=== PATIENT | female | born 1995 | race Caucasian/White ===

== ENCOUNTER 2024-05-24 08:54 | Outpatient (OUT) | payer BC, SELFPAY ==
[2024-05-24 09:29] LABS: BOX Test Reference Lab UNITY; BOX Test Sent Out UNITY
[2024-05-24 09:30] LABS: Basophils Absolute Auto 0.1 10^3/uL (0.0-0.1); Basophils Percent Auto 0.7 % (0.2-2.0); Eosinophils Absolute Auto 0.4 10^3/uL (0.0-0.7); Eosinophils Percent Auto 3.9 % (0.9-7.0); Hematocrit 39.2 % (36.0-48.0); Hemoglobin 12.8 g/dL (12.0-16.0); Immature Granulocytes Abs Auto 0.02 10^3/uL (0.00-0.03); Immature Granulocytes Pct Auto 0.2 % (0.0-0.5); Lymphocytes Absolute Auto 2.3 10^3/uL (1.2-3.8); Lymphocytes Percent Auto 22.8 % (20.5-60.0); Mean Corpuscular HGB Conc 32.7 g/dL (29.9-35.2); Mean Corpuscular Volume 79.7 fL (81.0-99.0); Mean Platelet Volume 8.8 fL (9.5-13.5); Monocytes Absolute Auto 0.5 10^3/uL (0.3-0.8); Monocytes Percent Auto 4.8 % (1.7-12.0); Neutrophils Absolute Auto 6.7 10^3/uL (1.4-6.5); Neutrophils Percent Auto 67.6 % (43.0-75.0); Platelet Count 284 10^3/uL (150-450); Red Blood Count 4.92 10^6/uL (4.20-5.40); Red Cell Distribution Width 15.8 % (11.0-15.0); White Blood Count 9.9 10^3/uL (4.0-11.0)
[2024-05-24 09:40] LABS: Estimated Average Glucose 108 mg/dL; Glycohemoglobin A1C 5.4 % (4.5-6.2)
[2024-05-25 05:07] LABS: HIV Ab/p24 Ag Screen Non Reactive (Non Reactive)
[2024-05-25 06:44] LABS: HBsAg Screen Negative (Negative); HCV Ab Non Reactive (Non Reactive)
[2024-05-25 12:08] LABS: Rapid Plasma Reagin, Quant Non Reactive titer (NonRea<1:1); Rubella Antibodies, IgG 1.01 index (Immune >0.99)
== END 2024-05-24 08:55 | disposition home or self-care (01) ==
LOC: LAB 09:01
PROVIDERS: Visit Provider Obstetrics & Gynecology
DX: Z34.90 Encounter for supervision of normal pregnancy, unspecified, unspecified trimester (principal); Z36.0 Encounter for antenatal screening for chromosomal anomalies; N92.6 Irregular menstruation, unspecified
CPT/HCPCS: 36415; 80307; 83036; 85025; 86592; 86762; 86803; 86850; 86900; 86901; 87086; 87340; 87389

== ENCOUNTER 2024-05-27 10:20 | Outpatient (REF) | payer BC, SELFPAY ==
--- OUTSIDE RECORDS SUMMARY | 2024-05-28 10:38 | XMS_ITS | CCD ---
Author Organization [facility] Care Team Providers Care Radio Tower Technician Name Role Phone DR RORO GARNER Attending Unavailable PASCUAL, DR RORO Salazar Consulting Unavailable DR RORO GARNER Admitting Unavailable MISC, DR TOPETE Primary Care Unavailable Ann-Marie Romero Primary Care Physician NO FAMILY, PHYSICIAN Primary Care Provider Aurorava MD Presley Mccarthy Admit Provider MD Presley Ortega Attending Provider [phone] NONE, XXXX Primary Care Physician Unavailab Hosea Conklin Primary Care Physician Unavail able Presley Ortega Attending Unavailable Presley Ortega Admitting Unavailable NO FAMILY, PHYSICIAN Primary Care Unavailable REY ALAS Primary Care Physician [phone] Alva Jo Attending Unavailable Jagdish Dunn Attending Unavailable DAVINA ALAS Attending Unav ailable DAVINA ALAS Attending Unav ailable DAVINA ALAS Attending Unav ailable DAVINA ALAS Attending Unav ailable DAVINA ALAS Attending Unav ailable DAVINA ALAS Referring Unav ailable DAVINA ALAS Admitting Unav ailable Alva Jo Attending Unavailable DAVINA ALAS Attending Unav ailable DAVINA ALAS Attending Unav ailable Unavailable Primary Care Provider Unavailabl e Medications Current Medications Medication Drug Class(es) Dates Sig (Normalized) Sig (Original) acetaminophen 325 mg / butalbital 50 mg / caffeine 40 mg oral tablet (17 sources) Barbiturate, Central Nervous System Stimulant, Methylxanthine Start: 09-16-2020 take 1 tablet by mouth every four hours for headache APAP/butalbital/caf feine 325 mg-50 mg-40 mg Tab 1 tab(s), Oral, q4hr for headache, 12 tab(s), Refill(s) 0, [facility]/pharmacy #[id number], 165, cm, 09/15/20 22:47:00 EDT, Height/Length Dosing, 114, kg, 09/15/20 22:47:00 EDT, Weight Dosing Start Date: 09/16/20 Status: Ordered Albuterol (Eqv-ProAir HFA) 90 mcg/inh inhalation aerosol (6 sources) Start: 07-06-2023 take 1 puff(s) by inhalation every six hours Albuterol (Eqv-ProAir HFA) 90 mcg/inh inhalation aerosol puff(s), Inhalation, q6hr, Refill(s) 0 Start Date: 07/06/23 Status: Ordered amoxicillin 500 mg oral capsule (1 source) Penicillin-class Antibacterial Start: 04-18-2024 End: 04-25-2024 take 2 capsules by mouth every twelve hours amoxicillin 500 mg Cap 1,000 mg = 2 cap(s), Oral, q12hr, X 7 day(s), # 28 cap(s), Refills(s) 0, Pharmacy: [facility]/pharmacy #[id number], 165, cm, 04/18/24 11:46:00 EST, Height/Length Dosing, 124.5, kg, 04/18/24 11:46:00 EST, Weight Dosing Start Date: 04/18/24 Stop Date: 04/25/24 Status: Ordered atogepant 60 MG Oral Tablet [Qulipta] (1 source) Start: 07-21-2023 take 1 tablet by mouth once daily Qulipta 60 mg oral tablet 60 mg = 1 tab(s), Oral, Daily, # 30 tab(s), Refills(s) 3, Pharmacy: [facility]/pharmacy #[id number], 165.1, cm, 07/08/23 12:52:00 EDT, Height/Length Dosing, 127, kg, 07/08/23 12:52:00 EDT, Weight Dosing Start Date: 07/21/23 Status: Ordered cephalexin 500 mg oral capsule (1 source) Cephalosporin Antibacterial Start: 11-10-2021 End: 11-17-2021 take 1 capsule by mouth every twelve hours Keflex 500 mg Cap 500 mg = 1 cap(s), Oral, q12hr, X 7 day(s), # 14 cap(s), Refills(s) 0, Pharmacy: [facility]/pharmacy #[id number], 165.1, cm, 11/10/21 12:16:00 EDT, Height/Length Dosing, 128, kg, 07/17/21 9:33:00 EDT, Weight Dosing Start Date: 11/10/21 Stop Date: 11/17/21 Status: Ordered ciprofloxacin 500 mg oral tablet (6 sources) Quinolone Antimicrobial Start: 02-17-2022 take 1 tablet by mouth twice daily Cipro 500 mg Tab 500 mg = 1 tab(s), Oral, BID, # 14 tab(s), Refills(s) 0, Pharmacy: [facility]/pharmacy #[id number], 165.1, cm, 02/17/22 16:15:00 EST, Height/Length Dosing, 122, kg, 02/17/22 16:15:00 EST, Weight Dosing Start Date: 02/17/22 Status: Ordered cyclobenzaprine hydrochloride 10 mg oral tablet (17 sources) Muscle Relaxant Start: 12-15-2020 take 1 tablet by mouth three times daily as needed for pain cyclobenzaprine 10 mg Tab 10 mg = 1 tab(s), Oral, TID, PRN Muscle pain, # 12 caplet(s), Refills(s) 0, Pharmacy: [facility]/pharmacy #[id number], 165, cm, 12/15/20 1:59:00 EDT, Height/Length Dosing, 113, kg, 12/15/20 1:59:00 EDT, Weight Dosing Start Date: 12/15/20 Status: Ordered diclofenac sodium 0.01 mg/mg topical gel (2 sources) Nonsteroidal Anti-inflammatory Drug Start: 01-11-2023 End: 01-18-2023 apply 2 g topically four times daily for pain, then apply 8 g topically once daily for pain Voltaren Gel 1% Gel 2 gm, Topical, QID for pain for 7 day(s), 100 gm, Refill(s) 0, not to exceed 8 grams/day/single joint of upper extremities, [id number], 165.1, cm, 01/11/23 16:14:00 EST, Height/Length Dosing, 127, kg, 01/11/23 16:14:00 EST, Weight Dosing Start Date: 01/11/23 Stop Date: 01/18/23 Status: Ordered dicyclomine hydrochloride 10 mg oral capsule (5 sources) Anticholinergic Start: 10-17-2022 take 1 capsule by mouth four times daily as needed Bentyl 10 mg Cap 10 mg = 1 cap(s), Oral, QID, PRN Other (see comment), For abdominal cramping, # 12 cap(s), Refills(s) 0, Pharmacy: [facility]/pharmacy #[id number], 165, cm, 10/17/22 13:07:00 EDT, Height/Length Dosing, 123.3, kg, 10/17/22 13:07:00 EDT, Weight Dosing Start Date: 10/17/22 Status: Ordered Flonase 0.05 mg/inh nasal spray (14 sources) Start: 09-18-2020 take 1 spray(s) nasal route once daily Flonase 0.05 mg/inh nasal spray 1 spray(s), Nasal, Daily, 16 gram, Refill(s) 3, each nostril, [facility]/pharmacy #[id number], 165, cm, 09/18/20 9:51:00 EDT, Height/Length Dosing, 116, kg, 09/18/20 9:51:00 EDT, Weight Dosing Start Date: 09/18/20 Status: Ordered fluticasone propionate 0.05 mg/actuat metered dose nasal spray (3 sources) Corticosteroid Start: 09-18-2020 take 1 spray(s) nasal route once daily Flonase 0.05 mg/inh nasal spray 1 spray(s), Nasal, Daily, 16 gram, Refill(s) 3, each nostril, [facility]/pharmacy #[id number], 165, cm, 09/18/20 9:51:00 EDT, Height/Length Dosing, 116, kg, 09/18/20 9:51:00 EDT, Weight Dosing Start Date: 09/18/20 Status: Ordered ibuprofen 600 mg oral tablet (1 source) Nonsteroidal Anti-inflammatory Drug Start: 09-14-2021 take 600 mg by mouth every six hours Ibuprofen Active 600 MG PO Q6H September 14, 2021 12:00am 12 hr loratadine 5 mg / pseudoephedrine sulfate 120 mg extended release oral tablet (1 source) alpha-Adrenergic Agonist Start: 07-08-2023 End: 07-18-2023 loratadine-pseudoep hedrine 5 mg-120 mg ER Tab 1 tab(s), Oral, q12hr for 10 day(s), 20 tab(s), Refill(s) 0, [facility]/pharmacy #[id number], 165.1, cm, 07/08/23 12:52:00 EDT, Height/Length Dosing, 127, kg, 07/08/23 12:52:00 EDT, Weight Dosing Start Date: 07/08/23 Stop Date: 07/18/23 Status: Ordered meclizine hydrochloride 25 mg oral tablet (5 sources) Antiemetic Start: 07-08-2023 take 1 tablet by mouth three times daily as needed for dizziness meclizine 25 mg Tab 25 mg = 1 tab(s), Oral, TID, PRN for dizziness, # 15 tab(s), Refills(s) 0, Pharmacy: [facility]/pharmacy #[id number], 165.1, cm, 07/08/23 12:52:00 EDT, Height/Length Dosing, 127, kg, 07/08/23 12:52:00 EDT, Weight Dosing Start Date: 07/08/23 Status: Ordered metroNIDAZOLE 500 mg oral tablet (1 source) Nitroimidazole Antimicrobial Start: 02-17-2022 End: 02-24-2022 take 1 tablet by mouth every eight hours Flagyl 500 mg Tab 500 mg = 1 tab(s), Oral, q8hr, X 7 day(s), # 21 tab(s), Refills(s) 0, Pharmacy: [facility]/pharmacy #[id number], 165.1, cm, 02/17/22 16:15:00 EST, Height/Length Dosing, 122, kg, 02/17/22 16:15:00 EST, Weight Dosing Start Date: 02/17/22 Stop Date: 02/24/22 Status: Ordered Multi Vitamins oral tablet (3 sources) Start: 07-06-2023 Multi Vitamins oral tablet 1 tab(s), Oral, Daily, 30 tab(s), Refill(s) 0 Start Date: 07/06/23 Status: Ordered naproxen 500 mg oral tablet (20 sources) Nonsteroidal Anti-inflammatory Drug Start: 12-15-2020 take 1 tablet by mouth twice daily naproxen 500 mg oral enteric coated tablet 500 mg = 1 tab(s), Oral, BID, # 28 tab(s), Refills(s) 0, Pharmacy: [facility]/pharmacy #[id number], 165, cm, 12/15/20 1:59:00 EDT, Height/Length Dosing, 113, kg, 12/15/20 1:59:00 EDT, Weight Dosing Start Date: 12/15/20 Status: Ordered Start: 10-01-2020 take 1 tablet by lencho th twice daily as needed for pain Naprosyn 500 mg Tab 500 mg = 1 tab(s), Oral, BID, PRN for pain, # 20 tab(s), Refills(s) 0, Pharmacy: [facility]/pharmacy #[id number], 165.1, cm, 11/10/21 12:16:00 EDT, Height/Length Dosing, 128, kg, 07/17/21 9:33:00 EDT, Weight Dosing Start Date: 11/10/21 Status: Ordered phenazopyridine hydrochloride 200 mg oral tablet (1 source) Start: 11-10-2021 End: 11-12-2021 take 1 tablet by mouth three times daily Pyridium 200 mg Tab 200 mg = 1 tab(s), Oral, TID, X 2 day(s), # 6 tab(s), Refills(s) 0, Pharmacy: [facility]/pharmacy #[id number], 165.1, cm, 11/10/21 12:16:00 EDT, Height/Length Dosing, 128, kg, 07/17/21 9:33:00 EDT, Weight Dosing Start Date: 11/10/21 Stop Date: 11/12/21 Status: Ordered prochlorperazine 10 mg oral tablet (3 sources) Phenothiazine Start: 01-06-2023 End: 01-13-2023 take 1 tablet by mouth three times daily Compazine 10 mg oral tablet = 1 tab(s), Oral, TID, X 7 day(s), # 21 tab(s), Refills(s) 0 Start Date: 01/06/23 Stop Date: 01/13/23 Status: Ordered promethazine hydrochloride 25 mg oral tablet (15 sources) Phenothiazine Start: 06-04-2021 take 1 tablet by mouth every six hours promethazine 25 mg Tab 25 mg = 1 tab(s), Oral, q6hr, # 14 tab(s), Refills(s) 0, Pharmacy: [facility]/pharmacy #[id number], 165, cm, 06/04/21 14:38:00 EDT, Height/Length Dosing, 123, kg, 06/04/21 14:38:00 EDT, Weight Dosing Start Date: 06/04/21 Status: Ordered tiZANidine 4 mg oral tablet (2 sources) Central alpha-2 Adrenergic Agonist Start: 01-11-2023 End: 01-16-2023 take 1 tablet by mouth every eight hours Zanaflex 4 mg Tab 4 mg = 1 tab(s), Oral, q8hr, X 5 day(s), # 15 tab(s), Refills(s) 0, Pharmacy: [facility]/pharmacy #[id number], 165.1, cm, 01/11/23 16:14:00 EST, Height/Length Dosing, 127, kg, 01/11/23 16:14:00 EST, Weight Dosing Start Date: 01/11/23 Stop Date: 01/16/23 Status: Ordered Ventolin HFA 90 mcg/inh Aerosol-Adpt (1 source) Start: 04-18-2024 take 1 puff(s) by inhalation every six hours for wheezing Ventolin HFA 90 mcg/inh Aerosol-Adpt 1 puff(s), Inhalation, q6hr for wheezing, 18 gram, Refill(s) 0, [facility]/pharmacy #[id number], 165, cm, 04/18/24 11:46:00 EST, Height/Length Dosing, 124.5, kg, 04/18/24 11:46:00 EST, Weight Dosing Start Date: 04/18/24 Status: Ordered Zofran ODT 4 mg Tab-Dis (20 sources) Start: 10-17-2022 take 1 tablet by mouth every eight hours as needed for nausea Zofran ODT 4 mg Tab-Dis 4 mg = 1 tab(s), Oral, q8hr, PRN Nausea/Vomiting, # 16 tab(s), Refills(s) 0, [id number], cm, 10/17/22 13:07:00 EDT, Height/Length Dosing, 123.3, kg, 10/17/22 13:07:00 EDT, Weight Dosing Start Date: 10/17/22 Status: Ordered Start: 02-17-2022 take 1 tablet by lencho every six hours as needed for nausea Zofran ODT 4 mg Tab-Dis 4 mg = 1 tab(s), Oral, q6hr, PRN Nausea/Vomiting, # 12 tab(s), Refills(s) 0, [id number], 165.1, cm, 02/17/22 16:15:00 EST, Height/Length Dosing, 122, kg, 02/17/22 16:15:00 EST, Weight Dosing Start Date: 02/17/22 Status: Ordered Start: 02-25-2021 take 1 tablet by [facility] every eight hours Zofran ODT 4 mg Tab-Dis 4 mg = 1 tab(s), Oral, q8hr, # 12 tab(s), Refills(s) 0, [id number], 165, cm, 02/24/21 23:21:00 EST, Height/Length Dosing, 112, kg, 02/24/21 23:21:00 EST, Weight Dosing Start Date: 02/25/21 Status: Ordered Start: 09-16-2020 take 1 tablet by [facility] every eight hours Zofran ODT 4 mg Tab-Dis 4 mg = 1 tab(s), Oral, q8hr, # 10 tab(s), Refills(s) 0, Pharmacy: [facility]/pharmacy #[id number], 165, cm, 09/15/20 22:47:00 EDT, Height/Length Dosing, 114, kg, 09/15/20 22:47:00 EDT, Weight Dosing Start Date: 09/16/20 Status: Ordered Completed/Discontinued Medications Medication Drug Class(es) Dates Sig (Normalized) Sig (Original) sodium chloride 0.111 meq/ml nasal spray (17 sources) Start: 09-18-2020 [place] Saline Mist 0.65% nasal spray 2 spray(s), Nasal, QID, 1 EA, Refill(s) 4, [facility]/pharmacy #[id number], 165, cm, 09/18/20 9:51:00 EDT, Height/Length Dosing, 116, kg, 09/18/20 9:51:00 EDT, Weight Dosing Start Date: 09/18/20 Status: Ordered Start: 09-18-2020 [place] Saline Mis t 0.65% nasal spray 2 spray(s), Nasal, QID, 1 EA, Refill(s) 4, [id number], 165, cm, 09/18/20 9:51:00 EDT, Height/Length Dosing, 116, kg, 09/18/20 9:51:00 EDT, Weight Dosing Start Date: 09/18/20 Status: Ordered SUMAtriptan 25 mg oral tablet (6 sources) Serotonin-1b and Serotonin-1d Receptor Agonist Start: 07-06-2023 SUMAtriptan 25 mg Ta b 25 mg = 1 tab(s), Oral, Daily, PRN for migraine headache, may repeat dose after 2 hours up to a maximum of 200 mg in 24 hours, # 9 tab(s), Refills(s) 1, [id number] 165, cm, 07/06/23 8:52:00 EDT, Height/Length Dosing, 125.8, kg, 07/06/23 8:52:00 EDT, Weight Dosing Start Date: 07/06/23 Status: Ordered Problems Active Problems Problem Classification Problem Date Documented Da te Episodic/Chronic Abdominal pain (2 sources) Abdominal pain; Translations: [Unspecified abdominal pain] Onset: 02-17-2022 Episodic Asthma (20 sources) Asthma 08-02-2013 Chronic Conditions associated with dizziness or vertigo (20 sources) Dizziness; Translations: [Dizziness and giddiness] Onset: 07-08-2023 09-30-2020 Episodic Headache; including migraine (13 sources) Migraine; Translations: [Migraine, unspecified, not intractable, without status migrainosus] Onset: 01-06-2023 Chronic Headache; including migraine (2 sources) Headache; Translations: [Headache, unspecified] Onset: 01-08-2023 Episodic Malaise and fatigue (1 source) Weakness; Translations: [WEAKNESS] Onset: 02-16-2021 Episodic Menstrual disorders (1 source) Missed period; Translations: [Irregular menstruation, unspecified] 05-17-2024 Chronic Nausea and vomiting (4 sources) Nausea with vomiting, unspecified; Translations: [Nausea and vomiting] Onset: 02-16-2021 Episodic Noninfectious gastroenteritis (1 source) Noninfectious enteritis; Translations: [Noninfective gastroenteritis and colitis, unspecified] Onset: 02-17-2022 Episodic Other aftercare (20 sources) Surgical follow-up 10-03-2020 Episodic Other and unspecified benign neoplasm (1 source) Melanocytic nevus; Translations: [Melanocytic nevi, unspecified] Onset: 10-10-2023 Episodic Other and unspecified benign neoplasm (3 sources) Benign neoplasm of soft tissue 10-10-2023 Episodic Other complications of (4 sources) Other specified related conditions, first trimester; Translations: [OTH SPEC PREG RELATED COND 1ST TRI] Onset: 02-11-2021 Episodic Other complications of (1 source) Vomiting of ; Translations: [Vomiting of , unspecified] Episodic Other complications of (1 source) Complication of , childbirth and/or the puerperium; Translations: [Other specified diseases and conditions complicating childbirth] Episodic Other connective tissue disease (2 sources) Pain of right lower leg; Translations: [Pain in right lower leg] Onset: 07-17-2021 Episodic Other connective tissue disease (2 sources) Pain of left lower leg; Translations: [Pain in left lower leg] Onset: 07-17-2021 Episodic Other endocrine disorders (20 sources) Polycystic ovary syndrome 04-16-2019 Chronic Other female genital disorders (2 sources) History of past delivery; Translations: [Status post vaginal delivery] 09-14-2021 Episodic Other gastrointestinal disorders (1 source) Diarrhea; Translations: [Diarrhea, unspecified] Onset: 10-17-2022 Episodic Other liver diseases (20 sources) Enzyme level - finding 11-12-2019 Episodic Other nutritional; endocrine; and metabolic disorders (6 sources) Body mass index 40+ - severely obese; Translations: [Body mass index (BMI) 40.0-44.9, adult] Onset: 05-13-2021 Chronic Other nutritional; endocrine; and metabolic disorders (1 source) Morbid obesity; Translations: [Morbid (severe) obesity due to excess calories] Onset: 07-06-2023 Chronic Other and delivery including normal (3 sources) Normal ; Translations: [Encounter for supervision of normal , unspecified, unspecified trimester] Onset: 06-04-2021 Episodic Other skin disorders (20 sources) Mass of skin 02-13-2020 Episodic Other upper respiratory infections (3 sources) Acute pharyngitis; Translations: [Acute pharyngitis, unspecified] Onset: 05-13-2021 Episodic Otitis media and related conditions (20 sources) Otitis media 09-30-2020 Episodic Pneumonia (except that caused by tuberculosis or sexually transmitted disease) (1 source) Pneumonia; Translations: [Pneumonia, unspecified organism] Onset: 04-18-2024 Episodic Residual codes; unclassified (1 source) 9 weeks gestation of ; Translations: [9 WEEKS GESTATION OF ] Onset: 02-16-2021 Episodic Residual codes; unclassified (1 source) General finding of observation of patient; Translations: [Other general symptoms and signs] Onset: 05-13-2021 Episodic Residual codes; unclassified (1 source) Gestation period, 27 weeks; Translations: [27 weeks gestation of ] Episodic Residual codes; unclassified (1 source) Gestation period, 32 weeks; Translations: [32 weeks gestation of ] Episodic Residual codes; unclassified (1 source) Gestation period, 40 weeks; Translations: [40 weeks gestation of ] 09-13-2021 Episodic Residual codes; unclassified (1 source) 40 weeks gestation of ; Translations: [ state, incidental] 09-14-2021 Episodic Residual codes; unclassified (1 source) Patient encounter status; Translations: [Other specified health status] Onset: 07-06-2023 Episodic Screening and history of mental health and substance abuse codes (1 source) Personal history of nicotine dependence; Translations: [PERSONAL HISTORY OF NICOTINE DEPEND] Onset: 02-16-2021 Episodic Sprains and strains (1 source) Injury of muscle and tendon at neck level; Translations: [Strain of muscle, fascia and tendon at neck level, initial encounter] Onset: 01-11-2023 Episodic Substance-related disorders (1 source) Smoker 04-18-2024 Chronic Comment on above: Added secondary to d ocumentation in Social History. Unclassified (1 source) Obesity complicating , third trimester; Translations: [Obesity complicating , third trimester] Onset: 09-11-2021 Urinary tract infections (1 source) Urinary tract infectious disease; Translations: [Urinary tract infection, site not specified] Onset: 11-10-2021 Episodic Past or Other Problems Problem Classification Problem Date Documented Da te Episodic/Chronic Unclassified (20 sources) Onset: 11-01-2020 Resolved: 11-14-2021 06-13-2021 Results Test Name Value Interpretation Reference Range Facility BOX TESTon 05-24-2024 BOX TEST SENT OUT [facility] BOX1 [facility] BOX2 05[facility]24[facility]) Ql (U)o n 05-22-2024 Interpretation and review of laboratory results Abnormal [facility] Preg Test, Ur Positive Negative [facility] US Pelvis transvaginalon EXAM: US OB TRANSVAGINAL HISTORY: Dating. LMP unknown. COMPARISON: None available. TECHNIQUE: Two-dimensional transvaginal grayscale ultrasound imaging of the pelvis was performed. Color Doppler evaluation of the ovaries was also performed. FINDINGS: The uterus demonstrates a normal homogeneous echotexture. The cervix measures 5.7 cm in length and the cervical os is closed. There are multiple nabothian cysts within the cervix. The right ovary measures 4.1 x 0.9 x 2.6 cm and demonstrates a normal echotexture. There is normal color Doppler flow. The left ovary is not visualized. No fluid is present within the cul-de-sac. There is a single, live intrauterine gestation identified with a heart rate of 169 beats per minute and a crown-rump length measurement of 4.2 cm, correlating to a gestational age of 11 weeks 1 days (+/- 7 days). There is no subchorionic hemorrhage visualized. A yolk sac is visualized. IMPRESSION: 1. Single, live intrauterine gestation with today's ultrasound measurements correlating to a gestational age of 11 weeks 1 days (+/- 7 days). JANNY by today's ultrasound is 11/16/2024. 2. Normal color Doppler evaluation of the right ovary, the left ovary was not visualized. Electronically Signed:Electronicall y signed by UNA DARNELL II, MD, PHD at 20-May-2024 10:38:05 PM [facility] Una Darnell MD - 05/20/2024 EXAM: US OB TRANSVAGINAL HISTORY: Dating. LMP unknown. COMPARISON: None available. TECHNIQUE: Two-dimensional transvaginal grayscale ultrasound imaging of the pelvis was performed. Color Doppler evaluation of the ovaries was also performed. FINDINGS: The uterus demonstrates a normal homogeneous echotexture. The cervix measures 5.7 cm in length and the cervical os is closed. There are multiple nabothian cysts within the cervix. The right ovary measures 4.1 x 0.9 x 2.6 cm and demonstrates a normal echotexture. There is normal color Doppler flow. The left ovary is not visualized. No fluid is present within the cul-de-sac. There is a single, live intrauterine gestation identified with a heart rate of 169 beats per minute and a crown-rump length measurement of 4.2 cm, correlating to a gestational age of 11 weeks 1 days (+/- 7 days). There is no subchorionic hemorrhage visualized. A yolk sac is visualized. IMPRESSION: 1. Single, live intrauterine gestation with today's ultrasound measurements correlating to a gestational age of 11 weeks 1 days (+/- 7 days). JANNY by today's ultrasound is 11/16/2024. 2. Normal color Doppler evaluation of the right ovary, the left ovary was not visualized. Electronically Signed:Cuauhtemoc darling signed by UNA DARNELL II, MD, PHD at 20-May-2024 10:38:05 PM [facility] US Pelvis transvaginalOrdere d By: Una Darnell on 05-20-2024 [facility] Work Phone: US OB TRANSVAGINALon [phone] US OB TRANSVAGINAL EXAM: US OB TRANSVAGINAL HISTORY: Dating. LMP unknown. COMPARISON: None available. TECHNIQUE: Two-dimensional transvaginal grayscale ultrasound imaging of the pelvis was performed. Color Doppler evaluation of the ovaries was also performed. FINDINGS: The uterus demonstrates a normal homogeneous echotexture. The cervix measures 5.7 cm in length and the cervical os is closed. There are multiple nabothian cysts within the cervix. The right ovary measures 4.1 x 0.9 x 2.6 cm and demonstrates a normal echotexture. There is normal color Doppler flow. The left ovary is not visualized. No fluid is present within the cul-de-sac. There is a single, live intrauterine gestation identified with a heart rate of 169 beats per minute and a crown-rump length measurement of 4.2 cm, correlating to a gestational age of 11 weeks 1 days (+/- 7 days). There is no subchorionic hemorrhage visualized. A yolk sac is visualized. IMPRESSION: 1. Single, live intrauterine gestation with today's ultrasound measurements correlating to a gestational age of 11 weeks 1 days (+/- 7 days). JANNY by today's ultrasound is 11/16/2024. 2. Normal color Doppler evaluation of the right ovary, the left ovary was not visualized. Electronically Signed:Electronicall y signed by UNA DARNELL II, MD, PHD at 20-May-2024 10:38:05 PM [facility] Normal Not Available Comment on above: Order Comment: US OB TRANSVAGINAL No LMP recorded. US Pelvis transvaginalon Radiology Study observation (narrative) [facility] Ambulatory [facility] Summaryon 0 04-27-2024 Ambulatory Visit Summary Ambulatory Visit Summary SABRINA TOVAR :1995 Visit Date:04/27/2024 Ambulatory Visit Instructions Your Diagnosis asthma BMI 45.0-49.9, adult Morbid obesity Your Care Team Attending Physician - JOAQUÍN RODRIGUEZ Primary Care Physician - JOAQUÍN RODRIGUEZ This Is Your Medications List Non-Formulary Medication ( Vitamins) albuterol (Albuterol (Eqv-ProAir HFA) 90 mcg/inh inhalation aerosol) albuterol (Ventolin HFA 90 mcg/inh Aerosol-Adpt) albuterol-ipratropiu m (DuoNeb 2.5 mg-0.5 mg/3 mL Soln-Inh) meclizine (meclizine 25 mg Tab) predniSONE (predniSONE 10 mg Tab) Procedures Performed Cholecystectomy, denies. Discharge Vitals Heart Rate (Peripheral) 82 Respiratory Rate 16 Blood Pressure 112/82 Height 165 cm Height 65 in Weight 126 kg Weight 277.782 lb BMI 46.28 Medications What How Much When Why Instructions New albuterol-ipratropiu m (DuoNeb 2.5 mg-0.5 mg/ 3 mL Soln-Inh) 3 Milliliter Inhalation 4 times a day asthma Refills: 2 Pickup at [facility]/pharmacy #[id number] New predniSONE (predniSONE 10 mg Tab) See instructions asthma take 2 tabs by mouth for 3 days, then take 1 tab by mouth for 3 days, then stop Pickup at [facility]/pharmacy #[id number] Unchanged albuterol (Albuterol (Eqv-ProAir HFA) 90 mcg/ inh inhalation aerosol) Inhalation Every 6 hours Unchanged albuterol (Ventolin HFA 90 mcg/ inh Aerosol-Adpt) 1 Puffs Inhalation Every 6 hours as needed for for wheezing Unchanged meclizine (meclizine 25 mg Tab) 1 Tablets By Mouth 3 times a day as needed for for dizziness Unchanged Non-Formulary Medication ( Vitamins) Pharmacy Information [facility]/pharmacy #[id number]: [address] [place], [place] [phone] Allergies No Known Allergies Problems Ongoing - Any problem that you are currently receiving treatment for. asthma Bilateral otitis media Complicated migraine Dizziness Elevated transaminase level Mass of skin Migraine Nevus Polycystic ovary syndrome Smoker Visit for suture removal Historical - Any problem that you are no longer receiving treatment for. BMI 40.0-44.9, adult Patient Survey You may receive a survey via text or e-mail asking about your office visit. Please share your experience with us by completing your survey. We appreciate your feedback and thank you for choosing us for your care. Normal [facility] Office/Clini c Noteon 04-27-2024 Family Medicine Office/Clinic Note Family Medicine Office/Clinic Note HPI Staff Patient is a 28 y.o. female presenting for wheezing JASON 10/10/23 H/A- start magnesium and Ubrelvy. MRI ordered 10/19/23- MRI head completely normal Last routine labs: 01/11/23 smoker status: never Pap (21-64yo): thinks she is 8 weeks , first appt with Dr. Charles 05/18/24. 3 Home Tests came back positive. OBGYN: Dr. Charles flu vaccine status: DUE Concerns today: Patient thinks she is . ER for cough, congestion. fatigue 04/18/24. Viral swabs negative, rx'd albuterol inhaler and amox BID x7 days. Finished full course of amox. Albuterol Inhaler- using prn. Right now using BID. Feels tightness in chest, hard to breathe, has to focus to take a deep breath. I have a little bit of a cough it is very infrequent but when I do cough it is always a dry cough. States when she coughs she feels stuff rattling in her chest but nothing comes up, cannot take cold medicine due to thinking she might be . History of Present Illness Sabrina is a 28 year old female who was in the ED on April 18 for pneumonia. She was treated with a course of amxicillin and an albuterol inhaler. Today she feels like she is having difficulty taking a deep breath, she feels SOB, and she has a non productive cough. She feels like she has improved some since taking the abx. She is 8 weeks at this time so intervention is limited today. She has not been seen by OB yet. I am going to give her a very short course of prednisone and we discussed this at length - prior to her taking it, she is going to consult OB. Additionally, I gave her a nebulizer machine and showed her how to use it. She will use this q6H prn SOB. She stated understanding. Staff HPI reviewed and accurate Review of Systems PHQ Score Initial Depression Screen Score: 0 SCORE Physical Exam Vitals & Measurements HR: 82(Peripheral) RR: 16 BP: 112/82 SpO2: 99% HT: 65 in HT: 165 cm WT: 126 kg WT: 277.782 lb BMI: 46.28 lungs: diminished t/o. right posterior upper lobe sonorous wheeze w/ expiration. mild SOB at rest Assessment/Plan 1. asthma (J45.909: Unspecified asthma, uncomplicated) nebulizer as needed prednisone as prescribed she will consult OB prior to starting prednisone fu 1 w if no improvement - may have to consider long acting inhaler Ordered: albuterol-ipratropiu m, 3 mL, Inhalation, QID, 30 EA, Refill(s) 2, [id number], 165, cm, 04/27/24 9:52:00 EDT, Height/Length Dosing, 126, kg, 04/27/24 9:52:00 EDT, Weight Dosing predniSONE, See Instructions, take 2 tabs by mouth for 3 days, then take 1 tab by mouth for 3 days, then stop, # 9 tab(s), Refills(s) 0, [id number] 165, cm, 04/27/24 9:52:00 EDT, Height/Length Dosing, 126, kg, 04/27/24 9:52:00 EDT, Weight Dosing BMI 45.0-49.9, adult (Z68.42: Body mass index [BMI] 45.0-49.9, adult) stable Morbid obesity (E66.01: Morbid (severe) obesity due to excess calories) Ordered: sumatriptan, 25 mg = 1 tab(s), Oral, Daily, PRN for migraine headache, may repeat dose after 2 hours up to a maximum of 200 mg in 24 hours, # 9 tab(s), Refills(s) 1, [id number], 165, cm, 07/06/23 8:52:00 EDT, Height/Length Dosing, 125.8, kg, 06/15... Follow-up No qualifying data available Problem List/Past Medical History Ongoing asthma Bilateral otitis media Complicated migraine Dizziness Elevated transaminase level Mass of skin Migraine Nevus Polycystic ovary syndrome Smoker Visit for suture removal Historical BMI 40.0-44.9, adult Procedure/Surgical History Cholecystectomy, denies. Medications Albuterol (Eqv-ProAir HFA) 90 mcg/inh inhalation aerosol, Inhalation, q6hr DuoNeb 2.5 mg-0.5 mg/3 mL Soln-Inh, 3 mL, Inhalation, QID, 2 refills meclizine 25 mg Tab, 25 mg= 1 tab(s), Oral, TID, PRN predniSONE 10 mg Tab, See Instructions Vitamins Ventolin HFA 90 mcg/inh Aerosol-Adpt, 1 puff(s), Inhalation, q6hr, PRN Allergies No Known Allergies Social History Alcohol - Denies Alcohol Use, 04/16/2019 Past, 1-2 times per month, 04/27/2024 Substance Abuse - Denies Substance Abuse, 11/19/2016 Never, 04/27/2024 Tobacco - Denies Tobacco Use, 04/16/2019 Never (less than 100 in lifetime) Tobacco Use:. Never Smokeless Tobacco Use:. Household tobacco concerns: No., 04/27/2024 Family History Acute myocardial infarction: Mother. Cervical cancer: Mother. Diabetes mellitus type 2: Mother. Immunizations Vaccine Date Status Comments influenza virus vaccine, inactivated - Not Given Patient Refuses diphtheria/pertussis , acel/tetanus adult 09/13/2021 Recorded SARS-CoV-2 (COVID-19) mRNA-1273 vaccine 10/09/2020 Recorded 2023-01-14: TPVAL diphtheria/pertussis , acel/tetanus adult 09/29/2020 Given (L) deltoid influenza virus vaccine, inactivated 11/26/2011 Recorded influenza virus vaccine, inactivated 02/12/2004 Recorded influenza virus vaccine, inactivated 03/01/2003 Recorded varicella virus vac (more content not included)... Normal [facility] Comment on above: Result Comment: Elec tronically Signed By: JOAQUÍN RODRIGUEZ\.br\Date and Time Signed: 04/27/24 10:37 EDT ED Clinical Summaryon 2024 ED Clinical Summary ED Clinical Summary [place] [id number] ED Clinical Summary Person Information Name: SABRINA TOVAR [place] Age: 28 Years : 1995 Sex: Female Language: Serbian PCP: JOAQUÍN RODRIGUEZ Marital Status: Phone: [phone] Visit Id: Visit Reason: Weakness or fatigue; Sinus Pain/Congestion; Cough; CONGESTION - COUGH - POSS WHEEZING Speciality: Acuity: 4 Enc Type: Emergency Med Service: Emergency Arrival: 04/18/2024 11:36:25 Discharge: 04/18/2024 14:09:55 LOS: 000 02:33 Checkin: 04/18/2024 11:36:25 Checkout: 04/18/2024 14:09:55 Dispo Type: Home (Routine DC) EVENTS: Event Name Event Status Request Date/Time Start Date/Time Complete Date/Time Arrive Complete 04/18/2024 11:36:25 04/18/2024 11:36:25 04/18/2024 11:36:25 Document Home Meds Request 04/18/2024 11:36:25 Triage Complete 04/18/2024 11:36:25 04/18/2024 11:46:16 04/18/2024 11:46:16 Registration Complete 04/18/2024 11:40:34 04/18/2024 11:40:34 04/18/2024 11:40:34 Reg Complete Request 04/18/2024 11:40:34 Reg Bed Request Complete 04/18/2024 11:40:34 04/18/2024 11:40:34 04/18/2024 11:40:34 Dr Exam Complete 04/18/2024 11:40:43 04/18/2024 11:40:43 04/18/2024 11:40:43 Registration Complete 04/18/2024 11:40:43 04/18/2024 11:41:08 04/18/2024 11:41:17 Bed Assign Complete 04/18/2024 11:41:08 04/18/2024 11:41:08 04/18/2024 11:41:08 RN Exam Complete 04/18/2024 11:41:08 04/18/2024 12:05:06 04/18/2024 12:05:06 Dr Exam Complete 04/18/2024 11:41:17 04/18/2024 11:41:17 04/18/2024 11:41:17 Registration Complete 04/18/2024 11:41:17 04/18/2024 11:41:37 04/18/2024 11:41:37 Dr Exam Complete 04/18/2024 11:41:34 04/18/2024 11:41:34 04/18/2024 11:41:34 EKG Cancel 04/18/2024 11:45:16 04/18/2024 11:49:48 Pending Labs Complete 04/18/2024 11:59:16 04/18/2024 13:43:13 Swab Complete 04/18/2024 11:59:16 04/18/2024 13:39:50 Lab Complete 04/18/2024 11:59:16 04/18/2024 13:43:13 Discharge Complete 04/18/2024 13:47:36 04/18/2024 14:10:02 04/18/2024 14:10:02 Transfer Complete 04/18/2024 14:10:02 04/18/2024 14:10:02 04/18/2024 14:10:02 ADDRESS: [address] [place] [id number] PHYS DOC NOTES: MEDICAL INFORMATION: Prescriptions Given: New Medications [id number] [address] [place], [place] [id number], [phone] amoxicillin (amoxicillin 500 mg Cap) 2 Capsules By Mouth every 12 hours for 7 Days. Refills: 0. Medications to Continue with No Changes Other Medications albuterol (Albuterol (Eqv-ProAir HFA) 90 mcg/inh inhalation aerosol) Inhalation every 6 hours. meclizine (meclizine 25 mg Tab) 1 Tablets By Mouth 3 times a day as needed for dizziness. Refills: 0. naproxen (Naprosyn 500 mg Tab) 1 Tablets By Mouth 2 times a day as needed for pain. Refills: 0. sumatriptan (SUMAtriptan 25 mg Tab) 1 Tablets By Mouth every day as needed for migraine headache. may repeat dose after 2 hours up to a maximum of 200 mg in 24 hours. Refills: 1. PATIENT EDUCATION INFORMATION: Instructions: Community-Acquired Pneumonia, Adult, Fimu-da-Piir Follow up: With: Address: When: REY ALAS [address] [place] [address] Business (1) In 3 days 04/21/2024 Comments: Call Dr for diagnosis based follow up DIAGNOSIS: Pneumonia Normal [facility] ED Note-Physicianon 04-19-19 ED Note-Physician ED Note-Physician Basic Information Time Seen: Mark Jackman PA-C 04/18/2024 11:40 Chief Complaint cold for 1 week, getting worse. cough, congestion and fatigue 6wks ob History of Present Illness Patient is a 28 year old female with a PMH of asthma, migraine and PCOS presenting with worsening cough, congestion and fatigue for the last week. Patient states she is currently 6 weeks . Patient has tried Tylenol without any relief of her symptoms. Patient says her cough has been worse but denied producing any sputum. Patient denies any fever, chills, headache, abdominal pain and ear pain. Patient is worried about her increasing congestion and fatigued. Patient states she ran out of her inhaler two days ago but her inhaler has not helped her symptoms. No other aggravating or relieving factors no other associated symptoms no other prior treatments or complaints. Review of Systems No other aggravating or relieving factors no other associated symptoms no other prior treatments or complaints. Family: Reviewed and noncontributory Social: lives at home Review of systems negative unless otherwise specified in the HPI. Physical Exam Vitals & Measurements T: 36.7 ???C(Oral) HR: 106(Peripheral) RR: 22 BP: 144/94 SpO2: 98% HT: 165 cm WT: 124.5 kg BMI: 45.73 General: The patient appears well and in no apparent distress. Patient is resting comfortably in chair. Skin: Warm, dry, no pallor noted. Head: Normocephalic, atraumatic Neck: No JVD Eye: PERRLA, EOMI ENT: Moist mucus membranes Cardiovascular: Regular rate normal peripheral perfusion Respiratory: No respiratory distress no accessory muscle use, Afebrile lung sounds clear to auscultation Chest Wall: no deformity Musculoskeletal: normal ROM, no deformity, no swelling GI: Soft no obvious distention. No rebound or rigidity. No guarding. No tenderness. Neurological: A&O moves all extremities equal strength and symmetry Psychiatric: Cooperative and appropriate Medical Decision Making MEDICAL DECISION MAKING Number and Complexity of Problems Differential Diagnosis: [] [facility] Data External documents reviewed: [] My EKG interpretation: [] My CT interpretation: [] My X-ray interpretation: [] My Ultrasound interpretation: [] Decision rules/scores evaluated: [] Discussed with: [] Treatment and Disposition ED Course: 28-year-old female reports Emergency Department with concerns of cough and congestion. Has been on for over a week. Reports that she has not had any fevers. Reports that she is only been taking Tylenol as she is approximately 6 weeks . Is concerned for possible pneumonia. Does not want an x-ray. Denies any allergies. Exam the patient is rather benign. Due to concerns we do some swab. Viral swabs are negative. Due to lack of symptoms, discussed likely pneumonia. Patient was prescribed her albuterol inhaler as well as amoxicillin for antibiotic coverage. She was understanding. Follow-up with your primary care provider in 3 to 5 days. If symptoms worsen, do not improve, or new symptoms arise please report back to emergency department for further evaluation. The patient was understanding and agreeable to plan moving forward. Mark Fitzpatrick PA-C had a [id number] interaction with the patient. I personally performed a physical exam and medical decision making. I have verified the documentation by the student as accurately representing the information obtained. Shared decision making: [] Code status: [] Assessment/Plan Pneumonia (J18.9: Pneumonia, unspecified organism) Orders: albuterol, 1 puff(s), Inhalation, q6hr for wheezing, 18 gram, Refill(s) 0, [id number], 165, cm, 04/18/24 11:46:00 EST, Height/Length Dosing, 124.5, kg, 04/18/24 11:46:00 EST, Weight Dosing amoxicillin, 1,000 mg = 2 cap(s), Oral, q12hr, X 7 day(s), # 28 cap(s), Refills(s) 0, [id number], 165, cm, 04/18/24 11:46:00 EST, Height/Length Dosing, 124.5, kg, 04/18/24 11:46:00 EST, Weight Dosing Influenza A&B Ag Rapid COVID Antigen ([facility]) Disposition Plan Patient Discharge Condition stable Discharge Disposition to home Discharge Prescription List Prescriptions amoxicillin 500 mg Cap, 1000 mg= 2 cap(s), Oral, q12hr Ventolin HFA 90 mcg/inh Aerosol-Adpt, 1 puff(s), Inhalation, q6hr, PRN Follow-up With When Contact Information REY ALAS In 3 days 04/21/2024 EST [address] [facility] [address] [place] [address]- Business (1) Additional Instructions: Call Dr for diagnosis based follow up Patient Education Community-Acquired Pneumonia, Adult, Nnma-ta-Ipaf Attestation Patient seen and evaluated by the physician microbiology lab assistant. Attending physician was present in the emergency department and supervised care. This visit was performed by both the physician and an APC. I performed all aspects of the MDM as documented. This report was transcribed using voice recognition software. Every effo (more content not included)... Normal [facility] Comment on above: Result Comment: Elec tronically Signed By: Alva Jo M.D.\.br\Date and Time Signed: 04/18/24 18:02 EST\.br\Electronically Co-Signed By: Mark Jackman PA-C\.br\Date and Time Co-Signed: 04/18/24 16:19 EST ED Patient Summaryon 025 ED Patient Summary ED Patient Summary [address] [address] Patient Discharge Instructions Person Information Name: SABRINA TOVAR Princess Age: 28 Years Arrival Date: 04/18/2024 11:36:25 Discharge Diagnosis: Pneumonia Primary Care Physician: JOAQUÍN RODRIGUEZ Provider Information Primary Provider: Alva Jo M.D. Advanced Pathology Technologist:Mark Jackman PA-C. The exam and treatment you received in the Emergency Department were for an urgent problem and are not intended as complete care. It is important that you follow up with a doctor, nurse practitioner, or physician???s microbiology lab assistant for ongoing care. If your symptoms become worse or you do not improve as expected and you are unable to reach your usual health care provider, you should return to the Emergency Department. We are available 24 hours a day. SABRINA TOVAR has been given the following list of patient education materials, prescriptions and follow-up instructions: Follow-up Instructions: With: Address: When: REY ALAS [address] [place] [address] Business (1) In 3 days 04/21/2024 Comments: Call Dr for diagnosis based follow up In the event that this physician does not participate in your insurance network, please consult with your insurance company to find a nearby participating provider. Patient Education Materials: Community-Acquired Pneumonia, Adult, Icdp-px-Qkhu A MESSAGE TO ALL PATIENTS REGARDING OPIOIDS PRESCRIPTION OPIOIDS: WHAT YOU NEED TO KNOW Prescription opioids can be used to help relieve hizhegho-ie-zhudds pain and are often prescribed following a surgery or injury, or for certain health conditions. These medications can be an important part of the treatment but also come with serious risks. It is important to work with your healthcare provider to make sure you are getting the safest, most effective care. WHAT ARE THE RISKS AND SIDE EFFECTS OF OPIOID USE? Prescription opioids carry serious risks of addiction and overdose, especially with prolonged use. An opioid overdose, often marked by slowed breathing, can cause sudden . The use of prescription opioids can have a number of side effects as well, even when taken as directed: ??? Tolerance???meaning you might need to take more of the medication for the same pain relief ??? Physical dependence???meaning you have symptoms of withdrawal when a medication is stopped ??? Increased sensitivity to pain ??? Constipation ??? Nausea, vomiting, and dry mouth ??? Sleepiness and dizziness ??? Confusion ??? Depression ??? Low levels of testosterone that can result in lower sex drive, energy, and strength ??? Itching and sweating RISKS ARE GREATER WITH: ??? History of drug misuse, substance use disorder, or overdose ??? Mental health conditions (such as depression or anxiety) ??? Sleep apnea ??? Older age (65 years and older) ??? Avoid alcohol while taking prescription opioids. Also, unless specifically advised by your health care provider, medications to avoid include: ??? Benzodiazepines (such as Xanax or Valium) ??? Muscle relaxants (such as Soma or Flexeril) ??? Hypnotics (such as Ambien or Lunesta) ??? Other prescription opioids KNOW YOUR OPTIONS Talk to your health care provider about ways to manage your pain that don???t involve prescription opioids. Some of these options may actually work better and have fewer risks and side effects. Options may include: ??? Pain relievers such as acetaminophen, ibuprofen, and naproxen ??? Some medication that are also used for depression or seizures ??? Physical therapy and exercise ??? Cognitive behavioral therapy, a psychological, goal-directed approach, in which patients learn how to modify physical, behavioral, and emotional triggers of pain and stress. IF YOU ARE PRESCRIBED OPIOIDS FOR PAIN: ??? Never take opioids in greater amounts or more often than prescribed. ??? Follow up with your primary health care provider. o Work together to create a plan on how to manage your pain. o Talk about ways to help manage your pain that don???t involve prescription opioids. o Talk about any and all concerns and side effects. ??? Help prevent misuse and abuse o Never sell or share prescription opioids. o Never use another person???s prescription opioids. ??? Store prescription opioids in a secure place and out of reach of others (this may include visitors, children, friends, and family). ??? Safely dispose of unused prescription opioids: Find your community drug take-back program or your pharmacy mail-back program, or flush them down the toilet, following guidance from the Food and Drug Administration (www.fda.gov/Drugs/R esourcesForYou). ??? Visit www.cdc.gov/drugover dose to learn about the risks of opioids abuse and overdose. ??? If you (more content not included)... Normal [facility] Influenza A&B Agon Influenzae A Ag Negative Normal Negative [facility] Comment on above: Performed By: #### 1 [id number] #### [facility] [address] [place] [address] Influenzae B Ag Negative Normal Negative [facility] Comment on above: Result Comment: Test sensitivity and specificity vary for age group, specimen type, antigen types, and prevalence of disease. Test results must be evaluated in conjunction with other clinical data available to the physician. Individuals who received nasally administered Influenza A vaccine may have positive test results up to 3 days after vaccination. Performed By: #### 1 [id number] #### [facility] [address] [place] [address] MICRO OTHER TESTSOrdered By: Mary Sears on 04-18-2024 Influenzae A Ag Negative (04/18/24 12:06 PM) Normal Negative [facility] Man Sero Influenzae B Ag Negative 1 (04/18/24 12:06 PM) Normal Negative [facility] Comment on above: Interpretive Data: T est sensitivity and specificity vary for age group, specimen type, antigen types, and prevalence of disease. Test results must be evaluated in conjunction with other clinical data available to the physician. Individuals who received nasally administered Influenza A vaccine may have positive test results up to 3 days after vaccination. MICRO OTHER TESTSOrdered By: Anisha Benavides on 04-18-2024 Rapid COV Int NEG Ctl Pass (04/18/24 12:06 PM) Normal [facility] Sero Rapid COV Int POS Ctl Pass (04/18/24 12:06 PM) Normal [facility] SARS-CoV+SARS-CoV-2 (COVID-19) Ag IA.rapid Ql (Resp) Not Detected 2 (04/18/24 12:06 PM) Normal Not Detected [facility] Comment on above: Interpretive Data: T he [employer] Veritor System for Rapid Detection of SARS-CoV-2 is a chromatographic digital immunoassay intended for the direct and qualitative detection of SARS-CoV-2 nucleocapsid antigens in nasal swabs from individuals who are suspected of COVID-19 by their healthcare provider within the first five days of the onset of symptoms. Negative results should be treated as presumptive, do not rule out SARS-CoV-2 infection and should not be used as the sole basis for treatment or patient management decisions, including infection control decisions. Negative results should be considered in the context of a patient s recent exposures, history and the presence of clinical signs and symptoms consistent with COVID-19, and confirmed with a molecular assay, if necessary, for patient management. For in vitro diagnostic use. In the [place], only for use under an Emergency Use Authorization. In the [place], this test has not been FDA cleared or approved; this test has been authorized by FDA under an EUA for use by authorized laboratories; use by laboratories certified under the CLIA, 42 U.S.C. 263a, that meet requirements to perform moderate, high, or waived complexity tests and at the Point of Care (POC), i.e., in patient care settings operating under a CLIA Certificate of Waiver, Certificate of Compliance, or Certificate of Accreditation. This test has been authorized only for the detection of proteins from SARS-CoV-2, not for any other viruses or pathogens; and, in the [place], this test is only authorized for the duration of the declaration that circumstances exist justifying the authorization of emergency use of in vitro diagnostics for detection and/or diagnosis of the virus that causes COVID-19 under Section 564(b)(1) of the Act, 21 U.S.C. 360bbb-3(b)(1), unless the authorization is terminated or revoked sooner. Rapid COVID Antigen ([facility])on 04-18-2024 Rapid COV Int NEG Ctl Pass Normal Fis [facility] Comment on above: Performed By: #### 2 [id number] #### [facility] [address] [place] [address] Rapid COV Int POS Ctl Pass Normal [facility] Comment on above: Performed By: #### 2 [id number] #### [facility] [address] [place] [address] SARS-CoV+SARS-CoV-2 (COVID-19) Ag IA.rapid Ql (Resp) Not detected Normal Not Detected [facility] Comment on above: Result Comment: The Eachpal??? System for Rapid Detection of SARS-CoV-2 is a chromatographic digital immunoassay intended for the direct and qualitative detection of SARS-CoV-2 nucleocapsid antigens in nasal swabs from individuals who are suspected of COVID-19 by their healthcare provider within the first five days of the onset of symptoms. Negative results should be treated as presumptive, do not rule out SARS-CoV-2 infection and should not be used as the sole basis for treatment or patient management decisions, including infection control decisions. Negative results should be considered in the context of a patient???s recent exposures, history and the presence of clinical signs and symptoms consistent with COVID-19, and confirmed with a molecular assay, if necessary, for patient management. For in vitro diagnostic use. In the [place], only for use under an Emergency Use Authorization. In the [place], this test has not been FDA cleared or approved; this test has been authorized by FDA under an EUA for use by authorized laboratories; use by laboratories certified under the CLIA, 42 U.S.C. ???263a, that meet requirements to perform moderate, high, or waived complexity tests and at the Point of Care (POC), i.e., in patient care settings operating under a CLIA Certificate of Waiver, Certificate of Compliance, or Certificate of Accreditation. This test has been authorized only for the detection of proteins from SARS-CoV-2, not for any other viruses or pathogens; and, in the [place], this test is only authorized for the duration of the declaration that circumstances exist justifying the authorization of emergency use of in vitro diagnostics for detection and/or diagnosis of the virus that causes COVID-19 under Section 564(b)(1) of the Act, 21 U.S.C. ??? 360bbb-3(b)(1), unless the authorization is terminated or revoked sooner. Performed By: #### 2 [id number] #### [facility] [address] [place] [address] MRI Brain w/ + w/o Contrasto n 10-23-2023 MRI Brain w/ + w/o Contrast Exam Date/Time: 10/19/2023 15:10 EDT Reason for Exam: G43.119;Headache Report IMPRESSION: NEGATIVE HEAD MRI. EXAM: MRI Brain w/ + w/o Contrast DATE: 10/19/2023 2:06 PM CLINICAL HISTORY: Headache, G43.119. COMPARISON: Noncontrast head CT 01/08/2023, and head and neck CTAs 01/11/2023. TECHNIQUE: Multiplanar MR imaging of the head was performed before and after intravenous administration of approximately 10 mL of Vueway gadolinium contrast. FINDINGS: Acute Change: There is no evidence of restricted diffusion to suggest an acute infarct. Hemorrhage: No evidence of intracranial hemorrhage. Mass Lesion/ Mass Effect: No evidence of an intracranial mass or extra-axial fluid collection. No significant mass effect. There is no abnormal enhancement identified. Chronic Change: There are no significant white matter changes, for age. Parenchyma: No significant volume loss for age. The brain parenchyma is otherwise within normal limits of signal intensity and morphology. Ventricles: Normal caliber and morphology. Skull Base: Hypothalamic and pituitary region are grossly normal. Craniocervical junction is normal. No significant marrow replacement process. Vasculature: Major intracranial arterial structures, and dural venous sinuses show typical flow void, suggesting patency. Other: Paranasal sinuses and mastoid air cells are essentially clear. The orbits are unremarkable. The extracranial soft tissues are unremarkable. Report Ordering Provider: REY ALAS FINAL REPORT Dictated: 10/23/2023 10:27 am Carlos Miranda MD Signed (Electronic Signature): 10/23/2023 10:27 am Signed by: Carlos Miranda MD Transcribed by: MARY JANE Technologist: KARY Technical Comments Vueway Contrast amount in ml's: 10 Normal [facility] Ambulatory Visit Summaryon 0 10-10-2023 Ambulatory Visit Summary Ambulatory Visit Summary SABRINA TOVAR :1995 Visit Date:10/10/2023 Ambulatory Visit Instructions Your Diagnosis Nevus Migraine BMI 40.0-44.9, adult Your Care Team Attending Physician - JOAQUÍN RODRIGUEZ Primary Care Physician - JOAQUÍN RODRIGUEZ This Is Your Medications List albuterol (Albuterol (Eqv-ProAir HFA) 90 mcg/inh inhalation aerosol) meclizine (meclizine 25 mg Tab) naproxen (Naprosyn 500 mg Tab) sumatriptan (SUMAtriptan 25 mg Tab) Procedures Performed Cholecystectomy, denies. Discharge Vitals Temperature (Temporal Artery) 36.7 ?C Heart Rate (Peripheral) 80 Respiratory Rate 15 Blood Pressure 122/74 Height 165 cm Height 65 in Weight 126.5 kg Weight 278.3 lb BMI 46.46 What to do next Scheduled Follow-Up Appointments Tuesday 2:00 PM EDT With: JOAQUÍN RODRIGUEZ Where: [facility] [address] [place] [address]- You Need to Complete the Following MRI Brain w/ + w/o Contrast, 10/10/23, Routine, Order for Future Visit, Transport Mode: Ambulatory, Reason: Headache, No, No, Intractable migraine with aura Complicated migraine, pp_set_radiology_sub specialty, [facility] Someone Will Contact You Regarding These Appointments [facility] External Ambulatory Referral, Dermatology, [facility] derm, [place], 10/10/23 10:54:00 EDT, Nevus Medications What How Much When Why Instructions Unchanged albuterol (Albuterol (Eqv-ProAir HFA) 90 mcg/ inh inhalation aerosol) Inhalation Every 6 hours Unchanged meclizine (meclizine 25 mg Tab) 1 Tablets By Mouth 3 times a day as needed for for dizziness Unchanged naproxen (Naprosyn 500 mg Tab) 1 Tablets By Mouth 2 times a day as needed for for pain Unchanged sumatriptan (SUMAtriptan 25 mg Tab) 1 Tablets By Mouth Every day as needed for for migraine headache Class 3 severe obesity due to excess calories with body mass index (BMI) of 45.0 to 49.9 in adult Non-smoker may repeat dose after 2 hours up to a maximum of 200 mg in 24 hours Allergies No Known Allergies Problems Ongoing - Any problem that you are currently receiving treatment for. asthma Bilateral otitis media BMI 40.0-44.9, adult Dizziness Elevated transaminase level Mass of skin Migraine Nevus Polycystic ovary syndrome Visit for suture removal Historical - Any problem that you are no longer receiving treatment for. Patient Survey You may receive a survey via text or e-mail asking about your office visit. Please share your experience with us by completing your survey. We appreciate your feedback and thank you for choosing us for your care. Normal [facility] Family Medicine Office/Clini c Noteon 10-10-2023 Family Medicine Office/Clinic Note Family Medicine Office/Clinic Note HPI Staff Headaches: Time of Onset: _ since [employer] Location: not addressed _ _ _top of [place] on the right Typical headache frequency: _ 1 a day Prior headache work-up: not addressed _ _ yes was on naproxen then switched to qulipta was not approved by insurance and then dulls the migraines but doesn't help sumatriptan which none of these are working for the pt pt states pretty much back to taking the max dose for naproxen and states if she does both the naproxen and sumatriptan it helps but is not sure if she is allow to do that so she is not doing that all the time has done this 2x in the last month pt states has a neck pain about 6/10 pain mailing on the right side same side as the ringing in her right ear Health Maintenance: Pap: needs a referal DUE Last Labs: 01/11/23 pt also states mother had a two moles removed and one came back malignant and pt states she has a mole in the bra line on the left side that she would like to have checked out as well History of Present Illness Sabrina is a 28 year old female who presents to discuss migraine headaches. She is experiencing 15 migraine a month lasting > 4 hours per episode. She was on Qulipta samples which were effective, however, her insurance denied the med, and she was told the savings card was no good. She has tired and failed several medications, including both OTC and prescribed. She was on Topamax and couldn't take the side effects - she felt numb. She was on sertraline which did nothing for her migraines. She is currently taking sumatriptan for her migraine abortive and this only dulls the pain, never takes the migraine away completely. The pain is on the right side of her head during an eipsode. During a migraine she gets numbness in the face, and right arm-> hand, as well as light and noise sensitivity, and ear ringing. She does have visual auras, however, she has not experiencing double vision, blurred vison, or visual field deficits. She has eposides of nausea with vomiting as well. She feels her migraines started in HS. Her mother gets migraines as well. She is also experiencing right posterior occiptial nerve sensativity. We discussed many options today for mirgaine prevention and . She wants to hold off on going to neuro quite yet. She would like to trial some OTC prevention products before going on another prescription. She has mole under to left breast she is concerned about. She would like to go to derm for an eval because her mom had a mole that came back positive for cancer. Review of Systems PHQ Score Initial Depression Screen Score: 1 SCORE Physical Exam Vitals & Measurements T: 36.7 ?C(Temporal Artery) HR: 80(Peripheral) RR: 15 BP: 122/74 SpO2: 98% HT: 65 in HT: 165 cm WT: 126.5 kg WT: 278.3 lb BMI: 46.46 Skin under right breast: small, round, slightly raised light brown mole noted. No tenderness or redness. Pupils: RRLA General: alert, no acute distress ENMT: TM's clear, oral mucosa moist, no pharyngeal erythema or exudate Cardiovascular: regular rate and rhythm, normal peripheral perfusion Respiratory: Lungs CTA, respirations non labored Extremities: no deformity, no trauma Neurological: oriented x 4, LOC appropriate for age, CN II-XII intact, motor strength equal & normal bilaterally, sensation equal & normal bilaterally, speech normal Assessment/Plan 1. Nevus (D22.9: Melanocytic nevi, unspecified) Referral to derm. Ordered: [facility] External Ambulatory Referral 2. Migraine (G43.909: Migraine, unspecified, not intractable, without status migrainosus) She is going to start a magnesium supplement, and riboflavin supplement OTC for prevention. She is going to trial Ubrelvy at onset migraine. She will call for a script. Ok to call for a steroid if she gets into status. Consider adding a beta mariely at follow up. 3. Complicated migraine (G43.109: Migraine with aura, not intractable, without status migrainosus) MRI ordered. Ordered: MRI Brain w/ + w/o Contrast 4. BMI 40.0-44.9, adult (Z68.41: Body mass index [BMI] 40.0-44.9, adult) Orders: atogepant, 60 mg = 1 tab(s), Oral, Daily, # 30 tab(s), Refills(s) 3, Pharmacy: [facility]/pharmacy #[id number], 165.1, cm, 07/08/23 12:52:00 EDT, Height/Length Dosing, 127, kg, 07/08/23 12:52:00 EDT, Weight Dosing Follow-up No qualifying data available Problem List/Past Medical History Ongoing asthma Bilateral otitis media BMI 40.0-44.9, adult Complicated migraine Dizziness Elevated transaminase level Mass of skin Migraine Nevus Polycystic ovary syndrome Visit for suture removal Historical Procedure/Surgical History Cholecystectomy, denies. Medications Albuterol (Eqv-ProAir HFA) 90 mcg/inh inhalation aerosol, Inhalation, q6hr meclizine 25 mg Tab, 25 mg= 1 tab(s), Oral, TID, PRN Naprosyn 500 mg Tab, 500 mg= 1 tab(s), Oral, BID, PRN SUMAtriptan 25 mg Tab, 25 mg= 1 tab(s), Oral, Daily, PRN, 1 refills Allergies No K (more content not included)... Normal [facility] Comment on above: Result Comment: Elec tronically Signed By: BISHOP GHOSH, JOAQUÍN\.br\Date and Time Signed: 10/10/23 11:33 EDT Consent for Treatmenton 06-15 Consent for Treatment [id number] #1.00TIFF Normal [facility] Discharge Instructionson Discharge Instructions [id number]#1.00TIFF Normal [facility] ED Clinical Summaryon 2023 ED Clinical Summary [place] [id number] ED Clinical Summary Person Information Name: SABRINA TOVAR Brenda/[place] Age: 28 Years : 1995 Sex: Female Language: Serbian PCP: JOAQUÍN RODRIGUEZ Marital Status: Phone: [phone] Visit Id: Visit Reason: Fever; Sinus Pain/Congestion; Cough; FEVER THIS MORNING, SOB Speciality: Acuity: 4 Enc Type: Emergency Med Service: Emergency Arrival: 07/08/2023 12:47:49 Discharge: 07/08/2023 14:32:31 LOS: 000 01:45 Checkin: 07/08/2023 12:47:49 Checkout: 07/08/2023 14:32:31 Dispo Type: Home (Routine DC) EVENTS: Event Name Event Status Request Date/Time Start Date/Time Complete Date/Time Arrive Complete 07/08/2023 12:47:49 07/08/2023 12:47:49 07/08/2023 12:47:49 Document Home Meds Request 07/08/2023 12:47:49 Triage Complete 07/08/2023 12:47:49 07/08/2023 12:52:44 07/08/2023 12:52:44 Bed Assign Complete 07/08/2023 12:49:07 07/08/2023 12:49:07 07/08/2023 12:49:07 Dr Exam Complete 07/08/2023 12:49:07 07/08/2023 12:50:59 07/08/2023 12:50:59 RN Exam Complete 07/08/2023 12:49:08 07/08/2023 12:54:10 07/08/2023 12:54:10 Registration Complete 07/08/2023 12:50:32 07/08/2023 12:50:32 07/08/2023 12:50:32 Reg Complete Request 07/08/2023 12:50:32 Reg Bed Request Complete 07/08/2023 12:50:32 07/08/2023 12:50:32 07/08/2023 12:50:32 Registration Start 07/08/2023 12:50:59 07/08/2023 12:54:22 Dr Exam Complete 07/08/2023 12:54:18 07/08/2023 12:54:18 07/08/2023 12:54:18 Meds Admin Complete 07/08/2023 13:02:21 07/08/2023 13:10:37 X-Ray Complete 07/08/2023 13:02:21 07/08/2023 13:11:11 07/08/2023 13:14:03 Wet Read Request 07/08/2023 13:14:03 Meds Admin Complete 07/08/2023 13:55:14 07/08/2023 13:58:41 Discharge Complete 07/08/2023 14:12:42 07/08/2023 14:32:37 07/08/2023 14:32:37 Transfer Complete 07/08/2023 14:32:37 07/08/2023 14:32:37 07/08/2023 14:32:37 ADDRESS: [address] [place] [phone] PHYS DOC NOTES: MEDICAL INFORMATION: Prescriptions Given: New Medications [facility]/pharmacy #[id number], [address], [place] [id number], [phone] loratadine-pseudoeph edrine (loratadine-pseudoep hedrine 5 mg-120 mg ER Tab) 1 Tablets By Mouth every 12 hours for 10 Days. Refills: 0. meclizine (meclizine 25 mg Tab) 1 Tablets By Mouth 3 times a day as needed for dizziness. Refills: 0. Medications to Continue with No Changes Other Medications albuterol (Albuterol (Eqv-ProAir HFA) 90 mcg/inh inhalation aerosol) Inhalation every 6 hours. multivitamin (Multi Vitamins oral tablet) 1 Tablets By Mouth every day. naproxen (Naprosyn 500 mg Tab) 1 Tablets By Mouth 2 times a day as needed for pain. Refills: 0. sumatriptan (SUMAtriptan 25 mg Tab) 1 Tablets By Mouth every day as needed for migraine headache. may repeat dose after 2 hours up to a maximum of 200 mg in 24 hours. Refills: 1. PATIENT EDUCATION INFORMATION: Instructions: Vertigo; Sinus Pain Follow up: With: Address: When: REY ALAS [address] [place] [address] Business (1) In 3 days 07/11/2023 DIAGNOSIS: Sinus headache; Vertigo Normal [facility] ED Note-Physicianon 07-08-19 ED Note-Physician Basic Information Time Seen: Jarrell King PA-C 07/08/2023 12:51 Chief Complaint Pt reports cough, congestion, and fever that started this AM at 0400. Denies CP. Naproxen at 0400 today. History of Present Illness 28-year-old female comes to the ED for evaluation of upper respiratory infection symptoms. She awoke this morning with cough congestion fevers and dizziness. She does report a history of vertigo and states that this feels similar. She denies any chest pain or abdominal pain. Took Naprosyn prior to arrival. No known sick contacts. at bedside helping provide history. Review of Systems A 10 point review of systems is negative except as noted above. Medical and Surgical History: Reviewed and noted Social history: Lives at home Tobacco: Denies Physical Exam Vitals & Measurements T: 36.5 ?C(Oral) HR: 107(Peripheral) RR: 14 BP: 134/94 SpO2: 98% HT: 165.1 cm WT: 127 kg BMI: 46.59 Nurses notes and vital signs reviewed and patient is not hypoxic. General: Well-appearing, does not appear ill Skin: Warm, dry. Head: Atraumatic. Neck: No JVD. Eye: Normal conjunctiva. Ears, Nose, Mouth, and Throat: Sinus congestion, no difficulty with speaking or swallowing Cardiovascular: Strong peripheral pulses Chest wall: Respiratory: Respirations are nonlabored. Occasional cough Back: Normal range of motion. Musculoskeletal: Normal ROM with no gross deformity. Gastrointestinal: Urological: Neurological: Awake and alert. No focal deficits. Follows commands. Psychiatric: Cooperative. Medical Decision Making Patient presents with cough and sinus congestion. Chest x-ray with no acute infiltrates. She was treated here with meclizine and Toradol with improvement. She is discharged home with meclizine and loratadine/pseudoeph edrine. She is given PCP follow-up. Patient was encouraged to return to the ED if symptoms worsen or change. Assessment/Plan Sinus headache (R51.9: Headache, unspecified) Vertigo (R42: Dizziness and giddiness) Orders: ketorolac, 60 mg = 2 mL, Injection, IntraMuscular, Once, Stop date 07/08/23 13:55:00 EDT, STAT, Start date 07/08/23 13:55:00 EDT, 07/08/23 13:55:00 EDT loratadine-pseudoeph edrine, 1 tab(s), Oral, q12hr for 10 day(s), 20 tab(s), Refill(s) 0, [facility]/pharmacy #[id number], 165.1, cm, 07/08/23 12:52:00 EDT, Height/Length Dosing, 127, kg, 07/08/23 12:52:00 EDT, Weight Dosing meclizine, 25 mg = 1 tab(s), Oral, TID, PRN for dizziness, # 15 tab(s), Refills(s) 0, Pharmacy: [facility]/pharmacy #[id number], 165.1, cm, 07/08/23 12:52:00 EDT, Height/Length Dosing, 127, kg, 07/08/23 12:52:00 EDT, Weight Dosing meclizine, 25 mg = 2 tab(s), Tab, Oral, Once, Stop date 07/08/23 13:02:00 EDT, STAT, Start date 07/08/23 13:02:00 EDT, 07/08/23 13:02:00 EDT XR Chest Single View Medications Administered Given ketorolac 60 mg/2 mL Injection, 60 mg, IntraMuscular meclizine 12.5 mg Tab, 25 mg, Oral Disposition Plan Patient Discharge Condition Disposition: Discharged home Condition: Improved and stable Counseled: Patient and/or family were counseled to workup, results, treatment plan and follow-up recommendations Discharge Prescription List Prescriptions loratadine-pseudoeph edrine 5 mg-120 mg ER Tab, 1 tab(s), Oral, q12hr meclizine 25 mg Tab, 25 mg= 1 tab(s), Oral, TID, PRN Follow-up With When Contact Information REY ALAS In 3 days 07/11/2023 EDT [address] [place] [address]- Business (1) Additional Instructions: Patient Education Vertigo Sinus Pain Attestation I performed a substantive part of the MDM during the patient?s E/M visit. I personally made or approved the documented management plan and acknowledge its risk of complications. (Independent Interpretation) My (EKG/X-Ray/US/CT) interpretation as above. (Discussion) Management/test interpretation discussed with APC. This report was transcribed using voice recognition software. Every effort was made to ensure accuracy, however, inadvertently computerized floor layer mistakes may be present. Appropriate healthcare PPE was used in evaluating this patient. Problem List/Past Medical History Ongoing asthma Bilateral otitis media Dizziness Elevated transaminase level Mass of skin Migraine Polycystic ovary syndrome Visit for suture removal Historical Procedure/Surgical History Cholecystectomy, denies. Medications Inpatient No active inpatient medications Home Albuterol (Eqv-ProAir HFA) 90 mcg/inh inhalation aerosol, Inhalation, q6hr loratadine-pseudoeph edrine 5 mg-120 mg ER Tab, 1 tab(s), Oral, q12hr meclizine 25 mg Tab, 25 mg= 1 tab(s), Oral, TID, PRN Multi Vitamins oral tablet, 1 tab(s), Oral, Daily Naprosyn 500 mg Tab, 500 mg= 1 tab(s), Oral, BID, PRN SUMAtriptan 25 mg Tab, 25 mg= 1 tab(s), Oral, Daily, PRN, 1 refills Allergies No Known Allergies Social History Alcohol - Denies Alcohol Use, 04/16/2019 Current, Wine, 1-2 times per year, 11/07/2019 (more content not included)... Normal [facility] Comment on above: Result Comment: Elec tronically Signed By: Jarrell King PA-C\.br\Date and Time Signed: 07/08/23 16:36 EDT\.br\Electronically Co-Signed By: Jagdish Dunn DO\.br\Date and Time Co-Signed: 07/08/23 18:12 EDT ED Patient Education Noteon 07-08-2023 ED Patient Education Note ENT Sinus Pain Sinus pain may occur when your sinuses become clogged or swollen. Sinuses are air-filled spaces in your skull that are behind the bones of your face and forehead. Sinus pain can range from mild to severe. What are the causes? Sinus pain can result from various conditions that affect the sinuses. Common causes include: ? Colds. ? Sinus infections. ? Allergies. What are the signs or symptoms? The main symptom of this condition is pain or pressure in your face, forehead, ears, or upper teeth. People who have sinus pain often have other symptoms, such as: ? Congested or runny nose. ? Fever. ? Inability to smell. ? Headache. Weather changes can make symptoms worse. How is this diagnosed? Your health care provider will diagnose this condition based on your symptoms and a physical exam. If you have pain that keeps coming back or does not go away, your health care provider may recommend more testing. This may include: ? Imaging tests, such as a CT scan or MRI, to check for problems with your sinuses. ? Examination of your sinuses using a thin tool with a camera that is inserted through your nose (endoscopy). How is this treated? Treatment for this condition depends on the cause. ? Sinus pain that is caused by a sinus infection may be treated with antibiotic medicine. ? Sinus pain that is caused by congestion may be helped by rinsing out (flushing) the nose and sinuses with saline solution. ? Sinus pain that is caused by allergies may be helped by allergy medicines (antihistamines) and medicated nasal sprays. ? Sinus surgery may be needed in some cases if other treatments do not help. Follow these instructions at home: General instructions ? If directed: ? Apply a warm, moist washcloth to your face to help relieve pain. ? Use a nasal saline wash. Follow the directions on the bottle or box. Hydrate and humidify ? Drink enough water to keep your urine clear or pale yellow. Staying hydrated will help to thin your mucus. ? Use a humidifier if your home is dry. ? Inhale steam for 10?15 minutes, 3?4 times a day or as told by your health care provider. You can do this in the bathroom while a hot shower is running. ? Limit your exposure to cool or dry air. Medicines ? Take yusv-gww-dybtbuo and prescription medicines only as told by your health care provider. ? If you were prescribed an antibiotic medicine, take it as told by your health care provider. Do not stop taking the antibiotic even if you start to feel better. ? If you have congestion, use a nasal spray to help lessen pressure. Contact a health care provider if: ? You have sinus pain more than one time a week. ? You have sensitivity to light or sound. ? You develop a fever. ? You feel nauseous or you vomit. ? Your sinus pain or headache does not get better with treatment. Get help right away if: ? You have vision problems. ? You have sudden, severe pain in your face or head. ? You have a seizure. ? You are confused. ? You have a stiff neck. Summary ? Sinus pain occurs when your sinuses become clogged or swollen. ? Sinus pain can result from various conditions that affect the sinuses, such as a cold, a sinus infection, or an allergy. ? Treatment for this condition depends on the cause. It may include medicine, such as antibiotics or antihistamines. This information is not intended to replace advice given to you by your health care provider. Make sure you discuss any questions you have with your health care provider. Document Revised: 01/03/2022 Document Reviewed: 01/03/2022 [employer] Patient Education ? 2022 [employer] Neurology Vertigo Vertigo is the feeling that you or your surroundings are moving when they are not. This feeling can come and go at any time. Vertigo often goes away on its own. Vertigo can be dangerous if it occurs while you are doing something that could endanger yourself or others, such as driving or operating machinery. Your health care provider will do tests to try to determine the cause of your vertigo. Tests will also help your health care provider decide how best to treat your condition. Follow these instructions at home: Eating and drinking ? Dehydration can make vertigo worse. Drink enough fluid to keep your urine pale yellow. ? Do not drink alcohol. Activity ? Return to your normal activities as told by your health care provider. Ask your health care provider what activities are safe for you. ? In the morning, first sit up on the side of the bed. When you feel okay, stand slowly while you hold onto something until you know that your balance is fine. ? Move slowly. Avoid sudden body or head movements or certain positions, as told by your health care provider. ? If you have trouble walking or keeping your balance, try using a cane for stabil (more content not included)... Normal [facility] ED Patient Summaryon 024 ED Patient Summary [address] [address] Patient Discharge Instructions Person Information Name: SABRINA TOVAR Age: 28 Years Arrival Date: 07/08/2023 12:47:49 Discharge Diagnosis: Sinus headache; Vertigo Primary Care Physician: JOAQUÍN RODRIGUEZ Provider Information Primary Provider: Jagdish Dunn DO Advanced Pathology Technologist:Jarrell King PA-C The exam and treatment you received in the Emergency Department were for an urgent problem and are not intended as complete care. It is important that you follow up with a doctor, nurse practitioner, or physician?s microbiology lab assistant for ongoing care. If your symptoms become worse or you do not improve as expected and you are unable to reach your usual health care provider, you should return to the Emergency Department. We are available 24 hours a day. BASILIOSABRINA has been given the following list of patient education materials, prescriptions and follow-up instructions: Follow-up Instructions: With: Address: When: REY ALAS [address] [place] [address] Business (1) In 3 days 07/11/2023 In the event that this physician does not participate in your insurance network, please consult with your insurance company to find a nearby participating provider. Patient Education Materials: Vertigo; Sinus Pain A MESSAGE TO ALL PATIENTS REGARDING OPIOIDS PRESCRIPTION OPIOIDS: WHAT YOU NEED TO KNOW Prescription opioids can be used to help relieve ikooyrdd-on-wveshl pain and are often prescribed following a surgery or injury, or for certain health conditions. These medications can be an important part of the treatment but also come with serious risks. It is important to work with your healthcare provider to make sure you are getting the safest, most effective care. WHAT ARE THE RISKS AND SIDE EFFECTS OF OPIOID USE? Prescription opioids carry serious risks of addiction and overdose, especially with prolonged use. An opioid overdose, often marked by slowed breathing, can cause sudden . The use of prescription opioids can have a number of side effects as well, even when taken as directed: ? Tolerance?meaning you might need to take more of the medication for the same pain relief ? Physical dependence?meaning you have symptoms of withdrawal when a medication is stopped ? Increased sensitivity to pain ? Constipation ? Nausea, vomiting, and dry mouth ? Sleepiness and dizziness ? Confusion ? Depression ? Low levels of testosterone that can result in lower sex drive, energy, and strength ? Itching and sweating RISKS ARE GREATER WITH: ? History of drug misuse, substance use disorder, or overdose ? Mental health conditions (such as depression or anxiety) ? Sleep apnea ? Older age (65 years and older) ? Avoid alcohol while taking prescription opioids. Also, unless specifically advised by your health care provider, medications to avoid include: ? Benzodiazepines (such as Xanax or Valium) ? Muscle relaxants (such as Soma or Flexeril) ? Hypnotics (such as Ambien or Lunesta) ? Other prescription opioids KNOW YOUR OPTIONS Talk to your health care provider about ways to manage your pain that don?t involve prescription opioids. Some of these options may actually work better and have fewer risks and side effects. Options may include: ? Pain relievers such as acetaminophen, ibuprofen, and naproxen ? Some medication that are also used for depression or seizures ? Physical therapy and exercise ? Cognitive behavioral therapy, a psychological, goal-directed approach, in which patients learn how to modify physical, behavioral, and emotional triggers of pain and stress. IF YOU ARE PRESCRIBED OPIOIDS FOR PAIN: ? Never take opioids in greater amounts or more often than prescribed. ? Follow up with your primary health care provider. o Work together to create a plan on how to manage your pain. o Talk about ways to help manage your pain that don?t involve prescription opioids. o Talk about any and all concerns and side effects. ? Help prevent misuse and abuse o Never sell or share prescription opioids. o Never use another person?s prescription opioids. ? Store prescription opioids in a secure place and out of reach of others (this may include visitors, children, friends, and family). ? Safely dispose of unused prescription opioids: Find your community drug take-back program or your pharmacy mail-back program, or flush them down the toilet, following guidance from the Food and Drug Administration (www.fda.gov/Drugs/R esourcesForYou). ? Visit www.cdc.gov/drugover dose to learn about the risks of opioids abuse and overdose. ? If you believe you may be struggling with addiction, tell your health child care supervisor and ask for guidance or call [facility]?S National Helpline at 9-136-561-DQFRPro Breath MD w (more content not included)... [facility] Prescriptions/Work Noteson 0 07-08-2023 Prescriptions/Work Notes [id number] [facility] XR Chest Single Viewon 07-07 XR Chest Single View Exam Date/Time: 07/08/2023 13:14 EDT Reason for Exam: Cough Report IMPRESSION: No acute findings by portable radiography. EXAMINATION: XR Chest Single View Clinical History: Cough Comparison: 06/24/2022. RESULT: No consolidation. No pleural effusion. No pneumothorax. Normal cardiomediastinal silhouette. No acute osseous findings. Ordering Provider: Jarrell King FINAL REPORT Dictated: 07/08/2023 1:29 pm Yohan Murphy MD. Signed (Electronic Signature): 07/08/2023 1:29 pm Signed by: Yohan uMrphy MD Transcribed by: MARY JANE Technologist: LAUREEN Technical Comments Radiation Dose: Ka,r in mGy = na DAP = na [facility] Ambulatory Visit Summaryon 0 07-06-2023 Ambulatory Visit Summary BASILIOSABRINA Princess :1995 Visit Date:07/06/2023 Ambulatory Visit Instructions Your Diagnosis Class 3 severe obesity due to excess calories with body mass index (BMI) of 45.0 to 49.9 in adult Non-smoker Body mass index [BMI] 45.0-49.9, adult Your Care Team Attending Physician - JOAQUÍN RODRIGUEZ Primary Care Physician - JOAQUÍN RODRIGUEZ This Is Your Medications List sumatriptan (SUMAtriptan 25 mg Tab) Contact prescribing physician if questions or concerns albuterol (Albuterol (Eqv-ProAir HFA) 90 mcg/inh inhalation aerosol) multivitamin (Multi Vitamins oral tablet) naproxen (Naprosyn 500 mg Tab) Procedures Performed Cholecystectomy, denies. Discharge Vitals Heart Rate (Peripheral) 78 Blood Pressure 126/86 Height 165 cm Height 65 in Weight 125.8 kg Weight 276.76 lb BMI 46.21 What to do next Scheduled Follow-Up Appointments Tuesday 8:40 AM EDT With: JOAQUÍN RODRIGUEZ Where: [facility] Normal [facility] Family Medicine Office/Clini c Noteon 07-06-2023 Family Medicine Office/Clinic Note Chief Complaint establish care HPI Staff Establish Care: History: Any previous diagnosis: Asthma History of seeing any specialist: none When was your last doctors visit: 2021 Last provider: Dr. Romero Any recent labs: 01/11/23 Health Maintenance UTD: Pelvic/Pap:DUE- see Dr. Ortega has been over a year Flu: refused PHQ-2 (neg) Acute: Current issues/complaints: Patient would like to discuss Migraines. States she is getting them 1 time weekly. She is taking OTC Naproxen but it is no longer helping When she has them she has light and sound sensitivity. Gets nausea, denies vomiting. Migraines located in the front of her head. She states in the last two months she began to experience ringing in her ears and states it also sounds like her pulse that comes and goes randomly. History of Present Illness Sabrina is a 28 year old female who presents to [facility] care, and for migraine. She is experiencing head pain daily, with full blown migraine >2x/week. She has tried OTC products, Nurtec, fiorcet, zofran, cyclobenzaprine, sertraline, and topamax without resolve. Her migraines have consistently gotten worse, and she is waking up with a headache daily. She does have insomnia and a young child. She is not sleeping well. The staff HPI was reviewed and is accurate. Review of Systems PHQ Score Initial Depression Screen Score: 2 SCORE Physical Exam Vitals & Measurements HR: 78(Peripheral) BP: 126/86 SpO2: 99% HT: 65 in HT: 165 cm WT: 125.8 kg WT: 276.76 lb BMI: 46.21 General: alert, no acute distress ENMT: TM's clear, oral mucosa moist, no pharyngeal erythema or exudate Cardiovascular: regular rate and rhythm, normal peripheral perfusion Respiratory: Lungs CTA, respirations non labored Extremities: no deformity, no trauma Neurological: oriented x 4, LOC appropriate for age, CN II-XII intact, motor strength equal & normal bilaterally, sensation equal & normal bilaterally, speech normal Assessment/Plan 1. Migraine (G43.909: Migraine, unspecified, not intractable, without status migrainosus) Provided with samples of Qulipta. She is going to trial this. If she desires a script, she will call, or return before running out of the medication. She was prescribed sumatriptan for breakthrough migraine, and instructions discussed. She was instructed to take a daily decongestant, as well as continue a multivitamin. 2. Body mass index [BMI] 45.0-49.9, adult (Z68.42: Body mass index [BMI] 45.0-49.9, adult) Continue to monitor 3. Class 3 severe obesity due to excess calories with body mass index (BMI) of 45.0 to 49.9 in adult (E66.01: Morbid (severe) obesity due to excess calories) Continue to monitor Ordered: sumatriptan, 25 mg = 1 tab(s), Oral, Daily, PRN for migraine headache, may repeat dose after 2 hours up to a maximum of 200 mg in 24 hours, # 9 tab(s), Refills(s) 1, Pharmacy: [facility]/pharmacy #[id number], 165, cm, 07/06/23 8:52:00 EDT, Height/Length Dosing, 125.8, kg, 06/15... 4. Non-smoker (Z78.9: Other specified health status) stable Ordered: sumatriptan, 25 mg = 1 tab(s), Oral, Daily, PRN for migraine headache, may repeat dose after 2 hours up to a maximum of 200 mg in 24 hours, # 9 tab(s), Refills(s) 1, Pharmacy: [facility]/pharmacy #[id number], 165, cm, 07/06/23 8:52:00 EDT, Height/Length Dosing, 125.8, kg, 06/15... Follow-up With When Contact Information JOAQUÍN RODRIGUEZ FAM Within 4 weeks Additional Instructions: Patient Education Chronic Migraine Headache Problem List/Past Medical History Ongoing asthma Bilateral otitis media Dizziness Elevated transaminase level Mass of skin Migraine Polycystic ovary syndrome Visit for suture removal Historical Procedure/Surgical History Cholecystectomy, denies. Medications Albuterol (Eqv-ProAir HFA) 90 mcg/inh inhalation aerosol, Inhalation, q6hr Multi Vitamins oral tablet, 1 tab(s), Oral, Daily Naprosyn 500 mg Tab, 500 mg= 1 tab(s), Oral, BID, PRN SUMAtriptan 25 mg Tab, 25 mg= 1 tab(s), Oral, Daily, PRN, 1 refills Allergies No Known Allergies Social History Alcohol - Denies Alcohol Use, 04/16/2019 Current, Wine, 1-2 times per year, 11/07/2019 Current, 1-2 times per month, 05/12/2017 Substance Abuse - Denies Substance Abuse, 11/19/2016 Current, 05/12/2017 Tobacco - Denies Tobacco Use, 04/16/2019 Never (less than 100 in lifetime) Tobacco Use:. Never Smokeless Tobacco Use:. Household tobacco concerns: No., 07/06/2023 Family History Acute myocardial infarction: Mother. Cervical cancer: Mother. Diabetes mellitus type 2: Mother. Immunizations Vaccine Date Status Comments influenza virus vaccine, inactivated - Not Given Patient Refuses diphtheria/pertussis , acel/tetanus adult 09/13/2021 Recorded SARS-CoV-2 (COVID-19) mRNA-1273 vaccine 10/09/2020 Recorded 2023-01-14: TPVAL diphtheria/pertussis , acel/tetanus adult 09/29/2020 Given (L) deltoid influenza virus vaccine, inactivated 11/26/2011 Recorded influenza vir (more content not included)... Normal [facility] Comment on above: Result Comment: Elec tronically Signed By: JOAQUÍN RODRIGUEZ\.br\Date and Time Signed: 07/06/23 10:09 EDT Patient Educationon 07-06-19 Patient Education Neurology Chronic Migraine Headache A migraine is a type of headache that is usually stronger and more sudden than other headaches. Migraines are characterized by an intense pulsing, throbbing pain that is usually only present on one side of the head. Migraine pain usually gets worse with activity. Migraines can cause nausea, vomiting, sensitivity to light and sound, and vision changes. Migraines that keep coming back are called recurrent migraines. A migraine is called a chronic migraine if it happens at least 15 days in a month for more than 3 months. Talk with your health care provider about what things may bring on (trigger) your migraines. What are the causes? The exact cause of this condition is not known. However, a migraine may be caused when nerves in the brain become irritated and release chemicals that cause inflammation of blood vessels. The inflammation of the blood vessels causes pain. Migraines may be triggered or caused by: ? Smoking. ? Certain foods and drinks, such as: ? Aged cheese. ? Chocolate. ? Alcohol. ? Caffeine. ? Foods or drinks that contain nitrates, glutamate, aspartame, MSG, or tyramine. ? Medicines, such as control pills or some blood pressure medicines. Other things that may trigger a migraine include: ? Menstruation. ? Emotional stress. ? Lack of sleep or too much sleep. ? Tiredness (fatigue). ? Bright lights or loud noises. ? Odors. ? Weather changes and high altitude. What increases the risk? The following factors may make you more likely to experience chronic migraine: ? Having migraines or a family history of migraines. ? Having a mental health condition, such as depression or anxiety. ? Having to take a lot of pain medicine. ? Having sleep problems. ? Having heart disease, diabetes, or obesity. What are the signs or symptoms? Symptoms of a migraine vary for each person and may include: ? Pulsating or throbbing pain. ? Pain that is usually only present on one side of the head. In some cases, the pain may be on both sides of the head or around the head or neck. ? Severe pain that prevents you from doing daily activities. ? Pain that gets worse with physical activity. ? Nausea, vomiting, or both. ? Pain with exposure to bright lights, loud noises, or activity. ? General sensitivity to bright lights, loud noises, or smells. ? Dizziness. A sign that a migraine is becoming chronic is an increasing number of migraine episodes. It is considered chronic if the migraine happens at least 15 days in a month for more than 3 months. How is this diagnosed? This condition is often diagnosed based on: ? Your symptoms and medical history. ? A physical exam. You may also have tests, including: ? A CT scan or an MRI of your brain. These imaging tests cannot diagnose migraines, but they can help to rule out other causes of headaches. ? Taking fluid from the spine (lumbar puncture) and analyzing it (cerebrospinal fluid analysis, or CSF analysis). ? Blood tests. How is this treated? This condition is treated with: ? Medicines. These help to: ? Lessen pain and nausea. ? Prevent migraines. ? Lifestyle changes, such as changes to your diet or sleeping patterns. ? Behavior therapy. This may include: ? Relaxation training. ? Biofeedback. This is a treatment that teaches you to relax and use your brain to lower your heart rate and control your breathing. ? Cognitive behavioral therapy (CBT). This is a form of talk therapy. This therapy helps you set goals and follow up on the changes that you make. ? Acupuncture. ? Using a device that provides electrical stimulation to your nerves, which can relieve pain (neuromodulation therapy). ? Surgery, if the other treatments are not working. Follow these instructions at home: Medicines ? Take lwwb-tje-jyxvzuq and prescription medicines only as told by your health care provider. ? Ask your health care provider if the medicine prescribed to you requires you to avoid driving or using machinery. Lifestyle ? Do not use any products that contain nicotine or tobacco, such as cigarettes, e-cigarettes, and chewing tobacco. If you need help quitting, ask your health care provider. ? Do not drink alcohol. ? Get 7?9 hours of sleep each night, or the amount of sleep recommended by your health care provider. ? Find ways to manage stress, such as meditation, deep breathing, or yoga. ? Maintain a healthy weight. If you need help losing weight, ask your health care provider. ? Exercise regularly. Aim for 150 minutes of moderate-intensity exercise, such as walking, biking, or yoga, or 75 minutes of vigorous exercise each week. Vigorous exercise includes running, circuit training, and swimming. General instructions ? Keep a journal to find out what triggers your migraines so you can avoid these triggers. For example, write down: ? What you eat and dr (more content not included)... Normal [facility] CHEMISTRYOrdered By: SYSTEM SYSTEM on 01-11-2023 Anion gap [Moles/Vol] 10 mmol/L Normal 6 - 16 mEq/L [facility] Remisol Calcium [Mass/Vol] 8.7 mg/dL Low 8.9 - 11. 1 mg/dL [facility] Rem[facility] Chloride [Moles/Vol] 102 mmol/L Normal 101 - 1 11 mmol/L [facility] CO2 [Moles/Vol] 28 mmol/L Normal 21 - 31 mmol/L [facility] Rem[facility] Creatinine [Mass/Vol] 1.1 mg/dL Normal 0.5 - 1.3 mg/dL [facility] Remisol GFR/1.73 sq M.predicted among non-blacks MDRD (S/P/Bld) [Vol rate/Area] 70 mL/min/1.73 m2 Normal >=59mL/min/1 .73 m2 [facility] Chem S Comment on above: Interpretive Data: C hronic kidney disease could be indicated at eGFR's of less than 60 mL/min/1.73m2. Kidney failure is indicated at less than 15 mL/min/1.73m2. Glucose [Mass/Vol] 93 mg/dL Normal 55 - 199 mg/dL [facility] Remisol Comment on above: Interpretive Data: I f this glucose result represents a fasting glucose, interpretation should refer to the following reference range: 55-99 mg/dL Magnesium [Mass/Vol] 2.3 mg/dL Normal 1.3 - 2 .4 mg/dL [facility] Potassium [Moles/Vol] 3.5 mmol/L Normal 3.5 - 5.3 mmol/L [facility] Remisol Sodium [Moles/Vol] 136 mmol/L Normal 135 - 145 mmol/L [facility] Rem[facility] Urea nitrogen [Mass/Vol] 13 mg/dL Normal 5 - 21 mg/dL [facility] Urea nitrogen/Creatinine [Mass ratio] 12 mg/mg Normal 10 - 20 [facility] Remisol HEMATOLOGYOrdered By: SYSTEM SYSTEM on 01-11-2023 Basophils/100 WBC (Bld) 0.9 % Normal 0.0 - 2.0 % [facility] HemeAutoSS Basophils/Leukocytes Auto (Bld) [Pure # fraction] 0.0 E9/L Normal 0.0 - 0.2 E9/L [facility] HemeAutoSS Eosinophils/100 WBC (Bld) 3.2 % Normal 0.0 - 8.0 % [facility] HemeAutoSS Eosinophils/Leukocytes Auto (Bld) [Pure # fraction] 0.2 E9/L Normal 0.0 - 0.5 E9/L [facility]eAutoSS Lymphocytes/100 WBC (Bld) 24.5 % Normal 14.0 - 50.0 % [facility] HemeAutoSS Lymphocytes/Leukocytes Auto (Bld) [Pure # fraction] 1.2 E9/L Normal 1.0 - 4.0 E9/L [facility] HemeAutoSS Monocytes/100 WBC (Bld) 12.4 % Normal 4.0 - 14.0 % [facility] HemeAutoSS Monocytes/Leukocytes Auto (Bld) [Pure # fraction] 0.6 E9/L Normal 0.2 - 1.0 E9/L [facility]eAutoSS Neutrophils/100 WBC (Bld) 59.0 % Normal 36.0 - 75.0 % [facility] HemeAutoSS Neutrophils/Leukocytes Auto (Bld) [Pure # fraction] 2.9 E9/L Normal 2.0 - 7.5 E9/L [facility]eAutoSS HEMATOLOGYOrdered By: Pancho Quick on 01-11-2023 Erythrocyte distribution width (RBC) [Ratio] 15.6 % High 10.9 - 14.2 % [facility]eAutoSS Hematocrit (Bld) [Volume fraction] 39.2 % Normal 34.0 - 46.0 % [facility] HemeAutoSS Hemoglobin (Bld) [Mass/Vol] 12.8 g/dL Normal 12.0 - 16.0 gm/dL [facility]eAutoSS MCH (RBC) [Entitic mass] 24.0 pg Low 27.0 - 34.0 pg [facility]eAutoSS MCHC (RBC) [Mass/Vol] 32.6 g/dL Normal 31.4 - 36.0 gm/dL [facility]eAutoSS MCV (RBC) [Entitic vol] 73.7 fL Low 80.0 - 100.0 fL [facility]eAutoSS Platelet mean volume (Bld) [Entitic vol] 7.9 fL Normal 6.4 - 10.8 fL [facility] HemeAutoSS Platelets (Bld) [#/Vol] 144.0 E9/L Low 150. 0 - 500.0 E9/L [facility] HemeAutoSS RBC (Bld) [#/Vol] 5.3 E12/L Normal 4.3 - 5.9 E12/L [facility]eAutoSS WBC corrected for nucl RBC Auto (Bld) [#/Vol] 4.8 E9/L Normal 4.0 - 11.0 E9/L [facility]eAutoSS CHEMISTRYOrdered By: SYSTEM SYSTEM on 01-08-2023 HCG.beta subunit Qn mIU/mL Normal 1 - 3 mIU/mL [facility] C Remisol Comment on above: Interpretive Data: G ESTATIONAL AGE HCG RANGE (mIU/mL) NON- <1-3 0.2-1 WEEKS 5-50 1-2 WEEKS 50-500 2-3 WEEKS 100-5,000 3-4 WEEKS 500-10,000 4-5 WEEKS 1,000-50,000 5-6 WEEKS 10,000-100,000 6-8 WEEKS 15,000-200,000 8-12 WEEKS 10,000-100,000 MICRO OTHER TESTSOrdered By: Brenna Brady on 01-06-2023 Influenzae A Ag Negative (01/06/23 3:06 PM) Normal Negative [facility] Man Sero Influenzae B Ag Negative 1 (01/06/23 3:06 PM) Normal Negative [facility] Man Sero Comment on above: Interpretive Data: T est sensitivity and specificity vary for age group, specimen type, antigen types, and prevalence of disease. Test results must be evaluated in conjunction with other clinical data available to the physician. Individuals who received nasally administered Influenza A vaccine may have positive test results up to 3 days after vaccination. Rapid COV Int NEG Ctl Pass (01/06/23 3:06 PM) Normal [facility] Man Sero Rapid COV Int POS Ctl Pass (01/06/23 3:06 PM) Normal [facility] Man Sero SARS-CoV+SARS-CoV-2 (COVID-19) Ag IA.rapid Ql (Resp) Not Detected 2 (01/06/23 3:06 PM) Normal Not Detected [facility] Man Sero Comment on above: Interpretive Data: T bibiana Odimaxitor System for Rapid Detection of SARS-CoV-2 is a chromatographic digital immunoassay intended for the direct and qualitative detection of SARS-CoV-2 nucleocapsid antigens in nasal swabs from individuals who are suspected of COVID-19 by their healthcare provider within the first five days of the onset of symptoms. Negative results should be treated as presumptive, do not rule out SARS-CoV-2 infection and should not be used as the sole basis for treatment or patient management decisions, including infection control decisions. Negative results should be considered in the context of a patient s recent exposures, history and the presence of clinical signs and symptoms consistent with COVID-19, and confirmed with a molecular assay, if necessary, for patient management. For in vitro diagnostic use. In the [place], only for use under an Emergency Use Authorization. In the [place], this test has not been FDA cleared or approved; this test has been authorized by FDA under an EUA for use by authorized laboratories; use by laboratories certified under the CLIA, 42 U.S.C. 263a, that meet requirements to perform moderate, high, or waived complexity tests and at the Point of Care (POC), i.e., in patient care settings operating under a CLIA Certificate of Waiver, Certificate of Compliance, or Certificate of Accreditation. This test has been authorized only for the detection of proteins from SARS-CoV-2, not for any other viruses or pathogens; and, in the [place], this test is only authorized for the duration of the declaration that circumstances exist justifying the authorization of emergency use of in vitro diagnostics for detection and/or diagnosis of the virus that causes COVID-19 under Section 564(b)(1) of the Act, 21 U.S.C. 360bbb-3(b)(1), unless the authorization is terminated or revoked sooner. CHEMISTRYOrdered By: SYSTEM SYSTEM on 10-17-2022 Albumin [Mass/Vol] 3.8 g/dL Normal 3.3 - 5.0 gm/dL [facility] Albumin/Globulin [Mass ratio] 1.0 {ratio} Low 1.1 - 2.2 [facility] ALP [Catalytic activity/Vol] 79 [iU]/d Normal 21 - 98 Int._Unit/L [facility] ALT No additional P-5'-P [Catalytic activity/Vol] 16 [iU]/d Normal 6 - 46 Int._Unit/L [facility] Anion gap [Moles/Vol] 8 mmol/L Normal 6 - 16 mEq/L [facility] AST [Catalytic activity/Vol] 18 [iU]/d Normal 5 - 43 Int._Unit/L [facility] Bilirubin [Mass/Vol] 0.6 mg/dL Normal 0.0 - 1 .1 mg/dL [facility] Bilirubin.direct [Mass/Vol] 0.2 mg/dL Normal 0.1 - 0.4 mg/dL [facility] Bilirubin.indirect [Mass or moles/Vol] 0.4 mg/dL Normal 0.1 - 0.9 mg/dL [facility] Calcium [Mass/Vol] 9.2 mg/dL Normal 8.9 - 11. 1 mg/dL [facility] Chloride [Moles/Vol] 111 mmol/L Normal 101 - 1 11 mmol/L [facility] CO2 [Moles/Vol] 25 mmol/L Normal 21 - 31 mmol/L [facility] Creatinine [Mass/Vol] 0.9 mg/dL Normal 0.5 - 1.3 mg/dL [facility] GFR/1.73 sq M.predicted among non-blacks MDRD (S/P/Bld) [Vol rate/Area] 89 mL/min/1.73 m2 Normal >=59mL/min/1 .73 m2 [facility] Chem S Globulin (S) [Mass/Vol] 3.9 g/dL Normal 1.4 - 4.0 gm/dL [facility] Glucose [Mass/Vol] 96 mg/dL Normal 55 - 199 mg/dL [facility] Lipase [Catalytic activity/Vol] 39 U/L Normal 13 - 58 unit/L [facility] Potassium [Moles/Vol] 4.0 mmol/L Normal 3.5 - 5.3 mmol/L [facility] Protein [Mass/Vol] 7.7 g/dL Normal 6.0 - 7.8 gm/dL [facility] Sodium [Moles/Vol] 140 mmol/L Normal 135 - 145 mmol/L [facility] Urea nitrogen [Mass/Vol] 12 mg/dL Normal 5 - 21 mg/dL [facility] Urea nitrogen/Creatinine [Mass ratio] 13 mg/mg Normal 10 - 20 [facility] HEMATOLOGYOrdered By: SYSTEM SYSTEM on 10-17-2022 Basophils/100 WBC (Bld) 0.5 % Normal 0.0 - 2.0 % [facility] Basophils/Leukocytes Auto (Bld) [Pure # fraction] 0.1 E9/L Normal 0.0 - 0.2 E9/L [facility] Eosinophils/100 WBC (Bld) 4.4 % Normal 0.0 - 8.0 % [facility] Eosinophils/Leukocytes Auto (Bld) [Pure # fraction] 0.5 E9/L Normal 0.0 - 0.5 E9/L [facility] Lymphocytes/100 WBC (Bld) 16.4 % Normal 14.0 - 50.0 % [facility] Lymphocytes/Leukocytes Auto (Bld) [Pure # fraction] 1.9 E9/L Normal 1.0 - 4.0 E9/L [facility] Monocytes/100 WBC (Bld) 6.7 % Normal 4.0 - 14.0 % [facility] Monocytes/Leukocytes Auto (Bld) [Pure # fraction] 0.8 E9/L Normal 0.2 - 1.0 E9/L [facility] Neutrophils/100 WBC (Bld) 72.0 % Normal 36.0 - 75.0 % [facility] Neutrophils/Leukocytes Auto (Bld) [Pure # fraction] 8.5 E9/L High 2.0 - 7.5 E9/L [facility] HEMATOLOGYOrdered By: Krista Lemus on 10-17-2022 Erythrocyte distribution width (RBC) [Ratio] 15.5 % High 10.9 - 14.2 % [facility] Hematocrit (Bld) [Volume fraction] 39.7 % Normal 34.0 - 46.0 % [facility] Hemoglobin (Bld) [Mass/Vol] 12.8 g/dL Normal 12.0 - 16.0 gm/dL [facility] MCH (RBC) [Entitic mass] 24.0 pg Low 27.0 - 34.0 pg [facility] MCHC (RBC) [Mass/Vol] 32.2 g/dL Normal 31.4 - 36.0 gm/dL [facility] MCV (RBC) [Entitic vol] 74.6 fL Low 80.0 - 100.0 fL [facility] Platelet mean volume (Bld) [Entitic vol] 7.3 fL Normal 6.4 - 10.8 fL [facility] Platelets (Bld) [#/Vol] 280.0 E9/L Normal 150. 0 - 500.0 E9/L [facility] RBC (Bld) [#/Vol] 5.3 E12/L Normal 4.3 - 5.9 E12/L [facility] WBC corrected for nucl RBC Auto (Bld) [#/Vol] 11.8 E9/L High 4.0 - 11.0 E9/L [facility] SEROLOGYOrdered By: Sonal Amezcua on 10-17-2022 Beta hCG Ql Negative (10/17/22 1:38 PM) Normal [facility] URINALYSISOrdered By: Charla Amezcua on 10-17-2022 Bilirubin Ql (U) Negative (10/17/22 4:33 PM) Normal Negative [facility] Auto SS Clarity (U) Clear (10/17/22 4:33 PM) Normal Clear [facility] Auto SS Color (U) Yellow (10/17/22 4:33 PM) Normal Yellow [facility] Auto SS Epithelial cells.squamous LM.HPF (Urine sed) [#/Area] 3-4 /HPF Normal 0-2/HPF [facility] Aut o SS Glucose Test strip (U) [Mass/Vol] Negative (10/17/22 4:33 PM) Normal Negative [facility] Auto SS Hemoglobin Ql (U) Negative (10/17/22 4:33 PM) Normal Negative [facility] Auto SS Ketones (U) [Mass/Vol] Negative (10/17/22 4:33 PM) Normal Negative [facility]A Auto SS [place].plasma/[place]. RBC (Bld) [Mass ratio] 0-3 /HPF Normal 0-3/HPF [facility]A A uto SS Mucus Ql (Urine sed) Trace (10/17/22 4:33 PM) Normal [facility] Auto SS Nitrite Ql (U) Negative (10/17/22 4:33 PM) Normal Negative [facility] Auto SS pH (U) 6.0 *NA* (10/17/22 4:33 PM) Invalid Interpretation Code 5.0 - 9.0 [facility] SS Protein (U) [Mass/Vol] Negative (10/17/22 4:33 PM) Normal Negative [facility] Auto SS Specific gravity (U) [Rel density] <=1.005 *NA* (10/17/22 4:33 PM) Invalid Interpretation Code 1.005 - 1.030 [facility] Auto SS UA Spec Desc Clean Catch (10/17/22 4:33 PM) Normal [facility] Auto SS Urobilinogen Qn (U) [id number] {Juma'U}/dL Normal 0.0 - 1.0 EU/dL [facility]A Auto SS WBC Auto Ql (U) Negative (10/17/22 4:33 PM) Normal Negative [facility] Auto SS WBC LM.HPF (Urine sed) [#/Area] 0-5 /HPF Normal 0-5/HPF [facility] Auto SS CHEMISTRYOrdered By: SYSTEM SYSTEM on 02-17-2022 Albumin [Mass/Vol] 4.0 g/dL Normal 3.3 - 5.0 gm/dL [facility] Albumin/Globulin [Mass ratio] 1.0 {ratio} Low 1.1 - 2.2 [facility] ALP [Catalytic activity/Vol] 93 [iU]/d Normal 21 - 98 Int._Unit/L [facility] ALT No additional P-5'-P [Catalytic activity/Vol] 21 [iU]/d Normal 6 - 46 Int._Unit/L [facility] Anion gap [Moles/Vol] 11 mmol/L Normal 6 - 16 mEq/L [facility] AST [Catalytic activity/Vol] 20 [iU]/d Normal 5 - 43 Int._Unit/L [facility] Bilirubin [Mass/Vol] 0.5 mg/dL Normal 0.0 - 1 .1 mg/dL [facility] Bilirubin.direct [Mass/Vol] mg/dL Normal 0.1 - 0.4 mg/dL [facility] Bilirubin.indirect [Mass or moles/Vol] Unable to Calculate mg/dL Invalid Interpretation Code 0.1 - 0.9 mg/dL [facility] Calcium [Mass/Vol] 8.8 mg/dL Low 8.9 - 11. 1 mg/dL [facility] Chloride [Moles/Vol] 104 mmol/L Normal 101 - 1 11 mmol/L [facility] CO2 [Moles/Vol] 25 mmol/L Normal 21 - 31 mmol/L [facility] Creatinine [Mass/Vol] 0.9 mg/dL Normal 0.5 - 1.3 mg/dL [facility] GFR/1.73 sq M.predicted among blacks MDRD (S/P/Bld) [Vol rate/Area] mL/min/1.73 m2 Normal >=59mL/min/1 .73 m2 [facility] [place] Chem S GFR/1.73 sq M.predicted among non-blacks MDRD (S/P/Bld) [Vol rate/Area] mL/min/1.73 m2 Normal >=59mL/min/1 .73 m2 [facility] [place] Chem S Globulin (S) [Mass/Vol] 3.9 g/dL Normal 1.4 - 4.0 gm/dL [facility] Glucose [Mass/Vol] 103 mg/dL Normal 55 - 199 mg/dL [facility] Lipase [Catalytic activity/Vol] 43 U/L Normal 13 - 58 unit/L [facility] Potassium [Moles/Vol] 4.2 mmol/L Normal 3.5 - 5.3 mmol/L [facility] Protein [Mass/Vol] 7.9 g/dL High 6.0 - 7.8 gm/dL [facility] Sodium [Moles/Vol] 136 mmol/L Normal 135 - 145 mmol/L [facility] Urea nitrogen [Mass/Vol] 18 mg/dL Normal 5 - 21 mg/dL [facility] Urea nitrogen/Creatinine [Mass ratio] 20 mg/mg Normal 10 - 20 [facility] HEMATOLOGYOrdered By: Leigh Ann Paulson on 02-17-2022 Anisocytosis Ql (Bld) Present (02/17/22 4:25 PM) Normal [facility] Erythrocyte distribution width (RBC) [Ratio] 15.5 % High 10.9 - 14.2 % [facility] Hematocrit (Bld) [Volume fraction] 40.0 % Normal 34.0 - 46.0 % [facility] Hemoglobin (Bld) [Mass/Vol] 12.6 g/dL Normal 12.0 - 16.0 gm/dL [facility] MCH (RBC) [Entitic mass] 23.9 pg Low 27.0 - 34.0 pg [facility] MCHC (RBC) [Mass/Vol] 31.5 g/dL Normal 31.4 - 36.0 gm/dL [facility] MCV (RBC) [Entitic vol] 75.9 fL Low 80.0 - 100.0 fL [facility] Microcytes Ql (Bld) Present (02/17/22 4:25 PM) Normal [facility] Morphology Parminder (Bld) [Interp] See Morphology (02/17/22 4:25 PM) Normal [facility] Ovalocytes LM Ql (Bld) Present (02/17/22 4:25 PM) Normal [facility] Platelet mean volume (Bld) [Entitic vol] 6.8 fL Normal 6.4 - 10.8 fL [facility] Platelets (Bld) [#/Vol] 322.0 E9/L Normal 150. 0 - 500.0 E9/L [facility] RBC (Bld) [#/Vol] 5.3 E12/L Normal 4.3 - 5.9 E12/L [facility] WBC corrected for nucl RBC Auto (Bld) [#/Vol] 14.2 E9/L High 4.0 - 11.0 E9/L [facility] HEMATOLOGYOrdered By: SYSTEM SYSTEM on 02-17-2022 Basophils/100 WBC (Bld) 0.7 % Normal 0.0 - 2.0 % [facility] Basophils/Leukocytes Auto (Bld) [Pure # fraction] 0.1 E9/L Normal 0.0 - 0.2 E9/L [facility] Eosinophils/100 WBC (Bld) 2.3 % Normal 0.0 - 8.0 % [facility] Eosinophils/Leukocytes Auto (Bld) [Pure # fraction] 0.3 E9/L Normal 0.0 - 0.5 E9/L [facility] Lymphocytes/100 WBC (Bld) 6.1 % Low 14.0 - 50.0 % [facility] Lymphocytes/Leukocytes Auto (Bld) [Pure # fraction] 0.9 E9/L Low 1.0 - 4.0 E9/L [facility] Monocytes/100 WBC (Bld) 5.2 % Normal 4.0 - 14.0 % [facility] Monocytes/Leukocytes Auto (Bld) [Pure # fraction] 0.7 E9/L Normal 0.2 - 1.0 E9/L [facility] Neutrophils/100 WBC (Bld) 85.7 % High 36.0 - 75.0 % [facility] Neutrophils/Leukocytes Auto (Bld) [Pure # fraction] 12.2 E9/L High 2.0 - 7.5 E9/L [facility] SEROLOGYOrdered By: Anisha Benavides on 02-17-2022 Beta hCG Ql Negative (02/17/22 4:25 PM) Normal [facility] URINALYSISOrdered By: Pancho Quick on 02-17-2022 Bacteria LM Ql (Urine sed) Trace /HPF Normal Trace/HPF [facility] Bilirubin Ql (U) Negative (02/17/22 7:01 PM) Normal Negative [facility] Clarity (U) Clear (02/17/22 7:01 PM) Normal Clear [facility] Color (U) Yellow (02/17/22 7:01 PM) Normal Yellow [facility] SS Epithelial cells.squamous LM.HPF (Urine sed) [#/Area] 0-2 /HPF Normal 0-2/HPF [facility] Aut o SS Glucose Test strip (U) [Mass/Vol] Negative (02/17/22 7:01 PM) Normal Negative [facility] SS Hemoglobin Ql (U) 1+ *ABN* (02/17/22 7:01 PM) Invalid Interpretation Code Negative [facility] Ketones (U) [Mass/Vol] Negative (02/17/22 7:01 PM) Normal Negative [facility]A Auto SS [place].plasma/[place]. RBC (Bld) [Mass ratio] 0-3 /HPF Normal 0-3/HPF [facility]A A uto SS Nitrite Ql (U) Negative (02/17/22 7:01 PM) Normal Negative [facility] Auto SS pH (U) 6.0 *NA* (02/17/22 7:01 PM) Invalid Interpretation Code 5.0 - 9.0 [facility] Auto SS Protein (U) [Mass/Vol] Negative (02/17/22 7:01 PM) Normal Negative [facility] Auto SS Specific gravity (U) [Rel density] 1.025 *NA* (02/17/22 7:01 PM) Invalid Interpretation Code 1.005 - 1.030 [facility] Auto SS UA Spec Desc Clean Catch (02/17/22 7:01 PM) Normal [facility] SS Urobilinogen Qn (U) 0.9251288 {Juma'U}/dL Normal 0.0 - 1.0 EU/dL [facility] SS WBC Auto Ql (U) Negative (02/17/22 7:01 PM) Normal Negative [facility] Auto SS WBC LM.HPF (Urine sed) [#/Area] 0-5 /HPF Normal 0-5/HPF [facility] Auto SS SEROLOGYOrdered By: Chio garcia on 11-10-2021 HCG.beta subunit (U) [Moles/Vol] Negative Normal [facility] URINALYSISOrdered By: Cailin Sanders on 11-10-2021 Bacteria LM Ql (Urine sed) 2+ /HPF Invalid Interpretation Code Trace/HPF [facility] Bilirubin Ql (U) Negative (11/10/21 12:40 PM) Normal Negative [facility] Auto SS Clarity (U) Cloudy *ABN* (11/10/21 12:40 PM) Invalid Interpretation Code Clear [facility] Auto SS Color (U) Yellow (11/10/21 12:40 PM) Normal Yellow [facility] Auto SS Epithelial cells.squamous LM.HPF (Urine sed) [#/Area] 3-4 /HPF Normal 0-2/HPF [facility]A Aut o SS Glucose Test strip (U) [Mass/Vol] Negative (11/10/21 12:40 PM) Normal Negative [facility] Auto SS Hemoglobin Ql (U) Trace *ABN* (11/10/21 12:40 PM) Invalid Interpretation Code Negative [facility] SS Ketones (U) [Mass/Vol] Negative (11/10/21 12:40 PM) Normal Negative [facility]A Auto SS [place].plasma/[place]. RBC (Bld) [Mass ratio] 0-3 /HPF Normal 0-3/HPF [facility] UA A uto SS Nitrite Ql (U) Negative (11/10/21 12:40 PM) Normal Negative [facility]A Auto SS pH (U) 6.5 *NA* (11/10/21 12:40 PM) Invalid Interpretation Code 5.0 - 9.0 [facility] [place] UA Auto SS Protein (U) [Mass/Vol] Negative (11/10/21 12:40 PM) Normal Negative [facility] [place] UA Auto SS Specific gravity (U) [Rel density] 1.010 *NA* (11/10/21 12:40 PM) Invalid Interpretation Code 1.005 - 1.030 [facility] [place] UA Auto SS UA Spec Desc Clean Catch (11/10/21 12:40 PM) Normal [facility] UA Auto SS Urobilinogen Qn (U) 0.9756559 {Juma'U}/dL Normal 0.0 - 1.0 EU/dL [facility] UA Auto SS WBC Auto Ql (U) 3+ *ABN* (11/10/21 12:40 PM) Invalid Interpretation Code Negative [facility] UA Auto SS WBC LM.HPF (Urine sed) [#/Area] 16-25 /HPF Invalid Interpretation Code 0-5/HPF [facility] UA Auto SS Basophils Auto (Bld) [#/Vol] Ordered By: PRESLEY ORTEGA on 09-13-2021 Basophils (Bld) [#/Vol] 0.0 10*3/uL 0.0-0.2 [facility] Basophils/100 WBC Auto (Bld) Ordered By: PRESLEY ORTEGA on 09-13-2021 Basophils/100 WBC (Bld) 0.3 % . [facility] Blood hemoglobin measurement (mass/volume)Ordered By: PRESLEY ORTEGA on 09-13-2021 Hemoglobin (Bld) [Mass/Vol] 11.7 g/dL 11.8-15.4 [facility] Blood leukocytes automated c ount (number/volume)Ordered By: PRESLEY ORTEGA on 09-13-2021 WBC (Bld) [#/Vol] 13.1 10*3/uL 4.5-11.0 [facility] Complete Blood Count Auto Di ffon 09-13-2021 Basophils (Bld) [#/Vol] 0.0 10*3/uL Normal 0.0-0.2 [facility] Comment on above: Order Comment: Comme nt Draw at 630 am Result Comment: PERF ORMED BY: [place] [address] PATHOLOGIST CLINIC MANAGER SANDY PEREZ M.D. Performed By: #### C BC #### [address] Basophils/100 WBC (Bld) 0.3 % Normal . [facility] Comment on above: Order Comment: Comme nt Draw at 630 am Performed By: #### C BC #### [address] Eosinophils (Bld) [#/Vol] 0.1 10*3/uL Normal 0.0-0.45 [facility] Comment on above: Order Comment: Comme nt Draw at 630 am Performed By: #### C BC #### [address] Eosinophils/100 WBC (Bld) 0.8 % Normal . [facility] Comment on above: Order Comment: Comme nt Draw at 630 am Performed By: #### C BC #### [address] Erythrocyte distribution width (RBC) [Ratio] 15.3 % Normal 11.9-15.3 [facility] Comment on above: Order Comment: Comme nt Draw at 630 am Performed By: #### C BC #### [address] Hematocrit (Bld) [Volume fraction] 35.2 % Normal 34.0-46.4 [facility] Comment on above: Order Comment: Comme nt Draw at 630 am Performed By: #### C BC #### [place] [address] [place] Hemoglobin (Bld) [Mass/Vol] 11.7 g/dL Low 11.8-15.4 [facility] Comment on above: Order Comment: Comme nt Draw at 630 am Performed By: #### C BC #### [place] [address] [place] Lymphocytes (Bld) [#/Vol] 2.4 10*3/uL Normal 1.00-4.8 [facility] Comment on above: Order Comment: Comme nt Draw at 630 am Performed By: #### C BC #### [address] Lymphocytes/100 WBC (Bld) 18.5 % Normal . [facility] Comment on above: Order Comment: Comme nt Draw at 630 am Performed By: #### C BC #### [address] MCH (RBC) [Entitic mass] 27.9 pg Normal 24.7-34.3 [facility] Comment on above: Order Comment: Comme nt Draw at 630 am Performed By: #### C BC #### [address] MCV (RBC) [Entitic vol] 83.6 fL Normal 80-100 [facility] Comment on above: Order Comment: Comme nt Draw at 630 am Performed By: #### C BC #### [address] Mean Corpuscular HGB Conc 33.3 g/dL Normal 32.0-35.0 [facility] Comment on above: Order Comment: Comme nt Draw at 630 am Performed By: #### C BC #### [address] Monocytes (Bld) [#/Vol] 0.9 10*3/uL High 0.0-0.8 [facility] Comment on above: Order Comment: Comme nt Draw at 630 am Performed By: #### C BC #### [place] [address] [place] Monocytes/100 WBC (Bld) 6.5 % Normal . [facility] Comment on above: Order Comment: Comme nt Draw at 630 am Performed By: #### C BC #### [address] Neutrophils (Bld) [#/Vol] 9.7 10*3/uL High 1.8-7.7 [facility] Comment on above: Order Comment: Comme nt Draw at 630 am Performed By: #### C BC #### [address] Neutrophils/100 WBC (Bld) 73.9 % Normal . [facility] Comment on above: Order Comment: Comme nt Draw at 630 am Performed By: #### C BC #### [place] [address] [place] Nucleated RBC/100 WBC (Bld) [Ratio] 0.1 % Normal 0-0.5 [facility] Comment on above: Order Comment: Comme nt Draw at 630 am Performed By: #### C BC #### [address] Platelet mean volume (Bld) [Entitic vol] 7.2 fL Normal 6.3-10.7 [facility] Comment on above: Order Comment: Comme nt Draw at 630 am Performed By: #### C BC #### [address] Platelets (Bld) [#/Vol] 237 10*3/uL Normal 150-450 [facility] Comment on above: Order Comment: Comme nt Draw at 630 am Performed By: #### C BC #### [address] RBC (Bld) [#/Vol] 4.21 10*6/uL Normal 3.60-5.00 [facility] Comment on above: Order Comment: Comme nt Draw at 630 am Performed By: #### C BC #### [place] [address] [place] WBC (Bld) [#/Vol] 13.1 10*3/uL High 4.5-11.0 [facility] Comment on above: Order Comment: Comme nt Draw at 630 am Performed By: #### C BC #### [place] [address] [place] Eosinophils Auto (Bld) [#/Vo l]Ordered By: PRESLEY ORTEGA on 09-13-2021 Eosinophils (Bld) [#/Vol] 0.1 10*3/uL 0.0-0.45 [facility] Eosinophils/100 WBC Auto (Bl d)Ordered By: PRESLEY ORTEGA on 09-13-2021 Eosinophils/100 WBC (Bld) 0.8 % . [facility] Erythrocyte distribution wid th Auto (RBC) [Ratio]Ordered By: PRESLEY ORTEGA on 09-13-2021 Erythrocyte distribution width (RBC) [Ratio] 15.3 % 11.9-15.3 [facility] Hematocrit Auto (Bld) [Volum e fraction]Ordered By: PRESLEY ORTEGA on 09-13-2021 Hematocrit (Bld) [Volume fraction] 35.2 % 34.0-46.4 [facility] - Hematology and Cell countsOrdered By: PRESLEY ORTEGA on 09-13-2021 Nucleated RBC/100 WBC (Bld) [Ratio] 0.1 % 0-0.5 [facility] Lymphocytes Auto (Bld) [#/Vo l]Ordered By: PRESLEY ORTEGA on 09-13-2021 Lymphocytes (Bld) [#/Vol] 2.4 10*3/uL 1.00-4.8 [facility] Lymphocytes/100 WBC Auto (Bl d)Ordered By: PRESLEY ORTEGA on 09-13-2021 Lymphocytes/100 WBC (Bld) 18.5 % . [facility] MCH Auto (RBC) [Entitic mass ]Ordered By: PRESLEY ORTEGA on 09-13-2021 MCH (RBC) [Entitic mass] 27.9 pg 24.7-34.3 [facility] MCHC Auto (RBC) [Mass/Vol]Or dered By: PRESLEY ORTEGA on 09-13-2021 MCHC (RBC) [Mass/Vol] 33.3 g/dL 32.0-35.0 [facility] MCV Auto (RBC) [Entitic vol] Ordered By: PRESLEY ORTEGA on 09-13-2021 MCV (RBC) [Entitic vol] 83.6 fL 80-100 [facility] Monocytes Auto (Bld) [#/Vol] Ordered By: PRESLEY ORTEGA on 09-13-2021 Monocytes (Bld) [#/Vol] 0.9 10*3/uL 0.0-0.8 [facility] Monocytes/100 WBC Auto (Bld) Ordered By: PRESLEY ORTEGA on 09-13-2021 Monocytes/100 WBC (Bld) 6.5 % . [facility] Neutrophils Auto (Bld) [#/Vo l]Ordered By: PRESLEY ORTEGA on 09-13-2021 Neutrophils (Bld) [#/Vol] 9.7 10*3/uL 1.8-7.7 [facility] Neutrophils/100 WBC Auto (Bl d)Ordered By: PRESLEY ORTEGA on 09-13-2021 Neutrophils/100 WBC (Bld) 73.9 % . [facility] Platelet mean volume Auto (B ld) [Entitic vol]Ordered By: PRESLEY ORTEGA on 09-13-2021 Platelet mean volume (Bld) [Entitic vol] 7.2 fL 6.3-10.7 [facility] Platelets Auto (Bld) [#/Vol] Ordered By: PRESLEY ORTEGA on 09-13-2021 Platelets (Bld) [#/Vol] 237 10*3/uL 150-450 [facility] RBC Auto (Bld) [#/Vol]Ordere d By: PRESLEY ORTEGA on 09-13-2021 RBC (Bld) [#/Vol] 4.21 10*6/uL 3.60-5.00 [facility] Albumin [Mass/volume] in Ser um or PlasmaOrdered By: PRESLEY ORTEGA on 09-12-2021 Albumin [Mass/Vol] 2.3 g/dL 3.2-5.5 [facility] Comprehensive Metabolic Pane brian 09-12-2021 Albumin [Mass/Vol] 2.3 g/dL Low 3.2-5.5 [facility] Comment on above: Performed By: #### C MP #### [facility] [address] Albumin/Globulin [Mass ratio] 0.6 {ratio} Normal [facility] Comment on above: Performed By: #### C MP #### [facility] [address] ALP [Catalytic activity/Vol] 183 U/L High 32-92 [facility] Comment on above: Performed By: #### C MP #### [facility] [address] ALT [Catalytic activity/Vol] 15 U/L Normal 10-60 [facility] Comment on above: Performed By: #### C MP #### [facility] [address] AST [Catalytic activity/Vol] 15 U/L Normal 10-42 [facility] Comment on above: Performed By: #### C MP #### [facility] [address] [place] [address] Bilirubin [Mass/Vol] 0.7 mg/dL Normal 0.3-1.2 [facility] Comment on above: Performed By: #### C MP #### [facility] [address] [place] [address] Calcium [Mass/Vol] 8.7 mg/dL Normal 8.2-10.2 [facility] Comment on above: Performed By: #### C MP #### [facility] [address] [place] [address] Chloride [Moles/Vol] 102 mmol/L Normal 95-114 [facility] Comment on above: Performed By: #### C MP #### [facility] [address] [place] [address] CO2 [Moles/Vol] 22.9 mmol/L Normal 22.0-30.0 [facility] Comment on above: Performed By: #### C MP #### [facility] [address] [place] [address] Creatinine [Mass/Vol] 0.69 mg/dL Normal 0.44-1.03 [facility] Comment on above: Performed By: #### C MP #### [facility] [address] [place] [address] Creatinine Clr Calc Pharmacy 152.06 Normal [facility] Comment on above: Result Comment: PERF ORMED BY: [place] [address] PATHOLOGIST CLINIC MANAGER SANDY EPREZ M.D. Performed By: #### C MP #### [address] Estimated GFR ( Brenda > 60 Normal [facility] Comment on above: Result Comment: GFR estimated reference range: According to KDOQI guidelines, <60 ml/min/1.73m2 is sufficient to diagnose a patient with chronic kidney disease. Performed By: #### C MP #### [address] Estimated GFR (Non- Am > 60 Normal [facility] Comment on above: Performed By: #### C MP #### [address] Globulin (S) [Mass/Vol] 3.7 g/dL Normal [facility] Comment on above: Performed By: #### C MP #### [address] Glucose [Mass/Vol] 97 mg/dL Normal 70-100 [facility] Comment on above: Result Comment: [place] Glucose Reference Range is dependent on time and content of last meal. Glucose of more than 200 mg/dL in a nonstressed, ambulatory subject supports the diagnosis of Diabetes Mellitus. ADA recommended reference range Performed By: #### C MP #### [address] Potassium [Moles/Vol] 3.6 mmol/L Normal 3.5-5.1 [facility] Comment on above: Performed By: #### C MP #### [address] Protein [Mass/Vol] 6.0 g/dL Low 6.1-7.9 [facility] Comment on above: Performed By: #### C MP #### [address] Sodium [Moles/Vol] 136 mmol/L Normal 136-146 [facility] Comment on above: Performed By: #### C MP #### [facility] [address] [place] [address] [place] Urea nitrogen [Mass/Vol] 6 mg/dL Low 9- [facility] Comment on above: Performed By: #### C MP #### [facility] [address] [place] [address] [place] Creatinine and Glomerular fi ltration rate.predicted panel (S/P/Bld)Ordered By: PRESLEY ORTEGA on 09-12-2021 Creatinine [Mass/Vol] 0.69 mg/dL 0.44-1.03 [facility] Estimated glomerular filtrat ion rate (GFR) non- AmericanOrdered By: PRESLEY ORTEGA on 09-12-2021 GFR/1.73 sq M.predicted among non-blacks MDRD (S/P/Bld) [Vol rate/Area] > 60 mL/Min [facility] Globulin Calc (S) [Mass/Vol] Ordered By: PRESLEY ORTEGA on 09-12-2021 Globulin (S) [Mass/Vol] 3.7 g/dL [facility] No Panel InformationOrdered By: PRESLEY ORTEGA on 09-12-2021 Estimated GFR () > 60 mL/Min [facility] Comment on above: GFR estimated refere nce range: According to KDOQI guidelines, <60 ml/min/1.73m2 is sufficient to diagnose a patient with chronic kidney disease. Pharmacy Creatinine Clearance (Chem 152.06 [facility] Protein [Mass/volume] in Ser um or PlasmaOrdered By: PRESLEY ORTEGA on 09-12-2021 Protein [Mass/Vol] 6.0 g/dL 6.1-7.9 [facility] Serum or plasma alanine hutton otransferase measurement without P-5'-P (enzymatic activiOrdered By: PRESLEY ORTEGA on 09-12-2021 ALT No additional P-5'-P [Catalytic activity/Vol] 15 U/L 10-60 [facility] Serum or plasma albumin/glob ulin mass ratioOrdered By: PRESLEY ORTEGA on 09-12-2021 Albumin/Globulin [Mass ratio] 0.6 {ratio} [facility] Serum or plasma alkaline lamont sphatase measurement (enzymatic activity/volume)Ordered By: PRESLEY ORTEGA on 09-12-2021 ALP [Catalytic activity/Vol] 183 U/L 32-92 [facility] Serum or plasma aspartate am inotransferase measurement (enzymatic activity/volume)Ordered By: PRESLEY ORTEGA on 09-12-2021 AST [Catalytic activity/Vol] 15 U/L 10-42 [facility] Serum or plasma calcium carlie urement (mass/volume)Ordered By: PRESLEY ORTEGA on 09-12-2021 Calcium [Mass/Vol] 8.7 mg/dL 8.2-10.2 [facility] Serum or plasma chloride irwin surement (moles/volume)Ordered By: PRESLEY ORTEGA on 09-12-2021 Chloride [Moles/Vol] 102 mmol/L 95-114 [facility] Serum or plasma glucose carlie urement (mass/volume)Ordered By: PRESLEY ORTEGA on 09-12-2021 Glucose [Mass/Vol] 97 mg/dL 70-100 [facility] Comment on above: ADA recommended refe rence range Random Glucose Reference Range is dependent on time and content of last meal. Glucose of more than 200 mg/dL in a nonstressed, ambulatory subject supports the diagnosis of Diabetes Mellitus. Serum or plasma potassium me asurement (moles/volume)Ordered By: PRESLEY ORTEGA on 09-12-2021 Potassium [Moles/Vol] 3.6 mmol/L 3.5-5.1 [facility] Serum or plasma sodium measu rement (moles/volume)Ordered By: PRESLEY ORTEGA on 09-12-2021 Sodium [Moles/Vol] 136 mmol/L 136-146 [facility] Serum or plasma total biliru bin measurement (mass/volume)Ordered By: PRESLEY ORTEGA on 09-12-2021 Bilirubin [Mass/Vol] 0.7 mg/dL 0.3-1.2 [facility] Serum or plasma total carbon dioxide measurement (moles/volume)Ordered By: PRESLEY ORTEGA on 09-12-2021 CO2 [Moles/Vol] 22.9 mmol/L 22.0-30.0 [facility] Serum or plasma urea nitroge n measurement (mass/volume)Ordered By: PRESLEY ORTEGA on 09-12-2021 Urea nitrogen [Mass/Vol] 6 mg/dL 9 [facility] Amphetamine Screen Ql (U)Ord ered By: PRESLEY ORTEGA on 09-11-2021 Amphetamines Ql (U) Negative Negative [facility] Barbiturates [Presence] in U rineOrdered By: PRESLEY ORTEGA on 09-11-2021 Barbiturates Ql (U) Negative Negative [facility] Benzodiazepines [Presence] i n UrineOrdered By: PRESLEY ORTEGA on 09-11-2021 Benzodiazepines Ql (U) Negative Negative [facility] Bilirubin Auto test strip Ql (U)Ordered By: PRESLEY ORTEGA on 09-11-2021 Bilirubin Ql (U) Negative Negative [facility] COVID-19 Antigenon 2 COVID-19 Antigen Healthcare Worker?: N Reference Range: Negative Negative results, from patients with symptom onset beyond five days, should be treated as presumptive and confirmation with a molecular assay, if necessary, for patient management, may be performed. Negative results do not rule out COVID-19 and should not be used as the sole basis for treatment or patient management decisions, including infection control decisions. Negative results should be considered in the context of a patient's recent exposures, history and the presence of clinical signs and symptoms consistent with COVID-19. The Chanel SARS Antigen IVET does not differentiate between SARS-CoV and SARS-CoV-2. This test was developed and its performance characteristic determined by [employer] and validated at [facility]. This test has not been FDA cleared or approved. This test has been authorized by FDA under an Emergency Use Authorization (EUA). This test has been validated in accordance with the FDA's Guidance Document (Policy for Diagnostics Testing in Laboratories Certified to Perform High Complexity Testing under CLIA prior to Emergency Use Authorization for Coronavirus Disease-2019 during the Public Health Emergency) issued on May 17, 2019. This test is only authorized for the duration of time the declaration that circumstances exist justifying the authorization of the emergency use of in vitro diagnostic tests for detection of SARS-CoV-2 virus and/or diagnosis of COVID-19 infection under section 564(b)(1) of the Act, 21 U.S.C. 360bbb-3(b)(1), unless the authorization is terminated or revoked sooner. SARS-CoV+SARS-CoV-2 (COVID-19) Ag [Presence] in Respiratory specimen by Rapid immunoassay Negative for SARS Antigen by IVET PERFORMED BY: [place] [address] PATHOLOGIST CLINIC MANAGER SANDY PEREZ M.D. Normal [facility] Comment on above: Performed By: #### C OVID-19 CHANEL, SOFIANEG #### [address] COVID-19 SOFIAOrdered By: MANJU ORTEGA on 09-11-2021 SARS-CoV+SARS-CoV-2 (COVID-19) Ag IA.rapid Ql (Resp) Negative Negative [facility] Comment on above: This is a duplicate Chanel SARS Antigen (IVET) result to be used for statistical tracking purpose only. Chlamydia trachomatis DNA [P resence] in Specimen by EMMA with probe detectionOrdered By: PRESLEY ORTEGA on 09-11-2021 C. trachomatis DNA EMMA+probe Ql (Unsp spec) Negative Negative [facility] Chlamydia/GC/Trich NAAon Chlamydia Trachomotis, EMMA Negative Normal Negative [facility] Comment on above: Performed By: #### G CCHLAMTRI #### [facility] , Neisseria Gonorrhoeae, EMMA Negative Normal Negative [facility] Comment on above: Performed By: #### G CCHLAMTRI #### [facility] , Trichomonas EMMA Negative Normal Negative [facility] Comment on above: Result Comment: Perf ormed at: =G - [facility] [address] [id number] Repairer Screen Crusher: Glory Schaffer MD, Phone: [phone] PERFORMED BY: [address] [id number] PATHOLOGIST CLINIC MANAGER SANDY PEREZ M.D. Performed By: #### G CCHLAMTRI #### [facility] , Complete Blood Count Auto Di ffon 09-11-2021 Basophils (Bld) [#/Vol] 0.1 10*3/uL Normal 0.0-0.2 [facility] Comment on above: Result Comment: PERF ORMED BY: [place] [address] PATHOLOGIST CLINIC MANAGER SANDY PEREZ M.D. Performed By: #### R AZ W RFX #### [facility] , #### CBC #### [facility] [address] [place] [address] Basophils/100 WBC (Bld) 1.1 % Normal . [facility] Comment on above: Performed By: #### R AZ W RFX #### [facility] , #### CBC #### [address] Eosinophils (Bld) [#/Vol] 0.2 10*3/uL Normal 0.0-0.45 [facility] Comment on above: Performed By: #### R AZ W RFX #### [facility] , #### CBC #### [facility] [address] [place] [address] [place] Eosinophils/100 WBC (Bld) 1.7 % Normal . [facility] Comment on above: Performed By: #### R AZ W RFX #### [facility] , #### CBC #### [facility] [address] [place] [address] Erythrocyte distribution width (RBC) [Ratio] 14.7 % Normal 11.9-15.3 [facility] Comment on above: Performed By: #### R AZ W RFX #### [facility] , #### CBC #### [facility] [address] [place] [address] Hematocrit (Bld) [Volume fraction] 37.4 % Normal 34.0-46.4 [facility] Comment on above: Performed By: #### R AZ W RFX #### [facility] , #### CBC #### [address] Hemoglobin (Bld) [Mass/Vol] 12.4 g/dL Normal 11.8-15.4 [facility] Comment on above: Performed By: #### R AZ W RFX #### [facility] , #### CBC #### [address] Lymphocytes (Bld) [#/Vol] 2.4 10*3/uL Normal 1.00-4.8 [facility] Comment on above: Performed By: #### R AZ W RFX #### [facility] , #### CBC #### [address] Lymphocytes/100 WBC (Bld) 19.6 % Normal . [facility] Comment on above: Performed By: #### R AZ W RFX #### [facility] , #### CBC #### [address] MCH (RBC) [Entitic mass] 28.1 pg Normal 24.7-34.3 [facility] Comment on above: Performed By: #### R AZ W RFX #### [facility] , #### CBC #### [facility] [address] [place] [address] MCV (RBC) [Entitic vol] 84.4 fL Normal 80-100 [facility] Comment on above: Performed By: #### R AZ W RFX #### [facility] , #### CBC #### [facility] [address] [place] [address] Mean Corpuscular HGB Conc 33.2 g/dL Normal 32.0-35.0 [facility] Comment on above: Performed By: #### R AZ W RFX #### [facility] , #### CBC #### [facility] [address] [place] [address] [place] Monocytes (Bld) [#/Vol] 0.8 10*3/uL Normal 0.0-0.8 [facility] Comment on above: Performed By: #### R AZ W RFX #### [facility] , #### CBC #### [facility] [address] [place] [address] [place] Monocytes/100 WBC (Bld) 6.6 % Normal . [facility] Comment on above: Performed By: #### R AZ W RFX #### [facility] , #### CBC #### [facility] [address] [place] [address] [place] Neutrophils (Bld) [#/Vol] 8.8 10*3/uL High 1.8-7.7 [facility] Comment on above: Performed By: #### R AZ W RFX #### [facility] , #### CBC #### [facility] [address] [place] [address] [place] Neutrophils/100 WBC (Bld) 71.0 % Normal . [facility] Comment on above: Performed By: #### R AZ W RFX #### [facility] , #### CBC #### [facility] [address] [place] [address] [place] Nucleated RBC/100 WBC (Bld) [Ratio] 0.1 % Normal 0-0.5 [facility] Comment on above: Performed By: #### R AZ W RFX #### [facility] , #### CBC #### [facility] [address] [place] [address] [place] Platelet mean volume (Bld) [Entitic vol] 7.4 fL Normal 6.3-10.7 [facility] Comment on above: Performed By: #### R AZ W RFX #### [facility] , #### CBC #### [facility] [address] Platelets (Bld) [#/Vol] 256 10*3/uL Normal 150-450 [facility] Comment on above: Performed By: #### R AZ W RFX #### [facility] , #### CBC #### [facility] [address] RBC (Bld) [#/Vol] 4.43 10*6/uL Normal 3.60-5.00 [facility] Comment on above: Performed By: #### R AZ W RFX #### [facility] , #### CBC #### [facility] [address] [place] [address] WBC (Bld) [#/Vol] 12.4 10*3/uL High 4.5-11.0 [facility] Comment on above: Performed By: #### R AZ W RFX #### [facility] , #### CBC #### [facility] [address] [place] [address] Ketones Auto test strip (U) [Mass/Vol]Ordered By: PRESLEY ORTEGA on 09-11-2021 Ketones (U) [Mass/Vol] Negative Negative [facility] - Drug toxicology Ordered By: PRESLEY ORTEGA on 09-11-2021 Opiates Ql (U) Negative Negative [facility] Neisseria gonorrhoeae DNA [P resence] in Specimen by EMMA with probe detectionOrdered By: PRESLEY ORTEGA on 09-11-2021 N. gonorrhoeae DNA EMMA+probe Ql (Unsp spec) Negative Negative [facility] No Panel InformationOrdered By: PRESLEY ORTEGA on 09-11-2021 SARS Antigen (LFIA) [facility] OB Urine Drug Screen (NO THC )on 09-11-2021 Amphetamine Screen,Urine Negative Normal Negative [facility] Comment on above: Performed By: #### U A, OBUDS #### [address] Barbiturate Screen,Urine Negative Normal Negative [facility] Comment on above: Performed By: #### U A, OBUDS #### [place] [address] [place] Benzodiazepines Screen,Urine Negative Normal Negative [facility] Comment on above: Performed By: #### U A, OBUDS #### [place] [address] [place] Cocaine Screen,Urine Negative Normal Negative [facility] Comment on above: Performed By: #### U A, OBUDS #### [place] [address] [place] Opiate Screen,Urine Negative Normal Negative [facility] Comment on above: Performed By: #### U A, OBUDS #### [address] Phencyclidine Screen, Urine Negative Normal Negative [facility] Comment on above: Result Comment: Thes e are unconfirmed results and should not be used for legal purposes. Drug Cut-Off Concentration: AMPH 1000 ng/mL DANTE 200 ng/mL DONTA 200 ng/mL COCM 300 ng/mL OP 300 ng/mL PCP 25 ng/mL PERFORMED BY: [place] [address] PATHOLOGIST CLINIC MANAGER SANDY PEREZ M.D. Performed By: #### U A, OBUDS #### [address] Phencyclidine Screen Ql (U)O rdered By: PRESLEY ORTEGA on 09-11-2021 Phencyclidine Ql (U) Negative Negative [facility] Comment on above: These are unconfirme d results and should not be used for legal purposes. Drug Cut-Off Concentration: AMPH 1000 ng/mL DANTE 200 ng/mL DONTA 200 ng/mL COCM 300 ng/mL OP 300 ng/mL PCP 25 ng/mL Protein Auto test strip (U) [Mass/Vol]Ordered By: PRESLEY ORTEGA on 09-11-2021 Protein (U) [Mass/Vol] Negative Negative [facility] RPR w/rfx to Quant TP Abson 09-11-2021 RPR, Rfx Quant RPR Non-Reactive Normal Non Reactive [facility] Comment on above: Result Comment: Perf ormed at: - [facility] [address] [id number] Repairer Screen Crusher: Surya Hazel PhD, Phone: [phone] PERFORMED BY: [place] [address] PATHOLOGIST CLINIC MANAGER SANDY PEREZ M.D. Performed By: #### R AZ W RFX #### [facility] , #### CBC #### [facility] [address] [place] [address] [place] Reagin Ab [Presence] in Seru m by RPROrdered By: PRESLEY ORTEGA on 09-11-2021 Reagin Ab RPR Ql (S) Non-Reactive Non Reactive [facility] Comment on above: Performed at: CB - [employer] [address] [id number] Repairer Screen Crusher: Surya Hazel PhD, Phone: [phone] Chanel Ag Negativeon 09-12-19 22 Chanel Ag Negative Negative Normal Negative [facility] Comment on above: Result Comment: This is a duplicate Chanel SARS Antigen (IVET) result to be used for statistical tracking purpose only. PERFORMED BY: [place] [address] PATHOLOGIST CLINIC MANAGER SANDY PEREZ M.D. Performed By: #### C OVID-19 CHANEL, SOFIANEG #### [facility] [address] [place], [place] [id number] [place] Trichomonas vaginalis DNA [P resence] in Specimen by EMMA with probe detectionOrdered By: PRESLEY ORTEGA on 09-11-2021 T. vaginalis DNA EMMA+probe Ql (Unsp spec) Negative Negative [facility] Comment on above: Performed at: =G - [employer] [address] [id number] Repairer Screen Crusher: Glory Schaffer MD, Phone: [phone] Urinalysison 09-11-2021 Appearance (U) Clear Normal Clear [facility] Comment on above: Order Comment: Name Collection Type:: Voided Performed By: #### U A, OBUDS #### [facility] [address] [place] [address] [place] Bilirubin,Urine Negative Normal Negative [facility] Comment on above: Order Comment: Name Collection Type:: Voided Performed By: #### U A, OBUDS #### [facility] [address] [place] [address] [place] Color (U) Yellow Normal Yellow [facility] Comment on above: Order Comment: Name Collection Type:: Voided Performed By: #### U A, OBUDS #### [facility] [address] [place] [address] Glucose Ql (U) Normal Normal Normal [facility] Comment on above: Order Comment: Name Collection Type:: Voided Performed By: #### U A, OBUDS #### [facility] [address] [place] [address] [place] Ketones Ql (U) Negative Normal Negative [facility] Comment on above: Order Comment: Name Collection Type:: Voided Performed By: #### U A, OBUDS #### [facility] [address] [place] [address] Leukocyte esterase Test strip Ql (U) Negative Normal Negative [facility] Comment on above: Order Comment: Name Collection Type:: Voided Performed By: #### U A, OBUDS #### [facility] [address] [place] [address] [place] Nitrite,Urine Negative Normal Negative [facility] Comment on above: Order Comment: Name Collection Type:: Voided Performed By: #### U A, OBUDS #### [facility] [address] [place] [address] [place] Occult Blood,Urine Negative Normal Negative [facility] Comment on above: Order Comment: Name Collection Type:: Voided Result Comment: PERF ORMED BY: [place] [address] PATHOLOGIST CLINIC MANAGER SANDY PEREZ M.D. Performed By: #### U A, OBUDS #### [address] pH (U) 6.0 [pH] Normal 5.0-9.0 [facility] Comment on above: Order Comment: Name Collection Type:: Voided Performed By: #### U A, OBUDS #### [address] Protein,Urine Negative Normal Negative [facility] Comment on above: Order Comment: Name Collection Type:: Voided Performed By: #### U A, OBUDS #### [address] Specificy [place],Urine 1.015 Normal 1.001-1.030 [facility] Comment on above: Order Comment: Name Collection Type:: Voided Performed By: #### U A, OBUDS #### [address] Urobilinogen,Urine Normal Normal Normal [facility] Comment on above: Order Comment: Name Collection Type:: Voided Performed By: #### U A, OBUDS #### [address] Urine appearanceOrdered By: PRESLEY ORTEGA on 09-11-2021 Appearance (U) Clear Clear [facility] Urine cocaine detectionOrder ed By: PRESLEY ORTEGA on 09-11-2021 Cocaine Ql (U) Negative Negative [facility] Urine colorOrdered By: PRESLEY ORTEGA on 09-11-2021 Color (U) Yellow Yellow [facility] Urine glucose measurement by automated test strip (mass/volume)Ordered By: PRESLEY ORTEGA on 09-11-2021 Glucose Auto test strip (U) [Mass/Vol] Normal mg/dL Normal [facility] Urine hemoglobin detection b y automated test stripOrdered By: PRESLEY ORTEGA on 09-11-2021 Hemoglobin Auto test strip Ql (U) Negative Negative [facility] Urine leukocyte esterase det ection by automated test stripOrdered By: PRESLEY ORTEGA on 09-11-2021 Leukocyte esterase Auto test strip Ql (U) Negative Negative [facility] Urine nitrite detection by a utomated test stripOrdered By: PRESLEY ORTEGA on 09-11-2021 Nitrite Auto test strip Ql (U) Negative Negative [facility] Urobilinogen Auto test strip (U) [Mass/Vol]Ordered By: PRESLEY ORTEGA on 09-11-2021 Urobilinogen (U) [Mass/Vol] Normal mg/dL Normal [facility] pH Auto test strip (U)Ordere d By: PRESLEY ORTEGA on 09-11-2021 pH (U) 1.015 [pH] 1.001-1.030 [facility] pH (U) 6.0 [pH] 5.0-9.0 [facility] CHEMISTRYOrdered By: SYSTEM SYSTEM on 07-02-2021 Glucose 3 Hr post 75 g glucose PO [Mass/Vol] 59 mg/dL Normal 55 - 140 mg/dL [facility] Remisol Glucose 2 Hr post 75 g glucose PO [Mass/Vol] 100 mg/dL Normal 55 - 155 mg/dL [facility] Remisol Glucose 1 Hr post 75 g glucose PO [Mass/Vol] 169 mg/dL Normal 55 - 180 mg/dL [facility] Remisol Glucose post fast [Mass/Vol] 94 mg/dL Normal 55 - 99 mg/dL [facility] Remisol CHEMISTRYOrdered By: Lab [facility]OP User on 07-02-2021 Glucose [Mass/Vol] 89 mg/dL Normal 55 - 99 mg/dL [facility] POC Subsection POC Device SN [id number] Invalid Interpretation Code [facility] POC Subsection POC User ID [id number] Invalid Interpretation Code [facility] POC Subsection POC Username MYNOR GARCIA Invalid Interpretation Code [facility] POC Subsection URINALYSISOrdered By: Binh Gilliam on 06-13-2021 Bacteria LM Ql (Urine sed) 2+ /HPF Invalid Interpretation Code Trace/HPF [facility] UA Auto SS Bilirubin Ql (U) Negative (06/13/21 10:00 AM) Normal Negative [facility] UA Auto SS Clarity (U) Clear (06/13/21 10:00 AM) Normal Clear [facility] UA Auto SS Color (U) Yellow (06/13/21 10:00 AM) Normal Yellow [facility] UA Auto SS Epithelial cells.squamous LM.HPF (Urine sed) [#/Area] 5-8 /HPF Normal 0-2/HPF [facility] Aut o SS Glucose Test strip (U) [Mass/Vol] Negative (06/13/21 10:00 AM) Normal Negative [facility] UA Auto SS Hemoglobin Ql (U) Negative (06/13/21 10:00 AM) Normal Negative [facility] UA Auto SS Ketones (U) [Mass/Vol] Negative (06/13/21 10:00 AM) Normal Negative [facility] UA Auto SS [place].plasma/[place]. RBC (Bld) [Mass ratio] 0-3 /HPF Normal 0-3/HPF [facility] UA A uto SS Mucus Ql (Urine sed) 3+ (06/13/21 10:00 AM) Normal [facility] UA Auto SS Nitrite Ql (U) Negative (06/13/21 10:00 AM) Normal Negative [facility] UA Auto SS pH (U) 6.5 *NA* (06/13/21 10:00 AM) Invalid Interpretation Code 5.0 - 9.0 [facility] UA Auto SS Protein (U) [Mass/Vol] Negative (06/13/21 10:00 AM) Normal Negative [facility] UA Auto SS Specific gravity (U) [Rel density] 1.015 *NA* (06/13/21 10:00 AM) Invalid Interpretation Code 1.005 - 1.030 [facility] UA Auto SS UA Spec Desc Random Urine (06/13/21 10:00 AM) Normal [facility] UA Auto SS Urobilinogen Qn (U) [id number] {Juma'U}/dL Normal 0.0 - 1.0 EU/dL [facility] Auto SS WBC Auto Ql (U) Negative (06/13/21 10:00 AM) Normal Negative [facility] UA Auto SS WBC LM.HPF (Urine sed) [#/Area] 0-5 /HPF Normal 0-5/HPF [facility] UA Auto SS CHEMISTRYOrdered By: SYSTEM SYSTEM on 06-04-2021 Albumin [Mass/Vol] 2.8 g/dL Low 3.3 - 5.0 gm/dL [facility] Remisol Albumin/Globulin [Mass ratio] 0.7 {ratio} Low 1.1 - 2.2 [facility] Remisol ALP [Catalytic activity/Vol] 84 [iU]/d Normal 21 - 98 Int._Unit/L [facility] Remisol ALT No additional P-5'-P [Catalytic activity/Vol] 10 [iU]/d Normal 6 - 46 Int._Unit/L [facility] Remisol Anion gap [Moles/Vol] 12 mmol/L Normal 6 - 16 mEq/L [facility] Remisol AST [Catalytic activity/Vol] 15 [iU]/d Normal 5 - 43 Int._Unit/L [facility] Remisol Bilirubin [Mass/Vol] 0.9 mg/dL Normal 0.0 - 1 .1 mg/dL [facility] Remisol Calcium [Mass/Vol] 8.6 mg/dL Low 8.9 - 11. 1 mg/dL [facility] Chloride [Moles/Vol] 103 mmol/L Normal 101 - 1 11 mmol/L [facility] CO2 [Moles/Vol] 22 mmol/L Normal 21 - 31 mmol/L [facility] Remisol Creatinine [Mass/Vol] 0.6 mg/dL Normal 0.5 - 1.3 mg/dL [facility] GFR/1.73 sq M.predicted among blacks MDRD (S/P/Bld) [Vol rate/Area] mL/min/1.73 m2 Normal >=59mL/min/1 .73 m2 [facility] Chem S GFR/1.73 sq M.predicted among non-blacks MDRD (S/P/Bld) [Vol rate/Area] mL/min/1.73 m2 Normal >=59mL/min/1 .73 m2 [facility] Chem S Globulin (S) [Mass/Vol] 3.8 g/dL Normal 1.4 - 4.0 gm/dL [facility] Glucose [Mass/Vol] 105 mg/dL Normal 55 - 199 mg/dL [facility] Lipase [Catalytic activity/Vol] 28 U/L Normal 13 - 58 unit/L [facility] Remisol Potassium [Moles/Vol] 3.3 mmol/L Low 3.5 - 5.3 mmol/L [facility] Remisol Protein [Mass/Vol] 6.6 g/dL Normal 6.0 - 7.8 gm/dL [facility] Remisol Sodium [Moles/Vol] 134 mmol/L Low 135 - 145 mmol/L [facility] Remisol Urea nitrogen [Mass/Vol] 7 mg/dL Normal 5 - 21 mg/dL [facility] Remisol Urea nitrogen/Creatinine [Mass ratio] 12 mg/mg Normal 10 - 20 [facility] Rem[facility] HEMATOLOGYOrdered By: SYSTEM SYSTEM on 06-04-2021 Basophils/100 WBC (Bld) 0.2 % Normal 0.0 - 2.0 % [facility]eAutoSS Basophils/Leukocytes Auto (Bld) [Pure # fraction] 0.0 E9/L Normal 0.0 - 0.2 E9/L [facility] Eosinophils/100 WBC (Bld) 1.3 % Normal 0.0 - 8.0 % [facility]Auto[facility] Eosinophils/Leukocytes Auto (Bld) [Pure # fraction] 0.1 E9/L Normal 0.0 - 0.5 E9/L [facility] Lymphocytes/100 WBC (Bld) 13.2 % Low 14.0 - 50.0 % [facility]Auto[facility] Lymphocytes/Leukocytes Auto (Bld) [Pure # fraction] 1.4 E9/L Normal 1.0 - 4.0 E9/L [facility]Auto[facility] Monocytes/100 WBC (Bld) 8.2 % Normal 4.0 - 14.0 % [facility]eAutoSS Monocytes/Leukocytes Auto (Bld) [Pure # fraction] 0.9 E9/L Normal 0.2 - 1.0 E9/L [facility] Neutrophils/100 WBC (Bld) 77.1 % High 36.0 - 75.0 % [facility]Auto[facility] Neutrophils/Leukocytes Auto (Bld) [Pure # fraction] 8.0 E9/L High 2.0 - 7.5 E9/L [facility] HEMATOLOGYOrdered By: Leigh Ann Paulson on 06-04-2021 Erythrocyte distribution width (RBC) [Ratio] 13.7 % Normal 10.9 - 14.2 % [facility]eAuto[facility] Hematocrit (Bld) [Volume fraction] 36.4 % Normal 34.0 - 46.0 % [facility]eAutoSS Hemoglobin (Bld) [Mass/Vol] 12.6 g/dL Normal 12.0 - 16.0 gm/dL [facility]eAutoSS MCH (RBC) [Entitic mass] 29.3 pg Normal 27.0 - 34.0 pg [facility] MCHC (RBC) [Mass/Vol] 34.6 g/dL Normal 31.4 - 36.0 gm/dL [facility]Auto[facility] MCV (RBC) [Entitic vol] 84.9 fL Normal 80.0 - 100.0 fL [facility] Platelet mean volume (Bld) [Entitic vol] 7.1 fL Normal 6.4 - 10.8 fL [facility]eAutoSS Platelets (Bld) [#/Vol] 240.0 E9/L Normal 150. 0 - 500.0 E9/L [facility] RBC (Bld) [#/Vol] 4.3 E12/L Normal 4.3 - 5.9 E12/L [facility]eAutoSS WBC corrected for nucl RBC Auto (Bld) [#/Vol] 10.4 E9/L Normal 4.0 - 11.0 E9/L [facility]eAutoSS CHEMISTRYOrdered By: SYSTEM SYSTEM on 05-30-2021 Glucose 1 Hr post 75 g glucose PO [Mass/Vol] 199 mg/dL High 55 - 180 mg/dL [facility] Remisol HEMATOLOGYOrdered By: Minna King on 05-30-2021 Hematocrit (Bld) [Volume fraction] 35.0 % Normal 34.0 - 46.0 % [facility] HemeAutoSS Hemoglobin (Bld) [Mass/Vol] 12.3 g/dL Normal 12.0 - 16.0 gm/dL [facility] HemeAutoSS CBC AUTO DIFFon 02-11-2021 BASO # 0.1 103/ul Normal 0.0-0.1 [facility] Comment on above: Performed By: #### C BC #### [facility] [address] [place] [address] Dr. Shola Randolph Basophils/100 WBC (Bld) 0.4 % Normal 0.2-2.0 [facility] Comment on above: Performed By: #### C BC #### [facility] [address] [address] [address] Shola Randolph EO # 0.5 103/ul Normal 0.0-0.7 [facility] Comment on above: Performed By: #### C BC #### [facility] [address] [address] [address] Shola Randolph Eosinophils/100 WBC (Bld) 3.9 % Normal 0.9-7.0 [facility] Comment on above: Performed By: #### C BC #### [facility] [address] [place] [address] Dr. Shola Randolph Erythrocyte distribution width (RBC) [Ratio] 13.3 % Normal 11.0-15.0 [facility] Comment on above: Performed By: #### C BC #### [facility] [address] [place] [address] Dr. Shola Randolph Hematocrit (Bld) [Volume fraction] 42.0 % Normal 36.0-48.0 [facility] Comment on above: Performed By: #### C BC #### [facility] [address] [place] [address] Dr. Shola Randolph Hemoglobin (Bld) [Mass/Vol] 13.9 g/dL Normal 12.0-16.0 [facility] Comment on above: Performed By: #### C BC #### [facility] [address] [place] [address] Dr. Shola Randolph IG # 0.04 10e3/ul Critically high 0.00-0.03 [facility] Comment on above: Performed By: #### C BC #### [facility] [address] [place] [address] Dr. Shola Randolph IG % 0.3 % Normal 0.0-0.5 [facility] Comment on above: Performed By: #### C BC #### [facility] [address] [place] [address] Dr. Shola Randolph LYMPH # 2.5 103/ul Normal 1.2-3.8 [facility] Comment on above: Performed By: #### C BC #### [facility] [address] [place] [address] Dr. Shola Randolph Lymphocytes/100 WBC (Bld) 20.2 % Critically low 20.5-60.0 [facility] Comment on above: Performed By: #### C BC #### [facility] [address] [place] [address] Dr. Shola Randolph MANUAL DIFF REQ NO Normal [facility] Comment on above: Performed By: #### C BC #### [facility] [address] [address] [address] Shola Randolph MCH (RBC) [Entitic mass] 28.7 pg Normal 26.7-34.0 [facility] Comment on above: Performed By: #### C BC #### [facility] [address] [address] [address] Shola Randolph MCHC (RBC) [Mass/Vol] 33.1 g/dL Normal 29.9-35.2 [facility] Comment on above: Performed By: #### C BC #### [facility] [address] [place] [address] Dr. Shola Randolph MCV (RBC) [Entitic vol] 86.6 fL Normal 81.0-99.0 [facility] Comment on above: Performed By: #### C BC #### [facility] [address] [place] [address] Dr. Shola Randolph MONO # 0.8 103/ul Normal 0.3-0.8 [facility] Comment on above: Performed By: #### C BC #### [facility] [address] [place] [address] Dr. Shola Randolph Monocytes/100 WBC (Bld) 6.5 % Normal 1.7-12.0 [facility] Comment on above: Performed By: #### C BC #### [facility] [address] [place] [address] Dr. Shola Randolph NEUT # 8.5 103/ul Critically high 1.4-6.5 [facility] Comment on above: Performed By: #### C BC #### [facility] [address] [place] [address] Dr. Shola Randolph Neutrophils/100 WBC (Bld) 68.7 % Normal 43.0-75.0 [facility] Comment on above: Performed By: #### C BC #### [facility] [address] [place] [address] Dr. Shola Randolph Platelet mean volume (Bld) [Entitic vol] 8.4 fL Critically low 9.5-13.5 [facility] Comment on above: Performed By: #### C BC #### [facility] [address] [address] [address] Shola Randolph PLT 246 103/ul Normal 150-450 [facility] Comment on above: Performed By: #### C BC #### [facility] [address] [address] [address] Shola Randolph RBC 4.85 106/ul Normal 4.20-5.40 [facility] Comment on above: Performed By: #### C BC #### [facility] [address] [place] [address] Dr. Shola Randolph WBC 12.4 103/ul Critically high 4.0-11.0 [facility] Comment on above: Performed By: #### C BC #### [facility] [address] [place] [address] Dr. Shola Randolph PROF 14(COMP METB)on 021 Albumin [Mass/Vol] 3.3 g/dL Critically low 3.5-5.0 [facility] Comment on above: Performed By: #### C MP #### [facility] [address] [place] [address] Dr. Shola Randolph Albumin/Globulin [Mass ratio] 0.8 {ratio} Normal [facility] Comment on above: Performed By: #### C MP #### [facility] [address] [place] [address] Dr. Shola Randolph ALP [Catalytic activity/Vol] 76 U/L Normal 38-126 [facility] Comment on above: Performed By: #### C MP #### [facility] [address] [place] [address] Dr. Shola Randolph ALT [Catalytic activity/Vol] 25 U/L Normal 9-52 [facility] Comment on above: Performed By: #### C MP #### [facility] [address] [place] [address] Dr. Shola Randolph Anion gap [Moles/Vol] 12.4 mmol/L Normal [facility] Comment on above: Performed By: #### C MP #### [facility] [address] [address] [address] Shola Radnolph AST [Catalytic activity/Vol] 15 U/L Normal 14-36 [facility] Comment on above: Performed By: #### C MP #### [facility] [address] [place] [address] Dr. Shola Randolph Bilirubin [Mass/Vol] 0.3 mg/dL Normal 0.2-1.3 [facility] Comment on above: Performed By: #### C MP #### [facility] [address] [place] [address] Dr. Shola Randolph Calcium [Mass/Vol] 8.8 mg/dL Normal 8.4-10.2 [facility] Comment on above: Performed By: #### C MP #### [facility] [address] [place] [address] Dr. Shola Randolph Chloride [Moles/Vol] 102 mmol/L Normal 98-107 [facility] Comment on above: Performed By: #### C MP #### [facility] [address] [place] [address] Dr. Shola Randolph CO2 [Moles/Vol] 25.5 mmol/L Normal 22.0-30.0 [facility] Comment on above: Performed By: #### C MP #### [facility] [address] [place] [address] Dr. Shola Randolph Creatinine [Mass/Vol] 0.81 mg/dL Normal 0.52-1.04 [facility] Comment on above: Performed By: #### C MP #### [facility] [address] [place] [address] Dr. Shola Randolph EGFR-AF [place] >60 Normal >=60 [facility] Comment on above: Performed By: #### C MP #### [facility] [address] [place] [address] Dr. Shola Randolph EGFR-NON AF [place] >60 Normal >=60 [facility] Comment on above: Performed By: #### C MP #### [facility] [address] [place] [address] Dr. Shola Randolph Globulin (S) [Mass/Vol] 4.4 g/dL Normal [facility] Comment on above: Performed By: #### C MP #### [facility] [address] [place] [address] Dr. Shola Randolph Glucose [Mass/Vol] 88 mg/dL Normal 74-106 [facility] Comment on above: Performed By: #### C MP #### [facility] [address] [address] [address] Shola Randolph Potassium [Moles/Vol] 3.9 mmol/L Normal 3.4-5.0 [facility] Comment on above: Performed By: #### C MP #### [facility] [address] [place] [address] Dr. Shola Randolph Protein [Mass/Vol] 7.7 g/dL Normal 6.1-8.2 [facility] Comment on above: Performed By: #### C MP #### [facility] [address] [place] [address] Dr. Shola Randolph Sodium [Moles/Vol] 136 mmol/L Critically low 137-145 [facility] Comment on above: Performed By: #### C MP #### [facility] [address] [place] [address] Dr. Shola Randolph Urea nitrogen [Mass/Vol] 9.0 mg/dL Normal 7.0-17.0 [facility] Comment on above: Performed By: #### C MP #### [facility] [address] [place] [address] Dr. Shola Randolph Urea nitrogen/Creatinine [Mass ratio] 11.1 mg/mg Normal [facility] Comment on above: Performed By: #### C MP #### [facility] [address] [place] [address] Dr. Shola Randolph Vital Signs Date Time Vital Sign Value Performing Clinician Facility 04-18-2024 14:08-0500 Diastolic blood pressure 96 mm[Hg] [facility] 04-18-2024 14:08-0500 Heart rate 85 /min [facility] 04-18-2024 14:08-0500 Respiratory rate 20 /min [facility] 04-18-2024 14:08-0500 SaO2% (BldA) [Mass fraction] 99 % [facility] 04-18-2024 14:08-0500 Systolic blood pressure 136 mm[Hg] [facility] 04-18-2024 11:41-0500 Body temperature 98.06 [degF] [facility] 04-18-2024 11:41-0500 Diastolic blood pressure 94 mm[Hg] [facility] 04-18-2024 11:41-0500 Heart rate 106 /min [facility] 04-18-2024 11:41-0500 Respiratory rate 22 /min [facility] 04-18-2024 11:41-0500 SaO2% (BldA) [Mass fraction] 98 % [facility] 04-18-2024 11:41-0500 Systolic blood pressure 144 mm[Hg] [facility] 10-10-2023 10:13-0400 Blood Pressure Location [facility] 10-10-2023 10:13-0400 Body temperature 98.06 [degF] [facility] 10-10-2023 10:13-0400 Diastolic blood pressure 74 mm[Hg] RE[facility] 10-10-2023 10:13-0400 Heart rate 80 /min [facility] 10-10-2023 10:13-0400 Respiratory rate 15 /min RE[facility] 10-10-2023 10:13-0400 SaO2% (BldA) [Mass fraction] 98 % [facility] 10-10-2023 10:13-0400 Systolic blood pressure 122 mm[Hg] [facility] 07-08-2023 13:59-0400 Heart rate 107 /min Jagdish Shaun [facility] 07-08-2023 13:59-0400 Respiratory rate 14 /min Jagdish Shaun [facility] 07-08-2023 13:59-0400 SaO2% (BldA) [Mass fraction] 98 % Jagdish Shaun [facility] 07-08-2023 12:49-0400 Body temperature 97.7 [degF] Jagdish Shaun [facility] 07-08-2023 12:49-0400 Diastolic blood pressure 94 mm[Hg] Jagdish Shaun [facility] 07-08-2023 12:49-0400 Heart rate 120 /min Jagdish Shaun [facility] 07-08-2023 12:49-0400 Respiratory rate 15 /min Jagdish Shaun [facility] 07-08-2023 12:49-0400 SaO2% (BldA) [Mass fraction] 97 % Jagdish Shaun [facility] 07-08-2023 12:49-0400 Systolic blood pressure 134 mm[Hg] Jagdish Shaun [facility] 07-06-2023 08:45-0400 Blood Pressure Location REY ALAS [facility] 07-06-2023 08:45-0400 Diastolic blood pressure 86 mm[Hg] REY ALAS [facility] 07-06-2023 08:45-0400 Heart rate 78 /min REY ALAS [facility] 07-06-2023 08:45-0400 SaO2% (BldA) [Mass fraction] 99 % REY [facility] 07-06-2023 08:45-0400 Systolic blood pressure 126 mm[Hg] REY ALAS [facility] 01-11-2023 19:48-0500 Diastolic blood pressure 96 mm[Hg] Jagdish Shaun [facility] 01-11-2023 19:48-0500 Heart rate 84 /min Ajgdish Shaun [facility] 01-11-2023 19:48-0500 Mean blood pressure 108 mm[Hg] Jagdish Shaun [facility] 01-11-2023 19:48-0500 Respiratory rate 13 /min Jagdish Shaun [facility] 01-11-2023 19:48-0500 SaO2% (BldA) [Mass fraction] 97 % Jagdish Shaun [facility] 01-11-2023 19:48-0500 Systolic blood pressure 131 mm[Hg] Jagdish Shaun [facility] 01-11-2023 19:30-0500 Heart rate 85 /min Jagdish Shaun [facility] 01-11-2023 19:30-0500 Respiratory rate 17 /min Jagdish Shaun [facility] 01-11-2023 19:30-0500 SaO2% (BldA) [Mass fraction] 97 % Jagdish Dunn [facility] 01-11-2023 19:00-0500 Diastolic blood pressure 95 mm[Hg] Jagdish Shaun [facility] 01-11-2023 19:00-0500 Heart rate 87 /min Jagdish Shaun [facility] 01-11-2023 19:00-0500 Mean blood pressure 107 mm[Hg] Jagdish Dunn [facility] 01-11-2023 19:00-0500 Respiratory rate 11 /min Jagdish Shaun [facility] 01-11-2023 18:00-0500 Diastolic blood pressure 94 mm[Hg] Jagdish Shaun [facility] 01-11-2023 18:00-0500 Systolic blood pressure 135 mm[Hg] Jagdish Shaun [facility] 01-11-2023 16:10-0500 Body temperature 98.06 [degF] Jagdish Shaun [facility] 01-11-2023 16:10-0500 Heart rate 110 /min Jagdish Shaun [facility] 01-11-2023 16:10-0500 Respiratory rate 18 /min Jagdish Shaun [facility] 01-08-2023 14:21-0500 Body temperature 98.6 [degF] [facility] 01-08-2023 14:21-0500 Diastolic blood pressure 75 mm[Hg] [facility] 01-08-2023 14:21-0500 Heart rate 76 /min [facility] 01-08-2023 14:21-0500 Respiratory rate 18 /min [facility] 01-08-2023 14:21-0500 SaO2% (BldA) [Mass fraction] 97 % [facility] 01-08-2023 14:21-0500 Systolic blood pressure 116 mm[Hg] [facility] 01-08-2023 12:45-0500 Body temperature 98.24 [degF] [facility] 01-08-2023 12:45-0500 Diastolic blood pressure 79 mm[Hg] [facility] 01-08-2023 12:45-0500 Heart rate 110 /min [facility] 01-08-2023 12:45-0500 Respiratory rate 24 /min [facility] 01-08-2023 12:45-0500 SaO2% (BldA) [Mass fraction] 100 % [facility] 01-08-2023 12:45-0500 Systolic blood pressure 117 mm[Hg] [facility] 01-06-2023 16:45-0500 Diastolic blood pressure 87 mm[Hg] Jesus Sheetse [facility] 01-06-2023 16:45-0500 Heart rate 98 /min Jesus Sheetse [facility] 01-06-2023 16:45-0500 Mean blood pressure 97 mm[Hg] Jesus Sheetse [facility] 01-06-2023 16:45-0500 Respiratory rate 20 /min Jesus Sheetse [facility] 01-06-2023 16:45-0500 SaO2% (BldA) [Mass fraction] 97 % Jesus Sheetse [facility] 01-06-2023 16:45-0500 Systolic blood pressure 118 mm[Hg] Jesus Sheetse [facility] 01-06-2023 16:15-0500 Diastolic blood pressure 85 mm[Hg] Jesus Armen [facility] 01-06-2023 16:15-0500 Heart rate 98 /min Jesus Armen [facility] 01-06-2023 16:15-0500 Mean blood pressure 99 mm[Hg] Jesus Armen [facility] 01-06-2023 16:15-0500 Respiratory rate 18 /min Jesus Armen [facility] 01-06-2023 16:15-0500 SaO2% (BldA) [Mass fraction] 96 % Jesus Armen [facility] 01-06-2023 16:15-0500 Systolic blood pressure 127 mm[Hg] Jesus Armen [facility] 01-06-2023 15:45-0500 Diastolic blood pressure 87 mm[Hg] Jesus Armen [facility] 01-06-2023 15:45-0500 Heart rate 98 /min Jesus Armen [facility] 01-06-2023 15:45-0500 Mean blood pressure 102 mm[Hg] Jesus Armen [facility] 01-06-2023 15:45-0500 Respiratory rate 18 /min Jesus Armen [facility] 01-06-2023 15:45-0500 SaO2% (BldA) [Mass fraction] 97 % Jesus Armen [facility] 01-06-2023 15:45-0500 Systolic blood pressure 131 mm[Hg] Jesus Armen [facility] 01-06-2023 15:15-0500 Heart rate 114 /min Jesus Armen [facility] 01-06-2023 14:48-0500 Body temperature 102.02 [degF] Jesus Ayers [facility] 01-06-2023 14:48-0500 Heart rate 115 /min Jesus Ayers [facility] 10-17-2022 17:02-0400 Diastolic blood pressure 69 mm[Hg] Jagdish Shaun [facility] 10-17-2022 17:02-0400 Heart rate 66 /min Jagdish Shaun [facility] 10-17-2022 17:02-0400 Mean blood pressure 79 mm[Hg] Jagdish Shaun [facility] 10-17-2022 17:02-0400 Respiratory rate 18 /min Jagdish Shaun [facility] 10-17-2022 17:02-0400 SaO2% (BldA) [Mass fraction] 98 % Jagdish Shaun [facility] 10-17-2022 17:02-0400 Systolic blood pressure 100 mm[Hg] Jagdish Shaun [facility] 10-17-2022 16:43-0400 Hourly Rounding Jagdish Shaun [facility] 10-17-2022 16:43-0400 Promise to Return Jagdish Shaun [facility] 10-17-2022 16:42-0400 Diastolic blood pressure 65 mm[Hg] Jagdish Shaun [facility] 10-17-2022 16:42-0400 Heart rate 62 /min Jagdish Shaun [facility] 10-17-2022 16:42-0400 Mean blood pressure 80 mm[Hg] Jagdish Shaun [facility] 10-17-2022 16:42-0400 Respiratory rate 18 /min Jagdish Shaun [facility] 10-17-2022 16:42-0400 SaO2% (BldA) [Mass fraction] 99 % Jagdish Shaun [facility] 10-17-2022 16:42-0400 Systolic blood pressure 111 mm[Hg] Jagdish Shaun [facility] 10-17-2022 15:43-0400 Diastolic blood pressure 69 mm[Hg] Jagdish Shaun [facility] 10-17-2022 15:43-0400 Heart rate 68 /min Jagdish Shaun [facility] 10-17-2022 15:43-0400 Hourly Rounding Jagdish Shaun [facility] 10-17-2022 15:43-0400 Mean blood pressure 83 mm[Hg] Jagdish Shaun [facility] 10-17-2022 15:43-0400 Promise to Return Jagdishmiguel ángel Dunn [facility] 10-17-2022 15:43-0400 Respiratory rate 18 /min Jagdish Shaun [facility] 10-17-2022 15:43-0400 SaO2% (BldA) [Mass fraction] 100 % Jagdish Shaun [facility] 10-17-2022 15:43-0400 Systolic blood pressure 111 mm[Hg] Jagdish Shaun [facility] 10-17-2022 14:49-0400 Hourly Rounding Jagdish Shaun [facility] 10-17-2022 14:49-0400 Promise to Return Jagdish Dunn [facility] 10-17-2022 13:04-0400 Body temperature 98.06 [degF] Jagdish Dunn [facility] 10-17-2022 13:04-0400 Heart rate 93 /min Jagdish Dunn [facility] 02-17-2022 21:00-0500 Diastolic blood pressure 91 mm[Hg] Jagdish Dunn [facility] 02-17-2022 21:00-0500 Heart rate 86 /min Jagdish Dunn [facility] 02-17-2022 21:00-0500 Mean blood pressure 106 mm[Hg] Jagdish Dunn [facility] 02-17-2022 21:00-0500 Respiratory rate 20 /min Jagdish Dunn [facility] 02-17-2022 21:00-0500 SaO2% (BldA) [Mass fraction] 98 % Jagdish Dunn [facility] 02-17-2022 21:00-0500 Systolic blood pressure 136 mm[Hg] Jagdish Dunn [facility] 02-17-2022 20:00-0500 Diastolic blood pressure 81 mm[Hg] Jagdish Shaun [facility] 02-17-2022 20:00-0500 Heart rate 91 /min Jagdihs Shaun [facility] 02-17-2022 20:00-0500 Mean blood pressure 96 mm[Hg] Jagdish Shaun [facility] 02-17-2022 20:00-0500 Respiratory rate 16 /min Jagdish Shaun [facility] 02-17-2022 20:00-0500 Systolic blood pressure 125 mm[Hg] Jagdish Dunn [facility] 02-17-2022 19:44-0500 Diastolic blood pressure 98 mm[Hg] Jagdish Shaun [facility] 02-17-2022 19:44-0500 Heart rate 99 /min Jagdish Shaun [facility] 02-17-2022 19:44-0500 Mean blood pressure 112 mm[Hg] Jagdish Dunn [facility] 02-17-2022 19:44-0500 Respiratory rate 19 /min Jagdish Dunn [facility] 02-17-2022 19:44-0500 SaO2% (BldA) [Mass fraction] 97 % Jagdish Dunn [facility] 02-17-2022 19:44-0500 Systolic blood pressure 140 mm[Hg] Jagdish Dunn [facility] 02-17-2022 16:14-0500 Body temperature 98.96 [degF] Jagdish Dunn [facility] 02-17-2022 16:14-0500 Heart rate 112 /min Jagdish Dunn [facility] 11-10-2021 12:13-0400 Body temperature 97.88 [degF] Jesus Sheetse [facility] 11-10-2021 12:13-0400 Diastolic blood pressure 88 mm[Hg] Jesus Ayers [facility] 11-10-2021 12:13-0400 Heart rate 93 /min Jesus Ayers [facility] 11-10-2021 12:13-0400 Respiratory rate 16 /min Jesus Ayers [facility] 11-10-2021 12:13-0400 SaO2% (BldA) [Mass fraction] 99 % Jesus Ayers [facility] 11-10-2021 12:13-0400 Systolic blood pressure 128 mm[Hg] Jesus Ayers [facility] 09-14-2021 16:00-0400 Diastolic blood pressure 98 mm[Hg] PHYSICIAN NO [facility] 09-14-2021 16:00-0400 Heart rate 106 /min PHYSICIAN NO [facility] 09-14-2021 16:00-0400 Respiratory rate 16 /min PHYSICIAN NO [facility] 09-14-2021 16:00-0400 SaO2% (BldA) [Mass fraction] 97 % PHYSICIAN NO [facility] 09-14-2021 16:00-0400 Systolic blood pressure 138 mm[Hg] PHYSICIAN NO [facility] 09-14-2021 08:00-0400 Body temperature 97.3 [degF] PHYSICIAN NO [facility] 09-11-2021 21:30-0400 Body height 165.1 cm PHYSICIAN NO [facility] 09-11-2021 21:30-0400 Body weight 111.13 kg PHYSICIAN NO [facility] 07-17-2021 11:18-0400 Diastolic blood pressure 80 mm[Hg] Jagdish Dunn [facility] 07-17-2021 11:18-0400 Heart rate 82 /min Jagdish Dunn [facility] 07-17-2021 11:18-0400 Respiratory rate 82 /min Jagdish Dunn [facility] 07-17-2021 11:18-0400 SaO2% (BldA) [Mass fraction] 99 % Jagdish uDnn [facility] 07-17-2021 11:18-0400 Systolic blood pressure 131 mm[Hg] Jagdish Dunn [facility] 07-17-2021 09:28-0400 Body temperature 97.88 [degF] Jagdish Dunn [facility] 07-17-2021 09:28-0400 Diastolic blood pressure 98 mm[Hg] Jagdish Dunn [facility] 07-17-2021 09:28-0400 Heart rate 85 /min Jagdish Dunn [facility] 07-17-2021 09:28-0400 Respiratory rate 18 /min Jagdish Dunn [facility] 07-17-2021 09:28-0400 SaO2% (BldA) [Mass fraction] 98 % Jagdish Dunn [facility] 07-17-2021 09:28-0400 Systolic blood pressure 145 mm[Hg] Jagdish Dunn [facility] 06-13-2021 12:30-0400 Hourly Rounding Una Qamar [facility] Comment on above: Result Comment: Pt eats her entire lunch without nausea; states the protonix took her nausea away. 06-13-2021 10:45-0400 Blood Pressure Location Una Foote [facility] 06-13-2021 10:45-0400 Diastolic blood pressure 77 mm[Hg] Una Foote [facility] 06-13-2021 10:45-0400 Heart rate 81 /min Una Foote [facility] 06-13-2021 10:45-0400 Mean blood pressure 92 mm[Hg] Una Foote [facility] 06-13-2021 10:45-0400 Respiratory rate 20 /min Una Foote [facility] 06-13-2021 10:45-0400 Systolic blood pressure 122 mm[Hg] Una Foote [facility] 06-13-2021 10:06-0400 Body temperature 98.06 [degF] Una Foote [facility] 06-13-2021 10:06-0400 Diastolic blood pressure 79 mm[Hg] Una Foote [facility] 06-13-2021 10:06-0400 Heart rate 83 /min Una Foote [facility] 06-13-2021 10:06-0400 Mean blood pressure 96 mm[Hg] Una Foote [facility] 06-13-2021 10:06-0400 Respiratory rate 20 /min Una Foote [facility] 06-13-2021 10:06-0400 Systolic blood pressure 131 mm[Hg] Una Foote [facility] 06-13-2021 10:00-0400 Blood Pressure Location Una Foote [facility] 06-04-2021 16:17-0400 Diastolic blood pressure 77 mm[Hg] [facility] 06-04-2021 16:17-0400 Heart rate 92 /min [facility] 06-04-2021 16:17-0400 Mean blood pressure 90 mm[Hg] [facility] 06-04-2021 16:17-0400 Respiratory rate 15 /min [facility] 06-04-2021 16:17-0400 SaO2% (BldA) [Mass fraction] 97 % [facility] 06-04-2021 16:17-0400 Systolic blood pressure 117 mm[Hg] [facility] 06-04-2021 15:07-0400 Diastolic blood pressure 86 mm[Hg] [facility] 06-04-2021 15:07-0400 Heart rate 99 /min [facility] 06-04-2021 15:07-0400 Mean blood pressure 106 mm[Hg] [facility] 06-04-2021 15:07-0400 Respiratory rate 17 /min [facility] 06-04-2021 15:07-0400 SaO2% (BldA) [Mass fraction] 100 % [facility] 06-04-2021 15:07-0400 Systolic blood pressure 146 mm[Hg] [facility] 06-04-2021 14:34-0400 Body temperature 98.6 [degF] [facility] 06-04-2021 14:34-0400 Diastolic blood pressure 87 mm[Hg] [facility] 06-04-2021 14:34-0400 Heart rate 105 /min [facility] 06-04-2021 14:34-0400 Mean blood pressure 108 mm[Hg] [facility] 06-04-2021 14:34-0400 Respiratory rate 18 /min [facility] 06-04-2021 14:34-0400 SaO2% (BldA) [Mass fraction] 96 % [facility] 06-04-2021 14:34-0400 Systolic blood pressure 149 mm[Hg] [facility] 05-13-2021 12:49-0400 Body temperature 97.7 [degF] Ariadne Murray [facility] 05-13-2021 12:49-0400 Diastolic blood pressure 70 mm[Hg] Ariadne Murray [facility] 05-13-2021 12:49-0400 Heart rate 88 /min Ariadne Murray [facility] 05-13-2021 12:49-0400 SaO2% (BldA) [Mass fraction] 98 % Ariadne Murray [facility] 05-13-2021 12:49-0400 Systolic blood pressure 110 mm[Hg] Ariadne Murray [facility] Encounters Encounter Date Encounter Type Care Provider Facility Start: 05-24-2024 End: 05-24-2024 Clinisync Result Encounter Zack Angel DO Work Phone: [facility] Unsolicited Start: 05-24-2024 End: 05-24-2024 Clinisync Result Encounter Zack Angel DO Work Phone: [facility] Unsolicited Start: 05-18-2024 End: 05-18-2024 Office outpatient visit 5 minutes [facility] Angel Nurse [facility] Comment on above: GA: 11w1d Start: 05-18-2024 End: 05-18-2024 ambulatory Not Available Start: 04-27-2024 End: 04-27-2024 ambulatory RESEARCH SOFTWARE ENGINEER-C REY ALAS Facility:[facility] Start: 04-25-2024 ambulatory RESEARCH SOFTWARE ENGINEER-C REY ALAS Facility:[facility] Start: 04-18-2024 End: 04-18-2024 Emergency department patient visit Alva Cuellaraspen [facility] Start: 11-07-2023 ambulatory RESEARCH SOFTWARE ENGINEER-C REY ALAS Facility:[facility] Start: 10-19-2023 End: 10-19-2023 ambulatory RESEARCH SOFTWARE ENGINEER-C REY ALAS Facility:[facility] Start: 10-19-2023 End: 10-19-2023 Patient encounter procedure REY ALAS [facility] Start: 10-10-2023 End: 10-10-2023 ambulatory RESEARCH SOFTWARE ENGINEER-C REY ALAS Facility:[facility] Start: 10-10-2023 End: 10-10-2023 Patient encounter procedure REY ALAS [facility] Start: 07-25-2023 End: 07-25-2023 ambulatory RESEARCH SOFTWARE ENGINEER-C REY ALAS Facility:[facility] Start: 07-25-2023 End: 07-25-2023 Patient encounter procedure REY ALAS [facility] Start: 07-08-2023 End: 07-08-2023 Emergency department patient visit Jagdish Dunn [facility] Start: 07-06-2023 End: 07-06-2023 ambulatory RESEARCH SOFTWARE ENGINEER-C REY ALAS Facility:[facility] Start: 07-06-2023 End: 07-06-2023 Patient encounter procedure REY ALAS [facility] Start: 01-14-2023 End: 01-14-2023 Patient encounter procedure Ricarda Garcia [facility] Start: 01-11-2023 End: 01-11-2023 Emergency department patient visit Jagdish Dunn [facility] Start: 01-08-2023 End: 01-08-2023 Emergency department patient visit Alva Jo [facility] Start: 01-06-2023 End: 01-06-2023 Emergency department patient visit Jesus Armen [facility] Start: 10-17-2022 End: 10-17-2022 Emergency department patient visit Jagdish Dunn [facility] Start: 02-17-2022 End: 02-17-2022 Emergency department patient visit Jagdish Dunn [facility] Start: 11-10-2021 End: 11-10-2021 Emergency department patient visit Jesus Ayers [facility] Start: 09-11-2021 End: 09-14-2021 Evaluation and management of inpatient Presley Ortega Facility:[facility] Start: 09-11-2021 End: 09-14-2021 Evaluation and management of inpatient PHYSICIAN NO [facility] Start: 08-14-2021 End: 09-14-2021 Pre-admission assessment Presley Ortega [facility] Start: 08-12-2021 End: 08-12-2021 Lab Drop off Presley Ortega [facility] Start: 07-17-2021 End: 07-17-2021 Emergency department patient visit Jagdish Dunn [facility] Start: 07-02-2021 End: 07-02-2021 Patient encounter procedure Jennifer SUERO [facility] Start: 06-14-2021 End: 07-15-2021 Pre-admission assessment Una Foote [facility] Start: 06-13-2021 End: 06-13-2021 OB Triage Una Foote [facility] Start: 06-04-2021 End: 06-04-2021 Emergency department patient visit Alva Jo [facility] Start: 05-30-2021 End: 05-30-2021 Patient encounter procedure Presley Ortega [facility] Start: 2021 End: 06-14-2021 Pre-admission assessment Presley Ortega [facility] Start: 05-13-2021 End: 05-13-2021 Patient encounter procedure Ariadne Murray [facility] Start: 02-11-2021 End: 02-11-[address] RORO GARNER Facility: Procedures Date Procedure Procedure Detail Performing Clinician Start: 05-24-2024 BOX TEST Zack Fazi o DO Work Phone: Start: 05-22-2024 Urine test visual color cmprsn meths Zack Angel DO Work Phone: Cholecystectomy Ariadne Murray denies Ariadne Murray SARS Antigen (LFIA) PHYSICIA N NO FAMILY Plan of Treatment Date Care Activity Detail Author Start: 10-15-2024 Influenza vaccination Influenz a Vaccine (Season Ended) [facility] Start: 06-18-2024 End: 06-18-2024 Patient encounter procedure 06/18/2024 1:40 PM EDT Routine [facility] [address] [place] [address] Zack Ortiz DO [address] [place] [address] [facility] Start: 05-18-2024 End: 05-18-2025 ABO/Rh ABO/Rh Lab Routine Missed menses , unspecified gestational age Expected: 05/18/2024 (Approximate), Expires: 05/18/2025 [facility] Comment on above: Expected: 05/18/2024 (Approximate), Expires: 05/18/2025 Start: 05-18-2024 End: 05-18-2025 Blood type and Indirect antibody screen panel - Blood Type and screen Lab Routine Missed menses , unspecified gestational age Expected: 05/18/2024 (Approximate), Expires: 05/18/2025 [facility] Work Phone: Comment on above: Expected: 05/18/2024 (Approximate), Expires: 05/18/2025 Start: 05-18-2024 End: 05-18-2025 Drugs of abuse panel - Urine by Screen method Rapid drug screen, urine Lab Routine , unspecified gestational age Encounter for supervision of normal first in first trimester Expected: 05/18/2024 (Approximate), Expires: 05/18/2025 [facility] Comment on above: Expected: 05/18/2024 (Approximate), Expires: 05/18/2025 Start: 09-14-2021 [facility] Work Phone: Start: 09-12-2021 Hospital admission [facility] Work Phone: Start: 09-11-2021 Delivery of Products of Conception, External Approach Delivery of Products of Conception, External Approach [facility] Start: 09-11-2021 Division of Female Perineum, External Approach Division of Female Perineum, External Approach [facility] Start: 09-11-2021 Drainage of Amniotic Fluid, Therapeutic from Products of Conception, Via Natural or Artificial Opening Drainage of Amniotic Fluid, Therapeutic from Products of Conception, Via Natural or Artificial Opening [facility] Bacteria identified in Urine by Culture Urine culture Microbiology Routine Missed menses Ordered: 05/18/2024 [facility] Comment on above: Ordered: 05/18/2024 CBC W Auto Different ial panel - Blood CBC and differential Lab Routine Missed menses , unspecified gestational age Ordered: 05/18/2024 [facility] Comment on above: Ordered: 05/18/2024 Hemoglobin A1c/Hemoglobin.total in Blood Hemoglobin A1c Lab Routine Missed menses , unspecified gestational age Ordered: 05/18/2024 [facility] Comment on above: Ordered: 05/18/2024 Hepatitis B virus surface Ag [Presence] in Serum or Plasma by Immunoassay Hepatitis B surface antigen Lab Routine Missed menses , unspecified gestational age Ordered: 05/18/2024 [facility] Comment on above: Ordered: 05/18/2024 Hepatitis C virus Ab [Presence] in Serum or Plasma by Immunoassay Hepatitis C antibody Lab Routine Missed menses , unspecified gestational age Ordered: 05/18/2024 [facility] Comment on above: Ordered: 05/18/2024 HIV-1/HIV-2 antigen/antibody combination immunoassay HIV-1 and HIV-2 antibodies Lab Routine Missed menses , unspecified gestational age Ordered: 05/18/2024 [facility] Comment on above: Ordered: 05/18/2024 Patient Education Post- Di jelani Instructions ([facility]) [facility] Work Phone: Patient referral [facility] Work Phone: Reagin Ab [Presence] in Serum by RPR RPR Lab Routine Missed menses , unspecified gestational age Ordered: 05/18/2024 [facility] Comment on above: Ordered: 05/18/2024 Rubella antibody, IgG Rubella an tibody, IgG Lab Routine Missed menses , unspecified gestational age Ordered: 05/18/2024 [facility] Comment on above: Ordered: 05/18/2024 Immunizations Immunization Date Immunization Notes Care Provider Sivakumar raines 09-13-2021 tetanus toxoid, reduced diphtheria toxoid, and acellular pertussis vaccine, adsorbed PHYSICIAN NO FAMILY [facility] 10-09-2020 SARS-CoV-2 (COVID-19 ) [id number] vaccine Ricarda Garcia [facility] Comment on above: Result Comment: 2022: TPVAL 09-29-2020 tetanus toxoid, reduced diphtheria toxoid, and acellular pertussis vaccine, adsorbed; Translations: [Boostrix (Tdap)] Ariadne Murray [facility] Comment on above: Result Comment: (L) deltoid Result Comment: (L) deltoid 11-26-2011 influenza virus vaccine, unspecified formulation Ricarda Garcia [facility] 02-12-2004 influenza virus vaccine, unspecified formulation Ricarda Garcia [facility] 03-01-2003 influenza virus vaccine, unspecified formulation Ricarda Garcia [facility] 12-17-1996 varicella virus vaccine Ricarda Garcia [facility] 10-19-1995 DTaP, unspecified formulation Ricarda Garcia [facility] 10-19-1995 haemophilus influenzae type b vaccine, PRP-T conjugate Ricarda Garcia [facility] 06-21-1995 measles, mumps and rubella virus vaccine Ricarda Garcia [facility] 03-09-1995 hepatitis B vaccine, pediatric or pediatric/adolescent dosage Ricarda Garcia [facility] 1994 DTaP, unspecified formulation Ricarda Garcia [facility] 1994 haemophilus influenzae type b vaccine, PRP-T conjugate Ricarda Garcia [facility] 1994 poliovirus vaccine, unspecified formulation Ricarda Garcia [facility] 1994 DTaP, unspecified formulation Ricarda Garcia [facility] 1994 haemophilus influenzae type b vaccine, PRP-T conjugate Ricarda Garcia [facility] 1994 hepatitis B vaccine, pediatric or pediatric/adolescent dosage Ricarda Garcia [facility] 1994 poliovirus vaccine, unspecified formulation Ricarda Garcia [facility] 1994 DTaP, unspecified formulation Ricarda Garcia [facility] 1994 haemophilus influenzae type b vaccine, PRP-T conjugate Ricarda Garcia [facility] 1994 hepatitis B vaccine, pediatric or pediatric/adolescent dosage Ricarda Garcia [facility] 1994 poliovirus vaccine, unspecified formulation Ricarda Garcia [facility] NEGATED: Highlighted row has not occurred!07-06-2023 influenza virus vaccine, unspecified formulation REY ALAS [facility] [place] Payers Date Payer Category Payer Self-pay 2021 Unknown [id number] 2021 [facility] er [id number] 2021 Unknown [id number] 1994 Unknown [id number] [id number]. 2.593 1994 Unknown [id number] [id number]. 2. 1994 Unknown [id number] [id number]. 2.72 1994 Unknown [id number] [id number]. 2. 1994 Unknown [id number] [id number]. 2. 1994 Unknown [id number] [id number]. 2. 1994 Unknown [id number] [id number]. 2.72 1994 Unknown [id number] [id number]. 2. 1994 Unknown [id number] [id number]. 2. 1994 Unknown [id number] [id number]. 2. 1994 Unknown [id number] [id number]. 2. 1994 Unknown [id number] [id number]. 2.1259 1994 Unknown [id number] [id number]. 2.1259 1959 Unknown [id number] Unknown [id number] [id number]. 2.531 Social History Date Type Detail Facility Start: 10-03-2020 End: 07-06-2023 Tobacco smoking status Never smoked tobacco (finding) [facility] Tobacco smoking status Never [facility] End: 08-15-2015 Sex Assigned At Female [facility] Start: 1994 Sex Assigned At Female [facility] Tobacco smoking stat NHIS Tobacco smoking consumption unknown [facility] Start: 03-15-2024 [facility] Start: 05-17-2024 Gender identity Identifies as female gender (finding) [facility] Start: 05-17-2024 Sexual orientation Bisexual (finding ) [facility] Goals Date Patient Goal Desired Activity /State Functional Status Date Assessment Result Facility 04-18-2024 Functional Status N/A [facility] 10-10-2023 Functional Status N/A [facility] 07-08-2023 Functional Status N/A [facility] 07-06-2023 Functional Status N/A [facility] 01-11-2023 Functional Status N/A [facility] 01-08-2023 Functional Status N/A [facility] 01-06-2023 Functional Status N/A [facility] 10-17-2022 Functional Status N/A [facility] 02-17-2022 Functional Status N/A [facility] 11-10-2021 Functional Status N/A [facility] 09-14-2021 Functional status Patient at Baseline [facility] Work Phone: Mental Status Date Assessment Result Facility 09-14-2021 Cognitive function Cognitive Sta tus Patient at Baseline [facility] Work Phone: Clinical Notes 05-13-2021 to 05-18-2024 Snehal Lamb MA - 05/18/2024 10:30 AM EDT Note Date & Type Note Facility 05-18-2024 History of Presen t illness Narrative Reason for Appointment: Patient ID: Sabrina Tovar is a 28 y.o. female who presents for Amenorrhea Patient presents today for a Nurse OB Intake appointment. Patient is 11w1d with a Estimated Date of Delivery: 12/06/24 OB History Para Term AB Living 1 SAB IAB Ectopic Multiple Live Births # Outcome Date GA Lbr Darinel/2nd Weight Sex Type Anes PTL Lv 1 Current Current Medications: currently has no medications in their medication list. Medical History: Active Ambulatory Problems Diagnosis Date Noted No Active Ambulatory Problems Resolved Ambulatory Problems Diagnosis Date Noted No Resolved Ambulatory Problems No Additional Past Medical History No family history on file. Social History Tobacco Use Smoking status: Not on file Smokeless tobacco: Not on file Substance Use Topics Alcohol use: Not on file Drug use: Not on file No past surgical history on file. Not on File Vitals: Estimated body mass index is 47 kg/m as calculated from the following: Height as of 10/28/21: 5' 4 . Weight as of 10/28/21: 273 lb 12.8 oz. BP: No LMP recorded. Patient is . Assessment/Plan Diagnoses and all orders for this visit: Missed menses - US OB transvaginal; Future - Type and screen; Future - ABO/Rh; Future - CBC and differential - Hemoglobin A1c - RPR - Rubella antibody, IgG - Hepatitis B surface antigen - Hepatitis C antibody - HIV-1 and HIV-2 antibodies - Urine culture - POCT , urine manually resulted - POCT urinalysis dipstick manually resulted , unspecified gestational age - Type and screen; Future - ABO/Rh; Future - CBC and differential - Hemoglobin A1c - RPR - Rubella antibody, IgG - Hepatitis B surface antigen - Hepatitis C antibody - HIV-1 and HIV-2 antibodies - Rapid drug screen, urine; Future Encounter for supervision of normal first in first trimester - Rapid drug screen, urine; Future Nurse Note: OB Intake: Patient presents today for first OB visit. Patients history has been reviewed in great detail including any potential risks. Patient signed consent forms and patient desires testing in both trimesters. Patient currently has no complaints and has been advised to drink 6-8 glasses of water a day, eat no raw or undercooked meat, and stay away from [facility]. Patient has also been advised to not change litter boxes and eat 6 small meals a day. Patient has been consulted regarding the do's and don'ts of . Patient was given labs and all questions and concerns were answered. Unable to obtain vitals. Follow Up: Patient is to return in 4 weeks for routine OB appointment. Follow Up: Patient is to have labs drawn at directed and return to office for initial OB appointment with provider. Patient may call office as needed with any concerns or questions. Nurse Visit Completed by: Snehal Lamb MA documented in this encounter [facility] 04-18-2024 Hospital Discharg e instructions Patient Education 04/18/2024 14:10:03 Community-Acquired Pneumonia, Adult, Nbni-vb-Rdkj Community-Acquired Pneumonia, Adult Pneumonia is an infection of the lungs. It causes irritation and swelling in the airways of the lungs. Mucus and fluid may also build up inside the airways. This may cause coughing and trouble breathing. One type of pneumonia can happen while you are in a hospital. A different type can happen when you are not in a hospital (community-acquired pneumonia). What are the causes? This condition is caused by germs (viruses, bacteria, or fungi). Some types of germs can spread from person to person. Pneumonia is not thought to spread from person to person. What increases the risk? You have a long-term (chronic) disease, such as: ?Disease of the lungs. This may be chronic obstructive pulmonary disease (COPD) or asthma. ?Heart failure. ?Cystic fibrosis. ?Diabetes. ?Kidney disease. ?Sickle cell disease. ?HIV. You have other health problems, such as: ?Your body's defense system (immune system) is weak. ?A condition that may cause you to breathe in fluids from your mouth and nose. You had your spleen taken out. You do not take good care of your teeth and mouth (poor dental hygiene). You use or have used tobacco products. You go where the germs that cause this illness are common. You are older than 65 years of age. What are the signs or symptoms? A cough. A fever. Sweating or chills. Chest pain, often when you breathe deeply or cough. Breathing problems, such as: ?Fast breathing. ?Trouble breathing. ?Shortness of breath. Feeling tired (fatigued). Muscle aches. How is this treated? Treatment for this condition depends on many things, such as: The cause of your illness. Your medicines. Your other health problems. Most adults can be treated at home. Sometimes, treatment must happen in a hospital. Treatment may include medicines to kill germs. Medicines may depend on which germ caused your illness. Very bad pneumonia is rare. If you get it, you may: Have a machine to help you breathe. Have fluid taken away from around your lungs. Follow these instructions at home: Medicines Take gfuw-rap-svmjxrt and prescription medicines only as told by your doctor. Take cough medicine only if you are losing sleep. Cough medicine can keep your body from taking mucus away from your lungs. If you were prescribed antibiotics, take them as told by your doctor. Do not stop taking them even if you start to feel better. Lifestyle Do not smoke or use any products that contain nicotine or tobacco. If you need help quitting, ask your doctor. Do not drink alcohol. Eat a healthy diet. This includes a lot of vegetables, fruits, whole grains, low-fat dairy products, and low-fat (lean) protein. General instructions Rest a lot. Sleep for at least 8 hours each night. Sleep with your head and neck raised. Put a few pillows under your head or sleep in a reclining chair. Return to your normal activities as told by your doctor. Ask your doctor what activities are safe for you. Drink enough fluid to keep your pee (urine) pale yellow. If your throat is sore, gargle with a mixture of salt and water 3 4 times a day or as needed. To make salt water, completely dissolve 1 tsp (3 6 g) of salt in 1 cup (237 mL) of warm water. Keep all follow-up visits. How is this prevented? Getting the pneumonia shot (vaccine). These shots have different types and schedules. Ask your doctor what works best for you. Think about getting this shot if: ?You are older than 65 years of age. ?You are 19 65 years of age and: ?You are being treated for cancer. ?You have long-term lung disease. ?You have other problems that affect your body's defense system. Ask your doctor if you have one of these. Getting your flu shot every year. Ask your doctor which type of shot is best for you. Going to the dentist as often as told. Washing your hands often with soap and water for at least 20 seconds. If you cannot use soap and water, use hand mounted police officer. Contact a doctor if: You have a fever. You lose sleep because your cough medicine does not help. Get help right away if: You are short of breath and this gets worse. You have more chest pain. Your sickness gets worse. This is very serious if: ?You are an older adult. ?Your body's defense system is weak. You cough up blood. These symptoms may be an emergency. Get help right away. Call 911. Do not wait to see if the symptoms will go away. Do not drive yourself to the hospital. Summary Pneumonia is an infection of the lungs. Community-acquired pneumonia affects people who have not been in the hospital. Certain germs can cause this infection. This condition may be treated with medicines that kill germs. For very bad pneumonia, you may need a hospital stay and treatment to help with breathing. This information is not intended to replace advice given to you by your health care provider. Make sure you discuss any questions you have with your health care provider. Document Revised: 03/31/2022 Document Reviewed: 03/31/2022 [employer] Patient Education 2023 [employer]. Follow Up Care 04/18/2024 11:38:41 With:REY ALAS Address: [address] [place] [address] [place] [phone] Business (1) When:04/21/2024 13:47:32 Comments:Call for diagnosis based follow up [facility] 04-18-2024 Note ED Patient Education Note Infectious Disease Community-Acquired Pneumonia, Adult Pneumonia is an infection of the lungs. It causes irritation and swelling in the airways of the lungs. Mucus and fluid may also build up inside the airways. This may cause coughing and trouble breathing. One type of pneumonia can happen while you are in a hospital. A different type can happen when you are not in a hospital (community-acquired pneumonia). What are the causes? This condition is caused by germs (viruses, bacteria, or fungi). Some types of germs can spread from person to person. Pneumonia is not thought to spread from person to person. What increases the risk? You have a long-term (chronic) disease, such as: ? Disease of the lungs. This may be chronic obstructive pulmonary disease (COPD) or asthma. ? Heart failure. ? Cystic fibrosis. ? Diabetes. ? Kidney disease. ? Sickle cell disease. ? HIV. ??? You have other health problems, such as: ? Your body's defense system (immune system) is weak. ? A condition that may cause you to breathe in fluids from your mouth and nose. ??? You had your spleen taken out. ??? You do not take good care of your teeth and mouth (poor dental hygiene). ??? You use or have used tobacco products. ??? You go where the germs that cause this illness are common. ??? You are older than 65 years of age. What are the signs or symptoms? A cough. ??? A fever. ??? Sweating or chills. ??? Chest pain, often when you breathe deeply or cough. ??? Breathing problems, such as: ? Fast breathing. ? Trouble breathing. ? Shortness of breath. ??? Feeling tired (fatigued). ??? Muscle aches. How is this treated? Treatment for this condition depends on many things, such as: ??? The cause of your illness. ??? Your medicines. ??? Your other health problems. Most adults can be treated at home. Sometimes, treatment must happen in a hospital. ??? Treatment may include medicines to kill germs. ??? Medicines may depend on which germ caused your illness. Very bad pneumonia is rare. If you get it, you may: ??? Have a machine to help you breathe. ??? Have fluid taken away from around your lungs. Follow these instructions at home: Medicines ??? Take drfs-alh-jmzlbhl and prescription medicines only as told by your doctor. ??? Take cough medicine only if you are losing sleep. Cough medicine can keep your body from taking mucus away from your lungs. ??? If you were prescribed antibiotics, take them as told by your doctor. Do not stop taking them even if you start to feel better. Lifestyle ??? Do not smoke or use any products that contain nicotine or tobacco. If you need help quitting, ask your doctor. ??? Do not drink alcohol. ??? Eat a healthy diet. This includes a lot of vegetables, fruits, whole grains, low-fat dairy products, and low-fat (lean) protein. General instructions ??? Rest a lot. Sleep for at least 8 hours each night. ??? Sleep with your head and neck raised. Put a few pillows under your head or sleep in a reclining chair. ??? Return to your normal activities as told by your doctor. Ask your doctor what activities are safe for you. ??? Drink enough fluid to keep your pee (urine) pale yellow. ??? If your throat is sore, gargle with a mixture of salt and water 3?4 times a day or as needed. To make salt water, completely dissolve ??1 tsp (3?6 g) of salt in 1 cup (237 mL) of warm water. ??? Keep all follow-up visits. How is this prevented? Getting the pneumonia shot (vaccine). These shots have different types and schedules. Ask your doctor what works best for you. Think about getting this shot if: ? You are older than 65 years of age. ? You are 19?65 years of age and: ? You are being treated for cancer. ? You have long-term lung disease. ? You have other problems that affect your body's defense system. Ask your doctor if you have one of these. ??? Getting your flu shot every year. Ask your doctor which type of shot is best for you. ??? Going to the dentist as often as told. ??? Washing your hands often with soap and water for at least 20 seconds. If you cannot use soap and water, use hand mounted police officer. Contact a doctor if: ??? You have a fever. ??? You lose sleep because your cough medicine does not help. Get help right away if: ??? You are short of breath and this gets worse. ??? You have more chest pain. ??? Your sickness gets worse. This is very serious if: ? You are an older adult. ? Your body's defense system is weak. ??? You cough up blood. These symptoms may be an emergency. Get help right away. Call 911. ??? Do not wait to see if the symptoms will go away. ??? Do not drive yourself to the hospital. Summary ??? Pneumonia is an infection of the lungs. ??? Community-acquired pneumonia (more content not included)... [facility] 04-18-2024 Evaluation + Plan note Extrac walter from: Title:ED Note Author:Derick MS III, James Merida Date:04/18/24 Pneumonia (J18.9: Pneumonia, unspecified organism) Orders: albuterol, 1 puff(s), Inhalation, q6hr for wheezing, 18 gram, Refill(s) 0, [facility]/pharmacy #[id number], 165, cm, 04/18/24 11:46:00 EST, Height/Length Dosing, 124.5, kg, 04/18/24 11:46:00 EST, Weight Dosing amoxicillin, 1,000 mg = 2 cap(s), Oral, q12hr, X 7 day(s), # 28 cap(s), Refills(s) 0, Pharmacy: [facility]/pharmacy #[id number], 165, cm, 04/18/24 11:46:00 EST, Height/Length Dosing, 124.5, kg, 04/18/24 11:46:00 EST, Weight Dosing Influenza A&B Ag Rapid COVID Antigen ([facility]) [facility] 05-24-2024 Hospital Discharge instructions Patient Education 07/08/2023 14:32:37 Vertigo Vertigo Vertigo is the feeling that you or your surroundings are moving when they are not. This feeling cancome and go at any time. Vertigo often goes away on its own. Vertigo can be dangerous if it occurs while you are doing something that could endanger yourself or others, such as driving or operating machinery. Your health care provider will do tests to try to determine the cause of your vertigo. Tests will also help your health care provider decide how best to treat your condition. Follow these instructions at home: Eating and drinking Dehydration can make vertigo worse. Drink enough fluid to keep your urine pale yellow. Do not drink alcohol. Activity Return to your normal activities as told by your health care provider. Ask your health care provider what activities are safe for you. In the morning, first sit up on the side of the bed. When you feel okay, stand slowly while you hold onto something until you know that your balance is fine. Move slowly. Avoid sudden body or head movements or certain positions, as told by your health care provider. If you have trouble walking or keeping your balance, try using a cane for stability. If you feel dizzy or unstable, sit down right away. Avoid doing any tasks that would cause danger to you or others if vertigo occurs. Avoid bending down if you feel dizzy. Place items in your home so that they are easy for you to reach without bending or leaning over. Do not drive or use machinery if you feel dizzy. General instructions Take paxw-bsl-rnzgdwy and prescription medicines only as told by your health care provider. Keep all follow-up visits. This is important. Contact a health care provider if: Your medicines do not relieve your vertigo or they make it worse. Your condition gets worse or you develop new symptoms. You have a fever. You develop nausea or vomiting, or if nausea gets worse. Your family or friends notice any behavioral changes. You have numbness or a prickling and tingling sensation in part of your body. Get help right away if you: Are always dizzy or you faint. Develop severe headaches. Develop a stiff neck. Develop sensitivity to light. Have difficulty moving or speaking. Have weakness in your hands, arms, or legs. Have changes in your hearing or vision. These symptoms may represent a serious problem that is an emergency. Do not wait to see if the symptoms will go away. Get medical help right away. Call your local emergency services (911 in the [place] Do not drive yourself to the hospital. Summary Vertigo is the feeling that you or your surroundings are moving when they are not. Your health care provider will do tests to try to determine the cause of your vertigo. Follow instructions for home care. You may be told to avoid certain tasks, positions, or movements. Contact a health care provider if your medicines do not relieve your symptoms, or if you have a fever, nausea, vomiting, or changes in behavior. Get help right away if you have severe headaches or difficulty speaking, or you develop hearing or vision problems. This information is not intended to replace advice given to you by your health care provider. Make sure you discuss any questions you have with your health care provider. Document Revised: 12/31/2020 Document Reviewed: 12/31/2020 [employer] Patient Education 2022 [employer]. 07/08/2023 14:32:37 Sinus Pain Sinus Pain Sinus pain may occur when your sinuses become clogged or swollen. Sinuses are air-filled spaces in your skull that are behind the bones of your face and forehead. Sinus pain can range from mild to severe. What are the causes? Sinus pain can result from various conditions that affect the sinuses. Common causes include: Colds. Sinus infections. Allergies. What are the signs or symptoms? The main symptom of this condition is pain or pressure in your face, forehead, ears, or upper teeth. People who have sinus pain often have other symptoms, such as: Congested or runny nose. Fever. Inability to smell. Headache. Weather changes can make symptoms worse. How is this diagnosed? Your health care provider will diagnose this condition based on your symptoms and a physical exam. If you have pain that keeps coming back or does not go away, your health care provider may recommendmore testing. This may include: Imaging tests, such as a CT scan or MRI, to check for problems with your sinuses. Examination of your sinuses using a thin tool with a camera that is inserted through your nose (endoscopy). How is this treated? Treatment for this condition depends on the cause. Sinus pain that is caused by a sinus infection may be treated with antibiotic medicine. Sinus pain that is caused by congestion may be helped by rinsing out (flushing) the nose and sinuses with saline solution. Sinus pain that is caused by allergies may be helped by allergy medicines (antihistamines) and medicated nasal sprays. Sinus surgery may be needed in some cases if other treatments do not help. Follow these instructions at home: General instructions If directed: ?Apply a warm, moist washcloth to your face to help relieve pain. ?Use a nasal saline wash. Follow the directions on the bottle or box. Hydrate and humidify Drink enough water to keep your urine clear or pale yellow. Staying hydrated will help to thin yourmucus. Use a humidifier if your home is dry. Inhale steam for 10 15 minutes, 3 4 times a day or as told by your health care provider. You can dothis in the bathroom while a hot shower is running. Limit your exposure to cool or dry air. Medicines Take gptx-ngk-guwrrio and prescription medicines only as told by your health care provider. If you were prescribed an antibiotic medicine, take it as told by your health care provider. Do notstop taking the antibiotic even if you start to feel better. If you have congestion, use a nasal spray to help lessen pressure. Contact a health care provider if: You have sinus pain more than one time a week. You have sensitivity to light or sound. You develop a fever. You feel nauseous or you vomit. Your sinus pain or headache does not get better with treatment. Get help right away if: You have vision problems. You have sudden, severe pain in your face or head. You have a seizure. You are confused. You have a stiff neck. Summary Sinus pain occurs when your sinuses become clogged or swollen. Sinus pain can result from various conditions that affect the sinuses, such as a cold, a sinus infection, or an allergy. Treatment for this condition depends on the cause. It may include medicine, such as antibiotics or antihistamines. This information is not intended to replace advice given to you by your health care provider. Make sure you discuss any questions you have with your health care provider. Document Revised: 01/03/2022 Document Reviewed: 01/03/2022 [employer] Patient Education 2022 [employer]. Follow Up Care 07/08/2023 12:48:51 With:REY ALAS Address: [address] [place] [address]- Business (1) When:07/11/2023 14:12:36 [facility]05-24-2024 Evaluation + Plan noteExtracted from: Title:ED Note Author:Jarrell King PA-C te:07/08/23 Sinus headache (R51.9: Heada rowan, unspecified) Vertigo (R42: Dizziness and giddiness) Orders: ketorolac, 60 mg = 2 mL, Injection, IntraMuscular, Once, Stop date 07/08/23 13:55:00 EDT, STAT, Start date 07/08/23 13:55:00 EDT, 07/08/23 13:55:00 EDT loratadine-pseudoephedrine, 1 tab(s), Oral, q12hr for 10 day(s), 20 tab(s), Refill(s) 0, [facility]/pharmacy #[id number], 165.1, cm, 07/08/23 12:52:00 EDT, Height/Length Dosing, 127, kg, 07/08/23 12:52:00 EDT, Weight Dosing meclizine, 25 mg = 1 tab(s), Oral, TID, PRN for dizziness, # 15 tab(s), Refills(s) 0, [id number] 165.1, cm, 07/08/23 12:52:00 EDT, Height/Length Dosing, 127, kg, 07/08/23 12:52:00 EDT, Weight Dosing meclizine, 25 mg = 2 tab(s), Tab, Oral, Once, Stop date 07/08/23 13:02:00 EDT, STAT, Start date 07/08/23 13:02:00 EDT, 07/08/23 13:02:00 EDT XR Chest Single View Future Appointments Appointment Date:07/25/2023 08:40:00 AM Scheduled Provider:JOAQUÍN RODRIGUEZ Location:[facility] Appointment Type:[facility]05-22-2024 Hospital Discharge instructions Patient Education 07/06/2023 10:09:45 Chronic Migraine Headache Chronic Migraine Headache A migraine is a type of headache that is usually stronger and more sudden than other headaches. Migraines are characterized by an intense pulsing, throbbing pain that is usually only present on one side of the head. Migraine pain usually gets worse with activity. Migraines can cause nausea, vomiting, sensitivity to light and sound, and vision changes. Migrainesthat keep coming back are called recurrent migraines. A migraine is called a chronic migraine if ithappens at least 15 days in a month for more than 3 months. Talk with your health care provider about what things may bring on (trigger) your migraines. What are the causes? The exact cause of this condition is not known. However, a migraine may be caused when nerves in the brain become irritated and release chemicals that cause inflammation of blood vessels. The inflammation of the blood vessels causes pain. Migraines may be triggered or caused by: Smoking. Certain foods and drinks, such as: ?Aged cheese. ?Chocolate. ?Alcohol. ?Caffeine. ?Foods or drinks that contain nitrates, glutamate, aspartame, MSG, or tyramine. Medicines, such as control pills or some blood pressure medicines. Other things that may trigger a migraine include: Menstruation. Emotional stress. Lack of sleep or too much sleep. Tiredness (fatigue). Bright lights or loud noises. Odors. Weather changes and high altitude. What increases the risk? The following factors may make you more likely to experience chronic migraine: Having migraines or a family history of migraines. Having a mental health condition, such as depression or anxiety. Having to take a lot of pain medicine. Having sleep problems. Having heart disease, diabetes, or obesity. What are the signs or symptoms? Symptoms of a migraine vary for each person and may include: Pulsating or throbbing pain. Pain that is usually only present on one side of the head. In some cases, the pain may be on both sides of the head or around the head or neck. Severe pain that prevents you from doing daily activities. Pain that gets worse with physical activity. Nausea, vomiting, or both. Pain with exposure to bright lights, loud noises, or activity. General sensitivity to bright lights, loud noises, or smells. Dizziness. A sign that a migraine is becoming chronic is an increasing number of migraine episodes. It is considered chronic if the migraine happens at least 15 days in a month for more than 3 months. How is this diagnosed? This condition is often diagnosed based on: Your symptoms and medical history. A physical exam. You may also have tests, including: A CT scan or an MRI of your brain. These imaging tests cannot diagnose migraines, but they can helpto rule out other causes of headaches. Taking fluid from the spine (lumbar puncture) and analyzing it (cerebrospinal fluid analysis, or CSF analysis). Blood tests. How is this treated? This condition is treated with: Medicines. These help to: ?Lessen pain and nausea. ?Prevent migraines. Lifestyle changes, such as changes to your diet or sleeping patterns. Behavior therapy. This may include: ?Relaxation training. ?Biofeedback. This is a treatment that teaches you to relax and use your brain to lower your heart rate and control your breathing. ?Cognitive behavioral therapy (CBT). This is a form of talk therapy. This therapy helps you set goals and follow up on the changes that you make. Acupuncture. Using a device that provides electrical stimulation to your nerves, which can relieve pain (neuromodulation therapy). Surgery, if the other treatments are not working. Follow these instructions at home: Medicines Take unla-owj-njfvote and prescription medicines only as told by your health care provider. Ask your health care provider if the medicine prescribed to you requires you to avoid driving or using machinery. Lifestyle Do not use any products that contain nicotine or tobacco, such as cigarettes, e- cigarettes, and chewing tobacco. If you need help quitting, ask your health care provider. Do not drink alcohol. Get 7 9 hours of sleep each night, or the amount of sleep recommended by your health care provider. Find ways to manage stress, such as meditation, deep breathing, or yoga. Maintain a healthy weight. If you need help losing weight, ask your health care provider. Exercise regularly. Aim for 150 minutes of moderate-intensity exercise, such as walking, biking, oryoga, or 75 minutes of vigorous exercise each week. Vigorous exercise includes running, circuit training, and swimming. General instructions Keep a journal to find out what triggers your migraines so you can avoid these triggers. For example, write down: ?What you eat and drink. ?How much sleep you get. ?Any change to your diet or medicines. Lie down in a dark, quiet room when you have a migraine. Try placing a cool towel over your head when you have a migraine. Keep lights dim, if bright lights bother you or make your migraines worse. Keep all follow-up visits as told by your health care provider. This is important. Where to find more information Coalition for Headache and Migraine Patients (CHAMP): headachemigraine.org [place] [employer]: americanmigrainefoundation.org National Headache Foundation: headaches.org Contact a health care provider if: Your pain does not improve, even with medicine. Your migraines continue to return, even with medicine. Get help right away if: Your migraine becomes severe and medicine does not help. You have a stiff neck and fever. You have a loss of vision. You have muscle weakness or loss of muscle control. You start losing your balance, or you have trouble walking. You feel like you may faint, or you faint. You start having sudden and unexpected, severe headaches. You have a seizure. Summary Migraine headaches are usually stronger and more sudden than other headaches. Migraines are characterized by an intense pulsing, throbbing pain that is usually only present on one side of the head. Migraines that keep coming back are called recurrent migraines. A migraine is called a chronic migraine if it happens 15 days in a month for more than 3 months. Certain things may trigger migraines, such as lack of sleep or too much sleep, smoking, certain foods, alcohol, stress, and certain medicines. Your treatment plan may include medicines, lifestyle changes, and behavior therapy. This information is not intended to replace advice given to you by your health care provider. Make sure you discuss any questions you have with your health care provider. Document Revised: 03/19/2020 Document Reviewed: 03/19/2020 [employer] Patient Education 2022 [employer]. Follow Up Care 06/28/2023 15:15:45 With:JOAQUÍN RODRIGUEZ FAM Address: When:4 weeks [facility] 11-28-2023 Hospital Discharge instructions Patient Education 01/11/2023 19:37:18 Cervical Sprain, Itbb-ok-Jwur Cervical Sprain A cervical sprain is also called a neck sprain. It is a stretch or tear in one or more ligaments inthe neck. Ligaments are tissues that connect bones to each other. Neck sprains can be mild, bad, or very bad. A very bad sprain in the neck can cause the bones in the neck to be unstable. This can damage the spinal cord. It can also cause serious problems in the brain, spinal cord, and nerves (nervous system). Most neck sprains heal in 4 6 weeks. It can take more or less time depending on: What caused the injury. The amount of injury. What are the causes? Neck sprains may be caused by trauma, such as: An injury from an accident in a vehicle such as a car or boat. A fall. The head and neck being moved front to back or side to side all of a sudden (whiplash injury). Mild neck sprains may be caused by wear and tear over time. What increases the risk? The following factors may make you more likely to develop this condition: Taking part in activities that put you at high risk of hurting your neck. These include: ?Contact sports. ?Car racing. ?Gymnastics. ?Diving. Taking risks when driving or riding in a vehicle such as a car or boat. Arthritis caused by wear and tear of the joints in the spine. The neck not being very strong or flexible. Having had a neck injury in the past. Poor posture. Spending a lot of time in certain positions that put stress on the neck. This may be from sitting at a computer for a long time. What are the signs or symptoms? Symptoms of this condition include: Your neck, shoulders, or upper back feeling: ?Painful or sore. ?Stiff. ?Tender. ?Swollen. ?Hot, or like it is burning. Sudden tightening of neck muscles (spasms). Not being able to move the neck very much. Headache. Feeling dizzy. Feeling like you may vomit, or vomiting. Having a hand or arm that: ?Feels weak. ?Loses feeling (feels numb). ?Tingles. You may get symptoms right away after injury, or you may get them over a few days. In some cases, symptoms may go away with treatment and come back over time. How is this treated? This condition is treated by: Resting your neck. Icing the part of your neck that is hurt. Doing exercises to restore movement and strength to your neck (physical therapy). If there is no swelling, you may use heat therapy 2 3 days after the injury took place. If your injury is very bad, treatment may also include: Keeping your neck in place for a length of time. This may be done using: ?A neck collar. This supports your chin and the back of your head. ?A cervical traction device. This is a sling that holds up your head. The sling removes weight and pressure from your neck. It may also help to relieve pain. Medicines that help with: ?Pain. ?Irritation and swelling (inflammation). Medicines that help to relax your muscles (muscle relaxants). Surgery. This is rare. Follow these instructions at home: Medicines Take hvqv-bdx-htxadtt and prescription medicines only as told by your doctor. Ask your doctor if the medicine prescribed to you: ?Requires you to avoid driving or using heavy machinery. ?Can cause trouble pooping (constipation). You may need to take these actions to prevent or treat trouble pooping: ?Drink enough fluid to keep your pee (urine) pale yellow. ?Take fsyi-xkt-livmvtz or prescription medicines. ?Eat foods that are high in fiber. These include beans, whole grains, and fresh fruits and vegetables. ?Limit foods that are high in fat and sugar. These include fried or sweet foods. If you have a neck collar: Wear it as told by your doctor. Do not take it off unless told. Ask your doctor before adjusting your collar. If you have long hair, keep it outside of the collar. Ask your doctor if you may take off the collar for cleaning and bathing. If you may take off the collar: ?Follow instructions about how to take it off safely. ?Clean it by hand with mild soap and water. Let it air-dry fully. ?If your collar has pads that you can take out: ?Take the pads out every 1 2 days. ?Wash them by hand with soap and water. ?Let the pads air-dry fully before you put them back in the collar. ?Tell your doctor if your skin under the collar has irritation or sores. Managing pain, stiffness, and swelling Use a cervical traction device, if told by your doctor. If told, put ice on the affected area. To do this: ?Put ice in a plastic bag. ?Place a towel between your skin and the bag. ?Leave the ice on for 20 minutes, 2 3 times a day. If told, put heat on the affected area. Do this before exercise or as often as told by your doctor.Use the heat source that your doctor recommends, such as a moist heat pack or a heating pad. ?Place a towel between your skin and the heat source. ?Leave the heat on for 20 30 minutes. ?Take the heat off if your skin turns bright red. This is very important if you cannot feel pain, heat, or cold. You may have a greater risk of getting burned. Activity Do not drive while wearing a neck collar. If you do not have a neck collar, ask if it is safe to drive while your neck heals. Do not lift anything that is heavier than 10 lb (4.5 kg), or the limit that you are told, until your doctor tells you that it is safe. Rest as told by your doctor. Do exercises as told by your doctor or physical therapist. Return to your normal activities as told by your doctor. Avoid positions and activities that make you feel worse. Ask your doctor what activities are safe for you. General instructions Do not use any products that contain nicotine or tobacco, such as cigarettes, e- cigarettes, and chewing tobacco. These can delay healing. If you need help quitting, ask your doctor. Keep all follow-up visits as told by your doctor or physical therapist. This is important. How is this prevented? To prevent a neck sprain from happening again: Practice good posture. Adjust your workstation to help you do this. Exercise regularly as told by your doctor or physical therapist. Avoid activities that are risky or may cause a neck sprain. Contact a doctor if: Your symptoms get worse. Your symptoms do not get better after 2 weeks of treatment. Your pain gets worse. Medicine does not help your pain. You have new symptoms that you cannot explain. Your neck collar gives you sores on your skin or bothers your skin. Get help right away if: You have very bad pain. You get any of the following in any part of your body: ?Loss of feeling. ?Tingling. ?Weakness. You cannot move a part of your body. You have neck pain and either of these: ?Very bad dizziness. ?A very bad headache. Summary A cervical sprain is also called a neck sprain. It is a stretch or tear in one or more ligaments inthe neck. Ligaments are tissues that connect bones. Neck sprains may be caused by trauma, such as an injury or a fall. You may get symptoms right away after injury, or you may get them over a few days. Neck sprains may be treated with rest, heat, ice, medicines, exercise, and surgery. This information is not intended to replace advice given to you by your health care provider. Make sure you discuss any questions you have with your health care provider. Document Revised: 05/10/2022 Document Reviewed: 10/10/2019 [employer] Patient Education 2022 [employer]. Follow Up Care 01/11/2023 15:55:53 With:CROW LYLES DO, FAM Address: When:1 to 2 days Comments:Call today to schedule your follow up [facility]11-25-2023 Hospital Discharge instructions Patient Education 01/08/2023 18:29:49 Vertigo Vertigo Vertigo is the feeling that you or your surroundings are moving when they are not. This feeling cancome and go at any time. Vertigo often goes away on its own. Vertigo can be dangerous if it occurs while you are doing something that could endanger yourself or others, such as driving or operating machinery. Your health care provider will do tests to try to determine the cause of your vertigo. Tests will also help your health care provider decide how best to treat your condition. Follow these instructions at home: Eating and drinking Dehydration can make vertigo worse. Drink enough fluid to keep your urine pale yellow. Do not drink alcohol. Activity Return to your normal activities as told by your health care provider. Ask your health care provider what activities are safe for you. In the morning, first sit up on the side of the bed. When you feel okay, stand slowly while you hold onto something until you know that your balance is fine. Move slowly. Avoid sudden body or head movements or certain positions, as told by your health care provider. If you have trouble walking or keeping your balance, try using a cane for stability. If you feel dizzy or unstable, sit down right away. Avoid doing any tasks that would cause danger to you or others if vertigo occurs. Avoid bending down if you feel dizzy. Place items in your home so that they are easy for you to reach without bending or leaning over. Do not drive or use machinery if you feel dizzy. General instructions Take ipmq-ojj-loyybfd and prescription medicines only as told by your health care provider. Keep all follow-up visits. This is important. Contact a health care provider if: Your medicines do not relieve your vertigo or they make it worse. Your condition gets worse or you develop new symptoms. You have a fever. You develop nausea or vomiting, or if nausea gets worse. Your family or friends notice any behavioral changes. You have numbness or a prickling and tingling sensation in part of your body. Get help right away if you: Are always dizzy or you faint. Develop severe headaches. Develop a stiff neck. Develop sensitivity to light. Have difficulty moving or speaking. Have weakness in your hands, arms, or legs. Have changes in your hearing or vision. These symptoms may represent a serious problem that is an emergency. Do not wait to see if the symptoms will go away. Get medical help right away. Call your local emergency services (911 in the [place] Do not drive yourself to the hospital. Summary Vertigo is the feeling that you or your surroundings are moving when they are not. Your health care provider will do tests to try to determine the cause of your vertigo. Follow instructions for home care. You may be told to avoid certain tasks, positions, or movements. Contact a health care provider if your medicines do not relieve your symptoms, or if you have a fever, nausea, vomiting, or changes in behavior. Get help right away if you have severe headaches or difficulty speaking, or you develop hearing or vision problems. This information is not intended to replace advice given to you by your health care provider. Make sure you discuss any questions you have with your health care provider. Document Revised: 12/31/2020 Document Reviewed: 12/31/2020 [employer] Patient Education 2022 [employer]. 01/08/2023 18:29:49 General Headache Without Cause General Headache Without Cause A headache is pain or discomfort felt around the head or neck area. There are many causes and typesof headaches. A few common types include: Tension headaches. Migraine headaches. Cluster headaches. Chronic daily headaches. Sometimes, the specific cause of a headache may not be found. Follow these instructions at home: Watch your condition for any changes. Let your health care provider know about them. Take these steps to help with your condition: Managing pain Take ytdx-gyg-pkxipmu and prescription medicines only as told by your health care provider. Treatment may include medicines for pain that are taken by mouth or applied to the skin. Lie down in a dark, quiet room when you have a headache. Keep lights dim if bright lights bother you or make your headaches worse. If directed, put ice on your head and neck area: ?Put ice in a plastic bag. ?Place a towel between your skin and the bag. ?Leave the ice on for 20 minutes, 2 3 times per day. ?Remove the ice if your skin turns bright red. This is very important. If you cannot feel pain, heat, or cold, you have a greater risk of damage to the area. If directed, apply heat to the affected area. Use the heat source that your health care provider recommends, such as a moist heat pack or a heating pad. ?Place a towel between your skin and the heat source. ?Leave the heat on for 20 30 minutes. ?Remove the heat if your skin turns bright red. This is especially important if you are unable to feel pain, heat, or cold. You have a greater risk of getting burned. Eating and drinking Eat meals on a regular schedule. If you drink alcohol: ?Limit how much you have to: ?0 1 drink a day for women who are not . ? 0 2 drinks a day for men. ?Know how much alcohol is in a drink. In the [place] one drink equals one 12 oz bottle of beer (355 mL), one 5 oz glass of wine (148 mL), or one 1 oz glass of hard liquor (44 mL). Stop drinking caffeine, or decrease the amount of caffeine you drink. Drink enough fluid to keep your urine pale yellow. General instructions Keep a headache journal to help find out what may trigger your headaches. For example, write down: ?What you eat and drink. ?How much sleep you get. ?Any change to your diet or medicines. Try massage or other relaxation techniques. Limit stress. Sit up straight, and do not tense your muscles. Do not use any products that contain nicotine or tobacco. These products include cigarettes, chewing tobacco, and vaping devices, such as e-cigarettes. If you need help quitting, ask your health careprovider. Exercise regularly as told by your health care provider. Sleep on a regular schedule. Get 7 9 hours of sleep each night, or the amount recommended by your health care provider. Keep all follow-up visits. This is important. Contact a health care provider if: Medicine does not help your symptoms. You have a headache that is different from your usual headache. You have nausea or you vomit. You have a fever. Get help right away if: Your headache: ?Becomes severe quickly. ?Gets worse after moderate to intense physical activity. You have any of these symptoms: ?Repeated vomiting. ?Pain or stiffness in your neck. ?Changes to your vision. ?Pain in an eye or ear. ?Problems with speech. ?Muscular weakness or loss of muscle control. ?Loss of balance or coordination. You feel faint or pass out. You have confusion. You have a seizure. These symptoms may represent a serious problem that is an emergency. Do not wait to see if the symptoms will go away. Get medical help right away. Call your local emergency services (911 in the [place] Do not drive yourself to the hospital. Summary A headache is pain or discomfort felt around the head or neck area. There are many causes and types of headaches. In some cases, the cause may not be found. Keep a headache journal to help find out what may trigger your headaches. Watch your condition for any changes. Let your health care provider know about them. Contact a health care provider if you have a headache that is different from the usual headache, orif your symptoms are not helped by medicine. Get help right away if your headache becomes severe, you vomit, you have a loss of vision, you loseyour balance, or you have a seizure. This information is not intended to replace advice given to you by your health care provider. Make sure you discuss any questions you have with your health care provider. Document Revised: 07/01/2021 Document Reviewed: 07/01/2021 [employer] Patient Education 2022 [employer]. Follow Up Care 01/08/2023 12:35:43 With:Terrell HAN Address: [address] [place] [address], [facility] [place] [id number] [facility] (1) When:01/11/2023 18:19:03 Comments:Return to the emergency room if your headache recurs, fever, vomiting, vision change or any new symptoms. [facility]11-25-2023 Evaluation + Plan noteExtracted from: Title:ED Note Author:Vonnie Mckoy e:01/08/23 1. Headache (R51.9: Headache , unspecified) Orders: diphenhydrAMINE, 25 mg = 0.5 mL, Injection, IV Push, Once, Stop date 01/08/23 15:53:00 EST, STAT, Start date 01/08/23 15:53:00 EST, 01/08/23 15:53:00 EST ketorolac, 30 mg = 1 mL, Injection, IV Push, Once, Stop date 01/08/23 15:53:00 EST, STAT, Start date 01/08/23 15:53:00 EST, 01/08/23 15:53:00 EST methylPREDNISolone, 125 mg = 2 mL, Injection, IV Push, Once, Stop date 01/08/23 17:30:00 EST, STAT, Start date 01/08/23 17:30:00 EST, 01/08/23 17:30:00 EST metoclopramide, 10 mg = 2 mL, Injection, IV Push, Once, Stop date 01/08/23 15:53:00 EST, STAT, Start date 01/08/23 15:53:00 EST, 01/08/23 15:53:00 EST Sodium Chloride 0.9% intravenous solution, 1,000 mL, Soln-IV, IV, Once, Stop date 01/08/23 15:53:00 EST, STAT, Start date 01/08/23 15:53:00 EST, Infuse over 61, minute(s) Beta hCG Quantitative CT Head or Brain w/o Contrast Extra SST Tube [facility]11-23-2023 Hospital Discharge instructions Follow Up Care 01/06/2023 14:44:33 With:[employer] Address: [address] [place] [phone] [id number] (1) When:01/09/2023 17:03:00 With:XXXX NONE Address: [place] When:Within 3 Day(s) [facility]11-23-2023 Evaluation + Plan noteExtracted from: Title:ED Note Author:Jesus Ayers DO Date: Migraine (G43.909: Migraine, unspecified, not intractable, without status migrainosus) Viral URI (J06.9: Acute upper respiratory infection, unspecified) Orders: acetaminophen, 975 mg = 3 tab(s), Tab, Oral, Once, Stop date 01/06/23 15:38:00 EST, STAT, Start date 01/06/23 15:38:00 EST, 01/06/23 15:38:00 EST diphenhydrAMINE, 25 mg = 0.5 mL, Injection, IV, Once, Stop date 01/06/23 14:54:00 EST, STAT, Start date 01/06/23 14:54:00 EST, 01/06/23 14:54:00 EST ibuprofen, 800 mg = 1 tab(s), Tab, Oral, Once, Stop date 01/06/23 17:04:00 EST, STAT, Start date 01/06/23 17:04:00 EST, 01/06/23 17:04:00 EST ketorolac, 30 mg = 1 mL, Injection, IV Push, q6hr, STAT, Start date 01/06/23 14:54:00 EST, 01/06/23 14:54:00 EST metoclopramide, 10 mg = 2 mL, Injection, IV Push, Once, Stop date 01/06/23 14:54:00 EST, STAT, Start date 01/06/23 14:54:00 EST, 01/06/23 14:54:00 EST prochlorperazine, = 1 tab(s), Oral, TID, X 7 day(s), # 21 tab(s), Refills(s) 0 promethazine, 25 mg = 1 tab(s), Tab, Oral, Once, Stop date 01/06/23 17:04:00 EST, STAT, Start date 01/06/23 17:04:00 EST, 01/06/23 17:04:00 EST Sodium Chloride 0.9% intravenous solution 1,000 mL, 1,000 mL, IV, 1,000 mL/hr, STAT, Start date 01/06/23 14:54:00 EST, 1 hour(s), Total volume (mL): 1,000, 124.5 kg, 2.39, m2 Extra Blue Tube Extra Green Li Tube Extra Lav Tube Extra SST Tube Influenza A&B Ag Rapid COVID Antigen ([facility] [place]) [facility]09-03-2023 Hospital Discharge instructions Patient Education 10/17/2022 17:28:51 Viral Gastroenteritis, Adult Viral Gastroenteritis, Adult Viral gastroenteritis is also known as the stomach flu. This condition may affect your stomach, small intestine, and large intestine. It can cause sudden watery diarrhea, fever, and vomiting. This condition is caused by many different viruses. These viruses can be passed from person to person very easily (are contagious). Diarrhea and vomiting can make you feel weak and cause you to become dehydrated. You may not be able to keep fluids down. Dehydration can make you tired and thirsty, cause you to have a dry mouth, and decrease how often you urinate. It is important to replace the fluids that you lose from diarrhea and vomiting. What are the causes? Gastroenteritis is caused by many viruses, including rotavirus and norovirus. Norovirus is the mostcommon cause in adults. You can get sick after being exposed to the viruses from other people. You can also get sick by: Eating food, drinking water, or touching a surface contaminated with one of these viruses. Sharing utensils or other personal items with an infected person. What increases the risk? You are more likely to develop this condition if you: Have a weak body defense system (immune system). Live with one or more children who are younger than 2 years. Live in a care home. Travel on cruise ships. What are the signs or symptoms? Symptoms of this condition start suddenly 1 3 days after exposure to a virus. Symptoms may last fora few days or for as long as a week. Common symptoms include watery diarrhea and vomiting. Other symptoms include: Fever. Headache. Fatigue. Pain in the abdomen. Chills. Weakness. Nausea. Muscle aches. Loss of appetite. How is this diagnosed? This condition is diagnosed with a medical history and physical exam. You may also have a stool test to check for viruses or other infections. How is this treated? This condition typically goes away on its own. The focus of treatment is to prevent dehydration andrestore lost fluids (rehydration). This condition may be treated with: An oral rehydration solution (ORS) to replace important salts and minerals (electrolytes) in your body. Take this if told by your health care provider. This is a drink that is sold at pharmacies and retail stores. Medicines to help with your symptoms. Probiotic supplements to reduce symptoms of diarrhea. Fluids given through an IV, if dehydration is severe. Older adults and people with other diseases or a weak immune system are at higher risk for dehydration. Follow these instructions at home: Eating and drinking Take an ORS as told by your health care provider. Drink clear fluids in small amounts as you are able. Clear fluids include: ?Water. ?Ice chips. ?Diluted fruit juice. ?Low-calorie sports drinks. Drink enough fluid to keep your urine pale yellow. Eat small amounts of healthy foods every 3 4 hours as you are able. This may include whole grains, fruits, vegetables, lean meats, and yogurt. Avoid fluids that contain a lot of sugar or caffeine, such as energy drinks, sports drinks, and soda. Avoid spicy or fatty foods. Avoid alcohol. General instructions Wash your hands often, especially after having diarrhea or vomiting. If soap and water are not available, use hand mounted police officer. Make sure that all people in your household wash their hands well and often. Take udrk-xaw-kzaqrtu and prescription medicines only as told by your health care provider. Rest at home while you recover. Watch your condition for any changes. Take a warm bath to relieve any burning or pain from frequent diarrhea episodes. Keep all follow-up visits. This is important. Contact a health care provider if you: Cannot keep fluids down. Have symptoms that get worse. Have new symptoms. Feel light-headed or dizzy. Have muscle cramps. Get help right away if you: Have chest pain. Have trouble breathing or you are breathing very quickly. Have a fast heartbeat. Feel extremely weak or you faint. Have a severe headache, a stiff neck, or both. Have a rash. Have severe pain, cramping, or bloating in your abdomen. Have skin that feels cold and clammy. Feel confused. Have pain when you urinate. Have signs of dehydration, such as: ?Dark urine, very little urine, or no urine. ?Cracked lips. ?Dry mouth. ?Sunken eyes. ?Sleepiness. ?Weakness. Have signs of bleeding, such as: ?Seeing blood in your vomit. ?Having vomit that looks like coffee grounds. ?Having bloody or black stools or stools that look like tar. These symptoms may be an emergency. Get help right away. Call 911. Do not wait to see if the symptoms will go away. Do not drive yourself to the hospital. Summary Viral gastroenteritis is also known as the stomach flu. It can cause sudden watery diarrhea, fever,and vomiting. This condition can be passed from person to person very easily (is contagious). Take an oral rehydration solution (ORS) if told by your health care provider. This is a drink that is sold at pharmacies and retail stores. Wash your hands often, especially after having diarrhea or vomiting. If soap and water are not available, use hand mounted police officer. This information is not intended to replace advice given to you by your health care provider. Make sure you discuss any questions you have with your health care provider. Document Revised: 11/30/2021 Document Reviewed: 11/30/2021 [employer] Patient Education 2022 [employer]. Follow Up Care 10/17/2022 13:03:17 With:ROOSEVELT FRANK Address: [address]una [address] [address]- Business (1) When:10/20/2022 17:25:20 Comments:Call the office of your primary care doctor to arrange for follow-up within the above-stated timeframe. Follow-up with your primary care doctor about this ED visit. You should review your labs, imaging, and diagnoses from this ED visit with your primary care physician. There are occasionally non-emergent findings that require additional follow-up after your ED visit. If you were prescribed medications you should discuss possible side-effects and drug interactions with your pharmacist. Call 911 or go to the nearest Emergency Department if you develop any new or worsening symptoms.Seek immediate medical attention if you develop:worsening abdominal pain, new or worsening nausea, new or worsening vomiting, new or worsening diarrhea, chest pain, shortness of breath, pain with urination, problems urinating, fever, chills, weakness, or any new or worsening symptoms. [facility]09-03-2023 Evaluation + Plan noteExtracted from: Title:ED Note Author:Jarrell King PA-C te:10/17/22 1. Abdominal pain (R10.9: Un specified abdominal pain) 2. Nausea vomiting and diarrhea (R11.2: Nausea with vomiting, unspecified) Diarrhea, unspecified (R19.7: Diarrhea, unspecified) Orders: ketorolac, 30 mg = 1 mL, Injection, IV Push, Once, Stop date 10/17/22 14:44:00 EDT, STAT, Start date 10/17/22 14:44:00 EDT, 10/17/22 14:44:00 EDT morphine, 4 mg = 2 mL, Injection, IV Push, Once, Stop date 10/17/22 15:16:00 EDT, STAT, Start date 10/17/22 15:16:00 EDT, 10/17/22 15:16:00 EDT ondansetron, 4 mg = 2 mL, Injection, IV Push, Once, Stop date 10/17/22 13:25:00 EDT, STAT, Start date 10/17/22 13:25:00 EDT, 10/17/22 13:25:00 EDT Sodium Chloride 0.9% intravenous solution, 1,000 mL, Soln-IV, IV, Once, Stop date 10/17/22 13:25:00 EDT, STAT, Start date 10/17/22 13:25:00 EDT, Infuse over 61, minute(s) Automated Diff Basic Metabolic Panel Beta hCG Qual CBC w/ Auto Diff CT Abdomen/Pelvis w/ Contrast eGFR Hepatic Function Panel Lipase Level UA With Cult Reflex Addendum by Jagdish Dunn DO on October 17, 2022 17:29:50 EDT Urinalysis without acute findings. Patient was discharged home. Jagdish Dunn DO, WILFREDO [facility]01-04-2023 Hospital Discharge instructions Patient Education 02/17/2022 21:17:10 Colitis Colitis Colitis is inflammation of the colon. Colitis may last a short time (be acute), or it may last a long time (become chronic). What are the causes? This condition may be caused by: Viruses. Bacteria. Reaction to medicine. Certain autoimmune diseases such as Crohn's disease or ulcerative colitis. Radiation treatment. Decreased blood flow to the bowel (ischemia). What are the signs or symptoms? Symptoms of this condition include: Watery diarrhea. Passing bloody or tarry stool. Pain. Fever. Vomiting. Tiredness (fatigue). Weight loss. Bloating. Abdominal pain. Having fewer bowel movements than usual. A strong and sudden urge to have a bowel movement. Feeling like the bowel is not empty after a bowel movement. How is this diagnosed? This condition is diagnosed with a stool test or a blood test. You may also have other tests, such as: X-rays. CT scan. Colonoscopy. Endoscopy. Biopsy. How is this treated? Treatment for this condition depends on the cause. The condition may be treated by: Resting the bowel. This involves not eating or drinking for a period of time. Fluids that are given through an IV. Medicine for pain and diarrhea. Antibiotic medicines. Cortisone medicines. Surgery. Follow these instructions at home: Eating and drinking Follow instructions from your health care provider about eating or drinking restrictions. Drink enough fluid to keep your urine pale yellow. Work with a dietitian to determine which foods cause your condition to flare up. Avoid foods that cause flare-ups. Eat a well-balanced diet. General instructions If you were prescribed an antibiotic medicine, take it as told by your health care provider. Do notstop taking the antibiotic even if you start to feel better. Take smgk-wgd-jcwxgyk and prescription medicines only as told by your health care provider. Keep all follow-up visits as told by your health care provider. This is important. Contact a health care provider if: Your symptoms do not go away. You develop new symptoms. Get help right away if you: Have a fever that does not go away with treatment. Develop chills. Have extreme weakness, fainting, or dehydration. Have repeated vomiting. Develop severe pain in your abdomen. Pass bloody or tarry stool. Summary Colitis is inflammation of the colon. Colitis may last a short time (be acute), or it may last a long time (become chronic). Treatment for this condition depends on the cause and may include resting the bowel, taking medicines, or having surgery. If you were prescribed an antibiotic medicine, take it as told by your health care provider. Do notstop taking the antibiotic even if you start to feel better. Get help right away if you develop severe pain in your abdomen. Keep all follow-up visits as told by your health care provider. This is important. This information is not intended to replace advice given to you by your health care provider. Make sure you discuss any questions you have with your health care provider. Document Released: 03/10/2005 Document Revised: 08/03/2018 Document Reviewed: 08/03/2018 [employer] Patient Education 2020 [employer]. 02/17/2022 21:17:10 Nausea and Vomiting, Adult Nausea and Vomiting, Adult Nausea is the feeling that you have an upset stomach or that you are about to vomit. Vomiting is when stomach contents are thrown up and out of the mouth as a result of nausea. Vomiting can make you feel weak and cause you to become dehydrated. Dehydration can make you feel tired and thirsty, cause you to have a dry mouth, and decrease how often you urinate. Older adults and people with other diseases or a weak disease-fighting system (immune system) are at higher risk for dehydration. It is important to treat your nausea and vomiting as told by your health care provider. Follow these instructions at home: Watch your symptoms for any changes. Tell your health care provider about them. Follow these instructions to care for yourself at home. Eating and drinking Take an oral rehydration solution (ORS). This is a drink that is sold at pharmacies and retail stores. Drink clear fluids slowly and in small amounts as you are able. Clear fluids include water, ice chips, low-calorie sports drinks, and fruit juice that has water added (diluted fruit juice). Eat bland, sngv-vd-vwoovx foods in small amounts as you are able. These foods include bananas, applesauce, rice, lean meats, toast, and crackers. Avoid fluids that contain a lot of sugar or caffeine, such as energy drinks, sports drinks, and soda. Avoid alcohol. Avoid spicy or fatty foods. General instructions Take vqsu-alr-mrsezuu and prescription medicines only as told by your health care provider. Drink enough fluid to keep your urine pale yellow. Wash your hands often using soap and water. If soap and water are not available, use hand mounted police officer. Make sure that all people in your household wash their hands well and often. Rest at home while you recover. Watch your condition for any changes. Breathe slowly and deeply when you feel nauseated. Keep all follow-up visits as told by your health care provider. This is important. Contact a health care provider if: Your symptoms get worse. You have new symptoms. You have a fever. You cannot drink fluids without vomiting. Your nausea does not go away after 2 days. You feel light-headed or dizzy. You have a headache. You have muscle cramps. You have a rash. You have pain while urinating. Get help right away if: You have pain in your chest, neck, arm, or jaw. You feel extremely weak or you faint. You have persistent vomiting. You have vomit that is bright red or looks like black coffee grounds. You have bloody or black stools or stools that look like tar. You have a severe headache, a stiff neck, or both. You have severe pain, cramping, or bloating in your abdomen. You have difficulty breathing, or you are breathing very quickly. Your heart is beating very quickly. Your skin feels cold and clammy. You feel confused. You have signs of dehydration, such as: ?Dark urine, very little urine, or no urine. ?Cracked lips. ?Dry mouth. ?Sunken eyes. ?Sleepiness. ?Weakness. These symptoms may represent a serious problem that is an emergency. Do not wait to see if the symptoms will go away. Get medical help right away. Call your local emergency services (911 in the [place] Do not drive yourself to the hospital. Summary Nausea is the feeling that you have an upset stomach or that you are about to vomit. As nausea getsworse, it can lead to vomiting. Vomiting can make you feel weak and cause you to become dehydrated. Follow instructions from your health care provider about eating and drinking to prevent dehydration. Take brjo-vmp-nkwwvit and prescription medicines only as told by your health care provider. Contact your health care provider if your symptoms get worse, or you have new symptoms. Keep all follow-up visits as told by your health care provider. This is important. This information is not intended to replace advice given to you by your health care provider. Make sure you discuss any questions you have with your health care provider. Document Released: 01/31/2006 Document Revised: 05/25/2019 Document Reviewed: 07/11/2018 [employer] Patient Education 2020 [employer]. 02/17/2022 21:17:10 Abdominal Pain, Adult Abdominal Pain, Adult Pain in the abdomen (abdominal pain) can be caused by many things. Often, abdominal pain is not serious and it gets better with no treatment or by being treated at home. However, sometimes abdominal pain is serious. Your health care provider will ask questions about your medical history and do a physical exam to try to determine the cause of your abdominal pain. Follow these instructions at home: Medicines Take mqxn-lba-qglefdn and prescription medicines only as told by your health care provider. Do not take a laxative unless told by your health care provider. General instructions Watch your condition for any changes. Drink enough fluid to keep your urine pale yellow. Keep all follow-up visits as told by your health care provider. This is important. Contact a health care provider if: Your abdominal pain changes or gets worse. You are not hungry or you lose weight without trying. You are constipated or have diarrhea for more than 2 3 days. You have pain when you urinate or have a bowel movement. Your abdominal pain wakes you up at night. Your pain gets worse with meals, after eating, or with certain foods. You are vomiting and cannot keep anything down. You have a fever. You have blood in your urine. Get help right away if: Your pain does not go away as soon as your health care provider told you to expect. You cannot stop vomiting. Your pain is only in areas of the abdomen, such as the right side or the left lower portion of the abdomen. Pain on the right side could be caused by appendicitis. You have bloody or black stools, or stools that look like tar. You have severe pain, cramping, or bloating in your abdomen. You have signs of dehydration, such as: ?Dark urine, very little urine, or no urine. ?Cracked lips. ?Dry mouth. ?Sunken eyes. ?Sleepiness. ?Weakness. You have trouble breathing or chest pain. Summary Often, abdominal pain is not serious and it gets better with no treatment or by being treated at home. However, sometimes abdominal pain is serious. Watch your condition for any changes. Take jfoj-fpn-chdwagj and prescription medicines only as told by your health care provider. Contact a health care provider if your abdominal pain changes or gets worse. Get help right away if you have severe pain, cramping, or bloating in your abdomen. This information is not intended to replace advice given to you by your health care provider. Make sure you discuss any questions you have with your health care provider. Document Released: 11/10/2005 Document Revised: 06/11/2019 Document Reviewed: 06/11/2019 [employer] Patient Education 2019 [employer]. Follow Up Care 02/17/2022 15:51:20 With:Hosea John Address: [address] [place] [address]- When:02/20/2022 21:03:18 Comments:Return to the emergency room if your pain gets worse, vomiting, fever or any new symptoms [facility]01-04-2023 Evaluation + Plan noteExtracted from: Title:ED Note Author:Jagdish Dunn DO Date: Abdominal pain, acute (R10.9 : Unspecified abdominal pain) Mild nausea and vomiting (R11.2: Nausea with vomiting, unspecified) Orders: ondansetron, 4 mg = 2 mL, Injection, IV Push, Once, Stop date 02/17/22 18:26:00 EST, STAT, Start date 02/17/22 18:26:00 EST, 02/17/22 18:26:00 EST Sodium Chloride 0.9% intravenous solution 1,000 mL, 1,000 mL, IV, 999 mL/hr, STAT, Start date 02/17/22 18:26:00 EST, 1 hour(s), Total volume (mL): 1,000, 122 kg, 2.37, m2 Automated Diff Basic Metabolic Panel Beta hCG Qual CBC w/ Auto Diff CT Abdomen/Pelvis w/ Contrast eGFR Extra Blue Tube Extra SST Tube Hepatic Function Panel Lipase Level Morphology UA With Cult Reflex Addendum by Sandro Ramirez, As trijudi H on February 17, 2022 21:20:50 EST The care of the patient was transitioned to vt upon shift change to follow-up with CT results reevaluation and final disposition. The patient has presented with abdominal pain and vomiting. Her abdominal pain is periumbilical. Abdomen is soft with no tenderness. The blood work reviewed. The patient has leukocytosis. CT of the abdomen and pelvis shows enteritis. The appendix is normal. The patient received another dose of Phenergan and her nausea improved. She tolerated p.o. in the emergency room. Possible her symptoms are due to bacterial enteritis considering elevated white count. Will discharge patient home with Cipro Flagyl and Zofran. The patient will follow up with her primary care. She is instructed to return to the emergency room if her pain gets worse, fever, vomiting recurs or any new symptoms. The findings and the care of plan were discussed with patient and her mother and they are both in agreement. Additional diagnosis: Enteritis [facility]09-27-2022 Hospital Discharge instructions Patient Education 11/10/2021 13:29:03 Urinary Tract Infection, Adult Urinary Tract Infection, Adult A urinary tract infection (UTI) is an infection of any part of the urinary tract. The urinary tractincludes the kidneys, ureters, bladder, and urethra. These organs make, store, and get rid of urinein the body. Your health care provider may use other names to describe the infection. An upper UTI affects the ureters and kidneys (pyelonephritis). A lower UTI affects the bladder (cystitis) and urethra (urethritis). What are the causes? Most urinary tract infections are caused by bacteria in your genital area, around the entrance to your urinary tract (urethra). These bacteria grow and cause inflammation of your urinary tract. What increases the risk? You are more likely to develop this condition if: You have a urinary catheter that stays in place (indwelling). You are not able to control when you urinate or have a bowel movement (you have incontinence). You are female and you: ?Use a spermicide or diaphragm for control. ?Have low estrogen levels. ?Are . You have certain genes that increase your risk (genetics). You are sexually active. You take antibiotic medicines. You have a condition that causes your flow of urine to slow down, such as: ?An enlarged prostate, if you are male. ?Blockage in your urethra (stricture). ?A kidney stone. ?A nerve condition that affects your bladder control (neurogenic bladder). ?Not getting enough to drink, or not urinating often. You have certain medical conditions, such as: ?Diabetes. ?A weak disease-fighting system (immunesystem). ?Sickle cell disease. ?Gout. ?Spinal cord injury. What are the signs or symptoms? Symptoms of this condition include: Needing to urinate right away (urgently). Frequent urination or passing small amounts of urine frequently. Pain or burning with urination. Blood in the urine. Urine that smells bad or unusual. Trouble urinating. Cloudy urine. Vaginal discharge, if you are female. Pain in the abdomen or the lower back. You may also have: Vomiting or a decreased appetite. Confusion. Irritability or tiredness. A fever. Diarrhea. The first symptom in older adults may be confusion. In some cases, they may not have any symptoms until the infection has worsened. How is this diagnosed? This condition is diagnosed based on your medical history and a physical exam. You may also have other tests, including: Urine tests. Blood tests. Tests for sexually transmitted infections (STIs). If you have had more than one UTI, a cystoscopy or imaging studies may be done to determine the cause of the infections. How is this treated? Treatment for this condition includes: Antibiotic medicine. Rtqt-gvl-kirywsp medicines to treat discomfort. Drinking enough water to stay hydrated. If you have frequent infections or have other conditions such as a kidney stone, you may need to see a health care provider who specializes in the urinary tract (urologist). In rare cases, urinary tract infections can cause sepsis. Sepsis is a life- threatening condition that occurs when the body responds to an infection. Sepsis is treated in the hospital with IV antibiotics, fluids, and other medicines. Follow these instructions at home: Medicines Take tsnj-fvx-ooqqovm and prescription medicines only as told by your health care provider. If you were prescribed an antibiotic medicine, take it as told by your health care provider. Do notstop using the antibiotic even if you start to feel better. General instructions Make sure you: ?Empty your bladder often and completely. Do not hold urine for long periods of time. ?Empty your bladder after sex. ?Wipe from front to back after a bowel movement if you are female. Use each tissue one time when you wipe. Drink enough fluid to keep your urine pale yellow. Keep all follow-up visits as told by your health care provider. This is important. Contact a health care provider if: Your symptoms do not get better after 1 2 days. Your symptoms go away and then return. Get help right away if you have: Severe pain in your back or your lower abdomen. A fever. Nausea or vomiting. Summary A urinary tract infection (UTI) is an infection of any part of the urinary tract, which includes the kidneys, ureters, bladder, and urethra. Most urinary tract infections are caused by bacteria in your genital area, around the entrance to your urinary tract (urethra). Treatment for this condition often includes antibiotic medicines. If you were prescribed an antibiotic medicine, take it as told by your health care provider. Do notstop using the antibiotic even if you start to feel better. Keep all follow-up visits as told by your health care provider. This is important. This information is not intended to replace advice given to you by your health care provider. Make sure you discuss any questions you have with your health care provider. Document Released: 11/10/2005 Document Revised: 01/18/2019 Document Reviewed: 08/10/2018 [employer] Patient Education 2020 [employer]. Follow Up Care 11/10/2021 12:07:08 With:Horacio Link Address: [address] [place] [address]- Business (1) When:11/13/2021 13:20:06 [facility]09-27-2022 Evaluation + Plan note Diagnostic Tests Pending * Urine Culture 11/10/21 [facility]08-01-2022 Progress note Author Radha O[facility] September 14, 2021 10:31am Note Date/Time September 14, 2021 10: 31am [facility] [address] [place] [id number] RN MED SURG Progress Note Signed Patient: Sabrina Tovar MR#: [id number] : 1995 Acct:[id number] Age/Sex: 26 / F Adm Date: 2 Loc: Room: [address] [place] [address] Type: ADM IN Attending Dr: Presley Ortega MD Copies to: ~ Date of Service: 09/14/2021 OB - PN: Subj Subjective Post Delivery Day #: Day 2 Interval history: Patient is doing well and denies complaints. Patient is ambulating, urinating, passing gas, and has had a bowel movement since delivery. She denies lightheadedness when walking. Patient denies pain, SOB, or chest pain. Patient denies excessive vaginal bleeding or clots at this time. Baby is doing well butis under the light. Patient has attempted to breastfeed, but her milk is not coming in. The family is now thinking they may just bottle feed moving forward. Patient comments: no complaints [place] baby status: doing well and bottle feeding well; no nursing well feeding status: breast and bottle feeding OB - PN: Obj Exam Physical Exam Vital signs: Vital Signs - 8 hr 09/14/21 00:10 Temperature 97.6 F Pulse Rate [Monitor] 110 H Respiratory Rate 18 Blood Pressure [Left Arm] 135/100 02 Sat by Pulse Oximetry 97 Oxygen Delivery Method Room Air Constitutional Constitutional: no acute distress Respiratory Exam Respiratory: Present CTA bilaterally Cardiovascular Exam Cardiovascular: Present RRR Abdominal Exam Abdominal: Present soft Fundus: Present firm (below umbilicus) Extremities Exam Extremities: Absent cyanosis Urinary Catheter Management Straight: Cath placed during this visit: no OB - PN: Obj Data Labs CBC & Chem 7: 09/13/21 07:05 09/12/21 10:24 Labs: 09/13/21 07:05: Uncorrected WBC Count 13.1 H, MCV 83.6, MCH 27.9, MCHC 33.3, RDW15.3, Plt Count 237, MPV 7.2, Neut % (Auto) 73.9, Lymph % (Auto) 18.5, [place] % (Auto) 6.5, Eos % (Auto) 0.8, Baso % (Auto) 0.3, Neut # (Auto) 9.7 H, Lymph # (Auto) 2.4, [place] # (Auto) 0.9 H, Eos # (Auto) 0.1, Baso # (Auto) 0.0, Nucleated RBC % (auto) 0.1 09/11/21 21:40: RPR w/Rflx to Titer Non reactive Assessment/Plan Assessment (1) 40 weeks gestation of : Code(s): Z3A.40 - 40 weeks gestation of Status: Acute (2) Status post vaginal delivery: Status: Acute Plan Ms. Tovar is a 26 yo status 2 days post vaginal delivery at 40 weeks 1 day. Plan day: 2 Vaginal delivery plan (if applicable): routine care, discharge home and follow up 6 weeks Documented By: Radha Orona DO 09/14/21 07 01 Signed By: <Electronically signed by Radha Orona DO> 09/14/21 1031 [facility] Work Phone: 1(486) 690-303207-31-2022 Progress note Author PRESLEY ORTEGA [facility] September 13, 2021 8:54am Note Date/Time September 13, 2021 8:54 am [facility] [address] [place] [address] RN MED SURG Progress Note Signed Patient: Sabrina Tovar MR#: [id number] : 1995 Acct:[id number] Age/Sex: 26 / F Adm Date: 2 Loc: Room: [address] [place] [address] Type: ADM IN Attending Dr: Presley Ortega MD Copies to: ~ Date of Service: 09/13/2021 OB - PN: Subj Subjective Post Delivery Day #: Day 1 Interval history: 09/13 Patient is doing well and denies complaints. Patient is ambulating, urinating, and passing gas, but has NOT had a bowel movement since delivery. She denies lightheadedness when walking. Patient denies pain, SOB, or chest pain. Patient denies excessive vaginal bleeding or clots at this time. Baby is doing well and is being breast fed. Patient comments: no complaints [place] baby status: doing well feeding status: exclusively breast feeding OB - PN: Obj Exam Physical Exam Vital signs: Vital Signs - 8 hr 09/12/21 23:35 Temperature 97.7 F Pulse Rate [Monitor] 80 Respiratory Rate 18 Blood Pressure [Left Arm] 128/86 02 Sat by Pulse Oximetry 98 Oxygen Delivery Method Room Air Constitutional Constitutional: no acute distress Respiratory Exam Respiratory: Present CTA bilaterally; Absent respiratory distress Cardiovascular Exam Cardiovascular: Present RRR; Absent S3 Abdominal Exam Abdominal: Present soft; Absent normoactive bowel sounds or surgical scars Fundus: Present firm Comments: Soft abdomen. Bowel sounds not auscultated x4. Extremities Exam Extremities: Present pulses intact and joint swelling; Absent Sebas's sign Psychiatric Exam Psychiatric: Present normal affect, normal thought process, cooperative, good insight and good judgment Comments: Appropriate mood and affect. Urinary Catheter Management Straight: Cath placed during this visit: no OB - PN: Obj Data Labs CBC & Chem 7: 09/13/21 07:05 09/12/21 10:24 Labs: 09/12/21 10:24: PHA Creatinine Clear 152.06, Est GFR ( Amer) > 60, Est GFR (Non-Af Amer) > 60, Total Bilirubin 0.7, AST 15, ALT 15, Alkaline Phosphatase 183 H, Total Protein 6.0 L, Albumin 2.3 L, Globulin 3.7, Albumin/Globulin Ratio 0.6 Assessment/Plan Assessment (1) 40 weeks gestation of : Code(s): Z3A.40 - 40 weeks gestation of Status: Acute Plan Ms. Tovar is a 26 yo female 1 day post vaginal delivery at 40 weeks gestation. Plan day: 1 Vaginal delivery plan (if applicable): routine care Documented By: PRESLEY ORTEGA MD 09/13/21 0654 Signed By: <Electronically signed by MD PRESLEY ORTEGA> 09/13/21 0854 [facility] Work Phone: 1(581) 551-309807-30-2022 [facility] + Plan note Diagnostic Tests Pending * Group B Streptococcus colonization by PCR 08/12/21 [facility]06-03-2022 Hospital Discharge instructions Patient Education 07/17/2021 11:06:59 Musculoskeletal Pain Musculoskeletal Pain Musculoskeletal pain refers to aches and pains in your bones, joints, muscles, and the tissues thatsurround them. This pain can occur in any part of the body. It can last for a short time (acute) ora long time (chronic). A physical exam, lab tests, and imaging studies may be done to find the cause of your musculoskeletal pain. Follow these instructions at home: Lifestyle Try to control or lower your stress levels. Stress increases muscle tension and can worsen musculoskeletal pain. It is important to recognize when you are anxious or stressed and learn ways to manageit. This may include: ?Meditation or yoga. ?Cognitive or behavioral therapy. ?Acupuncture or massage therapy. You may continue all activities unless the activities cause more pain. When the pain gets better, slowly resume your normal activities. Gradually increase the intensity and duration of your activities or exercise. Managing pain, stiffness, and swelling Take ygup-zyj-ekwthzx and prescription medicines only as told by your health care provider. When your pain is severe, bed rest may be helpful. Lie or sit in any position that is comfortable, but get out of bed and walk around at least every couple of hours. If directed, apply heat to the affected area as often as told by your health care provider. Use theheat source that your health care provider recommends, such as a moist heat pack or a heating pad. ?Place a towel between your skin and the heat source. ?Leave the heat on for 20 30 minutes. ?Remove the heat if your skin turns bright red. This is especially important if you are unable to feel pain, heat, or cold. You may have a greater risk of getting burned. If directed, put ice on the painful area. ?Put ice in a plastic bag. ?Place a towel between your skin and the bag. ?Leave the ice on for 20 minutes, 2 3 times a day. General instructions Your health care provider may recommend that you see a physical therapist. This person can help youcome up with a safe exercise program. Do any exercises as told by your physical therapist. Keep all follow-up visits, including any physical therapy visits, as told by your health care providers. This is important. Contact a health care provider if: Your pain gets worse. Medicines do not help ease your pain. You cannot use the part of your body that hurts, such as your arm, leg, or neck. You have trouble sleeping. You have trouble doing your normal activities. Get help right away if: You have a new injury and your pain is worse or different. You feel numb or you have tingling in the painful area. Summary Musculoskeletal pain refers to aches and pains in your bones, joints, muscles, and the tissues thatsurround them. This pain can occur in any part of the body. Your health care provider may recommend that you see a physical therapist. This person can help youcome up with a safe exercise program. Do any exercises as told by your physical therapist. Lower your stress level. Stress can worsen musculoskeletal pain. Ways to lower stress may include meditation, yoga, cognitive or behavioral therapy, acupuncture, and massage therapy. This information is not intended to replace advice given to you by your health care provider. Make sure you discuss any questions you have with your health care provider. Document Released: 01/31/2006 Document Revised: 01/13/2018 Document Reviewed: 03/02/2017 [employer] Patient Education 2020 [employer]. Follow Up Care 07/17/2021 09:19:46 With:Presley Ortega MD Address: When:07/20/2021 [facility]04-30-2022 Evaluation + Plan note Diagnostic Tests Pending * Urine Culture 06/13/21 [facility]04-30-2022 Hospital Discharge instructions Follow Up Care 06/13/2021 09:58:45 With:Presley Ortega Address:Unknown When:06/24/2021 Comments:Call for any problems.Call for fever > 100.5 FCall for severe abdominal painCall physician for heavy vaginal bleedinCall physician if symptoms worsenReturn for decreased movementReturn if ruptured membranes or vaginalKeep next scheduled appt [facility]04-21-2022 Hospital Discharge instructions Patient Education 06/04/2021 16:07:19 Nausea and Vomiting, Adult Nausea and Vomiting, Adult Nausea is the feeling that you have an upset stomach or that you are about to vomit. Vomiting is when stomach contents are thrown up and out of the mouth as a result of nausea. Vomiting can make you feel weak and cause you to become dehydrated. Dehydration can make you feel tired and thirsty, cause you to have a dry mouth, and decrease how often you urinate. Older adults and people with other diseases or a weak disease-fighting system (immune system) are at higher risk for dehydration. It is important to treat your nausea and vomiting as told by your health care provider. Follow these instructions at home: Watch your symptoms for any changes. Tell your health care provider about them. Follow these instructions to care for yourself at home. Eating and drinking Take an oral rehydration solution (ORS). This is a drink that is sold at pharmacies and retail stores. Drink clear fluids slowly and in small amounts as you are able. Clear fluids include water, ice chips, low-calorie sports drinks, and fruit juice that has water added (diluted fruit juice). Eat bland, zceo-xn-qpuhqe foods in small amounts as you are able. These foods include bananas, applesauce, rice, lean meats, toast, and crackers. Avoid fluids that contain a lot of sugar or caffeine, such as energy drinks, sports drinks, and soda. Avoid alcohol. Avoid spicy or fatty foods. General instructions Take tsrz-hir-swjevyi and prescription medicines only as told by your health care provider. Drink enough fluid to keep your urine pale yellow. Wash your hands often using soap and water. If soap and water are not available, use hand mounted police officer. Make sure that all people in your household wash their hands well and often. Rest at home while you recover. Watch your condition for any changes. Breathe slowly and deeply when you feel nauseated. Keep all follow-up visits as told by your health care provider. This is important. Contact a health care provider if: Your symptoms get worse. You have new symptoms. You have a fever. You cannot drink fluids without vomiting. Your nausea does not go away after 2 days. You feel light-headed or dizzy. You have a headache. You have muscle cramps. You have a rash. You have pain while urinating. Get help right away if: You have pain in your chest, neck, arm, or jaw. You feel extremely weak or you faint. You have persistent vomiting. You have vomit that is bright red or looks like black coffee grounds. You have bloody or black stools or stools that look like tar. You have a severe headache, a stiff neck, or both. You have severe pain, cramping, or bloating in your abdomen. You have difficulty breathing, or you are breathing very quickly. Your heart is beating very quickly. Your skin feels cold and clammy. You feel confused. You have signs of dehydration, such as: ?Dark urine, very little urine, or no urine. ?Cracked lips. ?Dry mouth. ?Sunken eyes. ?Sleepiness. ?Weakness. These symptoms may represent a serious problem that is an emergency. Do not wait to see if the symptoms will go away. Get medical help right away. Call your local emergency services (911 in the [place] Do not drive yourself to the hospital. Summary Nausea is the feeling that you have an upset stomach or that you are about to vomit. As nausea getsworse, it can lead to vomiting. Vomiting can make you feel weak and cause you to become dehydrated. Follow instructions from your health care provider about eating and drinking to prevent dehydration. Take ekou-ojq-dxsxlgt and prescription medicines only as told by your health care provider. Contact your health care provider if your symptoms get worse, or you have new symptoms. Keep all follow-up visits as told by your health care provider. This is important. This information is not intended to replace advice given to you by your health care provider. Make sure you discuss any questions you have with your health care provider. Document Released: 01/31/2006 Document Revised: 05/25/2019 Document Reviewed: 07/11/2018 [employer] Patient Education 2020 [employer]. Follow Up Care 06/04/2021 14:33:50 With:Ann-Marie Romero Address: [address] [place] [address] [place] [address] [phone] Business (1) When:06/07/2021 16:06:44 [facility]04-21-2022 Evaluation + Plan noteExtracted from: Title:ED Note Author:Ellis Nice PA-C Date :06/04/21 Nausea with vomiting (R11.2: Nausea with vomiting, unspecified) (Z34.90: Encounter for supervision of normal , unspecified, unspecified trimester) Orders: promethazine, 12.5 mg = 0.5 mL, Injection, IV Push, Once, Stop date 06/04/21 14:53:00 EDT, STAT, Start date 06/04/21 14:53:00 EDT, 06/04/21 14:53:00 EDT promethazine, 25 mg = 1 tab(s), Oral, q6hr, # 14 tab(s), Refills(s) 0, Pharmacy: [facility]/pharmacy #[id number], 165, cm, 06/04/21 14:38:00 EDT, Height/Length Dosing, 123, kg, 06/04/21 14:38:00 EDT, Weight Dosing Sodium Chloride 0.9% intravenous solution, 1,000 mL, Soln-IV, IV, Once, Stop date 06/04/21 14:53:00 EDT, STAT, Start date 06/04/21 14:53:00 EDT, mL/hr, Infuse over 61, minute(s) Automated Diff CBC w/ Auto Diff Comprehensive Metabolic Panel eGFR Extra Blue Tube Lipase Level UA With Cult Reflex [facility]03-30-2022 Hospital Discharge instructions Patient Education 05/13/2021 13:28:47 Cool Mist Vaporizer Cool Mist Vaporizer A cool mist vaporizer is a device that releases a cool mist into the air. If you have a cough or a cold, using a vaporizer may help relieve your symptoms. The mist adds moisture to the air, which mayhelp thin your mucus and make it less sticky. When your mucus is thin and less sticky, it easier for you to breathe and to cough up secretions. Do not use a vaporizer if you are allergic to mold. Follow these instructions at home: Follow the instructions that come with the vaporizer. Do not use anything other than distilled water in the vaporizer. Do not run the vaporizer all of the time. Doing that can cause mold or bacteria to grow in the vaporizer. Clean the vaporizer after each time that you use it. Clean and dry the vaporizer well before storing it. Stop using the vaporizer if your breathing symptoms get worse. This information is not intended to replace advice given to you by your health care provider. Make sure you discuss any questions you have with your health care provider. Document Released: 10/28/2004 Document Revised: 02/17/2017 Document Reviewed: 05/01/2016 [employer] Patient Education 2020 [employer]. 05/13/2021 13:28:44 Rapid Strep Test Rapid Strep Test Why am I having this test? A rapid strep test is used to check for strep throat. Strep throat is a bacterial infection caused by the bacteria Streptococcus pyogenes. A rapid strep test is the quickest way to check if these bacteria are causing your sore throat. You may have this test if you have symptoms of strep throat. These include: Throat pain. Fever. A red throat with yellow or white spots. Neck swelling and tenderness. Loss of appetite. Trouble breathing or swallowing. Rash. Dehydration. The test can be done at your health care provider's office. Results are usually ready in about 20 minutes. What is being tested? This test checks for the presence of the Streptococcus pyogenes bacteria. What kind of sample is taken? This test requires a sample of fluid from the back of your throat and tonsils. Your health care provider may hold down your tongue with a tongue depressor and use a swab to collect the sample. Your health care provider may collect a second sample at the same time. The second sample may be used for a throat culture. In a culture test, the sample is combined with a substance that encourages bacteria to grow. It takes longer to get the results of the throat culture test, but they are more accurate. They can confirm the results from a rapid strep test, or they may show that those results were wrong. How are the results reported? Your test results will be reported as either positive or negative for the bacteria that cause strepthroat. What do the results mean? If the result of your rapid strep test is negative, it means that: It is likely that you do not have strep throat. A virus may be causing your sore throat. If the result of your rapid strep test is positive, it means that: It is likely that you do have strep throat. You may have to take antibiotic medicine. Talk with your health care provider about what your results mean. Your health care provider may do a throat culture to confirm the results of the rapid strep test. The throat culture can also identify the different strains of bacteria that are present. Questions to ask your health care provider Ask your health care provider, or the department that is doing the test: When will my results be ready? How will I get my results? What are my treatment options? What other tests do I need? What are my next steps? Summary A rapid strep test is used to check for strep throat. Strep throat is a bacterial infection caused by the bacteria Streptococcus pyogenes. A rapid strep test is the quickest way to check if these bacteria are causing your sore throat. The test can be done at your health care provider's office. Results are usually ready in about 20 minutes. This test requires a sample of fluid from the back of your throat and tonsils. Your health care provider may hold down your tongue with a tongue depressor and use a swab to collect the sample. Your test results will be reported as either positive or negative for the bacteria that cause strepthroat. This information is not intended to replace advice given to you by your health care provider. Make sure you discuss any questions you have with your health care provider. Document Released: 03/10/2005 Document Revised: 05/25/2019 Document Reviewed: 10/04/2017 [employer] Patient Education 2020 [employer]. Follow Up Care 05/13/2021 12:18:07 With:Nick DOMINGO, MIGDALIA Tompkins Address: [address] [place] [address] [place] [phone] When: Unknown [facility] Evaluation + Plan note No data available for this section [facility] Evaluation + Plan note Future Appointments Appointment Date:01/14/2023 01:40:00 PM Scheduled Provider:Ricarda Anthony Location:[facility] Future Appointments Appointment Date:07/25/2023 08:40:00 AM Scheduled Provider:JOAQUÍN RODRIGUEZ Location:[facility] Appointment Type: Open [facility] [place] Evaluation + Plan note Future Appointments Appointment Date:10/12/2023 08:00:00 AM Scheduled [facility] () Appointment Date:11/07/2023 02:00:00 PM Scheduled Provider:JOAQUÍN RODRIGUEZ Location:[facility] Appointment Type: Open Future Scheduled Tests Radiology* MRI Brain w/ + w/o Contrast 10/12/23 [facility] [place] Evaluation + Plan note Future Appointments Appointment Date:11/07/2023 02:00:00 PM Scheduled Provider:JOAQUÍN RODRIGUEZ Location:[facility] Appointment Type:FM Open [facility] Evaluation note* Diagnosis Onset Date Resolution Status 40 weeks gestation of acute Status post vaginal delivery acute [facility] Work Phone: Evaluation note* Diagnosis Missed menses Missed menses , unspecified gestational age Encounter for supervision of normal first in first trimester [facility] No data available for this section [facility] No data available for this section [facility] (narrative) Referred by: JOAQUÍN RODRIGUEZ [facility] Summary Purpose Family History No Family History Records FoundNo Family History Records Found No data available for this section No data available for this section No data available for this section No data available for this section No data available for this section No data available for this section No data available for this section No data available for this section No data available for this section No data available for this section No Family History Records FoundNo Family History Records FoundNo Family History Records FoundNo Family History Records Found Advance Directives Advance Directive Response Recorded Date/ Time Advance Directives No September 10 1:39pm Chief Complaint and Reason for Visit Chief Complaint IUP (Intrauterine Pr egnancy) Reason for Visit 40 weeks gestation o f Status post vaginal delivery Additional Source Comments INFORMATION SOURCE (unrecogn ized section and content) DATE CREATED AUTHOR 02/16/2021 [facility] DATE CREATED AUTHOR AUTHOR'S ORGANIZ ATION 02/24/2022 [facility] DATE CREATED AUTHOR AUTHOR'S ORGANIZ ATION 04/20/2024 [facility] DATE CREATED AUTHOR AUTHOR'S ORGANIZ ATION 04/30/2024 [facility] DATE CREATED AUTHOR AUTHOR'S ORGANIZ ATION 05/20/2024 [facility] EPIC Care Team (unrecognized sect ion and content) Team Status: Inactive Member Role Status Dates PHYSICIAN NO FAMILY Primary Care Provider Active Presley Ortega MD Admit Provider, Attending Provider A ctive Team Status: Active Member Role Status Dates PHYSICIAN NO FAMILY Primary Care Provider Active Reason for Visit (unrecogniz ed section and content) Reason Comments Amenorrhea FOR RECORDS PERTAINING TO PATIENTS WHO ARE OR HAVE BEEN ENROLLED IN A CHEMICAL DEPENDENCY/SUBSTANCEABUSE PROGRAM, SOME INFORMATION MAY BE OMITTED. This clinical summary was aggregated from multiple sources. Caution should be exercised in using it in the provision of clinical care. This summary normalizes information from multiple sources, and as a consequence, information in this document may materially change the coding, format and clinical context of patient data. In addition, data may be omitted in some cases. CLINICAL DECISIONS SHOULD BE BASED ON THE PRIMARY CLINICAL RECORDS. [facility]. provides no warranty or guarantee of the accuracy or completeness of information in this document.
[2024-05-28 12:10] LABS: Amphetamine Screen Urine NEGATIVE (NEGATIVE); Barbiturates Screen Urine NEGATIVE (NEGATIVE); Benzodiazepines Screen Urine NEGATIVE (NEGATIVE); Buprenorphine Screen Urine NEGATIVE (NEGATIVE); Cannabinoid Screen Urine NEGATIVE (NEGATIVE); Cocaine Screen Urine NEGATIVE (NEGATIVE); Methadone Screen Urine NEGATIVE (NEGATIVE); Methamphetamines Screen Urine NEGATIVE (NEGATIVE); Opiate Screen Urine NEGATIVE (NEGATIVE); Oxycodone Screen Urine NEGATIVE (NEGATIVE); Phencyclidine Screen Urine NEGATIVE (NEGATIVE); Tricyclic Antidepressant Urine NEGATIVE (NEGATIVE)
== END 2024-05-27 10:21 | disposition home or self-care (01) ==
LOC: LAB 10:20
PROVIDERS: Visit Provider Obstetrics & Gynecology
DX: Z34.01 Encounter for supervision of normal first pregnancy, first trimester (principal); N92.6 Irregular menstruation, unspecified
CPT/HCPCS: 80307; 87086

== ENCOUNTER 2024-08-20 19:44 | Outpatient (REF) | payer BC, OTHER, SELFPAY ==
--- OUTSIDE RECORDS SUMMARY | 2024-08-15 08:01 | XMS_ITS | Continuity of Care Document ---
Author Organization [facility] Address [address] [place] [address] Phone Care Team Providers Care Director Regulatory Affairs Name Role Phone Bishnu Virk DDS Unavailable Unavailable Allergies, Adverse Reactions, Alerts Substance Reaction Status Criticality No Known Allergies Active No Inform ation Medications Medication Instructions Dosage Effective Dates (start - stop) Status Comments ibuprofen 200 mg capsule take 1 capsule by oral route every 6 hours as needed 200 MG - Active 28 mg iron-800 mcg tablet - Active Procedures Procedure Date Panoramic Film Bitewings-three Films Oral Hygiene Instruction Comp Oral Eval New/estab Patient 2024 Intraoral-periapical 1st Film [id number] Additional Jul Bitewig-single Film Oral Hygiene Instruction Limited Oral Eval Extract; Erupted Th/exposted Rt [address] Advance Directives Directive Yes / No Effective Date File Name No Information Encounters Encounter Description Practice Location Reason(s) For Visit Diagnoses Date Provider Providers Copied on Encounter [facility], [address] [place] [address], [id number], [place] tel:[phone] [facility] DL (chief complaint) Encounter for screening for dental disorders Moose JAIMES Yixue. [address] [place] [address], [id number], . tel:[phone] [facility], [address] [place] [address], [id number], [place] tel:[phone] [facility] Dental Clinic Dental ER (chief complaint) Encounter for screening for dental disorders Moose Goetz. [address] [place], [address], . tel:[phone] Family History Family Member Type Diagnosis Age At Onset No Information Payers Payer name Insurance type Covered constitution party ID Authorjoana timerlin(s) D [employer] [id number] D Medicaid Wrap - [facility] [id number] Social History Type Description Quantity Date Captured Comments Alcohol Use Details Unknown Caffeine Use Details Unknown Tobacco Use Status No Information Smoking Status No Information Sex Female Vital Signs Date / Time: Height Weight BMI Pulse Rate Blood Pressure Temperature Respiratory Rate Body Surface Area Head Circumference Head Circ. Percentile Wt./Darinel. Percentile BMI percentile Pulse Ox Inhaled Ox 12:56 PM 79 /min 138/96 mm[Hg] 98.10 F Chief Complaint And Reason For Visit From encounter dated '08/15/2024 12:01'. DL (chief complaint). Description: DL Reason For Referral Reason For Referral No Information Plan Of Treatment Date Type Action Status Goal Unhealthy drug use screening . Due on due Goal Hepatitis C screening. Due o n due Goal RLP. Due on due Goal PRAPARE ASSESSMENT. Due on due Goal Influenza vaccine. Due on due Goal Depression screening. Due on due Goal HPV. Due on due Goal Tdap Vaccine. Due on 2024 due Goal Tdap. Due on due Goal Tdap. Due on due Goal Tdap Vaccine. Due on 2024 due Goal Hepatitis C screening. Due o n due Goal Influenza vaccine. Due on Ju due Goal PRAPARE ASSESSMENT. Due on J due Goal Depression screening. Due on due Goal Unhealthy drug use screening . Due on due Goal HPV. Due on due Goal RLP. Due on due Appointment Sabrina Edwards BOOKED History Of Present Illness Encounter Date Complaint History Of Prese nt Illness DL DL Dental ER Dental er Functional Status Date Functional Assessmen t No Information Instructions Date Instruction Additional Infor mation No Information Assessments Type Assessment Date No Information Patient Care Teams Name Effective Dates (start - stop) Status Members No Information
--- OUTSIDE RECORDS SUMMARY | 2024-08-20 14:10 | XMS_ITS | Encounter Summary ---
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 24 weeks gestation of ([facility]); Exposure to STD; Need for maternal serum alpha-protein (MSAFP) screening ([facility]); Encounter for follow-up ultrasound of anatomy ([facility]) Social History Tobacco Use Types Packs/Day Years Used Date Smoking Tobacco: Never Assessed Estimated Date of Delivery Comme nts Yes 12/06/2024 Based on Ultraso und Sex and Gender Information Value Date Recorded Sex Assigned at Female 05/17/2024 11:15 AM EDT Legal Sex Female 7:14 PM EDT Gender Identity Female 05/17/2024 11:15 AM EDT Sexual Orientation Bisexual 05/17/2024 11 :15 AM EDT documented as of this encounter Last Filed Vital Signs Vital Sign Reading Time Taken Comments Blood Pressure 122/74 08/20/2024 2:57 PM EDT Pulse - - Temperature - - Respiratory Rate - - Oxygen Saturation - - Inhaled Oxygen Concentration - - Weight 128 kg (283 lb) 08/20/2024 2:57 PM EDT Height - - Body Mass Index 48.58 10/28/2021 12:00 PM EDT documented in this encounter Progress Notes * Berta Yoder MA - 08/20/2024 2:10 PM EDT Reason for Appointment: Patient ID: Sabrina Tovar is a 29 y.o. female who presents for Routine Visit Patient presents today for Return OB appointment. MEDICATIONS Current Outpatient Medications Medication Instructions ALBUTEROL IN Alcohol Swabs (Alcohol Prep Pad) 70 % pads 1 Pad, Topical, Daily, Use four times daily to check FSBS. Blood Glucose Monitoring Suppl ([employer] Glucometer) w/Device kit 1 kit, Does not apply, Daily, Use four times daily to check FSBS. In the morning prior to breakfast & 1 hour after each meal for a total of 4times daily. [employer] Allergy Relief-D12 5-120 MG 12 hr tablet 1 tablet, Every 12 hours ipratropium-albuterol (Duo-Neb) 0.5-2.5 mg/3 mL nebulizer solution INHALE 1 VIAL VIA NEBULIZER 4 TIMES A DAY meclizine (ANTIVERT) 25 mg SUMAtriptan (IMITREX) 25 mg ALLERGIES No Known Allergies PROBLEMS Active Ambulatory Problems Diagnosis Date Noted No Active Ambulatory Problems Resolved Ambulatory Problems Diagnosis Date Noted No Resolved Ambulatory Problems No Additional Past Medical History HISTORY PAST MEDICAL HISTORY SOCIAL HISTORY No past medical history on file. Social History Tobacco Use Smoking status: Not on file Smokeless tobacco: Not on file Substance Use Topics Alcohol use: Not on file Drug use: Not on file FAMILY HISTORY No family history on file. SURGICAL HISTORY History reviewed. No pertinent surgical history. REVIEW OF SYSTEMS Review of Systems: Review of Systems All other systems reviewed and are negative. OBJECTIVE Objective: Physical Exam Constitutional: Appearance: Normal appearance. She is well-developed. Genitourinary: Vulva normal. Right Adnexa: not tender and no mass present. Left Adnexa: not tender and no mass present. No cervical discharge. Breasts: Breasts are soft. Right: Normal. Left: Normal. HENT: Head: Normocephalic. Nose: Nose normal. Mouth/Throat: Mouth: Mucous membranes are moist. Cardiovascular: Rate and Rhythm: Normal rate and regular rhythm. Pulmonary: Effort: Pulmonary effort is normal. Breath sounds: Normal breath sounds. Abdominal: General: Bowel sounds are normal. There is no distension. Palpations: Abdomen is soft. Tenderness: There is no abdominal tenderness. There is no guarding or rebound. Musculoskeletal: General: No swelling. Normal range of motion. Cervical back: Normal range of motion. Right lower leg: No edema. Left lower leg: No edema. Neurological: General: No focal deficit present. Mental Status: She is alert and oriented to person, place, and time. Skin: General: Skin is warm and dry. Psychiatric: Mood and Affect: Mood normal. Behavior: Behavior normal. Vitals and nursing note reviewed. Exam conducted with a cold storage superintendent present. Vitals: Estimated body mass index is 47.38 kg/m² as calculated from the following: Height as of 10/28/21: 5' 4 . Weight as of 07/23/24: 276 lb. BP: No LMP recorded. Patient is . ASSESSMENT & PLAN ICD-10-CM 1. Well woman exam with routine gynecological exam Z01.419 Pap Smear HPV DNA probe, amplified 2. Second trimester ([facility]) Z34.92 POCT urinalysis dipstick manually resulted 3. 24 weeks gestation of ([facility]) Z3A.24 4. Exposure to STD Z20.2 SURESWAB(R) ADVANCED VAGINITIS PLUS, TMA CHLAMYDIA TRACHOMATIS (GENITO/STI) Neisseria gonorrhea DNA probe, direct 5. Need for maternal serum alpha-protein (MSAFP) screening ([facility]) Z36.1 6. Encounter for follow-up ultrasound of anatomy ([facility]) Z36.2 US OB limited 1+ fetuses Return OB/Annual Exam: Patient presents today for an annual/cx exam and routine obstetrics appointment. Patient is currently 24w4d . Patient is doing well and states she has no complaints. Pap/cultures was obtainedwithout difficulty and patient was given repeat US order to have obtained. Orders Placed This Encounter Procedures HPV DNA probe, amplified US OB limited 1+ fetuses CHLAMYDIA TRACHOMATIS (GENITO/STI) Neisseria gonorrhea DNA probe, direct POCT urinalysis dipstick manually resulted Follow Up: Patient is to return to our office in 4 weeks for routine OB appointment Documented by Berta Yoder MA on behalf of: gwen Mccormick, pac documented in this encounter Plan of Treatment Upcoming Encounters Date Type Department Care Team (Late st Contact Info) Description 08/29/2024 1:00 PM EDT Ancillary Procedure [facility] [address] [place] [address] 09/17/2024 1:30 PM EDT Routine [facility] [address] [place] [address] Gwen Mccormick PA [address] [place] [address] Scheduled Orders Name Type Priority Associated Diagnoses Orde r Schedule US OB limited 1+ fetuses Imaging Routine Encounter for follow-up ultrasound of anatomy ([facility]) Expected: 09/20/2024, Expires: 09/20/2024 Pap Smear Pathology and Cytology Routine Well woman exam with routine gynecological exam Ordered: 08/20/2024 HPV DNA probe, amplified Microbiology Routine Well woman exam with routine gynecological exam Ordered: 08/20/2024 SURESWAB(R) ADVANCED VAGINITIS PLUS, TMA Pathology and Cytology Routine Exposure to STD Ordered: 08/20/2024 CHLAMYDIA TRACHOMATIS (GENITO/STI) Lab Routine Exposure to STD Ordered: 08/20/2024 Neisseria gonorrhea DNA probe, direct Lab Routine Exposure to STD Ordered: 08/20/2024 documented as of this encounter Procedures Procedure Name Priority Date/Time Associated Diagnosis Comments POCT URINALYSIS DIPSTICK Routine 08/20/2024 2:57 PM EDT Second trimester ([facility]) documented in this encounter Results * POCT urinalysis dipstick manually resulted (08/20/2024 2:57 PM EDT) Color, UA Yellow Clarity, UA Clear Glucose, UA Negative Negative - 2000(110) ++++ mg/dL Bilirubin, UA Negative Negative - 4(70) +++ mg/dL Ketones, UA Negative Negative - 160(16) ++++ mg/dL Spec Grav, UA 1.015 1 - 1.03 Blood, UA Negative Negative - 50 Yossi/mcL pH, UA 7.0 5 - 9 Protein, UA Negative Negative - 2000(20) ++++ mg/dL Urobilinogen, UA 0.2 0.2 - 12 mg/dL Leukocytes, UA Negative Negative - 500+++ Wild/mcL Nitrite, UA Negative Negative - Positive Urine 08/20/2024 2:57 PM EDT Zack Ortiz DO POINT OF CARE TEST ENTER/EDIT OR DERABLES Final Result documented in this encounter Visit Diagnoses Diagnosis Well woman exam with routine gynecological exam Routine gynecological examination Second trimester ([facility]) state, incidental 24 weeks gestation of ([facility]) Exposure to STD Need for maternal serum alpha-protein (MSAFP) screening ([facility]) Encounter for follow-up ultrasound of anatomy ([facility]) documented in this encounter
--- OUTSIDE RECORDS SUMMARY | 2024-08-20 14:14 | XMS_ITS ---
Author Name Auto Generated Organization OHIP Care Team Providers Care Book Critic Name Role Phone LUCÍA LEDESMA Attending Unavailable MANASA DU Referring Unavailable SARAH YOON Attending Unavailable LUCÍA LEDESMA Attending Unavailable Virk DDS, Yixjono Attending Unavailable Virk DDS, Yixue Attending Unavailable Alva Jo H Attending Unavailable Sandro, Alva H Attending Unavailable BISHOP, FIELD RESEARCH ASSISTANT-C REY R Attending Unav ailable BISHOP, FIELD RESEARCH ASSISTANT-C REY R Attending Unav ailable BISHOP, FIELD RESEARCH ASSISTANT-C REY R Attending Unav ailable CIERSEZWSKI, FIELD RESEARCH ASSISTANT-C REY R Attending Unav ailable CIERSEZJOSUE, FIELD RESEARCH ASSISTANT-C REY R Attending Unav ailable BISHOP, FIELD RESEARCH ASSISTANT-C REY R Admitting Unav ailable CIERSEZWSKI, FIELD RESEARCH ASSISTANT-C REY R Referring Unav ailable PROBLEMS DATE TYPE CONDITION / CODE ATTENDING STATUS [facility] Working diagnosis Encounter for screening for dental disorders / Z13.84(ICD-10) Moose TREJOS, Bishnu Active [facility] PROCEDURES DATE CODE DESCRIPTION STATUS SOURCE 08/15/2024 D0330(CPT-4) Panoramic Film Completed [facility] RESULTS US OB 14+ WEEKS ANATOMY SCAN Observed: 0 07/23/2024 1:28 PM Status: F Source: [facility] EPIC Order Comment: US OB ANATOMY SINGLE W US OB CERVICAL LENGTH Estimated Date of Delivery: 12/06/24 Gestational Age as of 06/18/2024: 15w4d EXAM: US OB 14+ WEEKS ANATOM Y SCAN HISTORY: anatomy. COMPARISON: Ob ultrasound 05/18/2024 TECHNIQUE: Two-dimensional transabdominal grayscale ultrasound imaging of the pelvis was performed. Limited exam due to patient body habitus. FINDINGS: Gestation: Single Presentation: Cephalic Cardiac Activity: 141 beats per minute Placental Location: Posterior with no sonographic abnormalities identified. Distance from Placental Tip to Cervix: 9 cm Cervical Length: 3.7 cm Amniotic Fluid: Appears adequate MEASUREMENTS: BPD: 4.6 cm EGA: 19 weeks 6 days HC: 16.5 cm EGA: 19 weeks 2 days AC: 15.3 cm EGA: 20 weeks 4 days FL: 3.4 cm EGA: 20 weeks 6 days HC/AC Ratio: 1.08 The gestational age by today's ultrasound is 20 weeks 1 days (+/- 10 days gestation). Estimated Weight: 357 grams, +/- 54 grams ( 0 lb 13 oz). Weight Percentile for gestational age: 40 % ANATOMY C-Spine: Unremarkable T-Spine: Unremarkable L-Spine: Unremarkable Sacrum: Unremarkable Four Chamber Heart: Unremarkable LVOT: Not visualized RVOT: Not visualized Stomach: Unremarkable Kidneys: Unremarkable Bladder: Unremarkable Diaphragm: Unremarkable Cord insertion: Unremarkable Cord vessels: Three Lateral Ventricles: Unremarkable Cerebellum: Limited Cisterna Magna: Unremarkable Posterior Fossa: Limited Right Femur: Unremarkable Left Femur: Unremarkable Right Tib/Fib: Unremarkable Left Tib/Fib: Unremarkable Right Rad/Ulnar: Unremarkable Left Rad/Ulnar: Unremarkable Right Humerus: Unremarkable Left Humerus: Unremarkable Nose/Lips: Unremarkable Orbits: Unremarkable IMPRESSION: 1. Single, live intrauterine gestation 20 weeks, 4 days by LMP. Today's ultrasound measurements correlate with a gestational age of 20 weeks 1 days. Estimated weight is 357 grams, +/- 54 grams ( 0 lb 13 oz) which correlates to 40 %. JANNY is 12/09/2024. 2. Limited anatomy, as described above. A short-term follow-up ultrasound is recommended. Interpreted by: Electronically signed by UNA WEBBER II, MD, PHD at 25-Jul-2024 08:22:22 AM [facility] US OB TRANSVAGINAL Observed: 05/18/2024 10:11 AM Status: F Source: [facility] EPIC Order Comment: US OB TRANSVA GINAL No LMP recorded. EXAM: US OB TRANSVAGINAL HISTORY: Dating. LMP [...] the left ovary was not visualized. Electronically Signed:Electronically signed by UNA WEBBER II, MD, PHD at 20-May-2024 10:38:05 PM [facility] FAMILY MEDICINE OFFICE/CLINI C NOTE Observed: 04/27/2024 10:37 AM Status: F Source: [facility] Family Medicine Office/Clini c Note HPI Staff Patient is a 28 [...] might be . History of Present Illness Dorian is a 28 year old female who [...] have to consider long acting inhaler Ordered: albuterol-ipratropium, 3 mL, Inhalation, QID, 30 EA, Refill(s) 2, [id number], 165, cm, 04/27/24 9:52:00 EDT, Height/Length Dosing, 126, kg, 04/27/24 9:52:00 EDT, Weight Dosing predniSONE, See Instructions, take 2 tabs by mouth for 3 days, then take 1 tab by mouth for 3 days, then stop, # 9 tab(s), Refills(s) 0, [id number], 165, cm, 04/27/24 9:52:00 EDT, Height/Length [...] hours, # 9 tab(s), Refills(s) 1, Pharmacy: [facility]/pharmacy #[id number], 165, cm, 07/06/23 8:52:00 EDT, Height/Length [...] vaccine, inactivated - Not Given Patient Refuses diphtheria/pertussis, acel/tetanus adult 09/13/2021 Recorded SARS-CoV-2 (COVID-19) mRNA-1273 vaccine 10/09/2020 Recorded 2023-01-14: TPVAL diphtheria/pertussis, acel/tetanus adult 09/29/2020 Given (L) deltoid influenza virus vaccine, inactivated 11/26/2011 Recorded influenza virus vaccine, inactivated 02/12/2004 Recorded influenza virus vaccine, inactivated 03/01/2003 Recorded varicella virus vaccine 12/17/1996 Recorded haemophilus b conjugate (PRP-T) vaccine 10/19/1995 Recorded DTaP, unspecified formulation 10/19/1995 Recorded measles/mumps/rubella virus vaccine 06/21/1995 Recorded hepatitis B pediatric vaccine 03/09/1995 Recorded poliovirus vaccine, inactivated 1994 Recorded haemophilus b conjugate (PRP-T) vaccine 1994 Recorded DTaP, unspecified formulation 1994 Recorded poliovirus vaccine, inactivated 1994 Recorded hepatitis B pediatric vaccine 1994 Recorded haemophilus b conjugate (PRP-T) vaccine 1994 Recorded DTaP, unspecified formulation 1994 Recorded poliovirus vaccine, inactivated 1994 Recorded hepatitis B pediatric vaccine 1994 Recorded haemophilus b conjugate (PRP-T) vaccine 1994 Recorded DTaP, unspecified formulation 1994 Recorded Result Comment: Electronical ly Signed By: JOAQUÍN RODRIGUEZ\.br\Date and Time Signed: 04/27/24 10:37 EDT AMBULATORY VISIT SUMMARY Observed: 04/27 10:35 AM Status: F Source: [facility] Ambulatory Visit Summary DORIAN RICHMOND :1995 Visit Date:04/27/2024 Ambulatory Visit Instructions Your Diagnosis asthma BMI 45.0-49.9, adult Morbid obesity Your Care Team Attending Physician - JOAQUÍN RODRIGUEZ Primary Care Physician - JOAQUÍN RODRIGUEZ This Is Your Medications List Non-Formulary Medication ( Vitamins) albuterol (Albuterol (Eqv-ProAir HFA) 90 mcg/inh inhalation aerosol) albuterol (Ventolin HFA 90 mcg/inh Aerosol-Adpt) albuterol-ipratropium (DuoNeb 2.5 mg-0.5 mg/3 mL Soln-Inh) meclizine (meclizine 25 mg Tab) predniSONE (predniSONE 10 mg Tab) Procedures Performed Cholecystectomy, denies. Discharge Vitals Heart Rate (Peripheral) 82 Respiratory Rate 16 Blood Pressure 112/82 Height 165 cm Height 65 in Weight 126 kg Weight 277.782 lb BMI 46.28 Medications What How Much When Why Instructions New albuterol-ipratropium (DuoNeb 2.5 mg-0.5 mg/ 3 mL Soln-Inh) 3 Milliliter Inhalation 4 times a day asthma Refills: 2 Pickup at [id number] New predniSONE (predniSONE 10 mg Tab) See instructions asthma take 2 tabs by mouth for 3 days, then take 1 tab by mouth for 3 days, then stop Pickup at [facility]/pharmacy #[id number] Unchanged albuterol (Albuterol (Eqv-ProAir HFA) 90 mcg/ inh inhalation aerosol) Inhalation Every 6 hours Unchanged albuterol (Ventolin HFA 90 mcg/ inh Aerosol-Adpt) 1 Puffs Inhalation Every 6 hours as needed for for wheezing Unchanged meclizine (meclizine 25 mg Tab) 1 Tablets By Mouth 3 times a day as needed for for dizziness Unchanged Non-Formulary Medication ( Vitamins) [id number] [address] [place], [place] [phone] Allergies No Known Allergies Problems Ongoing - [...] you for choosing us for your care. ED PATIENT EDUCATION NOTE Observed: 06/2024 2:10 PM Status: F Source: [facility] ED Patient Education Note Infectious Disease Community-Acquired [...] these instructions at home: Medicines ??? Take mtsw-xrq-pzbmzxo and prescription medicines only as told by [...] cannot use soap and water, use hand commercial sewing instructor. Contact a doctor if: ??? You have [...] infection of the lungs. ??? Community-acquired pneumonia affects people who have not been in the hospital. Certain germs can cause this infection. ??? This condition may be treated with medicines that kill germs. ??? For very bad pneumonia, you may need a hospital stay and treatment to help with breathing. This information is not intended to replace advice given to you by your health care provider. Make sure you discuss any questions you have with your health care provider. Document Revised: 03/31/2022 Document Reviewed: 03/31/2022 Coverity Patient Education ? 2023 [employer]. ED PATIENT SUMMARY Observed: 04/18/2024 2:10 PM Status: F Source: [facility] ED Patient Summary [address] [address] Patient Discharge Instructions Person Information Name: DORIAN RICHMOND Age: 28 Years Arrival Date: 04/18/2024 11:36:25 Discharge Diagnosis: Pneumonia Primary Care Physician: JOAQUÍN RODRIGUEZ Provider Information Primary Provider: Alva Jo M.D. Advanced Assistant Product Manager:Mark Jackman PA-C. The exam and treatment you received in the Emergency Department were for an urgent problem and are not intended as complete care. It is important that you follow up with a doctor, nurse practitioner, or physician???s dietitian assistant for ongoing care. If your symptoms become worse or you do not improve as expected and you are unable to reach your usual health care provider, you should return to the Emergency Department. We are available 24 hours a day. DORIAN RICHMOND has been given the following list of patient education materials, prescriptions and follow-up instructions: Follow-up Instructions: With: Address: When: REY ALAS [address] [place] [address] Business (1) In 3 days 04/21/2024 Comments: Call Dr for diagnosis based follow up In the event that this physician does not participate in your insurance network, please consult with your insurance company to find a nearby participating provider. Patient Education Materials: Community-Acquired Pneumonia, Adult, Wzia-wt-Eqmz A MESSAGE TO ALL PATIENTS REGARDING OPIOIDS PRESCRIPTION OPIOIDS: WHAT YOU NEED TO KNOW Prescription opioids can be used to help relieve tdvrguhh-lv-bsbttp pain and are often prescribed following a [...] guidance from the Food and Drug Administration (www.fda.gov/Drugs/ResourcesForYou). ??? Visit www.cdc.gov/drugoverdose to learn about the risks of opioids abuse and overdose. ??? If you believe you may be struggling with addiction, tell your health field care manager and ask for guidance or call [facility]???S National Helpline at 2-003-585-ZRQI. v Source: US Department of Health and Human Services/Center for Disease Control & Prevention [facility] Medications Given: Medication Dose Route No medications found. Medication Information: New Medications [facility]/pharmacy #[id number], [address] [place], [place] [phone], [phone] amoxicillin (amoxicillin 500 mg Cap) 2 Capsules [...] 200 mg in 24 hours. Refills: 1. Comment: Patient Portal You may access all of your results and other medical record information on our secure patient portal. If you are not signed up for this yet, please contact [employer] at [phone] to get signed up today. PREET Award Nomination The PREET (Diseases Attacking the Immune SYstem) Award is an international recognition program that honors and celebrates the skillful, compassionate care nurses provide every day. Anyone who experiences or observes amazing care being provided by a nurse is encouraged to submit a nomination. To nominate your nurse, use your smart phone to scan the QR code below. You may receive a survey from [employer] asking you to rate your care experience. Your feedback is important and will help us understand what we do well and how we can improve the quality of care we provide to you, your loved ones and our community. It???s an honor to serve you. Thank you for choosing [facility] Patient Education Materials: Community-Acquired Pneumonia, Adult Pneumonia is an infection [...] these instructions at home: Medicines ??? Take uqsq-wdn-zpwkvwe and prescription medicines only as told by [...] cannot use soap and water, use hand commercial sewing instructor. Contact a doctor if: ??? You have [...] infection of the lungs. ??? Community-acquired pneumonia affects people who have not been in the hospital. Certain germs can cause this infection. ??? This condition may be treated with medicines that kill germs. ??? For very bad pneumonia, you may need a hospital stay and treatment to help with breathing. This information is not intended to replace advice given to you by your health care provider. Make sure you discuss any questions you have with your health care provider. Document Revised: 03/31/2022 Document Reviewed: 03/31/2022 Coverity Patient Education ? 2023 [employer]. I, DORIAN RICHMOND , have received the following patient education materials/instructions and have verbalized understanding: Patient Education Materials: Community-Acquired Pneumonia, Adult, Eoxl-dx-Zyzr Follow-up Instructions: With: Address: When: REY ALAS [address] [place] [address] Business (1) In 3 days 04/21/2024 Comments: Call Dr for diagnosis based follow up Patient Signature Date Clinician/Nurse Signature Date 04/18/2024 14:10:05 ED CLINICAL SUMMARY Observed: 04/18/2024 2:10 PM Status: F Source: [facility] ED Clinical Summary [address] [address] ED Clinical Summary Person Information Name: DORIAN RICHMOND [place] Age: 28 Years : 1995 Sex: Female Language: Uzbek PCP: JOAQUÍN RODRIGUEZ Marital Status: Phone: [phone] Visit Id: Visit Reason: Weakness or fatigue; [...] 14:10:02 04/18/2024 14:10:02 04/18/2024 14:10:02 ADDRESS: [address] [facility] [id number] PHYS DOC NOTES: MEDICAL INFORMATION: Prescriptions Given: New Medications [id number], [address] [place], [place] [phone], [phone] amoxicillin (amoxicillin 500 mg Cap) 2 Capsules [...] PATIENT EDUCATION INFORMATION: Instructions: Community-Acquired Pneumonia, Adult, Bumt-mg-Vrdv Follow up: With: Address: When: REY ALAS [address] [place], [place] [id number] Business (1) In 3 days 04/21/2024 Comments: Call Dr for diagnosis based follow up DIAGNOSIS: Pneumonia INFLUENZA A&B AG Collected: 04/18/2024 12:06 PM Stat us: F Source: [facility] TYPE CODE TESTS RESULT OUT OF RANGE REFERENCE UNITS LAB 64414683(LOINC) Influenzae A Ag NEGATIVE Normal Negativ e LAB [id number](LOINC) Influenzae B Ag NEGATIVE Normal Negativ e Result Comment: Test sensiti vity and specificity vary for age group, specimen type, antigen types, and prevalence of disease. Test results must be evaluated in conjunction with other clinical data available to the physician. Individuals who received nasally administered Influenza A vaccine may have positive test results up to 3 days after vaccination. Performed By: #### [id number] #### [facility] [address] [place] [address] RAPID COVID ANTIGEN ([facility]) Collected: 0 04/18/2024 12:06 PM Status: F Source: [facility] TYPE CODE TESTS RESULT OUT OF RANGE REFERENCE UNITS LAB 72422-3([facility]) SARS CORONAVIRUS+SA RS CORONAVIRUS 2 AG:PRTHR:PT:RE SPIRATORY SYSTEM SPECIMEN:ORD:I A.RAPID Not Detected Normal Not Detected Result Comment: The [employer] or??? System for Rapid Detection of SARS-CoV-2 is [...] the authorization is terminated or revoked sooner. LAB CD:[id number]( LOINC) Rapid COV Int POS Ctl Pass Normal LAB CD:[id number]( LOINC) Rapid COV Int NEG Ctl Pass Normal Performed By: #### [id number] #### [facility] [address] [place] [address] ED NOTE-PHYSICIAN Observed: 04/18/2024 11:51 AM Status: F Source: [facility] ED Note-Physician Basic Information Time Seen: Gasper REYNOSO, Mark Sánchez. 04/18/2024 11:40 Chief Complaint cold for 1 [...] and Complexity of Problems Differential Diagnosis: [] [facility] Data External documents reviewed: [] My [...] moving forward. Mark Fitzpatrick PA-C had a wmhh-rw-zhfx interaction with the patient. I personally performed [...] day(s), # 28 cap(s), Refills(s) 0, Pharmacy: [facility]/pharmacy #[id number], 165, cm, 04/18/24 11:46:00 EST, Height/Length Dosing, 124.5, kg, 04/18/24 11:46:00 EST, Weight Dosing Influenza A&B Ag Rapid COVID Antigen ([facility]) Disposition Plan Patient Discharge Condition stable Discharge Disposition to home Discharge Prescription List Prescriptions amoxicillin 500 mg Cap, 1000 mg= 2 cap(s), Oral, q12hr Ventolin HFA 90 mcg/inh Aerosol-Adpt, 1 puff(s), Inhalation, q6hr, PRN Follow-up With When Contact Information REY ALAS In 3 days 04/21/2024 [place] [address] [place] [address]- Business (1) Additional Instructions: Call Dr for diagnosis based follow up Patient Education Community-Acquired Pneumonia, Adult, Elti-oi-Wxgf Attestation Patient seen and evaluated by the physician dietitian assistant. Attending physician was present in the emergency department and supervised care. This visit was performed by both the physician and an APC. I performed all aspects of the MDM as documented. This report was transcribed using voice recognition software. Every effort was made to ensure accuracy, however, inadvertently computerized wrecking mechanic mistakes may be present. Appropriate healthcare PPE was used in evaluating this patient. The patient was placed in a mask. The healthcare provider was wearing mask, gloves, and utilizing proper hand hygiene. All equipment was properly cleansed. I performed a substantive part of the MDM during the patient???s E/M visit. I personally made or approved the documented management plan and acknowledge its risk of complications. (Independent Interpretation) My (EKG/X-Ray/US/CT as applicable) interpretation as above. (Discussion) Management/test interpretation discussed with APC. Problem List/Past Medical History Ongoing asthma Bilateral [...] cancer: Mother. Diabetes mellitus type 2: Mother. Lab Results Influenzae A Ag: NEGATIVE1 (04/18/24 12:06:00) Influenzae B Ag: NEGATIVE1 (04/18/24 12:06:00) Rapid COVID Ag: Not Detected (04/18/24 12:06:00) Rapid COV Int NEG Ctl: Pass (04/18/24 12:06:00) Rapid COV Int POS Ctl: Pass (04/18/24 12:06:00) Diagnostic Results No qualifying data available. Result Comment: Electronical ly Signed By: Alva Jo M.D.\.br\Date and Time Signed: 04/18/24 18:02 EST\.br\Electronically Co-Signed By: Gasper REYNOSOMark\.br\Date and Time Co-Signed: 04/18/24 16:19 EST MRI BRAIN W/ + W/O CONTRAST Observed: 2:06 PM Status: F Source: [facility] Exam Date/Time: 10/19/2023 15:10 EDT Reason for [...] Comments Vue[employer] Contrast amount in ml's: 10 [facility] MEDICINE OFFICE/CLINI C NOTE Observed: 10/10/2023 11:32 AM Status: F Source: [facility] Family Medicine Office/Clini c Note HPI Staff Headaches: Time of Onset: [...] out as well History of Present Illness Dorian is a 28 year old female who [...] Melanocytic nevi, unspecified) Referral to derm. Ordered: [facility] External Ambulatory Referral 2. Migraine (G43.909: Migraine, [...] Daily, # 30 tab(s), Refills(s) 3, Pharmacy: [facility]/pharmacy #[id number], 165.1, cm, 07/08/23 12:52:00 EDT, Height/Length [...] vaccine, inactivated - Not Given Patient Refuses diphtheria/pertussis, acel/tetanus adult 09/13/2021 Recorded SARS-CoV-2 (COVID-19) mRNA-1273 vaccine 10/09/2020 Recorded 2023-01-14: TPVAL diphtheria/pertussis, acel/tetanus adult 09/29/2020 Given (L) deltoid influenza virus vaccine, inactivated 11/26/2011 Recorded influenza virus vaccine, inactivated 02/12/2004 Recorded influenza virus vaccine, inactivated 03/01/2003 Recorded varicella virus vaccine 12/17/1996 Recorded haemophilus b conjugate (PRP-T) vaccine 10/19/1995 Recorded DTaP, unspecified formulation 10/19/1995 Recorded measles/mumps/rubella virus vaccine 06/21/1995 Recorded hepatitis B pediatric vaccine 03/09/1995 Recorded poliovirus vaccine, inactivated 1994 Recorded haemophilus b conjugate (PRP-T) vaccine 1994 Recorded DTaP, unspecified formulation 1994 Recorded poliovirus vaccine, inactivated 1994 Recorded hepatitis B pediatric vaccine 1994 Recorded haemophilus b conjugate (PRP-T) vaccine 1994 Recorded DTaP, unspecified formulation 1994 Recorded poliovirus vaccine, inactivated 1994 Recorded hepatitis B pediatric vaccine 1994 Recorded haemophilus b conjugate (PRP-T) vaccine 1994 Recorded DTaP, unspecified formulation 1994 Recorded Result Comment: Electronical ly Signed By: JOAQUÍN RODRIGUEZ\.br\Date and Time Signed: 10/10/23 11:33 EDT AMBULATORY VISIT SUMMARY Observed: 10/09 10:58 AM Status: F Source: [facility] Ambulatory Visit Summary DEQUAN RICHMONDH Princess :1995 Visit Date:10/10/2023 Ambulatory Visit Instructions Your [...] 2:00 PM EDT With: JOAQUÍN RODRIGUEZ Where: [facility] [place] [address] [place] [address]- You Need to Complete the Following MRI Brain w/ + w/o Contrast, 10/10/23, Routine, Order for Future Visit, Transport Mode: Ambulatory, Reason: Headache, No, No, Intractable migraine with aura Complicated migraine, pp_set_radiology_subspecialty, [facility] Someone Will Contact You Regarding These Appointments [facility] External Ambulatory Referral, Dermatology, [facility], [place], 10/10/23 10:54:00 EDT, [facility] Medications What How [...] you for choosing us for your care. ALLERGIES DATE TYPE / CODE NAME / CODE REACTION SEVERITY SOURCE /[id number](SNOMED CT) No Known Allergies [facility] ENCOUNTERS ADMIT/DISCHARGE ACCOUNT NUMBER ADMITTING ENCOUNTER CLASS LOCATION SOURCE 08/20/2024/08/21/19 [id number] Ambulatory Building:NO [place] BCP OB [facility] EPIC 08/15/2024 [id number] Ambulatory Building:Un known [facility] 08/01/2024 [id number] Ambulatory Building:Un known [facility] 07/23/2024/07/24/19 25 [id number] Ambulatory Building:NO [place] BCP OB [facility] EPIC 07/23/2024/07/24/19 25 [id number] Ambulatory Building:NO [place] BCP OB [facility] EPIC 06/18/2024/06/19/19 25 [id number] Ambulatory Building:NO [place] BCP OB [facility] EPIC 05/18/2024/05/19/19 25 [id number] Ambulatory Building:NO [place] BCP OB [facility] EPIC 05/18/2024/05/19/19 25 [id number] Ambulatory Building:NO [place] BCP OB [facility] EPIC 04/27/2024/04/28/19 25 [id number] Ambulatory [facility] [place]: Exam 5 [facility] 04/25/2024 [id number] Ambulatory [facility] [place]FM [facility] 04/18/2024 [id number] Emergency [facility]:EDRoom: Ex-ABed: [facility] 04/18/2024/04/19/19 25 [id number] Emergency [facility]:EDRoom: Ex-ABed: [facility] 11/07/2023 [id number] Ambulatory [facility] [place]FM [facility] 10/19/2023/10/19/19 24 [id number] DAVINA ALAS Ambulatory [facility]:FT [facility] 10/10/2023/10/10/19 24 [id number] Ambulatory [facility] [place]FM [facility] PAYERS ENCOUNTER GUARANTOR PAYER SUBSCRIBER SOURCE 08/20/2024 DORIAN ANTONELLAOB: [address] [place] [address]75[address]Dij: () Primary Insurance:BCBSPolic y Number: [id number] ve Date:2021-04-14 JOSÉ MIGUEL MORAB: [id number] [address] [place] [address]80 [facility] EPIC 08/20/2024 Secondary Insurance:MED[place] Number: [id number] ve Date:2024-05-15 DORIAN MARICELNDOB: [id number] [address] [place] [address] 6[address]98 [facility] EPIC 08/15/2024 Doriangordon RodneyOB: [address] [place] [address] 96221Zsg: (HP) Primary Insurance:D Ethel Hassanuest [facility] 0223Policy Number: [id number] ve Date:[address], [place] [address]BO: Dorian ConnellynDOB: [id number] [address] [place] [address] 31673Nmq: (HP) [facility] 08/15/2024 Secondary Insurance:D Medicaid Wrap - FQHCPolicy Number: [id number] ve Date:[address] [place] [address]DY: Dorian MaricelnDOB: [id number] [address] [place] [address] 35278Rer: (HP) [facility] 08/01/2024 Dorian RomerocaseynDOB: [address] [place] [address] 45544Ozy: (HP) Primary Insurance:D Medicaid Primary FQHCPolicy Number: [id number] ve Date: Dorian RomeroIrvinOB: [id number] [address] [place] [address] 77692Pns: (HP) [facility] 07/23/2024 DORIAN ROMEROCASEYNDOB: [address] [place] [address] [phone]: () Primary Insurance:BCBSPolic y Number: [id number] ve Date:2021-04-14 JOSÉ MIGUEL KUMAR: [id number] [address] [place] [address] [facility] EPIC 07/23/2024 Secondary Insurance:[place]: [id number] ve Date:2024-05-15 DORIAN MARICELNDOB: [id number] [address] [place] [address] [facility] EPIC 07/23/2024 DORIAN RODNEYOB: [address] [place] [address] 19166Oho: (HP) Primary Insurance:BCBSPolic y Number: [id number] ve Date:2021-04-14 JOSÉ MIGUEL KUMAR: [id number] [address] [place] [id number] [place] [address] Medical [facility] 07/23/2024 Secondary Insurance:[place] Number: [id number] ve Date:2024-05-15 DORIAN ROMEROIRVINOB: [id number] [address] [place] [address] Medical [facility] 06/18/2024 DORIAN CONNELLYMESHAOB: [address] [place] [phone]: (HP) Primary Insurance:BCBSPolic y Number: [id number] ve Date:2021-04-14 JOSÉ MIGUEL KUMAR: [id number] [address] [place] [address] Medical [facility] 05/18/2024 DORIAN ROMEROIRVINOB: [address] [place], [place] [address]Tel: (HP) Primary Insurance:BCBSPolic y Number: [id number] ve Date:2021-04-14 JOSÉ MIGUEL KUMAR: [id number] [address] [place] [address] Medical [facility] 05/18/2024 DORIAN ROMEROIRVINOB: [address] [place], [place] [address]Tel: (HP) Primary Insurance:BCBSPolic y Number: [id number] ve Date:2021-04-14 JOSÉ MIGUEL KUMAR: [id number] [address] [place] [address] Medical [facility] 04/27/2024 DORIAN [place]: [facility]: [phone] (HP) Primary Insurance:AnthemPol icy Number: [id number] ve Date:1143-37-09[place], [place] [address]HR: JOSÉ MIGUEL [facility] 04/25/2024 DORIAN Sánchez ANTONELLAOB: [address]Tel: [phone] (HP) Primary Insurance:AnthemPol icy Number: [id number] ve Date:7477-10-94KW [address] [address]IU: JOSÉ MIGUEL N [facility] 04/18/2024 ODRIAN Sánchez ANTONELLAOB: [address]Tel: [phone] (HP) Primary Insurance:AnthemPol icy Number: [id number] ve Date:9677-51-98YS [address], [place] [address]CP: JOSÉ MIGUEL N [facility] 04/18/2024 DORIAN RODNEYOB: [address]Tel: [phone] (HP) Primary Insurance:AnthemPol icy Number: [id number] ve Date:1939-48-03[address], [place] [address]QC: JOSÉ MIGUEL N [facility] 11/07/2023 DORIAN Sánchez ANTONELLAOB: [address]Tel: [phone] (HP) Primary Insurance:AnthemPol icy Number: [id number] ve Date:0895-71-99MB [address], [place] [address]HY: JOSÉ MIGUEL N [facility] 10/19/2023 DORIAN J ANTONELLAOB: [address]Tel: [phone] (HP) Primary Insurance:AnthemPol icy Number: [id number] ve Date:9413-12-01[address] [place] [place] [address]TD: JOSÉ MIGUEL N [facility] 10/10/2023 DORIAN Princess [place]: [facility] STTel: [phone] (WU) Primary Insurance:AnthemPol icy Number: [id number] ve Date:8696-23-44JW [address], [place] [address]RS: JOSÉ MIGUEL [facility]
--- OUTSIDE RECORDS SUMMARY | 2024-08-20 19:50 | XMS_ITS | Encounter Summary ---
Author Organization [facility] Address [address] [facility] [place] [address] Care Team Providers Care Clipper And Turner Name Role Phone Unavailable Primary Care Provider Unavailabl e Encounter Details Date Type Department Care Team (Late st Contact Info) Description 08/20/2024 Bamboo flowsheet [facility] [address] [facility] [place] [address] Zack Ortiz, [address] [place] [place] [address] Social History Tobacco Use Types Packs/Day Years [...] AM EDT documented as of this encounter Plan of Treatment Upcoming Encounters Date Type Department Care Team (Late st Contact Info) Description 08/29/2024 1:00 PM EDT Ancillary Procedure [facility] [address] [place] [address] 09/17/2024 1:30 PM EDT Routine [facility] [address] [facility] [place] [address] Gwen Mccomrick PA [facility] [place] [address] documented as of this encounter Visit Diagnoses Not on filedocumented in this encounter
--- OUTSIDE RECORDS SUMMARY | 2024-08-20 19:50 | XMS_ITS | Encounter Summary ---
Author Organization [facility] Address [address] [facility] [address] [place] [address] Care Team Providers Care Crop Specialist Name Role Phone Unavailable Primary Care Provider Unavailabl e Encounter Details Date Type Department Care Team (Late st Contact Info) Description 05/31/2024 Abstract [facility] OB [address] [facility] [address] Zack Ortiz [address] [place], [facility]11 Social History Tobacco Use Types Packs/Day Years [...] 08/29/2024 1:00 PM EDT Ancillary Procedure [facility] [place] [address] [place] [address] 09/17/2024 1:30 PM EDT Routine [facility] OB [address] [place], [place] [address] [address] Gwen Mccormick PA [facility] [place] [address] documented as of this encounter Visit Diagnoses Not on filedocumented in this encounter
--- OUTSIDE RECORDS SUMMARY | 2024-08-20 19:50 | XMS_ITS | Encounter Summary ---
Author Organization [facility] Address [address] [place] [address] [place] [address] Care Team Providers Care Internet Ecommerce Specialist Name Role Phone Unavailable Primary Care Provider Unavailabl e Encounter Details Date Type Department Care Team (Late st Contact Info) Description 05/31/2024 Abstract [facility] OB [address] [facility] [place] [address] Zack Ortiz [address] [place]án, [facility]11 Social History Tobacco Use Types Packs/Day Years [...] 08/29/2024 1:00 PM EDT Ancillary Procedure [facility] [place] [address] [place] [address] 09/17/2024 1:30 PM EDT Routine [facility] OB [address] [place], [place] [address] [address] Gwen Mccormick PA [facility] [place] [address] documented as of this encounter Visit Diagnoses Not on filedocumented in this encounter
--- OUTSIDE RECORDS SUMMARY | 2024-08-20 19:50 | XMS_ITS | Patient Health Record ---
Author Organization [facility] Address [address] [address] Care Team Providers Care Counter Person Name Role Phone Maliha Matos Primary Care Provider Reason For Referral No Information Plan Of Treatment No Information Insurance Providers Payer Name Payer Address Payer Phone Subscriber Number Group Number Insured Name Patient Relationship to Insured Coverage Start Date Coverage End Date ANTHEM Primary [address] [place] [address] [phone] [id number] JOSÉ MIGUEL KOLB Spouse - patient is the spouse of the insured 3
[2024-08-23 15:08] LABS: Age Gdln ACOG Testing Note (.); IGP, Aptima HPV, rfx 16/18,45 Note (.)
== END 2024-08-20 19:45 | disposition home or self-care (01) ==
LOC: LAB 19:44
PROVIDERS: Visit Provider Obstetrics & Gynecology
DX: Z01.419 Encounter for gynecological examination (general) (routine) without abnormal findings (principal)
CPT/HCPCS: 87624; 88175

== ENCOUNTER 2024-10-03 15:21 | Observation (INO) | payer BC, OTHER, SELFPAY ==
[2024-10-03] VITALS (7 sets, daily range): BP systolic 140–179; BP diastolic 76–106; PULSE 63–77; TEMP 36
--- OUTSIDE RECORDS SUMMARY | 2024-10-03 14:00 | XMS_ITS | Encounter Summary ---
Author Organization [facility] Address [address] [place] [address] Care Team Providers Care Security Delivery Specialist Name Role Phone Unavailable Primary Care Provider Unavailabl e Encounter Details Date Type Department Care Team (Latest Contact Info) Description 10/03/2024 2:00 PM EDT Ancillary Procedure GREG MANZANO [address] [place] [address] Size of fetus inconsistent with dates in second trimester ([facility]) Social History Tobacco Use Types [...] Info) Description 10/17/2024 1:30 PM EDT Routine [facility]OM[facility] MANZANO [address] [place] [address] Zack Ortiz DO [address], [place] [id number] Pending Results Name Type Priority Associated Diagnoses Date /Time US OB follow up transabdominal approach Imaging Routine Size of fetus inconsistent with dates in second trimester ([facility]) 10/03/2024 2:16 PM EDT documented as of this encounter Visit Diagnoses Diagnosis Size of fetus inconsistent with dates in second trimester ([facility]) documented in this encounter
--- OUTSIDE RECORDS SUMMARY | 2024-10-03 14:20 | XMS_ITS | Encounter Summary ---
Author Organization [facility] Address [address] [place] [address] Care Team Providers Care Intake Worker Name Role Phone Unavailable Primary Care Provider Unavailabl e Reason for Visit * Reason Comments Weight Management Encounter Details Date Type Department Care Team (Late st Contact Info) Description 10/03/2024 2:20 PM EDT Routine GREG Durán OBGYN [address] [place] [address] Zack rOtiz DO [address] [facility] [place] [place]án, [facility]11 Third trimester ([facility]); Diet controlled gestational diabetes mellitus (GDM), antepartum ([facility]); Gestational diabetes mellitus (GDM), antepartum, gestational diabetes method of control unspecified ([facility]) Social History Tobacco Use Types Packs/Day Years [...] 12:00 PM EDT documented in this encounter Plan of Treatment Upcoming Encounters Date Type Department Care Team (Late st Contact Info) Description 10/17/2024 1:30 PM EDT Routine [facility] Luis Armando OBGYN [address] [place] [address] Zack Ortiz DO [address] [place] [address] Scheduled Orders Name Type Priority Associated Diagnoses Orde r Schedule US biophysical profile w non stress test Imaging Routine Gestational diabetes mellitus (GDM), antepartum, gestational diabetes method of control unspecified ([facility]) Expected: 10/03/2024 (Approximate), Expires: 04/05/2025 documented as of this encounter Procedures Procedure Name Priority Date/Time Associated Diagnosis Comments POCT URINALYSIS DIPSTICK Routine 10/03/2024 2:28 PM EDT Third trimester ([facility]) documented in this encounter Results * (ABNORMAL) [...]
--- OUTSIDE RECORDS SUMMARY | 2024-10-03 15:27 | XMS_ITS | Encounter Summary ---
Author Organization [facility] Address [address] [place] [address] Care Team Providers Care Electronics Engineer Name Role Phone Unavailable Primary Care Provider Unavailabl e Encounter Details Date Type Department Care Team (Late Contact Info) Description 08/28/2024 Orders Only [facility] Luis Armando MANZANO [address] [place] [phone] Berta Yoder RI [address] [place] [address] Social History Tobacco Use Types Packs/Day Years [...] EDT Routine [facility] Luis Armando MANZANO [address] [place] [address] Zack Ortiz DO [address] [place], [place] [id number] documented as of this encounter Procedures Procedure Name Priority Date/Time Associated Diagnosis Comments PAP SMEAR Routine 08/20/2024 12:00 AM EDT documented in this encounter Results * Pap Smear (08/20/2024 12:00 AM EDT) Swab Cervical swab / Unknown us Zack Ortiz DO LAB CYTOLOGY ORDERABLES Final Re sult EXTERNAL LAB documented in this encounter Visit Diagnoses Not on filedocumented in this encounter
--- OUTSIDE RECORDS SUMMARY | 2024-10-03 15:27 | XMS_ITS ---
Author Organization [facility] (ClinicalSummary Clone) Address Unknown Care Team Providers Care Cork Floor Installer Name Role Phone Unavailable Primary Care Physician Unavailab le Results * [[facility]] ANEUPLOIDY NIPT Performed by: [employer] Component Value Range Date Fraction 3.7% 05/31/2024 05 :29 am UT Rh(D) NIPT RhD DETECTED 05/31/2024 05:2 9 am UT Sex Chromosome Aneuploidy NOT DETECTED 05:29 am UT Monosomy X LOW RISK <1 in 10,000 2024 05:29 am UT Trisomy 13 LOW RISK <1 in 10,000 2024 05:29 am UT Trisomy 18 LOW RISK <1 in 10,000 2024 05:29 am UT Trisomy 21 LOW RISK <1 in 10,000 2024 05:29 am UT Sex FEMALE 05/31/2024 05:2 9 am UTC Gestation LAROSE 06/01/19 05:29 am UT For detailed report, see PDF See PDF 05/31/2024 05:29 am UTC 05/31/2024 05:2 9 am [facility] Social History Observation Value Start Date End Date
--- OUTSIDE RECORDS SUMMARY | 2024-10-03 15:27 | XMS_ITS | Patient Health Record ---
Author Organization [facility] Address [address] [address] Care Team Providers Care Luncheonette Operator Name Role Phone Maliha Matos Primary Care Provider Reason For Referral No Information Plan Of Treatment No Information Insurance Providers Payer Name Payer Address Payer Phone Subscriber Number Group Number Insured Name Patient Relationship to Insured Coverage Start Date Coverage End Date ANTHEM Primary [address] [place] [address] [phone] [id number] JOSÉ MIGUEL KOLB Spouse - patient is the spouse of the insured 3
--- OUTSIDE RECORDS SUMMARY | 2024-10-03 15:27 | XMS_ITS | Encounter Summary ---
Author Organization [facility] Address [address] [place] [address] Care Team Providers Care Product Safety Coordinator Name Role Phone Unavailable Primary Care Provider Unavailabl e Encounter Details Date Type Department Care Team (Late st Contact Info) Description 10/03/2024 Telephone [facility] Luis Armando MANZANO [facility] [place] [address] Jane Lang LPN Social History Tobacco Use Types Packs/Day Years [...] AM EDT documented as of this encounter Miscellaneous Notes * Telephone Encounter - Jane Lang LPN - 10/03/2024 3:02 PM EDT Please refer to [facility] for diabetic management and insulin prescription documented in this encounter Plan of Treatment Upcoming Encounters Date Type Department Care Team (Late Contact Info) Description 10/17/2024 1:30 PM EDT Routine [facility] MANZ[facility]O [facility] [place] [address] Angel, Zack, [address] [place] [address] documented as of this encounter Visit Diagnoses Not on filedocumented in this encounter
--- OUTSIDE RECORDS SUMMARY | 2024-10-03 15:27 | XMS_ITS | Encounter Summary ---
Author Organization [facility] Address [address] [place] [address] Care Team Providers Care Carbon Paper Coating Machine Setter Name Role Phone Unavailable Primary Care Provider Unavailabl e Encounter Details Date Type Department Care Team (Late Contact Info) Description 05/31/2024 Abstract GREG MANZANO [facility] [place] [address] Zack Ortiz DO [facility] [address], [facility]11 Social History Tobacco Use Types Packs/Day Years [...] Info) Description 10/17/2024 1:30 PM EDT Routine GREG MANZANO [facility] [place] [address] Zack Ortiz DO [address] [place] [address] documented as of this encounter Visit Diagnoses Not on filedocumented in this encounter
--- OUTSIDE RECORDS SUMMARY | 2024-10-03 15:27 | XMS_ITS | Encounter Summary ---
Author Organization [facility] Address [address] [place] [address] Care Team Providers Care Judicial Clerk Name Role Phone Unavailable Primary Care Provider Unavailabl e Encounter Details Date Type Department Care Team (Late Contact Info) Description 05/31/2024 Abstract GREG MANZANO [facility] [place] [address] Zack Ortiz DO [facility] [address], [facility]11 Social History Tobacco Use Types Packs/Day [...] 10/17/2024 1:30 PM EDT Routine GREG MANZANO [facility] [place] [address] Zack Ortiz DO [address] [place] [address] documented as of this encounter Visit Diagnoses Not on filedocumented in this encounter
--- NOTE | 2024-10-03 15:39 | US_ITS ---
[place] [id number] Patient Name: DORIAN RICHMOND MRN: [id number] date: 1995 Sex: F Assigned Patient Location: [facility] Current Patient Location: [facility] Accession/Order Number: [id number] Exam Date: 10/03/2024 17:45 Report Date: 10/03/2024 17:46 At the request of: LUCÍA LEDESMA DO Procedure: US OB BPP w non-stress Ultrasound biophysical profile HISTORY: Elevated blood pressure Adequate breathing movement, gross body movement, tone and amniotic fluid volume for total score of 8 out of 8. The amniotic fluid index is 17.1cm within normal limits. The heart rate 131 bpm. US/US OB BPP w non-stress IMPRESSION: Adequate ultrasound biophysical profile Impression dictated by: Robi Tan M.D. 10/03/2024 5:46 PM Dictation Location: [place] [address] Electronically authenticated by: [id number] Y Date: 10/03/2024 17:46
[2024-10-03 16:29] LABS: Alanine Aminotransferase 14 U/L (14-59); Aspartate Amino Transferase 13 U/L (15-37); Blood Urea Nitrogen 10.0 mg/dL (7.0-18.0); Estimated GFR (African America >60 (>=60 mL/min/1.73m^2); Estimated GFR (Non-African Ame >60 (>=60 mL/min/1.73m^2); Uric Acid 5.3 mg/dL (2.6-6.0)
--- NOTE | 2024-10-03 16:31 | PC.NURSE ---
[address] Ortiz's office, message left. 1630 Dr Ortiz calls and updated, pt to started labetalol and spend night.
[2024-10-03 16:41] LABS: Hematocrit 36.6 % (36.0-48.0); Hemoglobin 12.5 g/dL (12.0-16.0); Immature Granulocytes Abs Auto 0.07 10^3/uL (0.00-0.03); Immature Granulocytes Pct Auto 0.5 % (0.0-0.5); Lymphocytes Absolute Auto 2.0 10^3/uL (1.2-3.8); Mean Corpuscular HGB Conc 34.2 g/dL (29.9-35.2); Mean Corpuscular Hemoglobin 27.8 pg (26.7-34.0); Mean Corpuscular Volume 81.5 fL (81.0-99.0); Platelet Count 280 10^3/uL (150-450); Red Blood Count 4.49 10^6/uL (4.20-5.40); White Blood Count 15.2 10^3/uL (4.0-11.0)
[2024-10-03] MEDS: LABETALOL HCL 100 MG TABLET 200 MG PO ×2 (16:49→23:19)
[2024-10-03 16:53] LABS: INR 0.95; Partial Thromboplastin Time 26.1 sec (22.3-36.2); Prothrombin Time 10.1 sec (9.0-11.6)
[2024-10-03 17:50] LABS: Protein Creatinine Ratio Urine 0.47; Total Protein Urine Random 28.5 mg/dL (<=11.9)
[2024-10-03 17:59] LABS: Fibrinogen 632 mg/dL (200-400)
--- NOTE | 2024-10-03 19:34 | PC.NURSE ---
[address] johnson's office with message left of two blood pressures, to return call
--- NOTE | 2024-10-03 19:35 | PC.NURSE ---
4620 dr johnson returns call and orders labetalol tid, biophysical ongoing and pt given first dose of labetalol
[2024-10-04] VITALS (24 sets, daily range): BP systolic 141–173; BP diastolic 77–97; PULSE 76–90; TEMP 35.8–36.6
[2024-10-04] MEDS: LABETALOL HCL 100 MG TABLET 200 MG PO (06:19)
--- NOTE | 2024-10-04 08:31 | PM.OBHP ---
OB - H&P: HPI History of Present Illness Chief complaint: BLOOD PRESSURE : 2 Para: 1 Gestational age based on last menstrual period: 30 5/7wks Narrative: 28 yo presented to office with elevated bp, 140's-160's/90's-100's, pt had no complaints of headaches, visual changes, or epigastric pain, denies urinary symptoms, positive fm, denies lof, vb, ctxns, growth us reviewed, bpp was 8/8, labs reviewed, slightly elevated creatinine level for , protein cr ratio 0.4 History of Present Dating criteria: LMP confirmed by 1st trimester US care: good care Ultrasounds: normal 1st trimester US and normal mid trimester US complications: preeclampsia Medical complications OB: none Labs Blood type: A (+) positive Rubella: immune RPR/VDLR: nonreactive HBsAG: negative Review of Systems ROS Status of ROS: 10 or more systems reviewed and unremarkable except as noted in history and below Meds Home Medications and Allergies Allergies Allergy/AdvReac Type Severity Reaction Status Date / Time No Known Drug Allergies Allergy Verified 10/03/24 19:14 Exam Constitutional Vital Signs, click to edit/add: Last Vital Signs Temp 96.8 F L 10/03/24 23:20 Pulse 76 10/04/24 06:19 BP 146/95 H 10/04/24 06:19 Documenting provider has reviewed patient's vital signs: yes Common normals: no apparent distress Cardio Common normals: regular rate and regular rhythm GI Common normals: Normal to inspection, nondistended, normoactive bowel sounds present Extremity Common normals: no clubbing, cyanosis or edema and no calf tenderness Results Labs Labs: Short CBC 10/03/24 Range/Units 15:51 WBC 15.2 H (4.0-11.0) 10^3/uL Hgb 12.5 (12.0-16.0) g/dL Hct 36.6 (36.0-48.0) % Plt Count 280 (150-450) 10^3/uL BMP 10/03/24 15:51 BUN 10.0 Creatinine 0.84 Liver Function 10/03/24 Range/Units 15:51 AST 13 L (15-37) U/L ALT 14 (14-59) U/L OB - A/P Assessment and Plan (1) Intrauterine : (2) Preeclampsia: Assessment and Plan: repeat labs, awaiting 24hr protein, cont to monitor pt, nst q4hrs, pressures where labial throught the night
[2024-10-04 09:07] LABS: Hematocrit 35.8 % (36.0-48.0); Hemoglobin 12.3 g/dL (12.0-16.0); Immature Granulocytes Abs Auto 0.05 10^3/uL (0.00-0.03); Immature Granulocytes Pct Auto 0.4 % (0.0-0.5); Lymphocytes Absolute Auto 2.6 10^3/uL (1.2-3.8); Mean Corpuscular HGB Conc 34.4 g/dL (29.9-35.2); Mean Corpuscular Hemoglobin 28.1 pg (26.7-34.0); Mean Corpuscular Volume 81.7 fL (81.0-99.0); Platelet Count 265 10^3/uL (150-450); Red Blood Count 4.38 10^6/uL (4.20-5.40); White Blood Count 12.5 10^3/uL (4.0-11.0)
[2024-10-04] MEDS: 0.9 % SODIUM CHLORIDE 1,000 ML 75 ML IV (09:07)
[2024-10-04] MEDS: MAGNESIUM-BOLUS FROM THE BAG- 40 GM/1,000 ML IV.SOLN IV (09:08)
[2024-10-04] MEDS: BETAMETHASONE ACE/BETAMETHASONE SOD PHOS 30 MG/5 ML 12 MG IM (09:11)
[2024-10-04] MEDS: MAGNESIUM SULFATE IN WATER 40 GM/1,000 ML IV.SOLN IV (09:29)
[2024-10-04 09:32] LABS: Alanine Aminotransferase 14 U/L (14-59); Aspartate Amino Transferase 14 U/L (15-37); Blood Urea Nitrogen 6.0 mg/dL (7.0-18.0); Estimated GFR (African America >60 (>=60 mL/min/1.73m^2); Estimated GFR (Non-African Ame >60 (>=60 mL/min/1.73m^2); Uric Acid 5.4 mg/dL (2.6-6.0)
[2024-10-04 09:34] LABS: INR 0.97; Partial Thromboplastin Time 26.8 sec (22.3-36.2); Prothrombin Time 10.3 sec (9.0-11.6)
[2024-10-04 09:53] LABS: Fibrinogen 575 mg/dL (200-400)
[2024-10-04] MEDS: LABETALOL HCL 20 MG/4 ML SYRINGE IVP (09:53)
[2024-10-04] MEDS: LABETALOL HCL 20 MG/4 ML SYRINGE 40 MG IVP (10:16)
== END 2024-10-04 10:55 | disposition short-term general hospital (02) ==
PROVIDERS: Admitting Provider Obstetrics & Gynecology; Visit Provider Obstetrics & Gynecology
DX: O14.93 Unspecified pre-eclampsia, third trimester (principal); Z3A.30 30 weeks gestation of pregnancy
CPT/HCPCS: 36415; 76818; 82565; 82570; 83615; 84156; 84450; 84460; 84520; 84550; 85025; 85384; 85610; 85730; 96365; 96372; 96375; 96376; G0378; G0379; J0702; J1920; J3475

== ENCOUNTER 2024-10-10 13:57 | Outpatient (OUT) | payer BC, OTHER, SELFPAY ==
--- OUTSIDE RECORDS SUMMARY | 2024-08-21 05:03 | XMS_ITS | Continuity of Care Document ---
Author Organization [facility] Address [address] [place] [address] Phone Care Team Providers Care Stitcher Special Machine Name Role Phone Bishnu Virk DDS Unavailable [...] Procedure Date Nutrit Couns For Control Of [place] Dis Aug Extract; Erupted Th/exposted Rt 025 Oral Hygiene Instruction Panoramic Film Bitewings-three Films Oral Hygiene Instruction Comp Oral Eval New/estab Patient 2024 Intraoral-periapical 1st Film [id number]-svwewixare-[id number] Additional Jul Bitewig-single Film Oral Hygiene Instruction Limited Oral Eval Extract; Erupted Th/exposted Rt 025 Advance Directives Directive Yes / No Effective Date File Name No Information Encounters Encounter Description Practice Location Reason(s) For Visit Diagnoses Date Provider Providers Copied on Encounter [facility], [address] [place], [place], [id number], [place] tel:[phone] [facility] Clinic ext (chief complaint) Encounter for screening for dental disorders Moose JAIMES Yixue. [address] [place] [address], [address], [place]. tel:[phone] [facility], [address] [place], [place], [id number], [place] tel:[phone] Dental Clinic DL (chief complaint) Encounter for screening for dental disorders Moose JAIMES Yixjono. [address] [place], [address], . tel:[phone] [facility], [address] [place], [place], [id number], [place] tel:[phone] [facility] Clinic Dental ER (chief complaint) Encounter for screening for dental disorders Moose TREJOS Yixjono. [address] [place], [address], [place]. tel:[phone] Family History Family Member Type Diagnosis Age At Onset No Information Payers Payer name Insurance type Covered alliance party ID Authoriza tion(s) D [employer] [facility] [id number] D Medicaid [facility] [id number] Social History Type Description Quantity Date Captured [...]
--- OUTSIDE RECORDS SUMMARY | 2024-10-03 14:00 | XMS_ITS | Encounter Summary ---
Author Organization [facility] Address [address] [place] [address] Care Team Providers Care Veneer Taping Machine Operator Name Role Phone Unavailable Primary Care Provider Unavailabl e Encounter Details Date Type Department Care Team (Latest Contact Info) Description 10/03/2024 2:00 PM EDT Ancillary Procedure [facility] Luis Armando MANZANO [address] [place] [address] Size of fetus inconsistent with dates in second trimester ([facility]) Social History Tobacco Use Types Packs/Day Years [...] Routine [facility] Luis Armando MANZANO [address] [place] [address] Zack Ortiz DO [address], [place] [id number] documented as of this encounter Procedures Procedure Name Priority Date/Time Associated Diagnosis Comments US OB FOLLOW UP TRANSABDOMINAL APPROACH Routine 10/03/2024 2:16 PM EDT Size of fetus inconsistent with dates in second trimester ([facility]) documented in this encounter Results * US [...] II, MD, PHD at 04-Oct-2024 08:06:58 AM [facility] Procedure Note Una Webber MD - [...] signed by UNA WEBBER II, MD, PHD [id number] 08:06:58 AM [facility] us Gwen SAAVEDRA IMG OB US PROCEDURES Final Resul t documented in this encounter Visit Diagnoses Diagnosis Size of fetus inconsistent with dates in second trimester ([facility]) documented in this encounter
--- OUTSIDE RECORDS SUMMARY | 2024-10-03 14:20 | XMS_ITS | Encounter Summary ---
Author Organization [facility] Address [address] [place] [address] Care Team Providers Care Administrative Fellow Name Role Phone Unavailable Primary Care Provider Unavailabl e Reason for Visit * Reason Comments Weight Management Encounter Details Date Type Department Care Team (Late st Contact Info) Description 10/03/2024 2:20 PM EDT Routine GREG Durán OBGYN [address] [facility] [facility] [address] Zack Ortiz DO [address] [place], [facility]11 Third trimester ([facility]); Diet controlled gestational diabetes mellitus (GDM), antepartum ([facility]); Gestational diabetes mellitus (GDM), antepartum, gestational diabetes method of control unspecified ([facility]) Social History Tobacco Use Types Packs/Day Years [...] Sign Reading Time Taken Comments Blood Pressure 154/100 10/03/2024 2:26 PM EDT Pulse - - Temperature - - Respiratory Rate - - Oxygen Saturation - - Inhaled Oxygen Concentration - - Weight 135 kg (297 lb) 10/03/2024 2:26 PM EDT Height - - Body Mass Index 50.98 10/28/2021 12:00 PM EDT documented in this encounter Progress Notes * Jane Lang, MAT - 10/03/2024 2:20 PM EDT Reason for Appointment: Patient ID: Sabrina Tovar is a 29 y.o. female who presents for Weight Management Patient presents today for Return OB appointment. MEDICATIONS Current Outpatient Medications Medication Instructions ALBUTEROL IN Alcohol Swabs (Alcohol Prep Pad) 70 % pads 1 Pad, Topical, Daily, Use four times daily to check FSBS. Blood Glucose Monitoring Suppl ([employer] Glucometer) w/Device kit 1 kit, Does not [...] No family history on file. SURGICAL HISTORY No past surgical history on file. REVIEW OF SYSTEMS Review of Systems: Review of Systems Constitutional: Negative. HENT: Negative. Eyes: Negative. Respiratory: Negative. Cardiovascular: Negative. Gastrointestinal: Negative. Genitourinary: Negative. Musculoskeletal: Negative. Skin: Negative. Neurological: Negative. All other systems reviewed and are negative. Hematological: Negative. Endocrine: Negative. Allergic/Immunologic: Negative. OBJECTIVE Objective: Physical Exam Constitutional: Appearance: Normal appearance. She is well-developed. Cardiovascular: Rate and Rhythm: Normal rate and regular rhythm. Pulmonary: Effort: Pulmonary effort is normal. Breath sounds: Normal breath sounds. Abdominal: General: Bowel sounds are normal. There is no distension. Palpations: Abdomen is soft. Tenderness: There is no abdominal tenderness. There is no guarding or rebound. Musculoskeletal: General: No swelling. Normal range of motion. Right lower leg: No edema. Left lower leg: No edema. Neurological: Mental Status: She is alert and oriented to person, place, and time. Skin: General: Skin is warm and dry. Psychiatric: Mood and Affect: Mood normal. Behavior: Behavior normal. Vitals and nursing note reviewed. Exam conducted with a behavioral health care coordinator present. Vitals: Estimated body mass index is 50.98 kg/m?? as calculated from the following: Height as of 10/28/22: 5' 4 . Weight as of this encounter: 297 lb. BP: (!) 154/100 No LMP recorded. Patient is . ASSESSMENT & PLAN ICD-10-CM 1. Third trimester ([facility]) Z34.93 POCT urinalysis dipstick manually resulted 2. Diet controlled gestational diabetes mellitus (GDM), antepartum ([facility]) O24.410 Return OB: Patient presents today for a routine obstetrics appointment. Patient is currently 30w6d . Patient states she is doing well but has complaints of being tired due to current . Patient has verbalizes frequent movement. labor precautions was discussed/given and patient was instructed to perform kick counts three times a day. Reviewed glucose log with pt in detail.Pt to be started on insulin. Pt to be referred to [facility] for diabetic ed and insulin prescription. Pt to start NST/BPP pt bp elevated, pt being sent to [facility] for obs. Orders Placed This Encounter Procedures POCT urinalysis dipstick manually resulted Follow Up: Patient is to return to office in 2 week for routine OB appointment. Documented by Jane Lang LPN on behalf of: Zack Ortiz DO documented in this encounter Plan of Treatment Upcoming Encounters Date Type Department Care Team (Late st Contact Info) Description 10/17/2024 1:30 PM EDT Routine [facility] Luis Armando OBGYN [address] [place] [address] Zack Ortiz DO [address] [place] [address] Scheduled Orders Name Type Priority Associated Diagnoses Orde r Schedule US biophysical profile w non stress test Imaging Routine Gestational diabetes mellitus (GDM), antepartum, gestational diabetes method of control unspecified ([facility]) Expected: 10/03/2024 (Approximate), Expires: 04/05/2025 documented as of this encounter Procedures Procedure Name Priority Date/Time Associated Diagnosis Comments POCT URINALYSIS DIPSTICK Routine 10/03/2024 2:28 PM EDT Third trimester ([facility]) documented in this encounter Results * (ABNORMAL) POCT urinalysis dipstick manually resulted (10/03/2024 2:28 PM EDT) Color, UA Yellow Clarity, UA Clear Glucose, UA Negative Negative - 2000(110) ++++ mg/dL Bilirubin, UA Negative Negative - 4(70) +++ mg/dL Ketones, UA Negative Negative - 160(16) ++++ mg/dL Spec Grav, UA 1.010 1 - 1.03 Blood, UA Negative Negative - 50 Yossi/mcL pH, UA 6.0 5 - 9 Protein, UA Negative Negative - 2000(20) ++++ mg/dL Urobilinogen, UA 0.2 0.2 - 12 mg/dL Leukocytes, UA Positive Negative - 500+++ Wild/mcL Comment:2+ Nitrite, UA Negative Negative - Positive Urine 10/03/2024 2:28 PM EDT Gwen SAAVEDRA POINT OF CARE TEST ENTER/EDIT OR DERABLES Final Result documented in this encounter Visit Diagnoses Diagnosis Third trimester ([facility]) state, incidental Diet controlled gestational diabetes mellitus (GDM), antepartum ([facility]) Gestational diabetes mellitus (GDM), antepartum, gestational diabetes method of control unspecified ([facility]) documented in this encounter
--- OUTSIDE RECORDS SUMMARY | 2024-10-04 12:23 | XMS_ITS | Encounter Summary ---
Author Organization [facility] Address [id number] [address] [place] [address] Care Team Providers Care Nutrition Services Associate Name Role Phone Unavailable Primary Care Provider Unavailabl e Reason for Visit * Reason Comments transported from [facility] for p reeclampsia with se * Auth/Cert (Routine) Specialty Diagnoses / Procedures Referred By Jesus lau Referred To Contact Diagnoses Preeclampsia Severe preeclampsia Binh Yung MD [address] [place] [address], [address] [address] Phone: tel: fax: Referral ID Status Reason Start Date Expiration Date Visits Re quested Visits Authorized [id number] 1 1 Encounter Details Date Type Department Care Team (Latest Contact Info) Description 10/04/2024 12:23 PM EDT - 10/05/2024 3:01 PM EDT Hospital Encounter [facility] - GEN 3 Antepartum [address] [place] [address] Binh Yung MD [address] [place] [address], [address] [place], [place] [id number] Discharge Disposition: Left Against Medical Advice or [...] 1 mg, 1 mg, intramuscular, PRN, Kay eLvi MD insulin lispro (HumaLOG) injection 2-16 Units, [...] 1,578g (23%), DVP 3.6cm Julio Briceno MD Net Lead Architect Resident, PGY-4 Cosigned by Aleena Mills MD [...] Aleena Mills MD, FACOG (she/hers) Maternal- Medicine [facility] [address] 1[address] [place] [address] This document was created with [employer] technology. Though I make every effort to review the dictation as it is transcribed, on occasion the spoken word can be misinterpreted by the technology leading to inappropriate words, phrases, or sentences. This note is addressed to the requesting provider as a consultation for clinical guidance. Specificmedical abbreviations are occasionally used and those are generally approved by the [place]?Board of?Obstetrics and?Gynecology?as well as?Antonia???s abbreviations. The above plan of care was based solely on the diagnoses for which a consultation was requested. ?More frequent testing may be indicated based on her other medical/obstetrical conditions. The management of other or medical conditions is beyond the scope of requested consultation and will c ontinue to be followed by the primary drill press tender or primary care provider. * Hermelinda Emanuel [...] 31w1d wks presents as a transfer from [facility] with severe features (BP) Overnight BPs non [...] changes made as necessary. Hermelinda Emanuel MD Net Lead Architect Resident PGY-3 10/05/24 7:26 AM Cosigned by [...] 31w0d who presents as a transfer from [place] with preeclampsia with severe features by blood [...] dose of ANCS. She was transported to [facility] for further management. Patient is tearful. [...] bpm, moderate variability, present acceleration, absent decelerations [place]: none ASSESSMENT & PLAN Sabrina Tovar is a 29 y.o. @ 31w0d who presents as a transport from [place] with preeclampsia with severe features by severe [...] Continue labetalol 200 mg TID, titrate as vidd9pe GDM - BS q4h while on CLD [...] changes made as necessary. Kay Levi MD Net Lead Architect Resident PGY-2 10/04/24 5:23 PM Cosigned by [...] complete steroid course Consultations included Maternal- medicine social worker palliative care and NICU team No indication for delivery [...] wks who presents as a transfer from [facility] with preeclampsia w/ SF (BP criteria). She reports she went to her routine visit yesterday, and had elevated BP so her provider sent her to [facility] for further evaluation. Her blood pressure remained elevated, and she was kept overnight. She had multiple severe range BPs for which she received 20/40mg IV labetalol, and was started on Labetalol 200mg PO TID. At [place], her UPCR was 0.47 and other HELLP labs were wnl. She was then given ANCS, started on 4g magnesium sulfate bolus, and transferred to [facility]. At bedside today, pt reports a [...] on insulin with a referral to see [facility] diabetes management. She denies any history of [...] 31w0d who presents as a transfer from [place] with Preeclampsia with SF. Preeclampsia with severe [...] changes made as necessary. Hermelinda Emanuel MD Net Lead Architect Resident PGY-3 10/04/24 2:49 PM Cosigned by [...] Aleena Mills MD, FACOG (she/hers) Maternal- Medicine [facility] [address] [facility] 1st [place] [address] This document was created with [employer] technology. Though I make every effort to review the dictation as it is transcribed, on occasion the spoken word can be misinterpreted by the technology leading to inappropriate words, phrases, or sentences. This note is addressed to the requesting provider as a consultation for clinical guidance. Specificmedical abbreviations are occasionally used and those are generally approved by the [place]?Board of?Obstetrics and?Gynecology?as well as?Antonia???s abbreviations. The above plan of care was based solely on the diagnoses for which a consultation was requested. ?More frequent testing may be indicated based on her other medical/obstetrical conditions. The management of other or medical conditions is beyond the scope of requested consultation and will c ontinue to be followed by the primary drill press tender or primary care provider. documented in this encounter Nursing Notes * Racheal Blanco RN - 10/05/2024 2:59 PM EDT Patient left AMA to home in stable condition. RN discussed with patient warning signs to come back to OB emergency. Questions and concerns answered. Patient ambulated off unit per self. * Estrella Vazquez RN - 10/04/2024 4:03 PM EDT Radha at [facility] updated on patients arrival, current status, and plan of care. documented in this encounter Miscellaneous Notes * Plan of Care - Betty Lassiter RN - 10/04/2024 8:28 PM EDT Problem: Pain Goal: Patient goal is pain score less than 4, able to rest, and participant in treatment plan as appropriate Description: INTERVENTIONS: 1. Encourage patient or legal hotel services sales representative to report early pain and ask [...] per policy 9. Teach patient or legal hotel services sales representative interventions for comforting Outcome: Progressing Note: [...] at the bedside 7. Instruct patient/ patient hotel services sales representative about use of safety devices 8. Include patient/ patient hotel services sales representative in decisions related to safety Outcome: [...] hygiene technique. 7. Identify and instruct patient/patient hotel services sales representative in use of appropriate isolation precautionsfor identified infection/symptoms. 8. Provide and discuss with patient/patient hotel services sales representative on educational MDRO sheet. 9. Encourage and monitor nutritional status daily and consult merit system director if indicated. 10. Implement neutropenic guidelines as needed. Outcome: Progressing Note: Evaluation of progress towards goal: Patient is free from signs and symptoms of infection. Problem: Knowledge Deficit Goal: Patient/patient hotel services sales representative demonstrates understanding of disease process, treatment [...] Score of =/> 25 or indicated by [facility] Assessment Goal: Patient should be free from fall Description: Interventions: 1. [place] to environment 2. Hourly rounds addressing the [...] non-skid footwear 11. Teach patient and patient hotel services sales representative to maintain environment for safety and [...] (cane, walker) within reach 19. Request patient hotel services sales representative bring adaptive equipment/mobility aids from home or obtain and provide as needed 20. Consult pharmacy regarding effects of med's affecting mobility, cognition, and alternatives 21. Obtain physician order for PT if risk factors associated with mobility are present 22. Obtain physician order for OT as appropriate 23. Utilize diversional activities 24. Educate patient and patient hotel services sales representative how to maintain a safe environment during visitationtimes (notify nurse prior to leaving bedside) 25. Consider appropriateness of medical or non-medical doctor 26. Set up voiding schedule as appropriate [...] PM EDT Support Visit Maternal- Medicine at [facility] [address] [place] [id number] Krista Cruz RN [address] [facility], [address] [place] [id number] Laura Weaver LD documented as of this [...] - 99 mg/dL 10/05/2024 12:00 PM EDT [facility] arterial/capilla ry 10/05/2024 11:55 AM EDT 10/05/2024 12:00 PM EDT us Binh Yung MD POINT OF CARE TEST ORDERABLES Final Result [facility] [address] [place] [address], [place] * Uric acid (10/05/2024 6:24 AM EDT) URIC ACID 6.4 2.6 - 7.2 mg/dL 10/05/2024 7:33 AM EDT [facility] Blood Venous blood / Unknown Venipuncture / Unknown 10/05/2024 6:24 AM EDT 10/05/2024 7:02 AM EDT us Kay Levi MD LAB BLOOD ORDERABLES Final Res ult Performing Organization Address City/[facility]/ZIP Co de Phone Number [facility] [address] [place] [address], [place] [phone] * LDH (10/05/2024 6:24 AM EDT) Pathologist [facility] LDH 138 100 - 235 U/L 10/05/2024 7:33 AM EDT [facility] Blood Venous blood / Unknown Venipuncture / Unknown 10/05/2024 6:24 AM EDT 10/05/2024 7:02 AM EDT Kay Levi MD LAB BLOOD ORDERABLES Final Res ult Performing Organization Address City/[facility]/ZIP Co de Phone Number [facility] [address] [place] [address], [place] [phone] * (ABNORMAL) Comprehensive metabolic panel (10/05/2024 6:24 AM EDT) SODIUM 135 134 - 146 mmol/L 10/05/2024 7:33 AM EDT [facility] POTASSIUM 4.0 3.5 - 5.0 mmol/L 10/05/2024 7:33 AM EDT [facility] CHLORIDE 105 98 - 109 mmol/L 10/05/2024 7:33 AM EDT [facility] CARBON DIOXIDE 20(L) 22 - 32 mmol/L 10/05/2024 7:33 AM [facility] ANION GAP 10 5 - 15 mmol/L 10/05/2024 7:33 AM T [facility] BLOOD UREA NITROGEN 8 5 - 23 mg/dL 10/05/2024 7:33 AM [facility] CREATININE 0.64 0.40 - 1.00 mg/dL 10/05/2024 7:33 AM [facility] Comment:METHOD TRACEABLE TO IDIL STANDARD GLUCOSE 111(H) 65 - 99 mg/dL 10/05/2024 7:33 AM [facility] CALCIUM 7.8(L) 8.5 - 10.5 mg/dL 10/05/2024 7:33 AM [facility] TOTAL PROTEIN 6.7 6.0 - 8.0 g/dL 10/05/2024 7:33 AM [facility] ALBUMIN 3.4 3.2 - 5.3 g/dL 10/05/2024 7:33 AM [facility] ALKALINE PHOSPHATASE 114 39 - 130 U/L 10/05/2024 7:33 AM [facility] AST 8 <=41 U/L 10/05/2024 7:33 AM [facility] ALT 5 <=31 U/L 10/05/2024 7:33 AM [facility] BILIRUBIN,TOTAL 0.3 0.3 - 1.2 mg/dL 10/05/2024 7:33 AM [facility] EGFR Non-Race Dependent >90 >=60 ml/min/1.7 3sq.m 10/05/2024 7:33 AM [facility] Comment: Reported eGFR is based on the CKD-EPI 2020 equation that does not use a race coefficient. EGFR not calculated due to patient's gender not being defined. Blood Venous blood / Unknown Venipuncture / Unknown 10/05/2024 6:24 AM EDT 10/05/2024 7:02 AM EDT us Kay Lvei MD LAB BLOOD ORDERABLES Final Res ult [facility] [address] [place] [address], [place] [phone] * (ABNORMAL) CBC without diff (10/05/2024 6:24 AM EDT) WBC 14.8(H) 4 - 11 x10E9/L 10/05/2024 7:13 AM EDT [facility] RBC Count 4.69 3.8 - 5.2 X10E12/L 10/05/2024 7:13 AM EDT [facility] Hemoglobin 12.8 11.7 - 15.5 g/dL 10/05/2024 7:13 AM EDT [facility] Hematocrit 37.5 35 - 47 % 10/05/2024 7:13 AM EDT [facility] MCV 80 80 - 100 fL 10/05/2024 7:13 AM EDT [facility] MCH 27.2 27 - 34 pg 10/05/2024 7:13 AM EDT [facility] MCHC 34.0 32 - 36 g/dL 10/05/2024 7:13 AM EDT [facility] RDW 15.0 11.5 - 15 % 10/05/2024 7:13 AM EDT [facility] Platelet Count 276 150 - 450 X10E9/L 10/05/2024 7:13 AM EDT [facility] MPV 8.0 7 - 12 fL 10/05/2024 7:13 AM EDT [facility] Blood Venous blood / Unknown Venipuncture / Unknown 10/05/2024 6:24 AM EDT 10/05/2024 7:02 AM EDT us Kay Levi MD LAB BLOOD ORDERABLES Final Res ult [facility] [address] [place] [address], [place] [phone] * (ABNORMAL) Bedside Glucose *Place/Obtain serum glucose if >500 per glucometer. (10/05/2024 6:07 AM EDT) Bedside Glucose (POC) 119(H) 65 - 99 mg/dL 10/05/2024 6:14 AM EDT [facility] arterial/capilla ry 10/05/2024 6:07 AM EDT 10/05/2024 6:14 AM EDT us Binh Yung MD POINT OF CARE TEST ORDERABLES Final Result Performing Organization Address City/[facility]/ZIP Co de Phone Number [facility] [address] [place] [address], [place] * (ABNORMAL) Bedside Glucose *Place/Obtain serum glucose if >500 per glucometer. (10/05/2024 2:03 AM EDT) Bedside Glucose (POC) 133(H) 65 - 99 mg/dL 10/05/2024 2:05 AM EDT [facility] arterial/capilla ry 10/05/2024 2:03 AM EDT 10/05/2024 2:04 AM EDT us Binh Yung MD POINT OF CARE TEST ORDERABLES Final Result Performing Organization Address City/[facility]/ZIP Co de Phone Number [facility] [address] [place] [address], [place] * (ABNORMAL) Bedside Glucose *Place/Obtain serum glucose if >500 per glucometer. (10/04/2024 10:03PM EDT) Bedside Glucose (POC) 147(H) 65 - 99 mg/dL 10/04/2024 10:05 PM EDT [facility] arterial/capilla ry 10/04/2024 10:03 PM EDT 10/04/2024 10:05 PM EDT us Binh Yung MD POINT OF CARE TEST ORDERABLES Final Result Performing Organization Address City/[facility]/ZIP Co de Phone Number [facility] [address] [place] [address], [place] * Strep B screen (10/04/2024 8:55 PM EDT) [facility] CULTURE RESULTS POSITIVE FOR GROUP B STREPTOCOCCUS BY NUCLEIC ACID AMPLIFICATION 10/06/2024 12:59 AM EDT [facility] Swab (Vagina/Rectum) 10/04/2024 8:55 PM EDT 10/04/2024 9:15 PM EDT Narrative [facility] - 10/06/2024 12:59 AM EDT Group B streptococci remain universally susceptible to penicillin, ampicillin, and cefazolin. Resistance to clindamycin can occur. Please contact laboratory within 48 hours if clindamycin susceptibility testing is needed. us Evon Clement DO MICROBIOLOGY - GENERAL ORDER SONIA Final Result Performing Organization Address [facility] Co de Phone Number [facility] [address] [place] [address], [place] [phone] * (ABNORMAL) Bedside Glucose *Place/Obtain serum glucose if >500 per glucometer. (10/04/2024 6:13 PM EDT) [facility] Bedside Glucose (POC) 131(H) 65 - 99 mg/dL 10/04/2024 6:15 PM EDT [facility] arterial/capilla ry 10/04/2024 6:13 PM EDT 10/04/2024 6:15 PM EDT us Binh Yung MD POINT OF CARE TEST ORDERABLES Final Result Performing Organization Address [facility] Co de Phone Number [facility] [address] [place] [address], [place] * ABO Rh Repeat (10/04/2024 4:48 PM EDT) [facility] ABO A 10/04/2024 7:34 PM EDT [facility] RH Positive 10/04/2024 7:34 PM EDT [facility] Blood Venous blood / Unknown Venipuncture / Unknown 10/04/2024 4:48 PM EDT 10/04/2024 6:38 PM EDT Binh Yung MD BLOOD BANK TEST ORDERABLES Fin al Result Performing Organization Address City/[facility]/ZIP Co de Phone Number [facility] [address] [place] [address], [facility] [address] [place] [address], [place] * Uric acid (10/04/2024 4:48 PM EDT) URIC ACID 6.0 2.6 - 7.2 mg/dL 10/04/2024 5:43 PM EDT [facility] Blood Venous blood / Unknown Venipuncture / Unknown 10/04/2024 4:48 PM EDT 10/04/2024 4:58 PM EDT Kay Levi MD LAB BLOOD ORDERABLES Final Res ult Performing Organization Address City/[facility]/ZIP Co de Phone Number [facility] [address] [place] [address], [place] [phone] * LDH (10/04/2024 4:48 PM EDT) LDH 134 100 - 235 U/L 10/04/2024 5:43 PM EDT [facility] Blood Venous blood / Unknown Venipuncture / Unknown 10/04/2024 4:48 PM EDT 10/04/2024 4:58 PM EDT Kay Levi MD LAB BLOOD ORDERABLES Final Res ult [facility] [address] [place] [address], [place] [phone] * (ABNORMAL) Comprehensive metabolic panel (10/04/2024 4:48 PM EDT) SODIUM 136 134 - 146 mmol/L 10/04/2024 5:43 PM EDT [facility] POTASSIUM 4.2 3.5 - 5.0 mmol/L 10/04/2024 5:43 PM EDT [facility] CHLORIDE 106 98 - 109 mmol/L 10/04/2024 5:43 PM EDT [facility] CARBON DIOXIDE 19(L) 22 - 32 mmol/L 10/04/2024 5:43 PM EDT [facility] ANION GAP 11 5 - 15 mmol/L 10/04/2024 5:43 PM EDT [facility] BLOOD UREA NITROGEN 8 5 - 23 mg/dL 10/04/2024 5:43 PM EDT [facility] CREATININE 0.73 0.40 - 1.00 mg/dL 10/04/2024 5:43 PM EDT [facility] Comment:METHOD TRACEABLE TO IDMS STANDARD GLUCOSE 136(H) 65 - 99 mg/dL 10/04/2024 5:43 PM T [facility] CALCIUM 8.3(L) 8.5 - 10.5 mg/dL 10/04/2024 5:43 PM T [facility] TOTAL PROTEIN 6.6 6.0 - 8.0 g/dL 10/04/2024 5:43 PM EDT [facility] ALBUMIN 3.4 3.2 - 5.3 g/dL 10/04/2024 5:43 PM EDT [facility] ALKALINE PHOSPHATASE 119 39 - 130 U/L 10/04/2024 5:43 PM EDT [facility] AST 9 <=41 U/L 10/04/2024 5:43 PM EDT [facility] ALT 5 <=31 U/L 10/04/2024 5:43 PM T [facility] BILIRUBIN,TOTAL 0.2(L) 0.3 - 1.2 mg/dL 10/04/2024 5:43 PM EDT [facility] EGFR Non-Race Dependent >90 >=60 ml/min/1.7 3sq.m 10/04/2024 5:43 PM EDT [facility] Comment: Reported eGFR is based on the CKD-EPI 2020 equation that does not use a race coefficient. EGFR not calculated due to patient's gender not being defined. Blood Venous blood / Unknown Venipuncture / Unknown 10/04/2024 4:48 PM EDT 10/04/2024 4:58 PM EDT us Kay Levi MD LAB BLOOD ORDERABLES Final Res ult [facility] [address] [place] [address], [place] [phone] * CBC without diff (10/04/2024 4:48 PM EDT) WBC 10.9 4 - 11 x10E9/L 10/04/2024 5:23 PM EDT [facility] RBC Count 4.63 3.8 - 5.2 X10E12/L 10/04/2024 5:23 PM EDT [facility] Hemoglobin 12.6 11.7 - 15.5 g/dL 10/04/2024 5:23 PM EDT [facility] Hematocrit 37.0 35 - 47 % 10/04/2024 5:23 PM EDT [facility] MCV 80 80 - 100 fL 10/04/2024 5:23 PM EDT [facility] MCH 27.1 27 - 34 pg 10/04/2024 5:23 PM EDT [facility] MCHC 34.0 32 - 36 g/dL 10/04/2024 5:23 PM EDT [facility] RDW 15.0 11.5 - 15 % 10/04/2024 5:23 PM EDT [facility] Platelet Count 268 150 - 450 X10E9/L 10/04/2024 5:23 PM EDT [facility] MPV 7.9 7 - 12 fL 10/04/2024 5:23 PM EDT [facility] Blood Venous blood / Unknown Venipuncture / Unknown 10/04/2024 4:48 PM EDT 10/04/2024 4:58 PM EDT us Kay Levi MD LAB BLOOD ORDERABLES Final Res ult Performing Organization Address City/[facility]/ZIP Co de Phone Number [facility] [address] [place] [address], [place] [phone] * Buprenorphine, urnie (10/04/2024 3:40 PM EDT) BUPRENORPHINE, URINE QUALITATIVE Negative Negative 10/04/2024 5:09 PM EDT [facility] Urine Urine specimen collection, clean catch / Unknown 10/04/2024 3:40 PM EDT 10/04/2024 4:23 PM EDT [facility] - 10/04/2024 5:09 PM EDT Urine Buprenorphine cut of value = 10 ng/mL This report is intended for use in clinical monitoring or management of patients. us Yvon Vanegas MD URINE ORDERABLES Final Result Performing Organization Address [facility] Co de Phone Number [facility] [address] [place] [address], [place] [phone] * Fentanyl, Urine Qualitative (10/04/2024 3:40 PM EDT) FENTANYL, URINE QUAL. Negative Negative 10/04/2024 5:09 PM EDT [facility] Urine Urine specimen collection, clean catch / Unknown 10/04/2024 3:40 PM EDT 10/04/2024 4:23 PM EDT [facility] - 10/04/2024 5:09 PM EDT Fentanyl screening cutoff = 5ng/ml This report is intended for use in clinical monitoring or management of patients. us Yvon Vanegas MD URINE ORDERABLES Final Result [facility] [address] [place] [address], * Drug Screen, Urine (10/04/2024 3:40 PM EDT) AMPHETAMINE/METHAMP Negative Negative 10/04 5:09 PM EDT [facility] Comment:AMPH/METH screening cut off = 1000 ng/mL COCAINE METABOLITE Negative Negative 2024 5:09 PM EDT [facility] Comment:Cocaine screening cu t off value = 300 ng/mL ECSTASY Negative Negative 10/04/2024 5:09 PM EDT [facility] Comment:Ecstasy screening cu t off value = 500 ng/mL METHADONE Negative Negative 10/04/2024 5:09 PM EDT [facility] Comment:Methadone screening cut off value = 300 ng/mL. OPIATES Negative Negative 10/04/2024 5:09 PM EDT [facility] Comment: Opiates screening cut off value = 300 ng/mL This test is used for the detection of codeine, hydrocodone (>1000 ng/mL), morphine and hydromorphone (>900 ng/mL) in urine. OXYCODONE Negative Negative 10/04/2024 5:09 PM EDT [facility] Comment: Oxycodone screening cut off value = 300 ng/mL This test is used for the detection of oxycodone and oxymorphone in urine. PHENCYCLIDINE Negative Negative 10/04/2024 5:09 PM EDT [facility] Comment:Phencyclidine screen ing cut off value = 25 ng/mL CANNABINOIDS Negative Negative 10/04/2024 5:09 PM EDT [facility] Comment:Cannabinoids/THC scr eening cut off value = 50 ng/mL Urine Barbiturates Negative Negative 2024 5:09 PM EDT [facility] Comment:Barbiturates screeni ng cut off value = 200 ng/mL BENZODIAZEPINES Negative Negative 5:09 PM EDT [facility] Comment:Benzodiazepines scre ening cut off value = 200 ng/mL Urine Urine specimen collection, clean catch / Unknown 10/04/2024 3:40 PM EDT 10/04/2024 4:23 PM EDT us Yvon Vanegas MD URINE ORDERABLES Final Result [facility] [address] [place] [address], [place] [phone] * (ABNORMAL) Urine protein creatinine ratio (10/04/2024 3:40 PM EDT) URINE PROTEIN, RANDOM (MG/L) 140(H) <120 mg/L 10/04/2024 5:09 PM EDT [facility] URINE CREATININE,RDM 28.24 mg/dL 10/04/2024 5:09 PM EDT [facility] U/PRO/CABLE TELEVISION ACCESS COORDINATOR RATIO CALC 0.50(H) <=0.20 10/04/2024 5:09 PM EDT [facility] Urine Urine specimen collection, clean catch / Unknown 10/04/2024 3:40 PM EDT 10/04/2024 4:23 PM EDT Narrative [facility] - 10/04/2024 5:09 PM EDT Nephrotic Syndrome is associated with ratios >3.5 us Yvon Vanegas MD URINE ORDERABLES Final Result [facility] [address] [place] [address], [place] [phone] * [place] [facility] [facility] COMPREHENSIVE ANATOMIC SURVEY (10/04/2024 3:20 PM EDT) Anatomical Region Laterality Modality OB-MANUFA[employer]URING ELECTRICIAN Ultrasound 10/04/2024 2:51 PM EDT Narrative 10/04/2024 5:21 PM EDT NAME: BASILIO ALARCON : 1995 SEX: F Accession Number: [id number] ORDERING PHYSICIAN: YVON VANEGAS REFERRING PHYSICIAN: LUCÍA LEDESMA Coding ----- --------- Procedures 11433: Ultrasound, uterus, real time with image documentation, [...] EFW (oz) 8 oz EFW by: Hadlock ([id number]) Extended Tibia 47.6 mm 28w 6d 7% [employer]neyman 3.0 mm CM 5.2 mm 7% Nicolaides [...] Heart / Thorax 4-chamber view. 3-vessel view. 6-nzfiur-aoecfat view. Interventricular septum. Great vessels. Diaphragm. Abdomen [...] ALARCON : 1995 SEX: F Accession Number: [id number] ORDERING PHYSICIAN: YVON VANEGAS REFERRING PHYSICIAN: LUCÍA LEDESMA Coding ----- --------- Procedures [id number]: Ultrasound, uterus, real time with imagedocumentation, and [...] EFW (oz) 8 oz EFW by: Hadlock ([id number]) Extended Tibia 47.6 mm 28w 6d 7% [employer]ne[employer] 3.0 mm CM 5.2 mm 7% Nicolaides [...] Heart / Thorax 4-chamber view. 3-vessel view. 7-iwaaca-bhokyul view.Interventricular septum. Great vessels. Diaphragm. Abdomen Kidneys. [...] - 99 mg/dL 10/04/2024 2:22 PM EDT [facility] arterial/capilla ry 10/04/2024 2:20 PM EDT 10/04/2024 2:22 PM EDT us Binh Yung MD POINT OF CARE TEST ORDERABLES Final Result [facility] [address] [place] [address], [place] * ABO Rh Repeat (10/04/2024 1:02 PM EDT) ABO A 10/04/2024 4:14 PM EDT [facility] RH Positive 10/04/2024 4:14 PM EDT [facility] Blood Venous blood / Unknown Venipuncture / Unknown 10/04/2024 1:02 PM EDT 10/04/2024 1:19 PM EDT Kay Levi MD BLOOD BANK TEST ORDERABLES Fin al Result [facility] [address] [place] [address], [facility] [address] [place] [address], [place] * Type and screen(includes indirect reanna) (10/04/2024 1:02 PM EDT) ABO A 10/04/2024 2:03 PM EDT [facility] RH Positive 10/04/2024 2:03 PM EDT [facility] Antibody Screen Negative 10/04/2024 2:03 PM EDT [facility] Blood Venous blood / Unknown Venipuncture / Unknown 10/04/2024 1:02 PM EDT 10/04/2024 1:19 PM EDT Kay Levi MD BLOOD BANK TEST ORDERABLES Paco walter Result - Final Performing Organization Address City/[facility]/ZIP Co de Phone Number [facility] [address] [place] [address], [facility] [address] [place] [address], * Syphilis Total (Unknown Syphilis Status) (10/04/2024 1:02 PM EDT) SYPHILIS TOTAL <0.2 <=0.8 AI 10/04/2024 3:16 PM EDT [facility] Blood Venous blood / Unknown Venipuncture / Unknown 10/04/2024 1:02 PM EDT 10/04/2024 1:13 PM EDT Narrative [facility] - 10/04/2024 3:16 PM EDT NON REACTIVE No serologic evidence of infection to Treponema pallidum. Repeat testing may be considered in patients with suspected acute or primary syphilis in 2 to 4 weeks. us Kay Levi MD LAB BLOOD ORDERABLES Final Res ult Performing Organization Address City/[facility]/ZIP Co de Phone Number [facility] [address] [place] [address], * Uric acid (10/04/2024 1:02 PM EDT) URIC ACID 5.7 2.6 - 7.2 mg/dL 10/04/2024 1:50 PM EDT [facility] Blood Venous blood / Unknown Venipuncture / Unknown 10/04/2024 1:02 PM EDT 10/04/2024 1:13 PM EDT Kay Levi MD LAB BLOOD ORDERABLES Final Res ult [facility] [address] [place] [address], * LDH (10/04/2024 1:02 PM EDT) [facility] LDH 140 100 - 235 U/L 10/04/2024 1:50 PM EDT [facility] Blood Venous blood / Unknown Venipuncture / Unknown 10/04/2024 1:02 PM EDT 10/04/2024 1:13 PM EDT Kay Levi MD LAB BLOOD ORDERABLES Final Res ult [facility] [address] [place] [address], * (ABNORMAL) CBC without diff (10/04/2024 1:02 PM EDT) [facility] WBC 11.0 4 - 11 x10E9/L 10/04/2024 1:28 PM EDT [facility] RBC Count 4.77 3.8 - 5.2 X10E12/L 10/04/2024 1:28 PM EDT [facility] Hemoglobin 12.9 11.7 - 15.5 g/dL 10/04/2024 1:28 PM EDT [facility] Hematocrit 38.1 35 - 47 % 10/04/2024 1:28 PM EDT [facility] MCV 80 80 - 100 fL 10/04/2024 1:28 PM EDT [facility] MCH 27.1 27 - 34 pg 10/04/2024 1:28 PM EDT [facility] MCHC 33.9 32 - 36 g/dL 10/04/2024 1:28 PM EDT [facility] RDW 15.4(H) 11.5 - 15 % 10/04/2024 1:28 PM EDT [facility] Platelet Count 262 150 - 450 X10E9/L 10/04/2024 1:28 PM EDT [facility] MPV 8.0 7 - 12 fL 10/04/2024 1:28 PM EDT [facility] Blood Venous blood / Unknown Venipuncture / Unknown 10/04/2024 1:02 PM EDT 10/04/2024 1:13 PM EDT Kay Levi MD LAB BLOOD ORDERABLES Final Res ult [facility] [address] [place] [address], [place] [phone] * Chlamydia/GC by PCR Young Swab (08/20/2024) Chlamydia Dna(Pcr) negative Gonorrhoeae Dna(Pcr) negative Swab Result [facility] Lucía R Angel DO MICROBIOLOGY - GENERAL ORDERABL ES Final Result * Hepatitis B surface antigen (2024) Hepatitis B Surface Antigen negative Blood Venous blood / Unknown Result [facility] Lucía R Angel DO LAB [...] immune Blood Venous blood / Unknown Result [facility] Lucía R [employer] LAB BLOOD ORDERABLES Final Resu lt * Syphilis Total (Unknown Syphilis Status) (2024) Syphilis nonreactive Blood Venous blood / Unknown Lucía R [employer] LAB BLOOD ORDERABLES Final Resu lt documented [...] Every 8 hours scheduled, First dose on [facility] 10/04/24 at 1415, Look-alike/sound-alike medication - [...] g/hr (50 mL/hr), intravenous, Continuous, Starting on [facility] 10/04/24 at 1300, For 5 days, [...]
--- OUTSIDE RECORDS SUMMARY | 2024-10-04 14:31 | XMS_ITS | Encounter Summary ---
Author Organization [facility] Address [id number] [address] [place] [address] Care Team Providers Care Photo Finisher Name Role Phone Unavailable Primary Care Provider Unavailabl e Reason for Visit * Auth/Cert (Routine) Specialty Diagnoses / Procedures Referred By Jesus t Referred To Contact Diagnoses Preeclampsia Severe preeclampsia Binh Yung MD [address] [place] [address], [address] [address] Phone: tel: fax: Referral ID Status Reason Start Date Expiration Date Visits Re quested Visits Authorized [id number] 1 1 Encounter Details Date Type Department Care Team (Latest Contact Info) Description 10/04/2024 2:31 PM EDT - 10/04/2024 11:59 PM EDT Hospital Encounter [facility] US Imaging [address] [place] [address] Discharge Disposition: Home Social History Tobacco Use [...] PM EDT Support Visit Maternal- Medicine at [facility] [address] [place] [phone] Krista Cruz, RN [address] [facility] [place] [address] Laura Weaver LD documented as of this encounter Procedures Procedure Name Priority Date/Time Associated Diagnosis Comments [facility] COMPREHENSIVE ANATOMIC SURVEY Routine 10/04/2024 3:20 PM EDT documented in this encounter Results * US [facility] COMPREHENSIVE ANATOMIC SURVEY (10/04/2024 3:20 PM EDT) Anatomical Region Laterality Modality OB-SWIMMER Ultrasound 10/04/2024 2:51 PM EDT Narrative 10/04/2024 5:21 PM EDT NAME: BASILIO ALARCON : 1995 SEX: F Accession Number: [id number] ORDERING PHYSICIAN: DANICA POST REFERRING PHYSICIAN: LUCÍA LEDESMA Coding ----- --------- Procedures [id number]: Ultrasound, uterus, real time with image documentation, [...] EFW (oz) 8 oz EFW by: Hadlock ([id number]-FL) Extended Tibia 47.6 mm 28w 6d 7% Isac Concession Attendant 3.0 mm CM 5.2 mm 7% Nicolaides [...] Heart / Thorax 4-chamber view. 3-vessel view. 1-mlccqa-nyqjaih view. Interventricular septum. Great vessels. Diaphragm. Abdomen [...] ALARCON : 1995 SEX: F Accession Number: [id number] ORDERING PHYSICIAN: DANICA POST REFERRING PHYSICIAN: LUCÍA LEDESMA Coding ----- --------- Procedures [id number]: Ultrasound, uterus, real time with imagedocumentation, and [...] days) 31 w + 0 d Assigned JNANY: 12/06/2024 General Evaluation ----- --------- Cardiac activity [...] EFW (oz) 8 oz EFW by: Hadlock ([id number]-FL) Extended Tibia 47.6 mm 28w 6d 7% Isac Concession Attendant 3.0 mm CM 5.2 mm 7% Nicolaides [...] Heart / Thorax 4-chamber view. 3-vessel view. 1-phobxd-alrhocg view.Interventricular septum. Great vessels. Diaphragm. Abdomen Kidneys. [...] byprimary OB provider unless otherwise specified by [facility]. Results forwarded to ordering provider so they can follow up with thepatient as necessary. us Danica Post MD [facility] ORDERABLES Final Resul t documented in this encounter Visit Diagnoses Not on filedocumented in this encounter
--- OUTSIDE RECORDS SUMMARY | 2024-10-08 14:20 | XMS_ITS | Encounter Summary ---
Author Organization [facility] Address [address] [place] [address] Care Team Providers Care Sewage Disposal Worker Name Role Phone Unavailable Primary Care Provider Unavailabl e Reason for Visit * Reason Comments Routine Visit Encounter Details Date Type Department Care Team ([facility] Contact Info) Description 10/08/2024 2:20 PM EDT Routine GREG [facility] OBGYN [address] [place] [phone] Zack Ortiz DO [address] [place] [address] Third trimester ([facility]); 31 weeks gestation of ([facility]); Hypertension affecting in third trimester ([facility]) Social History Tobacco Use Types [...] to check FSBS. Blood Glucose Monitoring Suppl ([employer] Glucometer) w/Device kit 1 kit, Does not [...] nursing note reviewed. Exam conducted with a restaurant busser present. Vitals: Estimated body mass index is 49.33 kg/m?? as calculated from the following: Height as of 22: 5' 4 . Weight as of this encounter: 287 lb 6.4 oz. BP: (!) 142/100 No LMP recorded. Patient is . ASSESSMENT & PLAN ICD-10-CM 1. Third trimester ([facility]) Z34.93 Urine dip 2. 31 weeks gestation of ([facility]) Z3A.31 Urine dip Patient was seen at [facility] last week. Patient left AMA and was advised thatit is recommended that she return to [place] until delivery as instructed. Patient declines and would like to continue locally at this time. Informed patient that if she experiences any symptoms then she is to return to [facility] to be monitored. Patient declines and will [...] [facility] [address] [place] [address] Zack Ortiz DO [address] [place] [address] documented as of this encounter Procedures Procedure Name Priority Date/Time Associated Diagnosis Comments POCT URINALYSIS DIPSTICK Routine 10/08/2024 3:15 PM EDT Third trimester ([facility]) 31 weeks gestation of ([facility]) documented in this encounter Results * [...] ([facility]) state, incidental 31 weeks gestation of ([facility]) Hypertension affecting in third trimester ([facility]) documented in this encounter
--- NOTE | 2024-10-10 | US_ITS ---
[place] [id number] Patient Name: DORIAN RICHMOND MRN: [id number] date: 1995 Sex: F Assigned Patient Location: [facility] Current Patient Location: [facility] Accession/Order Number: [id number] Exam Date: 10/10/2024 14:02 Report Date: 10/10/2024 14:29 At the request of: LUCÍA LEDESMA DO Procedure: US OB BPP w non-stress Biophysical profile. Reason for exam: Gestational diabetes COMPARISON: 10/03/2024 TECHNIQUE: Transabdominal imaging of the gravid uterus was obtained. FINDINGS: The gift manager reports a BPP of 8 out of 8. SCOOTER is normal at 11.7 cm. heart rate 134 bpm. US/US OB BPP w non-stress IMPRESSION: BPP 8 out of 8. Impression dictated by: Kahlil Voss Jr., D.O. 10/10/2024 2:29 PM Dictation Location: [place] [address] Electronically authenticated by: [id number] Y Date: 10/10/2024 14:29
--- OUTSIDE RECORDS SUMMARY | 2024-10-10 13:59 | XMS_ITS | Encounter Summary ---
Author Organization [facility] Address [address] [place] [address] Care Team Providers Care Senior Chemical Engineer Name Role Phone Unavailable Primary Care Provider Unavailabl e Encounter Details Date Type Department Care Team (Late Contact Info) Description 08/28/2024 Orders Only [facility] [address] [place] [phone] Berta Yoder [place] [address] [place] [address] Social History Tobacco Use Types Packs/Day Years [...] EDT Routine [facility] [address] [place] [address] Zack Ortiz DO [address] [place], [place] [id number] documented as of this encounter Procedures Procedure [...]
--- OUTSIDE RECORDS SUMMARY | 2024-10-10 13:59 | XMS_ITS | Patient Health Record ---
Author Organization [facility] Address [address] [place] [address] Care Team Providers Care Power Wood Sawyer Name Role Phone Maliha Matos Primary Care Provider [phone] Reason For Referral No Information Plan Of Treatment No Information Insurance Providers Payer Name Payer Address Payer Phone Subscriber Number Group Number Insured Name Patient Relationship to Insured Coverage Start Date Coverage End Date ANTHEM Primary [address] [place] [phone] [id number] JOSÉ MIGUEL KOLB Spouse - patient is the spouse of the insured 3
--- OUTSIDE RECORDS SUMMARY | 2024-10-10 13:59 | XMS_ITS | Clinical Summary ---
Author Organization [facility] [email or web address] [facility] Address [id number] [address] [place] [address] Care Team Providers Care Street Vendor Name Role Phone Unavailable Primary Care Provider Unavailabl e Allergies No known active allergies Medications vit,codi 74/iron/folic ( VITAMIN 1+1 ORAL) Take 1 tablet by mouth in the morning. Active albuterol (PROVENTIL HFA;VENTOLIN HFA) 90 mcg/actuation inhaler Inhale 2 puffs every 6 (six) hours as needed for wheezing. Active labetaloL (NORMODYNE) 200 mg tablet Take 1 tablet (200 mg total) by mouth every 8 (eight) hours. 90 tablet 3 10/05/2024 Active Active Problems Problem Noted Date Diagnosed Date Preeclampsia 10/04/2024 Estimated Date of Delivery Comme nts Yes 12/06/2024 Based on Ultraso und Encounters Date Type Department Care Team Description 10/04/2024 2:31 PM EDT - 10/04/2024 11:59 PM EDT Hospital Encounter [facility] - [facility] US Imaging [address] [place] [phone] Discharge Disposition: Home 10/04/2024 12:23 PM EDT - 10/05/2024 3:01 PM EDT Hospital Encounter [facility] - GEN 3 Antepartum [address] [place] [phone] Binh Yung MD Discharge Disposition: Left Against Medical Advice or Discontinued Care 10/04/2024 Travel from Last 3 Months Immunizations Immunization Administration Dates Next Due Tdap 10/04/2024() Social History Tobacco Use Types Packs/Day Years [...] on file Sexual Orientation Not on file Last Filed Vital Signs Vital Sign Reading [...] Mass Index 48.26 10/04/2024 12:24 PM EDT Plan of Treatment Upcoming Encounters Date Type Department Care Team (Late st Contact Info) Description 10/18/2024 1:30 PM EDT Support Visit Maternal- Medicine at [facility] [address] [place] [phone] Krista Cruz RN [address] [facility], [address] [place] [id number] Laura Weaver LD Health Maintenance Due Date Last Done Comments Depression Screening 2006 Tobacco Screening 2006 Adult BMI Follow Up Plan 2012 COVID-19 Vaccine (2023-2 5 season) 2023 10/09/2020 Influenza Vaccine 10/15/2024 11/26/2011, , 03/01/2003 Adult BMI Screening 10/04/2025 10/04/2024 Pap Smear 08/21/2027 08/20/2024 DTaP,Tdap and Td Vaccines (3 - Td or Tdap) 09/14/2031 09/13/2021, 09/29/2020 Medical Devices Not on file Procedures Procedure Name Priority Date/Time Associated Diagnosis Comments BEDSIDE GLUCOSE Routine 10/05/2024 11:55 AM EDT URIC ACID Routine 10/05/2024 6:24 AM EDT LDH Routine 10/05/2024 6:24 AM EDT COMPREHENSIVE METABOLIC PANEL Routine 10/05/2024 6:24 AM EDT CBC (NO DIFF) Routine 10/05/2024 6:24 AM EDT BEDSIDE GLUCOSE Routine 10/05/2024 6:07 AM EDT BEDSIDE GLUCOSE Routine 10/05/2024 2:03 AM EDT BEDSIDE GLUCOSE Routine 10/04/2024 10:03 PM EDT STREP B SCREEN Routine 10/04/2024 8:55 PM EDT BEDSIDE GLUCOSE Routine 10/04/2024 6:13 PM EDT REPEATED ABORH Routine 10/04/2024 4:48 PM EDT URIC ACID Routine 10/04/2024 4:48 PM EDT LDH Routine 10/04/2024 4:48 PM EDT COMPREHENSIVE METABOLIC PANEL Routine 10/04/2024 4:48 PM EDT CBC (NO DIFF) Routine 10/04/2024 4:48 PM EDT BUPRENORPHINE, URINE, QUALITATIVE Routine 10/04/2024 3:40 PM EDT FENTANYL, URINE QUALITATIVE Routine 10/04/2024 3:40 PM EDT DRUG SCREEN, URINE Routine 10/04/2024 3: 40 PM EDT PROTEIN CREAT RATIO Routine 10/04/2024 3 :40 PM EDT [facility] COMPREHENSIVE ANATOMIC SURVEY Routine 10/04/2024 3:20 PM EDT BEDSIDE GLUCOSE Routine 10/04/2024 2:20 PM EDT REPEATED ABORH Routine 10/04/2024 1:02 PM EDT TYPE AND SCREEN Routine 10/04/2024 1:02 PM EDT SYPHILIS TOTAL(UNKNOWN SYPHILIS STATUS) STAT 10/04/2024 1:02 PM EDT URIC ACID Routine 10/04/2024 1:02 PM EDT LDH Routine 10/04/2024 1:02 PM EDT CBC (NO DIFF) Routine 10/04/2024 1:02 PM EDT CHLAMYDIA/GC BY PCR YOUNG SWAB Routine 08/20/2024 from Last 3 Months Results * (ABNORMAL) Bedside Glucose *Place/Obtain serum glucose if >500 per glucometer. (10/05/2024 11:55AM EDT) Only the most recent of6 resultswithin the time period is included. Bedside Glucose (POC) 168(H) 65 - 99 mg/dL 10/05/2024 12:00 PM EDT [facility] arterial/capilla ry 10/05/2024 11:55 AM EDT 10/05/2024 12:00 PM EDT us Binh Yung MD POINT OF CARE TEST ORDERABLES Final Result [facility] [address] [place] [address], [place] * LDH (10/05/2024 6:24 AM EDT) Only the most recent of3 resultswithin the time period is included. Pathologist [facility] LDH 138 100 - 235 U/L 10/05/2024 7:33 AM EDT [facility] Blood Venous blood / Unknown Venipuncture / Unknown 10/05/2024 6:24 AM EDT 10/05/2024 7:02 AM EDT us Kay Levi MD LAB BLOOD ORDERABLES Final Res ult [facility] [address] [place] [address], [place] [phone] * (ABNORMAL) CBC without diff (10/05/2024 6:24 AM EDT) Only the most recent of3 resultswithin the time period is included. [facility] WBC 14.8(H) 4 - 11 x10E9/L 10/05/2024 7:13 AM EDT [facility] RBC Count 4.69 3.8 - 5.2 X10E12/L 10/05/2024 7:13 AM EDT [facility] Hemoglobin 12.8 11.7 - 15.5 g/dL 10/05/2024 7:13 AM EDT [facility] Hematocrit 37.5 35 - 47 % 10/05/2024 7:13 AM EDT [facility] MCV 80 80 - 100 fL 10/05/2024 7:13 AM EDT [facility] MCH 27.2 27 - 34 pg 10/05/2024 7:13 AM EDT [facility] MCHC 34.0 32 - 36 g/dL 10/05/2024 7:13 AM EDT [facility] RDW 15.0 11.5 - 15 % 10/05/2024 7:13 AM EDT [facility] Platelet Count 276 150 - 450 X10E9/L 10/05/2024 7:13 AM EDT [facility] MPV 8.0 7 - 12 fL 10/05/2024 7:13 AM EDT [facility] Blood Venous blood / Unknown Venipuncture / Unknown 10/05/2024 6:24 AM EDT 10/05/2024 7:02 AM EDT us Kay Levi MD LAB BLOOD ORDERABLES Final Res ult [facility] [address] [place] [address], [place] [phone] * Uric acid (10/05/2024 6:24 AM EDT) Only the most recent of3 resultswithin the time period is included. URIC ACID 6.4 2.6 - 7.2 mg/dL 10/05/2024 7:33 AM EDT [facility] Blood Venous blood / Unknown Venipuncture / Unknown 10/05/2024 6:24 AM EDT 10/05/2024 7:02 AM EDT us Kay Levi MD LAB BLOOD ORDERABLES Final Res ult Performing Organization Address City/[facility]/ZIP Co de Phone Number [facility] [address] [place] [address], [place] [phone] * (ABNORMAL) Comprehensive metabolic panel (10/05/2024 6:24 AM EDT) Only the most recent of2 resultswithin the time period is included. SODIUM 135 134 - 146 mmol/L 10/05/2024 7:33 AM EDT [facility] POTASSIUM 4.0 3.5 - 5.0 mmol/L 10/05/2024 7:33 AM EDT [facility] CHLORIDE 105 98 - 109 mmol/L 10/05/2024 7:33 AM EDT [facility] CARBON DIOXIDE 20(L) 22 - 32 mmol/L 10/05/2024 7:33 AM EDT [facility] ANION GAP 10 5 - 15 mmol/L 10/05/2024 7:33 AM T [facility] BLOOD UREA NITROGEN 8 5 - 23 mg/dL 10/05/2024 7:33 AM T [facility] CREATININE 0.64 0.40 - 1.00 mg/dL 10/05/2024 7:33 AM T [facility] Comment:METHOD TRACEABLE TO IDKS STANDARD GLUCOSE 111(H) 65 - 99 mg/dL 10/05/2024 7:33 AM T [facility] CALCIUM 7.8(L) 8.5 - 10.5 mg/dL 10/05/2024 7:33 AM T [facility] TOTAL PROTEIN 6.7 6.0 - 8.0 g/dL 10/05/2024 7:33 AM [facility] ALBUMIN 3.4 3.2 - 5.3 g/dL 10/05/2024 7:33 AM T [facility] ALKALINE PHOSPHATASE 114 39 - 130 U/L 10/05/2024 7:33 AM T [facility] AST 8 <=41 U/L 10/05/2024 7:33 AM [facility] ALT 5 <=31 U/L 10/05/2024 7:33 AM T [facility] BILIRUBIN,TOTAL 0.3 0.3 - 1.2 mg/dL 10/05/2024 7:33 AM [facility] EGFR Non-Race Dependent >90 >=60 ml/min/1.7 3sq.m 10/05/2024 7:33 AM [facility] Comment: Reported eGFR is based on the CKD-EPI 2020 equation that does not use a race coefficient. EGFR not calculated due to patient's gender not being defined. Blood Venous blood / Unknown Venipuncture / Unknown 10/05/2024 6:24 AM EDT 10/05/2024 7:02 AM EDT Kay Levi MD LAB BLOOD ORDERABLES Final Res ult [facility] [address] [place] [address], * Strep B screen (10/04/2024 8:55 PM EDT) CULTURE RESULTS POSITIVE FOR GROUP B STREPTOCOCCUS BY NUCLEIC ACID AMPLIFICATION 10/06/2024 12:59 AM EDT [facility] Swab (Vagina/Rectum) 10/04/2024 8:55 PM EDT 10/04/2024 9:15 PM EDT Narrative [facility] - 10/06/2024 12:59 AM EDT Group B streptococci remain universally susceptible to penicillin, ampicillin, and cefazolin. Resistance to clindamycin can occur. Please contact laboratory within 48 hours if clindamycin susceptibility testing is needed. Evon Clement DO MICROBIOLOGY - GENERAL ORDER SONIA Final Result Performing Organization Address City/[facility]/ZIP Co de Phone Number [facility] [address] [place] [address], * ABO Rh Repeat (10/04/2024 4:48 PM EDT) Only the most recent of2 resultswithin the time period is included. Pathologist [facility] ABO A 10/04/2024 7:34 PM EDT [facility] RH Positive 10/04/2024 7:34 PM EDT [facility] Blood Venous blood / Unknown Venipuncture / Unknown 10/04/2024 4:48 PM EDT 10/04/2024 6:38 PM EDT Binh Yung MD BLOOD BANK TEST ORDERABLES Fin al Result [facility] [address] [place] [address], [facility] [address] [place] [address], [place] * (ABNORMAL) Urine protein creatinine ratio (10/04/2024 3:40 PM EDT) URINE PROTEIN, RANDOM (MG/L) 140(H) <120 mg/L 10/04/2024 5:09 PM EDT [facility] URINE CREATININE,RDM 28.24 mg/dL 10/04/2024 5:09 PM EDT [facility] U/PRO/TEST DRIVER RATIO CALC 0.50(H) <=0.20 10/04/2024 5:09 PM EDT [facility] Urine Urine specimen collection, clean catch / Unknown 10/04/2024 3:40 PM EDT 10/04/2024 4:[address] [facility] - 10/04/2024 5:09 PM EDT Nephrotic Syndrome is associated with ratios >3.5 Yvon Post MD URINE ORDERABLES Final Result [facility] [address] [place] [address], [place] [phone] * Buprenorphine, urnie (10/04/2024 3:40 PM EDT) BUPRENORPHINE, URINE QUALITATIVE Negative Negative 10/04/2024 5:09 PM EDT [facility] Urine Urine specimen collection, clean catch / Unknown 10/04/2024 3:40 PM EDT 10/04/2024 4:[address] [facility] - 10/04/2024 5:09 PM EDT Urine Buprenorphine cut of value = 10 ng/mL This report is intended for use in clinical monitoring or management of patients. us Yvon Post MD URINE ORDERABLES Final Result [facility] [address] [place] [address], [place] [phone] * Fentanyl, Urine Qualitative (10/04/2024 3:40 PM EDT) FENTANYL, URINE QUAL. Negative Negative 10/04/2024 5:09 PM EDT [facility] Urine Urine specimen collection, clean catch / Unknown 10/04/2024 3:40 PM EDT 10/04/2024 4:23 PM EDT Narrative [facility] - 10/04/2024 5:09 PM EDT Fentanyl screening cutoff = 5ng/ml This report is intended for use in clinical monitoring or management of patients. us Yvon Post MD URINE ORDERABLES Final Result [facility] [address] [place] [address], [place] [phone] * Drug Screen, Urine (10/04/2024 3:40 PM EDT) AMPHETAMINE/METHAMP Negative Negative 10/04 5:09 PM EDT [facility] Comment:AMPH/METH screening cut off = 1000 ng/mL COCAINE METABOLITE Negative Negative 2024 5:09 PM EDT [facility] Comment:Cocaine screening cu t off value = 300 ng/mL ECSTASY Negative Negative 10/04/2024 5:09 PM EDT [facility] Comment:Ecstasy screening cu t off value = 500 ng/mL METHADONE Negative Negative 10/04/2024 5:09 PM EDT [facility] Comment:Methadone screening cut off value = 300 ng/mL. OPIATES Negative Negative 10/04/2024 5:09 PM EDT [facility] Comment: Opiates screening cut off value = 300 ng/mL This test is used for the detection of codeine, hydrocodone (>1000 ng/mL), morphine and hydromorphone (>900 ng/mL) in urine. OXYCODONE Negative Negative 10/04/2024 5:09 PM EDT [facility] Comment: Oxycodone screening cut off value = 300 ng/mL This test is used for the detection of oxycodone and oxymorphone in urine. PHENCYCLIDINE Negative Negative 10/04/2024 5:09 PM EDT [facility] Comment:Phencyclidine screen ing cut off value = 25 ng/mL CANNABINOIDS Negative Negative 10/04/2024 5:09 PM EDT [facility] Comment:Cannabinoids/THC scr eening cut off value = 50 ng/mL Urine Barbiturates Negative Negative 2024 5:09 PM EDT [facility] Comment:Barbiturates screeni ng cut off value = 200 ng/mL BENZODIAZEPINES Negative Negative 5:09 PM EDT [facility] Comment:Benzodiazepines scre ening cut off value = 200 ng/mL Urine Urine specimen collection, clean catch / Unknown 10/04/2024 3:40 PM EDT 10/04/2024 4:23 PM EDT us Yvon Post MD URINE ORDERABLES Final Result [facility] [address] [place] [address], [place] [phone] * US MFM COMPREHENSIVE ANATOMIC SURVEY (10/04/2024 3:20 PM EDT) Anatomical Region Laterality Modality OB-MUSEUM SERVICE SCHEDULER Ultrasound 10/04/2024 2:51 PM EDT Narrative 10/04/2024 5:21 PM EDT NAME: LA ALARCON : 1995 SEX: F Accession Number: [id number] ORDERING PHYSICIAN: YVON POST REFERRING PHYSICIAN: LUCÍA ORTIZ Coding ----- --------- Procedures [id number]: Ultrasound, uterus, real time with image documentation, [...] EFW (oz) 8 oz EFW by: Hadlock ([id number]) Extended Tibia 47.6 mm 28w 6d 7% Isac Rib Matcher And Fitter 3.0 mm CM 5.2 mm 7% Nicolaides [...] Heart / Thorax 4-chamber view. 3-vessel view. 9-bclbsa-qbkjwtg view. Interventricular septum. Great vessels. Diaphragm. Abdomen [...] primary OB provider unless otherwise specified by M. Results forwarded to ordering provider so they can follow up with the patient as necessary. Procedure Note Aleena Mills MD - 10/04/2024 NAME: LA ALARCON : 1995 SEX: F Accession Number: [id number] ORDERING PHYSICIAN: YVON POST REFERRING PHYSICIAN: LUCÍA ORTIZ Coding ----- --------- Procedures [id number]: Ultrasound, uterus, real time with imagedocumentation, and [...] EFW (oz) 8 oz EFW by: Hadlock ([id number]) Extended Tibia 47.6 mm 28w 6d 7% Isac Rib Matcher And Fitter 3.0 mm CM 5.2 mm 7% Nicolaides [...] Heart / Thorax 4-chamber view. 3-vessel view. 7-vuelbv-pgriuxv view.Interventricular septum. Great vessels. Diaphragm. Abdomen Kidneys. [...] up with thepatient as necessary. us Yvon Post MD [facility] US ORDERABLES Final Resul t * Syphilis Total (Unknown Syphilis Status) (10/04/2024 1:02 PM EDT) SYPHILIS TOTAL <0.2 <=0.8 AI 10/04/2024 3:16 PM EDT [facility] Blood Venous blood / Unknown Venipuncture / Unknown 10/04/2024 1:02 PM EDT 10/04/2024 1:13 PM EDT Narrative [facility] - 10/04/2024 3:16 PM EDT NON REACTIVE No serologic evidence of infection to Treponema pallidum. Repeat testing may be considered in patients with suspected acute or primary syphilis in 2 to 4 weeks. Kay Levi MD LAB BLOOD ORDERABLES Final Res ult [facility] [address] [place] [address], * Type and screen(includes indirect reanna) (10/04/2024 1:02 PM EDT) ABO A 10/04/2024 2:03 PM EDT [facility] RH Positive 10/04/2024 2:03 PM EDT [facility] Antibody Screen Negative 10/04/2024 2:03 PM EDT [facility] Blood Venous blood / Unknown Venipuncture / Unknown 10/04/2024 1:02 PM EDT 10/04/2024 1:19 PM EDT Kay Levi MD BLOOD BANK TEST ORDERABLES Paco walter Result - Final Performing Organization Address City/[facility]/ZIP Co de Phone Number [facility] [place] [address] [place] [address], [facility] [address] [place] [address], * Chlamydia/GC by PCR Young Swab (08/20/2024) Chlamydia Dna(Pcr) negative Gonorrhoeae Dna(Pcr) negative Swab Lucía Ortiz DO MICROBIOLOGY - GENERAL ORDERABL ES Final Result from Last 3 Months Insurance [employer] ANTH Advance Directives * Full Code (Latest Code Status on File) Date Activated Date Inactivated Comments 10/04/2024 12:52 PM 10/05/2024 5:08 PM
--- OUTSIDE RECORDS SUMMARY | 2024-10-10 13:59 | XMS_ITS | Encounter Summary ---
Author Organization [facility] Address [address] [place] [address] Care Team Providers Care Toy Painter Name Role Phone Unavailable Primary Care Provider Unavailabl e Encounter Details Date Type Department Care Team (Late Contact Info) Description 10/08/2024 Bamboo flowsheet [facility] [address] [place] [phone] Zack Ortiz DO [facility] [address], [place] [address] Social History Tobacco Use Types Packs/Day Years [...] Routine [facility]ZANO [address] [place] [phone] Zack Ortiz DO [address], [facility]11 documented as of this encounter Visit Diagnoses Not on filedocumented in this encounter
--- OUTSIDE RECORDS SUMMARY | 2024-10-10 14:00 | XMS_ITS | Encounter Summary ---
Author Organization [facility] Address [address] [place] [address] Care Team Providers Care Owner Spa Director Name Role Phone Unavailable Primary Care Provider Unavailabl e Encounter Details Date Type Department Care Team (Late Contact Info) Description 05/31/2024 Abstract GREG MANZANO [facility] [place] [phone] Zack Ortiz DO [facility] [address], [id number] Social History Tobacco Use Types Packs/Day Years [...] 10/17/2024 1:30 PM EDT Routine GREG MANZANO [facility] [place] [phone] Zack Ortiz DO [address] [place] [address] documented as of this encounter Visit Diagnoses Not on filedocumented in this encounter
--- OUTSIDE RECORDS SUMMARY | 2024-10-10 14:00 | XMS_ITS | Encounter Summary ---
Author Organization [facility] Address [address] [place] [address] Care Team Providers Care Library Technician Name Role Phone Unavailable Primary Care Provider Unavailabl e Encounter Details Date Type Department Care Team (Late st Contact Info) Description 10/03/2024 Clinisync Result Encounter [facility] External Department Unsolicited Zack Ortiz DO [address], [id number] Social History Tobacco Use Types Packs/Day Years [...] 1:30 PM EDT Routine [facility] Luis Armando [facility]BG[facility] [address] [place] [phone] Zack Ortiz DO [address] [address] documented as of this encounter Procedures Procedure Name Priority Date/Time Associated Diagnosis Comments TBH CREATININE Routine 10/03/2024 3:51 PM EDT [facility] AST Routine 10/03/2024 3:51 PM EDT [facility] ALT Routine 10/03/2024 3:51 PM EDT ALL URIC ACID Routine 10/03/2024 3:51 PM EDT ALL CBC WITH AUTO DIFF Routine 10/03/2024 3:51 PM EDT ALL BUN Routine 10/03/2024 3:51 PM EDT documented in this encounter Results * (ABNORMAL) ALL CBC WITH AUTO DIFF (10/03/2024 3:51 PM EDT) TB WBC 15.2(H) 4.0 - 11.0 10 3/uL TBH TBH RBC 4.49 4.20 - 5.40 10 6/uL TBH TBH HGB 12.5 12.0 - 16.0 g/dL TBH TBH HCT 36.6 36.0 - 48.0 % TBH TBH MCV 81.5 81.0 - 99.0 fL TBH TBH MCH 27.8 26.7 - 34.0 pg TBH TBH MCHC 34.2 29.9 - 35.2 g/dL TBH TBH RDW 14.2 11.0 - 15.0 % TBH TBH PLT 280 150 - 450 10 3/uL TBH TBH MPV 10.0 9.5 - 13.5 fL TBH NEUTROPHILS PERCENT AUTO 78.2(H) 43.0 - 75.0 % TBH LYMPHOCYTES PERCENT AUTO 13.0(L) 20.5 - 60.0 % TBH MONOCYTES PERCENT AUTO 5.7 1.7 - 12.0 % TBH TBH EO % 2.3 0.9 - 7.0 % TBH BASOPHILS PERCENT AUTO 0.3 0.2 - 2.0 % TBH IMMATURE GRANULOCYTES PCT AUTO 0.5 0.0 - 0.5 % TBH NEUTROPHILS ABSOLUTE AUTO 11.9(H) 1.4 - 6.5 10 3/uL TBH LYMPHOCYTES ABSOLUTE AUTO 2.0 1.2 - 3.8 10 3/uL TBH MONOCYTES ABSOLUTE AUTO 0.9(H) 0.3 - 0.8 10 3/uL TBH TBH EO # 0.4 0.0 - 0.7 10 3/uL TBH BASOPHILS ABSOLUTE AUTO 0.1 0.0 - 0.1 10 3/uL TBH IMMATURE GRANULOCYTES ABS AUTO 0.07(H) 0.00 - 0.03 10 3/uL TBH 10/03/2024 3:51 PM EDT 10/03/2024 4:14 PM EDT Narrative [facility] - 10/03/2024 4:41 PM EDT Zack Angel DO CLINISYNC Final Result Performing Organization Address [facility]/ZIP Co de Phone Number [facility] TB * [facility] ALT (10/03/2024 3:51 PM EDT) ALANINE AMINOTRANSFERASE 14 14 - 59 U/L TB 10/03/2024 3:51 PM EDT 10/03/2024 4:14 PM EDT Narrative [facility] - 10/03/2024 4:30 PM EDT [facility] Angel DO [facility] Final Result Performing Organization Address [facility]/ZIP Co de Phone Number [facility] TB * (ABNORMAL) [facility] AST (10/03/2024 3:51 PM EDT) ASPARTATE AMINO TRANSFERASE 13(L) 15 - 37 U/L TBH 10/03/2024 3:51 PM EDT 10/03/2024 4:14 PM EDT Narrative [facility] - 10/03/2024 4:30 PM EDT Zack Angel DO CLINIS[facility]NC Final Result Performing Organization Address [facility]/ZIP Co de Phone Number [facility] TB * ALL URIC ACID (10/03/2024 3:51 PM EDT) URIC ACID 5.3 2.6 - 6.0 mg/dL TB 10/03/2024 3:51 PM EDT 10/03/2024 4:14 PM EDT Narrative [facility] - 10/03/2024 4:30 PM EDT us Zack Angel DO CLINIS[facility]NC Final Result [facility] TBH * TBH CREATININE (10/03/2024 3:51 PM EDT) CREATININE 0.84 0.55 - 1.02 mg/dL TBH TBH EGFR-AF GRENADIAN >60 >=60 mL/min/1.7 3m 2 TBH TBH EGFR-NON AF GRENADIAN >60 >=60 mL/min/1.7 3m 2 TBH 10/03/2024 3:51 PM EDT 10/03/2024 4:14 PM EDT Narrative [facility] - 10/03/2024 4:30 PM EDT us Zack Angel DO CLINISYNC Final Result [facility] TBH * ALL BUN (10/03/2024 3:51 PM EDT) BLOOD UREA NITROGEN 10.0 7.0 - 18.0 mg/dL TB 10/03/2024 3:51 PM EDT 10/03/2024 4:14 PM EDT Narrative [facility] - 10/03/2024 4:30 PM EDT us Zack Angel DO CLINISYNC Final Result [facility]NC TBH documented in this encounter Visit Diagnoses Not on filedocumented in this encounter
--- OUTSIDE RECORDS SUMMARY | 2024-10-10 14:00 | XMS_ITS | Encounter Summary ---
Author Organization [facility] Address [address] [place] [address] Care Team Providers Care Tanning Wheel Operator Name Role Phone Unavailable Primary Care Provider Unavailabl e Encounter Details Date Type Department Care Team (Late st Contact Info) Description 10/03/2024 Clinisync Result Encounter [facility] External Department Unsolicited Lucía Ortiz DO [address], [facility]11 Social History Tobacco Use Types Packs/Day [...] Routine [facility] Luis Armando OBGYN [address] [place] [phone] Lucía Ortiz DO [address] [place] [place] [address] documented as of this encounter Procedures Procedure Name Priority Date/Time Associated Diagnosis Comments US OB BPP W NON-STRESS 10/03/2024 5:46 PM EDT TBH URINE T PROTEIN CREAT RATIO Routine 10/03/2024 5:10 PM EDT [facility]H PROTHROMBIN TIME INR W/O COUM Routine 10/03/2024 3:51 PM EDT MHPT FIBRINOGEN Routine 10/03/2024 3:51 PM EDT CCF APTT Routine 10/03/2024 3:51 PM EDT documented in this encounter Results * US OB BPP W NON-STRESS (10/03/2024 5:46 PM EDT) Anatomical Region Laterality Modality Other 10/03/2024 5:46 PM EDT Narrative 10/03/2024 5:48 [place] [address] Ultrasound Report Signed Patient: DORIAN RICHMOND MR#: [id number] : 1995 Acct:[id number] Age/Sex: 29 / F ADM Date: Loc: [facility] Attending Dr: Lucía Ortiz D.O. Ordering Physician: Lucía Ortiz D.O. Date of Service: 10/03/24 Procedure(s): US OB BPP w non-stress Accession Number(s): [id number] cc: Lucía Ortiz D.O.; Physician,Non-Staff M.D. The [address] [address] Patient Name: DORIAN RICHMOND MRN: [id number] date: 1995 Sex: F Assigned Patient Location: [facility] Current Patient Location: [facility] Accession/Order Number: [id number] Exam Date: 10/03/2024 17:45 Report Date: 10/03/2024 17:46 At the request of: LUCÍA ORTIZ DO Procedure: US OB BPP w non-stress Ultrasound biophysical profile HISTORY: Elevated blood pressure Adequate breathing movement, gross body movement, tone and amniotic fluid volume for total score of 8 out of 8. The amniotic fluid index is 17.1cm within normal limits. The heart rate 131 bpm. US/US OB BPP w non-stress IMPRESSION: Adequate ultrasound biophysical profile Impression dictated by: Robi Tan M.D. 10/03/2024 5:46 PM Dictation Location: [place] [address] Electronically authenticated by: [id number] Y Date: 10/03/2024 17:46 Dictated By: Robi Tan D.O. Signed By: 10/03/248 DD/ 45 TD/TT: Certified Genetic Counselor: Procedure Note Radiology, Radiologist, - 10/03/2024 [place] [address] Ultrasound Report Signed Patient: DORIAN RICHMOND R#: [id number] : 1995Acct:[id number] Age/Sex: 29 FADM Date: Loc: [facility] [address]: Lucía Ortiz D.O. Ordering Physician: Lucía Ortiz D.O. Date of Service: 10/03/24 Procedure(s): US OB BPP w non-stress Accession Number(s): [id number] cc: Lucía Ortiz D.O.; Physician,Non-Staff James The [place] [address] Patient Name: DORIAN RICHMOND MRN: [id number] date: 1995 Sex: F Assigned Patient Location: [facility] Current Patient Location: [facility] Accession/Order Number: [id number] Exam Date: 10/03/2024 17:45 Report Date: 10/03/2024 17:46 At the request of: LUCÍA ORTIZ DO Procedure: US OB BPP w non-stress Ultrasound biophysical profile HISTORY: Elevated blood pressure Adequate breathing movement, gross body movement, tone and amniotic fluid volume for total score of 8 out of 8. The amniotic fluidindex is 17.1cm within normal limits. The heart rate 131 bpm. US/US OB BPP w non-stress IMPRESSION: Adequate ultrasound biophysical profile Impression dictated by: Robi Tan M.D. 10/03/2024 5:46 PM Dictation Location: [place] [address] Electronically authenticated by: [id number] Y Date: 7:46 Dictated By: Robi Tan D.O. Signed By:10/03/241747 DD/ 45 TD/TT: Certified Genetic Counselor: us Lucía Angel DO [facility] Final Result * (ABNORMAL) TBH URINE T PROTEIN CREAT RATIO (10/03/2024 5:10 PM EDT) TOTAL PROTEIN URINE RANDOM 28.5(H) <=11.9 mg/dL TBH CREATININE URINE RANDOM 60.71 20.00 - 300.00 mg/dL TBH PROTEIN CREATININE RATIO URINE 0.47 TBH 10/03/2024 5:10 PM EDT 10/03/2024 5:33 PM EDT Narrative [facility] - 10/03/2024 5:50 PM EDT us Lucía Angel DO [facility] Final Result Performing Organization Address City/[facility]/ZIP Co de Phone Number [facility] TBH * (ABNORMAL) MHPT FIBRINOGEN (10/03/2024 3:51 PM EDT) FIBRINOGEN 632(H) 200 - 400 mg/dL TBH 10/03/2024 3:51 PM EDT 10/03/2024 4:14 PM EDT Narrative [facility] - 10/03/2024 5:59 PM EDT us Lucía Angel DO [facility] Final Result [facility] * CCF APTT (10/03/2024 3:51 PM EDT) PARTIAL THROMBOPLASTIN TIME 26.1 22.3 - 36.2 sec TBH 10/03/2024 3:51 PM EDT 10/03/2024 4:14 PM EDT Narrative [facility] - 10/03/2024 5:59 PM EDT us Lucía Angel DO [facility] Final Result Performing Organization Address [facility] Co de Phone Number [facility] PR[facility] TIME INR W/O COUM (10/03/2024 3:51 PM EDT) PROTHROMBIN TIME 10.1 9.0 - 11.6 sec TBH TBH INR 0.95 TBH Comment: DESIRED INR: 2.0-3.0 CONDITIONS NOT LISTED BELOW 2.5-3.5 FOR PROSTHETIC HEART VALVE REPLACEMENT 2.5-3.5 RECURRENT THROMBOSIS 10/03/2024 3:51 PM EDT 10/03/2024 4:14 PM EDT Narrative [facility] - 10/03/2024 5:59 PM EDT us Lucía Johnso DO [facility] Final Result [facility] TB documented in this encounter Visit Diagnoses Not on filedocumented in this encounter
--- OUTSIDE RECORDS SUMMARY | 2024-10-10 14:00 | XMS_ITS | Encounter Summary ---
Author Organization [facility] Address [id number] [address] [place] [address] Care Team Providers Care Planetarium Sky Show Technician Name Role Phone Unavailable Primary Care Provider Unavailabl e Encounter Details Date Type Department Care Team (Latest Contact Info) Description 10/04/2024 Travel Social History Tobacco Use Types Packs/Day Years [...] Functional Status documented as of this encounter Plan of Treatment Upcoming Encounters Date Type Department Care Team ( Contact Info) Description 10/18/2024 1:30 PM EDT Support Visit Maternal- Medicine at [facility] [address] [place] [phone] Krista Cruz RN [address] [address] Laura Weaver LD documented as of this encounter Visit Diagnoses Not on filedocumented in this encounter
--- OUTSIDE RECORDS SUMMARY | 2024-10-10 14:00 | XMS_ITS | Encounter Summary ---
Author Organization [facility] Address [address] [place] [address] Care Team Providers Care Electronic Scale Subassembler Name Role Phone Unavailable Primary Care Provider Unavailabl e Encounter Details Date Type Department Care Team (Late st Contact Info) Description 10/04/2024 Clinisync Result Encounter [facility] External Department Unsolicited Zack Ortiz DO [address], [facility]11 Social History Tobacco Use Types Packs/Day [...] [facility] Luis Armando OBGYTyra [address] [place] [phone] Zack Ortiz DO [address] [place] [address] documented as of this encounter Procedures Procedure Name Priority Date/Time Associated Diagnosis Comments TBH CREATININE Routine 10/04/2024 8:46 AM EDT [facility] PROTHROMBIN TIME INR W/O COUM Routine 10/04/2024 8:46 AM EDT MHPT FIBRINOGEN Routine 10/04/2024 8:46 AM EDT CCF AST Routine 10/04/2024 8:46 AM EDT C[facility] APTT Routine 10/04/2024 8:46 AM EDT CCF ALT Routine 10/04/2024 8:46 AM EDT ALL URIC ACID Routine 10/04/2024 8:46 AM EDT ALL LDH Routine 10/04/2024 8:46 AM EDT ALL CBC WITH AUTO DIFF Routine 10/04/2024 8:46 AM EDT ALL BUN Routine 10/04/2024 8:46 AM EDT documented in this encounter Results * (ABNORMAL) MHPT FIBRINOGEN (10/04/2024 8:46 AM EDT) FIBRINOGEN 575(H) 200 - 400 mg/dL TB 10/04/2024 8:46 AM EDT 10/04/2024 8:50 AM EDT Narrative CLINISYNC - 10/04/2024 9:53 AM EDT us Zack Angel DO [facility] Final [facility] * C[facility] APTT (10/04/2024 8:46 AM EDT) PARTIAL THROMBOPLASTIN TIME 26.8 22.3 - 36.2 sec TB 10/04/2024 8:46 AM EDT 10/04/2024 8:50 AM EDT Narrative CLINISYNC - 10/04/2024 9:53 AM EDT Zack Angel BRASWELL Final Result Performing Organization Address [facility] Co de Phone Number [facility] * [facility] PROTHROMBIN TIME INR W/O COUM (10/04/2024 8:46 AM EDT) PROTHROMBIN TIME 10.3 9.0 - 11.6 sec TB TB INR 0.97 TB Comment: DESIRED INR: 2.0-3.0 CONDITIONS NOT LISTED BELOW 2.5-3.5 FOR PROSTHETIC HEART VALVE REPLACEMENT 2.5-3.5 RECURRENT THROMBOSIS 10/04/2024 8:46 AM EDT 10/04/2024 8:50 AM EDT Narrative CLINISYNC - 10/04/2024 9:53 AM EDT Zack Angel KAITLIN Final Result Performing Organization Address [facility] Co de Phone Number [facility] * (ABNORMAL) ALL CBC WITH AUTO DIFF (10/04/2024 8:46 AM EDT) TBH WBC 12.5(H) 4.0 - 11.0 10 3/uL TBH TBH RBC 4.38 4.20 - 5.40 10 6/uL TBH TBH HGB 12.3 12.0 - 16.0 g/dL TB TB HCT 35.8(L) 36.0 - 48.0 % TBH TB MCV 81.7 81.0 - 99.0 fL TBH TBH MCH 28.1 26.7 - 34.0 pg TBH TB MCHC 34.4 29.9 - 35.2 g/dL TBH TB RDW 14.2 11.0 - 15.0 % TBH TBH PLT 265 150 - 450 10 3/uL TBH TBH MPV 9.9 9.5 - 13.5 fL TBH NEUTROPHILS PERCENT AUTO 70.9 43.0 - 75.0 % TBH LYMPHOCYTES PERCENT AUTO 21.0 20.5 - 60.0 % TBH MONOCYTES PERCENT AUTO 4.8 1.7 - 12.0 % TBH TBH EO % 2.5 0.9 - 7.0 % TBH BASOPHILS PERCENT AUTO 0.4 0.2 - 2.0 % TBH IMMATURE GRANULOCYTES PCT AUTO 0.4 0.0 - 0.5 % TBH NEUTROPHILS ABSOLUTE AUTO 8.9(H) 1.4 - 6.5 10 3/uL TBH LYMPHOCYTES ABSOLUTE AUTO 2.6 1.2 - 3.8 10 3/uL TBH MONOCYTES ABSOLUTE AUTO 0.6 0.3 - 0.8 10 3/uL TBH TBH EO # 0.3 0.0 - 0.7 10 3/uL TBH BASOPHILS ABSOLUTE AUTO 0.1 0.0 - 0.1 10 3/uL TBH IMMATURE GRANULOCYTES ABS AUTO 0.05(H) 0.00 - 0.03 10 3/uL TBH 10/04/2024 8:46 AM EDT 10/04/2024 8:50 AM EDT Narrative CLINISYNC - 10/04/2024 9:51 AM EDT us Zack Angel DO CLINIS[facility]NC Final Result [facility] * ALL LDH (10/04/2024 8:46 AM EDT) LACTATE DEHYDROGENASE 153 81 - 234 U/L TBH 10/04/2024 8:46 AM EDT 10/04/2024 8:50 AM EDT Narrative CLINISYNC - 10/04/2024 9:35 AM EDT us Zack Angel DO [facility]IN[facility]NC Final Result [facility] * CCF ALT (10/04/2024 8:46 AM EDT) ALANINE AMINOTRANSFERASE 14 14 - 59 U/L TBH 10/04/2024 8:46 AM EDT 10/04/2024 8:50 AM EDT Narrative CLINISYNC - 10/04/2024 9:33 AM EDT Zack Angel DO CLINISYNC Final Result CLINISYNC TB * (ABNORMAL) CCF AST (10/04/2024 8:46 AM EDT) ASPARTATE AMINO TRANSFERASE 14(L) 15 - 37 U/L TBH 10/04/2024 8:46 AM EDT 10/04/2024 8:50 AM EDT Narrative CLINISYNC - 10/04/2024 9:33 AM EDT Zack Angel DO CLINISYNC Final Result Performing Organization Address [facility] Co de Phone [facility] * ALL URIC ACID (10/04/2024 8:46 AM EDT) URIC ACID 5.4 2.6 - 6.0 mg/dL TB 10/04/2024 8:46 AM EDT 10/04/2024 8:50 AM EDT Narrative CLINISYNC - 10/04/2024 9:33 AM EDT Zack Johnso DO CLINISYNC Final Result Performing Organization Address [facility] Co de Phone Number SHAHZADMA TB * TBH CREATININE (10/04/2024 8:46 AM EDT) CREATININE 0.75 0.55 - 1.02 mg/dL TBH TBH EGFR-AF [place] >60 >=60 mL/min/1.7 3m 2 TBH TBH EGFR-NON AF [place] >60 >=60 mL/min/1.7 3m 2 TBH 10/04/2024 8:46 AM EDT 10/04/2024 8:50 AM EDT Narrative CLINISYNC - 10/04/2024 9:33 AM EDT Zack Angel DO CLINISYNC Final Result CLINISYMA TB * (ABNORMAL) ALL BUN (10/04/2024 8:46 AM EDT) BLOOD UREA NITROGEN 6.0(L) 7.0 - 18.0 mg/dL TBH 10/04/2024 8:46 AM EDT 10/04/2024 8:50 AM EDT Narrative CLINISYNC - 10/04/2024 9:33 AM EDT us Zack Johnso DO CLINISYNC Final Result [facility] documented in this encounter Visit Diagnoses Not on filedocumented in this encounter
--- OUTSIDE RECORDS SUMMARY | 2024-10-10 14:00 | XMS_ITS | Encounter Summary ---
Author Organization [facility] Address [address] [place] [address] Care Team Providers Care Extrusion Bender Name Role Phone Unavailable Primary Care Provider Unavailabl e Encounter Details Date Type Department Care Team (Late st Contact Info) Description 10/03/2024 Telephone [facility] Luis Armando OBGYN [address] [place] [address] [place] [phone] Jane Lang LPN Social History Tobacco [...] encounter Miscellaneous Notes * Telephone Encounter - Nayeli Randle LPN - 10/05/2024 9:58 AM EDT Referral sent and patient notified via letter through [employer]--ss * Telephone Encounter - Jane Lang LPN - 10/03/2024 3:02 PM EDT Please refer to [facility] for diabetic management and insulin prescription documented in this encounter Plan of Treatment Upcoming Encounters Date Type Department Care Team (Late st Contact Info) Description 10/17/2024 1:30 PM EDT Routine [facility] Luis Armando OBCRIS [address] [place] [phone] Zack Ortiz DO [address] [place] [address] documented as of this encounter Visit Diagnoses Not on filedocumented in this encounter
--- OUTSIDE RECORDS SUMMARY | 2024-10-10 14:00 | XMS_ITS | Encounter Summary ---
Author Organization [facility] Address [address] [place] [address] Care Team Providers Care Applications Architect Name Role Phone Unavailable Primary Care Provider Unavailabl e Encounter Details Date Type Department Care Team (Late Contact Info) Description 05/31/2024 Abstract GREG MANZANO [facility] [place] [address] Zack Ortiz DO [facility] [address], [facility]11 Social History Tobacco Use Types Packs/Day [...] 10/17/2024 1:30 PM EDT Routine GREG MANZANO [facility] [place] [address] Zack Ortiz DO [address] [address] documented as of this encounter Visit Diagnoses Not on filedocumented in this encounter
--- OUTSIDE RECORDS SUMMARY | 2024-10-10 14:29 | XMS_ITS | CCD ---
Author Organization [facility] Care Team Providers Care Pet Care Associate Name Role Phone DR RORO GARNER Attending Unavailable DR RORO GARNER Consulting Unavailable DR RORO GARNER Admitting Unavailable MISC, DR TOPETE Primary Care Unavailable Ann-Marie Romero Primary Care Physician [phone] NO FAMILY, PHYSICIAN Primary Care Provider Unava MD Presley Mccarthy Admit Provider MD Presley Timmons Attending Provider NONE, XXXX Primary Care Physician Unavailab Hosea Conklin Primary Care Physician Unavail able Presley Timmons Attending Unavailable Presley Timmons Admitting Unavailable NO FAMILY, PHYSICIAN Primary Care Unavailable REY ALAS Primary Care Physician Sandro, Alva George Attending Unavailable Jagdish Dunn Attending Unavailable DAVINA ALAS Attending Unav ailable DAVINA ALAS Attending Unav ailable DAVINA ALAS Attending Unav ailable DAVINA ALAS Attending Unav ailable DAVINA ALAS Attending Unav ailable DAVINA ALAS Referring Unav ailable DAVINA ALAS Admitting Unav ailable Alva Jo Attending Unavailable DAVINA ALAS Attending Unav ailable DAVINA ALAS Attending Unav ailable Unavailable Primary Care Provider Unavailabl e Virk DDS, Yixue Attending Unavailable Virk DDS, Yixue Unavailable Unavailable Virk DDS, Yixue Unavailable Unavailable ANGEL, ZACK Attending Unavailable MANASA CONROY Referring Unavailable GWEN MCCORMICK Attending Unavailable ZACK ORTIZ Attending Unavailable ZACK ORTIZ Referring Unavailable GWEN MCCORMICK Attending Unavailable GWEN MCCORMICK Referring Unavailable ZACK ORTIZ Attending Unavailable ZACK ORTIZ Attending Unavailable Medications Current Medications Medication Drug Class(es) Dates Sig (Normalized) Sig (Original) acetaminophen 325 mg / butalbital 50 mg / caffeine 40 mg oral tablet (17 sources) Barbiturate, Central Nervous System Stimulant, Methylxanthine Start: 09-16-2020 take 1 tablet by mouth every four hours for headache APAP/butalbital/c affeine 325 mg-50 mg-40 mg Tab 1 tab(s), Oral, q4hr for headache, 12 tab(s), Refill(s) 0, [facility]/pharmacy #[id number], 165, cm, 09/15/20 22:47:00 EDT, Height/Length Dosing, 114, kg, 09/15/20 22:47:00 EDT, Weight Dosing Start Date: 09/16/20 Status: Ordered Albuterol (19 sources) beta2-Adrenergic Agonist ALBUTEROL IN Active Albuterol (Eqv-ProAir HFA) 90 mcg/inh inhalation aerosol (6 sources) Start: 07-06-2023 take 1 puff(s) by inhalation every six hours Albuterol (Eqv-ProAir HFA) 90 mcg/inh inhalation aerosol puff(s), Inhalation, q6hr, Refill(s) 0 Start Date: 07/06/23 Status: Ordered albuterol 0.833 mg/ml / ipratropium bromide 0.167 mg/ml inhalation solution (19 sources) Anticholinergic, beta2-Adrenergic Agonist Start: 04-27-2024 take 1 dose by inhalation four times daily ipratropium-albut marco (Duo-Neb) 0.5-2.5 mg/3 mL nebulizer solution INHALE 1 VIAL VIA NEBULIZER 4 TIMES A DAY 04/27/2024 Active amoxicillin 500 mg oral capsule (1 source) Penicillin-class Antibacterial Start: 04-18-2024 End: 04-25-2024 take 2 capsules by mouth every twelve hours amoxicillin 500 mg Cap 1,000 mg = 2 cap(s), Oral, q12hr, X 7 day(s), # 28 cap(s), Refills(s) 0, Pharmacy: [facility]/pharmacy #[id number], 165, cm, 04/18/24 11:46:00 EST, Height/Length Dosing, 124.5, kg, 04/18/24 11:46:00 EST, Weight Dosing Start Date: 04/18/24 Stop Date: 04/25/24 Status: Ordered atogepant 60 MG Oral Tablet [Qulipta] (1 source) Start: 07-21-2023 take 1 tablet by mouth once daily Qulipta 60 mg oral tablet 60 mg = 1 tab(s), Oral, Daily, # 30 tab(s), Refills(s) 3, [id number] 165.1, cm, 07/08/23 12:52:00 EDT, Height/Length Dosing, 127, kg, 07/08/23 12:52:00 EDT, Weight Dosing Start Date: 07/21/23 Status: Ordered Blood Glucose Monitoring Suppl (D-Care Glucometer) w/Device kit (19 sources) Start: 06-18-2024 End: 06-18-2025 Blood Glucose Monitoring Suppl (D-Care Glucometer) w/Device kit Indications: Gestational diabetes mellitus (GDM), antepartum, gestational diabetes method of control unspecified ([facility]) , Elevated glucose tolerance test 1 kit Daily Use four times daily to check FSBS. In the morning prior to breakfast & 1 hour after each meal for a total of 4times daily. 1 kit 06/18/2024 06/18/2025 Active Start: 06-18-2024 End: 06-18-2025 Blood Glucose Monitoring Sup pl (D-Care Glucometer) w/Device kit Indications: Gestational diabetes mellitus (GDM), antepartum, gestational diabetes method of control unspecified , Elevated glucose tolerance test 1 kit Daily Use four times daily to check FSBS. In the morning prior to breakfast & 1 hour after each meal for a total of 4times daily. 1 kit 06/18/2024 06/18/2025 Active cephalexin 500 mg oral capsule (1 source) Cephalosporin Antibacterial Start: 11-10-2021 End: 11-17-2021 take 1 capsule by mouth every twelve hours Keflex 500 mg Cap 500 mg = 1 cap(s), Oral, q12hr, X 7 day(s), # 14 cap(s), Refills(s) 0, Pharmacy: [facility]/pharmacy #[id number], 165.1, cm, 11/10/21 12:16:00 EDT, Height/Length Dosing, 128, kg, 07/17/21 9:33:00 EDT, Weight Dosing Start Date: 11/10/21 Stop Date: 11/17/21 Status: Ordered ciprofloxacin 500 mg oral tablet (6 sources) Quinolone Antimicrobial Start: 02-17-2022 take 1 tablet by mouth twice daily Cipro 500 mg Tab 500 mg = 1 tab(s), Oral, BID, # 14 tab(s), Refills(s) 0, Pharmacy: [facility]/pharmacy #[id number], 165.1, cm, 02/17/22 16:15:00 EST, Height/Length [...] pain, # 12 caplet(s), Refills(s) 0, Pharmacy: [facility]/pharmacy #[id number], 165, cm, 12/15/20 1:59:00 EDT, Height/Length [...] exceed 8 grams/day/single joint of upper extremities, [facility]/pharmacy #[id number], 165.1, cm, 01/11/23 16:14:00 EST, Height/Length [...] cramping, # 12 cap(s), Refills(s) 0, Pharmacy: [facility]/pharmacy #[id number], 165, cm, 10/17/22 13:07:00 EDT, Height/Length Dosing, 123.3, kg, 10/17/22 13:07:00 EDT, Weight Dosing Start Date: 10/17/22 Status: Ordered Flonase 0.05 mg/inh nasal spray (14 sources) Start: 09-18-2020 take 1 spray(s) nasal route once daily Flonase 0.05 mg/inh nasal spray 1 spray(s), Nasal, Daily, 16 gram, Refill(s) 3, each nostril, [facility]/pharmacy #[id number], 165, cm, 09/18/20 9:51:00 EDT, Height/Length Dosing, 116, kg, 09/18/20 9:51:00 EDT, Weight Dosing Start Date: 09/18/20 Status: Ordered fluticasone propionate 0.05 mg/actuat metered dose nasal spray (3 sources) Corticosteroid Start: 09-18-2020 take 1 spray(s) nasal route once daily Flonase 0.05 mg/inh nasal spray 1 spray(s), Nasal, Daily, 16 gram, Refill(s) 3, each nostril, [facility]/pharmacy #[id number], 165, cm, 09/18/20 9:51:00 EDT, Height/Length Dosing, 116, kg, 09/18/20 9:51:00 EDT, Weight Dosing Start Date: 09/18/20 Status: Ordered ibuprofen 600 mg oral tablet (1 source) Nonsteroidal Anti-inflammatory Drug Start: 09-14-2021 take 600 mg by mouth every six hours Ibuprofen Active 600 MG PO Q6H September 14, 2021 12:00am isopropyl alcohol 0.7 ml/ml medicated pad (19 sources) Start: 06-18-2024 Alcohol Swabs (Alcohol Prep Pad) 70 % pads Indications: Gestational diabetes mellitus (GDM), antepartum, gestational diabetes method of control unspecified ([facility]) , Elevated glucose tolerance test Apply 1 Pad topically Daily Use four times daily to check FSBS. 150 each 3 06/18/2024 Active labetalol hydrochloride 300 mg oral tablet (2 sources) beta-Adrenergic Mariely Start: 10-08-2024 End: 10-08-2025 take 1 tablet by mouth in the morning, then take 1 tablet by mouth in the evening, then take 1 tablet by mouth at bedtime labetalol (Normodyne) 300 MG tablet Indications: Hypertension affecting in third trimester ([facility]) Take 1 tablet (300 mg) by mouth in the morning and 1 tablet (300 mg) in the evening and 1 tablet (300 mg) before bedtime. 90 tablet 11 10/08/2024 10/08/2025 Active 12 hr loratadine 5 mg / pseudoephedrine sulfate 120 mg extended release oral tablet (20 sources) alpha-Adrenergic Agonist Start: 07-08-2023 End: 07-18-2023 loratadine-pseudoep hedrine 5 mg-120 mg ER Tab 1 tab(s), Oral, q12hr for 10 day(s), 20 tab(s), Refill(s) 0, [facility]/pharmacy #[id number], 165.1, cm, 07/08/23 12:52:00 EDT, Height/Length Dosing, 127, kg, 07/08/23 12:52:00 EDT, Weight Dosing Start Date: 07/08/23 Stop Date: 07/18/23 Status: Ordered Start: 07-08-2023 take 1 tablet by lencho th every twelve hours [facility] Allergy Relief-D12 5-120 MG 12 hr tablet Take 1 tablet by mouth every 12 (twelve) hours 07/08/2023 Active meclizine hydrochloride 25 mg oral tablet (20 sources) Antiemetic Start: 07-08-2023 meclizine (Antivert) 25 MG tablet Take 25 mg by mouth 07/08/2023 Active metroNIDAZOLE 500 mg oral tablet (1 source) Nitroimidazole Antimicrobial Start: 02-17-2022 End: 02-24-2022 take 1 tablet by mouth every eight hours Flagyl 500 mg Tab 500 mg = 1 tab(s), Oral, q8hr, X 7 day(s), # 21 tab(s), Refills(s) 0, Pharmacy: [facility]/pharmacy #[id number], 165.1, cm, 02/17/22 16:15:00 EST, Height/Length [...] BID, # 28 tab(s), Refills(s) 0, Pharmacy: [facility]/pharmacy #[id number], 165, cm, 12/15/20 1:59:00 EDT, Height/Length Dosing, 113, kg, 12/15/20 1:59:00 EDT, Weight Dosing Start Date: 12/15/20 Status: Ordered Start: 10-01-2020 take 1 tablet by lencho th twice daily as needed for pain Naprosyn 500 mg Tab 500 mg = 1 tab(s), Oral, BID, PRN for pain, # 20 tab(s), Refills(s) 0, Pharmacy: [facility]/pharmacy #[id number], 165.1, cm, 11/10/21 12:16:00 EDT, Height/Length Dosing, 128, kg, 07/17/21 9:33:00 EDT, Weight Dosing Start Date: 11/10/21 Status: Ordered phenazopyridine hydrochloride 200 mg oral tablet (1 source) Start: 11-10-2021 End: 11-12-2021 take 1 tablet by mouth three times daily Pyridium 200 mg Tab 200 mg = 1 tab(s), Oral, TID, X 2 day(s), # 6 tab(s), Refills(s) 0, Pharmacy: [facility]/pharmacy #[id number], 165.1, cm, 11/10/21 12:16:00 EDT, Height/Length [...] q6hr, # 14 tab(s), Refills(s) 0, Pharmacy: [facility]/pharmacy #[id number], 165, cm, 06/04/21 14:38:00 EDT, Height/Length Dosing, 123, kg, 06/04/21 14:38:00 EDT, Weight Dosing Start Date: 06/04/21 Status: Ordered SUMAtriptan 25 mg oral tablet (20 sources) Serotonin-1b and Serotonin-1d Receptor Agonist Start: 07-06-2023 SUMAtriptan (Imitrex) 25 MG tablet Take 25 mg by mouth 07/06/2023 Active terconazole 4 mg/ml vaginal cream (3 sources) Azole Antifungal Start: 09-11-2024 End: 09-18-2024 terconazole (Terazol 7) 0.4 % vaginal cream Indications: Yeast infection Insert 1 applicator into the vagina at bedtime for 7 days 45 g 09/11/2024 09/18/2024 Active tiZANidine 4 mg oral tablet (2 sources) Central alpha-2 Adrenergic Agonist Start: 01-11-2023 End: 01-16-2023 take 1 tablet by mouth every eight hours Zanaflex 4 mg Tab 4 mg = 1 tab(s), Oral, q8hr, X 5 day(s), # 15 tab(s), Refills(s) 0, Pharmacy: [facility]/pharmacy #[id number], 165.1, cm, 01/11/23 16:14:00 EST, Height/Length Dosing, 127, kg, 01/11/23 16:14:00 EST, Weight Dosing Start Date: 01/11/23 Stop Date: 01/16/23 Status: Ordered Ventolin HFA 90 mcg/inh Aerosol-Adpt (1 source) Start: 04-18-2024 take 1 puff(s) by inhalation every six hours for wheezing Ventolin HFA 90 mcg/inh Aerosol-Adpt 1 puff(s), Inhalation, q6hr for wheezing, 18 gram, Refill(s) 0, [facility]/pharmacy #[id number], 165, cm, 04/18/24 11:46:00 EST, Height/Length Dosing, 124.5, kg, 04/18/24 11:46:00 EST, Weight Dosing Start Date: 04/18/24 Status: Ordered Zofran ODT 4 mg Tab-Dis (20 sources) Start: 10-17-2022 take 1 tablet by mouth every eight hours as needed for nausea Zofran ODT 4 mg Tab-Dis 4 mg = 1 tab(s), Oral, q8hr, PRN Nausea/Vomiting, # 16 tab(s), Refills(s) 0, Pharmacy: [facility]/pharmacy #[id number], 165, cm, 10/17/22 13:07:00 EDT, Height/Length Dosing, 123.3, kg, 10/17/22 13:07:00 EDT, Weight Dosing Start Date: 10/17/22 Status: Ordered Start: 02-17-2022 take 1 tablet by lencho th every six hours as needed for nausea Zofran ODT 4 mg Tab-Dis 4 mg = 1 tab(s), Oral, q6hr, PRN Nausea/Vomiting, # 12 tab(s), Refills(s) 0, Pharmacy: [facility]/pharmacy #[id number], 165.1, cm, 02/17/22 16:15:00 EST, Height/Length Dosing, 122, kg, 02/17/22 16:15:00 EST, Weight Dosing Start Date: 02/17/22 Status: Ordered Start: 02-25-2021 take 1 tablet by lencho th every eight hours Zofran ODT 4 mg Tab-Dis 4 mg = 1 tab(s), Oral, q8hr, # 12 tab(s), Refills(s) 0, [id number], cm, 02/24/21 23:21:00 EST, Height/Length Dosing, 112, kg, 02/24/21 23:21:00 EST, Weight Dosing Start Date: 02/25/21 Status: Ordered Start: 09-16-2020 take 1 tablet by lencho th every eight hours Zofran ODT 4 mg Tab-Dis 4 mg = 1 tab(s), Oral, q8hr, # 10 tab(s), Refills(s) 0, Pharmacy: [facility]/pharmacy #[id number], 165, cm, 09/15/20 22:47:00 EDT, Height/Length Dosing, 114, kg, 09/15/20 22:47:00 EDT, Weight Dosing Start Date: 09/16/20 Status: Ordered Completed/Discontinued Medications Medication Drug Class(es) Dates Sig (Normalized) Sig (Original) insulin isophane, human 100 unt/ml injectable suspension (2 sources) Start: 10-03-2024 End: 10-03-2024 inject 5 [IU] by subcutaneous injection in the morning insulin NPH, Isophane, (HumuLIN N,NovoLIN N) 100 UNIT/ML injection Indications: Gestational Diabetes Inject 5 Units under the skin in the morning and 5 Units in the evening. Inject before meals. 3 mL 10/03/2024 10/03/2024 Discontinued (Entered in error) insulin isophane, human 70 unt/ml / insulin, regular, human 30 unt/ml injectable suspension (2 sources) Insulin Start: 10-03-2024 End: 10-03-2024 inject 5 [IU] by subcutaneous injection in the morning insulin NPH-insulin regular (NovoLIN) (70-30) 100 UNIT/ML injection Indications: Gestational Diabetes Inject 5 Units under the skin in the morning and 5 Units in the evening. Inject before meals. 3 mL 10/03/2024 10/03/2024 Discontinued (Entered in error) sodium chloride 0.111 meq/ml nasal spray (17 sources) Start: 09-18-2020 [place] Saline Mist 0.65% nasal spray 2 spray(s), Nasal, QID, 1 EA, Refill(s) 4, [id number], 165, cm, 09/18/20 9:51:00 EDT, Height/Length Dosing, 116, kg, 09/18/20 9:51:00 EDT, Weight Dosing Start Date: 09/18/20 Status: Ordered Start: 09-18-2020 [place] Saline Mis t 0.65% nasal spray 2 spray(s), Nasal, QID, 1 EA, Refill(s) 4, [facility] #[id number], 165, cm, 09/18/20 9:51:00 EDT, Height/Length Dosing, 116, kg, 09/18/20 9:51:00 EDT, Weight Dosing Start Date: 09/18/20 Status: Ordered Problems Active Problems Problem Classification Problem Date Documented Da te Episodic/Chronic Abdominal pain (2 sources) Abdominal pain; Translations: [Unspecified abdominal pain] Onset: 3 Episodic Asthma (20 sources) Asthma 08-02-2013 Chronic Conditions associated with dizziness or vertigo (20 sources) Dizziness; Translations: [Dizziness and giddiness] Onset: 4 09-30-2020 Episodic Diabetes mellitus without complication (1 source) Abnormal glucose tolerance test; Translations: [Other abnormal glucose] 06-18-2024 Episodic Diabetes or abnormal glucose tolerance complicating ; childbirth; or the puerperium (5 sources) Gestational diabetes mellitus; Translations: [Gestational diabetes mellitus in , unspecified control] 06-18-2024 Episodic Headache; including migraine (13 sources) Migraine; Translations: [Migraine, unspecified, not intractable, without status migrainosus] Onset: 3 Chronic Headache; including migraine (2 sources) Headache; Translations: [Headache, unspecified] Onset: 3 Episodic Hypertension complicating ; childbirth and the puerperium (2 sources) Hypertension complicating ; Translations: [Unspecified maternal hypertension, third trimester] 10-08-2024 Chronic Immunizations and screening for infectious disease (2 sources) Exposure to sexually transmissible disorder; Translations: [Contact with and (suspected) exposure to infections with a predominantly sexual mode of transmission] 08-20-2024 Episodic Malaise and fatigue (1 source) Weakness; Translations: [WEAKNESS] Onset: 2 Episodic Menstrual disorders (1 source) Missed period; Translations: [Irregular menstruation, unspecified] 05-17-2024 Chronic Nausea and vomiting (4 sources) Nausea with vomiting, unspecified; Translations: [Nausea and vomiting] Onset: 2 Episodic Noninfectious gastroenteritis (1 source) Noninfectious enteritis; Translations: [Noninfective gastroenteritis and colitis, unspecified] Onset: 3 Episodic Other aftercare (20 sources) Surgical follow-up 10-03-2020 Episodic Other and unspecified benign neoplasm (1 source) Melanocytic nevus; Translations: [Melanocytic nevi, unspecified] Onset: 4 Episodic Other and unspecified benign neoplasm (3 sources) Benign neoplasm of soft tissue 10-10-2023 Episodic Other complications of (4 sources) Other specified related conditions, first trimester; Translations: [OTH SPEC PREG RELATED COND 1ST TRI] Onset: 1 Episodic Other complications of (1 source) Vomiting of ; Translations: [Vomiting of , unspecified] Episodic Other complications of (1 source) Complication of , childbirth and/or the puerperium; Translations: [Other specified diseases and conditions complicating childbirth] Episodic Other complications of (2 sources) size does not accord with dates; Translations: [Uterine size-date discrepancy, second trimester] 09-17-2024 Episodic Other connective tissue disease (2 sources) Pain of right lower leg; Translations: [Pain in right lower leg] Onset: 2 Episodic Other connective tissue disease (2 sources) Pain of left lower leg; Translations: [Pain in left lower leg] Onset: 2 Episodic Other endocrine disorders (20 sources) Polycystic ovary syndrome 04-16-2019 Chronic Other female genital disorders (2 sources) History of past delivery; Translations: [Status post vaginal delivery] 09-14-2021 Episodic Other gastrointestinal disorders (1 source) Diarrhea; Translations: [Diarrhea, unspecified] Onset: 3 Episodic Other liver diseases (20 sources) Enzyme level - finding 11-12-2019 Episodic Other nutritional; endocrine; and metabolic disorders (6 sources) Body mass index 40+ - severely obese; Translations: [Body mass index (BMI) 40.0-44.9, adult] Onset: 2 Chronic Other nutritional; endocrine; and metabolic disorders (1 source) Morbid obesity; Translations: [Morbid (severe) obesity due to excess calories] Onset: 4 Chronic Other and delivery including normal (12 sources) Normal ; Translations: [Encounter for supervision of normal , unspecified, unspecified trimester] Onset: 2 Episodic Other screening for suspected conditions (not mental disorders or infectious disease) (8 sources) Alpha-fetoprotein blood test status; Translations: [Encounter for screening for raised alphafetoprotein level] Onset: 5 07-23-2024 Episodic Other skin disorders (20 sources) Mass of skin 02-13-2020 Episodic Other upper respiratory infections (3 sources) Acute pharyngitis; Translations: [Acute pharyngitis, unspecified] Onset: 2 Episodic Otitis media and related conditions (20 sources) Otitis media 09-30-2020 Episodic Pneumonia (except that caused by tuberculosis or sexually transmitted disease) (1 source) Pneumonia; Translations: [Pneumonia, unspecified organism] Onset: 5 Episodic Residual codes; unclassified (1 source) 9 weeks gestation of ; Translations: [9 WEEKS GESTATION OF ] Onset: 2 Episodic Residual codes; unclassified (1 source) General finding of observation of patient; Translations: [Other general symptoms and signs] Onset: 2 Episodic Residual codes; unclassified (1 source) Gestation [...] state, incidental] 09-14-2021 Episodic Residual codes; unclassified (4 sources) Patient encounter status; Translations: [Other specified health status] Onset: 4 Episodic Residual codes; unclassified (1 source) Gestation period, 15 weeks; Translations: [15 weeks gestation of ] 06-18-2024 Episodic Residual codes; unclassified (2 sources) Gestation period, 20 weeks; Translations: [20 weeks gestation of ] 07-23-2024 Episodic Residual codes; unclassified (2 sources) Gestation period, 24 weeks; Translations: [24 weeks gestation of ] 08-20-2024 Episodic Residual codes; unclassified (2 sources) Gestation period, 28 weeks; Translations: [28 weeks gestation of ] 09-17-2024 Episodic Residual codes; unclassified (2 sources) Gestation period, 31 weeks; Translations: [31 weeks gestation of ] 10-08-2024 Episodic Screening and history of mental health and substance abuse codes (1 source) Personal history of nicotine dependence; Translations: [PERSONAL HISTORY OF NICOTINE DEPEND] Onset: 2 Episodic Sprains and strains (1 source) Injury of muscle and tendon at neck level; Translations: [Strain of muscle, fascia and tendon at neck level, initial encounter] Onset: 3 Episodic Substance-related disorders (1 source) Smoker 04-18-2024 Chronic Comment on above: Added secondary to d ocumentation in Social History. Unclassified (1 source) Obesity complicating , third trimester; Translations: [Obesity complicating , third trimester] Onset: 2 Urinary tract infections (1 source) Urinary tract infectious disease; Translations: [Urinary tract infection, site not specified] Onset: 2 Episodic Past or Other Problems Problem Classification Problem Date Documented Da te Episodic/Chronic Unclassified (20 sources) Onset: 11-01-2020 Resolved: 11-14-2021 06-13-2021 Unclassified (1 source) DL (chief complaint) Onset: 08-15-2024 Unclassified (1 source) ext (chief complaint) Onset: 08-21-2024 Results Test Name Value Interpretation Reference Range Facility Urinalysis macro (dipstick) panel (U)on 10-08-2024 Bilirubin, UA Negative Negative - 4(70) +++ mg/dL [facility] Blood, UA Negative Negative - 50 Yossi/mcL [facility] Clarity, UA Clear [facility] Color, UA Yellow [facility] Glucose, UA Negative Negative - 2000(110) ++++ mg/dL [facility] Interpretation and review of laboratory results Abnormal [facility] Ketones, UA Negative Negative - 160(16) ++++ mg/dL [facility] Leukocytes, UA Negative Negative - 500+++ Wild/mcL [facility] Nitrite, UA Negative Negative - Positive [facility] pH, UA 6 5 - 9 [facility] Protein, UA Negative Negative - 2000(20) ++++ mg/dL [facility] Spec Grav, UA 1.03 1 - 1.03 [facility] Urobilinogen, UA 1.0 0.2 - 12 mg/dL [facility] ALL BUNon 10-04-2024 Urea nitrogen [Mass/Vol] 6 mg/dL Low 7.0 - 18.0 mg/dL [facility] ALL URIC ACIDon 10-04-2024 Urate [Mass/Vol] 5.4 mg/dL 2.6 - 6.0 mg/dL [facility] [place] 10-04-2024 ALT [Catalytic activity/Vol] 14 U/L 14 - 59 U/L [facility] [place] 10-04-2024 AST [Catalytic activity/Vol] 14 U/L Low 15 - 37 U/L [facility] No Panel Informationon 10-04 Interpretation and review of laboratory results Abnormal [facility] CREATININEon 10-04-2024 Creatinine [Mass/Vol] 0.75 mg/dL 0.55 - 1.02 mg/dL [facility] GFR/1.73 sq M.predicted CKD-EPI (S/P/Bld) [Vol rate/Area] >60 >=60 mL/min/1.73m 2 [facility] EGFR-NON AF NEPALESE >60 >=60 mL/min/1.73m 2 [facility] ALL BUNon 10-03-2024 Urea nitrogen [Mass/Vol] 10 mg/dL 7.0 - 18.0 mg/dL [facility] ALL URIC ACIDon 10-03-2024 Urate [Mass/Vol] 5.3 mg/dL 2.6 - 6.0 mg/dL [facility] CC [place] 10-03-2024 ALT [Catalytic activity/Vol] 14 U/L 14 - 59 U/L [facility] [place] 10-03-2024 AST [Catalytic activity/Vol] 13 U/L Low 15 - 37 U/L [facility] Interpretation and review of laboratory results Abnormal [facility] No Panel Informationon 10-03 [facility] CREATININEon 10-03-2024 Creatinine [Mass/Vol] 0.84 mg/dL 0.55 - 1.02 mg/dL [facility] GFR/1.73 sq M.predicted CKD-EPI (S/P/Bld) [Vol rate/Area] >60 >=60 mL/min/1.73m 2 [facility] EGFR-NON AF NEPALESE >60 >=60 mL/min/1.73m 2 [facility] US OB BPP W NON-STRESS on 10-03-2024 [place] [address] Ultrasound Report Signed Patient: SABRINA RICHMOND MR#: [id number] : 1995 Acct:[id number] Age/Sex: 29 / F ADM Date: Loc: [facility] 251-[address]: Zack Ortiz D.O. Ordering Physician: Zack Ortiz D.O. Date of Service: 10/03/24 Procedure(s): US OB BPP w non-stress Accession Number(s): [id number] cc: Zack Ortiz D.O.; Physician,Non-Staff [place] [address] Patient Name: SABRINA RICHMOND MRN: [facility]:[id number] date: 1995 Sex: F Assigned Patient Location: [facility] Current Patient Location: [facility] Accession/Order Number: [id number] Exam Date: 10/03/2024 17:45 Report Date: 10/03/2024 17:46 At the request of: ZACK ORTIZ DO Procedure: US OB BPP w [...] Tan M.D. 10/03/2024 5:46 PM Dictation Location: [facility] Electronically authenticated by: [id number] Y Date: 10/03/2024 17:46 Dictated By: Robi Tan D.O. Signed By: 10/03/241747 DD/ 45 TD/TT: Sales Development Associate: [facility] Radiology, Radiologist, MD - 10/03/2024 [place] [address] Ultrasound Report Signed Patient: SABRINA RICHMOND MR#: [id number] : 1995 Acct:[id number] Age/Sex: 29 / F ADM Date: Loc: [facility] 251-[address]: Zack Ortiz D.O. Ordering Physician: Zack Ortiz D.O. Date of Service: 10/03/24 Procedure(s): US OB BPP w non-stress Accession Number(s): [id number] cc: Zack Ortiz D.O.; Physician,Non-Staff [place] [id number] Patient Name: SABRINA RICHMOND MRN: [facility]:[id number] date: 1995 Sex: F Assigned Patient Location: [facility] Current Patient Location: [facility] Accession/Order Number: [id number] Exam Date: 10/03/2024 17:45 Report Date: 10/03/2024 17:46 At the request of: ZACK ORTIZ DO Procedure: US OB BPP w [...] Tan M.D. 10/03/2024 5:46 PM Dictation Location: [employer] Electronically authenticated by: [id number] Y Date: 10/03/2024 17:46 Dictated By: Robi Tan D.O. Signed By: 10/03/241747 DD/ 45 TD/TT: Sales Development Associate: [facility] Radiology Study observation (narrative) [facility] US OB BPP W NON-STRESS Ordered By: Radiologist Radiology on 10-03-2024 [facility] Work Phone: US OB FOLLOW UP TRANSABDOMIN AL APPROACHon 10-03-2024 US OB FOLLOW UP TRANSABDOMINAL APPROACH EXAM: US OB FOLLOW UP TRANSABDOMINAL APPROACH [...] II, MD, PHD at 04-Oct-2024 08:06:58 AM [facility] Normal Not Available Comment on above: Order Comment: US OB SCAN FOR GROWTH Estimated Date of Delivery: 12/06/24 Gestational Age as of 09/17/2024: 28w4d Urinalysis macro (dipstick) panel (U)on 10-03-2024 Bilirubin, UA Negative Negative - 4(70) +++ mg/dL [facility] Blood, UA Negative Negative - 50 Yossi/mcL [facility] Clarity, UA Clear [facility] Color, UA Yellow [facility] Glucose, UA Negative Negative - 1999(110) ++++ mg/dL [facility] Interpretation and review of laboratory results Abnormal [facility] Ketones, UA Negative Negative - 160(16) ++++ mg/dL [facility] Leukocytes, UA Positive Negative - 500+++ Wild/mcL [facility] Comment on above: 2+ Nitrite, UA Negative Negative - Positive [facility] pH, UA 6 5 - 9 [facility] Protein, UA Negative Negative - 1999(20) ++++ mg/dL [facility] Spec Grav, UA 1.01 1 - 1.03 [facility] Urobilinogen, UA 0.2 0.2 - 12 mg/dL [facility] US OB LIMITED 1+ FETUSESon 0 08-29-2024 US OB LIMITED 1+ FETUSES FINDINGS: Single viable intrauterine . Cerebellar and posterior fossa contents appear appropriate for age. Right ventricular and left ventricular outflow tracts are grossly adequately visualized for this age. IMPRESSION: No significant abnormality. TRANSCRIBED BY: ELECTRONICALLY SIGNED BY: Kahlil Solis MD Normal Not Available Comment on above: Order Comment: US OB INCOMPLETE ANATOMY Estimated Date of Delivery: 12/06/24 Gestational Age as of 08/20/2024: 24w4d IGP,APTIMA HPV,AGE GDLNon AGE GDLN ACOG TESTING Note . [facility] Comment on above: TESTS RESULT FLAG UN ITS REF RANGE LAB Clinician Provided Cytology Information Source.............Cervix No. of containers..01 ThinPrep Vial Age Algo ACOG Haydee... FLAG LEGEND: L-Low Normal,H-High Normal,LL-Alert Low,HH-Alert High <-Panic Low,>-Panic High,A-Abnormal,AA-Critical Abnormal Performed at: 01 =[address] [address] Glory Schaffer MD, HPV APTIMA Negative Negative [facility] Comment on above: This nucleic acid am plification test detects fourteen high- risk HPV types (16,18,31,33,35,39,45,51,52,56,58,59,66,68) without differentiation. Performed at: =[address] [id number] Tax Processor: Glory Schaffer MD, Phone: [phone] Performed at: [address] [id number] Tax Processor: Glory Schaffer MD, Phone: [phone] IGP, APTIMA HPV, RFX 16/18,45 Note . [facility] Comment on above: TESTS RESULT FLAG UN ITS REF RANGE LAB DIAGNOSIS: 02 NEGATIVE FOR INTRAEPITHELIAL LESION OR MALIGNANCY. Specimen adequacy: 02 Satisfactory for evaluation. No endocervical component is identified. Performed by: 02 Tai Darling, Sales Project Coordinator (ASCP) . 02 Note: Note 02 The Pap smear is a screening test designed to aid in the detection of premalignant and malignant conditions of the uterine cervix. It is not a diagnostic procedure and should not be used as the sole means of detecting cervical cancer. Both false-positive and false-negative reports do occur. Test Methodology: Note 02 This liquid based ThinPrep(R) pap test was screened with the use of an image guided system. HPV Genotype Reflex Note 02 Criteria not met, HPV Genotype not performed. FLAG LEGEND: L-Low Normal,H-High Normal,LL-Alert Low,HH-Alert High <-Panic Low,>-Panic High,A-Abnormal,AA-Critical Abnormal Performed at: 02 [facility] [address] [address] Glory Schaffer MD, BRUSH-SPATULA CERVIX [facility] RECURRENT VAGINITIS (HTRX)on 08-21-2024 ATOPOBIUM VAGINAE 0 [facility] ATOPOBIUM VAGINAE Not detected [facility] BVAB 2,3 (BACTERIAL VAGINOSIS ASSOCIATED BACTERIA 2, 3); MOBILUNCUS SPP 0 [facility] BVAB 2,3 (BACTERIAL VAGINOSIS ASSOCIATED BACTERIA 2, 3); MOBILUNCUS SPP Not detected [facility] FORREST ALBICANS, PARAPSILOSIS, TROPICALIS 0 [facility] FORREST ALBICANS, PARAPSILOSIS, TROPICALIS Not detected [facility] FORREST GLABRATA 0 [facility] FORREST GLABRATA Not detected [facility] FORREST KRUSEI 0 [facility] FORREST KRUSEI Not detected [facility] CHLAMYDIA TRACHOMATIS 0 [facility] CHLAMYDIA TRACHOMATIS Not detected [facility] GARDNERELLA VAGINALIS 0 [facility] GARDNERELLA VAGINALIS Not detected [facility] MEGASPHAERA (TYPES 1, 2) 0 [facility] MEGASPHAERA (TYPES 1, 2) Not detected [facility] MYCOPLASMA GENITALIUM 0 [facility] MYCOPLASMA GENITALIUM Not detected [facility] NEISSERIA GONORRHOEAE 0 [facility] NEISSERIA GONORRHOEAE Not detected [facility] TRICHOMONAS VAGINALIS 0 [facility] TRICHOMONAS VAGINALIS Not detected [facility] Urinalysis macro (dipstick) panel (U)on 08-20-2024 Bilirubin, UA Negative Negative - 4(70) +++ mg/dL [facility] Blood, UA Negative Negative - 50 Yossi/mcL [facility] Clarity, UA Clear [facility] Color, UA Yellow [facility] Glucose, UA Negative Negative - 1999(110) ++++ mg/dL [facility] Interpretation and review of laboratory results Normal [facility] Ketones, UA Negative Negative - 160(16) ++++ mg/dL [facility] Leukocytes, UA Negative Negative - 500+++ Wild/mcL [facility] Nitrite, UA Negative Negative - Positive [facility] pH, UA 7 5 - 9 [facility] Protein, UA Negative Negative - 1999(20) ++++ mg/dL [facility] Spec Grav, UA 1.015 1 - 1.03 [facility] Urobilinogen, UA 0.2 0.2 - 12 mg/dL [facility] Urinalysis macro (dipstick) panel (U)on 07-24-2024 Bilirubin, UA Negative Negative - 4(70) +++ mg/dL [facility] Blood, UA Negative Negative - 50 Yossi/mcL [facility] Clarity, UA Clear [facility] Color, UA Yellow [facility] Glucose, UA Negative Negative - 1999(110) ++++ mg/dL [facility] Interpretation and review of laboratory results Normal [facility] Ketones, UA Negative Negative - 160(16) ++++ mg/dL [facility] Leukocytes, UA Negative Negative - 500+++ Wild/mcL [facility] Nitrite, UA Negative Negative - Positive [facility] pH, UA 6.5 5 - 9 [facility] Protein, UA Negative Negative - 1999(20) ++++ mg/dL [facility] Spec Grav, UA 1.025 1 - 1.03 [facility] Urobilinogen, UA 0.2 0.2 - 12 mg/dL [facility] US OB 14+ WEEKS ANATOMY SCAN on 07-23-2024 US OB 14+ WEEKS ANATOMY SCAN EXAM: US OB 14+ WEEKS ANATOMY SCAN HISTORY: anatomy. COMPARISON: Ob ultrasound 05/18/2024 [...] II, MD, PHD at 25-Jul-2024 08:22:22 AM [facility] Normal Not Available Comment on above: Order Comment: US OB ANATOMY SINGLE W US OB CERVICAL LENGTH Estimated Date of Delivery: 12/06/24 Gestational Age as of 06/18/2024: 15w4d Urinalysis macro (dipstick) panel (U)on 06-18-2024 Bilirubin, UA Negative Negative - 4(70) +++ mg/dL [facility] Blood, UA Negative Negative - 50 Yossi/mcL [facility] Clarity, UA Clear [facility] Color, UA Yellow [facility] Glucose, UA Negative Negative - 1999(110) ++++ mg/dL [facility] Interpretation and review of laboratory results Normal [facility] Ketones, UA Negative Negative - 160(16) ++++ mg/dL [facility] Leukocytes, UA Trace Negative - 500+++ Wild/mcL [facility] Nitrite, UA Negative Negative - Positive [facility] pH, UA 7 5 - 9 [facility] Protein, UA Negative Negative - 1999(20) ++++ mg/dL [facility] Spec Grav, UA 1.01 1 - 1.03 [facility] Urobilinogen, UA 0.2 0.2 - 12 mg/dL [facility]H DRUG SCREEN RAPID (URINE )on 05-28-2024 AMPHETAMINE SCREEN URINE Negative NEGATIVE [facility] BARBITURATES SCREEN URINE Negative NEGATIVE [facility] BENZODIAZEPINES SCREEN URINE Negative NEGATIVE [facility] BUPRENORPHINE SCREEN URINE Negative NEGATIVE [facility] Comment on above: DRUG CLASS TEST SYST EM CUT-OFF CONCENTRATIONS ARE FOLLOWS: AMP (Amphetamine): 500 ng/mL BAR (Barbiturates): 200 ng/mL BZO (Benzodiazepines): 150 ng/mL BUP (Buprenorphine): 10 ng/mL ARUNA (Cocaine): 150 ng/mL mAMP (Methamphetamine): 500 ng/mL MTD (Methadone): 200 ng/mL OPI (Opiates): 100 ng/mL OXY (Oxycodone): 100 ng/mL PCP (Phencyclidine): 25 ng/mL THC (Cannabinoids): 50 ng/mL TCA (Trycyclic Antidepressants): 300 ng/mL CANNABINOID SCREEN URINE Negative NEGATIVE [facility] COCAINE SCREEN URINE Negative NEGATIVE [facility] METHADONE SCREEN URINE Negative NEGATIVE NO [facility] METHAMPHETAMINES SCREEN URINE Negative NEGATIVE [facility] OPIATE SCREEN URINE Negative NEGATIVE [facility] OXYCODONE SCREEN URINE Negative NEGATIVE NO [facility] PHENCYCLIDINE SCREEN URINE Negative NEGATIVE [facility] TRICYCLIC ANTIDEPRESSANT URINE Negative NEGATIVE [facility]-24-[facility]24 BOX TEST SENT OUT [facility] BOX1 [facility] BOX2 05/24/24 [facility] HCG ( test) Ql (U)o n 05-22-2024 Interpretation and review of laboratory results Abnormal [facility] Preg Test, Ur Positive Negative [facility] US Pelvis transvaginalon EXAM: US OB TRANSVAGINAL [...] visualized. Electronically Signed:Electronicall y signed by UNA WEBBER II, MD, PHD at 20-May-2024 10:38:05 PM [facility] Una Webber MD - 05/20/2024 EXAM: US OB TRANSVAGINAL [...] visualized. Electronically Signed:Cuauhtemoc darling signed by UNA WEBBER II, MD, PHD at 20-May-2024 10:38:05 PM [facility] US Pelvis transvaginalOrdere d By: Una Webber on 05-20-2024 [employer] Work Phone: US OB TRANSVAGINALon 025 US [...] left ovary was not visualized. Electronically Signed:Cuauhtemoc y signed by UNA WEBBER II, MD, PHD at 20-May-2024 10:38:05 PM [facility] Normal Not Available Comment on above: Order Comment: US OB TRANSVAGINAL No LMP recorded. US Pelvis transvaginalon Radiology Study observation (narrative) [facility] Ambulatory Visit Summaryon 0 04-27-2024 Ambulatory Visit Summary Ambulatory Visit Summary SABRINA RICHMOND :1995 Visit Date:04/27/2024 Ambulatory Visit Instructions [...] a day asthma Refills: 2 Pickup at [facility]/pharmacy #[id number] New predniSONE (predniSONE 10 mg Tab) See instructions asthma take 2 tabs by mouth for 3 days, then take 1 tab by mouth for 3 days, then stop Pickup at [facility]/pharmacy #[id number] Unchanged albuterol (Albuterol (Eqv-ProAir HFA) 90 mcg/ inh inhalation aerosol) Inhalation Every 6 hours Unchanged albuterol (Ventolin HFA 90 mcg/ inh Aerosol-Adpt) 1 Puffs Inhalation Every 6 hours as needed for for wheezing Unchanged meclizine (meclizine 25 mg Tab) 1 Tablets By Mouth 3 times a day as needed for for dizziness Unchanged Non-Formulary Medication ( Vitamins) Pharmacy Information [facility]/pharmacy #[id number]: [address] [place], [place] [phone] Allergies No Known Allergies Problems Ongoing - [...] choosing us for your care. Normal [facility] Family Medicine Office/Clini c Noteon 04-27-2024 Family [...] hours, # 9 tab(s), Refills(s) 1, Pharmacy: [facility]/pharmacy #[id number], 165, cm, 07/06/23 8:52:00 EDT, Height/Length [...] virus vac (more content not included)... Normal [facility] Comment on above: Result Comment: Elec tronically Signed By: JOAQUÍN RODRIGUEZ\.br\Date and Time Signed: 04/27/24 10:37 EDT ED Clinical Summaryon 2024 ED Clinical Summary ED Clinical Summary [place] [id number] ED Clinical Summary Person Information Name: SABRINA RICHMOND [facility] Age: 28 Years : 1995 Sex: Female Language: Australian PCP: JOAQUÍN RODRIGUEZ Marital Status: Phone: [phone] Visit Id: Visit Reason: Weakness or fatigue; [...] 14:10:02 04/18/2024 14:10:02 04/18/2024 14:10:02 ADDRESS: [address] [id number] PHYS DOC NOTES: MEDICAL INFORMATION: Prescriptions Given: New Medications [id number], [address], [place] [phone], [phone] amoxicillin (amoxicillin 500 mg Cap) 2 Capsules [...] PATIENT EDUCATION INFORMATION: Instructions: Community-Acquired Pneumonia, Adult, Nbxu-ro-Qgve Follow up: With: Address: When: REY BISHOP [address] [place] [address] [employer] ([employer] In 3 days 04/21/2024 Comments: Call Dr for diagnosis based follow up DIAGNOSIS: Pneumonia Normal [facility] ED Note-Physicianon 04-19-19 ED Note-Physician ED Note-Physician Basic Information Time Seen: Gasper REYNOSO, Mark Rowan 04/18/2024 11:40 Chief Complaint cold for 1 [...] and Complexity of Problems Differential Diagnosis: [] [facility] Data External documents reviewed: [] My [...] moving forward. Mark Fitzpatrick PA-C had a gzbh-ir-tnie interaction with the patient. I personally performed [...] Dosing Influenza A&B Ag Rapid COVID Antigen ([facility]) Disposition Plan Patient Discharge Condition stable Discharge Disposition to home Discharge Prescription List Prescriptions amoxicillin 500 mg Cap, 1000 mg= 2 cap(s), Oral, q12hr Ventolin HFA 90 mcg/inh Aerosol-Adpt, 1 puff(s), Inhalation, q6hr, PRN Follow-up With When Contact Information REY ALAS In 3 days 04/21/2024 [facility] [address] [place] [address] Business (1) Additional Instructions: Call Dr for diagnosis based follow up Patient Education Community-Acquired Pneumonia, Adult, Rwgm-yg-Dmak Attestation Patient seen and evaluated by the physician behavioral health assistant. Attending physician was present in the emergency department and supervised care. This visit was performed by both the physician and an APC. I performed all aspects of the MDM as documented. This report was transcribed using voice recognition software. Every effo (more content not included)... Normal [facility] Comment on above: Result Comment: Elec tronically Signed By: Alva Jo M.D.\.br\Date and Time Signed: 04/18/24 18:02 EST\.br\Electronically Co-Signed By: Mark Jackman PA-C.br\Date and Time Co-Signed: 04/18/24 16:19 EST ED Patient Summaryon 025 ED Patient Summary ED Patient Summary [place] [id number] Patient Discharge Instructions Person Information Name: SABRINA RICHMOND Age: 28 Years Arrival Date: 04/18/2024 11:36:25 Discharge Diagnosis: Pneumonia Primary Care Physician: JOAQUÍN RODRIGUEZ Provider Information Primary Provider: Alva Jo M.D. Advanced Technical Report Writer:Mark Jackman PA-C The exam and treatment you received in the Emergency Department were for an urgent problem and are not intended as complete care. It is important that you follow up with a doctor, nurse practitioner, or physician???s behavioral health assistant for ongoing care. If your symptoms become worse or you do not improve as expected and you are unable to reach your usual health care provider, you should return to the Emergency Department. We are available 24 hours a day. SABRINA RICHMOND has been given the following list of patient education materials, prescriptions and follow-up instructions: Follow-up Instructions: With: Address: When: REY ALAS [address] [place] [address] Business (1) In 3 days 04/21/2024 Comments: Call Dr for diagnosis based follow up In the event that this physician does not participate in your insurance network, please consult with your insurance company to find a nearby participating provider. Patient Education Materials: Community-Acquired Pneumonia, Adult, Chab-rr-Gydn A MESSAGE TO ALL PATIENTS REGARDING OPIOIDS PRESCRIPTION OPIOIDS: WHAT YOU NEED TO KNOW Prescription opioids can be used to help relieve cehubatm-jb-wbtztp pain and are often prescribed following a [...] If you (more content not included)... Normal [facility] Influenza A&B Agon 5 Influenzae A Ag Negative Normal Negative [facility] Comment on above: Performed By: #### 1 [id number] #### [facility] [address] [place] [address] Influenzae B Ag Negative Normal Negative [facility] Comment on above: Result Comment: Test sensitivity and specificity vary for age group, specimen type, antigen types, and prevalence of disease. Test results must be evaluated in conjunction with other clinical data available to the physician. Individuals who received nasally administered Influenza A vaccine may have positive test results up to 3 days after vaccination. Performed By: #### 1 [id number] #### [facility] [address] [place] [address] MICRO OTHER TESTSOrdered By: Mary Sears on 04-18-2024 Influenzae A Ag Negative (04/18/24 12:06 PM) Normal Negative [facility] Man Sero Influenzae B Ag Negative 1 (04/18/24 12:06 PM) Normal Negative [facility] Comment on above: Interpretive Data: [...] NEG Ctl Pass (04/18/24 12:06 PM) Normal [facility] Rapid COV Int POS Ctl Pass (04/18/24 12:06 PM) Normal [facility] SARS-CoV+SARS-CoV-2 (COVID-19) Ag IA.rapid Ql (Resp) Not Detected 2 (04/18/24 12:06 PM) Normal Not Detected [facility] Comment on above: Interpretive Data: Gini he Nanobiotixitor System for Rapid Detection of SARS-CoV-2 is [...] Rapid COV Int NEG Ctl Pass Normal [facility] Comment on above: Performed By: #### 2 [id number] #### [facility] [address] [place] [address] Rapid COV Int POS Ctl Pass Normal [facility] Comment on above: Performed By: #### 2 [id number] #### [facility] [address] [place] [address] SARS-CoV+SARS-CoV-2 (COVID-19) Ag IA.rapid Ql (Resp) Not detected Normal Not Detected [facility] Comment on above: Result Comment: The BD Veritor??? System for Rapid Detection of SARS-CoV-2 is [...] For in vitro diagnostic use. In the [facility], only for use under an Emergency Use [...] other viruses or pathogens; and, in the [facility], this test is only authorized for the duration of the declaration that circumstances exist justifying the authorization of emergency use of in vitro diagnostics for detection and/or diagnosis of the virus that causes COVID-19 under Section 564(b)(1) of the Act, 21 U.S.C. ??? 360bbb-3(b)(1), unless the authorization is terminated or revoked sooner. Performed By: #### 2 [id number] #### [facility] [address] [place] [address] MRI Brain w/ + w/o Contrasto n [...] Vueway Contrast amount in ml's: 10 Normal [facility] Ambulatory Visit Summaryon 0 10-10-2023 Ambulatory Visit Summary Ambulatory Visit Summary SABRINA RICHMOND Princess :1995 Visit Date:10/10/2023 Ambulatory Visit Instructions [...] EDT With: JOAQUÍN RODRIGUEZ Where: [facility] [address] [place] [id number]- You Need to Complete the Following MRI Brain w/ + w/o Contrast, 10/10/23, Routine, Order for Future Visit, Transport Mode: Ambulatory, Reason: Headache, No, No, Intractable migraine with aura Complicated migraine, pp_set_radiology_sub specialty, [facility] Someone Will Contact You Regarding These Appointments [facility] External Ambulatory Referral, Dermatology, [facility], [place], 10/10/23 10:54:00 EDT, [facility] Medications What How [...] you for choosing us for your care. Roxanne [facility] Family Medicine Office/Clini c Noteon 10-10-2023 Family [...] Melanocytic nevi, unspecified) Referral to derm. Ordered: [facility] External Ambulatory Referral 2. Migraine (G43.909: Migraine, [...] Daily, # 30 tab(s), Refills(s) 3, Pharmacy: [facility]/pharmacy #6173, 165.1, cm, 07/08/23 12:52:00 EDT, Height/Length [...] No K (more content not included)... Normal [facility] Comment on above: Result Comment: Elec tronically Signed By: JOAQUÍN RODRIGUEZ\.br\Date and Time Signed: 10/10/23 11:33 EDT Consent for Treatmenton 06-15 Consent for Treatment [id number] #1.00TIFF [facility] Discharge Instructionson Discharge Instructions [id number] 5#1.00TIFF [facility] ED Clinical Summaryon 2023 ED Clinical Summary [address] [address] ED Clinical Summary Person Information Name: SABRINA RICHMOND [place] Age: 28 Years : 1995 Sex: Female Language: Australian PCP: JOAQUÍN RODRIGUEZ Marital Status: Phone: [phone] Visit Id: Visit Reason: Fever; Sinus Pain/Congestion; [...] 07/08/2023 14:32:37 07/08/2023 14:32:37 07/08/2023 14:32:37 ADDRESS: [facility] [id number] PHYS DOC NOTES: MEDICAL INFORMATION: Prescriptions Given: New Medications [id number] [address] [place] [id number], [phone] loratadine-pseudoeph edrine (loratadine-pseudoep hedrine 5 mg-120 mg [...] REY ALAS [address] [place] [address] Business (1) In 3 days 07/11/2023 DIAGNOSIS: Sinus headache; Vertigo Normal [facility] ED Note-Physicianon 07-08-19 ED Note-Physician Basic Information Time Seen: Christine REYNOSO Jarrell 07/08/2023 12:51 Chief Complaint Pt reports cough, [...] for 10 day(s), 20 tab(s), Refill(s) 0, [id number], 165.1, cm, 07/08/23 12:52:00 EDT, Height/Length Dosing, 127, kg, 07/08/23 12:52:00 EDT, Weight Dosing meclizine, 25 mg = 1 tab(s), Oral, TID, PRN for dizziness, # 15 tab(s), Refills(s) 0, Pharmacy: [facility]/pharmacy #[id number], 165.1, cm, 07/08/23 12:52:00 EDT, Height/Length [...] 07/11/2023 EDT [address] [place] [address]- Business (1) Additional Instructions: Patient Education Vertigo [...] made to ensure accuracy, however, inadvertently computerized flight simulator teacher mistakes may be present. Appropriate healthcare PPE [...] year, 11/07/2019 (more content not included)... Normal [facility] Comment on above: Result Comment: Elec tronically [...] cool or dry air. Medicines ? Take okxl-mom-qkvjahe and prescription medicines only as told by [...] provider. Document Revised: 01/03/2022 Document Reviewed: 01/03/2022 Elsevier Patient Education ? 2022 [employer] Neurology Vertigo Vertigo is the feeling [...] for stabil (more content not included)... Normal [facility] ED Patient Summaryon 024 ED Patient Summary [place] [id number] Patient Discharge Instructions Person Information Name: SABRINA RICHMOND Age: 28 Years [facility]: [id number] Arrival Date: 07/08/2023 12:47:49 Discharge Diagnosis: Sinus headache; Vertigo Primary Care Physician: JOAQUÍN RODRIGUEZ Provider Information Primary Provider: Jagdish Dunn DO Advanced Technical Report Writer:Jarrell King PA-C The exam and treatment you received in the Emergency Department were for an urgent problem and are not intended as complete care. It is important that you follow up with a doctor, nurse practitioner, or physician?s behavioral health assistant for ongoing care. If your symptoms become worse or you do not improve as expected and you are unable to reach your usual health care provider, you should return to the Emergency Department. We are available 24 hours a day. SABRINA RICHMOND has been given the following list of patient education materials, prescriptions and follow-up instructions: Follow-up Instructions: With: Address: When: REY ALAS [address] [place] [id number] [facility] (1) In 3 days 07/11/2023 In the event that this physician does not participate in your insurance network, please consult with your insurance company to find a nearby participating provider. Patient Education Materials: Vertigo; Sinus Pain A MESSAGE TO ALL PATIENTS REGARDING OPIOIDS PRESCRIPTION OPIOIDS: WHAT YOU NEED TO KNOW Prescription opioids can be used to help relieve dkzoqzzk-jh-kvxrrf pain and are often prescribed following a [...] be struggling with addiction, tell your health hearing care professional and ask for guidance or call SAMHSA?S National Helpline at 7-375-244-HELP. v (more content not included)... Normal [facility] Prescriptions/Work Noteson 0 07-08-2023 Prescriptions/Work Notes [id number] 7#1.00TIFF [facility] XR Chest Single Viewon 07-07 XR [...] REPORT Dictated: 07/08/2023 1:29 pm Yohan Murphy MD Signed (Electronic Signature): 07/08/2023 1:29 pm Signed by: Yohan Murphy MD Transcribed by: MARY JANE Technologist: LAUREEN Technical Comments Radiation Dose: Ka,r in mGy = na DAP = na [facility] Ambulatory Visit Summaryon 0 07-06-2023 Ambulatory Visit Summary SABRINA RICHMOND :1995 Visit Date:07/06/2023 Ambulatory Visit Instructions Your [...] 8:40 AM EDT With: JOAQUÍN RODRIGUEZ Where: [facility] Normal [facility] Family Medicine Office/Clini c Noteon 07-06-2023 Family Medicine Office/Clinic Note Chief Complaint establish care HPI Staff Establish Care: History: Any previous diagnosis: Asthma History of seeing any specialist: none When was your last doctors visit: 2021 Last provider: Dr. Romero Any recent labs: 01/11/23 Health Maintenance UTD: Pelvic/Pap:DUE- see Dr. Timmons has been over a year Flu: refused [...] 28 year old female who presents to establish care, and for migraine. She is experiencing [...] hours, # 9 tab(s), Refills(s) 1, Pharmacy: [facility]/pharmacy #[id number], 165, cm, 07/06/23 8:52:00 EDT, Height/Length Dosing, 125.8, kg, 2... 4. Non-smoker (Z78.9: Other specified health status) stable Ordered: sumatriptan, 25 mg = 1 tab(s), Oral, Daily, PRN for migraine headache, may repeat dose after 2 hours up to a maximum of 200 mg in 24 hours, # 9 tab(s), Refills(s) 1, Pharmacy: [facility]/pharmacy #[id number], 165, cm, 07/06/23 8:52:00 EDT, Height/Length Dosing, 125.8, kg, 2... Follow-up With When Contact Information JOAQUÍN RODRIGUEZ [...] influenza vir (more content not included)... Normal [facility] Comment on above: Result Comment: Elec tronically [...] these instructions at home: Medicines ? Take ymgo-gso-gapxued and prescription medicines only as told by [...] and dr (more content not included)... Normal [facility] CHEMISTRYOrdered By: SYSTEM SYSTEM on 01-11-2023 Anion gap [Moles/Vol] 10 mmol/L Normal 6 - 16 mEq/L [facility] Calcium [Mass/Vol] 8.7 mg/dL Low 8.9 - 11. 1 mg/dL [facility] Chloride [Moles/Vol] 102 mmol/L Normal 101 - 1 11 mmol/L [facility] CO2 [Moles/Vol] 28 mmol/L Normal 21 - 31 mmol/L [facility] Creatinine [Mass/Vol] 1.1 mg/dL Normal 0.5 - 1.3 mg/dL [facility] GFR/1.73 sq M.predicted among non-blacks MDRD (S/P/Bld) [Vol rate/Area] 70 mL/min/1.73 m2 Normal >=59mL/min/1 .73 m2 [facility] Chem S Comment on above: Interpretive Data: C hronic kidney disease could be indicated at eGFR's of less than 60 mL/min/1.73m2. Kidney failure is indicated at less than 15 mL/min/1.73m2. Glucose [Mass/Vol] 93 mg/dL Normal 55 - 199 mg/dL [facility] Remisol Comment on above: Interpretive Data: I f this glucose result represents a fasting glucose, interpretation should refer to the following reference range: 55-99 mg/dL Magnesium [Mass/Vol] 2.3 mg/dL Normal 1.3 - 2 .4 mg/dL [facility] Potassium [Moles/Vol] 3.5 mmol/L Normal 3.5 - 5.3 mmol/L [facility] Sodium [Moles/Vol] 136 mmol/L Normal 135 - 145 mmol/L [facility] Urea nitrogen [Mass/Vol] 13 mg/dL Normal 5 - 21 mg/dL [facility] Urea nitrogen/Creatinine [Mass ratio] 12 mg/mg Normal 10 - 20 [facility] HEMATOLOGYOrdered By: SYSTEM SYSTEM on 01-11-2023 [...] 12.4 % Normal 4.0 - 14.0 % [facility] HemeAutoSS Monocytes/Leukocytes Auto (Bld) [Pure # fraction] [...] Ag Negative (01/06/23 3:06 PM) Normal Negative [facility] Influenzae B Ag Negative 1 (01/06/23 3:06 PM) Normal Negative [facility] Comment on above: Interpretive Data: T [...] NEG Ctl Pass (01/06/23 3:06 PM) Normal [facility] Rapid COV Int POS Ctl Pass (01/06/23 3:06 PM) Normal [facility] SARS-CoV+SARS-CoV-2 (COVID-19) Ag IA.rapid Ql (Resp) Not Detected 2 (01/06/23 3:06 PM) Normal Not Detected [facility] Comment on above: Interpretive Data: T he Cellect[employer] Veritor System for Rapid Detection of SARS-CoV-2 [...] 0.9 mg/dL Normal 0.5 - 1.3 mg/dL [facility] GFR/1.73 sq M.predicted among non-blacks MDRD (S/P/Bld) [Vol rate/Area] 89 mL/min/1.73 m2 Normal >=59mL/min/1 .73 m2 [facility] Chem S Globulin (S) [Mass/Vol] 3.9 g/dL Normal 1.4 - 4.0 gm/dL [facility] Glucose [Mass/Vol] 96 mg/dL Normal 55 - 199 mg/dL [facility] Lipase [Catalytic activity/Vol] 39 U/L Normal [...] hCG Ql Negative (10/17/22 1:38 PM) Normal [facility] Man [facility]ero URINALYSISOrdered By: Charla Amezcua on [...] PM) Normal Negative [facility] UA Auto SS Hemlock.plasma/Hemlock. RBC (Bld) [Mass ratio] 0-3 /HPF Normal [...] [facility] UA Auto SS Urobilinogen Qn (U) 0.6760033 {Juma'U}/dL Normal 0.0 - 1.0 EU/dL [facility] [...] 11. 1 mg/dL [facility] Chloride [Moles/Vol] 104 mmol/L Normal 101 - 1 11 mmol/L [facility] CO2 [Moles/Vol] 25 mmol/L Normal 21 - 31 mmol/L [facility] Creatinine [Mass/Vol] 0.9 mg/dL Normal 0.5 - 1.3 mg/dL [facility] GFR/1.73 sq M.predicted among blacks MDRD (S/P/Bld) [Vol rate/Area] mL/min/1.73 m2 Normal >=59mL/min/1 .73 m2 [facility] Chem S GFR/1.73 sq M.predicted among non-blacks MDRD (S/P/Bld) [Vol rate/Area] mL/min/1.73 m2 Normal >=59mL/min/1 .73 m2 [facility] Chem S Globulin (S) [Mass/Vol] 3.9 g/dL Normal 1.4 - 4.0 gm/dL [facility] Glucose [Mass/Vol] 103 mg/dL Normal 55 - 199 mg/dL [facility] Lipase [Catalytic activity/Vol] 43 U/L Normal 13 - 58 unit/L [facility] Potassium [Moles/Vol] 4.2 mmol/L Normal 3.5 - 5.3 mmol/L [facility] Protein [Mass/Vol] 7.9 g/dL High 6.0 - 7.8 gm/dL [facility] Sodium [Moles/Vol] 136 mmol/L Normal 135 - 145 mmol/L [facility] Urea nitrogen [Mass/Vol] 18 mg/dL Normal 5 - 21 mg/dL [facility] Urea nitrogen/Creatinine [Mass ratio] 20 mg/mg Normal 10 - 20 [facility] HEMATOLOGYOrdered By: Leigh Ann Paulson on 02-17-2022 Anisocytosis Ql (Bld) Present (02/17/22 4:25 PM) Normal [facility] HemeManSS Erythrocyte distribution width (RBC) [Ratio] 15.5 % High 10.9 - 14.2 % [facility]eAutoSS Hematocrit (Bld) [Volume fraction] 40.0 % Normal 34.0 - 46.0 % [facility] HemeAutoSS Hemoglobin (Bld) [Mass/Vol] 12.6 g/dL Normal [...] Ql (Bld) Present (02/17/22 4:25 PM) Normal [facility] HemeManSS Platelet mean volume (Bld) [Entitic vol] [...] PM) Normal Negative [facility] UA Auto SS Hemlock.plasma/Hemlock. RBC (Bld) [Mass ratio] 0-3 /HPF Normal [...] [facility] UA Auto SS Urobilinogen Qn (U) 0.7277177 {Juma'U}/dL Normal 0.0 - 1.0 EU/dL [facility] UA Auto SS WBC Auto Ql (U) Negative (02/17/22 7:01 PM) Normal Negative [facility] UA Auto SS WBC LM.HPF (Urine sed) [#/Area] 0-5 /HPF Normal 0-5/HPF [facility] UA Auto SS SEROLOGYOrdered By: Chio garcia on 11-10-2021 HCG.beta subunit (U) [Moles/Vol] Negative Normal [facility] Man [facility]ero URINALYSISOrdered By: Cailin Sanders on [...] PM) Normal Negative [facility] UA Auto SS Hemlock.plasma/Hemlock. RBC (Bld) [Mass ratio] 0-3 /HPF Normal 0-3/HPF [facility] UA A uto SS Nitrite Ql (U) [...] Desc Clean Catch (11/10/21 12:40 PM) Normal [facility] UA Auto SS Urobilinogen Qn (U) 0.3320446 {Juma'U}/dL Normal 0.0 - 1.0 EU/dL [facility] UA Auto SS WBC Auto Ql (U) 3+ *ABN* (11/10/21 12:40 PM) Invalid Interpretation Code Negative [facility] UA Auto SS WBC LM.HPF (Urine sed) [#/Area] 16-25 /HPF Invalid Interpretation Code 0-5/HPF [facility] UA Auto SS Basophils Auto (Bld) [#/Vol] Ordered By: PRESLEY TIMMONS on 09-13-2021 Basophils (Bld) [#/Vol] 0.0 10*3/uL 0.0-0.2 [facility] Basophils/100 WBC Auto (Bld) Ordered By: PRESLEY TIMMONS on 09-13-2021 Basophils/100 WBC (Bld) 0.3 % . [facility] Blood hemoglobin measurement (mass/volume)Ordered By: PRESLEY TIMMONS on 09-13-2021 Hemoglobin (Bld) [Mass/Vol] 11.7 g/dL 11.8-15.4 [facility] Blood leukocytes automated c ount (number/volume)Ordered By: PRESLEY TIMMONS on 09-13-2021 WBC (Bld) [#/Vol] 13.1 10*3/uL 4.5-11.0 [facility] Complete Blood Count Auto Di ffon 09-13-2021 Basophils (Bld) [#/Vol] 0.0 10*3/uL Normal 0.0-0.2 [facility] Comment on above: Order Comment: Comme nt Draw at 630 am Result Comment: PERF ORMED BY: [place] [address] PATHOLOGIST [employer] HELPER SANDY PEREZ M.D. Performed By: #### C BC #### [facility] [address] [place] [address] Basophils/100 WBC (Bld) 0.3 % Normal . [facility] Comment on above: Order Comment: Comme nt Draw at 630 am Performed By: #### C BC #### [facility] [address] [place] [address] [place] Eosinophils (Bld) [#/Vol] 0.1 10*3/uL Normal 0.0-0.45 [facility] Comment on above: Order Comment: Comme nt Draw at 630 am Performed By: #### C BC #### [place] [address] [place] Eosinophils/100 WBC (Bld) 0.8 % Normal . [facility] Comment on above: Order Comment: Comme nt Draw at 630 am Performed By: #### C BC #### [address] Erythrocyte distribution width (RBC) [Ratio] 15.3 % Normal 11.9-15.3 [facility] Comment on above: Order Comment: Comme nt Draw at 630 am Performed By: #### C BC #### [address] Hematocrit (Bld) [Volume fraction] 35.2 % Normal 34.0-46.4 [facility] Comment on above: Order Comment: Comme nt Draw at 630 am Performed By: #### C BC #### [address] Hemoglobin (Bld) [Mass/Vol] 11.7 g/dL Low 11.8-15.4 [facility] Comment on above: Order Comment: Comme nt Draw at 630 am Performed By: #### C BC #### [address] Lymphocytes (Bld) [#/Vol] 2.4 10*3/uL Normal 1.00-4.8 [facility] Comment on above: Order Comment: Comme nt Draw at 630 am Performed By: #### C BC #### [address] Lymphocytes/100 WBC (Bld) 18.5 % Normal . [facility] Comment on above: Order Comment: Comme nt Draw at 630 am Performed By: #### C BC #### [address] MCH (RBC) [Entitic mass] 27.9 pg Normal 24.7-34.3 [facility] Comment on above: Order Comment: Comme nt Draw at 630 am Performed By: #### C BC #### [address] MCV (RBC) [Entitic vol] 83.6 fL Normal 80-100 [facility] Comment on above: Order Comment: Comme nt Draw at 630 am Performed By: #### C BC #### [facility] [address] Mean Corpuscular HGB Conc 33.3 g/dL Normal 32.0-35.0 [facility] Comment on above: Order Comment: Comme nt Draw at 630 am Performed By: #### C BC #### [facility] [address] [place] [address] [place] Monocytes (Bld) [#/Vol] 0.9 10*3/uL High 0.0-0.8 [facility] Comment on above: Order Comment: Comme nt Draw at 630 am Performed By: #### C BC #### [address] Monocytes/100 WBC (Bld) 6.5 % Normal . [facility] Comment on above: Order Comment: Comme nt Draw at 630 am Performed By: #### C BC #### [place] [address] [place] Neutrophils (Bld) [#/Vol] 9.7 10*3/uL High 1.8-7.7 [facility] Comment on above: Order Comment: Comme nt Draw at 630 am Performed By: #### C BC #### [place] [id number] [place] Neutrophils/100 WBC (Bld) 73.9 % Normal . [facility] Comment on above: Order Comment: Comme nt Draw at 630 am Performed By: #### C BC #### [facility] [address] [place] [id number] [place] Nucleated RBC/100 WBC (Bld) [Ratio] 0.1 % Normal 0-0.5 [facility] Comment on above: Order Comment: Comme nt Draw at 630 am Performed By: #### C BC #### [facility] [address] [place] [address] [place] Platelet mean volume (Bld) [Entitic vol] 7.2 fL Normal 6.3-10.7 [facility] Comment on above: Order Comment: Comme nt Draw at 630 am Performed By: #### C BC #### [facility] [address] Platelets (Bld) [#/Vol] 237 10*3/uL Normal 150-450 [facility] Comment on above: Order Comment: Comme nt Draw at 630 am Performed By: #### C BC #### [facility] [address] RBC (Bld) [#/Vol] 4.21 10*6/uL Normal 3.60-5.00 [facility] Comment on above: Order Comment: Comme nt Draw at 630 am Performed By: #### C BC #### [facility] [address] [place] [address] WBC (Bld) [#/Vol] 13.1 10*3/uL High 4.5-11.0 [facility] Comment on above: Order Comment: Comme nt Draw at 630 am Performed By: #### C BC #### [facility] [address] [place] [address] Eosinophils Auto (Bld) [#/Vo l]Ordered By: PRESLEY TIMMONS on 09-13-2021 Eosinophils (Bld) [#/Vol] 0.1 10*3/uL 0.0-0.45 [facility] Eosinophils/100 WBC Auto (Bl d)Ordered By: PRESLEY TIMMONS on 09-13-2021 Eosinophils/100 WBC (Bld) 0.8 % . [facility] Erythrocyte distribution wid th Auto (RBC) [Ratio]Ordered By: PRESLEY TIMMONS on 09-13-2021 Erythrocyte distribution width (RBC) [Ratio] 15.3 % 11.9-15.3 [facility] Hematocrit Auto (Bld) [Volum e fraction]Ordered By: PRESLEY TIMMONS on 09-13-2021 Hematocrit (Bld) [Volume fraction] 35.2 % 34.0-46.4 [facility] Laboratory - Hematology and Cell countsOrdered By: PRESLEY TIMMONS on 09-13-2021 Nucleated RBC/100 WBC (Bld) [Ratio] 0.1 % 0-0.5 [facility] Lymphocytes Auto (Bld) [#/Vo l]Ordered By: PRESLEY TIMMONS on 09-13-2021 Lymphocytes (Bld) [#/Vol] 2.4 10*3/uL 1.00-4.8 [facility] Lymphocytes/100 WBC Auto (Bl d)Ordered By: PRESLEY TIMMONS on 09-13-2021 Lymphocytes/100 WBC (Bld) 18.5 % . [facility] MCH Auto (RBC) [Entitic mass ]Ordered By: PRESLEY TIMMONS on 09-13-2021 MCH (RBC) [Entitic mass] 27.9 pg 24.7-34.3 [facility] MCHC Auto (RBC) [Mass/Vol]Or dered By: PRESLEY TIMMONS on 09-13-2021 MCHC (RBC) [Mass/Vol] 33.3 g/dL 32.0-35.[address] [facility] MCV Auto (RBC) [Entitic vol] Ordered By: PRESLEY TIMMONS on 09-13-2021 MCV (RBC) [Entitic vol] 83.6 fL 80-100 [facility] Monocytes Auto (Bld) [#/Vol] Ordered By: PRESLEY TIMMONS on 09-13-2021 Monocytes (Bld) [#/Vol] 0.9 10*3/uL 0.0-0.8 [facility] Monocytes/100 WBC Auto (Bld) Ordered By: PRESLEY TIMMONS on 09-13-2021 Monocytes/100 WBC (Bld) 6.5 % . [facility] Neutrophils Auto (Bld) [#/Vo l]Ordered By: PRESLEY TIMMONS on 09-13-2021 Neutrophils (Bld) [#/Vol] 9.7 10*3/uL 1.8-7.7 [facility] Neutrophils/100 WBC Auto (Bl d)Ordered By: PRESLEY TIMMONS on 09-13-2021 Neutrophils/100 WBC (Bld) 73.9 % . [facility] Platelet mean volume Auto (B ld) [Entitic vol]Ordered By: PRESLEY TIMMONS on 09-13-2021 Platelet mean volume (Bld) [Entitic vol] 7.2 fL 6.3-10.7 [facility] Platelets Auto (Bld) [#/Vol] Ordered By: PRESLEY TIMMONS on 09-13-2021 Platelets (Bld) [#/Vol] 237 10*3/uL 150-450 [facility] RBC Auto (Bld) [#/Vol]Ordere d By: PRESLEY TIMMONS on 09-13-2021 RBC (Bld) [#/Vol] 4.21 10*6/uL 3.60-5.00 [facility] Albumin [Mass/volume] in Ser um or PlasmaOrdered By: PRESLEY TIMMONS on 09-12-2021 Albumin [Mass/Vol] 2.3 g/dL 3.2-5.5 [facility] Comprehensive Metabolic Pane brian 09-12-2021 Albumin [Mass/Vol] 2.3 g/dL Low 3.2-5.5 [facility] Comment on above: Performed By: #### C MP #### [facility] [address] Albumin/Globulin [Mass ratio] 0.6 {ratio} Normal [facility] Comment on above: Performed By: #### C MP #### [facility] [address] [place] [id number] [place] ALP [Catalytic activity/Vol] 183 U/L High 32-92 [facility] Comment on above: Performed By: #### C MP #### [facility] [address] [place] [address] [place] ALT [Catalytic activity/Vol] 15 U/L Normal 10-60 [facility] Comment on above: Performed By: #### C MP #### [facility] [address] [place] [address] [place] AST [Catalytic activity/Vol] 15 U/L Normal 10-42 [facility] Comment on above: Performed By: #### C MP #### [facility] [address] [place] [id number] [facility] Bilirubin [Mass/Vol] 0.7 mg/dL Normal 0.3-1.2 [facility] Comment on above: Performed By: #### C MP #### [address] Calcium [Mass/Vol] 8.7 mg/dL Normal 8.2-10.2 [facility] Comment on above: Performed By: #### C MP #### [address] Chloride [Moles/Vol] 102 mmol/L Normal 95-114 [facility] Comment on above: Performed By: #### C MP #### [address] CO2 [Moles/Vol] 22.9 mmol/L Normal 22.0-30.0 [facility] Comment on above: Performed By: #### C MP #### [address] Creatinine [Mass/Vol] 0.69 mg/dL Normal 0.44-1.03 [facility] Comment on above: Performed By: #### C MP #### [address] Creatinine Clr Calc Pharmacy 152.06 [facility] Comment on above: Result Comment: PERF ORMED BY: [place] [address] PATHOLOGIST [employer] SANDY PEREZ M.D. Performed By: #### C MP #### [address] Estimated GFR ( Brenda > 60 [facility] Comment on above: Result Comment: GFR estimated reference range: According to KDOQI guidelines, <60 ml/min/1.73m2 is sufficient to diagnose a patient with chronic kidney disease. Performed By: #### C MP #### [address] Estimated GFR (Non- Am > 60 [facility] Comment on above: Performed By: #### C MP #### [address] Globulin (S) [Mass/Vol] 3.7 g/dL Normal [facility] Comment on above: Performed By: #### C MP #### [facility] [address] Glucose [Mass/Vol] 97 mg/dL Normal 70-100 [facility] Comment on above: Result Comment: [place] Glucose Reference Range is dependent on time and content of last meal. Glucose of more than 200 mg/dL in a nonstressed, ambulatory subject supports the diagnosis of Diabetes Mellitus. ADA recommended reference range Performed By: #### C MP #### [facility] [address] Potassium [Moles/Vol] 3.6 mmol/L Normal 3.5-5.1 [facility] Comment on above: Performed By: #### C MP #### [address] Protein [Mass/Vol] 6.0 g/dL Low 6.1-7.9 [facility] Comment on above: Performed By: #### C MP #### [address] Sodium [Moles/Vol] 136 mmol/L Normal 136-146 [facility] Comment on above: Performed By: #### C MP #### [place] [address] [place] Urea nitrogen [Mass/Vol] 6 mg/dL Low 9-23 [facility] Comment on above: Performed By: #### C MP #### [place] [address] [place] Creatinine and Glomerular fi ltration rate.predicted panel (S/P/Bld)Ordered By: PRESLEY TIMMONS on 09-12-2021 Creatinine [Mass/Vol] 0.69 mg/dL 0.44-1.03 [facility] Estimated glomerular filtrat ion rate (GFR) non- AmericanOrdered By: PRESLEY TIMMONS on 09-12-2021 GFR/1.73 sq M.predicted among non-blacks MDRD (S/P/Bld) [Vol rate/Area] > 60 mL/Min [facility] Globulin Calc (S) [Mass/Vol] Ordered By: PRESLEY TIMMONS on 09-12-2021 Globulin (S) [Mass/Vol] 3.7 g/dL [facility] No Panel InformationOrdered By: PRESLEY TIMMONS on 09-12-2021 Estimated GFR () > 60 mL/Min [facility] Comment on above: GFR estimated refere nce range: According to KDOQI guidelines, <60 ml/min/1.73m2 is sufficient to diagnose a patient with chronic kidney disease. Pharmacy Creatinine Clearance (Chem 152.06 [facility] Protein [Mass/volume] in Ser um or PlasmaOrdered By: PRESLEY TIMMONS on 09-12-2021 Protein [Mass/Vol] 6.0 g/dL 6.1-7.9 [facility] Serum or plasma alanine hutton otransferase measurement without P-5'-P (enzymatic activiOrdered By: PRESLEY TIMMONS on 09-12-2021 ALT No additional P-5'-P [Catalytic activity/Vol] 15 U/L 10-60 [facility] Serum or plasma albumin/glob ulin mass ratioOrdered By: PRESLEY TIMMONS on 09-12-2021 Albumin/Globulin [Mass ratio] 0.6 {ratio} [facility] Serum or plasma alkaline lamont sphatase measurement (enzymatic activity/volume)Ordered By: PRESLEY TIMMONS on 09-12-2021 ALP [Catalytic activity/Vol] 183 U/L 32-92 [facility] Serum or plasma aspartate am inotransferase measurement (enzymatic activity/volume)Ordered By: PRESLEY TIMMONS on 09-12-2021 AST [Catalytic activity/Vol] 15 U/L 10-42 [facility] Serum or plasma calcium carlie urement (mass/volume)Ordered By: PRESLEY TIMMONS on 09-12-2021 Calcium [Mass/Vol] 8.7 mg/dL 8.2-10.2 [facility] Serum or plasma chloride irwin surement (moles/volume)Ordered By: PRESLEY TIMMONS on 09-12-2021 Chloride [Moles/Vol] 102 mmol/L 95-114 [facility] Serum or plasma glucose carlie urement (mass/volume)Ordered By: PRESLEY TIMMONS on 09-12-2021 Glucose [Mass/Vol] 97 mg/dL 70-100 [facility] Comment on above: ADA recommended refe rence range Random Glucose Reference Range is dependent on time and content of last meal. Glucose of more than 200 mg/dL in a nonstressed, ambulatory subject supports the diagnosis of Diabetes Mellitus. Serum or plasma potassium me asurement (moles/volume)Ordered By: PRESLEY TIMMONS on 09-12-2021 Potassium [Moles/Vol] 3.6 mmol/L 3.5-5.1 [facility] Serum or plasma sodium measu rement (moles/volume)Ordered By: PRESLEY TIMMONS on 09-12-2021 Sodium [Moles/Vol] 136 mmol/L 136-146 [facility] Serum or plasma total biliru bin measurement (mass/volume)Ordered By: PRESLEY TIMMONS on 09-12-2021 Bilirubin [Mass/Vol] 0.7 mg/dL 0.3-1.2 [facility] Serum or plasma total carbon dioxide measurement (moles/volume)Ordered By: PRESLEY TIMMONS on 09-12-2021 CO2 [Moles/Vol] 22.9 mmol/L 22.0-30.0 [facility] Serum or plasma urea nitroge n measurement (mass/volume)Ordered By: PRESLEY TIMMONS on 09-12-2021 Urea nitrogen [Mass/Vol] 6 mg/dL 9-23 [facility] Amphetamine Screen Ql (U)Ord ered By: PRESLEY TIMMONS on 09-11-2021 Amphetamines Ql (U) Negative Negative [facility] Barbiturates [Presence] in U rineOrdered By: PRESLEY TIMMONS on 09-11-2021 Barbiturates Ql (U) Negative Negative [facility] Benzodiazepines [Presence] i n UrineOrdered By: PRESLEY TIMMONS on 09-11-2021 Benzodiazepines Ql (U) Negative Negative [facility] Bilirubin Auto test strip Ql (U)Ordered By: PRESLEY TIMMONS on 09-11-2021 Bilirubin Ql (U) Negative Negative [facility] COVID-19 Antigenon 2 COVID-19 Antigen Healthcare [...] developed and its performance characteristic determined by Rosalind and validated at [facility]. This test has not been FDA cleared [...] for SARS Antigen by IVET PERFORMED BY: [place] [address] PATHOLOGIST [employer]SM[employer] HELPER SANDY PEREZ M.D. Normal [facility] Comment on above: Performed By: #### C OVID-19 CHANEL, SOFIANEG #### [address] COVID-19 SOFIAOrdered By: MANJU TIMMONS on 09-11-2021 SARS-CoV+SARS-CoV-2 (COVID-19) Ag IA.rapid Ql (Resp) Negative Negative [facility] Comment on above: This is a duplicate Chanel SARS Antigen (IVET) result to be used for statistical tracking purpose only. Chlamydia trachomatis DNA [P resence] in Specimen by EMMA with probe detectionOrdered By: PRESLEY TIMMONS on 09-11-2021 C. trachomatis DNA EMMA+probe Ql (Unsp spec) Negative Negative [facility] Chlamydia/GC/Trich NAAon Chlamydia Trachomotis, EMMA Negative Normal Negative [facility] Comment on above: Performed By: #### G CCHLAMTRI #### [facility] , Neisseria Gonorrhoeae, EMMA Negative Normal Negative [facility] Comment on above: Performed By: #### G CCHLAMTRI #### [facility] , Trichomonas EMMA Negative Normal Negative [facility] Comment on above: Result Comment: Perf ormed at: =G - [facility] [address] [id number] Tax Processor: Glory Schaffer MD, Phone: [phone] PERFORMED BY: [place] [address] PATHOLOGIST [employer]SM[employer] HELPER SANDY PEREZ M.D. Performed By: #### G CCHLAMTRI #### [facility] , Complete Blood Count Auto Di ffon 09-11-2021 Basophils (Bld) [#/Vol] 0.1 10*3/uL Normal 0.0-0.2 [facility] Comment on above: Result Comment: PERF ORMED BY: [place] [address] PATHOLOGIST [employer]INSM[employer] HELPER SANDY PEREZ M.D. Performed By: #### R PA W RFX #### [facility] , #### CBC #### [facility] [address] [place] [address] [place] Basophils/100 WBC (Bld) 1.1 % Normal . [facility] Comment on above: Performed By: #### R PA W RFX #### [facility] , #### CBC #### [facility] [address] [place] [address] Eosinophils (Bld) [#/Vol] 0.2 10*3/uL Normal 0.0-0.45 [facility] Comment on above: Performed By: #### R PA W RFX #### [facility] , #### CBC #### [address] Eosinophils/100 WBC (Bld) 1.7 % Normal . [facility] Comment on above: Performed By: #### R PA W RFX #### [facility] , #### CBC #### [address] Erythrocyte distribution width (RBC) [Ratio] 14.7 % Normal 11.9-15.3 [facility] Comment on above: Performed By: #### R PA W RFX #### [facility] , #### CBC #### [address] Hematocrit (Bld) [Volume fraction] 37.4 % Normal 34.0-46.4 [facility] Comment on above: Performed By: #### R PA W RFX #### [facility] , #### CBC #### [address] Hemoglobin (Bld) [Mass/Vol] 12.4 g/dL Normal 11.8-15.4 [facility] Comment on above: Performed By: #### R PA W RFX #### [facility] , #### CBC #### [address] Lymphocytes (Bld) [#/Vol] 2.4 10*3/uL Normal 1.00-4.8 [facility] Comment on above: Performed By: #### R PA W RFX #### [facility] , #### CBC #### [place] [address] [place] Lymphocytes/100 WBC (Bld) 19.6 % Normal . [facility] Comment on above: Performed By: #### R PA W RFX #### [facility] , #### CBC #### [facility] [address] MCH (RBC) [Entitic mass] 28.1 pg Normal 24.7-34.3 [facility] Comment on above: Performed By: #### R PA W RFX #### [facility] , #### CBC #### [facility] [address] MCV (RBC) [Entitic vol] 84.4 fL Normal 80-100 [facility] Comment on above: Performed By: #### R PA W RFX #### [facility] , #### CBC #### [facility] [address] [place] [address] Mean Corpuscular HGB Conc 33.2 g/dL Normal 32.0-35.0 [facility] Comment on above: Performed By: #### R PA W RFX #### [facility] , #### CBC #### [facility] [address] [place] [address] Monocytes (Bld) [#/Vol] 0.8 10*3/uL Normal 0.0-0.8 [facility] Comment on above: Performed By: #### R PA W RFX #### [facility] , #### CBC #### [facility] [address] [place] [address] [place] Monocytes/100 WBC (Bld) 6.6 % Normal . [facility] Comment on above: Performed By: #### R PA W RFX #### [facility] , #### CBC #### [facility] [address] [place] [address] Neutrophils (Bld) [#/Vol] 8.8 10*3/uL High 1.8-7.7 [facility] Comment on above: Performed By: #### R PA W RFX #### [facility] , #### CBC #### [facility] [address] [place] [address] Neutrophils/100 WBC (Bld) 71.0 % Normal . [facility] Comment on above: Performed By: #### R PA W RFX #### [facility] , #### CBC #### [facility] [address] [place] [address] Nucleated RBC/100 WBC (Bld) [Ratio] 0.1 % Normal 0-0.5 [facility] Comment on above: Performed By: #### R PA W RFX #### [facility] , #### CBC #### [address] Platelet mean volume (Bld) [Entitic vol] 7.4 fL Normal 6.3-10.7 [facility] Comment on above: Performed By: #### R PA W RFX #### [facility] , #### CBC #### [facility] [address] [place] [address] [place] Platelets (Bld) [#/Vol] 256 10*3/uL Normal 150-450 [facility] Comment on above: Performed By: #### R PA W RFX #### [facility] , #### CBC #### [facility] [address] [place] [address] [place] RBC (Bld) [#/Vol] 4.43 10*6/uL Normal 3.60-5.00 [facility] Comment on above: Performed By: #### R PA W RFX #### [facility] , #### CBC #### [facility] [address] [place] [address] [place] WBC (Bld) [#/Vol] 12.4 10*3/uL High 4.5-11.0 [facility] Comment on above: Performed By: #### R PA W RFX #### [facility] , #### CBC #### [facility] [address] Ketones Auto test strip (U) [Mass/Vol]Ordered By: PRESLEY TIMMONS on 09-11-2021 Ketones (U) [Mass/Vol] Negative Negative [facility] - Drug toxicology Ordered By: PRESLEY TIMMONS on 09-11-2021 Opiates Ql (U) Negative Negative [facility] Neisseria gonorrhoeae DNA [P resence] in Specimen by EMMA with probe detectionOrdered By: PRESLEY TIMMONS on 09-11-2021 N. gonorrhoeae DNA EMMA+probe Ql (Unsp spec) Negative Negative [facility] No Panel InformationOrdered By: PRESLEY TIMMONS on 09-11-2021 SARS Antigen (LFIA) [facility] OB Urine Drug Screen (NO THC )on 09-11-2021 Amphetamine Screen,Urine Negative Normal Negative [facility] Comment on above: Performed By: #### U A, OBUDS #### [facility] [address] [place] [address] [place] Barbiturate Screen,Urine Negative Normal Negative [facility] Comment on above: Performed By: #### U A, OBUDS #### [facility] [address] [place] [address] [place] Benzodiazepines Screen,Urine Negative Normal Negative [facility] Comment on above: Performed By: #### U A, OBUDS #### [facility] [address] [place] [address] [place] Cocaine Screen,Urine Negative Normal Negative [facility] Comment on above: Performed By: #### U A, OBUDS #### [facility] [address] [place] [address] [place] Opiate Screen,Urine Negative Normal Negative [facility] Comment on above: Performed By: #### U A, OBUDS #### [facility] [address] Phencyclidine Screen, Urine Negative Normal Negative [facility] Comment on above: Result Comment: Thes e are unconfirmed results and should not be used for legal purposes. Drug Cut-Off Concentration: AMPH 1000 ng/mL DANTE 200 ng/mL DONTA 200 ng/mL COCM 300 ng/mL OP 300 ng/mL PCP 25 ng/mL PERFORMED BY: [place] [address] PATHOLOGIST [employer] HELPER SANDY PEREZ M.D. Performed By: #### U A, OBUDS #### [address] Phencyclidine Screen Ql (U)O rdered By: PRESLEY TIMMONS on 09-11-2021 Phencyclidine Ql (U) Negative Negative [facility] Comment on above: These are unconfirme d results and should not be used for legal purposes. Drug Cut-Off Concentration: AMPH 1000 ng/mL DANTE 200 ng/mL DONTA 200 ng/mL COCM 300 ng/mL OP 300 ng/mL PCP 25 ng/mL Protein Auto test strip (U) [Mass/Vol]Ordered By: PRESLEY TIMMONS on 09-11-2021 Protein (U) [Mass/Vol] Negative Negative [facility] RPR w/rfx to Quant TP Abson 09-11-2021 RPR, Rfx Quant RPR Non-Reactive Normal Non Reactive [facility] Comment on above: Result Comment: Perf ormed at: - [facility] [address] [phone] Tax Processor: Surya Hazel PhD, Phone: [phone] PERFORMED BY: [place] [address] PATHOLOGIST [employer]SM[employer] HELPER SANDY PEREZ M.D. Performed By: #### R PA W RFX #### [facility] , #### CBC #### [address] Reagin Ab [Presence] in Seru m by RPROrdered By: PRESLEY TIMMONS on 09-11-2021 Reagin Ab RPR Ql (S) Non-Reactive Non Reactive [facility] Comment on above: Performed at: - [facility] [address] [phone] Tax Processor: Surya Hazel PhD, Phone: [phone] Chanel Ag Negativeon 09-12-19 Chanel Ag Negative Negative Normal Negative [facility] Comment on above: Result Comment: This is a duplicate Chanel SARS Antigen (IVET) result to be used for statistical tracking purpose only. PERFORMED BY: [place] [address] PATHOLOGIST [employer]INSM[employer] HELPER SANDY PEREZ M.D. Performed By: #### C OVID-19 CHANEL, SOFIANEG #### [address] Trichomonas vaginalis DNA [P resence] in Specimen by [facility] with probe detectionOrdered By: PRESLEY TIMMONS on 09-11-2021 T. vaginalis DNA EMMA+probe Ql (Unsp spec) Negative Negative [facility] Comment on above: Performed at: =[facility] - [facility] [address] [id number] Tax Processor: Glory Schaffer MD, Phone: [phone] Urinalysison 09-11-2021 Appearance (U) Clear Normal Clear [facility] Comment on above: Order Comment: Name Collection Type:: Voided Performed By: #### U A, OBUDS #### [place] [address] [place] Bilirubin,Urine Negative Normal Negative [facility] Comment on above: Order Comment: Name Collection Type:: Voided Performed By: #### U A, OBUDS #### [facility] [address] [place] [address] [place] Color (U) Yellow Normal Yellow [facility] Comment on above: Order Comment: Name Collection Type:: Voided Performed By: #### U A, OBUDS #### [place] [address] [place] Glucose Ql (U) Normal Normal Normal [facility] Comment on above: Order Comment: Name Collection Type:: Voided Performed By: #### U A, OBUDS #### [facility] [address] [place] [address] Ketones Ql (U) Negative Normal Negative [facility] Comment on above: Order Comment: Name Collection Type:: Voided Performed By: #### U A, OBUDS #### [address] Leukocyte esterase Test strip Ql (U) Negative Normal Negative [facility] Comment on above: Order Comment: Name Collection Type:: Voided Performed By: #### U A, OBUDS #### [address] Nitrite,Urine Negative Normal Negative [facility] Comment on above: Order Comment: Name Collection Type:: Voided Performed By: #### U A, OBUDS #### [address] Occult Blood,Urine Negative Normal Negative [facility] Comment on above: Order Comment: Name Collection Type:: Voided Result Comment: PERF ORMED BY: [place] [address] PATHOLOGIST [employer]INSM[employer] HELPER SANDY PEREZ M.D. Performed By: #### U A, OBUDS #### [address] pH (U) 6.0 [pH] Normal 5.0-9.0 [facility] Comment on above: Order Comment: Name Collection Type:: Voided Performed By: #### U A, OBUDS #### [place] [address] [place] Protein,Urine Negative Normal Negative [facility] Comment on above: Order Comment: Name Collection Type:: Voided Performed By: #### U A, OBUDS #### [address] Specificy Ewing,Urine 1.015 Normal 1.001-1.030 [facility] Comment on above: Order Comment: Name Collection Type:: Voided Performed By: #### U A, OBUDS #### [facility] [address] [place] [address] [place] Urobilinogen,Urine Normal Normal Normal [facility] Comment on above: Order Comment: Name Collection Type:: Voided Performed By: #### U A, OBUDS #### [facility] [address] [place] [id number] [facility] Urine appearanceOrdered By: PRESLEY TIMMONS on 09-11-2021 Appearance (U) Clear Clear [facility] Urine cocaine detectionOrder ed By: PRESLEY TIMMONS on 09-11-2021 Cocaine Ql (U) Negative Negative [facility] Urine colorOrdered By: PRESLEY TIMMONS on 09-11-2021 Color (U) Yellow Yellow [facility] Urine glucose measurement by automated test strip (mass/volume)Ordered By: PRESLEY TIMMONS on 09-11-2021 Glucose Auto test strip (U) [Mass/Vol] Normal mg/dL Normal [facility] Urine hemoglobin detection b y automated test stripOrdered By: PRESLEY TIMMONS on 09-11-2021 Hemoglobin Auto test strip Ql (U) Negative Negative [facility] Urine leukocyte esterase det ection by automated test stripOrdered By: PRESLEY TIMMONS on 09-11-2021 Leukocyte esterase Auto test strip Ql (U) Negative Negative [facility] Urine nitrite detection by a utomated test stripOrdered By: PRESLEY TIMMONS on 09-11-2021 Nitrite Auto test strip Ql (U) Negative Negative [facility] Urobilinogen Auto test strip (U) [Mass/Vol]Ordered By: PRESLEY TIMMONS on 09-11-2021 Urobilinogen (U) [Mass/Vol] Normal mg/dL Normal [facility] pH Auto test strip (U)Ordere d By: PRESLEY TIMMONS on 09-11-2021 pH (U) 1.015 [pH] 1.001-1.030 [facility] pH (U) 6.0 [pH] 5.0-9.0 [facility] CHEMISTRYOrdered By: SYSTEM SYSTEM on 07-02-2021 Glucose 3 Hr post 75 g glucose PO [Mass/Vol] 59 mg/dL Normal 55 - 140 mg/dL [facility] Rem[facility] Glucose 2 Hr post 75 g glucose PO [Mass/Vol] 100 mg/dL Normal 55 - 155 mg/dL [facility] Glucose 1 Hr post 75 g glucose PO [Mass/Vol] 169 mg/dL Normal 55 - 180 mg/dL [facility] Glucose post fast [Mass/Vol] 94 mg/dL Normal 55 - 99 mg/dL [facility] CHEMISTRYOrdered By: Kuldeep ROP User on 07-02-2021 Glucose [Mass/Vol] 89 mg/dL Normal 55 - 99 mg/dL [facility] Subsection POC Device SN [id number] Invalid Interpretation Code [facility] Subsection POC User ID [id number] Invalid Interpretation Code [facility] Subsection POC Username MYNOR GARCIA Invalid Interpretation Code [facility] Subsection URINALYSISOrdered By: Binh Gilliam on 06-13-2021 Bacteria LM Ql (Urine sed) 2+ /HPF Invalid Interpretation Code Trace/HPF [facility] Auto SS Bilirubin Ql (U) Negative (06/13/21 10:00 AM) Normal Negative [facility] UA Auto SS Clarity (U) Clear (06/13/21 10:00 AM) Normal Clear [facility] Auto SS Color (U) Yellow (06/13/21 10:00 AM) Normal Yellow [facility] UA Auto SS Epithelial cells.squamous LM.HPF (Urine sed) [#/Area] 5-8 /HPF Normal 0-2/HPF [facility] Aut o SS Glucose Test strip (U) [Mass/Vol] Negative (06/13/21 10:00 AM) Normal Negative [facility] UA Auto SS Hemoglobin Ql (U) Negative (06/13/21 10:00 AM) Normal Negative [facility] UA Auto SS Ketones (U) [Mass/Vol] Negative (06/13/21 10:00 AM) Normal Negative [facility] UA Auto SS Hemlock.plasma/Hemlock. RBC (Bld) [Mass ratio] 0-3 /HPF Normal 0-3/HPF [facility] A uto SS Mucus Ql (Urine sed) 3+ (06/13/21 10:00 AM) Normal [facility] UA Auto SS Nitrite Ql (U) Negative (06/13/21 10:00 AM) Normal Negative [facility] UA Auto SS pH (U) 6.5 *NA* (06/13/21 10:00 AM) Invalid Interpretation Code 5.0 - 9.0 [facility] UA Auto SS Protein (U) [Mass/Vol] Negative (06/13/21 10:00 AM) Normal Negative [facility] UA Auto SS Specific gravity (U) [Rel density] 1.015 *NA* (06/13/21 10:00 AM) Invalid Interpretation Code 1.005 - 1.030 [facility] UA Auto SS UA Spec Desc Random Urine (06/13/21 10:00 AM) Normal [facility] UA Auto SS Urobilinogen Qn (U) [id number] {Juma'U}/dL Normal 0.0 - 1.0 EU/dL [facility] [...] 11. 1 mg/dL [facility] Remisol Chloride [Moles/Vol] 103 mmol/L Normal 101 - 1 11 mmol/L [facility] Remisol CO2 [Moles/Vol] 22 mmol/L Normal 21 - 31 mmol/L [facility] Remisol Creatinine [Mass/Vol] 0.6 mg/dL Normal 0.5 - 1.3 mg/dL [facility] Remisol GFR/1.73 sq M.predicted among blacks MDRD (S/P/Bld) [Vol rate/Area] mL/min/1.73 m2 Normal >=59mL/min/1 .73 m2 [facility] Chem S GFR/1.73 sq M.predicted among non-blacks MDRD (S/P/Bld) [Vol rate/Area] mL/min/1.73 m2 Normal >=59mL/min/1 .73 m2 [facility] S Globulin (S) [Mass/Vol] 3.8 g/dL [...] 36.4 % Normal 34.0 - 46.0 % [facility] HemeAutoSS Hemoglobin (Bld) [Mass/Vol] 12.6 g/dL Normal 12.0 - 16.0 gm/dL [facility] HemeAutoSS MCH (RBC) [Entitic mass] 29.3 pg Normal 27.0 - 34.0 pg [facility] HemeAutoSS MCHC (RBC) [Mass/Vol] 34.6 g/dL Normal 31.4 - 36.0 gm/dL [facility] HemeAutoSS MCV (RBC) [Entitic vol] 84.9 fL Normal 80.0 - 100.0 fL [facility] HemeAutoSS Platelet mean volume (Bld) [Entitic vol] 7.1 fL Normal 6.4 - 10.8 fL [facility] HemeAutoSS Platelets (Bld) [#/Vol] 240.0 E9/L Normal 150. 0 - 500.0 E9/L [facility] HemeAutoSS RBC (Bld) [#/Vol] 4.3 E12/L Normal 4.3 - 5.9 E12/L [facility] HemeAutoSS WBC corrected for nucl RBC Auto (Bld) [#/Vol] 10.4 E9/L Normal 4.0 - 11.0 E9/L [facility] HemeAutoSS CHEMISTRYOrdered By: SYSTEM SYSTEM on 05-30-2021 Glucose 1 Hr post 75 g glucose PO [Mass/Vol] 199 mg/dL High 55 - 180 mg/dL [facility] Remisol HEMATOLOGYOrdered By: Minna King on 05-30-2021 Hematocrit (Bld) [Volume fraction] 35.0 % Normal 34.0 - 46.0 % [facility] Heme[facility] Hemoglobin (Bld) [Mass/Vol] 12.3 g/dL Normal 12.0 - 16.0 gm/dL [facility] Heme[facility] CBC AUTO DIFFon 02-11-2021 BASO # 0.1 103/ul Normal 0.0-0.1 [facility] Comment on above: Performed By: #### C BC #### [facility] [address] [address] [address] Shola Randolph Basophils/100 WBC (Bld) 0.4 % Normal 0.2-2.0 [facility] Comment on above: Performed By: #### C BC #### [facility] [address] [place] [address] Dr. Shola Randolph EO # 0.5 103/ul Normal 0.0-0.7 [facility] Comment on above: Performed By: #### C BC #### [facility] [address] [address] [address] Shola Randolph Eosinophils/100 WBC (Bld) 3.9 % Normal 0.9-7.0 [facility] Comment on above: Performed By: #### C BC #### [facility] [address] [place] [address] Dr. Shola Randolph Erythrocyte distribution width (RBC) [Ratio] 13.3 % Normal 11.0-15.0 [facility] Comment on above: Performed By: #### C BC #### [facility] [address] [place] [address] Dr. Shola Randolph Hematocrit (Bld) [Volume fraction] 42.0 % Normal 36.0-48.0 [facility] Comment on above: Performed By: #### C BC #### [facility] [address] [place] [address] Dr. Shola Randolph Hemoglobin (Bld) [Mass/Vol] 13.9 g/dL Normal 12.0-16.0 [facility] Comment on above: Performed By: #### C BC #### [facility] [address] [address] [address] Shola Randolph IG # 0.04 10e3/ul Critically high 0.00-0.03 [facility] Comment on above: Performed By: #### C BC #### [facility] [address] [address] [address] Shola Randolph IG % 0.3 % Normal 0.0-0.5 [facility] Comment on above: Performed By: #### C BC #### [facility] [address] [place] [address] Dr. Shola Randolph LYMPH # 2.5 103/ul Normal 1.2-3.8 [facility] Comment on above: Performed By: #### C BC #### [facility] [address] [place] [address] Dr. Shola Randolph Lymphocytes/100 WBC (Bld) 20.2 % Critically low 20.5-60.0 [facility] Comment on above: Performed By: #### C BC #### [facility] [address] [place] [address] Dr. Shola Randolph MANUAL DIFF REQ NO Normal [facility] Comment on above: Performed By: #### C BC #### [facility] [address] [place] [address] Dr. Shola Randolph MCH (RBC) [Entitic mass] 28.7 pg Normal 26.7-34.0 [facility] Comment on above: Performed By: #### C BC #### [facility] [address] [place] [address] Dr. Shola Randolph MCHC (RBC) [Mass/Vol] 33.1 g/dL Normal 29.9-35.2 [facility] Comment on above: Performed By: #### C BC #### [facility] [address] [place] [address] Dr. Shola Randolph MCV (RBC) [Entitic vol] 86.6 fL Normal 81.0-99.0 [facility] Comment on above: Performed By: #### C BC #### [facility] [address] [place] [address] Dr. Shola Randolph MONO # 0.8 103/ul Normal 0.3-0.8 [facility] Comment on above: Performed By: #### C BC #### [facility] [address] [place] [address] Dr. Shola Randolph Monocytes/100 WBC (Bld) 6.5 % Normal 1.7-12.0 [facility] Comment on above: Performed By: #### C BC #### [facility] [address] [place] [address] Dr. Shola Randolph NEUT # 8.5 103/ul Critically high 1.4-6.5 [facility] Comment on above: Performed By: #### C BC #### [facility] [address] [place] [address] Dr. Shola Randolph Neutrophils/100 WBC (Bld) 68.7 % Normal 43.0-75.0 [facility] Comment on above: Performed By: #### C BC #### [facility] [address] [place] [address] Dr. Shola Randolph Platelet mean volume (Bld) [Entitic vol] 8.4 fL Critically low 9.5-13.5 [facility] Comment on above: Performed By: #### C BC #### [facility] Laboratory [address] [place] [address] Dr. Shola Randolph PLT 246 103/ul Normal 150-450 [facility] Comment on above: Performed By: #### C BC #### [facility] [address] [place] [address] Dr. Shola Randolph RBC 4.85 106/ul Normal 4.20-5.40 [facility] Comment on above: Performed By: #### C BC #### [facility] [address] [place], [place] [id number] Dr. Shola Randolph WBC 12.4 103/ul Critically high 4.0-11.0 [facility] Comment on above: Performed By: #### C BC #### [facility] [address] [place] [address] Dr. Shola Randolph PROF 14(COMP METB)on 021 Albumin [Mass/Vol] 3.3 g/dL Critically low 3.5-5.0 [facility] Comment on above: Performed By: #### C MP #### [facility] [address] [place] [address] Dr. Shola Randolph Albumin/Globulin [Mass ratio] 0.8 {ratio} Normal [facility] Comment on above: Performed By: #### C MP #### [facility] [address] [place] [address] Dr. Shola Randolph ALP [Catalytic activity/Vol] 76 U/L Normal 38-126 [facility] Comment on above: Performed By: #### C MP #### [facility] [address] [place] [address] Dr. Shola Randolph ALT [Catalytic activity/Vol] 25 U/L Normal 9-52 [facility] Comment on above: Performed By: #### C MP #### [facility] [address] [place] [address] Dr. Shola Randolph Anion gap [Moles/Vol] 12.4 mmol/L Normal [facility] Comment on above: Performed By: #### C MP #### [facility] [address] [place] [address] Dr. Shola Randolph AST [Catalytic activity/Vol] 15 U/L Normal 14-36 [facility] Comment on above: Performed By: #### C MP #### [facility] [address] [place] [address] Dr. Shola Randolph Bilirubin [Mass/Vol] 0.3 mg/dL Normal 0.2-1.3 [facility] Comment on above: Performed By: #### C MP #### [facility] [address] [place] [address] Dr. Shola Randolph Calcium [Mass/Vol] 8.8 mg/dL Normal 8.4-10.2 [facility] Comment on above: Performed By: #### C MP #### [facility] [address] [place] [address] Dr. Shola Randolph Chloride [Moles/Vol] 102 mmol/L Normal 98-107 [facility] Comment on above: Performed By: #### C MP #### [facility] [address] [address] [address] Shola Randolph CO2 [Moles/Vol] 25.5 mmol/L Normal 22.0-30.0 [facility] Comment on above: Performed By: #### C MP #### [facility] [address] [address] [address] Shola Randolph Creatinine [Mass/Vol] 0.81 mg/dL Normal 0.52-1.04 [facility] Comment on above: Performed By: #### C MP #### [facility] [address] [place] [address] Dr. Shola Randolph EGFR-AF NEPALESE >60 Normal >=60 [facility] Comment on above: Performed By: #### C MP #### [facility] [address] [place] [address] Dr. Shola Randolph EGFR-NON AF NEPALESE >60 Normal >=60 [facility] Comment on above: Performed By: #### C MP #### [facility] [address] [address] [address] Shola Randolph Globulin (S) [Mass/Vol] 4.4 g/dL Normal [facility] Comment on above: Performed By: #### C MP #### [facility] [address] [address] [address] Shola Randolph Glucose [Mass/Vol] 88 mg/dL Normal 74-106 [facility] Comment on above: Performed By: #### C MP #### [facility] [address] [place] [address] Dr. Shola Randolph Potassium [Moles/Vol] 3.9 mmol/L Normal 3.4-5.0 [facility] Comment on above: Performed By: #### C MP #### [facility] [address] [address] [address] Shola Randolph Protein [Mass/Vol] 7.7 g/dL Normal 6.1-8.2 [facility] Comment on above: Performed By: #### C MP #### [facility] [address] [place], [place] [address] Dr. Shola Randolph Sodium [Moles/Vol] 136 mmol/L Critically low 137-145 [facility] Comment on above: Performed By: #### C MP #### [facility] [address] [place], [place] [address] Dr. Shola Randolph Urea nitrogen [Mass/Vol] 9.0 mg/dL Normal 7.0-17.0 [facility] Comment on above: Performed By: #### C MP #### [facility] [address] [address] [address] Shola Randolph Urea nitrogen/Creatinine [Mass ratio] 11.1 mg/mg Normal [facility] Comment on above: Performed By: #### C MP #### [facility] [address] [address] [address] Shola Randolph Vital Signs Date Time Vital Sign Value Performing Clinician Facility 10-08-2024 15:05-0400 Body mass index (BMI) [Ratio] 49.33 kg/m2 Zack Angel DO Work Phone: [facility] 10-08-2024 15:05-0400 Body weight 130.36 kg Zack Angel DO Work Phone: [facility] 10-08-2024 15:05-0400 Diastolic blood pressure 100 mm[Hg] Zack Angel DO Work Phone: [facility] 10-08-2024 15:05-0400 Systolic blood pressure 142 mm[Hg] Zack Angel DO Work Phone: [facility] 10-03-2024 14:26-0400 Body mass index (BMI) [Ratio] 50.98 kg/m2 Zack Angel DO Work Phone: [facility] 10-03-2024 14:26-0400 Body weight 134.72 kg Zack Angel DO Work Phone: [facility] 10-03-2024 14:26-0400 Diastolic blood pressure 100 mm[Hg] Zack Angel DO Work Phone: [facility] 10-03-2024 14:26-0400 Systolic blood pressure 154 mm[Hg] Zack Angel DO Work Phone: [facility] 09-17-2024 13:18-0400 Body mass index (BMI) [Ratio] 50.64 kg/m2 Gwen Anny PA Work Phone: [facility] 09-17-2024 13:18-0400 Body weight 133.81 kg Gwen Topanga PA Work Phone: [facility] 09-17-2024 13:18-0400 Diastolic blood pressure 70 mm[Hg] Gwen Anny PA Work Phone: [facility] 09-17-2024 13:18-0400 Systolic blood pressure 118 mm[Hg] Gwen Anny PA Work Phone: [facility] 08-21-2024 09:16-0400 Body temperature 97.5 [degF] Yixue Virk DDS Work Phone: [facility] 08-21-2024 09:16-0400 Diastolic blood pressure 90 mm[Hg] Yixue Virk DDS Work Phone: [facility] 08-21-2024 09:16-0400 Heart rate 86 /min Yixue Virk DDS Work Phone: [facility] 08-21-2024 09:16-0400 Systolic blood pressure 134 mm[Hg] Yixue Virk DDS Work Phone: [facility] 08-20-2024 14:57-0400 Body mass index (BMI) [Ratio] 48.58 kg/m2 Zack Angel DO Work Phone: [facility] 08-20-2024 14:57-0400 Body weight 128.37 kg Zack Angel DO Work Phone: [facility] 08-20-2024 14:57-0400 Diastolic blood pressure 74 mm[Hg] Zack Angel DO Work Phone: [facility] 08-20-2024 14:57-0400 Systolic blood pressure 122 mm[Hg] Zack Ortiz DO Work Phone: [facility] 08-15-2024 12:56-0400 Body temperature 98.1 [degF] Yieverette Virk DDS Work Phone: [facility] 08-15-2024 12:56-0400 Diastolic blood pressure 96 mm[Hg] Yixue Virk DDS Work Phone: [facility] 08-15-2024 12:56-0400 Heart rate 79 /min Yixue Virk DDS Work Phone: [facility] 08-15-2024 12:56-0400 Systolic blood pressure 138 mm[Hg] Aixjono Virk DDS Work Phone: [facility] 07-23-2024 15:23-0400 Body mass index (BMI) [Ratio] 47.38 kg/m2 Gwen SAAVEDRA Work Phone: [facility] 07-23-2024 15:23-0400 Body weight 125.19 kg Gwen SAAVEDRA Work Phone: [facility] 07-23-2024 15:23-0400 Diastolic blood pressure 78 mm[Hg] Gwen Mccormick PA Work Phone: [facility] 07-23-2024 15:23-0400 Systolic blood pressure 124 mm[Hg] Gwen Mccormick PA Work Phone: [facility] 04-18-2024 14:08-0500 Diastolic blood pressure 96 mm[Hg] [facility] 04-18-2024 14:08-0500 Heart rate 85 /min [facility] 04-18-2024 14:08-0500 Respiratory rate 20 /min [facility] 04-18-2024 14:08-0500 SaO2% (BldA) [Mass fraction] 99 % [facility] 04-18-2024 14:08-0500 Systolic blood pressure 136 mm[Hg] [facility] 04-18-2024 11:41-0500 Body temperature 98.06 [degF] [facility] 04-18-2024 11:41-0500 Diastolic blood pressure 94 mm[Hg] [facility] 04-18-2024 11:41-0500 Heart rate 106 /min [facility] 04-18-2024 11:41-0500 Respiratory rate 22 /min [facility] 04-18-2024 11:41-0500 SaO2% (BldA) [Mass fraction] 98 % [facility] 04-18-2024 11:41-0500 Systolic blood pressure 144 mm[Hg] [facility] 10-10-2023 10:13-0400 Blood Pressure Location REY ALAS [facility] 10-10-2023 10:13-0400 Body temperature 98.06 [degF] REY ALAS [facility] 10-10-2023 10:13-0400 Diastolic blood pressure 74 mm[Hg] REY ALAS [facility] 10-10-2023 10:13-0400 Heart rate 80 /min REY ALAS [facility] 10-10-2023 10:13-0400 Respiratory rate 15 /min REY ALAS [facility] 10-10-2023 10:13-0400 SaO2% (BldA) [Mass fraction] 98 % REY AL[facility] 10-10-2023 10:13-0400 Systolic blood pressure 122 mm[Hg] RE[facility] AL[facility] 07-08-2023 13:59-0400 Heart rate 107 /min Jagdishmiguel ángel Dunn [facility] 07-08-2023 13:59-0400 Respiratory rate 14 /min Jagdish Shaun [facility] 07-08-2023 13:59-0400 SaO2% (BldA) [Mass fraction] 98 % Jagdish Shaun [facility] 07-08-2023 12:49-0400 Body temperature 97.7 [degF] Jagdish Dunn [facility] 07-08-2023 12:49-0400 Diastolic blood pressure 94 mm[Hg] Ajgdish Shaun [facility] 07-08-2023 12:49-0400 Heart rate 120 /min Jagdish Shaun [facility] 07-08-2023 12:49-0400 Respiratory rate 15 /min Jagdish Shaun [facility] 07-08-2023 12:49-0400 SaO2% (BldA) [Mass fraction] 97 % Jagdish Shaun [facility] 07-08-2023 12:49-0400 Systolic blood pressure 134 mm[Hg] Jagdish Shaun [facility] 07-06-2023 08:45-0400 Blood Pressure Location REY ALAS [facility] 07-06-2023 08:45-0400 Diastolic blood pressure 86 mm[Hg] REY ALAS [facility] 07-06-2023 08:45-0400 Heart rate 78 /min REY ALAS [facility] 07-06-2023 08:45-0400 SaO2% (BldA) [Mass fraction] 99 % REYTyra ALAS [facility] 07-06-2023 08:45-0400 Systolic blood pressure 126 mm[Hg] REY ALAS [facility] 01-11-2023 19:48-0500 Diastolic blood pressure 96 mm[Hg] Jagdish Shaun [facility] 01-11-2023 19:48-0500 Heart rate 84 /min Jagdish Shaun [facility] 01-11-2023 19:48-0500 Mean blood pressure 108 mm[Hg] Jagdish Shaun [facility] 01-11-2023 19:48-0500 Respiratory rate 13 /min Jagdish Shaun [facility] 01-11-2023 19:48-0500 SaO2% (BldA) [Mass fraction] 97 % Jagdish Shaun [facility] 01-11-2023 19:48-0500 Systolic blood pressure 131 mm[Hg] Jagdish Shaun [facility] 01-11-2023 19:30-0500 Heart rate 85 /min Jagdish Shaun [facility] 01-11-2023 19:30-0500 Respiratory rate 17 /min Jagdish Shaun [facility] 01-11-2023 19:30-0500 SaO2% (BldA) [Mass fraction] 97 % Jagdish Shaun [facility] 01-11-2023 19:00-0500 Diastolic blood pressure 95 mm[Hg] Jagdish Shaun [facility] 01-11-2023 19:00-0500 Heart rate 87 /min Jagdish Shaun [facility] 01-11-2023 19:00-0500 Mean blood pressure 107 mm[Hg] Jagdish Shaun [facility] 01-11-2023 19:00-0500 Respiratory rate 11 /min Jagdish Shaun [facility] 01-11-2023 18:00-0500 Diastolic blood pressure 94 mm[Hg] Jagdish Shaun [facility] 01-11-2023 18:00-0500 Systolic blood pressure 135 mm[Hg] Jagdish Shaun [facility] 01-11-2023 16:10-0500 Body temperature 98.06 [degF] Jagdish Shaun [facility] 01-11-2023 16:10-0500 Heart rate 110 /min Jagdish Shaun [facility] 01-11-2023 16:10-0500 Respiratory rate 18 /min Jagdish Shaun [facility] 01-08-2023 14:21-0500 Body temperature 98.6 [degF] [facility] 01-08-2023 14:21-0500 Diastolic blood pressure 75 mm[Hg] [facility] 01-08-2023 14:21-0500 Heart rate 76 /min [facility] 01-08-2023 14:21-0500 Respiratory rate 18 /min [facility] 01-08-2023 14:21-0500 SaO2% (BldA) [Mass fraction] 97 % [facility] 01-08-2023 14:21-0500 Systolic blood pressure 116 mm[Hg] [facility] 01-08-2023 12:45-0500 Body temperature 98.24 [degF] [facility] 01-08-2023 12:45-0500 Diastolic blood pressure 79 mm[Hg] [facility] 01-08-2023 12:45-0500 Heart rate 110 /min [facility] 01-08-2023 12:45-0500 Respiratory rate 24 /min [facility] 01-08-2023 12:45-0500 SaO2% (BldA) [Mass fraction] 100 % [facility] 01-08-2023 12:45-0500 Systolic blood pressure 117 mm[Hg] [facility] 01-06-2023 16:45-0500 Diastolic blood pressure 87 mm[Hg] Jesus Sheetse [facility] 01-06-2023 16:45-0500 Heart rate 98 /min Jesus Sheetse [facility] 01-06-2023 16:45-0500 Mean blood pressure 97 mm[Hg] Jesus Sheetse [facility] 01-06-2023 16:45-0500 Respiratory rate 20 /min Jesus Sheetse [facility] 01-06-2023 16:45-0500 SaO2% (BldA) [Mass fraction] 97 % Jesus Armen [facility] 01-06-2023 16:45-0500 Systolic blood pressure 118 mm[Hg] Jesus Armen [facility] 01-06-2023 16:15-0500 Diastolic blood pressure 85 mm[Hg] Jesus Armen [facility] 01-06-2023 16:15-0500 Heart rate 98 /min Jesus Sheetse [facility] 01-06-2023 16:15-0500 Mean blood pressure 99 mm[Hg] Jesus Armen [facility] 01-06-2023 16:15-0500 Respiratory rate 18 /min Jesus Armen [facility] 01-06-2023 16:15-0500 SaO2% (BldA) [Mass fraction] 96 % Jesus Armen [facility] 01-06-2023 16:15-0500 Systolic blood pressure 127 mm[Hg] Jesus Armen [facility] 01-06-2023 15:45-0500 Diastolic blood pressure 87 mm[Hg] Jesus Armen [facility] 01-06-2023 15:45-0500 Heart rate 98 /min Jesus Armen [facility] 01-06-2023 15:45-0500 Mean blood pressure 102 mm[Hg] Jesus Armen [facility] 01-06-2023 15:45-0500 Respiratory rate 18 /min Jesus Sheetse [facility] 01-06-2023 15:45-0500 SaO2% (BldA) [Mass fraction] 97 % Jesus Armen [facility] 01-06-2023 15:45-0500 Systolic blood pressure 131 mm[Hg] Jesus Armen [facility] 01-06-2023 15:15-0500 Heart rate 114 /min Jesus Armen [facility] 01-06-2023 14:48-0500 Body temperature 102.02 [degF] Jesus Armen [facility] 01-06-2023 14:48-0500 Heart rate 115 /min Jesus Ayers [facility] 10-17-2022 17:02-0400 Diastolic blood pressure 69 mm[Hg] Jagdish Shaun [facility] 10-17-2022 17:02-0400 Heart rate 66 /min Jagdish Shaun [facility] 10-17-2022 17:02-0400 Mean blood pressure 79 mm[Hg] Jagdish Shaun [facility] 10-17-2022 17:02-0400 Respiratory rate 18 /min Jagdihs Shaun [facility] 10-17-2022 17:02-0400 SaO2% (BldA) [Mass fraction] 98 % Jagdish Shaun [facility] 10-17-2022 17:02-0400 Systolic blood pressure 100 mm[Hg] Jagdish Shaun [facility] 10-17-2022 16:43-0400 Hourly Rounding Jagdish Shanu [facility] 10-17-2022 16:43-0400 Promise to Return Jagdish Shaun [facility] 10-17-2022 16:42-0400 Diastolic blood pressure 65 mm[Hg] Jagdish Shaun [facility] 10-17-2022 16:42-0400 Heart rate 62 /min Jagdish Shaun [facility] 10-17-2022 16:42-0400 Mean blood pressure 80 mm[Hg] Jagdish Shaun [facility] 10-17-2022 16:42-0400 Respiratory rate 18 /min Jagdish Shaun [facility] 10-17-2022 16:42-0400 SaO2% (BldA) [Mass fraction] 99 % Jagdish Dunn [facility] 10-17-2022 16:42-0400 Systolic blood pressure 111 mm[Hg] Jagdish Shaun [facility] 10-17-2022 15:43-0400 Diastolic blood pressure 69 mm[Hg] Jagdish Shaun [facility] 10-17-2022 15:43-0400 Heart rate 68 /min Jagdish Dunn [facility] 10-17-2022 15:43-0400 Hourly Rounding Jagdish Dunn [facility] 10-17-2022 15:43-0400 Mean blood pressure 83 mm[Hg] Jagdish Dunn [facility] 10-17-2022 15:43-0400 Promise to Return Jagdish Dunn [facility] 10-17-2022 15:43-0400 Respiratory rate 18 /min Jagdish Dunn [facility] 10-17-2022 15:43-0400 SaO2% (BldA) [Mass fraction] 100 % Jagdish Dunn [facility] 10-17-2022 15:43-0400 Systolic blood pressure 111 mm[Hg] Jagdish Dunn [facility] 10-17-2022 14:49-0400 Hourly Rounding Jagdish Dunn [facility] 10-17-2022 14:49-0400 Promise to Return Jagdish Shaun [facility] 10-17-2022 13:04-0400 Body temperature 98.06 [degF] Jagdish Dunn [facility] 10-17-2022 13:04-0400 Heart rate 93 /min Jagdish Shaun [facility] 02-17-2022 21:00-0500 Diastolic blood pressure 91 mm[Hg] Jagdish Shaun [facility] 02-17-2022 21:00-0500 Heart rate 86 /min Jagdish Shaun [facility] 02-17-2022 21:00-0500 Mean blood pressure 106 mm[Hg] Jagdish Shaun [facility] 02-17-2022 21:00-0500 Respiratory rate 20 /min Jagdish Shaun [facility] 02-17-2022 21:00-0500 SaO2% (BldA) [Mass fraction] 98 % Jagdish Shaun [facility] 02-17-2022 21:00-0500 Systolic blood pressure 136 mm[Hg] Jagdish Shaun [facility] 02-17-2022 20:00-0500 Diastolic blood pressure 81 mm[Hg] Jagdish Shaun [facility] 02-17-2022 20:00-0500 Heart rate 91 /min Jagdish Shaun [facility] 02-17-2022 20:00-0500 Mean blood pressure 96 mm[Hg] Jagdish Shaun [facility] 02-17-2022 20:00-0500 Respiratory rate 16 /min Jagdish Shaun [facility] 02-17-2022 20:00-0500 Systolic blood pressure 125 mm[Hg] Jagdish Shaun [facility] 02-17-2022 19:44-0500 Diastolic blood pressure 98 mm[Hg] Jagdish Dunn [facility] 02-17-2022 19:44-0500 Heart rate 99 /min Jagdish Dunn [facility] 02-17-2022 19:44-0500 Mean blood pressure 112 mm[Hg] Jagdish Dunn [facility] 02-17-2022 19:44-0500 Respiratory rate 19 /min Jagdish Dunn [facility] 02-17-2022 19:44-0500 SaO2% (BldA) [Mass fraction] 97 % Jagdish Dunn [facility] 02-17-2022 19:44-0500 Systolic blood pressure 140 mm[Hg] Jagdish Dnun [facility] 02-17-2022 16:14-0500 Body temperature 98.96 [degF] Jagdish Dunn [facility] 02-17-2022 16:14-0500 Heart rate 112 /min Jagdish Dunn [facility] 11-10-2021 12:13-0400 Body temperature 97.88 [degF] Jesus Ayers [facility] 11-10-2021 12:13-0400 Diastolic blood pressure 88 mm[Hg] Jesus Ayers [facility] 11-10-2021 12:13-0400 Heart rate 93 /min Jesus Sheetse [facility] 11-10-2021 12:13-0400 Respiratory rate 16 /min Jesus Ayers [facility] 11-10-2021 12:13-0400 SaO2% (BldA) [Mass fraction] 99 % Jesus Sheetse [facility] 11-10-2021 12:13-0400 Systolic blood pressure 128 mm[Hg] Jesus Ayers [facility] 09-14-2021 16:00-0400 Diastolic blood pressure 98 mm[Hg] PHYSICIAN NO [facility] 09-14-2021 16:00-0400 Heart rate 106 /min PHYSICIAN NO [facility] 09-14-2021 16:00-0400 Respiratory rate 16 /min PHYSICIAN NO [facility] 09-14-2021 16:00-0400 SaO2% (BldA) [Mass fraction] 97 % PHYSICIAN NO [facility] 09-14-2021 16:00-0400 Systolic blood pressure 138 mm[Hg] PHYSICIAN NO [facility] 09-14-2021 08:00-0400 Body temperature 97.3 [degF] PHYSICIAN NO [facility] 09-11-2021 21:30-0400 Body height 165.1 cm PHYSICIAN NO [facility] 09-11-2021 21:30-0400 Body weight 111.13 kg PHYSICIAN NO [facility] 07-17-2021 11:18-0400 Diastolic blood pressure 80 mm[Hg] Jagdish Dunn [facility] 07-17-2021 11:18-0400 Heart rate 82 /min Jagdish Dunn [facility] 07-17-2021 11:18-0400 Respiratory rate 82 /min Jagdish Dunn [facility] 07-17-2021 11:18-0400 SaO2% (BldA) [Mass fraction] 99 % Jagdish Dunn [facility] 07-17-2021 11:18-0400 Systolic blood pressure 131 mm[Hg] Jagdish Dunn [facility] 07-17-2021 09:28-0400 Body temperature 97.88 [degF] Jagdish Dunn [facility] 07-17-2021 09:28-0400 Diastolic blood pressure 98 mm[Hg] Jagdish Dunn [facility] 07-17-2021 09:28-0400 Heart rate 85 /min Jagdish Dunn [facility] 07-17-2021 09:28-0400 Respiratory rate 18 /min Jagdish Dunn [facility] 07-17-2021 09:28-0400 SaO2% (BldA) [Mass fraction] 98 % Jagdish Dunn [facility] 07-17-2021 09:28-0400 Systolic blood pressure 145 mm[Hg] Jagdish Dunn [facility] 06-13-2021 12:30-0400 Hourly Rounding Una Qamar [facility] Comment on above: Result Comment: Pt eats her entire lunch without nausea; states the protonix took her nausea away. 06-13-2021 10:45-0400 Blood Pressure Location Una Qamar [facility] 06-13-2021 10:45-0400 Diastolic blood pressure 77 mm[Hg] Una Foote [facility] 06-13-2021 10:45-0400 Heart rate 81 /min Una Qamar [facility] 06-13-2021 10:45-0400 Mean blood pressure 92 mm[Hg] Una Foote [facility] 06-13-2021 10:45-0400 Respiratory rate 20 /min Una Foote [facility] 06-13-2021 10:45-0400 Systolic blood pressure 122 mm[Hg] Una Foote [facility] 06-13-2021 10:06-0400 Body temperature 98.06 [degF] Una Foote [facility] 06-13-2021 10:06-0400 Diastolic blood pressure 79 mm[Hg] Una Foote [facility] 06-13-2021 10:06-0400 Heart rate 83 /min Una Foote [facility] 06-13-2021 10:06-0400 Mean blood pressure 96 mm[Hg] Una Foote [facility] 06-13-2021 10:06-0400 Respiratory rate 20 /min Una Foote [facility] 06-13-2021 10:06-0400 Systolic blood pressure 131 mm[Hg] Una Foote [facility] 06-13-2021 10:00-0400 Blood Pressure Location Una Foote [facility] 06-04-2021 16:17-0400 Diastolic blood pressure 77 mm[Hg] [facility] 06-04-2021 16:17-0400 Heart rate 92 /min [facility] 06-04-2021 16:17-0400 Mean blood pressure 90 mm[Hg] [facility] 06-04-2021 16:17-0400 Respiratory rate 15 /min [facility] 06-04-2021 16:17-0400 SaO2% (BldA) [Mass fraction] 97 % [facility] 06-04-2021 16:17-0400 Systolic blood pressure 117 mm[Hg] [facility] 06-04-2021 15:07-0400 Diastolic blood pressure 86 mm[Hg] [facility] 06-04-2021 15:07-0400 Heart rate 99 /min [facility] 06-04-2021 15:07-0400 Mean blood pressure 106 mm[Hg] [facility] 06-04-2021 15:07-0400 Respiratory rate 17 /min [facility] 06-04-2021 15:07-0400 SaO2% (BldA) [Mass fraction] 100 % [facility] 06-04-2021 15:07-0400 Systolic blood pressure 146 mm[Hg] [facility] 06-04-2021 14:34-0400 Body temperature 98.6 [degF] [facility] 06-04-2021 14:34-0400 Diastolic blood pressure 87 mm[Hg] [facility] 06-04-2021 14:34-0400 Heart rate 105 /min [facility] 06-04-2021 14:34-0400 Mean blood pressure 108 mm[Hg] [facility] 06-04-2021 14:34-0400 Respiratory rate 18 /min [facility] 06-04-2021 14:34-0400 SaO2% (BldA) [Mass fraction] 96 % [facility] 06-04-2021 14:34-0400 Systolic blood pressure 149 mm[Hg] [facility] 05-13-2021 12:49-0400 Body temperature 97.7 [degF] Ariadne Murray [facility] 05-13-2021 12:49-0400 Diastolic blood pressure 70 mm[Hg] [facility] [facility] 05-13-2021 12:49-0400 Heart rate 88 /min Ariadne Murray [facility] 05-13-2021 12:49-0400 SaO2% (BldA) [Mass fraction] 98 % Ariadne Murray [facility] 05-13-2021 12:49-0400 Systolic blood pressure 110 mm[Hg] Ariadne Murray [facility] Encounters Encounter Date Encounter Type Care Provider Facility Start: 10-08-2024 End: 10-08-2024 ambulatory ZACK ANGEL Not Available Start: 10-08-2024 End: 10-08-2024 flow sheet Zack Angel DO Work Phone: GREG [facility] Comment on above: Third trimester preg perez ([facility]); 31 weeks gestation of ([facility]); Hypertension affecting in third trimester ([facility]) Start: 10-08-2024 End: 10-08-2024 Bamboo flowsheet Zack Angel DO Work Phone: [facility] Start: 10-08-2024 End: 10-08-2024 Bamboo flowsheet Zack Angel DO Work Phone: [facility] Start: 10-04-2024 End: 10-04-2024 Clinisync Result Encounter Zack Angel DO Work Phone: [facility] Unsolicited Start: 10-04-2024 End: 10-04-2024 Clinisync Result Encounter Zack Angel DO Work Phone: [facility] Unsolicited Start: 10-03-2024 End: 10-03-2024 flow sheet Zack Angel DO Work Phone: GREG [facility]O Comment on above: Third trimester preg perez ([facility]); Diet controlled gestational diabetes mellitus (GDM), antepartum ([facility]); Gestational diabetes mellitus (GDM), antepartum, gestational diabetes method of control unspecified ([facility]) Start: 10-03-2024 End: 10-03-2024 Clinisync Result Encounter Zack Angel DO Work Phone: [facility] Unsolicited Start: 10-03-2024 End: 10-03-2024 Clinisync Result Encounter Zack Angel DO Work Phone: [facility] Unsolicited Start: 10-03-2024 End: 10-03-2024 ambulatory ZACK ANGEL Not Available Start: 09-17-2024 End: 09-17-2024 Bamboo flowsheet Gwen SAAVEDRA Work Phone: [facility] Start: 09-17-2024 End: 09-17-2024 Bamboo flowsheet Gwen SAAVEDRA Work Phone: [facility] Start: 09-17-2024 End: 09-17-2024 flow sheet Gwen SAAVEDRA Work Phone: [facility] Comment on above: Size of fetus incons istent with dates in second trimester ([facility]) (Primary Dx); 28 weeks gestation of ([facility]) Start: 09-17-2024 End: 09-17-2024 ambulatory GWEN MCCORMICK Not Available Start: 08-29-2024 End: 08-29-2024 ambulatory ZACK ANGEL Not Available Start: 08-21-2024 End: 08-21-2024 Encounter identifier Yixue Virk DDS Work Phone: [facility] Start: 08-20-2024 End: 08-20-2024 ambulatory ZACK ANGEL Not Available Start: 08-20-2024 End: 08-20-2024 Patient encounter procedure Zack Angel DO Work Phone: [facility] Start: 08-20-2024 End: 08-20-2024 Periodic preventive med est patient 18-39 yrs Zack Angel DO Work Phone: [facility] Comment on above: Well woman exam with routine gynecological exam; Second trimester ([facility]); 24 weeks gestation of ([facility]); Exposure to STD; Need for maternal serum alpha-protein (MSAFP) screening ([facility]); Encounter for follow-up ultrasound of anatomy ([facility]) Start: 08-20-2024 End: 08-20-2024 Bamboo flowsheet Zack Angel DO Work Phone: [facility] Start: 08-20-2024 End: 08-23-2024 Bamboo flowsheet Zack Angel DO Work Phone: [facility] Start: 08-20-2024 End: 08-23-2024 Clinisync Result Encounter Zack Angel DO Work Phone: [facility] External Department Unsolicited Start: 08-20-2024 End: 08-21-2024 External Result Encounter Zack Angel DO Work Phone: [facility] External Department Unsolicited Start: 08-15-2024 End: 08-15-2024 Encounter identifier Bishnu Virk DDS Work Phone: [facility] Start: 08-15-2024 End: 08-15-2024 comprehensive oral evaluation - new or established patient Bishnu Virk DDS Work Phone: [facility] Start: 08-01-2024 ambulatory Delvinjono Virk [facility] Start: 07-23-2024 End: 07-23-2024 ambulatory GWEN MCCORMICK Not Available Start: 07-23-2024 End: 07-23-2024 flow sheet Gwen Mccormick PA Work Phone: [facility] Comment on above: Second trimester pre gnancy; 20 weeks gestation of ; Need for maternal serum alpha-protein (MSAFP) screening Start: 07-23-2024 End: 07-23-2024 ambulatory MANASA CONROY Not Available Start: 06-18-2024 End: 06-18-2024 Bamboo flowsheet Zack Angel DO Work Phone: [facility] Start: 06-18-2024 End: 06-18-2024 Bamboo flowsheet Zack Angel DO Work Phone: [facility] Start: 06-18-2024 End: 06-18-2024 flow sheet Zack Angel DO Work Phone: [facility] Comment on above: Screening, , for anatomic survey (Primary Dx); Second trimester ; 15 weeks gestation of ; Gestational diabetes mellitus (GDM), antepartum, gestational diabetes method of control unspecified; Elevated glucose tolerance test Start: 06-18-2024 End: 06-18-2024 ambulatory ZACK ANGEL Not Available Start: 2024 End: 05-28-2024 Clinisync Result Encounter Zack Angel DO Work Phone: [facility] External Department Unsolicited Start: 2024 End: 05-28-2024 Clinisync Result Encounter Zack Angel DO Work [...] GA: 11w1d Start: 05-18-2024 End: 05-18-2024 ambulatory ZACK ANGEL Not Available Start: 04-27-2024 End: 04-27-2024 ambulatory FIRE MARSHAL-C REY ALAS Facility:[facility] Start: 04-25-2024 ambulatory FIRE MARSHAL-C REY ALAS Facility:[facility] Start: 04-18-2024 End: 04-18-2024 Emergency department patient visit Alva Jo [facility] Start: 11-07-2023 ambulatory FIRE MARSHAL-C REY ALAS Facility:[facility] Start: 10-19-2023 End: 10-19-2023 ambulatory FIRE MARSHAL-C REY ALAS Facility[facility] Start: 10-19-2023 End: 10-19-2023 Patient encounter procedure REY ALAS [facility] Start: 10-10-2023 End: 10-10-2023 ambulatory FIRE MARSHAL-C REY ALAS Facility:[facility] Start: 10-10-2023 End: 10-10-2023 Patient encounter procedure REY ALAS [facility] Start: 07-25-2023 End: 07-25-2023 ambulatory FIRE MARSHAL-C REY ALAS Facility:[facility] Start: 07-25-2023 End: 07-25-2023 Patient encounter procedure REY ALAS [facility] Start: 07-08-2023 End: 07-08-2023 Emergency department patient visit Jagdish Dunn [facility] Start: 07-06-2023 End: 07-06-2023 ambulatory FIRE MARSHAL-C REY ALAS Facility:[facility] Start: 07-06-2023 End: 07-06-2023 Patient encounter procedure REY ALAS [facility] Start: 01-14-2023 End: 01-14-2023 Patient encounter procedure Ricarda Garcia [facility] Start: 01-11-2023 End: 01-11-2023 Emergency department patient visit Jagdish Dunn [facility] Start: 01-08-2023 End: 01-08-2023 Emergency department patient visit Alva Jo [facility] Start: 01-06-2023 End: 01-06-2023 Emergency department patient visit Jesus Ayers [facility] Start: 10-17-2022 End: 10-17-2022 Emergency department patient visit Jagdish Dunn [facility] Start: 02-17-2022 End: 02-17-2022 Emergency department patient visit Jagdish Dunn [facility] Start: 11-10-2021 End: 11-10-2021 Emergency department patient visit Jesus Ayers [facility] Start: 09-11-2021 End: 09-14-2021 Evaluation and management of inpatient Presley Timmons Facility:[facility] Start: 09-11-2021 End: 09-14-2021 Evaluation and management of inpatient PHYSICIAN [facility] Start: 08-14-2021 End: 09-14-2021 Pre-admission assessment Presley Timmons [facility] Start: 08-12-2021 End: 08-12-2021 Lab Drop off Presley Mitchelly [facility] Start: 07-17-2021 End: 07-17-2021 Emergency department patient visit Jagdish Dunn [facility] Start: 07-02-2021 End: 07-02-2021 Patient encounter procedure Jennifer SUERO [facility] Start: 06-14-2021 End: 07-15-2021 Pre-admission assessment Una Foote [facility] Start: 06-13-2021 End: 06-13-2021 OB Triage Una Foote [facility] Start: 06-04-2021 End: 06-04-2021 Emergency department patient visit Alva Jo [facility] Start: 05-30-2021 End: 05-30-2021 Patient encounter procedure Presley Timmons [facility] Start: 2021 End: 06-14-2021 Pre-admission assessment Presley Timmons [facility] Start: 05-13-2021 End: 05-13-2021 Patient encounter procedure Ariadne Murray [facility] Start: 02-11-2021 End: 02-11-[address] RORO GARNER Facility:[facility] Procedures Date Procedure Procedure Detail Performing Clinician Start: 10-08-2024 Urnls dip stick/tabl et rgnt non-auto w/o micrscp Zack Angel DO Work Phone: Start: 10-04-2024 ALL BUN Zack Fazi o DO Work Phone: Start: 10-04-2024 ALL URIC ACID Zack Get io DO Work Phone: Start: 10-04-2024 [facility] ALT Zack Fazi o DO Work Phone: Start: 10-04-2024 [facility] AST Zack Fazi o DO Work Phone: Start: 10-04-2024 [facility] CREATININE Zack Fa zio DO Work Phone: Start: 10-03-2024 US OB BPP W NON-STRESS Zack Angel DO Work Phone: Start: 10-03-2024 ALL BUN Zack Fazi o DO Work Phone: Start: 10-03-2024 ALL URIC ACID Zack Get io DO Work Phone: Start: 10-03-2024 [facility] ALT Zack Fazi o DO Work Phone: Start: 10-03-2024 [facility] AST Zack Fazi o DO Work Phone: Start: 10-03-2024 [facility] CREATININE Zack Fa zio DO Work Phone: Start: 10-03-2024 Urnls dip stick/tabl et rgnt non-auto w/o micrscp Gwen SAAVEDRA Work Phone: Start: 08-21-2024 End: 08-21-2024 Documentation of current medications Bishnu Virk [facility] Work Phone: Start: 08-21-2024 End: 08-21-2024 extraction, erupted tooth or exposed root (elevation and/or forceps removal) Delvinjono Virk DDS Work Phone: Start: 08-21-2024 End: 08-21-2024 nutritional counseling for control of dental disease Yirosamariajono Virk [facility] Work Phone: Start: 08-21-2024 End: 08-21-2024 oral hygiene instructions Yirosamariajono Virk DDS Work Phone: Start: 08-20-2024 RECURRENT VAGINITIS (HTRX) Zack Angel DO Work Phone: Start: 08-20-2024 Urnls dip stick/tabl et rgnt non-auto w/o micrscp Zack Angel DO Work Phone: Start: 08-20-2024 IGP,APTIMA HPV,AGE GDLN Zack Angel DO Work Phone: Start: 08-20-2024 Microscopic observat ion [Identifier] in Cervix by Cyto stain Gwen SAAVEDRA Work Phone: Start: 08-15-2024 End: 08-15-2024 bitewings - three radiographic images Bishnu Virk DDS Work Phone: Start: 08-15-2024 End: 08-15-2024 Documentation of current medications Bishnu Virk DDS Work Phone: Start: 08-15-2024 End: 08-15-2024 oral hygiene instructions Bishnu Virk DDS Work Phone: Start: 08-15-2024 End: 08-15-2024 panoramic radiographic image Bishnu Ko DS Work Phone: Start: 07-24-2024 Urnls dip stick/tabl et rgnt non-auto w/o micrscp Gwen SAAVEDRA Work Phone: Start: 06-18-2024 Urnls dip stick/tabl et rgnt non-auto w/o micrscp Zack Angel DO Work Phone: Start: 2024 [facility] DRUG SCREEN RAPI D (URINE) Zack Angel DO Work Phone: Start: 05-24-2024 BOX TEST Zack Fazi o DO Work Phone: Start: 05-22-2024 Urine test visual color cmprsn meths Zack Angel DO Work Phone: Cholecystectomy Ariadne Murray denies Ariadne Murray SARS Antigen (LFIA) PHYSICIA N NO FAMILY Plan of Treatment Date Care Activity Detail Author Start: 08-20-2029 Screening for malign ant neoplasm of cervix [facility] Start: 10-17-2024 End: 10-17-2024 Patient encounter procedure 10/17/2024 1:30 PM EDT Routine [facility] [address] [place] [id number] Zack Ortiz DO [address] [place] [address] [facility] Start: 10-15-2024 Influenza vaccination [facility] Start: 10-03-2024 End: 04-05-2025 US biophysical profile w non stress test US biophysical profile w non stress test Imaging Routine Gestational diabetes mellitus (GDM), antepartum, gestational diabetes method of control unspecified ([facility]) Expected: 10/03/2024 (Approximate), Expires: 04/05/2025 [facility] Work Phone: Comment on above: Expected: 10/03/2024 (Approximate), Expires: 04/05/2025 Start: 09-20-2024 End: 09-20-2024 US for US OB limited 1+ fetuses Imaging Routine Encounter for follow-up ultrasound of anatomy ([facility]) Expected: 09/20/2024, Expires: 09/20/2024 [facility] Work Phone: Comment on above: Expected: 09/20/2024 , Expires: 09/20/2024 Start: 09-17-2024 End: 01-17-2025 US for US OB follow up transabdominal approach Imaging Routine Size of fetus inconsistent with dates in second trimester ([facility]) Expected: 09/17/2024, Expires: 01/17/2025 [facility] Work Phone: Comment on above: Expected: 09/17/2024 , Expires: 01/17/2025 Start: 09-17-2024 End: 09-17-2024 Patient encounter procedure [facility] Comment on above: Arrived Start: 09-05-2024 Sabrina Richmond [facility] Work Phone: Start: 08-29-2024 End: 08-29-2024 Professional / ancillary services management 08/29/2024 1:00 PM EDT Ancillary Procedure [facility] [address] [place] [place] [address] [facility] Start: 08-21-2024 [facility] Work Phone: Start: 08-20-2024 End: 08-20-2024 Patient encounter procedure 08/20/2024 2:10 PM EDT Routine [facility] [address] [place] [address] Zack Ortiz, [address] [place], [place] [id number] [facility] Start: 08-15-2024 [facility] Work Phone: Start: 07-23-2024 End: 07-23-2024 Patient encounter procedure 07/23/2024 2:30 PM EDT Routine [facility] [address] [place] [address] Gwen Mccormick PA [address] [place], [place] [id number] [facility] Start: 07-23-2024 End: 08-22-2024 Alpha fetoprotein, maternal Alpha fetoprotein, maternal Lab Routine Need for maternal serum alpha-protein (MSAFP) screening Expected: 07/23/2024 (Approximate), Expires: 08/22/2024 [facility] Work Phone: Comment on above: Expected: 07/23/2024 (Approximate), Expires: 08/22/2024 Start: 07-23-2024 End: 07-23-2024 Professional / ancillary services management 07/23/2024 1:30 PM EDT Ancillary Procedure [facility] [address] [place] [id number] [facility] Start: 06-18-2024 End: 09-18-2024 US for US OB 14+ weeks anatomy scan Imaging Routine Screening, , for anatomic survey Expected: 06/18/2024, Expires: 09/18/2024 [facility] Work Phone: Comment on above: Expected: 06/18/2024 , Expires: 09/18/2024 Start: 06-18-2024 End: 06-18-2024 Patient encounter procedure [facility] Comment on above: Arrived Start: 2024 Screening for malign ant neoplasm of cervix [facility] Start: 05-18-2024 End: 05-18-2025 ABO/Rh ABO/Rh Lab Routine Missed menses , unspecified gestational age Expected: 05/18/2024 (Approximate), Expires: 05/18/2025 [facility] Comment on above: Expected: 05/18/2024 (Approximate), Expires: 05/18/2025 Start: 05-18-2024 End: 05-18-2025 Blood type and Indirect antibody screen panel - Blood Type and screen Lab Routine Missed menses , unspecified gestational age Expected: 05/18/2024 (Approximate), Expires: 05/18/2025 [facility] Work Phone: Comment on above: Expected: 05/18/2024 (Approximate), Expires: 05/18/2025 Start: 05-18-2024 End: 05-18-2025 Drugs of abuse panel - Urine by Screen method Rapid drug screen, urine Lab Routine , unspecified gestational age Encounter for supervision of normal first in first trimester Expected: 05/18/2024 (Approximate), Expires: 05/18/2025 [facility] Comment on above: Expected: 05/18/2024 (Approximate), Expires: 05/18/2025 Start: 09-14-2021 [facility] Work Phone: Start: 09-12-2021 Hospital admission [facility] Work Phone: Start: 09-11-2021 Delivery of Products of Conception, External Approach Delivery of Products of Conception, External Approach [facility] Start: 09-11-2021 Division of Female Perineum, External Approach Division of Female Perineum, External Approach [facility] Start: 09-11-2021 Drainage of Amniotic Fluid, Therapeutic from Products of Conception, Via Natural or Artificial Opening Drainage of Amniotic Fluid, Therapeutic from Products of Conception, Via Natural or Artificial Opening [facility] Start: 05-28-2015 Screening for malign ant neoplasm of cervix Pap Smear [facility] Bacteria identified in Urine by Culture Urine culture Microbiology Routine Missed menses Ordered: 05/18/2024 [facility] Comment on above: Ordered: 05/18/2024 CBC W Auto Different ial panel - Blood CBC and differential Lab Routine Missed menses , unspecified gestational age Ordered: 05/18/2024 [facility] Comment on above: Ordered: 05/18/2024 CHLAMYDIA TRACHOMATI S (GENITO/STI) CHLAMYDIA TRACHOMATIS (GENITO/STI) Lab Routine Exposure to STD Ordered: 08/20/2024 [facility] Comment on above: Ordered: 08/20/2024 Cytology Cervical or vaginal smear or scraping study Pap Smear Pathology and Cytology Routine Well woman exam with routine gynecological exam Ordered: 08/20/2024 [facility] Comment on above: Ordered: 08/20/2024 Hemoglobin A1c/Hemoglobin.total in Blood Hemoglobin A1c Lab Routine Missed menses , unspecified gestational age Ordered: 05/18/2024 [facility] Comment on above: Ordered: 05/18/2024 Hepatitis B virus surface Ag [Presence] in Serum or Plasma by Immunoassay Hepatitis B surface antigen Lab Routine Missed menses , unspecified gestational age Ordered: 05/18/2024 [facility] Comment on above: Ordered: 05/18/2024 Hepatitis C virus Ab [Presence] in Serum or Plasma by Immunoassay Hepatitis C antibody Lab Routine Missed menses , unspecified gestational age Ordered: 05/18/2024 [facility] Comment on above: Ordered: 05/18/2024 HIV-1/HIV-2 antigen/antibody combination immunoassay HIV-1 and HIV-2 antibodies Lab Routine Missed menses , unspecified gestational age Ordered: 05/18/2024 [facility] Comment on above: Ordered: 05/18/2024 Human papilloma viru s DNA [Presence] in Unspecified specimen by Probe with amplification HPV DNA probe, amplified Microbiology Routine Well woman exam with routine gynecological exam Ordered: 08/20/2024 [facility] Comment on above: Ordered: 08/20/2024 Neisseria gonorrhoea e DNA [Presence] in Unspecified specimen by EMMA with probe detection Neisseria gonorrhea DNA probe, direct Lab Routine Exposure to STD Ordered: 08/20/2024 [facility] Comment on above: Ordered: 08/20/2024 Patient Education Post- Di jelani Instructions ([facility] Work Phone: Patient referral [facility] Work Phone: Reagin Ab [Presence] in Serum by RPR RPR Lab Routine Missed menses , unspecified gestational age Ordered: 05/18/2024 [facility] Comment on above: Ordered: 05/18/2024 Rubella antibody, IgG Rubella an tibody, IgG Lab Routine Missed menses , unspecified gestational age Ordered: 05/18/2024 [facility] Comment on above: Ordered: 05/18/2024 SURESWAB(R) ADVANCED VAGINITIS PLUS, TMA SURESWAB(R) ADVANCED VAGINITIS PLUS, TMA Pathology and Cytology Routine Exposure to STD Ordered: 08/20/2024 [facility] Comment on above: Ordered: 08/20/2024 Immunizations Immunization Date Immunization Notes Care Provider Sivakumar raines 09-13-2021 tetanus toxoid, reduced diphtheria toxoid, and acellular pertussis vaccine, adsorbed PHYSICIAN ALEXIS [facility] 10-09-2020 SARS-CoV-2 (COVID-19 ) mRNA-1273 vaccine Ricarda Garcia [facility] Comment on above: Result Comment: 2022: TPVAL 09-29-2020 tetanus toxoid, reduced diphtheria toxoid, and acellular pertussis vaccine, adsorbed; Translations: [Boostrix (Tdap)] Ariadne Murray [facility] Comment on above: Result Comment: (L) deltoid Result Comment: (L) deltoid 11-26-2011 influenza virus vaccine, unspecified formulation Ricarda Garcia [facility] 02-12-2004 influenza virus vaccine, unspecified formulation Ricarda Garcia [facility] 03-01-2003 influenza virus vaccine, unspecified formulation Ricarda Garcia [facility] 12-17-1996 varicella virus vaccine Ricarda Garcia [facility] 10-19-1995 DTaP, unspecified formulation Ricarda Garcia [facility] 10-19-1995 haemophilus influenzae type b vaccine, PRP-T conjugate Ricarda Garcia [facility] 06-21-1995 measles, mumps and rubella virus vaccine Ricarda Garcia [facility] 03-09-1995 hepatitis B vaccine, pediatric or pediatric/adolescent dosage Ricarda Garcia [facility] 1994 DTaP, unspecified formulation Ricarda Garcia [facility] 1994 haemophilus influenzae type b vaccine, PRP-T conjugate Ricarda Garcia [facility] 1994 poliovirus vaccine, unspecified formulation Ricarda Garcia [facility] 1994 DTaP, unspecified formulation Ricarda Garcia [facility] 1994 haemophilus influenzae type b vaccine, PRP-T conjugate Ricarda Garcia [facility] 1994 hepatitis B vaccine, pediatric or pediatric/adolescent dosage Ricarda Garcia [facility] 1994 poliovirus vaccine, unspecified formulation Ricarda Garcia [facility] 1994 DTaP, unspecified formulation Ricarda Garcia [facility] 1994 haemophilus influenzae type b vaccine, PRP-T conjugate Ricardasavannah Garcia [facility] 1994 hepatitis B vaccine, pediatric or pediatric/adolescent dosage Ricarda Garcia [facility] 1994 poliovirus vaccine, unspecified formulation Ricarda Garcia [facility] NEGATED: Highlighted row has not occurred!07-06-2023 influenza virus vaccine, unspecified formulation RYE ALAS [facility] [place] Payers Date Payer Category Payer Medicaid [facility] [id number] 2024 Medicaid [id number] 2021 Self-pay 2021 Unknown [id number] 2021 [facility] [id number] 2021 Unknown [id number] 1994 Unknown [id number]. 593 1994 Unknown [id number] [id number]. 727 1994 Unknown [id number] [id number]. 727 1994 Unknown [id number] [id number]. 727 1994 Unknown [id number] [id number]. 72 1994 Unknown [id number] [id number]. 727 1994 Unknown [id number] 2.16.840.1.984554.3.579.2. 72 1994 Unknown [id number] [id number]. 727 1994 Unknown [id number] 2.16.840.1.294662.3.579.2. 72 1994 Unknown [id number] 2.16.840.1.989631.3.579.2. 72 1994 Unknown [id number] [id number]. 72 1994 Unknown [id number]. 716 1994 Unknown [id number] 2.16.840.1.952644.3.579.2. 1259 1994 Unknown [id number] 2.16.840.1.014091.3.579.2. 1259 1994 Unknown [id number] 2.16.840.1.976818.3.579.2. 1259 1994 Unknown [id number] 2.16.840.1.438941.3.579.2. 1259 1994 Unknown [id number] 2.16.840.1.986933.3.579.2. 9 1994 Unknown [id number] 2.16.840.1.903211.3.579.2. 9 1994 Unknown [id number] 2.16.840.1.824581.3.579.2. 1258 1994 Unknown [id number] 2.16.840.1.971779.3.579.2. 9 1994 Unknown [id number] 2.16.840.1.020732.3.579.2. 1258 1994 Unknown [id number] 2.16.840.1.664287.3.579.2. 9 1994 Unknown [id number] 2.16.840.1.222736.3.579.2. 1259 1959 Unknown [id number] Unknown [id number] 2.16.840.1.929862.3.579.2. 531 Social History Date Type Detail Facility Start: 10-03-2020 End: 07-06-2023 Tobacco smoking status Never smoked tobacco (finding) [facility] Tobacco smoking status Never [facility] End: 08-15-2015 Sex Assigned At Female [facility] Start: 1994 Sex Assigned At Female [facility] Start: 08-15-2024 End: 08-21-2024 Tobacco smoking status COIS Tobacco smoking consumption unknown [facility] Start: 03-15-2024 [facility] Start: 05-17-2024 Gender identity Identifies as female gender (finding) [facility] Start: 05-17-2024 Sexual orientation Bisexual (finding) [facility] Start: 08-15-2024 Alcohol intake Alcohol Use Details [facility] Sexual Orientation Straight or heterosexu al [facility] Work Phone: Medical Equipment Procedure Code Equipment Code Equipment Origin al Text Equipment Identifier Dates 1 strip by In Vi tro route Daily Use in the morning prior to breakfast, 1 hour after each meal for a total of 4times daily. [id number] Start: 06-18-2024 End: 07-18-2024 1 each by In Vit ro route Daily Use to check FSBS four times daily [id number] Start: 06-18-2024 End: 07-18-2024 Use as instructed [id number] Start: 10-03-2024 End: 10-03-2024 Goals Date Patient Goal Desired Activity /State Functional Status Date Assessment Result Facility 04-18-2024 Functional Status N/A [facility] 10-10-2023 Functional Status N/A [facility] 07-08-2023 Functional Status N/A [facility] 07-06-2023 Functional Status N/A [facility] 01-11-2023 Functional Status N/A [facility] 01-08-2023 Functional Status N/A [facility] 01-06-2023 Functional Status N/A [facility] 10-17-2022 Functional Status N/A [facility] 02-17-2022 Functional Status N/A [facility] 11-10-2021 Functional Status N/A [facility] 09-14-2021 Functional status Patient at [facility] Work Phone: Mental Status Date Assessment Result Facility 09-14-2021 Cognitive function Cognitive Sta tus Patient at Baseline [facility] Work Phone: Clinical Notes 05-13-2021 to 10-08-2024 Nayeli Randle LPN - 10/08/2024 2:20 PM EDTJane Lang LPN - 10/03/2024 2:20 PM KERI Pimentel - 09/17/2024 1:30 PM EDT Note Date & Type Note Facility 10-08-2024 History of Presen t illness Narrative Reason for Appointment: Patient ID: Sabrina Richmond is a 29 y.o. female who presents for Routine Visit Patient presents today for Return OB appointment. MEDICATIONS Current Outpatient Medications Medication Instructions ALBUTEROL IN Alcohol Swabs (Alcohol Prep Pad) 70 % pads 1 Pad, Topical, Daily, Use four times daily to check FSBS. Blood Glucose Monitoring Suppl (LoveSpace-The Vetted Net Glucometer) w/Device kit 1 kit, Does not [...] nursing note reviewed. Exam conducted with a skip tracer present. Vitals: Estimated body mass index is 49.33 kg/m as calculated from the following: Height as of 22: 5' 4 . Weight as of this encounter: 287 lb 6.4 oz. BP: (!) 142/100 No LMP recorded. Patient is . ASSESSMENT & PLAN ICD-10-CM 1. Third trimester ([facility]) Z34.93 Urine dip 2. 31 weeks gestation of ([facility]) Z3A.31 Urine dip Patient was seen at [facility] last week. Patient left AMA and was advised that it is recommended that she return to [place] until delivery as instructed. Patient declines and would like to continue locally at this time. Informed patient that if she experiences any symptoms then she is to return to [facility] to be monitored. Patient declines and will increase BP meds to Labetalol 300mg TID. Patient aware that she needs to continue her NST/BPPs and weekly office visits. Patient voiced that she has changed her diet and her diabetes is now under control. Documented by Nayeli Randle LPN on behalf of: Zack Ortiz DO documented in this encounter [facility] 10-03-2024 History of Presen t illness Narrative Reason for Appointment: Patient ID: Sabrina Richmond is a 29 y.o. female who presents for Weight Management Patient presents today for Return OB appointment. MEDICATIONS Current Outpatient Medications Medication Instructions ALBUTEROL IN Alcohol Swabs (Alcohol Prep Pad) 70 % pads 1 Pad, Topical, Daily, Use four times daily to check FSBS. Blood Glucose Monitoring Suppl (D-Care Glucometer) w/Device kit 1 kit, Does not [...] nursing note reviewed. Exam conducted with a skip tracer present. Vitals: Estimated body mass index is 50.98 kg/m as calculated from the following: Height as of 10/28/: 5' 4 . Weight as of this encounter: 297 lb. BP: (!) 154/100 No LMP recorded. Patient is . ASSESSMENT & PLAN ICD-10-CM 1. Third trimester ([facility]) Z34.93 POCT urinalysis dipstick manually resulted 2. Diet controlled gestational diabetes mellitus (GDM), antepartum ([facility]) O24.410 Return OB: Patient presents today for a routine obstetrics appointment. Patient is currently 30w6d . Patient states she is doing well but has complaints of being tired due to current . Patient has verbalizes frequent movement. labor precautions was discussed/given and patient was instructed to perform kick counts three times a day. Reviewed glucose log with pt in detail. Pt to be started on insulin. Pt to be referred to [facility] for diabetic ed and insulin prescription. Pt to start NST/BPP pt bp elevated, pt being sent to [facility] for obs. Orders Placed This Encounter Procedures POCT urinalysis dipstick manually resulted Follow Up: Patient is to return to office in 2 week for routine OB appointment. Documented by Jane Lang LPN on behalf of: Zack Ortiz DO documented in this encounter [facility] 09-17-2024 History of Presen t illness Narrative Reason for Appointment: Patient ID: Sabrina Richmond is a 29 y.o. female who presents for Routine Visit Patient presents today for Return OB appointment. MEDICATIONS Current Outpatient Medications Medication Instructions ALBUTEROL IN Alcohol Swabs (Alcohol Prep Pad) 70 % pads 1 Pad, Topical, Daily, Use four times daily to check FSBS. Blood Glucose Monitoring Suppl (D-Care Glucometer) w/Device kit 1 kit, Does not [...] (ANTIVERT) 25 mg SUMAtriptan (IMITREX) 25 mg terconazole (Terazol 7) 0.4 % vaginal cream 1 applicator, Vaginal, Nightly ALLERGIES No Known Allergies PROBLEMS Active Ambulatory Problems Diagnosis Date Noted No Active Ambulatory Problems Resolved Ambulatory Problems Diagnosis Date Noted No Resolved Ambulatory Problems No Additional Past Medical History HISTORY PAST MEDICAL HISTORY SOCIAL HISTORY History reviewed. No pertinent past medical history. Social History Tobacco Use Smoking status: Not [...] Exam Constitutional: Appearance: Normal appearance. She is normal weight. HENT: Head: Normocephalic. Cardiovascular: Rate and Rhythm: Normal rate. Pulses: Normal pulses. Pulmonary: Effort: Pulmonary effort is normal. Breath sounds: Normal breath sounds. Abdominal: Palpations: Abdomen is soft. Musculoskeletal: General: Normal range of motion. Neurological: General: No focal deficit present. Mental Status: She is alert and oriented to person, place, and time. Psychiatric: Mood and Affect: Mood normal. Behavior: Behavior normal. Thought Content: Thought content normal. Judgment: Judgment normal. Vitals and nursing note reviewed. Vitals: Estimated body mass index is 50.64 kg/m as calculated from the following: Height as of 10/28/22: 5' 4 . Weight as of this encounter: 295 lb. BP: 118/70 No LMP recorded. Patient is . ASSESSMENT & PLAN ICD-10-CM 1. 28 weeks gestation of ([facility]) Z3A.28 Return OB: Patient presents today for a routine obstetrics appointment. Patient is currently 28w4d . Patient states she is doing well but has complaints of being tired due to current . Patient has verbalizes frequent movement. labor precautions was discussed/given and patient was instructed to perform kick counts three times a day. Orders Placed This Encounter Procedures US OB follow up transabdominal approach Follow Up: Patient is to return to office in 2 week for routine OB appointment. Documented by KERI Velasquez on behalf of: EKRI Velasquez documented in this encounter [facility] 08-21-2024 History of Presen t illness Narrative Encounter Date [facility] Work Phone: 1(938) 863-227207-07-2025 History of Present illness Narrative* Berta Yoder MA - 08/20/2024 2:10 PM EDT Reason for Appointment: Patient ID: Sabrina Richmond is a 29 y.o. female who presents for Routine Visit Patient presents today for Return OB appointment. MEDICATIONS Current Outpatient Medications Medication Instructions ALBUTEROL IN Alcohol Swabs (Alcohol Prep Pad) 70 % pads 1 Pad, Topical, Daily, Use four times daily to check FSBS. Blood Glucose Monitoring Suppl (LoveSpace-The Vetted Net Glucometer) w/Device kit 1 kit, Does not [...] nursing note reviewed. Exam conducted with a skip tracer present. Vitals: Estimated body mass index is 47.38 kg/m as calculated from the following: Height as of 10/28/21: 5' 4 . Weight as of 07/23/24: 276 lb. BP: No LMP recorded. Patient is . ASSESSMENT & PLAN ICD-10-CM 1. Well woman exam with routine gynecological exam Z01.419 Pap Smear HPV DNA probe, amplified 2. Second trimester ([facility]) Z34.92 POCT urinalysis dipstick manually resulted 3. 24 weeks gestation of ([facility]) Z3A.24 4. Exposure to STD Z20.2 SURESWAB(R) ADVANCED VAGINITIS PLUS, TMA CHLAMYDIA TRACHOMATIS (GENITO/STI) Neisseria gonorrhea DNA probe, direct 5. Need for maternal serum alpha-protein (MSAFP) screening ([facility]) Z36.1 6. Encounter for follow-up ultrasound of anatomy ([facility]) Z36.2 US OB limited 1+ fetuses Return [...] by Berta Yoder MA on behalf of: alexandra Velasquez documented in this encounterSaint [facility] [id number] History of Present illness Narrative* Encounter Date Complaint History Of Prese nt Illness GREGG ESCOBEDO [facility] Work Phone: [phone]) 495-4598103827-11-1990 History of Present illness Narrative* KERI Velasquez - 07/23/2024 2:30 PM EDT Reason for Appointment: Patient ID: Sabrina Richmond is a 29 y.o. female who presents for Routine Visit Patient presents today for Return OB appointment. MEDICATIONS Current Outpatient Medications Medication Instructions ALBUTEROL IN Alcohol Swabs (Alcohol Prep Pad) 70 % pads 1 Pad, Topical, Daily, Use four times daily to check FSBS. Blood Glucose Monitoring Suppl (Predect Glucometer) w/Device kit 1 kit, Does not [...] nursing note reviewed. Exam conducted with a skip tracer present. Vitals: Estimated body mass index is 47.38 kg/m as calculated from the following: Height as of 22: 5' 4 . Weight as of this encounter: 276 lb. BP: 124/78 No LMP recorded. Patient is . ASSESSMENT & PLAN ICD-10-CM 1. Second trimester Z34.92 POCT urinalysis dipstick manually resulted 2. 20 weeks gestation of Z3A.20 3. Need for maternal serum alpha-protein (MSAFP) screening Z36.1 Alpha fetoprotein, maternal Alpha fetoprotein, maternal Return OB: Patient presents today for a routine obstetrics appointment. Patient is currently 20w4d . Patient states she is doing well but has complaints of being tired due to current . Patient has verbalizes frequent movement. labor precautions was discussed/given and patient was instructed to perform kick counts three times a day. Pt to have pap and cx's done next month. Pt had Anatomy US done at this visit. Pt is aware. Orders Placed This Encounter Procedures Alpha fetoprotein, maternal POCT urinalysis dipstick manually resulted Follow Up: Patient is to return to office in 4 week for routine OB appointment. Reviewed glucose log 84-120's with a few outliers 138-140. Will follow up with A1C at next visit. Documented by Manasa Conroy NP behalf of: Manasa Conroy NP documented in this encounterSaint [facility] [id number] History of Present illness Narrative* Manasa Conroy NP - 06/18/2024 1:40 PM EDT Reason for Appointment: Patient ID: Sabrina Richmond is a 29 y.o. female who presents for Routine Visit Patient presents today for Return OB appointment. MEDICATIONS Current Outpatient Medications Medication Instructions ALBUTEROL IN [employer] Allergy Relief-D12 5-120 MG 12 hr [...] nursing note reviewed. Exam conducted with a skip tracer present. Vitals: Estimated body mass index is 47 kg/m as calculated from the following: Height as of 10/28/21: 5' 4 . Weight as of 10/28/21: 273 lb 12.8 oz. BP: No LMP recorded. Patient is . ASSESSMENT & PLAN ICD-10-CM 1. Second trimester Z34.92 POCT urinalysis dipstick manually resulted 2. 15 weeks gestation of Z3A.15 Return OB: Patient presents today for a routine obstetrics appointment. Patient is currently 15w4d . Patient states she is doing well but has complaints of being tired due to current . Patient has verbalizes frequent movement. labor precautions was discussed/given and patient was instructed to perform kick counts three times a day. Orders Placed This Encounter Procedures POCT urinalysis dipstick manually resulted Follow Up: Patient is to return to office in 4 week for routine OB appointment. Patient desires testing glucose vs early 1 hour GTT. Will begin 2 week glucose testing at 16 weeks and 28 weeks for 2 weeks. We will send in glucose testing strips and supplies. Patient will begin ASA 81 mg Documented by Manasa Conroy NP on behalf of: Zack Ortiz DO documented in this encounterSaint John's Saint [facility] [id number] History of Present illness Narrative* Snehal Lamb MA - 05/18/2024 10:30 AM EDT Reason for Appointment: Patient ID: Sabrina Richmond is a 28 y.o. female who presents for Amenorrhea Patient presents today for a Nurse OB Intake appointment. Patient is 11w1d with a Estimated Date ofDelivery: 12/06/24 OB History Para Term AB Living [...] drink 6-8 glasses of water a day, eatno raw or undercooked meat, and [facility] Patient has also been advised to not change litter boxes and eat 6 small meals a day. Patient has been consulted regarding the do's and don'ts ofpregnancy. Patient was given labs and all questions [...] by: Snehal Lamb MA documented in this encounterSaint [facility]'s Saint [facility] HospitalMnzghjceak61-11-1809 Hospital Discharge instructions Patient Education 04/18/2024 14:10:03 Community-Acquired Pneumonia, Adult, Leib-ur-Hstb Community-Acquired Pneumonia, Adult Pneumonia is an infection [...] Follow these instructions at home: Medicines Take oqvj-jsw-obyawkm and prescription medicines only as told by [...] Ask your doctor if you have one ofthese. Getting your flu shot every year. Ask your doctor which type of shot is best for you. Going to the dentist as often as told. Washing your hands often with soap and water for at least 20 seconds. If you cannot use soap and water, use hand damper maker. Contact a doctor if: You have a [...] provider. Document Revised: 03/31/2022 Document Reviewed: 03/31/2022 [email or web address] Patient Education 2023 EPS Follow Up Care 04/18/2024 11:38:41 With:REY ALAS Address: [address] [place] [address]- Business (1) When:04/21/2024 13:47:32 Comments:Call Dr for diagnosis based follow up [facility] 03-05-2025 NoteED Patient Education Note Infectious Disease Community-Acquired Pneumonia, [...] these instructions at home: Medicines ??? Take gwbs-rxb-oafzkdj and prescription medicines only as told by your doctor. ??? Take cough medicine only if you are losing sleep. Cough medicine can keep your body from takingmucus away from your lungs. ??? If you [...] under your head or sleep in a recliningchair. ??? Return to your normal activities as [...] cannot use soap and water, use hand damper maker. Contact a doctor if: ??? You have [...] lungs. ??? Community-acquired pneumonia (more content not included)...[facility]03-05-2025 Evaluation + Plan noteExtracted from: Title:ED Note Author:Derick MS III, James Merida Date:04/18/24 Pneumonia (J18.9: Pneumonia, unspecified organism) Orders: albuterol, 1 puff(s), Inhalation, q6hr for wheezing, 18 gram, Refill(s) 0, [id number], 165, cm, 04/18/24 11:46:00 EST, Height/Length Dosing, 124.5, kg, 03/05/25 11:46:00 EST, Weight Dosing amoxicillin, 1,000 mg = 2 cap(s), Oral, q12hr, X 7 day(s), # 28 cap(s), Refills(s) 0, Pharmacy: [facility]/pharm[facility] #[id number], 165, cm, 04/18/24 11:46:00 EST, Height/Length Dosing, 124.5, kg, 04/18/24 11:46:00 EST, Weight Dosing Influenza A&B Ag Rapid COVID Antigen ([facility]) [facility] 05-24-2024 Hospital Discharge instructions Patient Education [...] if you feel dizzy. General instructions Take ckqg-rdl-cwhrlwy and prescription medicines only as told by [...] provider. Document Revised: 12/31/2020 Document Reviewed: 12/31/2020 [email or web address] Patient Education 2022 [employer]. 07/08/2023 14:32:37 Sinus Pain Sinus Pain Sinus [...] to cool or dry air. Medicines Take voeq-krd-qzbycaw and prescription medicines only as told by [...] provider. Document Revised: 01/03/2022 Document Reviewed: 01/03/2022 [email or web address] Patient Education 2022 [employer]. Follow Up Care 07/08/2023 12:48:51 With:REY ALAS Address: [address] [place] [address] [address] [place] [address]- Business (1) When:07/11/2023 14:12:36 [facility]05-24-2024 Evaluation + Plan noteExtracted from: Title:ED Note Author:Jarrell King PA-C te:07/08/23 Sinus headache (R51.9: Heada rowan, unspecified) Vertigo (R42: Dizziness and giddiness) Orders: ketorolac, 60 mg = 2 mL, Injection, IntraMuscular, Once, Stop date 07/08/23 13:55:00 EDT, STAT, Start date 07/08/23 13:55:00 EDT, 07/08/23 13:55:00 EDT loratadine-pseudoephedrine, 1 tab(s), Oral, q12hr for 10 day(s), 20 tab(s), Refill(s) 0, [facility]/pharmacy #[id number], 165.1, cm, 07/08/23 12:52:00 EDT, Height/Length Dosing, 127, kg, 07/08/23 12:52:00 EDT, Weight Dosing meclizine, 25 mg = 1 tab(s), Oral, TID, PRN for dizziness, # 15 tab(s), Refills(s) 0, Pharmacy: [facility]/pharmacy #[id number], 165.1, cm, 07/08/23 12:52:00 EDT, Height/Length Dosing, 127, kg, 07/08/23 12:52:00 EDT, Weight Dosing meclizine, 25 mg = 2 tab(s), Tab, Oral, Once, Stop date 07/08/23 13:02:00 EDT, STAT, Start date 07/08/23 13:02:00 EDT, 07/08/23 13:02:00 EDT XR Chest Single View Future Appointments Appointment Date:07/25/2023 08:40:00 AM Scheduled Provider:JOAQUÍN RODRIGUEZ Location:[facility] Appointment Type:[facility]05-22-2024 Hospital Discharge instructions Patient Education 07/06/2023 10:09:45 [...] Follow these instructions at home: Medicines Take cjsx-cxc-ilpeiky and prescription medicines only as told by [...] for Headache and Migraine Patients (CHAMP): headachemigraine.org [place] Migraine Foundation: americanmigrainefoundation.org National Headache Foundation: headaches.org [...] provider. Document Revised: 03/19/2020 Document Reviewed: 03/19/2020 [email or web address] Patient Education 2022 [employer]. Follow Up Care 06/28/2023 15:15:45 With:JOAQUÍN RODRIGUEZ FAM Address: When:4 weeks [facility] [place] 11-28-2023 Hospital Discharge instructions Patient Education 01/11/2023 19:37:18 Cervical Sprain, Nqkj-fk-Csgw Cervical Sprain A cervical sprain is also [...] Follow these instructions at home: Medicines Take ijmc-ciq-rlpmpcf and prescription medicines only as told by your doctor. Ask your doctor if the medicine prescribed to you: ?Requires you to avoid driving or using heavy machinery. ?Can cause trouble pooping (constipation). You may need to take these actions to prevent or treat trouble pooping: ?Drink enough fluid to keep your pee (urine) pale yellow. ?Take phws-yua-bzzptih or prescription medicines. ?Eat foods that are [...] provider. Document Revised: 05/10/2022 Document Reviewed: 10/10/2019 [email or web address] Patient Education 2022 [employer]. Follow Up Care 01/11/2023 15:55:53 With:CROW LYLES DO, FAM Address: When:1 to 2 days Comments:Call today to schedule your follow up [facility]11-25-2023 Hospital Discharge instructions Patient Education 01/08/2023 [...] if you feel dizzy. General instructions Take mrgm-hdc-erreoxq and prescription medicines only as told by [...] provider. Document Revised: 12/31/2020 Document Reviewed: 12/31/2020 [email or web address] Patient Education 2022 [email or web address] 01/08/2023 18:29:49 General Headache Without Cause General [...] help with your condition: Managing pain Take nioj-abv-armrnkb and prescription medicines only as told by [...] provider. Document Revised: 07/01/2021 Document Reviewed: 07/01/2021 [email or web address] Patient Education 2022 [employer]. Follow Up Care 01/08/2023 12:35:43 With:Terrell HAN Address: [address], [place] [address]- Business (1) When:01/11/2023 18:19:03 Comments:Return to the emergency room if your headache recurs, fever, vomiting, vision change or any new symptoms. [facility]11-25-2023 Evaluation + Plan noteExtracted from: Title:ED [...] or Brain w/o Contrast Extra SST Tube [facility]11-23-2023 Hospital Discharge instructions Follow Up Care 01/06/2023 14:44:33 With:[facility]TOK [facility] Address: [address] [place] [address]- Business (1) When:01/09/2023 17:03:00 With:XXXX NONE Address: [place] When:Within 3 Day(s) [facility]11-23-2023 Evaluation + Plan noteExtracted from: Title:ED [...] Tube Influenza A&B Ag Rapid COVID Antigen ([facility] [facility]09-03-2023 Hospital Discharge instructions Patient Education 10/17/2022 [...] younger than 2 years. Live in a snf. Travel on cruise ships. What are the [...] and water are not available, use hand damper maker. Make sure that all people in your household wash their hands well and often. Take ehcq-fwz-ubjwcde and prescription medicines only as told by [...] and water are not available, use hand damper maker. This information is not intended to replace advice given to you by your health care provider. Make sure you discuss any questions you have with your health care provider. Document Revised: 11/30/2021 Document Reviewed: 11/30/2021 [email or web address] Patient Education 2022 [employer]. Follow Up Care 10/17/2022 13:03:17 With:ROOSEVELT FRANK Address: [facility] [address] [address] [facility] (1) When:10/20/2022 17:25:20 Comments:Call the office of [...] weakness, or any new or worsening symptoms. [facility]09-03-2023 Evaluation + Plan noteExtracted from: Title:ED [...] was discharged home. Jagdish Dunn DO, WILFREDO [facility]01-04-2023 Hospital Discharge instructions Patient Education 02/17/2022 [...] if you start to feel better. Take ffgf-wrn-hwrgqyd and prescription medicines only as told by [...] 03/10/2005 Document Revised: 08/03/2018 Document Reviewed: 08/03/2018 [email or web address] Patient Education 2020 [employer]. 02/17/2022 21:17:10 Nausea and Vomiting, Adult Nausea [...] water added (diluted fruit juice). Eat bland, cihx-nb-gbxxze foods in small amounts as you are able. These foods include bananas, applesauce, rice, lean meats, toast, and crackers. Avoid fluids that contain a lot of sugar or caffeine, such as energy drinks, sports drinks, and soda. Avoid alcohol. Avoid spicy or fatty foods. General instructions Take zwlv-cqb-akteawf and prescription medicines only as told by your health care provider. Drink enough fluid to keep your urine pale yellow. Wash your hands often using soap and water. If soap and water are not available, use hand damper maker. Make sure that all people in your [...] eating and drinking to prevent dehydration. Take jwzj-nsw-kellznb and prescription medicines only as told by [...] 01/31/2006 Document Revised: 05/25/2019 Document Reviewed: 07/11/2018 [email or web address] Patient Education 2020 [employer]. 02/17/2022 21:17:10 Abdominal Pain, Adult Abdominal Pain, [...] Follow these instructions at home: Medicines Take pcya-uhx-hdrjckk and prescription medicines only as told by [...] Watch your condition for any changes. Take usnm-pun-hzxnpfe and prescription medicines only as told by [...] 11/10/2005 Document Revised: 06/11/2019 Document Reviewed: 06/11/2019 [email or web address] Patient Education 2020 [employer]. Follow Up Care 02/17/2022 15:51:20 With:Hosea John Address: [address] [place] [address] [place] [address]- When:02/20/2022 21:03:18 Comments:Return to the emergency room if your pain gets worse, vomiting, fever or any new symptoms [facility]01-04-2023 Evaluation + Plan noteExtracted from: Title:ED [...] Cult Reflex Addendum by Sandro Ramirez, As trit H on February 17, 2022 21:20:50 EST The care of the patient was transitioned to wa upon shift change to follow-up with CT [...] white count. Will discharge patient home with Leopoldo Mathur and Neal. The patient will follow up with her primary care. She is instructed to return to the emergency room if her pain gets worse, fever, vomiting recurs or any new symptoms. The findings and the care of plan were discussed with patient and her mother and they are both in agreement. Additional diagnosis: Enteritis [facility]09-27-2022 Hospital Discharge instructions Patient Education 11/10/2021 [...] Treatment for this condition includes: Antibiotic medicine. Lmky-ghx-faxwjzs medicines to treat discomfort. Drinking enough water [...] Follow these instructions at home: Medicines Take jhgq-cwu-fkvjchq and prescription medicines only as told by [...] 11/10/2005 Document Revised: 01/18/2019 Document Reviewed: 08/10/2018 [email or web address] Patient Education 2020 EPS Follow Up Care 11/10/2021 12:07:08 With:Horacio Link Address: Alisha Hernandez [facility] [address] [place] [address]- Business (1) When:11/13/2021 13:20:06 [facility]09-27-2022 Evaluation + Plan note Diagnostic Tests Pending * Urine Culture 11/10/21 [facility]08-01-2022 Progress note Author Radha Orona [facility] September 14, 2021 10:31am Note Date/Time September 14, 2021 10: 31am [facility] [address] [place] [id number]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 Patient comments: no complaints baby status: doing well and bottle feeding [...] % (Auto) 73.9, Lymph % (Auto) 18.5, Edmunds % (Auto) 6.5, Eos % (Auto) 0.8, Baso % (Auto) 0.3, Neut # (Auto) 9.7 H, Lymph # (Auto) 2.4, Edmunds # (Auto) 0.9 H, Eos # (Auto) 0.1, Baso # (Auto) 0.0, Nucleated RBC % (auto) 0.1 09/11/21 21:40: RPR w/Rflx to Titer Non reactive Assessment/Plan Assessment (1) 40 weeks gestation of : Code(s): Z3A.40 - 40 weeks gestation of Status: Acute (2) Status post vaginal delivery: Status: Acute Plan Ms. Richmond is a 26 yo status 2 days post vaginal delivery at 40 weeks 1 day. 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 Patient comments: no complaints Dickens baby status: doing well Dickens feeding status: exclusively breast feeding OB - [...] weeks gestation of Status: Acute Plan Ms. Richmond is a 26 yo female 1 day post vaginal delivery at 40 weeks gestation. Plan day: 1 Vaginal delivery plan (if applicable): routine care Documented By: PRESLEY TIMMONS MD 09/13/21 0654 Signed By: <Electronically signed by MD PRESLEY TIMMONS> 09/13/21 0854 [facility] Work Phone: 1(972) 626-468607-30-2022 [facility] + Plan note Diagnostic Tests Pending * Group B Streptococcus colonization by PCR 08/12/21 [facility]06-03-2022 Hospital Discharge instructions Patient Education 07/17/2021 [...] exercise. Managing pain, stiffness, and swelling Take hvso-mzw-lfposgp and prescription medicines only as told by [...] 01/31/2006 Document Revised: 01/13/2018 Document Reviewed: 03/02/2017 [email or web address] Patient Education 2020 [employer]. Follow Up Care 07/17/2021 09:19:46 With:Shannon SANCHEZ, Presley Sánchez Address: When:07/20/2021 [facility]04-30-2022 Evaluation + Plan note Diagnostic Tests Pending * Urine Culture 06/13/21 [facility]04-30-2022 Hospital Discharge instructions Follow Up Care 06/13/2021 09:58:45 With:Presley Timmons Address:Unknown When:06/24/2021 Comments:Call for any problems.Call for fever > 100.5 FCall for severe abdominal painCall physician for heavy vaginal bleedinCall physician if symptoms worsenReturn for decreased movementReturn if ruptured membranes or vaginalKeep next scheduled appt [facility]04-21-2022 Hospital Discharge instructions Patient Education 06/04/2021 [...] water added (diluted fruit juice). Eat bland, byhr-ag-airckv foods in small amounts as you are able. These foods include bananas, applesauce, rice, lean meats, toast, and crackers. Avoid fluids that contain a lot of sugar or caffeine, such as energy drinks, sports drinks, and soda. Avoid alcohol. Avoid spicy or fatty foods. General instructions Take xilh-vhf-ougqzii and prescription medicines only as told by your health care provider. Drink enough fluid to keep your urine pale yellow. Wash your hands often using soap and water. If soap and water are not available, use hand damper maker. Make sure that all people in your [...] eating and drinking to prevent dehydration. Take ihzo-rbl-dvjuclv and prescription medicines only as told by [...] 01/31/2006 Document Revised: 05/25/2019 Document Reviewed: 07/11/2018 [employer] Patient Education 2019 [employer]. Follow Up Care 06/04/2021 14:33:50 With:Ann-Marie Adithyagerman Address: [address] [place] [phone] Business (1) When:06/07/2021 16:06:44 [facility]04-21-2022 Evaluation + Plan noteExtracted from: Title:ED [...] q6hr, # 14 tab(s), Refills(s) 0, Pharmacy: [facility]/pharmacy #[id number], 165, cm, 06/04/21 14:38:00 EDT, Height/Length Dosing, 123, kg, 06/04/21 14:38:00 EDT, Weight Dosing Sodium Chloride 0.9% intravenous solution, 1,000 mL, Soln-IV, IV, Once, Stop date 06/04/21 14:53:00 EDT, STAT, Start date 06/04/21 14:53:00 EDT, mL/hr, Infuse over 61, minute(s) Automated Diff CBC w/ Auto Diff Comprehensive Metabolic Panel eGFR Extra Blue Tube Lipase Level UA With Cult Reflex [facility]03-30-2022 Hospital Discharge instructions Patient Education 05/13/2021 [...] 10/28/2004 Document Revised: 02/17/2017 Document Reviewed: 05/01/2016 [employer] Patient Education 2020 [employer]. 05/13/2021 13:28:44 Rapid Strep Test Rapid Strep [...] 03/10/2005 Document Revised: 05/25/2019 Document Reviewed: 10/04/2017 [employer] Patient Education 2019 [employer] Follow Up Care 05/13/2021 12:18:07 With:Nick DOMINGO, MIGDALIA Tompkins Address: [address] [place] [phone] When: Unknown [facility] Consult note* Clinical Note Date No Information [facility] Work Phone: Discharge summary* Clinical Note Date No Information [facility] Work Phone: Evaluation + Plan note No data available for this section [facility] Evaluation + Plan note Future Appointments Appointment Date:01/14/2023 01:40:00 PM Scheduled Provider:Ricarda Anthony Location:[facility] Appointment Type:FM [facility] Future Appointments Appointment Date:07/25/2023 08:40:00 AM Scheduled Provider:JOAQUÍN RODRIGUEZ Location:[facility] Appointment Type:[facility] Evaluation + Plan note Future Appointments Appointment Date:10/12/2023 08:00:00 AM Scheduled Provider: Location[facility] Appointment Type:MRI Brain () Appointment Date:11/07/2023 02:00:00 PM Scheduled Provider:JOAQUÍN RODRIGUEZ Location:[facility] Appointment Type: [facility] Scheduled Tests Radiology* MRI Brain w/ + w/o Contrast 10/12/23 [facility] Evaluation + Plan note Future Appointments Appointment Date:11/07/2023 02:00:00 PM Scheduled Provider:JOAQUÍN RODRIGUEZ Location:[facility] Appointment Type:[facility] Evaluation note* Diagnosis Onset Date Resolution Status 40 weeks gestation of acute Status post vaginal delivery acute [facility] Work Phone: Evaluation note* Diagnosis Missed menses Missed menses , unspecified gestational age Encounter for supervision of normal first in first trimester [facility] Diagnosis Screening, , for anatomic survey- Primary Encounter for anatomic survey Second trimester state, incidental 15 weeks gestation of Gestational diabetes mellitus (GDM), antepartum, gestational diabetes method of control unspecified Elevated glucose tolerance test Impaired glucose tolerance test [facility]* Diagnosis Second trimester state, incidental 20 weeks gestation of Need for maternal serum alpha-protein (MSAFP) screening [facility]* Diagnosis Well woman exam with routine gynecological exam Routine gynecological examination Second trimester (HHS-HCC) state, incidental 24 weeks gestation of (HHS-HCC) Exposure to STD Need for maternal serum alpha-protein (MSAFP) screening (HHS-HCC) Encounter for follow-up ultrasound of anatomy ([facility]) [facility]* Type Assessment Date No Information [facility] Work Phone: Evaluation note* Diagnosis Size of fetus inconsistent with dates in second trimester (HHS-HCC)- Primary 28 weeks gestation of ([facility]) [facility]* Diagnosis Third trimester (HHS-HCC) state, incidental 31 weeks gestation of (HHS-HCC) Hypertension affecting in third trimester ([facility]) [facility]* Diagnosis Third trimester (HHS-HCC) state, incidental Diet controlled gestational diabetes mellitus (GDM), antepartum ([facility]) Gestational diabetes mellitus (GDM), antepartum, gestational diabetes method of control unspecified ([facility]) documented [facility]* Clinical Note Date No Information [facility] Work Phone: History of Past illness Narrative* Condition Effective Dates (start - stop) O utcome No Information [facility] Work Phone: Hospital Discharge instructions No data available for this section [facility] Date Instruction Additional Infor mation No Information [facility] Work Phone: Progress note No data available for this section [facility] Clinical Note Date No Information [facility] Work Phone: Reason for referral (narrative) Referred by: JOAQUÍN RODRIGUEZ [facility] [place] Reason for referral (narrative)* Reason For Referral No Information [facility] Work Phone: Review of systems Narrative - Reported* System Pos/Neg Findings No Information [facility] Work Phone: Summary Purpose Family History No Family History Records Found Family Member Type Diagnosis Age At Onset No Information Advance Directives No Advanced Directives Records Found Advance Directive Response Recorded Date/ Time Advance Directives No September 10 1:39pm Directive Yes / No Effective Date File Name No Information Chief Complaint and Reason for Visit Chief Complaint IUP (Intrauterine Pr egnancy) Reason for Visit 40 weeks gestation o f Status post vaginal delivery Additional Source Comments INFORMATION SOURCE (unrecogn ized section and content) DATE CREATED AUTHOR 02/16/2021 [facility] DATE CREATED AUTHOR AUTHOR'S ORGANIZ ATION 02/24/2022 [facility] DATE CREATED AUTHOR AUTHOR'S ORGANIZ ATION 04/20/2024 [employer] [facility] DATE CREATED AUTHOR AUTHOR'S ORGANIZ ATION 04/30/2024 [facility] DATE CREATED AUTHOR AUTHOR'S ORGANIZ ATION 08/26/2024 [facility] DATE CREATED AUTHOR AUTHOR'S ORGANIZ ATION 10/09/2024 [facility] EPIC Care Team (unrecognized sect ion and content) Team Status: Inactive Member Role Status Dates PHYSICIAN NO FAMILY Primary Care Provider Active Presley Timmons MD Admit Provider, Attending Provider A ctive Team Status: Active Member Role Status Dates PHYSICIAN NO FAMILY Primary Care Provider Active Name Effective Dates (start - stop) Status Members No Information Reason for Visit (unrecogniz ed section and content) Reason Comments Amenorrhea Reason Comments Routine Visit Reason Comments Weight Management FOR RECORDS PERTAINING TO PATIENTS WHO ARE [...] BE BASED ON THE PRIMARY CLINICAL RECORDS. [employer] provides no warranty or guarantee of the accuracy or completeness of information in this document.
[2024-10-10 15:16] VITALS: BP 135/89; PULSE 77
== END 2024-10-10 15:28 | disposition home or self-care (01) ==
LOC: US 13:58 → FBC 14:00
PROVIDERS: Visit Provider Obstetrics & Gynecology
DX: O24.419 Gestational diabetes mellitus in pregnancy, unspecified control (principal)
CPT/HCPCS: 76818

== ENCOUNTER 2024-10-13 12:52 | Outpatient (OUT) | payer BC, OTHER, SELFPAY ==
--- OUTSIDE RECORDS SUMMARY | 2024-08-21 05:03 | XMS_ITS | Continuity of Care Document ---
Author Organization [facility] Address [address] [place] [address] Phone Care Team Providers Care Teaching Young Name Role Phone Bishnu Virk DDS Unavailable Unavailable Allergies, Adverse Reactions, Alerts Substance Reaction Status Criticality No Known Allergies Active No Inform ation Medications Medication Instructions Dosage Effective Dates (start - stop) Status Comments ibuprofen 200 mg capsule take 1 capsule by oral route every 6 hours as needed 200 MG - Active 28 mg iron-800 mcg tablet - Active Procedures Procedure Date Nutrit Couns For Control Of [place] Dis Aug Extract; Erupted Th/exposted Rt 025 Oral Hygiene Instruction Panoramic Film Bitewings-three Films Oral Hygiene Instruction Comp Oral Eval New/estab Patient 2024 Intraoral-periapical 1st Film Squjefqlr-[id number] Additional Jul Bitewig-single Film Oral Hygiene Instruction Limited Oral Eval Extract; Erupted Th/exposted Rt 025 Advance Directives Directive Yes / No Effective Date File Name No Information Encounters Encounter Description Practice Location Reason(s) For Visit Diagnoses Date Provider Providers Copied on Encounter [facility], [address] [place], [place], [id number], [place] tel:[phone] [facility] Dental Clinic ext (chief complaint) Encounter for screening for dental disorders Moose JAIMES Yixue. [address] [place] [address], [address], [place]. tel:[phone] [facility], [address] [place], [place], [address], [place] tel:[phone] Dental Clinic DL (chief complaint) Encounter for screening for dental disorders Moose JAIMES Yixjono. [address] [place], [address], . tel:[phone] [facility], [address] [place], [place], [id number], [place] tel:[phone] [facility] Dental Clinic Dental ER (chief complaint) Encounter for screening for dental disorders Moose TREJOS Yixjono. [address] [place], [address], [place]. tel:[phone] Family History Family Member Type Diagnosis Age At Onset No Information Payers Payer name Insurance type Covered constitution party ID Authoriza tion(s) D [employer] [facility] [id number] D Medicaid [facility] [id number] Social History Type Description Quantity Date Captured Comments Alcohol Use Details Unknown Caffeine Use Details Unknown Tobacco Use Status No Information Smoking Status No Information Sex Female Vital Signs Date / Time: Height Weight BMI Pulse Rate Blood Pressure Temperature Respiratory Rate Body Surface Area Head Circumference Head Circ. Percentile Wt./Darinel. Percentile BMI percentile Pulse Ox Inhaled Ox 9:16 AM 86 /min 134/90 mm[Hg] 97.50 F Chief Complaint And Reason For Visit From encounter dated '08/21/2024 09:03'. ext (chief complaint) Reason For Referral Reason For Referral No Information Plan Of Treatment Date Type Action Status Goal Tdap Vaccine. Due on 2024 due Goal Unhealthy drug use screening . Due on due Goal Influenza vaccine. Due on due Goal Depression screening. Due on due Goal HPV. Due on due Goal RLP. Due on due Goal PRAPARE ASSESSMENT. Due on due Goal Tdap. Due on due Goal Hepatitis C screening. Due o n due Goal Tdap. Due on due Goal Tdap Vaccine. Due on 2024 due Goal HPV. Due on due Goal Depression screening. Due on due Goal Influenza vaccine. Due on due Goal PRAPARE ASSESSMENT. Due on due Goal RLP. Due on due Goal Hepatitis C screening. Due o n due Goal Unhealthy drug use screening . Due on due Goal Hepatitis C screening. Due o n due Goal Influenza vaccine. Due on due Goal PRAPARE ASSESSMENT. Due on due Goal Depression screening. Due on due Goal Unhealthy drug use screening . Due on due Goal Tdap Vaccine. Due on 2024 due Goal Tdap. Due on due Goal HPV. Due on due Goal RLP. Due on due Appointment Sabrina Tovar BOOKED History Of Present Illness Encounter Date Complaint History Of Prese nt Illness ext DL DL Dental ER Dental er Functional Status Date Functional Assessmen t No Information Instructions Date Instruction Additional Infor mation No Information Assessments Type Assessment Date No Information Patient Care Teams Name Effective Dates (start - stop) Status Members No Information
--- OUTSIDE RECORDS SUMMARY | 2024-10-03 14:00 | XMS_ITS | Encounter Summary ---
Author Organization [facility] Address [address] [place] [address] Care Team Providers Care Explosive Specialist Name Role Phone Unavailable Primary Care Provider Unavailabl e Encounter Details Date Type Department Care Team (Latest Contact Info) Description 10/03/2024 2:00 PM EDT Ancillary Procedure [facility] Luis Armando MANZANO [address] [place] [address] Size of fetus inconsistent with dates in second trimester ([facility]) Social History Tobacco Use Types [...] [facility] Luis Armando MANZANO [address] [place] [address] Zack Ortiz DO [address], [place] [id number] documented as of this encounter Procedures Procedure Name Priority Date/Time Associated Diagnosis Comments US OB FOLLOW UP TRANSABDOMINAL APPROACH Routine 10/03/2024 2:16 PM EDT Size of fetus inconsistent with dates in second trimester ([facility]) documented in this encounter Results [...] II, MD, PHD at 04-Oct-2024 08:06:58 AM [facility] Procedure Note Una Webber MD - [...] signed by UNA WEBBER II, MD, PHD [id number] 08:06:58 AM [facility] us Gwen SAAVEDRA IMG OB US PROCEDURES Final Resul t documented in this encounter Visit Diagnoses Diagnosis Size of fetus inconsistent with dates in second trimester ([facility]) documented in this encounter
--- OUTSIDE RECORDS SUMMARY | 2024-10-03 14:20 | XMS_ITS | Encounter Summary ---
Author Organization [facility] Address [address] [place] [address] Care Team Providers Care Customizer Name Role Phone Unavailable Primary Care Provider Unavailabl e Reason for Visit * Reason Comments Weight Management Encounter Details Date Type Department Care Team (Late st Contact Info) Description 10/03/2024 2:20 PM EDT Routine GREG Durán OBGYN [address] [place] [address] Zack Ortiz DO [address] [facility] [address] [place], [facility]11 Third trimester ([facility]); Diet controlled gestational diabetes mellitus (GDM), antepartum ([facility]); Gestational diabetes mellitus (GDM), antepartum, gestational diabetes method of control unspecified ([facility]) Social History Tobacco Use Types Packs/Day Years [...] to check FSBS. Blood Glucose Monitoring Suppl ([employer] Glucometer) w/Device kit 1 kit, Does not [...] nursing note reviewed. Exam conducted with a captain room service present. Vitals: Estimated body mass index is 50.98 kg/m?? as calculated from the following: Height as of 10/28/22: 5' 4 . Weight as of this encounter: 297 lb. BP: (!) 154/100 No LMP recorded. Patient is . ASSESSMENT & PLAN ICD-10-CM 1. Third trimester ([facility]) Z34.93 POCT urinalysis dipstick manually resulted 2. Diet controlled gestational diabetes mellitus (GDM), antepartum ([facility]) O24.410 Return OB: Patient presents today for [...] on insulin. Pt to be referred to [facility] for diabetic ed and insulin prescription. [...] Routine [facility] Luis Armando OBGYN [address] [place] [address] Zack Ortiz DO [address] [place] [address] Scheduled Orders Name Type Priority Associated Diagnoses [...]
--- OUTSIDE RECORDS SUMMARY | 2024-10-04 12:23 | XMS_ITS | Encounter Summary ---
Author Organization [place] Address [id number] [address] [place] [address] Care Team Providers Care Wrinkle Chaser Name Role Phone Unavailable Primary Care Provider Unavailabl e Reason for Visit * Reason Comments transported from [facility] for p reeclampsia with se * Auth/Cert (Routine) Specialty Diagnoses / Procedures Referred By Jesus lau Referred To Contact Diagnoses Preeclampsia Severe preeclampsia Binh Yung MD [address] [place] [address], [address] [address] Phone: tel: fax: Referral ID Status Reason Start Date Expiration Date Visits Re quested Visits Authorized [id number] 1 1 Encounter Details Date Type Department Care Team (Latest Contact Info) Description 10/04/2024 12:23 PM EDT - 10/05/2024 3:01 PM EDT Hospital Encounter [facility] - GEN 3 Antepartum [address] [place] [address] Binh Yung MD [address] [place] [address], [address] [place], [place] [id number] Discharge Disposition: Left Against Medical Advice or [...] 1,578g (23%), DVP 3.6cm Julio Briceno MD Commissioning Editor Resident, PGY-4 Cosigned by Aleena Mills MD [...] Aleena Mills MD, FACOG (she/hers) Maternal- Medicine [facility] [address] 1[address] [place] [address] This document was created with [employer]self technology. Though I make every effort to review the dictation as it is transcribed, on occasion the spoken word can be misinterpreted by the technology leading to inappropriate words, phrases, or sentences. This note is addressed to the requesting provider as a consultation for clinical guidance. Specificmedical abbreviations are occasionally used and those are generally approved by the [place]?Board of?Obstetrics and?Gynecology?as well as?Antonia???s abbreviations. The above plan of care was based solely on the diagnoses for which a consultation was requested. ?More frequent testing may be indicated based on her other medical/obstetrical conditions. The management of other or medical conditions is beyond the scope of requested consultation and will c ontinue to be followed by the primary cancer program coordinator or primary care provider. * Hermelinda Emanuel [...] 2-16 Units, 2-16 Units, subcutaneous, Q4H, Kay Lvei MD labetaloL (NORMODYNE) tablet 200 mg, 200 [...] 31w1d wks presents as a transfer from [facility] with severe features (BP) Overnight BPs [...] changes made as necessary. Hermelinda Emanuel MD Commissioning Editor Resident PGY-3 10/05/24 7:26 AM Cosigned by [...] 31w0d who presents as a transfer from [place] with preeclampsia with severe features by blood [...] dose of ANCS. She was transported to [facility] for further management. Patient is tearful. [...] bpm, moderate variability, present acceleration, absent decelerations [facility]: none ASSESSMENT & PLAN Sabrina Tovar is a 29 y.o. @ 31w0d who presents as a transport from [place] with preeclampsia with severe features by severe [...] Continue labetalol 200 mg TID, titrate as [id number] GDM - BS q4h while on CLD [...] changes made as necessary. Kay Levi MD Commissioning Editor Resident PGY-2 10/04/24 5:23 PM Cosigned by [...] steroid course Consultations included Maternal- medicine social media community manager and NICU team No indication for delivery [...] wks who presents as a transfer from [facility] with preeclampsia w/ SF (BP criteria). She reports she went to her routine visit yesterday, and had elevated BP so her provider sent her to [facility] for further evaluation. Her blood pressure remained elevated, and she was kept overnight. She had multiple severe range BPs for which she received 20/40mg IV labetalol, and was started on Labetalol 200mg PO TID. At [place], her UPCR was 0.47 and other HELLP labs were wnl. She was then given ANCS, started on 4g magnesium sulfate bolus, and transferred to [facility]. At bedside today, pt reports a [...] on insulin with a referral to see [facility] diabetes management. She denies any history [...] 31w0d who presents as a transfer from [place] with Preeclampsia with SF. Preeclampsia with severe [...] changes made as necessary. Hermelinda Emanuel MD Commissioning Editor Resident PGY-3 10/04/24 2:49 PM Cosigned by [...] Aleena Mills MD, FACOG (she/hers) Maternal- Medicine [facility] [address] [facility] 1st [place] [address] This document was created with [employer]ivers[employer]self technology. Though I make every effort to review the dictation as it is transcribed, on occasion the spoken word can be misinterpreted by the technology leading to inappropriate words, phrases, or sentences. This note is addressed to the requesting provider as a consultation for clinical guidance. Specificmedical abbreviations are occasionally used and those are generally approved by the [place]?Board of?Obstetrics and?Gynecology?as well as?Antonia???s abbreviations. The above plan of care was based solely on the diagnoses for which a consultation was requested. ?More frequent testing may be indicated based on her other medical/obstetrical conditions. The management of other or medical conditions is beyond the scope of requested consultation and will c ontinue to be followed by the primary cancer program coordinator or primary care provider. documented in this encounter Nursing Notes * Racheal Blanco RN - 10/05/2024 2:59 PM EDT Patient left AMA to home in stable condition. RN discussed with patient warning signs to come back to OB emergency. Questions and concerns answered. Patient ambulated off unit per self. * Estrella Vazquez RN - 10/04/2024 4:03 PM EDT Radha at [facility] updated on patients arrival, current status, and plan of care. documented in this encounter Miscellaneous Notes * Plan of Care - Betty Lassiter RN - 10/04/2024 8:28 PM EDT Problem: Pain Goal: Patient goal is pain score less than 4, able to rest, and participant in treatment plan as appropriate Description: INTERVENTIONS: 1. Encourage patient or legal pharmaceutical sales representative to report early pain and [...] per policy 9. Teach patient or legal pharmaceutical sales representative interventions for comforting Outcome: Progressing [...] at the bedside 7. Instruct patient/ patient pharmaceutical sales representative about use of safety devices 8. Include patient/ patient pharmaceutical sales representative in decisions related to safety [...] hygiene technique. 7. Identify and instruct patient/patient pharmaceutical sales representative in use of appropriate isolation precautionsfor identified infection/symptoms. 8. Provide and discuss with patient/patient pharmaceutical sales representative on educational MDRO sheet. 9. Encourage and monitor nutritional status daily and consult grinder set up operator centerless if indicated. 10. Implement neutropenic guidelines as needed. Outcome: Progressing Note: Evaluation of progress towards goal: Patient is free from signs and symptoms of infection. Problem: Knowledge Deficit Goal: Patient/patient pharmaceutical sales representative demonstrates understanding of disease process, [...] Score of =/> 25 or indicated by [facility] Assessment Goal: Patient should be free from fall Description: Interventions: 1. [place] to environment 2. Hourly rounds addressing the [...] non-skid footwear 11. Teach patient and patient pharmaceutical sales representative to maintain environment for safety [...] (cane, walker) within reach 19. Request patient pharmaceutical sales representative bring adaptive equipment/mobility aids from home or obtain and provide as needed 20. Consult pharmacy regarding effects of med's affecting mobility, cognition, and alternatives 21. Obtain physician order for PT if risk factors associated with mobility are present 22. Obtain physician order for OT as appropriate 23. Utilize diversional activities 24. Educate patient and patient pharmaceutical sales representative how to maintain a safe environment during visitationtimes (notify nurse prior to leaving bedside) 25. Consider appropriateness of medical or non-biomedical engineering aide 26. Set up voiding schedule as appropriate [...] PM EDT Support Visit Maternal- Medicine at [facility] [address] [place] [id number] Krista Cruz RN [address] [facility], [address] [place] [address] Laura Weaver LD documented as of this [...] - 99 mg/dL 10/05/2024 12:[address] [facility] arterial/capilla ry 10/05/2024 11:55 AM EDT 10/05/2024 12:00 PM EDT us Binh Yung MD POINT OF CARE TEST ORDERABLES Final Result [facility] [address] [place] [address], [place] * Uric acid (10/05/2024 6:24 AM EDT) URIC ACID 6.4 2.6 - 7.2 mg/dL 10/05/2024 7:33 AM EDT [facility] Blood Venous blood / Unknown Venipuncture / Unknown 10/05/2024 6:24 AM EDT 10/05/2024 7:02 AM EDT us Kay Levi MD LAB BLOOD ORDERABLES Final Res ult Performing Organization Address City/[facility]/ZIP Co de Phone Number [facility] [address] [place] [address], [place] [phone] * LDH (10/05/2024 6:24 AM EDT) Pathologist [facility] LDH 138 100 - 235 U/L 10/05/2024 7:33 AM EDT [facility] Blood Venous blood / Unknown Venipuncture / Unknown 10/05/2024 6:24 AM EDT 10/05/2024 7:02 AM EDT Kay Levi MD LAB BLOOD ORDERABLES Final Res ult Performing Organization Address City/[facility]/ZIP Co de Phone Number [facility] [address] [place] [address], [place] [phone] * (ABNORMAL) Comprehensive metabolic panel (10/05/2024 6:24 AM EDT) SODIUM 135 134 - 146 mmol/L 10/05/2024 7:33 AM EDT [facility] POTASSIUM 4.0 3.5 - 5.0 mmol/L 10/05/2024 7:33 AM EDT [facility] CHLORIDE 105 98 - 109 mmol/L 10/05/2024 7:33 AM EDT [facility] CARBON DIOXIDE 20(L) 22 - 32 mmol/L 10/05/2024 7:33 AM [facility] ANION GAP 10 5 - 15 mmol/L 10/05/2024 7:33 AM T [facility] BLOOD UREA NITROGEN 8 5 - 23 mg/dL 10/05/2024 7:33 AM [facility] CREATININE 0.64 0.40 - 1.00 mg/dL 10/05/2024 7:33 AM [facility] Comment:METHOD TRACEABLE TO IDAL STANDARD GLUCOSE 111(H) 65 - 99 mg/dL 10/05/2024 7:33 AM [facility] CALCIUM 7.8(L) 8.5 - 10.5 mg/dL 10/05/2024 7:33 AM [facility] TOTAL PROTEIN 6.7 6.0 - 8.0 g/dL 10/05/2024 7:33 AM [facility] ALBUMIN 3.4 3.2 - 5.3 g/dL 10/05/2024 7:33 AM [facility] ALKALINE PHOSPHATASE 114 39 - 130 U/L 10/05/2024 7:33 AM [facility] AST 8 <=41 U/L 10/05/2024 7:33 AM [facility] ALT 5 <=31 U/L 10/05/2024 7:33 AM [facility] BILIRUBIN,TOTAL 0.3 0.3 - 1.2 mg/dL 10/05/2024 7:33 AM [facility] EGFR Non-Race Dependent >90 >=60 ml/min/1.7 3sq.m 10/05/2024 7:33 AM [facility] Comment: Reported eGFR is based on the CKD-EPI 2020 equation that does not use a race coefficient. EGFR not calculated due to patient's gender not being defined. Blood Venous blood / Unknown Venipuncture / Unknown 10/05/2024 6:24 AM EDT 10/05/2024 7:02 AM EDT us Kay Levi MD LAB BLOOD ORDERABLES Final Res ult [facility] [address] [place] [address], [place] [phone] * (ABNORMAL) CBC without diff (10/05/2024 6:24 AM EDT) WBC 14.8(H) 4 - 11 x10E9/L 10/05/2024 7:13 AM EDT [facility] RBC Count 4.69 3.8 - 5.2 X10E12/L 10/05/2024 7:13 AM EDT [facility] Hemoglobin 12.8 11.7 - 15.5 g/dL 10/05/2024 7:13 AM EDT [facility] Hematocrit 37.5 35 - 47 % 10/05/2024 7:13 AM EDT [facility] MCV 80 80 - 100 fL 10/05/2024 7:13 AM EDT [facility] MCH 27.2 27 - 34 pg 10/05/2024 7:13 AM EDT [facility] MCHC 34.0 32 - 36 g/dL 10/05/2024 7:13 AM EDT [facility] RDW 15.0 11.5 - 15 % 10/05/2024 7:13 AM EDT [facility] Platelet Count 276 150 - 450 X10E9/L 10/05/2024 7:13 AM EDT [facility] MPV 8.0 7 - 12 fL 10/05/2024 7:13 AM EDT [facility] Blood Venous blood / Unknown Venipuncture / Unknown 10/05/2024 6:24 AM EDT 10/05/2024 7:02 AM EDT us Kay Levi MD LAB BLOOD ORDERABLES Final Res ult [facility] [address] [place] [address], [place] [phone] * (ABNORMAL) Bedside Glucose *Place/Obtain serum glucose if >500 per glucometer. (10/05/2024 6:07 AM EDT) Bedside Glucose (POC) 119(H) 65 - 99 mg/dL 10/05/2024 6:[address] [facility] arterial/capilla ry 10/05/2024 6:07 AM EDT 10/05/2024 6:14 AM EDT us Binh Yung MD POINT OF CARE TEST ORDERABLES Final Result Performing Organization Address City/[facility]/ZIP Co de Phone Number [facility] [address] [place] [address], [place] * (ABNORMAL) Bedside Glucose *Place/Obtain serum glucose if >500 per glucometer. (10/05/2024 2:03 AM EDT) Bedside Glucose (POC) 133(H) 65 - 99 mg/dL 10/05/2024 2:[address] [facility] arterial/capilla ry 10/05/2024 2:03 AM EDT 10/05/2024 2:04 AM EDT us Binh Yung MD POINT OF CARE TEST ORDERABLES Final Result Performing Organization Address City/[facility]/ZIP Co de Phone Number [facility] [address] [place] [address], [place] * (ABNORMAL) Bedside Glucose *Place/Obtain serum glucose if >500 per glucometer. (10/04/2024 10:03PM EDT) Bedside Glucose (POC) 147(H) 65 - 99 mg/dL 10/04/2024 10:[address] [facility] arterial/capilla ry 10/04/2024 10:03 PM EDT 10/04/2024 10:05 PM EDT us Binh Yung MD POINT OF CARE TEST ORDERABLES Final Result Performing Organization Address City/[facility]/ZIP Co de Phone Number [facility] [address] [place] [address], [place] * Strep B screen (10/04/2024 8:55 PM EDT) [facility] CULTURE RESULTS POSITIVE FOR GROUP B STREPTOCOCCUS BY NUCLEIC ACID AMPLIFICATION 10/06/2024 12:59 AM EDT [facility] Swab (Vagina/Rectum) 10/04/2024 8:55 PM EDT 10/04/2024 9:15 PM EDT Narrative [facility] - 10/06/2024 12:59 AM EDT Group B streptococci remain universally susceptible to penicillin, ampicillin, and cefazolin. Resistance to clindamycin can occur. Please contact laboratory within 48 hours if clindamycin susceptibility testing is needed. us Evon Clement DO MICROBIOLOGY - GENERAL ORDER SONIA Final Result Performing Organization Address [facility] Co de Phone Number [facility] [address] [place] [address], [place] [phone] * (ABNORMAL) Bedside Glucose *Place/Obtain serum glucose if >500 per glucometer. (10/04/2024 6:13 PM EDT) [facility] Bedside Glucose (POC) 131(H) 65 - 99 mg/dL 10/04/2024 6:[address] [facility] arterial/capilla ry 10/04/2024 6:13 PM EDT 10/04/2024 6:15 PM EDT us Binh Yung MD POINT OF CARE TEST ORDERABLES Final Result Performing Organization Address [facility] Co de Phone Number [facility] [address] [place] [address], [place] * ABO Rh Repeat (10/04/2024 4:48 PM EDT) [facility] ABO A 10/04/2024 7:[address] [facility] RH Positive 10/04/2024 7:[address] [facility] Blood Venous blood / Unknown Venipuncture / Unknown 10/04/2024 4:48 PM EDT 10/04/2024 6:38 PM EDT Binh Yung MD BLOOD BANK TEST ORDERABLES Fin al Result Performing Organization Address City/[facility]/ZIP Co de Phone Number [facility] [address] [place] [address], [facility] [address] [place] [address], [place] * Uric acid (10/04/2024 4:48 PM EDT) URIC ACID 6.0 2.6 - 7.2 mg/dL 10/04/2024 5:43 PM EDT [facility] Blood Venous blood / Unknown Venipuncture / Unknown 10/04/2024 4:48 PM EDT 10/04/2024 4:58 PM EDT Kay Levi MD LAB BLOOD ORDERABLES Final Res ult Performing Organization Address City/[facility]/ZIP Co de Phone Number [facility] [address] [place] [address], [place] [phone] * LDH (10/04/2024 4:48 PM EDT) LDH 134 100 - 235 U/L 10/04/2024 5:43 PM EDT [facility] Blood Venous blood / Unknown Venipuncture / Unknown 10/04/2024 4:48 PM EDT 10/04/2024 4:58 PM EDT Kay Levi MD LAB BLOOD ORDERABLES Final Res ult [facility] [address] [place] [address], [place] [phone] * (ABNORMAL) Comprehensive metabolic panel (10/04/2024 4:48 PM EDT) SODIUM 136 134 - 146 mmol/L 10/04/2024 5:43 PM EDT [facility] POTASSIUM 4.2 3.5 - 5.0 mmol/L 10/04/2024 5:43 PM EDT [facility] CHLORIDE 106 98 - 109 mmol/L 10/04/2024 5:43 PM EDT [facility] CARBON DIOXIDE 19(L) 22 - 32 mmol/L 10/04/2024 5:43 PM EDT [facility] ANION GAP 11 5 - 15 mmol/L 10/04/2024 5:43 PM EDT [facility] BLOOD UREA NITROGEN 8 5 - 23 mg/dL 10/04/2024 5:43 PM EDT [facility] CREATININE 0.73 0.40 - 1.00 mg/dL 10/04/2024 5:43 PM EDT [facility] Comment:METHOD TRACEABLE TO IDMS STANDARD GLUCOSE 136(H) 65 - 99 mg/dL 10/04/2024 5:43 PM T [facility] CALCIUM 8.3(L) 8.5 - 10.5 mg/dL 10/04/2024 5:43 PM T [facility] TOTAL PROTEIN 6.6 6.0 - 8.0 g/dL 10/04/2024 5:43 PM EDT [facility] ALBUMIN 3.4 3.2 - 5.3 g/dL 10/04/2024 5:43 PM EDT [facility] ALKALINE PHOSPHATASE 119 39 - 130 U/L 10/04/2024 5:43 PM EDT [facility] AST 9 <=41 U/L 10/04/2024 5:43 PM EDT [facility] ALT 5 <=31 U/L 10/04/2024 5:43 PM T [facility] BILIRUBIN,TOTAL 0.2(L) 0.3 - 1.2 mg/dL 10/04/2024 5:43 PM EDT [facility] EGFR Non-Race Dependent >90 >=60 ml/min/1.7 3sq.m 10/04/2024 5:43 PM EDT [facility] Comment: Reported eGFR is based on the CKD-EPI 2020 equation that does not use a race coefficient. EGFR not calculated due to patient's gender not being defined. Blood Venous blood / Unknown Venipuncture / Unknown 10/04/2024 4:48 PM EDT 10/04/2024 4:58 PM EDT us Kay Levi MD LAB BLOOD ORDERABLES Final Res ult [facility] [address] [place] [address], [place] [phone] * CBC without diff (10/04/2024 4:48 PM EDT) WBC 10.9 4 - 11 x10E9/L 10/04/2024 5:23 PM EDT [facility] RBC Count 4.63 3.8 - 5.2 X10E12/L 10/04/2024 5:23 PM EDT [facility] Hemoglobin 12.6 11.7 - 15.5 g/dL 10/04/2024 5:23 PM EDT [facility] Hematocrit 37.0 35 - 47 % 10/04/2024 5:23 PM EDT [facility] MCV 80 80 - 100 fL 10/04/2024 5:23 PM EDT [facility] MCH 27.1 27 - 34 pg 10/04/2024 5:23 PM EDT [facility] MCHC 34.0 32 - 36 g/dL 10/04/2024 5:23 PM EDT [facility] RDW 15.0 11.5 - 15 % 10/04/2024 5:23 PM EDT [facility] Platelet Count 268 150 - 450 X10E9/L 10/04/2024 5:23 PM EDT [facility] MPV 7.9 7 - 12 fL 10/04/2024 5:23 PM EDT [facility] Blood Venous blood / Unknown Venipuncture / Unknown 10/04/2024 4:48 PM EDT 10/04/2024 4:58 PM EDT us Kay Levi MD LAB BLOOD ORDERABLES Final Res ult Performing Organization Address City/[facility]/ZIP Co de Phone Number [facility] [address] [place] [address], [place] [phone] * Buprenorphine, urnie (10/04/2024 3:40 PM EDT) BUPRENORPHINE, URINE QUALITATIVE Negative Negative 10/04/2024 5:09 PM EDT [facility] Urine Urine specimen collection, clean catch / Unknown 10/04/2024 3:40 PM EDT 10/04/2024 4:23 PM EDT [facility] - 10/04/2024 5:09 PM EDT Urine Buprenorphine cut of value = 10 ng/mL This report is intended for use in clinical monitoring or management of patients. us Yvon Vanegas MD URINE ORDERABLES Final Result Performing Organization Address [facility] Co de Phone Number [facility] [address] [place] [address], [place] [phone] * Fentanyl, Urine Qualitative (10/04/2024 3:40 PM EDT) FENTANYL, URINE QUAL. Negative Negative 10/04/2024 5:09 PM EDT [facility] Urine Urine specimen collection, clean catch / Unknown 10/04/2024 3:40 PM EDT 10/04/2024 4:23 PM EDT [facility] - 10/04/2024 5:09 PM EDT Fentanyl screening cutoff = 5ng/ml This report is intended for use in clinical monitoring or management of patients. us Yvon Vanegas MD URINE ORDERABLES Final Result [facility] [address] [place] [address], * Drug Screen, Urine (10/04/2024 3:40 PM EDT) AMPHETAMINE/METHAMP Negative Negative 10/04 5:09 PM EDT [facility] Comment:AMPH/METH screening cut off = 1000 ng/mL COCAINE METABOLITE Negative Negative 2024 5:09 PM EDT [facility] Comment:Cocaine screening cu t off value = 300 ng/mL ECSTASY Negative Negative 10/04/2024 5:09 PM EDT [facility] Comment:Ecstasy screening cu t off value = 500 ng/mL METHADONE Negative Negative 10/04/2024 5:09 PM EDT [facility] Comment:Methadone screening cut off value = 300 ng/mL. OPIATES Negative Negative 10/04/2024 5:09 PM EDT [facility] Comment: Opiates screening cut off value = 300 ng/mL This test is used for the detection of codeine, hydrocodone (>1000 ng/mL), morphine and hydromorphone (>900 ng/mL) in urine. OXYCODONE Negative Negative 10/04/2024 5:09 PM EDT [facility] Comment: Oxycodone screening cut off value = 300 ng/mL This test is used for the detection of oxycodone and oxymorphone in urine. PHENCYCLIDINE Negative Negative 10/04/2024 5:09 PM EDT [facility] Comment:Phencyclidine screen ing cut off value = 25 ng/mL CANNABINOIDS Negative Negative 10/04/2024 5:09 PM EDT [facility] Comment:Cannabinoids/THC scr eening cut off value = 50 ng/mL Urine Barbiturates Negative Negative 2024 5:09 PM EDT [facility] Comment:Barbiturates screeni ng cut off value = 200 ng/mL BENZODIAZEPINES Negative Negative 5:09 PM EDT [facility] Comment:Benzodiazepines scre ening cut off value = 200 ng/mL Urine Urine specimen collection, clean catch / Unknown 10/04/2024 3:40 PM EDT 10/04/2024 4:23 PM EDT us Yvon Vanegas MD URINE ORDERABLES Final Result [facility] [address] [place] [address], [place] [phone] * (ABNORMAL) Urine protein creatinine ratio (10/04/2024 3:40 PM EDT) URINE PROTEIN, RANDOM (MG/L) 140(H) <120 mg/L 10/04/2024 5:09 PM EDT [facility] URINE CREATININE,RDM 28.24 mg/dL 10/04/2024 5:09 PM EDT [facility] U/PRO/METER AND SERVICE LINE INSPECTOR RATIO CALC 0.50(H) <=0.20 10/04/2024 5:09 PM EDT [facility] Urine Urine specimen collection, clean catch / Unknown 10/04/2024 3:40 PM EDT 10/04/2024 4:23 PM EDT Narrative [facility] - 10/04/2024 5:09 PM EDT Nephrotic Syndrome is associated with ratios >3.5 us Yvon Vanegas MD URINE ORDERABLES Final Result [facility] [address] [place] [address], [place] [phone] * [place] [facility] COMPREHENSIVE ANATOMIC SURVEY (10/04/2024 3:20 PM EDT) Anatomical Region Laterality Modality OB-NURSE ADVISOR Ultrasound 10/04/2024 2:51 PM EDT Narrative 10/04/2024 5:21 PM EDT NAME: BASILIO ALARCON : 1995 SEX: F Accession Number: [id number] ORDERING PHYSICIAN: YVON VANEGAS REFERRING PHYSICIAN: LUCÍA LEDESMA Coding ----- --------- Procedures [id number]: Ultrasound, uterus, real time with image documentation, [...] EFW (oz) 8 oz EFW by: Hadlock ([id number]) Extended Tibia 47.6 mm 28w 6d 7% Isac Casing Cleaner 3.0 mm CM 5.2 mm 7% Nicolaides [...] Heart / Thorax 4-chamber view. 3-vessel view. 6-bhkgwv-axgeuik view. Interventricular septum. Great vessels. Diaphragm. Abdomen [...] ALARCON : 1995 SEX: F Accession Number: [id number] ORDERING PHYSICIAN: YVON VANEGAS REFERRING PHYSICIAN: LUCÍA LEDESMA Coding ----- --------- Procedures [id number]: Ultrasound, uterus, real time with imagedocumentation, and [...] EFW (oz) 8 oz EFW by: Hadlock ([id number]) Extended Tibia 47.6 mm 28w 6d 7% Isac Casing Cleaner 3.0 mm CM 5.2 mm 7% Nicolaides [...] Heart / Thorax 4-chamber view. 3-vessel view. 3-aheyco-jbmakha view.Interventricular septum. Great vessels. Diaphragm. Abdomen Kidneys. [...] - 99 mg/dL 10/04/2024 2:[address] [facility] arterial/capilla ry 10/04/2024 2:20 PM EDT 10/04/2024 2:22 PM EDT us Binh Yung MD POINT OF CARE TEST ORDERABLES Final Result [facility] [address] [place] [address], [place] * ABO Rh Repeat (10/04/2024 1:02 PM EDT) ABO A 10/04/2024 4:[address] [facility] RH Positive 10/04/2024 4:[address] [facility] Blood Venous blood / Unknown Venipuncture / Unknown 10/04/2024 1:02 PM EDT 10/04/2024 1:19 PM EDT Kay Levi MD BLOOD BANK TEST ORDERABLES Fin al Result [facility] [address] [place] [address], [facility] [address] [place] [address], [place] * Type and screen(includes indirect reanna) (10/04/2024 1:02 PM EDT) ABO A 10/04/2024 2:[address] [facility] RH Positive 10/04/2024 2:[address] [facility] Antibody Screen Negative 10/04/2024 2:[address] [facility] Blood Venous blood / Unknown Venipuncture / Unknown 10/04/2024 1:02 PM EDT 10/04/2024 1:19 PM EDT Kay Levi MD BLOOD BANK TEST ORDERABLES Paco walter Result - Final Performing Organization Address City/[facility]/ZIP Co de Phone Number [facility] [address] [place] [address], [facility] [address] [place] [address], * Syphilis Total (Unknown Syphilis Status) (10/04/2024 1:02 PM EDT) SYPHILIS TOTAL <0.2 <=0.8 AI 10/04/2024 3:16 PM EDT [facility] Blood Venous blood / Unknown Venipuncture / Unknown 10/04/2024 1:02 PM EDT 10/04/2024 1:13 PM EDT Narrative [facility] - 10/04/2024 3:16 PM EDT NON REACTIVE No serologic evidence of infection to Treponema pallidum. Repeat testing may be considered in patients with suspected acute or primary syphilis in 2 to 4 weeks. us Kay Levi MD LAB BLOOD ORDERABLES Final Res ult Performing Organization Address City/[facility]/ZIP Co de Phone Number [facility] [address] [place] [address], * Uric acid (10/04/2024 1:02 PM EDT) URIC ACID 5.7 2.6 - 7.2 mg/dL 10/04/2024 1:50 PM EDT [facility] Blood Venous blood / Unknown Venipuncture / Unknown 10/04/2024 1:02 PM EDT 10/04/2024 1:13 PM EDT Kay Levi MD LAB BLOOD ORDERABLES Final Res ult [facility] [address] [place] [address], * LDH (10/04/2024 1:02 PM EDT) [facility] LDH 140 100 - 235 U/L 10/04/2024 1:50 PM EDT [facility] Blood Venous blood / Unknown Venipuncture / Unknown 10/04/2024 1:02 PM EDT 10/04/2024 1:13 PM EDT Kay Levi MD LAB BLOOD ORDERABLES Final Res ult [facility] [address] [place] [address], * (ABNORMAL) CBC without diff (10/04/2024 1:02 PM EDT) [facility] WBC 11.0 4 - 11 x10E9/L 10/04/2024 1:28 PM EDT [facility] RBC Count 4.77 3.8 - 5.2 X10E12/L 10/04/2024 1:28 PM EDT [facility] Hemoglobin 12.9 11.7 - 15.5 g/dL 10/04/2024 1:28 PM EDT [facility] Hematocrit 38.1 35 - 47 % 10/04/2024 1:28 PM EDT [facility] MCV 80 80 - 100 fL 10/04/2024 1:28 PM EDT [facility] MCH 27.1 27 - 34 pg 10/04/2024 1:28 PM EDT [facility] MCHC 33.9 32 - 36 g/dL 10/04/2024 1:28 PM EDT [facility] RDW 15.4(H) 11.5 - 15 % 10/04/2024 1:28 PM EDT [facility] Platelet Count 262 150 - 450 X10E9/L 10/04/2024 1:28 PM EDT [facility] MPV 8.0 7 - 12 fL 10/04/2024 1:28 PM EDT [facility] Blood Venous blood / Unknown Venipuncture / Unknown 10/04/2024 1:02 PM EDT 10/04/2024 1:13 PM EDT Kay Levi MD LAB BLOOD ORDERABLES Final Res ult [facility] [address] [place] [address], [place] [phone] * Chlamydia/GC by PCR Young Swab (08/20/2024) Chlamydia Dna(Pcr) negative Gonorrhoeae Dna(Pcr) negative Swab Result [facility] Lucía R Angel DO MICROBIOLOGY - GENERAL ORDERABL ES Final Result * Hepatitis B surface antigen (2024) Hepatitis B Surface Antigen negative Blood Venous blood / Unknown Result [facility] Lucía R Angel DO LAB [...] immune Blood Venous blood / Unknown Result [facility] Lucía R [employer] LAB BLOOD ORDERABLES Final Resu lt * Syphilis Total (Unknown Syphilis Status) (2024) Syphilis nonreactive Blood Venous blood / Unknown Lucía R [employer] LAB BLOOD ORDERABLES Final Resu lt documented [...] Every 8 hours scheduled, First dose on [facility] 10/04/24 at 1415, Look-alike/sound-alike medication - verify [...] g/hr (50 mL/hr), intravenous, Continuous, Starting on [facility] 10/04/24 at 1300, For 5 days, Stop [...]
--- OUTSIDE RECORDS SUMMARY | 2024-10-04 14:31 | XMS_ITS | Encounter Summary ---
Author Organization [facility] Address [id number] [address] [place] [address] Care Team Providers Care African History Professor Name Role Phone Unavailable Primary Care Provider Unavailabl e Reason for Visit * Auth/Cert (Routine) Specialty Diagnoses / Procedures Referred By Jesus t Referred To Contact Diagnoses Preeclampsia Severe preeclampsia Binh Yung MD [address] [place] [address], [address] [address] Phone: tel: fax: Referral ID Status Reason Start Date Expiration Date Visits Re quested Visits Authorized [id number] 1 1 Encounter Details Date Type Department Care Team (Latest Contact Info) Description 10/04/2024 2:31 PM EDT - 10/04/2024 11:59 PM EDT Hospital Encounter [facility] US Imaging [address] [place] [address] Discharge Disposition: Home Social History Tobacco Use [...] PM EDT Support Visit Maternal- Medicine at [facility] [address] [place] [phone] Krista Cruz, RN [address] [facility], [facility] [place] [address] Laura Weaver LD documented as of this encounter Procedures Procedure Name Priority Date/Time Associated Diagnosis Comments [facility] COMPREHENSIVE ANATOMIC SURVEY Routine 10/04/2024 3:20 PM EDT documented in this encounter Results * US [facility] COMPREHENSIVE ANATOMIC SURVEY (10/04/2024 3:20 PM EDT) Anatomical Region Laterality Modality OB-MARBLE CLEANER Ultrasound 10/04/2024 2:51 PM EDT Narrative 10/04/2024 5:21 PM EDT NAME: BASILIO ALARCON : 1995 SEX: F Accession Number: [id number] ORDERING PHYSICIAN: DANICA POST REFERRING PHYSICIAN: LUCÍA LEDESMA Coding ----- --------- Procedures [id number]: Ultrasound, uterus, real time with image documentation, [...] EFW (oz) 8 oz EFW by: Hadlock ([id number]-ED-[id number]-FL) Extended Tibia 47.6 mm 28w 6d 7% Isac Reinforcing Metal Worker 3.0 mm CM 5.2 mm 7% Nicolaides [...] Heart / Thorax 4-chamber view. 3-vessel view. 8-arynbp-tgpjcty view. Interventricular septum. Great vessels. Diaphragm. Abdomen [...] ALARCON : 1995 SEX: F Accession Number: [id number] ORDERING PHYSICIAN: DANICA POST REFERRING PHYSICIAN: LUCÍA LEDESMA Coding ----- --------- Procedures [id number]: Ultrasound, uterus, real time with imagedocumentation, and [...] EFW (oz) 8 oz EFW by: Hadlock ([id number]) Extended Tibia 47.6 mm 28w 6d 7% Isac Reinforcing Metal Worker 3.0 mm CM 5.2 mm 7% Nicolaides [...] Heart / Thorax 4-chamber view. 3-vessel view. 9-ykzvar-tdjbtwz view.Interventricular septum. Great vessels. Diaphragm. Abdomen Kidneys. [...] byprimary OB provider unless otherwise specified by [facility]. Results forwarded to ordering provider so they can follow up with thepatient as necessary. us Danica Post MD [facility] ORDERABLES Final Resul t documented in this encounter Visit Diagnoses Not on filedocumented in this encounter
--- OUTSIDE RECORDS SUMMARY | 2024-10-08 14:20 | XMS_ITS | Encounter Summary ---
Author Organization [facility] Address [address] [place] [address] Care Team Providers Care Electrical And Instrument Mechanic Name Role Phone Unavailable Primary Care Provider Unavailabl e Reason for Visit * Reason Comments Routine Visit Encounter Details Date Type Department Care Team ([facility] Contact Info) Description 10/08/2024 2:20 PM EDT Routine [facility] [address] [facility] [facility] [place] [phone] Zack Ortiz DO [address] [facility] [address] [place] [address] Third trimester ([facility]); 31 weeks gestation of ([facility]); Hypertension affecting in third trimester ([facility]) Social History Tobacco Use Types Packs/Day Years [...] Sign Reading Time Taken Comments Blood Pressure 142/100 10/08/2024 3:05 PM EDT Pulse - - Temperature - - Respiratory Rate - - Oxygen Saturation - - Inhaled Oxygen Concentration - - Weight 130 kg (287 lb 6.4 oz) 10/08/2024 3:05 PM EDT Height - - Body Mass Index 49.33 10/28/2021 12:00 PM EDT documented in this encounter Progress Notes * Nayeli RandleMAT - 10/08/2024 2:20 PM EDT Reason for Appointment: Patient ID: Sabrina Tovar is a 29 y.o. female who presents for Routine Visit Patient presents today for Return OB appointment. MEDICATIONS Current Outpatient Medications Medication Instructions ALBUTEROL IN Alcohol Swabs (Alcohol Prep Pad) 70 % pads 1 Pad, Topical, Daily, Use four times daily to check FSBS. Blood Glucose Monitoring Suppl ([employer]-Zappli Glucometer) w/Device kit 1 kit, Does not [...] nursing note reviewed. Exam conducted with a investment executive present. Vitals: Estimated body mass index is 49.33 kg/m?? as calculated from the following: Height as of 22: 5' 4 . Weight as of this encounter: 287 lb 6.4 oz. BP: (!) 142/100 No LMP recorded. Patient is . ASSESSMENT & PLAN ICD-10-CM 1. Third trimester ([facility]) Z34.93 Urine dip 2. 31 weeks gestation of ([facility]) Z3A.31 Urine dip Patient was seen at [facility] last week. Patient left AMA and was advised thatit is recommended that she return to [place] until delivery as instructed. Patient declines and would like to continue locally at this time. Informed patient that if she experiences any symptoms then she is to return to [facility] to be monitored. Patient declines and will increase BP meds to Labetalol 300mg TID. Patient aware that she needs to continue her NST/BPPs and weekly office visits. Patient voiced that she has changed her diet and her diabetes is now under control. Documented by Nayeli Randle LPN on behalf of: Zack Ortiz DO documented in this encounter Plan of Treatment Upcoming Encounters Date Type Department Care Team (Late st Contact Info) Description 10/17/2024 1:30 PM EDT Routine [facility] [address] [place] [address] Zack Ortiz DO [address] [place] [place] [address] documented as of this encounter Procedures Procedure Name Priority Date/Time Associated Diagnosis Comments POCT URINALYSIS DIPSTICK Routine 10/08/2024 3:15 PM EDT Third trimester ([facility]) 31 weeks gestation of ([facility]) documented in this encounter Results * (ABNORMAL) Urine dip (10/08/2024 3:15 PM EDT) Color, UA Yellow Clarity, UA Clear Glucose, UA Negative Negative - 2000(110) ++++ mg/dL Bilirubin, UA Negative Negative - 4(70) +++ mg/dL Ketones, UA Negative Negative - 160(16) ++++ mg/dL Spec Grav, UA 1.030 1 - 1.03 Blood, UA Negative Negative - 50 Yossi/mcL pH, UA 6.0 5 - 9 Protein, UA Negative Negative - 2000(20) ++++ mg/dL Urobilinogen, UA 1.0 0.2 - 12 mg/dL Leukocytes, UA Negative Negative - 500+++ Wild/mcL Nitrite, UA Negative Negative - Positive Urine 10/08/2024 3:15 PM EDT Zack Ortiz DO POINT OF CARE TEST ENTER/EDIT OR DERABLES Final Result documented in this encounter Visit Diagnoses Diagnosis Third trimester ([facility]) state, incidental 31 weeks gestation of ([facility]) Hypertension affecting in third trimester ([facility]) documented in this encounter
--- OUTSIDE RECORDS SUMMARY | 2024-10-13 12:54 | XMS_ITS | Encounter Summary ---
Author Organization [facility] Address [address] [place] [address] [place] [address] Care Team Providers Care Travel Director Name Role Phone Unavailable Primary Care Provider Unavailabl e Encounter Details Date Type Department Care Team (Late Contact Info) Description 08/28/2024 Orders Only [facility] Armando MANZANO [address] [place] [id number] Berta Yoder [place] [address] [place] [address] Social History Tobacco Use Types Packs/Day Years [...] EDT Routine [facility] Luis Armando MANZANO [address] [place] [phone] Zack Ortiz DO [address] [place], [place] [id number] documented as of this encounter Procedures Procedure [...]
--- OUTSIDE RECORDS SUMMARY | 2024-10-13 12:54 | XMS_ITS | Clinical Summary ---
Author Organization [facility] Healthcare Address [address] [place] [address] Care Team Providers Care Technical Developer Name Role Phone Unavailable Primary Care Provider Unavailabl e Allergies No known active allergies Medications ALBUTEROL IN Active [facility] Allergy Relief-D12 5-120 MG 12 hr tablet Take 1 tablet by mouth every 12 (twelve) hours 4 Active SUMAtriptan (Imitrex) 25 MG tablet Take 25 mg by mouth 4 Active meclizine (Antivert) 25 MG tablet Take 25 mg by mouth 4 Active ipratropium-alb uterol (Duo-Neb) 0.5-2.5 mg/3 mL nebulizer solution INHALE 1 VIAL VIA NEBULIZER 4 TIMES A DAY 5 Active Alcohol Swabs (Alcohol Prep Pad) 70 % padsIndications :Gestational diabetes mellitus (GDM), antepartum, gestational diabetes method of control unspecified (HHS-HCC),[place] walter glucose tolerance test Apply 1 Pad topically Daily Use four times daily to check FSBS. 150 each 3 5 Active Blood Glucose Monitoring Suppl (D-Care Glucometer) w/Device kitIndications: Gestational diabetes mellitus (GDM), antepartum, gestational diabetes method of control unspecified (HHS-HCC),[place] walter glucose tolerance test 1 kit Daily Use four times daily to check FSBS. In the morning prior to breakfast & 1 hour after each meal for a total of 4times daily. 1 kit 5 026 Active labetalol (Normodyne) 300 MG tabletIndicatio ns:Hypertension affecting in third trimester ([facility]) Take 1 tablet (300 mg) by mouth in the morning and 1 tablet (300 mg) in the evening and 1 tablet (300 mg) before bedtime. 90 tablet 11 5 026 Active terconazole (Terazol 7) 0.4 % vaginal creamIndication s:Yeast infection Insert 1 applicator into the vagina at bedtime for 7 days 45 g 5 025 insulin NPH-insulin regular (NovoLIN) (70-30) 100 UNIT/ML injectionIndica tions:Gestation al Diabetes Inject 5 Units under the skin in the morning and 5 Units in the evening. Inject before meals. 3 mL 5 025 Discontinu ed(Entered in error) insulin NPH, Isophane, (HumuLIN N,NovoLIN N) 100 UNIT/ML injectionIndica tions:Gestation al Diabetes Inject 5 Units under the skin in the morning and 5 Units in the evening. Inject before meals. 3 mL 5 025 Discontinu ed(Entered in error) insulin syringe 29G X 1/2 0.5 mL miscIndications :Gestational diabetes mellitus (GDM), antepartum, gestational diabetes method of control unspecified ([facility]) Use as instructed 100 each 4 5 025 Discontinu ed(Entered in error) Encounters Date Type Department Care Team Description 10/10/2024 Clinisync Result Encounter NOMS External Department Unsolicited Lucía Ortiz DO 10/08/2024 2:20 PM EDT [place] [address] Lucía Ortiz DO Third trimester ([facility]); 31 weeks gestation of ([facility]); Hypertension affecting in third trimester ([facility]) 10/08/2024 Bamboo [place] [phone] Lucía Ortiz DO 10/04/2024 Clinisync Result Encounter NOMS External Department Unsolicited Lucía Ortiz, DO 10/03/2024 2:20 PM ED[place] [address] Lucía Ortiz, DO Third trimester ([facility]); Diet controlled gestational diabetes mellitus (GDM), antepartum ([facility]); Gestational diabetes mellitus (GDM), antepartum, gestational diabetes method of control unspecified ([facility]) 10/03/2024 2:00 PM EDT Ancillary [place] [address] Size of fetus inconsistent with dates in second trimester ([facility]) 10/03/2024 Clinisync Result Encounter NOMS External Department Unsolicited Lucía Ortiz, DO 10/03/2024 Clinisync Result Encounter NOMS External Department Unsolicited Lucía Ortiz, DO 10/03/2024 Telephone [facility] Luis Armando [facility] [place] [address] Jane Lang LPN 09/17/2024 1:30 PM ED[place] [address] Gwen Mccormick, PA Size of fetus inconsistent with dates in second trimester ([facility]) (Primary Dx); 28 weeks gestation of ([facility]) 09/17/2024 Bamboo flowsheet NOMS Luis Armando [address] [place] [address] Gwen Mccormick PA 09/11/2024 Telephone [facility] Luis Armando [address] [place] [address] Lucía Ortiz, DO 08/29/2024 1:00 PM EDT [place] [address] Encounter for follow-up ultrasound of anatomy ([facility]) 08/28/2024 [place] [phone] Berta Yoder MA 08/20/2024 2:10 PM EDT [place] [phone] Lucía Ortiz, DO Well woman exam with routine gynecological exam; Second trimester ([facility]); 24 weeks gestation of ([facility]); Exposure to STD; Need for maternal serum alpha-protein (MSAFP) screening ([facility]); Encounter for follow-up ultrasound of anatomy ([facility]) 08/20/2024 Clinisync Result Encounter NOMS External Department Unsolicited Lucía Ortiz, 08/20/2024 External Result Encounter NOMS External Department Unsolicited Lucía Ortiz, DO 08/20/2024 Bamboo [place] [address] Lucía Ortiz, 07/23/2024 2:30 PM EDT [place] [address] Gwen Mccormick PA Second trimester ([facility]); 20 weeks gestation of ([facility]); Need for maternal serum alpha-protein (MSAFP) screening ([facility]) 07/23/2024 1:30 PM EDT [place] [address] Screening, , for anatomic survey ([facility]) from Last 3 Months Social History Tobacco Use Types Packs/Day Years Used Date Smoking Tobacco: Never Assessed Estimated Date of Delivery Comme nts Yes 12/06/2024 Based on Ultraso und Sex and Gender Information Value Date Recorded Sex Assigned at Female 05/17/2024 11:15 AM EDT Legal Sex Female 7:14 PM EDT Gender Identity Female 05/17/2024 11:15 AM EDT Sexual Orientation Bisexual 05/17/2024 11 :15 AM EDT Last Filed Vital Signs Vital Sign Reading Time Taken Comments Blood Pressure 142/100 10/08/2024 3:05 PM EDT Pulse - - Temperature - - Respiratory Rate - - Oxygen Saturation - - Inhaled Oxygen Concentration - - Weight 130 kg (287 lb 6.4 oz) 10/08/2024 3:05 PM EDT Height 162.6 cm (5' 4 ) 10/28/2021 12:00 PM EDT Body Mass Index 49.33 10/28/2021 12:00 PM EDT Plan of Treatment Upcoming Encounters Date Type Department Care Team (Late st Contact Info) Description 10/17/2024 1:30 PM EDT Routine NOMS Luis Armando OBGYN [address] [place] [phone] AngelLucía johnson, [address] [place] [address] Health Maintenance Due Date Last Done Comments Influenza Vaccine (#1) 2024 11/26/2011, 2003, 03/01/2003 Cervical Cancer Screening 08/20/2029 HPV/Cotest 08/20/2029 Pap Smear 08/20/2029 08/20/2024 Procedures Procedure Name Priority Date/Time Associated Diagnosis Comments US OB BPP W NON-STRESS 10/10/2024 2:29 PM EDT POCT URINALYSIS DIPSTICK Routine 10/08/2024 3:15 PM EDT Third trimester ([facility]) 31 weeks gestation of ([facility]) MHPT FIBRINOGEN Routine 10/04/2024 8:46 AM EDT [facility] APTT Routine 10/04/2024 8:46 AM EDT SRMCOH PROTHROMBIN TIME INR W/O COUM Routine 10/04/2024 8:46 AM EDT ALL CBC WITH AUTO DIFF Routine 8:46 AM EDT ALL LDH Routine 10/04/2024 8:46 AM EDT [facility] ALT Routine 10/04/2024 8:46 AM EDT [facility] AST Routine 10/04/2024 8:46 AM EDT ALL URIC ACID Routine 10/04/2024 8:46 AM EDT TBH CREATININE Routine 10/04/2024 8:46 AM EDT ALL BUN Routine 10/04/2024 8:46 AM EDT US OB BPP W NON-STRESS 10/03/2024 5:46 PM EDT TBH URINE T PROTEIN CREAT RATIO Routine 10/03/2024 5:10 PM EDT MHPT FIBRINOGEN Routine 10/03/2024 3:51 PM EDT [facility] APTT Routine 10/03/2024 3:51 PM EDT SRMCOH PROTHROMBIN TIME INR W/O COUM Routine 10/03/2024 3:51 PM EDT ALL CBC WITH AUTO DIFF Routine 3:51 PM EDT CCF ALT Routine 10/03/2024 3:51 PM EDT CCF AST Routine 10/03/2024 3:51 PM EDT ALL URIC ACID Routine 10/03/2024 3:51 PM EDT TBH CREATININE Routine 10/03/2024 3:51 PM EDT ALL BUN Routine 10/03/2024 3:51 PM EDT POCT URINALYSIS DIPSTICK Routine 10/03/2024 2:28 PM EDT Third trimester ([facility]) US OB FOLLOW UP TRANSABDOMINAL APPROACH Routine 10/03/2024 2:16 PM EDT Size of fetus inconsistent with dates in second trimester ([facility]) US OB LIMITED 1+ FETUSES Routine 08/29/2024 1:23 PM EDT Encounter for follow-up ultrasound of anatomy ([facility]) RECURRENT VAGINITIS (HTRX) Routine 08/20/2024 3:53 PM EDT POCT URINALYSIS DIPSTICK Routine 08/20/2024 2:57 PM EDT Second trimester ([facility]) IGP,APTIMA HPV,AGE GDLN Routine 08/20/2024 2:32 PM EDT PAP SMEAR Routine 08/20/2024 12:00 AM EDT POCT URINALYSIS DIPSTICK Routine 07/24/2024 9:46 AM EDT Second trimester ([facility]) US OB 14+ WEEKS ANATOMY SCAN Routine 07/23/2024 2:27 PM EDT Screening, , for anatomic survey ([facility]) from Last 3 Months Results * US OB BPP W NON-STRESS (10/10/2024 2:29 PM EDT) Only the most recent of2 resultswithin the time period is included. Anatomical Region Laterality Modality Other 10/10/2024 2:29 PM EDT Narrative 10/10/2024 2:32 PM EDT The [address] [address] Ultrasound Report Signed Patient: DORIAN TOVAR MR#: [id number] : 1995 Acct:[id number] Age/Sex: 29 / F ADM Date: 10/10/24 Loc: [facility] 250-[address]: Lucía Ortiz D.O. Ordering Physician: Lucía Ortiz D.O. Date of Service: 10/10/24 Procedure(s): US OB BPP w non-stress Accession Number(s): [id number] cc: Lucía Ortiz D.O.; Physician,Non-Staff [place] The [place] [id number] Patient Name: DORIAN TOVAR MRN: [id number] date: 1995 Sex: F Assigned Patient Location: [facility] Current Patient Location: [facility] Accession/Order Number: [id number] Exam Date: 10/10/2024 14:02 Report Date: 10/10/2024 14:29 At the request of: LUCÍA ORTIZ DO Procedure: US OB BPP w non-stress Biophysical profile. Reason for exam: Gestational diabetes COMPARISON: 10/03/2024 TECHNIQUE: Transabdominal imaging of the gravid uterus was obtained. FINDINGS: The portrait artist reports a BPP of 8 out of 8. SCOOTER is normal at 11.7 cm. heart rate 134 bpm. US/US OB BPP w non-stress IMPRESSION: BPP 8 out of 8. Impression dictated by: Kahlil Voss Jr., D.O. 10/10/2024 2:29 PM Dictation Location: [place] [address] Electronically authenticated by: [id number] Y Date: 10/10/2024 14:29 Dictated By: Kahlil Voss M.D. Signed By: 10/10/24 1432 DD/ 1429 TD/TT: Radius Corner Machine Operator: Procedure Note Radiology, Radiologist, MD - 10/10/2024 [place] [address] Ultrasound Report Signed Patient: DORIAN TOVAR JMR#: [id number] : 1995Acct:[id number] Age/Sex: 29 / FADM Date: 10/10/24 Loc: [facility] 250-[address]: Lucía Ortiz D.O. Ordering Physician: Lucía Ortiz D.O. Date of Service: 10/10/24 Procedure(s): US OB BPP w non-stress Accession Number(s): [id number] cc: Lucía Ortiz D.O.; Physician,Non-Staff MJanak [place] [id number] Patient Name: DORIAN TOVAR MRN: [id number] date: 1995 Sex: F Assigned Patient Location: [facility] Current Patient Location: [facility] Accession/Order Number: [id number] Exam Date: 10/10/2024 14:02 Report Date: 10/10/2024 14:29 At the request of: LUCÍA ORTIZ DO Procedure: US OB BPP w non-stress Biophysical profile. Reason for exam: Gestational diabetes COMPARISON: 10/03/2024 TECHNIQUE: Transabdominal imaging of the gravid uterus was obtained. FINDINGS: The portrait artist reports a BPP of 8 out of 8. SCOOTER is normal at11.7 cm. heart rate 134 bpm. US/US OB BPP w non-stress IMPRESSION: BPP 8 out of 8. Impression dictated by: Kahlil Voss Jr., D.O. 10/10/2024 2:29 PM Dictation Location: [place] [address] Electronically authenticated by: [id number] Y Date: 4:29 Dictated By: Kahlil Voss M.D. Signed By:10/10/24 1432 DD/ 1429 TD/TT: Radius Corner Machine Operator: Lucía Ortiz DO [facility]AG[facility] Final Result * (ABNORMAL) Urine dip (10/08/2024 3:15 PM EDT) Only the most recent of4 resultswithin the time period is included. Color, UA Yellow Clarity, UA Clear Glucose, [...] - Positive Urine 10/08/2024 3:15 PM EDT Lucía Angel DO POINT OF CARE TEST ENTER/EDIT OR DERABLES Final Result * TBH CREATININE (10/04/2024 8:46 AM EDT) Only the most recent of2 resultswithin the time period is included. CREATININE 0.75 0.55 - 1.02 mg/dL TBH TBH EGFR-AF PUERTO RICAN >60 >=60 mL/min/1.7 3m 2 TBH TBH EGFR-NON AF PU[place] RICAN >60 >=60 mL/min/1.7 3m 2 TBH 10/04/2024 8:46 AM EDT 10/04/2024 8:50 AM EDT Narrative CLINISYNC - 10/04/2024 9:33 AM EDT Lucía Angel DO CLINISYNC Final Result [facility] * SRMCO PROTHROMBIN TIME INR W/O COUM (10/04/2024 8:46 AM EDT) Only the most recent of2 resultswithin the time period is included. PROTHROMBIN TIME 10.3 9.0 - 11.6 sec TBH TBH INR 0.97 TBH Comment: DESIRED INR: 2.0-3.0 CONDITIONS NOT LISTED BELOW 2.5-3.5 FOR PROSTHETIC HEART VALVE REPLACEMENT 2.5-3.5 RECURRENT THROMBOSIS 10/04/2024 8:46 AM EDT 10/04/2024 8:50 AM EDT Narrative CLINISYNC - 10/04/2024 9:53 AM EDT Lucía Angel DO CLINISYNC Final Result Performing Organization Address [facility] Co de Phone Number [facility] * (ABNORMAL) MHPT FIBRINOGEN (10/04/2024 8:46 AM EDT) Only the most recent of2 resultswithin the time period is included. FIBRINOGEN 575(H) 200 - 400 mg/dL TBH 10/04/2024 8:46 AM EDT 10/04/2024 8:50 AM EDT Narrative CLINISYNC - 10/04/2024 9:53 AM EDT [facility] Final Result Performing Organization Address [facility] de Phone Number [facility] * (ABNORMAL) CCF AST (10/04/2024 8:46 AM EDT) Only the most recent of2 resultswithin the time period is included. ASPARTATE AMINO TRANSFERASE 14(L) 15 - 37 U/L TBH 10/04/2024 8:46 AM EDT 10/04/2024 8:50 AM EDT Narrative CLINISYNC - 10/04/2024 9:33 AM EDT [facility] Angel DO CLINISYNC Final Result Performing Organization Address [facility] de Phone Number [facility] * [facility] APTT (10/04/2024 8:46 AM EDT) Only the most recent of2 resultswithin the time period is included. PARTIAL THROMBOPLASTIN TIME 26.8 22.3 - 36.2 sec TBH 10/04/2024 8:46 AM EDT 10/04/2024 8:50 AM EDT Narrative CLINISYNC - 10/04/2024 9:53 AM EDT us Lucía Angel DO CLINISYNC Final Result Performing Organization Address City/[facility]/ZIP Co de Phone Number CLINISYNC TB * CCF ALT (10/04/2024 8:46 AM EDT) Only the most recent of2 resultswithin the time period is included. ALANINE AMINOTRANSFERASE 14 14 - 59 U/L TBH 10/04/2024 8:46 AM EDT 10/04/2024 8:50 AM EDT Narrative CLINISYNC - 10/04/2024 9:33 AM EDT us Lucía Angel DO CLINISYNC Final Result Performing Organization Address [facility] Co de Phone Number CLINISYNC TB * ALL URIC ACID (10/04/2024 8:46 AM EDT) Only the most recent of2 resultswithin the time period is included. URIC ACID 5.4 2.6 - 6.0 mg/dL TBH 10/04/2024 8:46 AM EDT 10/04/2024 8:50 AM EDT Narrative CLINISYNC - 10/04/2024 9:33 AM EDT us Lucía Angel DO CLINISYNC Final Result Performing Organization Address [facility] Co de Phone Number CLINISYNC TB * ALL LDH (10/04/2024 8:46 AM EDT) LACTATE DEHYDROGENASE 153 81 - 234 U/L TBH 10/04/2024 8:46 AM EDT 10/04/2024 8:50 AM EDT Narrative CLINISYNC - 10/04/2024 9:35 AM EDT us Lucía Angel DO CLINISYNC Final Result Performing Organization Address City/[facility]/ZIP Co de Phone Number CLINISYNC TB * (ABNORMAL) ALL CBC WITH AUTO DIFF (10/04/2024 8:46 AM EDT) Only the most recent of2 resultswithin the time period is included. TBH WBC 12.5(H) 4.0 - 11.0 10 3/uL TBH TBH RBC 4.38 4.20 - 5.40 10 6/uL TBH TBH HGB 12.3 12.0 - 16.0 g/dL TBH TBH HCT 35.8(L) 36.0 - 48.0 % TBH TBH MCV 81.7 81.0 - 99.0 fL TBH TBH MCH 28.1 26.7 - 34.0 pg TBH TBH MCHC 34.4 29.9 - 35.2 g/dL TBH TBH RDW [...] CLINISYNC - 10/04/2024 9:51 AM EDT us Lucía Angel DO CLINISYNC Final Result Performing Organization Address [facility] Co de Phone Number CLINJOSE ALEJANDRO TB * (ABNORMAL) ALL BUN (10/04/2024 8:46 AM EDT) Only the most recent of2 resultswithin the time period is included. BLOOD UREA NITROGEN 6.0(L) 7.0 - 18.0 mg/dL TBH 10/04/2024 8:46 AM EDT 10/04/2024 8:50 AM EDT Narrative CLINISYNC - 10/04/2024 9:33 AM EDT us Lucíaphong Johnso DO CLINISYNC Final Result Performing Organization Address [facility] de Phone Number [facility] TB * (ABNORMAL) TBH URINE T PROTEIN CREAT RATIO (10/03/2024 5:10 PM EDT) TOTAL PROTEIN URINE RANDOM 28.5(H) <=11.9 mg/dL TBH CREATININE URINE RANDOM 60.71 20.00 - 300.00 mg/dL TBH PROTEIN CREATININE RATIO URINE 0.47 TBH 10/03/2024 5:10 PM EDT 10/03/2024 5:33 PM EDT Narrative CLINISYNC - 10/03/2024 5:50 PM EDT us Lucíaphong Johnso DO JELANIISYNC Final Result Performing Organization Address [facility] de Phone Number CLINSTEPHONNC TB * US OB follow up transabdominal approach [...] 12/13/2024. Interpreted by: Electronically signed by UNA DARNELL II, MD, PHD at 04-Oct-2024 08:06:58 AM [facility] Procedure Note Una Darnell MD - 10/04/2024 EXAM: US OB FOLLOW [...] 12/13/2024. Interpreted by: Electronically signed by UNA DARNELL II, MD, PHD [id number] 08:06:58 AM [facility] us Gwen SAAVEDRA IMG OB US PROCEDURES Final Resul t * US OB limited 1+ fetuses (08/29/2024 1:23 PM EDT) Anatomical Region Laterality Modality Body Ultrasound 08/29/2024 7:50 PM EDT Impressions 08/30/2024 9:10 AM EDT No significant abnormality. TRANSCRIBED BY: ELECTRONICALLY SIGNED BY: Kahlil Solis MD Narrative 08/30/2024 9:10 AM EDT FINDINGS: Single viable intrauterine . Cerebellar and posterior fossa contents appear appropriate for age. Right ventricular and left ventricular outflow tracts are grossly adequately visualized for this age. Procedure Note Kahlil Solis MD - 08/30/2024 FINDINGS: Single viable intrauterine . Cerebellar and posterior fossacontents appear appropriate for age. Right ventricular and leftventricular outflow tracts are grossly adequately visualized for thisage. IMPRESSION: No significant abnormality. TRANSCRIBED BY: ELECTRONICALLY SIGNED BY: Kahlil Solis MD us Lucía Ortiz DO IMG OB US PROCEDURES Final Resul t * RECURRENT VAGINITIS (HTRX) (08/20/2024 3:53 PM EDT) ATOPOBIUM VAGINAE 0 19.961 - 24.689 ppm 08/21/2024 6:26 AM EDT [facility] ATOPOBIUM VAGINAE Not Detected 19.961 - 24.689 ppm 08/21/2024 6:26 AM EDT [facility] BVAB 2,3 (BACTERIAL VAGINOSIS ASSOCIATED BACTERIA 2, 3); MOBILUNCUS SPP 0 19.961 - 24.689 ppm 08/21/2024 6:26 AM EDT [facility] BVAB 2,3 (BACTERIAL VAGINOSIS ASSOCIATED BACTERIA 2, 3); MOBILUNCUS SPP Not Detected 19.961 - 24.689 ppm 08/21/2024 6:26 AM EDT [facility] FORREST ALBICANS, PARAPSILOSIS, TROPICALIS 0 19.961 - 30.770 ppm 08/21/2024 6:26 AM EDT [facility] FORREST ALBICANS, PARAPSILOSIS, TROPICALIS Not Detected 19.961 - 30.770 ppm 08/21/2024 6:26 AM EDT [facility] FORREST GLABRATA 0 23.000 - 32.138 ppm 08/21/2024 6:26 AM EDT [facility] FORREST GLABRATA Not Detected 23.000 - 32.138 ppm 08/21/2024 6:26 AM EDT [facility] FORREST KRUSEI 0 23.000 - 32.271 ppm 08/21/2024 6:26 AM EDT [facility] [place] FORREST KRUSEI Not Detected 23.000 - 32.271 ppm 08/21/2024 6:26 AM EDT [facility] CHLAMYDIA TRACHOMATIS 0 23.000 - 31.467 ppm 08/21/2024 6:26 AM EDT [facility] CHLAMYDIA TRACHOMATIS Not Detected 23.000 - 31.467 ppm 08/21/2024 6:26 AM EDT [facility] GARDNERELLA VAGINALIS 0 19.961 - 24.689 ppm 08/21/2024 6:26 AM EDT [facility] GARDNERELLA VAGINALIS Not Detected 19.961 - 24.689 ppm 08/21/2024 6:26 AM EDT [facility] MEGASPHAERA (TYPES 1, 2) 0 19.961 - 24.689 ppm 08/21/2024 6:26 AM EDT [facility] MEGASPHAERA (TYPES 1, 2) Not Detected 19.961 - 24.689 ppm 08/21/2024 6:26 AM EDT [facility] NEISSERIA GONORRHOEAE 0 23.000 - 32.117 ppm 08/21/2024 6:26 AM EDT [facility] NEISSERIA GONORRHOEAE Not Detected 23.000 - 32.117 ppm 08/21/2024 6:26 AM EDT [facility] TRICHOMONAS VAGINALIS 0 23.000 - 32.119 ppm 08/21/2024 6:26 AM EDT [facility] TRICHOMONAS VAGINALIS Not Detected 23.000 - 32.119 ppm 08/21/2024 6:26 AM EDT [facility] MYCOPLASMA GENITALIUM 0 19.961 - 24.689 ppm 08/21/2024 6:26 AM EDT [facility] MYCOPLASMA GENITALIUM Not Detected 19.961 - 24.689 ppm 08/21/2024 6:26 AM EDT [facility] Tissue 08/20/2024 3:53 PM EDT 08/21/2024 1:25 AM EDT us Lucía Ortiz DO LAB BLOOD ORDERABLES Final Resul t [facility] [address] [place] [address] * IGP,APTIMA HPV,AGE GDLN (08/20/2024 2:32 PM EDT) AGE GDLN ACOG TESTING Note . [facility] Comment: TESTS RESULT FLAG UNITS REF RANGE LAB Clinician Provided Cytology Information Source.............Cervix No. of containers..01 ThinPrep Vial Age Algo ACOG Haydee... FLAG LEGEND: L-Low Normal,H-High Normal,LL-Alert Low,HH-Alert High <-Panic Low,>-Panic High,A-Abnormal,AA-Critical Abnormal Performed at: 01 =[facility] [place] [address] Glory Schaffer MD, IGP, APTIMA HPV, RFX 16/18,45 Note . [facility] Comment: TESTS RESULT FLAG UNITS REF RANGE LAB DIAGNOSIS: 02 NEGATIVE FOR INTRAEPITHELIAL LESION OR MALIGNANCY. Specimen adequacy: 02 Satisfactory for evaluation. No endocervical component is identified. Performed by: 02 Tai Darling, Horticultural Specialty Grower (ASCP) . 02 Note: Note 02 The [...] <-Panic Low,>-Panic High,A-Abnormal,AA-Critical Abnormal Performed at: [address] [address] Glory Schaffer MD, HPV APTIMA Negative Negative [facility] Comment: This nucleic acid amplification test detects fourteen high- risk HPV types (16,18,31,33,35,39,45,51,52,56,58,59,66,68) without differentiation. Performed at: =[address] [id number] Steel Die Engraver: Glory Schaffer MD, Phone: [phone] Performed at: [address] [id number] Steel Die Engraver: Glory Schaffer MD, Phone: [phone] 08/20/2024 2:32 PM EDT 08/20/2024 9:44 PM EDT Narrative CLINISYNC - 08/23/2024 3:08 PM EDT BRUSH-SPATULA CERVIX Lucía Angel DO LAB BLOOD ORDERABLES Final Resul t Performing Organization Address [facility] Co de Phone Number [facility] * Pap Smear (08/20/2024 12:00 AM EDT) Swab Cervical swab / Unknown Lucía Angel DO LAB CYTOLOGY ORDERABLES Final Re sult Performing Organization Address [facility] [facility] Co de Phone Number EXTERNAL LAB * US OB 14+ weeks anatomy scan (07/23/2024 2:27 PM EDT) Anatomical Region Laterality Modality Body Ultrasound 07/25/2024 8:24 AM EDT Narrative 07/25/2024 8:24 AM EDT EXAM: US OB 14+ WEEKS ANATOMY SCAN [...] recommended. Interpreted by: Electronically signed by UNA DARNELL II, MD, PHD at 25-Jul-2024 08:22:22 AM [facility] Procedure Note Una Darnell MD - 07/25/2024 EXAM: US OB 14+ WEEKS ANATOMY SCAN HISTORY: anatomy. COMPARISON: Ob ultrasound 05/18/2024 TECHNIQUE: Two-dimensional transabdominal grayscale ultrasound imaging ofthe pelvis was performed. Limited exam due to patient body habitus. FINDINGS: Gestation: Single Presentation: Cephalic Cardiac Activity: 141 beats per minute Placental Location: Posterior with no sonographic abnormalitiesidentified. Distance from Placental Tip to Cervix: 9 [...] is 20 weeks 1 days (+/- 10 daysgestation). Estimated Weight: 357 grams, +/- 54 grams [...] gestation 20 weeks, 4 days by LMP. Today'sultrasound measurements correlate with a gestational age of 20 weeks 1days. Estimated weight is 357 grams, +/- 54 grams ( 0 lb 13 oz)which correlates to 40 %. JANNY is 12/09/2024. 2. Limited anatomy, as described above. A short-term follow-upultrasound is recommended. Interpreted by: Electronically signed by UNA DARNELL II, MD, PHD 08:22:22 AM [facility] us Rubina Conroy FREIGHT ELEVATOR ERECTOR IMG OB US PROCEDURES Final Re sult from Last [address] [place] [address] [address] [address] MEDICAID [place]
--- OUTSIDE RECORDS SUMMARY | 2024-10-13 12:54 | XMS_ITS | Encounter Summary ---
Author Organization [facility] Address [address] [place] [address] Care Team Providers Care Manager Environmental Name Role Phone Unavailable Primary Care Provider Unavailabl e Encounter Details Date Type Department Care Team (Late st Contact Info) Description 10/10/2024 Clinisync Result Encounter [facility] External Department Unsolicited Lucía Ortiz DO [address], [facility] Social History Tobacco Use Types Packs/Day [...] [facility] Armando OBGYN [address] [place] [phone] Lucía Ortiz DO [address], [place] [address] documented as of this encounter Procedures Procedure Name Priority Date/Time Associated Diagnosis Comments US OB BPP W NON-STRESS 10/10/2024 2:29 PM EDT documented in this encounter Results * US OB BPP W NON-STRESS (10/10/2024 2:29 PM EDT) Anatomical Region Laterality Modality Other 10/10/2024 2:29 PM EDT Narrative 10/10/2024 2:32 [place] [address] Ultrasound Report Signed Patient: DORIAN RICHMOND MR#: [id number] : 1995 Acct:[id number] Age/Sex: 29 / F ADM Date: 10/10/24 Loc: [facility] 250-[address]: Lucía Ortiz D.O. Ordering Physician: Lucía Ortiz D.O. Date of Service: 10/10/24 Procedure(s): US OB BPP w non-stress Accession Number(s): [id number] cc: Lucía Ortiz D.O.; Physician,Non-Staff [place] [address] Patient Name: DORIAN RICHMOND MRN: [id number] date: 1995 Sex: F Assigned Patient Location: [facility] Current Patient Location: [facility] Accession/Order Number: [id number] Exam Date: 10/10/2024 14:02 Report Date: 10/10/2024 14:29 At the request of: LUCÍA ORTIZ DO Procedure: US OB BPP w non-stress Biophysical profile. Reason for exam: Gestational diabetes COMPARISON: 10/03/2024 TECHNIQUE: Transabdominal imaging of the gravid uterus was obtained. FINDINGS: The fish and wildlife warden reports a BPP of 8 out of 8. SCOOTER is normal at 11.7 cm. heart rate 134 bpm. US/US OB BPP w non-stress IMPRESSION: BPP 8 out of 8. Impression dictated by: Kahlil Voss Jr., D.O. 10/10/2024 2:29 PM Dictation Location: RADIO-PC-23 Electronically authenticated by: [id number] Y Date: 10/10/2024 14:29 Dictated By: Kahlil Voss M.D. Signed By: 10/10/24 1432 DD/ 1429 TD/TT: Drier Tender: Procedure Note Radiology, Radiologist, - 10/10/2024 [place] [address] Ultrasound Report Signed Patient: DORIAN RICHMOND JMR#: [id number] : 1995Acct:[id number] Age/Sex: 29 / FADM Date: 10/10/24 Loc: [facility] [address]: Lucía Ortiz D.O. Ordering Physician: Lucía Ortiz D.O. Date of Service: 10/10/24 Procedure(s): US OB BPP w non-stress Accession Number(s): [id number] cc: Lucía Ortiz D.O.; Physician,Non-Staff [place] [address] Patient Name: DORIAN RICHMOND MRN: [id number] date: 1995 Sex: F Assigned Patient Location: [facility] Current Patient Location: [facility] Accession/Order Number: [id number] Exam Date: 10/10/2024 14:02 Report Date: 10/10/2024 14:29 At the request of: LUCÍA ORTIZ DO Procedure: US OB BPP w non-stress Biophysical profile. Reason for exam: Gestational diabetes COMPARISON: 10/03/2024 TECHNIQUE: Transabdominal imaging of the gravid uterus was obtained. FINDINGS: The fish and wildlife warden reports a BPP of 8 out of 8. SCOOTER is normal at11.7 cm. heart rate 134 bpm. US/US OB BPP w non-stress IMPRESSION: BPP 8 out of 8. Impression dictated by: Kahlil Voss Jr., D.O. 10/10/2024 2:29 PM Dictation Location: [place] [address] Electronically authenticated by: [id number] Y Date: 4:29 Dictated By: Kahlil Voss M.D. Signed By:10/10/24 1432 DD/ 1429 TD/TT: Drier Tender: us Lucía Ortiz DO [facility] Final Result documented in this encounter Visit Diagnoses Not on filedocumented in this encounter
--- OUTSIDE RECORDS SUMMARY | 2024-10-13 12:54 | XMS_ITS | Clinical Summary ---
Author Organization [facility] Address [id number] [address] [place] [address] Care Team Providers Care Apprentice Architect Name Role Phone Unavailable Primary Care [...] Encounters Date Type Department Care Team Description 10/11/2024 Abstract Maternal- Medicine at [facility] [address] [place] [phone] External, Scanning Provider 10/04/2024 2:31 PM EDT - 10/04/2024 11:59 PM EDT Hospital Encounter [facility] - [facility] US Imaging [address] [place] [address] Discharge Disposition: Home 10/04/2024 12:23 PM EDT - 10/05/2024 3:01 PM EDT Hospital Encounter [facility] - GEN 3 Antepartum [address] [place] [address] Binh Yung MD Discharge Disposition: Left Against [...] PM EDT Support Visit Maternal- Medicine at [facility] [address] [place] [address] Krista Cruz RN [address] [facility], [address] [place] [address] Laura Weaver LD Health Maintenance Due Date Last Done Comments Depression Screening 2006 Tobacco Screening 2006 Adult BMI Follow Up Plan 2012 COVID-19 Vaccine (2 - 4-2 5 season) 2023 10/09/2020 Influenza Vaccine 10/15/2024 [...] RATIO Routine 10/04/2024 3 :40 PM EDT US MFM COMPREHENSIVE ANATOMIC SURVEY [...] PM EDT TYPE AND SCREEN Routine 10/04/2024 LIVER PANEL Routine 10/03/2024 BASIC METABOLIC PANEL Routine 10/03/2024 CBC AND DIFFERENTIAL Routine 10/03/2024 CHLAMYDIA/GC BY PCR YOUNG SWAB Routine 08/20/2024 from Last 3 Months Results * (ABNORMAL) Bedside Glucose *Place/Obtain serum glucose if >500 per glucometer. (10/05/2024 11:55AM EDT) Only the most recent of6 resultswithin the time period is included. [facility] Bedside Glucose (POC) 168(H) 65 - 99 mg/dL 10/05/2024 12:00 PM EDT [facility] arterial/capilla ry 10/05/2024 11:55 AM EDT 10/05/2024 12:00 PM EDT us Binh Yung MD POINT OF CARE TEST ORDERABLES Final Result [facility] [address] [place] [address], [place] * LDH (10/05/2024 6:24 AM EDT) Only the most recent of3 resultswithin the time period is included. [facility] LDH 138 100 - 235 U/L 10/05/2024 7:33 AM EDT [facility] Blood Venous blood / Unknown Venipuncture / Unknown 10/05/2024 6:24 AM EDT 10/05/2024 7:02 AM EDT us Kay Levi MD LAB BLOOD ORDERABLES Final Res ult [facility] [address] [place] [address], [place] [phone] * (ABNORMAL) CBC without diff (10/05/2024 6:24 AM EDT) Only the most recent of3 resultswithin the time period is included. [facility] WBC 14.8(H) 4 - 11 x10E9/L 10/05/2024 7:13 AM EDT [facility] RBC Count 4.69 3.8 - 5.2 X10E12/L 10/05/2024 7:13 AM EDT [facility] Hemoglobin 12.8 11.7 - 15.5 g/dL 10/05/2024 7:13 AM EDT [facility] Hematocrit 37.5 35 - 47 % 10/05/2024 7:13 AM EDT [facility] MCV 80 80 - 100 fL 10/05/2024 7:13 AM EDT [facility] MCH 27.2 27 - 34 pg 10/05/2024 7:13 AM EDT [facility] MCHC 34.0 32 - 36 g/dL 10/05/2024 7:13 AM EDT [facility] RDW 15.0 11.5 - 15 % 10/05/2024 7:13 AM EDT [facility] Platelet Count 276 150 - 450 X10E9/L 10/05/2024 7:13 AM EDT [facility] MPV 8.0 7 - 12 fL 10/05/2024 7:13 AM EDT [facility] Blood Venous blood / Unknown Venipuncture / Unknown 10/05/2024 6:24 AM EDT 10/05/2024 7:02 AM EDT us Kay Levi MD LAB BLOOD ORDERABLES Final Res ult [facility] [address] [place] [address], * Uric acid (10/05/2024 6:24 AM EDT) Only the most recent of3 resultswithin the time period is included. URIC ACID 6.4 2.6 - 7.2 mg/dL 10/05/2024 7:33 AM EDT [facility] Blood Venous blood / Unknown Venipuncture / Unknown 10/05/2024 6:24 AM EDT 10/05/2024 7:02 AM EDT us Kay Levi MD LAB BLOOD ORDERABLES Final Res ult [facility] [address] [place] [address], [place] [phone] * (ABNORMAL) Comprehensive metabolic panel (10/05/2024 6:24 AM EDT) Only the most recent of2 resultswithin the time period is included. SODIUM 135 134 - 146 mmol/L 10/05/2024 7:33 AM EDT [facility] POTASSIUM 4.0 3.5 - 5.0 mmol/L 10/05/2024 7:33 AM EDT [facility] CHLORIDE 105 98 - 109 mmol/L 10/05/2024 7:33 AM T [facility] CARBON DIOXIDE 20(L) 22 - 32 mmol/L 10/05/2024 7:33 AM T [facility] ANION GAP 10 5 - 15 mmol/L 10/05/2024 7:33 AM T [facility] BLOOD UREA NITROGEN 8 5 - 23 mg/dL 10/05/2024 7:33 AM T [facility] CREATININE 0.64 0.40 - 1.00 mg/dL 10/05/2024 7:33 AM T [facility] Comment:METHOD TRACEABLE TO IDMS STANDARD GLUCOSE 111(H) 65 - 99 mg/dL 10/05/2024 7:33 AM [facility] CALCIUM 7.8(L) 8.5 - 10.5 mg/dL 10/05/2024 7:33 AM T [facility] TOTAL PROTEIN 6.7 6.0 - 8.0 g/dL 10/05/2024 7:33 AM T [facility] ALBUMIN 3.4 3.2 - 5.3 g/dL 10/05/2024 7:33 AM T [facility] ALKALINE PHOSPHATASE 114 39 - 130 U/L 10/05/2024 7:33 AM T [facility] AST 8 <=41 U/L 10/05/2024 7:33 AM T [facility] ALT 5 <=31 U/L 10/05/2024 7:33 AM [facility] BILIRUBIN,TOTAL 0.3 0.3 - 1.2 mg/dL 10/05/2024 7:33 AM [facility] EGFR Non-Race Dependent >90 >=60 ml/min/1.7 3sq.m 10/05/2024 7:33 AM EDT [facility] Comment: Reported eGFR is based on the CKD-EPI 2020 equation that does not use a race coefficient. EGFR not calculated due to patient's gender not being defined. Blood Venous blood / Unknown Venipuncture / Unknown 10/05/2024 6:24 AM EDT 10/05/2024 7:02 AM EDT Kay Levi MD LAB BLOOD ORDERABLES Final Res ult [facility] [address] [place] [address], * Strep B screen (10/04/2024 8:55 PM EDT) CULTURE RESULTS POSITIVE FOR GROUP B STREPTOCOCCUS BY NUCLEIC ACID AMPLIFICATION 10/06/2024 12:59 AM EDT [facility] Swab (Vagina/Rectum) 10/04/2024 8:55 PM EDT 10/04/2024 9:15 PM EDT Narrative [facility] - 10/06/2024 12:59 AM EDT Group B streptococci remain universally susceptible to penicillin, ampicillin, and cefazolin. Resistance to clindamycin can occur. Please contact laboratory within 48 hours if clindamycin susceptibility testing is needed. us Evon Clement DO MICROBIOLOGY - GENERAL ORDER SONIA Final Result [facility] [address] [place] [address], * ABO Rh Repeat (10/04/2024 4:48 PM EDT) Only the most recent of2 resultswithin the time period is included. ABO A 10/04/2024 7:34 PM EDT [facility] RH Positive 10/04/2024 7:34 PM EDT [facility] Blood Venous blood / Unknown Venipuncture / Unknown 10/04/2024 4:48 PM EDT 10/04/2024 6:38 PM EDT us Binh Yung MD BLOOD BANK TEST ORDERABLES Fin al Result Performing Organization Address [facility]/ZIP Co de Phone Number [facility] - [place] [address] [place] [address], [facility] [address] [place] [address], * (ABNORMAL) Urine protein creatinine ratio (10/04/2024 3:40 PM EDT) URINE PROTEIN, RANDOM (MG/L) 140(H) <120 mg/L 10/04/2024 5:09 PM EDT [facility] URINE CREATININE,RDM 28.24 mg/dL 10/04/2024 5:09 PM EDT [facility] U/PRO/BANK MANAGER RATIO CALC 0.50(H) <=0.20 10/04/2024 5:09 PM EDT [facility] Urine Urine specimen collection, clean catch / Unknown 10/04/2024 3:40 PM EDT 10/04/2024 4:23 PM EDT Narrative [facility] - 10/04/2024 5:09 PM EDT Nephrotic Syndrome is associated with ratios >3.5 us Yvon Post MD URINE ORDERABLES Final Result Performing Organization Address City/[facility]/ZIP Co de Phone Number [facility] [address] [place] [address], * Buprenorphine, urnie (10/04/2024 3:40 PM EDT) BUPRENORPHINE, URINE QUALITATIVE Negative Negative 10/04/2024 5:09 PM EDT [facility] Urine Urine specimen collection, clean catch / Unknown 10/04/2024 3:40 PM EDT 10/04/2024 4:23 PM EDT [facility] - 10/04/2024 5:09 PM EDT Urine Buprenorphine cut of value = 10 ng/mL This report is intended for use in clinical monitoring or management of patients. us Yvon Post MD URINE ORDERABLES Final Result Performing Organization Address [facility]/ZIP Co de Phone Number [facility] [address] [place] [address], [place] [phone] * Fentanyl, Urine Qualitative (10/04/2024 3:40 PM EDT) FENTANYL, URINE QUAL. Negative Negative 10/04/2024 5:09 PM EDT [facility] Urine Urine specimen collection, clean catch / Unknown 10/04/2024 3:40 PM EDT 10/04/2024 4:23 PM EDT [facility] - 10/04/2024 5:09 PM EDT Fentanyl screening cutoff = 5ng/ml This report is intended for use in clinical monitoring or management of patients. us Yvon Post MD URINE ORDERABLES Final Result Performing Organization Address [facility] Co de Phone Number [facility] [address] [place] [address], [place] [phone] * Drug Screen, Urine (10/04/2024 3:40 PM EDT) AMPHETAMINE/METHAMP Negative Negative 10/04 5:09 PM EDT [facility] Comment:AMPH/METH screening cut off = 1000 ng/mL COCAINE METABOLITE Negative Negative 2024 5:09 PM EDT [facility] Comment:Cocaine screening cu t off value = 300 ng/mL ECSTASY Negative Negative 10/04/2024 5:09 PM EDT [facility] Comment:Ecstasy screening cu t off value = 500 ng/mL METHADONE Negative Negative 10/04/2024 5:09 PM EDT [facility] Comment:Methadone screening cut off value = 300 ng/mL. OPIATES Negative Negative 10/04/2024 5:09 PM EDT [facility] Comment: Opiates screening cut off value = 300 ng/mL This test is used for the detection of codeine, hydrocodone (>1000 ng/mL), morphine and hydromorphone (>900 ng/mL) in urine. OXYCODONE Negative Negative 10/04/2024 5:09 PM EDT [facility] Comment: Oxycodone screening cut off value = 300 ng/mL This test is used for the detection of oxycodone and oxymorphone in urine. PHENCYCLIDINE Negative Negative 10/04/2024 5:09 PM EDT [facility] Comment:Phencyclidine screen ing cut off value = 25 ng/mL CANNABINOIDS Negative Negative 10/04/2024 5:09 PM EDT [facility] Comment:Cannabinoids/THC scr eening cut off value = 50 ng/mL Urine Barbiturates Negative Negative 2024 5:09 PM EDT [facility] Comment:Barbiturates screeni ng cut off value = 200 ng/mL BENZODIAZEPINES Negative Negative 5:09 PM EDT [facility] Comment:Benzodiazepines scre ening cut off value = 200 ng/mL Urine Urine specimen collection, clean catch / Unknown 10/04/2024 3:40 PM EDT 10/04/2024 4:23 PM EDT us Yvon Post MD URINE ORDERABLES Final Result [facility] [address] [place] [address], [place] [phone] * [place] [facility] COMPREHENSIVE ANATOMIC SURVEY (10/04/2024 3:20 PM EDT) Anatomical Region Laterality Modality OB-DIESEL LOCOMOTIVE FIRER Ultrasound 10/04/2024 2:51 PM EDT Narrative 10/04/2024 5:21 PM EDT NAME: LA ALARCON: [id number] : 1995 SEX: F Accession Number: [id number] ORDERING PHYSICIAN: YVON POST REFERRING PHYSICIAN: LUCÍA LEDESMA Coding ----- --------- Procedures 43225: Ultrasound, uterus, real time with image documentation, [...] EFW (oz) 8 oz EFW by: Hadlock ([id number]) Extended Tibia 47.6 mm 28w 6d 7% Isac Summer Counselor 3.0 mm CM 5.2 mm 7% Nicolaides [...] Heart / Thorax 4-chamber view. 3-vessel view. 1-dljpzg-umanrxo view. Interventricular septum. Great vessels. Diaphragm. Abdomen [...] ALARCON : 1995 SEX: F Accession Number: [id number] ORDERING PHYSICIAN: YVON POST REFERRING PHYSICIAN: LUCÍA LEDESMA Coding ----- --------- Procedures [id number]: Ultrasound, uterus, real time with imagedocumentation, and [...] EFW (oz) 8 oz EFW by: Hadlock ([id number]) Extended Tibia 47.6 mm 28w 6d 7% Isac Summer Counselor 3.0 mm CM 5.2 mm 7% Nicolaides [...] Heart / Thorax 4-chamber view. 3-vessel view. 1-wwjhsf-cdrkmpu view.Interventricular septum. Great vessels. Diaphragm. Abdomen Kidneys. [...] intrauterine consistent with 31w 0d with an JANYN of12/06/2024. The HC measures less than the 3rd percentile for the gestational agebut reference biometric measurement within 2 SD of the mean (Stephanie and colleagues, 1984). Amniotic fluid MVP measures 3.6 cm. Recommendations ----- --------- Subsequent follow up or other follow up as clinically determined byprimary OB provider unless otherwise specified by [facility]. Results forwarded to ordering provider so they can follow up with thepatient as necessary. Yvon Post MD IMG US ORDERABLES Final Resul t * Syphilis Total (Unknown Syphilis Status) (10/04/2024 1:02 PM EDT) [facility] SYPHILIS TOTAL <0.2 <=0.8 AI 10/04/2024 3:16 PM EDT [facility] Blood Venous blood / Unknown Venipuncture / Unknown 10/04/2024 1:02 PM EDT 10/04/2024 1:13 PM EDT Narrative [facility] - 10/04/2024 3:16 PM EDT NON REACTIVE No serologic evidence of infection to Treponema pallidum. Repeat testing may be considered in patients with suspected acute or primary syphilis in 2 to 4 weeks. Kay Levi MD LAB BLOOD ORDERABLES Final Res ult [facility] [address] [place] [address], * Type and screen(includes indirect reanna) (10/04/2024 1:02 PM EDT) Only the most recent of2 resultswithin the time period is included. [facility] ABO A 10/04/2024 2:03 PM EDT [facility] RH Positive 10/04/2024 2:03 PM EDT [facility] Antibody Screen Negative 10/04/2024 2:03 PM EDT [facility] Blood Venous blood / Unknown Venipuncture / Unknown 10/04/2024 1:02 PM EDT 10/04/2024 1:19 PM EDT Kay Levi MD BLOOD BANK TEST ORDERABLES Paco walter Result - Final [facility] - [place] [address] [place] [address], [facility] [address] [place] [address], [place] * (ABNORMAL) CBC and differential (10/03/2024) Neutrophils Absolute (A) 11.90(A) 1.30 - 8.30 10*3/uL MANUALLY TRANSCRIBED RESULTS Auto WBC 15.2(A) 3.3 - 10.0 10*3/mL MANUALLY TRANSCRIBED RESULTS Blood Lucía R Angel DO LAB BLOOD ORDERABLES Final Resu lt MANUALLY TRANSCRIBED RESULTS * Liver panel (10/03/2024) Pathologist [facility] AST 13 13 - 35 U/L MANUALLY TRANSCRIBED RESULTS Blood Venous blood / Unknown Lucía R Angel DO LAB BLOOD ORDERABLES Final Resu lt Performing Organization Address [facility]/ZIP Co de Phone Number MANUALLY TRANSCRIBED RESULTS * Basic Metabolic Panel (10/03/2024) Pathologist [facility] BUN 10 4 - 21 mg/dL MANUALLY TRANSCRIBED RESULTS Creatinine 0.8 0.5 - 1.1 mg/dL MANUALLY TRANSCRIBED RESULTS Blood Venous blood / Unknown Lucía R Angel DO LAB BLOOD ORDERABLES Final Resu lt Performing Organization Address [facility]/ZIP Co de Phone Number MANUALLY TRANSCRIBED RESULTS * Chlamydia/GC by PCR Young Swab (08/20/2024) Pathologist [facility] Chlamydia Dna(Pcr) negative Gonorrhoeae Dna(Pcr) negative Swab Lucía R Angel DO MICROBIOLOGY - GENERAL ORDERABL ES Final Result from Last 3 Months Insurance [employer] ANTHEM Advance Directives * Full Code (Latest Code Status on File) Date Activated Date Inactivated Comments 10/04/2024 12:52 PM 10/05/2024 5:08 PM
--- OUTSIDE RECORDS SUMMARY | 2024-10-13 12:54 | XMS_ITS | Patient Health Record ---
Author Organization [facility] Address [address] [place] [address] Care Team Providers Care Microbiology Lab Manager Name Role Phone Maliha Matos Primary Care Provider [phone] Reason For Referral No Information Plan Of Treatment No Information Insurance Providers Payer Name Payer Address Payer Phone Subscriber Number Group Number Insured Name Patient Relationship to Insured Coverage Start Date Coverage End Date ANTHEM Primary [address] [place] [address] [id number] JOSÉ MIGUEL KOLB Spouse - patient is the spouse of the insured 3
--- OUTSIDE RECORDS SUMMARY | 2024-10-13 12:54 | XMS_ITS | Encounter Summary ---
Author Organization [facility] Address [address] [place] [address] Care Team Providers Care Fourdrinier Tender Name Role Phone Unavailable Primary Care Provider Unavailabl e Encounter Details Date Type Department Care Team (Late Contact Info) Description 10/08/2024 Bamboo flowsheet [facility] [address] [place] [phone] Zack Ortiz DO [facility] [place] [address], [place] [address] Social History Tobacco Use Types Packs/Day Years [...] EDT Routine [facility] [address] [place] [phone] Zack Ortiz DO [address], [facility] documented as of this encounter Visit Diagnoses Not on filedocumented in this encounter
--- OUTSIDE RECORDS SUMMARY | 2024-10-13 12:55 | XMS_ITS | Encounter Summary ---
Author Organization [facility] Address [address] [place] [address] Care Team Providers Care Dairy Husbandman Name Role Phone Unavailable Primary Care Provider Unavailabl e Encounter Details Date Type Department Care Team (Late st Contact Info) Description 10/03/2024 Clinisync Result Encounter [facility] External Department Unsolicited Zack Ortiz DO [address], [facility]11 Social History Tobacco Use Types Packs/Day [...] Luis Armando OBGYTyra [address] [place] [phone] Zack Ortiz DO [address] [place] [address] documented as of this encounter Procedures Procedure [...] DO CLINISYNC Final Result Performing Organization Address [facility]/ZIP Co de Phone Number CLINISYNC TB * [facility] ALT (10/03/2024 3:51 PM EDT) ALANINE AMINOTRANSFERASE 14 14 - 59 U/L TB 10/03/2024 3:51 PM EDT 10/03/2024 4:14 PM EDT Narrative CLINISYNC - 10/03/2024 4:30 PM EDT [facility] Angel DO CLINISYNC Final Result Performing Organization Address [facility]/ZIP Co de Phone Number CLINISYNC TB * (ABNORMAL) [facility] AST (10/03/2024 3:51 PM EDT) ASPARTATE AMINO TRANSFERASE 13(L) 15 - 37 U/L TBH 10/03/2024 3:51 PM EDT 10/03/2024 4:14 PM EDT Narrative CLINISYNC - 10/03/2024 4:30 PM EDT Zack Angel DO CLINISYNC Final Result Performing Organization Address [facility]/ZIP Co de Phone Number CLINISYNC TB * ALL URIC ACID (10/03/2024 3:51 PM EDT) URIC ACID 5.3 2.6 - 6.0 mg/dL TB 10/03/2024 3:51 PM EDT 10/03/2024 4:14 PM EDT Narrative CLINISYNC - 10/03/2024 4:30 PM EDT us Zack Angel DO CLINISYNC Final Result CLINISYNC TBH * TBH CREATININE (10/03/2024 3:51 PM EDT) CREATININE 0.84 0.55 - 1.02 mg/dL TBH TBH EGFR-AF CONGOLESE >60 >=60 mL/min/1.7 3m 2 TBH TBH EGFR-NON AF CONGOLESE >60 >=60 mL/min/1.7 3m 2 TBH 10/03/2024 [...]
--- OUTSIDE RECORDS SUMMARY | 2024-10-13 12:55 | XMS_ITS | Encounter Summary ---
Author Organization [facility] Address [address] [place] [address] Care Team Providers Care Varnish Filterer Name Role Phone Unavailable Primary Care Provider Unavailabl e Encounter Details Date Type Department Care Team (Late st Contact Info) Description 10/04/2024 Clinisync Result Encounter NOMS External Department Unsolicited Zack Ortiz DO [address], [facility]11 Social History Tobacco Use Types Packs/Day [...] [facility] Luis Armando OBGYTyra [address] [place] [phone] Zack Ortiz DO [address] [place] [address] documented as of this encounter Procedures Procedure [...] us Zack Angel DO [facility] APTT (10/04/2024 8:46 AM EDT) PARTIAL THROMBOPLASTIN TIME 26.8 22.3 - 36.2 sec TB 10/04/2024 8:46 AM EDT 10/04/2024 8:50 AM EDT Narrative CLINISYNC - 10/04/2024 9:53 AM EDT Zack Angel BRASWELL Final Result Performing Organization Address [facility] Co de Phone Number [facility] * SRMCOH PROTHROMBIN TIME INR W/O COUM (10/04/2024 8:46 AM EDT) PROTHROMBIN TIME 10.3 9.0 - 11.6 sec TB TB INR 0.97 TB Comment: DESIRED INR: 2.0-3.0 CONDITIONS NOT LISTED BELOW 2.5-3.5 FOR PROSTHETIC HEART VALVE REPLACEMENT 2.5-3.5 RECURRENT THROMBOSIS 10/04/2024 8:46 AM EDT 10/04/2024 8:50 AM EDT Narrative CLINISYNC - 10/04/2024 9:53 AM EDT Zack Angel KAITLIN Final Result Performing Organization Address [facility] Co de Phone Number [facility] * (ABNORMAL) ALL CBC WITH AUTO DIFF [...] Zack Angel DO CLINISYNC Final Result CLINISYNC [facility] * ALL LDH (10/04/2024 8:46 AM EDT) LACTATE DEHYDROGENASE 153 81 - 234 U/L TBH 10/04/2024 8:46 AM EDT 10/04/2024 8:50 AM EDT Narrative CLINISYNC - 10/04/2024 9:35 AM EDT us Zack Angel DO CLINISYNC Final Result CLINISYNC [facility] * CCF ALT (10/04/2024 8:46 AM [...] DO CLINISYNC Final Result Performing Organization Address [facility] Co de Phone Number [facility] * ALL URIC ACID (10/04/2024 8:46 AM EDT) URIC ACID 5.4 2.6 - 6.0 mg/dL TB 10/04/2024 8:46 AM EDT 10/04/2024 8:50 AM EDT Narrative CLINISYNC - 10/04/2024 9:33 AM EDT Zack Johnso DO CLINISYNC Final Result Performing Organization Address [facility] Co de Phone Number SHAHZADMT TB * TBH CREATININE (10/04/2024 8:46 AM EDT) CREATININE 0.75 0.55 - 1.02 mg/dL TBH TBH EGFR-AF TURKISH >60 >=60 mL/min/1.7 3m 2 TBH TBH EGFR-NON AF TURKISH >60 >=60 mL/min/1.7 3m 2 TBH 10/04/2024 8:46 AM EDT 10/04/2024 8:50 AM EDT Narrative CLINISYNC - 10/04/2024 9:33 AM EDT Zack Angel DO CLINISYNC Final Result CLINISYMT TB * (ABNORMAL) ALL BUN (10/04/2024 8:46 AM EDT) BLOOD UREA NITROGEN 6.0(L) 7.0 - 18.0 mg/dL TBH 10/04/2024 8:46 AM EDT 10/04/2024 8:50 AM EDT Narrative CLINISYNC - 10/04/2024 9:33 AM EDT us Zack Johnso DO CLINISYNC Final Result CLINSTEPHONMT TB documented in this encounter Visit Diagnoses Not on filedocumented in this encounter
--- OUTSIDE RECORDS SUMMARY | 2024-10-13 12:55 | XMS_ITS | Encounter Summary ---
Author Organization [facility] Address [address] [place] [address] Care Team Providers Care Air Valve Mechanic Name Role Phone Unavailable Primary Care Provider Unavailabl e Encounter Details Date Type Department Care Team (Late Contact Info) Description 05/31/2024 Abstract GREG MANZANO [facility] [place] [place] [address] Zack Ortiz DO [facility] [address], [facility]11 Social History Tobacco Use Types Packs/Day [...] 10/17/2024 1:30 PM EDT Routine GREG MANZANO [facility] [place] [address] Zack Ortiz DO [address] [address] documented as of this encounter Visit Diagnoses Not on filedocumented in this encounter
--- OUTSIDE RECORDS SUMMARY | 2024-10-13 12:55 | XMS_ITS | Encounter Summary ---
Author Organization [facility] Address [address] [place] [address] Care Team Providers Care Pretzel Twisting Machine Operator Name Role Phone Unavailable Primary Care Provider Unavailabl e Encounter Details Date Type Department Care Team (Late Contact Info) Description 05/31/2024 Abstract GREG MANZANO [facility] [place] [address] Zack Ortiz DO [facility] [address], [facility]11 Social History Tobacco Use Types Packs/Day [...] 10/17/2024 1:30 PM EDT Routine GREG MANZANO [facility] [place] [address] Zack Ortiz DO [address] [address] documented as of this encounter Visit Diagnoses Not on filedocumented in this encounter
--- OUTSIDE RECORDS SUMMARY | 2024-10-13 12:55 | XMS_ITS | Encounter Summary ---
Author Organization [facility] Address [address] [place] [address] Care Team Providers Care Metal Fabricator Welder Name Role Phone Unavailable Primary Care Provider Unavailabl e Encounter Details Date Type Department Care Team (Late st Contact Info) Description 10/03/2024 Telephone [facility] Luis Armando [facility] [address] [place] [address] [place] [address] Jane Lang LPN Social History Tobacco [...] 10/03/2024 3:02 PM EDT Please refer to [facility] for diabetic management and insulin prescription documented in this encounter Plan of Treatment Upcoming Encounters Date Type Department Care Team (Late st Contact Info) Description 10/17/2024 1:30 PM EDT Routine [facility] Luis Armando OBCRIS [address] [place] [phone] Zack Ortiz DO [address] [place] [address] documented as of this encounter Visit Diagnoses Not on filedocumented in this encounter
--- OUTSIDE RECORDS SUMMARY | 2024-10-13 12:55 | XMS_ITS | Encounter Summary ---
Author Organization [facility] Address [address] [place] [address] Care Team Providers Care Senior C Software Developer Name Role Phone Unavailable Primary Care Provider Unavailabl e Encounter Details Date Type Department Care Team (Late st Contact Info) Description 10/03/2024 Clinisync Result Encounter NOMS External Department Unsolicited Lucía Ortiz DO [address], [facility]11 Social History Tobacco Use Types Packs/Day Years [...] [facility] Luis Armando OBGYN [address] [place] [phone] Lucía Ortiz DO [address] [address] documented as of this encounter Procedures Procedure [...] EDT Narrative 10/03/2024 5:48 [place] [address] Ultrasound Report Signed Patient: DORIAN RICHMOND MR#: [id number] : 1995 Acct:[id number] Age/Sex: 29 / F ADM Date: Loc: [facility] Attending Dr: Lucía Ortiz D.O. Ordering Physician: Lucía Ortiz D.O. Date of Service: 10/03/24 Procedure(s): US OB BPP w non-stress Accession Number(s): [id number] cc: Lucía Ortiz D.O.; Physician,Non-Staff M.D. The [address] [address] Patient Name: DORIAN RICHMOND MRN: [id number] date: 1995 Sex: F Assigned Patient Location: [facility] Current Patient Location: [facility] Accession/Order Number: [id number] Exam Date: 10/03/2024 17:45 Report Date: 10/03/2024 [...] Tan M.D. 10/03/2024 5:46 PM Dictation Location: [place] [address] Electronically authenticated by: [id number] Y Date: 10/03/2024 17:46 Dictated By: Robi Tan D.O. Signed By: 10/03/248 DD/ 45 TD/TT: Direct Chill Casting Operator: Procedure Note Radiology, Radiologist, - 10/03/2024 [place] [address] Ultrasound Report Signed Patient: DORIAN RICHMOND R#: [id number] : 1995Acct:[id number] Age/Sex: 29 FADM Date: Loc: [facility] [address]: Lucía Ortiz D.O. Ordering Physician: Lucía Ortiz D.O. Date of Service: 10/03/24 Procedure(s): US OB BPP w non-stress Accession Number(s): [id number] cc: Lucía Ortiz D.O.; Physician,Non-Staff [place] [address] Patient Name: DORIAN RICHMOND MRN: [id number] date: 1995 Sex: F Assigned Patient Location: [facility] Current Patient Location: [facility] Accession/Order Number: [id number] Exam Date: 10/03/2024 17:45 Report Date: 10/03/2024 [...] Tan M.D. 10/03/2024 5:46 PM Dictation Location: [place] [address] Electronically authenticated by: [id number] Y Date: 7:46 Dictated By: Robi Tan D.O. Signed By:10/03/241747 DD/ 45 TD/TT: Direct Chill Casting Operator: us Lucía Angel DO CLINISYNC IMAGING Final [...] DO CLINISYNC Final Result Performing Organization Address City/[facility]/ZIP Co de Phone Number CLINISYNC TBH * [...] DO CLINISYNC Final Result Performing Organization Address [facility] Co de Phone Number [facility] * [facility] W/O COUM [...]
--- OUTSIDE RECORDS SUMMARY | 2024-10-13 12:55 | XMS_ITS | Encounter Summary ---
Author Organization [facility] Address [id number] [address] [place] [address] Care Team Providers Care Shipping Manager Name Role Phone Unavailable Primary Care Provider [...] PM EDT Support Visit [facility]- [facility] at [facility] [address] [place] [phone] Krista Cruz RN [address] [address] Laura Weaver LD documented as of this encounter Visit Diagnoses Not on filedocumented in this encounter
--- OUTSIDE RECORDS SUMMARY | 2024-10-13 12:55 | XMS_ITS | CCD ---
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 Name Role Phone DR RORO GARNER Attending Unavailable PASCUAL, DR RORO Salazar Consulting Unavailable DR RORO GARNER Admitting Unavailable MISC, DR TOPETE Primary Care Unavailable Ann-Marie Romero Primary Care Physician NO FAMILY, PHYSICIAN Primary Care Provider Unava [...] Unavailable Unavailable Virk DDS, Yixue Unavailable Unavailable ZACK ORTIZ Attending Unavailable MANASA CONROY Referring Unavailable GWEN MCCORMICK Attending Unavailable ZACK ORTIZ Attending Unavailable ZACK ORTIZ Referring Unavailable GWEN MCCORMICK Attending Unavailable GWEN MCCORMICK Referring Unavailable ZACK ORTIZ Attending Unavailable ZACK ORTIZ Attending Unavailable Unavailable Primary Care Provider Unavailabl e Medications Current Medications Medication Drug Class(es) Dates Sig (Normalized) Sig (Original) acetaminophen 325 mg / butalbital 50 mg / caffeine 40 mg oral tablet (17 sources) Barbiturate, Central Nervous System Stimulant, Methylxanthine Start: 09-16-2020 take 1 tablet by mouth every four hours for headache APAP/butalbital/ caffeine 325 mg-50 mg-40 mg Tab 1 tab(s), Oral, q4hr for headache, 12 tab(s), Refill(s) 0, [facility]/pharmacy #[id number], 165, cm, 09/15/20 22:47:00 EDT, Height/Length Dosing, 114, kg, 09/15/20 22:47:00 EDT, Weight Dosing Start Date: 09/16/20 Status: Ordered [id number] actuat albuterol 0.09 mg/actuat metered dose inhaler (20 sources) beta2-Adrenergic Agonist take 2 puff(s) by inhalation every six hours as needed for wheezing albuterol (PROVENTIL HFA;VENTOLIN HFA) 90 mcg/actuation inhaler Inhale 2 puffs every 6 (six) hours as needed for wheezing. Active ALBUTEROL IN Act yordy Albuterol (Eqv-ProAir HFA) 90 mcg/inh inhalation aerosol (6 sources) Start: 07-06-2023 take 1 puff(s) by inhalation every six hours Albuterol (Eqv-ProAir HFA) 90 mcg/inh inhalation aerosol puff(s), Inhalation, q6hr, Refill(s) 0 Start Date: 07/06/23 Status: Ordered albuterol 0.833 mg/ml / ipratropium bromide 0.167 mg/ml inhalation solution (20 sources) Anticholinergic, beta2-Adrenergic Agonist Start: 04-27-2024 take [...] day(s), # 28 cap(s), Refills(s) 0, Pharmacy: [facility]/pharmacy #[id number], 165, cm, 04/18/24 11:46:00 EST, Height/Length Dosing, 124.5, kg, 04/18/24 11:46:00 EST, Weight Dosing Start Date: 04/18/24 Stop Date: 04/25/24 Status: Ordered atogepant 60 MG Oral Tablet [Qulipta] (1 source) Start: 07-21-2023 take 1 tablet by mouth once daily Qulipta 60 mg oral tablet 60 mg = 1 tab(s), Oral, Daily, # 30 tab(s), Refills(s) 3, Pharmacy: [facility]/pharmacy #[id number], 165.1, cm, 07/08/23 12:52:00 EDT, Height/Length Dosing, 127, kg, 07/08/23 12:52:00 EDT, Weight Dosing Start Date: 07/21/23 Status: Ordered Blood Glucose Monitoring Suppl (D-Care Glucometer) w/Device kit (20 sources) Start: 06-18-2024 End: 06-18-2025 Blood Glucose Monitoring Suppl (D-Care Glucometer) w/Device kit Indications: Gestational diabetes mellitus (GDM), antepartum, gestational diabetes method of control unspecified ([facility]) , Elevated glucose tolerance test 1 kit [...] day(s), # 14 cap(s), Refills(s) 0, Pharmacy: [facility]/pharmacy #[id number], 165.1, cm, 11/10/21 12:16:00 EDT, Height/Length Dosing, 128, kg, 07/17/21 9:33:00 EDT, Weight Dosing Start Date: 11/10/21 Stop Date: 11/17/21 Status: Ordered ciprofloxacin 500 mg oral tablet (6 sources) Quinolone Antimicrobial Start: 02-17-2022 take 1 tablet by mouth twice daily Cipro 500 mg Tab 500 mg = 1 tab(s), Oral, BID, # 14 tab(s), Refills(s) 0, Pharmacy: [facility]/pharmacy #[id number], 165.1, cm, 02/17/22 16:15:00 [...] pain, # 12 caplet(s), Refills(s) 0, Pharmacy: [facility]/pharmacy #[id number], 165, cm, 12/15/20 1:59:00 [...] cramping, # 12 cap(s), Refills(s) 0, Pharmacy: [facility]/pharmacy #[id number], 165, cm, 10/17/22 13:07:00 EDT, Height/Length Dosing, 123.3, kg, 10/17/22 13:07:00 EDT, Weight Dosing Start Date: 10/17/22 Status: Ordered Flonase 0.05 mg/inh nasal spray (14 sources) Start: 09-18-2020 take 1 spray(s) nasal route once daily Flonase 0.05 mg/inh nasal spray 1 spray(s), Nasal, Daily, 16 gram, Refill(s) 3, each nostril, [facility]/pharmacy #[id number], 165, cm, 09/18/20 9:51:00 EDT, Height/Length Dosing, 116, kg, 09/18/20 9:51:00 EDT, Weight Dosing Start Date: 09/18/20 Status: Ordered fluticasone propionate 0.05 mg/actuat metered dose nasal spray (3 sources) Corticosteroid Start: 09-18-2020 take 1 spray(s) nasal route once daily Flonase 0.05 mg/inh nasal spray 1 spray(s), Nasal, Daily, 16 gram, Refill(s) 3, each nostril, [facility]/pharmacy #[id number], 165, cm, 09/18/20 9:51:00 EDT, Height/Length Dosing, 116, kg, 09/18/20 9:51:00 EDT, Weight Dosing Start Date: 09/18/20 Status: Ordered ibuprofen 600 mg oral tablet (1 source) Nonsteroidal Anti-inflammatory Drug Start: 09-14-2021 take 600 mg by mouth every six hours Ibuprofen Active 600 MG PO Q6H September 14, 2021 12:00am isopropyl alcohol 0.7 ml/ml medicated pad (20 sources) Start: 06-18-2024 Alcohol Swabs (Alcohol Prep Pad) 70 % pads Indications: Gestational diabetes mellitus (GDM), antepartum, gestational diabetes method of control unspecified ([facility]) , Elevated glucose tolerance test Apply 1 Pad topically Daily Use four times daily to check FSBS. 150 each 3 06/18/2024 Active labetalol hydrochloride 300 mg oral tablet (4 sources) beta-Adrenergic Mariely Start: 10-08-2024 End: 10-08-2025 take 1 tablet by mouth in the morning, then take 1 tablet by mouth in the evening, then take 1 tablet by mouth at bedtime labetalol (Normodyne) 300 MG tablet Indications: Hypertension affecting in third trimester ([facility]) Take 1 tablet (300 mg) by mouth in the morning and 1 tablet (300 mg) in the evening and 1 tablet (300 mg) before bedtime. 90 tablet 11 10/08/2024 10/08/2025 Active Start: 10-05-2024 take 1 tablet by lencho th every eight hours labetaloL (NORMODYNE) 200 mg tablet Take 1 tablet (200 mg total) by mouth every 8 (eight) hours. 90 tablet 3 10/05/2024 Active 12 hr loratadine 5 mg / pseudoephedrine sulfate 120 mg extended release oral tablet (20 sources) alpha-Adrenergic Agonist Start: 07-08-2023 End: 07-18-2023 loratadine-pseudoephedrine 5 mg-120 mg ER Tab 1 tab(s), Oral, q12hr for 10 day(s), 20 tab(s), Refill(s) 0, [id number], 165.1, cm, 07/08/23 12:52:00 EDT, Height/Length Dosing, 127, kg, 07/08/23 12:52:00 EDT, Weight Dosing Start Date: 07/08/23 Stop Date: 07/18/23 Status: Ordered Start: 07-08-2023 take 1 tablet by lencho th every twelve hours [facility] All[facility] Relief-D12 5-120 MG 12 hr [...] day(s), # 21 tab(s), Refills(s) 0, Pharmacy: [facility]/pharmacy #[id number], 165.1, cm, 02/17/22 16:15:00 [...] BID, # 28 tab(s), Refills(s) 0, Pharmacy: [facility]/pharmacy #[id number], 165, cm, 12/15/20 1:59:00 EDT, Height/Length Dosing, 113, kg, 12/15/20 1:59:00 EDT, Weight Dosing Start Date: 12/15/20 Status: Ordered Start: 10-01-2020 take 1 tablet by lencho th twice daily as needed for pain Naprosyn 500 mg Tab 500 mg = 1 tab(s), Oral, BID, PRN for pain, # 20 tab(s), Refills(s) 0, Pharmacy: [facility]/pharmacy #[id number], 165.1, cm, 11/10/21 12:16:00 EDT, Height/Length Dosing, 128, kg, 07/17/21 9:33:00 EDT, Weight Dosing Start Date: 11/10/21 Status: Ordered phenazopyridine hydrochloride 200 mg oral tablet (1 source) Start: 11-10-2021 End: 11-12-2021 take 1 tablet by mouth three times daily Pyridium 200 mg Tab 200 mg = 1 tab(s), Oral, TID, X 2 day(s), # 6 tab(s), Refills(s) 0, Pharmacy: [facility]/pharmacy #[id number], 165.1, cm, 11/10/21 12:16:00 EDT, Height/Length Dosing, 128, kg, 07/17/21 9:33:00 EDT, Weight Dosing Start Date: 11/10/21 Stop Date: 11/12/21 Status: Ordered vit,codi 74/iron/folic ( VITAMIN 1+1 ORAL) (1 source) take 1 tablet by mouth in the morning vit,codi 74/iron/folic ( VITAMIN 1+1 ORAL) Take 1 tablet by mouth in the morning. Active prochlorperazine 10 mg oral tablet (3 sources) [...] q6hr, # 14 tab(s), Refills(s) 0, Pharmacy: [facility]/pharmacy #[id number], 165, cm, 06/04/21 14:38:00 [...] day(s), # 15 tab(s), Refills(s) 0, Pharmacy: [facility]/pharmacy #[id number], 165.1, cm, 01/11/23 16:14:00 EST, Height/Length Dosing, 127, kg, 01/11/23 16:14:00 EST, Weight Dosing Start Date: 01/11/23 Stop Date: 01/16/23 Status: Ordered Ventolin HFA 90 mcg/inh Aerosol-Adpt (1 source) Start: 04-18-2024 take 1 puff(s) by inhalation every six hours for wheezing Ventolin HFA 90 mcg/inh Aerosol-Adpt 1 puff(s), Inhalation, q6hr for wheezing, 18 gram, Refill(s) 0, [facility]/pharmacy #[id number], 165, cm, 04/18/24 11:46:00 EST, Height/Length Dosing, 124.5, kg, 04/18/24 11:46:00 EST, Weight Dosing Start Date: 04/18/24 Status: Ordered Zofran ODT 4 mg Tab-Dis (20 sources) Start: 10-17-2022 take 1 tablet by mouth every eight hours as needed for nausea Zofran ODT 4 mg Tab-Dis 4 mg = 1 tab(s), Oral, q8hr, PRN Nausea/Vomiting, # 16 tab(s), Refills(s) 0, Pharmacy: [facility]/pharmacy #[id number], 165, cm, 10/17/22 13:07:00 EDT, Height/Length Dosing, 123.3, kg, 10/17/22 13:07:00 EDT, Weight Dosing Start Date: 10/17/22 Status: Ordered Start: 02-17-2022 take 1 tablet by lencho th every six hours as needed for nausea Zofran ODT 4 mg Tab-Dis 4 mg = 1 tab(s), Oral, q6hr, PRN Nausea/Vomiting, # 12 tab(s), Refills(s) 0, Pharmacy: [facility]/pharmacy #[id number], 165.1, cm, 02/17/22 16:15:00 EST, Height/Length Dosing, 122, kg, 02/17/22 16:15:00 EST, Weight Dosing Start Date: 02/17/22 Status: Ordered Start: 02-25-2021 take 1 tablet by lencho th every eight hours Zofran ODT 4 mg Tab-Dis 4 mg = 1 tab(s), Oral, q8hr, # 12 tab(s), Refills(s) 0, [id number] 165, cm, 02/24/21 23:21:00 EST, Height/Length Dosing, 112, kg, 02/24/21 23:21:00 EST, Weight Dosing Start Date: 02/25/21 Status: Ordered Start: 09-16-2020 take 1 tablet by lencho th every eight hours Zofran ODT 4 mg Tab-Dis 4 mg = 1 tab(s), Oral, q8hr, # 10 tab(s), Refills(s) 0, Pharmacy: [facility]/pharmacy #[id number], 165, cm, 09/15/20 22:47:00 [...] meq/ml nasal spray (17 sources) Start: 09-18-2020 [place] Saline Mist 0.65% nasal spray 2 spray(s), Nasal, QID, 1 EA, Refill(s) 4, [id number], 165, cm, 09/18/20 9:51:00 EDT, Height/Length Dosing, 116, kg, 09/18/20 9:51:00 EDT, Weight Dosing Start Date: 09/18/20 Status: Ordered Start: 09-18-2020 [place] Saline Mis t 0.65% nasal spray 2 [...] [Unspecified maternal hypertension, third trimester] 10-08-2024 Chronic Hypertension complicating ; childbirth and the puerperium (1 source) Pre-eclampsia; Translations: [Unspecified pre-eclampsia, unspecified trimester] Onset: 5 10-04-2024 Episodic Immunizations and screening for infectious disease (2 [...] Test Name Value Interpretation Reference Range Facility US OB BPP W NON-STRESS on 10-10-2024 [place] [address] Ultrasound Report Signed Patient: SABRINA RICHMOND MR#: [id number] : 1995 Acct:[id number] Age/Sex: 29 / F ADM Date: 10/10/24 Loc: [facility] 250-[address]: Zack Ortiz D.O. Ordering Physician: Zack Ortiz D.O. Date of Service: 10/10/24 Procedure(s): US OB BPP w non-stress Accession Number(s): [id number] cc: Zack Ortiz D.O.; Physician,Non-Staff [facility] [place] [id number] Patient Name: SABRINA RICHMOND MRN: [id number] date: 1995 Sex: F Assigned Patient Location: [facility] Current Patient Location: [facility] Accession/Order Number: [id number] Exam Date: 10/10/2024 14:02 Report Date: 10/10/2024 14:29 At the request of: ZACK ORTIZ DO Procedure: US OB BPP w non-stress Biophysical profile. Reason for exam: Gestational diabetes COMPARISON: 10/03/2024 TECHNIQUE: Transabdominal imaging of the gravid uterus was obtained. FINDINGS: The implementation consultant reports a BPP of 8 out of 8. SCOOTER is normal at 11.7 cm. heart rate 134 bpm. US/US OB BPP w non-stress IMPRESSION: BPP 8 out of 8. Impression dictated by: Kahlil Voss Jr., D.O. 10/10/2024 2:29 PM Dictation Location: [place] [address] Electronically authenticated by: [id number] Y Date: 10/10/2024 14:29 Dictated By: Kahlil Voss M.D. Signed By: 10/10/24 1432 DD/ 1429 TD/TT: Check Writer Salesperson: [facility] Radiology, Radiologist, MD - 10/10/2024 [place] [address] Ultrasound Report Signed Patient: SABRINA RICHMOND MR#: [id number] : 1995 Acct:[id number] Age/Sex: 29 / F ADM Date: 10/10/24 Loc: [facility] 250-[address]: Zack Ortiz D.O. Ordering Physician: Zack Ortiz D.O. Date of Service: 10/10/24 Procedure(s): US OB BPP w non-stress Accession Number(s): [id number] cc: Zack Ortiz D.O.; Physician,Non-Staff [facility] [place] [id number] Patient Name: SABRINA RICHMOND MRN: [facility]:[id number] date: 1995 Sex: F Assigned Patient Location: [facility] Current Patient Location: [facility] Accession/Order Number: [id number] Exam Date: 10/10/2024 14:02 Report Date: 10/10/2024 14:29 At the request of: ZACK ORTIZ DO Procedure: US OB BPP w non-stress Biophysical profile. Reason for exam: Gestational diabetes COMPARISON: 10/03/2024 TECHNIQUE: Transabdominal imaging of the gravid uterus was obtained. FINDINGS: The implementation consultant reports a BPP of 8 out of 8. SCOOTER is normal at 11.7 cm. heart rate 134 bpm. US/US OB BPP w non-stress IMPRESSION: BPP 8 out of 8. Impression dictated by: Kahlil Voss Jr., D.O. 10/10/2024 2:29 PM Dictation Location: [place] [address] Electronically authenticated by: [id number] Y Date: 10/10/2024 14:29 Dictated By: Kahlil Voss M.D. Signed By: 10/10/24 1432 DD/ 1429 TD/TT: Check Writer Salesperson: [facility] Radiology Study observation (narrative) [facility] US OB BPP W NON-STRESS Ordered By: Radiologist Radiology on 10-10-2024 [facility] Work Phone: Urinalysis macro (dipstick) panel (U)on 10-08-2024 Bilirubin, UA Negative Negative - 4(70) +++ mg/dL [facility] Blood, UA Negative Negative - 50 Yossi/mcL [facility] Clarity, UA Clear [facility] Color, UA Yellow [facility] Glucose, UA Negative Negative - 1999(110) ++++ mg/dL [facility] Interpretation and review of laboratory results Abnormal [facility] Ketones, UA Negative Negative - 160(16) ++++ mg/dL [facility] Leukocytes, UA Negative Negative - 500+++ Wild/mcL [facility] Nitrite, UA Negative Negative - Positive [facility] pH, UA 6 5 - 9 [facility] Protein, UA Negative Negative - 1999(20) ++++ mg/dL [facility] Spec Grav, UA 1.03 1 - 1.03 [facility] Urobilinogen, UA 1.0 0.2 - 12 mg/dL [facility] ALL BUNon 10-04-2024 Urea nitrogen [Mass/Vol] 6 mg/dL Low 7.0 - 18.0 mg/dL [facility] ALL URIC ACIDon 10-04-2024 Urate [Mass/Vol] 5.4 mg/dL 2.6 - 6.0 mg/dL [facility] 10-04-2024 ALT [Catalytic activity/Vol] 14 U/L 14 - 59 U/L [facility] 10-04-2024 AST [Catalytic activity/Vol] 14 U/L Low 15 - 37 U/L [facility] No Panel Informationon 10-04 Interpretation and review of laboratory results Abnormal [facility] CREATININEon 10-04-2024 Creatinine [Mass/Vol] 0.75 mg/dL 0.55 - 1.02 mg/dL [facility] GFR/1.73 sq M.predicted CKD-EPI (S/P/Bld) [Vol rate/Area] >60 >=60 mL/min/1.73m 2 [facility] EGFR-NON AF CAMEROONIAN >60 >=60 mL/min/1.73m 2 [facility] ALL URIC ACIDon 10-03-2024 Urate [Mass/Vol] 5.3 mg/dL 2.6 - 6.0 mg/dL [facility] Basic Metabolic Panelon 09-15 Creatinine [Mass/Vol] 0.8 mg/dL 0.5 - 1.1 mg/dL [facility] CBC and differentialon 10-03 Neutrophils (Bld) [#/Vol] 11.9 10*3/uL Abnormal 1.30 - 8.30 10*3/uL [facility] WBC (Bld) [#/Vol] 15.2 10*3/mL Abnormal 3.3 - 10.0 10*3/mL [facility] 10-03-2024 ALT [Catalytic activity/Vol] 14 U/L 14 - 59 U/L [facility] 10-03-2024 Interpretation and review of laboratory results Abnormal [facility] Laboratory - Chemistry and C hemistry - challengeon 10-03-2024 AST [Catalytic activity/Vol] 13 U/L 13 - 35 U/L [facility] Urea nitrogen [Mass/Vol] 10 mg/dL 4 - 21 mg/dL [facility] No Panel Informationon 10-03 [facility] Interpretation and review of laboratory results Abnormal [facility] CREATININEon 10-03-2024 Creatinine [Mass/Vol] 0.84 mg/dL 0.55 - 1.02 mg/dL [facility] GFR/1.73 sq M.predicted CKD-EPI (S/P/Bld) [Vol rate/Area] >60 >=60 mL/min/1.73m 2 [facility] EGFR-NON AF CAMEROONIAN >60 >=60 mL/min/1.73m 2 [facility] US OB BPP W NON-STRESS on 10-03-2024 [place] [address] Ultrasound Report Signed Patient: SABRINA RICHMOND MR#: [id number] : 1995 Acct:[id number] Age/Sex: 29 / F ADM Date: Loc: [facility] 251-[address]: Zack Ortiz D.O. Ordering Physician: Zack Ortiz D.O. Date of Service: 10/03/24 Procedure(s): US OB BPP w non-stress Accession Number(s): [id number] cc: Zack Ortiz D.O.; Physician,Non-Staff [place] [facility] [place] [id number] Patient Name: SABRINA RICHMOND MRN: [facility]:[id number] date: 1995 Sex: F Assigned Patient Location: [facility] Current Patient Location: [facility] Accession/Order Number: [id number] Exam Date: 10/03/2024 17:45 Report Date: 10/03/2024 [...] Tan M.D. 10/03/2024 5:46 PM Dictation Location: [place] [address] Electronically authenticated by: [id number] Y Date: 10/03/2024 17:46 Dictated By: Robi Tan D.O. Signed By: 10/03/241747 DD/ 45 TD/TT: Check Writer Salesperson: [facility] Radiology, RadiologistMD - 10/03/2024 [place] [address] Ultrasound Report Signed Patient: SABRINA RICHMOND MR#: [id number] : 1995 Acct:[id number] Age/Sex: 29 / F ADM Date: Loc: [facility] 251-[address]: Zack Ortiz D.O. Ordering Physician: Zack Ortiz D.O. Date of Service: 10/03/24 Procedure(s): US OB BPP w non-stress Accession Number(s): [id number] cc: Zack Ortiz D.O.; Physician,Non-Staff [facility] [place] [address] Patient Name: SABRINA RICHMOND MRN: [facility]:[id number] date: 1995 Sex: F Assigned Patient Location: [facility] Current Patient Location: [facility] Accession/Order Number: [id number] Exam Date: 10/03/2024 17:45 Report Date: 10/03/2024 [...] Tan M.D. 10/03/2024 5:46 PM Dictation Location: [place] [address] Electronically authenticated by: [id number] Y Date: 10/03/2024 17:46 Dictated By: Robi Tan D.O. Signed By: 10/03/241747 DD/ 45 TD/TT: Check Writer Salesperson: [facility] Radiology Study observation (narrative) [facility] US OB BPP W NON-STRESS Ordered By: Radiologist Radiology on 10-03-2024 [facility] Work Phone: US OB FOLLOW UP [...] II, MD, PHD at 04-Oct-2024 08:06:58 AM [facility] Normal Not Available Comment on above: Order Comment: US OB SCAN FOR GROWTH Estimated Date of Delivery: 12/06/24 Gestational Age as of 09/17/2024: 28w4d Urinalysis macro (dipstick) panel (U)on 10-03-2024 Bilirubin, UA Negative Negative - 4(70) +++ mg/dL [facility] Blood, UA Negative Negative - 50 Yossi/mcL [facility] Color, UA Yellow [facility] Glucose, UA Negative Negative - 2000(110) ++++ mg/dL [facility] Ketones, UA Negative Negative - 160(16) ++++ mg/dL [facility] Leukocytes, UA Positive Negative - 500+++ Wild/mcL [facility] Comment on above: 2+ Nitrite, UA Negative Negative - Positive [facility] pH, UA 6 5 - 9 [facility] Protein, UA Negative Negative - 1999(20) ++++ mg/dL [facility] Spec Grav, UA 1.01 1 - 1.03 [facility] Urobilinogen, UA 0.2 0.2 - 12 mg/dL [facility] US OB LIMITED 1+ FETUSESon 0 08-29-2024 [...] GDLNon AGE GDLN ACOG TESTING Note . [facility] Comment on above: TESTS RESULT FLAG UN ITS REF RANGE LAB Clinician Provided Cytology Information Source.............Cervix No. of containers..01 ThinPrep Vial Age Algo ACOG Haydee... 30-65 01 FLAG LEGEND: L-Low Normal,H-High Normal,LL-Alert Low,HH-Alert High <-Panic Low,>-Panic High,A-Abnormal,AA-Critical Abnormal Performed at: 01 =G [address] [place] [address] Glory Schaffer MD, HPV APTIMA Negative Negative [facility] Comment on above: This nucleic acid am plification test detects fourteen high- risk HPV types (16,18,31,33,35,39,45,51,52,56,58,59,66,68) without differentiation. Performed at: =[address] [id number] Site Superintendent: Glory Schaffer MD, Phone: [phone] Performed at: [address], [place] [id number] Site Superintendent: Glory Schaffer MD, Phone: [phone] IGP, APTIMA HPV, RFX 16/18,45 Note . [facility] Comment on above: TESTS RESULT FLAG UN ITS REF RANGE LAB DIAGNOSIS: 02 NEGATIVE FOR INTRAEPITHELIAL LESION OR MALIGNANCY. Specimen adequacy: 02 Satisfactory for evaluation. No endocervical component is identified. Performed by: Marcos Darling, Lidar Technician (ASCP) . 02 Note: Note 02 The [...] High,A-Abnormal,AA-Critical Abnormal Performed at: 02 [address] [facility] [address] [address] Glory Schaffer MD, BRUSH-SPATULA CERVIX [facility] RECURRENT VAGINITIS (HTRX)on 08-21-2024 ATOPOBIUM VAGINAE 0 [facility] ATOPOBIUM VAGINAE Not detected [facility] BVAB 2,3 (BACTERIAL VAGINOSIS ASSOCIATED BACTERIA 2, 3); MOBILUNCUS SPP 0 [facility] BVAB 2,3 (BACTERIAL VAGINOSIS ASSOCIATED BACTERIA 2, 3); MOBILUNCUS SPP Not detected [facility] FORREST ALBICANS, PARAPSILOSIS, TROPICALIS 0 [facility] FORREST ALBICANS, PARAPSILOSIS, TROPICALIS Not detected [facility] FORREST GLABRATA 0 [facility] FORREST GLABRATA Not detected [facility] FORREST KRUSEI 0 [facility] Healthcare FORREST KRUSEI Not detected [facility] CHLAMYDIA TRACHOMATIS 0 [facility] Healthcare CHLAMYDIA TRACHOMATIS Not detected N [facility] GARDNERELLA VAGINALIS 0 [facility] S Healthcare GARDNERELLA VAGINALIS Not detected N [facility] MEGASPHAERA (TYPES 1, 2) 0 [facility] Healthcare MEGASPHAERA (TYPES 1, 2) Not detected [facility] MYCOPLASMA GENITALIUM 0 [facility] S Healthcare MYCOPLASMA GENITALIUM Not detected N [facility] Healthcare NEISSERIA GONORRHOEAE 0 [facility] S [facility] NEISSERIA GONORRHOEAE Not detected N [facility] TRICHOMONAS VAGINALIS 0 [facility] S [facility] TRICHOMONAS VAGINALIS Not detected N [facility] Healthcare Urinalysis macro (dipstick) panel (U)on 08-20-2024 Bilirubin, UA Negative Negative - 4(70) +++ mg/dL [facility] Blood, UA Negative Negative - 50 Yossi/mcL [facility] Clarity, UA Clear [facility] Color, UA Yellow [facility] Glucose, UA Negative Negative - 2000(110) ++++ mg/dL [facility] Interpretation and review of laboratory results Normal [facility] Ketones, UA Negative Negative - 160(16) ++++ mg/dL [facility] Leukocytes, UA Negative Negative - 500+++ Wild/mcL [facility] Nitrite, UA Negative Negative - Positive [facility] pH, UA 7 5 - 9 [facility] Protein, UA Negative Negative - 1999(20) ++++ mg/dL [facility] Spec Grav, UA 1.015 1 - 1.03 [facility] Urobilinogen, UA 0.2 0.2 - 12 mg/dL [facility] Urinalysis macro (dipstick) panel (U)on 07-24-2024 Bilirubin, UA Negative Negative - 4(70) +++ mg/dL [facility] Blood, UA Negative Negative - 50 Yossi/mcL [facility] Clarity, UA Clear [facility] Color, UA Yellow [facility] Glucose, UA Negative Negative - 1999(110) ++++ mg/dL [facility] Interpretation and review of laboratory results Normal [facility] Ketones, UA Negative Negative - 160(16) ++++ mg/dL [facility] Leukocytes, UA Negative Negative - 500+++ Wild/mcL [facility] Nitrite, UA Negative Negative - Positive [facility] pH, UA 6.5 5 - 9 [facility] Protein, UA Negative Negative - 1999(20) ++++ mg/dL [facility] Spec Grav, UA 1.025 1 - 1.03 [facility] Urobilinogen, UA 0.2 0.2 - 12 mg/dL [facility] US OB 14+ WEEKS ANATOMY SCAN on [...] II, MD, PHD at 25-Jul-2024 08:22:22 AM [facility] Normal Not Available Comment on above: Order Comment: US OB ANATOMY SINGLE W US OB CERVICAL LENGTH Estimated Date of Delivery: 12/06/24 Gestational Age as of 06/18/2024: 15w4d Urinalysis macro (dipstick) panel (U)on 06-18-2024 Bilirubin, UA Negative Negative - 4(70) +++ mg/dL [facility] Blood, UA Negative Negative - 50 Yossi/mcL [facility] Healthcare Clarity, UA Clear [facility] Color, UA Yellow [facility] Healthcare Glucose, UA Negative Negative - 1999(110) ++++ mg/dL [facility] Interpretation and review of laboratory results Normal [facility] Healthcare Ketones, UA Negative Negative - 160(16) ++++ mg/dL [facility] Leukocytes, UA Trace Negative - 500+++ Wild/mcL [facility] Healthcare Nitrite, UA Negative Negative - Positive [facility] pH, UA 7 5 - 9 [facility] Healthcare Protein, UA Negative Negative - 2000(20) ++++ mg/dL [facility] Spec Grav, UA 1.01 1 - 1.03 [facility] Urobilinogen, UA 0.2 0.2 - 12 mg/dL [facility] TBH DRUG SCREEN RAPID (URINE )on 05-28-2024 AMPHETAMINE SCREEN URINE Negative NEGATIVE [facility] BARBITURATES SCREEN URINE Negative NEGATIVE [facility] BENZODIAZEPINES SCREEN URINE Negative NEGATIVE [facility] BUPRENORPHINE SCREEN URINE Negative NEGATIVE [facility] Comment on above: DRUG CLASS TEST [...] 300 ng/mL CANNABINOID SCREEN URINE Negative NEGATIVE [facility] COCAINE SCREEN URINE Negative NEGATIVE [facility] METHADONE SCREEN URINE Negative NEGATIVE NO [facility] METHAMPHETAMINES SCREEN URINE Negative NEGATIVE [facility] OPIATE SCREEN URINE Negative NEGATIVE [facility] OXYCODONE SCREEN URINE Negative NEGATIVE NO [facility] PHENCYCLIDINE SCREEN URINE Negative NEGATIVE [facility] TRICYCLIC ANTIDEPRESSANT URINE Negative NEGATIVE [facility] BOX TESTon 05-24-2024 BOX TEST SENT OUT [facility] BOX1 [facility] BOX2 05/24/24 [facility] HCG ( test) Ql (U)o n 05-22-2024 Interpretation and review of laboratory results Abnormal [facility] Preg Test, Ur Positive Negative [facility] US Pelvis transvaginalon EXAM: US OB TRANSVAGINAL [...] II, MD, PHD at 20-May-2024 10:38:05 PM [facility]AG[facility] Una Webber MD - 05/20/2024 [...] the left ovary was not visualized. Electronically Signed:Electronicjeremías y signed by UNA WEBBER II, MD, PHD at 20-May-2024 10:38:05 PM [facility] US Pelvis transvaginalOrdere d By: Una Webber on 05-20-2024 [facility] Work Phone: US OB TRANSVAGINALon 025 US [...] the left ovary was not visualized. Electronically Signed:Electronicjeremías y signed by UNA WEBBER II, MD, PHD at 20-May-2024 10:38:05 PM [facility] Normal Not Available Comment on above: Order Comment: US OB TRANSVAGINAL No LMP recorded. US Pelvis transvaginalon Radiology Study observation (narrative) [facility] Ambulatory Visit Summaryon 0 04-27-2024 Ambulatory [...] a day asthma Refills: [address] [facility]/pharmacy #[id number] New predniSONE (predniSONE 10 mg Tab) See instructions asthma take 2 tabs by mouth for 3 days, then take 1 tab by mouth for 3 days, then stop Pickup at [facility]/pharmacy #[id number] Unchanged albuterol (Albuterol (Eqv-ProAir HFA) 90 mcg/ inh inhalation aerosol) Inhalation Every 6 hours Unchanged albuterol (Ventolin HFA 90 mcg/ inh Aerosol-Adpt) 1 Puffs Inhalation Every 6 hours as needed for for wheezing Unchanged meclizine (meclizine 25 mg Tab) 1 Tablets By Mouth 3 times a day as needed for for dizziness Unchanged Non-Formulary Medication ( Vitamins) Pharmacy Information [facility]/pharmacy #[id number]: [address] [place], [place] [phone] Allergies No Known Allergies Problems Ongoing - [...] choosing us for your care. Normal [facility] Family Medicine Office/Clini c Noteon 04-27-2024 Family [...] mL, Inhalation, QID, 30 EA, Refill(s) 2, [facility]/pharmacy #[id number], 165, cm, 04/27/24 9:52:00 EDT, Height/Length Dosing, 126, kg, 04/27/24 9:52:00 EDT, Weight Dosing predniSONE, See Instructions, take 2 tabs by mouth for 3 days, then take 1 tab by mouth for 3 days, then stop, # 9 tab(s), Refills(s) 0, Pharmacy: [facility]/pharmacy #[id number], 165, cm, 04/27/24 9:52:00 EDT, Height/Length [...] hours, # 9 tab(s), Refills(s) 1, Pharmacy: [facility]/pharmacy #[id number], 165, cm, 07/06/23 8:52:00 EDT, Height/Length [...] virus vac (more content not included)... Normal [facility] Comment on above: Result Comment: Elec tronically Signed By: JOAQUÍN RODRIGUEZ\.br\Date and Time Signed: 04/27/24 10:37 EDT ED Clinical Summaryon 2024 ED Clinical Summary ED Clinical Summary [place] [id number] ED Clinical Summary Person Information Name: SABRINA RICHMOND [facility] Age: 28 Years : 1995 Sex: Female Language: Prydeinig PCP: JOAQUÍN RODRIGUEZ Marital Status: Phone: [phone] Visit Id: Visit Reason: Weakness or fatigue; [...] 14:10:02 04/18/2024 14:10:02 04/18/2024 14:10:02 ADDRESS: [address] [place] [id number] PHYS DOC NOTES: MEDICAL INFORMATION: Prescriptions Given: New Medications [facility]/pharmacy #[id number], [address] [place], [place] [phone], [phone] amoxicillin (amoxicillin 500 mg Cap) 2 Capsules [...] PATIENT EDUCATION INFORMATION: Instructions: Community-Acquired Pneumonia, Adult, Rgev-tv-Xmpw Follow up: With: Address: When: REY ALAS [address] [place] [address] Business (1) In 3 days 04/21/2024 Comments: Call Dr for diagnosis based follow up DIAGNOSIS: Pneumonia Normal [facility] ED Note-Physicianon 04-19-19 ED Note-Physician [...] and Complexity of Problems Differential Diagnosis: [] [facility] Data External documents reviewed: [] My [...] moving forward. Mark Fitzpatrick PA-C had a hmpc-ui-accy interaction with the patient. I personally performed [...] day(s), # 28 cap(s), Refills(s) 0, Pharmacy: [facility]/pharmacy #[id number], 165, cm, 04/18/24 11:46:00 EST, Height/Length Dosing, 124.5, kg, 04/18/24 11:46:00 EST, Weight Dosing Influenza A&B Ag Rapid COVID Antigen ([facility]) Disposition Plan Patient Discharge Condition stable Discharge Disposition to home Discharge Prescription List Prescriptions amoxicillin 500 mg Cap, 1000 mg= 2 cap(s), Oral, q12hr Ventolin HFA 90 mcg/inh Aerosol-Adpt, 1 puff(s), Inhalation, q6hr, PRN Follow-up With When Contact Information REY ALAS In 3 days 04/21/2024 EST [address] [place] [phone] Business (1) Additional Instructions: Call Dr for diagnosis based follow up Patient Education Community-Acquired Pneumonia, Adult, Ezdu-hx-Vwue Attestation Patient seen and evaluated by the physician marketing assistant manager. Attending physician was present in the emergency department and supervised care. This visit was performed by both the physician and an APC. I performed all aspects of the MDM as documented. This report was transcribed using voice recognition software. Every effo (more content not included)... Normal [facility] Comment on above: Result Comment: Elec tronically Signed By: Alva Jo M.D.\.br\Date and Time Signed: 04/18/24 18:02 EST\.br\Electronically Co-Signed By: Mark Jackman PA-C\.br\Date and Time Co-Signed: 04/18/24 16:19 EST ED Patient Summaryon 025 ED Patient Summary ED Patient Summary [address] [address] Patient Discharge Instructions Person Information Name: SABRINA RICHMOND Age: 28 Years Arrival Date: 04/18/2024 11:36:25 Discharge Diagnosis: Pneumonia Primary Care Physician: JOAQUÍN RODRIGUEZ Provider Information Primary Provider: Alva Jo M.D. Advanced Necktie Centralizing Machine Operator:Gasper PA-C, Mark J. The exam and treatment you received in the Emergency Department were for an urgent problem and are not intended as complete care. It is important that you follow up with a doctor, nurse practitioner, or physician???s marketing assistant manager for ongoing care. If your symptoms become worse or you do not improve as expected and you are unable to reach your usual health care provider, you should return to the Emergency Department. We are available 24 hours a day. SABRINA RICHMOND has been given the following list of patient education materials, prescriptions and follow-up instructions: Follow-up Instructions: With: Address: When: REYTyra ALAS [address] [place] [address] Business (1) In 3 days 04/21/2024 Comments: Call Dr for diagnosis based follow up In the event that this physician does not participate in your insurance network, please consult with your insurance company to find a nearby participating provider. Patient Education Materials: Community-Acquired Pneumonia, Adult, Iuqc-ji-Mdfs A MESSAGE TO ALL PATIENTS REGARDING OPIOIDS PRESCRIPTION OPIOIDS: WHAT YOU NEED TO KNOW Prescription opioids can be used to help relieve dkvsnpyd-du-fgbgyl pain and are often prescribed following a [...] If you (more content not included)... Normal [facility] Influenza A&B Agon 5 Influenzae A Ag Negative Normal Negative [facility] Comment on above: Performed By: #### 1 [id number] #### [facility] [address] [place] [address] Influenzae B Ag Negative Normal Negative [facility] Comment on above: Result Comment: Test sensitivity and specificity vary for age group, specimen type, antigen types, and prevalence of disease. Test results must be evaluated in conjunction with other clinical data available to the physician. Individuals who received nasally administered Influenza A vaccine may have positive test results up to 3 days after vaccination. Performed By: #### 1 [id number] #### [facility] [address] [place] [address] MICRO OTHER TESTSOrdered By: Mary Sears on 04-18-2024 Influenzae A Ag Negative (04/18/24 12:06 PM) Normal Negative [facility] Man Sero Influenzae B Ag Negative 1 (04/18/24 12:06 PM) Normal Negative [facility] Sero Comment on above: Interpretive Data: [...] NEG Ctl Pass (04/18/24 12:06 PM) Normal [facility] Man Sero Rapid COV Int POS Ctl Pass (04/18/24 12:06 PM) Normal [facility] SARS-CoV+SARS-CoV-2 (COVID-19) Ag IA.rapid Ql (Resp) Not Detected 2 (04/18/24 12:06 PM) Normal Not Detected [facility]ero Comment on above: Interpretive Data: T he Stunn Veritor System for Rapid Detection of SARS-CoV-2 [...] terminated or revoked sooner. Rapid COVID Antigen ([facility])on 04-18-2024 Rapid COV Int NEG Ctl Pass Normal [facility] Comment on above: Performed By: #### 2 [id number] #### [facility] [address] [place] [address] Rapid COV Int POS Ctl Pass Normal [facility] Comment on above: Performed By: #### 2 [id number] #### [facility] [address] [place] [address] SARS-CoV+SARS-CoV-2 (COVID-19) Ag IA.rapid Ql (Resp) Not detected Normal Not Detected [facility] Comment on above: Result Comment: The Stunn Veritor??? System for Rapid Detection of SARS-CoV-2 [...] other viruses or pathogens; and, in the [facility], this test is only authorized for the duration of the declaration that circumstances exist justifying the authorization of emergency use of in vitro diagnostics for detection and/or diagnosis of the virus that causes COVID-19 under Section 564(b)(1) of the Act, 21 U.S.C. ??? 360bbb-3(b)(1), unless the authorization is terminated or revoked sooner. Performed By: #### 2 [id number] #### [facility] [address] [address] MRI Brain w/ + w/o Contrasto n [...] Vueway Contrast amount in ml's: 10 Normal [facility] Ambulatory Visit Summaryon 0 10-10-2023 Ambulatory Visit Summary Ambulatory Visit Summary SABRINA RICHMOND :1995 Visit Date:10/10/2023 Ambulatory Visit Instructions Your [...] 2:00 PM EDT With: JOAQUÍN RODRIGUEZ Where: [facility] [address] [place] [address]- You Need to Complete the Following MRI Brain w/ + w/o Contrast, 10/10/23, Routine, Order for Future Visit, Transport Mode: Ambulatory, Reason: Headache, No, No, Intractable migraine with aura Complicated migraine, pp_set_radiology_sub specialty, [facility] Someone Will Contact You Regarding These Appointments [facility] External Ambulatory Referral, Dermatology, [facility], [place], 10/10/23 10:54:00 EDT, [facility] Medications What How [...] for choosing us for your care. Normal [facility] Family Medicine Office/Clini c Noteon 10-10-2023 [...] Melanocytic nevi, unspecified) Referral to derm. Ordered: [facility] External Ambulatory Referral 2. Migraine (G43.909: Migraine, [...] Daily, # 30 tab(s), Refills(s) 3, Pharmacy: [id number], 165.1, cm, 07/08/23 12:52:00 EDT, [...] No K (more content not included)... Normal [facility] Comment on above: Result Comment: Elec tronically Signed By: JOAQUÍN RODRIGUEZ\.br\Date and Time Signed: 10/10/23 11:33 EDT Consent for Treatmenton 06-15 Consent for Treatment [id number] #1.00TIFF [facility] Discharge Instructionson Discharge Instructions [id number] 5#1.00TIFF [facility] ED Clinical Summaryon 2023 ED Clinical Summary [place] [id number] ED Clinical Summary Person Information Name: SABRINA RICHMOND [facility] Age: 28 Years : 1995 Sex: Female Language: Prydeinig PCP: JOAQUÍN RODRIGUEZ Marital Status: Phone: [phone] Visit Id: Visit Reason: Fever; Sinus Pain/Congestion; [...] 14:32:37 07/08/2023 14:32:37 07/08/2023 14:32:37 ADDRESS: [address] [facility] [id number] PHYS DOC NOTES: MEDICAL INFORMATION: Prescriptions Given: New Medications [id number], [address] [place], [place] [phone], [phone] loratadine-pseudoeph edrine (loratadine-pseudoep hedrine 5 mg-120 mg [...] Sinus Pain Follow up: With: Address: When: REYTyra ALAS [address] [place] [address] Business (1) In 3 days 07/11/2023 DIAGNOSIS: Sinus headache; Vertigo Normal [facility] ED Note-Physicianon 07-08-19 ED Note-Physician Basic [...] dizziness, # 15 tab(s), Refills(s) 0, Pharmacy: [facility]/pharmacy #6173, 165.1, cm, 07/08/23 12:52:00 [...] REY ALAS In 3 days 07/11/2023 EDT [address] [place] [address]- Business (1) Additional Instructions: Patient Education Vertigo [...] made to ensure accuracy, however, inadvertently computerized computer education teacher mistakes may be present. Appropriate healthcare [...] year, 11/07/2019 (more content not included)... Normal [facility] Comment on above: Result Comment: Elec [...] cool or dry air. Medicines ? Take ruxy-atd-uvebadg and prescription medicines only as told by [...] Reviewed: 01/03/2022 Elsevier Patient Education ? 2022 [employer] Neurology Vertigo Vertigo is the feeling [...] for stabil (more content not included)... Normal [facility] ED Patient Summaryon 024 ED Patient Summary [place] [id number] Patient Discharge Instructions Person Information Name: SABRINA RICHMOND Age: 28 Years Arrival Date: 07/08/2023 12:47:49 Discharge Diagnosis: Sinus headache; Vertigo Primary Care Physician: JOAQUÍN RODRIGUEZ Provider Information Primary Provider: Jagdish Dunn DO Advanced Necktie Centralizing Machine Operator:Jarrell King PA-C The exam and treatment you received in the Emergency Department were for an urgent problem and are not intended as complete care. It is important that you follow up with a doctor, nurse practitioner, or physician?s marketing assistant manager for ongoing care. If your symptoms become [...] REY ALAS [address] [place] [address] Business (1) In 3 days 07/11/2023 In the event that this physician does not participate in your insurance network, please consult with your insurance company to find a nearby participating provider. Patient Education Materials: Vertigo; Sinus Pain A MESSAGE TO ALL PATIENTS REGARDING OPIOIDS PRESCRIPTION OPIOIDS: WHAT YOU NEED TO KNOW Prescription opioids can be used to help relieve rwvzzybp-ks-bplrnn pain and are often prescribed following a [...] be struggling with addiction, tell your health career guidance technician and ask for guidance or call [facility]S National Helpline at 2-957-227-HELP. [employer] (more content not included)... Normal [facility] Prescriptions/Work Noteson 0 07-08-2023 Prescriptions/Work Notes [id number] 7#1.00TIFF [facility] XR Chest Single Viewon 07-07 XR Chest [...] in mGy = na DAP = na Normal [facility] Ambulatory Visit Summaryon 0 07-06-2023 Ambulatory [...] 8:40 AM EDT With: JOAQUÍN RODRIGUEZ Where: [facility] [place] Normal [facility] Family Medicine Office/Clini c Noteon 07-06-2023 [...] 28 year old female who presents to [facility] care, and for migraine. She is experiencing [...] hours, # 9 tab(s), Refills(s) 1, Pharmacy: [facility]/pharmacy #[id number], 165, cm, 07/06/23 8:52:00 EDT, Height/Length Dosing, 125.8, kg, 06/15... 4. Non-smoker (Z78.9: Other specified health status) stable Ordered: sumatriptan, 25 mg = 1 tab(s), Oral, Daily, PRN for migraine headache, may repeat dose after 2 hours up to a maximum of 200 mg in 24 hours, # 9 tab(s), Refills(s) 1, Pharmacy: [facility]/pharmacy #[id number], 165, cm, 07/06/23 8:52:00 [...] influenza vir (more content not included)... Normal [facility] Comment on above: Result Comment: Elec [...] these instructions at home: Medicines ? Take itfv-npg-oejetbf and prescription medicines only as told by [...] and dr (more content not included)... Normal [facility] CHEMISTRYOrdered By: SYSTEM SYSTEM on 01-11-2023 Anion gap [Moles/Vol] 10 mmol/L Normal 6 - 16 mEq/L F [facility] Remisol Calcium [Mass/Vol] 8.7 mg/dL Low 8.9 - 11. 1 mg/dL [facility] Chloride [Moles/Vol] 102 mmol/L Normal 101 - 1 11 mmol/L [facility] CO2 [Moles/Vol] 28 mmol/L Normal 21 - 31 mmol/L [facility] Creatinine [Mass/Vol] 1.1 mg/dL Normal 0.5 - 1.3 mg/dL [facility] GFR/1.73 sq M.predicted among non-blacks MDRD (S/P/Bld) [Vol rate/Area] 70 mL/min/1.73 m2 Normal >=59mL/min/1 .73 m2 [facility] Chem S Comment on above: Interpretive Data: C hronic kidney disease could be indicated at eGFR's of less than 60 mL/min/1.73m2. Kidney failure is indicated at less than 15 mL/min/1.73m2. Glucose [Mass/Vol] 93 mg/dL Normal 55 - 199 mg/dL [facility] Remisol Comment on above: Interpretive Data: I [...] 10 - 20 [facility] Remisol HEMATOLOGYOrdered By: [employer] SYSTEM on 01-11-2023 Basophils/100 WBC (Bld) 0.9 [...] Ag Negative (01/06/23 3:06 PM) Normal Negative [facility] Influenzae B Ag Negative 1 (01/06/23 3:06 PM) Normal Negative [facility] Man Sero Comment on above: Interpretive Data: [...] NEG Ctl Pass (01/06/23 3:06 PM) Normal [facility] Man Sero Rapid COV Int POS Ctl Pass (01/06/23 3:06 PM) Normal [facility] Man Sero SARS-CoV+SARS-CoV-2 (COVID-19) Ag IA.rapid Ql (Resp) Not Detected 2 (01/06/23 3:06 PM) Normal Not Detected [facility] Man Sero Comment on above: Interpretive Data: T he [employer] Veritor System for Rapid Detection of SARS-CoV-2 [...] PM) Normal Negative [facility] UA Auto SS [place].plasma/[place]. RBC (Bld) [Mass ratio] 0-3 /HPF Normal 0-3/HPF [facility] UA A uto SS Mucus Ql (Urine sed) Trace (10/17/22 4:33 PM) Normal [facility] UA Auto SS Nitrite Ql (U) Negative (10/17/22 4:33 PM) Normal Negative [facility] UA Auto SS pH (U) 6.0 *NA* (10/17/22 4:33 PM) Invalid Interpretation Code 5.0 - 9.0 [facility] UA Auto SS Protein (U) [Mass/Vol] Negative (10/17/22 4:33 PM) Normal Negative [facility] UA Auto SS Specific gravity (U) [Rel density] <=1.005 *NA* (10/17/22 4:33 PM) Invalid Interpretation Code 1.005 - 1.030 [facility] UA Auto SS UA Spec Desc Clean Catch (10/17/22 4:33 PM) Normal [facility] UA Auto SS Urobilinogen Qn (U) 0.5356767 {Juma'U}/dL Normal 0.0 - 1.0 EU/dL FT [...] rate/Area] mL/min/1.73 m2 Normal >=59mL/min/1 .73 m2 [facility] Chem S GFR/1.73 sq M.predicted among non-blacks MDRD (S/P/Bld) [Vol rate/Area] mL/min/1.73 m2 Normal >=59mL/min/1 .73 m2 [facility] Chem S Globulin (S) [Mass/Vol] 3.9 g/dL [...] Present (02/17/22 4:25 PM) Normal [facility] HemeManSS Erythrocyte distribution width (RBC) [Ratio] 15.5 [...] PM) Normal Negative [facility] UA Auto SS [place].plasma/[place]. RBC (Bld) [Mass ratio] 0-3 /HPF Normal [...] [facility] UA Auto SS Urobilinogen Qn (U) 0.7449587 {Juma'U}/dL Normal 0.0 - 1.0 EU/dL [facility] UA Auto SS WBC Auto Ql (U) Negative (02/17/22 7:01 PM) Normal Negative [facility] UA Auto SS WBC LM.HPF (Urine sed) [#/Area] 0-5 /HPF Normal 0-5/HPF [facility] UA Auto SS SEROLOGYOrdered By: Chio garcia on 11-10-2021 HCG.beta subunit (U) [Moles/Vol] Negative Normal [facility] Man Sero URINALYSISOrdered By: Cailin Sanders on [...] PM) Normal Negative [facility] UA Auto SS [place].plasma/[place]. RBC (Bld) [Mass ratio] 0-3 /HPF Normal [...] [facility] UA Auto SS Urobilinogen Qn (U) 0.4884280 {Juma'U}/dL Normal 0.0 - 1.0 EU/dL [facility] UA Auto SS WBC Auto Ql (U) 3+ *ABN* (11/10/21 12:40 PM) Invalid Interpretation Code Negative [facility] UA Auto SS WBC LM.HPF (Urine sed) [#/Area] 16-25 /HPF Invalid Interpretation Code 0-5/HPF [facility] UA Auto SS Basophils Auto (Bld) [#/Vol] Ordered By: PRESLEY TIMMONS on 09-13-2021 Basophils (Bld) [#/Vol] 0.0 10*3/uL 0.0-0.2 [place] Basophils/100 WBC Auto (Bld) Ordered By: PRESLEY TIMMONS on 09-13-2021 Basophils/100 WBC (Bld) 0.3 % . [facility] Blood hemoglobin measurement (mass/volume)Ordered By: PRESLEY TIMMONS on 09-13-2021 Hemoglobin (Bld) [Mass/Vol] 11.7 g/dL 11.8-15.4 [place] Blood leukocytes automated c ount (number/volume)Ordered By: PRESLEY TIMMONS on 09-13-2021 WBC (Bld) [#/Vol] 13.1 10*3/uL 4.5-11.0 [facility] Complete Blood Count Auto Di ffon 09-13-2021 Basophils (Bld) [#/Vol] 0.0 10*3/uL Normal 0.0-0.2 [place] Comment on above: Order Comment: Comme nt Draw at 630 am Result Comment: PERF ORMED BY: [place] [address] PATHOLOGIST [employer] SANDY PEREZ M.D. Performed By: #### C BC #### [facility] [address] [place] [address] Basophils/100 WBC (Bld) 0.3 % Normal . [facility] Comment on above: Order Comment: Comme nt Draw at 630 am Performed By: #### C BC #### [facility] [address] [place] [address] [place] Eosinophils (Bld) [#/Vol] 0.1 10*3/uL Normal 0.0-0.45 [place] Comment on above: Order Comment: Comme nt Draw at 630 am Performed By: #### C BC #### [facility] [address] [place] [address] [place] Eosinophils/100 WBC (Bld) 0.8 % Normal . [place] Comment on above: Order Comment: Comme nt Draw at 630 am Performed By: #### C BC #### [facility] [address] [place] [address] Erythrocyte distribution width (RBC) [Ratio] 15.3 % Normal 11.9-15.3 [place] Comment on above: Order Comment: Comme nt Draw at 630 am Performed By: #### C BC #### [address] Hematocrit (Bld) [Volume fraction] 35.2 % Normal 34.0-46.4 [place] Comment on above: Order Comment: Comme nt Draw at 630 am Performed By: #### C BC #### [address] Hemoglobin (Bld) [Mass/Vol] 11.7 g/dL Low 11.8-15.4 [place] Comment on above: Order Comment: Comme nt Draw at 630 am Performed By: #### C BC #### [address] Lymphocytes (Bld) [#/Vol] 2.4 10*3/uL Normal 1.00-4.8 [place] Comment on above: Order Comment: Comme nt Draw at 630 am Performed By: #### C BC #### [address] Lymphocytes/100 WBC (Bld) 18.5 % Normal . [place] Comment on above: Order Comment: Comme nt Draw at 630 am Performed By: #### C BC #### [address] MCH (RBC) [Entitic mass] 27.9 pg Normal 24.7-34.3 [place] Comment on above: Order Comment: Comme nt Draw at 630 am Performed By: #### C BC #### [address] MCV (RBC) [Entitic vol] 83.6 fL Normal 80-100 [facility] Comment on above: Order Comment: Comme nt Draw at 630 am Performed By: #### C BC #### [address] Mean Corpuscular HGB Conc 33.3 g/dL Normal 32.0-35.0 [place] Comment on above: Order Comment: Comme nt Draw at 630 am Performed By: #### C BC #### [address] [place] [address] [place] Monocytes (Bld) [#/Vol] 0.9 10*3/uL High 0.0-0.8 [place] Comment on above: Order Comment: Comme nt Draw at 630 am Performed By: #### C BC #### [facility] [address] [place] [id number] [facility] Monocytes/100 WBC (Bld) 6.5 % Normal . [facility] Comment on above: Order Comment: Comme nt Draw at 630 am Performed By: #### C BC #### [facility] [address] [place] [address] [place] Neutrophils (Bld) [#/Vol] 9.7 10*3/uL High 1.8-7.7 [place] Comment on above: Order Comment: Comme nt Draw at 630 am Performed By: #### C BC #### [address] Neutrophils/100 WBC (Bld) 73.9 % Normal . [place] Comment on above: Order Comment: Comme nt Draw at 630 am Performed By: #### C BC #### [facility] [address] [place] [address] [place] Nucleated RBC/100 WBC (Bld) [Ratio] 0.1 % Normal 0-0.5 [place] Comment on above: Order Comment: Comme nt Draw at 630 am Performed By: #### C BC #### [facility] [address] [place] [address] [place] Platelet mean volume (Bld) [Entitic vol] 7.2 fL Normal 6.3-10.7 [place] Comment on above: Order Comment: Comme nt Draw at 630 am Performed By: #### C BC #### [facility] [address] [place] [address] [place] Platelets (Bld) [#/Vol] 237 10*3/uL Normal 150-450 [place] Comment on above: Order Comment: Comme nt Draw at 630 am Performed By: #### C BC #### [place] [address] [place] RBC (Bld) [#/Vol] 4.21 10*6/uL Normal 3.60-5.00 [facility] Comment on above: Order Comment: Comme nt Draw at 630 am Performed By: #### C BC #### [facility] [address] WBC (Bld) [#/Vol] 13.1 10*3/uL High 4.5-11.0 [facility] Comment on above: Order Comment: Comme nt Draw at 630 am Performed By: #### C BC #### [facility] [address] Eosinophils Auto (Bld) [#/Vo l]Ordered By: PRESLEY TIMMONS on 09-13-2021 Eosinophils (Bld) [#/Vol] 0.1 10*3/uL 0.0-0.45 [place] Eosinophils/100 WBC Auto (Bl d)Ordered By: PRESLEY TIMMONS on 09-13-2021 Eosinophils/100 WBC (Bld) 0.8 % . [place] Erythrocyte distribution wid th Auto (RBC) [Ratio]Ordered By: PRESLEY TIMMONS on 09-13-2021 Erythrocyte distribution width (RBC) [Ratio] 15.3 % 11.9-15.3 [place] Hematocrit Auto (Bld) [Volum e fraction]Ordered By: PRESLEY TIMMONS on 09-13-2021 Hematocrit (Bld) [Volume fraction] 35.2 % 34.0-46.4 [place] [facility] - Hematology and Cell countsOrdered By: PRESLEY TIMMONS on 09-13-2021 Nucleated RBC/100 WBC (Bld) [Ratio] 0.1 % 0-0.5 [place] Lymphocytes Auto (Bld) [#/Vo l]Ordered By: PRESLEY TIMMONS on 09-13-2021 Lymphocytes (Bld) [#/Vol] 2.4 10*3/uL 1.00-4.8 [place] Lymphocytes/100 WBC Auto (Bl d)Ordered By: PRESLEY TIMMONS on 09-13-2021 Lymphocytes/100 WBC (Bld) 18.5 % . [place] MCH Auto (RBC) [Entitic mass ]Ordered By: PRESLEY TIMMONS on 09-13-2021 MCH (RBC) [Entitic mass] 27.9 pg 24.7-34.3 [place] MCHC Auto (RBC) [Mass/Vol]Or dered By: PRESLEY TIMMONS on 09-13-2021 MCHC (RBC) [Mass/Vol] 33.3 g/dL 32.0-35.0 [facility] MCV Auto (RBC) [Entitic vol] Ordered By: PRESLEY TIMMONS on 09-13-2021 MCV (RBC) [Entitic vol] 83.6 fL 80-100 [facility] Monocytes Auto (Bld) [#/Vol] Ordered By: PRESLEY TIMMONS on 09-13-2021 Monocytes (Bld) [#/Vol] 0.9 10*3/uL 0.0-0.8 [place] Monocytes/100 WBC Auto (Bld) Ordered By: PRESLEY TIMMONS on 09-13-2021 Monocytes/100 WBC (Bld) 6.5 % . [facility] Neutrophils Auto (Bld) [#/Vo l]Ordered By: PRESLEY TIMMONS on 09-13-2021 Neutrophils (Bld) [#/Vol] 9.7 10*3/uL 1.8-7.7 [place] Neutrophils/100 WBC Auto (Bl d)Ordered By: PRESLEY TIMMONS on 09-13-2021 Neutrophils/100 WBC (Bld) 73.9 % . [place] Platelet mean volume Auto (B ld) [Entitic vol]Ordered By: PRESLEY TIMMONS on 09-13-2021 Platelet mean volume (Bld) [Entitic vol] 7.2 fL 6.3-10.7 [place] Platelets Auto (Bld) [#/Vol] Ordered By: PRESLEY TIMMONS on 09-13-2021 Platelets (Bld) [#/Vol] 237 10*3/uL 150-450 [place] RBC Auto (Bld) [#/Vol]Ordere d By: PRESLEY TIMMONS on 09-13-2021 RBC (Bld) [#/Vol] 4.21 10*6/uL 3.60-5.00 [facility] Albumin [Mass/volume] in Ser um or PlasmaOrdered By: PRESLEY TIMMONS on 09-12-2021 Albumin [Mass/Vol] 2.3 g/dL 3.2-5.5 [facility] Comprehensive Metabolic Pane brian 09-12-2021 Albumin [Mass/Vol] 2.3 g/dL Low 3.2-5.5 [facility] Comment on above: Performed By: #### C MP #### [facility] [address] Albumin/Globulin [Mass ratio] 0.6 {ratio} Normal [place] Comment on above: Performed By: #### C MP #### [facility] [address] ALP [Catalytic activity/Vol] 183 U/L High 32-92 [place] Comment on above: Performed By: #### C MP #### [facility] [address] ALT [Catalytic activity/Vol] 15 U/L Normal 10-60 [place] Comment on above: Performed By: #### C MP #### [facility] [address] [place] [id number] [facility] AST [Catalytic activity/Vol] 15 U/L Normal 10-42 [place] Comment on above: Performed By: #### C MP #### [facility] [address] [place] [address] [place] Bilirubin [Mass/Vol] 0.7 mg/dL Normal 0.3-1.2 [facility] Comment on above: Performed By: #### C MP #### [facility] [address] [place] [address] [place] Calcium [Mass/Vol] 8.7 mg/dL Normal 8.2-10.2 [facility] Comment on above: Performed By: #### C MP #### [address] Chloride [Moles/Vol] 102 mmol/L Normal 95-114 [facility] Comment on above: Performed By: #### C MP #### [address] CO2 [Moles/Vol] 22.9 mmol/L Normal 22.0-30.0 [facility] Comment on above: Performed By: #### C MP #### [address] Creatinine [Mass/Vol] 0.69 mg/dL Normal 0.44-1.03 [facility] Comment on above: Performed By: #### C MP #### [address] Creatinine Clr Calc Pharmacy 152.06 [facility] Comment on above: Result Comment: PERF ORMED BY: [place] [address] PATHOLOGIST [employer] SANDY PEREZ M.D. Performed By: #### C MP #### [address] Estimated GFR ( Brenda > 60 [facility] Comment on above: Result Comment: GFR estimated reference range: According to KDOQI guidelines, <60 ml/min/1.73m2 is sufficient to diagnose a patient with chronic kidney disease. Performed By: #### C MP #### [address] Estimated GFR (Non- Am > 60 [facility] Comment on above: Performed By: #### C MP #### [address] Globulin (S) [Mass/Vol] 3.7 g/dL Normal [facility] Comment on above: Performed By: #### C MP #### [address] Glucose [Mass/Vol] 97 mg/dL Normal 70-100 [facility] Comment on above: Result Comment: [place] Glucose Reference Range is dependent on time and content of last meal. Glucose of more than 200 mg/dL in a nonstressed, ambulatory subject supports the diagnosis of Diabetes Mellitus. ADA recommended reference range Performed By: #### C MP #### [facility] [address] [place] [id number] [place] Potassium [Moles/Vol] 3.6 mmol/L Normal 3.5-5.1 [facility] Comment on above: Performed By: #### C MP #### [facility] [address] [place] [id number] [place] Protein [Mass/Vol] 6.0 g/dL Low 6.1-7.9 [facility] Comment on above: Performed By: #### C MP #### [facility] [address] [place] [address] [place] Sodium [Moles/Vol] 136 mmol/L Normal 136-146 [facility] Comment on above: Performed By: #### C MP #### [facility] [address] [place] [address] [place] Urea nitrogen [Mass/Vol] 6 mg/dL Low 9-23 [place] Comment on above: Performed By: #### C MP #### [facility] [address] Creatinine and Glomerular fi ltration rate.predicted panel (S/P/Bld)Ordered By: PRESLEY TIMMONS on 09-12-2021 Creatinine [Mass/Vol] 0.69 mg/dL 0.44-1.03 [facility] Estimated glomerular filtrat ion rate (GFR) non- AmericanOrdered By: PRESLEY TIMMONS on 09-12-2021 GFR/1.73 sq M.predicted among non-blacks MDRD (S/P/Bld) [Vol rate/Area] > 60 mL/Min [place] Globulin Calc (S) [Mass/Vol] Ordered By: PRESLEY TIMMONS on 09-12-2021 Globulin (S) [Mass/Vol] 3.7 g/dL [facility] No Panel InformationOrdered By: PRESLEY TIMMONS on 09-12-2021 Estimated GFR () > 60 mL/Min [place] Comment on above: GFR estimated refere nce range: According to KDOQI guidelines, <60 ml/min/1.73m2 is sufficient to diagnose a patient with chronic kidney disease. Pharmacy Creatinine Clearance (Chem 152.06 [place] Protein [Mass/volume] in Ser um or PlasmaOrdered By: PRESLEY TIMMONS on 09-12-2021 Protein [Mass/Vol] 6.0 g/dL 6.1-7.9 [facility] Serum or plasma alanine hutton otransferase measurement without P-5'-P (enzymatic activiOrdered By: PRESLEY TIMMONS on 09-12-2021 ALT No additional P-5'-P [Catalytic activity/Vol] 15 U/L 10-60 [place] Serum or plasma albumin/glob ulin mass ratioOrdered By: PRESLEY TIMMONS on 09-12-2021 Albumin/Globulin [Mass ratio] 0.6 {ratio} [place] Serum or plasma alkaline lamont sphatase measurement (enzymatic activity/volume)Ordered By: PRESLEY TIMMONS on 09-12-2021 ALP [Catalytic activity/Vol] 183 U/L 32-92 [place] Serum or plasma aspartate am inotransferase measurement (enzymatic activity/volume)Ordered By: PRESLEY TIMMONS on 09-12-2021 AST [Catalytic activity/Vol] 15 U/L 10-42 [place] Serum or plasma calcium carlie urement (mass/volume)Ordered By: PRESLEY TIMMONS on 09-12-2021 Calcium [Mass/Vol] 8.7 mg/dL 8.2-10.2 [facility] Serum or plasma chloride irwin surement (moles/volume)Ordered By: PRESLEY TIMMONS on 09-12-2021 Chloride [Moles/Vol] 102 mmol/L 95-114 [facility] Serum or plasma glucose carlie urement (mass/volume)Ordered By: PRESLEY TIMMONS on 09-12-2021 Glucose [Mass/Vol] 97 mg/dL 70-100 [facility] Comment on above: ADA recommended refe rence range Random Glucose Reference Range is dependent on time and content of last meal. Glucose of more than 200 mg/dL in a nonstressed, ambulatory subject supports the diagnosis of Diabetes Mellitus. Serum or plasma potassium me asurement (moles/volume)Ordered By: PRESLEY TIMMONS on 09-12-2021 Potassium [Moles/Vol] 3.6 mmol/L 3.5-5.1 [facility] Serum or plasma sodium measu rement (moles/volume)Ordered By: PRESLEY TIMMONS on 09-12-2021 Sodium [Moles/Vol] 136 mmol/L 136-146 [facility] Serum or plasma total biliru bin measurement (mass/volume)Ordered By: PRESLEY TIMMONS on 09-12-2021 Bilirubin [Mass/Vol] 0.7 mg/dL 0.3-1.2 [facility] Serum or plasma total carbon dioxide measurement (moles/volume)Ordered By: PRESLEY TIMMONS on 09-12-2021 CO2 [Moles/Vol] 22.9 mmol/L 22.0-30.0 [facility] Serum or plasma urea nitroge n measurement (mass/volume)Ordered By: PRESLEY TIMMONS on 09-12-2021 Urea nitrogen [Mass/Vol] 6 mg/dL 9-23 [place] Amphetamine Screen Ql (U)Ord ered By: PRESLEY TIMMONS on 09-11-2021 Amphetamines Ql (U) Negative Negative [facility] Barbiturates [Presence] in U rineOrdered By: PRESLEY TIMMONS on 09-11-2021 Barbiturates Ql (U) Negative Negative [facility] Benzodiazepines [Presence] i n UrineOrdered By: PRESLEY TIMMONS on 09-11-2021 Benzodiazepines Ql (U) Negative Negative [facility] Bilirubin Auto test strip Ql (U)Ordered By: PRESLEY TIMMONS on 09-11-2021 Bilirubin Ql (U) Negative Negative [facility] COVID-19 Antigenon 2 COVID-19 Antigen Healthcare Worker?: [...] signs and symptoms consistent with COVID-19. The Dara SARS Antigen IVET does not differentiate between SARS-CoV and SARS-CoV-2. This test was developed and its performance characteristic determined by [employer] and validated at [place]. This test has not been FDA cleared [...] for SARS Antigen by IVET PERFORMED BY: [place] [address] PATHOLOGIST [employer] SANDY PEREZ M.D. Normal [place] Comment on above: Performed By: #### C OVID-19 KAREN BUCHANANEG #### [address] COVID-19 SOFIAOrdered By: MANJU TIMMONS on 09-11-2021 SARS-CoV+SARS-CoV-2 (COVID-19) Ag IA.rapid Ql (Resp) Negative Negative [place] Comment on above: This is a duplicate Dara SARS Antigen (IVET) result to be used for statistical tracking purpose only. Chlamydia trachomatis DNA [P resence] in Specimen by EMMA with probe detectionOrdered By: PRESLEY TIMMONS on 09-11-2021 C. trachomatis DNA EMMA+probe Ql (Unsp spec) Negative Negative [place] Chlamydia/GC/Trich NAAon Chlamydia Trachomotis, EMMA Negative Normal Negative [place] Comment on above: Performed By: #### G CCHLAMTRI #### [facility] , Neisseria Gonorrhoeae, EMMA Negative Normal Negative [place] Comment on above: Performed By: #### G CCHLAMTRI #### [facility] , Trichomonas EMMA Negative Normal Negative [place] Comment on above: Result Comment: Perf ormed at: =G - [facility] [address] [facility], [place] [id number] Site Superintendent: Glory Schaffer MD, Phone: [phone] PERFORMED BY: [place] [address] PATHOLOGIST [employer] SANDY PEREZ M.D. Performed By: #### G CCHLAMTRI #### [facility] , Complete Blood Count Auto Di ffon 09-11-2021 Basophils (Bld) [#/Vol] 0.1 10*3/uL Normal 0.0-0.2 [place] Comment on above: Result Comment: PERF ORMED BY: [place] [address] PATHOLOGIST [employer] SANDY PEREZ M.D. Performed By: #### R IA W RFX #### [facility] , #### CBC #### [facility] [address] [place] [address] [place] Basophils/100 WBC (Bld) 1.1 % Normal . [facility] Comment on above: Performed By: #### R IA W RFX #### [facility] , #### CBC #### [facility] [address] [place] [address] [place] Eosinophils (Bld) [#/Vol] 0.2 10*3/uL Normal 0.0-0.45 [place] Comment on above: Performed By: #### R IA W RFX #### [facility] , #### CBC #### [facility] [address] [place] [address] [place] Eosinophils/100 WBC (Bld) 1.7 % Normal . [place] Comment on above: Performed By: #### R IA W RFX #### [facility] , #### CBC #### [facility] [address] [place] [address] Erythrocyte distribution width (RBC) [Ratio] 14.7 % Normal 11.9-15.3 [place] Comment on above: Performed By: #### R IA W RFX #### [facility] , #### CBC #### [address] Hematocrit (Bld) [Volume fraction] 37.4 % Normal 34.0-46.4 [place] Comment on above: Performed By: #### R IA W RFX #### [facility] , #### CBC #### [address] Hemoglobin (Bld) [Mass/Vol] 12.4 g/dL Normal 11.8-15.4 [place] Comment on above: Performed By: #### R IA W RFX #### [facility] , #### CBC #### [facility] [address] [place] [address] Lymphocytes (Bld) [#/Vol] 2.4 10*3/uL Normal 1.00-4.8 [place] Comment on above: Performed By: #### R IA W RFX #### [facility] , #### CBC #### [facility] [address] [place] [address] [place] Lymphocytes/100 WBC (Bld) 19.6 % Normal . [place] Comment on above: Performed By: #### R IA W RFX #### [facility] , #### CBC #### [facility] [address] [place] [address] MCH (RBC) [Entitic mass] 28.1 pg Normal 24.7-34.3 [place] Comment on above: Performed By: #### R IA W RFX #### [facility] , #### CBC #### [facility] [address] [place] [address] MCV (RBC) [Entitic vol] 84.4 fL Normal 80-100 [facility] Comment on above: Performed By: #### R IA W RFX #### [facility] , #### CBC #### [address] Mean Corpuscular HGB Conc 33.2 g/dL Normal 32.0-35.0 [place] Comment on above: Performed By: #### R IA W RFX #### [facility] , #### CBC #### [address] Monocytes (Bld) [#/Vol] 0.8 10*3/uL Normal 0.0-0.8 [place] Comment on above: Performed By: #### R IA W RFX #### [facility] , #### CBC #### [facility] [address] [place] [address] Monocytes/100 WBC (Bld) 6.6 % Normal . [facility] Comment on above: Performed By: #### R IA W RFX #### [facility] , #### CBC #### [facility] [address] [place] [address] Neutrophils (Bld) [#/Vol] 8.8 10*3/uL High 1.8-7.7 [place] Comment on above: Performed By: #### R IA W RFX #### [facility] , #### CBC #### [facility] [address] [place] [address] Neutrophils/100 WBC (Bld) 71.0 % Normal . [place] Comment on above: Performed By: #### R IA W RFX #### [facility] , #### CBC #### [facility] [address] [place] [address] Nucleated RBC/100 WBC (Bld) [Ratio] 0.1 % Normal 0-0.5 [place] Comment on above: Performed By: #### R IA W RFX #### [facility] , #### CBC #### [facility] [address] [place] [address] Platelet mean volume (Bld) [Entitic vol] 7.4 fL Normal 6.3-10.7 [place] Comment on above: Performed By: #### R IA W RFX #### [facility] , #### CBC #### [address] Platelets (Bld) [#/Vol] 256 10*3/uL Normal 150-450 [place] Comment on above: Performed By: #### R IA W RFX #### [facility] , #### CBC #### [address] RBC (Bld) [#/Vol] 4.43 10*6/uL Normal 3.60-5.00 [facility] Comment on above: Performed By: #### R IA W RFX #### [facility] , #### CBC #### [facility] [address] [place] [address] WBC (Bld) [#/Vol] 12.4 10*3/uL High 4.5-11.0 [facility] Comment on above: Performed By: #### R IA W RFX #### [facility] , #### CBC #### [facility] [address] [place] [address] Ketones Auto test strip (U) [Mass/Vol]Ordered By: PRESLEY TIMMONS on 09-11-2021 Ketones (U) [Mass/Vol] Negative Negative [facility] Laboratory - Drug toxicology Ordered By: PRESLEY TIMMONS on 09-11-2021 Opiates Ql (U) Negative Negative [place] Neisseria gonorrhoeae DNA [P resence] in Specimen by EMMA with probe detectionOrdered By: PRESLEY TIMMONS on 09-11-2021 N. gonorrhoeae DNA EMMA+probe Ql (Unsp spec) Negative Negative [place] No Panel InformationOrdered By: PRESLEY TIMMONS on 09-11-2021 SARS Antigen (LFIA) [facility] OB Urine Drug Screen (NO THC )on 09-11-2021 Amphetamine Screen,Urine Negative Normal Negative [place] Comment on above: Performed By: #### U A, OBUDS #### [facility] [address] [place] [address] [place] Barbiturate Screen,Urine Negative Normal Negative [place] Comment on above: Performed By: #### U A, OBUDS #### [facility] [address] [place] [address] [place] Benzodiazepines Screen,Urine Negative Normal Negative [place] Comment on above: Performed By: #### U A, OBUDS #### [facility] [address] [place] [address] [place] Cocaine Screen,Urine Negative Normal Negative [facility] Comment on above: Performed By: #### U A, OBUDS #### [facility] [address] [place] [address] [place] Opiate Screen,Urine Negative Normal Negative [facility] Comment on above: Performed By: #### U A, OBUDS #### [facility] [address] [place] [address] [place] Phencyclidine Screen, Urine Negative Normal Negative [place] Comment on above: Result Comment: Thes e are unconfirmed results and should not be used for legal purposes. Drug Cut-Off Concentration: AMPH 1000 ng/mL DANTE 200 ng/mL DONTA 200 ng/mL COCM 300 ng/mL OP 300 ng/mL PCP 25 ng/mL PERFORMED BY: [place] [address] PATHOLOGIST [employer] SANDY PEREZ M.D. Performed By: #### U A, OBUDS #### [address] Phencyclidine Screen Ql (U)O rdered By: PRESLEY TIMMONS on 09-11-2021 Phencyclidine Ql (U) Negative Negative [facility] Comment on above: These are unconfirme d results and should not be used for legal purposes. Drug Cut-Off Concentration: AMPH 1000 ng/mL DANTE 200 ng/mL DONTA 200 ng/mL COCM 300 ng/mL OP 300 ng/mL PCP 25 ng/mL Protein Auto test strip (U) [Mass/Vol]Ordered By: PRESLEY TIMMONS on 09-11-2021 Protein (U) [Mass/Vol] Negative Negative [facility] RPR w/rfx to Quant TP Abson 09-11-2021 RPR, Rfx Quant RPR Non-Reactive Normal Non Reactive [facility] Comment on above: Result Comment: Perf ormed at: CB - [facility] [place] [id number] Site Superintendent: Surya Hazel PhD, Phone: [phone] PERFORMED BY: [place] [address] PATHOLOGIST [employer] SANDY PEREZ M.D. Performed By: #### R IA W RFX #### [facility] , #### CBC #### [facility] [address] [place] [address] Reagin Ab [Presence] in Seru m by RPROrdered By: PRESLEY TIMMONS on 09-11-2021 Reagin Ab RPR Ql (S) Non-Reactive Non Reactive [place] Comment on above: Performed at: CB - [facility] [place] [id number] Site Superintendent: Surya Hazel PhD, Phone: [phone] Dara Ag Negativeon 09-12-19 Dara Ag Negative Negative Normal Negative [facility] Comment on above: Result Comment: This is a duplicate Dara SARS Antigen (IVET) result to be used for statistical tracking purpose only. PERFORMED BY: [place] [address] PATHOLOGIST [employer] SANDY PEREZ M.D. Performed By: #### C OVID-19 KRAEN BUCHANANEG #### [facility] [address] [place] [address] Trichomonas vaginalis DNA [P resence] in Specimen by EMMA with probe detectionOrdered By: PRESLEY TIMMONS on 09-11-2021 T. vaginalis DNA EMMA+probe Ql (Unsp spec) Negative Negative [place] Comment on above: Performed at: =[address] [id number] Site Superintendent: Glory Schaffer MD, Phone: [phone] Urinalysison 09-11-2021 Appearance (U) Clear Normal Clear [place] Comment on above: Order Comment: Name Collection Type:: Voided Performed By: #### U A, OBUDS #### [place] [address] [place] Bilirubin,Urine Negative Normal Negative [place] Comment on above: Order Comment: Name Collection Type:: Voided Performed By: #### U A, OBUDS #### [address] Color (U) Yellow Normal Yellow [place] Comment on above: Order Comment: Name Collection Type:: Voided Performed By: #### U A, OBUDS #### [place] [address] [place] Glucose Ql (U) Normal Normal Normal [place] Comment on above: Order Comment: Name Collection Type:: Voided Performed By: #### U A, OBUDS #### [place] [address] [place] Ketones Ql (U) Negative Normal Negative [place] Comment on above: Order Comment: Name Collection Type:: Voided Performed By: #### U A, OBUDS #### [place] [address] [place] Leukocyte esterase Test strip Ql (U) Negative Normal Negative [place] Comment on above: Order Comment: Name Collection Type:: Voided Performed By: #### U A, OBUDS #### [address] Nitrite,Urine Negative Normal Negative [place] Comment on above: Order Comment: Name Collection Type:: Voided Performed By: #### U A, OBUDS #### [address] Occult Blood,Urine Negative Normal Negative [facility] Comment on above: Order Comment: Name Collection Type:: Voided Result Comment: PERF ORMED BY: [place] [address] PATHOLOGIST [employer] SANDY PEREZ M.D. Performed By: #### U A, OBUDS #### [address] pH (U) 6.0 [pH] Normal 5.0-9.0 [place] Comment on above: Order Comment: Name Collection Type:: Voided Performed By: #### U A, OBUDS #### [address] Protein,Urine Negative Normal Negative [place] Comment on above: Order Comment: Name Collection Type:: Voided Performed By: #### U A, OBUDS #### [address] Specificy [place],Urine 1.015 Normal 1.001-1.030 [place] Comment on above: Order Comment: Name Collection Type:: Voided Performed By: #### U A, OBUDS #### [address] Urobilinogen,Urine Normal Normal Normal [facility] Comment on above: Order Comment: Name Collection Type:: Voided Performed By: #### U A, OBUDS #### [address] Urine appearanceOrdered By: PRESLEY TIMMONS on 09-11-2021 Appearance (U) Clear Clear [place] Urine cocaine detectionOrder ed By: PRESLEY TIMMONS on 09-11-2021 Cocaine Ql (U) Negative Negative [place] Urine colorOrdered By: PRESLEY TIMMONS on 09-11-2021 Color (U) Yellow Yellow [place] Urine glucose measurement by automated test strip (mass/volume)Ordered By: PRESLEY TIMMONS on 09-11-2021 Glucose Auto test strip (U) [Mass/Vol] Normal mg/dL Normal [place] Urine hemoglobin detection b y automated test stripOrdered By: PRESLEY TIMMONS on 09-11-2021 Hemoglobin Auto test strip Ql (U) Negative Negative [place] Urine leukocyte esterase det ection by automated test stripOrdered By: PRESLEY TIMMONS on 09-11-2021 Leukocyte esterase Auto test strip Ql (U) Negative Negative [place] Urine nitrite detection by a utomated test stripOrdered By: PRESLEY TIMMONS on 09-11-2021 Nitrite Auto test strip Ql (U) Negative Negative [place] Urobilinogen Auto test strip (U) [Mass/Vol]Ordered By: PRESLEY TIMMONS on 09-11-2021 Urobilinogen (U) [Mass/Vol] Normal mg/dL Normal [place] pH Auto test strip (U)Ordere d By: PRESLEY TIMMONS on 09-11-2021 pH (U) 1.015 [pH] 1.001-1.030 [place] pH (U) 6.0 [pH] 5.0-9.0 [place] CHEMISTRYOrdered By: SYSTEM SYSTEM on 07-02-2021 Glucose 3 Hr post 75 g glucose PO [Mass/Vol] 59 mg/dL Normal 55 - 140 mg/dL [facility] Remisol Glucose 2 Hr post 75 g glucose PO [Mass/Vol] 100 mg/dL Normal 55 - 155 mg/dL [facility] Remisol Glucose 1 Hr post 75 g glucose PO [Mass/Vol] 169 mg/dL Normal 55 - 180 mg/dL [facility] Remisol Glucose post fast [Mass/Vol] 94 mg/dL Normal 55 - 99 mg/dL [facility] Remisol CHEMISTRYOrdered By: Lab ROP User on 07-02-2021 Glucose [Mass/Vol] 89 mg/dL Normal 55 - 99 mg/dL [facility] POC Subsection POC Device SN [id number] Invalid Interpretation Code [facility] POC Subsection POC User ID [id number] Invalid Interpretation Code [facility] POC Subsection POC Username [email or web address] Invalid Interpretation Code [facility] POC Subsection URINALYSISOrdered By: Binh Gilliam on 06-13-2021 Bacteria LM Ql (Urine sed) 2+ /HPF Invalid Interpretation Code Trace/HPF [facility] U[facility] Auto SS Bilirubin Ql (U) Negative (06/13/21 10:00 AM) Normal Negative [facility] UA Auto SS Clarity (U) Clear (06/13/21 10:00 AM) Normal Clear [facility] UA Auto SS Color (U) Yellow (06/13/21 10:00 AM) Normal Yellow [facility] UA Auto SS Epithelial cells.squamous LM.HPF (Urine sed) [#/Area] 5-8 /HPF Normal 0-2/HPF [facility] UA Aut o SS Glucose Test strip (U) [Mass/Vol] Negative (06/13/21 10:00 AM) Normal Negative [facility] UA Auto SS Hemoglobin Ql (U) Negative (06/13/21 10:00 AM) Normal Negative [facility] Auto SS Ketones (U) [Mass/Vol] Negative (06/13/21 10:00 AM) Normal Negative [facility] Auto SS [place].plasma/[place]. RBC (Bld) [Mass ratio] 0-3 /HPF Normal 0-3/HPF [facility] UA A uto SS Mucus Ql (Urine sed) 3+ (06/13/21 10:00 AM) Normal [facility] UA Auto SS Nitrite Ql (U) Negative (06/13/21 10:00 AM) Normal Negative [facility] UA Auto SS pH (U) 6.5 *NA* (06/13/21 10:00 AM) Invalid Interpretation Code 5.0 - 9.0 [facility] Auto SS Protein (U) [Mass/Vol] Negative (06/13/21 10:00 AM) Normal Negative [facility] UA Auto SS Specific gravity (U) [Rel density] 1.015 *NA* (06/13/21 10:00 AM) Invalid Interpretation Code 1.005 - 1.030 [facility] Auto SS UA Spec Desc Random Urine (06/13/21 10:00 AM) Normal [facility] UA Auto SS Urobilinogen Qn (U) [id number] {Juma'U}/dL Normal 0.0 - 1.0 EU/dL [facility] Auto SS WBC Auto Ql (U) Negative (06/13/21 10:00 AM) Normal Negative [facility] UA Auto SS WBC LM.HPF (Urine sed) [#/Area] 0-5 /HPF Normal 0-5/HPF [facility] UA Auto SS CHEMISTRYOrdered By: SYSTEM SYSTEM [...] 3.8 g/dL Normal 1.4 - 4.0 gm/dL [facility] Remisol Glucose [Mass/Vol] 105 mg/dL Normal 55 - 199 mg/dL [facility] Remisol Lipase [Catalytic activity/Vol] 28 U/L Normal [...] 8.0 E9/L High 2.0 - 7.5 E9/L [facility] HemeAutoSS HEMATOLOGYOrdered By: Leigh Ann Paulson on 06-04-2021 Erythrocyte distribution width (RBC) [Ratio] 13.7 % Normal 10.9 - 14.2 % [facility] Hematocrit (Bld) [Volume fraction] 36.4 % Normal 34.0 - 46.0 % [facility]eAuto[facility] Hemoglobin (Bld) [Mass/Vol] 12.6 g/dL Normal 12.0 - 16.0 gm/dL [facility] MCH (RBC) [Entitic mass] 29.3 pg Normal 27.0 - 34.0 pg [facility] HemeAutoSS MCHC (RBC) [Mass/Vol] 34.6 g/dL Normal 31.4 - 36.0 gm/dL [facility] MCV (RBC) [Entitic vol] 84.9 fL [...] 10.4 E9/L Normal 4.0 - 11.0 E9/L [facility] HemeAutoSS CHEMISTRYOrdered By: SYSTEM SYSTEM on 05-30-2021 Glucose 1 Hr post 75 g glucose PO [Mass/Vol] 199 mg/dL High 55 - 180 mg/dL [facility] Remisol HEMATOLOGYOrdered By: Minna King on 05-30-2021 Hematocrit (Bld) [Volume fraction] 35.0 % Normal 34.0 - 46.0 % [facility] HemeAutoSS Hemoglobin (Bld) [Mass/Vol] 12.3 g/dL Normal 12.0 - 16.0 gm/dL [facility] HemeAutoSS CBC AUTO DIFFon 02-11-2021 BASO # 0.1 103/ul Normal 0.0-0.1 [facility] Comment on above: Performed By: #### C BC #### [facility] [address] [address] [address] Shola Randolph Basophils/100 WBC (Bld) 0.4 % Normal 0.2-2.0 [facility] Comment on above: Performed By: #### C BC #### [facility] [address] [address] [address] Shola Randolph EO # 0.5 103/ul Normal 0.0-0.7 [facility] Comment on above: Performed By: #### C BC #### [facility] [address] [address] [address] Shola Randolph Eosinophils/100 WBC (Bld) 3.9 % Normal 0.9-7.0 [facility] Comment on above: Performed By: #### C BC #### [facility] [address] [place] [address] Dr. Shola Randolph Erythrocyte distribution width (RBC) [Ratio] 13.3 % Normal 11.0-15.0 [facility] Comment on above: Performed By: #### C BC #### [facility] [address] [address] [address] Shola Randolph Hematocrit (Bld) [Volume fraction] 42.0 % Normal 36.0-48.0 [facility] Comment on above: Performed By: #### C BC #### [facility] [address] [place] [address] Dr. Shola Randolph Hemoglobin (Bld) [Mass/Vol] 13.9 g/dL Normal 12.0-16.0 [facility] Comment on above: Performed By: #### C BC #### [facility] [address] [address] [address] Shola Randolph IG # 0.04 10e3/ul Critically high 0.00-0.03 [facility] Comment on above: Performed By: #### C BC #### [facility] [address] [address] [address] Shola Randolph IG % 0.3 % Normal 0.0-0.5 [facility] Comment on above: Performed By: #### C BC #### [facility] [address] [address] [address] Shola Randolph LYMPH # 2.5 103/ul Normal 1.2-3.8 [facility] Comment on above: Performed By: #### C BC #### [facility] [address] [place] [address] Dr. Shola Randolph Lymphocytes/100 WBC (Bld) 20.2 % Critically low 20.5-60.0 [facility] Comment on above: Performed By: #### C BC #### [facility] [address] [place] [address] Dr. Shola Randolph MANUAL DIFF REQ NO Normal [facility] Comment on above: Performed By: #### C BC #### [facility] [address] [place] [address] Dr. Shola Randolph MCH (RBC) [Entitic mass] 28.7 pg Normal 26.7-34.0 [facility] Comment on above: Performed By: #### C BC #### [facility] [address] [place] [address] Dr. Shola Randolph MCHC (RBC) [Mass/Vol] 33.1 g/dL Normal 29.9-35.2 [facility] Comment on above: Performed By: #### C BC #### [facility] [address] [place] [address] Dr. Shola Randolph MCV (RBC) [Entitic vol] 86.6 fL Normal 81.0-99.0 [facility] Comment on above: Performed By: #### C BC #### [facility] [address] [place] [address] Dr. Shola Randolph MONO # 0.8 103/ul Normal 0.3-0.8 [facility] Comment on above: Performed By: #### C BC #### [facility] [address] [place] [address] Dr. Shola Randolph Monocytes/100 WBC (Bld) 6.5 % Normal 1.7-12.0 [facility] Comment on above: Performed By: #### C BC #### [facility] [address] [address] [address] Shola Randolph NEUT # 8.5 103/ul Critically high 1.4-6.5 [facility] Comment on above: Performed By: #### C BC #### [facility] [address] [address] [address] Shola Randolph Neutrophils/100 WBC (Bld) 68.7 % Normal 43.0-75.0 [facility] Comment on above: Performed By: #### C BC #### [facility] [address] [address] [address] Shola Randolph Platelet mean volume (Bld) [Entitic vol] 8.4 fL Critically low 9.5-13.5 [facility] Comment on above: Performed By: #### C BC #### [facility] [address] [place] [address] Dr. Shola Randolph PLT 246 103/ul Normal 150-450 [facility] Comment on above: Performed By: #### C BC #### [facility] [address] [place] [address] Dr. Shola Randolph RBC 4.85 106/ul Normal 4.20-5.40 [facility] Comment on above: Performed By: #### C BC #### [facility] [address] [place] [address] Dr. Shola Randolph WBC 12.4 103/ul Critically high 4.0-11.0 [facility] Comment on above: Performed By: #### C BC #### [facility] [address] [place] [address] Dr. Shola Randolph PROF 14(COMP METB)on 021 Albumin [Mass/Vol] 3.3 g/dL Critically low 3.5-5.0 [facility] Comment on above: Performed By: #### C MP #### [facility] [address] [place] [address] Dr. Shola Randolph Albumin/Globulin [Mass ratio] 0.8 {ratio} Normal [facility] Comment on above: Performed By: #### C MP #### [facility] [address] [place] [address] Dr. Shola Randolph ALP [Catalytic activity/Vol] 76 U/L Normal 38-126 [facility] Comment on above: Performed By: #### C MP #### [facility] [address] [address] [address] Shola Randolph ALT [Catalytic activity/Vol] 25 U/L Normal 9-52 [facility] Comment on above: Performed By: #### C MP #### [facility] [address] [place] [address] Dr. Shola Randolph Anion gap [Moles/Vol] 12.4 mmol/L Normal [facility] Comment on above: Performed By: #### C MP #### [facility] [address] [place] [address] Dr. Shola Randolph AST [Catalytic activity/Vol] 15 U/L Normal 14-36 [facility] Comment on above: Performed By: #### C MP #### [facility] [address] [place] [address] Dr. Shola Randolph Bilirubin [Mass/Vol] 0.3 mg/dL Normal 0.2-1.3 [facility] Comment on above: Performed By: #### C MP #### [facility] [address] [place] [address] Dr. Shola Randolph Calcium [Mass/Vol] 8.8 mg/dL Normal 8.4-10.2 [facility] Comment on above: Performed By: #### C MP #### [facility] [address] [place] [address] Dr. Shola Randolph Chloride [Moles/Vol] 102 mmol/L Normal 98-107 [facility] Comment on above: Performed By: #### C MP #### [facility] [address] [place] [address] Dr. Shola Randolph CO2 [Moles/Vol] 25.5 mmol/L Normal 22.0-30.0 [facility] Comment on above: Performed By: #### C MP #### [facility] [address] [place] [address] Dr. Shola Randolph Creatinine [Mass/Vol] 0.81 mg/dL Normal 0.52-1.04 [facility] Comment on above: Performed By: #### C MP #### [facility] [address] [address] [address] Shola Randolph EGFR-AF CAMEROONIAN >60 Normal >=60 [facility] Comment on above: Performed By: #### C MP #### [facility] [address] [address] [address] Shola Randolph EGFR-NON AF CAMEROONIAN >60 Normal >=60 [facility] Comment on above: Performed By: #### C MP #### [facility] [address] [place] [address] Dr. Shola Randolph Globulin (S) [Mass/Vol] 4.4 g/dL Normal T [facility] Comment on above: Performed By: #### C MP #### [facility] [address] [place] [address] Dr. Shola Randolph Glucose [Mass/Vol] 88 mg/dL Normal 74-106 [facility] Comment on above: Performed By: #### C MP #### [facility] [address] [place] [address] Dr. Shola Randolph Potassium [Moles/Vol] 3.9 mmol/L Normal 3.4-5.0 [facility] Comment on above: Performed By: #### C MP #### [facility] [address] [place] [address] Dr. Shola Randolph Protein [Mass/Vol] 7.7 g/dL Normal 6.1-8.2 [facility] Comment on above: Performed By: #### C MP #### [facility] [address] [address] [address] Shola Randolph Sodium [Moles/Vol] 136 mmol/L Critically low 137-145 [facility] Comment on above: Performed By: #### C MP #### [facility] [address] [place] [address] Dr. Shola Randolph Urea nitrogen [Mass/Vol] 9.0 mg/dL Normal 7.0-17.0 [facility] Comment on above: Performed By: #### C MP #### [facility] [address] [place], [place] [address] Dr. Shola Randolph Urea nitrogen/Creatinine [Mass ratio] 11.1 mg/mg Normal [facility] Comment on above: Performed By: #### C MP #### [facility] [address] [place], [place] [address] Dr. Shola Randolph Vital Signs Date Time Vital Sign Value Performing Clinician Facility 10-08-2024 15:05-0400 Body mass index (BMI) [Ratio] 49.33 kg/m2 Zack Angel DO Work Phone: [facility] 10-08-2024 15:05-0400 Body weight 130.36 kg Zack Angel DO Work Phone: [facility] 10-08-2024 15:05-0400 Diastolic blood pressure 100 mm[Hg] Zack Angel DO Work Phone: [facility] 10-08-2024 15:05-0400 Systolic blood pressure 142 mm[Hg] Zack Angel DO Work Phone: [facility] 10-03-2024 14:26-0400 Body mass index (BMI) [Ratio] 50.98 kg/m2 Zack Angel DO Work Phone: [facility] 10-03-2024 14:26-0400 Body weight 134.72 kg Zack Angel DO Work Phone: [facility] 10-03-2024 14:26-0400 Diastolic blood pressure 100 mm[Hg] Zack Angel DO Work Phone: [facility] 10-03-2024 14:26-0400 Systolic blood pressure 154 mm[Hg] Zack Angel DO Work Phone: [facility] 09-17-2024 13:18-0400 Body mass index (BMI) [Ratio] 50.64 kg/m2 Gwne SAAVEDRA Work Phone: [facility] 09-17-2024 13:18-0400 Body weight 133.81 kg Gwen Mccormick KERI Work Phone: [facility] 09-17-2024 13:18-0400 Diastolic blood pressure 70 mm[Hg] Gwen Mccormick PA Work Phone: [facility] 09-17-2024 13:18-0400 Systolic blood pressure 118 mm[Hg] Gwen Mccormick PA Work Phone: [facility] 08-21-2024 09:16-0400 Body temperature 97.5 [degF] Yixue Virk DDS Work Phone: [facility] 08-21-2024 09:16-0400 Diastolic blood pressure 90 mm[Hg] Yixue Virk DDS Work Phone: [facility] 08-21-2024 09:16-0400 Heart rate 86 /min Yixue Virk DDS Work Phone: [facility] 08-21-2024 09:16-0400 Systolic blood pressure 134 mm[Hg] Yixue Virk DDS Work Phone: [facility] 08-20-2024 14:57-0400 Body mass index (BMI) [Ratio] 48.58 kg/m2 Zack Angel DO Work Phone: [facility] 08-20-2024 14:57-0400 Body weight 128.37 kg Zack Angel DO Work Phone: [facility] 08-20-2024 14:57-0400 Diastolic blood pressure 74 mm[Hg] Zack Angel DO Work Phone: [facility] 08-20-2024 14:57-0400 Systolic blood pressure 122 mm[Hg] Zack Angel DO Work Phone: [facility] 08-15-2024 12:56-0400 Body temperature 98.1 [degF] Yixue Virk DDS Work Phone: [facility] 08-15-2024 12:56-0400 Diastolic blood pressure 96 mm[Hg] Bishnu Virk DDS Work Phone: [facility] 08-15-2024 12:56-0400 Heart rate 79 /min Bishnu Virk DDS Work Phone: [facility] 08-15-2024 12:56-0400 Systolic blood pressure 138 mm[Hg] Bishnu Virk DDS Work Phone: [facility] 07-23-2024 15:23-0400 Body mass index (BMI) [Ratio] 47.38 kg/m2 Gwen Anny PA Work Phone: [facility] 07-23-2024 15:23-0400 Body weight 125.19 kg Gwen Anny PA Work Phone: [facility] 07-23-2024 15:23-0400 Diastolic blood pressure 78 mm[Hg] Gwen Middleton PA Work Phone: [facility] 07-23-2024 15:23-0400 Systolic blood pressure 124 mm[Hg] Gwen Anny PA Work Phone: [facility] 04-18-2024 14:08-0500 Diastolic blood pressure 96 mm[Hg] [facility] 04-18-2024 14:08-0500 Heart rate 85 /min [facility] 04-18-2024 14:08-0500 Respiratory rate 20 /min [facility] 04-18-2024 14:08-0500 SaO2% (BldA) [Mass fraction] 99 % [facility] 04-18-2024 14:08-0500 Systolic blood pressure 136 mm[Hg] [facility] 04-18-2024 11:41-0500 Body temperature 98.06 [degF] [facility] 04-18-2024 11:41-0500 Diastolic blood pressure 94 mm[Hg] [facility] 03-05-2025 11:41-0500 Heart rate 106 /min [facility] 04-18-2024 11:41-0500 Respiratory rate 22 /min [facility] 04-18-2024 11:41-0500 SaO2% (BldA) [Mass fraction] 98 % [facility] 04-18-2024 11:41-0500 Systolic blood pressure 144 mm[Hg] [facility] 10-10-2023 10:13-0400 Blood Pressure Location REY ALAS [facility] 10-10-2023 10:13-0400 Body temperature 98.06 [degF] REY ALAS [facility] 10-10-2023 10:13-0400 Diastolic blood pressure 74 mm[Hg] REY ALAS [facility] 10-10-2023 10:13-0400 Heart rate 80 /min REY ALAS [facility] 10-10-2023 10:13-0400 Respiratory rate 15 /min REY ALAS [facility] 10-10-2023 10:13-0400 SaO2% (BldA) [Mass fraction] 98 % REY ALAS [facility] 10-10-2023 10:13-0400 Systolic blood pressure 122 mm[Hg] REY ALAS [facility] 07-08-2023 13:59-0400 Heart rate 107 /min Jagdish Dunn [facility] 07-08-2023 13:59-0400 Respiratory rate 14 /min Jagdish Dunn [facility] 07-08-2023 13:59-0400 SaO2% (BldA) [Mass fraction] 98 % Jagdish Dunn [facility] 07-08-2023 12:49-0400 Body temperature 97.7 [degF] Jagdish Dunn [facility] 07-08-2023 12:49-0400 Diastolic blood pressure 94 mm[Hg] Jagdish Dunn [facility] 07-08-2023 12:49-0400 Heart rate 120 /min Jagdish Dunn [facility] 07-08-2023 12:49-0400 Respiratory rate 15 /min Jagdish Dunn [facility] 07-08-2023 12:49-0400 SaO2% (BldA) [Mass fraction] 97 % Jagdish Dunn [facility] 07-08-2023 12:49-0400 Systolic blood pressure 134 mm[Hg] Jagdish Dunn [facility] 07-06-2023 08:45-0400 Blood Pressure Location REY ALAS [facility] 07-06-2023 08:45-0400 Diastolic blood pressure 86 mm[Hg] REY ALAS [facility] 07-06-2023 08:45-0400 Heart rate 78 /min REY ALAS [facility] 07-06-2023 08:45-0400 SaO2% (BldA) [Mass fraction] 99 % REY ALAS [facility] 07-06-2023 08:45-0400 Systolic blood pressure 126 mm[Hg] REYTyra ALAS [facility] 01-11-2023 19:48-0500 Diastolic blood pressure 96 mm[Hg] Jagdish Shaun [facility] 01-11-2023 19:48-0500 Heart rate 84 /min Jagdish Shaun [facility] 01-11-2023 19:48-0500 Mean blood pressure 108 mm[Hg] Jagdish Shaun [facility] 01-11-2023 19:48-0500 Respiratory rate 13 /min Jagdish Shaun [facility] 01-11-2023 19:48-0500 SaO2% (BldA) [Mass fraction] 97 % Jagdish Shaun [facility] 01-11-2023 19:48-0500 Systolic blood pressure 131 mm[Hg] Jagdish Shaun [facility] 01-11-2023 19:30-0500 Heart rate 85 /min Jagdish Shaun [facility] 01-11-2023 19:30-0500 Respiratory rate 17 /min Jagdish Shaun [facility] 01-11-2023 19:30-0500 SaO2% (BldA) [Mass fraction] 97 % Jagdish Shaun [facility] 01-11-2023 19:00-0500 Diastolic blood pressure 95 mm[Hg] Jagdish Shaun [facility] 01-11-2023 19:00-0500 Heart rate 87 /min Jagdish Shaun [facility] 01-11-2023 19:00-0500 Mean blood pressure 107 mm[Hg] Jagdish Shaun [facility] 01-11-2023 19:00-0500 Respiratory rate 11 /min Jagdish Dunn [facility] 01-11-2023 18:00-0500 Diastolic blood pressure 94 mm[Hg] Jagdish Dunn [facility] 01-11-2023 18:00-0500 Systolic blood pressure 135 mm[Hg] Jagdish Dunn [facility] 01-11-2023 16:10-0500 Body temperature 98.06 [degF] Jagdish Dunn [facility] 01-11-2023 16:10-0500 Heart rate 110 /min Jagdish Dunn [facility] 01-11-2023 16:10-0500 Respiratory rate 18 /min [facility] 01-08-2023 14:21-0500 Body temperature 98.6 [degF] [facility] 01-08-2023 14:21-0500 Diastolic blood pressure 75 mm[Hg] [facility] 01-08-2023 14:21-0500 Heart rate 76 /min [facility] 01-08-2023 14:21-0500 Respiratory rate 18 /min [facility] 01-08-2023 14:21-0500 SaO2% (BldA) [Mass fraction] 97 % [facility] 01-08-2023 14:21-0500 Systolic blood pressure 116 mm[Hg] [facility] 01-08-2023 12:45-0500 Body temperature 98.24 [degF] [facility] 01-08-2023 12:45-0500 Diastolic blood pressure 79 mm[Hg] [facility] 01-08-2023 12:45-0500 Heart rate 110 /min [facility] 01-08-2023 12:45-0500 Respiratory rate 24 /min [facility] 01-08-2023 12:45-0500 SaO2% (BldA) [Mass fraction] 100 % [facility] 01-08-2023 12:45-0500 Systolic blood pressure 117 mm[Hg] [facility] 01-06-2023 16:45-0500 Diastolic blood pressure 87 mm[Hg] [facility] 01-06-2023 16:45-0500 Heart rate 98 /min [facility] 01-06-2023 16:45-0500 Mean blood pressure 97 mm[Hg] [facility] 01-06-2023 16:45-0500 Respiratory rate 20 /min [facility] 01-06-2023 16:45-0500 SaO2% (BldA) [Mass fraction] 97 % [facility] 01-06-2023 16:45-0500 Systolic blood pressure 118 mm[Hg] [facility] 01-06-2023 16:15-0500 Diastolic blood pressure 85 mm[Hg] [facility] 01-06-2023 16:15-0500 Heart rate 98 /min [facility] 01-06-2023 16:15-0500 Mean blood pressure 99 mm[Hg] [facility] 01-06-2023 16:15-0500 Respiratory rate 18 /min [facility] 01-06-2023 16:15-0500 SaO2% (BldA) [Mass fraction] 96 % Jesus Sheetse [facility] 01-06-2023 16:15-0500 Systolic blood pressure 127 mm[Hg] [facility] Sheetse [facility] 01-06-2023 15:45-0500 Diastolic blood pressure 87 mm[Hg] Jesus Sheetse [facility] 01-06-2023 15:45-0500 Heart rate 98 /min [facility] Sheetse [facility] 01-06-2023 15:45-0500 Mean blood pressure 102 mm[Hg] [facility] Sheetse [facility] 01-06-2023 15:45-0500 Respiratory rate 18 /min [facility] Sheetse [facility] 01-06-2023 15:45-0500 SaO2% (BldA) [Mass fraction] 97 % Jesus Sheetse [facility] 01-06-2023 15:45-0500 Systolic blood pressure 131 mm[Hg] [facility] Sheetse [facility] 01-06-2023 15:15-0500 Heart rate 114 /min Jesus Sheetse [facility] 01-06-2023 14:48-0500 Body temperature 102.02 [degF] Jesus Sheetse [facility] 01-06-2023 14:48-0500 Heart rate 115 /min Jesus Sheetse [facility] 10-17-2022 17:02-0400 Diastolic blood pressure 69 mm[Hg] [facility] 10-17-2022 17:02-0400 Heart rate 66 /min [facility] 10-17-2022 17:02-0400 Mean blood pressure 79 mm[Hg] [facility]dish Shaun [facility] 10-17-2022 17:02-0400 Respiratory rate 18 /min Jagdish Shaun [facility] 10-17-2022 17:02-0400 SaO2% (BldA) [Mass fraction] 98 % Jagdish Shaun [facility] 10-17-2022 17:02-0400 Systolic blood pressure 100 mm[Hg] [facility] Shaun [facility] 10-17-2022 16:43-0400 Hourly Rounding [facility] 10-17-2022 16:43-0400 Promise to Return [facility] 10-17-2022 16:42-0400 Diastolic blood pressure 65 mm[Hg] [facility] Sha[facility] 10-17-2022 16:42-0400 Heart rate 62 /min Jagdish Shaun [facility] 10-17-2022 16:42-0400 Mean blood pressure 80 mm[Hg] [facility] Shaun [facility] 10-17-2022 16:42-0400 Respiratory rate 18 /min [facility] Shaun [facility] 10-17-2022 16:42-0400 SaO2% (BldA) [Mass fraction] 99 % [facility] Shaun [facility] 10-17-2022 16:42-0400 Systolic blood pressure 111 mm[Hg] [facility] Sha[facility] 10-17-2022 15:43-0400 Diastolic blood pressure 69 mm[Hg] [facility] 10-17-2022 15:43-0400 Heart rate 68 /min [facility] Sha[facility] 10-17-2022 15:43-0400 Hourly Rounding [facility] 10-17-2022 15:43-0400 Mean blood pressure 83 mm[Hg] [facility] Sha[facility] 10-17-2022 15:43-0400 Promise to Return [facility] Shaun [facility] 10-17-2022 15:43-0400 Respiratory rate 18 /min [facility] Sha[facility] 10-17-2022 15:43-0400 SaO2% (BldA) [Mass fraction] 100 % [facility] 10-17-2022 15:43-0400 Systolic blood pressure 111 mm[Hg] [facility] Sha[facility] 10-17-2022 14:49-0400 Hourly Rounding [facility] Sha[facility] 10-17-2022 14:49-0400 Promise to Return Jagdish Shaun [facility] 10-17-2022 13:04-0400 Body temperature 98.06 [degF] [facility] 10-17-2022 13:04-0400 Heart rate 93 /min [facility] Sha[facility] 02-17-2022 21:00-0500 Diastolic blood pressure 91 mm[Hg] [facility] 02-17-2022 21:00-0500 Heart rate 86 /min [facility] Sha[facility] 02-17-2022 21:00-0500 Mean blood pressure 106 mm[Hg] [facility] 02-17-2022 21:00-0500 Respiratory rate 20 /min [facility] Sha[facility] 02-17-2022 21:00-0500 SaO2% (BldA) [Mass fraction] 98 % [facility] Sha[facility] 02-17-2022 21:00-0500 Systolic blood pressure 136 mm[Hg] [facility] Sha[facility] 02-17-2022 20:00-0500 Diastolic blood pressure 81 mm[Hg] [facility] 02-17-2022 20:00-0500 Heart rate 91 /min [facility] Sha[facility] 02-17-2022 20:00-0500 Mean blood pressure 96 mm[Hg] [facility] 02-17-2022 20:00-0500 Respiratory rate 16 /min [facility] Sha[facility] 02-17-2022 20:00-0500 Systolic blood pressure 125 mm[Hg] [facility] 02-17-2022 19:44-0500 Diastolic blood pressure 98 mm[Hg] [facility] 02-17-2022 19:44-0500 Heart rate 99 /min [facility] Sha[facility] 02-17-2022 19:44-0500 Mean blood pressure 112 mm[Hg] [facility] Sha[facility] 02-17-2022 19:44-0500 Respiratory rate 19 /min [facility] 02-17-2022 19:44-0500 SaO2% (BldA) [Mass fraction] 97 % [facility] 02-17-2022 19:44-0500 Systolic blood pressure 140 mm[Hg] [facility] 02-17-2022 16:14-0500 Body temperature 98.96 [degF] [facility] 02-17-2022 16:14-0500 Heart rate 112 /min [facility] 11-10-2021 12:13-0400 Body temperature 97.88 [degF] [facility] A[facility] 11-10-2021 12:13-0400 Diastolic blood pressure 88 mm[Hg] [facility] A[facility] 11-10-2021 12:13-0400 Heart rate 93 /min [facility] A[facility] 11-10-2021 12:13-0400 Respiratory rate 16 /min [facility] A[facility] 11-10-2021 12:13-0400 SaO2% (BldA) [Mass fraction] 99 % [facility] A[facility] 11-10-2021 12:13-0400 Systolic blood pressure 128 mm[Hg] Jesus Sheetse [facility] 09-14-2021 16:00-0400 Diastolic blood pressure 98 mm[Hg] PHYSICIAN [facility] 09-14-2021 16:00-0400 Heart rate 106 /min PHYSICIAN [facility] 09-14-2021 16:00-0400 Respiratory rate 16 /min PHYSICIAN NO [facility] 09-14-2021 16:00-0400 SaO2% (BldA) [Mass fraction] 97 % PHYSICIAN NO [facility] 09-14-2021 16:00-0400 Systolic blood pressure 138 mm[Hg] PHYSICIAN NO [facility] 09-14-2021 08:00-0400 Body temperature 97.3 [degF] PHYSICIAN NO [facility] 09-11-2021 21:30-0400 Body height 165.1 cm PHYSICIAN NO [facility] 09-11-2021 21:30-0400 Body weight 111.13 kg PHYSICIAN NO [facility] 07-17-2021 11:18-0400 Diastolic blood pressure 80 mm[Hg] [facility] 07-17-2021 11:18-0400 Heart rate 82 /min [facility] 07-17-2021 11:18-0400 Respiratory rate 82 /min [facility] 07-17-2021 11:18-0400 SaO2% (BldA) [Mass fraction] 99 % [facility] 07-17-2021 11:18-0400 Systolic blood pressure 131 mm[Hg] [facility] 07-17-2021 09:28-0400 Body temperature 97.88 [degF] [facility] 07-17-2021 09:28-0400 Diastolic blood pressure 98 mm[Hg] [facility] 07-17-2021 09:28-0400 Heart rate 85 /min [facility] 07-17-2021 09:28-0400 Respiratory rate 18 /min [facility] 07-17-2021 09:28-0400 SaO2% (BldA) [Mass fraction] 98 % [facility] 07-17-2021 09:28-0400 Systolic blood pressure 145 mm[Hg] [facility] 06-13-2021 12:30-0400 Hourly Rounding [facility] Comment on above: Result Comment: Pt eats her entire lunch without nausea; states the protonix took her nausea away. 06-13-2021 10:45-0400 Blood Pressure Location [facility] Foot[facility] 06-13-2021 10:45-0400 Diastolic blood pressure 77 mm[Hg] [facility] 06-13-2021 10:45-0400 Heart rate 81 /min [facility] 06-13-2021 10:45-0400 Mean blood pressure 92 mm[Hg] [facility] 06-13-2021 10:45-0400 Respiratory rate 20 /min [facility] 06-13-2021 10:45-0400 Systolic blood pressure 122 mm[Hg] Un[facility] Qamar [facility] 06-13-2021 10:06-0400 Body temperature 98.06 [degF] [facility] Q[facility] 06-13-2021 10:06-0400 Diastolic blood pressure 79 mm[Hg] [facility] Q[facility] 06-13-2021 10:06-0400 Heart rate 83 /min Una Qamar [facility] 06-13-2021 10:06-0400 Mean blood pressure 96 mm[Hg] [facility] 06-13-2021 10:06-0400 Respiratory rate 20 /min [facility] 06-13-2021 10:06-0400 Systolic blood pressure 131 mm[Hg] [facility] 06-13-2021 10:00-0400 Blood Pressure Location [facility] 06-04-2021 16:17-0400 Diastolic blood pressure 77 mm[Hg] [facility] 06-04-2021 16:17-0400 Heart rate 92 /min [facility] 06-04-2021 16:17-0400 Mean blood pressure 90 mm[Hg] [facility] 06-04-2021 16:17-0400 Respiratory rate 15 /min [facility] 06-04-2021 16:17-0400 SaO2% (BldA) [Mass fraction] 97 % [facility] 06-04-2021 16:17-0400 Systolic blood pressure 117 mm[Hg] [facility] 06-04-2021 15:07-0400 Diastolic blood pressure 86 mm[Hg] [facility] 06-04-2021 15:07-0400 Heart rate 99 /min [facility] 06-04-2021 15:07-0400 Mean blood pressure 106 mm[Hg] [facility] 06-04-2021 15:07-0400 Respiratory rate 17 /min [facility] 06-04-2021 15:07-0400 SaO2% (BldA) [Mass fraction] 100 % [facility] 06-04-2021 15:07-0400 Systolic blood pressure 146 mm[Hg] [facility] 06-04-2021 14:34-0400 Body temperature 98.6 [degF] [facility] 06-04-2021 14:34-0400 Diastolic blood pressure 87 mm[Hg] [facility] 06-04-2021 14:34-0400 Heart rate 105 /min [facility] 06-04-2021 14:34-0400 Mean blood pressure 108 mm[Hg] [facility] 06-04-2021 14:34-0400 Respiratory rate 18 /min [facility] 06-04-2021 14:34-0400 SaO2% (BldA) [Mass fraction] 96 % [facility] 06-04-2021 14:34-0400 Systolic blood pressure 149 mm[Hg] [facility] 05-13-2021 12:49-0400 Body temperature 97.7 [degF] Ariadne Murray [facility] 05-13-2021 12:49-0400 Diastolic blood pressure 70 mm[Hg] Ariadne Murray [facility] 05-13-2021 12:49-0400 Heart rate 88 /min Ariadne Murray [facility] 05-13-2021 12:49-0400 SaO2% (BldA) [Mass fraction] 98 % Ariadne Murray [facility] 05-13-2021 12:49-0400 Systolic blood pressure 110 mm[Hg] Ariadne Murray [facility] Encounters Encounter Date Encounter Type Care Provider Facility Start: 10-11-2024 End: 10-11-2024 Chart abstracting Scanning Provider External [facility] Start: 10-10-2024 End: 10-10-2024 Clinisync Result Encounter Zack Angel DO Work Phone: [facility] External Department Unsolicited Start: 10-10-2024 End: 10-10-2024 Clinisync Result Encounter Zack Angel DO Work Phone: [facility] External Department Unsolicited Start: 10-08-2024 End: 10-08-2024 ambulatory ZACK ANGLE Not Available Start: 10-08-2024 End: 10-08-2024 flow sheet Zack Angel DO Work Phone: [facility] Comment on above: Third trimester preg perez ([facility]); 31 weeks gestation of ([facility]); Hypertension affecting in third trimester ([facility]) Start: 10-08-2024 End: 10-08-2024 Bamboo flowsheet Zack [...] Comment on above: Third trimester preg perez ([facility]); Diet controlled gestational diabetes mellitus (GDM), antepartum ([facility]); Gestational diabetes mellitus (GDM), antepartum, gestational diabetes method of control unspecified ([facility]) Start: 10-03-2024 End: 10-03-2024 Clinisync Result Encounter Zack Angel DO Work Phone: [facility] External Department Unsolicited Start: 10-03-2024 End: 10-03-2024 Clinisync Result Encounter Zack Angel DO Work Phone: [facility] External Department Unsolicited Start: 10-03-2024 End: 10-03-2024 ambulatory ZACK ANGEL Not Available Start: 09-17-2024 End: 09-17-2024 Bamboo flowsheet Gwen SAAVEDRA Work Phone: [facility]ando [facility] Start: 09-17-2024 End: 09-17-2024 Bamboo flowsheet Gwen SAAVEDRA Work Phone: [facility] Start: 09-17-2024 End: 09-17-2024 flow sheet Gwen SAAVEDRA Work Phone: [facility] Comment on above: Size of fetus incons istent with dates in second trimester ([facility]) (Primary Dx); 28 weeks gestation of ([facility]) Start: 09-17-2024 End: 09-17-2024 ambulatory GWEN MCCORMICK Not Available Start: 08-29-2024 End: 08-29-2024 ambulatory ZACK ANGEL Not Available Start: 08-21-2024 End: 08-21-2024 Encounter identifier Yixue Virk DDS Work Phone: [facility] Start: 08-20-2024 End: 08-20-2024 ambulatory ZACK ANGEL Not Available Start: 08-20-2024 End: 08-20-2024 Patient encounter procedure Zack Angel DO Work Phone: [facility] Start: 08-20-2024 End: 08-20-2024 Periodic preventive med est patient 18-39 yrs Zack Angel DO Work Phone: [facility] OB Comment on above: Well woman exam with routine gynecological exam; Second trimester ([facility]); 24 weeks gestation of ([facility]); Exposure to STD; Need for maternal serum alpha-protein (MSAFP) screening ([facility]); Encounter for follow-up ultrasound of anatomy ([facility]) Start: 08-20-2024 End: 08-20-2024 Bamboo flowsheet Zack Angel DO Work Phone: [facility] Start: 08-20-2024 End: 08-23-2024 Bamboo flowsheet Zack Angel DO Work Phone: [facility] Start: 08-20-2024 End: 08-23-2024 Clinisync Result Encounter Zack Angel DO Work Phone: [facility] External Department Unsolicited Start: 08-20-2024 End: 08-21-2024 External Result Encounter Zack Angel DO Work Phone: [facility] External Department Unsolicited Start: 08-15-2024 End: 08-15-2024 Encounter identifier Bishnu Virk DDAldo Work Phone: [facility] Start: 08-15-2024 End: 08-15-2024 comprehensive oral evaluation - new or established patient Bishnu Virk FIONA Work Phone: [facility] Start: 08-01-2024 ambulatory Bishnu Moose FIONA [facility] Start: 07-23-2024 End: 07-23-2024 ambulatory GWEN MCCORMICK Not Available Start: 07-23-2024 End: 07-23-2024 flow sheet Gwen Mccormick PA Work Phone: [facility] Comment on above: Second trimester [...] Not Available Start: 04-27-2024 End: 04-27-2024 ambulatory MECHANIST-C REY ALAS Facility:[facility] Start: 04-25-2024 ambulatory MECHANIST-C REY ALAS Facility:[facility] Start: 04-18-2024 End: 04-18-2024 Emergency department patient visit Alva Jo [facility] Start: 11-07-2023 ambulatory MECHANIST-C REY ALAS Facility:[facility] Start: 10-19-2023 End: 10-19-2023 ambulatory MECHANIST-C REY ALAS Facility:[facility] Start: 10-19-2023 End: 10-19-2023 Patient encounter procedure REY ALAS [facility] Start: 10-10-2023 End: 10-10-2023 ambulatory MECHANIST-C REY Martin ALAS Facility:[facility] Start: 10-10-2023 End: 10-10-2023 Patient encounter procedure REY ALAS [facility] Start: 07-25-2023 End: 07-25-2023 ambulatory MECHANIST-C REY Martin ALAS Facility:[facility] Start: 07-25-2023 End: 07-25-2023 Patient encounter procedure REY ALAS [facility] Start: 07-08-2023 End: 07-08-2023 Emergency department patient visit Jagdish Dunn [facility] Start: 07-06-2023 End: 07-06-2023 ambulatory MECHANIST-C REY Martin ALAS Facility:[facility] Start: 07-06-2023 End: 07-06-2023 Patient encounter procedure REY ALAS [facility] Start: 01-14-2023 End: 01-14-2023 Patient encounter procedure Ricarda Garcia [facility] Start: 01-11-2023 End: 01-11-2023 Emergency department patient visit Jagd[facility] Dunn [facility] Start: 01-08-2023 End: 01-08-2023 Emergency department patient visit Alva Jo [facility] Start: 01-06-2023 End: 01-06-2023 Emergency department patient visit Jesus Ayers [facility] Start: 10-17-2022 End: 10-17-2022 Emergency department patient visit Jagdish Dunn [facility] Start: 02-17-2022 End: 02-17-2022 Emergency department patient visit Jagdish Dunn [facility] Start: 11-10-2021 End: 11-10-2021 Emergency department patient visit Jesus Armen [facility] Start: 09-11-2021 End: 09-14-2021 Evaluation and management of inpatient Presley Timmons Facility:[place] Start: 09-11-2021 End: 09-14-2021 Evaluation and management of inpatient PHYSICIAN NO [facility] Start: 08-14-2021 End: 09-14-2021 Pre-admission assessment Presley Timmons [facility] Start: 08-12-2021 End: 08-12-2021 Lab Drop off Presley iTmmons [facility] Start: 07-17-2021 End: 07-17-2021 Emergency department patient visit Jagdish Dunn [facility] Start: 07-02-2021 End: 07-02-2021 Patient encounter procedure Jennifer PIO [facility] Start: 06-14-2021 End: 07-15-2021 Pre-admission assessment Una Foote [facility] Start: 06-13-2021 End: 06-13-2021 OB Triage Una Foote [facility] Start: 06-04-2021 End: 06-04-2021 Emergency department patient visit Alva George Sandro [facility] Start: 05-30-2021 End: 05-30-2021 Patient encounter procedure Presley Timmons [facility] Start: 2021 End: 06-14-2021 Pre-admission assessment Presley Timmons [facility] Start: 05-13-2021 End: 05-13-2021 Patient encounter procedure Ariadne Murray [facility] Start: 02-11-2021 End: 02-11-[address] RORO GARNER Facility:[facility] Procedures Date Procedure Procedure Detail Performing Clinician Start: 10-10-2024 OB BPP W NON-STRESS Zack Angel DO Work Phone: Start: 10-08-2024 Urnls dip stick/tabl et rgnt non-auto w/o micrscp Zack Angel DO Work Phone: Start: 10-04-2024 Antibody screen Scannin g External Start: 10-04-2024 TYPE AND SCREEN Not In System Ref Prov Start: 10-04-2024 ALL BUN Zack Fazi o [...] w/o micrscp Gwen SAAVEDRA Work Phone: Start: 10-03-2024 Basic metabolic pane l calcium total Zack R Angel DO Work Phone: Start: 10-03-2024 CBC W Auto Different ial panel - Blood Zack R Angel DO Work Phone: Start: 10-03-2024 Hepatic function panel Zack R Angel DO Work Phone: Start: 08-21-2024 End: 08-21-2024 Documentation of current medications Yixue Virk DDS Work Phone: Start: 08-21-2024 End: 08-21-2024 extraction, erupted tooth or exposed root (elevation and/or forceps removal) Bishnu Virk DDS Work Phone: Start: 08-21-2024 End: 08-21-2024 nutritional counseling for control of dental disease Bishnu Virk DDS Work Phone: Start: 08-21-2024 End: 08-21-2024 oral hygiene instructions Bishnu Virk DDS Work Phone: Start: 08-20-2024 RECURRENT VAGINITIS (HTRX) Zack Angel DO Work Phone: Start: 08-20-2024 Urnls dip stick/tabl et rgnt non-auto w/o micrscp Zack Angel [employer] Work Phone: Start: 08-20-2024 IGP,APTIMA HPV,AGE GDLN Zack Angel [employer] Work Phone: Start: 08-20-2024 Microscopic observat ion [...] Zack Angel DO Work Phone: Start: 2024 [facility] DRUG SCREEN RAPI D (URINE) Zack Angel DO Work Phone: Start: 05-24-2024 BOX TEST Zack Fagreg o DO Work Phone: Start: 05-22-2024 Urine test visual color cmprsn meths Zack Angel DO Work Phone: Cholecystectomy Ariadne Murray denies Ariadne Díazler SARS Antigen (LFIA) PHYSICIA N NO FAMILY Plan of Treatment Date Care Activity Detail Author Start: 09-14-2031 DTaP,Tdap and Td Vaccines (3 - Td or Tdap) DTaP,Tdap and Td Vaccines (3 - Td or Tdap) [facility] Start: 08-20-2029 Screening for malign ant neoplasm of cervix [facility] Start: 08-21-2027 Screening for malign ant neoplasm of cervix Pap Smear [facility] Start: 10-04-2025 Adult BMI Screening Adult BMI Screen [facility] Start: 10-18-2024 End: 10-18-2024 ambulatory 10/18/2024 1:30 PM EDT Support Visit [facility] [address] [place] [id number] Krista Cruz, RN [address], [address] [place] [id number] Laura Weaver LD [facility] Start: 10-17-2024 End: 10-17-2024 Patient encounter procedure 10/17/2024 1:30 PM EDT Routine [facility] [address] [place] [id number] Zack Ortiz [address] [address] [facility] Start: 10-15-2024 Influenza vaccination [facility] Start: 10-03-2024 End: 04-05-2025 US biophysical profile w non stress test US biophysical profile w non stress test Imaging Routine Gestational diabetes mellitus (GDM), antepartum, gestational diabetes method of control unspecified ([facility]) Expected: 10/03/2024 (Approximate), Expires: 04/05/2025 [facility] Work Phone: Comment on above: Expected: 10/03/2024 (Approximate), Expires: 04/05/2025 Start: 09-20-2024 End: 09-20-2024 US for US OB limited 1+ fetuses Imaging Routine Encounter for follow-up ultrasound of anatomy ([facility]) Expected: 09/20/2024, Expires: 09/20/2024 [facility] Work Phone: Comment on above: Expected: 09/20/2024 , Expires: 09/20/2024 Start: 09-17-2024 End: 01-17-2025 US for US OB follow up transabdominal approach Imaging Routine Size of fetus inconsistent with dates in second trimester ([facility]) Expected: 09/17/2024, Expires: 01/17/2025 [facility] Work Phone: Comment on above: Expected: 09/17/2024 , Expires: 01/17/2025 Start: 09-17-2024 End: 09-17-2024 Patient encounter procedure [facility] Comment on above: Arrived Start: 09-05-2024 Sabrina Richmond [facility] Work Phone: Start: 08-29-2024 End: 08-29-2024 Professional / ancillary services management 08/29/2024 1:00 PM EDT Ancillary Procedure [facility] [address] [place] [id number] [facility] Start: 08-21-2024 Satish Maciel [facility] Work Phone: Start: 08-20-2024 End: 08-20-2024 Patient encounter procedure 08/20/2024 2:10 PM EDT Routine [facility] [address] [facility] [place] [address] Zack Ortiz DO [address] [facility] [address] Alfredo Durán, [facility] Start: 08-15-2024 [facility] Work Phone: Start: 07-23-2024 End: 07-23-2024 Patient encounter procedure 07/23/2024 2:30 PM EDT Routine [facility] [address] [facility] [place] [address] Gwen Mccormick PA [address] [place] [address] [facility] Start: 07-23-2024 End: 08-22-2024 Alpha fetoprotein, maternal Alpha fetoprotein, maternal Lab Routine Need for maternal serum alpha-protein (MSAFP) screening Expected: 07/23/2024 (Approximate), Expires: 08/22/2024 [facility] Work Phone: Comment on above: Expected: 07/23/2024 (Approximate), Expires: 08/22/2024 Start: 07-23-2024 End: 07-23-2024 Professional / ancillary services management 07/23/2024 1:30 PM EDT Ancillary Procedure [facility] [address] [facility] [address] [place] [address] [facility] Start: 06-18-2024 End: 09-18-2024 US for US OB 14+ weeks anatomy scan Imaging Routine Screening, , for anatomic survey Expected: 06/18/2024, Expires: 09/18/2024 [facility] Work Phone: Comment on above: Expected: 06/18/2024 , Expires: 09/18/2024 Start: 06-18-2024 End: 06-18-2024 Patient encounter procedure [facility] Comment on above: Arrived Start: 2024 Screening for malign ant neoplasm of cervix [facility] Start: 05-18-2024 End: 05-18-2025 ABO/Rh ABO/Rh Lab Routine Missed menses , unspecified gestational age Expected: 05/18/2024 (Approximate), Expires: 05/18/2025 [facility] Comment on above: Expected: 05/18/2024 (Approximate), Expires: 05/18/2025 Start: 05-18-2024 End: 05-18-2025 Blood type and Indirect antibody screen panel - Blood Type and screen Lab Routine Missed menses , unspecified gestational age Expected: 05/18/2024 (Approximate), Expires: 05/18/2025 [facility] Work Phone: Comment on above: Expected: 05/18/2024 (Approximate), Expires: 05/18/2025 Start: 05-18-2024 End: 05-18-2025 Drugs of abuse panel - Urine by Screen method Rapid drug screen, urine Lab Routine , unspecified gestational age Encounter for supervision of normal first in first trimester Expected: 05/18/2024 (Approximate), Expires: 05/18/2025 [facility] Comment on above: Expected: 05/18/2024 (Approximate), Expires: 05/18/2025 Start: 10-16-2023 COVID-19 Vaccine ( season) COVID-19 Vaccine ( season) [facility] Start: 09-14-2021 [facility] Work Phone: Start: 09-12-[address] [facility] Work Phone: Start: 09-11-2021 Delivery of Products of Conception, External Approach Delivery of Products of Conception, External Approach [place] Start: 09-11-2021 Division of Female Perineum, External Approach Division of Female Perineum, External Approach [place] Start: 09-11-2021 Drainage of Amniotic Fluid, Therapeutic from Products of Conception, Via Natural or Artificial Opening Drainage of Amniotic Fluid, Therapeutic from Products of Conception, Via Natural or Artificial Opening [place] Start: 05-28-2015 Screening for malign ant neoplasm of cervix Pap Smear [facility] Start: 2012 Adult BMI Follow Up Plan Adult BMI Follow Up Plan [facility] Start: 2006 Depression Screening Depression Scre ening [facility] Start: 2006 Tobacco Screening Tobacco Screening [facility] Bacteria identified in Urine by Culture Urine culture Microbiology Routine Missed menses Ordered: 05/18/2024 [facility] Comment on above: Ordered: 05/18/2024 CBC W Auto Different ial panel - Blood CBC and differential Lab Routine Missed menses , unspecified gestational age Ordered: 05/18/2024 [facility] Comment on above: Ordered: 05/18/2024 CHLAMYDIA TRACHOMATI S (GENITO/STI) CHLAMYDIA TRACHOMATIS (GENITO/STI) Lab Routine Exposure to STD Ordered: 08/20/2024 [facility] Comment on above: Ordered: 08/20/2024 Cytology Cervical or vaginal smear or scraping study Pap Smear Pathology and Cytology Routine Well woman exam with routine gynecological exam Ordered: 08/20/2024 [facility] Comment on above: Ordered: 08/20/2024 Hemoglobin A1c/Hemoglobin.total in Blood Hemoglobin A1c Lab Routine Missed menses , unspecified gestational age Ordered: 05/18/2024 [facility] Comment on above: Ordered: 05/18/2024 Hepatitis B virus surface Ag [Presence] in Serum or Plasma by Immunoassay Hepatitis B surface antigen Lab Routine Missed menses , unspecified gestational age Ordered: 05/18/2024 [facility] Comment on above: Ordered: 05/18/2024 Hepatitis C virus Ab [Presence] in Serum or Plasma by Immunoassay Hepatitis C antibody Lab Routine Missed menses , unspecified gestational age Ordered: 05/18/2024 [facility] Comment on above: Ordered: 05/18/2024 HIV-1/HIV-2 antigen/antibody combination immunoassay HIV-1 and HIV-2 antibodies Lab Routine Missed menses , unspecified gestational age Ordered: 05/18/2024 [facility] Comment on above: Ordered: 05/18/2024 Human papilloma viru s DNA [Presence] in Unspecified specimen by Probe with amplification HPV DNA probe, amplified Microbiology Routine Well woman exam with routine gynecological exam Ordered: 08/20/2024 [facility] Comment on above: Ordered: 08/20/2024 Neisseria gonorrhoea e DNA [Presence] in Unspecified specimen by EMMA with probe detection Neisseria gonorrhea DNA probe, direct Lab Routine Exposure to STD Ordered: 08/20/2024 [facility] Comment on above: Ordered: 08/20/2024 Patient Education Post- Di jelani Instructions ([facility]) [facility] Work Phone: Patient referral [facility] Work Phone: Reagin Ab [Presence] in Serum by RPR RPR Lab Routine Missed menses , unspecified gestational age Ordered: 05/18/2024 [facility] Comment on above: Ordered: 05/18/2024 Rubella antibody, IgG Rubella an tibody, IgG Lab Routine Missed menses , unspecified gestational age Ordered: 05/18/2024 [facility] Comment on above: Ordered: 05/18/2024 SURESWAB(R) ADVANCED VAGINITIS PLUS, TMA SURESWAB(R) ADVANCED VAGINITIS PLUS, TMA Pathology and Cytology Routine Exposure to STD Ordered: 08/20/2024 [facility] Comment on above: Ordered: 08/20/2024 Immunizations Immunization Date Immunization Notes Care Provider Sivakumar raines 09-13-2021 tetanus toxoid, reduced diphtheria toxoid, and acellular pertussis vaccine, adsorbed PHYSICIAN NO [facility] 10-09-2020 SARS-CoV-2 (COVID-19 ) [id number] vaccine Ricarda Garcia [facility] Comment on above: Result Comment: 2022: TPVAL 09-29-2020 tetanus toxoid, reduced diphtheria toxoid, and acellular pertussis vaccine, adsorbed; Translations: [Boostrix (Tdap)] Ariadne Murray [facility] Comment on above: Result Comment: (L) deltoid Result Comment: (L) deltoid 11-26-2011 influenza virus vaccine, unspecified formulation Ricarda Garcia [facility] 02-12-2004 influenza virus vaccine, unspecified formulation Ricarda Garcia [facility] 03-01-2003 influenza virus vaccine, unspecified formulation Ricarda Garcia [facility] 12-17-1996 varicella virus vaccine Ricarda Garcia [facility] 10-19-1995 DTaP, unspecified formulation Ricarda Garcia [facility] 10-19-1995 haemophilus influenzae type b vaccine, PRP-T conjugate Ricarda Garcia [facility] 06-21-1995 measles, mumps and rubella virus vaccine Ricarda Garcia [facility] 03-09-1995 hepatitis B vaccine, pediatric or pediatric/adolescent dosage Ricarda Garcia [facility] 1994 DTaP, unspecified formulation Ricarda Garcia [facility] 1994 haemophilus influenzae type b vaccine, PRP-T conjugate Ricarda Garcia [facility] 1994 poliovirus vaccine, unspecified formulation Ricarda Garcia [facility] 1994 DTaP, unspecified formulation Ricarda Garcia [facility] 1994 haemophilus influenzae type b vaccine, PRP-T conjugate Ricarda Garcia [facility] 1994 hepatitis B vaccine, pediatric or pediatric/adolescent dosage Ricarda Garcia [facility] 1994 poliovirus vaccine, unspecified formulation Ricarda Garcia [facility] 1994 DTaP, unspecified formulation Ricarda Garcia [facility] 1994 haemophilus influenzae type b vaccine, PRP-T conjugate Ricarda Garcia [facility] 1994 hepatitis B vaccine, pediatric or pediatric/adolescent dosage Ricarda Garcia [facility] 1994 poliovirus vaccine, unspecified formulation Ricarda Garcia [facility] NEGATED: Highlighted row has not occurred!10-04-2024 tetanus toxoid, reduced diphtheria toxoid, and acellular pertussis vaccine, adsorbed Scanning External [facility] NEGATED: Highlighted row has not occurred!07-06-2023 influenza virus vaccine, unspecified formulation REY ALAS [facility] [place] Payers Date Payer Category Payer Medicaid O [employer] [id number] 2024 [facility] [id number] 2024 Medicaid [id number] 2023 Blue [employer] Managed Care - PPO ANTHEM [id number] 2021 Self-pay 2021 Unknown [id number] 2021 Blue Cross Blue Shield [id number] 2021 Unknown [id number] 1994 Unknown [id number] 2.16.840.1.306663.3.579.2. 593 1994 Unknown [id number] 2.16.840.1.198572.3.579.2. 727 1994 Unknown [id number] 2.16.840.1.651278.3.579.2. 727 1994 Unknown [id number] 2.16.840.1.103766.3.579.2. 1994 Unknown [id number] 2.16.840.1.254485.3.579.2. 1994 Unknown [id number] 2.16.840.1.772573.3.579.2. 1994 Unknown [id number] 2.16.840.1.847585.3.579.2. 1994 Unknown [id number] 2.16.840.1.793345.3.579.2. 1994 Unknown [id number] 2.16.840.1.869389.3.579.2. 1994 Unknown [id number] 2.16.840.1.048791.3.579.2 1994 Unknown [id number] 2.16.840.1.807650.3.579.2. 1994 Unknown [id number] 2.16840.1.036135.3.579.2. 1994 Unknown [id number] 2.16840.1.833053.3.579.2. 1258 1994 Unknown [id number] 2.16840.1.698416.3.579.2. 1258 1994 Unknown [id number] 2.16840.1.631254.3.579.2. 1258 1994 Unknown [id number] 2.16.840.1.766517.3.579.2. 1258 1994 Unknown [id number] 2.16.840.1.360689.3.579.2. 1258 1994 Unknown [id number] 2.16.840.1.597190.3.579.2. 1258 1994 Unknown [id number] 2.16.840.1.969453.3.579.2. 1258 1994 Unknown [id number] 2.16.840.1.701971.3.579.2. 1259 1994 Unknown [id number] 2.16.840.1.634989.3.579.2. 1259 1994 Unknown [id number] 2.16.840.1.510073.3.579.2. 1259 1994 Unknown [id number] 2.16.840.1.820949.3.579.2. 1259 1959 Unknown [id number] Unknown [id number] 2.16.840.1.957143.3.579.2. 531 Social History Date Type Detail Facility Start: 10-03-2020 End: 07-06-2023 Tobacco smoking status Never smoked tobacco (finding) [facility] Tobacco smoking status Never [facility] Start: 07-25-2018 End: 08-15-2015 Sex Assigned At Female [facility] Start: 1995 Sex Assigned At Female [place] Start: 08-15-2024 End: 08-21-2024 Tobacco smoking status [facility] Tobacco smoking consumption unknown [facility] Start: 03-15-2024 [facility] Start: 05-17-2024 Gender identity Identifies as female gender (finding) [facility] Start: 05-17-2024 Sexual orientation Bisexual (finding) [facility] Start: 08-15-2024 Alcohol intake Alcohol Use Details [facility] Sexual Orientation Straight or heterosexu al [facility] Work Phone: Start: 07-25-2018 History of Social function [facility] Start: 1995 Sex assigned at Not on file [facility] Start: 09-17-2014 Sex Female (finding) [facility] Medical Equipment Procedure Code Equipment Code Equipment Origin al Text Equipment Identifier Dates 1 strip by In Vi tro route Daily Use in the morning prior to breakfast, 1 hour after each meal for a total of 4times daily. [id number] Start: 06-18-2024 End: 07-18-2024 1 each by In Vit ro route Daily Use to check FSBS four times daily [id number] Start: 06-18-2024 End: 07-18-2024 Use as instructed [id number] Start: 10-03-2024 End: 10-03-2024 Goals Date Patient Goal Desired Activity /State Functional Status Date Assessment Result Facility 04-18-2024 Functional Status N/A [facility] 10-10-2023 Functional Status N/A [facility] 07-08-2023 Functional Status N/A [facility] 07-06-2023 Functional Status N/A [facility] 01-11-2023 Functional Status N/A [facility] 01-08-2023 Functional Status N/A [facility] 01-06-2023 Functional Status N/A [facility] 10-17-2022 Functional Status N/A [facility] 02-17-2022 Functional Status N/A [facility] 11-10-2021 Functional Status N/A [facility] 09-14-2021 Functional status Patient at [facility] Work Phone: Mental Status Date Assessment Result Facility 09-14-2021 Cognitive function Cognitive Sta tus Patient at Baseline [facility] Work Phone: Clinical Notes 05-13-2021 to 10-08-2024 [...] to check FSBS. Blood Glucose Monitoring Suppl (Kibin Glucometer) w/Device kit 1 kit, Does not [...] nursing note reviewed. Exam conducted with a riveter pneumatic present. Vitals: Estimated body mass index is 49.33 kg/m as calculated from the following: Height as of 10/28/21: 5' 4 . Weight as of this encounter: 287 lb 6.4 oz. BP: (!) 142/100 No LMP recorded. Patient is . ASSESSMENT & PLAN ICD-10-CM 1. Third trimester ([facility]) Z34.93 Urine dip 2. 31 weeks gestation of ([facility]) Z3A.31 Urine dip Patient was seen at [facility] last week. Patient left AMA and was advised that it is recommended that she return to [place] until delivery as instructed. Patient declines and would like to continue locally at this time. Informed patient that if she experiences any symptoms then she is to return to [facility] to be monitored. Patient declines and will increase BP meds to Labetalol 300mg TID. Patient aware that she needs to continue her NST/BPPs and weekly office visits. Patient voiced that she has changed her diet and her diabetes is now under control. Documented by Nayeli Randle LPN on behalf of: Zack Ortiz DO documented in this encounter [facility] 10-03-2024 History of Presen t illness [...] nursing note reviewed. Exam conducted with a riveter pneumatic present. Vitals: Estimated body mass index is 50.98 kg/m as calculated from the following: Height as of 10/28/21: 5' 4 . Weight as of this encounter: 297 lb. BP: (!) 154/100 No LMP recorded. Patient is . ASSESSMENT & PLAN ICD-10-CM 1. Third trimester ([facility]) Z34.93 POCT urinalysis dipstick manually resulted 2. Diet controlled gestational diabetes mellitus (GDM), antepartum ([facility]) O24.410 Return OB: Patient presents today for [...] on insulin. Pt to be referred to [facility] for diabetic ed and insulin prescription. Pt to start NST/BPP pt bp elevated, pt being sent to [facility] for obs. Orders Placed This Encounter Procedures POCT urinalysis dipstick manually resulted Follow Up: Patient is to return to office in 2 week for routine OB appointment. Documented by Jane Lang LPN on behalf of: Zack Ortiz DO documented in this encounter [facility] 09-17-2024 History of Presen t illness Narrative Reason for Appointment: Patient ID: Sabrina Richmond is a 29 y.o. female who presents for Routine Visit Patient presents today for Return OB appointment. MEDICATIONS Current Outpatient Medications Medication Instructions ALBUTEROL IN Alcohol Swabs (Alcohol Prep Pad) 70 % pads 1 Pad, Topical, Daily, Use four times daily to check FSBS. Blood Glucose Monitoring Suppl (D-tracx Glucometer) w/Device kit 1 kit, Does not [...] PLAN ICD-10-CM 1. 28 weeks gestation of ([facility]) Z3A.28 Return OB: Patient presents today for [...] Documented by KERI Velasquez on behalf of: KERI Velasquez documented in this encounter [facility] 08-21-2024 History of Presen t illness Narrative Encounter Date ext [facility] Work Phone: 1(481) 702-817907-07-2025 History of Present illness Narrative* Berta Yoder [...] to check FSBS. Blood Glucose Monitoring Suppl (Kibin Glucometer) w/Device kit 1 kit, Does not [...] nursing note reviewed. Exam conducted with a riveter pneumatic present. Vitals: Estimated body mass index is 47.38 kg/m as calculated from the following: Height as of 10/28/21: 5' 4 . Weight as of 07/23/24: 276 lb. BP: No LMP recorded. Patient is . ASSESSMENT & PLAN ICD-10-CM 1. Well woman exam with routine gynecological exam Z01.419 Pap Smear HPV DNA probe, amplified 2. Second trimester ([facility]) Z34.92 POCT urinalysis dipstick manually resulted 3. 24 weeks gestation of ([facility]) Z3A.24 4. Exposure to STD Z20.2 SURESWAB(R) ADVANCED VAGINITIS PLUS, TMA CHLAMYDIA TRACHOMATIS (GENITO/STI) Neisseria gonorrhea DNA probe, direct 5. Need for maternal serum alpha-protein (MSAFP) screening ([facility]) Z36.1 6. Encounter for follow-up ultrasound of anatomy ([facility]) Z36.2 US OB limited 1+ fetuses Return [...] behalf of: alexandra Velasquez documented in this encounterPer[facility] [id number] History of Present illness Narrative* Encounter Date Complaint History Of Prese nt Illness DL DL [facility] Work Phone: 1(804) 632-360306-09-2025 History of Present illness Narrative* KERI Velasquez [...] to check FSBS. Blood Glucose Monitoring Suppl (RMDMgroup-tracx Glucometer) w/Device kit 1 kit, Does not [...] nursing note reviewed. Exam conducted with a riveter pneumatic present. Vitals: Estimated body mass index is [...] of: Manasa Conroy NP documented in this encounterPerry County [facility] [id number] History of Present illness Narrative* Manasa Conroy [...] nursing note reviewed. Exam conducted with a riveter pneumatic present. Vitals: Estimated body mass index is [...] of: Zack Ortiz DO documented in this encounterPerry County Memorial [id number] History of Present illness Narrative* Snehal Lamb [...] or undercooked meat, and stay away from [facility]. Patient has also been advised to [...] by: Snehal Lamb MA documented in this encounterPerry County Memorial [id number] Hospital Discharge instructions Patient Education 04/18/2024 14:10:03 Community-Acquired Pneumonia, Adult, Nyhd-wc-Cfkv Community-Acquired Pneumonia, Adult Pneumonia is an infection [...] Follow these instructions at home: Medicines Take wyqz-paj-tksnajy and prescription medicines only as told by [...] cannot use soap and water, use hand real estate instructor. Contact a doctor if: You have a [...] provider. Document Revised: 03/31/2022 Document Reviewed: 03/31/2022 [employer] Patient Education 2023 [employer]. Follow Up Care 04/18/2024 11:38:41 With:REY ALAS Address: [address] [place] [address] Business (1) When:04/21/2024 13:47:32 Comments:Call Dr for diagnosis based follow up [facility] 03-05-2025 NoteED Patient Education Note Infectious Disease [...] these instructions at home: Medicines ??? Take yywt-aqf-xghpdnf and prescription medicines only as told by [...] cannot use soap and water, use hand real estate instructor. Contact a doctor if: ??? You [...] lungs. ??? Community-acquired pneumonia (more content not included)...[facility]03-05-2025 Evaluation + Plan noteExtracted from: Title:ED Note Author:Derick MS III, James M Date:04/18/24 Pneumonia (J18.9: Pneumonia, unspecified organism) Orders: albuterol, 1 puff(s), Inhalation, q6hr for wheezing, 18 gram, Refill(s) 0, [facility]/pharmacy #[id number], 165, cm, 04/18/24 11:46:00 EST, Height/Length Dosing, 124.5, kg, 04/18/24 11:46:00 EST, Weight Dosing amoxicillin, 1,000 mg = 2 cap(s), Oral, q12hr, X 7 day(s), # 28 cap(s), Refills(s) 0, Pharmacy: [facility]/pharmacy #[id number], 165, cm, 04/18/24 11:46:00 EST, Height/Length Dosing, 124.5, kg, 04/18/24 11:46:00 EST, Weight Dosing Influenza A&B Ag Rapid COVID Antigen ([facility]) [facility] 05-24-2024 Hospital Discharge instructions Patient Education 07/08/2023 [...] if you feel dizzy. General instructions Take pede-olm-igueayz and prescription medicines only as told by [...] provider. Document Revised: 12/31/2020 Document Reviewed: 12/31/2020 [employer] Patient Education 2022 [employer]. 07/08/2023 14:32:37 Sinus Pain Sinus Pain Sinus [...] to cool or dry air. Medicines Take qxdb-tbx-bnpumly and prescription medicines only as told by [...] provider. Document Revised: 01/03/2022 Document Reviewed: 01/03/2022 [employer] Patient Education 2022 [employer]. Follow Up Care 07/08/2023 12:48:51 With:REY ALAS Address: [address] [place] [address]- Business (1) When:07/11/2023 14:12:36 [facility]05-24-2024 Evaluation + Plan noteExtracted from: Title:ED Note Author:Jarrell King PA-C te:07/08/23 Sinus headache (R51.9: Heada rowna, unspecified) Vertigo (R42: Dizziness and giddiness) Orders: ketorolac, 60 mg = 2 mL, Injection, IntraMuscular, Once, Stop date 07/08/23 13:55:00 EDT, STAT, Start date 07/08/23 13:55:00 EDT, 07/08/23 13:55:00 EDT loratadine-pseudoephedrine, 1 tab(s), Oral, q12hr for 10 day(s), 20 tab(s), Refill(s) 0, [facility]/pharmacy #[id number], 165.1, cm, 07/08/23 12:52:00 EDT, Height/Length Dosing, 127, kg, 07/08/23 12:52:00 EDT, Weight Dosing meclizine, 25 mg = 1 tab(s), Oral, TID, PRN for dizziness, # 15 tab(s), Refills(s) 0, Pharmacy: [facility]/pharmacy #[id number], 165.1, cm, 07/08/23 12:52:00 EDT, Height/Length Dosing, 127, kg, 07/08/23 12:52:00 EDT, Weight Dosing meclizine, 25 mg = 2 tab(s), Tab, Oral, Once, Stop date 07/08/23 13:02:00 EDT, STAT, Start date 07/08/23 13:02:00 EDT, 07/08/23 13:02:00 EDT XR Chest Single View Future Appointments Appointment Date:07/25/2023 08:40:00 AM Scheduled Provider:JOAQUÍN RODRIGUEZ Location:[facility] Appointment Type:FM Open [facility]05-22-2024 Hospital Discharge instructions Patient Education 07/06/2023 10:09:45 [...] Follow these instructions at home: Medicines Take cvqo-mhi-gbltpax and prescription medicines only as told by [...] for Headache and Migraine Patients (CHAMP): [email or web address] [place] Mig[employer] Foundation: [email or web address].[email or web address] National Headache Foundation: headaches.org [...] provider. Document Revised: 03/19/2020 Document Reviewed: 03/19/2020 Elsevier Patient Education 2022 Xockets. Follow Up Care 06/28/2023 15:15:45 With:JOAQUÍN RODRIGUEZ FAM Address: When:4 weeks [facility] [place] 11-28-2023 Hospital Discharge instructions Patient Education 01/11/2023 19:37:18 Cervical Sprain, Tqqq-cb-Anld Cervical Sprain A cervical sprain is also [...] Follow these instructions at home: Medicines Take exuq-uby-bfxkxbl and prescription medicines only as told by your doctor. Ask your doctor if the medicine prescribed to you: ?Requires you to avoid driving or using heavy machinery. ?Can cause trouble pooping (constipation). You may need to take these actions to prevent or treat trouble pooping: ?Drink enough fluid to keep your pee (urine) pale yellow. ?Take uwzg-sey-ogxcedt or prescription medicines. ?Eat foods that are [...] provider. Document Revised: 05/10/2022 Document Reviewed: 10/10/2019 [employer] Patient Education 2022 [employer]. Follow Up Care 01/11/2023 15:55:53 With:CROW LYLES DO, FAM Address: When:1 to 2 days Comments:Call today to schedule your follow up [facility]11-25-2023 Hospital Discharge instructions Patient Education 01/08/2023 18:29:49 [...] if you feel dizzy. General instructions Take ukqu-vll-hgnmvsy and prescription medicines only as told by [...] provider. Document Revised: 12/31/2020 Document Reviewed: 12/31/2020 [employer] Patient Education 2022 [employer] 01/08/2023 18:29:49 General Headache Without Cause [...] help with your condition: Managing pain Take yzxd-rkq-xeuhmwe and prescription medicines only as told by [...] provider. Document Revised: 07/01/2021 Document Reviewed: 07/01/2021 [employer] Patient Education 2022 [employer]. Follow Up Care 01/08/2023 12:35:43 With:Terrell HAN Address: [facility] [place] [address] Business (1) When:01/11/2023 18:19:03 Comments:Return to the emergency room if your headache recurs, fever, vomiting, vision change or any new symptoms. [facility]11-25-2023 Evaluation + Plan noteExtracted from: Title:ED Note Author:Caio VILLALOBOSVonnie Magnolia Adam e:01/08/23 1. Headache (R51.9: Headache , unspecified) [...] or Brain w/o Contrast Extra SST Tube [facility]11-23-2023 Hospital Discharge instructions Follow Up Care 01/06/2023 14:44:33 With:[employer] [facility] Address: [address] [place] [address]- Business (1) When:01/09/2023 17:03:00 With:XXXX NONE Address: OK When:Within 3 Day(s) [facility]11-23-2023 Evaluation + Plan noteExtracted from: Title:ED Note [...] Tube Influenza A&B Ag Rapid COVID Antigen ([facility]) [facility]09-03-2023 Hospital Discharge instructions Patient Education 10/17/2022 17:28:51 [...] younger than 2 years. Live in a long term. Travel on cruise ships. What are the [...] and water are not available, use hand real estate instructor. Make sure that all people in your household wash their hands well and often. Take bflu-naq-zqmrbae and prescription medicines only as told by [...] and water are not available, use hand real estate instructor. This information is not intended to replace advice given to you by your health care provider. Make sure you discuss any questions you have with your health care provider. Document Revised: 11/30/2021 Document Reviewed: 11/30/2021 [employer] Patient Education 2022 [employer]. Follow Up Care 10/17/2022 13:03:17 With:ROOSEVELT FRANK Address: [address] [place], [place] [id number] [facility] (1) When:10/20/2022 17:25:20 Comments:Call the [...] weakness, or any new or worsening symptoms. [facility]-03-2023 Evaluation + Plan noteExtracted from: Title:ED Note [...] was discharged home. Jagdish Dunn DO, WILFREDO [facility]01-04-2023 Hospital Discharge instructions Patient Education 02/17/2022 21:17:10 [...] if you start to feel better. Take bogf-gkb-mwrdzjf and prescription medicines only as told by [...] 03/10/2005 Document Revised: 08/03/2018 Document Reviewed: 08/03/2018 [employer] Patient Education 2020 [employer]. 02/17/2022 21:17:10 Nausea and Vomiting, Adult Nausea [...] water added (diluted fruit juice). Eat bland, kfxe-ua-nisyxr foods in small amounts as you are able. These foods include bananas, applesauce, rice, lean meats, toast, and crackers. Avoid fluids that contain a lot of sugar or caffeine, such as energy drinks, sports drinks, and soda. Avoid alcohol. Avoid spicy or fatty foods. General instructions Take jvjb-nmd-xggrcxq and prescription medicines only as told by your health care provider. Drink enough fluid to keep your urine pale yellow. Wash your hands often using soap and water. If soap and water are not available, use hand real estate instructor. Make sure that all people in your [...] eating and drinking to prevent dehydration. Take btut-blq-nquuvik and prescription medicines only as told by [...] 01/31/2006 Document Revised: 05/25/2019 Document Reviewed: 07/11/2018 [employer] Patient Education 2020 [employer] 02/17/2022 21:17:10 Abdominal Pain, Adult Abdominal Pain, [...] Follow these instructions at home: Medicines Take vfkl-idx-krcdbpp and prescription medicines only as told by [...] Watch your condition for any changes. Take wrks-ymm-btlddtk and prescription medicines only as told by [...] 11/10/2005 Document Revised: 06/11/2019 Document Reviewed: 06/11/2019 [employer] Patient Education 2019 [employer]. Follow Up Care 02/17/2022 15:51:20 With:Hosea John Address: [address] [place] [address] [address] [place] [address]- When:02/20/2022 21:03:18 Comments:Return to the emergency room if your pain gets worse, vomiting, fever or any new symptoms [facility]01-04-2023 Evaluation + Plan noteExtracted from: Title:ED Note [...] UA With Cult Reflex Addendum by Sandro Ramirez As polina George on February 17, 2022 21:20:50 EST The care of the patient was transitioned to ma upon shift change to follow-up with CT [...] are both in agreement. Additional diagnosis: Enteritis [facility]09-27-2022 Hospital Discharge instructions Patient Education 11/10/2021 13:29:03 [...] Treatment for this condition includes: Antibiotic medicine. Gkxl-zgf-oqqnkhs medicines to treat discomfort. Drinking enough water [...] Follow these instructions at home: Medicines Take ghfk-ndh-ferpasy and prescription medicines only as told by [...] 11/10/2005 Document Revised: 01/18/2019 Document Reviewed: 08/10/2018 [employer] Patient Education 2020 Inventalator Follow Up Care 11/10/2021 12:07:08 With:Horacio Link Address: [address] [place] [address]- Business (1) When:11/13/2021 13:20:06 [facility]09-27-2022 Evaluation + Plan note Diagnostic Tests Pending * Urine Culture 11/10/21 [facility]08-01-2022 Progress note Author Radha Orona [place] September 14, 2021 10:31am Note Date/Time September 14, 2021 10: 31am [facility] [address] [place] [address] [employer] TE[employer]ER Progress Note Signed Patient: Sabrina Richmond MR#: [id number] : 1995 Acct:[id number] Age/Sex: 26 / F Adm Date: 2 Loc: Room: [address] [place] [address] Type: ADM IN Attending Dr: Presley Timmons [...] and bottle feeding well; no nursing well [place] feeding status: breast and bottle feeding OB [...] % (Auto) 73.9, Lymph % (Auto) 18.5, Scott % (Auto) 6.5, Eos % (Auto) 0.8, Baso % (Auto) 0.3, Neut # (Auto) 9.7 H, Lymph # (Auto) 2.4, Scott # (Auto) 0.9 H, Eos # (Auto) [...] signed by Radha Orona DO> 09/14/21 [address] [facility] Work Phone: 1(175) 390-421707-31-2022 Progress note Author PRESLEY TIMMONS [place] September 13, 2021 8:54am Note Date/Time September 13, 2021 8:54 am [facility] [address] [place] [address] [employer] 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 Patient comments: no complaints [place] baby status: doing well feeding status: exclusively [...] signed by MD PRESLEY TIMMONS> 09/13/21 0854 [facility] Work Phone: 1(311) 894-911707-30-2022 [place]06-29-2022 Evaluation + Plan note Diagnostic Tests Pending * Group B Streptococcus colonization by PCR 08/12/21 [facility]-03-2022 Hospital Discharge instructions Patient Education 07/17/2021 11:06:59 [...] exercise. Managing pain, stiffness, and swelling Take fadd-eqi-eraqebd and prescription medicines only as told by [...] 01/31/2006 Document Revised: 01/13/2018 Document Reviewed: 03/02/2017 [employer] Patient Education 2020 [employer] Follow Up Care 07/17/2021 09:19:46 With:Presley Timmons MD Address: When:07/20/2021 [facility]04-30-2022 Evaluation + Plan note Diagnostic Tests Pending * Urine Culture 06/13/21 [facility]04-30-2022 Hospital Discharge instructions Follow Up Care 06/13/2021 09:58:45 With:Presley Timmons Address:Unknown When:06/24/2021 Comments:Call for any problems.Call for fever > 100.5 FCall for severe abdominal painCall physician for heavy vaginal bleedinCall physician if symptoms worsenReturn for decreased movementReturn if ruptured membranes or vaginalKeep next scheduled [facility]04-21-2022 Hospital Discharge instructions Patient Education 06/04/2021 [...] water added (diluted fruit juice). Eat bland, ffqw-uw-hjiitb foods in small amounts as you are able. These foods include bananas, applesauce, rice, lean meats, toast, and crackers. Avoid fluids that contain a lot of sugar or caffeine, such as energy drinks, sports drinks, and soda. Avoid alcohol. Avoid spicy or fatty foods. General instructions Take iowk-pmd-mpkuvpv and prescription medicines only as told by your health care provider. Drink enough fluid to keep your urine pale yellow. Wash your hands often using soap and water. If soap and water are not available, use hand real estate instructor. Make sure that all people in your [...] eating and drinking to prevent dehydration. Take osjl-brs-thjlbdj and prescription medicines only as told by [...] 01/31/2006 Document Revised: 05/25/2019 Document Reviewed: 07/11/2018 [employer] Patient Education 2020 [employer]. Follow Up Care 06/04/2021 14:33:50 With:Ann-Marie Romero Address: [address] [place] [phone] Business (1) When:06/07/2021 16:06:44 [facility]04-21-2022 Evaluation + Plan noteExtracted from: Title:ED Note [...] q6hr, # 14 tab(s), Refills(s) 0, Pharmacy: [facility]/pharmacy #[id number], 165, cm, 06/04/21 14:38:00 EDT, Height/Length Dosing, 123, kg, 06/04/21 14:38:00 EDT, Weight Dosing Sodium Chloride 0.9% intravenous solution, 1,000 mL, Soln-IV, IV, Once, Stop date 06/04/21 14:53:00 EDT, STAT, Start date 06/04/21 14:53:00 EDT, mL/hr, Infuse over 61, minute(s) Automated Diff CBC w/ Auto Diff Comprehensive Metabolic Panel eGFR Extra Blue Tube Lipase Level UA With Cult Reflex [facility]03-30-2022 Hospital Discharge instructions Patient Education 05/13/2021 13:28:47 [...] 10/28/2004 Document Revised: 02/17/2017 Document Reviewed: 05/01/2016 [employer] Patient Education 2020 [employer]. 05/13/2021 13:28:44 Rapid Strep Test Rapid Strep [...] 03/10/2005 Document Revised: 05/25/2019 Document Reviewed: 10/04/2017 [employer] Patient Education 2020 [employer] Follow Up Care 05/13/2021 12:18:07 With:Nick DOMINGO, MIGDALIA Tompkins Address: [address] [place] [address] [address] [place] [address] [phone] When: Unknown [facility] Consult note* Clinical Note Date No Information [facility] Work Phone: Discharge summary* Clinical Note Date No Information [facility] Work Phone: Evaluation + Plan note No data available for this section [facility] Evaluation + Plan note Future Appointments Appointment Date:01/14/2023 01:40:00 PM Scheduled Provider:Ricarda Anthony Location:[facility] Appointment Type:FM [facility] Future Appointments Appointment Date:07/25/2023 08:40:00 AM Scheduled Provider:JOAQUÍN RODRIGUEZ Location:[facility] Appointment Type: Open [facility] [place] Evaluation + Plan note Future Appointments Appointment Date:10/12/2023 08:00:00 AM Scheduled [facility] () Appointment Date:11/07/2023 02:00:00 PM Scheduled Provider:JOAQUÍN RODRIGUEZ Location:[facility] Appointment Type: Open Future Scheduled Tests Radiology* MRI Brain w/ + w/o Contrast 10/12/23 [facility] [place] Evaluation + Plan note Future Appointments Appointment Date:11/07/2023 02:00:00 PM Scheduled Provider:JOAQUÍN RODRIGUEZ Location:[facility] Appointment Type:[facility] Evcfiation note* Diagnosis Onset Date Resolution Status 40 weeks gestation of acute Status post vaginal delivery [facility] Work Phone: Evaluqmxnp note* Diagnosis Missed menses Missed menses , [...] Need for maternal serum alpha-protein (MSAFP) screening ([facility]) Encounter for follow-up ultrasound of anatomy ([facility]) [facility] Type Assessment Date No Information [facility] Work Phone: Evaluation note* Diagnosis Size of fetus inconsistent with dates in second trimester ([facility])- Primary 28 weeks gestation of ([facility]) [facility]* Diagnosis Third trimester ([facility]) state, incidental 31 weeks gestation of ([facility]) Hypertension affecting in third trimester ([facility]) [facility]* Diagnosis Third trimester ([facility]) state, incidental Diet controlled gestational diabetes mellitus (GDM), antepartum ([facility]) Gestational diabetes mellitus (GDM), antepartum, gestational diabetes method of control unspecified ([facility]) documented in this encounter [facility]* Clinical Note Date No Information [facility] Work Phone: History of Past illness Narrative* Condition Effective Dates (start - stop) O utcome No Information [facility] Work Phone: Hospital Discharge instructions No data available for this section [facility] Date Instruction Additional Infor mation No Information [facility] Work Phone: InstructionsNot on filedocumented in this encounter [facility] No data available for this section [facility] Clinical Note Date No Information [facility] Work Phone: Reason for referral (narrative) Referred by: JOAQUÍN RODRIGUEZ [facility] [place] Reason for referral (narrative)* Reason For Referral No Information [facility] Work Phone: Review of systems Narrative - Reported* System Pos/Neg Findings No Information [facility] Work Phone: Summary Purpose Family History Family Member Type Diagnosis Age At Onset No Information Advance Directives Advance Directive Response Recorded Date/ Time Advance Directives No September 10 1:39pm Directive Yes / No Effective Date File Name No Information Date Activated Date Inactivated Comments 10/04/2024 12:52 PM 10/05/2024 5:08 PM Chief Complaint and Reason for Visit Chief Complaint IUP (Intrauterine Pr egnancy) Reason for Visit 40 weeks gestation o f Status post vaginal delivery Additional Source Comments INFORMATION SOURCE (unrecogn ized section and content) DATE CREATED AUTHOR 02/16/2021 [facility] DATE CREATED AUTHOR AUTHOR'S ORGANIZ ATION 02/24/2022 [facility] DATE CREATED AUTHOR AUTHOR'S ORGANIZ ATION 04/20/2024 [facility] DATE CREATED AUTHOR AUTHOR'S ORGANIZ ATION 04/30/2024 [facility] DATE CREATED AUTHOR AUTHOR'S ORGANIZ ATION 08/26/2024 [facility] DATE CREATED AUTHOR AUTHOR'S ORGANIZ ATION 10/09/2024 [facility] dical Specialists EPIC Care Team (unrecognized sect [...] BE BASED ON THE PRIMARY CLINICAL RECORDS. [facility]. provides no warranty or guarantee of the accuracy or completeness of information in this document.
[2024-10-13 12:57] VITALS: BP 145/96; PULSE 89
[2024-10-13 13:14] VITALS: BP 126/92; PULSE 82
[2024-10-13 13:29] VITALS: BP 133/100; PULSE 88
== END 2024-10-13 13:50 | disposition home or self-care (01) ==
LOC: FBCO 12:52 → FBC 12:53
PROVIDERS: Visit Provider Obstetrics & Gynecology
DX: O24.419 Gestational diabetes mellitus in pregnancy, unspecified control (principal); Z3A.32 32 weeks gestation of pregnancy
CPT/HCPCS: 59025

== ENCOUNTER 2024-10-17 10:12 | Outpatient (OUT) | payer BC, OTHER, SELFPAY ==
--- OUTSIDE RECORDS SUMMARY | 2024-10-03 14:00 | XMS_ITS | Encounter Summary ---
Author Organization [facility] Address [address] [place] [address] Care Team Providers Care Blindmaker Name Role Phone Unavailable Primary Care Provider Unavailabl e Encounter Details Date Type Department Care Team (Latest Contact Info) Description 10/03/2024 2:00 PM EDT Ancillary Procedure [facility] Luis Armando MANZANO [address] [place] [address] Size of fetus inconsistent with dates in second trimester ([facility]) Social History Tobacco Use Types [...] Care Team (Late st Contact Info) Description 10/17/2024 1:30 PM EDT Routine [facility] Luis Armando MANZANO [address] [place] [address] Zack Ortzi DO [address] [place], [place] [id number] documented as of this encounter Procedures Procedure Name Priority Date/Time Associated Diagnosis Comments US OB FOLLOW UP TRANSABDOMINAL APPROACH Routine 10/03/2024 2:16 PM EDT Size of fetus inconsistent with dates in second trimester ([facility]) documented in this encounter Results * US OB follow up transabdominal approach (10/03/2024 2:16 PM EDT) Anatomical Region Laterality Modality Body Ultrasound 10/04/2024 8:08 AM EDT Narrative 10/04/2024 8:08 AM EDT EXAM: US OB FOLLOW UP TRANSABDOMINAL APPROACH HISTORY: Inconsistent size. COMPARISON: Ob ultrasound 07/23/2024. TECHNIQUE: Two-dimensional transabdominal grayscale ultrasound imaging of the pelvis was performed. FINDINGS: Gestation: Single Presentation: Cephalic Cardiac Activity: 153 beats per minute Amniotic Fluid Index: 12.5 cm MEASUREMENTS: BPD: 7.1 cm EGA: 28 weeks 3 days HC: 26.7 cm EGA: 29 weeks 1 days AC: 27.0 cm EGA: 31 weeks 1 days FL: 5.8 cm EGA: 30 weeks 4 days HC/AC Ratio: 0.99 The gestational age by today's ultrasound is 29 weeks 6 days (+/- 15 days gestation). Estimated Weight: 1582 grams, +/- 237 grams ( 3 lb 8 oz). Weight Percentile for gestational age: 26 % IMPRESSION: 1. Single, live intrauterine gestation 30 weeks, 6 days by LMP. Today's ultrasound measurements correlate with a gestational age of 29 weeks 6 days. Estimated weight is 1582 grams, +/- 237 grams ( 3 lb 8 oz) which correlates to 26 %. JANNY by today's ultrasound is 12/13/2024. Interpreted by: Electronically signed by UNA WEBBER II, MD, PHD at 04-Oct-2024 08:06:58 AM [facility] Procedure Note Una Webber MD - 10/04/2024 EXAM: US OB FOLLOW UP TRANSABDOMINAL APPROACH HISTORY: Inconsistent size. COMPARISON: Ob ultrasound 07/23/2024. TECHNIQUE: Two-dimensional transabdominal grayscale ultrasound imaging ofthe pelvis was performed. FINDINGS: Gestation: Single Presentation: Cephalic Cardiac Activity: 153 beats per minute Amniotic Fluid Index: 12.5 cm MEASUREMENTS: BPD: 7.1 cm EGA: 28 weeks 3 days HC: 26.7 cm EGA: 29 weeks 1 days AC: 27.0 cm EGA: 31 weeks 1 days FL: 5.8 cm EGA: 30 weeks 4 days HC/AC Ratio: 0.99 The gestational age by today's ultrasound is 29 weeks 6 days (+/- 15 daysgestation). Estimated Weight: 1582 grams, +/- 237 grams ( 3 lb 8 oz). Weight Percentile for gestational age: 26 % IMPRESSION: 1. Single, live intrauterine gestation 30 weeks, 6 days by LMP. Today'sultrasound measurements correlate with a gestational age of 29 weeks 6days. Estimated weight is 1582 grams, +/- 237 grams ( 3 lb 8 oz)which correlates to 26 %. JANNY by today's ultrasound is 12/13/2024. Interpreted by: Electronically signed by UNA WEBBER II, MD, PHD [id number] 08:06:58 AM [facility] us Gwen SAAVEDRA IMG OB US PROCEDURES Final Resul t documented in this encounter Visit Diagnoses Diagnosis Size of fetus inconsistent with dates in second trimester ([facility]) documented in this encounter
--- OUTSIDE RECORDS SUMMARY | 2024-10-03 14:20 | XMS_ITS | Encounter Summary ---
Author Organization [facility] Address [address] [place] [address] Care Team Providers Care Press Tender Short Goods Name Role Phone Unavailable Primary Care Provider Unavailabl e Reason for Visit * Reason Comments Weight Management Encounter Details Date Type Department Care Team (Late st Contact Info) Description 10/03/2024 2:20 PM EDT Routine GREG Durán OBGYN [address] [place] [address] Zack Ortiz DO [address] [place]án, [facility]11 Third trimester ([facility]); Diet controlled gestational diabetes mellitus (GDM), antepartum ([facility]); Gestational diabetes mellitus (GDM), antepartum, gestational diabetes method of control unspecified ([facility]) Social History Tobacco Use Types Packs/Day Years [...] to check FSBS. Blood Glucose Monitoring Suppl ([employer] Glucometer) w/Device kit 1 kit, Does not [...] nursing note reviewed. Exam conducted with a apple peeler operator present. Vitals: Estimated body mass index is 50.98 kg/m?? as calculated from the following: Height as of 10/28/22: 5' 4 . Weight as of this encounter: 297 lb. BP: (!) 154/100 No LMP recorded. Patient is . ASSESSMENT & PLAN ICD-10-CM 1. Third trimester ([facility]) Z34.93 POCT urinalysis dipstick manually resulted 2. Diet controlled gestational diabetes mellitus (GDM), antepartum ([facility]) O24.410 Return OB: Patient presents today [...] on insulin. Pt to be referred to [facility] for diabetic ed and insulin prescription. [...] Routine [facility] Luis Armando OBGYN [address] [place] [address] Zack Ortiz DO [address] [place] [address] Scheduled Orders Name Type Priority Associated Diagnoses [...]
--- OUTSIDE RECORDS SUMMARY | 2024-10-04 12:23 | XMS_ITS | Encounter Summary ---
Author Organization [facility] Address [id number] [address] 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 Name Role Phone Unavailable Primary Care Provider Unavailabl e Reason for Visit * Reason Comments transported from [facility] for p reeclampsia with se * Auth/Cert (Routine) Specialty Diagnoses / Procedures Referred By Jesus lau Referred To Contact Diagnoses Preeclampsia Severe preeclampsia Binh Yung MD [address] [place] [address], [address] [place] [address] Phone: tel: fax: Referral ID Status Reason Start Date Expiration Date Visits Re quested Visits Authorized [id number] 1 1 Encounter Details Date Type Department Care Team (Latest Contact Info) Description 10/04/2024 12:23 PM EDT - 10/05/2024 3:01 PM EDT Hospital Encounter [facility] - GEN 3 Antepartum [address] [place] [address] Binh Yung MD [address] [place] [address], [address] [place], [place] [id number] Discharge Disposition: Left Against Medical Advice or Discontinued Care Social History Tobacco Use Types Packs/Day Years Used Date Smoking Tobacco: Never Assessed Childcare Answer Date Recorded Childcare Unknown 07/25/2018 Employment Answer Date Recorded Employment Unknown 07/25/2018 Estimated Date of Delivery Comme nts Yes 12/06/2024 Based on Ultraso und Sex and Gender Information Value Date Recorded Sex Assigned at Not on file Legal Sex Female 8:14 PM EDT Gender Identity Not on file Sexual Orientation Not on file documented as of this encounter Last Filed Vital Signs Vital Sign Reading Time Taken Comments Blood Pressure 143/90 10/05/2024 12:00 PM EDT Pulse 90 10/05/2024 12:00 PM EDT Temperature 36.5 C (97.7 F) 10/05/2024 7:00 AM EDT Respiratory Rate 16 10/05/2024 8:00 AM EDT Oxygen Saturation 99% 10/05/2024 9:00 AM EDT Inhaled Oxygen Concentration - - Weight 131.5 kg (290 lb) 10/04/2024 12:24 PM EDT Height 165.1 cm (5' 5 ) 10/04/2024 12:24 PM EDT Body Mass Index 48.26 10/04/2024 12:24 PM EDT documented in this encounter Functional Status documented as of this encounter Medications at Time of Discharge albuterol (PROVENTIL HFA;VENTOLIN HFA) 90 mcg/actuation inhaler Inhale 2 puffs every 6 (six) hours as needed for wheezing. labetaloL (NORMODYNE) 200 mg tablet Take 1 tablet (200 mg total) by mouth every 8 (eight) hours. 90 tablet 3 10/05/2024 vit,codi 74/iron/folic ( VITAMIN 1+1 ORAL) Take 1 tablet by mouth in the morning. documented as of this encounter Progress Notes * Julio Briceno MD - 10/05/2024 6:39 AM EDT Antepartum Progress Note Subjective: Sabrina Tovar is a 29 y.o. with an Estimated Date of Delivery: 12/06/24 at 31w1d. No acute events overnight. Patient doing well overall. Pt denies headache, blurry vision, shortness of breath, chest pain, RUQ pain, lower extremity swelling. Patient denies contractions, denies loss of fluid, denies vaginal bleeding, reports movement. Vitals: Vitals: 10/05/24 0300 10/05/24 0400 10/05/24 0500 10/05/24 0600 BP: 126/76 146/86 125/71 143/81 Pulse: 82 95 76 80 Resp: 16 17 16 16 Temp: 36.4 ??C (97.5 ??F) TempSrc: Oral SpO2: 98% 96% 95% 99% Weight: Height: Physical Exam: Blood pressure 143/81, pulse 80, temperature 36.4 ??C (97.5 ??F), temperature source Oral, resp. rate 16, height 165.1 cm (5' 5 ), weight 131.5 kg (290 lb), SpO2 99%. General: Patient is AAO X 3 Abd: soft, no guarding, non tender, no rebound, and not distended, gravid Ext: no edema FHT: Baseline Rate A: 125 bpm, moderate variability, present acceleration, absent decelerations TOCO: none Current Medications: Current Facility-Administered Medications: calcium gluconate injection 1,000 mg, 1,000 mg, intravenous, PRN, Kay Levi MD dextrose (GLUTOSE) 40 % gel 15 g, 15 g, oral, PRN, Kay Levi MD dextrose 5 % (D5W) infusion, 100 mL/hr, intravenous, Continuous PRN, Kay Levi MD dextrose 50 % in water (D50W) 50% solution 25 mL, 25 mL, intravenous, PRN, Kay Levi MD diphth,pertus(acell),tetanus (BOOSTRIX) injection 0.5 mL, 0.5 mL, intramuscular, Once, Evon MarieCox, DO glucagon HCL injection 1 mg, 1 mg, intramuscular, PRN, Kay Levi MD insulin lispro (HumaLOG) injection 2-16 Units, 2-16 Units, subcutaneous, Q4H, Kay Levi MD labetaloL (NORMODYNE) tablet 200 mg, 200 mg, oral, Q8H JUDY, Hermelinda Emanuel MD, 200 mg at 10/05/24 0610 lactated ringers infusion, 250 mL/hr, intravenous, Continuous PRN, Kay Levi MD lactated ringers infusion, 75 mL/hr, intravenous, Continuous, Yvon Vanegas MD, Last Rate: 75 mL/hr at 10/05/24 0600, Rate Verify at 10/05/24 0600 magnesium sulfate infusion 20 grams/500 mL in iso-osmotic water (40 mg/mL premix), 2 g/hr, intravenous, Continuous, Kay Levi MD, Last Rate: 50 mL/hr at 10/04/242116, 2 g/hr at 10/04/242116 Laboratory Results: Intake/Output Summary (Last 24 hours) at 10/05/2024 0640 Last data filed at 10/05/2024 0600 Gross per 24 hour Intake 2102.73 ml Output 4950 ml Net -2847.27 ml Lab Results Component Value Date WBC 10.9 10/04/2024 HGB 12.6 10/04/2024 HCT 37.0 10/04/2024 MCV 80 10/04/2024 PLT 268 10/04/2024 Lab Results Component Value Date GLU 119 (H) 10/05/2024 CALCIUM 8.3 (L) 10/04/2024 K 4.2 10/04/2024 CO2 19 (L) 10/04/2024 BUN 8 10/04/2024 CREATININE 0.73 10/04/2024 Lab Results Component Value Date ALBUMIN 3.4 10/04/2024 AST 9 10/04/2024 ALT 5 10/04/2024 TOTALPROTEI 6.6 10/04/2024 A/P Sabrina Tovar, 29 y.o. with an Estimated Date of Delivery: 12/06/24 at 31w1d, admitted with preeclampsia with SF. 1. Preeclampsia with SF - BP <150/100 overnight, 143/81 this morning - Continue IV magnesium sulfate, evaluate to discontinue at 0900 - Continue PO labetalol 200mg q8h - HELLP labs wnl UPCR 0.50 - UOP: 3550mL/12h Strict I&Os - MFM consulted, appreciate recommendations - Continue inpatient management until delivery at 34 weeks, or sooner if indicated 2. GDMA1 - BS checks q4h while CLD - BS 127>131>147>133>119 3. Routine antepartum care - CLD - cEFM - Rh positive - ANCS 10/04-10/05 - MFM US 10/04: cephalic, posterior, EFW 1,578g (23%), DVP 3.6cm Julio Briceno MD [employer] W[employer] Operator Resident, PGY-4 Cosigned by Aleena Mills MD at 10/05/2024 9:26 AM EDT Associated attestation - Aleena Mills MD - 10/05/2024 9:26 AM EDT Maternal- Medicine Attending: We discussed Sabrina Tovar case at morning resident checkout and OB inpatient attending round. I have reviewed the patient's records then I have seen and examinedthis patient and discussed her history, physical exam, and assessment/plan with the residents, as well as coordination of care with her care team. I was directly involved in the management and treatment plan of the patient. I reviewed the resident's note. Additional Notes/Findings: Preeclampsia with severe features GDMA1 Stable HELLP labs this morning Blood pressure has been controlled now on p.o. labetalol The patient is completing her magnesium sulfate for seizure prophylaxis The patient states that she feels well and wants to go home. Pathophysiology of preeclampsia with severe features was discussed with the patient in great detailtoday again. Current guidelines of standard of care is inpatient management. Increased risk of severe maternal morbidity with an end-organ disease and mortality discussed as well as risks including but not limited to risks of prematurity, NICU admission, risk of placental abruption, placenta insufficiency, stillbirth reviewed. I discussed with the patient that if she leaves then this is against medical advice and she is putting herself and the fetus at risk of significant morbidity and mortality. Delivery 34w0d Indications for delivery less than 34 weeks gestation include Conditions Precluding Expectant Management Maternal: Uncontrolled severe-range blood pressures (persistent systolic blood pressure 160 mm Hg or more or diastolic blood pressure 110 mm Hg or more not responsive to antihypertensive medication Persistent headaches, refractory to treatment Epigastric pain or right upper pain unresponsive to repeat analgesics Visual disturbances, motor deficit or altered sensorium Stroke Myocardial infarction HELLP syndrome New or worsening renal dysfunction (serum creatinine greater than 1.1 mg/dL or twice baseline) Pulmonary edema Eclampsia Suspected acute placental abruption or vaginal bleeding in the absence of placenta previa : Abnormal testing Fetus without expectation for survival at the time of maternal diagnosis (eg, lethal anomaly, extreme prematurity) Persistent reversed end-diastolic flow in the umbilical artery Aleena Mills MD, FACOG (she/hers) Maternal- Medicine [facility] [address] [place] [address] This document was created with [employer] technology. Though I make every effort to review the dictation as it is transcribed, on occasion the spoken word can be misinterpreted by the technology leading to inappropriate words, phrases, or sentences. This note is addressed to the requesting provider as a consultation for clinical guidance. Specificmedical abbreviations are occasionally used and those are generally approved by the [place]?Board of?Obstetrics and?Gynecology?as well as?[place]???s abbreviations. The above plan of care was based solely on the diagnoses for which a consultation was requested. ?More frequent testing may be indicated based on her other medical/obstetrical conditions. The management of other or medical conditions is beyond the scope of requested consultation and will c ontinue to be followed by the primary personnel director or primary care provider. * Hermelinda Emanuel MD - 10/05/2024 6:27 AM EDT MFM Antepartum Progress Note Sabrina Tovar is a 29 y.o. with an Estimated Date of Delivery: 12/06/24 at 31w1d wks. No acute events overnight. Pt is doing well overall. She reports her headache yesterday resolved with tylenol. She denies RUQ, SOB, chest pain, LE edema, or vision changes. Patient denies contractions, denies loss of fluid, denies vaginal bleeding, reports movement. Of note, patient states that she is ready to go home and that she feels better than last week so she would like to follow up outpatient. I reiterated the reasons why we recommend inpatient stay anddiscussed the risks of seizure, stroke, heart attack, to her or baby. Sabrina continues to endorse wanting to go home and follow up with her regular OB. Vitals: Temp: [36.4 ??C (97.5 ??F)-36.8 ??C (98.3 ??F)] 36.4 ??C (97.5 ??F) Pulse: [72-95] 80 Resp: [16-18] 16 Blood Pressure : (125-159)/(71-106) 143/81 SpO2: [95 %-99 %] 99 % O2 Device: None (Room air) Current Medications: Current Facility-Administered Medications: calcium gluconate injection 1,000 mg, 1,000 mg, intravenous, PRN, Kay Levi MD dextrose (GLUTOSE) 40 % gel 15 g, 15 g, oral, PRN, Kay Levi MD dextrose 5 % (D5W) infusion, 100 mL/hr, intravenous, Continuous PRN, Kay Levi MD dextrose 50 % in water (D50W) 50% solution 25 mL, 25 mL, intravenous, PRN, Kay Levi MD diphth,pertus(acell),tetanus (BOOSTRIX) injection 0.5 mL, 0.5 mL, intramuscular, Once, Evon MarieCox, DO glucagon HCL injection 1 mg, 1 mg, intramuscular, PRN, Kay Levi MD insulin lispro (HumaLOG) injection 2-16 Units, 2-16 Units, subcutaneous, Q4H, Kay Levi MD labetaloL (NORMODYNE) tablet 200 mg, 200 mg, oral, Q8H JUDY, Hermelinda Emanuel MD, 200 mg at 10/05/24 06 lactated ringers infusion, 250 mL/hr, intravenous, Continuous PRN, Kay Levi MD lactated ringers infusion, 75 mL/hr, intravenous, Continuous, Yvon Vanegas MD, Last Rate: 75 mL/hr at 10/05/24 06, Rate Verify at 10/05/24599 magnesium sulfate infusion 20 grams/500 mL in iso-osmotic water (40 mg/mL premix), 2 g/hr, intravenous, Continuous, Kay Levi MD, Last Rate: 50 mL/hr at 10/04/242116, 2 g/hr at 10/04/242116 Laboratory Results: Intake/Output Summary (Last 24 hours) at 10/05/2024626 Last data filed at 10/05/2024599 Gross per 24 hour Intake 2102.73 ml Output 4950 ml Net -2847.27 ml Lab Results Component Value Date WBC 10.9 10/04/2024 HGB 12.6 10/04/2024 HCT 37.0 10/04/2024 MCV 80 10/04/2024 PLT 268 10/04/2024 Lab Results Component Value Date GLU 119 (H) 10/05/2024 CALCIUM 8.3 (L) 10/04/2024 K 4.2 10/04/2024 CO2 19 (L) 10/04/2024 BUN 8 10/04/2024 CREATININE 0.73 10/04/2024 Lab Results Component Value Date ALBUMIN 3.4 10/04/2024 AST 9 10/04/2024 ALT 5 10/04/2024 TOTALPROTEI 6.6 10/04/2024 Physical Exam: General: Patient is AAO X 3 Abd: soft, no guarding, non tender, no rebound, and not distended, gravid not tender Ext: edema and negative homans, 2+ DTR at patella bilaterally FHT: 120 baseline, moderate variability, present acceleration, absent decelerations TOCO: None A/P 29 y.o. with an Estimated Date of Delivery: 12/06/24 at 31w1d wks presents as a transfer from [facility] with severe features (BP) Overnight BPs non severe Continue 200mg TID labetalol Continue magnesium sulfate and reevaluate at 24hr to discontinue S/p labetalol IV 20/40mg @ OSH Reports headache resolved with tylenol Denies current Pre E symptoms UPCR 0.5, HELLP labs wnl We recommend inpatient until delivery at 34wks unless indicated sooner. Gestational Diabetes BG checks q4 hrs w/ ISS while CLD BS 127>131>147>133>119 Routine antepartum care: Rh+ GBS pending ANCS 10/04-10/05 cEFM CLD while on mag, will start diabetic diet after mag discontinued MFM US 10/04: cephalic, posterior, EFW 1,578g (23%), DVP 3.6cm DVT ppx SCDs Ricarda Novak, MS4 Resident Attestation I have seen and evaluated the patient, and have also reviewed the documentation above. I have repeated and performed the longoria portions of the physical exam and concur with the student's findings. I agree with the plan as noted above with any changes made as necessary. Hermelinda Emanuel MD [employer] Operator Resident PGY-3 10/05/24 7:26 AM Cosigned by Verona Mortensen MD at 10/05/2024 3:17 PM EDT Associated attestation - Balbina, Verona Merida MD - 10/05/2024 3:17 PM EDT Seen and agree Note reviewed Afebrile, VSS Magnesium to stop at 9am Discussed importance of continuing in-patient stay. Patient not sure she will stay and does not agree with delivery at 34 weeks All questions answered and strongly recommended that she stay as in-patient documented in this encounter H&P Notes * Kay Levi MD - 10/04/2024 1:31 PM EDT ObGyn History and Physical Chief Complaint: Preeclampsia SUBJECTIVE HPI Sabrina Tovar is a 29 y.o. @ 31w0d who presents as a transfer from [place] with preeclampsia with severe features by blood pressure criteria. She states that she went for a visit and had elevated blood pressures - she was told to go to the hospital. At the outside hospital, patient had severe range pressures and was started on labetalol po 200 mg and received labetalol IV 20/4 mg. HELLP labs were normal and UPCR was 0.47. Patient was started on magnesium sulfate 4g bolusfor seizure prophylaxis and received first dose of ANCS. She was transported to [facility] for further management. Patient is tearful. Patient denies contractions, vaginal bleeding, loss of fluid, abnormal vaginal discharge. Reports good movement. Endorses nausea and a dull throbbing 3/10 frontal headache. She was not given any medication at OSH for headache. Denies blurry vision, RUQ pain, chest pain, shortness of breath, decreased urine output, dizziness, seizures, or loss of consciousness. She does reports recent increase in swelling of bilateral lower extremities. Patient was diagnosed with gestational diabetes and was supposed to be started on insulin soon. Shedenies hx of diabetes with last or outside of . She denies history of gestational hypertension or history of preeclampsia with prior . complicated by: 1. Preeclampsia with SF (BP) 2. Gestational diabetes 3. Intermittent asthma 4. Obesity Review of Systems Constitutional: Negative for chills and fever. Eyes: Negative for visual disturbance. Cardiovascular: Positive for leg swelling. Negative for irregular heartbeat. Respiratory: Negative for shortness of breath. Gastrointestinal: Negative for constipation, diarrhea, nausea and vomiting. Genitourinary: Negative for dysuria. Neurological: Positive for headaches. Allergies No Known Allergies ObGyn Hx OB History Para Term AB Living 2 1 1 0 0 1 SAB IAB Ectopic Multiple Live Births 0 0 0 0 1 # Outcome Date GA Lbr Darinel/2nd Weight Sex Type Anes PTL Lv 2 Current 1 Term 09/12/21 40w0d 2.948 kg F EPI N SUGAR Medical Hx Past Medical History: Diagnosis Date Asthma Surgical Hx No past surgical history on file. Family Hx History reviewed. No pertinent family history. Psychosocial Social History Socioeconomic History Marital status: Single Substance and Sexual Activity Drug use: Never OBJECTIVE Vitals Vitals: 10/04/24 1224 10/04/24 1310 10/04/24 1400 10/04/24 1500 BP: (!) 136/95 (!) 144/92 (!) 159/106 135/82 Pulse: 79 78 77 72 Resp: 18 18 18 18 Temp: 36.8 ??C (98.3 ??F) TempSrc: Oral SpO2: 96% 98% 96% Weight: 131.5 kg (290 lb) Height: 165.1 cm (5' 5 ) Physical Exam Constitutional: General: She is not in acute distress. Appearance: She is obese. She is not ill-appearing. Comments: tearful HENT: Head: Normocephalic and atraumatic. Cardiovascular: Rate and Rhythm: Normal rate. Pulmonary: Effort: Pulmonary effort is normal. No respiratory distress. Abdominal: Palpations: Abdomen is soft. Tenderness: There is no abdominal tenderness. There is no guarding or rebound. Comments: Gravid Musculoskeletal: General: Normal range of motion. Cervical back: Normal range of motion. Neurological: General: No focal deficit present. Mental Status: She is alert and oriented to person, place, and time. Skin: General: Skin is warm and dry. FHT: Baseline Rate: 125 bpm, moderate variability, present acceleration, absent decelerations [place]: none ASSESSMENT & PLAN Sabrina Tovar is a 29 y.o. @ 31w0d who presents as a transport from [place] with preeclampsia with severe features by severe range blood pressures. Preeclampsia with SF (BP) - BP elevated, however not severe range pressures - Continue magnesium sulfate for seizure prophylaxis, we will evaluate for discontinuation in 24hr - S/p labetalol 200 mg PO, labetalol 20/40mg IV at OSH - HELLP labs wnl UPCR 0.47, will obtain labs q12h - Strict I/Os, pt refusing morris - Patient reports 04/23 headache, f/u after tylenol and caffeine - Continue labetalol 200 mg TID, titrate as [id number] GDM - BS q4h while on CLD - ISS, prn Routine antepartum care - CLD - cEFM - ANCS 10/04-10/05 - OSH US 10/03: cephalic, SCOOTER 12.5cm, EFW 1582g (26%) - MFM consult and USN pending, appreciate recommendations - GBS unknown - Rh+ - DVT ppx: SCDs - Inpatient until delivery at 34 weeks or sooner if indicated Beverly Hernández, Third Year Medical Student 10/04/24 Resident Attestation I have seen and evaluated the patient, and have also reviewed the documentation above. I have repeated and performed the longoria portions of the physical exam and concur with the student's findings. I agree with the plan as noted above with any changes made as necessary. Kay Levi MD [employer] W[employer] Operator Resident PGY-2 10/04/24 5:23 PM Cosigned by Binh Yung MD at 10/05/2024 3:08 PM EDT Associated attestation - Binh Yung MD - 10/05/2024 3:08 PM EDT Attending Attestation: I saw the patient. I performed the critical/longoria portions of the service. I was directly involved inthe management and treatment plan of the patient. I reviewed the resident's note. . Additional Notes/Findings: Results from last 7 days Lab Units 10/05/24 0624 10/04/24 1648 10/04/24 1302 WBC x10E9/L 14.8* 10.9 11.0 HEMOGLOBIN g/dL 12.8 12.6 12.9 HEMATOCRIT % 37.5 37.0 38.1 PLATELETS X10E9/L 276 268 262 Results from last 7 days Lab Units 10/05/24 0624 10/04/24 1648 POTASSIUM mmol/L 4.0 4.2 CHLORIDE mmol/L 105 106 CO2 mmol/L 20* 19* BUN mg/dL 8 8 CREATININE mg/dL 0.64 0.73 CALCIUM mg/dL 7.8* 8.3* ALK PHOS U/L 114 119 ALT U/L 5 5 AST U/L 8 9 001 at 31 weeks 0 days transfer from outside hospital with diagnosis of preeclampsia severe features patient has already been started on magnesium sulfate and received short-acting labetalol forsevere range blood pressures Plan on admission will be to continue magnesium sulfate for maternal seizure prophylaxis Goal for blood pressures less than 160/110 Initiate complete steroid course Consultations included Maternal- medicine child protective services social worker and NICU team No indication for delivery at this point documented in this encounter Consult Notes * Hermelinda Emanuel MD - 10/04/2024 2:49 PM EDTAssociated Order(s): IP CONSULT TO MATERNAL MEDICINE Maternal Medicine Consultation Chief Complaint: transfer for PreE w/ SF SUBJECTIVE Sabrina Tovar is a 29 y.o. with an Estimated Date of Delivery: 12/06/24 at 31w0d wks who presents as a transfer from [facility] with preeclampsia w/ SF (BP criteria). She reports she went to her routine visit yesterday, and had elevated BP so her provider sent her to [facility] for further evaluation. Her blood pressure remained elevated, and she was kept overnight. She had multiple severe range BPs for which she received 20/40mg IV labetalol, and was started on Labetalol 200mg PO TID. At [place], her UPCR was 0.47 and other HELLP labs were wnl. She was then given ANCS, started on 4g magnesium sulfate bolus, and transferred to [facility]. At bedside today, pt reports a dull headache that began right after transport this morning and she rates it a 3/10. She endorses usually drinking caffeine, but has not had any today. She did not receive tylenol for the headache. She also endorses LE swelling that has been present for the past couple weeks in her . She denies any changes in vision, RUQ pain, SOB or chest pain. Of note, she was recently diagnosed with gestational diabetes and was going to be started on insulin with a referral to see [facility] diabetes management. She denies any history of preeclampsia, gestational hypertension, or gestational diabetes in her previous . Patient denies contractions, denies loss of fluid, denies vaginal bleeding, reports movement. Complicated By: Preeclampsia with SF (BP) Gestational Diabetes Obesity Review of Systems - 14-point review of systems negative except as noted above Allergies No Known Allergies ObGyn Hx OB History Para Term AB Living 2 1 1 0 0 1 SAB IAB Ectopic Multiple Live Births 0 0 0 0 1 # Outcome Date GA Lbr Darinel/2nd Weight Sex Type Anes PTL Lv 2 Current 1 Term 09/12/21 40w0d 2.948 kg F EPI N SUGAR Medical Hx Past Medical History: Diagnosis Date Asthma Surgical Hx No past surgical history on file. Family Hx History reviewed. No pertinent family history. - Specifically, she denies family history and personal history of blood clot Psychosocial Social History Socioeconomic History Marital status: Single Substance and Sexual Activity Drug use: Never - Smoking status: never OBJECTIVE Vitals Vitals: 10/04/24 1224 10/04/24 1310 10/04/24 1400 BP: (!) 136/95 (!) 144/92 (!) 159/106 Pulse: 79 78 77 Resp: 18 18 18 Temp: 36.8 ??C (98.3 ??F) TempSrc: Oral SpO2: 96% 98% Weight: 131.5 kg (290 lb) Height: 165.1 cm (5' 5 ) Physical Exam: General: Patient is AAO X 3 Abd: soft, no guarding, non tender, no rebound, and not distended, gravid Ext: no edema FHT: 120 baseline, moderate variability, present acceleration, absent decelerations TOCO: none Labs ABO/Rh: Lab Results Component Value Date ABOINTEP A 10/04/2024 RHINTEP Positive 10/04/2024 Group B Strep: No results found for: CULTURE Rubella: Lab Results Component Value Date RUBELLAIMMU immune 2024 Hepatitis B Surface Antigen: Lab Results Component Value Date HEPBSAG negative 2024 HIV: Lab Results Component Value Date HIV4 nonreactive 2024 Total Syphilis: No results found for: SYPHILISTOT ASSESSMENT & PLAN Sabrina Tovar is a 29 y.o. @ 31w0d who presents as a transfer from [place] with Preeclampsia with SF. Preeclampsia with severe features (BP criteria) BP since arrival have been nonsevere Meds: 200mg TID labetalol -recently started Continue magnesium sulfate -will evaluate at 24hr to discontinue S/p labetalol IV 20/40mg @ OSH Pt reports 04/23 headache -Will provide Caffeine & tylenol & reevaluate later UPCR 0.47, HELLP labs wnl Gestational diabetes BG checks q4 hrs while CLD Sliding scale insulin Will likely need lantus/humalog once restarted on diabetic diet Routine Antepartum Care Rh+ GBS unknown ANCS 10/04-10/05 cEFM & CLD while on magnesium Growth: OSH US 10/03: cephalic, SCOOTER 12.5cm, EFW 1582g (26%) -MFM US pending DVT ppx SCDs Plan: Inpatient until delivery at 34wks unless indicated sooner Ricarda Novak, MS4 Resident Attestation I have seen and evaluated the patient, and have also reviewed the documentation above. I have repeated and performed the longoria portions of the physical exam and concur with the student's findings. I agree with the plan as noted above with any changes made as necessary. Hermelinda Emanuel MD [employer] Winding Operator Resident PGY-3 10/04/24 2:49 PM Cosigned by Aleena Mills MD at 10/04/2024 5:22 PM EDT Associated attestation - Aleena Mills MD - 10/04/2024 5:22 PM EDT Maternal- Medicine Attending: We discussed Sabrina Tovar case at morning resident checkout and OB inpatient attending round. I have reviewed the patient's records then I have seen and examinedthis patient and discussed her history, physical exam, and assessment/plan with the residents, as well as coordination of care with her care team. I was directly involved in the management and treatment plan of the patient. I reviewed the resident's note. Additional Notes/Findings: Preeclampsia with severe features GDMA1 - continue to trend blood pressures - started on labetalol 200 mg t.i.d. - magnesium sulfate for 24 hours - seizure prophylaxis - monitor intake and output - treat the patient headache - MFM ultrasound - corticosteroids has been initiated - monitor patient blood glucoses q.4 hours and cover with the insulin sliding scale Pathophysiology of preeclampsia with severe features was discussed with the patient in detail. Necessity for inpatient management with timing of delivery at 34 weeks and 0 days unless a contraindication to expectant management develops reviewed. Increased risk of severe maternal morbidity with an end-organ disease and mortality discussed as well as risks including but not limited to risks of prematurity, NICU admission, risk of placental abruption, placenta insufficiency, growth restriction, stillbirth reviewed. Long-term risk of cardiovascular disease discussed. Delivery 34w0d Indications for delivery less than 34 weeks gestation include Conditions Precluding Expectant Management Maternal: Uncontrolled severe-range blood pressures (persistent systolic blood pressure 160 mm Hg or more or diastolic blood pressure 110 mm Hg or more not responsive to antihypertensive medication Persistent headaches, refractory to treatment Epigastric pain or right upper pain unresponsive to repeat analgesics Visual disturbances, motor deficit or altered sensorium Stroke Myocardial infarction HELLP syndrome New or worsening renal dysfunction (serum creatinine greater than 1.1 mg/dL or twice baseline) Pulmonary edema Eclampsia Suspected acute placental abruption or vaginal bleeding in the absence of placenta previa : Abnormal testing Fetus without expectation for survival at the time of maternal diagnosis (eg, lethal anomaly, extreme prematurity) Persistent reversed end-diastolic flow in the umbilical artery The patient is in agreement with the plan of care. I personally spent over half of a total 60 minutes in counseling and discussion with the patient and coordination of care as described above. Aleena Mills MD, FACOG (she/hers) Maternal- Medicine [facility] [address] [facility] [address] [place] [address] This document was created with [employer] technology. Though I make every effort to review the dictation as it is transcribed, on occasion the spoken word can be misinterpreted by the technology leading to inappropriate words, phrases, or sentences. This note is addressed to the requesting provider as a consultation for clinical guidance. Specificmedical abbreviations are occasionally used and those are generally approved by the [place]?Board of?Obstetrics and?Gynecology?as well as?Antonia???s abbreviations. The above plan of care was based solely on the diagnoses for which a consultation was requested. ?More frequent testing may be indicated based on her other medical/obstetrical conditions. The management of other or medical conditions is beyond the scope of requested consultation and will c ontinue to be followed by the primary personnel director or primary care provider. documented in this encounter Nursing Notes * Racheal Blanco RN - 10/05/2024 2:59 PM EDT Patient left AMA to home in stable condition. RN discussed with patient warning signs to come back to OB emergency. Questions and concerns answered. Patient ambulated off unit per self. * Estrella Vazquez RN - 10/04/2024 4:03 PM EDT Radha at [facility] updated on patients arrival, current status, and plan of care. documented in this encounter Miscellaneous Notes * Plan of Care - Betty Lassiter RN - 10/04/2024 8:28 PM EDT Problem: Pain Goal: Patient goal is pain score less than 4, able to rest, and participant in treatment plan as appropriate Description: INTERVENTIONS: 1. Encourage patient or legal solar manufacturer's representative to report early pain and ask for pain medicine when needed 2. Assess pain using appropriate pain scale and include the scale used when documenting 3. Administer analgesics based on type and severity of pain and evaluate response within appropriate time frame 4. Implement non-pharmacological measures as appropriate and evaluate response 5. Consider cultural and social influences on pain and pain management 6. Notify LIP if interventions ineffective or patient reports new pain 7. Monitor vital signs including pulse ox, end-tidal CO2 based on pain intervention 8. Reassess pain per policy 9. Teach patient or legal solar manufacturer's representative interventions for comforting Outcome: Progressing Note: Evaluation of progress towards goal: Patient verbalizes tolerable level of pain at this time.Pain medications will be given as needed. Problem: Safety Goal: Patient will be injury free during hospitalization Description: INTERVENTIONS: 1. Assess patient's risk for falls and implement fall prevention plan of care per policy 2. Provide and maintain a safe environment 3. Proper use of double Identifiers 4. Medication administration using the 5 rights 5. Hand hygiene 6. Specimens are labeled at the bedside 7. Instruct patient/ patient solar manufacturer's representative about use of safety devices 8. Include patient/ patient solar manufacturer's representative in decisions related to safety Outcome: Progressing Note: Evaluation of progress towards goal: Safe environment maintained. Medications administered using 5 rights. Fall prevention plan implemented as needed. Problem: Infection Goal: Absence of infection during hospitalization Description: INTERVENTIONS 1. Assess and monitor for signs and symptoms of infection. 2. Monitor lab/diagnostic results. 3. Monitor all insertion sites i.e., indwelling lines, tubes and drains. 4. Monitor endotracheal (as able) and nasal secretions for changes in amount and color. 5. Administer medications as ordered. 6. Instruct and encourage patient and family to use good hand hygiene technique. 7. Identify and instruct patient/patient solar manufacturer's representative in use of appropriate isolation precautionsfor identified infection/symptoms. 8. Provide and discuss with patient/patient solar manufacturer's representative on educational MDRO sheet. 9. Encourage and monitor nutritional status daily and consult assistant director of residence life if indicated. 10. Implement neutropenic guidelines as needed. Outcome: Progressing Note: Evaluation of progress towards goal: Patient is free from signs and symptoms of infection. Problem: Knowledge Deficit Goal: Patient/patient solar manufacturer's representative demonstrates understanding of disease process, treatment plan,medications, and discharge instructions Description: INTERVENTIONS 1. Complete learning assessment and assess knowledge base 2. Provide teaching at level of understanding 3. Provide teaching via preferred learning method(s) Outcome: Progressing Note: Evaluation of progress towards goal: Teaching provided as needed at patient's level of understanding. Problem: Discharge Planning Goal: Discharge to post-acute care, other facility, or home with appropriate resources Description: Patient's goal is: INTERVENTIONS 1. Conduct assessment to determine patient/family and health care team treatment goals, and need for post-acute services based on payer coverage, community resources, and patient preferences, and barriers to discharge 2. Coordinate with Social work, Care Navigation, and Utilization Review to arrange appropriate level of services according to patient's needs based on patient preference and payer coverage in collaboration with the physician and health care team 3. Address psychosocial, clinical, and financial barriers to discharge as identified in assessment in conjunction with the patient/family and health care team 4. Consult appropriate ancillary services (i.e.. PT/OT/ST, etc) as needed 5. Communicate with and update the patient/family, physician, and health care team regarding progress on the discharge plan 6. Identify discharge learning needs (meds, wound care, etc). 7. Arrange for needed discharge transportation as appropriate Outcome: Progressing Note: Evaluation of progress towards goal: Appropriate consults done as needed. Discharge learning needs identified. Problem: Moderate - High Risk Fall Score Description: [place] Fall Score of =/> 25 or indicated by [facility] Assessment Goal: Patient should be free from fall Description: Interventions: 1. [place] to environment 2. Hourly rounds addressing the 4 P's (Pain, Positioning, Possessions, Potty) 3. Clear area of hazards (spills, clutter, electrical cords, unnecessary equipment) 4. Place equipment (bed & TV controls, call light, phone, urinal) within reach 5. Encourage patient to wear glasses and hearing aides as appropriate 6. Maintain bed in lowest position 7. Lock wheels on bed/wheelchair 8. Provide adequate lighting, including night light 9. Assess need for additional bedding, food/fluids, pain med's prior to sleep/routinely 10. Provide gripper slippers or personal non-skid footwear 11. Teach patient and patient solar manufacturer's representative to maintain environment for safety and engage in all aspects of fall prevention program 12. Remind patient to call for help before getting out of bed 13. Initiate bed/chair/exit alarms supportive devices as appropriate, (chair wedge, no-skid floor mat, raised edge mattress, hip protectors) 14. Locate patient bed assignment for optimal visualization 15. Evaluate and identify Safe Patient Handling Equipment needs 16. Provide supervision when out of bed or chair 17. Utilize gait belt as needed to assist with ambulation 18. Place adaptive equipment (cane, walker) within reach 19. Request patient solar manufacturer's representative bring adaptive equipment/mobility aids from home or obtain and provide as needed 20. Consult pharmacy regarding effects of med's affecting mobility, cognition, and alternatives 21. Obtain physician order for PT if risk factors associated with mobility are present 22. Obtain physician order for OT as appropriate 23. Utilize diversional activities 24. Educate patient and patient solar manufacturer's representative how to maintain a safe environment during visitationtimes (notify nurse prior to leaving bedside) 25. Consider appropriateness of medical or non-medical affairs specialist 26. Set up voiding schedule as appropriate (every 2 hours) Outcome: Progressing Note: Evaluation of progress towards goal: Patient understands fall prevention plan. Problem: Hypertension during Goal: Patient will verbalize decreased headache Description: INTERVENTION 1. Assess headache pain Outcome: Progressing Note: Evaluation of progress towards goal: Pt denies headache at this time. Goal: Patient will verbalize understanding of effects of medicatio Description: INTERVENTION 1. Educate patient on medications she is taking Outcome: Progressing Note: Evaluation of progress towards goal: Medications given as ordered. Education provided with administration. Pt expresses understanding. Additional Comments: documented in this encounter Plan of Treatment Upcoming Encounters Date Type Department Care Team (Late st Contact Info) Description 10/18/2024 1:30 PM EDT Support Visit Maternal- Medicine at [facility] [address] [place] [id number] Krista Cruz RN [address] [facility], [address] [place] [id number] Laura Weaver LD documented as of this encounter Procedures Procedure Name Priority Date/Time Associated Diagnosis Comments BEDSIDE GLUCOSE Routine 10/05/2024 11:55 AM EDT LDH Routine 10/05/2024 6:24 AM EDT CBC (NO DIFF) Routine 10/05/2024 6:24 AM EDT URIC ACID Routine 10/05/2024 6:24 AM EDT COMPREHENSIVE METABOLIC PANEL Routine 10/05/2024 6:24 AM EDT BEDSIDE GLUCOSE Routine 10/05/2024 6:07 AM EDT BEDSIDE GLUCOSE Routine 10/05/2024 2:03 AM EDT BEDSIDE GLUCOSE Routine 10/04/2024 10:03 PM EDT STREP B SCREEN Routine 10/04/2024 8:55 PM EDT BEDSIDE GLUCOSE Routine 10/04/2024 6:13 PM EDT LDH Routine 10/04/2024 4:48 PM EDT REPEATED ABORH Routine 10/04/2024 4:48 PM EDT CBC (NO DIFF) Routine 10/04/2024 4:48 PM EDT URIC ACID Routine 10/04/2024 4:48 PM EDT COMPREHENSIVE METABOLIC PANEL Routine 10/04/2024 4:48 PM EDT PROTEIN CREAT RATIO Routine 10/04/2024 3 :40 PM EDT BUPRENORPHINE, URINE, QUALITATIVE Routine 10/04/2024 3:40 PM EDT FENTANYL, URINE QUALITATIVE Routine 10/04/2024 3:40 PM EDT DRUG SCREEN, URINE Routine 10/04/2024 3: 40 PM EDT US MFM COMPREHENSIVE ANATOMIC SURVEY Routine 10/04/2024 3:20 PM EDT BEDSIDE GLUCOSE Routine 10/04/2024 2:20 PM EDT SYPHILIS TOTAL(UNKNOWN SYPHILIS STATUS) STAT 10/04/2024 1:02 PM EDT LDH Routine 10/04/2024 1:02 PM EDT REPEATED ABORH Routine 10/04/2024 1:02 PM EDT CBC (NO DIFF) Routine 10/04/2024 1:02 PM EDT TYPE AND SCREEN Routine 10/04/2024 1:02 PM EDT URIC ACID Routine 10/04/2024 1:02 PM EDT CHLAMYDIA/GC BY PCR YOUNG SWAB Routine 08/20/2024 HIV 1&2 AB/AG SCREEN (P24 AG) Routine 2024 RUBELLA IGG IMMUNE STATUS Routine 2024 SYPHILIS TOTAL(UNKNOWN SYPHILIS STATUS) Routine 2024 HEPATITIS B SURFACE ANTIGEN Routine 2024 TYPE AND SCREEN Routine 2024 documented in this encounter Results * (ABNORMAL) Bedside Glucose *Place/Obtain serum glucose if >500 per glucometer. (10/05/2024 11:55AM EDT) Bedside Glucose (POC) 168(H) 65 - 99 mg/dL 10/05/2024 12:00 PM EDT [facility] arterial/capilla ry 10/05/2024 11:55 AM EDT 10/05/2024 12:00 PM EDT us Binh Yung MD POINT OF CARE TEST ORDERABLES Final Result [facility] [address] [place] [address], [place] * Uric acid (10/05/2024 6:24 AM EDT) URIC ACID 6.4 2.6 - 7.2 mg/dL 10/05/2024 7:33 AM EDT [facility] Blood Venous blood / Unknown Venipuncture / Unknown 10/05/2024 6:24 AM EDT 10/05/2024 7:02 AM EDT us Kay Levi MD LAB BLOOD ORDERABLES Final Res ult Performing Organization Address City/[facility]/ZIP Co de Phone Number [facility] [address] [place] [address], [place] [phone] * LDH (10/05/2024 6:24 AM EDT) Pathologist [facility] LDH 138 100 - 235 U/L 10/05/2024 7:33 AM EDT [facility] Blood Venous blood / Unknown Venipuncture / Unknown 10/05/2024 6:24 AM EDT 10/05/2024 7:02 AM EDT Kay Levi MD LAB BLOOD ORDERABLES Final Res ult Performing Organization Address City/[facility]/ZIP Co de Phone Number [facility] [address] [place] [address], [place] [phone] * (ABNORMAL) Comprehensive metabolic panel (10/05/2024 6:24 AM EDT) SODIUM 135 134 - 146 mmol/L 10/05/2024 7:33 AM EDT [facility] POTASSIUM 4.0 3.5 - 5.0 mmol/L 10/05/2024 7:33 AM EDT [facility] CHLORIDE 105 98 - 109 mmol/L 10/05/2024 7:33 AM EDT [facility] CARBON DIOXIDE 20(L) 22 - 32 mmol/L 10/05/2024 7:33 AM [facility] ANION GAP 10 5 - 15 mmol/L 10/05/2024 7:33 AM T [facility] BLOOD UREA NITROGEN 8 5 - 23 mg/dL 10/05/2024 7:33 AM [facility] CREATININE 0.64 0.40 - 1.00 mg/dL 10/05/2024 7:33 AM [facility] Comment:METHOD TRACEABLE TO IDOR STANDARD GLUCOSE 111(H) 65 - 99 mg/dL 10/05/2024 7:33 AM [facility] CALCIUM 7.8(L) 8.5 - 10.5 mg/dL 10/05/2024 7:33 AM [facility] TOTAL PROTEIN 6.7 6.0 - 8.0 g/dL 10/05/2024 7:33 AM [facility] ALBUMIN 3.4 3.2 - 5.3 g/dL 10/05/2024 7:33 AM [facility] ALKALINE PHOSPHATASE 114 39 - 130 U/L 10/05/2024 7:33 AM [facility] AST 8 <=41 U/L 10/05/2024 7:33 AM [facility] ALT 5 <=31 U/L 10/05/2024 7:33 AM [facility] BILIRUBIN,TOTAL 0.3 0.3 - 1.2 mg/dL 10/05/2024 7:33 AM [facility] EGFR Non-Race Dependent >90 >=60 ml/min/1.7 3sq.m 10/05/2024 7:33 AM [facility] Comment: Reported eGFR is based on the CKD-EPI 2020 equation that does not use a race coefficient. EGFR not calculated due to patient's gender not being defined. Blood Venous blood / Unknown Venipuncture / Unknown 10/05/2024 6:24 AM EDT 10/05/2024 7:02 AM EDT us Kay Levi MD LAB BLOOD ORDERABLES Final Res ult [facility] [address] [place] [address], [place] [phone] * (ABNORMAL) CBC without diff (10/05/2024 6:24 AM EDT) WBC 14.8(H) 4 - 11 x10E9/L 10/05/2024 7:13 AM EDT [facility] RBC Count 4.69 3.8 - 5.2 X10E12/L 10/05/2024 7:13 AM EDT [facility] Hemoglobin 12.8 11.7 - 15.5 g/dL 10/05/2024 7:13 AM EDT [facility] Hematocrit 37.5 35 - 47 % 10/05/2024 7:13 AM EDT [facility] MCV 80 80 - 100 fL 10/05/2024 7:13 AM EDT [facility] MCH 27.2 27 - 34 pg 10/05/2024 7:13 AM EDT [facility] MCHC 34.0 32 - 36 g/dL 10/05/2024 7:13 AM EDT [facility] RDW 15.0 11.5 - 15 % 10/05/2024 7:13 AM EDT [facility] Platelet Count 276 150 - 450 X10E9/L 10/05/2024 7:13 AM EDT [facility] MPV 8.0 7 - 12 fL 10/05/2024 7:13 AM EDT [facility] Blood Venous blood / Unknown Venipuncture / Unknown 10/05/2024 6:24 AM EDT 10/05/2024 7:02 AM EDT us Kay Levi MD LAB BLOOD ORDERABLES Final Res ult [facility] [address] [place] [address], [place] [phone] * (ABNORMAL) Bedside Glucose *Place/Obtain serum glucose if >500 per glucometer. (10/05/2024 6:07 AM EDT) Bedside Glucose (POC) 119(H) 65 - 99 mg/dL 10/05/2024 6:14 AM EDT [facility] arterial/capilla ry 10/05/2024 6:07 AM EDT 10/05/2024 6:14 AM EDT us Binh Yung MD POINT OF CARE TEST ORDERABLES Final Result Performing Organization Address City/[facility]/ZIP Co de Phone Number [facility] [address] [place] [address], [place] * (ABNORMAL) Bedside Glucose *Place/Obtain serum glucose if >500 per glucometer. (10/05/2024 2:03 AM EDT) Bedside Glucose (POC) 133(H) 65 - 99 mg/dL 10/05/2024 2:05 AM EDT [facility] arterial/capilla ry 10/05/2024 2:03 AM EDT 10/05/2024 2:04 AM EDT us Binh Yung MD POINT OF CARE TEST ORDERABLES Final Result Performing Organization Address City/[facility]/ZIP Co de Phone Number [facility] [address] [place] [address], [place] * (ABNORMAL) Bedside Glucose *Place/Obtain serum glucose if >500 per glucometer. (10/04/2024 10:03PM EDT) Bedside Glucose (POC) 147(H) 65 - 99 mg/dL 10/04/2024 10:05 PM EDT [facility] arterial/capilla ry 10/04/2024 10:03 PM EDT 10/04/2024 10:05 PM EDT us Binh Yung MD POINT OF CARE TEST ORDERABLES Final Result Performing Organization Address City/[facility]/ZIP Co de Phone Number [facility] [address] [place] [address], [place] * Strep B screen (10/04/2024 8:55 PM EDT) [facility] CULTURE RESULTS POSITIVE FOR GROUP B STREPTOCOCCUS BY NUCLEIC ACID AMPLIFICATION 10/06/2024 12:59 AM EDT [facility] Swab (Vagina/Rectum) 10/04/2024 8:55 PM EDT 10/04/2024 9:15 PM EDT Narrative [facility] - 10/06/2024 12:59 AM EDT Group B streptococci remain universally susceptible to penicillin, ampicillin, and cefazolin. Resistance to clindamycin can occur. Please contact laboratory within 48 hours if clindamycin susceptibility testing is needed. us Evon Clement DO MICROBIOLOGY - GENERAL ORDER SONIA Final Result Performing Organization Address [facility] Co de Phone Number [facility] [address] [place] [address], [place] [phone] * (ABNORMAL) Bedside Glucose *Place/Obtain serum glucose if >500 per glucometer. (10/04/2024 6:13 PM EDT) [facility] Bedside Glucose (POC) 131(H) 65 - 99 mg/dL 10/04/2024 6:15 PM EDT [facility] arterial/capilla ry 10/04/2024 6:13 PM EDT 10/04/2024 6:15 PM EDT us Binh Yung MD POINT OF CARE TEST ORDERABLES Final Result Performing Organization Address [facility] Co de Phone Number [facility] [address] [place] [address], [place] * ABO Rh Repeat (10/04/2024 4:48 PM EDT) [facility] ABO A 10/04/2024 7:34 PM EDT [facility] RH Positive 10/04/2024 7:34 PM EDT [facility] Blood Venous blood / Unknown Venipuncture / Unknown 10/04/2024 4:48 PM EDT 10/04/2024 6:38 PM EDT Binh Yung MD BLOOD BANK TEST ORDERABLES Fin al Result Performing Organization Address City/[facility]/ZIP Co de Phone Number [facility] [address] [place] [address], [facility] [address] [place] [address], [place] * Uric acid (10/04/2024 4:48 PM EDT) URIC ACID 6.0 2.6 - 7.2 mg/dL 10/04/2024 5:43 PM EDT [facility] Blood Venous blood / Unknown Venipuncture / Unknown 10/04/2024 4:48 PM EDT 10/04/2024 4:58 PM EDT Kay eLvi MD LAB BLOOD ORDERABLES Final Res ult Performing Organization Address City/[facility]/ZIP Co de Phone Number [facility] [address] [place] [address], [place] [phone] * LDH (10/04/2024 4:48 PM EDT) LDH 134 100 - 235 U/L 10/04/2024 5:43 PM EDT [facility] Blood Venous blood / Unknown Venipuncture / Unknown 10/04/2024 4:48 PM EDT 10/04/2024 4:58 PM EDT Kay Levi MD LAB BLOOD ORDERABLES Final Res ult [facility] [address] [place] [address], [place] [phone] * (ABNORMAL) Comprehensive metabolic panel (10/04/2024 4:48 PM EDT) SODIUM 136 134 - 146 mmol/L 10/04/2024 5:43 PM EDT [facility] POTASSIUM 4.2 3.5 - 5.0 mmol/L 10/04/2024 5:43 PM EDT [facility] CHLORIDE 106 98 - 109 mmol/L 10/04/2024 5:43 PM EDT [facility] CARBON DIOXIDE 19(L) 22 - 32 mmol/L 10/04/2024 5:43 PM EDT [facility] ANION GAP 11 5 - 15 mmol/L 10/04/2024 5:43 PM EDT [facility] BLOOD UREA NITROGEN 8 5 - 23 mg/dL 10/04/2024 5:43 PM EDT [facility] CREATININE 0.73 0.40 - 1.00 mg/dL 10/04/2024 5:43 PM EDT [facility] Comment:METHOD TRACEABLE TO IDMS STANDARD GLUCOSE 136(H) 65 - 99 mg/dL 10/04/2024 5:43 PM T [facility] CALCIUM 8.3(L) 8.5 - 10.5 mg/dL 10/04/2024 5:43 PM T [facility] TOTAL PROTEIN 6.6 6.0 - 8.0 g/dL 10/04/2024 5:43 PM EDT [facility] ALBUMIN 3.4 3.2 - 5.3 g/dL 10/04/2024 5:43 PM EDT [facility] ALKALINE PHOSPHATASE 119 39 - 130 U/L 10/04/2024 5:43 PM EDT [facility] AST 9 <=41 U/L 10/04/2024 5:43 PM EDT [facility] ALT 5 <=31 U/L 10/04/2024 5:43 PM T [facility] BILIRUBIN,TOTAL 0.2(L) 0.3 - 1.2 mg/dL 10/04/2024 5:43 PM EDT [facility] EGFR Non-Race Dependent >90 >=60 ml/min/1.7 3sq.m 10/04/2024 5:43 PM EDT [facility] Comment: Reported eGFR is based on the CKD-EPI 2020 equation that does not use a race coefficient. EGFR not calculated due to patient's gender not being defined. Blood Venous blood / Unknown Venipuncture / Unknown 10/04/2024 4:48 PM EDT 10/04/2024 4:58 PM EDT us Kay Levi MD LAB BLOOD ORDERABLES Final Res ult [facility] [address] [place] [address], [place] [phone] * CBC without diff (10/04/2024 4:48 PM EDT) WBC 10.9 4 - 11 x10E9/L 10/04/2024 5:23 PM EDT [facility] RBC Count 4.63 3.8 - 5.2 X10E12/L 10/04/2024 5:23 PM EDT [facility] Hemoglobin 12.6 11.7 - 15.5 g/dL 10/04/2024 5:23 PM EDT [facility] Hematocrit 37.0 35 - 47 % 10/04/2024 5:23 PM EDT [facility] MCV 80 80 - 100 fL 10/04/2024 5:23 PM EDT [facility] MCH 27.1 27 - 34 pg 10/04/2024 5:23 PM EDT [facility] MCHC 34.0 32 - 36 g/dL 10/04/2024 5:23 PM EDT [facility] RDW 15.0 11.5 - 15 % 10/04/2024 5:23 PM EDT [facility] Platelet Count 268 150 - 450 X10E9/L 10/04/2024 5:23 PM EDT [facility] MPV 7.9 7 - 12 fL 10/04/2024 5:23 PM EDT [facility] Blood Venous blood / Unknown Venipuncture / Unknown 10/04/2024 4:48 PM EDT 10/04/2024 4:58 PM EDT us Kay Levi MD LAB BLOOD ORDERABLES Final Res ult Performing Organization Address City/[facility]/ZIP Co de Phone Number [facility] [address] [place] [address], [place] [phone] * Buprenorphine, urnie (10/04/2024 3:40 PM EDT) BUPRENORPHINE, URINE QUALITATIVE Negative Negative 10/04/2024 5:09 PM EDT [facility] Urine Urine specimen collection, clean catch / Unknown 10/04/2024 3:40 PM EDT 10/04/2024 4:23 PM EDT [facility] - 10/04/2024 5:09 PM EDT Urine Buprenorphine cut of value = 10 ng/mL This report is intended for use in clinical monitoring or management of patients. us Yvon Vanegas MD URINE ORDERABLES Final Result Performing Organization Address [facility] Co de Phone Number [facility] [address] [place] [address], [place] [phone] * Fentanyl, Urine Qualitative (10/04/2024 3:40 PM EDT) FENTANYL, URINE QUAL. Negative Negative 10/04/2024 5:09 PM EDT [facility] Urine Urine specimen collection, clean catch / Unknown 10/04/2024 3:40 PM EDT 10/04/2024 4:23 PM EDT [facility] - 10/04/2024 5:09 PM EDT Fentanyl screening cutoff = 5ng/ml This report is intended for use in clinical monitoring or management of patients. us Yvon Vanegas MD URINE ORDERABLES Final Result [facility] [address] [place] [address], * Drug Screen, Urine (10/04/2024 3:40 PM EDT) AMPHETAMINE/METHAMP Negative Negative 10/04 5:09 PM EDT [facility] Comment:AMPH/METH screening cut off = 1000 ng/mL COCAINE METABOLITE Negative Negative 2024 5:09 PM EDT [facility] Comment:Cocaine screening cu t off value = 300 ng/mL ECSTASY Negative Negative 10/04/2024 5:09 PM EDT [facility] Comment:Ecstasy screening cu t off value = 500 ng/mL METHADONE Negative Negative 10/04/2024 5:09 PM EDT [facility] Comment:Methadone screening cut off value = 300 ng/mL. OPIATES Negative Negative 10/04/2024 5:09 PM EDT [facility] Comment: Opiates screening cut off value = 300 ng/mL This test is used for the detection of codeine, hydrocodone (>1000 ng/mL), morphine and hydromorphone (>900 ng/mL) in urine. OXYCODONE Negative Negative 10/04/2024 5:09 PM EDT [facility] Comment: Oxycodone screening cut off value = 300 ng/mL This test is used for the detection of oxycodone and oxymorphone in urine. PHENCYCLIDINE Negative Negative 10/04/2024 5:09 PM EDT [facility] Comment:Phencyclidine screen ing cut off value = 25 ng/mL CANNABINOIDS Negative Negative 10/04/2024 5:09 PM EDT [facility] Comment:Cannabinoids/THC scr eening cut off value = 50 ng/mL Urine Barbiturates Negative Negative 2024 5:09 PM EDT [facility] Comment:Barbiturates screeni ng cut off value = 200 ng/mL BENZODIAZEPINES Negative Negative 5:09 PM EDT [facility] Comment:Benzodiazepines scre ening cut off value = 200 ng/mL Urine Urine specimen collection, clean catch / Unknown 10/04/2024 3:40 PM EDT 10/04/2024 4:23 PM EDT us Yvon Vanegas MD URINE ORDERABLES Final Result [facility] [address] [place] [address], [place] [phone] * (ABNORMAL) Urine protein creatinine ratio (10/04/2024 3:40 PM EDT) URINE PROTEIN, RANDOM (MG/L) 140(H) <120 mg/L 10/04/2024 5:09 PM EDT [facility] URINE CREATININE,RDM 28.24 mg/dL 10/04/2024 5:09 PM EDT [facility] U/PRO/FOLDING MACHINE SETTER RATIO CALC 0.50(H) <=0.20 10/04/2024 5:09 PM EDT [facility] Urine Urine specimen collection, clean catch / Unknown 10/04/2024 3:40 PM EDT 10/04/2024 4:23 PM EDT Narrative [facility] - 10/04/2024 5:09 PM EDT Nephrotic Syndrome is associated with ratios >3.5 us Yvon Vanegas MD URINE ORDERABLES Final Result [facility] [address] [place] [address], [place] [phone] * [facility]OMIC SURVEY (10/04/2024 3:20 PM EDT) Anatomical Region Laterality Modality OB-BREAKFAST BAR ATTENDANT Ultrasound 10/04/2024 2:51 PM EDT Narrative 10/04/2024 5:21 PM EDT NAME: BASILIO ALARCON : 1995 SEX: F Accession Number: [id number] ORDERING PHYSICIAN: YVON VANEGAS REFERRING PHYSICIAN: LUCÍA LEDESMA Coding ----- --------- Procedures 15193: Ultrasound, uterus, real time with image documentation, and maternal evaluation plus detailed anatomic examination, transabdominal approach;single or first gestation STAT ----- --------- Patient Location: Inpatient Indication ----- --------- Screening for Anatomic Survey, Obesity in , Gestational diabetes, Pre-eclampsia affecting . History ----- --------- OB History 2. Para 1 T1 Current ----- --------- Cell free DNA low risk analysis Maternal Assessment ----- --------- Physical Exam Height 163 cm, 5 ft 4 in. Initial weight 132 kg, 290 lb. Initial BMI 49.78 kg/m Method ----- --------- Transabdominal ultrasound examination. View: Suboptimal view: limited by maternal body habitus. ----- --------- Shah . Number of fetuses: 1 Dating ----- --------- Previous Ultrasound on: 05/18/2024 Type of prior assessment: GA GA at prior assessment date 11 w + 1 d GA by previous U/S 31 w + 0 d JANNY by previous Ultrasound: 12/06/2024 Ultrasound examination on: 10/04/2024 GA by U/S based upon: AC, BPD, Femur, HC GA by U/S 29 w + 6 d JANNY by U/S: 12/14/2024 Assigned: based on ultrasound (GA), selected on 10/04/2024 Assigned GA (weeks days) 31 w + 0 d Assigned JANNY: 12/06/2024 General Evaluation ----- --------- Cardiac activity Present. FHR 141 bpm. Presentation: cephalic Placenta: Placental site: posterior/fundal, away from cervical os Umbilical cord: Cord vessels: 3 vessel cord. Insertion site: not examined Amniotic fluid: Amount of AF: normal amount. MVP 3.6 cm Biometry ----- --------- Standard BPD 73.0 mm 29w 2d 4% Hadlock OFD 89.2 mm 28w 5d 6% Isac HC 260.8 mm 28w 3d <1% Hadlock Cerebellum tr 36.7 mm 30w 2d 13% Hill AC 265.8 mm 30w 5d 37% Hadlock Femur 59.7 mm 31w 1d 38% Hadlock Humerus 53.1 mm 30w 6d 52% Isac HC / AC 0.98 EFW 1,578 g 23% Hadlock EFW (lb) 3 lb EFW (oz) 8 oz EFW by: Hadlock ([id number]) Extended Tibia 47.6 mm 28w 6d 7% Isac Patient Service Coordinator 3.0 mm CM 5.2 mm 7% Nicolaides Head / Face / Neck Cephalic index 0.82 75% Nicolaides Nasal bone: not examined Extremities / Bony Struc FL / BPD 0.82 FL / HC 0.23 FL / AC 0.22 Other Structures FHR 141 bpm Anatomy ----- --------- The following structures appear normal: Head/Neck: Cranium. Lateral ventricles. Cavum septi pellucidi. Cerebellum. Cisterna magna. Parenchyma. Neck. Heart/Thorax: Situs. Cardiac position. Cardiac axis. Cardiac size. Cardiac rhythm. Abdomen: Stomach. Bladder. Small bowel. Large bowel. Extremities/Skeleton: Left upper arm. Left upper leg. Left lower leg. Skeleton The following structures could not be adequately visualized: Head / Neck Midline falx. Heart / Thorax 4-chamber view. 3-vessel view. 2-htzhvo-ocfsbec view. Interventricular septum. Great vessels. Diaphragm. Abdomen Kidneys. Extremities / Left foot. Skeleton The following structures could not be examined: Head / Neck Choroid plexus. Vermis. Face: Lips. Profile. Nose. Nasal bone. Maxilla. Mandible. Orbits. Heart / Thorax RVOT view. LVOT view. Aortic arch view. Bicaval view. Ductal arch view. Right lung. Left lung. Abdomen Abdom. wall. Cord insertion. Right renal artery. Left renal artery. Genitals. Spine: Cervical spine. Thoracic spine. Lumbar spine. Sacral spine. Extremities / Right upper arm. Right forearm. Right hand. Left forearm. Left hand. Right upper leg. Right lower leg. Right foot. Maternal Structures ----- --------- Uterus Visualized Cervix Visualized Right Ovary Not visualized Left Ovary Not visualized Cul de Sac Suboptimal Impression ----- --------- Single viable intrauterine consistent with 31w 0d with an JANNY of 12/06/2024. The HC measures less than the 3rd percentile for the gestational age but reference biometric measurement within 2 SD of the mean (Stephanie and colleagues, 1984). Amniotic fluid MVP measures 3.6 cm. Recommendations ----- --------- Subsequent follow up or other follow up as clinically determined by primary OB provider unless otherwise specified by MFM. Results forwarded to ordering provider so they can follow up with the patient as necessary. Procedure Note Aleena Mills MD - 10/04/2024 NAME: BASILIO ALARCON : 1995 SEX: F Accession Number: [id number] ORDERING PHYSICIAN: YVON VANEGAS REFERRING PHYSICIAN: LUCÍA LEDESMA Coding ----- --------- Procedures [id number]: Ultrasound, uterus, real time with imagedocumentation, and maternal evaluation plus detailed anatomic examination, transabdominalapproach;single or first gestation STAT ----- --------- Patient Location: Inpatient Indication ----- --------- Screening for Anatomic Survey, Obesity in , Gestational diabetes,Pre-eclampsia affecting . History ----- --------- OB History 2. Para 1 T1 Current ----- --------- Cell free DNA low risk analysis Maternal Assessment ----- --------- Physical Exam Height 163 cm, 5 ft 4 in. Initial weight 132 kg, 290 lb.Initial BMI 49.78 kg/m Method ----- --------- Transabdominal ultrasound examination. View: Suboptimal view: limited bymaternal body habitus. ----- --------- Shah . Number of fetuses: 1 Dating ----- --------- Previous Ultrasound on: 05/18/2024 Type of prior assessment: GA GA at prior assessment date 11 w + 1 d GA by previous U/S 31 w + 0 d JANNY by previous Ultrasound: 12/06/2024 Ultrasound examination on: 10/04/2024 GA by U/S based upon: AC, BPD, Femur, HC GA by U/S 29 w + 6 d JANNY by U/S: 12/14/2024 Assigned: based on ultrasound (GA), selected on 10/04/2024 Assigned GA (weeks days) 31 w + 0 d Assigned JANNY: 12/06/2024 General Evaluation ----- --------- Cardiac activity Present. FHR 141 bpm. Presentation: cephalic Placenta: Placental site: posterior/fundal, away from cervical os Umbilical cord: Cord vessels: 3 vessel cord. Insertion site: notexamined Amniotic fluid: Amount of AF: normal amount. MVP 3.6 cm Biometry ----- --------- Standard BPD 73.0 mm 29w 2d 4% Hadlock OFD 89.2 mm 28w 5d 6% Isac HC 260.8 mm 28w 3d <1% Hadlock Cerebellum tr 36.7 mm 30w 2d 13% Hill AC 265.8 mm 30w 5d 37% Hadlock Femur 59.7 mm 31w 1d 38% Hadlock Humerus 53.1 mm 30w 6d 52% Isac HC / AC 0.98 EFW 1,578 g 23% Hadlock EFW (lb) 3 lb EFW (oz) 8 oz EFW by: Hadlock ([id number]) Extended Tibia 47.6 mm 28w 6d 7% Isac Patient Service Coordinator 3.0 mm CM 5.2 mm 7% Nicolaides Head / Face / Neck Cephalic index 0.82 75% Nicolaides Nasal bone: not examined Extremities / Bony Struc FL / BPD 0.82 FL / HC 0.23 FL / AC 0.22 Other Structures FHR 141 bpm Anatomy ----- --------- The following structures appear normal: Head/Neck: Cranium. Lateral ventricles. Cavum septi pellucidi. Cerebellum.Cisterna magna. Parenchyma. Neck. Heart/Thorax: Situs. Cardiac position. Cardiac axis. Cardiac size. Cardiacrhythm. Abdomen: Stomach. Bladder. Small bowel. Large bowel. Extremities/Skeleton: Left upper arm. Left upper leg. Left lower leg. Skeleton The following structures could not be adequately visualized: Head / Neck Midline falx. Heart / Thorax 4-chamber view. 3-vessel view. 3-ygcbqa-daervpz view.Interventricular septum. Great vessels. Diaphragm. Abdomen Kidneys. Extremities / Left foot. Skeleton The following structures could not be examined: Head / Neck Choroid plexus. Vermis. Face: Lips. Profile. Nose. Nasal bone. Maxilla. Mandible. Orbits. Heart / Thorax RVOT view. LVOT view. Aortic arch view. Bicaval view.Ductal arch view. Right lung. Left lung. Abdomen Abdom. wall. Cord insertion. Right renal artery. Left renalartery. Genitals. Spine: Cervical spine. Thoracic spine. Lumbar spine. Sacral spine. Extremities / Right upper arm. Right forearm. Right hand. Left forearm.Left hand. Right upper leg. Right lower leg. Right foot. Maternal Structures ----- --------- Uterus Visualized Cervix Visualized Right Ovary Not visualized Left Ovary Not visualized Cul de Sac Suboptimal Impression ----- --------- Single viable intrauterine consistent with 31w 0d with an JANNY of12/06/2024. The HC measures less than the 3rd percentile for the gestational agebut reference biometric measurement within 2 SD of the mean (Stephanie and colleagues, 1984). Amniotic fluid MVP measures 3.6 cm. Recommendations ----- --------- Subsequent follow up or other follow up as clinically determined byprimary OB provider unless otherwise specified by M. Results forwarded to ordering provider so they can follow up with thepatient as necessary. us Yvon Vanegas MD IMG US ORDERABLES Final Resul t * (ABNORMAL) Bedside Glucose *Place/Obtain serum glucose if >500 per glucometer. (10/04/2024 2:20 PM EDT) Bedside Glucose (POC) 127(H) 65 - 99 mg/dL 10/04/2024 2:22 PM EDT [facility] arterial/capilla ry 10/04/2024 2:20 PM EDT 10/04/2024 2:22 PM EDT us Binh Yung MD POINT OF CARE TEST ORDERABLES Final Result [facility] [address] [place] [address], [place] * ABO Rh Repeat (10/04/2024 1:02 PM EDT) ABO A 10/04/2024 4:14 PM EDT [facility] RH Positive 10/04/2024 4:14 PM EDT [facility] Blood Venous blood / Unknown Venipuncture / Unknown 10/04/2024 1:02 PM EDT 10/04/2024 1:19 PM EDT Kay Levi MD BLOOD BANK TEST ORDERABLES Fin al Result [facility] [address] [place] [address], [facility] [address] [place] [address], [place] * Type and screen(includes indirect reanna) (10/04/2024 1:02 PM EDT) ABO A 10/04/2024 2:03 PM EDT [facility] RH Positive 10/04/2024 2:03 PM EDT [facility] Antibody Screen Negative 10/04/2024 2:03 PM EDT [facility] Blood Venous blood / Unknown Venipuncture / Unknown 10/04/2024 1:02 PM EDT 10/04/2024 1:19 PM EDT Kay Levi MD BLOOD BANK TEST ORDERABLES Paco walter Result - Final Performing Organization Address City/[facility]/ZIP Co de Phone Number [facility] [address] [place] [address], [facility] [address] [place] [address], * Syphilis Total (Unknown Syphilis Status) (10/04/2024 1:02 PM EDT) SYPHILIS TOTAL <0.2 <=0.8 AI 10/04/2024 3:16 PM EDT [facility] Blood Venous blood / Unknown Venipuncture / Unknown 10/04/2024 1:02 PM EDT 10/04/2024 1:13 PM EDT Narrative [facility] - 10/04/2024 3:16 PM EDT NON REACTIVE No serologic evidence of infection to Treponema pallidum. Repeat testing may be considered in patients with suspected acute or primary syphilis in 2 to 4 weeks. us Kay Levi MD LAB BLOOD ORDERABLES Final Res ult Performing Organization Address City/[facility]/ZIP Co de Phone Number [facility] [address] [place] [address], * Uric acid (10/04/2024 1:02 PM EDT) URIC ACID 5.7 2.6 - 7.2 mg/dL 10/04/2024 1:50 PM EDT [facility] Blood Venous blood / Unknown Venipuncture / Unknown 10/04/2024 1:02 PM EDT 10/04/2024 1:13 PM EDT Kay Levi MD LAB BLOOD ORDERABLES Final Res ult [facility] [address] [place] [address], * LDH (10/04/2024 1:02 PM EDT) [facility] LDH 140 100 - 235 U/L 10/04/2024 1:50 PM EDT [facility] Blood Venous blood / Unknown Venipuncture / Unknown 10/04/2024 1:02 PM EDT 10/04/2024 1:13 PM EDT Kay Levi MD LAB BLOOD ORDERABLES Final Res ult [facility] [address] [place] [address], * (ABNORMAL) CBC without diff (10/04/2024 1:02 PM EDT) [facility] WBC 11.0 4 - 11 x10E9/L 10/04/2024 1:28 PM EDT [facility] RBC Count 4.77 3.8 - 5.2 X10E12/L 10/04/2024 1:28 PM EDT [facility] Hemoglobin 12.9 11.7 - 15.5 g/dL 10/04/2024 1:28 PM EDT [facility] Hematocrit 38.1 35 - 47 % 10/04/2024 1:28 PM EDT [facility] MCV 80 80 - 100 fL 10/04/2024 1:28 PM EDT [facility] MCH 27.1 27 - 34 pg 10/04/2024 1:28 PM EDT [facility] MCHC 33.9 32 - 36 g/dL 10/04/2024 1:28 PM EDT [facility] RDW 15.4(H) 11.5 - 15 % 10/04/2024 1:28 PM EDT [facility] Platelet Count 262 150 - 450 X10E9/L 10/04/2024 1:28 PM EDT [facility] MPV 8.0 7 - 12 fL 10/04/2024 1:28 PM EDT [facility] Blood Venous blood / Unknown Venipuncture / Unknown 10/04/2024 1:02 PM EDT 10/04/2024 1:13 PM EDT Kay Levi MD LAB BLOOD ORDERABLES Final Res ult [facility] [address] [place] [address], [place] [phone] * Chlamydia/GC by PCR Young Swab (08/20/2024) Chlamydia Dna(Pcr) negative Gonorrhoeae Dna(Pcr) negative Swab Result [facility] Lucía R Angel DO MICROBIOLOGY - GENERAL ORDERABL ES Final Result * Hepatitis B surface antigen (2024) Hepatitis B Surface Antigen negative Blood Venous blood / Unknown Result [facility] Lucía R Angel DO LAB BLOOD ORDERABLES Final Resu lt * HIV 1&2 AB/AG Screen (P24 AG) (2024) HIV 1&2 AB/AG nonreactive Blood Venous blood / Unknown Lucía R Angel DO LAB BLOOD ORDERABLES Final Resu lt * Type and screen (2024) Abo/Rh(D) A Positive Blood Venous blood / Unknown Lucía R Angel DO BLOOD BANK TEST ORDERABLES Lily l Result * Rubella IGG immune status (2024) Rubella immune IgG immune Blood Venous blood / Unknown Result [facility] Lucía R [employer] LAB BLOOD ORDERABLES Final Resu lt * Syphilis Total (Unknown Syphilis Status) (2024) Syphilis nonreactive Blood Venous blood / Unknown Lucía R [employer] LAB BLOOD ORDERABLES Final Resu lt documented in this encounter Visit Diagnoses Diagnosis Preeclampsia- Primary Mild or unspecified pre-eclampsia, unspecified as to episode of care documented in this encounter Admitting Diagnoses Diagnosis Preeclampsia Mild or unspecified pre-eclampsia, unspecified as to episode of care documented in this encounter Administered Medications Inactive Administered Medications - up to 3 most recent administrations Medication Order MAR Action Action Date Dose Rate Site acetaminophen (TYLENOL EXTRA STRENGTH) tablet 1,000 mg 1,000 mg, oral, Once, On Tue10/04/24 at 1300, For 1 dose Given 10/04/2024 1:02 PM EDT 1,000 mg betamethasone acet & sod phos (CELESTONE) injection 12 mg 12 mg, intramuscular, Once, On Tue10/05/24 at 0900, For 1 dose, May alter blood glucose or insulin requirements. Given 10/05/2024 9:05 AM EDT 12 mg Right Upper Outer Quadrant calcium gluconate injection 1,000 mg 1,000 mg, intravenous, As needed, Magnesium Toxicity (severe respiratory depression, decreased level of consciousness, blurred vision, slurred speech, nausea, respiratory depression, and/or cardiac arrest), Starting on Tue10/04/24 at 1250, Administer slow IVP over 3 minutes VESICANT (RED) dextrose (GLUTOSE) 40 % gel 15 g 15 g, oral, As needed, low blood sugar, blood glucose less than 70 mg/dL, Starting on Tue10/04/24 at 1344, If patient conscious and taking PO. If blood glucose is not greater than 70 mg/dL after initial treatment, repeat treatment. dextrose 5 % (D5W) infusion 100 mL/hr, intravenous, Continuous PRN, blood glucose less than 70 mg/dL, Starting on Rosa 10/04/24 at 1344, For 365 days, Use immediately following dextrose 50% or glucagon treatment for patients who are unconscious or NPO. Contact prescriber for additional orders. If blood glucose is not greater than 70 mg/dL after initial treatment, repeat treatment. dextrose 50 % in water (D50W) 50% solution 25 mL 25 mL, intravenous, As needed, low blood sugar, blood glucose less than 70 mg/dL and unconscious or NPO with IV access, Starting on Rosa 10/04/24 at 1344, Push over 1-3 minutes STAT. If conscious and not NPO, immediately follow with meal tray or high protein (7 grams) snack if tray not available. If NPO, initiate 5% dextrose in water at 100 mL/hr and contact prescriber for additional orders. If blood glucose is not greater than 70 mg/dL after initial treatment, repeat treatment. VESICANT (RED) Warning: HYPERTONIC solution. glucagon HCL injection 1 mg 1 mg, intramuscular, As needed, low blood sugar, blood glucose less than 70 mg/dL and unconscious or NPO without IV access., Starting on Rosa 10/04/24 at 1344, If conscious and not NPO, immediately follow with meal tray or high protein (7Grams) snack if tray not available. If NPO, initiate IV 5% Dextrose/Water at 100 mL/hr and contact prescriber for additional orders. If blood glucose is not greater than 70 mg/dL after initial treatment, repeat treatment. insulin lispro (HumaLOG) injection 2-16 Units 2-16 Units, subcutaneous, 4 times daily with meals and nightly, First dose (after last modification) on Tue10/05/24 at 1200, Fasting + 1hr postprandial Individualized correction scale: Glucose level=insulin dose Daytime hyperglycemia dosing. For blood glucose 151-180mg/dL, give 2 units. For blood glucose 181-210mg/dL, give 4 units. For blood glucose 211-240mg/dL, give 6 units. For blood glucose 241-270mg/dL, give 8 units. For blood glucose 271-300mg/dL, give 10 units. For blood glucose 301-350mg/dL, give 12 units For blood glucose 351-400mg/dL, give 16 units For blood glucose >400 call MD Give even if NPO or meals skipped. Do NOT give more often then every 4 hours when NPO. Greater than 500 mg/dL=Notify prescriber immediately for treatment and order a stat laboratory blood glucose to obtain actual numerical value Less than 70 mg/dL=Implement Emergency Hypoglycemia Orders for Patients Look-alike/sound-alike medication - verify indication for use. Prime with 2 units of insulin prior to administration. Prandial/supplemental Insulin. Pre-filled pens stable 28 days at room temperature. Insulin lispro should be administered within 15 minutes before or immediately after a meal. Given 10/05/2024 12:01 PM EDT 2 Units Abdominal Tissue labetaloL (NORMODYNE) tablet 200 mg 200 mg, oral, Every 8 hours scheduled, First dose on [facility] 10/04/24 at 1415, Look-alike/sound-alike medication - verify indication for use. Given 10/05/2024 1:57 PM EDT 200 mg Given 10/05/2024 6:10 AM EDT 200 mg Given 10/04/2024 10:05 PM EDT 200 mg lactated ringers infusion 75 mL/hr, intravenous, Continuous, Starting on [facility] 10/04/24 at 1315, For 1 day Rate/Dose Verify 10/05/2024 6:00 AM EDT 75 mL/hr Rate/Dose Verify 10/05/2024 5:00 AM EDT 75 mL/h r Rate/Dose Verify 10/05/2024 4:00 AM EDT 75 mL/h r magnesium sulfate infusion 20 grams/500 mL in iso-osmotic water (40 mg/mL premix) 2 g/hr (50 mL/hr), intravenous, Continuous, Starting on [facility] 10/04/24 at 1300, For 5 days, Stop magnesium sulfate infusion if patient is Symptomatic of Magnesium Toxicity (severe respiratory depression, decreased level of consciousness, blurred vision, slurred speech, nausea, respiratory depression, and/or cardiac arrest) New Bag 10/05/2024 7:13 AM EDT 2 g/hr 50 mL/hr New Bag 10/04/2024 9:17 PM EDT 2 g/hr 50 mL/hr New Bag 10/04/2024 1:00 PM EDT 2 g/hr 50 mL/hr documented in this encounter Active and Recently Administered Medications Times are shown in EDT. Scheduled Medication Order 10/03/2024 10/04/2024 10/05/2024 acetaminophen (TYLENOL EXTRA STRENGTH) tablet 1,000 mg (COMPLETED) 1,000 mg, oral, Once, On Tue10/04/24 at 1300, For 1 dose 1302 (Given - Provider: Estrella Vazquez RN) betamethasone acet & sod phos (CELESTONE) injection 12 mg (COMPLETED) 12 mg, intramuscular, Once, On Tue10/05/24 at 0900, For 1 dose, May alter blood glucose or insulin requirements. 09 (Given - Provid er: Kristina Whitehead RN) insulin lispro (HumaLOG) injection 2-16 Units 2-16 Units, subcutaneous, 4 times daily with meals and nightly, First dose (after last modification) on Tue10/05/24 at 1200, Fasting + 1hr postprandial Individualized correction scale: Glucose level=insulin dose Daytime hyperglycemia dosing. For blood glucose 151-180mg/dL, give 2 units. For blood glucose 181-210mg/dL, give 4 units. For blood glucose 211-240mg/dL, give 6 units. For blood glucose 241-270mg/dL, give 8 units. For blood glucose 271-300mg/dL, give 10 units. For blood glucose 301-350mg/dL, give 12 units For blood glucose 351-400mg/dL, give 16 units For blood glucose >400 call MD Give even if NPO or meals skipped. Do NOT give more often then every 4 hours when NPO. Greater than 500 mg/dL=Notify prescriber immediately for treatment and order a stat laboratory blood glucose to obtain actual numerical value Less than 70 mg/dL=Implement Emergency Hypoglycemia Orders for Patients Look-alike/sound-alike medication - verify indication for use. Prime with 2 units of insulin prior to administration. Prandial/supplemental Insulin. Pre-filled pens stable 28 days at room temperature. Insulin lispro should be administered within 15 minutes before or immediately after a meal. 1201 (Given - Provid er: Racheal Blanco RN - Comment: BS 168) labetaloL (NORMODYNE) tablet 200 mg 200 mg, oral, Every 8 hours scheduled, First dose on Tue10/04/24 at 1415, Look-alike/sound-alike medication - verify indication for use. 1418 (Given - Provider: Estrella Vazquez RN)2205 (Given - Provider: Betty Lassiter RN) 0610 (Given - Provider: Betty Lassiter RN)1357 (Given - Provider: Racheal Blanco RN) Continuous Medication Order 10/03/2024 10/04/2024 10/05/2024 lactated ringers infusion 75 mL/hr, intravenous, Continuous, Starting on [facility] 10/04/24 at 1315, For 1 day 1315 (New Bag - Provider: Estrella Vazquez RN)1400 (Rate/Dose Verify - Provider: Estrella Vazquez RN)1500 (Rate/Dose Verify - Provider: Estrella Vazquez RN)1600 (Rate/Dose Verify - Provider: Estrella Vazquez RN)1700 (Rate/Dose Verify - Provider: Estrella Vazquez RN)1800 (Rate/Dose Verify - Provider: Estrella Vazquez RN)1900 (Rate/Dose Verify - Provider: Betty Lassiter RN)2000 (Rate/Dose Verify - Provider: Betty Lassiter RN)2100 (Rate/Dose Verify - Provider: Betty Lassiter RN)2200 (Rate/Dose Verify - Provider: Betty Lassiter RN)2300 (Rate/Dose Verify - Provider: Betty Lassiter RN)2357 (New Bag - Provider: Betty Lassiter RN)2357 (Restarted - Provider: Betty Lassiter RN) 0000 (Rate/Dose Verify - Provider: Betty Lassiter RN)0100 (Rate/Dose Verify - Provider: Betty Lassiter RN)0200 (Rate/Dose Verify - Provider: Betty Lassiter RN)0300 (Rate/Dose Verify - Provider: Betty Lassiter RN)0400 (Rate/Dose Verify - Provider: Betty Lassiter RN)0500 (Rate/Dose Verify - Provider: Betty Lassiter RN)0600 (Rate/Dose Verify - Provider: Betty Lassiter RN)0901 (Stop Bag - Provider: Kristina Whitehead RN) magnesium sulfate infusion 20 grams/500 mL in iso-osmotic water (40 mg/mL premix) (CANCELED) 2 g/hr (50 mL/hr), intravenous, Continuous, Starting on [facility] 10/04/24 at 1300, For 5 days, Stop magnesium sulfate infusion if patient is Symptomatic of Magnesium Toxicity (severe respiratory depression, decreased level of consciousness, blurred vision, slurred speech, nausea, respiratory depression, and/or cardiac arrest) 1300 (New Bag - Provider: Estrella Vazquez, RN)1858 (Handoff - Provider: Estrella Vazquez, RN)211 (New Bag - Provider: Betty Lassiter, AMY) 0713 (Stop Bag - Provider: Kristina Whitehead, AMY)07 (Stop Bag - Provider: Kristina Whitehead, AMY)07 (New Bag - Provider: Kristina Whitehead, AMY)0901 (Stop Bag - Provider: Kristina Whitehead RN) PRN Medication Order 10/03/2024 10/04/2024 10/05/2024 calcium gluconate injection 1,000 mg 1,000 mg, intravenous, As needed, Magnesium Toxicity (severe respiratory depression, decreased level of consciousness, blurred vision, slurred speech, nausea, respiratory depression, and/or cardiac arrest), Starting on [facility] 10/04/24 at 1250, Administer slow IVP over 3 minutes VESICANT (RED) dextrose (GLUTOSE) 40 % gel 15 g 15 g, oral, As needed, low blood sugar, blood glucose less than 70 mg/dL, Starting on [facility] 10/04/24 at 1344, If patient conscious and taking PO. If blood glucose is not greater than 70 mg/dL after initial treatment, repeat treatment. dextrose 5 % (D5W) infusion 100 mL/hr, intravenous, Continuous PRN, blood glucose less than 70 mg/dL, Starting on [facility] 10/04/24 at 1344, For 365 days, Use immediately following dextrose 50% or glucagon treatment for patients who are unconscious or NPO. Contact prescriber for additional orders. If blood glucose is not greater than 70 mg/dL after initial treatment, repeat treatment. dextrose 50 % in water (D50W) 50% solution 25 mL 25 mL, intravenous, As needed, low blood sugar, blood glucose less than 70 mg/dL and unconscious or NPO with IV access, Starting on [facility] 10/04/24 at 1344, Push over 1-3 minutes STAT. If conscious and not NPO, immediately follow with meal tray or high protein (7 grams) snack if tray not available. If NPO, initiate 5% dextrose in water at 100 mL/hr and contact prescriber for additional orders. If blood glucose is not greater than 70 mg/dL after initial treatment, repeat treatment. VESICANT (RED) Warning: HYPERTONIC solution. glucagon HCL injection 1 mg 1 mg, intramuscular, As needed, low blood sugar, blood glucose less than 70 mg/dL and unconscious or NPO without IV access., Starting on [facility] 10/04/24 at 1344, If conscious and not NPO, immediately follow with meal tray or high protein (7Grams) snack if tray not available. If NPO, initiate IV 5% Dextrose/Water at 100 mL/hr and contact prescriber for additional orders. If blood glucose is not greater than 70 mg/dL after initial treatment, repeat treatment. lactated ringers infusion 250 mL/hr, intravenous, Continuous PRN, to improve utero-placental perfusion and/or relieve cord compression, Starting on [facility] 10/04/24 at 1251, For 1 day documented in this encounter
--- OUTSIDE RECORDS SUMMARY | 2024-10-04 14:31 | XMS_ITS | Encounter Summary ---
Author Organization [facility] Address [id number] [address] [place] [address] Care Team Providers Care Appeals Analyst Name Role Phone Unavailable Primary Care Provider Unavailabl e Reason for Visit * Auth/Cert (Routine) Specialty Diagnoses / Procedures Referred By Jesus t Referred To Contact Diagnoses Preeclampsia Severe preeclampsia Binh Yung MD [address] [place] [address], [address] [place] [address] Phone: tel: fax: Referral ID Status Reason Start Date Expiration Date Visits Re quested Visits Authorized [id number] 1 1 Encounter Details Date Type Department Care Team (Latest Contact Info) Description 10/04/2024 2:31 PM EDT - 10/04/2024 11:59 PM EDT Hospital Encounter [facility] US Imaging [address] [place] [address] Discharge Disposition: Home Social History Tobacco Use Types Packs/Day Years [...] on file documented as of this encounter Functional Status documented as of [...] the morning. documented as of this encounter Plan of Treatment Upcoming Encounters Date Type Department Care Team (Late st Contact Info) Description 10/18/2024 1:30 PM EDT Support Visit Maternal- Medicine at [facility] [address] [place] [phone] Krista Cruz, RN [address] [facility], [facility] [place] [address] Laura Weaver LD documented as of this encounter Procedures Procedure Name Priority Date/Time Associated Diagnosis Comments [facility] COMPREHENSIVE ANATOMIC SURVEY Routine 10/04/2024 3:20 PM EDT documented in this encounter Results * US [facility] COMPREHENSIVE ANATOMIC SURVEY (10/04/2024 3:20 PM EDT) Anatomical Region Laterality Modality OB-PHYSICIAN'S ASSISTANT Ultrasound 10/04/2024 2:51 PM EDT Narrative 10/04/2024 5:21 PM EDT NAME: BASILIO ALARCON : 1995 SEX: F Accession Number: [id number] ORDERING PHYSICIAN: DANICA POST REFERRING PHYSICIAN: LUCÍA LEDESMA Coding ----- --------- Procedures [id number]: Ultrasound, uterus, real time with image documentation, [...] EFW (oz) 8 oz EFW by: Hadlock ([id number]-FL) Extended Tibia 47.6 mm 28w 6d 7% Isac Pearl Technician 3.0 mm CM 5.2 mm 7% Nicolaides [...] Heart / Thorax 4-chamber view. 3-vessel view. 7-agzhzi-swnpnty view. Interventricular septum. Great vessels. Diaphragm. Abdomen [...] ALARCON : 1995 SEX: F Accession Number: [id number] ORDERING PHYSICIAN: DANICA POST REFERRING PHYSICIAN: LUCÍA LEDESMA Coding ----- --------- Procedures [id number]: Ultrasound, uterus, real time with imagedocumentation, and [...] EFW (oz) 8 oz EFW by: Hadlock ([id number]) Extended Tibia 47.6 mm 28w 6d 7% Isac Pearl Technician 3.0 mm CM 5.2 mm 7% Nicolaides [...] Heart / Thorax 4-chamber view. 3-vessel view. 3-swtubz-fzgngsn view.Interventricular septum. Great vessels. Diaphragm. Abdomen Kidneys. [...] byprimary OB provider unless otherwise specified by [facility]. Results forwarded to ordering provider so they can follow up with thepatient as necessary. us Danica Post MD [facility] ORDERABLES Final Resul t documented in this encounter Visit Diagnoses Not on filedocumented in this encounter
--- OUTSIDE RECORDS SUMMARY | 2024-10-08 14:20 | XMS_ITS | Encounter Summary ---
Author Organization [facility] Address [address] [place] [address] Care Team Providers Care Assistant Corporate Secretary Name Role Phone Unavailable Primary Care Provider Unavailabl e Reason for Visit * Reason Comments Routine Visit Encounter Details Date Type Department Care Team ([facility] Contact Info) Description 10/08/2024 2:20 PM EDT Routine GREG [facility] O[facility] [address] [place] [address] Zack Ortiz DO [address] [place] [address] Third trimester ([facility]); 31 weeks gestation of ([facility]); Hypertension affecting in third trimester ([facility]) Social History Tobacco Use Types Packs/Day [...] to check FSBS. Blood Glucose Monitoring Suppl ([employer] Glucometer) w/Device kit 1 kit, Does not [...] nursing note reviewed. Exam conducted with a notary public present. Vitals: Estimated body mass index is 49.33 kg/m?? as calculated from the following: Height as of 22: 5' 4 . Weight as of this encounter: 287 lb 6.4 oz. BP: (!) 142/100 No LMP recorded. Patient is . ASSESSMENT & PLAN ICD-10-CM 1. Third trimester ([facility]) Z34.93 Urine dip 2. 31 weeks gestation of ([facility]) Z3A.31 Urine dip Patient was seen at [facility] last week. Patient left AMA and was advised thatit is recommended that she return to [place] until delivery as instructed. Patient declines and would like to continue locally at this time. Informed patient that if she experiences any symptoms then she is to return to [facility] to be monitored. Patient declines and will [...] [facility]CR[facility] [address] [place] [address] Zack Ortiz DO [address] [place] [address] documented as of this encounter Procedures Procedure Name Priority Date/Time Associated Diagnosis Comments POCT URINALYSIS DIPSTICK Routine 10/08/2024 3:15 PM EDT Third trimester ([facility]) 31 weeks gestation of ([facility]) documented in this encounter Results * [...] ([facility]) state, incidental 31 weeks gestation of ([facility]) Hypertension affecting in third trimester ([facility]) documented in this encounter
--- OUTSIDE RECORDS SUMMARY | 2024-10-17 10:15 | XMS_ITS | Encounter Summary ---
Author Organization [facility] Address [address] [place] [address] Care Team Providers Care Multimedia Developer Name Role Phone Unavailable Primary Care Provider Unavailabl e Encounter Details Date Type Department Care Team (Late st Contact Info) Description 10/03/2024 Clinisync Result Encounter [facility] External Department Unsolicited Lucía Ortiz DO [address], [facility] Social History Tobacco Use Types Packs/Day Years [...] Description 10/17/2024 1:30 PM EDT Routine [facility] [address] [place] [id number] Lucía Ortiz DO [address] [address] documented as of this encounter Procedures Procedure [...] EDT Narrative 10/03/2024 5:48 [place] [address] Ultrasound Report Signed Patient: DORIAN RICHMOND MR#: [id number] : 1995 Acct:[id number] Age/Sex: 29 / F ADM Date: Loc: [facility] Attending Dr: Lucía Ortiz D.O. Ordering Physician: Lucía Ortiz D.O. Date of Service: 10/03/24 Procedure(s): US OB BPP w non-stress Accession Number(s): [id number] cc: Lucía Ortiz D.O.; Physician,Non-Staff M.D. The [address] [address] Patient Name: DORIAN RICHMOND MRN: [id number] date: 1995 Sex: F Assigned Patient Location: [facility] Current Patient Location: [facility] Accession/Order Number: [id number] Exam Date: 10/03/2024 17:45 Report Date: 10/03/2024 [...] Tan M.D. 10/03/2024 5:46 PM Dictation Location: [place] [address] Electronically authenticated by: [id number] Y Date: 10/03/2024 17:46 Dictated By: Robi Tan D.O. Signed By: 10/03/248 DD/ 45 TD/TT: Brass Pourer: Procedure Note Radiology, Radiologist, - 10/03/2024 [place] [address] Ultrasound Report Signed Patient: DORIAN RICHMOND R#: [id number] : 1995Acct:[id number] Age/Sex: 29 FADM Date: Loc: [facility] [address]: Lucía Ortiz D.O. Ordering Physician: Lucía Ortiz D.O. Date of Service: 10/03/24 Procedure(s): US OB BPP w non-stress Accession Number(s): [id number] cc: Lucía Ortiz D.O.; Physician,Non-Staff [place] [address] Patient Name: DORIAN RICHMOND MRN: [id number] date: 1995 Sex: F Assigned Patient Location: [facility] Current Patient Location: [facility] Accession/Order Number: [id number] Exam Date: 10/03/2024 17:45 Report Date: 10/03/2024 [...] Tan M.D. 10/03/2024 5:46 PM Dictation Location: [place] [address] Electronically authenticated by: [id number] Y Date: 7:46 Dictated By: Robi Tan D.O. Signed By:10/03/241747 DD/ 45 TD/TT: Brass Pourer: us Lucía Angel DO [facility] Final [...] [facility] Final Result Performing Organization Address City/[facility]/ZIP Co de Phone Number [facility] * [...] DO [facility] Final Result Performing Organization Address [facility] Co de Phone Number [facility]/O COUM (10/03/2024 3:51 [...]
--- OUTSIDE RECORDS SUMMARY | 2024-10-17 10:15 | XMS_ITS | Encounter Summary ---
Author Organization [facility] Address [address] [place] [address] Care Team Providers Care Phone Triage Specialist Name Role Phone Unavailable Primary Care Provider Unavailabl e Encounter Details Date Type Department Care Team (Late Contact Info) Description 05/31/2024 Abstract GREG MANZANO [facility] [place] [address] Zack Ortiz DO [facility] [address], [facility]11 Social History Tobacco Use Types Packs/Day [...] 10/17/2024 1:30 PM EDT Routine GREG MANZANO [facility] [place] [address] Zack Ortiz DO [address] [address] documented as of this encounter Visit Diagnoses Not on filedocumented in this encounter
--- OUTSIDE RECORDS SUMMARY | 2024-10-17 10:15 | XMS_ITS | Encounter Summary ---
Author Organization [facility] Address [address] [place] [address] Care Team Providers Care Hat Binder Name Role Phone Unavailable Primary Care Provider Unavailabl e Encounter Details Date Type Department Care Team (Late st Contact Info) Description 10/04/2024 Clinisync Result Encounter [facility] External Department Unsolicited Zack Ortiz DO [address], [facility] Social History Tobacco Use Types Packs/Day [...] [facility] [address] [place] [phone] Zack Ortiz DO [address] [address] documented as of this encounter Procedures Procedure [...] us Zack Angel DO [facility] Final Result [facility] * [facility] APTT (10/04/2024 8:46 AM EDT) PARTIAL THROMBOPLASTIN TIME 26.8 22.3 - 36.2 sec TB 10/04/2024 8:46 AM EDT 10/04/2024 8:50 AM EDT Narrative [facility] - 10/04/2024 9:53 AM EDT Zack Angel BRASWELL Final Result Performing Organization Address [facility] Co de Phone Number [facility] * [facility] PROTHROMBIN TIME INR W/O [...] Angel KAITLIN Final Result Performing Organization Address [facility] Co de Phone Number [facility] * (ABNORMAL) ALL CBC WITH AUTO [...] Zack Angel DO [facility] Final Result [facility] * ALL LDH (10/04/2024 8:46 AM EDT) LACTATE DEHYDROGENASE 153 81 - 234 U/L [facility] 10/04/2024 8:46 AM EDT 10/04/2024 8:50 AM EDT Narrative [facility] - 10/04/2024 9:35 AM EDT us Zack Angel DO [facility] Final Result [facility] * [facility] ALT (10/04/2024 8:46 AM [...] DO CLIN[facility] Final Result Performing Organization Address [facility] Co de Phone Number [facility] * ALL URIC ACID (10/04/2024 8:46 AM EDT) URIC ACID 5.4 2.6 - 6.0 mg/dL TB 10/04/2024 8:46 AM EDT 10/04/2024 8:50 AM EDT Narrative [facility]IN[facility] - 10/04/2024 9:33 AM EDT Zack Johnso DO [facility] Final Result Performing Organization Address [facility] Co de Phone Number SHAHZADND TB * [facility] CREATININE (10/04/2024 8:46 AM EDT) CREATININE 0.75 0.55 - 1.02 mg/dL TBH [facility] EGFR-AF VENEZUELAN >60 >=60 mL/min/1.7 3m 2 TBH [facility] EGFR-NON AF VENEZUELAN >60 >=60 mL/min/1.7 3m 2 [facility] 10/04/2024 8:46 AM EDT 10/04/2024 8:50 AM EDT Narrative [facility]IN[facility] - 10/04/2024 9:33 AM EDT Zack Angel DO [facility] Final Result [facility] TB * (ABNORMAL) ALL BUN (10/04/2024 8:46 AM EDT) BLOOD UREA NITROGEN 6.0(L) 7.0 - 18.0 mg/dL TBH 10/04/2024 8:46 AM EDT 10/04/2024 8:50 AM EDT Narrative [facility]INISYNC - 10/04/2024 9:33 AM EDT us Zack Johnso DO [facility] Final Result CLINST[facility]PHON[facility] TB documented in this encounter Visit Diagnoses Not on filedocumented in this encounter
--- OUTSIDE RECORDS SUMMARY | 2024-10-17 10:15 | XMS_ITS | Encounter Summary ---
Author Organization [facility] Address [address] [place] [address] Care Team Providers Care Retail Advertising Sales Manager Name Role Phone Unavailable Primary Care Provider Unavailabl e Encounter Details Date Type Department Care Team (Late st Contact Info) Description 10/10/2024 Clinisync Result Encounter [facility] External Department Unsolicited Lucía Ortiz DO [address], [facility] [address] Social History Tobacco Use Types Packs/Day Years [...] [facility] [address] [place] [phone] Lucía Ortiz DO [address] [address] documented as of this encounter Procedures Procedure Name Priority Date/Time Associated Diagnosis Comments US OB BPP W NON-STRESS 10/10/2024 2:29 PM EDT documented in this encounter Results * US OB BPP W NON-STRESS (10/10/2024 2:29 PM EDT) Anatomical Region Laterality Modality Other 10/10/2024 2:29 PM EDT Narrative 10/10/2024 2:32 [place] [address] Ultrasound Report Signed Patient: DORIAN RICHMOND MR#: [id number] : 1995 Acct:[id number] Age/Sex: 29 / F ADM Date: 10/10/24 Loc: [facility] [address]: Lucía Ortiz D.O. Ordering Physician: Lucía Ortiz D.O. Date of Service: 10/10/24 Procedure(s): US OB BPP w non-stress Accession Number(s): [id number] cc: Lucía Ortiz D.O.; Physician,Non-Staff [facility] [place] [address] Patient Name: DORIAN RICHMOND MRN: [id number] date: 1995 Sex: F Assigned Patient Location: [facility] Current Patient Location: [facility] Accession/Order Number: [id number] Exam Date: 10/10/2024 14:02 Report Date: 10/10/2024 14:29 At the request of: LUCÍA ORTIZ DO Procedure: US OB BPP w non-stress Biophysical profile. Reason for exam: Gestational diabetes COMPARISON: 10/03/2024 TECHNIQUE: Transabdominal imaging of the gravid uterus was obtained. FINDINGS: The core laying machine operator reports a BPP of 8 out of 8. SCOOTER is normal at 11.7 cm. heart rate 134 bpm. US/US OB BPP w non-stress IMPRESSION: BPP 8 out of 8. Impression dictated by: Kahlil Voss Jr., D.O. 10/10/2024 2:29 PM Dictation Location: [id number] Electronically authenticated by: [id number] Y Date: 10/10/2024 14:29 Dictated By: Kahlil Voss M.D. Signed By: 10/10/24 1432 DD/ 1429 TD/TT: Chief Payroll Clerk: Procedure Note Radiology, Radiologist, - 10/10/2024 [place] [address] Ultrasound Report Signed Patient: DORIAN RICHMOND JMR#: [id number] : 1995Acct:[id number] Age/Sex: 29 / FADM Date: 10/10/24 Loc: [facility] [address]: Lcuía Ortiz D.O. Ordering Physician: Lucía Ortiz D.O. Date of Service: 10/10/24 Procedure(s): US OB BPP w non-stress Accession Number(s): [id number] cc: Lucía Ortiz D.O.; Physician,Non-Staff [place] [facility] [place] [address] Patient Name: DORIAN RICHMOND MRN: [id number] date: 1995 Sex: F Assigned Patient Location: [facility] Current Patient Location: [facility] Accession/Order Number: [id number] Exam Date: 10/10/2024 14:02 Report Date: 10/10/2024 14:29 At the request of: LUCÍA ORTIZ DO Procedure: US OB BPP w non-stress Biophysical profile. Reason for exam: Gestational diabetes COMPARISON: 10/03/2024 TECHNIQUE: Transabdominal imaging of the gravid uterus was obtained. FINDINGS: The core laying machine operator reports a BPP of 8 out of 8. SCOOTER is normal at11.7 cm. heart rate 134 bpm. US/US OB BPP w non-stress IMPRESSION: BPP 8 out of 8. Impression dictated by: Kahlil Voss Jr., D.O. 10/10/2024 2:29 PM Dictation Location: [place] [address] Electronically authenticated by: [id number] Y Date: 4:29 Dictated By: Kahlil Voss M.D. Signed By:10/10/24 1432 DD/ 1429 TD/TT: Chief Payroll Clerk: us Lucía Ortiz DO [facility] Final Result documented in this encounter Visit Diagnoses Not on filedocumented in this encounter
--- OUTSIDE RECORDS SUMMARY | 2024-10-17 10:15 | XMS_ITS | Encounter Summary ---
Author Organization [facility] Address [address] [place] [address] Care Team Providers Care Brush Worker Name Role Phone Unavailable Primary Care Provider Unavailabl e Encounter Details Date Type Department Care Team (Late Contact Info) Description 05/31/2024 Abstract GREG MANZANO [facility] [place] [address] Zack Ortiz DO [facility] [address], [facility]11 Social History Tobacco Use Types [...] 10/17/2024 1:30 PM EDT Routine GREG MANZANO [facility] [place] [address] Zack Ortiz DO [address] [address] documented as of this encounter Visit Diagnoses Not on filedocumented in this encounter
--- OUTSIDE RECORDS SUMMARY | 2024-10-17 10:15 | XMS_ITS | Encounter Summary ---
Author Organization [facility] Address [address] [place] [address] Care Team Providers Care Waterproofer Name Role Phone Unavailable Primary Care Provider Unavailabl e Encounter Details Date Type Department Care Team (Late st Contact Info) Description 10/03/2024 Telephone [facility] [address] [place] [address] [place] [address] Jane Lang LPN Social History Tobacco [...] 3:02 PM EDT Please refer to [facility] for diabetic management and insulin prescription documented in this encounter Plan of Treatment Upcoming Encounters Date Type Department Care Team (Late st Contact Info) Description 10/17/2024 1:30 PM EDT Routine [facility] OBCRIS [address] [place] [phone] Zack Ortiz DO [address] [place] [address] documented as of this encounter Visit Diagnoses Not on filedocumented in this encounter
--- OUTSIDE RECORDS SUMMARY | 2024-10-17 10:15 | XMS_ITS | Encounter Summary ---
Author Organization [facility] Address [address] [place] [address] Care Team Providers Care Green End Man Name Role Phone Unavailable Primary Care Provider Unavailabl e Encounter Details Date Type Department Care Team (Late Contact Info) Description 08/28/2024 Orders Only [facility] Armando MANZANO [address] [facility] [place] [phone] Berta Yoder ID [address] [facility] [place] [address] Social History Tobacco Use Types Packs/Day Years [...] EDT Routine [facility] Armando MANZANO [address] [facility] [place] [address] Zack Ortiz DO [address] [facility] [address] [place], [place] [id number] documented as of this encounter Procedures Procedure [...]
--- OUTSIDE RECORDS SUMMARY | 2024-10-17 10:15 | XMS_ITS | Encounter Summary ---
Author [facility] Address [id number] [address] [place] [address] Care Team Providers Care Backrest Assembler Name Role Phone Unavailable Primary Care Provider [...] PM EDT Support Visit Maternal- Medicine at [facility] [address] [place] [phone] Krista Cruz RN [address] [address] Laura Weaver LD documented as of this encounter Visit Diagnoses Not on filedocumented in this encounter
--- OUTSIDE RECORDS SUMMARY | 2024-10-17 10:15 | XMS_ITS | Encounter Summary ---
Author Organization [facility] Address [address] [place] [address] Care Team Providers Care Hand Fur Cleaner Name Role Phone Unavailable Primary Care Provider Unavailabl e Encounter Details Date Type Department Care Team (Late Contact Info) Description 10/08/2024 Bamboo flowsheet [facility] MAN[facility]ANO [address] [place] [phone] Zack Ortiz DO [facility] [place] [address], [place] [address] Social History Tobacco Use Types Packs/Day Years [...] EDT Routine [facility] MANZANO [address] [place] [phone] Zack Ortiz DO [address], [facility] documented as of this encounter Visit Diagnoses Not on filedocumented in this encounter
--- OUTSIDE RECORDS SUMMARY | 2024-10-17 10:15 | XMS_ITS | Patient Health Record ---
Author Organization [facility] Address [address] [facility] [place] [address] Care Team Providers Care Skeins Yarn Examiner Name Role Phone Maliha Matos Primary Care Provider Reason For Referral No Information Plan Of Treatment No Information Insurance Providers Payer Name Payer Address Payer Phone Subscriber Number Group Number Insured Name Patient Relationship to Insured Coverage Start Date Coverage End Date ANTHEM Primary [address] [place] [address] [id number] JOSÉ MIGUEL KOLB Spouse - patient is the spouse of the insured 3
--- OUTSIDE RECORDS SUMMARY | 2024-10-17 10:15 | XMS_ITS | Clinical Summary ---
Author Organization [facility] Address [facility] [id number] [address] [place] [address] Care Team Providers Care Marble Ceiling Installer Name Role Phone Unavailable Primary Care Provider [...] Team Description 10/11/2024 Abstract Maternal- Medicine at [facility] [address] [place] [id number] External, Scanning Provider 10/04/2024 2:31 PM EDT - 10/04/2024 11:59 PM EDT Hospital Encounter [facility] - [facility] [address] [place] [address] Discharge Disposition: Home 10/04/2024 12:23 PM EDT - 10/05/2024 3:01 PM EDT Hospital Encounter [facility] - GEN 3 Antepartum [address] [place] [address] Binh Yung MD Discharge Disposition: Left Against [...] PM EDT Support Visit Maternal- Medicine at [facility] [address] [place] [address] Krista Cruz RN [address] [facility], [address] [place] [id number] Laura Weaver LD Health Maintenance Due Date [...] of6 resultswithin the time period is included. [facility] Bedside Glucose (POC) 168(H) 65 - 99 mg/dL 10/05/2024 12:00 PM EDT [facility] arterial/capilla ry 10/05/2024 11:55 AM EDT 10/05/2024 12:00 PM EDT us iBnh Yung MD POINT OF CARE TEST ORDERABLES Final Result [facility] [address] [place] [address], [place] * LDH (10/05/2024 6:24 AM EDT) Only the most recent of3 resultswithin the time period is included. [facility] LDH 138 100 - 235 U/L 10/05/2024 7:33 AM EDT [facility] Blood Venous blood / Unknown Venipuncture / Unknown 10/05/2024 6:24 AM EDT 10/05/2024 7:02 AM EDT us Kay Levi MD LAB BLOOD ORDERABLES Final Res ult [facility] [address] [place] [address], [place] [phone] * (ABNORMAL) CBC without diff (10/05/2024 6:24 AM EDT) Only the most recent of3 resultswithin the time period is included. [facility] WBC 14.8(H) 4 - 11 x10E9/L 10/05/2024 7:13 AM EDT [facility] RBC Count 4.69 3.8 - 5.2 X10E12/L 10/05/2024 7:13 AM EDT [facility] Hemoglobin 12.8 11.7 - 15.5 g/dL 10/05/2024 7:13 AM EDT [facility] Hematocrit 37.5 35 - 47 % 10/05/2024 7:13 AM EDT [facility] MCV 80 80 - 100 fL 10/05/2024 7:13 AM EDT [facility] MCH 27.2 27 - 34 pg 10/05/2024 7:13 AM EDT [facility] MCHC 34.0 32 - 36 g/dL 10/05/2024 7:13 AM EDT [facility] RDW 15.0 11.5 - 15 % 10/05/2024 7:13 AM EDT [facility] Platelet Count 276 150 - 450 X10E9/L 10/05/2024 7:13 AM EDT [facility] MPV 8.0 7 - 12 fL 10/05/2024 7:13 AM EDT [facility] Blood Venous blood / Unknown Venipuncture / Unknown 10/05/2024 6:24 AM EDT 10/05/2024 7:02 AM EDT us Kay Levi MD LAB BLOOD ORDERABLES Final Res ult [facility] [address] [place] [address], * Uric acid (10/05/2024 6:24 AM EDT) Only the most recent of3 resultswithin the time period is included. URIC ACID 6.4 2.6 - 7.2 mg/dL 10/05/2024 7:33 AM EDT [facility] Blood Venous blood / Unknown Venipuncture / Unknown 10/05/2024 6:24 AM EDT 10/05/2024 7:02 AM EDT us Kay Levi MD LAB BLOOD ORDERABLES Final Res ult [facility] [address] [place] [address], [place] [phone] * (ABNORMAL) Comprehensive metabolic panel (10/05/2024 6:24 AM EDT) Only the most recent of2 resultswithin the time period is included. SODIUM 135 134 - 146 mmol/L 10/05/2024 7:33 AM EDT [facility] POTASSIUM 4.0 3.5 - 5.0 mmol/L 10/05/2024 7:33 AM EDT [facility] CHLORIDE 105 98 - 109 mmol/L 10/05/2024 7:33 AM T [facility] CARBON DIOXIDE 20(L) 22 - 32 mmol/L 10/05/2024 7:33 AM T [facility] ANION GAP 10 5 - 15 mmol/L 10/05/2024 7:33 AM T [facility] BLOOD UREA NITROGEN 8 5 - 23 mg/dL 10/05/2024 7:33 AM T [facility] CREATININE 0.64 0.40 - 1.00 mg/dL 10/05/2024 7:33 AM T [facility] Comment:METHOD TRACEABLE TO IDMS STANDARD GLUCOSE 111(H) 65 - 99 mg/dL 10/05/2024 7:33 AM [facility] CALCIUM 7.8(L) 8.5 - 10.5 mg/dL 10/05/2024 7:33 AM T [facility] TOTAL PROTEIN 6.7 6.0 - 8.0 g/dL 10/05/2024 7:33 AM T [facility] ALBUMIN 3.4 3.2 - 5.3 g/dL 10/05/2024 7:33 AM T [facility] ALKALINE PHOSPHATASE 114 39 - 130 U/L 10/05/2024 7:33 AM T [facility] AST 8 <=41 U/L 10/05/2024 7:33 AM T [facility] ALT 5 <=31 U/L 10/05/2024 7:33 AM [facility] BILIRUBIN,TOTAL 0.3 0.3 - 1.2 mg/dL 10/05/2024 7:33 AM [facility] EGFR Non-Race Dependent >90 >=60 ml/min/1.7 3sq.m 10/05/2024 7:33 AM EDT [facility] Comment: Reported eGFR is based on the CKD-EPI 2020 equation that does not use a race coefficient. EGFR not calculated due to patient's gender not being defined. Blood Venous blood / Unknown Venipuncture / Unknown 10/05/2024 6:24 AM EDT 10/05/2024 7:02 AM EDT Kay Levi MD LAB BLOOD ORDERABLES Final Res ult [facility] [address] [place] [address], * Strep B screen (10/04/2024 8:55 PM EDT) CULTURE RESULTS POSITIVE FOR GROUP B STREPTOCOCCUS BY NUCLEIC ACID AMPLIFICATION 10/06/2024 12:59 AM EDT [facility] Swab (Vagina/Rectum) 10/04/2024 8:55 PM EDT 10/04/2024 9:15 PM EDT Narrative [facility] - 10/06/2024 12:59 AM EDT Group B streptococci remain universally susceptible to penicillin, ampicillin, and cefazolin. Resistance to clindamycin can occur. Please contact laboratory within 48 hours if clindamycin susceptibility testing is needed. us Evon Clmeent DO MICROBIOLOGY - GENERAL ORDER SONIA Final Result [facility] [address] [place] [address], * ABO Rh Repeat (10/04/2024 4:48 PM EDT) Only the most recent of2 resultswithin the time period is included. ABO A 10/04/2024 7:34 PM EDT [facility] RH Positive 10/04/2024 7:34 PM EDT [facility] Blood Venous blood / Unknown Venipuncture / Unknown 10/04/2024 4:48 PM EDT 10/04/2024 6:38 PM EDT us Binh Yung MD BLOOD BANK TEST ORDERABLES Fin al Result Performing Organization Address [facility]/ZIP Co de Phone Number [facility] [place] [address] [place] [address], [facility] [address] [place] [address], * (ABNORMAL) Urine protein creatinine ratio (10/04/2024 3:40 PM EDT) URINE PROTEIN, RANDOM (MG/L) 140(H) <120 mg/L 10/04/2024 5:09 PM EDT [facility] URINE CREATININE,RDM 28.24 mg/dL 10/04/2024 5:09 PM EDT [facility] U/PRO/AUTO CLUTCH SPECIALIST RATIO CALC 0.50(H) <=0.20 10/04/2024 5:09 PM EDT [facility] Urine Urine specimen collection, clean catch / Unknown 10/04/2024 3:40 PM EDT 10/04/2024 4:23 PM EDT Narrative [facility] - 10/04/2024 5:09 PM EDT Nephrotic Syndrome is associated with ratios >3.5 us Yvon Post MD URINE ORDERABLES Final Result Performing Organization Address City/[facility]/ZIP Co de Phone Number [facility] [address] [place] [address], * Buprenorphine, urnie (10/04/2024 3:40 PM EDT) BUPRENORPHINE, URINE QUALITATIVE Negative Negative 10/04/2024 5:09 PM EDT [facility] Urine Urine specimen collection, clean catch / Unknown 10/04/2024 3:40 PM EDT 10/04/2024 4:23 PM EDT [facility] - 10/04/2024 5:09 PM EDT Urine Buprenorphine cut of value = 10 ng/mL This report is intended for use in clinical monitoring or management of patients. us Yvon Post MD URINE ORDERABLES Final Result Performing Organization Address [facility]/ZIP Co de Phone Number [facility] [address] [place] [address], [place] [phone] * Fentanyl, Urine Qualitative (10/04/2024 3:40 PM EDT) FENTANYL, URINE QUAL. Negative Negative 10/04/2024 5:09 PM EDT [facility] Urine Urine specimen collection, clean catch / Unknown 10/04/2024 3:40 PM EDT 10/04/2024 4:23 PM EDT [facility] - 10/04/2024 5:09 PM EDT Fentanyl screening cutoff = 5ng/ml This report is intended for use in clinical monitoring or management of patients. us Yvon Post MD URINE ORDERABLES Final Result Performing Organization Address [facility] Co de Phone Number [facility] [address] [place] [address], [place] [phone] * Drug Screen, Urine (10/04/2024 3:40 PM EDT) AMPHETAMINE/METHAMP Negative Negative 10/04 5:09 PM EDT [facility] Comment:AMPH/METH screening cut off = 1000 ng/mL COCAINE METABOLITE Negative Negative 2024 5:09 PM EDT [facility] Comment:Cocaine screening cu t off value = 300 ng/mL ECSTASY Negative Negative 10/04/2024 5:09 PM EDT [facility] Comment:Ecstasy screening cu t off value = 500 ng/mL METHADONE Negative Negative 10/04/2024 5:09 PM EDT [facility] Comment:Methadone screening cut off value = 300 ng/mL. OPIATES Negative Negative 10/04/2024 5:09 PM EDT [facility] Comment: Opiates screening cut off value = 300 ng/mL This test is used for the detection of codeine, hydrocodone (>1000 ng/mL), morphine and hydromorphone (>900 ng/mL) in urine. OXYCODONE Negative Negative 10/04/2024 5:09 PM EDT [facility] Comment: Oxycodone screening cut off value = 300 ng/mL This test is used for the detection of oxycodone and oxymorphone in urine. PHENCYCLIDINE Negative Negative 10/04/2024 5:09 PM EDT [facility] Comment:Phencyclidine screen ing cut off value = 25 ng/mL CANNABINOIDS Negative Negative 10/04/2024 5:09 PM EDT [facility] Comment:Cannabinoids/THC scr eening cut off value = 50 ng/mL Urine Barbiturates Negative Negative 2024 5:09 PM EDT [facility] Comment:Barbiturates screeni ng cut off value = 200 ng/mL BENZODIAZEPINES Negative Negative 5:09 PM EDT [facility] Comment:Benzodiazepines scre ening cut off value = 200 ng/mL Urine Urine specimen collection, clean catch / Unknown 10/04/2024 3:40 PM EDT 10/04/2024 4:23 PM EDT us Yvon Post MD URINE ORDERABLES Final Result [facility] [address] [place] [address], [place] [phone] * [place] [facility] COMPREHENSIVE ANATOMIC SURVEY (10/04/2024 3:20 PM EDT) Anatomical Region Laterality Modality OB-MOLD MAKER HELPER Ultrasound 10/04/2024 2:51 PM EDT Narrative 10/04/2024 5:21 PM EDT NAME: BASILIO ALARCON: [id number] : 1995 SEX: F Accession Number: [id number] ORDERING PHYSICIAN: YVON POST REFERRING PHYSICIAN: LUCÍA LEDESMA Coding ----- --------- Procedures [id number]: Ultrasound, uterus, real time with image documentation, [...] EFW (oz) 8 oz EFW by: Hadlock ([id number]) Extended Tibia 47.6 mm 28w 6d 7% [employer] Advisor 3.0 mm CM 5.2 mm 7% Nicolaides [...] Heart / Thorax 4-chamber view. 3-vessel view. 9-ouznej-wccyjoh view. Interventricular septum. Great vessels. Diaphragm. Abdomen [...] ALARCON : 1995 SEX: F Accession Number: [id number] ORDERING PHYSICIAN: YVON POST REFERRING PHYSICIAN: LUCÍA LEDESMA Coding ----- --------- Procedures [id number]: Ultrasound, uterus, real time with imagedocumentation, and [...] EFW (oz) 8 oz EFW by: Hadlock ([id number]) Extended Tibia 47.6 mm 28w 6d 7% [employer]visor 3.0 mm CM 5.2 mm 7% Nicolaides [...] Heart / Thorax 4-chamber view. 3-vessel view. 2-lzwlgc-tjcdohz view.Interventricular septum. Great vessels. Diaphragm. Abdomen Kidneys. [...] byprimary OB provider unless otherwise specified by [facility]. Results forwarded to ordering provider so they can follow up with thepatient as necessary. Yvon Post MD IMG US ORDERABLES Final Resul t * Syphilis Total (Unknown Syphilis Status) (10/04/2024 1:02 PM EDT) [facility] SYPHILIS TOTAL <0.2 <=0.8 AI 10/04/2024 3:16 PM EDT [facility] Blood Venous blood / Unknown Venipuncture / Unknown 10/04/2024 1:02 PM EDT 10/04/2024 1:13 PM EDT Narrative [facility] - 10/04/2024 3:16 PM EDT NON REACTIVE No serologic evidence of infection to Treponema pallidum. Repeat testing may be considered in patients with suspected acute or primary syphilis in 2 to 4 weeks. Kay Levi MD LAB BLOOD ORDERABLES Final Res ult [facility] [address] [place] [address], * Type and screen(includes indirect reanna) (10/04/2024 1:02 PM EDT) Only the most recent of2 resultswithin the time period is included. [facility] ABO A 10/04/2024 2:03 PM EDT [facility] RH Positive 10/04/2024 2:03 PM EDT [facility] Antibody Screen Negative 10/04/2024 2:03 PM EDT [facility] Blood Venous blood / Unknown Venipuncture / Unknown 10/04/2024 1:02 PM EDT 10/04/2024 1:19 PM EDT Kay Levi MD BLOOD BANK TEST ORDERABLES Paco walter Result - Final [facility] [place] [address] [place] [address], [facility] [address] [place] [address], [place] * (ABNORMAL) CBC and differential (10/03/2024) [...] ORDERABLES Final Resu lt Performing Organization Address [facility]/ZIP Co de Phone Number MANUALLY TRANSCRIBED RESULTS * Basic Metabolic Panel (10/03/2024) Pathologist [facility] BUN 10 4 - 21 mg/dL MANUALLY TRANSCRIBED RESULTS Creatinine 0.8 0.5 - 1.1 mg/dL MANUALLY TRANSCRIBED RESULTS Blood Venous blood / Unknown Lucía R Angel DO LAB BLOOD ORDERABLES Final Resu lt Performing Organization Address [facility]/ZIP Co de Phone Number MANUALLY TRANSCRIBED [...]
--- OUTSIDE RECORDS SUMMARY | 2024-10-17 10:15 | XMS_ITS | Clinical Summary ---
Author Organization [facility] 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 150 each 3 5 Active Blood Glucose Monitoring Suppl (D-Care Glucometer) w/Device kitIndications: Gestational diabetes mellitus (GDM), antepartum, gestational diabetes method of control unspecified (HHS-HCC),Willamina walter glucose tolerance test 1 kit Daily Use four times daily to check FSBS. In the morning prior to breakfast & 1 hour after each meal for a total of 4times daily. 1 kit 5 026 Active labetalol (Normodyne) 300 MG tabletIndicatio ns:Hypertension affecting in third trimester ([facility]) Take 1 tablet (300 mg) by mouth [...] antepartum, gestational diabetes method of control unspecified ([facility]) Use as instructed 100 each 4 5 025 Discontinu ed(Entered in error) Encounters Date Type Department Care Team Description 10/10/2024 Clinisync Result Encounter [facility] External Department Unsolicited Lucía Ortiz DO 10/08/2024 2:20 PM EDT [place] [address] Lucía Ortiz DO Third trimester ([facility]); 31 weeks gestation of ([facility]); Hypertension affecting in third trimester ([facility]) 10/08/2024 Bamboo [place] [phone] Lucía Ortiz DO 10/04/2024 Clinisync Result Encounter NOMS External Department Unsolicited Lucía Ortiz, DO 10/03/2024 2:20 PM ED[place] [address] Lucía Ortiz, DO Third trimester ([facility]); Diet controlled gestational diabetes mellitus (GDM), antepartum ([facility]); Gestational diabetes mellitus (GDM), antepartum, gestational diabetes method of control unspecified ([facility]) 10/03/2024 2:00 PM EDT Ancillary [place] [address] Size of fetus inconsistent with dates in second trimester ([facility]) 10/03/2024 Clinisync Result Encounter NOMS External Department Unsolicited Lucía Ortiz, DO 10/03/2024 Clinisync Result Encounter NOMS External Department Unsolicited Lucía Ortiz, DO 10/03/2024 Telephone [facility] [place] Arm[place] [address] Jane Lang LPN 09/17/2024 1:30 PM EDT [place] [address] Gwen Mccormick, PA Size of fetus inconsistent with dates in second trimester ([facility]) (Primary Dx); 28 weeks gestation of ([facility]) 09/17/2024 Bamboo flowsheet [facility] Luis Armando [address] [place] [address] Gwen Mccormick PA 09/11/2024 Telephone [facility] [place] Armando [address] [place] [address] Lucía Ortiz, DO 08/29/2024 1:00 PM EDT [place] [address] Encounter for follow-up ultrasound of anatomy ([facility]) 08/28/2024 [place] [phone] Berta Yoder MA 08/20/2024 2:10 PM EDT [place] [phone] Lucía Ortiz, DO Well woman exam with routine gynecological exam; Second trimester ([facility]); 24 weeks gestation of ([facility]); Exposure to STD; Need for maternal serum alpha-protein (MSAFP) screening ([facility]); Encounter for follow-up ultrasound of anatomy ([facility]) 08/20/2024 Clinisync Result Encounter NOMS External Department Unsolicited Lucía Ortiz, 08/20/2024 External Result Encounter NOMS External Department Unsolicited Lucía Ortiz, DO 08/20/2024 Bamboo [place] [address] Lucía Ortiz, 07/23/2024 2:30 PM ED[place] [address] Gwen Mccormick PA Second trimester ([facility]); 20 weeks gestation of ([facility]); Need for maternal serum alpha-protein (MSAFP) screening ([facility]) 07/23/2024 1:30 PM EDT [place] [address] Screening, , for anatomic survey ([facility]) from Last 3 Months Social History [...] EDT Routine [facility] Luis Armando O[facility] [address] [place] [address] AngelLucía johnson, [address] [facility] [address] [place] [address] Health Maintenance Due Date Last Done Comments Influenza Vaccine (#1) 2024 11/26/2011, 2003, 03/01/2003 Cervical Cancer Screening 08/20/2029 HPV/Cotest 08/20/2029 Pap Smear 08/20/2029 08/20/2024 Procedures Procedure Name Priority Date/Time Associated Diagnosis Comments US OB BPP W NON-STRESS 10/10/2024 2:29 PM EDT POCT URINALYSIS DIPSTICK Routine 10/08/2024 3:15 PM EDT Third trimester ([facility]) 31 weeks gestation of ([facility]) MHPT FIBRINOGEN Routine 10/04/2024 8:46 AM [...] Routine 10/03/2024 2:28 PM EDT Third trimester ([facility]) US OB FOLLOW UP TRANSABDOMINAL APPROACH Routine 10/03/2024 2:16 PM EDT Size of fetus inconsistent with dates in second trimester ([facility]) US OB LIMITED 1+ FETUSES Routine 08/29/2024 1:23 PM EDT Encounter for follow-up ultrasound of anatomy ([facility]) RECURRENT VAGINITIS (HTRX) Routine 08/20/2024 3:53 PM EDT POCT URINALYSIS DIPSTICK Routine 08/20/2024 2:57 PM EDT Second trimester ([facility]) IGP,APTIMA HPV,AGE GDLN Routine 08/20/2024 2:32 PM EDT PAP SMEAR Routine 08/20/2024 12:00 AM EDT POCT URINALYSIS DIPSTICK Routine 07/24/2024 9:46 AM EDT Second trimester ([facility]) US OB 14+ WEEKS ANATOMY SCAN Routine 07/23/2024 2:27 PM EDT Screening, , for anatomic survey ([facility]) from Last 3 Months Results * US OB BPP W NON-STRESS (10/10/2024 2:29 PM EDT) Only the most recent of2 resultswithin the time period is included. Anatomical Region Laterality Modality Other 10/10/2024 2:29 PM EDT Narrative 10/10/2024 2:32 PM EDT The [address] [address] Ultrasound Report Signed Patient: DORIAN TOVAR MR#: [id number] : 1995 Acct:[id number] Age/Sex: 29 / F ADM Date: 10/10/24 Loc: [facility] 250-[address]: Lucía Ortiz D.O. Ordering Physician: Lucía rOtiz D.O. Date of Service: 10/10/24 Procedure(s): US OB BPP w non-stress Accession Number(s): [id number] cc: Lucía Ortiz D.O.; Physician,Non-Staff [place] [id number] Patient Name: DORIAN TOVAR MRN: [id number] date: 1995 Sex: F Assigned Patient Location: [facility] Current Patient Location: [facility] Accession/Order Number: [id number] Exam Date: 10/10/2024 14:02 Report Date: 10/10/2024 14:29 At the request of: LUCÍA ORTIZ DO Procedure: US OB BPP w non-stress Biophysical profile. Reason for exam: Gestational diabetes COMPARISON: 10/03/2024 TECHNIQUE: Transabdominal imaging of the gravid uterus was obtained. FINDINGS: The promotions assistant sales marketing reports a BPP of 8 out of 8. SCOOTER is normal at 11.7 cm. heart rate 134 bpm. US/US OB BPP w non-stress IMPRESSION: BPP 8 out of 8. Impression dictated by: Kahlil Voss Jr., D.O. 10/10/2024 2:29 PM Dictation Location: [place] [address] Electronically authenticated by: [id number] Y Date: 10/10/2024 14:29 Dictated By: Kahlil Voss M.D. Signed By: 10/10/24 1432 DD/ 1429 TD/TT: Forestry Faculty Member: Procedure Note Radiology, Radiologist, MD - 10/10/2024 [place] [address] Ultrasound Report Signed Patient: DORIAN TOVAR JMR#: [id number] : 1995Acct:[id number] Age/Sex: 29 / FADM Date: 10/10/24 Loc: [facility] 250-[address]: Lucía Ortiz D.O. Ordering Physician: Lucía Ortiz D.O. Date of Service: 10/10/24 Procedure(s): US OB BPP w non-stress Accession Number(s): [id number] cc: Lucía Ortiz D.O.; Physician,Non-Staff MJanak [place] [id number] Patient Name: DORIAN TOVAR MRN: [id number] date: 1995 Sex: F Assigned Patient Location: [facility] Current Patient Location: [facility] Accession/Order Number: [id number] Exam Date: 10/10/2024 14:02 Report Date: 10/10/2024 14:29 At the request of: LUCÍA ORTIZ DO Procedure: US OB BPP w non-stress Biophysical profile. Reason for exam: Gestational diabetes COMPARISON: 10/03/2024 TECHNIQUE: Transabdominal imaging of the gravid uterus was obtained. FINDINGS: The promotions assistant sales marketing reports a BPP of 8 out of 8. SCOOTER is normal at11.7 cm. heart rate 134 bpm. US/US OB BPP w non-stress IMPRESSION: BPP 8 out of 8. Impression dictated by: Kahlil Voss Jr., D.O. 10/10/2024 2:29 PM Dictation Location: [place] [address] Electronically authenticated by: [id number] Y Date: 4:29 Dictated By: Kahlil Voss M.D. Signed By:10/10/24 1432 DD/ 1429 TD/TT: Forestry Faculty Member: Lucía Ortiz DO CLINISYNC IMAGING Final Result [...] 0.55 - 1.02 mg/dL TBH TBH EGFR-AF TUVALUAN >60 >=60 mL/min/1.7 3m 2 TBH TBH EGFR-NON AF TUVALUAN >60 >=60 mL/min/1.7 3m 2 TBH 10/04/2024 8:46 AM EDT 10/04/2024 8:50 AM EDT Narrative CLINISYNC - 10/04/2024 9:33 AM EDT Lucía Angel DO CLINISYNC Final Result CLINISYNC [facility] * SRMCO PROTHROMBIN TIME INR W/O [...] Final Result Performing Organization Address [facility] Co de Phone Number [facility] * (ABNORMAL) MHPT FIBRINOGEN (10/04/2024 8:46 AM EDT) Only the most recent of2 resultswithin the time period is included. FIBRINOGEN 575(H) 200 - 400 mg/dL TBH 10/04/2024 8:46 AM EDT 10/04/2024 8:50 AM EDT Narrative CLINISYNC - 10/04/2024 9:53 AM EDT [facility] Final Result Performing Organization Address [facility] de Phone Number [facility] * (ABNORMAL) [facility] AST (10/04/2024 8:46 AM EDT) Only the most recent of2 resultswithin the time period is included. ASPARTATE AMINO TRANSFERASE 14(L) 15 - 37 U/L TBH 10/04/2024 8:46 AM EDT 10/04/2024 8:50 AM EDT Narrative CLINISYNC - 10/04/2024 9:33 AM EDT [facility] Angel DO CLINISYNC Final Result Performing Organization Address [facility] de Phone Number [facility] * [facility] APTT (10/04/2024 8:46 AM EDT) Only the most recent of2 resultswithin the time period is included. PARTIAL THROMBOPLASTIN TIME 26.8 22.3 - 36.2 sec TBH 10/04/2024 8:46 AM EDT 10/04/2024 8:50 AM EDT Narrative CLINISYNC - 10/04/2024 9:53 AM EDT us Lucía Angel DO CLINISYNC Final Result Performing Organization Address City/[facility]/ZIP Co de Phone Number CLINISYNC TB * CCF ALT (10/04/2024 8:46 AM EDT) Only the most recent of2 resultswithin the time period is included. ALANINE AMINOTRANSFERASE 14 14 - 59 U/L TBH 10/04/2024 8:46 AM EDT 10/04/2024 8:50 AM EDT Narrative CLINISYNC - 10/04/2024 9:33 AM EDT us Lucía Angel DO CLINISYNC Final Result Performing Organization Address [facility] Co de Phone Number CLINISYNC TB * ALL URIC ACID (10/04/2024 8:46 AM EDT) Only the most recent of2 resultswithin the time period is included. URIC ACID 5.4 2.6 - 6.0 mg/dL TBH 10/04/2024 8:46 AM EDT 10/04/2024 8:50 AM EDT Narrative CLINISYNC - 10/04/2024 9:33 AM EDT us Lucía Angel DO CLINISYNC Final Result Performing Organization Address [facility] Co de Phone Number CLINISYNC TB * ALL LDH (10/04/2024 8:46 AM EDT) LACTATE DEHYDROGENASE 153 81 - 234 U/L TBH 10/04/2024 8:46 AM EDT 10/04/2024 8:50 AM EDT Narrative CLINISYNC - 10/04/2024 9:35 AM EDT us Lucía Angel DO CLINISYNC Final Result Performing Organization Address City/[facility]/ZIP Co de Phone Number CLINISYNC TB * [...] Final Result Performing Organization Address [facility] Co de Phone Number CLINJOSE ALEJANDRO TB * (ABNORMAL) ALL BUN (10/04/2024 8:46 AM EDT) Only the most recent of2 resultswithin the time period is included. BLOOD UREA NITROGEN 6.0(L) 7.0 - 18.0 mg/dL TBH 10/04/2024 8:46 AM EDT 10/04/2024 8:50 AM EDT Narrative CLINISYNC - 10/04/2024 9:33 AM EDT us Lucíaphong Johnso DO CLINISYNC Final Result Performing Organization Address [facility] de Phone Number KAITLIN TB * [...] DO JELANIISYNC Final Result Performing Organization Address [facility] de Phone Number CLINSTEPHONNC TB * [...] PHD at 04-Oct-2024 08:06:58 AM [facility] Procedure Note Una Darnell MD - [...] signed by UNA DARNELL II, MD, PHD [id number] 08:06:58 AM [facility] us Gwen SAAVEDRA IMG OB US [...] 24.689 ppm 08/21/2024 6:26 AM EDT [facility] ATOPOBIUM VAGINAE Not Detected 19.961 - 24.689 ppm 08/21/2024 6:26 AM EDT [facility] BVAB 2,3 (BACTERIAL VAGINOSIS ASSOCIATED BACTERIA 2, 3); MOBILUNCUS SPP 0 19.961 - 24.689 ppm 08/21/2024 6:26 AM EDT [facility] BVAB 2,3 (BACTERIAL VAGINOSIS ASSOCIATED BACTERIA 2, 3); MOBILUNCUS SPP Not Detected 19.961 - 24.689 ppm 08/21/2024 6:26 AM EDT [facility] FORREST ALBICANS, PARAPSILOSIS, TROPICALIS 0 19.961 - 30.770 ppm 08/21/2024 6:26 AM EDT [facility] FORREST ALBICANS, PARAPSILOSIS, TROPICALIS Not Detected 19.961 - 30.770 ppm 08/21/2024 6:26 AM EDT [facility] FORREST GLABRATA 0 23.000 - 32.138 ppm 08/21/2024 6:26 AM EDT [facility] FORREST GLABRATA Not Detected 23.000 - 32.138 ppm 08/21/2024 6:26 AM EDT [facility] FORREST KRUSEI 0 23.000 - 32.271 ppm 08/21/2024 6:26 AM EDT [facility] FORREST KRUSEI Not Detected 23.000 - 32.271 ppm 08/21/2024 6:26 AM EDT [facility] CHLAMYDIA TRACHOMATIS 0 23.000 - 31.467 ppm 08/21/2024 6:26 AM EDT [facility] CHLAMYDIA TRACHOMATIS Not Detected 23.000 - 31.467 ppm 08/21/2024 6:26 AM EDT [facility] GARDNERELLA VAGINALIS 0 19.961 - 24.689 ppm 08/21/2024 6:26 AM EDT [facility] GARDNERELLA VAGINALIS Not Detected 19.961 - 24.689 ppm 08/21/2024 6:26 AM EDT [facility] MEGASPHAERA (TYPES 1, 2) 0 19.961 - 24.689 ppm 08/21/2024 6:26 AM EDT [facility] MEGASPHAERA (TYPES 1, 2) Not Detected 19.961 - 24.689 ppm 08/21/2024 6:26 AM EDT [facility] NEISSERIA GONORRHOEAE 0 23.000 - 32.117 ppm 08/21/2024 6:26 AM EDT [facility] NEISSERIA GONORRHOEAE Not Detected 23.000 - 32.117 ppm 08/21/2024 6:26 AM EDT [facility] TRICHOMONAS VAGINALIS 0 23.000 - 32.119 ppm 08/21/2024 6:26 AM EDT [facility] TRICHOMONAS VAGINALIS Not Detected 23.000 - 32.119 ppm 08/21/2024 6:26 AM EDT [facility] MYCOPLASMA GENITALIUM 0 19.961 - 24.689 ppm 08/21/2024 6:26 AM EDT [facility] MYCOPLASMA GENITALIUM Not Detected 19.961 - 24.689 ppm 08/21/2024 6:26 AM EDT [facility] Tissue 08/20/2024 3:53 PM EDT 08/21/2024 1:25 AM EDT us Lucía Ortiz DO LAB BLOOD ORDERABLES Final Resul t [facility] [address] [place] [address] * IGP,APTIMA HPV,AGE GDLN (08/20/2024 2:32 PM EDT) AGE GDLN ACOG TESTING Note . [facility] Comment: TESTS RESULT FLAG UNITS REF RANGE LAB Clinician Provided Cytology Information Source.............Cervix No. of containers..01 ThinPrep Vial Age Algo ACOG Haydee... FLAG LEGEND: L-Low Normal,H-High Normal,LL-Alert Low,HH-Alert High <-Panic Low,>-Panic High,A-Abnormal,AA-Critical Abnormal Performed at: 01 [address] [place] [address] Glory Schaffer MD, IGP, APTIMA HPV, RFX 16/18,45 Note . [facility] Comment: TESTS RESULT FLAG UNITS REF RANGE LAB DIAGNOSIS: 02 NEGATIVE FOR INTRAEPITHELIAL LESION OR MALIGNANCY. Specimen adequacy: 02 Satisfactory for evaluation. No endocervical component is identified. Performed by: 02 Tai Darling, [place] (ASCP) . 02 Note: Note 02 The [...] <-Panic Low,>-Panic High,A-Abnormal,AA-Critical Abnormal Performed at: [address] [address] Glory Schaffer MD, HPV APTIMA Negative Negative [facility] Comment: This nucleic acid amplification test detects fourteen high- risk HPV types (16,18,31,33,35,39,45,51,52,56,58,59,66,68) without differentiation. Performed at: =[address] [id number] Cord[employer] Sales Representative: Glory Schaffer MD, Phone: [phone] Performed at: [address] [id number] Cordage Sales Representative: Glory Schaffer MD, Phone: [phone] 08/20/2024 2:32 PM EDT 08/20/2024 9:44 PM EDT Narrative CLINISYNC - 08/23/2024 3:08 PM EDT BRUSH-SPATULA CERVIX Lucía Angel DO LAB BLOOD ORDERABLES Final Resul t Performing Organization Address [facility] Co de Phone Number [facility] * Pap Smear (08/20/2024 12:00 AM EDT) Swab Cervical swab / Unknown Lucía Angel DO LAB CYTOLOGY ORDERABLES Final Re sult Performing Organization Address [facility] Co de Phone Number EXTERNAL LAB * [...] II, MD, PHD at 25-Jul-2024 08:22:22 AM [facility] Procedure Note Una Darnell MD - [...] UNA DARNELL II, MD, PHD 08:22:22 AM [facility] us Rubina Conroy METAL PATTERN MAKER IMG OB US PROCEDURES Final Re sult from Last [address] [place] [address] MEDICAID [place]
--- OUTSIDE RECORDS SUMMARY | 2024-10-17 10:15 | XMS_ITS | Encounter Summary ---
Author Organization [facility] Address [address] [place] [address] Care Team Providers Care Survey Methodologist Name Role Phone Unavailable Primary Care Provider Unavailabl e Encounter Details Date Type Department Care Team (Late st Contact Info) Description 10/03/2024 Clinisync Result Encounter [facility] External Department Unsolicited Zack Ortiz DO [address], [facility] Social History Tobacco Use Types Packs/Day [...] [facility] [place] [facility] [address] [place] [phone] Zack Ortiz DO [address] [place] [address] documented as of this encounter Procedures Procedure [...] DO CLINISYNC Final Result Performing Organization Address [facility]/ZIP Co de Phone Number CLINISYNC TB * [facility] ALT (10/03/2024 3:51 PM EDT) ALANINE AMINOTRANSFERASE 14 14 - 59 U/L TB 10/03/2024 3:51 PM EDT 10/03/2024 4:14 PM EDT Narrative CLINISYNC - 10/03/2024 4:30 PM EDT [facility] Angel DO CLIN[facility]NC Final Result Performing Organization Address [facility]/ZIP Co de Phone Number CLINISYNC TB * (ABNORMAL) [facility] AST (10/03/2024 3:51 PM EDT) ASPARTATE AMINO TRANSFERASE 13(L) 15 - 37 U/L TBH 10/03/2024 3:51 PM EDT 10/03/2024 4:14 PM EDT Narrative CLINISYNC - 10/03/2024 4:30 PM EDT Zack Angel DO CLINISYNC Final Result Performing Organization Address [facility]/ZIP Co de Phone Number CLINISYNC TB * ALL URIC ACID (10/03/2024 3:51 PM EDT) URIC ACID 5.3 2.6 - 6.0 mg/dL TB 10/03/2024 3:51 PM EDT 10/03/2024 4:14 PM EDT Narrative CLINISYNC - 10/03/2024 4:30 PM EDT us Zack Angel DO CLINISYNC Final Result CLINISYNC TBH * TBH CREATININE (10/03/2024 3:51 PM EDT) CREATININE 0.84 0.55 - 1.02 mg/dL TBH TBH EGFR-AF VINCENTIAN >60 >=60 mL/min/1.7 3m 2 TBH TBH EGFR-NON AF VINCENTIAN >60 >=60 mL/min/1.7 3m 2 TBH 10/03/2024 [...]
--- NOTE | 2024-10-17 10:28 | US_ITS ---
The [place] [id number] Patient Name: DORIAN RICHMOND MRN: [id number] date: 1995 Sex: F [facility] Accession/Order Number: [id number] Exam Date: 10/17/2024 10:30 Report Date: 10/17/2024 11:04 At the request of: LUCÍA LEDESMA DO Procedure: US OB BPP w non-stress BIOPHYSICAL PROFILE: CLINICAL INFORMATION: Gestational diabetes mellitus COMPARISON: 10/10/2024 There is a single live intrauterine gestation in cephalic presentation. The reported gestational age is 32 weeks 6 days. The heart rate measures 136 beats per minute. FINDINGS: TONE: 1 or more episodes of activity extension and flexion of extremity or opening and closing of the hand [Y] 2/2 GROSS BODY MOVEMENTS: 3 or more discrete body or limb movements [Y] 2/2 BREATHING MOVEMENTS: 1 or more episodes of breathing lasting at least 30 seconds [Y] 2/2 SCOOTER: A single deepest vertical pocket of amniotic fluid greater than 2 cm [Y] 2/2 SCOTOER: 10.6 cm . This is in low-normal range. Total score: 09/21 US/ OB BPP w non-stress IMPRESSION: NORMAL BIOPHYSICAL PROFILE Impression dictated by: Jane Kee M.D. 10/17/2024 11:04 AM Dictation Location: [employer] Electronically authenticated by: [id number] Y Date: 10/17/2024 11:04
[2024-10-17 10:47] VITALS: BP 145/94; PULSE 75
[2024-10-17 10:48] VITALS: BP 127/75; PULSE 77
--- OUTSIDE RECORDS SUMMARY | 2024-10-17 12:19 | XMS_ITS | CCD ---
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 Name Role Phone DR RORO GARNER Attending [...] q4hr for headache, 12 tab(s), Refill(s) 0, [id number], 165, cm, 09/15/20 22:47:00 EDT, Height/Length Dosing, 114, kg, 09/15/20 22:47:00 EDT, Weight Dosing Start Date: 09/16/20 Status: Ordered Albuterol (20 sources) beta2-Adrenergic Agonist take 2 puff(s) [...] # 28 cap(s), Refills(s) 0, Pharmacy: [id number], 165, cm, 04/18/24 11:46:00 EST, Height/Length Dosing, 124.5, kg, 04/18/24 11:46:00 EST, Weight Dosing Start Date: 04/18/24 Stop Date: 04/25/24 Status: Ordered atogepant 60 MG Oral Tablet [Qulipta] (1 source) Start: 07-21-2023 take 1 tablet by mouth once daily Qulipta 60 mg oral tablet 60 mg = 1 tab(s), Oral, Daily, # 30 tab(s), Refills(s) 3, [id number] 165.1, cm, 07/08/23 12:52:00 EDT, Height/Length Dosing, 127, kg, 07/08/23 12:52:00 EDT, Weight Dosing Start Date: 07/21/23 Status: Ordered Blood Glucose Monitoring Suppl (D-Care Glucometer) w/Device kit (20 sources) Start: 06-18-2024 End: 06-18-2025 Blood Glucose Monitoring Suppl (D-Care Glucometer) w/Device kit Indications: Gestational diabetes mellitus (GDM), antepartum, gestational diabetes method of control unspecified ([facility]) , Elevated glucose tolerance test [...] day(s), # 14 cap(s), Refills(s) 0, Pharmacy: [id number], 165.1, cm, 11/10/21 12:16:00 EDT, Height/Length Dosing, 128, kg, 07/17/21 9:33:00 EDT, Weight Dosing Start Date: 11/10/21 Stop Date: 11/17/21 Status: Ordered ciprofloxacin 500 mg oral tablet (6 sources) Quinolone Antimicrobial Start: 02-17-2022 take 1 tablet by mouth twice daily Cipro 500 mg Tab 500 mg = 1 tab(s), Oral, BID, # 14 tab(s), Refills(s) 0, Pharmacy: [id number], 165.1, cm, 02/17/22 16:15:00 EST, Height/Length [...] pain, # 12 caplet(s), Refills(s) 0, Pharmacy: [id number], 165, cm, 12/15/20 1:59:00 EDT, Height/Length [...] cramping, # 12 cap(s), Refills(s) 0, Pharmacy: [id number], 165, cm, 10/17/22 13:07:00 EDT, Height/Length Dosing, 123.3, kg, 10/17/22 13:07:00 EDT, Weight Dosing Start Date: 10/17/22 Status: Ordered Flonase 0.05 mg/inh nasal spray (14 sources) Start: 09-18-2020 take 1 spray(s) nasal route once daily Flonase 0.05 mg/inh nasal spray 1 spray(s), Nasal, Daily, 16 gram, Refill(s) 3, each nostril, [id number], 165, cm, 09/18/20 9:51:00 EDT, Height/Length Dosing, 116, kg, 09/18/20 9:51:00 EDT, Weight Dosing Start Date: 09/18/20 Status: Ordered fluticasone propionate 0.05 mg/actuat metered dose nasal spray (3 sources) Corticosteroid Start: 09-18-2020 take 1 spray(s) nasal route once daily Flonase 0.05 mg/inh nasal spray 1 spray(s), Nasal, Daily, 16 gram, Refill(s) 3, each nostril, [id number], 165, cm, 09/18/20 9:51:00 EDT, Height/Length [...] Active labetalol hydrochloride 300 mg oral tablet (5 sources) beta-Adrenergic Mariely Start: 10-08-2024 End: 10-08-2025 take 1 tablet by mouth in the morning, then take 1 tablet by mouth in the evening, then take 1 tablet by mouth at bedtime labetalol (Normodyne) 300 MG tablet Indications: Hypertension affecting in third trimester ([facility]) Take 1 tablet (300 mg) by [...] for 10 day(s), 20 tab(s), Refill(s) 0, [id number], 165.1, cm, 07/08/23 12:52:00 EDT, Height/Length Dosing, 127, kg, 07/08/23 12:52:00 EDT, Weight Dosing Start Date: 07/08/23 Stop Date: 07/18/23 Status: Ordered Start: 07-08-2023 take 1 tablet by lencho th every twelve hours [facility] Allergy Relief-D12 5-120 MG 12 hr tablet [...] day(s), # 21 tab(s), Refills(s) 0, Pharmacy: [id number], 165.1, cm, 02/17/22 16:15:00 EST, Height/Length [...] BID, # 28 tab(s), Refills(s) 0, Pharmacy: [id number], 165, cm, 12/15/20 1:59:00 EDT, Height/Length Dosing, 113, kg, 12/15/20 1:59:00 EDT, Weight Dosing Start Date: 12/15/20 Status: Ordered Start: 10-01-2020 take 1 tablet by lencho twice daily as needed for pain Naprosyn 500 mg Tab 500 mg = 1 tab(s), Oral, BID, PRN for pain, # 20 tab(s), Refills(s) 0, Pharmacy: [id number], 165.1, cm, 11/10/21 12:16:00 EDT, Height/Length Dosing, 128, kg, 07/17/21 9:33:00 EDT, Weight Dosing Start Date: 11/10/21 Status: Ordered phenazopyridine hydrochloride 200 mg oral tablet (1 source) Start: 11-10-2021 End: 11-12-2021 take 1 tablet by mouth three times daily Pyridium 200 mg Tab 200 mg = 1 tab(s), Oral, TID, X 2 day(s), # 6 tab(s), Refills(s) 0, Pharmacy: [id number], 165.1, cm, 11/10/21 12:16:00 EDT, Height/Length [...] q6hr, # 14 tab(s), Refills(s) 0, Pharmacy: [id number], 165, cm, 06/04/21 14:38:00 EDT, Height/Length [...] day(s), # 15 tab(s), Refills(s) 0, Pharmacy: [id number], 165.1, cm, 01/11/23 16:14:00 EST, Height/Length Dosing, 127, kg, 01/11/23 16:14:00 EST, Weight Dosing Start Date: 01/11/23 Stop Date: 01/16/23 Status: Ordered Ventolin HFA 90 mcg/inh Aerosol-Adpt (1 source) Start: 04-18-2024 take 1 puff(s) by inhalation every six hours for wheezing Ventolin HFA 90 mcg/inh Aerosol-Adpt 1 puff(s), Inhalation, q6hr for wheezing, 18 gram, Refill(s) 0, [id number], 165, cm, 04/18/24 11:46:00 EST, Height/Length Dosing, 124.5, kg, 04/18/24 11:46:00 EST, Weight Dosing Start Date: 04/18/24 Status: Ordered Zofran ODT 4 mg Tab-Dis (20 sources) Start: 10-17-2022 take 1 tablet by mouth every eight hours as needed for nausea Zofran ODT 4 mg Tab-Dis 4 mg = 1 tab(s), Oral, q8hr, PRN Nausea/Vomiting, # 16 tab(s), Refills(s) 0, Pharmacy: [id number], 165, cm, 10/17/22 13:07:00 EDT, Height/Length Dosing, 123.3, kg, 10/17/22 13:07:00 EDT, Weight Dosing Start Date: 10/17/22 Status: Ordered Start: 02-17-2022 take 1 tablet by lencho th every six hours as needed for nausea Zofran ODT 4 mg Tab-Dis 4 mg = 1 tab(s), Oral, q6hr, PRN Nausea/Vomiting, # 12 tab(s), Refills(s) 0, [id number] 165.1, cm, 02/17/22 16:15:00 EST, Height/Length Dosing, 122, kg, 02/17/22 16:15:00 EST, Weight Dosing Start Date: 02/17/22 Status: Ordered Start: 02-25-2021 take 1 tablet by lencho th every eight hours Zofran ODT 4 mg Tab-Dis 4 mg = 1 tab(s), Oral, q8hr, # 12 tab(s), Refills(s) 0, Pharmacy: [id number], 165, cm, 02/24/21 23:21:00 EST, Height/Length Dosing, 112, kg, 02/24/21 23:21:00 EST, Weight Dosing Start Date: 02/25/21 Status: Ordered Start: 09-16-2020 take 1 tablet by lencho th every eight hours Zofran ODT 4 mg Tab-Dis 4 mg = 1 tab(s), Oral, q8hr, # 10 tab(s), Refills(s) 0, [id number] 165, cm, 09/15/20 22:47:00 EDT, Height/Length [...] meq/ml nasal spray (17 sources) Start: 09-18-2020 [place] Saline Mist 0.65% nasal spray 2 spray(s), Nasal, QID, 1 EA, Refill(s) 4, [id number], 165, cm, 09/18/20 9:51:00 EDT, Height/Length Dosing, 116, kg, 09/18/20 9:51:00 EDT, Weight Dosing Start Date: 09/18/20 Status: Ordered Start: 09-18-2020 [place] Saline Mis t 0.65% nasal spray 2 [...] Facility US OB BPP W NON-STRESS on 10-17-2024 [place] [address] Ultrasound Report Signed Patient: SABRINA RICHMOND MR#: [id number] : 1995 Acct:[id number] Age/Sex: 29 / F ADM Date: 10/17/24 Loc: [facility] 250-[address]: Zack Ortiz D.O. Ordering Physician: Zack Ortiz D.O. Date of Service: 10/17/24 Procedure(s): US OB BPP w non-stress Accession Number(s): [id number] cc: Zack Ortiz D.O.; Physician,Non-Staff [facility] [place] [id number] Patient Name: SABRINA RICHMOND MRN: [id number] date: 1995 Sex: F Assigned Patient Location: [facility] Current Patient Location: [facility] Accession/Order Number: [id number] Exam Date: 10/17/2024 10:30 Report Date: 10/17/2024 11:04 At the request of: ZACK ORTIZ DO Procedure: US OB BPP w non-stress BIOPHYSICAL PROFILE: CLINICAL INFORMATION: Gestational diabetes mellitus COMPARISON: 10/10/2024 There is a single live intrauterine gestation in cephalic presentation. The reported gestational age is 32 weeks 6 days. The heart rate measures 136 beats per minute. FINDINGS: TONE: 1 or more episodes of activity extension and flexion of extremity or opening and closing of the hand [Y] 2/2 GROSS BODY MOVEMENTS: 3 or more discrete body or limb movements [Y] 2/2 BREATHING MOVEMENTS: 1 or more episodes of breathing lasting at least 30 seconds [Y] 2/2 SCOOTER: A single deepest vertical pocket of amniotic fluid greater than 2 cm [Y] 2/2 SCOOTER: 10.6 cm . This is in low-normal range. Total score: 8/8 US/US OB BPP w non-stress IMPRESSION: NORMAL BIOPHYSICAL PROFILE Impression dictated by: Jane Kee M.D. 10/17/2024 11:04 AM Dictation Location: [place] [address] Electronically authenticated by: [id number] Y Date: 10/17/2024 11:04 Dictated By: Jane Kee M.D. Signed By: 10/17/24 1107 DD/ 1104 TD/TT: Industrial Maintenance Mechanic: [facility] Radiology, Radiologist, MD - 10/17/2024 [place] [address] Ultrasound Report Signed Patient: SABRINA RICHMOND MR#: [id number] : 1995 Acct:[id number] Age/Sex: 29 / F ADM Date: 10/17/24 Loc: [place] [address]- Attending Dr: Zack Ortiz D.O. Ordering Physician: Zack Ortiz D.O. Date of Service: 10/17/24 Procedure(s): US OB BPP w non-stress Accession Number(s): [id number] cc: Zack Ortiz D.O.; Physician,Non-Staff [place] [facility] [place] [address] Patient Name: SABRINA RICHMOND MRN: [facility]:[id number] date: 1995 Sex: F Assigned Patient Location: [facility] Current Patient Location: [facility] Accession/Order Number: [id number] Exam Date: 10/17/2024 10:30 Report Date: 10/17/2024 11:04 At the request of: ZACK ANGEL DO Procedure: US OB BPP w non-stress BIOPHYSICAL PROFILE: CLINICAL INFORMATION: Gestational diabetes mellitus COMPARISON: 10/10/2024 There is a single live intrauterine gestation in cephalic presentation. The reported gestational age is 32 weeks 6 days. The heart rate measures 136 beats per minute. FINDINGS: TONE: 1 or more episodes of activity extension and flexion of extremity or opening and closing of the hand [Y] 2/2 GROSS BODY MOVEMENTS: 3 or more discrete body or limb movements [Y] 2/2 BREATHING MOVEMENTS: 1 or more episodes of breathing lasting at least 30 seconds [Y] 2/2 SCOOTER: A single deepest vertical pocket of amniotic fluid greater than 2 cm [Y] 2/2 SCOOTER: 10.6 cm . This is in low-normal range. Total score: 09/21 US/US OB BPP w non-stress IMPRESSION: NORMAL BIOPHYSICAL PROFILE Impression dictated by: Jane Kee M.D. 10/17/2024 11:04 AM Dictation Location: [facility] Electronically authenticated by: [id number] Y Date: 10/17/2024 11:04 Dictated By: Jane Kee M.D. Signed By: 10/17/24 1107 DD/ 1104 TD/TT: Industrial Maintenance Mechanic: [facility] Radiology Study observation (narrative) [facility] US OB BPP W NON-STRESS Ordered By: Radiologist Radiology on 10-17-2024 [facility] Work Phone: US OB BPP W NON-STRESS on 10-10-2024 [place] [address] Ultrasound Report Signed Patient: SABRINA RICHMOND MR#: [id number] : 1995 Acct:[id number] Age/Sex: 29 / F ADM Date: 10/10/24 Loc: [facility] 250-[address]: Zack Ortiz D.O. Ordering Physician: Zack Ortiz D.O. Date of Service: 10/10/24 Procedure(s): US OB BPP w non-stress Accession Number(s): [id number] cc: Zack Ortiz D.O.; Physician,Non-Staff James The [address] [id number] Patient Name: SABRINA RICHMOND MRN: [facility]:[id number] date: 1995 Sex: F Assigned Patient Location: [facility] Current Patient Location: [facility] Accession/Order Number: [id number] Exam Date: 10/10/2024 14:02 Report Date: 10/10/2024 14:29 At the request of: ZACK ORTIZ DO Procedure: US OB BPP w non-stress Biophysical profile. Reason for exam: Gestational diabetes COMPARISON: 10/03/2024 TECHNIQUE: Transabdominal imaging of the gravid uterus was obtained. FINDINGS: The water maintenance supervisor reports a BPP of 8 out of 8. SCOOTER is normal at 11.7 cm. heart rate 134 bpm. US/US OB BPP w non-stress IMPRESSION: BPP 8 out of 8. Impression dictated by: Kahlil Voss Jr., D.O. 10/10/2024 2:29 PM Dictation Location: [place] [address] Electronically authenticated by: [id number] Y Date: 10/10/2024 14:29 Dictated By: Kahlil Voss M.D. Signed By: 10/10/24 1432 DD/ 1429 TD/TT: Industrial Maintenance Mechanic: [facility] Radiology, Radiologist, - 10/10/2024 [facility] [place] [id number] Ultrasound Report Signed Patient: SABRINA RICHMOND MR#: [id number] : 1995 Acct:[id number] Age/Sex: 29 / F ADM Date: 10/10/24 Loc: [facility] 250-[address]: Zack Ortiz D.O. Ordering Physician: Zack Ortiz D.O. Date of Service: 10/10/24 Procedure(s): US OB BPP w non-stress Accession Number(s): [id number] cc: Zack Ortiz D.O.; Physician,Non-Staff [place] [id number] Patient Name: SABRINA RICHMOND MRN: [facility]:[id number] date: 1995 Sex: F Assigned Patient Location: [facility] Current Patient Location: [facility] Accession/Order Number: [id number] Exam Date: 10/10/2024 14:02 Report Date: 10/10/2024 14:29 At the request of: ZACK ORTIZ DO Procedure: US OB BPP w non-stress Biophysical profile. Reason for exam: Gestational diabetes COMPARISON: 10/03/2024 TECHNIQUE: Transabdominal imaging of the gravid uterus was obtained. FINDINGS: The water maintenance supervisor reports a BPP of 8 out of 8. SCOOTER is normal at 11.7 cm. heart rate 134 bpm. US/US OB BPP w non-stress IMPRESSION: BPP 8 out of 8. Impression dictated by: Kahlil Voss Jr., D.O. 10/10/2024 2:29 PM Dictation Location: [place] [address] Electronically authenticated by: [id number] Y Date: 10/10/2024 14:29 Dictated By: Kahlil Voss M.D. Signed By: 10/10/24 1432 DD/ 142 TD/TT: Industrial Maintenance Mechanic: [facility] Radiology Study observation (narrative) [facility] US OB BPP W NON-STRESS Ordered By: Radiologist Radiology on 10-10-2024 [facility] Work Phone: Urinalysis macro (dipstick) panel (U)on 10-08-2024 Bilirubin, UA Negative Negative - 4(70) +++ mg/dL [facility] Blood, UA Negative Negative - 50 Yossi/mcL [facility] Clarity, UA Clear [facility] Color, UA Yellow [facility] Glucose, UA Negative Negative - 2000(110) ++++ mg/dL [facility] Interpretation and review of laboratory results Abnormal [facility] Ketones, UA Negative Negative - 160(16) ++++ mg/dL [facility] Leukocytes, UA Negative Negative - 500+++ Wild/mcL [facility] Nitrite, UA Negative Negative - Positive [facility] pH, UA 6 5 - 9 [facility] Protein, UA Negative Negative - 1999(20) ++++ mg/dL [facility] Spec Grav, UA 1.03 1 - 1.03 [facility] Urobilinogen, UA 1.0 0.2 - 12 mg/dL [facility] ALL BUNon 10-04-2024 Urea nitrogen [Mass/Vol] 6 mg/dL Low 7.0 - 18.0 mg/dL [facility] ALL URIC ACIDon 10-04-2024 Urate [Mass/Vol] 5.4 mg/dL 2.6 - 6.0 mg/dL [facility] CC Jolynn 10-04-2024 ALT [Catalytic activity/Vol] 14 U/L 14 - 59 U/L [facility] 10-04-2024 AST [Catalytic activity/Vol] 14 U/L Low 15 - 37 U/L [facility] No Panel Informationon 10-04 Interpretation and review of laboratory results Abnormal [facility] CREATININEon 10-04-2024 Creatinine [Mass/Vol] 0.75 mg/dL 0.55 - 1.02 mg/dL [facility] GFR/1.73 sq M.predicted CKD-EPI (S/P/Bld) [Vol rate/Area] >60 >=60 mL/min/1.73m 2 [facility] EGFR-NON AF NICARAGUAN >60 >=60 mL/min/1.73m 2 [facility] ALL URIC ACIDon 10-03-2024 Urate [Mass/Vol] 5.3 mg/dL 2.6 - 6.0 mg/dL [facility] Basic Metabolic Panelon 09-15 Creatinine [Mass/Vol] 0.8 mg/dL 0.5 - 1.1 mg/dL [facility] CBC and differentialon 10-03 Neutrophils (Bld) [#/Vol] 11.9 10*3/uL Abnormal 1.30 - 8.30 10*3/uL [facility] WBC (Bld) [#/Vol] 15.2 10*3/mL Abnormal 3.3 - 10.0 10*3/mL [facility] 10-03-2024 ALT [Catalytic activity/Vol] 14 U/L 14 - 59 U/L [facility] 10-03-2024 Interpretation and review of laboratory results Abnormal [facility] Laboratory - Chemistry and C hemistry - challengeon 10-03-2024 AST [Catalytic activity/Vol] 13 U/L 13 - 35 U/L [facility] Urea nitrogen [Mass/Vol] 10 mg/dL 4 - 21 mg/dL [facility] No Panel Informationon 10-03 [facility] Interpretation and review of laboratory results Abnormal [facility] CREATININEon 10-03-2024 Creatinine [Mass/Vol] 0.84 mg/dL 0.55 - 1.02 mg/dL [facility] GFR/1.73 sq M.predicted CKD-EPI (S/P/Bld) [Vol rate/Area] >60 >=60 mL/min/1.73m 2 [facility] EGFR-NON AF NICARAGUAN >60 >=60 mL/min/1.73m 2 [facility] US OB BPP W NON-STRESS on 10-03-2024 [place] [address] Ultrasound Report Signed Patient: SABRINA RICHMOND MR#: [id number] : 1995 Acct:[id number] Age/Sex: 29 / F ADM Date: Loc: [facility] 251-[address]: Zack Ortiz D.O. Ordering Physician: Zack Ortiz D.O. Date of Service: 10/03/24 Procedure(s): US OB BPP w non-stress Accession Number(s): [id number] cc: Zack Ortiz D.O.; Physician,Non-Staff MJanak The [address] [address] Patient Name: SABRINA RICHMOND MRN: [id number] date: 1995 Sex: F Assigned Patient Location: [facility] Current Patient Location: [facility] Accession/Order Number: [id number] Exam Date: 10/03/2024 17:45 Report Date: 10/03/2024 [...] Tan M.D. 10/03/2024 5:46 PM Dictation Location: [place] [address] Electronically authenticated by: [id number] Y Date: 10/03/2024 17:46 Dictated By: Robi Tan D.O. Signed By: 10/03/241747 DD/ 45 TD/TT: Industrial Maintenance Mechanic: [facility] Radiology, Radiologist, - 10/03/2024 [place] [address] Ultrasound Report Signed Patient: SABRINA RICHMOND MR#: [id number] : 1995 Acct:[id number] Age/Sex: 29 / F ADM Date: Loc: [facility] 251- Attending Dr: Zack Ortiz D.O. Ordering Physician: Zack Ortiz D.O. Date of Service: 10/03/24 Procedure(s): US OB BPP w non-stress Accession Number(s): [id number] cc: Zack Ortiz D.O.; Physician,Non-Staff [facility] [place] [address] Patient Name: SABRINA RICHMOND MRN: [facility]:[id number] date: 1995 Sex: F Assigned Patient Location: [facility] Current Patient Location: [facility] Accession/Order Number: [id number] Exam Date: 10/03/2024 17:45 Report Date: 10/03/2024 [...] Tan M.D. 10/03/2024 5:46 PM Dictation Location: [facility] Electronically authenticated by: [id number] Y Date: 10/03/2024 17:46 Dictated By: Robi Tan D.O. Signed By: 10/03/241747 DD/ 45 TD/TT: Industrial Maintenance Mechanic: [facility] Radiology Study observation (narrative) [facility] US OB BPP W NON-STRESS Ordered By: Radiologist Radiology on 10-03-2024 [facility] Work Phone: US OB FOLLOW UP TRANSABDOMIN [...] PHD at 04-Oct-2024 08:06:58 AM [facility] Normal Not Available Comment on above: Order Comment: US OB SCAN FOR GROWTH Estimated Date of Delivery: 12/06/24 Gestational Age as of 09/17/2024: 28w4d Urinalysis macro (dipstick) panel (U)on 10-03-2024 Bilirubin, UA Negative Negative - 4(70) +++ mg/dL [facility] Blood, UA Negative Negative - 50 Yossi/mcL [facility] Clarity, UA Clear [facility] Color, UA Yellow [facility] Glucose, UA Negative Negative - 1999(110) ++++ mg/dL [facility] Ketones, UA Negative Negative - 160(16) ++++ mg/dL [facility] Leukocytes, UA Positive Negative - 500+++ Wild/mcL [facility] Comment on above: 2+ Nitrite, UA Negative Negative - Positive [facility] pH, UA 6 5 - 9 [facility] Protein, UA Negative Negative - 1999(20) ++++ mg/dL [facility] Spec Grav, UA 1.01 1 - 1.03 [facility] Urobilinogen, UA 0.2 0.2 - 12 mg/dL [facility] US OB LIMITED 1+ FETUSESon 0 08-29-2024 [...] GDLNon AGE GDLN ACOG TESTING Note . [facility] Comment on above: TESTS RESULT FLAG UN ITS REF RANGE LAB Clinician Provided Cytology Information Source.............Cervix No. of containers..01 ThinPrep Vial Age Ryan BARRAZA Haydee... 29 FLAG LEGEND: L-Low Normal,H-High Normal,LL-Alert Low,HH-Alert High <-Panic Low,>-Panic High,A-Abnormal,AA-Critical Abnormal Performed at: 01 =[address] [address] Glory Schaffer MD, HPV APTIMA Negative Negative [facility] Comment on above: This nucleic acid am plification test detects fourteen high- risk HPV types (16,18,31,33,35,39,45,51,52,56,58,59,66,68) without differentiation. Performed at: =[address] [id number] Forest Scientist: Glory Schaffer MD, Phone: [phone] Performed at: [address] [id number] Forest Scientist: Glory Schaffer MD, Phone: [phone] IGP, APTIMA HPV, RFX 16/18,45 Note . [facility] Comment on above: TESTS RESULT FLAG UN ITS REF RANGE LAB DIAGNOSIS: 02 NEGATIVE FOR INTRAEPITHELIAL LESION OR MALIGNANCY. Specimen adequacy: 02 Satisfactory for evaluation. No endocervical component is identified. Performed by: 02 Tai Darling, Dance Teacher ([facility]) . 02 Note: Note 02 The Pap [...] Low,>-Panic High,A-Abnormal,AA-Critical Abnormal Performed at: [address] [address] Glory Schaffer MD, BRUSH-SPATULA CERVIX [facility] RECURRENT VAGINITIS (HTRX)on 08-21-2024 ATOPOBIUM VAGINAE 0 [facility] ATOPOBIUM VAGINAE Not detected [facility] BVAB 2,3 (BACTERIAL VAGINOSIS ASSOCIATED BACTERIA 2, 3); MOBILUNCUS SPP 0 [facility] BVAB 2,3 (BACTERIAL VAGINOSIS ASSOCIATED BACTERIA 2, 3); MOBILUNCUS SPP Not detected [facility] FORREST ALBICANS, PARAPSILOSIS, TROPICALIS 0 [facility] FORREST ALBICANS, PARAPSILOSIS, TROPICALIS Not detected [facility] FORREST GLABRATA 0 [facility] FORREST GLABRATA Not detected [facility] FORREST KRUSEI 0 [facility] FORREST KRUSEI Not detected [facility] CHLAMYDIA TRACHOMATIS 0 [facility] CHLAMYDIA TRACHOMATIS Not detected N [facility] GARDNERELLA VAGINALIS 0 [facility] GARDNERELLA VAGINALIS Not detected N [facility] MEGASPHAERA (TYPES 1, 2) 0 [facility] MEGASPHAERA (TYPES 1, 2) [facility] MYCOPLAS[facility] GENITALIUM 0 [facility] MYCOPLASMA GENITALIUM Not detected N [facility] NEISSERIA GONORRHOEAE 0 [facility] NEISSERIA GONORRHOEAE Not detected N [facility] TRICHOMONAS VAGINALIS 0 [facility] TRICHOMONAS VAGINALIS Not detected N [facility] Urinalysis macro (dipstick) panel (U)on 08-20-2024 Bilirubin, UA Negative Negative - 4(70) +++ mg/dL [facility] Blood, UA Negative Negative - 50 Yossi/mcL [facility] Healthcare Clarity, UA Clear [facility] Color, UA Yellow [facility] Glucose, UA Negative Negative - 1999(110) ++++ mg/dL [facility] Interpretation and review of laboratory results Normal [facility] Ketones, UA Negative Negative - 160(16) ++++ mg/dL [facility] Leukocytes, UA Negative Negative - 500+++ Wild/mcL [facility] Nitrite, UA Negative Negative - Positive [facility] pH, UA 7 5 - 9 [facility] Protein, UA Negative Negative - 1999(20) ++++ mg/dL [facility] Spec Grav, UA 1.015 1 - 1.03 [facility] Urobilinogen, UA 0.2 0.2 - 12 mg/dL [facility] Urinalysis macro (dipstick) panel (U)on 07-24-2024 Bilirubin, UA Negative Negative - 4(70) +++ mg/dL [facility] Blood, UA Negative Negative - 50 Yossi/mcL [facility] Clarity, UA Clear [facility] Color, UA Yellow [facility] Glucose, UA Negative Negative - 1999(110) ++++ mg/dL [facility] Interpretation and review of laboratory results Normal [facility] Ketones, UA Negative Negative - 160(16) ++++ mg/dL [facility] Leukocytes, UA Negative Negative - 500+++ Wild/mcL [facility] Nitrite, UA Negative Negative - Positive [facility] pH, UA 6.5 5 - 9 [facility] Protein, UA Negative Negative - 1999(20) ++++ mg/dL [facility] Spec Grav, UA 1.025 1 - 1.03 [facility] Urobilinogen, UA 0.2 0.2 - 12 mg/dL [facility] OB 14+ WEEKS ANATOMY SCAN on 07-23-2024 [...] II, MD, PHD at 25-Jul-2024 08:22:22 AM [facility] Normal Not Available Comment on above: Order Comment: US OB ANATOMY SINGLE W US OB CERVICAL LENGTH Estimated Date of Delivery: 12/06/24 Gestational Age as of 06/18/2024: 15w4d Urinalysis macro (dipstick) panel (U)on 06-18-2024 Bilirubin, UA Negative Negative - 4(70) +++ mg/dL [facility] Blood, UA Negative Negative - 50 Yossi/mcL [facility] Clarity, UA Clear [facility] Color, UA Yellow [facility] Glucose, UA Negative Negative - 1999(110) ++++ mg/dL [facility] Interpretation and review of laboratory results Normal [facility] Ketones, UA Negative Negative - 160(16) ++++ mg/dL [facility] Leukocytes, UA Trace Negative - 500+++ Wild/mcL [facility] Nitrite, UA Negative Negative - Positive [facility] pH, UA 7 5 - 9 [facility] Protein, UA Negative Negative - 2000(20) ++++ mg/dL [facility] Spec Grav, UA 1.01 1 - 1.03 [facility] Urobilinogen, UA 0.2 0.2 - 12 mg/dL [facility] DRUG SCREEN RAPID (URINE )on 05-28-2024 AMPHETAMINE SCREEN URINE Negative NEGATIVE [facility] BARBITURATES SCREEN URINE Negative NEGATIVE [facility] BENZODIAZEPINES SCREEN URINE Negative NEGATIVE [facility] BUPRENORPHINE SCREEN URINE Negative NEGATIVE [facility] Comment on above: DRUG CLASS TEST SYST [...] 300 ng/mL CANNABINOID SCREEN URINE Negative NEGATIVE [facility] COCAINE SCREEN URINE Negative NEGATIVE [facility] METHADONE SCREEN URINE Negative NEGATIVE [facility] METHAMPHETAMINES SCREEN URINE Negative NEGATIVE [facility] OPIATE SCREEN URINE Negative NEGATIVE [facility] OXYCODONE SCREEN URINE Negative NEGATIVE NO [facility] PHENCYCLIDINE SCREEN URINE Negative NEGATIVE [facility] TRICYCLIC ANTIDEPRESSANT URINE Negative NEGATIVE [facility] BOX TESTon 05-24-2024 BOX TEST SENT OUT OTONIEL [facility] BOX1 OTONIEL [facility] BOX2 05/24/24 [facility] HCG ( test) Ql (U)o n 05-22-2024 Interpretation and review of laboratory results Abnormal [facility] Preg Test, Ur Positive Negative [facility] US Pelvis transvaginalon EXAM: US OB TRANSVAGINAL [...] II, MD, PHD at 20-May-2024 10:38:05 PM [facility]AG[facility] Una Webber MD - 05/20/2024 [...] II, MD, PHD at 20-May-2024 10:38:05 PM [facility] [employer] US Pelvis transvaginalOrdere d By: Una Webber on 05-20-2024 [facility] Work Phone: US OB TRANSVAGINALon 025 US [...] the left ovary was not visualized. Electronically Signed:Alekall y signed by UNA WEBBER II, MD, PHD at 20-May-2024 10:38:05 PM [facility] Normal Not Available Comment on above: Order Comment: US OB TRANSVAGINAL No LMP recorded. US Pelvis transvaginalon Radiology Study observation (narrative) [facility] Ambulatory Visit Summaryon 0 04-27-2024 Ambulatory Visit [...] day asthma Refills: 2 Pickup at [id number] New predniSONE (predniSONE 10 mg Tab) See instructions asthma take 2 tabs by mouth for 3 days, then take 1 tab by mouth for 3 days, then stop Pickup at [id number] Unchanged albuterol (Albuterol (Eqv-ProAir HFA) 90 mcg/ inh inhalation aerosol) Inhalation Every 6 hours Unchanged albuterol (Ventolin HFA 90 mcg/ inh Aerosol-Adpt) 1 Puffs Inhalation Every 6 hours as needed for for wheezing Unchanged meclizine (meclizine 25 mg Tab) 1 Tablets By Mouth 3 times a day as needed for for dizziness Unchanged Non-Formulary Medication ( Vitamins) Pharmacy Information [facility] #[id number]: [address] [place], [place] [phone] Allergies No Known Allergies Problems Ongoing - [...] choosing us for your care. Normal Ellis [facility] Family Medicine Office/Clini c Noteon 04-27-2024 [...] # 9 tab(s), Refills(s) 1, Pharmacy: [id number], 165, cm, 07/06/23 8:52:00 EDT, [...] virus vac (more content not included)... Normal [facility] Comment on above: Result Comment: Elec tronically Signed By: JOAQUÍN RODRIGUEZ\.br\Date and Time Signed: 04/27/24 10:37 EDT ED Clinical Summaryon 2024 ED Clinical Summary ED Clinical Summary [place] [address] ED Clinical Summary Person Information Name: SABRINA RICHMOND Brenda/[facility] Age: 28 Years : 1995 Sex: Female Language: Palauan PCP: JOAQUÍN RODRIGUEZ Marital Status: Phone: [phone] Visit Id: Visit Reason: Weakness or fatigue; [...] 04/18/2024 14:10:02 04/18/2024 14:10:02 04/18/2024 14:10:02 ADDRESS: [address] [place] [id number] PHYS DOC NOTES: MEDICAL INFORMATION: Prescriptions Given: New Medications [id number], [address] [place], [place] [id number], [phone] amoxicillin (amoxicillin 500 mg Cap) 2 Capsules [...] PATIENT EDUCATION INFORMATION: Instructions: Community-Acquired Pneumonia, Adult, Zsdn-vd-Qyrd Follow up: With: Address: When: REY ALAS [address] [place] [address] Business (1) In 3 days 04/21/2024 Comments: Call Dr for diagnosis based follow up DIAGNOSIS: Pneumonia Normal [facility] ED Note-Physicianon 04-19-19 ED Note-Physician ED [...] and Complexity of Problems Differential Diagnosis: [] [facility] Data External documents reviewed: [] My [...] moving forward. Mark Fitzpatrick PA-C had a llgd-zo-qkol interaction with the patient. I personally performed [...] # 28 cap(s), Refills(s) 0, Pharmacy: [id number], 165, cm, 04/18/24 11:46:00 EST, Height/Length Dosing, 124.5, kg, 04/18/24 11:46:00 EST, Weight Dosing Influenza A&B Ag Rapid COVID Antigen ([facility]) Disposition Plan Patient Discharge Condition stable Discharge Disposition to home Discharge Prescription List Prescriptions amoxicillin 500 mg Cap, 1000 mg= 2 cap(s), Oral, q12hr Ventolin HFA 90 mcg/inh Aerosol-Adpt, 1 puff(s), Inhalation, q6hr, PRN Follow-up With When Contact Information REY ALAS In 3 days 04/21/2024 EST [address] [facility] [address] [place] [address]- Business (1) Additional Instructions: Call Dr for diagnosis based follow up Patient Education Community-Acquired Pneumonia, Adult, Deer-hr-Ccgm Attestation Patient seen and evaluated by the physician drilling assistant. Attending physician was present in the emergency department and supervised care. This visit was performed by both the physician and an APC. I performed all aspects of the MDM as documented. This report was transcribed using voice recognition software. Every effo (more content not included)... Normal [facility] Comment on above: Result Comment: Elec tronically Signed By: Sandro Ramirez, Alva George\.br\Date and Time Signed: 04/18/24 18:02 EST\.br\Electronically Co-Signed By: Mark Jackman PA-C\.br\Date and Time Co-Signed: 04/18/24 16:19 EST ED Patient Summaryon 025 ED Patient Summary ED Patient Summary [place] [id number] Patient Discharge Instructions Person Information Name: SABRINA RICHMOND Age: 28 Years Arrival Date: 04/18/2024 11:36:25 Discharge Diagnosis: Pneumonia Primary Care Physician: JOAQUÍN RODRIGUEZ Provider Information Primary Provider: Alva Jo M.D. Advanced Messenger Office:Mark Jackman PA-C The exam and treatment you received in the Emergency Department were for an urgent problem and are not intended as complete care. It is important that you follow up with a doctor, nurse practitioner, or physician???s drilling assistant for ongoing care. If your symptoms [...] REY ALAS [address] [place] [address] Business (1) In 3 days 04/21/2024 Comments: Call Dr for diagnosis based follow up In the event that this physician does not participate in your insurance network, please consult with your insurance company to find a nearby participating provider. Patient Education Materials: Community-Acquired Pneumonia, Adult, Glsb-rr-Sfmk A MESSAGE TO ALL PATIENTS REGARDING OPIOIDS PRESCRIPTION OPIOIDS: WHAT YOU NEED TO KNOW Prescription opioids can be used to help relieve udmlhevs-su-syakzv pain and are often prescribed following a [...] If you (more content not included)... Normal [facility] Influenza A&B Agon Influenzae A Ag Negative Normal Negative [facility] Comment on above: Performed By: #### 1 [id number] #### [facility] [address] [place] [address] Influenzae B Ag Negative Normal Negative [facility] Comment on above: Result Comment: Test sensitivity and specificity vary for age group, specimen type, antigen types, and prevalence of disease. Test results must be evaluated in conjunction with other clinical data available to the physician. Individuals who received nasally administered Influenza A vaccine may have positive test results up to 3 days after vaccination. Performed By: #### 1 [id number] #### [facility] [address] [place] [address] MICRO OTHER TESTSOrdered By: Mary Sears on 04-18-2024 Influenzae A Ag Negative (04/18/24 12:06 PM) Normal Negative [facility] Man Sero Influenzae B Ag Negative 1 (04/18/24 12:06 PM) Normal Negative [facility] Man Sero Comment on above: Interpretive Data: [...] NEG Ctl Pass (04/18/24 12:06 PM) Normal [facility] Man Sero Rapid COV Int POS Ctl Pass (04/18/24 12:06 PM) Normal [facility] Man Sero SARS-CoV+SARS-CoV-2 (COVID-19) Ag IA.rapid Ql (Resp) Not Detected 2 (04/18/24 12:06 PM) Normal Not Detected [facility] Man Sero Comment on above: Interpretive Data: Gini mccarty BD Veritor System for Rapid Detection of SARS-CoV-2 [...] terminated or revoked sooner. Rapid COVID Antigen ([facility])on 04-18-2024 Rapid COV Int NEG Ctl Pass Normal Fis her [facility] Comment on above: Performed By: #### 2 [id number] #### [facility] [address] [place] [address] Rapid COV Int POS Ctl Pass Normal Fis her [facility] Comment on above: Performed By: #### 2 [id number] #### [facility] [address] [place] [address] SARS-CoV+SARS-CoV-2 (COVID-19) Ag IA.rapid Ql (Resp) Not detected Normal Not Detected [facility] Comment on above: Result Comment: The [employer] Veritor??? System for Rapid Detection of SARS-CoV-2 [...] or revoked sooner. Performed By: #### 2 [id number] #### [facility] [address] [place] [address] MRI Brain w/ + w/o Contrasto n [...] Vueway Contrast amount in ml's: 10 Normal [facility] Ambulatory Visit Summaryon 0 10-10-2023 Ambulatory [...] 2:00 PM EDT With: JOAQUÍN RODRIGUEZ Where: [facility] [address] [place] [address]- You Need to Complete the Following MRI Brain w/ + w/o Contrast, 10/10/23, Routine, Order for Future Visit, Transport Mode: Ambulatory, Reason: Headache, No, No, Intractable migraine with aura Complicated migraine, pp_set_radiology_sub specialty, [facility] Someone Will Contact You Regarding These Appointments [facility] External Ambulatory Referral, Dermatology, [facility] derm, [place], 10/10/23 10:54:00 EDT, [facility] Medications What How [...] choosing us for your care. Normal [facility] Family Medicine Office/Clini c Noteon 10-10-2023 [...] Melanocytic nevi, unspecified) Referral to derm. Ordered: [facility] External Ambulatory Referral 2. Migraine (G43.909: Migraine, [...] # 30 tab(s), Refills(s) 3, Pharmacy: [id number], 165.1, cm, 07/08/23 12:52:00 EDT, [...] Allergies No K (more content not included)... [facility] Comment on above: Result Comment: Elec tronically Signed By: JOAQUÍN RODRIGUEZ\.br\Date and Time Signed: 10/10/23 11:33 EDT Consent for Treatmenton 06-15 Consent for Treatment [id number] #1.00TIFF [facility] Discharge Instructionson Discharge Instructions [id number] 5#1.00TIFF [facility] ED Clinical Summaryon 2023 ED Clinical Summary [address] [address] ED Clinical Summary Person Information Name: SABRINA RICHMOND/[place] Age: 28 Years : 1995 Sex: Female Language: Palauan PCP: JOAQUÍN RODRIGUEZ Marital Status: Phone: [phone] Visit Id: Visit Reason: Fever; Sinus Pain/Congestion; [...] 07/08/2023 14:32:37 07/08/2023 14:32:37 07/08/2023 14:32:37 ADDRESS: [facility] [id number] PHYS DOC NOTES: MEDICAL INFORMATION: Prescriptions Given: New Medications [id number], [address] [place], [place] [id number], [phone] loratadine-pseudoeph edrine (loratadine-pseudoep hedrine 5 mg-120 mg [...] REY ALAS [address] [place] [address] Business (1) In 3 days 07/11/2023 DIAGNOSIS: Sinus headache; Vertigo Normal [facility] ED Note-Physicianon 07-08-19 ED Note-Physician Basic [...] for 10 day(s), 20 tab(s), Refill(s) 0, [id number], 165.1, cm, 07/08/23 12:52:00 EDT, Height/Length Dosing, 127, kg, 07/08/23 12:52:00 EDT, Weight Dosing meclizine, 25 mg = 1 tab(s), Oral, TID, PRN for dizziness, # 15 tab(s), Refills(s) 0, Pharmacy: [id number], 165.1, cm, 07/08/23 12:52:00 EDT, [...] ALAS In 3 days 07/11/2023 EDT [address] [facility] [address] [place] [address]- Business (1) Additional Instructions: Patient Education Vertigo [...] made to ensure accuracy, however, inadvertently computerized hose sprayer mistakes may be present. Appropriate healthcare PPE [...] year, 11/07/2019 (more content not included)... Normal [facility] Comment on above: Result Comment: Elec [...] cool or dry air. Medicines ? Take lwhi-cjm-egmzbcu and prescription medicines only as told by [...] provider. Document Revised: 01/03/2022 Document Reviewed: 01/03/2022 [employer] Patient Education ? 2022 [employer]. Neurology Vertigo Vertigo is the feeling that [...] for stabil (more content not included)... Normal [facility] ED Patient Summaryon 024 ED Patient Summary [address] [address] Patient Discharge Instructions Person Information Name: SABRINA RICHMOND Age: 28 Years Arrival Date: 07/08/2023 12:47:49 Discharge Diagnosis: Sinus headache; Vertigo Primary Care Physician: JOAQUÍN RODRIGUEZ Provider Information Primary Provider: Jagdish Dunn DO Advanced Messenger Office:Jarrell King PA-C The exam and treatment you received in the Emergency Department were for an urgent problem and are not intended as complete care. It is important that you follow up with a doctor, nurse practitioner, or physician?s drilling assistant for ongoing care. If your symptoms [...] REY ALAS [address] [place] [address] Business (1) In 3 days 07/11/2023 In the event that this physician does not participate in your insurance network, please consult with your insurance company to find a nearby participating provider. Patient Education Materials: Vertigo; Sinus Pain A MESSAGE TO ALL PATIENTS REGARDING OPIOIDS PRESCRIPTION OPIOIDS: WHAT YOU NEED TO KNOW Prescription opioids can be used to help relieve motgoyqy-dy-ihqrqx pain and are often prescribed following a [...] with addiction, tell your health hearing care practitioner and ask for guidance or call [facility]?S National Helpline at 2-456-062-USSZ. i (more content not included)... Normal [facility] Prescriptions/Work Noteson 0 07-08-2023 Prescriptions/Work Notes [id number] 7#1.00TIFF Normal [facility] XR Chest Single Viewon 07-07 XR [...] in mGy = na DAP = na [facility] Ambulatory Visit Summaryon 0 07-06-2023 Ambulatory Visit Summary BASILIODEQUANDoris Sánchez :1995 Visit Date:07/06/2023 Ambulatory Visit Instructions Your [...] 8:40 AM EDT With: JOAQUÍN RODRIGUEZ Where: [facility] Medicine [place] Normal [facility] Medicine Office/Clini c Noteon 07-06-2023 Family Medicine [...] hours, # 9 tab(s), Refills(s) 1, Pharmacy: [facility]/pharmacy #[id number], 165, cm, 07/06/23 8:52:00 EDT, Height/Length Dosing, 125.8, kg, 05/2... 4. Non-smoker (Z78.9: Other specified health status) stable Ordered: sumatriptan, 25 mg = 1 tab(s), Oral, Daily, PRN for migraine headache, may repeat dose after 2 hours up to a maximum of 200 mg in 24 hours, # 9 tab(s), Refills(s) 1, Pharmacy: [facility]/pharmacy #[id number], 165, cm, 07/06/23 8:52:00 EDT, Height/Length Dosing, 125.8, kg, 05/2... Follow-up With When Contact Information JOAQUÍN RODRIGUEZ [...] influenza vir (more content not included)... Normal [facility] Comment on above: Result Comment: Elec [...] these instructions at home: Medicines ? Take zgvy-ede-keqqmbd and prescription medicines only as told by [...] and dr (more content not included)... Normal [facility] CHEMISTRYOrdered By: SYSTEM SYSTEM on 01-11-2023 [...] 70 mL/min/1.73 m2 Normal >=59mL/min/1 .73 m2 [facility] Chem S Comment on above: Interpretive Data: C hronic kidney disease could be indicated at eGFR's of less than 60 mL/min/1.73m2. Kidney failure is indicated at less than 15 mL/min/1.73m2. Glucose [Mass/Vol] 93 mg/dL Normal 55 - 199 mg/dL [facility] Remisol Comment on above: Interpretive Data: I [...] Qn mIU/mL Normal 1 - 3 mIU/mL FT C Remisol Comment on above: Interpretive Data: G ESTATIONAL AGE HCG RANGE (mIU/mL) NON- <1-3 0.2-1 WEEKS 5-50 1-2 WEEKS 50-500 2-3 WEEKS 100-5,000 3-4 WEEKS 500-10,000 4-5 WEEKS 1,000-50,000 5-6 WEEKS 10,000-100,000 6-8 WEEKS 15,000-200,000 8-12 WEEKS 10,000-100,000 MICRO OTHER TESTSOrdered By: Brenna Brady on 01-06-2023 Influenzae A Ag Negative (01/06/23 3:06 PM) Normal Negative [facility] Man Sero Influenzae B Ag Negative 1 (01/06/23 3:06 PM) Normal Negative [facility] Sero Comment on above: Interpretive Data: T [...] NEG Ctl Pass (01/06/23 3:06 PM) Normal [facility] Sero Rapid COV Int POS Ctl Pass (01/06/23 3:06 PM) Normal [facility] Sero SARS-CoV+SARS-CoV-2 (COVID-19) Ag IA.rapid Ql (Resp) Not Detected 2 (01/06/23 3:06 PM) Normal Not Detected [facility] Sero Comment on above: Interpretive Data: T he [employer] Veritor System for Rapid Detection of SARS-CoV-2 [...] - 4.0 gm/dL FT Remisol Glucose [Mass/Vol] 96 mg/dL Normal 55 [...] 11.8 E9/L High 4.0 - 11.0 E9/L FT HemeAutoSS SEROLOGYOrdered By: Sonal Amezcua on 10-17-2022 Beta hCG Ql Negative (10/17/22 1:38 PM) Normal [facility] Man Sero URINALYSISOrdered By: Charla Amezcua on [...] PM) Normal Negative [facility] UA Auto SS [place].plasma/[place]. RBC (Bld) [Mass ratio] 0-3 /HPF Normal [...] [facility] UA Auto SS Urobilinogen Qn (U) 0.7598074 {Juma'U}/dL Normal 0.0 - 1.0 EU/dL FT [...] rate/Area] mL/min/1.73 m2 Normal >=59mL/min/1 .73 m2 [facility] Chem S Globulin (S) [Mass/Vol] 3.9 g/dL [...] Ql (Bld) Present (02/17/22 4:25 PM) Normal [facility] HemeManSS Erythrocyte distribution width (RBC) [Ratio] 15.5 [...] Present (02/17/22 4:25 PM) Normal FT HemeManSS Morphology Parminder (Bld) [Interp] See Morphology (02/17/22 4:25 PM) Normal FT HemeManSS Ovalocytes LM Ql (Bld) Present (02/17/22 [...] hCG Ql Negative (02/17/22 4:25 PM) Normal [facility] Man Sero URINALYSISOrdered By: Pancho Quick on [...] PM) Normal Negative [facility] UA Auto SS [place].plasma/[place]. RBC (Bld) [Mass ratio] 0-3 /HPF Normal 0-3/HPF [facility] UA A uto SS Nitrite Ql (U) [...] Desc Clean Catch (02/17/22 7:01 PM) Normal FT UA Auto SS Urobilinogen Qn (U) 0.2013468 {Juma'U}/dL Normal 0.0 - 1.0 EU/dL [facility] [...] PM) Normal Negative [facility] UA Auto SS [place].plasma/[place]. RBC (Bld) [Mass ratio] 0-3 /HPF Normal [...] [facility] UA Auto SS Urobilinogen Qn (U) 0.3034853 {Juma'U}/dL Normal 0.0 - 1.0 EU/dL [facility] UA Auto SS WBC Auto Ql (U) 3+ *ABN* (11/10/21 12:40 PM) Invalid Interpretation Code Negative [facility] UA Auto SS WBC LM.HPF (Urine sed) [#/Area] 16-25 /HPF Invalid Interpretation Code 0-5/HPF [facility] UA Auto SS Basophils Auto (Bld) [#/Vol] Ordered By: PRESLEY TIMMONS on 09-13-2021 Basophils (Bld) [#/Vol] 0.0 10*3/uL 0.0-0.2 [facility] Basophils/100 WBC Auto (Bld) Ordered By: PRESLEY TIMMONS on 09-13-2021 Basophils/100 WBC (Bld) 0.3 % . [facility] Blood hemoglobin measurement (mass/volume)Ordered By: PRESLEY TIMMONS on 09-13-2021 Hemoglobin (Bld) [Mass/Vol] 11.7 g/dL 11.8-15.4 [facility] Blood leukocytes automated c ount (number/volume)Ordered By: PRESLEY TIMMONS on 09-13-2021 WBC (Bld) [#/Vol] 13.1 10*3/uL 4.5-11.0 [facility] Complete Blood Count Auto Di ffon 09-13-2021 Basophils (Bld) [#/Vol] 0.0 10*3/uL Normal 0.0-0.2 [facility] Comment on above: Order Comment: Comme nt Draw at 630 am Result Comment: PERF ORMED BY: [place] [address] PATHOLOGIST PHOTOGRAPHER SANDY PEREZ M.D. Performed By: #### C BC #### [facility] [address] [place] [address] Basophils/100 WBC (Bld) 0.3 % Normal . [facility] Comment on above: Order Comment: Comme nt Draw at 630 am Performed By: #### C BC #### [facility] [address] [place] [address] Eosinophils (Bld) [#/Vol] 0.1 10*3/uL Normal 0.0-0.45 [facility] Comment on above: Order Comment: Comme nt Draw at 630 am Performed By: #### C BC #### [address] Eosinophils/100 WBC (Bld) 0.8 % Normal . [facility] Comment on above: Order Comment: Comme nt Draw at 630 am Performed By: #### C BC #### [address] Erythrocyte distribution width (RBC) [Ratio] 15.3 % Normal 11.9-15.3 [facility] Comment on above: Order Comment: Comme nt Draw at 630 am Performed By: #### C BC #### [address] Hematocrit (Bld) [Volume fraction] 35.2 % Normal 34.0-46.4 [facility] Comment on above: Order Comment: Comme nt Draw at 630 am Performed By: #### C BC #### [address] Hemoglobin (Bld) [Mass/Vol] 11.7 g/dL Low 11.8-15.4 [facility] Comment on above: Order Comment: Comme nt Draw at 630 am Performed By: #### C BC #### [place] [address] [place] Lymphocytes (Bld) [#/Vol] 2.4 10*3/uL Normal 1.00-4.8 [facility] Comment on above: Order Comment: Comme nt Draw at 630 am Performed By: #### C BC #### [place] [address] [place] Lymphocytes/100 WBC (Bld) 18.5 % Normal . [facility] Comment on above: Order Comment: Comme nt Draw at 630 am Performed By: #### C BC #### [address] MCH (RBC) [Entitic mass] 27.9 pg Normal 24.7-34.3 [facility] Comment on above: Order Comment: Comme nt Draw at 630 am Performed By: #### C BC #### [facility] [address] MCV (RBC) [Entitic vol] 83.6 fL Normal 80-100 [facility] Comment on above: Order Comment: Comme nt Draw at 630 am Performed By: #### C BC #### [facility] [address] Mean Corpuscular HGB Conc 33.3 g/dL Normal 32.0-35.0 [facility] Comment on above: Order Comment: Comme nt Draw at 630 am Performed By: #### C BC #### [address] Monocytes (Bld) [#/Vol] 0.9 10*3/uL High 0.0-0.8 [facility] Comment on above: Order Comment: Comme nt Draw at 630 am Performed By: #### C BC #### [facility] [address] [place] [address] [place] Monocytes/100 WBC (Bld) 6.5 % Normal . [facility] Comment on above: Order Comment: Comme nt Draw at 630 am Performed By: #### C BC #### [place] [address] [place] Neutrophils (Bld) [#/Vol] 9.7 10*3/uL High 1.8-7.7 [facility] Comment on above: Order Comment: Comme nt Draw at 630 am Performed By: #### C BC #### [facility] [address] [place] [id number] [place] Neutrophils/100 WBC (Bld) 73.9 % Normal . [facility] Comment on above: Order Comment: Comme nt Draw at 630 am Performed By: #### C BC #### [facility] [address] [place] [address] [place] Nucleated RBC/100 WBC (Bld) [Ratio] 0.1 % Normal 0-0.5 [facility] Comment on above: Order Comment: Comme nt Draw at 630 am Performed By: #### C BC #### [facility] [address] [place] [address] Platelet mean volume (Bld) [Entitic vol] 7.2 fL Normal 6.3-10.7 [facility] Comment on above: Order Comment: Comme nt Draw at 630 am Performed By: #### C BC #### [address] Platelets (Bld) [#/Vol] 237 10*3/uL Normal 150-450 [facility] Comment on above: Order Comment: Comme nt Draw at 630 am Performed By: #### C BC #### [address] RBC (Bld) [#/Vol] 4.21 10*6/uL Normal 3.60-5.00 [facility] Comment on above: Order Comment: Comme nt Draw at 630 am Performed By: #### C BC #### [address] WBC (Bld) [#/Vol] 13.1 10*3/uL High 4.5-11.0 [facility] Comment on above: Order Comment: Comme nt Draw at 630 am Performed By: #### C BC #### [address] Eosinophils Auto (Bld) [#/Vo l]Ordered By: PRESLEY TIMMONS on 09-13-2021 Eosinophils (Bld) [#/Vol] 0.1 10*3/uL 0.0-0.45 [facility] Eosinophils/100 WBC Auto (Bl d)Ordered By: PRESLEY TIMMONS on 09-13-2021 Eosinophils/100 WBC (Bld) 0.8 % . [facility] Erythrocyte distribution wid th Auto (RBC) [Ratio]Ordered By: PRESLEY TIMMONS on 09-13-2021 Erythrocyte distribution width (RBC) [Ratio] 15.3 % 11.9-15.3 [facility] Hematocrit Auto (Bld) [Volum e fraction]Ordered By: PRESLEY TIMMONS on 09-13-2021 Hematocrit (Bld) [Volume fraction] 35.2 % 34.0-46.4 [facility] Laboratory - Hematology and Cell countsOrdered By: PRESLEY TIMMONS on 09-13-2021 Nucleated RBC/100 WBC (Bld) [Ratio] 0.1 % 0-0.5 [facility] Lymphocytes Auto (Bld) [#/Vo l]Ordered By: PRESLEY TIMMONS on 09-13-2021 Lymphocytes (Bld) [#/Vol] 2.4 10*3/uL 1.00-4.8 [facility] Lymphocytes/100 WBC Auto (Bl d)Ordered By: PRESLEY TIMMONS on 09-13-2021 Lymphocytes/100 WBC (Bld) 18.5 % . [facility] MCH Auto (RBC) [Entitic mass ]Ordered By: PRESLEY TIMMONS on 09-13-2021 MCH (RBC) [Entitic mass] 27.9 pg 24.7-34.3 [facility] MCHC Auto (RBC) [Mass/Vol]Or dered By: PRESLEY TIMMONS on 09-13-2021 MCHC (RBC) [Mass/Vol] 33.3 g/dL 32.0-35.0 [facility] MCV Auto (RBC) [Entitic vol] Ordered By: PRESLEY TIMMONS on 09-13-2021 MCV (RBC) [Entitic vol] 83.6 fL 80-100 [facility] Monocytes Auto (Bld) [#/Vol] Ordered By: PRESLEY TIMMONS on 09-13-2021 Monocytes (Bld) [#/Vol] 0.9 10*3/uL 0.0-0.8 [facility] Monocytes/100 WBC Auto (Bld) Ordered By: PRESLEY TIMMONS on 09-13-2021 Monocytes/100 WBC (Bld) 6.5 % . [facility] Neutrophils Auto (Bld) [#/Vo l]Ordered By: PRESLEY TIMMONS on 09-13-2021 Neutrophils (Bld) [#/Vol] 9.7 10*3/uL 1.8-7.7 [facility] Neutrophils/100 WBC Auto (Bl d)Ordered By: PRESLEY TIMMONS on 09-13-2021 Neutrophils/100 WBC (Bld) 73.9 % . [facility] Platelet mean volume Auto (B ld) [Entitic vol]Ordered By: PRESLEY TIMMONS on 09-13-2021 Platelet mean volume (Bld) [Entitic vol] 7.2 fL 6.3-10.7 [facility] Platelets Auto (Bld) [#/Vol] Ordered By: PRESLEY TIMMONS on 09-13-2021 Platelets (Bld) [#/Vol] 237 10*3/uL 150-450 [facility] RBC Auto (Bld) [#/Vol]Ordere d By: PRESLEY TIMMONS on 09-13-2021 RBC (Bld) [#/Vol] 4.21 10*6/uL 3.60-5.00 [facility] Albumin [Mass/volume] in Ser um or PlasmaOrdered By: PRESLEY TIMMONS on 09-12-2021 Albumin [Mass/Vol] 2.3 g/dL 3.2-5.5 [facility] Comprehensive Metabolic Pane brian 09-12-2021 Albumin [Mass/Vol] 2.3 g/dL Low 3.2-5.5 [facility] Comment on above: Performed By: #### C MP #### [address] Albumin/Globulin [Mass ratio] 0.6 {ratio} Normal [facility] Comment on above: Performed By: #### C MP #### [facility] [address] [place] [address] [place] ALP [Catalytic activity/Vol] 183 U/L High 32-92 [facility] Comment on above: Performed By: #### C MP #### [facility] [address] [place] [address] [place] ALT [Catalytic activity/Vol] 15 U/L Normal 10-60 [facility] Comment on above: Performed By: #### C MP #### [facility] [address] [place] [id number] [place] AST [Catalytic activity/Vol] 15 U/L Normal 10-42 [facility] Comment on above: Performed By: #### C MP #### [facility] [address] Bilirubin [Mass/Vol] 0.7 mg/dL Normal 0.3-1.2 [facility] Comment on above: Performed By: #### C MP #### [facility] [address] Calcium [Mass/Vol] 8.7 mg/dL Normal 8.2-10.2 [facility] Comment on above: Performed By: #### C MP #### [facility] [address] Chloride [Moles/Vol] 102 mmol/L Normal 95-114 [facility] Comment on above: Performed By: #### C MP #### [address] CO2 [Moles/Vol] 22.9 mmol/L Normal 22.0-30.[address] [facility] Comment on above: Performed By: #### C MP #### [address] Creatinine [Mass/Vol] 0.69 mg/dL Normal 0.44-1.03 [facility] Comment on above: Performed By: #### C MP #### [address] Creatinine Clr Calc Pharmacy 152.06 [facility] Comment on above: Result Comment: PERF ORMED BY: [place] [address] PATHOLOGIST PHOTOGRAPHER SANDY PEREZ M.D. Performed By: #### C MP #### [address] Estimated GFR ( Brenda > 60 Normal [facility] Comment on above: Result Comment: GFR estimated reference range: According to KDOQI guidelines, <60 ml/min/1.73m2 is sufficient to diagnose a patient with chronic kidney disease. Performed By: #### C MP #### [address] Estimated GFR (Non- Am > 60 Normal [facility] Comment on above: Performed By: #### C MP #### [facility] [address] Globulin (S) [Mass/Vol] 3.7 g/dL Normal [facility] Comment on above: Performed By: #### C MP #### [facility] [address] Glucose [Mass/Vol] 97 mg/dL Normal 70-100 [facility] Comment on above: Result Comment: [facility] Glucose Reference Range is dependent on time and content of last meal. Glucose of more than 200 mg/dL in a nonstressed, ambulatory subject supports the diagnosis of Diabetes Mellitus. ADA recommended reference range Performed By: #### C MP #### [facility] [address] Potassium [Moles/Vol] 3.6 mmol/L Normal 3.5-5.1 [facility] Comment on above: Performed By: #### C MP #### [facility] [address] Protein [Mass/Vol] 6.0 g/dL Low 6.1-7.9 [facility] Comment on above: Performed By: #### C MP #### [facility] [address] Sodium [Moles/Vol] 136 mmol/L Normal 136-146 [facility] Comment on above: Performed By: #### C MP #### [address] Urea nitrogen [Mass/Vol] 6 mg/dL Low 9-23 [facility] Comment on above: Performed By: #### C MP #### [place] [address] [place] Creatinine and Glomerular fi ltration rate.predicted panel (S/P/Bld)Ordered By: PRESLEY TIMMONS on 09-12-2021 Creatinine [Mass/Vol] 0.69 mg/dL 0.44-1.03 [facility] Estimated glomerular filtrat ion rate (GFR) non- AmericanOrdered By: PRESLEY TIMMONS on 09-12-2021 GFR/1.73 sq M.predicted among non-blacks MDRD (S/P/Bld) [Vol rate/Area] > 60 mL/Min [facility] Globulin Calc (S) [Mass/Vol] Ordered By: PRESLEY TIMMONS on 09-12-2021 Globulin (S) [Mass/Vol] 3.7 g/dL [facility] No Panel InformationOrdered By: PRESLEY TIMMONS on 09-12-2021 Estimated GFR () > 60 mL/Min [facility] Comment on above: GFR estimated refere nce range: According to KDOQI guidelines, <60 ml/min/1.73m2 is sufficient to diagnose a patient with chronic kidney disease. Pharmacy Creatinine Clearance (Chem 152.06 [facility] Protein [Mass/volume] in Ser um or PlasmaOrdered By: PRESLEY TIMMONS on 09-12-2021 Protein [Mass/Vol] 6.0 g/dL 6.1-7.9 [facility] Serum or plasma alanine hutton otransferase measurement without P-5'-P (enzymatic activiOrdered By: PRESLEY TIMMONS on 09-12-2021 ALT No additional P-5'-P [Catalytic activity/Vol] 15 U/L 10-60 [facility] Serum or plasma albumin/glob ulin mass ratioOrdered By: PRESLEY TIMMONS on 09-12-2021 Albumin/Globulin [Mass ratio] 0.6 {ratio} [facility] Serum or plasma alkaline lamont sphatase measurement (enzymatic activity/volume)Ordered By: PRESLEY TIMMONS on 09-12-2021 ALP [Catalytic activity/Vol] 183 U/L 32-92 [facility] Serum or plasma aspartate am inotransferase measurement (enzymatic activity/volume)Ordered By: PRESLEY TIMMONS on 09-12-2021 AST [Catalytic activity/Vol] 15 U/L 10-42 [facility] Serum or plasma calcium carlie urement (mass/volume)Ordered By: PRESLEY TIMMONS on 09-12-2021 Calcium [Mass/Vol] 8.7 mg/dL 8.2-10.2 [facility] Serum or plasma chloride irwin surement (moles/volume)Ordered By: PRESLEY TIMMONS on 09-12-2021 Chloride [Moles/Vol] 102 mmol/L 95-114 [facility] Serum or plasma glucose carlie urement (mass/volume)Ordered By: PRESLEY TIMMONS on 09-12-2021 Glucose [Mass/Vol] 97 mg/dL 70-100 [facility] Comment on above: ADA recommended refe rence range Random Glucose Reference Range is dependent on time and content of last meal. Glucose of more than 200 mg/dL in a nonstressed, ambulatory subject supports the diagnosis of Diabetes Mellitus. Serum or plasma potassium me asurement (moles/volume)Ordered By: PRESLEY TIMMONS on 09-12-2021 Potassium [Moles/Vol] 3.6 mmol/L 3.5-5.1 [facility] Serum or plasma sodium measu rement (moles/volume)Ordered By: PRESLEY TIMMONS on 09-12-2021 Sodium [Moles/Vol] 136 mmol/L 136-146 [facility] Serum or plasma total biliru bin measurement (mass/volume)Ordered By: PRESLEY TIMMONS on 09-12-2021 Bilirubin [Mass/Vol] 0.7 mg/dL 0.3-1.2 [facility] Serum or plasma total carbon dioxide measurement (moles/volume)Ordered By: PRESLEY TIMMONS on 09-12-2021 CO2 [Moles/Vol] 22.9 mmol/L 22.0-30.[address] [facility] Serum or plasma urea nitroge n measurement (mass/volume)Ordered By: PRESLEY TIMMONS on 09-12-2021 Urea nitrogen [Mass/Vol] 6 mg/dL 9-23 [facility] Amphetamine Screen Ql (U)Ord ered By: PRESLEY TIMMONS on 09-11-2021 Amphetamines Ql (U) Negative Negative [facility] Barbiturates [Presence] in U rineOrdered By: PRESLEY TIMMONS on 09-11-2021 Barbiturates Ql (U) Negative Negative [facility] Benzodiazepines [Presence] i n UrineOrdered By: PRESLEY TIMMONS on 09-11-2021 Benzodiazepines Ql (U) Negative Negative [facility] Bilirubin Auto test strip Ql (U)Ordered By: PRESLEY TIMMONS on 09-11-2021 Bilirubin Ql (U) Negative Negative [facility] COVID-19 Antigenon 2 COVID-19 Antigen Healthcare [...] developed and its performance characteristic determined by [employer] and validated at [facility]. This test has not been FDA cleared [...] for SARS Antigen by IVET PERFORMED BY: [address] [address] PATHOLOGIST PHOTOGRAPHER SANDY PEREZ M.D. [facility] Comment on above: Performed By: #### C OVID-19 KAREN BUCHANANEG #### [address] [place] [address] [place] COVID-19 SOFIAOrdered By: MANJU TIMMONS on 09-11-2021 SARS-CoV+SARS-CoV-2 (COVID-19) Ag IA.rapid Ql (Resp) Negative Negative [facility] Comment on above: This is a duplicate Chanel SARS Antigen (IVET) result to be used for statistical tracking purpose only. Chlamydia trachomatis DNA [P resence] in Specimen by EMMA with probe detectionOrdered By: PRESLEY TIMMONS on 09-11-2021 C. trachomatis DNA EMMA+probe Ql (Unsp spec) Negative Negative [facility] Chlamydia/GC/Trich NAAon Chlamydia Trachomotis, EMMA Negative Normal Negative [facility] Comment on above: Performed By: #### G CCHLAMTRI #### [facility] , Neisseria Gonorrhoeae, EMMA Negative Normal Negative [facility] Comment on above: Performed By: #### G CCHLAMTRI #### [facility] , Trichomonas EMMA Negative Normal Negative [facility] Comment on above: Result Comment: Perf ormed at: =G - [facility] [address] [id number] Forest Scientist: Glory Schaffer MD, Phone: [phone] PERFORMED BY: [place] [address] PATHOLOGIST PHOTOGRAPHER SANDY PEREZ M.D. Performed By: #### G CCHLAMTRI #### [facility] , Complete Blood Count Auto Di ffon 09-11-2021 Basophils (Bld) [#/Vol] 0.1 10*3/uL Normal 0.0-0.2 [facility] Comment on above: Result Comment: PERF ORMED BY: [place] [address] PATHOLOGIST PHOTOGRAPHER SANDY PEREZ M.D. Performed By: #### R OH W RFX #### [facility] , #### CBC #### [facility] [address] [place] [address] Basophils/100 WBC (Bld) 1.1 % Normal . [facility] Comment on above: Performed By: #### R OH W RFX #### [facility] , #### CBC #### [address] Eosinophils (Bld) [#/Vol] 0.2 10*3/uL Normal 0.0-0.45 [facility] Comment on above: Performed By: #### R OH W RFX #### [facility] , #### CBC #### [facility] [address] [place] [address] Eosinophils/100 WBC (Bld) 1.7 % Normal . [facility] Comment on above: Performed By: #### R OH W RFX #### [facility] , #### CBC #### [address] Erythrocyte distribution width (RBC) [Ratio] 14.7 % Normal 11.9-15.3 [facility] Comment on above: Performed By: #### R OH W RFX #### [facility] , #### CBC #### [address] Hematocrit (Bld) [Volume fraction] 37.4 % Normal 34.0-46.4 [facility] Comment on above: Performed By: #### R OH W RFX #### [facility] , #### CBC #### [facility] [address] [place] [address] Hemoglobin (Bld) [Mass/Vol] 12.4 g/dL Normal 11.8-15.4 [facility] Comment on above: Performed By: #### R OH W RFX #### [facility] , #### CBC #### [facility] [address] [place] [address] [place] Lymphocytes (Bld) [#/Vol] 2.4 10*3/uL Normal 1.00-4.8 [facility] Comment on above: Performed By: #### R OH W RFX #### [facility] , #### CBC #### [facility] [address] [place] [address] Lymphocytes/100 WBC (Bld) 19.6 % Normal . [facility] Comment on above: Performed By: #### R OH W RFX #### [facility] , #### CBC #### [facility] [address] [place] [address] MCH (RBC) [Entitic mass] 28.1 pg Normal 24.7-34.3 [facility] Comment on above: Performed By: #### R OH W RFX #### [facility] , #### CBC #### [address] MCV (RBC) [Entitic vol] 84.4 fL Normal 80-100 [facility] Comment on above: Performed By: #### R OH W RFX #### [facility] , #### CBC #### [facility] [address] [place] [address] Mean Corpuscular HGB Conc 33.2 g/dL Normal 32.0-35.0 [facility] Comment on above: Performed By: #### R OH W RFX #### [facility] , #### CBC #### [facility] [address] [place] [address] [place] Monocytes (Bld) [#/Vol] 0.8 10*3/uL Normal 0.0-0.8 [facility] Comment on above: Performed By: #### R OH W RFX #### [facility] , #### CBC #### [facility] [address] [place] [address] [place] Monocytes/100 WBC (Bld) 6.6 % Normal . [facility] Comment on above: Performed By: #### R OH W RFX #### [facility] , #### CBC #### [facility] [address] [place] [address] Neutrophils (Bld) [#/Vol] 8.8 10*3/uL High 1.8-7.7 [facility] Comment on above: Performed By: #### R OH W RFX #### [facility] , #### CBC #### [facility] [address] [place] [address] Neutrophils/100 WBC (Bld) 71.0 % Normal . [facility] Comment on above: Performed By: #### R OH W RFX #### [facility] , #### CBC #### [facility] [address] [place] [address] Nucleated RBC/100 WBC (Bld) [Ratio] 0.1 % Normal 0-0.5 [facility] Comment on above: Performed By: #### R OH W RFX #### [facility] , #### CBC #### [facility] [address] [place] [address] Platelet mean volume (Bld) [Entitic vol] 7.4 fL Normal 6.3-10.7 [facility] Comment on above: Performed By: #### R OH W RFX #### [facility] , #### CBC #### [facility] [address] [place] [address] [place] Platelets (Bld) [#/Vol] 256 10*3/uL Normal 150-450 [facility] Comment on above: Performed By: #### R OH W RFX #### [facility] , #### CBC #### [facility] [address] [place] [address] [place] RBC (Bld) [#/Vol] 4.43 10*6/uL Normal 3.60-5.00 [facility] Comment on above: Performed By: #### R OH W RFX #### [facility] , #### CBC #### [facility] [address] WBC (Bld) [#/Vol] 12.4 10*3/uL High 4.5-11.0 [facility] Comment on above: Performed By: #### R OH W RFX #### [facility] , #### CBC #### [facility] [address] Ketones Auto test strip (U) [Mass/Vol]Ordered By: PRESLEY TIMMONS on 09-11-2021 Ketones (U) [Mass/Vol] Negative Negative [facility] - Drug toxicology Ordered By: PRESLEY TIMMONS on 09-11-2021 Opiates Ql (U) Negative Negative [facility] Neisseria gonorrhoeae DNA [P resence] in Specimen by EMMA with probe detectionOrdered By: PRESLEY TIMMONS on 09-11-2021 N. gonorrhoeae DNA EMMA+probe Ql (Unsp spec) Negative Negative [facility] No Panel InformationOrdered By: PRESLEY TIMMONS on 09-11-2021 SARS Antigen (LFIA) [facility] OB Urine Drug Screen (NO THC )on 09-11-2021 Amphetamine Screen,Urine Negative Normal Negative [facility] Comment on above: Performed By: #### U A, OBUDS #### [facility] [address] [place] [address] Barbiturate Screen,Urine Negative Normal Negative [facility] Comment on above: Performed By: #### U A, OBUDS #### [facility] [address] [place] [address] [place] Benzodiazepines Screen,Urine Negative Normal Negative [facility] Comment on above: Performed By: #### U A, OBUDS #### [facility] [address] [place] [address] Cocaine Screen,Urine Negative Normal Negative [facility] Comment on above: Performed By: #### U A, OBUDS #### [address] Opiate Screen,Urine Negative Normal Negative [facility] Comment on above: Performed By: #### U A, OBUDS #### [facility] [address] Phencyclidine Screen, Urine Negative Normal Negative [facility] Comment on above: Result Comment: Thes e are unconfirmed results and should not be used for legal purposes. Drug Cut-Off Concentration: AMPH 1000 ng/mL DANTE 200 ng/mL DONTA 200 ng/mL COCM 300 ng/mL OP 300 ng/mL PCP 25 ng/mL PERFORMED BY: [place] [address] PATHOLOGIST PHOTOGRAPHER SANDY PEREZ M.D. Performed By: #### U A, OBUDS #### [address] Phencyclidine Screen Ql (U)O rdered By: PRESLEY TIMMONS on 09-11-2021 Phencyclidine Ql (U) Negative Negative [facility] Comment on above: These are unconfirme d results and should not be used for legal purposes. Drug Cut-Off Concentration: AMPH 1000 ng/mL DANTE 200 ng/mL DONTA 200 ng/mL COCM 300 ng/mL OP 300 ng/mL PCP 25 ng/mL Protein Auto test strip (U) [Mass/Vol]Ordered By: PRESLEY TIMMONS on 09-11-2021 Protein (U) [Mass/Vol] Negative Negative [facility] RPR w/rfx to Quant TP Abson 09-11-2021 RPR, Rfx Quant RPR Non-Reactive Normal Non Reactive [facility] Comment on above: Result Comment: Perf ormed at: - [facility] [address] [id number] Forest Scientist: Surya Hazel PhD, Phone: [phone] PERFORMED BY: [place] [id number] PATHOLOGIST PHOTOGRAPHER SANDY PEREZ M.D. Performed By: #### R OH W RFX #### [facility] , #### CBC #### [place] [address] [place] Reagin Ab [Presence] in Seru m by RPROrdered By: PRESLEY TIMMONS on 09-11-2021 Reagin Ab RPR Ql (S) Non-Reactive Non Reactive [facility] Comment on above: Performed at: - L [employer] [address] [id number] Forest Scientist: Suyra Hazel PhD, Phone: [phone] Chanel Ag Negativeon 09-12-19 Chanel Ag Negative Negative Normal Negative [facility] Comment on above: Result Comment: This is a duplicate Chanel SARS Antigen (IVET) result to be used for statistical tracking purpose only. PERFORMED BY: [place] [address] PATHOLOGIST PHOTOGRAPHER SANDY PEREZ M.D. Performed By: #### C OVID-19 CHANEL, SOFIANEG #### [address] Trichomonas vaginalis DNA [P resence] in Specimen by EMMA with probe detectionOrdered By: PRESLEY TIMMONS on 09-11-2021 T. vaginalis DNA EMMA+probe Ql (Unsp spec) Negative Negative [facility] Comment on above: Performed at: =G - [facility] [employer] [address] [id number] Forest Scientist: Glory Schaffer MD, Phone: [phone] Urinalysison 09-11-2021 Appearance (U) Clear Normal Clear [facility] Comment on above: Order Comment: Name Collection Type:: Voided Performed By: #### U A, OBUDS #### [address] Bilirubin,Urine Negative Normal Negative [facility] Comment on above: Order Comment: Name Collection Type:: Voided Performed By: #### U A, OBUDS #### [place] [address] [place] Color (U) Yellow Normal Yellow [facility] Comment on above: Order Comment: Name Collection Type:: Voided Performed By: #### U A, OBUDS #### [facility] [address] [place] [address] Glucose Ql (U) Normal Normal Normal [facility] Comment on above: Order Comment: Name Collection Type:: Voided Performed By: #### U A, OBUDS #### [facility] [facility] [address] [place] [address] Ketones Ql (U) Negative Normal Negative [facility] Comment on above: Order Comment: Name Collection Type:: Voided Performed By: #### U A, OBUDS #### [facility] [address] [place] [address] Leukocyte esterase Test strip Ql (U) Negative Normal Negative [facility] Comment on above: Order Comment: Name Collection Type:: Voided Performed By: #### U A, OBUDS #### [facility] [address] [place] [address] Nitrite,Urine Negative Normal Negative [facility] Comment on above: Order Comment: Name Collection Type:: Voided Performed By: #### U A, OBUDS #### [facility] [address] [place] [address] Occult Blood,Urine Negative Normal Negative [facility] Comment on above: Order Comment: Name Collection Type:: Voided Result Comment: PERF ORMED BY: [place] [address] PATHOLOGIST PHOTOGRAPHER SANDY PEREZ M.D. Performed By: #### U A, OBUDS #### [facility] [address] [place] [address] [place] pH (U) 6.0 [pH] Normal 5.0-9.0 [facility] Comment on above: Order Comment: Name Collection Type:: Voided Performed By: #### U A, OBUDS #### [facility] [address] [place] [address] [place] Protein,Urine Negative Normal Negative [facility] Comment on above: Order Comment: Name Collection Type:: Voided Performed By: #### U A, OBUDS #### [facility] [address] Specificy [place],Urine 1.015 Normal 1.001-1.030 [facility] Comment on above: Order Comment: Name Collection Type:: Voided Performed By: #### U A, OBUDS #### [facility] [address] Urobilinogen,Urine Normal Normal Normal [facility] Comment on above: Order Comment: Name Collection Type:: Voided Performed By: #### U A, OBUDS #### [facility] [address] Urine appearanceOrdered By: PRESLEY TIMMONS on 09-11-2021 Appearance (U) Clear Clear [facility] Urine cocaine detectionOrder ed By: PRESLEY TIMMONS on 09-11-2021 Cocaine Ql (U) Negative Negative [facility] Urine colorOrdered By: PRESLEY TIMMONS on 09-11-2021 Color (U) Yellow Yellow [facility] Urine glucose measurement by automated test strip (mass/volume)Ordered By: PRESLEY TIMMONS on 09-11-2021 Glucose Auto test strip (U) [Mass/Vol] Normal mg/dL Normal [facility] Urine hemoglobin detection b y automated test stripOrdered By: PRESLEY TIMMONS on 09-11-2021 Hemoglobin Auto test strip Ql (U) Negative Negative [facility] Urine leukocyte esterase det ection by automated test stripOrdered By: PRESLEY TIMMONS on 09-11-2021 Leukocyte esterase Auto test strip Ql (U) Negative Negative [facility] Urine nitrite detection by a utomated test stripOrdered By: PRESLEY TIMMONS on 09-11-2021 Nitrite Auto test strip Ql (U) Negative Negative [facility] Urobilinogen Auto test strip (U) [Mass/Vol]Ordered By: PRESLEY TIMMONS on 09-11-2021 Urobilinogen (U) [Mass/Vol] Normal mg/dL Normal [facility] pH Auto test strip (U)Ordere d By: PRESLEY TIMMONS on 09-11-2021 pH (U) 1.015 [pH] 1.001-1.030 [facility] pH (U) 6.0 [pH] 5.0-9.0 [facility] CHEMISTRYOrdered By: SYSTEM SYSTEM on 07-02-2021 Glucose 3 Hr post 75 g glucose PO [Mass/Vol] 59 mg/dL Normal 55 - 140 mg/dL [facility] Remisol Glucose 2 Hr post 75 g glucose PO [Mass/Vol] 100 mg/dL Normal 55 - 155 mg/dL [facility] Remisol Glucose 1 Hr post 75 g glucose PO [Mass/Vol] 169 mg/dL Normal 55 - 180 mg/dL [facility] Remisol Glucose post fast [Mass/Vol] 94 mg/dL Normal 55 - 99 mg/dL [facility] Remisol CHEMISTRYOrdered By: Lab ROP User on 07-02-2021 Glucose [Mass/Vol] 89 mg/dL Normal 55 - 99 mg/dL [facility] POC Subsection POC Device SN [id number] Invalid Interpretation Code [facility] POC Subsection POC User ID [id number] Invalid Interpretation Code [facility] POC Subsection POC Username MYNOR GARCIA Invalid Interpretation Code [facility] POC Subsection URINALYSISOrdered By: Binh Gilliam on 06-13-2021 Bacteria LM Ql (Urine sed) 2+ /HPF Invalid Interpretation Code Trace/HPF [facility] UA Auto SS Bilirubin Ql (U) Negative (06/13/21 10:00 AM) Normal Negative [facility] UA Auto SS Clarity (U) Clear (06/13/21 10:00 AM) Normal Clear [facility] UA Auto SS Color (U) Yellow (06/13/21 10:00 AM) Normal Yellow [facility] Auto SS Epithelial cells.squamous LM.HPF (Urine sed) [#/Area] 5-8 /HPF Normal 0-2/HPF [facility] Aut o SS Glucose Test strip (U) [Mass/Vol] Negative (06/13/21 10:00 AM) Normal Negative [facility] UA Auto SS Hemoglobin Ql (U) Negative (06/13/21 10:00 AM) Normal Negative [facility] UA Auto SS Ketones (U) [Mass/Vol] Negative (06/13/21 10:00 AM) Normal Negative [facility] UA Auto SS [place].plasma/[place]. RBC (Bld) [Mass ratio] 0-3 /HPF Normal 0-3/HPF [facility] A uto SS Mucus Ql (Urine sed) 3+ (06/13/21 10:00 AM) Normal [facility] Auto SS Nitrite Ql [...] [facility] UA Auto SS Urobilinogen Qn (U) [id number] {Juma'U}/dL Normal 0.0 - 1.0 EU/dL [facility] [...] rate/Area] mL/min/1.73 m2 Normal >=59mL/min/1 .73 m2 [facility] Chem S Globulin (S) [Mass/Vol] 3.8 g/dL [...] 10.4 E9/L Normal 4.0 - 11.0 E9/L [facility] HemeAutoSS CHEMISTRYOrdered By: SYSTEM SYSTEM on 05-30-2021 Glucose 1 Hr post 75 g glucose PO [Mass/Vol] 199 mg/dL High 55 - 180 mg/dL [facility] Remisol HEMATOLOGYOrdered By: Minna King on 05-30-2021 Hematocrit (Bld) [Volume fraction] 35.0 % Normal 34.0 - 46.0 % [facility] HemeAutoSS Hemoglobin (Bld) [Mass/Vol] 12.3 g/dL Normal 12.0 - 16.0 gm/dL [facility] HemeAutoSS CBC AUTO DIFFon 02-11-2021 BASO # 0.1 103/ul Normal 0.0-0.1 [facility] Comment on above: Performed By: #### C BC #### [facility] [address] [place] [address] Dr. Shola Randolph Basophils/100 WBC (Bld) 0.4 % Normal 0.2-2.0 [facility] Comment on above: Performed By: #### C BC #### [facility] [address] [place] [address] Dr. Shola Randolph EO # 0.5 103/ul Normal 0.0-0.7 [facility] Comment on above: Performed By: #### C BC #### [facility] [address] [place] [address] Dr. Shola Randolph Eosinophils/100 WBC (Bld) 3.9 % Normal 0.9-7.0 [facility] Comment on above: Performed By: #### C BC #### [facility] [address] [place] [address] Dr. Shola Randolph Erythrocyte distribution width (RBC) [Ratio] 13.3 % Normal 11.0-15.0 [facility] Comment on above: Performed By: #### C BC #### [facility] [address] [place] [address] Dr. Shola Randolph Hematocrit (Bld) [Volume fraction] 42.0 % Normal 36.0-48.0 [facility] Comment on above: Performed By: #### C BC #### [facility] [address] [address] [address] Shola Randolph Hemoglobin (Bld) [Mass/Vol] 13.9 g/dL Normal 12.0-16.0 [facility] Comment on above: Performed By: #### C BC #### [facility] [address] [address] [address] Shola Randolph IG # 0.04 10e3/ul Critically high 0.00-0.03 [facility] Comment on above: Performed By: #### C BC #### [facility] [address] [address] [address] Shola Randolph IG % 0.3 % Normal 0.0-0.5 [facility] Comment on above: Performed By: #### C BC #### [facility] [address] [place] [address] Dr. Shola Randolph LYMPH # 2.5 103/ul Normal 1.2-3.8 [facility] Comment on above: Performed By: #### C BC #### [facility] [address] [place] [address] Dr. Shola Randolph Lymphocytes/100 WBC (Bld) 20.2 % Critically low 20.5-60.0 [facility] Comment on above: Performed By: #### C BC #### [facility] [address] [place] [address] Dr. Shola Randolph MANUAL DIFF REQ NO Normal [facility] Comment on above: Performed By: #### C BC #### [facility] [address] [address] [address] Shola Randolph MCH (RBC) [Entitic mass] 28.7 pg Normal 26.7-34.0 [facility] Comment on above: Performed By: #### C BC #### [facility] [address] [place] [address] Dr. Shola Randolph MCHC (RBC) [Mass/Vol] 33.1 g/dL Normal 29.9-35.2 [facility] Comment on above: Performed By: #### C BC #### [facility] [address] [address] [address] Shola Randolph MCV (RBC) [Entitic vol] 86.6 fL Normal 81.0-99.0 [facility] Comment on above: Performed By: #### C BC #### [facility] [address] [address] [address] Shola Randolph MONO # 0.8 103/ul Normal 0.3-0.8 [facility] Comment on above: Performed By: #### C BC #### [facility] [address] [place] [address] Dr. Shola Randolph Monocytes/100 WBC (Bld) 6.5 % Normal 1.7-12.0 [facility] Comment on above: Performed By: #### C BC #### [facility] [address] [place] [address] Dr. Shola Randolph NEUT # 8.5 103/ul Critically high 1.4-6.5 [facility] Comment on above: Performed By: #### C BC #### [facility] [address] [place] [address] Dr. Shola Randolph Neutrophils/100 WBC (Bld) 68.7 % Normal 43.0-75.0 [facility] Comment on above: Performed By: #### C BC #### [facility] [address] [place] [address] Dr. Shola Randolph Platelet mean volume (Bld) [Entitic vol] 8.4 fL Critically low 9.5-13.5 [facility] Comment on above: Performed By: #### C BC #### [facility] [address] [place] [address] Dr. Shola Randolph PLT 246 103/ul Normal 150-450 [facility] Comment on above: Performed By: #### C BC #### [facility] [address] [place] [address] Dr. Shola Randolph RBC 4.85 106/ul Normal 4.20-5.40 [facility] Comment on above: Performed By: #### C BC #### [facility] [address] [place] [address] Dr. Shola Randolph WBC 12.4 103/ul Critically high 4.0-11.0 [facility] Comment on above: Performed By: #### C BC #### [facility] [address] [place] [address] Dr. Shola Randolph PROF 14(COMP METB)on 021 Albumin [Mass/Vol] 3.3 g/dL Critically low 3.5-5.0 [facility] Comment on above: Performed By: #### C MP #### [facility] [address] [place] [address] Dr. Shola Randolph Albumin/Globulin [Mass ratio] 0.8 {ratio} Normal [facility] Comment on above: Performed By: #### C MP #### [facility] [address] [place] [address] Dr. Shola Randolph ALP [Catalytic activity/Vol] 76 U/L Normal 38-126 [facility] Comment on above: Performed By: #### C MP #### [facility] [address] [place] [address] Dr. Shola Randolph ALT [Catalytic activity/Vol] 25 U/L Normal 9-52 [facility] Comment on above: Performed By: #### C MP #### [facility] [address] [place] [address] Dr. Shola Randolph Anion gap [Moles/Vol] 12.4 mmol/L Normal [facility] Comment on above: Performed By: #### C MP #### [facility] [address] [place] [address] Dr. Shola Randolph AST [Catalytic activity/Vol] 15 U/L Normal 14-36 [facility] Comment on above: Performed By: #### C MP #### [facility] [address] [place] [address] Dr. Shola Randolph Bilirubin [Mass/Vol] 0.3 mg/dL Normal 0.2-1.3 [facility] Comment on above: Performed By: #### C MP #### [facility] [address] [place] [address] Dr. Shola Randolph Calcium [Mass/Vol] 8.8 mg/dL Normal 8.4-10.2 [facility] Comment on above: Performed By: #### C MP #### [facility] [address] [address] [address] Shola Randolph Chloride [Moles/Vol] 102 mmol/L Normal 98-107 [facility] Comment on above: Performed By: #### C MP #### [facility] [address] [address] [address] Shola Randolph CO2 [Moles/Vol] 25.5 mmol/L Normal 22.0-30.0 [facility] Comment on above: Performed By: #### C MP #### [facility] [address] [place] [address] Dr. Shola Randolph Creatinine [Mass/Vol] 0.81 mg/dL Normal 0.52-1.04 [facility] Comment on above: Performed By: #### C MP #### [facility] [address] [place] [address] Dr. Shola Randolph EGFR-AF NICARAGUAN >60 Normal >=60 [facility] Comment on above: Performed By: #### C MP #### [facility] [address] [address] [address] Shola Randolph EGFR-NON AF NICARAGUAN >60 Normal >=60 [facility] Comment on above: Performed By: #### C MP #### [facility] [address] [address] [address] Shola Randolph Globulin (S) [Mass/Vol] 4.4 g/dL Normal [facility] Comment on above: Performed By: #### C MP #### [facility] [address] [address] [address] Shola Randolph Glucose [Mass/Vol] 88 mg/dL Normal 74-106 [facility] Comment on above: Performed By: #### C MP #### [facility] [address] [address] [address] Shola Randolph Potassium [Moles/Vol] 3.9 mmol/L Normal 3.4-5.0 [facility] Comment on above: Performed By: #### C MP #### [facility] [address] [address] [address] Shola Randolph Protein [Mass/Vol] 7.7 g/dL Normal 6.1-8.2 [facility] Comment on above: Performed By: #### C MP #### [facility] [address] [address] [address] Shola Randolph Sodium [Moles/Vol] 136 mmol/L Critically low 137-145 [facility] Comment on above: Performed By: #### C MP #### [facility] [address] [address] [address] Shola Randolph Urea nitrogen [Mass/Vol] 9.0 mg/dL Normal 7.0-17.0 [facility] Comment on above: Performed By: #### C MP #### [facility] [address] [address] [address] Shola Randolph Urea nitrogen/Creatinine [Mass ratio] 11.1 mg/mg Normal [facility] Comment on above: Performed By: #### C MP #### [facility] [address] [address] [address] Shola Randolph Vital Signs Date Time Vital Sign Value Performing Clinician Facility 10-08-2024 15:05-0400 Body mass index (BMI) [Ratio] 49.33 kg/m2 [employer] Work Phone: [facility] 10-08-2024 15:05-0400 Body weight 130.36 kg [employer] Work Phone: [facility] 10-08-2024 15:05-0400 Diastolic blood pressure 100 mm[Hg] [employer] Work Phone: [facility] 10-08-2024 15:05-0400 Systolic blood pressure 142 mm[Hg] [employer] Work Phone: [facility] 10-03-2024 14:26-0400 Body mass index (BMI) [Ratio] 50.98 kg/m2 [employer] Work Phone: [facility] 10-03-2024 14:26-0400 Body weight 134.72 kg Zack Angel DO Work Phone: [facility] 10-03-2024 14:26-0400 Diastolic blood pressure 100 mm[Hg] Zack Angel DO Work Phone: [facility] 10-03-2024 14:26-0400 Systolic blood pressure 154 mm[Hg] Zack Angel DO Work Phone: [facility] 09-17-2024 13:18-0400 Body mass index (BMI) [Ratio] 50.64 kg/m2 Gwen Anny PA Work Phone: [facility] 09-17-2024 13:18-0400 Body weight 133.81 kg Gwen Anny PA Work Phone: [facility] 09-17-2024 13:18-0400 Diastolic blood pressure 70 mm[Hg] Gwen Anny PA Work Phone: [facility] 09-17-2024 13:18-0400 Systolic blood pressure 118 mm[Hg] Gwen Anny PA Work Phone: [facility] 08-21-2024 09:16-0400 Body temperature 97.5 [degF] Yixue Virk DDS Work Phone: [facility] 08-21-2024 09:16-0400 Diastolic blood pressure 90 mm[Hg] Yixue Virk DDS Work Phone: [facility] 08-21-2024 09:16-0400 Heart rate 86 /min Yixue Virk DDS Work Phone: [facility] 08-21-2024 09:16-0400 Systolic blood pressure 134 mm[Hg] Yixue Virk DDS Work Phone: [facility] 08-20-2024 14:57-0400 Body mass index (BMI) [Ratio] 48.58 kg/m2 Zack Angel DO Work Phone: [facility] 08-20-2024 14:57-0400 Body weight 128.37 kg Zack Angel DO Work Phone: [facility] 08-20-2024 14:57-0400 Diastolic blood pressure 74 mm[Hg] Zack Angel DO Work Phone: [facility] 08-20-2024 14:57-0400 Systolic blood pressure 122 mm[Hg] Zack Angel DO Work Phone: [facility] 08-15-2024 12:56-0400 Body temperature 98.1 [degF] Yixue Virk DDS Work Phone: [facility] 08-15-2024 12:56-0400 Diastolic blood pressure 96 mm[Hg] Yixue Virk DDS Work Phone: [facility] 08-15-2024 12:56-0400 Heart rate 79 /min Yixue Virk DDS Work Phone: [facility] 08-15-2024 12:56-0400 Systolic blood pressure 138 mm[Hg] Yixue Virk DDS Work Phone: [facility] 07-23-2024 15:23-0400 Body mass index (BMI) [Ratio] 47.38 kg/m2 Gwen SAAVEDRA Work Phone: [facility] 07-23-2024 15:23-0400 Body weight 125.19 kg Gwen SAAVEDRA Work Phone: [facility] 07-23-2024 15:23-0400 Diastolic blood pressure 78 mm[Hg] Gwen SAAVEDRA Work Phone: [facility] 07-23-2024 15:23-0400 Systolic blood pressure 124 mm[Hg] Gwen SAAVEDRA Work Phone: [facility] 04-18-2024 14:08-0500 Diastolic blood pressure 96 mm[Hg] [facility] 14:08-0500 Heart rate 85 /min [facility] 04-18-2024 14:08-0500 Respiratory rate 20 /min [facility] 04-18-2024 14:08-0500 SaO2% (BldA) [Mass fraction] 99 % [facility] 04-18-2024 14:08-0500 Systolic blood pressure 136 mm[Hg] [facility] 04-18-2024 11:41-0500 Body temperature 98.06 [degF] [facility] 04-18-2024 11:41-0500 Diastolic blood pressure 94 mm[Hg] [facility] 04-18-2024 11:41-0500 Heart rate 106 /min [facility] 04-18-2024 11:41-0500 Respiratory rate 22 /min [facility] 04-18-2024 11:41-0500 SaO2% (BldA) [Mass fraction] 98 % [facility] 04-18-2024 11:41-0500 Systolic blood pressure 144 mm[Hg] [facility] 10-10-2023 10:13-0400 Blood Pressure Location REY ALAS [facility] 10-10-2023 10:13-0400 Body temperature 98.06 [degF] REY ALAS [facility] 10-10-2023 10:13-0400 Diastolic blood pressure 74 mm[Hg] REY ALAS [facility] 10-10-2023 10:13-0400 Heart rate 80 /min REY ALAS [facility] 10-10-2023 10:13-0400 Respiratory rate 15 /min REY ALAS [facility] 10-10-2023 10:13-0400 SaO2% (BldA) [Mass fraction] 98 % RE[facility] AL[facility] 10-10-2023 10:13-0400 Systolic blood pressure 122 mm[Hg] REY ALAS [facility] 07-08-2023 13:59-0400 Heart rate 107 /min Jagdish Shaun [facility] 07-08-2023 13:59-0400 Respiratory rate 14 /min Jagdish Shaun [facility] 07-08-2023 13:59-0400 SaO2% (BldA) [Mass fraction] 98 % Jagdish Shaun [facility] 07-08-2023 12:49-0400 Body temperature 97.7 [degF] Jagdish Shaun [facility] 07-08-2023 12:49-0400 Diastolic blood pressure 94 mm[Hg] Jagdish Shaun [facility] 07-08-2023 12:49-0400 Heart rate 120 /min Jagdish Shaun [facility] 07-08-2023 12:49-0400 Respiratory rate 15 /min Jagdish Shaun [facility] 07-08-2023 12:49-0400 SaO2% (BldA) [Mass fraction] 97 % Jagdish Shaun [facility] 07-08-2023 12:49-0400 Systolic blood pressure 134 mm[Hg] Jagdish Shaun [facility] 07-06-2023 08:45-0400 Blood Pressure Location REY HERRERAWSKI [facility] 07-06-2023 08:45-0400 Diastolic blood pressure 86 mm[Hg] REYSHERIDAN ALAS [facility] 07-06-2023 08:45-0400 Heart rate 78 /min REY BISHOP [facility] 07-06-2023 08:45-0400 SaO2% (BldA) [Mass fraction] 99 % REY BISHOP [facility] 07-06-2023 08:45-0400 Systolic blood pressure 126 mm[Hg] REY BISHOP [facility] 01-11-2023 19:48-0500 Diastolic blood pressure 96 mm[Hg] Jagdish Shaun [facility] 01-11-2023 19:48-0500 Heart rate 84 /min Jagdish Shaun [facility] 01-11-2023 19:48-0500 Mean blood pressure 108 mm[Hg] Jagdish Shaun [facility] 01-11-2023 19:48-0500 Respiratory rate 13 /min Jagdish Shaun [facility] 01-11-2023 19:48-0500 SaO2% (BldA) [Mass fraction] 97 % Jagdish Shaun [facility] 01-11-2023 19:48-0500 Systolic blood pressure 131 mm[Hg] Jagdish Shaun [facility] 01-11-2023 19:30-0500 Heart rate 85 /min Jagdish Shaun [facility] 01-11-2023 19:30-0500 Respiratory rate 17 /min Jagdish Shaun [facility] 01-11-2023 19:30-0500 SaO2% (BldA) [Mass fraction] 97 % Jagdish Shaun [facility] 01-11-2023 19:00-0500 Diastolic blood pressure 95 mm[Hg] Jagdish Shaun [facility] 01-11-2023 19:00-0500 Heart rate 87 /min Jagdish Shaun [facility] 01-11-2023 19:00-0500 Mean blood pressure 107 mm[Hg] Jagdish Shaun [facility] 01-11-2023 19:00-0500 Respiratory rate 11 /min Jagdish Shaun [facility] 01-11-2023 18:00-0500 Diastolic blood pressure 94 mm[Hg] Jagdish Shaun [facility] 01-11-2023 18:00-0500 Systolic blood pressure 135 mm[Hg] Jagdish Shaun [facility] 01-11-2023 16:10-0500 Body temperature 98.06 [degF] Jagdish Shaun [facility] 01-11-2023 16:10-0500 Heart rate 110 /min Jagdish Shaun [facility] 01-11-2023 16:10-0500 Respiratory rate 18 /min Jagdish Shaun [facility] 01-08-2023 14:21-0500 Body temperature 98.6 [degF] [facility] 01-08-2023 14:21-0500 Diastolic blood pressure 75 mm[Hg] [facility] 01-08-2023 14:21-0500 Heart rate 76 /min [facility] 01-08-2023 14:21-0500 Respiratory rate 18 /min [facility] 01-08-2023 14:21-0500 SaO2% (BldA) [Mass fraction] 97 % [facility] 01-08-2023 14:21-0500 Systolic blood pressure 116 mm[Hg] [facility] 01-08-2023 12:45-0500 Body temperature 98.24 [degF] [facility] 01-08-2023 12:45-0500 Diastolic blood pressure 79 mm[Hg] [facility] 01-08-2023 12:45-0500 Heart rate 110 /min [facility] 01-08-2023 12:45-0500 Respiratory rate 24 /min [facility] 01-08-2023 12:45-0500 SaO2% (BldA) [Mass fraction] 100 % [facility] 01-08-2023 12:45-0500 Systolic blood pressure 117 mm[Hg] [facility] 01-06-2023 16:45-0500 Diastolic blood pressure 87 mm[Hg] Jesus Ayers [facility] 01-06-2023 16:45-0500 Heart rate 98 /min Jesus Ayers [facility] 01-06-2023 16:45-0500 Mean blood pressure 97 mm[Hg] Jesus Ayers [facility] 01-06-2023 16:45-0500 Respiratory rate 20 /min Jesus Ayers [facility] 01-06-2023 16:45-0500 SaO2% (BldA) [Mass fraction] 97 % Jesus Ayers [facility] 01-06-2023 16:45-0500 Systolic blood pressure 118 mm[Hg] Jesus Armen [facility] 01-06-2023 16:15-0500 Diastolic blood pressure 85 mm[Hg] Jesus Armen [facility] 01-06-2023 16:15-0500 Heart rate 98 /min Jesus Armen [facility] 01-06-2023 16:15-0500 Mean blood pressure 99 mm[Hg] Jesus Armen [facility] 01-06-2023 16:15-0500 Respiratory rate 18 /min Jesus Armen [facility] 01-06-2023 16:15-0500 SaO2% (BldA) [Mass fraction] 96 % Jesus Armen [facility] 01-06-2023 16:15-0500 Systolic blood pressure 127 mm[Hg] Jesus Armen [facility] 01-06-2023 15:45-0500 Diastolic blood pressure 87 mm[Hg] Jesus Armen [facility] 01-06-2023 15:45-0500 Heart rate 98 /min Jesus Armen [facility] 01-06-2023 15:45-0500 Mean blood pressure 102 mm[Hg] Jesus Armen [facility] 01-06-2023 15:45-0500 Respiratory rate 18 /min Jesus Armen [facility] 01-06-2023 15:45-0500 SaO2% (BldA) [Mass fraction] 97 % Jesus Armen [facility] 01-06-2023 15:45-0500 Systolic blood pressure 131 mm[Hg] Jesus Armen [facility] 01-06-2023 15:15-0500 Heart rate 114 /min Jesus Ayers [facility] 01-06-2023 14:48-0500 Body temperature 102.02 [degF] Jesus Ayers [facility] 01-06-2023 14:48-0500 Heart rate 115 /min Jesus Ayers [facility] 10-17-2022 17:02-0400 Diastolic blood pressure 69 mm[Hg] Jagdish Shaun [facility] 10-17-2022 17:02-0400 Heart rate 66 /min Jagdishmiguel ángel Dunn [facility] 10-17-2022 17:02-0400 Mean blood pressure 79 mm[Hg] Jagdish Dunn [facility] 10-17-2022 17:02-0400 Respiratory rate 18 /min Jagdishmiguel ángel Dunn [facility] 10-17-2022 17:02-0400 SaO2% (BldA) [Mass fraction] 98 % Jagdish Dunn [facility] 10-17-2022 17:02-0400 Systolic blood pressure 100 mm[Hg] Jagdish Dunn [facility] 10-17-2022 16:43-0400 Hourly Rounding Jagdishmiguel ángel Dunn [facility] 10-17-2022 16:43-0400 Promise to Return Jagdish Dunn [facility] 10-17-2022 16:42-0400 Diastolic blood pressure 65 mm[Hg] Jagdish Dunn [facility] 10-17-2022 16:42-0400 Heart rate 62 /min Jagdish Shaun [facility] 10-17-2022 16:42-0400 Mean blood pressure 80 mm[Hg] Jagdish Shaun [facility] 10-17-2022 16:42-0400 Respiratory rate 18 /min Jagdish Shaun [facility] 10-17-2022 16:42-0400 SaO2% (BldA) [Mass fraction] 99 % Jagdish Shaun [facility] 10-17-2022 16:42-0400 Systolic blood pressure 111 mm[Hg] Jagdish Shaun [facility] 10-17-2022 15:43-0400 Diastolic blood pressure 69 mm[Hg] Jagdish Shaun [facility] 10-17-2022 15:43-0400 Heart rate 68 /min Jagdish Shaun [facility] 10-17-2022 15:43-0400 Hourly Rounding Jagdish Shaun [facility] 10-17-2022 15:43-0400 Mean blood pressure 83 mm[Hg] Jagdish Shaun [facility] 10-17-2022 15:43-0400 Promise to Return Jagdishmiguel ángel Dunn [facility] 10-17-2022 15:43-0400 Respiratory rate 18 /min Jagdish Shaun [facility] 10-17-2022 15:43-0400 SaO2% (BldA) [Mass fraction] 100 % Jagdish Shaun [facility] 10-17-2022 15:43-0400 Systolic blood pressure 111 mm[Hg] Jagdish Shaun [facility] 10-17-2022 14:49-0400 Hourly Rounding Jagdish Shaun [facility] 10-17-2022 14:49-0400 Promise to Return Jagdish Dunn [facility] 10-17-2022 13:04-0400 Body temperature 98.06 [degF] Jagdish Dunn [facility] 10-17-2022 13:04-0400 Heart rate 93 /min Jagdish Shaun [facility] 02-17-2022 21:00-0500 Diastolic blood pressure 91 mm[Hg] Jagdish Shaun [facility] 02-17-2022 21:00-0500 Heart rate 86 /min Jagdish Shaun [facility] 02-17-2022 21:00-0500 Mean blood pressure 106 mm[Hg] Jagdish Dunn [facility] 02-17-2022 21:00-0500 Respiratory rate 20 /min Jagdish Shaun [facility] 02-17-2022 21:00-0500 SaO2% (BldA) [Mass fraction] 98 % Jagdish Dunn [facility] 02-17-2022 21:00-0500 Systolic blood pressure 136 mm[Hg] Jagdish Shaun [facility] 02-17-2022 20:00-0500 Diastolic blood pressure 81 mm[Hg] Jagdish Shaun [facility] 02-17-2022 20:00-0500 Heart rate 91 /min Jagdish Shaun [facility] 02-17-2022 20:00-0500 Mean blood pressure 96 mm[Hg] Jagdish Shaun [facility] 02-17-2022 20:00-0500 Respiratory rate 16 /min Jagdish Dunn [facility] 02-17-2022 20:00-0500 Systolic blood pressure 125 mm[Hg] Jagdish Dunn [facility] 02-17-2022 19:44-0500 Diastolic blood pressure 98 mm[Hg] Jagdish Dunn [facility] 02-17-2022 19:44-0500 Heart rate 99 /min Jagdish Dunn [facility] 02-17-2022 19:44-0500 Mean blood pressure 112 mm[Hg] Jagdish Dunn [facility] 02-17-2022 19:44-0500 Respiratory rate 19 /min Jagdish Dunn [facility] 02-17-2022 19:44-0500 SaO2% (BldA) [Mass fraction] 97 % Jagdish Dunn [facility] 02-17-2022 19:44-0500 Systolic blood pressure 140 mm[Hg] Jagdish Dunn [facility] 02-17-2022 16:14-0500 Body temperature 98.96 [degF] Jagdish Dunn [facility] 02-17-2022 16:14-0500 Heart rate 112 /min Jagdish Dunn [facility] 11-10-2021 12:13-0400 Body temperature 97.88 [degF] Jesus Armen [facility] 11-10-2021 12:13-0400 Diastolic blood pressure 88 mm[Hg] Jesus Ayers [facility] 11-10-2021 12:13-0400 Heart rate 93 /min Jesus Ayers [facility] 11-10-2021 12:13-0400 Respiratory rate 16 /min Jesus Ayers [facility] 11-10-2021 12:13-0400 SaO2% (BldA) [Mass fraction] 99 % Jesus Ayers [facility] 11-10-2021 12:13-0400 Systolic blood pressure 128 mm[Hg] Jesus Ayers [facility] 09-14-2021 16:00-0400 Diastolic blood pressure 98 mm[Hg] PHYSICIAN NO [facility] 09-14-2021 16:00-0400 Heart rate 106 /min PHYSICIAN NO [facility] 09-14-2021 16:00-0400 Respiratory rate 16 /min PHYSICIAN NO [facility] 09-14-2021 16:00-0400 SaO2% (BldA) [Mass fraction] 97 % PHYSICIAN NO [facility] 09-14-2021 16:00-0400 Systolic blood pressure 138 mm[Hg] PHYSICIAN NO [facility] 09-14-2021 08:00-0400 Body temperature 97.3 [degF] PHYSICIAN NO [facility] 09-11-2021 21:30-0400 Body height 165.1 cm PHYSICIAN NO [facility] 09-11-2021 21:30-0400 Body weight 111.13 kg PHYSICIAN NO [facility] 07-17-2021 11:18-0400 Diastolic blood pressure 80 mm[Hg] Jagdish Dunn [facility] 07-17-2021 11:18-0400 Heart rate 82 /min Jagdish Dunn [facility] 07-17-2021 11:18-0400 Respiratory rate 82 /min Jagdish Dunn [facility] 07-17-2021 11:18-0400 SaO2% (BldA) [Mass fraction] 99 % Jagdish Dunn [facility] 07-17-2021 11:18-0400 Systolic blood pressure 131 mm[Hg] Jagdish Dunn [facility] 07-17-2021 09:28-0400 Body temperature 97.88 [degF] Jagdish Dunn [facility] 07-17-2021 09:28-0400 Diastolic blood pressure 98 mm[Hg] Jagdish Dunn [facility] 07-17-2021 09:28-0400 Heart rate 85 /min Jagdish Dunn [facility] 07-17-2021 09:28-0400 Respiratory rate 18 /min Jagdish Dunn [facility] 07-17-2021 09:28-0400 SaO2% (BldA) [Mass fraction] 98 % Jagdish Dunn [facility] 07-17-2021 09:28-0400 Systolic blood pressure 145 mm[Hg] Jagdish Dunn [facility] 06-13-2021 12:30-0400 Hourly Rounding Una Foote [facility] Comment on above: Result Comment: Pt eats her entire lunch without nausea; states the protonix took her nausea away. 06-13-2021 10:45-0400 Blood Pressure Location Una Foote [facility] 06-13-2021 10:45-0400 Diastolic blood pressure 77 mm[Hg] Una Foote [facility] 06-13-2021 10:45-0400 Heart rate 81 /min Una Foote [facility] 06-13-2021 10:45-0400 Mean blood pressure 92 mm[Hg] Una Foote [facility] 06-13-2021 10:45-0400 Respiratory rate 20 /min Una Foote [facility] 06-13-2021 10:45-0400 Systolic blood pressure 122 mm[Hg] Una Foote [facility] 06-13-2021 10:06-0400 Body temperature 98.06 [degF] Una Foote [facility] 06-13-2021 10:06-0400 Diastolic blood pressure 79 mm[Hg] Una Foote [facility] 06-13-2021 10:06-0400 Heart rate 83 /min Una Foote [facility] 06-13-2021 10:06-0400 Mean blood pressure 96 mm[Hg] Una Foote [facility] 06-13-2021 10:06-0400 Respiratory rate 20 /min Una Foote [facility] 06-13-2021 10:06-0400 Systolic blood pressure 131 mm[Hg] Una Foote [facility] 06-13-2021 10:00-0400 Blood Pressure Location Una Foote [facility] 06-04-2021 16:17-0400 Diastolic blood pressure 77 mm[Hg] [facility] 06-04-2021 16:17-0400 Heart rate 92 /min [facility] 06-04-2021 16:17-0400 Mean blood pressure 90 mm[Hg] [facility] 06-04-2021 16:17-0400 Respiratory rate 15 /min [facility] 06-04-2021 16:17-0400 SaO2% (BldA) [Mass fraction] 97 % [facility] 06-04-2021 16:17-0400 Systolic blood pressure 117 mm[Hg] [facility] 06-04-2021 15:07-0400 Diastolic blood pressure 86 mm[Hg] [facility] 06-04-2021 15:07-0400 Heart rate 99 /min [facility] 06-04-2021 15:07-0400 Mean blood pressure 106 mm[Hg] [facility] 06-04-2021 15:07-0400 Respiratory rate 17 /min [facility] 06-04-2021 15:07-0400 SaO2% (BldA) [Mass fraction] 100 % [facility] 06-04-2021 15:07-0400 Systolic blood pressure 146 mm[Hg] [facility] 06-04-2021 14:34-0400 Body temperature 98.6 [degF] [facility] 06-04-2021 14:34-0400 Diastolic blood pressure 87 mm[Hg] [facility] 06-04-2021 14:34-0400 Heart rate 105 /min [facility] 06-04-2021 14:34-0400 Mean blood pressure 108 mm[Hg] [facility] 06-04-2021 14:34-0400 Respiratory rate 18 /min [facility] 06-04-2021 14:34-0400 SaO2% (BldA) [Mass fraction] 96 % [facility] 06-04-2021 14:34-0400 Systolic blood pressure 149 mm[Hg] [facility] 05-13-2021 12:49-0400 Body temperature 97.7 [degF] [...] 12:49-0400 Systolic blood pressure 110 mm[Hg] Ariadne Díazler [facility] Encounters Encounter Date Encounter Type Care Provider Facility Start: 10-17-2024 End: 10-17-2024 Clinisync Result Encounter Zack Angel DO Work Phone: [facility] Unsolicited Start: 10-17-2024 End: 10-17-2024 Clinisync Result Encounter Zack Angel DO Work Phone: [facility] Unsolicited Start: 10-11-2024 End: 10-11-2024 Chart abstracting Scanning Provider External [facility] Start: 10-10-2024 End: 10-10-2024 Clinisync Result Encounter Zack Angel DO Work Phone: [facility] Unsolicited Start: 10-10-2024 End: 10-10-2024 Clinisync Result Encounter Zack Angel DO Work Phone: [facility] Unsolicited Start: 10-08-2024 End: 10-08-2024 ambulatory ZACK ANGEL Not Available Start: 10-08-2024 End: 10-08-2024 flow sheet Zack Angel DO Work Phone: [facility] Luis Armando MANZANO Comment on above: Third trimester preg perez ([facility]); 31 weeks gestation of ([facility]); Hypertension affecting in third trimester ([facility]) Start: 10-08-2024 End: 10-08-2024 Bamboo flowsheet Zack Angel DO Work Phone: [facility] Start: 10-08-2024 End: 10-08-2024 Bamboo flowsheet Zack Angel DO Work Phone: [facility] Start: 10-04-2024 End: 10-04-2024 Clinisync Result Encounter Zack Angel DO Work Phone: [facility] External [facility] Unsolicited Start: 10-04-2024 End: 10-04-2024 Clinisync Result Encounter Zack Angel DO Work Phone: [facility] Unsolicited Start: 10-03-2024 End: 10-03-2024 flow sheet Zack Angel DO Work Phone: [facility] Armando [facility]BD[facility]N Comment on above: Third trimester preg perez ([facility]); Diet controlled gestational diabetes mellitus (GDM), antepartum ([facility]); Gestational diabetes mellitus (GDM), antepartum, gestational diabetes method of control unspecified ([facility]) Start: 10-03-2024 End: 10-03-2024 Clinisync Result Encounter Zack Angel DO Work Phone: [facility] Unsolicited Start: 10-03-2024 End: 10-03-2024 Clinisync Result Encounter Zack Angel DO Work Phone: [facility] Unsolicited Start: 10-03-2024 End: 10-03-2024 ambulatory ZACK ANGEL Not Available Start: 09-17-2024 End: 09-17-2024 Bamboo flowsheet Gwen SAAVEDRA Work Phone: [facility] Start: 09-17-2024 End: 09-17-2024 Bamboo flowsheet Gwen SAAVEDRA Work Phone: [facility] Start: 09-17-2024 End: 09-17-2024 flow sheet Gwen SAAVEDRA Work Phone: [facility] Armando MANZANO Comment on above: Size of fetus incons istent with dates in second trimester ([facility]) (Primary Dx); 28 weeks gestation of ([facility]) Start: 09-17-2024 End: 09-17-2024 ambulatory GWEN MCCORMICK Not Available Start: 08-29-2024 End: 08-29-2024 ambulatory ZACK ANGEL Not Available Start: 08-21-2024 End: 08-21-2024 Encounter identifier Yieverette Virk DDS Work Phone: [facility] Start: 08-20-2024 End: 08-20-2024 ambulatory ZACK ANGEL Not Available Start: 08-20-2024 End: 08-20-2024 Patient encounter procedure Zack Angel DO Work Phone: [facility] Start: 08-20-2024 End: 08-20-2024 Periodic preventive med est patient 18-39 yrs Zack Angel DO Work Phone: [facility] Comment on above: Well woman exam with routine gynecological exam; Second trimester ([facility]); 24 weeks gestation of ([facility]); Exposure to STD; Need for maternal serum alpha-protein (MSAFP) screening ([facility]); Encounter for follow-up ultrasound of anatomy ([facility]) Start: 08-20-2024 End: 08-20-2024 Bamboo flowsheet Zack Angle DO Work Phone: [facility] Start: [...] established patient Bishnu Virk DDS Work Phone: [facility] Start: 08-01-2024 ambulatory Bishnu Virk DDS [facility] Start: 07-23-2024 End: 07-23-2024 ambulatory GWEN MCCORMICK [...] Result Encounter Zack Angel DO Work Phone: [facility] External Department Unsolicited Start: 2024 End: 05-28-2024 [...] Not Available Start: 04-27-2024 End: 04-27-2024 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 Facility:[facility] Start: 04-25-2024 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 Facility:[facility] Start: 04-18-2024 End: 04-18-2024 Emergency department patient visit Alva Doris Sandro [facility] Start: 11-07-2023 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 Facility:[facility] Start: 10-19-2023 End: 10-19-2023 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 Facility:[facility] Start: 10-19-2023 End: 10-19-2023 Patient encounter procedure REY ALAS [facility] Start: 10-10-2023 End: 10-10-2023 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 Facility:[facility] Start: 10-10-2023 End: 10-10-2023 Patient encounter procedure REY ALAS [facility] Start: 07-25-2023 End: 07-25-2023 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 Facility:[facility] Start: 07-25-2023 End: 07-25-2023 Patient encounter procedure REY ALAS [facility] Start: 07-08-2023 End: 07-08-2023 Emergency department patient visit Jagdish Dunn [facility] Start: 07-06-2023 End: 07-06-2023 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 Facility:[facility] Start: 07-06-2023 End: 07-06-2023 Patient encounter procedure REY ALAS [facility] Start: 01-14-2023 End: 01-14-2023 Patient encounter procedure Ricarda Gracia [facility] Start: 01-11-2023 End: 01-11-2023 Emergency department patient visit Jagdish Dunn [facility] Start: 01-08-2023 End: 01-08-2023 Emergency department patient visit Alva Jo [facility] Start: 01-06-2023 End: 01-06-2023 Emergency department patient visit Jesus Ayers [facility] Start: 10-17-2022 End: 10-17-2022 Emergency department patient visit Jagdish Dunn [facility] Start: 02-17-2022 End: 02-17-2022 Emergency department patient visit Jagdish Dunn [facility] Start: 11-10-2021 End: 11-10-2021 Emergency department patient visit Jesus Ayers [facility] Start: 09-11-2021 End: 09-14-2021 Evaluation and management of inpatient Presley Timmons Facility:[facility] Start: 09-11-2021 End: 09-14-2021 Evaluation and management of inpatient PHYSICIAN NO [facility] Start: 08-14-2021 End: 09-14-2021 Pre-admission assessment Presley Timmons [facility] Start: 08-12-2021 End: 08-12-2021 Lab Drop off Presley Princess Timmons [facility] Start: 07-17-2021 End: 07-17-2021 Emergency department patient visit Jagdish Dunn [facility] Start: 07-02-2021 End: 07-02-2021 Patient encounter procedure Jennifer SUERO [facility] Start: 06-14-2021 End: 07-15-2021 Pre-admission assessment Una Foote [facility] Start: 06-13-2021 End: 06-13-2021 OB Triage Una Foote [facility] Start: 06-04-2021 End: 06-04-2021 Emergency department patient visit Alva Jo [facility] Start: 05-30-2021 End: 05-30-2021 Patient encounter procedure Presley Timmons [facility] Start: 2021 End: 06-14-2021 Pre-admission assessment Presley Timmons [facility] Start: 05-13-2021 End: 05-13-2021 Patient encounter procedure Ariadne Murray [facility] Start: 02-11-2021 End: 02-11-[address] RORO GARNER Facility: Procedures Date Procedure Procedure Detail Performing Clinician Start: 10-17-2024 OB BPP W NON-STRESS Zack Angel DO Work Phone: Start: 10-10-2024 US OB BPP W NON-STRESS Zack Angel [...] 08-21-2024 Documentation of current medications Bishnu Virk [employer] Work Phone: Start: 08-21-2024 End: 08-21-2024 extraction, erupted tooth or exposed root (elevation and/or forceps removal) Bishnu Virk [employer] Work Phone: Start: 08-21-2024 End: 08-21-2024 nutritional counseling for control of dental disease Yieverette Virk [employer] Work Phone: Start: 08-21-2024 End: 08-21-2024 oral hygiene instructions Bishnu Virk [employer] Work Phone: Start: 08-20-2024 RECURRENT VAGINITIS (HTRX) [...] Start: 08-15-2024 End: 08-15-2024 oral hygiene instructions Yieverette Virk DDS Work Phone: Start: 08-15-2024 End: 08-15-2024 panoramic radiographic image Bishnu Virk Maikel DS Work Phone: Start: 07-24-2024 Urnls dip stick/tabl et rgnt non-auto w/o micrscp Gwen SAAVEDRA Work Phone: Start: 06-18-2024 Urnls dip stick/tabl et rgnt non-auto w/o micrscp Zack Angel DO Work Phone: Start: 2024 TB DRUG SCREEN RAPI D (URINE) Zack Angel [...] Td Vaccines (3 - Td or Tdap) [facility] Start: 08-20-2029 Screening for malign ant neoplasm of cervix [facility] Start: 08-21-2027 Screening for malign ant neoplasm of cervix Pap Smear [facility] Start: 10-04-2025 Adult BMI Screening Adult BMI Screen ing [facility] Start: 10-18-2024 End: 10-18-2024 ambulatory 10/18/2024 1:30 PM EDT Support Visit [facility] at [facility] [address] [place] [id number] Krista Cruz RN [address] [facility], [address] [place] [id number] Laura Weaver LD [facility] Start: 10-17-2024 End: 10-17-2024 Patient encounter procedure 10/17/2024 1:30 PM EDT Routine [facility] Luis Armando [facility]BG[facility] [address] [place] [address] Zack Ortiz DO [address] [place] [address] [facility] Start: 10-15-2024 Influenza vaccination [facility] Start: 10-03-2024 End: 04-05-2025 US biophysical profile w non stress test US biophysical profile w non stress test Imaging Routine Gestational diabetes mellitus (GDM), antepartum, gestational diabetes method of control unspecified ([facility]) Expected: 10/03/2024 (Approximate), Expires: 04/05/2025 [facility] Work Phone: Comment on above: Expected: 10/03/2024 (Approximate), Expires: 04/05/2025 Start: 09-20-2024 End: 09-20-2024 US for US OB limited 1+ fetuses Imaging Routine Encounter for follow-up ultrasound of anatomy ([facility]) Expected: 09/20/2024, Expires: 09/20/2024 [facility] Work Phone: Comment on above: Expected: 09/20/2024 , Expires: 09/20/2024 Start: 09-17-2024 End: 01-17-2025 US for US OB follow up transabdominal approach Imaging Routine Size of fetus inconsistent with dates in second trimester ([facility]) Expected: 09/17/2024, Expires: 01/17/2025 [facility] Work Phone: Comment on above: Expected: 09/17/2024 , Expires: 01/17/2025 Start: 09-17-2024 End: 09-17-2024 Patient encounter procedure [facility] Comment on above: Arrived Start: 09-05-2024 Basilio Sabrina [facility] Work Phone: Start: 08-29-2024 End: 08-29-2024 Professional / ancillary services management 08/29/2024 1:00 PM EDT Ancillary Procedure [facility] [address] [place] [address] [facility] Start: 08-21-2024 [facility] Work Phone: Start: 08-20-2024 End: 08-20-2024 Patient encounter procedure 08/20/2024 2:10 PM EDT Routine [facility] [address] [place] [address] Zack Ortiz DO [address], [place] [address] [facility] Start: 08-15-2024 [facility] Work Phone: Start: 07-23-2024 End: 07-23-2024 Patient encounter procedure 07/23/2024 2:30 PM EDT Routine [facility] [address] [place] [address] Gwen Mccormick PA [address] [place] [address] [facility] Start: 07-23-2024 End: 08-22-2024 Alpha fetoprotein, maternal Alpha fetoprotein, maternal Lab Routine Need for maternal serum alpha-protein (MSAFP) screening Expected: 07/23/2024 (Approximate), Expires: 08/22/2024 [facility] Work Phone: Comment on above: Expected: 07/23/2024 (Approximate), Expires: 08/22/2024 Start: 07-23-2024 End: 07-23-2024 Professional / ancillary services management 07/23/2024 1:30 PM EDT Ancillary Procedure [facility] OB [address] [place] [id number] [facility] Start: 06-18-2024 End: 09-18-2024 US for US OB 14+ weeks anatomy scan Imaging Routine Screening, , for anatomic survey Expected: 06/18/2024, Expires: 09/18/2024 [facility] Work Phone: Comment on above: Expected: 06/18/2024 , Expires: 09/18/2024 Start: 06-18-2024 End: 06-18-2024 Patient encounter procedure [facility] OB Comment on above: Arrived Start: 2024 Screening for malign ant neoplasm of cervix [facility] Start: 05-18-2024 End: 05-18-2025 ABO/Rh ABO/Rh Lab Routine Missed menses , unspecified gestational age Expected: 05/18/2024 (Approximate), Expires: 05/18/2025 [facility] Comment on above: Expected: 05/18/2024 (Approximate), Expires: 05/18/2025 Start: 05-18-2024 End: 05-18-2025 Blood type and Indirect antibody screen panel - Blood Type and screen Lab Routine Missed menses , unspecified gestational age Expected: 05/18/2024 (Approximate), Expires: 05/18/2025 [facility] Work Phone: Comment on above: Expected: 05/18/2024 (Approximate), Expires: 05/18/2025 Start: 05-18-2024 End: 05-18-2025 Drugs of abuse panel - Urine by Screen method Rapid drug screen, urine Lab Routine , unspecified gestational age Encounter for supervision of normal first in first trimester Expected: 05/18/2024 (Approximate), Expires: 05/18/2025 [facility] Comment on above: Expected: 05/18/2024 (Approximate), Expires: 05/18/2025 Start: 10-16-2023 COVID-19 Vaccine () COVID-19 Vaccine () [facility] Start: 09-14-2021 [facility] Work Phone: Start: 09-12-2021 Hospital admission [facility] Work Phone: Start: 09-11-2021 Delivery of Products of Conception, External Approach Delivery of Products of Conception, External Approach [facility] Start: 09-11-2021 Division of Female Perineum, External Approach Division of Female Perineum, External Approach [facility] Start: 09-11-2021 Drainage of Amniotic Fluid, Therapeutic from Products of Conception, Via Natural or Artificial Opening Drainage of Amniotic Fluid, Therapeutic from Products of Conception, Via Natural or Artificial Opening [facility] Start: 05-28-2015 Screening for malign ant neoplasm of cervix Pap Smear [facility] Start: 2012 Adult BMI Follow Up Plan Adult BMI Follow Up Plan [facility] Start: 2006 Depression Screening Depression Scre ening [facility] Start: 2006 Tobacco Screening Tobacco Screening [facility] Bacteria identified in Urine by Culture Urine culture Microbiology Routine Missed menses Ordered: 05/18/2024 [facility] Comment on above: Ordered: 05/18/2024 CBC W Auto Different ial panel - Blood CBC and differential Lab Routine Missed menses , unspecified gestational age Ordered: 05/18/2024 [facility] Comment on above: Ordered: 05/18/2024 CHLAMYDIA TRACHOMATI S (GENITO/STI) CHLAMYDIA TRACHOMATIS (GENITO/STI) Lab Routine Exposure to STD Ordered: 08/20/2024 [facility] Comment on above: Ordered: 08/20/2024 Cytology Cervical or vaginal smear or scraping study Pap Smear Pathology and Cytology Routine Well woman exam with routine gynecological exam Ordered: 08/20/2024 [facility] Comment on above: Ordered: 08/20/2024 Hemoglobin A1c/Hemoglobin.total in Blood Hemoglobin A1c Lab Routine Missed menses , unspecified gestational age Ordered: 05/18/2024 [facility] Comment on above: Ordered: 05/18/2024 Hepatitis B virus surface Ag [Presence] in Serum or Plasma by Immunoassay Hepatitis B surface antigen Lab Routine Missed menses , unspecified gestational age Ordered: 05/18/2024 [facility] Comment on above: Ordered: 05/18/2024 Hepatitis C virus Ab [Presence] in Serum or Plasma by Immunoassay Hepatitis C antibody Lab Routine Missed menses , unspecified gestational age Ordered: 05/18/2024 [facility] Comment on above: Ordered: 05/18/2024 HIV-1/HIV-2 antigen/antibody combination immunoassay HIV-1 and HIV-2 antibodies Lab Routine Missed menses , unspecified gestational age Ordered: 05/18/2024 [facility] Comment on above: Ordered: 05/18/2024 Human papilloma viru s DNA [Presence] in Unspecified specimen by Probe with amplification HPV DNA probe, amplified Microbiology Routine Well woman exam with routine gynecological exam Ordered: 08/20/2024 [facility] Comment on above: Ordered: 08/20/2024 Neisseria gonorrhoea e DNA [Presence] in Unspecified specimen by EMMA with probe detection Neisseria gonorrhea DNA probe, direct Lab Routine Exposure to STD Ordered: 08/20/2024 [facility] Comment on above: Ordered: 08/20/2024 Patient Education Post- Di jelani Instructions [place] [facility] Work Phone: Patient referral [facility] Work Phone: Reagin Ab [Presence] in Serum by RPR RPR Lab Routine Missed menses , unspecified gestational age Ordered: 05/18/2024 [facility] Comment on above: Ordered: 05/18/2024 Rubella antibody, IgG Rubella an tibody, IgG Lab Routine Missed menses , unspecified gestational age Ordered: 05/18/2024 [facility] Healthcare Comment on above: Ordered: 05/18/2024 SURESWAB(R) ADVANCED VAGINITIS PLUS, TMA SURESWAB(R) ADVANCED VAGINITIS PLUS, TMA Pathology and Cytology Routine Exposure to STD Ordered: 08/20/2024 [facility] Comment on above: Ordered: 08/20/2024 Immunizations Immunization Date Immunization Notes Care Provider Sivakumar raines 09-13-2021 tetanus toxoid, reduced diphtheria toxoid, and acellular pertussis vaccine, adsorbed PHYSICIAN ALEXIS [facility] 10-09-2020 SARS-CoV-2 (COVID-19 ) [id number] vaccine Ricarda Garcia [facility] Comment on above: Result Comment: 2022: TPVAL 09-29-2020 tetanus toxoid, reduced diphtheria toxoid, and acellular pertussis vaccine, adsorbed; Translations: [Boostrix (Tdap)] Ariadne Murray [facility] Comment on above: Result Comment: (L) deltoid Result Comment: (L) deltoid 11-26-2011 influenza virus vaccine, unspecified formulation Ricarda Garcia [facility] 02-12-2004 influenza virus vaccine, unspecified formulation Ricarda Garcia [facility] 03-01-2003 influenza virus vaccine, unspecified formulation Ricarda Garcia [facility] 12-17-1996 varicella virus vaccine Ricarda Garcia [facility] 10-19-1995 DTaP, unspecified formulation Ricarda Garcia [facility] 10-19-1995 haemophilus influenzae type b vaccine, PRP-T conjugate Ricarda Garcia [facility] 06-21-1995 measles, mumps and rubella virus vaccine Ricarda Garcia [facility] 03-09-1995 hepatitis B vaccine, pediatric or pediatric/adolescent dosage Ricarda Garcia [facility] 1994 DTaP, unspecified formulation Ricarda Garcia [facility] 1994 haemophilus influenzae type b vaccine, PRP-T conjugate Ricarda Garcia [facility] 1994 poliovirus vaccine, unspecified formulation Ricarda Garcia [facility] 1994 DTaP, unspecified formulation Ricarda Garcia [facility] 1994 haemophilus influenzae type b vaccine, PRP-T conjugate Ricarda Garcia [facility] 1994 hepatitis B vaccine, pediatric or pediatric/adolescent dosage Ricarda Garcia [facility] 1994 poliovirus vaccine, unspecified formulation Ricarda Garcia [facility] 1994 DTaP, unspecified formulation Ricarda Garcia [facility] 1994 haemophilus influenzae type b vaccine, PRP-T conjugate Ricarda Garcia [facility] 1994 hepatitis B vaccine, pediatric or pediatric/adolescent dosage Ricarda Garcia [facility] 1994 poliovirus vaccine, unspecified formulation Ricarda Garcia [facility] NEGATED: Highlighted row has not occurred!10-04-2024 tetanus toxoid, reduced diphtheria toxoid, and acellular pertussis vaccine, adsorbed Scanning External [facility] NEGATED: Highlighted row has not occurred!07-06-2023 influenza virus vaccine, unspecified formulation REYTyra ALAS [facility] [place] Payers Date Payer Category Payer Medicaid O [employer] [id number] 2024 Medicaid [place] [id number] 2024 Medicaid [id number] 2023 [employer] Managed Care - PPO ANTHEM [id number] 2021 Self-pay 2021 Unknown [id number] 2021 [employer] Blue Shield [id number] 2021 Unknown [id number] 1994 Unknown [id number] 2.16840.1.697020.3.579.2. 593 1994 Unknown [id number] 2.16840.1.079437.3.579.2 1994 Unknown [id number] 2.16840.1.970758.3.579.2 1994 Unknown [id number] 2.16840.1.617900.3.579.2 1994 Unknown [id number] 2.16840.1.522325.3.579.2 1994 Unknown [id number] 2.16840.1.889867.3.579.2 1994 Unknown [id number] 2.16840.1.587739.3.579.2 1994 Unknown [id number] 2.16840.1.967896.3.579.2 1994 Unknown [id number] 2.16840.1.292706.3.579.2 1994 Unknown [id number] 2.16840.1.064305.3.579.2 1994 Unknown [id number] 2.16.840.1.320711.3.579.2. 727 1994 Unknown [id number] 2.16.840.1.731932.3.579.2. 716 1994 Unknown [id number] 2.16.840.1.258672.3.579.2. 9 1994 Unknown [id number] 2.16.840.1.221479.3.579.2. 9 1994 Unknown [id number] 2.16.840.1.386286.3.579.2. 1258 1994 Unknown [id number] 2.16.840.1.020370.3.579.2. 1258 1994 Unknown [id number] 2.16.840.1.555435.3.579.2. 1258 1994 Unknown [id number] 2.16.840.1.213680.3.579.2. 1258 1994 Unknown [id number] 2.16.840.1.299210.3.579.2. 1258 1994 Unknown [id number] 2.16.840.1.474777.3.579.2. 1258 1994 Unknown [id number] 2.16.840.1.663828.3.579.2. 1258 1994 Unknown [id number] 2.16.840.1.748571.3.579.2. 1258 1994 Unknown [id number] 2.16.840.1.075921.3.579.2. 9 1959 Unknown [id number] Unknown [id number] 2.16.840.1.563254.3.579.2. 531 Social History Date Type Detail Facility Start: 10-03-2020 End: 07-06-2023 Tobacco smoking status Never smoked tobacco (finding) [facility] status [facility] Start: 07-25-2018 End: 08-15-2015 Sex Assigned At Female [facility] Start: 1995 Sex Assigned At Female [facility] Start: 08-15-2024 End: 08-21-2024 Tobacco smoking status NHIS Tobacco smoking consumption unknown [facility] Start: 03-15-2024 [facility] Start: 05-17-2024 Gender identity Identifies as female gender (finding) [facility] Start: 05-17-2024 Sexual orientation Bisexual (finding) [facility] Start: 08-15-2024 Alcohol intake Alcohol Use Details [facility] Sexual Orientation Straight or heterosexu al [facility] Work Phone: Start: 07-25-2018 History of Social function [facility] Start: 1995 Sex assigned at Not on file [facility] Start: 09-17-2014 Sex Female (finding) [facility] Medical Equipment Procedure Code Equipment Code Equipment Origin al Text Equipment Identifier Dates 1 strip by In Vi tro route Daily Use in the morning prior to breakfast, 1 hour after each meal for a total of 4times daily. [id number] Start: 06-18-2024 End: 07-18-2024 1 each by In Vit ro route Daily Use to check FSBS four times daily [id number] Start: 06-18-2024 End: 07-18-2024 Use as instructed [id number] Start: 10-03-2024 End: 10-03-2024 Goals Date Patient Goal Desired Activity /State Functional Status Date Assessment Result Facility 04-18-2024 Functional Status N/A [facility] 10-10-2023 Functional Status N/A [facility] 07-08-2023 Functional Status N/A [facility] 07-06-2023 Functional Status N/A [facility] 01-11-2023 Functional Status N/A [facility] 01-08-2023 Functional Status N/A [facility] 01-06-2023 Functional Status N/A [facility] 10-17-2022 Functional Status N/A [facility] 02-17-2022 Functional Status N/A [facility] 11-10-2021 Functional Status N/A [facility] 09-14-2021 Functional status Patient at Baseline [facility] Work Phone: Mental Status Date Assessment Result Facility 09-14-2021 Cognitive function Cognitive Sta tus Patient at Baseline [facility] Work Phone: Clinical Notes 05-13-2021 to 10-08-2024 Nayeli Randle, TERRITORY ACCOUNT REPRESENTATIVE - 10/08/2024 2:20 PM EDTJane Lang LPN [...] nursing note reviewed. Exam conducted with a lamp replacer present. Vitals: Estimated body mass index is 49.33 kg/m as calculated from the following: Height as of 10/28/21: 5' 4 . Weight as of this encounter: 287 lb 6.4 oz. BP: (!) 142/100 No LMP recorded. Patient is . ASSESSMENT & PLAN ICD-10-CM 1. Third trimester ([facility]) Z34.93 Urine dip 2. 31 weeks gestation of ([facility]) Z3A.31 Urine dip Patient was seen at [facility] last week. Patient left AMA and was advised that it is recommended that she return to [facility] until delivery as instructed. Patient declines and would like to continue locally at this time. Informed patient that if she experiences any symptoms then she is to return to [facility] to be monitored. Patient declines and will increase BP meds to Labetalol 300mg TID. Patient aware that she needs to continue her NST/BPPs and weekly office visits. Patient voiced that she has changed her diet and her diabetes is now under control. Documented by Nayeli Randle LPN on behalf of: Zack Ortiz DO documented in this encounter [facility] 10-03-2024 History of Presen t illness Narrative Reason for Appointment: Patient ID: Sabrina Richmond is a 29 y.o. female who presents for Weight Management Patient presents today for Return OB appointment. MEDICATIONS Current Outpatient Medications Medication Instructions ALBUTEROL IN Alcohol Swabs (Alcohol Prep Pad) 70 % pads 1 Pad, Topical, Daily, Use four times daily to check FSBS. Blood Glucose Monitoring Suppl ([employer] Glucometer) w/Device kit 1 kit, Does not [...] nursing note reviewed. Exam conducted with a lamp replacer present. Vitals: Estimated body mass index is 50.98 kg/m as calculated from the following: Height as of 10/28/22: 5' 4 . Weight as of this encounter: 297 lb. BP: (!) 154/100 No LMP recorded. Patient is . ASSESSMENT & PLAN ICD-10-CM 1. Third trimester ([facility]) Z34.93 POCT urinalysis dipstick manually resulted 2. Diet controlled gestational diabetes mellitus (GDM), antepartum ([facility]) O24.410 Return OB: Patient presents today [...] on insulin. Pt to be referred to [facility] for diabetic ed and insulin prescription. Pt to start NST/BPP pt bp elevated, pt being sent to [facility] for obs. Orders Placed This Encounter Procedures POCT urinalysis dipstick manually resulted Follow Up: Patient is to return to office in 2 week for routine OB appointment. Documented by Jane Lang LPN on behalf of: Zack Ortiz DO documented in this encounter [facility] 09-17-2024 History of Presen t illness Narrative Reason for Appointment: Patient ID: Sabrina Richmond is a 29 y.o. female who presents for Routine Visit Patient presents today for Return OB appointment. MEDICATIONS Current Outpatient Medications Medication Instructions ALBUTEROL IN Alcohol Swabs (Alcohol Prep Pad) 70 % pads 1 Pad, Topical, Daily, Use four times daily to check FSBS. Blood Glucose Monitoring Suppl ([employer] Glucometer) w/Device kit 1 kit, Does not [...] PLAN ICD-10-CM 1. 28 weeks gestation of ([facility]) Z3A.28 Return OB: Patient presents [...] of: KERI Velasquez documented in this encounter [facility] 08-21-2024 History of Presen t illness Narrative Encounter Date ext [facility] Work Phone: [phone] History of Present illness Narrative* Berta Yoder [...] nursing note reviewed. Exam conducted with a lamp replacer present. Vitals: Estimated body mass index is 47.38 kg/m as calculated from the following: Height as of 10/28/21: 5' 4 . Weight as of 07/23/24: 276 lb. BP: No LMP recorded. Patient is . ASSESSMENT & PLAN ICD-10-CM 1. Well woman exam with routine gynecological exam Z01.419 Pap Smear HPV DNA probe, amplified 2. Second trimester ([facility]) Z34.92 POCT urinalysis dipstick manually resulted 3. 24 weeks gestation of ([facility]) Z3A.24 4. Exposure to STD Z20.2 SURESWAB(R) ADVANCED VAGINITIS PLUS, TMA CHLAMYDIA TRACHOMATIS (GENITO/STI) Neisseria gonorrhea DNA probe, direct 5. Need for maternal serum alpha-protein (MSAFP) screening ([facility]) Z36.1 6. Encounter for follow-up ultrasound of anatomy ([facility]) Z36.2 US OB limited 1+ fetuses [...] behalf of: alexandra Velasquez documented in this encounterMadison Medical [id number] History of Present illness Narrative* Encounter Date Complaint History Of Prese nt Illness DL DL [facility] Work Phone: 1(418) 905-705206-09-2025 History of Present illness Narrative* KERI Velasquez [...] nursing note reviewed. Exam conducted with a lamp replacer present. Vitals: Estimated body mass index is [...] of: Manasa Conroy NP documented in this encounterMadison Medical [id number] History of Present illness Narrative* Manasa Conroy [...] nursing note reviewed. Exam conducted with a lamp replacer present. Vitals: Estimated body mass index is [...] will begin ASA 81 mg Documented by Maansa Conroy NP on behalf of: Zack Ortiz DO documented in this encounterMadison Medical [id number] History of Present illness Narrative* Snehal Lamb [...] or undercooked meat, and stay away from [facility]. Patient has also been advised to [...] by: Snehal Lamb MA documented in this encounterMadison Medical [id number] Hospital Discharge instructions Patient Education 04/18/2024 14:10:03 Community-Acquired Pneumonia, Adult, Jjxk-jo-Tben Community-Acquired Pneumonia, Adult Pneumonia is an infection [...] Follow these instructions at home: Medicines Take wnzp-pdq-hqlxdkc and prescription medicines only as told by [...] cannot use soap and water, use hand zoning engineer. Contact a doctor if: You have a [...] provider. Document Revised: 03/31/2022 Document Reviewed: 03/31/2022 [employer] Patient Education 2023 [employer]. Follow Up Care 04/18/2024 11:38:41 With:REY ALAS Address: [address] [place] [address] [address] [place] [address] Business (1) When:04/21/2024 13:47:32 Comments:Call for diagnosis based follow up [facility] 03-05-2025 NoteED Patient Education Note Infectious Disease [...] these instructions at home: Medicines ??? Take uuqm-dwy-qbamjaz and prescription medicines only as told by [...] cannot use soap and water, use hand zoning engineer. Contact a doctor if: ??? You have [...] lungs. ??? Community-acquired pneumonia (more content not included)...[facility]03-05-2025 Evaluation + Plan noteExtracted from: Title:ED Note Author:Derick MS III, James Merida Date:04/18/24 Pneumonia (J18.9: Pneumonia, unspecified organism) Orders: albuterol, 1 puff(s), Inhalation, q6hr for wheezing, 18 gram, Refill(s) 0, [id number], 165, cm, 04/18/24 11:46:00 EST, Height/Length Dosing, 124.5, kg, 04/18/24 11:46:00 EST, Weight Dosing amoxicillin, 1,000 mg = 2 cap(s), Oral, q12hr, X 7 day(s), # 28 cap(s), Refills(s) 0, Pharmacy: [id number], 165, cm, 04/18/24 11:46:00 EST, Height/Length Dosing, 124.5, kg, 04/18/24 11:46:00 EST, Weight Dosing Influenza A&B Ag Rapid COVID Antigen ([facility]) [facility] 05-24-2024 Hospital Discharge instructions Patient Education 07/08/2023 [...] if you feel dizzy. General instructions Take sipa-vkf-dzhonqp and prescription medicines only as told by [...] provider. Document Revised: 12/31/2020 Document Reviewed: 12/31/2020 [employer] Patient Education 2022 [employer]. 07/08/2023 14:32:37 Sinus Pain Sinus Pain Sinus [...] to cool or dry air. Medicines Take drag-lvx-rgggjqo and prescription medicines only as told by [...] provider. Document Revised: 01/03/2022 Document Reviewed: 01/03/2022 [employer] Patient Education 2022 [employer]. Follow Up Care 07/08/2023 12:48:51 With:REY ALAS Address: [address] [place] [phone] Business (1) When:07/11/2023 14:12:36 [facility]05-24-2024 Evaluation + Plan noteExtracted from: Title:ED Note [...] dizziness, # 15 tab(s), Refills(s) 0, Pharmacy: [id number], 165.1, cm, 07/08/23 12:52:00 EDT, Height/Length Dosing, 127, kg, 07/08/23 12:52:00 EDT, Weight Dosing meclizine, 25 mg = 2 tab(s), Tab, Oral, Once, Stop date 07/08/23 13:02:00 EDT, STAT, Start date 07/08/23 13:02:00 EDT, 07/08/23 13:02:00 EDT XR Chest Single View Future Appointments Appointment Date:07/25/2023 08:40:00 AM Scheduled Provider:JOAQUÍN RODRIGUEZ Location:[facility] Appointment Type:[facility]05-22-2024 Hospital Discharge instructions Patient Education 07/06/2023 10:09:45 [...] Follow these instructions at home: Medicines Take cbzl-tqg-dogofsr and prescription medicines only as told by [...] for Headache and Migraine Patients (CHAMP): [email or web address] [place] Migraine [employer]: [email or web address] National Headache Foundation: headaches.org [...] provider. Document Revised: 03/19/2020 Document Reviewed: 03/19/2020 [employer] Patient Education 2022 [employer]. Follow Up Care 06/28/2023 15:15:45 With:JOAQUÍN RODRIGUEZ FAM Address: When:4 weeks [facility] [place] 11-28-2023 Hospital Discharge instructions Patient Education 01/11/2023 19:37:18 Cervical Sprain, Xlga-fh-Jzwg Cervical Sprain A cervical sprain is also [...] Follow these instructions at home: Medicines Take uccz-uwp-gqgfypg and prescription medicines only as told by your doctor. Ask your doctor if the medicine prescribed to you: ?Requires you to avoid driving or using heavy machinery. ?Can cause trouble pooping (constipation). You may need to take these actions to prevent or treat trouble pooping: ?Drink enough fluid to keep your pee (urine) pale yellow. ?Take wfsf-uro-cdhzuia or prescription medicines. ?Eat foods that are [...] provider. Document Revised: 05/10/2022 Document Reviewed: 10/10/2019 [employer] Patient Education 2022 [employer]. Follow Up Care 01/11/2023 15:55:53 With:CROW LYLES DO, FAM Address: When:1 to 2 days Comments:Call today to schedule your follow up [facility]11-25-2023 Hospital Discharge instructions Patient Education 01/08/2023 18:29:49 [...] if you feel dizzy. General instructions Take tlql-ouq-mxtdebs and prescription medicines only as told by [...] provider. Document Revised: 12/31/2020 Document Reviewed: 12/31/2020 [employer] Patient Education 2022 [employer]. 01/08/2023 18:29:49 General Headache Without Cause General [...] help with your condition: Managing pain Take ntuv-lkh-ucgdwis and prescription medicines only as told by [...] right away. Call your local emergency services (040 in the [place] Do not drive yourself [...] provider. Document Revised: 07/01/2021 Document Reviewed: 07/01/2021 [employer] Patient Education 2022 [employer]. Follow Up Care 01/08/2023 12:35:43 With:Terrell HAN Address: [address] [facility], [place] [address] Business (1) When:01/11/2023 18:19:03 Comments:Return to the emergency room if your headache recurs, fever, vomiting, vision change or any new symptoms. [facility]11-25-2023 Evaluation + Plan noteExtracted from: Title:ED Note [...] or Brain w/o Contrast Extra SST Tube [facility]11-23-2023 Hospital Discharge instructions Follow Up Care 01/06/2023 14:44:33 With:[employer] Address: [address] [place] [address]- Business (1) When:01/09/2023 17:03:00 With:XXXX NONE Address: [place] When:Within 3 Day(s) [facility]11-23-2023 Evaluation + Plan noteExtracted from: Title:ED Note [...] Tube Influenza A&B Ag Rapid COVID Antigen ([facility]) [facility]09-03-2023 Hospital Discharge instructions Patient Education 10/17/2022 17:28:51 [...] younger than 2 years. Live in a fdc. Travel on cruise ships. What are the [...] and water are not available, use hand zoning engineer. Make sure that all people in your household wash their hands well and often. Take iimz-isu-ijyciui and prescription medicines only as told by [...] and water are not available, use hand zoning engineer. This information is not intended to replace advice given to you by your health care provider. Make sure you discuss any questions you have with your health care provider. Document Revised: 11/30/2021 Document Reviewed: 11/30/2021 [employer] Patient Education 2022 [employer]. Follow Up Care 10/17/2022 13:03:17 With:ROOSEVELT FRANK Address: Aruna FORDE [facility] [address] [place] [id number] [facility] (1) When:10/20/2022 17:25:20 Comments:Call the [...] weakness, or any new or worsening symptoms. [facility]09-03-2023 Evaluation + Plan noteExtracted from: Title:ED Note [...] Patient was discharged home. Jagdish Dunn DO, [facility]01-04-2023 Hospital Discharge instructions Patient Education 02/17/2022 21:17:10 [...] if you start to feel better. Take ahcb-mfo-ehwfrby and prescription medicines only as told by [...] 03/10/2005 Document Revised: 08/03/2018 Document Reviewed: 08/03/2018 [employer] Patient Education 2020 [employer]. 02/17/2022 21:17:10 Nausea and Vomiting, Adult Nausea [...] water added (diluted fruit juice). Eat bland, uvhy-uf-vqmyfj foods in small amounts as you are able. These foods include bananas, applesauce, rice, lean meats, toast, and crackers. Avoid fluids that contain a lot of sugar or caffeine, such as energy drinks, sports drinks, and soda. Avoid alcohol. Avoid spicy or fatty foods. General instructions Take vxjy-fjr-wejwcuk and prescription medicines only as told by your health care provider. Drink enough fluid to keep your urine pale yellow. Wash your hands often using soap and water. If soap and water are not available, use hand zoning engineer. Make sure that all people in your [...] eating and drinking to prevent dehydration. Take usgv-aqh-ruevymz and prescription medicines only as told by [...] 01/31/2006 Document Revised: 05/25/2019 Document Reviewed: 07/11/2018 [employer] Patient Education 2020 [employer]. 02/17/2022 21:17:10 Abdominal Pain, Adult Abdominal Pain, [...] Follow these instructions at home: Medicines Take yibd-vde-yufiizt and prescription medicines only as told by [...] Watch your condition for any changes. Take wdru-jcn-yvwnjry and prescription medicines only as told by [...] 11/10/2005 Document Revised: 06/11/2019 Document Reviewed: 06/11/2019 [employer] Patient Education 2019 [employer]. Follow Up Care 02/17/2022 15:51:20 With:Hosea John Address: [address] [place] [address]- When:02/20/2022 21:03:18 Comments:Return to the emergency room if your pain gets worse, vomiting, fever or any new symptoms [facility]01-04-2023 Evaluation + Plan noteExtracted from: Title:ED Note [...] care of the patient was transitioned to ms upon shift change to follow-up with CT [...] are both in agreement. Additional diagnosis: Enteritis [facility]09-27-2022 Hospital Discharge instructions Patient Education 11/10/2021 13:29:03 [...] Treatment for this condition includes: Antibiotic medicine. Qhob-haw-wdlxwyk medicines to treat discomfort. Drinking enough water [...] Follow these instructions at home: Medicines Take fjhz-jyl-lncztrg and prescription medicines only as told by [...] 11/10/2005 Document Revised: 01/18/2019 Document Reviewed: 08/10/2018 [employer] Patient Education 2020 [employer]. Follow Up Care 11/10/2021 12:07:08 With:Horacio Link Address: [address] [place] [address] [facility] (1) When:11/13/2021 13:20:06 [facility]09-27-2022 Evaluation + Plan note Diagnostic Tests Pending * Urine Culture 11/10/21 [facility]08-01-2022 Progress note Author Radha Orona [facility] September 14, 2021 10:31am Note Date/Time September 14, 2021 10: 31am [facility] [address] [place] [address] ORDER TAKER Progress Note Signed Patient: Sabrina Richmond MR#: [id number] : 1995 Acct:[id number] Age/Sex: 26 / F Adm Date: 2 Loc: Room: [address] [place] [address] Type: ADM IN Attending Dr: Presley Timmons [...] % (Auto) 73.9, Lymph % (Auto) 18.5, Isabella % (Auto) 6.5, Eos % (Auto) 0.8, Baso % (Auto) 0.3, Neut # (Auto) 9.7 H, Lymph # (Auto) 2.4, Isabella # (Auto) 0.9 H, Eos # (Auto) [...] Documented By: Radha Orona DO 09/14/21 07 Signed By: <Electronically signed by Radha Orona DO> 09/14/21 1031 [facility] Work Phone: 1(951) 661-973007-31-2022 Progress note Author PRESLEY TIMMONS [facility] September 13, 2021 8:54am Note Date/Time September 13, 2021 8:54 am [facility] [address] [place] [address] ORDER TAKER Progress Note Signed Patient: Sabrina Richmond MR#: [id number] : 1995 Acct:[id number] Age/Sex: 26 / F Adm Date: 2 Loc: Room: [address] [place] [address] Type: ADM IN Attending Dr: Presley Timmons [...] being breast fed. Patient comments: no complaints baby status: doing well [place] feeding status: exclusively breast feeding OB - [...] routine care Documented By: PRESLEY TIMMONS MD 09/13/2154 Signed By: <Electronically signed by MD PRESLEY TIMMONS> 09/13/21 0854 [facility] Work Phone: 1(263) 303-147007-30-2022 [facility] Evaluation + Plan note Diagnostic Tests Pending * Group B Streptococcus colonization by PCR 08/12/21 [facility]06-03-2022 Hospital Discharge instructions Patient Education 07/17/2021 11:06:59 [...] exercise. Managing pain, stiffness, and swelling Take mtup-wbp-fgxpfkl and prescription medicines only as told by [...] 01/31/2006 Document Revised: 01/13/2018 Document Reviewed: 03/02/2017 [employer] Patient Education 2020 [employer]. Follow Up Care 07/17/2021 09:19:46 With:Shannon SANCHEZ, Presley Sánchez Address: When:07/20/2021 [facility]04-30-2022 Evaluation + Plan note Diagnostic Tests Pending * Urine Culture 06/13/21 [facility]04-30-2022 Hospital Discharge instructions Follow Up Care 06/13/2021 09:58:45 With:Presley Timmons Address:Unknown When:06/24/2021 Comments:Call for any problems.Call for fever > 100.5 FCall for severe abdominal painCall physician for heavy vaginal bleedinCall physician if symptoms worsenReturn for decreased movementReturn if ruptured membranes or vaginalKeep next scheduled appt [facility]04-21-2022 Hospital Discharge instructions Patient Education 06/04/2021 16:07:19 [...] water added (diluted fruit juice). Eat bland, ofpx-ke-swgfgt foods in small amounts as you are able. These foods include bananas, applesauce, rice, lean meats, toast, and crackers. Avoid fluids that contain a lot of sugar or caffeine, such as energy drinks, sports drinks, and soda. Avoid alcohol. Avoid spicy or fatty foods. General instructions Take gvag-kls-rhhvbps and prescription medicines only as told by your health care provider. Drink enough fluid to keep your urine pale yellow. Wash your hands often using soap and water. If soap and water are not available, use hand zoning engineer. Make sure that all people in your [...] eating and drinking to prevent dehydration. Take rvph-oqp-bhjtqsw and prescription medicines only as told by [...] 01/31/2006 Document Revised: 05/25/2019 Document Reviewed: 07/11/2018 [employer] Patient Education 2020 [employer]. Follow Up Care 06/04/2021 14:33:50 With:Ann-Marie Romero Address: [address] [place] [address] [address] [place] [phone] Business (1) When:06/07/2021 16:06:44 [facility]04-21-2022 Evaluation + Plan noteExtracted from: Title:ED Note [...] q6hr, # 14 tab(s), Refills(s) 0, [id number], 165, cm, 06/04/21 14:38:00 EDT, Height/Length Dosing, 123, kg, 06/04/21 14:38:00 EDT, Weight Dosing Sodium Chloride 0.9% intravenous solution, 1,000 mL, Soln-IV, IV, Once, Stop date 06/04/21 14:53:00 EDT, STAT, Start date 06/04/21 14:53:00 EDT, mL/hr, Infuse over 61, minute(s) Automated Diff CBC w/ Auto Diff Comprehensive Metabolic Panel eGFR Extra Blue Tube Lipase Level UA With Cult Reflex [facility]03-30-2022 Hospital Discharge instructions Patient Education 05/13/2021 13:28:47 [...] 10/28/2004 Document Revised: 02/17/2017 Document Reviewed: 05/01/2016 [employer] Patient Education 2020 [employer]. 05/13/2021 13:28:44 Rapid Strep Test Rapid Strep [...] 03/10/2005 Document Revised: 05/25/2019 Document Reviewed: 10/04/2017 [employer] Patient Education 2020 [employer]. Follow Up Care 05/13/2021 12:18:07 With:Nick DOMINGO, Ann-Marie Salaazr [facility] Address: [facility] [place] [phone] When: Unknown [facility] Consult note* Clinical Note Date No Information [facility] Work Phone: Discharge summary* Clinical Note Date No Information [facility] Work Phone: Evaluation + Plan note No data available for this section [facility] Evaluation + Plan note Future Appointments Appointment Date:01/14/2023 01:40:00 PM Scheduled Provider:Ricarda Anthony Location:[facility] Appointment Type: New [facility] - [facility] Future Appointments Appointment Date:07/25/2023 08:40:00 AM Scheduled Provider:JOAQUÍN RODRIGUEZ Location:[facility] Appointment Type: Open [facility] [place] Evaluation + Plan note Future Appointments Appointment Date:10/12/2023 08:00:00 AM Scheduled Provider: [facility] ([facility] Appointment Date:11/07/2023 02:00:00 PM Scheduled Provider:JOAQUÍN RODRIGUEZ Location:[facility] Appointment Type: Open Future Scheduled Tests Radiology* MRI Brain w/ + w/o Contrast 10/12/23 [facility] [place] Evaluation + Plan note Future Appointments Appointment Date:11/07/2023 02:00:00 PM Scheduled Provider:JOAQUÍN RODRIGUEZ Location:[facility] Appointment Type:FM Open [facility] Evaluation note* Diagnosis Onset Date Resolution Status 40 weeks gestation of acute Status post vaginal delivery acute [facility] Work Phone: Evaluation note* Diagnosis [...] ([facility]-HCC) Encounter for follow-up ultrasound of anatomy ([facility]) [facility] Type Assessment Date No Information [facility] Work Phone: Evaluation note* Diagnosis Size of fetus inconsistent with dates in second trimester (HHS-HCC)- Primary 28 weeks gestation of (HHS-HCC) [facility]* Diagnosis Third trimester (HHS-HCC) state, incidental 31 weeks gestation of (HHS-HCC) Hypertension affecting in third trimester (HHS-HCC) [facility]* Diagnosis Third trimester (HHS-HCC) state, incidental Diet controlled gestational diabetes mellitus (GDM), antepartum (HHS-HCC) Gestational diabetes mellitus (GDM), antepartum, gestational diabetes method of control unspecified ([facility]-H[facility]) [facility]* Clinical Note Date No Information [facility] Work Phone: History of Past illness Narrative* Condition Effective Dates (start - stop) O utcome No Information [facility] Work Phone: Hospital Discharge instructions No data available for this section [facility]* Date Instruction Additional Infor mation No Information [facility] Work Phone: InstructionsNot on filedocumented in this encounter [facility] No data available for this section [facility]* Clinical Note Date No Information [facility] Work Phone: Reason for referral (narrative) Referred by: JOAQUÍN RODRIGUEZ [facility] [place] Reason for referral (narrative)* Reason For Referral No Information [facility] Work Phone: Review of systems Narrative - Reported* System Pos/Neg Findings No Information [facility] Work Phone: Summary Purpose Family History Family [...] section and content) DATE CREATED AUTHOR 02/16/2021 [employer] DATE CREATED AUTHOR AUTHOR'S ORGANIZ ATION 02/24/2022 [facility] DATE CREATED AUTHOR AUTHOR'S ORGANIZ ATION 04/20/2024 [facility] DATE CREATED AUTHOR AUTHOR'S ORGANIZ ATION 04/30/2024 [facility] DATE CREATED AUTHOR AUTHOR'S ORGANIZ ATION 08/26/2024 [facility] DATE CREATED AUTHOR AUTHOR'S ORGANIZ ATION 10/09/2024 [facility] EPIC Care Team (unrecognized sect [...] BE BASED ON THE PRIMARY CLINICAL RECORDS. [facility] [employer] [facility]. provides no warranty or guarantee of the accuracy or completeness of information in this document.
== END 2024-10-17 11:42 | disposition home or self-care (01) ==
LOC: US 10:12 → FBC 10:14
PROVIDERS: Visit Provider Obstetrics & Gynecology
DX: O24.419 Gestational diabetes mellitus in pregnancy, unspecified control (principal); Z3A.32 32 weeks gestation of pregnancy
CPT/HCPCS: 76818

== ENCOUNTER 2024-10-20 12:31 | Outpatient (OUT) | payer BC, OTHER, SELFPAY ==
--- OUTSIDE RECORDS SUMMARY | 2024-08-21 05:03 | XMS_ITS | Continuity of Care Document ---
Author Organization [facility] Address [address] [place] [address] Phone Care Team Providers Care Pick Up Attendant Name Role Phone Bishnu Virk DDS Unavailable [...] Procedure Date Nutrit Couns For Control Of [place] Dis Aug Extract; Erupted Th/exposted Rt 025 Oral Hygiene Instruction Panoramic Film Bitewings-three Films Oral Hygiene Instruction Comp Oral Eval New/estab Patient 2024 Intraoral-periapical 1st Film [id number]-mddblzfijx-[id number] Additional Jul Bitewig-single Film Oral Hygiene Instruction Limited Oral Eval Extract; Erupted Th/exposted Rt 025 Advance Directives Directive Yes / No Effective Date File Name No Information Encounters Encounter Description Practice Location Reason(s) For Visit Diagnoses Date Provider Providers Copied on Encounter [facility], [address] [place], [place], [id number], [place] tel:[phone] [facility] Dental Clinic ext (chief complaint) Encounter for screening for dental disorders Moose JAIMES Yixue. [address] [place] [address], [address], [place]. tel:[phone] [facility], [address] [place], [place], [id number], [place] tel:[phone] Dental Clinic DL (chief complaint) Encounter for screening for dental disorders Moose JAIMES Yixjono. [address] [place], [address], . tel:[phone] [facility], [address] [place], [place], [id number], [place] tel:[phone] [facility] Dental Clinic Dental ER (chief complaint) Encounter for screening for dental disorders Moose TREJOS Yixjono. [address] [place], [address], [place]. tel:[phone] Family History Family Member Type Diagnosis Age At Onset No Information Payers Payer name Insurance type Covered libertarian ID Authoriza tion(s) D [employer] [facility] [id number] D Medicaid [facility] [id number] Social History Type Description Quantity Date Captured [...] use screening . Due on due Goal Tdap. Due on due Goal Tdap Vaccine. Due on 2024 due Goal Hepatitis C screening. Due o n due Goal Influenza vaccine. Due on due Goal PRAPARE ASSESSMENT. Due on due Goal Depression screening. Due on due Goal Unhealthy drug use screening . Due on due Goal RLP. Due on due Goal HPV. Due on due Appointment Sabrina Tovar BOOKED [...]
--- OUTSIDE RECORDS SUMMARY | 2024-10-08 14:20 | XMS_ITS | Encounter Summary ---
Author Organization [facility] Address [address] [place] [address] Care Team Providers Care Fire Protection Engineering Technician Name Role Phone Unavailable Primary Care Provider Unavailabl e Reason for Visit * Reason Comments Routine Visit Encounter Details Date Type Department Care Team ([facility] Contact Info) Description 10/08/2024 2:20 PM EDT Routine [facility] [address] [phone] Zack Ortiz DO [address] [facility] [address] [place] [address] Third trimester ([facility] 31 weeks gestation of ([facility]); Hypertension affecting in third trimester ([facility]) Social History Tobacco Use Types Packs/Day Years [...] to check FSBS. Blood Glucose Monitoring Suppl ([employer] Glucometer) w/Device kit 1 kit, Does not [...] nursing note reviewed. Exam conducted with a wood and hardware outfitter present. Vitals: Estimated body mass index is 49.33 kg/m?? as calculated from the following: Height as of 22: 5' 4 . Weight as of this encounter: 287 lb 6.4 oz. BP: (!) 142/100 No LMP recorded. Patient is . ASSESSMENT & PLAN ICD-10-CM 1. Third trimester ([facility]) Z34.93 Urine dip 2. 31 weeks gestation of ([facility]) Z3A.31 Urine dip Patient was seen at [facility] last week. Patient left AMA and was advised thatit is recommended that she return to [facility] until delivery as instructed. Patient declines and would like to continue locally at this time. Informed patient that if she experiences any symptoms then she is to return to [facility] to be monitored. Patient declines and will [...] Care Team (Late st Contact Info) Description 10/24/2024 1:20 PM EDT Office Visit [facility] [address] [facility] [place] [address] Gwen Mccormick PA [address] [place] [address] documented as of this encounter Procedures Procedure Name Priority Date/Time Associated Diagnosis Comments POCT URINALYSIS DIPSTICK Routine 10/08/2024 3:15 PM EDT Third trimester ([facility]) 31 weeks gestation of ([facility]) documented in this encounter Results * (ABNORMAL) [...] ([facility]) state, incidental 31 weeks gestation of ([facility]) Hypertension affecting in third trimester ([facility]) documented in this encounter
--- OUTSIDE RECORDS SUMMARY | 2024-10-17 13:30 | XMS_ITS | Encounter Summary ---
Author Organization [facility] Address [address] [place] [address] Care Team Providers Care Casino Surveillance Officer Name Role Phone Unavailable Primary Care Provider Unavailabl e Reason for Visit * Reason Comments Routine Visit Encounter Details Date Type Department Care Team (Late Contact Info) Description 10/17/2024 1:30 PM EDT Routine [facility] [place] [address] [place] [phone] Zack Ortiz DO [address] [place] [address] 32 weeks gestation of (HHS-HCC); Third trimester [...] EDT Reason for Appointment: Patient ID: Sabrina Tvoar is a 29 y.o. female who presents [...] nursing note reviewed. Exam conducted with a tactical debriefer present. Vitals: Estimated body mass index is 49.33 kg/m?? as calculated from the following: Height as of 10/28/21: 5' 4 . Weight as of this encounter: 287 lb 6.4 oz. BP: 130/82 No LMP recorded. Patient is . ASSESSMENT & PLAN ICD-10-CM 1. 32 weeks gestation of ([facility]) Z3A.32 POCT urinalysis dipstick manually resulted 2. Third trimester ([facility]) Z34.93 POCT urinalysis dipstick manually resulted 3. Hypertension affecting in third trimester ([facility]) O16.3 US OB follow up transabdominal approach 4. Diet controlled gestational diabetes mellitus (GDM), antepartum ([facility]) O24.410 US OB follow up transabdominal approach 5. Gestational diabetes mellitus (GDM), antepartum, gestational diabetes method of control unspecified ([facility]) O24.419 Lancets Ultra Thin misc Alcohol [...] PM EDT Office Visit [facility] Luis [facility]ando [facility] [address] [place] [phone] Gwen Mccormick PA [address] [place] [address] Scheduled Orders Name Type Priority Associated Diagnoses Orde r Schedule Creatinine Lab Routine induced hypertension, antepartum (HHS-HCC) Expected: 10/17/2024 (Approximate), Expires: 10/17/2025 CBC and differential Lab Routine induced hypertension, antepartum (HHS-HCC) Expected: 10/17/2024 (Approximate), Expires: 10/17/2025 ALT Lab Routine induced hypertension, antepartum (HHS-HCC) Expected: 10/17/2024 (Approximate), Expires: 10/17/2025 AST Lab Routine induced hypertension, antepartum (HHS-HCC) Expected: 10/17/2024 (Approximate), Expires: 10/17/2025 BUN Lab Routine induced hypertension, antepartum (HHS-HCC) Expected: 10/17/2024, Expires: 10/17/2025 OB follow up transabdominal approach Imaging Routine Hypertension affecting in third trimester ([facility]) Diet controlled gestational diabetes mellitus (GDM), antepartum ([facility]) induced hypertension, antepartum (HHS-HCC) Expected: 10/17/2024, Expires: 02/16/2025 documented as of this encounter Procedures Procedure Name Priority Date/Time Associated Diagnosis Comments POCT URINALYSIS DIPSTICK Routine 10/17/2024 1:37 PM EDT 32 weeks gestation of ([facility]) Third trimester ([facility]) documented in this encounter Results [...] Visit Diagnoses Diagnosis 32 weeks gestation of ([facility]) Third trimester ([facility]) state, incidental Hypertension affecting in third trimester ([facility]) Diet controlled gestational diabetes mellitus (GDM), antepartum ([facility]) Gestational diabetes mellitus (GDM), antepartum, gestational diabetes method of control unspecified ([facility]) Elevated glucose tolerance test Impaired glucose tolerance test induced hypertension, antepartum ([facility]) Transient hypertension of , antepartum documented in this encounter
--- OUTSIDE RECORDS SUMMARY | 2024-10-20 12:35 | XMS_ITS | Encounter Summary ---
Author Organization [facility] Address [address] [place] [address] Care Team Providers Care Ingot Caster Name Role Phone Unavailable Primary Care Provider Unavailabl e Encounter Details Date Type Department Care Team (Late Contact Info) Description 10/08/2024 Bamboo flowsheet [facility] [address] [place] [address] Zack Ortiz DO [address] [place], [place] [address] Social History Tobacco Use Types Packs/Day Years [...] Department Care Team (Late Contact Info) Description 10/24/2024 1:20 PM EDT Office Visit [facility] [address] [place] [address] Gwen Mccormick PA [address] [place], [facility] documented as of this encounter Visit Diagnoses Not on filedocumented in this encounter
--- OUTSIDE RECORDS SUMMARY | 2024-10-20 12:35 | XMS_ITS | Encounter Summary ---
Author Organization [facility] Address [address] [place] [address] Care Team Providers Care Supervisor Sandblaster Name Role Phone Unavailable Primary Care Provider Unavailabl e Encounter Details Date Type Department Care Team ([facility] Contact Info) Description 08/28/2024 Orders Only [facility] Luis Armando [facility] [address] [phone] Berta Yoder [place] [address] [place] [address] Social History Tobacco Use Types Packs/Day Years [...] Description 10/24/2024 1:20 PM EDT Office Visit [facility] [address] [place] [address] Gwen Mccormick PA [address] [place], [place] [id number] documented as of this encounter Procedures Procedure [...]
--- OUTSIDE RECORDS SUMMARY | 2024-10-20 12:35 | XMS_ITS | Patient Health Record ---
Author Organization [facility] Address [address] [place] [address] Care Team Providers Care Sql Consultant Name Role Phone Maliha Matos Primary Care Provider Reason For Referral No Information Plan Of Treatment No Information Insurance Providers Payer Name Payer Address Payer Phone Subscriber Number Group Number Insured Name Patient Relationship to Insured Coverage Start Date Coverage End Date ANTHEM Primary [address] [place] [phone] [id number] JOSÉ MIGUEL KOLB Spouse - patient is the spouse of the insured 3
--- OUTSIDE RECORDS SUMMARY | 2024-10-20 12:35 | XMS_ITS | Clinical Summary ---
Author Organization [facility] Address [id number] [address] [place] [address] Care Team Providers Care Accounts Collector Name Role Phone Unavailable Primary Care Provider [...] Encounters Date Type Department Care Team Description 10/18/2024 Documentation Maternal- Medicine at [facility] [address] [place] [address] Krista Cruz RN 10/11/2024 Abstract Maternal- Medicine at [facility] [address] [place] [address] External, Scanning Provider 10/04/2024 2:31 PM EDT - 10/04/2024 11:59 PM EDT Hospital Encounter [facility] US Imaging [address] [place] [address] Discharge Disposition: Home 10/04/2024 12:23 PM EDT - 10/05/2024 3:01 PM EDT Hospital Encounter [facility] - GEN 3 Antepartum [address] [place] [address] Binh Yung MD Discharge Disposition: Left Against [...] 10/04/2024 12:24 PM EDT Plan of Treatment Health Maintenance Due Date Last Done Comments Depression Screening 2006 Tobacco Screening 2006 Adult BMI Follow Up Plan 2012 COVID-19 Vaccine (2024-2 6 season) 2024 10/09/2020 Influenza Vaccine 10/15/2024 11/26/2011, , 03/01/2003 [...] - 99 mg/dL 10/05/2024 12:00 PM EDT [facility] arterial/capilla ry 10/05/2024 11:55 AM EDT 10/05/2024 12:00 PM EDT us Binh Yung MD POINT OF CARE TEST ORDERABLES Final Result [facility] [address] [place] [address], [place] * LDH (10/05/2024 6:24 AM EDT) Only the most recent of3 resultswithin the time period is included. LDH 138 100 - 235 U/L 10/05/2024 7:33 AM EDT [facility] Blood Venous blood / Unknown Venipuncture / Unknown 10/05/2024 6:24 AM EDT 10/05/2024 7:02 AM EDT us Kay Levi MD LAB BLOOD ORDERABLES Final Res ult Performing Organization Address City/[facility]/ZIP Co de Phone Number [facility] [address] [place] [address], [place] [phone] * (ABNORMAL) CBC without diff (10/05/2024 6:24 AM EDT) Only the most recent of3 resultswithin the time period is included. WBC 14.8(H) 4 - 11 x10E9/L 10/05/2024 7:13 AM EDT [facility] RBC Count 4.69 3.8 - 5.2 X10E12/L 10/05/2024 7:13 AM EDT [facility] Hemoglobin 12.8 11.7 - 15.5 g/dL 10/05/2024 7:13 AM EDT [facility] Hematocrit 37.5 35 - 47 % 10/05/2024 7:13 AM EDT [facility] MCV 80 80 - 100 fL 10/05/2024 7:13 AM EDT [facility] MCH 27.2 27 - 34 pg 10/05/2024 7:13 AM EDT [facility] MCHC 34.0 32 - 36 g/dL 10/05/2024 7:13 AM EDT [facility] RDW 15.0 11.5 - 15 % 10/05/2024 7:13 AM EDT [facility] Platelet Count 276 150 - 450 X10E9/L 10/05/2024 7:13 AM EDT [facility] MPV 8.0 7 - 12 fL 10/05/2024 7:13 AM EDT [facility] Blood Venous blood / Unknown Venipuncture / Unknown 10/05/2024 6:24 AM EDT 10/05/2024 7:02 AM EDT us Kay Levi MD LAB BLOOD ORDERABLES Final Res ult [facility] [address] [place] [address], [place] [phone] * Uric acid (10/05/2024 6:24 AM EDT) Only the most recent of3 resultswithin the time period is included. URIC ACID 6.4 2.6 - 7.2 mg/dL 10/05/2024 7:33 AM EDT [facility] Blood Venous blood / Unknown Venipuncture / Unknown 10/05/2024 6:24 AM EDT 10/05/2024 7:02 AM EDT us Kay Levi MD LAB BLOOD ORDERABLES Final Res ult [facility] [address] [place] [address], [place] [phone] * (ABNORMAL) Comprehensive metabolic panel (10/05/2024 6:24 AM EDT) Only the most recent of2 resultswithin the time period is included. SODIUM 135 134 - 146 mmol/L 10/05/2024 7:33 AM EDT [facility] POTASSIUM 4.0 3.5 - 5.0 mmol/L 10/05/2024 7:33 AM [facility] CHLORIDE 105 98 - 109 mmol/L 10/05/2024 7:33 AM [facility] CARBON DIOXIDE 20(L) 22 - 32 mmol/L 10/05/2024 7:33 AM [facility] ANION GAP 10 5 - 15 mmol/L 10/05/2024 7:33 AM [facility] BLOOD UREA NITROGEN 8 5 - 23 mg/dL 10/05/2024 7:33 AM [facility] CREATININE 0.64 0.40 - 1.00 mg/dL 10/05/2024 7:33 AM [facility] Comment:METHOD TRACEABLE TO [facility] STANDARD GLUCOSE 111(H) 65 - 99 mg/dL 10/05/2024 7:33 AM [facility] CALCIUM 7.8(L) 8.5 - 10.5 mg/dL 10/05/2024 7:33 AM [facility] TOTAL PROTEIN 6.7 6.0 - 8.0 g/dL 10/05/2024 7:33 AM [facility] ALBUMIN 3.4 3.2 - 5.3 g/dL 10/05/2024 7:33 AM [facility] ALKALINE PHOSPHATASE 114 39 - 130 U/L 10/05/2024 7:33 AM [facility] AST 8 <=41 U/L 10/05/2024 7:33 AM [facility] ALT 5 <=31 U/L 10/05/2024 7:33 AM [facility] BILIRUBIN,TOTAL 0.3 0.3 - 1.2 mg/dL 10/05/2024 7:33 AM [facility] EGFR Non-Race Dependent >90 >=60 ml/min/1.7 3sq.m 10/05/2024 7:33 AM [facility] Comment: Reported eGFR is based on the CKD-EPI 2020 equation that does not use a race coefficient. EGFR not calculated due to patient's gender not being defined. Blood Venous blood / Unknown Venipuncture / Unknown 10/05/2024 6:24 AM EDT 10/05/2024 7:02 AM EDT Kay Levi MD LAB BLOOD ORDERABLES Final Res ult Performing Organization Address [facility]/ZIP Co de Phone Number [facility] [address] [place] [address], * Strep B screen (10/04/2024 8:55 PM EDT) CULTURE RESULTS POSITIVE FOR GROUP B STREPTOCOCCUS BY NUCLEIC ACID AMPLIFICATION 10/06/2024 12:59 AM EDT [facility] Swab (Vagina/Rectum) 10/04/2024 8:55 PM EDT 10/04/2024 9:15 PM EDT Narrative [facility] - 10/06/2024 12:59 AM EDT Group B streptococci remain universally susceptible to penicillin, ampicillin, and cefazolin. Resistance to clindamycin can occur. Please contact laboratory within 48 hours if clindamycin susceptibility testing is needed. Evon Clement DO MICROBIOLOGY - GENERAL ORDER SONIA Final Result Performing Organization Address [facility] Co de Phone Number [facility] [address] [place] [address], * ABO Rh Repeat (10/04/2024 4:48 PM EDT) Only the most recent of2 resultswithin the time period is included. ABO A 10/04/2024 7:34 PM EDT [facility] RH Positive 10/04/2024 7:34 PM EDT [facility] Blood Venous blood / Unknown Venipuncture / Unknown 10/04/2024 4:48 PM EDT 10/04/2024 6:38 PM EDT Binh Yung MD BLOOD BANK TEST ORDERABLES Fin al Result [facility] [address] [place] [address], [facility] [address] [place] [address], * (ABNORMAL) Urine protein creatinine ratio (10/04/2024 3:40 PM EDT) URINE PROTEIN, RANDOM (MG/L) 140(H) <120 mg/L 10/04/2024 5:09 PM EDT [facility] URINE CREATININE,RDM 28.24 mg/dL 10/04/2024 5:09 PM EDT [facility] U/PRO/QUALITY ASSURANCE/R&D LAB TECHNICIAN RATIO CALC 0.50(H) <=0.20 10/04/2024 5:09 PM EDT [facility] Urine Urine specimen collection, clean catch / Unknown 10/04/2024 3:40 PM EDT 10/04/2024 4:23 PM EDT Narrative [facility] - 10/04/2024 5:09 PM EDT Nephrotic Syndrome is associated with ratios >3.5 Yvon Post MD URINE ORDERABLES Final Result Performing Organization Address City/[facility]/ZIP Co de Phone Number [facility] [address] [place] [address], [place] [phone] * Buprenorphine, urnie (10/04/2024 3:40 PM EDT) BUPRENORPHINE, URINE QUALITATIVE Negative Negative 10/04/2024 5:09 PM EDT [facility] Urine Urine specimen collection, clean catch / Unknown 10/04/2024 3:40 PM EDT 10/04/2024 4:23 PM EDT Narrative [facility] - 10/04/2024 5:09 PM EDT Urine Buprenorphine cut of value = 10 ng/mL This report is intended for use in clinical monitoring or management of patients. us Yvon Post MD URINE ORDERABLES Final Result [facility] [address] [place] [address], [place] [phone] * Fentanyl, Urine Qualitative (10/04/2024 3:40 PM EDT) FENTANYL, URINE QUAL. Negative Negative 10/04/2024 5:09 PM EDT [facility] Urine Urine specimen collection, clean catch / Unknown 10/04/2024 3:40 PM EDT 10/04/2024 4:23 PM EDT Narrative [facility] - 10/04/2024 5:09 PM EDT Fentanyl screening cutoff = 5ng/ml This report is intended for use in clinical monitoring or management of patients. Yvon Post MD URINE ORDERABLES Final Result [facility] [address] [place] [address], [place] [phone] * Drug Screen, Urine (10/04/2024 3:40 PM EDT) AMPHETAMINE/METHAMP Negative Negative 10/04 5:09 PM EDT [facility] Comment:AMPH/METH screening cut off = 1000 ng/mL COCAINE METABOLITE Negative Negative 2024 5:09 PM EDT [facility] Comment:Cocaine screening cu t off value = 300 ng/mL ECSTASY Negative Negative 10/04/2024 5:09 PM EDT [facility] Comment:Ecstasy screening cu t off value = 500 ng/mL METHADONE Negative Negative 10/04/2024 5:09 PM EDT [facility] Comment:Methadone screening cut off value = 300 ng/mL. OPIATES Negative Negative 10/04/2024 5:09 PM EDT [facility] Comment: Opiates screening cut off value = 300 ng/mL This test is used for the detection of codeine, hydrocodone (>1000 ng/mL), morphine and hydromorphone (>900 ng/mL) in urine. OXYCODONE Negative Negative 10/04/2024 5:09 PM EDT [facility] Comment: Oxycodone screening cut off value = 300 ng/mL This test is used for the detection of oxycodone and oxymorphone in urine. PHENCYCLIDINE Negative Negative 10/04/2024 5:09 PM EDT [facility] Comment:Phencyclidine screen ing cut off value = 25 ng/mL CANNABINOIDS Negative Negative 10/04/2024 5:09 PM EDT [facility] Comment:Cannabinoids/THC scr eening cut off value = 50 ng/mL Urine Barbiturates Negative Negative 2024 5:09 PM EDT [facility] Comment:Barbiturates screeni ng cut off value = 200 ng/mL BENZODIAZEPINES Negative Negative 5:09 PM EDT [facility] Comment:Benzodiazepines scre ening cut off value = 200 ng/mL Urine Urine specimen collection, clean catch / Unknown 10/04/2024 3:40 PM EDT 10/04/2024 4:23 PM EDT us Yvon Post MD URINE ORDERABLES Final Result [facility] [address] [place] [address], [place] [phone] * US MFM COMPREHENSIVE ANATOMIC SURVEY (10/04/2024 3:20 PM EDT) Anatomical Region Laterality Modality OB-BEVEL FACE STONER AND POLISHER Ultrasound 10/04/2024 2:51 PM EDT Narrative 10/04/2024 5:21 PM EDT NAME: BASILIO ALARCON : 1995 SEX: F Accession Number: [id number] ORDERING PHYSICIAN: YVON POST REFERRING PHYSICIAN: LUCÍA LEDESMA Coding ----- --------- Procedures 63339: Ultrasound, uterus, real time with image documentation, [...] EFW (oz) 8 oz EFW by: Hadlock ([id number]) Extended Tibia 47.6 mm 28w 6d 7% Isac Veneer Taping Machine Offbearer 3.0 mm CM 5.2 mm 7% Nicolaides [...] Heart / Thorax 4-chamber view. 3-vessel view. 8-sobgvq-vvzpaqk view. Interventricular septum. Great vessels. Diaphragm. Abdomen [...] ALARCON : 1995 SEX: F Accession Number: [id number] ORDERING PHYSICIAN: YVON POST REFERRING PHYSICIAN: LUCÍA LEDESMA Coding ----- --------- Procedures 74129: Ultrasound, uterus, real time with imagedocumentation, and [...] EFW (oz) 8 oz EFW by: Hadlock ([id number]) Extended Tibia 47.6 mm 28w 6d 7% Isac Veneer Taping Machine Offbearer 3.0 mm CM 5.2 mm 7% Nicolaides [...] Heart / Thorax 4-chamber view. 3-vessel view. 3-xcnqpx-crzyudk view.Interventricular septum. Great vessels. Diaphragm. Abdomen Kidneys. [...] byprimary OB provider unless otherwise specified by [facility]. Results forwarded to ordering provider so they can follow up with thepatient as necessary. us Yvon Post MD [facility] [place] ORDERABLES Final Resul t * Syphilis Total (Unknown Syphilis Status) (10/04/2024 1:02 PM EDT) SYPHILIS TOTAL <0.2 <=0.8 AI 10/04/2024 3:16 PM EDT [facility] Blood Venous blood / Unknown Venipuncture / Unknown 10/04/2024 1:02 PM EDT 10/04/2024 1:13 PM EDT Narrative [facility] - 10/04/2024 3:16 PM EDT NON REACTIVE No serologic evidence of infection to Treponema pallidum. Repeat testing may be considered in patients with suspected acute or primary syphilis in 2 to 4 weeks. Kay Levi MD LAB BLOOD ORDERABLES Final Res ult [facility] [address] [place] [address], * Type and screen(includes indirect reanna) (10/04/2024 1:02 PM EDT) Only the most recent of2 resultswithin the time period is included. Pathologist [facility] ABO A 10/04/2024 2:03 PM EDT [facility] RH Positive 10/04/2024 2:03 PM EDT [facility] Antibody Screen Negative 10/04/2024 2:03 PM EDT [facility] Blood Venous blood / Unknown Venipuncture / Unknown 10/04/2024 1:02 PM EDT 10/04/2024 1:19 PM EDT Kay Levi MD BLOOD BANK TEST ORDERABLES Paco walter Result - Final [facility] [address] [place] [address], [facility] [address] [place] [address], * (ABNORMAL) CBC and differential (10/03/2024) Neutrophils Absolute (A) 11.90(A) 1.30 - 8.30 10*3/uL MANUALLY TRANSCRIBED RESULTS Auto WBC 15.2(A) 3.3 - 10.0 10*3/mL MANUALLY TRANSCRIBED RESULTS Blood us Lucía R Angel DO LAB BLOOD ORDERABLES Final Resu lt MANUALLY TRANSCRIBED RESULTS * Liver panel (10/03/2024) AST 13 13 - 35 U/L MANUALLY TRANSCRIBED RESULTS Blood Venous blood / Unknown Lucía R Angel DO LAB BLOOD ORDERABLES Final Resu lt MANUALLY TRANSCRIBED RESULTS * Basic Metabolic Panel (10/03/2024) BUN 10 4 - 21 mg/dL MANUALLY TRANSCRIBED RESULTS Creatinine 0.8 0.5 - 1.1 mg/dL MANUALLY TRANSCRIBED RESULTS Blood Venous blood / Unknown Lucía R Angel DO LAB BLOOD ORDERABLES Final Resu lt Performing Organization Address [facility]/ZIP Co de Phone Number MANUALLY TRANSCRIBED RESULTS * Chlamydia/GC by PCR Young Swab (08/20/2024) Chlamydia Dna(Pcr) negative Gonorrhoeae Dna(Pcr) negative Swab Lucía R Angel DO MICROBIOLOGY - GENERAL ORDERABL ES Final Result from Last 3 Months Insurance [employer] [place] Advance Directives * Full Code (Latest Code Status on File) Date Activated Date Inactivated Comments 10/04/2024 12:52 PM 10/05/2024 5:08 PM
--- OUTSIDE RECORDS SUMMARY | 2024-10-20 12:35 | XMS_ITS | Encounter Summary ---
Author Organization [facility] Address [address] [place] [address] Care Team Providers Care Payroll Accounting Specialist Name Role Phone Unavailable Primary Care Provider Unavailabl e Encounter Details Date Type Department Care Team (Late st Contact Info) Description 10/17/2024 Clinisync Result Encounter [facility] External Department Unsolicited Lucía Ortiz DO [address] [place], [place] [address] Social History Tobacco Use Types Packs/Day Years [...] PM EDT Office Visit [facility] [address] [id number] Gwen Mccormick PA [address] [place] [address] documented as of this encounter Procedures Procedure Name Priority Date/Time Associated Diagnosis Comments US OB BPP W NON-STRESS 10/17/2024 11:04 AM EDT documented in this encounter Results * US OB BPP W NON-STRESS (10/17/2024 11:04 AM EDT) Anatomical Region Laterality Modality Other 10/17/2024 11:0 4 AM EDT Narrative 10/17/2024 11:07 [place] [address] Ultrasound Report Signed Patient: DORIAN RICHMOND MR#: [id number] : 1995 Acct:[id number] Age/Sex: 29 / F ADM Date: 10/17/24 Loc: [facility] 250-[address]: Lucía Ortiz D.O. Ordering Physician: Lucía Ortiz D.O. Date of Service: 10/17/24 Procedure(s): US OB BPP w non-stress Accession Number(s): [id number] cc: Lucía Ortiz D.O.; Physician,Non-Staff M.DNathalia [address] [place] [address] Patient Name: DORIAN RICHMOND MRN: [id number] date: 1995 Sex: F Assigned Patient Location: [facility] Current Patient Location: [facility] Accession/Order Number: [id number] Exam Date: 10/17/2024 10:30 Report Date: 10/17/2024 11:04 At the request of: LUCÍA ORTIZ DO [...] Kee M.D. 10/17/2024 11:04 AM Dictation Location: [place] [address] Electronically authenticated by: [id number] Y Date: 10/17/2024 11:04 Dictated By: Jane Kee M.D. Signed By: 10/17/24 1107 DD/ 1104 TD/TT: Fitness Center Attendant: Procedure Note Radiology, Radiologist, - 10/17/2024 [place] [address] Ultrasound Report Signed Patient: DORIAN RICHMOND JMR#: [id number] : 1995Acct:[id number] Age/Sex: 29 / FADM Date: 10/17/24 Loc: [facility] 250-[address]: Lucía Ortiz D.O. Ordering Physician: Lucía Ortiz D.O. Date of Service: 10/17/24 Procedure(s): US OB BPP w non-stress Accession Number(s): [id number] cc: Lucía Ortiz D.O.; Physician,Non-Staff [place] [address] [place] [id number] Patient Name: DORIAN RICHMOND MRN: [id number] date: 1995 Sex: F Assigned Patient Location: [facility] Current Patient Location: [facility] Accession/Order Number: [id number] Exam Date: 10/17/2024 10:30 Report Date: 10/17/2024 11:04 At the request of: LUCÍA ORTIZ DO Procedure: US OB BPP w non-stress BIOPHYSICAL PROFILE: CLINICAL INFORMATION: Gestational diabetes mellitus COMPARISON: 10/10/2024 There is a single live intrauterine gestation in cephalic presentation.The reported gestational age is 32 weeks 6 days. The heart ratemeasures 136 beats per minute. FINDINGS: TONE: 1 or more episodes of activity extension and flexion of extremity or opening and closing of the hand [Y] 2/2 GROSS BODY MOVEMENTS: 3 or more discrete body or limb movements [Y] 2/2 BREATHING MOVEMENTS: 1 or more episodes of breathing lastingat least 30 seconds [Y] 2/2 SCOOTER: A single deepest vertical pocket of amniotic fluid greater than 2 cm [Y] 2/2 SCOOTER: 10.6 cm . This is in low-normal range. Total score: 8/8 US/US OB BPP w non-stress IMPRESSION: NORMAL BIOPHYSICAL PROFILE Impression dictated by: Jane Kee M.D. 10/17/2024 11:04 AM Dictation Location: [place] [address] Electronically authenticated by: [id number] Y Date: 1:04 Dictated By: Jane Kee M.D. Signed By:10/17/24 1107 DD/ 1104 TD/TT: Fitness Center Attendant: us Lucía Angel DO [facility] Final Result documented in this encounter Visit Diagnoses Not on filedocumented in this encounter
--- OUTSIDE RECORDS SUMMARY | 2024-10-20 12:35 | XMS_ITS | Encounter Summary ---
Author Organization [facility] Address [address] [place] [address] Care Team Providers Care Stakeholder Manager Name Role Phone Unavailable Primary Care Provider Unavailabl e Encounter Details Date Type Department Care Team (Late Contact Info) Description 05/31/2024 Abstract [facility] [address] [place] [address] Zack Ortiz DO [address], [facility] Social History Tobacco Use Types [...] Description 10/24/2024 1:20 PM EDT Office Visit GREG MANZANO [address] [place] [address] Gwen Mccormick PA [address] [place], [place] [address] documented as of this encounter Visit Diagnoses Not on filedocumented in this encounter
--- OUTSIDE RECORDS SUMMARY | 2024-10-20 12:35 | XMS_ITS | Encounter Summary ---
Author Organization [facility] Address [id number] [address] [place] [address] Care Team Providers Care Activity Director Name Role Phone Unavailable Primary Care Provider Unavailabl e Encounter Details Date Type Department Care Team (Late st Contact Info) Description 10/18/2024 Documentation Maternal- Medicine at [facility] [address] [place] [phone] Krista Cruz RN [address] [address] Social History Tobacco Use Types Packs/Day Years [...] on file documented as of this encounter Progress Notes * Krista Cruz RN - 10/18/2024 2:29 PM EDTSummary: MFM Missed Diabetes GDM Education Class Missed/no show (for) Diabetes Education GDM class this afternoon. documented in this encounter Plan of Treatment Not on file documented as of this encounter Visit Diagnoses Not on filedocumented in this encounter
--- OUTSIDE RECORDS SUMMARY | 2024-10-20 12:35 | XMS_ITS | Encounter Summary ---
Author Organization [facility] Address [address] [place] [address] Care Team Providers Care Olive Packer Name Role Phone Unavailable Primary Care Provider Unavailabl e Encounter Details Date Type Department Care Team (Late Contact Info) Description 10/10/2024 Clinisync Result Encounter [facility] External Department Unsolicited Lucía Ortiz DO [address] Alfredo Durán, [id number] Social History Tobacco Use Types Packs/Day Years [...] Office Visit [facility] [address] [place] [id number] Gwen Mccormick PA [address] [place] [address] documented as of this encounter Procedures Procedure Name Priority Date/Time Associated Diagnosis Comments US OB BPP W NON-STRESS 10/10/2024 2:29 PM EDT documented in this encounter Results * US OB BPP W NON-STRESS (10/10/2024 2:29 PM EDT) Anatomical Region Laterality Modality Other 10/10/2024 2:29 PM EDT Narrative 10/10/2024 2:32 [place] [address] Ultrasound Report Signed Patient: DORIAN RICHMOND MR#: [id number] : 1995 Acct:[id number] Age/Sex: 29 / F ADM Date: 10/10/24 Loc: [facility] 250-[address]: Lucía Ortiz D.O. Ordering Physician: Lucía Ortiz D.O. Date of Service: 10/10/24 Procedure(s): US OB BPP w non-stress Accession Number(s): [id number] cc: Lucía Ortiz D.O.; Physician,Non-Staff [facility] [place] [address] Patient Name: DORIAN RICHMOND MRN: [id number] date: 1995 Sex: F Assigned Patient Location: [facility] Current Patient Location: [facility] Accession/Order Number: [id number] Exam Date: 10/10/2024 14:02 Report Date: 10/10/2024 14:29 At the request of: LUCÍA ORTIZ DO Procedure: US OB BPP w non-stress Biophysical profile. Reason for exam: Gestational diabetes COMPARISON: 10/03/2024 TECHNIQUE: Transabdominal imaging of the gravid uterus was obtained. FINDINGS: The market intelligence consultant reports a BPP of 8 out of 8. SCOOTER is normal at 11.7 cm. heart rate 134 bpm. US/US OB BPP w non-stress IMPRESSION: BPP 8 out of 8. Impression dictated by: Kahlil Voss Jr., D.O. 10/10/2024 2:29 PM Dictation Location: RADIO-PC-23 Electronically authenticated by: [id number] Y Date: 10/10/2024 14:29 Dictated By: Kahlil Voss M.D. Signed By: 10/10/24 1432 DD/ 1429 TD/TT: Plumbing Manager: Procedure Note Radiology, Radiologist, - 10/10/2024 [place] [address] Ultrasound Report Signed Patient: DORIAN RICHMOND JMR#: [id number] : 1995Acct:[id number] Age/Sex: 29 / FADM Date: 10/10/24 Loc: [facility] [address]: Lucía Ortiz D.O. Ordering Physician: Lucía Ortiz D.O. Date of Service: 10/10/24 Procedure(s): US OB BPP w non-stress Accession Number(s): [id number] cc: Lucía Ortiz D.O.; Physician,Non-Staff [place] [facility] [place] [address] Patient Name: DORIAN RICHMOND MRN: [id number] date: 1995 Sex: F Assigned Patient Location: [facility] Current Patient Location: [facility] Accession/Order Number: [id number] Exam Date: 10/10/2024 14:02 Report Date: 10/10/2024 14:29 At the request of: LUCÍA ORTIZ DO Procedure: US OB BPP w non-stress Biophysical profile. Reason for exam: Gestational diabetes COMPARISON: 10/03/2024 TECHNIQUE: Transabdominal imaging of the gravid uterus was obtained. FINDINGS: The market intelligence consultant reports a BPP of 8 out of 8. SCOOTER is normal at11.7 cm. heart rate 134 bpm. US/US OB BPP w non-stress IMPRESSION: BPP 8 out of 8. Impression dictated by: Kahlil oVss Jr., D.O. 10/10/2024 2:29 PM Dictation Location: [place] [address] Electronically authenticated by: [id number] Y Date: 4:29 Dictated By: Kahlil Voss M.D. Signed By:10/10/24 1432 DD/ 1429 TD/TT: Plumbing Manager: us Lucía Ortiz DO [facility] Final Result documented in this encounter Visit Diagnoses Not on filedocumented in this encounter
--- OUTSIDE RECORDS SUMMARY | 2024-10-20 12:35 | XMS_ITS | Clinical Summary ---
Author Organization [facility] Healthcare Address [address] [place] [address] Care Team Providers Care Publication Designer Name Role Phone Unavailable Primary Care Provider Unavailabl e Allergies No known active allergies Medications ALBUTEROL IN Active [facility] Allergy Relief-D12 5-120 MG 12 hr tablet Take 1 tablet by mouth every 12 (twelve) hours 07/08/19 24 Active ipratropium-al buterol (Duo-Neb) 0.5-2.5 mg/3 mL nebulizer solution INHALE 1 VIAL VIA NEBULIZER 4 TIMES A DAY 04/28/19 25 Active Blood Glucose Monitoring Suppl (D-Care Glucometer) w/Device kitIndications :Gestational diabetes mellitus (GDM), antepartum, gestational diabetes method of control unspecified ([facility]),Elev ated glucose tolerance test 1 kit Daily Use four times daily to check FSBS. In the morning prior to breakfast & 1 hour after each meal for a total of 4times daily. 1 kit 06/19/19 25 026 Active labetalol (Normodyne) 300 MG tabletIndicati ons:Hypertensi on affecting in third trimester ([facility]) Take 1 tablet (300 mg) by mouth in the morning and 1 tablet (300 mg) in the evening and 1 tablet (300 mg) before bedtime. 90 tablet 10/09/19 25 026 Active Lancets Ultra Thin miscIndication s:Gestational diabetes mellitus (GDM), antepartum, gestational diabetes method of control unspecified ([facility]),Elev ated glucose tolerance test 1 each by In Vitro route Daily Use to check FSBS four times daily 150 each 3 10/18/19 25 025 Active Alcohol Swabs (Alcohol Prep Pad) 70 % padsIndication s:Gestational diabetes mellitus (GDM), antepartum, gestational diabetes method of control unspecified ([facility]),Elev ated glucose tolerance test Apply 1 Pad topically Daily Use four times daily to check FSBS. 150 each 3 10/18/19 25 Active Glucose Blood (Blood Glucose Test) stripIndicatio ns:Gestational diabetes mellitus (GDM), antepartum, gestational diabetes method of control unspecified ([facility]),Elev ated glucose tolerance test 1 strip by In Vitro route Daily Use in the morning prior to breakfast, 1 hour after each meal for a total of 4times daily. 150 strip 3 10/18/19 25 025 Active Blood Glucose Monitoring Suppl (D-Care Glucometer) w/Device kitIndications :Gestational diabetes mellitus (GDM), antepartum, gestational diabetes method of control unspecified ([facility]),Elev ated glucose tolerance test 1 kit Daily Use four times daily to check FSBS. In the morning prior to breakfast & 1 hour after each meal for a total of 4times daily. 1 kit 10/18/19 25 026 Active SUMAtriptan (Imitrex) 25 MG tablet Take 25 mg by mouth 07/06/19 24 025 Discontinued meclizine (Antivert) 25 MG tablet Take 25 mg by mouth 07/08/19 24 025 Discontinued Alcohol Swabs (Alcohol Prep Pad) 70 % padsIndication s:Gestational diabetes mellitus (GDM), antepartum, gestational diabetes method of control unspecified ([facility]),Elev ated glucose tolerance test Apply 1 Pad topically Daily Use four times daily to check FSBS. 150 each 3 06/19/19 25 025 Discontinued insulin NPH-insulin regular (NovoLIN) (70-30) 100 UNIT/ML injectionIndic ations:Gestati onal Diabetes Inject 5 Units under the skin in the morning and 5 Units in the evening. Inject before meals. 3 mL 10/04/19 25 025 Discontinued(En tered in error) insulin NPH, Isophane, (HumuLIN N,NovoLIN N) 100 UNIT/ML injectionIndic ations:Gestati onal Diabetes Inject 5 Units under the skin in the morning and 5 Units in the evening. Inject before meals. 3 mL 10/04/19 025 Discontinued(En tered in error) insulin syringe 29G X 1/2 0.5 mL miscIndication s:Gestational diabetes mellitus (GDM), antepartum, gestational diabetes method of control unspecified ([facility]) Use as instructed 100 each 4 10/04/19 025 Discontinued(En tered in error) Encounters Date Type Department Care Team Description 10/19/2024 [place] [address] Snehal Lamb MA 10/17/2024 1:30 PM ED[place] [address] Lucía Ortiz, 32 weeks gestation of ([facility]); Third trimester ([facility]); Hypertension affecting in third trimester ([facility]); Diet controlled gestational diabetes mellitus (GDM), antepartum ([facility]); Gestational diabetes mellitus (GDM), antepartum, gestational diabetes method of control unspecified ([facility]); Elevated glucose tolerance test; induced hypertension, antepartum ([facility]) 10/17/2024 Clinisync Result Encounter [facility] External Department Unsolicited Lucía Ortiz, 10/10/2024 Clinisync Result Encounter [facility] External Department Unsolicited Lucía Ortiz, 10/08/2024 2:20 PM [place] [address] Lucía Ortiz DO Third trimester ([facility]); 31 weeks gestation of ([facility]); Hypertension affecting in third trimester ([facility]) 10/08/2024 Bamboo [place] [address] Lucía Ortiz DO 10/04/2024 Clinisync Result Encounter [facility] External Department Unsolicited Lucía Ortiz, DO 10/03/2024 2:20 PM EDT Routine [facility] [address] [place] [address] Lucía Ortiz, DO Third trimester ([facility]); Diet controlled gestational diabetes mellitus (GDM), antepartum ([facility]); Gestational diabetes mellitus (GDM), antepartum, gestational diabetes method of control unspecified ([facility]) 10/03/2024 2:00 PM EDT Ancillary Procedure [facility] [address] [place] [address] Size of fetus inconsistent with dates in second trimester ([facility]) 10/03/2024 Clinisync Result Encounter [facility] External Department Unsolicited Lucía Ortiz, DO 10/03/2024 Clinisync Result Encounter [facility] External Department Unsolicited Lucía Ortiz, DO 10/03/2024 Telephone [facility] [address] [place] [address] Jane Lang LPN 09/17/2024 1:30 PM EDT Routine [facility] [address] [facility] [place] [place] [address] Gwen Mccormick PA Size of fetus inconsistent with dates in second trimester ([facility]) (Primary Dx); 28 weeks gestation of ([facility]) 09/17/2024 Bamboo flowsheet [facility] [address] [facility] [place] [place] [address] Gwen Mccormick PA 09/11/2024 Telephone [facility] [address] [facility] [place] [place] [address] Lucía Ortiz, DO 08/29/2024 1:00 PM EDT Ancillary Procedure [facility] Luis Armando [facility] [address] [place] [address] Encounter for follow-up ultrasound of anatomy ([facility]) 08/28/2024 Orders [place] [phone] Berta Yoder MA 08/20/2024 2:10 PM EDT [place] [address] Lucía Ortiz, DO Well woman exam with routine gynecological exam; Second trimester ([facility]); 24 weeks gestation of ([facility]); Exposure to STD; Need for maternal serum alpha-protein (MSAFP) screening ([facility]); Encounter for follow-up ultrasound of anatomy ([facility]) 08/20/2024 Clinisync Result Encounter [facility] External Department Unsolicited Lucía Ortiz, 08/20/2024 External Result Encounter [facility] External Department Unsolicited Lucía Ortiz, 08/20/2024 Bamboo flowsheet [facility] [place] [address] Lucía Ortiz, 07/23/2024 2:30 PM EDT Routine [place] [address] Gwen Mccormick PA Second trimester ([facility]); 20 weeks gestation of ([facility]); Need for maternal serum alpha-protein (MSAFP) screening ([facility]) 07/23/2024 1:30 PM EDT Ancillary Procedure [facility] [place] [address] Screening, , for anatomic survey ([facility]) from Last 3 Months Social History [...] 6.4 oz) 10/17/2024 1:30 PM EDT Height 162.6 cm (5' 4 ) 10/28/2021 12:00 PM EDT Body Mass Index 49.33 10/28/2021 12:00 PM EDT Plan of Treatment Upcoming Encounters Date Type Department Care Team (Late st Contact Info) Description 10/24/2024 1:20 PM EDT Office Visit [facility] [address] [place] [address] Gwen Mccormick PA [address] [place] [address] Health Maintenance Due Date Last Done Comments Influenza Vaccine (#1) 2024 11/26/2011, 2003, 03/01/2003 Cervical Cancer Screening 08/20/2029 HPV/Cotest 08/20/2029 Pap Smear 08/20/2029 08/20/2024 Procedures Procedure Name Priority Date/Time Associated Diagnosis Comments POCT URINALYSIS DIPSTICK Routine 10/17/2024 1:37 PM EDT 32 weeks gestation of ([facility]) Third trimester ([facility]) US OB BPP W NON-STRESS 10/17/2024 11:04 AM EDT US OB BPP W NON-STRESS 10/10/2024 2:29 PM EDT POCT URINALYSIS DIPSTICK Routine 10/08/2024 3:15 PM EDT Third trimester ([facility]) 31 weeks gestation of ([facility]) MHPT FIBRINOGEN Routine 10/04/2024 8:46 AM EDT [...] Routine 10/03/2024 2:28 PM EDT Third trimester ([facility]) US OB FOLLOW UP TRANSABDOMINAL APPROACH Routine 10/03/2024 2:16 PM EDT Size of fetus inconsistent with dates in second trimester ([facility]) US OB LIMITED 1+ FETUSES Routine 08/29/2024 1:23 PM EDT Encounter for follow-up ultrasound of anatomy ([facility]) RECURRENT VAGINITIS (HTRX) Routine 08/20/2024 3:53 PM EDT POCT URINALYSIS DIPSTICK Routine 08/20/2024 2:57 PM EDT Second trimester ([facility]) IGP,APTIMA HPV,AGE GDLN Routine 08/20/2024 2:32 PM EDT PAP SMEAR Routine 08/20/2024 12:00 AM EDT POCT URINALYSIS DIPSTICK Routine 07/24/2024 9:46 AM EDT Second trimester ([facility]) US OB 14+ WEEKS ANATOMY SCAN Routine 07/23/2024 2:27 PM EDT Screening, , for anatomic survey ([facility]) from Last 3 Months Results * (ABNORMAL) POCT urinalysis dipstick manually resulted (10/17/2024 1:37 PM EDT) Only the most recent of5 resultswithin the time period is included. Color, [...] - Positive Urine 10/17/2024 1:37 PM EDT us Lucía Ortiz DO POINT OF CARE TEST ENTER/EDIT OR DERABLES Final Result * US OB BPP W NON-STRESS (10/17/2024 11:04 AM EDT) Only the most recent of3 resultswithin the time period is included. Anatomical Region Laterality Modality Other 10/17/2024 11:0 4 AM EDT Narrative 10/17/2024 11:07 AM EDT [address] [address] Ultrasound Report Signed Patient: DORIAN TOVAR MR#: [id number] : 1995 Acct:[id number] Age/Sex: 29 / F ADM Date: 10/17/24 Loc: [facility] [address]: Lucía Ortiz D.O. Ordering Physician: Lucía Ortiz D.O. Date of Service: 10/17/24 Procedure(s): US OB BPP w non-stress Accession Number(s): [id number] cc: Lucía Ortiz D.O.; Physician,Non-Staff M.DNathalia [address] [address] Patient Name: DORIAN TOVAR MRN: [id number] date: 1995 Sex: F Assigned Patient Location: [facility] Current Patient Location: [facility] Accession/Order Number: [id number] Exam Date: 10/17/2024 10:30 Report Date: 10/17/2024 [...] Kee M.D. 10/17/2024 11:04 AM Dictation Location: [place] [address] Electronically authenticated by: [id number] Y Date: 10/17/2024 11:04 Dictated By: Jane Kee M.D. Signed By: 10/17/24 1107 DD/ 1104 TD/TT: Meter Repairer: Procedure Note Radiology, Radiologist, MD - 10/17/2024 [place] [address] Ultrasound Report Signed Patient: DORIAN TOVAR JMR#: [id number] : 1995Acct:[id number] Age/Sex: 29 / FADM Date: 10/17/24 Loc: [facility] [address]: Lucía Ortiz D.O. Ordering Physician: Lucía Ortiz D.O. Date of Service: 10/17/24 Procedure(s): US OB BPP w non-stress Accession Number(s): [id number] cc: Lucía Ortiz D.O.; Physician,Non-Staff [place] [address] Patient Name: DORIAN TOVAR MRN: [id number] date: 1995 Sex: F Assigned Patient Location: [facility] Current Patient Location: [facility] Accession/Order Number: [id number] Exam Date: 10/17/2024 10:30 Report Date: 10/17/2024 [...] Kee M.D. 10/17/2024 11:04 AM Dictation Location: [place] [address] Electronically authenticated by: [id number] Y Date: 1:04 Dictated By: Jane Kee M.D. Signed By:10/17/24 1107 DD/ 1104 TD/TT: Meter Repairer: Lucía Ortiz DO [facility] IMAG[facility] Final Result * [facility] CREATININE (10/04/2024 8:46 AM EDT) Only the most recent of2 resultswithin the time period is included. CREATININE 0.75 0.55 - 1.02 mg/dL TBH TBH EGFR-AF NORWEGIAN >60 >=60 mL/min/1.7 3m 2 TBH TBH EGFR-NON AF NORWEGIAN >60 >=60 mL/min/1.7 3m 2 TBH 10/04/2024 8:46 AM EDT 10/04/2024 8:50 AM EDT Narrative CLINISYNC - 10/04/2024 9:33 AM EDT Kolorifico DO CLINISYNC Final Result Performing Organization Address City/[facility]/ZIP Co de Phone Number [facility] * SRMCOH PROTHROMBIN TIME INR [...] EDT Lucía Angel DO CLINISYNC Final Result [facility] * (ABNORMAL) MHPT FIBRINOGEN (10/04/2024 8:46 AM EDT) Only the most recent of2 resultswithin the time period is included. FIBRINOGEN 575(H) 200 - 400 mg/dL TBH 10/04/2024 8:46 AM EDT 10/04/2024 8:50 AM EDT Narrative CLINISYNC - 10/04/2024 9:53 AM EDT us Lucía Angel DO CLINISYNC Final Result Performing Organization Address City/[facility]/ZIP Co de Phone Number [facility]NC TB * (ABNORMAL) [facility] AST (10/04/2024 8:46 AM EDT) Only the most recent of2 resultswithin the time period is included. ASPARTATE AMINO TRANSFERASE 14(L) 15 - 37 U/L TBH 10/04/2024 8:46 AM EDT 10/04/2024 8:50 AM EDT Narrative CLINISYNC - 10/04/2024 9:33 AM EDT us Lucía Angel DO CLINISYNC Final Result Performing Organization Address [facility] de Phone Number CLIN[facility]YNC TB * [facility] APTT (10/04/2024 8:46 AM EDT) Only the most recent of2 resultswithin the time period is included. PARTIAL THROMBOPLASTIN TIME 26.8 22.3 - 36.2 sec TBH 10/04/2024 8:46 AM EDT 10/04/2024 8:50 AM EDT Narrative CLINISYNC - 10/04/2024 9:53 AM EDT us Lucía Angel DO CLINISYNC Final Result Performing Organization Address [facility] Co de Phone Number CL[facility]YNC TB * [facility] ALT (10/04/2024 8:46 AM EDT) Only the most recent of2 resultswithin the time period is included. ALANINE AMINOTRANSFERASE 14 14 - 59 U/L TBH 10/04/2024 8:46 AM EDT 10/04/2024 8:50 AM EDT Narrative CLINISYNC - 10/04/2024 9:33 AM EDT us Lucía Angel DO CLINISYNC Final Result Performing Organization Address City/[facility] Co de Phone Number [facility]NC TBH * ALL URIC ACID (10/04/2024 8:46 AM EDT) Only the most recent of2 resultswithin the time period is included. Pathologist [facility] URIC ACID 5.4 2.6 - 6.0 mg/dL TB 10/04/2024 8:46 AM EDT 10/04/2024 8:50 AM EDT Narrative CLINISYNC - 10/04/2024 9:33 AM EDT Lucía Angel DO CLINISYNC Final Result [facility] * ALL LDH (10/04/2024 8:46 AM EDT) Pathologist [facility] LACTATE DEHYDROGENASE 153 81 - 234 U/L TB 10/04/2024 8:46 AM EDT 10/04/2024 8:50 AM EDT Narrative CLINISYNC - 10/04/2024 9:35 AM EDT [facility] Final Result Performing Organization Address City/[facility] Co de Phone Number [facility] * (ABNORMAL) ALL CBC WITH AUTO DIFF (10/04/2024 8:46 AM EDT) Only the most recent of2 resultswithin the time period is included. Pathologist [facility] TB WBC 12.5(H) 4.0 - 11.0 10 3/uL [...] DO CLINISYNC Final Result Performing Organization Address City/[facility]/ZIP Co de Phone Number [facility]NC TB * (ABNORMAL) ALL BUN (10/04/2024 8:46 AM EDT) Only the most recent of2 resultswithin the time period is included. Pathologist [facility] BLOOD UREA NITROGEN 6.0(L) 7.0 - 18.0 mg/dL TBH 10/04/2024 8:46 AM EDT 10/04/2024 8:50 AM EDT Narrative CLINISYNC - 10/04/2024 9:33 AM EDT us Lucía Angel DO CLINISYNC Final Result [facility]NC TB * (ABNORMAL) TBH URINE T PROTEIN CREAT RATIO (10/03/2024 5:10 PM EDT) TOTAL PROTEIN URINE RANDOM 28.5(H) <=11.9 mg/dL TBH CREATININE URINE RANDOM 60.71 20.00 - 300.00 mg/dL TBH PROTEIN CREATININE RATIO URINE 0.47 TBH 10/03/2024 5:10 PM EDT 10/03/2024 5:33 PM EDT Narrative CLINISYNC - 10/03/2024 5:50 PM EDT us Lucía Angel DO CLINISYNC Final Result [facility] * US OB follow up transabdominal approach [...] II, MD, PHD at 04-Oct-2024 08:06:58 [address] [facility] Procedure Note Una Darnell MD - [...] signed by UNA DARNELL II, MD, PHD [id number] 08:06:[address] [facility] us Gwen SAAVEDRA IMSarah OB US PROCEDURES Final Resul t * [...] SIGNED BY: Kahlil Solis MD us Lucía Angel DO IM OB US PROCEDURES Final Resul t * RECURRENT VAGINITIS (HTRX) (08/20/2024 3:53 PM EDT) [facility] ATOPOBIUM VAGINAE 0 19.961 - 24.689 ppm 08/21/2024 6:26 AM EDT [facility] ATOPOBIUM VAGINAE Not Detected 19.961 - 24.689 ppm 08/21/2024 6:26 AM EDT [facility] BVAB 2,3 (BACTERIAL VAGINOSIS ASSOCIATED BACTERIA 2, 3); MOBILUNCUS SPP 0 19.961 - 24.689 ppm 08/21/2024 6:26 AM EDT [facility] BVAB 2,3 (BACTERIAL VAGINOSIS ASSOCIATED BACTERIA 2, 3); MOBILUNCUS SPP Not Detected 19.961 - 24.689 ppm 08/21/2024 6:26 AM EDT [facility] FORREST ALBICANS, PARAPSILOSIS, TROPICALIS 0 19.961 - 30.770 ppm 08/21/2024 6:26 AM EDT [facility] FORERST ALBICANS, PARAPSILOSIS, TROPICALIS Not Detected 19.961 - 30.770 ppm 08/21/2024 6:26 AM EDT [facility] FORREST GLABRATA 0 23.000 - 32.138 ppm 08/21/2024 6:26 AM EDT [facility] FORREST GLABRATA Not Detected 23.000 - 32.138 ppm 08/21/2024 6:26 AM EDT [facility] FORREST KRUSEI 0 23.000 - 32.271 ppm 08/21/2024 6:26 AM EDT [facility] FORREST KRUSEI Not Detected 23.000 - 32.271 ppm 08/21/2024 6:26 AM EDT [facility] CHLAMYDIA TRACHOMATIS 0 23.000 - 31.467 ppm 08/21/2024 6:26 AM EDT [facility] CHLAMYDIA TRACHOMATIS Not Detected 23.000 - 31.467 ppm 08/21/2024 6:26 AM EDT [facility] GARDNERELLA VAGINALIS 0 19.961 - 24.689 ppm 08/21/2024 6:26 AM EDT [facility] GARDNERELLA VAGINALIS Not Detected 19.961 - 24.689 ppm 08/21/2024 6:26 AM EDT [facility] MEGASPHAERA (TYPES 1, 2) 0 19.961 - 24.689 ppm 08/21/2024 6:26 AM EDT [facility] MEGASPHAERA (TYPES 1, 2) Not Detected 19.961 - 24.689 ppm 08/21/2024 6:26 AM EDT [facility] NEISSERIA GONORRHOEAE 0 23.000 - 32.117 ppm 08/21/2024 6:26 AM EDT [facility] NEISSERIA GONORRHOEAE Not Detected 23.000 - 32.117 ppm 08/21/2024 6:26 AM EDT [facility] TRICHOMONAS VAGINALIS 0 23.000 - 32.119 ppm 08/21/2024 6:26 AM EDT [facility] TRICHOMONAS VAGINALIS Not Detected 23.000 - 32.119 ppm 08/21/2024 6:26 AM EDT [facility] MYCOPLASMA GENITALIUM 0 19.961 - 24.689 ppm 08/21/2024 6:26 AM EDT [facility] MYCOPLASMA GENITALIUM Not Detected 19.961 - 24.689 ppm 08/21/2024 6:26 AM EDT [facility] Tissue 08/20/2024 3:53 PM EDT 08/21/2024 1:25 AM EDT us Lucía Ortiz DO LAB BLOOD ORDERABLES Final Resul t [facility] [place] [address] * IGP,APTIMA HPV,AGE GDLN (08/20/2024 2:32 PM EDT) AGE GDLN ACOG TESTING Note . [facility] Comment: TESTS RESULT FLAG UNITS REF RANGE LAB Clinician Provided Cytology Information Source.............Cervix No. of containers..01 ThinPrep Vial Age Algo ACOG Haydee... 30-65 01 FLAG LEGEND: L-Low Normal,H-High Normal,LL-Alert Low,HH-Alert High <-Panic Low,>-Panic High,A-Abnormal,AA-Critical Abnormal Performed at: 01 [facility] [place] [address] Glory Schaffer MD, IGP, APTIMA HPV, RFX 16/18,45 Note . [facility] Comment: TESTS RESULT FLAG UNITS REF RANGE LAB DIAGNOSIS: 02 NEGATIVE FOR INTRAEPITHELIAL LESION OR MALIGNANCY. Specimen adequacy: 02 Satisfactory for evaluation. No endocervical component is identified. Performed by: 02 Tai Darling, Senior Cobol Developer ([facility]) . 02 Note: Note 02 The [...] High <-Panic Low,>-Panic High,A-Abnormal,AA-Critical Abnormal Performed at: [address] [place] [address], [place] [address] Glory Schaffer MD, HPV APTIMA Negative Negative [facility] Comment: This nucleic acid amplification test detects fourteen high- risk HPV types (16,18,31,33,35,39,45,51,52,56,58,59,66,68) without differentiation. Performed at: =[address] [id number] Pipe Turner: Glory Schaffer MD, Phone: [phone] Performed at: [address] [id number] Pipe Turner: Glory Schaffer MD, Phone: [phone] 08/20/2024 2:32 PM EDT 08/20/2024 9:44 PM EDT Narrative [facility] - 08/23/2024 3:08 PM EDT BRUSH-SPATULA CERVIX us Lucía Angel DO LAB BLOOD ORDERABLES Final Resul t [facility] * Pap Smear (08/20/2024 12:00 AM EDT) Swab Cervical swab / Unknown us Lucía Angel DO LAB CYTOLOGY ORDERABLES Final Re sult EXTERNAL LAB * US OB 14+ weeks [...] II, MD, PHD at 25-Jul-2024 08:22:22 AM [facility] Procedure Note Una Darnell MD - [...] UNA DARNELL II, MD, PHD 08:22:[address] [facility] us Rubina Conroy RESEARCH AND DEVELOPMENT MANAGER IMG OB US PROCEDURES Final Re sult from Last 3 Months Insurance [id number] [employer]
--- OUTSIDE RECORDS SUMMARY | 2024-10-20 12:35 | XMS_ITS | Encounter Summary ---
Author Organization [facility] Address [address] [place] [address] Care Team Providers Care Occ Therapist Name Role Phone Unavailable Primary Care Provider Unavailabl e Encounter Details Date Type Department Care Team (Late Contact Info) Description 05/31/2024 Abstract [facility] [address] [place] [address] Zack Ortiz DO [address] Alfredo Durán, [facility] Social History Tobacco Use Types Packs/Day [...] PM EDT Office Visit GREG MANZANO [address] [place] [address] Gwen Mccormick PA [address] [place], [place] [address] documented as of this encounter Visit Diagnoses Not on filedocumented in this encounter
--- OUTSIDE RECORDS SUMMARY | 2024-10-20 12:35 | XMS_ITS | Encounter Summary ---
Author Organization [facility] Address [address] [place] [address] Care Team Providers Care News Clerk Name Role Phone Unavailable Primary Care Provider Unavailabl e Encounter Details Date Type Department Care Team (Late Contact Info) Description 10/19/2024 Abstract [facility] MAN[facility]O [address] [place] [address] Snehal Lamb MA Social History Tobacco Use Types Packs/Day Years [...] PM EDT Office Visit GREG MANZANO [address] [place] [address] Gwen Mccormick PA [address] [place], [place] [id number] documented as of this encounter Visit Diagnoses Not on filedocumented in this encounter
--- OUTSIDE RECORDS SUMMARY | 2024-10-20 12:36 | XMS_ITS | CCD ---
Author Organization [facility] Care Team Providers Care Tobacco Hanger Name Role Phone DR RORO GARNER Attending Unavailable PASCUAL, DR ROOR Salazar Consulting Unavailable DR RORO GARNER Admitting [...] Unavailable Unavailable Virk DDS, Yixue Unavailable Unavailable Unavailable Primary Care Provider Unavailabl e ZACK ORTIZ Attending Unavailable MANASA CONROY Referring Unavailable GWEN MCCORMICK Attending Unavailable ZACK ORTIZ Attending Unavailable ZACK ORTIZ Referring Unavailable GWEN MCCORMICK Attending Unavailable GWEN MCCORMICK Referring Unavailable ZACK ORTIZ Attending Unavailable ZACK ORTIZ Attending Unavailable ZACK [...] q4hr for headache, 12 tab(s), Refill(s) 0, [facility]/pharmacy #[id number], 165, cm, 09/15/20 22:47:00 EDT, Height/Length Dosing, 114, kg, 09/15/20 22:47:00 EDT, Weight Dosing Start Date: 09/16/20 Status: Ordered [id number] 200 actuat albuterol 0.09 mg/actuat metered dose [...] day(s), # 28 cap(s), Refills(s) 0, Pharmacy: [facility]/pharmacy #[id number], 165, cm, 04/18/24 11:46:00 EST, Height/Length Dosing, 124.5, kg, 04/18/24 11:46:00 EST, Weight Dosing Start Date: 04/18/24 Stop Date: 04/25/24 Status: Ordered atogepant 60 MG Oral Tablet [Qulipta] (1 source) Start: 07-21-2023 take 1 tablet by mouth once daily Qulipta 60 mg oral tablet 60 mg = 1 tab(s), Oral, Daily, # 30 tab(s), Refills(s) 3, Pharmacy: [facility]/pharmacy #[id number], 165.1, cm, 07/08/23 12:52:00 EDT, Height/Length Dosing, 127, kg, 07/08/23 12:52:00 EDT, Weight Dosing Start Date: 07/21/23 Status: Ordered Blood Glucose Monitoring Suppl (D-Care Glucometer) w/Device kit (20 sources) Start: 10-17-2024 End: 10-17-2025 Blood Glucose Monitoring Suppl (D-Care Glucometer) w/Device kit Indications: Gestational diabetes mellitus (GDM), antepartum, gestational diabetes method of control unspecified ([facility]) , Elevated glucose tolerance test 1 kit Daily Use four times daily to check FSBS. In the morning prior to breakfast & 1 hour after each meal for a total of 4times daily. 1 kit 10/17/2024 10/17/2025 Active Start: 06-18-2024 End: 06-18-20[address] Monitoring [address] (D-Care Glucometer) w/Device kit Indications: Gestational diabetes mellitus (GDM), antepartum, gestational diabetes method of control unspecified ([facility]) , Elevated glucose tolerance test 1 kit [...] day(s), # 14 cap(s), Refills(s) 0, Pharmacy: [facility]/pharmacy #[id number], 165.1, cm, 11/10/21 12:16:00 EDT, Height/Length Dosing, 128, kg, 07/17/21 9:33:00 EDT, Weight Dosing Start Date: 11/10/21 Stop Date: 11/17/21 Status: Ordered ciprofloxacin 500 mg oral tablet (6 sources) Quinolone Antimicrobial Start: 02-17-2022 take 1 tablet by mouth twice daily Cipro 500 mg Tab 500 mg = 1 tab(s), Oral, BID, # 14 tab(s), Refills(s) 0, Pharmacy: [facility]/pharmacy #6173, 165.1, cm, 02/17/22 16:15:00 EST, [...] pain, # 12 caplet(s), Refills(s) 0, Pharmacy: [facility]/pharmacy #[id number], 165, cm, 12/15/20 1:59:00 EDT, [...] exceed 8 grams/day/single joint of upper extremities, [facility]/pharmacy #[id number], 165.1, cm, 01/11/23 16:14:00 EST, [...] cramping, # 12 cap(s), Refills(s) 0, Pharmacy: [facility]/pharmacy #[id number], 165, cm, 10/17/22 13:07:00 EDT, Height/Length Dosing, 123.3, kg, 10/17/22 13:07:00 EDT, Weight Dosing Start Date: 10/17/22 Status: Ordered Flonase 0.05 mg/inh nasal spray (14 sources) Start: 09-18-2020 take 1 spray(s) nasal route once daily Flonase 0.05 mg/inh nasal spray 1 spray(s), Nasal, Daily, 16 gram, Refill(s) 3, each nostril, [facility]/pharmacy #[id number], 165, cm, 09/18/20 9:51:00 EDT, Height/Length Dosing, 116, kg, 09/18/20 9:51:00 EDT, Weight Dosing Start Date: 09/18/20 Status: Ordered fluticasone propionate 0.05 mg/actuat metered dose nasal spray (3 sources) Corticosteroid Start: 09-18-2020 take 1 spray(s) nasal route once daily Flonase 0.05 mg/inh nasal spray 1 spray(s), Nasal, Daily, 16 gram, Refill(s) 3, each nostril, [facility]/pharmacy #[id number], 165, cm, 09/18/20 9:51:00 EDT, Height/Length Dosing, 116, kg, 09/18/20 9:51:00 EDT, Weight Dosing Start Date: 09/18/20 Status: Ordered ibuprofen 600 mg oral tablet (1 source) Nonsteroidal Anti-inflammatory Drug Start: 09-14-2021 take 600 mg by mouth every six hours Ibuprofen Active 600 MG PO Q6H September 14, 2021 12:00am isopropyl alcohol 0.7 ml/ml medicated pad (20 sources) Start: 06-18-2024 End: 10-17-2024 Alcohol Swabs (Alcohol Prep Pad) 70 % pads Indications: Gestational diabetes mellitus (GDM), antepartum, gestational diabetes method of control unspecified ([facility]) , Elevated glucose tolerance test Apply 1 Pad topically Daily Use four times daily to check FSBS. 150 each 3 10/17/2024 Active labetalol hydrochloride 300 mg oral tablet (8 sources) beta-Adrenergic Mariely Start: 10-08-2024 End: 10-08-2025 take 1 tablet by mouth in the morning, then take 1 tablet by mouth in the evening, then take 1 tablet by mouth at bedtime labetalol (Normodyne) 300 MG tablet Indications: Hypertension affecting in third trimester ([facility]) Take 1 tablet (300 mg) by mouth [...] for 10 day(s), 20 tab(s), Refill(s) 0, [facility]/pharmacy #[id number], 165.1, cm, 07/08/23 12:52:00 EDT, Height/Length Dosing, 127, kg, 07/08/23 12:52:00 EDT, Weight Dosing Start Date: 07/08/23 Stop Date: 07/18/23 Status: Ordered Start: 07-08-2023 take 1 tablet by lencho th every twelve hours [facility] Allergy Relief-D12 5-120 MG 12 hr tablet Take 1 tablet by mouth every 12 (twelve) hours 07/08/2023 Active metroNIDAZOLE 500 mg oral tablet (1 source) Nitroimidazole Antimicrobial Start: 02-17-2022 End: 02-24-2022 take 1 tablet by mouth every eight hours Flagyl 500 mg Tab 500 mg = 1 tab(s), Oral, q8hr, X 7 day(s), # 21 tab(s), Refills(s) 0, Pharmacy: [facility]/pharmacy #[id number], 165.1, cm, 02/17/22 16:15:00 EST, [...] BID, # 28 tab(s), Refills(s) 0, Pharmacy: [facility]/pharmacy #[id number], 165, cm, 12/15/20 1:59:00 EDT, Height/Length Dosing, 113, kg, 12/15/20 1:59:00 EDT, Weight Dosing Start Date: 12/15/20 Status: Ordered Start: 10-01-2020 take 1 tablet by lencho th twice daily as needed for pain Naprosyn 500 mg Tab 500 mg = 1 tab(s), Oral, BID, PRN for pain, # 20 tab(s), Refills(s) 0, [id number] 165.1, cm, 11/10/21 12:16:00 EDT, Height/Length Dosing, 128, kg, 07/17/21 9:33:00 EDT, Weight Dosing Start Date: 11/10/21 Status: Ordered phenazopyridine hydrochloride 200 mg oral tablet (1 source) Start: 11-10-2021 End: 11-12-2021 take 1 tablet by mouth three times daily Pyridium 200 mg Tab 200 mg = 1 tab(s), Oral, TID, X 2 day(s), # 6 tab(s), Refills(s) 0, [id number], 165.1, cm, 11/10/21 12:16:00 EDT, Height/Length Dosing, 128, kg, 07/17/21 9:33:00 EDT, Weight Dosing Start Date: 11/10/21 Stop Date: 11/12/21 Status: Ordered vit,codi 74/iron/folic ( VITAMIN 1+1 ORAL) (2 sources) take 1 tablet by mouth in the [...] q6hr, # 14 tab(s), Refills(s) 0, [facility]: [id number], 165, cm, 06/04/21 14:38:00 EDT, Height/Length Dosing, 123, kg, 06/04/21 14:38:00 EDT, Weight Dosing Start Date: 06/04/21 Status: Ordered terconazole 4 mg/ml vaginal cream (3 sources) [...] day(s), # 15 tab(s), Refills(s) 0, [id number], 165.1, cm, 01/11/23 16:14:00 EST, Height/Length Dosing, 127, kg, 01/11/23 16:14:00 EST, Weight Dosing Start Date: 01/11/23 Stop Date: 01/16/23 Status: Ordered Ventolin HFA 90 mcg/inh Aerosol-Adpt (1 source) Start: 04-18-2024 take 1 puff(s) by inhalation every six hours for wheezing Ventolin HFA 90 mcg/inh Aerosol-Adpt 1 puff(s), Inhalation, q6hr for wheezing, 18 gram, Refill(s) 0, [id number] 165, cm, 04/18/24 11:46:00 EST, Height/Length Dosing, 124.5, kg, 04/18/24 11:46:00 EST, Weight Dosing Start Date: 04/18/24 Status: Ordered Zofran ODT 4 mg Tab-Dis (20 sources) Start: 10-17-2022 take 1 tablet by mouth every eight hours as needed for nausea Zofran ODT 4 mg Tab-Dis 4 mg = 1 tab(s), Oral, q8hr, PRN Nausea/Vomiting, # 16 tab(s), Refills(s) 0, Pharmacy: [facility]/pharmacy #[id number], 165, cm, 10/17/22 13:07:00 EDT, Height/Length Dosing, 123.3, kg, 10/17/22 13:07:00 EDT, Weight Dosing Start Date: 10/17/22 Status: Ordered Start: 02-17-2022 take 1 tablet by lencho th every six hours as needed for nausea Zofran ODT 4 mg Tab-Dis 4 mg = 1 tab(s), Oral, q6hr, PRN Nausea/Vomiting, # 12 tab(s), Refills(s) 0, Pharmacy: [facility]/pharmacy #6173, 165.1, cm, 02/17/22 16:15:00 EST, Height/Length Dosing, 122, kg, 02/17/22 16:15:00 EST, Weight Dosing Start Date: 02/17/22 Status: Ordered Start: 02-25-2021 take 1 tablet by lencho th every eight hours Zofran ODT 4 mg Tab-Dis 4 mg = 1 tab(s), Oral, q8hr, # 12 tab(s), Refills(s) 0, Pharmacy: [facility]/pharmacy #[id number], 165, cm, 02/24/21 23:21:00 EST, Height/Length Dosing, 112, kg, 02/24/21 23:21:00 EST, Weight Dosing Start Date: 02/25/21 Status: Ordered Start: 09-16-2020 take 1 tablet by lencho th every eight hours Zofran ODT 4 mg Tab-Dis 4 mg = 1 tab(s), Oral, q8hr, # 10 tab(s), Refills(s) 0, Pharmacy: [facility]/pharmacy #[id number], 165, cm, 09/15/20 22:47:00 EDT, [...] mL 10/03/2024 10/03/2024 Discontinued (Entered in error) meclizine hydrochloride 25 mg oral tablet (20 sources) Antiemetic Start: 07-08-2023 End: 10-17-2024 meclizine (Antivert) 25 MG tablet Take 25 mg by mouth 07/08/2023 10/17/2024 Discontinued sodium chloride 0.111 meq/ml nasal spray (17 sources) Start: 09-18-2020 Jackson Saline Mist 0.65% nasal spray 2 spray(s), Nasal, QID, 1 EA, Refill(s) 4, [id number], 165, cm, 09/18/20 9:51:00 EDT, Height/Length Dosing, 116, kg, 09/18/20 9:51:00 EDT, Weight Dosing Start Date: 09/18/20 Status: Ordered Start: 09-18-2020 Jackson Saline Mis t 0.65% nasal spray 2 spray(s), Nasal, QID, 1 EA, Refill(s) 4, [id number], 165, cm, 09/18/20 9:51:00 EDT, Height/Length Dosing, 116, kg, 09/18/20 9:51:00 EDT, Weight Dosing Start Date: 09/18/20 Status: Ordered SUMAtriptan 25 mg oral tablet (20 sources) Serotonin-1b and Serotonin-1d Receptor Agonist Start: 07-06-2023 End: 10-17-2024 SUMAtriptan (Imitrex) 25 MG tablet Take 25 mg by mouth 07/06/2023 10/17/2024 Discontinued Problems Active Problems Problem Classification Problem Date Documented Da te Episodic/Chronic Abdominal pain (2 sources) Abdominal pain; Translations: [Unspecified abdominal pain] Onset: 3 Episodic Asthma (20 sources) Asthma 08-02-2013 Chronic Conditions associated with dizziness or vertigo (20 sources) Dizziness; Translations: [Dizziness and giddiness] Onset: 4 09-30-2020 Episodic Diabetes mellitus without complication (3 sources) Abnormal glucose tolerance test; Translations: [Other abnormal glucose] 06-18-2024 Episodic Diabetes or abnormal glucose tolerance complicating ; childbirth; or the puerperium (9 sources) Gestational diabetes mellitus; Translations: [Gestational diabetes mellitus in , unspecified control] 06-18-2024 Episodic Headache; including migraine (13 sources) Migraine; Translations: [Migraine, unspecified, not intractable, without status migrainosus] Onset: 3 Chronic Headache; including migraine (2 sources) Headache; Translations: [Headache, unspecified] Onset: 3 Episodic Hypertension complicating ; childbirth and the puerperium (4 sources) Hypertension complicating ; Translations: [Unspecified maternal hypertension, third trimester] 10-08-2024 Chronic Hypertension complicating ; childbirth and the puerperium (4 sources) Pre-eclampsia; Translations: [Unspecified pre-eclampsia, unspecified trimester] Onset: [...] 4 Chronic Other and delivery including normal (14 sources) Normal ; Translations: [Encounter for supervision [...] gestation of ] Episodic Residual codes; unclassified (3 sources) Gestation period, 32 weeks; Translations: [32 weeks [...] Test Name Value Interpretation Reference Range Facility OB BPP W NON-STRESS on 10-17-2024 [place] [address] Ultrasound Report Signed Patient: SABRINA RICHMOND MR#: [id number] : 1995 Acct:[id number] Age/Sex: 29 / F ADM Date: 10/17/24 Loc: [facility] 250-[address]: Zack Ortiz D.O. Ordering Physician: Zack Ortiz D.O. Date of Service: 10/17/24 Procedure(s): US OB BPP w non-stress Accession Number(s): [id number] cc: Zack Ortiz D.O.; Physician,Non-Staff M.DNathalia The [address] [address] Patient Name: SABRINA RICHMOND MRN: [id number] date: 1995 Sex: F Assigned Patient Location: [facility] Current Patient Location: [facility] Accession/Order Number: [id number] Exam Date: 10/17/2024 10:30 Report Date: 10/17/2024 [...] Kee M.D. 10/17/2024 11:04 AM Dictation Location: [place] [address] Electronically authenticated by: [id number] Y Date: 10/17/2024 11:04 Dictated By: Jane Kee M.D. Signed By: 10/17/24 1107 DD/ 1104 TD/TT: Home Comfort Advisor: [facility] Radiology, Radiologist, MD - 10/17/2024 [place] [address] Ultrasound Report Signed Patient: SABRINA RICHMOND MR#: [id number] : 1995 Acct:[id number] Age/Sex: 29 / F ADM Date: 10/17/24 Loc: [facility] 250-[address]: Zack Ortiz D.O. Ordering Physician: Zack Ortiz D.O. Date of Service: 10/17/24 Procedure(s): US OB BPP w non-stress Accession Number(s): [id number] cc: Zack Ortiz D.O.; Physician,Non-Staff [place] [id number] Patient Name: SABRINA RICHMOND MRN: [facility]:[id number] date: 1995 Sex: F Assigned Patient Location: [facility] Current Patient Location: [facility] Accession/Order Number: [id number] Exam Date: 10/17/2024 10:30 Report Date: 10/17/2024 [...] This is in low-normal range. Total score: 8 US/US OB BPP w non-stress IMPRESSION: NORMAL BIOPHYSICAL PROFILE Impression dictated by: Jane Kee M.D. 10/17/2024 11:04 AM Dictation Location: [place] [address] Electronically authenticated by: [id number] Y Date: 10/17/2024 11:04 Dictated By: Jane Kee M.D. Signed By: 10/17/24 1107 DD/ 1104 TD/TT: Home Comfort Advisor: [facility] Radiology Study observation (narrative) [facility] US OB BPP W NON-STRESS Ordered By: Radiologist Radiology on 10-17-2024 [facility] Work Phone: Urinalysis macro (dipstick) panel (U)on 10-17-2024 Bilirubin, UA Negative Negative - 4(70) +++ mg/dL [facility] Blood, UA Negative Negative - 50 Yossi/mcL [facility] Clarity, UA Clear [facility] Color, UA Yellow [facility] Glucose, UA Negative Negative - 2000(110) ++++ mg/dL [facility] Interpretation and review of laboratory results Abnormal [facility] Ketones, UA Negative Negative - 160(16) ++++ mg/dL [facility] Leukocytes, UA Positive Negative - 500+++ Wild/mcL [facility] Comment on above: 2+ Nitrite, UA Negative Negative - Positive [facility] pH, UA 1 5 - 9 [facility] Protein, UA Positive Negative - 2000(20) ++++ mg/dL [facility] Comment on above: 1+ Spec Grav, UA 1 1 - 1.03 [facility] Urobilinogen, UA 1.0 0.2 - 12 mg/dL [facility] US OB BPP W NON-STRESS on 10-10-2024 [place] [address] Ultrasound Report Signed Patient: SABRINA RICHMOND MR#: [id number] : 1995 Acct:[id number] Age/Sex: 29 / F ADM Date: 10/10/24 Loc: [facility] 250-[address]: Zack Ortiz D.O. Ordering Physician: Zack Ortiz D.O. Date of Service: 10/10/24 Procedure(s): US OB BPP w non-stress Accession Number(s): [id number] cc: Zack Ortiz D.O.; Physician,Non-Staff M.DNathalia [address] [address] Patient Name: SABRINA RICHMOND MRN: [id number] date: 1995 Sex: F Assigned Patient Location: [facility] Current Patient Location: [facility] Accession/Order Number: [id number] Exam Date: 10/10/2024 14:02 Report Date: 10/10/2024 14:29 At the request of: ZACK ORTIZ DO Procedure: US OB BPP w non-stress Biophysical profile. Reason for exam: Gestational diabetes COMPARISON: 10/03/2024 TECHNIQUE: Transabdominal imaging of the gravid uterus was obtained. FINDINGS: The master electrician reports a BPP of 8 out of 8. SCOOTER is normal at 11.7 cm. heart rate 134 bpm. US/US OB BPP w non-stress IMPRESSION: BPP 8 out of 8. Impression dictated by: Kahlil Voss Jr., D.O. 10/10/2024 2:29 PM Dictation Location: [place] [address] Electronically authenticated by: [id number] Y Date: 10/10/2024 14:29 Dictated By: Kahlil Voss M.D. Signed By: 10/10/24 1432 DD/ 1429 TD/TT: Home Comfort Advisor: [facility] Radiology, Radiologist, MD - 10/10/2024 [place] [address] Ultrasound Report Signed Patient: SABRINA RICHMOND MR#: [id number] : 1995 Acct:[id number] Age/Sex: 29 / F ADM Date: 10/10/24 Loc: [place] [address]-[address]: Zack Ortiz D.O. Ordering Physician: Zack Ortiz D.O. Date of Service: 10/10/24 Procedure(s): US OB BPP w non-stress Accession Number(s): [id number] cc: Zack Ortiz D.O.; Physician,Non-Staff James The [address] [address] Patient Name: SABRINA RICHMOND MRN: [facility]:[id number] date: 1995 Sex: F Assigned Patient Location: [facility] Current Patient Location: [facility] Accession/Order Number: [id number] Exam Date: 10/10/2024 14:02 Report Date: 10/10/2024 14:29 At the request of: ZACK ORTIZ DO Procedure: US OB BPP w non-stress Biophysical profile. Reason for exam: Gestational diabetes COMPARISON: 10/03/2024 TECHNIQUE: Transabdominal imaging of the gravid uterus was obtained. FINDINGS: The master electrician reports a BPP of 8 out of 8. SCOOTER is normal at 11.7 cm. heart rate 134 bpm. US/US OB BPP w non-stress IMPRESSION: BPP 8 out of 8. Impression dictated by: Kahlil Voss Jr., D.O. 10/10/2024 2:29 PM Dictation Location: [place] [address] Electronically authenticated by: [id number] Y Date: 10/10/2024 14:29 Dictated By: Kahlil Voss M.D. Signed By: 10/10/24 1432 DD/ 142 TD/TT: Home Comfort Advisor: [facility] Radiology Study observation (narrative) [facility] US OB BPP W NON-STRESS Ordered By: Radiologist Radiology on 10-10-2024 [facility] Work Phone: Urinalysis macro (dipstick) panel (U)on 10-08-2024 Bilirubin, UA Negative Negative - 4(70) +++ mg/dL [facility] Blood, UA Negative Negative - 50 Yossi/mcL [facility] Clarity, UA Clear [facility] Color, UA Yellow [facility] Glucose, UA Negative Negative - 1999(110) ++++ mg/dL [facility] Interpretation and review of laboratory results Abnormal [facility] Ketones, UA Negative Negative - 160(16) ++++ mg/dL [facility] Leukocytes, UA Negative Negative - 500+++ Wild/mcL [facility] Nitrite, UA Negative Negative - Positive [facility] pH, UA 6 5 - 9 [facility] Protein, UA Negative Negative - 1999(20) ++++ mg/dL [facility] Spec Grav, UA 1.03 1 - 1.03 [facility] Urobilinogen, UA 1.0 0.2 - 12 mg/dL [facility] ALL BUNon 10-04-2024 Urea nitrogen [Mass/Vol] 6 mg/dL Low 7.0 - 18.0 mg/dL [facility] ALL URIC ACIDon 10-04-2024 Urate [Mass/Vol] 5.4 mg/dL 2.6 - 6.0 mg/dL [facility] 10-04-2024 ALT [Catalytic activity/Vol] 14 U/L 14 - 59 U/L [facility] 10-04-2024 AST [Catalytic activity/Vol] 14 U/L Low 15 - 37 U/L [facility] No Panel Informationon 10-04 Interpretation and review of laboratory results Abnormal [facility] CREATININEon 10-04-2024 Creatinine [Mass/Vol] 0.75 mg/dL 0.55 - 1.02 mg/dL [facility] GFR/1.73 sq M.predicted CKD-EPI (S/P/Bld) [Vol rate/Area] >60 >=60 mL/min/1.73m 2 [facility] EGFR-NON AF BAHAMIAN >60 >=60 mL/min/1.73m 2 [facility] ALL URIC ACIDon 10-03-2024 Urate [Mass/Vol] 5.3 mg/dL 2.6 - 6.0 mg/dL [facility] Basic Metabolic Panelon 09-15 Creatinine [Mass/Vol] 0.8 mg/dL 0.5 - 1.1 mg/dL [facility] CBC and differentialon 10-03 Neutrophils (Bld) [#/Vol] 11.9 10*3/uL Abnormal 1.30 - 8.30 10*3/uL [facility] WBC (Bld) [#/Vol] 15.2 10*3/mL Abnormal 3.3 - 10.0 10*3/mL [facility] 10-03-2024 ALT [Catalytic activity/Vol] 14 U/L 14 - 59 U/L [facility] 10-03-2024 Interpretation and review of laboratory results Abnormal [facility] Laboratory - Chemistry and C hemistry - challengeon 10-03-2024 AST [Catalytic activity/Vol] 13 U/L 13 - 35 U/L [facility] Urea nitrogen [Mass/Vol] 10 mg/dL 4 - 21 mg/dL [facility] No Panel Informationon 10-03 [facility] Interpretation and review of laboratory results Abnormal [facility] CREATININEon 10-03-2024 Creatinine [Mass/Vol] 0.84 mg/dL 0.55 - 1.02 mg/dL [facility] GFR/1.73 sq M.predicted CKD-EPI (S/P/Bld) [Vol rate/Area] >60 >=60 mL/min/1.73m 2 [facility] EGFR-NON AF BAHAMIAN >60 >=60 mL/min/1.73m 2 [facility] US OB BPP W NON-STRESS on 10-03-2024 [place] [address] Ultrasound Report Signed Patient: SABRINA RICHMOND MR#: [id number] : 1995 Acct:[id number] Age/Sex: 29 / F ADM Date: Loc: [facility] 251-[address]: Zack Ortiz D.O. Ordering Physician: Zack Ortiz D.O. Date of Service: 10/03/24 Procedure(s): US OB BPP w non-stress Accession Number(s): [id number] cc: Zack Ortiz D.O.; Physician,Non-Staff MJanak [place] [id number] Patient Name: SABRINA RICHMOND MRN: [id number] date: 1995 Sex: F Assigned Patient Location: [facility] Current Patient Location: [facility] Accession/Order Number: [id number] Exam Date: 10/03/2024 17:45 Report Date: 10/03/2024 [...] Tan M.D. 10/03/2024 5:46 PM Dictation Location: [employer] Electronically authenticated by: [id number] Y Date: 10/03/2024 17:46 Dictated By: Robi Tan D.O. Signed By: 10/03/241747 DD/ 45 TD/TT: Home Comfort Advisor: [facility] Radiology, Radiologist, - 10/03/2024 [place] [address] Ultrasound Report Signed Patient: SABRINA RICHMOND MR#: [id number] : 1995 Acct:[id number] Age/Sex: 29 / F ADM Date: Loc: [facility] 251-[address]: Zack Ortiz D.O. Ordering Physician: Zack Ortiz D.O. Date of Service: 10/03/24 Procedure(s): US OB BPP w non-stress Accession Number(s): [id number] cc: Zack Ortiz D.O.; Physician,Non-Staff [place] [address] Patient Name: SABRINA RICHMOND MRN: [facility]:[id number] date: 1995 Sex: F Assigned Patient Location: [facility] Current Patient Location: [facility] Accession/Order Number: [id number] Exam Date: 10/03/2024 17:45 Report Date: 10/03/2024 [...] Tan M.D. 10/03/2024 5:46 PM Dictation Location: [employer] Electronically authenticated by: [id number] Y Date: 10/03/2024 17:46 Dictated By: Robi Tan D.O. Signed By: 10/03/241747 DD/ 45 TD/TT: Home Comfort Advisor: [facility] Radiology Study observation (narrative) [facility] US OB BPP W NON-STRESS Ordered By: Radiologist Radiology on 10-03-2024 [facility] Work Phone: US OB FOLLOW UP TRANSABDOMIN [...] II, MD, PHD at 04-Oct-2024 08:06:58 AM [facility] Normal Not Available Comment on above: Order Comment: US OB SCAN FOR GROWTH Estimated Date of Delivery: 12/06/24 Gestational Age as of 09/17/2024: 28w4d Urinalysis macro (dipstick) panel (U)on 10-03-2024 Bilirubin, UA Negative Negative - 4(70) +++ mg/dL [facility] Blood, UA Negative Negative - 50 Yossi/mcL [facility] Clarity, UA Clear [facility] Color, UA Yellow [facility] Glucose, UA Negative Negative - 1999(110) ++++ mg/dL [facility] Ketones, UA Negative Negative - 160(16) ++++ mg/dL [facility] Leukocytes, UA Positive Negative - 500+++ Wild/mcL [facility] Comment on above: 2+ Nitrite, UA Negative Negative - Positive [facility] pH, UA 6 5 - 9 [facility] Protein, UA Negative Negative - 1999(20) ++++ mg/dL [facility] Spec Grav, UA 1.01 1 - 1.03 [facility] Urobilinogen, UA 0.2 0.2 - 12 mg/dL [facility] US OB LIMITED 1+ FETUSESon 0 08-29-2024 [...] GDLNon AGE GDLN ACOG TESTING Note . [facility] Comment on above: TESTS RESULT FLAG UN ITS REF RANGE LAB Clinician Provided Cytology Information Source.............Cervix No. of containers..01 ThinPrep Vial Age Algo ACOG Haydee... 3065 FLAG LEGEND: L-Low Normal,H-High Normal,LL-Alert Low,HH-Alert High <-Panic Low,>-Panic High,A-Abnormal,AA-Critical Abnormal Performed at: 01 =[address] [id number] Glory Schaffer MD, HPV APTIMA Negative Negative [facility] Comment on above: This nucleic acid am plification test detects fourteen high- risk HPV types (16,18,31,33,35,39,45,51,52,56,58,59,66,68) without differentiation. Performed at: =[address] [id number] Turn Supervisor: Glroy Schaffer MD, Phone: [phone] Performed at: [address] [id number] Turn Supervisor: Glory Schaffer MD, Phone: [phone] IGP, APTIMA HPV, RFX 16/18,45 Note . [facility] Comment on above: TESTS RESULT FLAG UN ITS REF RANGE LAB DIAGNOSIS: 02 NEGATIVE FOR INTRAEPITHELIAL LESION OR MALIGNANCY. Specimen adequacy: 02 Satisfactory for evaluation. No endocervical component is identified. Performed by: 02 Tai Darling, Plant Sprayer (ASCP) . 02 Note: Note 02 The [...] <-Panic Low,>-Panic High,A-Abnormal,AA-Critical Abnormal Performed at: [address] [address] Glory Schaffer MD, BRUSH-SPATULA CERVIX [facility] RECURRENT VAGINITIS (HTRX)on 08-21-2024 ATOPOBIUM VAGINAE 0 [facility] Healthcare ATOPOBIUM VAGINAE Not detected [facility] Healthcare BVAB 2,3 (BACTERIAL VAGINOSIS ASSOCIATED BACTERIA 2, 3); MOBILUNCUS SPP 0 [facility] BVAB 2,3 (BACTERIAL VAGINOSIS ASSOCIATED BACTERIA 2, 3); MOBILUNCUS SPP Not detected [facility] Healthcare FORREST ALBICANS, PARAPSILOSIS, TROPICALIS 0 [facility] Healthcare FORREST ALBICANS, PARAPSILOSIS, TROPICALIS Not detected [facility] FORREST GLABRATA 0 [facility] FORREST [...] UA Negative Negative - 4(70) +++ mg/dL [facility] Blood, UA Negative Negative - 50 Yossi/mcL [facility] Clarity, UA Clear [facility] Color, UA Yellow [facility] Glucose, UA Negative Negative - 1999(110) ++++ mg/dL [facility] Interpretation and review of laboratory results Normal [facility] Ketones, UA Negative Negative - 160(16) ++++ mg/dL [facility] Leukocytes, UA Negative Negative - 500+++ Wild/mcL [facility] Nitrite, UA Negative Negative - Positive [facility] pH, UA 7 5 - 9 [facility] Protein, UA Negative Negative - 1999(20) ++++ mg/dL [facility] Spec Grav, UA 1.015 1 - 1.03 [facility] Urobilinogen, UA 0.2 0.2 - 12 mg/dL [facility] Urinalysis macro (dipstick) panel (U)on 07-24-2024 Bilirubin, UA Negative Negative - 4(70) +++ mg/dL [facility] Blood, UA Negative Negative - 50 Yossi/mcL [facility] Clarity, UA Clear [facility] Color, UA Yellow [facility] Glucose, UA Negative Negative - 1999(110) ++++ mg/dL [facility] Interpretation and review of laboratory results Normal [facility] Ketones, UA Negative Negative - 160(16) ++++ mg/dL [facility] Leukocytes, UA Negative Negative - 500+++ Wild/mcL [facility] Nitrite, UA Negative Negative - Positive [facility] pH, UA 6.5 5 - 9 [facility] Protein, UA Negative Negative - 1999(20) ++++ mg/dL [facility] Spec Grav, UA 1.025 1 - 1.03 [facility] Urobilinogen, UA 0.2 0.2 - 12 mg/dL [facility] US OB 14+ WEEKS ANATOMY SCAN [...] II, MD, PHD at 25-Jul-2024 08:22:22 AM [facility] [facility] Normal Not Available Comment on above: Order Comment: US OB ANATOMY SINGLE W US OB CERVICAL LENGTH Estimated Date of Delivery: 12/06/24 Gestational Age as of 06/18/2024: 15w4d Urinalysis macro (dipstick) panel (U)on 06-18-2024 Bilirubin, UA Negative Negative - 4(70) +++ mg/dL [facility] Blood, UA Negative Negative - 50 Yossi/mcL [facility] Clarity, UA Clear [facility] Color, UA Yellow [facility] Glucose, UA Negative Negative - 2000(110) ++++ mg/dL [facility] Interpretation and review of laboratory results Normal [facility] Ketones, UA Negative Negative - 160(16) ++++ mg/dL [facility] Leukocytes, UA Trace Negative - 500+++ Wild/mcL [facility] Nitrite, UA Negative Negative - Positive [facility] pH, UA 7 5 - 9 [facility] Protein, UA Negative Negative - 2000(20) ++++ mg/dL [facility] Spec Grav, UA 1.01 1 - 1.03 [facility] Urobilinogen, UA 0.2 0.2 - 12 mg/dL [facility] TBH DRUG SCREEN RAPID (URINE )on 05-28-2024 AMPHETAMINE SCREEN URINE Negative NEGATIVE [facility] BARBITURATES SCREEN URINE Negative NEGATIVE [facility] BENZODIAZEPINES SCREEN URINE Negative NEGATIVE [facility] BUPRENORPHINE SCREEN URINE Negative NEGATIVE [facility] Comment on above: DRUG CLASS TEST SYST [...] 300 ng/mL CANNABINOID SCREEN URINE Negative NEGATIVE [facility] COCAINE SCREEN URINE Negative NEGATIVE [facility] METHADONE SCREEN URINE Negative NEGATIVE NO [facility] METHAMPHETAMINES SCREEN URINE Negative NEGATIVE [facility] OPIATE SCREEN URINE Negative NEGATIVE [facility] OXYCODONE SCREEN URINE Negative NEGATIVE [facility] PHENCYCLIDINE SCREEN URINE Negative NEGATIVE [facility] TRICYCLIC ANTIDEPRESSANT URINE Negative NEGATIVE [facility] 05-24-2024 BOX TEST SENT OUT [facility] BOX1 [facility] BOX2 05/24/24 [facility] HCG ( test) Ql (U)o n 05-22-2024 Interpretation and review of laboratory results Abnormal [facility] Preg Test, Ur Positive Negative [facility] US Pelvis transvaginalon EXAM: US OB [...] II, MD, PHD at 20-May-2024 10:38:05 PM [facility] [place] Una Webber MD - 05/20/2024 [...] II, MD, PHD at 20-May-2024 10:38:05 PM [facility] US Pelvis transvaginalOrdere d By: Una Webber on 05-20-2024 [facility] Work Phone: US OB TRANSVAGINALon 025 US [...] II, MD, PHD at 20-May-2024 10:38:05 PM [facility] [place] Normal Not Available Comment on above: Order Comment: US OB TRANSVAGINAL No LMP recorded. US Pelvis transvaginalon Radiology Study observation (narrative) [facility] Ambulatory Visit Summaryon 0 04-27-2024 Ambulatory Visit [...] a day asthma Refills: 2 Pickup at [facility]/pharmacy #[id number] New predniSONE (predniSONE 10 mg Tab) See instructions asthma take 2 tabs by mouth for 3 days, then take 1 tab by mouth for 3 days, then stop Pickup at [facility]/pharmacy #[id number] Unchanged albuterol (Albuterol (Eqv-ProAir HFA) 90 mcg/ inh inhalation aerosol) Inhalation Every 6 hours Unchanged albuterol (Ventolin HFA 90 mcg/ inh Aerosol-Adpt) 1 Puffs Inhalation Every 6 hours as needed for for wheezing Unchanged meclizine (meclizine 25 mg Tab) 1 Tablets By Mouth 3 times a day as needed for for dizziness Unchanged Non-Formulary Medication ( Vitamins) Pharmacy Information [facility]/pharmacy #[id number]: [address] [place], [place] [id number] [phone] Allergies No Known Allergies Problems Ongoing - [...] choosing us for your care. Normal [facility] Family Medicine Office/Clini c Noteon [...] hours, # 9 tab(s), Refills(s) 1, Pharmacy: [facility]/pharmacy #[id number], 165, cm, 07/06/23 8:52:00 EDT, [...] virus vac (more content not included)... Normal [facility] Comment on above: Result Comment: Elec tronically Signed By: JOAQUÍN RODRIGUEZ\.br\Date and Time Signed: 04/27/24 10:37 EDT ED Clinical Summaryon 2024 ED Clinical Summary ED Clinical Summary [place] [id number] ED Clinical Summary Person Information Name: SABRINA RICHMOND Brenda[place] Age: 28 Years : 1995 Sex: Female Language: Kittitian PCP: JOAQUÍN RODRIGUEZ Marital Status: Phone: [phone] Visit Id: Visit Reason: Weakness or fatigue; [...] 14:10:02 04/18/2024 14:10:02 04/18/2024 14:10:02 ADDRESS: [address] [facility] [id number] PHYS DOC NOTES: MEDICAL INFORMATION: Prescriptions Given: New Medications [facility]/pharmacy #[id number], [address] [place], [place] [id number], [phone] amoxicillin (amoxicillin 500 mg Cap) 2 Capsules [...] PATIENT EDUCATION INFORMATION: Instructions: Community-Acquired Pneumonia, Adult, Gorj-cy-Logq Follow up: With: Address: When: REY HERNANDEZMIHAIVLAD [address] [place] [address] Business (1) In 3 days 04/21/2024 Comments: Call Dr for diagnosis based follow up DIAGNOSIS: Pneumonia Normal [facility] ED Note-Physicianon 04-19-19 ED Note-Physician ED [...] and Complexity of Problems Differential Diagnosis: [] [facility] Data External documents reviewed: [] My EKG [...] moving forward. Mark Fitzpatrick PA-C had a ombi-di-tvlm interaction with the patient. I personally performed [...] day(s), # 28 cap(s), Refills(s) 0, Pharmacy: [facility]/pharmacy #[id number], 165, cm, 04/18/24 11:46:00 EST, Height/Length Dosing, 124.5, kg, 04/18/24 11:46:00 EST, Weight Dosing Influenza A&B Ag Rapid COVID Antigen ([facility]) Disposition Plan Patient Discharge Condition stable Discharge Disposition to home Discharge Prescription List Prescriptions amoxicillin 500 mg Cap, 1000 mg= 2 cap(s), Oral, q12hr Ventolin HFA 90 mcg/inh Aerosol-Adpt, 1 puff(s), Inhalation, q6hr, PRN Follow-up With When Contact Information REY ALAS In 3 days 04/21/2024 EST [address] Business (1) Additional Instructions: Call Dr for diagnosis based follow up Patient Education Community-Acquired Pneumonia, Adult, Bnje-sm-Gkmx Attestation Patient seen and evaluated by the physician commercial lending assistant. Attending physician was present in the emergency department and supervised care. This visit was performed by both the physician and an APC. I performed all aspects of the MDM as documented. This report was transcribed using voice recognition software. Every effo (more content not included)... Normal [facility] Comment on above: Result Comment: Elec tronically Signed By: Alva Jo M.D.\.br\Date and Time Signed: 04/18/24 18:02 EST\.br\Electronically Co-Signed By: Mark Jackman PA-C\.br\Date and Time Co-Signed: 04/18/24 16:19 EST ED Patient Summaryon 025 ED Patient Summary ED Patient Summary [place] [id number] Patient Discharge Instructions Person Information Name: SABRINA RICHMOND Age: 28 Years Arrival Date: 04/18/2024 11:36:25 Discharge Diagnosis: Pneumonia Primary Care Physician: JOAQUÍN RODRIGUEZ Provider Information Primary Provider: Alva Jo M.D. Advanced Recycl[employer] Tech:Mark Jackman PA-C The exam and treatment you received in the Emergency Department were for an urgent problem and are not intended as complete care. It is important that you follow up with a doctor, nurse practitioner, or physician???s commercial lending assistant for ongoing care. If your symptoms [...] Instructions: With: Address: When: REY ALAS [address] [place] [address] [facility] () In 3 days 04/21/2024 Comments: Call Dr for diagnosis based follow up In the event that this physician does not participate in your insurance network, please consult with your insurance company to find a nearby participating provider. Patient Education Materials: Community-Acquired Pneumonia, Adult, Ggqd-ii-Rsay A MESSAGE TO ALL PATIENTS REGARDING OPIOIDS PRESCRIPTION OPIOIDS: WHAT YOU NEED TO KNOW Prescription opioids can be used to help relieve xidkukbf-di-jdaxur pain and are often prescribed following a [...] If you (more content not included)... Normal [facility] Influenza A&B Agon Influenzae A Ag Negative Normal Negative [facility] Comment on above: Performed By: #### 1 [id number] #### [facility] [address] [place] [address] Influenzae B Ag Negative Normal Negative [facility] Comment on above: Result Comment: Test sensitivity and specificity vary for age group, specimen type, antigen types, and prevalence of disease. Test results must be evaluated in conjunction with other clinical data available to the physician. Individuals who received nasally administered Influenza A vaccine may have positive test results up to 3 days after vaccination. Performed By: #### 1 [id number] #### [facility] [address] [place] [address] MICRO OTHER TESTSOrdered By: Mary Sears on 04-18-2024 Influenzae A Ag Negative (04/18/24 12:06 PM) Normal Negative [facility] Man Sero Influenzae B Ag Negative 1 (04/18/24 12:06 PM) Normal Negative [facility] Sero Comment on above: Interpretive Data: T [...] NEG Ctl Pass (04/18/24 12:06 PM) Normal [facility] Man Sero Rapid COV Int POS Ctl Pass (04/18/24 12:06 PM) Normal [facility] Sero SARS-CoV+SARS-CoV-2 (COVID-19) Ag IA.rapid Ql (Resp) Not Detected 2 (04/18/24 12:06 PM) Normal Not Detected [facility] Man Sero Comment on above: Interpretive Data: T he Endocrine Technology Veritor System for Rapid Detection of SARS-CoV-2 [...] terminated or revoked sooner. Rapid COVID Antigen (MC)on 04-18-2024 Rapid COV Int NEG Ctl Pass Normal [facility] Comment on above: Performed By: #### 2 [id number] #### [facility] [address] [place] [address] Rapid COV Int POS Ctl Pass Normal [facility] Comment on above: Performed By: #### 2 [id number] #### [facility] [address] [place] [address] SARS-CoV+SARS-CoV-2 (COVID-19) Ag IA.rapid Ql (Resp) Not detected Normal Not Detected [facility] Comment on above: Result Comment: The Endocrine Technology Veritor??? System for Rapid Detection of SARS-CoV-2 [...] or revoked sooner. Performed By: #### 2 [id number] #### [facility] [address] [place] [id number] MRI Brain w/ + w/o Contrasto n [...] Vueway Contrast amount in ml's: 10 Normal [facility] Ambulatory Visit Summaryon 0 10-10-2023 Ambulatory [...] 2:00 PM EDT With: JOAQUÍN RODRIGUEZ Where: [facility] [address] [place] [address]- You Need to Complete the Following MRI Brain w/ + w/o Contrast, 10/10/23, Routine, Order for Future Visit, Transport Mode: Ambulatory, Reason: Headache, No, No, Intractable migraine with aura Complicated migraine, pp_set_radiology_sub specialty, [facility] Someone Will Contact You Regarding These Appointments [facility] External Ambulatory Referral, Dermatology, [facility], 10/10/23 10:54:00 EDT, Nevus Medications What How [...] choosing us for your care. Roxanne [facility] Family Medicine Office/Clini c Noteon [...] Melanocytic nevi, unspecified) Referral to derm. Ordered: [facility] External Ambulatory Referral 2. Migraine (G43.909: Migraine, [...] Daily, # 30 tab(s), Refills(s) 3, Pharmacy: [facility]/pharmacy #[id number], 165.1, cm, 07/08/23 12:52:00 EDT, [...] No K (more content not included)... Normal [facility] Comment on above: Result Comment: Elec tronically Signed By: JOAQUÍN RODRIGUEZ\.br\Date and Time Signed: 10/10/23 11:33 EDT Consent for Treatmenton 06-15 Consent for Treatment [id number] #1.00TIFF [facility] Discharge Instructionson Discharge Instructions [id number] 5#1.00TIFF [facility] ED Clinical Summaryon 2023 ED Clinical Summary [place] [id number] ED Clinical Summary Person Information Name: SABRINA RICHMOND [place]da[place] Age: 28 Years : 1995 Sex: Female Language: Kittitian PCP: JOAQUÍN RODRIGUEZ Marital Status: Phone: [phone] Visit Id: Visit Reason: Fever; Sinus Pain/Congestion; [...] 14:32:37 07/08/2023 14:32:37 07/08/2023 14:32:37 ADDRESS: [address] [id number] PHYS DOC NOTES: MEDICAL INFORMATION: Prescriptions Given: New Medications [id number], [address] [place], [place] [id number], [phone] loratadine-pseudoeph edrine (loratadine-pseudoep hedrine 5 mg-120 mg [...] REY ALAS [address] [place] [address] Business (1) In 3 days 07/11/2023 DIAGNOSIS: Sinus headache; Vertigo Normal [facility] ED Note-Physicianon 07-08-19 ED Note-Physician Basic [...] dizziness, # 15 tab(s), Refills(s) 0, Pharmacy: [facility]/pharmacy #6173, 165.1, cm, 07/08/23 12:52:00 EDT, [...] 07/11/2023 EDT [address] [place] [address]- Business (1) Additional Instructions: Patient Education Vertigo [...] made to ensure accuracy, however, inadvertently computerized director patient financial services mistakes may be present. Appropriate healthcare PPE [...] year, 11/07/2019 (more content not included)... Normal [facility] Comment on above: Result Comment: Elec [...] cool or dry air. Medicines ? Take bynu-aqw-tjqccgr and prescription medicines only as told by [...] provider. Document Revised: 01/03/2022 Document Reviewed: 01/03/2022 [employer] Patient Education ? 2022 [employer] Neurology Vertigo Vertigo is the feeling [...] for stabil (more content not included)... Normal [facility] ED Patient Summaryon 024 ED Patient Summary [address] [address] Patient Discharge Instructions Person Information Name: SABRINA RICHMOND Age: 28 Years Arrival Date: 07/08/2023 12:47:49 Discharge Diagnosis: Sinus headache; Vertigo Primary Care Physician: JOAQUÍN RODRIGUEZ Provider Information Primary Provider: Jagdish Dunn DO Advanced Recycling Tech:Jarrell King PA-C The exam and treatment you received in the Emergency Department were for an urgent problem and are not intended as complete care. It is important that you follow up with a doctor, nurse practitioner, or physician?s commercial lending assistant for ongoing care. If your symptoms [...] REY ALAS [address] [place] [address] Business (1) In 3 days 07/11/2023 In the event that this physician does not participate in your insurance network, please consult with your insurance company to find a nearby participating provider. Patient Education Materials: Vertigo; Sinus Pain A MESSAGE TO ALL PATIENTS REGARDING OPIOIDS PRESCRIPTION OPIOIDS: WHAT YOU NEED TO KNOW Prescription opioids can be used to help relieve djqrtkrl-tq-lnnron pain and are often prescribed following a [...] struggling with addiction, tell your health career agent and ask for guidance or call SAMHSA?S National Helpline at 3-948-657-HELP. v (more content not included)... [facility] Prescriptions/Work Noteson 0 07-08-2023 Prescriptions/Work Notes [id number] 7#1.00TIFF [facility] XR Chest Single Viewon 07-07 XR [...] mGy = na DAP = na Normal [facility] Ambulatory Visit Summaryon 0 07-06-2023 Ambulatory [...] 8:40 AM EDT With: JOAQUÍN RODRIGUEZ Where: [facility] [place] Normal [facility] Family Medicine Office/Clini c Noteon 05-22-2024 Family Medicine Office/Clinic Note Chief Complaint establish [...] hours, # 9 tab(s), Refills(s) 1, Pharmacy: [facility]/pharmacy #[id number], 165, cm, 07/06/23 8:52:00 EDT, Height/Length Dosing, 125.8, kg, 2... 4. Non-smoker (Z78.9: Other specified health status) stable Ordered: sumatriptan, 25 mg = 1 tab(s), Oral, Daily, PRN for migraine headache, may repeat dose after 2 hours up to a maximum of 200 mg in 24 hours, # 9 tab(s), Refills(s) 1, Pharmacy: [facility]/pharmacy #[id number], 165, cm, 07/06/23 8:52:00 EDT, Height/Length Dosing, 125.8, kg, 2... Follow-up With When Contact Information BISHOP GHOSH, MIGDALIA YANES Within 4 weeks Additional Instructions: Patient Education [...] influenza vir (more content not included)... Normal [facility] Comment on above: Result Comment: Elec tronically Signed By: BISHOP GHOSH, JOAQUÍN\.br\Date and Time Signed: 07/06/23 10:09 EDT Patient [...] these instructions at home: Medicines ? Take pyvr-efo-qnkpkls and prescription medicines only as told by [...] and dr (more content not included)... Normal [facility] CHEMISTRYOrdered By: SYSTEM SYSTEM on 01-11-2023 [...] 70 mL/min/1.73 m2 Normal >=59mL/min/1 .73 m2 [facility] Chem S Comment on above: Interpretive Data: C hronic kidney disease could be indicated at eGFR's of less than 60 mL/min/1.73m2. Kidney failure is indicated at less than 15 mL/min/1.73m2. Glucose [Mass/Vol] 93 mg/dL Normal 55 - 199 mg/dL [facility] Remisol Comment on above: Interpretive Data: I [...] Ag Negative (01/06/23 3:06 PM) Normal Negative [facility] Sero Influenzae B Ag Negative 1 (01/06/23 3:06 PM) Normal Negative [facility] Sero Comment on above: Interpretive Data: T [...] NEG Ctl Pass (01/06/23 3:06 PM) Normal [facility] Sero Rapid COV Int POS Ctl Pass (01/06/23 3:06 PM) Normal [facility] Sero SARS-CoV+SARS-CoV-2 (COVID-19) Ag IA.rapid Ql (Resp) Not Detected 2 (01/06/23 3:06 PM) Normal Not Detected [facility] Sero Comment on above: Interpretive Data: T he Endocrine Technology Veritor System for Rapid Detection of SARS-CoV-2 [...] PM) Normal Negative [facility] UA Auto SS [place].plasma/[place]. RBC (Bld) [Mass ratio] 0-3 /HPF Normal [...] [facility] UA Auto SS Urobilinogen Qn (U) 0.6924884 {Juma'U}/dL Normal 0.0 - 1.0 EU/dL [facility] [...] Normal >=59mL/min/1 .73 m2 [facility] Chem S Globulin (S) [Mass/Vol] 3.9 g/dL [...] PM) Normal Negative [facility] UA Auto SS [place].plasma/[place]. RBC (Bld) [Mass ratio] 0-3 /HPF Normal [...] [facility] UA Auto SS Urobilinogen Qn (U) 0.7443234 {Juma'U}/dL Normal 0.0 - 1.0 EU/dL [facility] [...] PM) Normal Negative [facility] UA Auto SS [place].plasma/[place]. RBC (Bld) [Mass ratio] 0-3 /HPF Normal [...] [facility] UA Auto SS Urobilinogen Qn (U) 0.5861578 {Juma'U}/dL Normal 0.0 - 1.0 EU/dL [facility] UA Auto SS WBC Auto Ql (U) 3+ *ABN* (11/10/21 12:40 PM) Invalid Interpretation Code Negative [facility] UA Auto SS WBC LM.HPF (Urine sed) [#/Area] 16-25 /HPF Invalid Interpretation Code 0-5/HPF [facility] UA Auto SS Basophils Auto (Bld) [#/Vol] Ordered By: PRESLEY TIMMONS on 09-13-2021 Basophils (Bld) [#/Vol] 0.0 10*3/uL 0.0-0.2 [facility] Basophils/100 WBC Auto (Bld) Ordered By: PRESLEY TIMMONS on 09-13-2021 Basophils/100 WBC (Bld) 0.3 % . F [facility] Blood hemoglobin measurement (mass/volume)Ordered By: PRESLEY TIMMONS on 09-13-2021 Hemoglobin (Bld) [Mass/Vol] 11.7 g/dL 11.8-15.4 [facility] Blood leukocytes automated c ount (number/volume)Ordered By: PRESLEY TIMMONS on 09-13-2021 WBC (Bld) [#/Vol] 13.1 10*3/uL 4.5-11.0 [facility] Complete Blood Count Auto Di ffon 09-13-2021 Basophils (Bld) [#/Vol] 0.0 10*3/uL Normal 0.0-0.2 [facility] Comment on above: Order Comment: Comme nt Draw at 630 am Result Comment: PERF ORMED BY: [place] [address] PATHOLOGIST PRODUCTION SUPPORT SPECIALIST SANDY PEREZ M.D. Performed By: #### C BC #### [facility] [address] [place] [address] [place] Basophils/100 WBC (Bld) 0.3 % Normal . [facility] Comment on above: Order Comment: Comme nt Draw at 630 am Performed By: #### C BC #### [facility] [address] [place] [id number] [place] Eosinophils (Bld) [#/Vol] 0.1 10*3/uL Normal 0.0-0.45 [facility] Comment on above: Order Comment: Comme nt Draw at 630 am Performed By: #### C BC #### [facility] [address] [place] [address] [place] Eosinophils/100 WBC (Bld) 0.8 % Normal . [facility] Comment on above: Order Comment: Comme nt Draw at 630 am Performed By: #### C BC #### [address] Erythrocyte distribution width (RBC) [Ratio] 15.3 % Normal 11.9-15.3 [facility] Comment on above: Order Comment: Comme nt Draw at 630 am Performed By: #### C BC #### [address] Hematocrit (Bld) [Volume fraction] 35.2 % Normal 34.0-46.4 [facility] Comment on above: Order Comment: Comme nt Draw at 630 am Performed By: #### C BC #### [address] Hemoglobin (Bld) [Mass/Vol] 11.7 g/dL Low 11.8-15.4 [facility] Comment on above: Order Comment: Comme nt Draw at 630 am Performed By: #### C BC #### [address] Lymphocytes (Bld) [#/Vol] 2.4 10*3/uL Normal 1.00-4.8 [facility] Comment on above: Order Comment: Comme nt Draw at 630 am Performed By: #### C BC #### [address] Lymphocytes/100 WBC (Bld) 18.5 % Normal . [facility] Comment on above: Order Comment: Comme nt Draw at 630 am Performed By: #### C BC #### [address] MCH (RBC) [Entitic mass] 27.9 pg Normal 24.7-34.3 [facility] Comment on above: Order Comment: Comme nt Draw at 630 am Performed By: #### C BC #### [address] MCV (RBC) [Entitic vol] 83.6 fL Normal 80-100 F [facility] Comment on above: Order Comment: Comme nt Draw at 630 am Performed By: #### C BC #### [address] Mean Corpuscular HGB Conc 33.3 g/dL Normal 32.0-35.0 [facility] Comment on above: Order Comment: Comme nt Draw at 630 am Performed By: #### C BC #### [facility] [address] Monocytes (Bld) [#/Vol] 0.9 10*3/uL High 0.0-0.8 [facility] Comment on above: Order Comment: Comme nt Draw at 630 am Performed By: #### C BC #### [address] Monocytes/100 WBC (Bld) 6.5 % Normal . [facility] Comment on above: Order Comment: Comme nt Draw at 630 am Performed By: #### C BC #### [address] Neutrophils (Bld) [#/Vol] 9.7 10*3/uL High 1.8-7.7 [facility] Comment on above: Order Comment: Comme nt Draw at 630 am Performed By: #### C BC #### [address] Neutrophils/100 WBC (Bld) 73.9 % Normal . [facility] Comment on above: Order Comment: Comme nt Draw at 630 am Performed By: #### C BC #### [address] Nucleated RBC/100 WBC (Bld) [Ratio] 0.1 % Normal 0-0.5 [facility] Comment on above: Order Comment: Comme nt Draw at 630 am Performed By: #### C BC #### [address] Platelet mean volume (Bld) [Entitic vol] 7.2 fL Normal 6.3-10.7 [facility] Comment on above: Order Comment: Comme nt Draw at 630 am Performed By: #### C BC #### [facility] [address] Platelets (Bld) [#/Vol] 237 10*3/uL Normal 150-450 [facility] Comment on above: Order Comment: Comme nt Draw at 630 am Performed By: #### C BC #### [facility] [address] RBC (Bld) [#/Vol] 4.21 10*6/uL Normal 3.60-5.00 [facility] Comment on above: Order Comment: Comme nt Draw at 630 am Performed By: #### C BC #### [facility] [address] WBC (Bld) [#/Vol] 13.1 10*3/uL High 4.5-11.0 [facility] Comment on above: Order Comment: Comme nt Draw at 630 am Performed By: #### C BC #### [facility] [address] [place] [address] Eosinophils Auto (Bld) [#/Vo l]Ordered By: PRESLEY TIMMONS on 09-13-2021 Eosinophils (Bld) [#/Vol] 0.1 10*3/uL 0.0-0.45 [facility] Eosinophils/100 WBC Auto (Bl d)Ordered By: PRESLEY TIMMONS on 09-13-2021 Eosinophils/100 WBC (Bld) 0.8 % . [facility] Erythrocyte distribution wid th Auto (RBC) [Ratio]Ordered By: PRESLEY TIMMONS on 09-13-2021 Erythrocyte distribution width (RBC) [Ratio] 15.3 % 11.9-15.3 [facility] Hematocrit Auto (Bld) [Volum e fraction]Ordered By: PRESLEY TIMMONS on 09-13-2021 Hematocrit (Bld) [Volume fraction] 35.2 % 34.0-46.4 [facility] Laboratory - Hematology and Cell countsOrdered By: PRESLEY TIMMONS on 09-13-2021 Nucleated RBC/100 WBC (Bld) [Ratio] 0.1 % 0-0.5 [facility] Lymphocytes Auto (Bld) [#/Vo l]Ordered By: PRESLEY TIMMONS on 09-13-2021 Lymphocytes (Bld) [#/Vol] 2.4 10*3/uL 1.00-4.8 [facility] Lymphocytes/100 WBC Auto (Bl d)Ordered By: PRESLEY TIMMONS on 09-13-2021 Lymphocytes/100 WBC (Bld) 18.5 % . [facility] MCH Auto (RBC) [Entitic mass ]Ordered By: PRESLEY TIMMONS on 09-13-2021 MCH (RBC) [Entitic mass] 27.9 pg 24.7-34.3 [facility] MCHC Auto (RBC) [Mass/Vol]Or dered By: PRESLEY TIMMONS on 09-13-2021 MCHC (RBC) [Mass/Vol] 33.3 g/dL 32.0-35.0 [facility] MCV Auto (RBC) [Entitic vol] Ordered By: PRESLEY TIMMONS on 09-13-2021 MCV (RBC) [Entitic vol] 83.6 fL 80-100 [facility] Monocytes Auto (Bld) [#/Vol] Ordered By: PRESLEY TIMMONS on 09-13-2021 Monocytes (Bld) [#/Vol] 0.9 10*3/uL 0.0-0.8 [facility] Monocytes/100 WBC Auto (Bld) Ordered By: PRESLEY TIMMONS on 09-13-2021 Monocytes/100 WBC (Bld) 6.5 % . [facility] Neutrophils Auto (Bld) [#/Vo l]Ordered By: PRESLEY TIMMONS on 09-13-2021 Neutrophils (Bld) [#/Vol] 9.7 10*3/uL 1.8-7.7 [facility] Neutrophils/100 WBC Auto (Bl d)Ordered By: PRESLEY TIMMONS on 09-13-2021 Neutrophils/100 WBC (Bld) 73.9 % . [facility] Platelet mean volume Auto (B ld) [Entitic vol]Ordered By: PRESLEY TIMMONS on 09-13-2021 Platelet mean volume (Bld) [Entitic vol] 7.2 fL 6.3-10.7 [facility] Platelets Auto (Bld) [#/Vol] Ordered By: PRESLEY TIMMONS on 09-13-2021 Platelets (Bld) [#/Vol] 237 10*3/uL 150-450 [facility] RBC Auto (Bld) [#/Vol]Ordere d By: PRESLEY TIMMONS on 09-13-2021 RBC (Bld) [#/Vol] 4.21 10*6/uL 3.60-5.00 [facility] Albumin [Mass/volume] in Ser um or PlasmaOrdered By: PRESLEY TIMMONS on 09-12-2021 Albumin [Mass/Vol] 2.3 g/dL 3.2-5.5 [facility] Comprehensive Metabolic Pane brian 09-12-2021 Albumin [Mass/Vol] 2.3 g/dL Low 3.2-5.5 [facility] Comment on above: Performed By: #### C MP #### [facility] [address] [place] [address] Albumin/Globulin [Mass ratio] 0.6 {ratio} Normal [facility] Comment on above: Performed By: #### C MP #### [facility] [address] [place] [address] [place] ALP [Catalytic activity/Vol] 183 U/L High 32-92 [facility] Comment on above: Performed By: #### C MP #### [facility] [address] [place] [address] ALT [Catalytic activity/Vol] 15 U/L Normal 10-60 [facility] Comment on above: Performed By: #### C MP #### [facility] [address] [place], [place] [id number] [place] AST [Catalytic activity/Vol] 15 U/L Normal 10-42 [facility] Comment on above: Performed By: #### C MP #### [facility] [address] [place] [address] [place] Bilirubin [Mass/Vol] 0.7 mg/dL Normal 0.3-1.2 [facility] Comment on above: Performed By: #### C MP #### [facility] [address] [place] [address] [place] Calcium [Mass/Vol] 8.7 mg/dL Normal 8.2-10.2 [facility] Comment on above: Performed By: #### C MP #### [address] Chloride [Moles/Vol] 102 mmol/L Normal 95-114 [facility] Comment on above: Performed By: #### C MP #### [address] CO2 [Moles/Vol] 22.9 mmol/L Normal 22.0-30.0 [facility] Comment on above: Performed By: #### C MP #### [address] Creatinine [Mass/Vol] 0.69 mg/dL Normal 0.44-1.03 [facility] Comment on above: Performed By: #### C MP #### [address] Creatinine Clr Calc Pharmacy 152.06 [facility] Comment on above: Result Comment: PERF ORMED BY: [place] [address] PATHOLOGIST PRODUCTION SUPPORT SPECIALIST SANDY PEREZ M.D. Performed By: #### C MP #### [address] Estimated GFR ( Brenda > 60 [facility] Comment on above: Result Comment: GFR estimated reference range: According to KDOQI guidelines, <60 ml/min/1.73m2 is sufficient to diagnose a patient with chronic kidney disease. Performed By: #### C MP #### [address] Estimated GFR (Non- Am > 60 [facility] Comment on above: Performed By: #### C MP #### [address] Globulin (S) [Mass/Vol] 3.7 g/dL Normal [facility] Comment on above: Performed By: #### C MP #### [address] Glucose [Mass/Vol] 97 mg/dL Normal 70-100 [facility] Comment on above: Result Comment: [place] Glucose Reference Range is dependent on time and content of last meal. Glucose of more than 200 mg/dL in a nonstressed, ambulatory subject supports the diagnosis of Diabetes Mellitus. ADA recommended reference range Performed By: #### C MP #### [facility] [address] Potassium [Moles/Vol] 3.6 mmol/L Normal 3.5-5.1 [facility] Comment on above: Performed By: #### C MP #### [facility] [address] Protein [Mass/Vol] 6.0 g/dL Low 6.1-7.9 [facility] Comment on above: Performed By: #### C MP #### [facility] [address] Sodium [Moles/Vol] 136 mmol/L Normal 136-146 [facility] Comment on above: Performed By: #### C MP #### [facility] [address] [place] [address] [place] Urea nitrogen [Mass/Vol] 6 mg/dL Low 9-23 [facility] Comment on above: Performed By: #### C MP #### [facility] [address] [place] [address] [place] Creatinine and Glomerular fi ltration rate.predicted panel (S/P/Bld)Ordered By: PRESLEY TIMMONS on 09-12-2021 Creatinine [Mass/Vol] 0.69 mg/dL 0.44-1.03 [facility] Estimated glomerular filtrat ion rate (GFR) non- AmericanOrdered By: PRESLEY TIMMONS on 09-12-2021 GFR/1.73 sq M.predicted among non-blacks MDRD (S/P/Bld) [Vol rate/Area] > 60 mL/[facility] Globulin Calc (S) [Mass/Vol] Ordered By: PRESLEY TIMMONS on 09-12-2021 Globulin (S) [Mass/Vol] 3.7 g/dL [facility] No Panel InformationOrdered By: PRESLEY TIMMONS on 09-12-2021 Estimated GFR () > 60 mL/Min [facility] Comment on above: GFR estimated refere nce range: According to KDOQI guidelines, <60 ml/min/1.73m2 is sufficient to diagnose a patient with chronic kidney disease. Pharmacy Creatinine Clearance (Chem 152.06 [facility] Protein [Mass/volume] in Ser um or PlasmaOrdered By: PRESLEY TIMMONS on 09-12-2021 Protein [Mass/Vol] 6.0 g/dL 6.1-7.9 [facility] Serum or plasma alanine hutton otransferase measurement without P-5'-P (enzymatic activiOrdered By: PRESLEY TIMMONS on 09-12-2021 ALT No additional P-5'-P [Catalytic activity/Vol] 15 U/L 10-60 [facility] Serum or plasma albumin/glob ulin mass ratioOrdered By: PRESLEY TIMMONS on 09-12-2021 Albumin/Globulin [Mass ratio] 0.6 {ratio} [facility] Serum or plasma alkaline lamont sphatase measurement (enzymatic activity/volume)Ordered By: PRESLEY TIMMONS on 09-12-2021 ALP [Catalytic activity/Vol] 183 U/L 32-92 [facility] Serum or plasma aspartate am inotransferase measurement (enzymatic activity/volume)Ordered By: PRESLEY TIMMONS on 09-12-2021 AST [Catalytic activity/Vol] 15 U/L 10-42 [facility] Serum or plasma calcium carlie urement (mass/volume)Ordered By: PRESLEY TIMMONS on 09-12-2021 Calcium [Mass/Vol] 8.7 mg/dL 8.2-10.2 [facility] Serum or plasma chloride irwin surement (moles/volume)Ordered By: PRESLEY TIMMONS on 09-12-2021 Chloride [Moles/Vol] 102 mmol/L 95-114 [facility] Serum or plasma glucose carlie urement (mass/volume)Ordered By: PRESLEY TIMMONS on 09-12-2021 Glucose [Mass/Vol] 97 mg/dL 70-100 [facility] Comment on above: ADA recommended refe rence range Random Glucose Reference Range is dependent on time and content of last meal. Glucose of more than 200 mg/dL in a nonstressed, ambulatory subject supports the diagnosis of Diabetes Mellitus. Serum or plasma potassium me asurement (moles/volume)Ordered By: PRESLEY TIMMONS on 09-12-2021 Potassium [Moles/Vol] 3.6 mmol/L 3.5-5.1 [facility] Serum or plasma sodium measu rement (moles/volume)Ordered By: PRESLEY TIMMONS on 09-12-2021 Sodium [Moles/Vol] 136 mmol/L 136-146 [facility] Serum or plasma total biliru bin measurement (mass/volume)Ordered By: PRESLEY TIMMONS on 09-12-2021 Bilirubin [Mass/Vol] 0.7 mg/dL 0.3-1.2 [facility] Serum or plasma total carbon dioxide measurement (moles/volume)Ordered By: PRESLEY TIMMONS on 09-12-2021 CO2 [Moles/Vol] 22.9 mmol/L 22.0-30.0 [facility] Serum or plasma urea nitroge n measurement (mass/volume)Ordered By: PRESLEY TIMMONS on 09-12-2021 Urea nitrogen [Mass/Vol] 6 mg/dL 9-23 [facility] Amphetamine Screen Ql (U)Ord ered By: PRESLEY TIMMONS on 09-11-2021 Amphetamines Ql (U) Negative Negative [facility] Barbiturates [Presence] in U rineOrdered By: PRESLEY TIMMONS on 09-11-2021 Barbiturates Ql (U) Negative Negative [facility] Benzodiazepines [Presence] i n UrineOrdered By: PRESLEY TIMMONS on 09-11-2021 Benzodiazepines Ql (U) Negative Negative [facility] Bilirubin Auto test strip Ql (U)Ordered By: PRESLEY TIMMONS on 09-11-2021 Bilirubin Ql (U) Negative Negative [facility] COVID-19 Antigenon 2 COVID-19 Antigen Healthcare [...] developed and its performance characteristic determined by [employer] and validated at [facility]. This test has not been FDA [...] for SARS Antigen by [employer] PERFORMED BY: [place] [address] PATHOLOGIST PRODUCTION SUPPORT SPECIALIST SANDY PEREZ M.D. Normal [facility] Comment on above: Performed By: #### C OVID-19 CHANEL, SOFIANEG #### [address] COVID-19 SOFIAOrdered By: MANJU TIMMONS on 09-11-2021 SARS-CoV+SARS-CoV-2 (COVID-19) Ag IA.rapid Ql (Resp) Negative Negative [facility] Comment on above: This is a duplicate Chanel SARS Antigen (IVET) result to be used for statistical tracking purpose only. Chlamydia trachomatis DNA [P resence] in Specimen by [facility] with probe detectionOrdered By: PRESLEY TIMMONS on 09-11-2021 C. trachomatis DNA EMMA+probe Ql (Unsp spec) Negative Negative [facility] Chlamydia/GC/Trich NAAon Chlamydia Trachomotis, EMMA Negative Normal Negative [facility] Comment on above: Performed By: #### G CCHLAMTRI #### [facility] , Neisseria Gonorrhoeae, EMMA Negative Normal Negative [facility] Comment on above: Performed By: #### G CCHLAMTRI #### [facility] , Trichomonas EMMA Negative Normal Negative [facility] Comment on above: Result Comment: Perf ormed at: =G - [facility] [address] [id number] Turn Supervisor: Glory Schaffer MD, Phone: [phone] PERFORMED BY: [place] [address] PATHOLOGIST PRODUCTION SUPPORT SPECIALIST SANDY PEREZ M.D. Performed By: #### G CCHLAMTRI #### [facility] , Complete Blood Count Auto Di ffon 09-11-2021 Basophils (Bld) [#/Vol] 0.1 10*3/uL Normal 0.0-0.2 [facility] Comment on above: Result Comment: PERF ORMED BY: [place] [address] PATHOLOGIST PRODUCTION SUPPORT SPECIALIST SANDY PEREZ M.D. Performed By: #### R ME W RFX #### [facility] , #### CBC #### [facility] [address] [place] [address] [place] Basophils/100 WBC (Bld) 1.1 % Normal . F [facility] Comment on above: Performed By: #### R ME W RFX #### [facility] , #### CBC #### [facility] [address] [place] [address] [place] Eosinophils (Bld) [#/Vol] 0.2 10*3/uL Normal 0.0-0.45 [facility] Comment on above: Performed By: #### R ME W RFX #### [facility] , #### CBC #### [facility] [address] [place] [address] Eosinophils/100 WBC (Bld) 1.7 % Normal . [facility] Comment on above: Performed By: #### R ME W RFX #### [facility] , #### CBC #### [address] Erythrocyte distribution width (RBC) [Ratio] 14.7 % Normal 11.9-15.3 [facility] Comment on above: Performed By: #### R ME W RFX #### [facility] , #### CBC #### [address] Hematocrit (Bld) [Volume fraction] 37.4 % Normal 34.0-46.4 [facility] Comment on above: Performed By: #### R ME W RFX #### [facility] , #### CBC #### [facility] [address] [place] [address] Hemoglobin (Bld) [Mass/Vol] 12.4 g/dL Normal 11.8-15.4 [facility] Comment on above: Performed By: #### R ME W RFX #### [facility] , #### CBC #### [facility] [address] [place] [address] [place] Lymphocytes (Bld) [#/Vol] 2.4 10*3/uL Normal 1.00-4.8 [facility] Comment on above: Performed By: #### R ME W RFX #### [facility] , #### CBC #### [facility] [address] [place] [address] [place] Lymphocytes/100 WBC (Bld) 19.6 % Normal . [facility] Comment on above: Performed By: #### R ME W RFX #### [facility] , #### CBC #### [facility] [address] [place] [address] MCH (RBC) [Entitic mass] 28.1 pg Normal 24.7-34.3 [facility] Comment on above: Performed By: #### R ME W RFX #### [facility] , #### CBC #### [address] MCV (RBC) [Entitic vol] 84.4 fL Normal 80-100 [facility] Comment on above: Performed By: #### R ME W RFX #### [facility] , #### CBC #### [address] Mean Corpuscular HGB Conc 33.2 g/dL Normal 32.0-35.0 [facility] Comment on above: Performed By: #### R ME W RFX #### [facility] , #### CBC #### [facility] [address] [place] [address] Monocytes (Bld) [#/Vol] 0.8 10*3/uL Normal 0.0-0.8 [facility] Comment on above: Performed By: #### R ME W RFX #### [facility] , #### CBC #### [facility] [address] [place] [address] [place] Monocytes/100 WBC (Bld) 6.6 % Normal . F [facility] Comment on above: Performed By: #### R ME W RFX #### [facility] , #### CBC #### [facility] [address] [place] [address] Neutrophils (Bld) [#/Vol] 8.8 10*3/uL High 1.8-7.7 [facility] Comment on above: Performed By: #### R ME W RFX #### [facility] , #### CBC #### [address] Neutrophils/100 WBC (Bld) 71.0 % Normal . [facility] Comment on above: Performed By: #### R ME W RFX #### [facility] , #### CBC #### [place] [address] [place] Nucleated RBC/100 WBC (Bld) [Ratio] 0.1 % Normal 0-0.5 [facility] Comment on above: Performed By: #### R ME W RFX #### [facility] , #### CBC #### [address] Platelet mean volume (Bld) [Entitic vol] 7.4 fL Normal 6.3-10.7 [facility] Comment on above: Performed By: #### R ME W RFX #### [facility] , #### CBC #### [facility] [address] [place] [address] [place] Platelets (Bld) [#/Vol] 256 10*3/uL Normal 150-450 [facility] Comment on above: Performed By: #### R ME W RFX #### [facility] , #### CBC #### [facility] [address] [place] [address] [place] RBC (Bld) [#/Vol] 4.43 10*6/uL Normal 3.60-5.00 [facility] Comment on above: Performed By: #### R ME W RFX #### [facility] , #### CBC #### [facility] [address] [place] [address] [place] WBC (Bld) [#/Vol] 12.4 10*3/uL High 4.5-11.0 [facility] Comment on above: Performed By: #### R ME W RFX #### [facility] , #### CBC #### [facility] [address] [place] [address] [place] Ketones Auto test strip (U) [Mass/Vol]Ordered By: PRESLEY TIMMONS on 09-11-2021 Ketones (U) [Mass/Vol] Negative Negative [facility] - Drug toxicology Ordered By: PRESLEY TIMMONS on 09-11-2021 Opiates Ql (U) Negative Negative [facility] Neisseria gonorrhoeae DNA [P resence] in Specimen by [facility] with probe detectionOrdered By: PRESLEY TIMMONS on 09-11-2021 N. gonorrhoeae DNA [facility]+probe Ql (Unsp spec) Negative Negative [facility] No Panel InformationOrdered By: PRESLEY TIMMONS on 09-11-2021 SARS Antigen (LFIA) [facility] OB Urine Drug Screen (NO THC )on 09-11-2021 Amphetamine Screen,Urine Negative Normal Negative [facility] Comment on above: Performed By: #### U A, OBUDS #### [facility] [address] [place] [address] [place] Barbiturate Screen,Urine Negative Normal Negative [facility] Comment on above: Performed By: #### U A, OBUDS #### [facility] [address] [place] [address] [place] Benzodiazepines Screen,Urine Negative Normal Negative [facility] Comment on above: Performed By: #### U A, OBUDS #### [facility] [address] [place] [address] [place] Cocaine Screen,Urine Negative Normal Negative [facility] Comment on above: Performed By: #### U A, OBUDS #### [facility] [address] [place] [address] [place] Opiate Screen,Urine Negative Normal Negative [facility] Comment on above: Performed By: #### U A, OBUDS #### [facility] [address] [place] [address] [place] Phencyclidine Screen, Urine Negative Normal Negative [facility] Comment on above: Result Comment: Thes e are unconfirmed results and should not be used for legal purposes. Drug Cut-Off Concentration: AMPH 1000 ng/mL DANTE 200 ng/mL DONTA 200 ng/mL COCM 300 ng/mL OP 300 ng/mL PCP 25 ng/mL PERFORMED BY: [place] [address] PATHOLOGIST PRODUCTION SUPPORT SPECIALIST SANDY PEREZ M.D. Performed By: #### U A, OBUDS #### [facility] [address] [place] [address] Phencyclidine Screen Ql (U)O rdered By: PRESLEY TIMMONS on 09-11-2021 Phencyclidine Ql (U) Negative Negative [facility] Comment on above: These are unconfirme d results and should not be used for legal purposes. Drug Cut-Off Concentration: AMPH 1000 ng/mL DANTE 200 ng/mL DONTA 200 ng/mL COCM 300 ng/mL OP 300 ng/mL PCP 25 ng/mL Protein Auto test strip (U) [Mass/Vol]Ordered By: PRESLEY TIMMONS on 09-11-2021 Protein (U) [Mass/Vol] Negative Negative [facility] RPR w/rfx to Quant TP Abson 09-11-2021 RPR, Rfx Quant RPR Non-Reactive Normal Non Reactive [facility] Comment on above: Result Comment: Perf ormed at: - [facility] [address] [id number] Turn Supervisor: Surya Hazel PhD, Phone: [phone] PERFORMED BY: [place] [address] PATHOLOGIST PRODUCTION SUPPORT SPECIALIST SANDY PEREZ M.D. Performed By: #### R ME W RFX #### [facility] , #### CBC #### [facility] [address] [place], [place] [id number] [facility] Reagin Ab [Presence] in Seru m by RPROrdered By: PRESLEY TIMMONS on 09-11-2021 Reagin Ab RPR Ql (S) Non-Reactive Non Reactive [facility] Comment on above: Performed at: - L [address] [id number] Turn Supervisor: Surya Hazel PhD, Phone: [phone] Chanel Ag Negativeon 09-12-19 Chanel Ag Negative Negative Normal Negative [facility] Comment on above: Result Comment: This is a duplicate Chanel SARS Antigen (IVET) result to be used for statistical tracking purpose only. PERFORMED BY: [place] [address] PATHOLOGIST PRODUCTION SUPPORT SPECIALIST SANDY PEREZ M.D. Performed By: #### C OVID-19 CHANEL, SOFIANEG #### [address] Trichomonas vaginalis DNA [P resence] in Specimen by [facility] with probe detectionOrdered By: PRESLEY TIMMONS on 09-11-2021 T. vaginalis DNA [facility]+probe Ql (Unsp spec) Negative Negative [facility] Comment on above: Performed at: =G - L [address] [id number] Turn Supervisor: Glory Schaffer MD, Phone: [phone] Urinalysison 09-11-2021 Appearance (U) Clear Normal [facility] Comment on above: Order Comment: Name Collection Type:: Voided Performed By: #### U A, OBUDS #### [facility] [address] [place] [address] [place] Bilirubin,Urine Negative Normal [facility] Comment on above: Order Comment: Name Collection Type:: Voided Performed By: #### U A, OBUDS #### [facility] [address] [place] [address] [place] Color (U) Yellow Normal [facility] Comment on above: Order Comment: Name Collection Type:: Voided Performed By: #### U A, OBUDS #### [facility] [address] [place] [address] [place] Glucose Ql (U) Normal [facility] Comment on above: Order Comment: Name Collection Type:: Voided Performed By: #### U A, OBUDS #### [facility] [address] [place] [address] Ketones Ql (U) Negative Normal [facility] Comment on above: Order Comment: Name Collection Type:: Voided Performed By: #### U A, OBUDS #### [address] Leukocyte esterase Test strip Ql (U) Negative Normal [facility] Comment on above: Order Comment: Name Collection Type:: Voided Performed By: #### U A, OBUDS #### [address] Nitrite,Urine Negative Normal [facility] Comment on above: Order Comment: Name Collection Type:: Voided Performed By: #### U A, OBUDS #### [address] Occult Blood,Urine Negative Normal Negative [facility] Comment on above: Order Comment: Name Collection Type:: Voided Result Comment: PERF ORMED BY: [place] [address] PATHOLOGIST PRODUCTION SUPPORT SPECIALIST SANDY PEREZ M.D. Performed By: #### U A, OBUDS #### [place] [address] [place] pH (U) 6.0 [pH] Normal 5.0-9.0 [facility] Comment on above: Order Comment: Name Collection Type:: Voided Performed By: #### U A, OBUDS #### [place] [address] [place] Protein,Urine Negative Normal [facility] Comment on above: Order Comment: Name Collection Type:: Voided Performed By: #### U A, OBUDS #### [address] Specificy [place],Urine 1.015 Normal 1.001-1.030 [facility] Comment on above: Order Comment: Name Collection Type:: Voided Performed By: #### U A, OBUDS #### [address] [place] [address] [place] Urobilinogen,Urine Normal Normal Normal [facility] Comment on above: Order Comment: Name Collection Type:: Voided Performed By: #### U A, OBUDS #### [facility] [address] [id number] [facility] Urine appearanceOrdered By: PRESLEY TIMMONS on 09-11-2021 Appearance (U) Clear [facility] Urine cocaine detectionOrder ed By: PRESLEY TIMMONS on 09-11-2021 Cocaine Ql (U) Negative [facility] Urine colorOrdered By: PRESLEY TIMMONS on 09-11-2021 Color (U) Yellow [facility] Urine glucose measurement by automated test strip (mass/volume)Ordered By: PRESLEY TIMMONS on 09-11-2021 Glucose Auto test strip (U) [Mass/Vol] Normal mg/dL [facility] Urine hemoglobin detection b y automated test stripOrdered By: PRESLEY TIMMONS on 09-11-2021 Hemoglobin Auto test strip Ql (U) Negative [facility] Urine leukocyte esterase det ection by automated test stripOrdered By: PRESLEY TIMMONS on 09-11-2021 Leukocyte esterase Auto test strip Ql (U) Negative [facility] Urine nitrite detection by a utomated test stripOrdered By: PRESLEY TIMMONS on 09-11-2021 Nitrite Auto test strip Ql (U) Negative [facility] Urobilinogen Auto test strip (U) [Mass/Vol]Ordered By: PRESLEY TIMMONS on 09-11-2021 Urobilinogen (U) [Mass/Vol] Normal mg/dL [facility] pH Auto test strip (U)Ordere d By: PRESLEY TIMMONS on 09-11-2021 pH (U) 1.015 [pH] 1.001-1.030 [facility] pH (U) 6.0 [pH] 5.0-9.0 [facility] CHEMISTRYOrdered By: SYSTEM SYSTEM on 07-02-2021 Glucose 3 Hr post 75 g glucose PO [Mass/Vol] 59 mg/dL Normal 55 - 140 mg/dL [facility] Remisol Glucose 2 Hr post 75 g glucose PO [Mass/Vol] 100 mg/dL Normal 55 - 155 mg/dL [facility] Remisol Glucose 1 Hr post 75 g glucose PO [Mass/Vol] 169 mg/dL Normal 55 - 180 mg/dL [facility] Remisol Glucose post fast [Mass/Vol] 94 mg/dL Normal 55 - 99 mg/dL [facility] Remisol CHEMISTRYOrdered By: Kuldeep BRUNSON User on 07-02-2021 Glucose [Mass/Vol] 89 mg/dL Normal 55 - 99 mg/dL [facility] POC Subsection POC Device SN [id number] Invalid Interpretation Code [facility] POC Subsection POC User ID [id number] Invalid Interpretation Code [facility] POC Subsection POC Username MYNOR GARCIA Invalid Interpretation Code [facility] POC Subsection URINALYSISOrdered By: Binh Gilliam on [...] (Urine sed) [#/Area] 5-8 /HPF Normal 0-2/HPF [facility] UA Aut o SS Glucose Test strip (U) [Mass/Vol] Negative (06/13/21 10:00 AM) Normal Negative [facility] UA Auto SS Hemoglobin Ql (U) Negative (06/13/21 10:00 AM) Normal Negative [facility] UA Auto SS Ketones (U) [Mass/Vol] Negative (06/13/21 10:00 AM) Normal Negative [facility] UA Auto SS [place].plasma/[place]. RBC (Bld) [Mass ratio] 0-3 /HPF Normal [...] [facility] UA Auto SS Urobilinogen Qn (U) [id number] {Juma'U}/dL Normal 0.0 - 1.0 EU/dL [facility] [...] 8.2 % Normal 4.0 - 14.0 % FT [...] 10.4 E9/L Normal 4.0 - 11.0 E9/L [facility] HemeAutoSS CHEMISTRYOrdered By: Sopogy on 05-30-2021 Glucose 1 Hr post 75 g glucose PO [Mass/Vol] 199 mg/dL High 55 - 180 mg/dL [facility] Remisol HEMATOLOGYOrdered By: Minna King on 05-30-2021 Hematocrit (Bld) [Volume fraction] 35.0 % Normal 34.0 - 46.0 % [facility] HemeAutoSS Hemoglobin (Bld) [Mass/Vol] 12.3 g/dL Normal 12.0 - 16.0 gm/dL [facility] HemeAutoSS CBC AUTO DIFFon 02-11-2021 BASO # 0.1 103/ul Normal 0.0-0.1 [facility] Comment on above: Performed By: #### C BC #### [facility] [address] [place] [address] Dr. Shola Randolph Basophils/100 WBC (Bld) 0.4 % Normal 0.2-2.0 [facility] Comment on above: Performed By: #### C BC #### [facility] [address] [place] [address] Dr. Shola Randolph EO # 0.5 103/ul Normal 0.0-0.7 [facility] Comment on above: Performed By: #### C BC #### [facility] [address] [place] [address] Dr. Shola Randolph Eosinophils/100 WBC (Bld) 3.9 % Normal 0.9-7.0 [facility] Comment on above: Performed By: #### C BC #### [facility] [address] [place] [address] Dr. Shola Randolph Erythrocyte distribution width (RBC) [Ratio] 13.3 % Normal 11.0-15.0 [facility] Comment on above: Performed By: #### C BC #### [facility] [address] [place] [address] Dr. Shola Randolph Hematocrit (Bld) [Volume fraction] 42.0 % Normal 36.0-48.0 [facility] Comment on above: Performed By: #### C BC #### [facility] [address] [place] [address] Dr. Shola Randolph Hemoglobin (Bld) [Mass/Vol] 13.9 g/dL Normal 12.0-16.0 [facility] Comment on above: Performed By: #### C BC #### [facility] [address] [place] [address] Dr. Shola Randolph IG # 0.04 10e3/ul Critically high 0.00-0.03 [facility] Comment on above: Performed By: #### C BC #### [facility] [address] [place] [address] Dr. Shola Randolph IG % 0.3 % Normal 0.0-0.5 [facility] Comment on above: Performed By: #### C BC #### [facility] [address] [place] [address] Dr. Shola Randolph LYMPH # 2.5 103/ul Normal 1.2-3.8 [facility] Comment on above: Performed By: #### C BC #### [facility] [address] [place] [address] Dr. Shola Randolph Lymphocytes/100 WBC (Bld) 20.2 % Critically low 20.5-60.0 [facility] Comment on above: Performed By: #### C BC #### [facility] [address] [place] [address] Dr. Shola Randolph MANUAL DIFF REQ NO Normal [facility] Comment on above: Performed By: #### C BC #### [facility] [address] [place] [address] Dr. Shola Randolph MCH (RBC) [Entitic mass] 28.7 pg Normal 26.7-34.0 [facility] Comment on above: Performed By: #### C BC #### [facility] [address] [place] [address] Dr. Shola Randolph MCHC (RBC) [Mass/Vol] 33.1 g/dL Normal 29.9-35.2 [facility] Comment on above: Performed By: #### C BC #### [facility] [address] [place] [address] Dr. Shola Randolph MCV (RBC) [Entitic vol] 86.6 fL Normal 81.0-99.0 [facility] Comment on above: Performed By: #### C BC #### [facility] [address] [place] [address] Dr. Shola Randolph MONO # 0.8 103/ul Normal 0.3-0.8 [facility] Comment on above: Performed By: #### C BC #### [facility] [address] [address] [address] Shola Randolph Monocytes/100 WBC (Bld) 6.5 % Normal 1.7-12.0 [facility] Comment on above: Performed By: #### C BC #### [facility] [address] [address] [address] Shola Randolph NEUT # 8.5 103/ul Critically high 1.4-6.5 [facility] Comment on above: Performed By: #### C BC #### [facility] [address] [place] [address] Dr. Shola Randolph Neutrophils/100 WBC (Bld) 68.7 % Normal 43.0-75.0 [facility] Comment on above: Performed By: #### C BC #### [facility] [address] [place] [address] Dr. Shola Randolph Platelet mean volume (Bld) [Entitic vol] 8.4 fL Critically low 9.5-13.5 [facility] Comment on above: Performed By: #### C BC #### [facility] [address] [place] [address] Dr. Shola Randolph PLT 246 103/ul Normal 150-450 [facility] Comment on above: Performed By: #### C BC #### [facility] [address] [place] [address] Dr. Shola Randolph RBC 4.85 106/ul Normal 4.20-5.40 [facility] Comment on above: Performed By: #### C BC #### [facility] [address] [place] [address] Dr. Shola Randolph WBC 12.4 103/ul Critically high 4.0-11.0 [facility] Comment on above: Performed By: #### C BC #### [facility] [address] [place] [address] Dr. Shola Randolph PROF 14(COMP METB)on 021 Albumin [Mass/Vol] 3.3 g/dL Critically low 3.5-5.0 [facility] Comment on above: Performed By: #### C MP #### [facility] [address] [place] [address] Dr. Shola Randolph Albumin/Globulin [Mass ratio] 0.8 {ratio} Normal [facility] Comment on above: Performed By: #### C MP #### [facility] [address] [address] [address] Shola Randolph ALP [Catalytic activity/Vol] 76 U/L Normal 38-126 [facility] Comment on above: Performed By: #### C MP #### [facility] [address] [address] [address] Shola Randolph ALT [Catalytic activity/Vol] 25 U/L Normal 9-52 [facility] Comment on above: Performed By: #### C MP #### [facility] [address] [place] [address] Dr. Shola Randolph Anion gap [Moles/Vol] 12.4 mmol/L Normal [facility] Comment on above: Performed By: #### C MP #### [facility] [address] [place] [address] Dr. Shola Randolph AST [Catalytic activity/Vol] 15 U/L Normal 14-36 [facility] Comment on above: Performed By: #### C MP #### [facility] [address] [place] [address] Dr. Shola Randolph Bilirubin [Mass/Vol] 0.3 mg/dL Normal 0.2-1.3 [facility] Comment on above: Performed By: #### C MP #### [facility] [address] [place] [address] Dr. Shola Randolph Calcium [Mass/Vol] 8.8 mg/dL Normal 8.4-10.2 [facility] Comment on above: Performed By: #### C MP #### [facility] [address] [place] [address] Dr. Shola Randolph Chloride [Moles/Vol] 102 mmol/L Normal 98-107 [facility] Comment on above: Performed By: #### C MP #### [facility] [address] [address] [address] Shola Randolph CO2 [Moles/Vol] 25.5 mmol/L Normal 22.0-30.0 [facility] Comment on above: Performed By: #### C MP #### [facility] [address] [address] [address] Shola Randolph Creatinine [Mass/Vol] 0.81 mg/dL Normal 0.52-1.04 [facility] Comment on above: Performed By: #### C MP #### [facility] [address] [place] [address] Dr. Shola Randolph EGFR-AF BAHAMIAN >60 Normal >=60 [facility] Comment on above: Performed By: #### C MP #### [facility] [address] [place] [address] Dr. Shola Randolph EGFR-NON AF BAHAMIAN >60 Normal >=60 [facility] Comment on above: Performed By: #### C MP #### [facility] [address] [place] [address] Dr. Shola Randolph Globulin (S) [Mass/Vol] 4.4 g/dL Normal T [facility] Comment on above: Performed By: #### C MP #### [facility] [address] [place] [address] Dr. Shola Randolph Glucose [Mass/Vol] 88 mg/dL Normal 74-106 [facility] Comment on above: Performed By: #### C MP #### [facility] [address] [place] [address] Dr. Shola Randolph Potassium [Moles/Vol] 3.9 mmol/L Normal 3.4-5.0 [facility] Comment on above: Performed By: #### C MP #### [facility] [address] [place] [address] Dr. Shola Randolph Protein [Mass/Vol] 7.7 g/dL Normal 6.1-8.2 [facility] Comment on above: Performed By: #### C MP #### [facility] [address] [place] [address] Dr. Shola Randolph Sodium [Moles/Vol] 136 mmol/L Critically low 137-145 [facility] Comment on above: Performed By: #### C MP #### [facility] [address] [address] [address] Shola Randolph Urea nitrogen [Mass/Vol] 9.0 mg/dL Normal 7.0-17.0 [facility] Comment on above: Performed By: #### C MP #### [facility] [address] [address] [address] Shola Randolph Urea nitrogen/Creatinine [Mass ratio] 11.1 mg/mg Normal [facility] Comment on above: Performed By: #### C MP #### [facility] [address] [address] [address] Shola Randolph Vital Signs Date Time Vital Sign Value Performing Clinician Facility 10-17-2024 13:30-0400 Body mass index (BMI) [Ratio] 49.33 kg/m2 Zack Angel DO Work Phone: [facility] 10-17-2024 13:30-0400 Body weight 130.36 kg Zack Angel DO Work Phone: [facility] 10-17-2024 13:30-0400 Diastolic blood pressure 82 mm[Hg] Zack Angel DO Work Phone: [facility] 10-17-2024 13:30-0400 Systolic blood pressure 130 mm[Hg] Zack Angel DO Work Phone: [facility] 10-08-2024 15:05-0400 Body mass index (BMI) [Ratio] 49.33 kg/m2 Zack Angel DO Work Phone: [facility] 10-08-2024 15:05-0400 Body weight 130.36 kg Zack Angel DO Work Phone: [facility] 10-08-2024 15:05-0400 Diastolic blood pressure 100 mm[Hg] Zack Angel DO Work Phone: [facility] 10-08-2024 15:05-0400 Systolic blood pressure 142 mm[Hg] Zack Angel DO Work Phone: [facility] 10-03-2024 14:26-0400 Body mass index (BMI) [Ratio] 50.98 kg/m2 Zack Angel DO Work Phone: [facility] 10-03-2024 14:26-0400 Body weight 134.72 kg Zack Angel DO Work Phone: [facility] 10-03-2024 14:26-0400 Diastolic blood pressure 100 mm[Hg] Zack Angel DO Work Phone: [facility] 10-03-2024 14:26-0400 Systolic blood pressure 154 mm[Hg] Zack Angel DO Work Phone: [facility] 09-17-2024 13:18-0400 Body mass index (BMI) [Ratio] 50.64 kg/m2 Gwen Anny PA Work Phone: [facility] 09-17-2024 13:18-0400 Body weight 133.81 kg Gwen Anny PA Work Phone: [facility] 09-17-2024 13:18-0400 Diastolic blood pressure 70 mm[Hg] Gwen Canton PA Work Phone: [facility] 09-17-2024 13:18-0400 Systolic blood pressure 118 mm[Hg] Gwen Anny PA Work Phone: [facility] 08-21-2024 09:16-0400 Body temperature 97.5 [degF] Yixue Virk DDS Work Phone: [facility] 08-21-2024 09:16-0400 Diastolic blood pressure 90 mm[Hg] Yixue Virk DDS Work Phone: [facility] 08-21-2024 09:16-0400 Heart rate 86 /min Yixue Virk DDS Work Phone: [facility] 08-21-2024 09:16-0400 Systolic blood pressure 134 mm[Hg] Yixue Virk DDS Work Phone: [facility] 08-20-2024 14:57-0400 Body mass index (BMI) [Ratio] 48.58 kg/m2 Zack Angel DO Work Phone: [facility] 08-20-2024 14:57-0400 Body weight 128.37 kg Zack Angel DO Work Phone: [facility] 08-20-2024 14:57-0400 Diastolic blood pressure 74 mm[Hg] Zack Angel DO Work Phone: [facility] 08-20-2024 14:57-0400 Systolic blood pressure 122 mm[Hg] Zack Angel DO Work Phone: [facility] 08-15-2024 12:56-0400 Body temperature 98.1 [degF] Yixue Virk DDS Work Phone: [facility] 08-15-2024 12:56-0400 Diastolic blood pressure 96 mm[Hg] Yixue Virk DDS Work Phone: [facility] 08-15-2024 12:56-0400 Heart rate 79 /min Yixue Virk DDS Work Phone: [facility] 08-15-2024 12:56-0400 Systolic blood pressure 138 mm[Hg] Yixue Virk DDS Work Phone: [facility] 07-23-2024 15:23-0400 Body mass index (BMI) [Ratio] 47.38 kg/m2 Gwen SAAVEDRA Work Phone: [facility] 07-23-2024 15:23-0400 Body weight 125.19 kg Gwen SAAVEDRA Work Phone: [facility] 07-23-2024 15:23-0400 Diastolic blood pressure 78 mm[Hg] Gwen SAAVEDRA Work Phone: [facility] 07-23-2024 15:23-0400 Systolic blood pressure 124 mm[Hg] Gwen SAAVEDRA Work Phone: [facility] 04-18-2024 14:08-0500 Diastolic blood pressure 96 mm[Hg] [facility] 04-18-2024 14:08-0500 Heart rate 85 /min [facility] 04-18-2024 14:08-0500 Respiratory rate 20 /min [facility] 04-18-2024 14:08-0500 SaO2% (BldA) [Mass fraction] 99 % [facility] 04-18-2024 14:08-0500 Systolic blood pressure 136 mm[Hg] [facility] 04-18-2024 11:41-0500 Body temperature 98.06 [degF] [facility] 04-18-2024 11:41-0500 Diastolic blood pressure 94 mm[Hg] [facility] 04-18-2024 11:41-0500 Heart rate 106 /min [facility] 04-18-2024 11:41-0500 Respiratory rate 22 /min [facility] 04-18-2024 11:41-0500 SaO2% (BldA) [Mass fraction] 98 % [facility] 04-18-2024 11:41-0500 Systolic blood pressure 144 mm[Hg] [facility] 10-10-2023 10:13-0400 Blood Pressure Location [facility] 10-10-2023 10:13-0400 Body temperature 98.06 [degF] [facility] 10-10-2023 10:13-0400 Diastolic blood pressure 74 mm[Hg] [facility] 10-10-2023 10:13-0400 Heart rate 80 /min [facility] 10-10-2023 10:13-0400 Respiratory rate 15 /min [facility] 10-10-2023 10:13-0400 SaO2% (BldA) [Mass fraction] 98 % [facility] 10-10-2023 10:13-0400 Systolic blood pressure 122 mm[Hg] [facility] 07-08-2023 13:59-0400 Heart rate 107 /min Jagdish Dunn [facility] 07-08-2023 13:59-0400 Respiratory rate 14 /min Jagdish Dunn [facility] 07-08-2023 13:59-0400 SaO2% (BldA) [Mass fraction] 98 % Jagdish Dunn [facility] 07-08-2023 12:49-0400 Body temperature 97.7 [degF] Jagdish Dunn [facility] 07-08-2023 12:49-0400 Diastolic blood pressure 94 mm[Hg] Jagdish Shaun [facility] 07-08-2023 12:49-0400 Heart rate 120 /min Jagdish Shaun [facility] 07-08-2023 12:49-0400 Respiratory rate 15 /min Jagdish Shaun [facility] 07-08-2023 12:49-0400 SaO2% (BldA) [Mass fraction] 97 % Jagdish Dunn [facility] 07-08-2023 12:49-0400 Systolic blood pressure 134 mm[Hg] Jagdish Shaun [facility] 07-06-2023 08:45-0400 Blood Pressure Location [facility] 07-06-2023 08:45-0400 Diastolic blood pressure 86 mm[Hg] [facility] 07-06-2023 08:45-0400 Heart rate 78 /min [facility] 07-06-2023 08:45-0400 SaO2% (BldA) [Mass fraction] 99 % [facility] 07-06-2023 08:45-0400 Systolic blood pressure 126 mm[Hg] [facility] 01-11-2023 19:48-0500 Diastolic blood pressure 96 mm[Hg] Jagdish Shaun [facility] 01-11-2023 19:48-0500 Heart rate 84 /min Jagdish Shaun [facility] 01-11-2023 19:48-0500 Mean blood pressure 108 mm[Hg] Jagdish Shaun [facility] 01-11-2023 19:48-0500 Respiratory rate 13 /min Jagdish Shaun [facility] 01-11-2023 19:48-0500 SaO2% (BldA) [Mass fraction] 97 % Jagdish Shaun [facility] 01-11-2023 19:48-0500 Systolic blood pressure 131 mm[Hg] Jagdish Shaun [facility] 01-11-2023 19:30-0500 Heart rate 85 /min Jagdish Shaun [facility] 01-11-2023 19:30-0500 Respiratory rate 17 /min Jagdish Shaun [facility] 01-11-2023 19:30-0500 SaO2% (BldA) [Mass fraction] 97 % Jagdish Shaun [facility] 01-11-2023 19:00-0500 Diastolic blood pressure 95 mm[Hg] Jagdish Shaun [facility] 01-11-2023 19:00-0500 Heart rate 87 /min Jagdish Shaun [facility] 01-11-2023 19:00-0500 Mean blood pressure 107 mm[Hg] Jagdish Shaun [facility] 01-11-2023 19:00-0500 Respiratory rate 11 /min Jagdish Shaun [facility] 01-11-2023 18:00-0500 Diastolic blood pressure 94 mm[Hg] Jagdish Shaun [facility] 01-11-2023 18:00-0500 Systolic blood pressure 135 mm[Hg] Jagdish Shaun [facility] 01-11-2023 16:10-0500 Body temperature 98.06 [degF] Jagdish Shaun [facility] 01-11-2023 16:10-0500 Heart rate 110 /min Jagdish Shaun [facility] 01-11-2023 16:10-0500 Respiratory rate 18 /min Jagdish Shaun [facility] 01-08-2023 14:21-0500 Body temperature 98.6 [degF] [facility] 01-08-2023 14:21-0500 Diastolic blood pressure 75 mm[Hg] [facility] 01-08-2023 14:21-0500 Heart rate 76 /min [facility] 01-08-2023 14:21-0500 Respiratory rate 18 /min [facility] 01-08-2023 14:21-0500 SaO2% (BldA) [Mass fraction] 97 % [facility] 01-08-2023 14:21-0500 Systolic blood pressure 116 mm[Hg] [facility] 01-08-2023 12:45-0500 Body temperature 98.24 [degF] [facility] 01-08-2023 12:45-0500 Diastolic blood pressure 79 mm[Hg] [facility] 01-08-2023 12:45-0500 Heart rate 110 /min [facility] 01-08-2023 12:45-0500 Respiratory rate 24 /min [facility] 01-08-2023 12:45-0500 SaO2% (BldA) [Mass fraction] 100 % [facility] 01-08-2023 12:45-0500 Systolic blood pressure 117 mm[Hg] [facility] 01-06-2023 16:45-0500 Diastolic blood pressure 87 mm[Hg] Jesus Ayers [facility] 01-06-2023 16:45-0500 Heart rate 98 /min Jesus Ayers [facility] 01-06-2023 16:45-0500 Mean blood pressure 97 mm[Hg] Jesus Ayers [facility] 01-06-2023 16:45-0500 Respiratory rate 20 /min Jesus Ayers [facility] 01-06-2023 16:45-0500 SaO2% (BldA) [Mass fraction] 97 % Jesus Armen [facility] 01-06-2023 16:45-0500 Systolic blood pressure 118 mm[Hg] Jesus Armen [facility] 01-06-2023 16:15-0500 Diastolic blood pressure 85 mm[Hg] Jesus Armen [facility] 01-06-2023 16:15-0500 Heart rate 98 /min Jesus Armen [facility] 01-06-2023 16:15-0500 Mean blood pressure 99 mm[Hg] Jesus Armen [facility] 01-06-2023 16:15-0500 Respiratory rate 18 /min Jesus Armen [facility] 01-06-2023 16:15-0500 SaO2% (BldA) [Mass fraction] 96 % Jesus Armen [facility] 01-06-2023 16:15-0500 Systolic blood pressure 127 mm[Hg] Jesus Armen [facility] 01-06-2023 15:45-0500 Diastolic blood pressure 87 mm[Hg] Jesus Armen [facility] 01-06-2023 15:45-0500 Heart rate 98 /min Jesus Armen [facility] 01-06-2023 15:45-0500 Mean blood pressure 102 mm[Hg] Jesus Armen [facility] 01-06-2023 15:45-0500 Respiratory rate 18 /min Jesus Armen [facility] 01-06-2023 15:45-0500 SaO2% (BldA) [Mass fraction] 97 % Jesus Ayers [facility] 01-06-2023 15:45-0500 Systolic blood pressure 131 mm[Hg] Jesus Ayers [facility] 01-06-2023 15:15-0500 Heart rate 114 /min Jesus Ayers [facility] 01-06-2023 14:48-0500 Body temperature 102.02 [degF] Jesus Ayers [facility] 01-06-2023 14:48-0500 Heart rate 115 /min Jesus Ayers [facility] 10-17-2022 17:02-0400 Diastolic blood pressure 69 mm[Hg] Jagdish Shaun [facility] 10-17-2022 17:02-0400 Heart rate 66 /min Jagdish Shaun [facility] 10-17-2022 17:02-0400 Mean blood pressure 79 mm[Hg] Jagdish Shaun [facility] 10-17-2022 17:02-0400 Respiratory rate 18 /min Jagdish Shaun [facility] 10-17-2022 17:02-0400 SaO2% (BldA) [Mass fraction] 98 % Jagdish Shaun [facility] 10-17-2022 17:02-0400 Systolic blood pressure 100 mm[Hg] Jagdish Shaun [facility] 10-17-2022 16:43-0400 Hourly Rounding Jagdish Dunn [facility] 10-17-2022 16:43-0400 Promise to Return Jagdish Dunn [facility] 10-17-2022 16:42-0400 Diastolic blood pressure 65 mm[Hg] Jagdish Shaun [facility] 10-17-2022 16:42-0400 Heart rate 62 /min Jagdish Shaun [facility] 10-17-2022 16:42-0400 Mean blood pressure 80 mm[Hg] Jagdish Shaun [facility] 10-17-2022 16:42-0400 Respiratory rate 18 /min Jagdish Shaun [facility] 10-17-2022 16:42-0400 SaO2% (BldA) [Mass fraction] 99 % Jagdish Shaun [facility] 10-17-2022 16:42-0400 Systolic blood pressure 111 mm[Hg] Jagdish Shaun [facility] 10-17-2022 15:43-0400 Diastolic blood pressure 69 mm[Hg] Jagdish Shaun [facility] 10-17-2022 15:43-0400 Heart rate 68 /min Jagdish Shaun [facility] 10-17-2022 15:43-0400 Hourly Rounding Jagdish Shaun [facility] 10-17-2022 15:43-0400 Mean blood pressure 83 mm[Hg] Jagdish Shaun [facility] 10-17-2022 15:43-0400 Promise to Return Jagdish Shaun [facility] 10-17-2022 15:43-0400 Respiratory rate 18 /min Jagdish Shaun [facility] 10-17-2022 15:43-0400 SaO2% (BldA) [Mass fraction] 100 % Jagdish Shaun [facility] 10-17-2022 15:43-0400 Systolic blood pressure 111 mm[Hg] Jagdish Shaun [facility] 10-17-2022 14:49-0400 Hourly Rounding Jagdish Dunn [facility] 10-17-2022 14:49-0400 Promise to Return Jagdishmiguel ángel Dunn [facility] 10-17-2022 13:04-0400 Body temperature 98.06 [degF] Jagdish Shaun [facility] 10-17-2022 13:04-0400 Heart rate 93 /min Jagdish Shaun [facility] 02-17-2022 21:00-0500 Diastolic blood pressure 91 mm[Hg] Jagdish Shaun [facility] 02-17-2022 21:00-0500 Heart rate 86 /min Jagdish Shaun [facility] 02-17-2022 21:00-0500 Mean blood pressure 106 mm[Hg] Jagdish Shaun [facility] 02-17-2022 21:00-0500 Respiratory rate 20 /min Jagdish Shaun [facility] 02-17-2022 21:00-0500 SaO2% (BldA) [Mass fraction] 98 % Jagdish Shaun [facility] 02-17-2022 21:00-0500 Systolic blood pressure 136 mm[Hg] Jagdish Shaun [facility] 02-17-2022 20:00-0500 Diastolic blood pressure 81 mm[Hg] Jagdish Shanu [facility] 02-17-2022 20:00-0500 Heart rate 91 /min Jagdish Shaun [facility] 02-17-2022 20:00-0500 Mean blood pressure 96 mm[Hg] Jagdish Dunn [facility] 02-17-2022 20:00-0500 Respiratory rate 16 /min Jagdish Shaun [facility] 02-17-2022 20:00-0500 Systolic blood pressure 125 mm[Hg] Jagdish Shaun [facility] 02-17-2022 19:44-0500 Diastolic blood pressure 98 mm[Hg] Jagdish Shaun [facility] 02-17-2022 19:44-0500 Heart rate 99 /min Jagdish Shaun [facility] 02-17-2022 19:44-0500 Mean blood pressure 112 mm[Hg] Jagdish Dunn [facility] 02-17-2022 19:44-0500 Respiratory rate 19 /min Jagdish Shaun [facility] 02-17-2022 19:44-0500 SaO2% (BldA) [Mass fraction] 97 % Jagdish Dunn [facility] 02-17-2022 19:44-0500 Systolic blood pressure 140 mm[Hg] Jagdish Shaun [facility] 02-17-2022 16:14-0500 Body temperature 98.96 [degF] Jagdish Shaun [facility] 02-17-2022 16:14-0500 Heart rate 112 /min Jagdish Shaun [facility] 11-10-2021 12:13-0400 Body temperature 97.88 [degF] Jesus Ayers [facility] 11-10-2021 12:13-0400 Diastolic blood pressure 88 mm[Hg] Jesus Ayers [facility] 11-10-2021 12:13-0400 Heart rate 93 /min Jesus Ayers [facility] 11-10-2021 12:13-0400 Respiratory rate 16 /min Jesus Ayers [facility] 11-10-2021 12:13-0400 SaO2% (BldA) [Mass fraction] 99 % Jesus Ayers [facility] 11-10-2021 12:13-0400 Systolic blood pressure 128 mm[Hg] Jesus Ayers [facility] 09-14-2021 16:00-0400 Diastolic blood pressure 98 mm[Hg] PHYSICIAN NO [facility] 09-14-2021 16:00-0400 Heart rate 106 /min PHYSICIAN NO [facility] 09-14-2021 16:00-0400 Respiratory rate 16 /min PHYSICIAN NO [facility] 09-14-2021 16:00-0400 SaO2% (BldA) [Mass fraction] 97 % PHYSICIAN NO [facility] 09-14-2021 16:00-0400 Systolic blood pressure 138 mm[Hg] PHYSICIAN NO [facility] 09-14-2021 08:00-0400 Body temperature 97.3 [degF] PHYSICIAN NO [facility] 09-11-2021 21:30-0400 Body height 165.1 cm PHYSICIAN NO [facility] 09-11-2021 21:30-0400 Body weight 111.13 kg PHYSICIAN NO [facility] 07-17-2021 11:18-0400 Diastolic blood pressure 80 mm[Hg] Jagdish Dunn [facility] 07-17-2021 11:18-0400 Heart rate 82 /min Jagdish Dunn [facility] 07-17-2021 11:18-0400 Respiratory rate 82 /min Jagdish Dunn [facility] 07-17-2021 11:18-0400 SaO2% (BldA) [Mass fraction] 99 % Jagdish Dunn [facility] 07-17-2021 11:18-0400 Systolic blood pressure 131 mm[Hg] Jagdish Dunn [facility] 07-17-2021 09:28-0400 Body temperature 97.88 [degF] Jagdish Dunn [facility] 07-17-2021 09:28-0400 Diastolic blood pressure 98 mm[Hg] Jagdish Dunn [facility] 07-17-2021 09:28-0400 Heart rate 85 /min Jagdishmiguel ángel Dunn [facility] 07-17-2021 09:28-0400 Respiratory rate 18 /min Jagdish Dunn [facility] 07-17-2021 09:28-0400 SaO2% (BldA) [Mass fraction] 98 % Jagdish Dunn [facility] 07-17-2021 09:28-0400 Systolic blood pressure 145 mm[Hg] Jagdishmiguel ángel Dunn [facility] 06-13-2021 12:30-0400 Hourly Rounding Una Foote [facility] Comment on above: Result Comment: Pt eats her entire lunch without nausea; states the protonix took her nausea away. 06-13-2021 10:45-0400 Blood Pressure Location Una Foote [facility] 06-13-2021 10:45-0400 Diastolic blood pressure 77 mm[Hg] Una Foote [facility] 06-13-2021 10:45-0400 Heart rate 81 /min Una Foote [facility] 06-13-2021 10:45-0400 Mean blood pressure 92 mm[Hg] Una Foote [facility] 06-13-2021 10:45-0400 Respiratory rate 20 /min nUa Foote [facility] 06-13-2021 10:45-0400 Systolic blood pressure 122 mm[Hg] Una Foote [facility] 06-13-2021 10:06-0400 Body temperature 98.06 [degF] Una Foote [facility] 06-13-2021 10:06-0400 Diastolic blood pressure 79 mm[Hg] Una Foote [facility] 06-13-2021 10:06-0400 Heart rate 83 /min Una Foote [facility] 06-13-2021 10:06-0400 Mean blood pressure 96 mm[Hg] Una Foote [facility] 06-13-2021 10:06-0400 Respiratory rate 20 /min Una Foote [facility] 06-13-2021 10:06-0400 Systolic blood pressure 131 mm[Hg] Una Foote [facility] 06-13-2021 10:00-0400 Blood Pressure Location Una Foote [facility] 06-04-2021 16:17-0400 Diastolic blood pressure 77 mm[Hg] [facility] 06-04-2021 16:17-0400 Heart rate 92 /min [facility] 06-04-2021 16:17-0400 Mean blood pressure 90 mm[Hg] [facility] 06-04-2021 16:17-0400 Respiratory rate 15 /min [facility] 06-04-2021 16:17-0400 SaO2% (BldA) [Mass fraction] 97 % [facility] 06-04-2021 16:17-0400 Systolic blood pressure 117 mm[Hg] [facility] 06-04-2021 15:07-0400 Diastolic blood pressure 86 mm[Hg] [facility] 06-04-2021 15:07-0400 Heart rate 99 /min [facility] 06-04-2021 15:07-0400 Mean blood pressure 106 mm[Hg] [facility] 06-04-2021 15:07-0400 Respiratory rate 17 /min [facility] 06-04-2021 15:07-0400 SaO2% (BldA) [Mass fraction] 100 % [facility] 06-04-2021 15:07-0400 Systolic blood pressure 146 mm[Hg] [facility] 06-04-2021 14:34-0400 Body temperature 98.6 [degF] [facility] 06-04-2021 14:34-0400 Diastolic blood pressure 87 mm[Hg] [facility] 06-04-2021 14:34-0400 Heart rate 105 /min [facility] 06-04-2021 14:34-0400 Mean blood pressure 108 mm[Hg] [facility] 06-04-2021 14:34-0400 Respiratory rate 18 /min [facility] 06-04-2021 14:34-0400 SaO2% (BldA) [Mass fraction] 96 % [facility] 06-04-2021 14:34-0400 Systolic blood pressure 149 mm[Hg] [facility] 05-13-2021 12:49-0400 Body temperature 97.7 [degF] Ariadne Murray [facility] 05-13-2021 12:49-0400 Diastolic blood pressure 70 mm[Hg] Ariadne Murray [facility] 05-13-2021 12:49-0400 Heart rate 88 /min Ariadne Murray [facility] 05-13-2021 12:49-0400 SaO2% (BldA) [Mass fraction] 98 % Ariadne Murray [facility] 05-13-2021 12:49-0400 Systolic blood pressure 110 mm[Hg] Ariadne Murray [facility] Encounters Encounter Date Encounter Type Care Provider Facility Start: 10-18-2024 End: 10-18-2024 Documentation procedure Krista Cruz RN Work Phone: [facility] Start: 10-17-2024 End: 10-17-2024 Clinisync Result Encounter Zack Angel DO Work Phone: [facility] External Department Unsolicited Start: 10-17-2024 End: 10-17-2024 Clinisync Result Encounter Zack Angel DO Work Phone: [facility] External [facility] Unsolicited Start: 10-17-2024 End: 10-17-2024 flow sheet Zack Shaverzio DO Work Phone: [facility] Comment on above: 32 weeks gestation o f ([facility]); Third trimester ([facility]); Hypertension affecting in third trimester ([facility]); Diet controlled gestational diabetes mellitus (GDM), antepartum ([facility]); Gestational diabetes mellitus (GDM), antepartum, gestational diabetes method of control unspecified ([facility]); Elevated glucose tolerance test; induced hypertension, antepartum ([facility]) Start: 10-17-2024 End: 10-17-2024 ambulatory ZACK ANGEL Not Available Start: 10-11-2024 End: 10-11-2024 Chart abstracting Scanning Provider External [facility] Start: 10-10-2024 End: 10-10-2024 Clinisync Result Encounter Zack Angel DO Work Phone: [facility] Unsolicited Start: 10-10-2024 End: 10-10-2024 Clinisync Result Encounter Zack Angel DO Work Phone: [facility] External [facility] Unsolicited Start: 10-08-2024 End: 10-08-2024 ambulatory ZACK ANGEL Not Available Start: 10-08-2024 End: 10-08-2024 flow sheet Zack Angel DO Work Phone: [facility] Comment on above: Third trimester preg perez ([facility]); 31 weeks gestation of ([facility]); Hypertension affecting in third trimester ([facility]) Start: 10-08-2024 End: 10-08-2024 Bamboo flowsheet Zack Angel DO Work Phone: [facility] Start: 10-08-2024 End: 10-08-2024 Bamboo flowsheet Zack Angel DO Work Phone: [facility] Start: 10-04-2024 End: 10-04-2024 Clinisync Result Encounter Zack Angel DO Work Phone: [facility] External Department Unsolicited Start: 10-04-2024 End: 10-04-2024 Clinisync Result Encounter Zack Angel DO Work Phone: [facility] External [facility] Unsolicited Start: 10-03-2024 End: 10-03-2024 flow sheet Zack Angel DO Work Phone: [facility] Comment on above: Third trimester preg perez ([facility]); Diet controlled gestational diabetes mellitus (GDM), antepartum ([facility]); Gestational diabetes mellitus (GDM), antepartum, gestational diabetes method of control unspecified ([facility]) Start: 10-03-2024 End: 10-03-2024 Clinisync Result Encounter Zack Angel DO Work Phone: [facility] Unsolicited Start: 10-03-2024 End: 10-03-2024 Clinisync Result Encounter Zack Angel DO Work Phone: [facility] External [facility] Unsolicited Start: 10-03-2024 End: 10-03-2024 ambulatory ZACK ANGEL Not Available Start: 09-17-2024 End: 09-17-2024 Bamboo flowsheet Gwen SAAVEDRA Work Phone: [facility] Start: 09-17-2024 End: 09-17-2024 Bamboo flowsheet Gwen SAAVEDRA Work Phone: [facility] Start: 09-17-2024 End: 09-17-2024 flow sheet Gwen SAAVEDRA Work Phone: [facility] Comment on above: Size of fetus incons istent with dates in second trimester ([facility]) (Primary Dx); 28 weeks gestation of ([facility]) Start: 09-17-2024 End: 09-17-2024 ambulatory GWEN MCCORMICK Not Available Start: 08-29-2024 End: 08-29-2024 ambulatory ZACK ANGEL Not Available Start: 08-21-2024 End: 08-21-2024 Encounter identifier Yixjono Virk DDS Work Phone: [facility] Start: 08-20-2024 End: 08-20-2024 ambulatory ZACK ANGEL Not Available Start: 08-20-2024 End: 08-20-2024 Patient encounter procedure Zack Angel DO Work Phone: [facility] Start: 08-20-2024 End: 08-20-2024 Periodic preventive med est patient 18-39 yrs Zack Angel DO Work Phone: [facility] Comment on above: Well woman exam with routine gynecological exam; Second trimester ([facility]); 24 weeks gestation of ([facility]); Exposure to STD; Need for maternal serum alpha-protein (MSAFP) screening ([facility]); Encounter for follow-up ultrasound of anatomy ([facility]) Start: 08-20-2024 End: 08-20-2024 Bamboo flowsheet Zack Angel DO Work Phone: [facility] Start: 08-20-2024 End: 08-23-2024 Bamboo flowsheet Zack Angel DO Work Phone: [facility] Start: 08-20-2024 End: 08-23-2024 Clinisync Result Encounter Zack Angel DO Work Phone: [facility] External Department Unsolicited Start: 08-20-2024 End: 08-21-2024 External Result Encounter Zack Angel DO Work Phone: [facility] External Department Unsolicited Start: 08-15-2024 End: 08-15-2024 Encounter identifier Bishnu Virk DDS Work Phone: [facility] Start: 08-15-2024 End: 08-15-2024 comprehensive oral evaluation - new or established patient Bishnu Virk DDAldo Work Phone: [facility] Start: 08-01-2024 ambulatory Bishnu Virk [facility] Start: 07-23-2024 End: 07-23-2024 ambulatory GWEN MCCORMICK Not Available Start: 07-23-2024 End: 07-23-2024 flow sheet Gwen SAAVEDRA Work Phone: [facility] Comment on above: Second [...] Not Available Start: 04-27-2024 End: 04-27-2024 ambulatory ICE DELIVERY DRIVER-C REY ALAS Facility:[facility] Start: 04-25-2024 ambulatory ICE DELIVERY DRIVER-C REY ALAS Facility:[facility] Start: 04-18-2024 End: 04-18-2024 Emergency department patient visit Alva Jo [facility] Start: 11-07-2023 ambulatory ICE DELIVERY DRIVER-C REY ALAS Facility:[facility] Start: 10-19-2023 End: 10-19-2023 ambulatory ICE DELIVERY DRIVER-C REY ALAS Facility:[facility] Start: 10-19-2023 End: 10-19-2023 Patient encounter procedure REY ALAS [facility] Start: 10-10-2023 End: 10-10-2023 ambulatory ICE DELIVERY DRIVER-C REY ALAS Facility:[facility] Start: 10-10-2023 End: 10-10-2023 Patient encounter procedure REY ALAS [facility] Start: 07-25-2023 End: 07-25-2023 ambulatory ICE DELIVERY DRIVER-C REY ALAS Facility:[facility] Start: 07-25-2023 End: 07-25-2023 Patient encounter procedure REY ALAS [facility] Start: 07-08-2023 End: 07-08-2023 Emergency department patient visit Jagdish Dunn [facility] Start: 07-06-2023 End: 07-06-2023 ambulatory ICE DELIVERY DRIVER-C REY ALAS Facility:[facility] Start: 07-06-2023 End: 07-06-2023 Patient encounter procedure REY ALAS [facility] Start: 01-14-2023 End: 01-14-2023 Patient encounter procedure Ricarda Garcia [facility] Start: 01-11-2023 End: 01-11-2023 Emergency department patient visit Jagdish Dunn [facility] Start: 01-08-2023 End: 01-08-2023 Emergency department patient visit Alva Jo [facility] Start: 01-06-2023 End: 01-06-2023 Emergency department patient visit Jesus Ayers [facility] Start: 10-17-2022 End: 10-17-2022 Emergency department patient visit Jagdish Dunn [facility] Start: 02-17-2022 End: 02-17-2022 Emergency department patient visit Jagdish Dunn [facility] Start: 11-10-2021 End: 11-10-2021 Emergency department patient visit Jesus Ayers [facility] Start: 09-11-2021 End: 09-14-2021 Evaluation and management of inpatient Presley Timmons [facility] Start: 09-11-2021 End: 09-14-2021 Evaluation and management of inpatient PHYSICIAN ALEXIS [facility] [address] Start: 08-14-2021 End: 09-14-2021 Pre-admission assessment Presley Timmons [facility] Start: 08-12-2021 End: 08-12-2021 Lab Drop off Presley Timmons [facility] Start: 07-17-2021 End: 07-17-2021 Emergency department patient visit Jagdish Dunn [facility] Start: 07-02-2021 End: 07-02-2021 Patient encounter procedure Jennifer LEBRONMAN [facility] Start: 06-14-2021 End: 07-15-2021 Pre-admission assessment Una Foote [facility] Start: 06-13-2021 End: 06-13-2021 OB Triage Una Foote [facility] Start: 06-04-2021 End: 06-04-2021 Emergency department patient visit Alva Jo [facility] Start: 05-30-2021 End: 05-30-2021 Patient encounter procedure Presley Timmons [facility] Start: 2021 End: 06-14-2021 Pre-admission assessment Presley Timmons [facility] Start: 05-13-2021 End: 05-13-2021 Patient encounter procedure Ariadne [facility] Start: 02-11-2021 End: 02-11-[address] RORO GARNER Facility:H1 Procedures Date Procedure Procedure Detail Performing Clinician Start: 10-17-2024 Urnls dip stick/tabl et rgnt non-auto w/o micrscp Zack Angel DO Work Phone: Start: 10-17-2024 US OB BPP W NON-STRESS Zack Angel [...] Fa zio DO Work Phone: Start: 10-03-2024 OB BPP W NON-STRESS Zack Angel DO [...] Basic metabolic pane l calcium total Zack Ortiz DO Work Phone: Start: 10-03-2024 CBC W Auto Different ial panel - Blood Zack Ortiz [facility] Work Phone: Start: 10-03-2024 Hepatic function panel Zack Ortiz [facility] Work Phone: Start: 08-21-2024 End: 08-21-2024 Documentation of current medications Bishnu Virk Everest Work Phone: Start: 08-21-2024 End: 08-21-2024 extraction, erupted tooth or exposed root (elevation and/or forceps removal) Choruseverette Virk Everest Work Phone: Start: 08-21-2024 End: 08-21-2024 nutritional counseling for control of dental disease Choruseverette Virk Everest Work Phone: Start: 08-21-2024 End: 08-21-2024 oral hygiene instructions Choruseverette Virk Everest Work Phone: Start: 08-20-2024 RECURRENT VAGINITIS (HTRX) Zack GT [facility] Work Phone: Start: 08-20-2024 Urnls dip stick/tabl et rgnt non-auto w/o micrscp [employer]phong [employer] Work Phone: Start: 08-20-2024 IGP,APTIMA HPV,AGE GDLN Zack [employer] Work Phone: Start: 08-20-2024 Microscopic observat ion [Identifier] in Cervix by Cyto stain Gwen SAAVEDRA Work Phone: Start: 08-15-2024 End: 08-15-2024 bitewings - three radiographic images Bishnu Virk Everest Work Phone: Start: 08-15-2024 End: 08-15-2024 Documentation of current medications Bishnu Virk Everest Work Phone: Start: 08-15-2024 End: 08-15-2024 oral hygiene instructions Bishnu Virk DDS Work Phone: Start: 08-15-2024 End: 08-15-2024 panoramic radiographic image Bishnu Ko DS Work Phone: Start: 07-24-2024 Urnls dip stick/tabl et rgnt non-auto w/o micrscp Gwen SAAVEDRA Work Phone: Start: 06-18-2024 Urnls dip stick/tabl et rgnt non-auto w/o micrscp Zack Angel DO Work Phone: Start: 2024 [facility] DRUG SCREEN RAPI D (URINE) Zack Angel DO Work Phone: Start: 05-24-2024 BOX TEST Zack Fazi o DO Work Phone: Start: 05-22-2024 Urine test visual color cmprsn meths Zack Angel DO Work Phone: Cholecystectomy Ariadne Murray denies Ariadne Murray SARS Antigen (LFIA) PHYSICIA N NO FAMILY Plan of Treatment Date Care Activity Detail Author Start: 09-14-2031 DTaP,Tdap and Td Vac cines (3 - Td or Tdap) DTaP,Tdap and Td Vaccines (3 - Td or Tdap) [facility] [employer] [facility] Start: 08-20-2029 Screening for malign ant neoplasm of cervix [facility] Start: 08-21-2027 Screening for malign ant neoplasm of cervix Pap Smear [facility] [employer] [facility] Start: 10-04-2025 Adult BMI Screening Adult BMI Screen ing [facility] [employer] [facility] Start: 10-24-2024 End: 10-24-2024 Patient encounter procedure 10/24/2024 1:20 PM EDT Office Visit GREG Durán OBCRIS [address] [place] [address] Gwen Mccormick PA [address] [place] [address] GREG MANZANO Start: 10-18-2024 End: 10-18-2024 ambulatory 10/18/2024 1:30 PM EDT Support Visit Maternal- Medicine at [facility] [address] [place] [address] Krista Cruz RN [address] [facility], [address] [place] [address], [place] [address] Laura Weaver LD Maternal- Medicine at [facility] Start: 10-17-2024 End: 10-17-2025 Alanine aminotransferase [Enzymatic activity/volume] in Serum or Plasma ALT Lab Routine induced hypertension, antepartum (HHS-HCC) Expected: 10/17/2024 (Approximate), Expires: 10/17/2025 [facility] Comment on above: Expected: 10/17/2024 (Approximate), Expires: 10/17/2025 Start: 10-17-2024 End: 10-17-2025 Aspartate aminotransferase [Enzymatic activity/volume] in Serum or Plasma AST Lab Routine induced hypertension, antepartum (HHS-HCC) Expected: 10/17/2024 (Approximate), Expires: 10/17/2025 [facility] Comment on above: Expected: 10/17/2024 (Approximate), Expires: 10/17/2025 Start: 10-17-2024 End: 10-17-2025 CBC W Auto Differential panel - Blood CBC and differential Lab Routine induced hypertension, antepartum (HHS-HCC) Expected: 10/17/2024 (Approximate), Expires: 10/17/2025 [facility] Comment on above: Expected: 10/17/2024 (Approximate), Expires: 10/17/2025 Start: 10-17-2024 End: 10-17-2025 Creatinine [Mass/volume] in Serum or Plasma Creatinine Lab Routine induced hypertension, antepartum (HHS-HCC) Expected: 10/17/2024 (Approximate), Expires: 10/17/2025 [facility] Work Phone: Comment on above: Expected: 10/17/2024 (Approximate), Expires: 10/17/2025 Start: 10-17-2024 End: 10-17-2025 Urea nitrogen [Mass/volume] in Serum or Plasma BUN Lab Routine induced hypertension, antepartum (HHS-HCC) Expected: 10/17/2024, Expires: 10/17/2025 [facility] Comment on above: Expected: 10/17/2024 , Expires: 10/17/2025 Start: 10-17-2024 End: 02-16-2025 US for US OB follow up transabdominal approach Imaging Routine Hypertension affecting in third trimester (HHS-HCC) Diet controlled gestational diabetes mellitus (GDM), antepartum (HHS-HCC) induced hypertension, antepartum (HHS-HCC) Expected: 10/17/2024, Expires: 02/16/2025 [facility] Comment on above: Expected: 10/17/2024 , Expires: 02/16/2025 Start: 10-17-2024 End: 10-17-2024 Patient encounter procedure 10/17/2024 1:30 PM EDT Routine GREG MANZANO [address] [place] [address] Zack Ortiz DO [address] [place] [address] GREG Durán [employer] Start: 10-15-2024 COVID-19 Vaccine ( season) COVID-19 Vaccine ( season) [facility] Start: 10-15-2024 Influenza vaccination N [facility] Start: 10-03-2024 End: 04-05-2025 US biophysical profile w non stress test US biophysical profile w non stress test Imaging Routine Gestational diabetes mellitus (GDM), antepartum, gestational diabetes method of control unspecified (HHS-HCC) Expected: 10/03/2024 (Approximate), Expires: 04/05/2025 [facility] Work Phone: Comment on above: Expected: 10/03/2024 (Approximate), Expires: 04/05/2025 Start: 09-20-2024 End: 09-20-2024 US for US OB limited 1+ fetuses Imaging Routine Encounter for follow-up ultrasound of anatomy ([facility]) Expected: 09/20/2024, Expires: 09/20/2024 [facility] Work Phone: Comment on above: Expected: 09/20/2024 , Expires: 09/20/2024 Start: 09-17-2024 End: 01-17-2025 US for US OB follow up transabdominal approach Imaging Routine Size of fetus inconsistent with dates in second trimester ([facility]) Expected: 09/17/2024, Expires: 01/17/2025 [facility] Work Phone: Comment on above: Expected: 09/17/2024 , Expires: 01/17/2025 Start: 09-17-2024 End: 09-17-2024 Patient encounter procedure [facility] Comment on above: Arrived Start: 09-05-2024 Sabrina Richmond [facility] Work Phone: Start: 08-29-2024 End: 08-29-2024 Professional / ancillary services management 08/29/2024 1:00 PM EDT Ancillary Procedure [facility] [address] [place] [address] [facility] Start: 08-21-2024 [facility] Work Phone: Start: 08-20-2024 End: 08-20-2024 Patient encounter procedure 08/20/2024 2:10 PM EDT Routine [facility] [address] [place] [address] Zack Ortiz DO [address] [place], [place] [id number] [facility] Start: 08-15-2024 [facility] Work Phone: Start: 07-23-2024 End: 07-23-2024 Patient encounter procedure 07/23/2024 2:30 PM EDT Routine [facility] [address] [place] [phone] Gwen Mccormick PA [address] [place] [address] [facility] Start: 07-23-2024 End: 08-22-2024 Alpha fetoprotein, maternal Alpha fetoprotein, maternal Lab Routine Need for maternal serum alpha-protein (MSAFP) screening Expected: 07/23/2024 (Approximate), Expires: 08/22/2024 [facility] Work Phone: Comment on above: Expected: 07/23/2024 (Approximate), Expires: 08/22/2024 Start: 07-23-2024 End: 07-23-2024 Professional / ancillary services management 07/23/2024 1:30 PM EDT Ancillary Procedure [facility] [address] [place] [id number] [facility] Start: 06-18-2024 End: 09-18-2024 US for US OB 14+ weeks anatomy scan Imaging Routine Screening, , for anatomic survey Expected: 06/18/2024, Expires: 09/18/2024 [facility] Work Phone: Comment on above: Expected: 06/18/2024 , Expires: 09/18/2024 Start: 06-18-2024 End: 06-18-2024 Patient encounter procedure [facility] Comment on above: Arrived Start: 2024 Screening for malign ant neoplasm of cervix [facility] Start: 05-18-2024 End: 05-18-2025 ABO/Rh ABO/Rh Lab Routine Missed menses , unspecified gestational age Expected: 05/18/2024 (Approximate), Expires: 05/18/2025 [facility] Comment on above: Expected: 05/18/2024 (Approximate), Expires: 05/18/2025 Start: 05-18-2024 End: 04-04-2026 Blood type and Indirect antibody screen panel - Blood Type and screen Lab Routine Missed menses , unspecified gestational age Expected: 05/18/2024 (Approximate), Expires: 05/18/2025 [facility] Work Phone: Comment on above: Expected: 05/18/2024 (Approximate), Expires: 05/18/2025 Start: 05-18-2024 End: 05-18-2025 Drugs of abuse panel - Urine by Screen method Rapid drug screen, urine Lab Routine , unspecified gestational age Encounter for supervision of normal first in first trimester Expected: 05/18/2024 (Approximate), Expires: 05/18/2025 [facility] Comment on above: Expected: 05/18/2024 (Approximate), Expires: 05/18/2025 Start: 10-16-2023 COVID-19 Vaccine () COVID-19 Vaccine () [facility] Start: 09-14-2021 [facility] Work Phone: Start: 09-12-2021 Hospital admission [facility] Work Phone: Start: 09-11-2021 Delivery of Products of Conception, External Approach Delivery of Products of Conception, External [facility] Start: 09-11-2021 Division of Female Perineum, External Approach Division of Female Perineum, External Approach [facility] Start: 09-11-2021 Drainage of Amniotic Fluid, Therapeutic from Products of Conception, Via Natural or Artificial Opening Drainage of Amniotic Fluid, Therapeutic from Products of Conception, Via Natural or Artificial Opening [facility] Start: 05-28-2015 Screening for malign ant neoplasm of cervix Pap Smear [facility] Start: 2012 Adult BMI Follow Up Plan Adult BMI Follow Up Plan [facility] Start: 2006 Depression Screening Depression Scre ening [facility] Start: 2006 Tobacco Screening Tobacco Screening [facility] Bacteria identified in Urine by Culture Urine culture Microbiology Routine Missed menses Ordered: 05/18/2024 [facility] Comment on above: Ordered: 05/18/2024 CBC W Auto Different ial panel - Blood CBC and differential Lab Routine Missed menses , unspecified gestational age Ordered: 05/18/2024 [facility] Comment on above: Ordered: 05/18/2024 CHLAMYDIA TRACHOMATI S (GENITO/STI) CHLAMYDIA TRACHOMATIS (GENITO/STI) Lab Routine Exposure to STD Ordered: 08/20/2024 [facility] Comment on above: Ordered: 08/20/2024 Cytology Cervical or vaginal smear or scraping study Pap Smear Pathology and Cytology Routine Well woman exam with routine gynecological exam Ordered: 08/20/2024 [facility] Comment on above: Ordered: 08/20/2024 Hemoglobin A1c/Hemoglobin.total in Blood Hemoglobin A1c Lab Routine Missed menses , unspecified gestational age Ordered: 05/18/2024 [facility] Comment on above: Ordered: 05/18/2024 Hepatitis B virus breaux rface Ag [Presence] in Serum or Plasma by Immunoassay Hepatitis B surface antigen Lab Routine Missed menses , unspecified gestational age Ordered: 05/18/2024 [facility] Comment on above: Ordered: 05/18/2024 Hepatitis C virus Ab [Presence] in Serum or Plasma by Immunoassay Hepatitis C antibody Lab Routine Missed menses , unspecified gestational age Ordered: 05/18/2024 [facility] Comment on above: Ordered: 05/18/2024 HIV-1/HIV-2 antigen/antibody combination immunoassay HIV-1 and HIV-2 antibodies Lab Routine Missed menses , unspecified gestational age Ordered: 05/18/2024 [facility] Comment on above: Ordered: 05/18/2024 Human papilloma viru s DNA [Presence] in Unspecified specimen by Probe with amplification HPV DNA probe, amplified Microbiology Routine Well woman exam with routine gynecological exam Ordered: 08/20/2024 [facility] Comment on above: Ordered: 08/20/2024 Neisseria gonorrhoea e DNA [Presence] in Unspecified specimen by [facility] with probe detection Neisseria gonorrhea DNA probe, direct Lab Routine Exposure to STD Ordered: 08/20/2024 [facility] Comment on above: Ordered: 08/20/2024 Patient Education Post- Di jelani Instructions ([facility]) [facility] Work Phone: Patient referral [facility] Work Phone: Reagin Ab [Presence] in Serum by RPR RPR Lab Routine Missed menses , unspecified gestational age Ordered: 05/18/2024 [facility] Comment on above: Ordered: 05/18/2024 Rubella antibody, IgG Rubella an tibody, IgG Lab Routine Missed menses , unspecified gestational age Ordered: 05/18/2024 [facility] Comment on above: Ordered: 05/18/2024 SURESWAB(R) ADVANCED VAGINITIS PLUS, TMA SURESWAB(R) ADVANCED VAGINITIS PLUS, TMA Pathology and Cytology Routine Exposure to STD Ordered: 08/20/2024 [facility] Comment on above: Ordered: 08/20/2024 Immunizations Immunization Date Immunization Notes Care Provider Sivakumar raines 09-13-2021 tetanus toxoid, reduced diphtheria toxoid, and acellular pertussis vaccine, adsorbed PHYSICIAN ALEXIS [facility] 10-09-2020 SARS-CoV-2 (COVID-19 ) [id number] vaccine Ricarda Garcia [facility] Comment on above: Result Comment: 2022: TPVAL 09-29-2020 tetanus toxoid, reduced diphtheria toxoid, and acellular pertussis vaccine, adsorbed; Translations: [Boostrix (Tdap)] Ariadne Murray [facility] Comment on above: Result Comment: (L) deltoid Result Comment: (L) deltoid 11-26-2011 influenza virus vaccine, unspecified formulation Ricarda Garcia [facility] 02-12-2004 influenza virus vaccine, unspecified formulation Ricarda Garcia [facility] 03-01-2003 influenza virus vaccine, unspecified formulation Ricarda Garcia [facility] 12-17-1996 varicella virus vaccine Ricarda Garcia [facility] 10-19-1995 DTaP, unspecified formulation Ricarda Garcia [facility] 10-19-1995 haemophilus influenzae type b vaccine, PRP-T conjugate Ricarda Garcia [facility] 06-21-1995 measles, mumps and rubella virus vaccine Ricarda Garcia [facility] 03-09-1995 hepatitis B vaccine, pediatric or pediatric/adolescent dosage Ricarda Garcia [facility] 1994 DTaP, unspecified formulation Ricarda Garcia [facility] 1994 haemophilus influenzae type b vaccine, PRP-T conjugate Ricarda Garcia [facility] 1994 poliovirus vaccine, unspecified formulation Ricarda Garcia [facility] 1994 DTaP, unspecified formulation Ricarda Garcia [facility] 1994 haemophilus influenzae type b vaccine, PRP-T conjugate Ricarda Garcia [facility] 1994 hepatitis B vaccine, pediatric or pediatric/adolescent dosage Ricarda Garcia [facility] 1994 poliovirus vaccine, unspecified formulation Ricarda Garcia [facility] 1994 DTaP, unspecified formulation Ricarda Garcia [facility] 1994 haemophilus influenzae type b vaccine, PRP-T conjugate Ricarda Garcia [facility] 1994 hepatitis B vaccine, pediatric or pediatric/adolescent dosage Ricarda Garcia [facility] 1994 poliovirus vaccine, unspecified formulation Ricarda Jose [facility] NEGATED: Highlighted row has not occurred!10-04-2024 tetanus toxoid, reduced diphtheria toxoid, and acellular pertussis vaccine, adsorbed Scanning External [facility] NEGATED: Highlighted row has not occurred!07-06-2023 influenza virus vaccine, unspecified formulation REY ALAS [facility] [place] Payers Date Payer Category Payer Private Health Insurance [facility] [id number] 2024 Medicaid O [employer] [id number] 2024 Medicaid MEDICAID [facility] er [id number] 2024 Medicaid [id number] 2024 [employer] Blue [employer] Managed Care - Other ANTHEM [id number] 2023 [employer] Blue Shie [employer] Managed Care - PPO ANTHEM [id number] 2021 Self-pay 2021 Unknown [id number] 2021 [employer] Blue Shield [id number] 2021 Unknown [id number] 1994 Unknown [id number] 2.16.840.1.966802.3.579.2. 593 1994 Unknown [id number] 2.16.840.1.409580.3.579.2. 727 1994 Unknown [id number] 2.16.840.1.989815.3.579.2. 727 1994 Unknown [id number] 2.16.840.1.706823.3.579.2. 72 1994 Unknown [id number] 2.16.840.1.971252.3.579.2. 727 1994 Unknown [id number] 2.16.840.1.716362.3.579.2. 727 1994 Unknown [id number] 2.16.840.1.539220.3.579.2. 727 1994 Unknown [id number] 2.16.840.1.623696.3.579.2. 72 1994 Unknown [id number] 2.16.840.1.656734.3.579.2. 727 1994 Unknown [id number] 2.16.840.1.925817.3.579.2. 727 1994 Unknown [id number] 2.16.840.1.168300.3.579.2. 727 1994 Unknown [id number] 2.16.840.1.756968.3.579.2. 716 1994 Unknown [id number] 2.16.840.1.123183.3.579.2. 1259 1994 Unknown [id number] 2.16.840.1.454917.3.579.2. 1258 1994 Unknown [id number] 2.16.840.1.844190.3.579.2. 1258 1994 Unknown [id number] 2.16.840.1.999469.3.579.2. 1258 1994 Unknown [id number] 2.16.840.1.624201.3.579.2. 1258 1994 Unknown [id number] 2.16.840.1.368680.3.579.2. 1258 1994 Unknown [id number] 2.16.840.1.892481.3.579.2. 1258 1994 Unknown [id number] 2.16.840.1.304246.3.579.2. 1258 1994 Unknown [id number] 2.16.840.1.020132.3.579.2. 1258 1994 Unknown [id number] 2.16.840.1.916213.3.579.2. 1258 1994 Unknown [id number] 2.16.840.1.343566.3.579.2. 1258 1994 Unknown [id number] 2.16.840.1.273970.3.579.2. 9 1959 Unknown [id number] Unknown [id number] 2.16.840.1.850793.3.579.2. 531 Social History Date Type Detail Facility Start: 10-03-2020 End: 07-06-2023 Tobacco smoking status Never smoked tobacco (finding) [facility] Tobacco smoking status Never [facility] Start: 07-25-2018 End: 08-15-2015 Sex Assigned At Female [facility] Start: 1994 [facility] Assigned [facility] Start: 08-15-2024 End: 08-21-2024 Tobacco smoking status NHIS Tobacco smoking consumption unknown [facility] Start: 03-15-2024 [facility] Start: 05-17-2024 Gender identity Identifies as female gender (finding) [facility] Start: 05-17-2024 Sexual orientation Bisexual (finding) [facility] Start: 08-15-2024 Alcohol intake Alcohol Use Details [facility] Sexual Orientation Straight or heterosexu al [facility] Work Phone: Start: 07-25-2018 History of Social function [facility] Start: 1994 Sex assigned at Not on file [facility] [employer] [facility] Start: 09-17-2014 Sex Female (finding) [facility] Medical Equipment Procedure Code Equipment Code Equipment Origin al Text Equipment Identifier Dates 1 strip by In Vi tro route Daily Use in the morning prior to breakfast, 1 hour after each meal for a total of 4times daily. [id number] Start: 06-18-2024 End: 07-18-2024 1 each by In Vit ro route Daily Use to check FSBS four times daily [id number] Start: 06-18-2024 End: 07-18-2024 Use as instructed [id number] Start: 10-03-2024 End: 10-03-2024 1 strip by In Vi tro route Daily Use in the morning prior to breakfast, 1 hour after each meal for a total of 4times daily. [id number] Start: 10-17-2024 End: 11-16-2024 1 each by In Vit ro route Daily Use to check FSBS four times daily [id number] Start: 10-17-2024 End: 11-16-2024 Goals Date Patient Goal Desired Activity /State Functional Status Date Assessment Result Facility 04-18-2024 Functional Status N/A [facility] 10-10-2023 Functional Status N/A [facility] 07-08-2023 Functional Status N/A [facility] 07-06-2023 Functional Status N/A [facility] 01-11-2023 Functional Status N/A [facility] 01-08-2023 Functional Status N/A [facility] 11-23-2023 Functional Status N/A [facility] 10-17-2022 Functional Status N/A [facility] 02-17-2022 Functional Status N/A [facility] 11-10-2021 Functional Status N/A [facility] 09-14-2021 Functional status Patient at Baseline [facility] Work Phone: Mental Status Date Assessment Result Facility 09-14-2021 Cognitive function Cognitive Sta tus Patient at Baseline [facility] Work Phone: Clinical Notes 05-13-2021 to 10-18-2024 Krista Cruz RN - 10/18/2024 2:29 PM Shannon Lang LPN - 10/17/2024 1:30 PM EDPari Randle LPN - 10/08/2024 2:20 PM EDGiovanni Lang LPN - 10/03/2024 2:20 PM EDT Note Date & Type Note Facility 10-18-2024 History of Present illness Narrative Summary: MFM Missed Diabetes GDM Education Class Missed/no show (for) Diabetes Education GDM class this afternoon. documented in this encounter [facility] 10-17-2024 History of Present illness Narrative Reason for Appointment: Patient ID: [...] nursing note reviewed. Exam conducted with a shipping/receiving clerk present. Vitals: Estimated body mass index is 49.33 kg/m as calculated from the following: Height as of 22: 5' 4 . Weight as of this encounter: 287 lb 6.4 oz. BP: 130/82 No LMP recorded. Patient is . ASSESSMENT & PLAN ICD-10-CM 1. 32 weeks gestation of ([facility]) Z3A.32 POCT urinalysis dipstick manually resulted 2. Third trimester ([facility]) Z34.93 POCT urinalysis dipstick manually resulted 3. Hypertension affecting in third trimester ([facility]) O16.3 US OB follow up transabdominal approach 4. Diet controlled gestational diabetes mellitus (GDM), antepartum ([facility]) O24.410 US OB follow up transabdominal approach 5. Gestational diabetes mellitus (GDM), antepartum, gestational diabetes method of control unspecified ([facility]) O24.419 Lancets Ultra Thin misc Alcohol [...] Glucometer) w/Device kit 7. induced hypertension, antepartum ([facility]) O13.9 Creatinine CBC and differential ALT AST [...] Zack Ortiz DO documented in this encounter [facility] 10-08-2024 History of Present illness Narrative Reason for Appointment: Patient ID: Sabrina Richmond is a 29 y.o. female who presents for Routine Visit Patient presents today for Return OB appointment. MEDICATIONS Current Outpatient Medications Medication Instructions ALBUTEROL IN Alcohol Swabs (Alcohol Prep Pad) 70 % pads 1 Pad, Topical, Daily, Use four times daily to check FSBS. Blood Glucose Monitoring Suppl ([employer] Glucometer) w/Device kit 1 kit, Does not [...] nursing note reviewed. Exam conducted with a shipping/receiving clerk present. Vitals: Estimated body mass index is 49.33 kg/m as calculated from the following: Height as of 22: 5' 4 . Weight as of this encounter: 287 lb 6.4 oz. BP: (!) 142/100 No LMP recorded. Patient is . ASSESSMENT & PLAN ICD-10-CM 1. Third trimester ([facility]) Z34.93 Urine dip 2. 31 weeks gestation of ([facility]) Z3A.31 Urine dip Patient was seen at [facility] last week. Patient left AMA and was advised that it is recommended that she return to [place] until delivery as instructed. Patient declines and would like to continue locally at this time. Informed patient that if she experiences any symptoms then she is to return to [facility] to be monitored. Patient declines and will increase BP meds to Labetalol 300mg TID. Patient aware that she needs to continue her NST/BPPs and weekly office visits. Patient voiced that she has changed her diet and her diabetes is now under control. Documented by Nayeli Randle LPN on behalf of: Zack Ortiz DO documented in this encounter [facility] 10-03-2024 History of Present illness Narrative Reason for Appointment: Patient ID: [...] nursing note reviewed. Exam conducted with a shipping/receiving clerk present. Vitals: Estimated body mass index is 50.98 kg/m as calculated from the following: Height as of 10/28/21: 5' 4 . Weight as of this encounter: 297 lb. BP: (!) 154/100 No LMP recorded. Patient is . ASSESSMENT & PLAN ICD-10-CM 1. Third trimester ([facility]) Z34.93 POCT urinalysis dipstick manually resulted 2. Diet controlled gestational diabetes mellitus (GDM), antepartum ([facility]) O24.410 Return OB: Patient presents today [...] on insulin. Pt to be referred to [facility] for diabetic ed and insulin prescription. Pt to start NST/BPP pt bp elevated, pt being sent to [facility] for obs. Orders Placed This Encounter Procedures POCT urinalysis dipstick manually resulted Follow Up: Patient is to return to office in 2 week for routine OB appointment. Documented by Jaen Lang LPN on behalf of: Zack Ortiz DO documented in this encounter [facility] 09-17-2024 History of Present illness Narrative Reason for Appointment: Patient ID: [...] PLAN ICD-10-CM 1. 28 weeks gestation of ([facility]) Z3A.28 Return OB: Patient presents today for [...] of: KERI Velasquez documented in this encounter [facility] 08-21-2024 History of Presen t illness Narrative Encounter Date ext [facility] Work Phone: 1(570) 895-716507-07-2025 History of Present illness Narrative* Berta Yoder [...] to check FSBS. Blood Glucose Monitoring Suppl ([employer] Glucometer) w/Device kit 1 kit, Does not [...] nursing note reviewed. Exam conducted with a shipping/receiving clerk present. Vitals: Estimated body mass index is 47.38 kg/m as calculated from the following: Height as of 10/28/21: 5' 4 . Weight as of 07/23/24: 276 lb. BP: No LMP recorded. Patient is . ASSESSMENT & PLAN ICD-10-CM 1. Well woman exam with routine gynecological exam Z01.419 Pap Smear HPV DNA probe, amplified 2. Second trimester ([facility]) Z34.92 POCT urinalysis dipstick manually resulted 3. 24 weeks gestation of ([facility]) Z3A.24 4. Exposure to STD Z20.2 SURESWAB(R) ADVANCED VAGINITIS PLUS, TMA CHLAMYDIA TRACHOMATIS (GENITO/STI) Neisseria gonorrhea DNA probe, direct 5. Need for maternal serum alpha-protein (MSAFP) screening ([facility]) Z36.1 6. Encounter for follow-up ultrasound of anatomy ([facility]) Z36.2 US OB limited 1+ fetuses [...] behalf of: alexandra Velasquez [id number] History of Present illness Narrative* Encounter Date Complaint History Of Prese nt Illness DL DL [facility] Work Phone: [phone] 559-653706-09-2025 History of Present illness Narrative* KERI Velasquez [...] to check FSBS. Blood Glucose Monitoring Suppl ([employer] Glucometer) w/Device kit 1 kit, Does not [...] nursing note reviewed. Exam conducted with a shipping/receiving clerk present. Vitals: Estimated body mass index is [...] of: Manasa Conroy NP [id number] History of Present illness Narrative* Manasa Conroy [...] nursing note reviewed. Exam conducted with a shipping/receiving clerk present. Vitals: Estimated body mass index is [...] of: Zack Ortiz DO [id number] History of Present illness Narrative* Snehal Lamb [...] or undercooked meat, and stay away from [facility]. Patient has also been advised to [...] by: Snehal Lamb MA documented in [id number] Hospital Discharge instructions Patient Education 04/18/2024 14:10:03 Community-Acquired Pneumonia, Adult, Tmdg-oe-Atkp Community-Acquired Pneumonia, Adult Pneumonia is an infection [...] Follow these instructions at home: Medicines Take fyib-ilg-ndesxwe and prescription medicines only as told by [...] cannot use soap and water, use hand supervisor blood donor recruiters. Contact a doctor if: You have a [...] provider. Document Revised: 03/31/2022 Document Reviewed: 03/31/2022 [employer] Patient Education 2023 [employer]Cam Follow Up Care 04/18/2024 11:38:41 With:REY ALAS Address: [address] [place] [address]- Business (1) When:04/21/2024 13:47:32 Comments:Call Dr for diagnosis based follow up [facility] 03-05-2025 NoteED Patient Education Note Infectious [...] these instructions at home: Medicines ??? Take vnzm-bqg-twxufdu and prescription medicines only as told by [...] cannot use soap and water, use hand supervisor blood donor recruiters. Contact a doctor if: ??? You have [...] lungs. ??? Community-acquired pneumonia (more content not included)...[facility]03-05-2025 Evaluation + Plan noteExtracted from: Title:ED Note Author:Derick MS III, James Merida Date:04/18/24 Pneumonia (J18.9: Pneumonia, unspecified organism) Orders: albuterol, 1 puff(s), Inhalation, q6hr for wheezing, 18 gram, Refill(s) 0, [id number], 165, cm, 04/18/24 11:46:00 EST, Height/Length Dosing, 124.5, kg, 04/18/24 11:46:00 EST, Weight Dosing amoxicillin, 1,000 mg = 2 cap(s), Oral, q12hr, X 7 day(s), # 28 cap(s), Refills(s) 0, Pharmacy: [facility] #[id number], 165, cm, 04/18/24 11:46:00 EST, Height/Length Dosing, 124.5, kg, 04/18/24 11:46:00 EST, Weight Dosing Influenza A&B Ag Rapid COVID Antigen ([facility]) [facility] 05-24-2024 Hospital Discharge instructions Patient Education [...] if you feel dizzy. General instructions Take hkpn-vty-qrgcuir and prescription medicines only as told by [...] provider. Document Revised: 12/31/2020 Document Reviewed: 12/31/2020 [employer] Patient Education 2022 The New York Times. 07/08/2023 14:32:37 Sinus Pain Sinus Pain Sinus [...] to cool or dry air. Medicines Take sofp-qur-gcoeepw and prescription medicines only as told by [...] provider. Document Revised: 01/03/2022 Document Reviewed: 01/03/2022 [employer] Patient Education 2022 The New York Times. Follow Up Care 07/08/2023 12:48:51 With:REY ALAS Address: [address] [place] [address]- Business (1) When:07/11/2023 14:12:36 [facility]05-24-2024 Evaluation + Plan noteExtracted from: Title:ED Note Author:Jarrell King PA-C te:07/08/23 Sinus headache (R51.9: Heada rowan, unspecified) Vertigo (R42: Dizziness and giddiness) Orders: ketorolac, 60 mg = 2 mL, Injection, IntraMuscular, Once, Stop date 07/08/23 13:55:00 EDT, STAT, Start date 07/08/23 13:55:00 EDT, 07/08/23 13:55:00 EDT loratadine-pseudoephedrine, 1 tab(s), Oral, q12hr for 10 day(s), 20 tab(s), Refill(s) 0, [facility]/pharm[facility] #[id number], 165.1, cm, 07/08/23 12:52:00 EDT, Height/Length Dosing, 127, kg, 07/08/23 12:52:00 EDT, Weight Dosing meclizine, 25 mg = 1 tab(s), Oral, TID, PRN for dizziness, # 15 tab(s), Refills(s) 0, Pharmacy: [facility]/pharmacy #[id number], 165.1, cm, 07/08/23 12:52:00 EDT, Height/Length Dosing, 127, kg, 07/08/23 12:52:00 EDT, Weight Dosing meclizine, 25 mg = 2 tab(s), Tab, Oral, Once, Stop date 07/08/23 13:02:00 EDT, STAT, Start date 07/08/23 13:02:00 EDT, 07/08/23 13:02:00 EDT XR Chest Single View Future Appointments Appointment Date:07/25/2023 08:40:00 AM Scheduled Provider:JOAQUÍN RODRIGUEZ Location:[facility] Appointment Type:[facility]05-22-2024 Hospital Discharge instructions Patient Education 07/06/2023 10:09:45 [...] Follow these instructions at home: Medicines Take tait-hfd-lnwumpy and prescription medicines only as told by [...] for Headache and Migraine Patients (CHAMP): headachemigraine.org [place] Mig[employer]: americanmigrainefoundation.org National Headache Foundation: headaches.org [...] provider. Document Revised: 03/19/2020 Document Reviewed: 03/19/2020 [employer] Patient Education 2022 [employer]. Follow Up Care 06/28/2023 15:15:45 With:JOAQUÍN RODRIGUEZ FAM Address: When:4 weeks [facility] [place] 11-28-2023 Hospital Discharge instructions Patient Education 01/11/2023 19:37:18 Cervical Sprain, Bptd-ui-Hubg Cervical Sprain A cervical sprain is also [...] Follow these instructions at home: Medicines Take jeib-vfp-cakjtad and prescription medicines only as told by your doctor. Ask your doctor if the medicine prescribed to you: ?Requires you to avoid driving or using heavy machinery. ?Can cause trouble pooping (constipation). You may need to take these actions to prevent or treat trouble pooping: ?Drink enough fluid to keep your pee (urine) pale yellow. ?Take djyp-xuq-ivifblv or prescription medicines. ?Eat foods that are [...] provider. Document Revised: 05/10/2022 Document Reviewed: 10/10/2019 [employer] Patient Education 2022 The New York Times. Follow Up Care 01/11/2023 15:55:53 With:CROW LYLES DO, FAM Address: When:1 to 2 days Comments:Call today to schedule your follow up [facility]11-25-2023 Hospital Discharge instructions Patient Education 01/08/2023 [...] if you feel dizzy. General instructions Take znwg-gdq-yhbwukk and prescription medicines only as told by [...] provider. Document Revised: 12/31/2020 Document Reviewed: 12/31/2020 [employer] Patient Education 2022 The New York Times. 01/08/2023 18:29:49 General Headache Without Cause General [...] help with your condition: Managing pain Take bxgy-ymp-capwrrn and prescription medicines only as told by [...] provider. Document Revised: 07/01/2021 Document Reviewed: 07/01/2021 [employer] Patient Education 2022 The New York Times. Follow Up Care 01/08/2023 12:35:43 With:Terrell HAN Address: [address], [place] [address]- Business (1) When:01/11/2023 18:19:03 Comments:Return to the emergency room if your headache recurs, fever, vomiting, vision change or any new symptoms. [facility]11-25-2023 Evaluation + Plan noteExtracted from: Title:ED [...] w/o Contrast Extra SST Tube [facility]11-23-2023 Hospital Discharge instructions Follow Up Care 01/06/2023 14:44:33 With:[facility] Address: [place] [address]- Business (1) When:01/09/2023 17:03:00 With:XXXX NONE Address: [place] When:Within 3 Day(s) [facility]11-23-2023 Evaluation + Plan noteExtracted from: Title:ED [...] Tube Influenza A&B Ag Rapid COVID Antigen ([facility]) [facility]09-03-2023 Hospital Discharge instructions Patient Education 10/17/2022 [...] younger than 2 years. Live in a residential. Travel on cruise ships. What are the [...] and water are not available, use hand supervisor blood donor recruiters. Make sure that all people in your household wash their hands well and often. Take vcwk-dtk-meiulpp and prescription medicines only as told by [...] and water are not available, use hand supervisor blood donor recruiters. This information is not intended to replace advice given to you by your health care provider. Make sure you discuss any questions you have with your health care provider. Document Revised: 11/30/2021 Document Reviewed: 11/30/2021 [employer] Patient Education 2022 The New York Times. Follow Up Care 10/17/2022 13:03:17 With:ROOSEVELT FRANK Address: [facility] [address] [address] [facility] (1) When:10/20/2022 17:25:20 Comments:Call the office of [...] any new or worsening symptoms. [facility]09-03-2023 Evaluation + Plan noteExtracted from: Title:ED [...] Patient was discharged home. Jagdish Dunn DO, FAAEM [facility]01-04-2023 Hospital Discharge instructions Patient Education 02/17/2022 [...] if you start to feel better. Take embj-kuw-fkbbtip and prescription medicines only as told by [...] 03/10/2005 Document Revised: 08/03/2018 Document Reviewed: 08/03/2018 [employer] Patient Education 2020 The New York Times. 02/17/2022 21:17:10 Nausea and Vomiting, Adult Nausea [...] water added (diluted fruit juice). Eat bland, zhrn-bb-qdzpts foods in small amounts as you are able. These foods include bananas, applesauce, rice, lean meats, toast, and crackers. Avoid fluids that contain a lot of sugar or caffeine, such as energy drinks, sports drinks, and soda. Avoid alcohol. Avoid spicy or fatty foods. General instructions Take bioq-xkp-xwpeelx and prescription medicines only as told by your health care provider. Drink enough fluid to keep your urine pale yellow. Wash your hands often using soap and water. If soap and water are not available, use hand supervisor blood donor recruiters. Make sure that all people in your [...] eating and drinking to prevent dehydration. Take kdun-pcy-adfdlez and prescription medicines only as told by [...] 01/31/2006 Document Revised: 05/25/2019 Document Reviewed: 07/11/2018 [employer] Patient Education 2020 The New York Times. 02/17/2022 21:17:10 Abdominal Pain, Adult Abdominal Pain, [...] Follow these instructions at home: Medicines Take vuro-oxw-gzxvzeq and prescription medicines only as told by [...] Watch your condition for any changes. Take ndbx-ptw-axaxxju and prescription medicines only as told by [...] 11/10/2005 Document Revised: 06/11/2019 Document Reviewed: 06/11/2019 [employer] Patient Education 2019 The New York Times. Follow Up Care 02/17/2022 15:51:20 With:Hosea John Address: [address] [place] [address] [place] [address]- When:02/20/2022 21:03:18 Comments:Return to the emergency room if your pain gets worse, vomiting, fever or any new symptoms [facility]01-04-2023 Evaluation + Plan noteExtracted from: Title:ED [...] Cult Reflex Addendum by Sandro Ramirez As trijudi H on February 17, 2022 21:20:50 EST The care of the patient was transitioned to [place] upon shift change to follow-up with CT [...] in agreement. Additional diagnosis: Enteritis [facility]09-27-2022 Hospital Discharge instructions Patient Education 11/10/2021 [...] Treatment for this condition includes: Antibiotic medicine. Xqmm-nua-hnouuju medicines to treat discomfort. Drinking enough water [...] Follow these instructions at home: Medicines Take euez-cqv-zweyqlz and prescription medicines only as told by [...] 11/10/2005 Document Revised: 01/18/2019 Document Reviewed: 08/10/2018 [employer] Patient Education 2020 [employer] Follow Up Care 11/10/2021 12:07:08 With:Horacio Link Address: [address] [place] [id number]- Business (1) When:11/13/2021 13:20:06 [facility]09-27-2022 Evaluation + Plan note Diagnostic Tests Pending * Urine Culture 11/10/21 [facility]08-01-2022 Progress note Author Radha [facility] September 14, 2021 10:31am Note Date/Time September 14, 2021 10: 31am [facility] [address] [place], [place] [id number] [employer] COORDINATOR Progress Note Signed Patient: Sabrina Richmond MR#: [id number] : 1995 Acct:[id number] Age/Sex: 26 / F Adm Date: 2 Loc: Room: [address] [place] [address] Type: ADM IN Attending Dr: Presley Timmons [...] feed moving forward. Patient comments: no complaints [place] baby status: doing well and bottle feeding well; no nursing well [place] feeding status: breast and bottle feeding OB [...] % (Auto) 73.9, Lymph % (Auto) 18.5, Grant % (Auto) 6.5, Eos % (Auto) 0.8, Baso % (Auto) 0.3, Neut # (Auto) 9.7 H, Lymph # (Auto) 2.4, Grant # (Auto) 0.9 H, Eos # (Auto) [...] signed by Radha Orona DO> 09/14/21 1031 [facility] Work Phone: 1(703) 574-636107-31-2022 Progress note Author PRESLEY TIMMONS [facility] September 13, 2021 8:54am Note Date/Time September 13, 2021 8:54 am [facility] [address] [place], [place] [id number] [employer] COORDINATOR Progress Note Signed Patient: Sabrina Richmond MR#: [id number] : 1995 Acct:[id number] Age/Sex: 26 / F Adm Date: 2 Loc: Room: [address] [place] [address] Type: ADM IN Attending Dr: Presley Timmons [...] comments: no complaints baby status: doing well feeding status: exclusively [...] signed by MD PRESLEY TIMMONS> 09/13/21 0854 [facility] Work Phone: 1(625) 121-395007-30-2022 [facility] Evaluation + Plan note Diagnostic Tests Pending * Group B Streptococcus colonization by PCR 08/12/21 [facility]06-03-2022 Hospital Discharge instructions Patient Education 07/17/2021 [...] exercise. Managing pain, stiffness, and swelling Take trlh-tei-gdodirq and prescription medicines only as told by [...] 01/31/2006 Document Revised: 01/13/2018 Document Reviewed: 03/02/2017 [employer] Patient Education 2020 The New York Times. Follow Up Care 07/17/2021 09:19:46 With:Presley Timmons MD Address: When:07/20/2021 [facility]04-30-2022 Evaluation + Plan note Diagnostic Tests Pending * Urine Culture 06/13/21 [facility]04-30-2022 Hospital Discharge instructions Follow Up Care 06/13/2021 09:58:45 With:Presley Timmons Address:Unknown When:06/24/2021 Comments:Call for any problems.Call for fever > 100.5 FCall for severe abdominal painCall physician for heavy vaginal bleedinCall physician if symptoms worsenReturn for decreased movementReturn if ruptured membranes or vaginalKeep next scheduled appt [facility]04-21-2022 Hospital Discharge instructions Patient Education 06/04/2021 [...] water added (diluted fruit juice). Eat bland, mdzu-fb-mplgif foods in small amounts as you are able. These foods include bananas, applesauce, rice, lean meats, toast, and crackers. Avoid fluids that contain a lot of sugar or caffeine, such as energy drinks, sports drinks, and soda. Avoid alcohol. Avoid spicy or fatty foods. General instructions Take dead-xlt-afdjeov and prescription medicines only as told by your health care provider. Drink enough fluid to keep your urine pale yellow. Wash your hands often using soap and water. If soap and water are not available, use hand supervisor blood donor recruiters. Make sure that all people in your [...] eating and drinking to prevent dehydration. Take ymeu-gvu-vuylmrx and prescription medicines only as told by [...] 01/31/2006 Document Revised: 05/25/2019 Document Reviewed: 07/11/2018 [employer] Patient Education 2020 The New York Times. Follow Up Care 06/04/2021 14:33:50 With:Ann-Marie Romero Address: [address] [place] [address] [place] [phone] [phone] Business (1) When:06/07/2021 16:06:44 [facility]04-21-2022 Evaluation + Plan noteExtracted from: Title:ED [...] q6hr, # 14 tab(s), Refills(s) 0, Pharmacy: [facility]/pharmacy #[id number], 165, cm, 06/04/21 14:38:00 EDT, Height/Length Dosing, 123, kg, 06/04/21 14:38:00 EDT, Weight Dosing Sodium Chloride 0.9% intravenous solution, 1,000 mL, Soln-IV, IV, Once, Stop date 06/04/21 14:53:00 EDT, STAT, Start date 06/04/21 14:53:00 EDT, mL/hr, Infuse over 61, minute(s) Automated Diff CBC w/ Auto Diff Comprehensive Metabolic Panel eGFR Extra Blue Tube Lipase Level UA With Cult Reflex [facility]03-30-2022 Hospital Discharge instructions Patient Education 05/13/2021 [...] 10/28/2004 Document Revised: 02/17/2017 Document Reviewed: 05/01/2016 [employer] Patient Education 2020 The New York Times. 05/13/2021 13:28:44 Rapid Strep Test Rapid Strep [...] 03/10/2005 Document Revised: 05/25/2019 Document Reviewed: 10/04/2017 [employer] Patient Education 2019 [employer] Follow Up Care 05/13/2021 12:18:07 With:Nick DOMINGO, MIGDALIA Tompkins Address: [address] [place] [phone] When: Unknown [facility] Consult note* Clinical Note Date No Information [facility] Work Phone: Discharge summary* Clinical Note Date No Information [facility] Work Phone: Evaluation + Plan note No data available for this section [facility] Evaluation + Plan note Future Appointments Appointment Date:01/14/2023 01:40:00 PM Scheduled Provider:Ricarda Anthony Location:[facility] Appointment Type:FM New [facility] - [facility] Future Appointments Appointment Date:07/25/2023 08:40:00 AM Scheduled Provider:JOAQUÍN RODRIGUEZ Location:[facility] Appointment Type:[facility] Evaluation + Plan note Future Appointments Appointment Date:10/12/2023 08:00:00 AM Scheduled Provider: [facility] () Appointment Date:11/07/2023 02:00:00 PM Scheduled Provider:JOAQUÍN RODRIGUEZ Location:[facility] Appointment Type: Open Future Scheduled Tests Radiology* MRI Brain w/ + w/o Contrast 10/12/23 [facility] Evaluation + Plan note Future Appointments Appointment Date:11/07/2023 02:00:00 PM Scheduled Provider:JOAQUÍN RODRIGUEZ Location:[facility] Appointment Type:[facility] Evaluation note* Diagnosis Onset Date Resolution Status 40 weeks gestation of acute Status post vaginal delivery [facility] Work Phone: Evaluation note* Diagnosis Missed menses [...] (HHS-HCC) Encounter for follow-up ultrasound of anatomy ([facility]) [facility] Type Assessment Date No Information [facility] Work Phone: Evaluation note* Diagnosis Size of [...] control unspecified (HHS-HCC) [facility]* Diagnosis 32 weeks gestation of (HHS-HCC) Third trimester (HHS-HCC) state, incidental Hypertension affecting in third trimester (HHS-HCC) Diet controlled gestational diabetes mellitus (GDM), antepartum (HHS-HCC) Gestational diabetes mellitus (GDM), antepartum, gestational diabetes method of control unspecified ([facility]) Elevated glucose tolerance test Impaired glucose tolerance test induced hypertension, antepartum ([facility]) Transient hypertension of , antepartum documented [facility] this encounter [facility]* Clinical Note Date No Information [facility] Work Phone: History of Past illness Narrative* Condition Effective Dates (start - stop) O utcome No Information [facility] Work Phone: Hospital Discharge instructions No data available for this section [facility] Date Instruction Additional Infor mation No Information [facility] Work Phone: InstructionsNot on filedocumented in this encounter [facility] on filedocumented in this encounter [facility] No data available for this section [facility]* Clinical Note Date No Information [facility] Work Phone: Reason for referral (narrative) Referred by: JOAQUÍN RODRIGUEZ [facility] [place] Reason for referral (narrative)* Reason For Referral No Information [facility] Work Phone: Review of systems Narrative - Reported* System Pos/Neg Findings No Information [facility] Work Phone: Summary Purpose Family History No [...] DATE CREATED AUTHOR 02/16/2021 [facility] DATE CREATED AUTHOR AUTHOR'S ORGANIZ ATION 02/24/2022 [facility] DATE CREATED AUTHOR AUTHOR'S ORGANIZ ATION 04/20/2024 [place] [facility] DATE CREATED AUTHOR AUTHOR'S ORGANIZ ATION 04/30/2024 [facility] [facility] DATE CREATED AUTHOR AUTHOR'S ORGANIZ ATION 08/26/2024 [facility] DATE CREATED AUTHOR AUTHOR'S ORGANIZ ATION 10/19/2024 [facility] dical Specialists EPIC Care Team (unrecognized sect [...] BE BASED ON THE PRIMARY CLINICAL RECORDS. [email or web address] provides no warranty or guarantee of the accuracy or completeness of information in this document.
[2024-10-20 12:59] VITALS: BP 110/73; PULSE 84
[2024-10-20 13:05] LABS: Hematocrit 39.2 % (36.0-48.0); Hemoglobin 13.3 g/dL (12.0-16.0); Immature Granulocytes Abs Auto 0.04 10^3/uL (0.00-0.03); Immature Granulocytes Pct Auto 0.3 % (0.0-0.5); Lymphocytes Absolute Auto 2.7 10^3/uL (1.2-3.8); Mean Corpuscular HGB Conc 33.9 g/dL (29.9-35.2); Mean Corpuscular Hemoglobin 27.7 pg (26.7-34.0); Mean Corpuscular Volume 81.7 fL (81.0-99.0); Platelet Count 238 10^3/uL (150-450); Red Blood Count 4.80 10^6/uL (4.20-5.40); White Blood Count 12.3 10^3/uL (4.0-11.0)
[2024-10-20 13:12] LABS: Aspartate Amino Transferase 20 U/L (15-37); Blood Urea Nitrogen 13.0 mg/dL (7.0-18.0); Estimated GFR (African America >60 (>=60 mL/min/1.73m^2); Estimated GFR (Non-African Ame >60 (>=60 mL/min/1.73m^2)
== END 2024-10-20 13:39 | disposition home or self-care (01) ==
LOC: FBCO 12:54 → FBC 12:55
PROVIDERS: Visit Provider Obstetrics & Gynecology
DX: O24.419 Gestational diabetes mellitus in pregnancy, unspecified control (principal); O13.9 Gestational [pregnancy-induced] hypertension without significant proteinuria, unspecified trimester
CPT/HCPCS: 36415; 59025; 82565; 84450; 84520; 85025

== ENCOUNTER 2024-10-24 14:11 | Outpatient (OUT) | payer BC, OTHER, SELFPAY ==
--- OUTSIDE RECORDS SUMMARY | 2024-10-17 13:30 | XMS_ITS | Encounter Summary ---
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 Name Role Phone Unavailable Primary Care Provider Unavailabl e Reason for Visit * Reason Comments Routine Visit Encounter Details Date Type Department Care Team (Late Contact Info) Description 10/17/2024 1:30 PM EDT Routine [facility] [place] [address] [place] [phone] Zack Ortiz DO [address] [place] [address] 32 weeks gestation of (HHS-HCC); Third trimester (HHS-HCC); Hypertension affecting in third trimester (HHS-HCC); Diet controlled gestational diabetes mellitus (GDM), antepartum (HHS-HCC); Gestational diabetes mellitus (GDM), antepartum, gestational diabetes method of control unspecified (HHS-HCC); Elevated glucose tolerance test; induced hypertension, antepartum (HHS-HCC) Social History Tobacco Use Types Packs/Day Years [...] Sign Reading Time Taken Comments Blood Pressure 130/82 10/17/2024 1:30 PM EDT Pulse - - Temperature - - Respiratory Rate - - Oxygen Saturation - - Inhaled Oxygen Concentration - - Weight 130 kg (287 lb 6.4 oz) 10/17/2024 1:30 PM EDT Height - - Body Mass Index 49.33 10/28/2021 12:00 PM EDT documented in this encounter Progress Notes * Jane Lang, MAT - 10/17/2024 1:30 PM EDT Reason for Appointment: Patient ID: [...] meal for a total of 4times daily. Blood Glucose Monitoring Suppl (D-Care Glucometer) w/Device kit 1 kit, Does not apply, Daily, Use four times daily to check FSBS. In the morning prior to breakfast & 1 hour after each meal for a total of 4times daily. [facility] Allergy Relief-D12 5-120 MG 12 hr tablet 1 tablet, Every 12 hours Glucose Blood (Blood Glucose Test) strip 1 strip, In Vitro, Daily, Use in the morning prior to breakfast, 1 hour after each meal for a total of 4times daily. ipratropium-albuterol (Duo-Neb) 0.5-2.5 mg/3 mL nebulizer solution INHALE 1 VIAL VIA NEBULIZER 4 TIMES A DAY labetalol (NORMODYNE) 300 mg, Oral, 3 times daily Lancets Ultra Thin misc 1 each, In Vitro, Daily, Use to check FSBS four times daily ALLERGIES No Known Allergies PROBLEMS Active Ambulatory [...] nursing note reviewed. Exam conducted with a pre assembly wirer present. Vitals: Estimated body mass index is 49.33 kg/m?? as calculated from the following: Height as of 10/28/21: 5' 4 . Weight as of this encounter: 287 lb 6.4 oz. BP: 130/82 No LMP recorded. Patient is . ASSESSMENT & PLAN ICD-10-CM 1. 32 weeks gestation of ([facility]) Z3A.32 POCT urinalysis dipstick manually resulted 2. Third trimester ([facility]) Z34.93 POCT urinalysis dipstick manually resulted 3. Hypertension affecting in third trimester ([facility]) O16.3 US OB follow up transabdominal approach 4. Diet controlled gestational diabetes mellitus (GDM), antepartum ([facility]) O24.410 US OB follow up transabdominal approach 5. Gestational diabetes mellitus (GDM), antepartum, gestational diabetes method of control unspecified ([facility]) O24.419 Lancets Ultra Thin misc Alcohol Swabs (Alcohol Prep Pad) 70 % pads Glucose Blood (Blood Glucose Test) strip Blood Glucose Monitoring Suppl (D-Care Glucometer) w/Device kit 6. Elevated glucose tolerance test R73.09 Lancets Ultra Thin misc Alcohol Swabs (Alcohol Prep Pad) 70 % pads Glucose Blood (Blood Glucose Test) strip Blood Glucose Monitoring Suppl (D-Care Glucometer) w/Device kit 7. induced hypertension, antepartum (HHS-HCC) O13.9 Creatinine CBC and differential ALT AST BUN Creatinine CBC and differential ALT AST BUN US OB follow up transabdominal approach Return OB: Patient presents today for a routine obstetrics appointment. Patient is currently 32w6d . Patient states she is doing well but has complaints of being tired due to current . Patient has verbalizes frequent movement. labor precautions was discussed/given and patient was instructed to perform kick counts three times a day. Pt given labs to have obtained. Pt advised to see MFM with elevated pressures and h/o delivery. Orders Placed This Encounter Procedures US OB follow up transabdominal approach Creatinine CBC and differential ALT AST BUN POCT urinalysis dipstick manually resulted Follow Up: Patient is to return to office in 2 week for routine OB appointment. Documented by Jane Lang LPN on behalf of: Zack Ortiz DO documented in this encounter Plan of Treatment Upcoming Encounters Date Type Department Care Team (Late st Contact Info) Description 10/31/2024 1:40 PM EDT Routine [facility] [address] [phone] Zack Ortiz DO [address] [place] [place] [address] Scheduled Orders Name Type Priority Associated Diagnoses Orde r Schedule Creatinine Lab Routine induced hypertension, antepartum (HHS-HCC) Expected: 10/17/2024 (Approximate), Expires: 10/17/2025 CBC and differential Lab Routine induced hypertension, antepartum (HHS-HCC) Expected: 10/17/2024 (Approximate), Expires: 10/17/2025 ALT Lab Routine induced hypertension, antepartum (HHS-HCC) Expected: 10/17/2024 (Approximate), Expires: 10/17/2025 AST Lab Routine induced hypertension, antepartum ([facility]) Expected: 10/17/2024 (Approximate), Expires: 10/17/2025 BUN Lab Routine induced hypertension, antepartum (HHS-HCC) Expected: 10/17/2024, Expires: 10/17/2025 OB follow up transabdominal approach Imaging Routine Hypertension affecting in third trimester ([facility]) Diet controlled gestational diabetes mellitus (GDM), antepartum ([facility]) induced hypertension, antepartum (HHS-HCC) Expected: 10/17/2024, Expires: 02/16/2025 documented as of this encounter Procedures Procedure Name Priority Date/Time Associated Diagnosis Comments POCT URINALYSIS DIPSTICK Routine 10/17/2024 1:37 PM EDT 32 weeks gestation of ([facility]) Third trimester ([facility]) documented in this encounter Results * (ABNORMAL) POCT urinalysis dipstick manually resulted (10/17/2024 1:37 PM EDT) Color, UA Yellow Clarity, UA Clear Glucose, UA Negative Negative - 2000(110) ++++ mg/dL Bilirubin, UA Negative Negative - 4(70) +++ mg/dL Ketones, UA Negative Negative - 160(16) ++++ mg/dL Spec Grav, UA 1.000 1 - 1.03 Blood, UA Negative Negative - 50 Yossi/mcL pH, UA 1.0 5 - 9 Protein, UA Positive Negative - 2000(20) ++++ mg/dL Comment:1+ Urobilinogen, UA 1.0 0.2 - 12 mg/dL Leukocytes, UA Positive Negative - 500+++ Wild/mcL Comment:2+ Nitrite, UA Negative Negative - Positive Urine 10/17/2024 1:37 PM EDT Zack Ortiz DO POINT OF CARE TEST ENTER/EDIT OR DERABLES Final Result documented in this encounter Visit Diagnoses Diagnosis 32 weeks gestation of ([facility]) Third trimester ([facility]) state, incidental Hypertension affecting in third trimester ([facility]) Diet controlled gestational diabetes mellitus (GDM), antepartum ([facility]) Gestational diabetes mellitus (GDM), antepartum, gestational diabetes method of control unspecified ([facility]) Elevated glucose tolerance test Impaired glucose tolerance test induced hypertension, antepartum ([facility]) Transient hypertension of , antepartum documented in this encounter
--- OUTSIDE RECORDS SUMMARY | 2024-10-24 13:20 | XMS_ITS | Encounter Summary ---
Author Organization [facility] Address [address] [place] [address] Care Team Providers Care Health Education Coordinator Name Role Phone Unavailable Primary Care Provider Unavailabl e Reason for Visit * Reason Comments Routine Visit Encounter Details Date Type Department Care Team ([facility] Contact Info) Description 10/24/2024 1:20 PM EDT Routine GREG MANZANO [address] [place], [phone] Gwen Mccormick PA [address] [place], [facility]11 Third trimester ([facility]); 33 weeks gestation of ([facility]) Social History Tobacco Use Types Packs/Day Years [...] Sign Reading Time Taken Comments Blood Pressure 142/92 10/24/2024 1:49 PM EDT Pulse - - Temperature - - Respiratory Rate - - Oxygen Saturation - - Inhaled Oxygen Concentration - - Weight 132 kg (291 lb) 10/24/2024 1:49 PM EDT Height - - Body Mass Index 49.95 10/28/2021 12:00 PM EDT documented in this encounter Plan of Treatment Upcoming Encounters Date Type Department Care Team (Late st Contact Info) Description 10/31/2024 1:40 PM EDT Routine [facility] Luis Armando OBGYN [address] [place] [phone] Zack Ortiz DO [address] [facility] [place] [address] documented as of this encounter Procedures Procedure Name Priority Date/Time Associated Diagnosis Comments POCT URINALYSIS DIPSTICK Routine 10/24/2024 1:50 PM EDT Third trimester ([facility]) documented in this encounter Results * (ABNORMAL) POCT urinalysis dipstick manually resulted (10/24/2024 1:50 PM EDT) Color, UA Yellow Clarity, UA Clear Glucose, UA Negative Negative - 2000(110) ++++ mg/dL Bilirubin, UA Negative Negative - 4(70) +++ mg/dL Ketones, UA Negative Negative - 160(16) ++++ mg/dL Spec Grav, UA 1.015 1 - 1.03 Blood, UA Negative Negative - 50 Yossi/mcL pH, UA 6.0 5 - 9 Protein, UA 1+ Negative - 2000(20) ++++ mg/dL Urobilinogen, UA 1.0 0.2 - 12 mg/dL Leukocytes, UA 1+ Negative - 500+++ Wild/mcL Nitrite, UA Negative Negative - Positive Urine 10/24/2024 1:50 PM EDT Gwen SAAVEDRA POINT OF CARE TEST ENTER/EDIT OR DERABLES Final Result documented in this encounter Visit Diagnoses Diagnosis Third trimester ([facility]) state, incidental 33 weeks gestation of ([facility]) documented in this encounter
--- OUTSIDE RECORDS SUMMARY | 2024-10-24 14:13 | XMS_ITS | Encounter Summary ---
Author Organization [facility] Address [address] [place] [address] Care Team Providers Care Supervisor Forming And Tempering Name Role Phone Unavailable Primary Care Provider Unavailabl e Encounter Details Date Type Department Care Team (Late st Contact Info) Description 10/23/2024 Telephone [facility] Luis Armando OBGYN [address] [place] [address] [place] [phone] Nayeli Randle LPN Social History Tobacco Use Types Packs/Day [...] Telephone Encounter - Nayeli Randle LPN - 10/23/2024 9:07 AM EDT 10/22/24 Maternal Medicine called office as patient was referred to Diabetic Management/Insulin Management, but patient informed them that she is controlling DM with diet and does not have to come see them per OB. MFM would like to know if this is correct. 10/22/24 @ 3:03pm Spoke with Dr. Ortiz and nursing will reach out to MFM to discuss patient as patient was advised to continue management with MFM as instructed/directed. 10/23/24 @ 0913 Called MFM and left message for Diabetic management to call office, direct extension was given on voicemail. --Nayeli Lacy LPN 10/23/24 @ 1:15pm Spoke with Tati at [facility] option #3 in regards to patient and plan of care. Informed Tati that patient has also been encouraged to continue with MFM. Tati voiced at this time patient dose not have any appointments scheduled with them. Nayeli Lacy LPN documented in this encounter Plan of Treatment Upcoming Encounters Date Type Department Care Team (Late st Contact Info) Description 10/31/2024 1:40 PM EDT Routine [facility] Luis Armando OBGYN [address] [place] [phone] Zack Ortiz DO [address] [place] [address] documented as of this encounter Visit Diagnoses Not on filedocumented in this encounter
--- OUTSIDE RECORDS SUMMARY | 2024-10-24 14:13 | XMS_ITS | Encounter Summary ---
Author Organization [facility] Address [address] [place] [address] Care Team Providers Care Mechanical Integrity Specialist Name Role Phone Unavailable Primary Care Provider Unavailabl e Encounter Details Date Type Department Care Team (Late st Contact Info) Description 10/20/2024 Clinisync Result Encounter [facility] External Department Unsolicited [...] 1:40 PM EDT Routine [facility] Luis Armando OBGYTyra [address] [place] [phone] Zack Ortiz DO [address] [place] [place] [address] documented as of this encounter Procedures Procedure Name Priority Date/Time Associated Diagnosis Comments [facility]H CREATININE Routine 10/20/2024 12:46 PM EDT [facility] AST Routine 10/20/2024 12:46 PM EDT ALL CBC WITH AUTO DIFF Routine 10/20/2024 12:46 PM EDT ALL BUN Routine 10/20/2024 12:46 PM EDT documented in this encounter Results * [facility] AST (10/20/2024 12:46 PM EDT) ASPARTATE AMINO TRANSFERASE 20 15 - 37 U/L TBH 10/20/2024 12:4 6 PM EDT 10/20/2024 12:47 PM EDT Narrative [facility] - 10/20/2024 1:16 PM EDT us Zack Angel DO [facility] Final Result Performing Organization Address [facility]/ZIP Co de Phone Number [facility] * [facility] CREATININE (10/20/2024 12:46 PM EDT) CREATININE 0.83 0.55 - 1.02 mg/dL TBH TBH EGFR-AF VENEZUELAN >60 >=60 mL/min/1.7 3m 2 TBH TBH EGFR-NON AF VENEZUELAN >60 >=60 mL/min/1.7 3m 2 TBH 10/20/2024 12:4 6 PM EDT 10/20/2024 12:47 PM EDT Narrative [facility] - 10/20/2024 1:16 PM EDT us Zack Angel DO [facility] Final Result [facility] * ALL BUN (10/20/2024 12:46 PM EDT) BLOOD UREA NITROGEN 13.0 7.0 - 18.0 mg/dL TBH 10/20/2024 12:4 6 PM EDT 10/20/2024 12:47 PM EDT Narrative [facility] - 10/20/2024 1:16 PM EDT Zack Ortiz DO [facility] Final Result [facility] * (ABNORMAL) ALL CBC WITH AUTO DIFF (10/20/2024 12:46 PM EDT) TB WBC 12.3(H) 4.0 - 11.0 10 3/uL TBH TBH RBC 4.80 4.20 - 5.40 10 6/uL TBH TBH HGB 13.3 12.0 - 16.0 g/dL TBH TBH HCT 39.2 36.0 - 48.0 % TBH TBH MCV 81.7 81.0 - 99.0 fL TBH TBH MCH 27.7 26.7 - 34.0 pg TBH TBH MCHC 33.9 29.9 - 35.2 g/dL TBH TBH RDW 14.4 11.0 - 15.0 % TBH TBH PLT 238 150 - 450 10 3/uL TBH TBH MPV 10.0 9.5 - 13.5 fL TBH NEUTROPHILS PERCENT AUTO 66.9 43.0 - 75.0 % TBH LYMPHOCYTES PERCENT AUTO 22.0 20.5 - 60.0 % TBH MONOCYTES PERCENT AUTO 7.6 1.7 - 12.0 % TBH TBH EO % 2.7 0.9 - 7.0 % TBH BASOPHILS PERCENT AUTO 0.5 0.2 - 2.0 % TBH IMMATURE GRANULOCYTES PCT AUTO 0.3 0.0 - 0.5 % TBH NEUTROPHILS ABSOLUTE AUTO 8.2(H) 1.4 - 6.5 10 3/uL TBH LYMPHOCYTES ABSOLUTE AUTO 2.7 1.2 - 3.8 10 3/uL TBH MONOCYTES ABSOLUTE AUTO 0.9(H) 0.3 - 0.8 10 3/uL TBH TBH EO # 0.3 0.0 - 0.7 10 3/uL TBH BASOPHILS ABSOLUTE AUTO 0.1 0.0 - 0.1 10 3/uL TBH IMMATURE GRANULOCYTES ABS AUTO 0.04(H) 0.00 - 0.03 10 3/uL TBH 10/20/2024 12:4 6 PM EDT 10/20/2024 12:47 PM EDT Narrative [facility] - 10/20/2024 1:14 PM EDT us Zack Angel DO [facility] Final Result Performing Organization Address City/State/[facility] Co de Phone Number [facility] TB documented in this encounter Visit Diagnoses Not on filedocumented in this encounter
--- OUTSIDE RECORDS SUMMARY | 2024-10-24 14:13 | XMS_ITS | Encounter Summary ---
Author Organization [facility] tem Address [id number] [address] [place] [address] Care Team Providers Care Cafeteria Server Name Role Phone Unavailable Primary Care Provider Unavailabl e Encounter Details Date Type Department Care Team (Late st Contact Info) Description 10/11/2024 Abstract Maternal- Medicine at [facility] [address] [place] [address] External, Scanning Provider Social History Tobacco Use Types Packs/Day Years [...] on file documented as of this encounter Plan of Treatment Not on file documented as of this encounter Procedures Procedure Name Priority Date/Time Associated Diagnosis Comments TYPE AND SCREEN Routine 10/04/2024 CBC AND DIFFERENTIAL Routine 10/03/2024 LIVER PANEL Routine 10/03/2024 BASIC METABOLIC PANEL Routine 10/03/2024 documented in this encounter Results * Type and screen (10/04/2024) Antibody Screen negative MANUALLY TRANSCRIBED RESULTS Blood Venous blood / Unknown us Not In System Ref Prov BLOOD BANK TEST ORDERABLE S Final Result MANUALLY TRANSCRIBED RESULTS * Liver panel (10/03/2024) AST 13 13 - 35 U/L MANUALLY TRANSCRIBED RESULTS Blood Venous blood / Unknown Zack R Angel DO LAB BLOOD ORDERABLES Final Resu lt Performing Organization Address [facility] de Phone Number MANUALLY TRANSCRIBED RESULTS * Basic Metabolic Panel (10/03/2024) Pathologist [facility] BUN 10 4 - 21 mg/dL MANUALLY TRANSCRIBED RESULTS Creatinine 0.8 0.5 - 1.1 mg/dL MANUALLY TRANSCRIBED RESULTS Blood Venous blood / Unknown Zack R Angel DO LAB BLOOD ORDERABLES Final Resu lt Performing Organization Address [facility] de Phone Number MANUALLY TRANSCRIBED RESULTS * (ABNORMAL) CBC and differential (10/03/2024) Neutrophils Absolute (A) 11.90(A) 1.30 - 8.30 10*3/uL MANUALLY TRANSCRIBED RESULTS Auto WBC 15.2(A) 3.3 - 10.0 10*3/mL MANUALLY TRANSCRIBED RESULTS Blood Zack R Angel DO LAB BLOOD ORDERABLES Final Resu lt Performing Organization Address [facility] Co de Phone Number MANUALLY TRANSCRIBED RESULTS documented in this encounter Visit Diagnoses Not on filedocumented in this encounter
--- OUTSIDE RECORDS SUMMARY | 2024-10-24 14:13 | XMS_ITS | Encounter Summary ---
Author Organization [facility] Address [address] [place] [address] Care Team Providers Care Laborer Starch Factory Name Role Phone Unavailable Primary Care Provider Unavailabl e Encounter Details Date Type Department Care Team (Late Contact Info) Description 10/24/2024 Bamboo flowsheet GREG MANZANO [address] [place] [address] Gwen Mccormick PA [address] [place], [facility]11 Social History Tobacco Use Types Packs/Day [...] Info) Description 10/31/2024 1:40 PM EDT Routine NOMAldo MANZANO [address] [facility] [place] [address] Zack Ortiz DO [address] [place], [place] [address] documented as of this encounter Visit Diagnoses Not on filedocumented in this encounter
--- NOTE | 2024-10-24 14:14 | US_ITS ---
The [address] [address] Patient Name: DORIAN RICHMOND MRN: [id number] date: 1995 Sex: F [facility] Current Patient Location: Accession/Order Number: [id number] Exam Date: 10/24/2024 14:16 Report Date: 10/24/2024 15:57 At the request of: LUCÍA LEDESMA DO Procedure: US OB growth Growth ultrasound. Reason for exam: Gestational diabetes mellitus. COMPARISON: None. TECHNIQUE: Transabdominal imaging of the gravid uterus was obtained. FINDINGS: Single live intrauterine 31 weeks 0 days by anatomic measurements. Please note that head circumference and abdominal circumference are less than 3rd percentile. Estimated weight is 1739 g also less than 3rd percentile. heart rate is noted at 131 bpm. SCOOTER is 10.0 cm. presentation is breech at time of scanning. US/US OB growth IMPRESSION: Single live intrauterine 31 weeks 0 days by anatomic measurements. Head circumference, abdominal circumference and weight are all less than 3rd percentile. Correlation with correct dating is recommended. Symmetrical IUGR cannot BE excluded. Impression dictated by: Kahlil Voss Jr., D.O. 10/24/2024 3:57 PM Dictation Location: R17 Electronically authenticated by: [id number] Y Date: 10/24/2024 15:57
--- NOTE | 2024-10-24 14:14 | US_ITS ---
[place] [id number] Patient Name: DORIAN RICHMOND MRN: [id number] date: 1995 Sex: F Assigned Patient Location: [facility] Current Patient Location: Accession/Order Number: [id number] Exam Date: 10/24/2024 14:16 Report Date: 10/24/2024 15:49 At the request of: LUCÍA LEDESMA DO Procedure: US OB BPP w non-stress Biophysical profile. Reason for exam: Gestational diabetes COMPARISON: 10/03/2024 TECHNIQUE: Transabdominal imaging of the gravid uterus was obtained. FINDINGS: The principal accounts clerk reports a BPP of 8 out of 8. SCOOTER is normal at 10.0 cm. heart rate 131 bpm. US/US OB BPP w non-stress IMPRESSION: BPP 8 out of 8. Impression dictated by: Kahlil Voss Jr., D.O. 10/24/2024 3:49 PM Dictation Location: [place] [address] Electronically authenticated by: [id number] Y Date: 10/24/2024 15:49
--- OUTSIDE RECORDS SUMMARY | 2024-10-24 14:14 | XMS_ITS | Patient Health Record ---
Author Organization [facility] Address [address] [place] [address] Care Team Providers Care Guitar Teacher Name Role Phone Maliha Matos Primary Care Provider [phone] Reason For Referral No Information Plan Of Treatment No Information Insurance Providers Payer Name Payer Address Payer Phone Subscriber Number Group Number Insured Name Patient Relationship to Insured Coverage Start Date Coverage End Date ANTHEM Primary [address] [place] [phone] [id number] JOSÉ MIGUEL KOLB Spouse - patient is the spouse of the insured 3
--- OUTSIDE RECORDS SUMMARY | 2024-10-24 14:14 | XMS_ITS | Encounter Summary ---
Author Organization [facility] Address [id number] [address] [place] [address] Care Team Providers Care Vacuum Conditioner Operator Name Role Phone Unavailable Primary Care Provider Unavailabl e Encounter Details Date Type Department Care Team (Late st Contact Info) Description 10/22/2024 Telephone Maternal- Medicine at [facility] [address] [place] [address] Meka Younger LPN Social History Tobacco Use Types Packs/Day [...] on file documented as of this encounter Miscellaneous Notes * Telephone Encounter - Meka Younger LPN - 10/22/2024 1:17 PM EDT Called patient to reschedule Diabetic Ed,she states she talked with Dr Ortiz and she doesn't need to come to this freddy. documented in this encounter Plan of Treatment Not on file documented as of this encounter Visit Diagnoses Not on filedocumented in this encounter
--- OUTSIDE RECORDS SUMMARY | 2024-10-24 14:14 | XMS_ITS | Encounter Summary ---
Author Organization [facility] Address [facility]-[id number] [address] [place] [address] Care Team Providers Care University Archivist Name Role Phone Unavailable Primary Care Provider Unavailabl e Encounter Details Date Type Department Care Team (Late st Contact Info) Description 10/18/2024 Documentation Maternal- Medicine at [facility] [address] [place] [phone] Krista Cruz RN [address] [address] Social History Tobacco Use Types Packs/Day Years [...]
--- OUTSIDE RECORDS SUMMARY | 2024-10-24 14:14 | XMS_ITS | Encounter Summary ---
Author Organization [facility] Address [address] [place] [address] Care Team Providers Care Ceramic Maker Demonstrator Name Role Phone Unavailable Primary Care Provider Unavailabl e Encounter Details Date Type Department Care Team (Late Contact Info) Description 08/28/2024 Orders Only [facility] Luis Armando MANZANO [address] [place] [phone] Berta Yoder DE [address] [facility] [address] [place] [address] Social History Tobacco Use Types Packs/Day Years [...] 1:40 PM EDT Routine [facility] Luis Armando MANZANO [address] [facility] [address] [place] [address] Zack Ortiz DO [address] [facility] [address] [place], [place] [id number] documented as of this encounter Procedures Procedure [...]
--- OUTSIDE RECORDS SUMMARY | 2024-10-24 14:14 | XMS_ITS | Encounter Summary ---
Author Organization [facility] Address [address] [place] [address] Care Team Providers Care Medicinal Plant Picker Name Role Phone Unavailable Primary Care Provider Unavailabl e Encounter Details Date Type Department Care Team (Late Contact Info) Description 05/31/2024 Abstract GREG MANZANO [facility] [place] [address] Zack Ortiz DO [facility] [address] [place], [facility]11 Social History Tobacco Use Types Packs/Day Years [...] Info) Description 10/31/2024 1:40 PM EDT Routine GREG MANZANO [facility] [place] [address] Zack Ortiz DO [address] [place] [place] [address] documented as of this encounter Visit Diagnoses Not on filedocumented in this encounter
--- OUTSIDE RECORDS SUMMARY | 2024-10-24 14:14 | XMS_ITS | Encounter Summary ---
Author Organization [facility] Address [address] [place] [address] Care Team Providers Care Peoplesoft Name Role Phone Unavailable Primary Care Provider Unavailabl e Encounter Details Date Type Department Care Team (Late st Contact Info) Description 10/17/2024 Clinisync Result Encounter NOMS External Department Unsolicited Lucía Ortiz DO [address], [facility]11 Social History Tobacco Use Types Packs/Day [...] Luis Armando OBGYN [address] [place] [phone] Lucía Ortiz DO [address] [place] [place] [address] documented as of this encounter Procedures Procedure Name Priority Date/Time Associated Diagnosis Comments US OB BPP W NON-STRESS 10/17/2024 11:04 AM EDT documented in this encounter Results * US OB BPP W NON-STRESS (10/17/2024 11:04 AM EDT) Anatomical Region Laterality Modality Other 10/17/2024 11:0 4 AM EDT Narrative 10/17/2024 11:07 [place] [address] Ultrasound Report Signed Patient: DORIAN RICHMOND MR#: [id number] : 1995 Acct:[id number] Age/Sex: 29 / F ADM Date: 10/17/24 Loc: [facility] 250-[address]: Lucía Ortiz D.O. Ordering Physician: Lucía Ortiz D.O. Date of Service: 10/17/24 Procedure(s): US OB BPP w non-stress Accession Number(s): [id number] cc: Lucía Ortiz D.O.; Physician,Non-Staff M.DNathalia The [place] [address] Patient Name: DORIAN RICHMOND MRN: [id number] date: 1995 Sex: F Assigned Patient Location: [facility] Current Patient Location: [facility] Accession/Order Number: [id number] Exam Date: 10/17/2024 10:30 Report Date: 10/17/2024 [...] Kee M.D. 10/17/2024 11:04 AM Dictation Location: [place] [address] Electronically authenticated by: [id number] Y Date: 10/17/2024 11:04 Dictated By: Jane Kee M.D. Signed By: 10/17/24 1107 DD/ 1104 TD/TT: Rubbish Collection Supervisor: Procedure Note Radiology, Radiologist, MD - 10/17/2024 [place] [address] Ultrasound Report Signed Patient: DORIAN RICHMOND JMR#: [id number] : 1995Acct:[id number] Age/Sex: 29 / FADM Date: 10/17/24 Loc: [facility] 250-[address]: Lucía Ortiz D.O. Ordering Physician: Lucía Ortiz D.O. Date of Service: 10/17/24 Procedure(s): US OB BPP w non-stress Accession Number(s): [id number] cc: Lucía Ortiz D.O.; Physician,Non-Staff James The [place] [id number] Patient Name: DORIAN RICHMOND MRN: [id number] date: 1995 Sex: F Assigned Patient Location: [facility] Current Patient Location: [facility] Accession/Order Number: [id number] Exam Date: 10/17/2024 10:30 Report Date: 10/17/2024 [...] Kee M.D. 10/17/2024 11:04 AM Dictation Location: [place] [address] Electronically authenticated by: [id number] Y Date: 1:04 Dictated By: Jane Kee M.D. Signed By:10/17/24 1107 DD/ 1104 TD/TT: Rubbish Collection Supervisor: us Lucía Angel DO [facility] Final Result documented in this encounter Visit Diagnoses Not on filedocumented in this encounter
--- OUTSIDE RECORDS SUMMARY | 2024-10-24 14:14 | XMS_ITS | Encounter Summary ---
Author Organization [facility] Address [address] [place] [address] Care Team Providers Care Cooker Soda Name Role Phone Unavailable Primary Care Provider Unavailabl e Encounter Details Date Type Department Care Team (Late st Contact Info) Description 10/19/2024 Abstract NOMAldo MANZANO [address] [facility] [place] [address] Snehal Lamb MA Social History Tobacco [...] 10/31/2024 1:40 PM EDT Routine GREG MANZANO [address] [place] [address] Zack Ortiz DO [address], [place] [id number] documented as of this encounter Visit Diagnoses Not on filedocumented in this encounter
--- OUTSIDE RECORDS SUMMARY | 2024-10-24 14:14 | XMS_ITS | Encounter Summary ---
Author Organization [facility] Address [address] [facility] [place] [address] Care Team Providers Care Equipment Tech Name Role Phone Unavailable Primary Care Provider Unavailabl e Encounter Details Date Type Department Care Team (Late Contact Info) Description 05/31/2024 Abstract GREG MANZANO [facility] [place] [address] Zack Ortiz DO [facility] [address], [facility] Social History Tobacco Use Types Packs/Day Years [...] 10/31/2024 1:40 PM EDT Routine GREG MANZANO [facility] [place] [address] Zack Ortiz DO [address] [place] [place] [address] documented as of this encounter Visit Diagnoses Not on filedocumented in this encounter
--- OUTSIDE RECORDS SUMMARY | 2024-10-24 14:14 | XMS_ITS | Encounter Summary ---
Author Organization [facility] Address [address] [place] [address] Care Team Providers Care Grease Maker Name Role Phone Unavailable Primary Care Provider Unavailabl e Encounter Details Date Type Department Care Team (Late st Contact Info) Description 10/10/2024 Clinisync Result Encounter [facility] External Department Unsolicited Lucía Ortiz DO [address], [facility] Social History Tobacco Use Types [...] Luis Armando OBGYN [address] [place] [id number] Lucía Ortiz DO [address] [place] [place] [address] documented as of this encounter Procedures Procedure Name Priority Date/Time Associated Diagnosis Comments US OB BPP W NON-STRESS 10/10/2024 2:29 PM EDT documented in this encounter Results * US OB BPP W NON-STRESS (10/10/2024 2:29 PM EDT) Anatomical Region Laterality Modality Other 10/10/2024 2:29 PM EDT Narrative 10/10/2024 2:32 [place] [address] Ultrasound Report Signed Patient: DORIAN RICHMOND MR#: [id number] : 1995 Acct:[id number] Age/Sex: 29 / F ADM Date: 10/10/24 Loc: [facility] 250-[address]: Lucía Ortiz D.O. Ordering Physician: Lucía Ortiz D.O. Date of Service: 10/10/24 Procedure(s): US OB BPP w non-stress Accession Number(s): [id number] cc: Lucía Ortiz D.O.; Physician,Non-Staff [place] [address] Patient Name: DORIAN RICHMOND MRN: [id number] date: 1995 Sex: F Assigned Patient Location: [facility] Current Patient Location: [facility] Accession/Order Number: [id number] Exam Date: 10/10/2024 14:02 Report Date: 10/10/2024 14:29 At the request of: LUCÍA ORTIZ DO Procedure: US OB BPP w non-stress Biophysical profile. Reason for exam: Gestational diabetes COMPARISON: 10/03/2024 TECHNIQUE: Transabdominal imaging of the gravid uterus was obtained. FINDINGS: The valve tester reports a BPP of 8 out of 8. SCOOTER is normal at 11.7 cm. heart rate 134 bpm. US/US OB BPP w non-stress IMPRESSION: BPP 8 out of 8. Impression dictated by: Kahlil Voss Jr., D.O. 10/10/2024 2:29 PM Dictation Location: [id number]-[id number] Electronically authenticated by: [id number] Y Date: 10/10/2024 14:29 Dictated By: Kahlil Voss M.D. Signed By: 10/10/24 1432 DD/ 1429 TD/TT: Gerentological Physiotherapist: Procedure Note Radiology, Radiologist, - 10/10/2024 [place] [address] Ultrasound Report Signed Patient: DORIAN RICHMOND JMR#: [id number] : 1995Acct:[id number] Age/Sex: 29 / FADM Date: 10/10/24 Loc: [facility] [address]: Lucía Ortiz D.O. Ordering Physician: Lucía Ortiz D.O. Date of Service: 10/10/24 Procedure(s): US OB BPP w non-stress Accession Number(s): [id number] cc: Lucía Ortiz D.O.; Physician,Non-Staff [place] [address] Patient Name: DORIAN RICHMOND MRN: [id number] date: 1995 Sex: F Assigned Patient Location: [facility] Current Patient Location: [facility] Accession/Order Number: [id number] Exam Date: 10/10/2024 14:02 Report Date: 10/10/2024 14:29 At the request of: LUCÍA ORTIZ DO Procedure: US OB BPP w non-stress Biophysical profile. Reason for exam: Gestational diabetes COMPARISON: 10/03/2024 TECHNIQUE: Transabdominal imaging of the gravid uterus was obtained. FINDINGS: The valve tester reports a BPP of 8 out of 8. SCOOTER is normal at11.7 cm. heart rate 134 bpm. US/US OB BPP w non-stress IMPRESSION: BPP 8 out of 8. Impression dictated by: Kahlil Voss Jr., D.O. 10/10/2024 2:29 PM Dictation Location: [place] [address] Electronically authenticated by: [id number] Y Date: 4:29 Dictated By: Kahlil Voss M.D. Signed By:10/10/24 1432 DD/ 1429 TD/TT: Gerentological Physiotherapist: us Lucía Ortiz DO [facility] Final Result documented in this encounter Visit Diagnoses Not on filedocumented in this encounter
--- OUTSIDE RECORDS SUMMARY | 2024-10-24 14:14 | XMS_ITS | Clinical Summary ---
Author Organization [facility] Address [facility] [address] [place] [address] Care Team Providers Care Breeder Hen Service Technician Name Role Phone Unavailable Primary Care [...] Encounters Date Type Department Care Team Description 10/22/2024 Telephone Maternal- Medicine at [facility] [address] [place] [address] Meka Younger LPN 10/18/2024 Documentation Maternal- Medicine at [facility] [address] [place] [address] Krista Cruz, RN 10/11/2024 Abstract Maternal- Medicine at [facility] [address] [place] [address] External, Scanning Provider 10/04/2024 2:31 PM EDT - 10/04/2024 11:59 PM EDT Hospital Encounter [facility] - [facility] US Imaging [address] [facility] [place] [address] Discharge Disposition: Home 10/04/2024 12:23 PM EDT - 10/05/2024 3:01 PM EDT Hospital Encounter [facility] - GEN 3 Antepartum [address] [place] [address] Binh Yung MD Discharge Disposition: Left Against [...] RATIO Routine 10/04/2024 3 :40 PM EDT [facility] Routine 10/04/2024 3:20 PM [...] - 99 mg/dL 10/05/2024 12:00 PM EDT [facility] arterial/capilla ry 10/05/2024 11:55 AM EDT 10/05/2024 12:00 PM EDT us Binh Yung MD POINT OF CARE TEST ORDERABLES Final Result [facility] [address] [place] [address], [place] * LDH (10/05/2024 6:24 AM EDT) Only the most recent of3 resultswithin the time period is included. Pathologist [facility] LDH 138 100 - 235 U/L 10/05/2024 7:33 AM EDT [facility] Blood Venous blood / Unknown Venipuncture / Unknown 10/05/2024 6:24 AM EDT 10/05/2024 7:02 AM EDT us Kay Levi MD LAB BLOOD ORDERABLES Final Res ult [facility] [address] [place] [address], [place] [phone] * (ABNORMAL) CBC without diff (10/05/2024 6:24 AM EDT) Only the most recent of3 resultswithin the time period is included. WBC 14.8(H) 4 - 11 x10E9/L 10/05/2024 7:13 AM EDT [facility] RBC Count 4.69 3.8 - 5.2 X10E12/L 10/05/2024 7:13 AM EDT [facility] Hemoglobin 12.8 11.7 - 15.5 g/dL 10/05/2024 7:13 AM EDT [facility] Hematocrit 37.5 35 - 47 % 10/05/2024 7:13 AM EDT [facility] MCV 80 80 - 100 fL 10/05/2024 7:13 AM EDT [facility] MCH 27.2 27 - 34 pg 10/05/2024 7:13 AM EDT [facility] MCHC 34.0 32 - 36 g/dL 10/05/2024 7:13 AM EDT [facility] RDW 15.0 11.5 - 15 % 10/05/2024 7:13 AM EDT [facility] Platelet Count 276 150 - 450 X10E9/L 10/05/2024 7:13 AM EDT [facility] MPV 8.0 7 - 12 fL 10/05/2024 7:13 AM EDT [facility] Blood Venous blood / Unknown Venipuncture / Unknown 10/05/2024 6:24 AM EDT 10/05/2024 7:02 AM EDT us Kay Levi MD LAB BLOOD ORDERABLES Final Res ult Performing Organization Address City/[facility]/ZIP Co de Phone Number [facility] [address] [place] [address], [place] [phone] * Uric acid (10/05/2024 6:24 AM EDT) Only the most recent of3 resultswithin the time period is included. URIC ACID 6.4 2.6 - 7.2 mg/dL 10/05/2024 7:33 AM EDT [facility] Blood Venous blood / Unknown Venipuncture / Unknown 10/05/2024 6:24 AM EDT 10/05/2024 7:02 AM EDT us Kay Levi MD LAB BLOOD ORDERABLES Final Res ult [facility] [address] [place] [address], [place] [phone] * (ABNORMAL) Comprehensive metabolic panel (10/05/2024 6:24 AM EDT) Only the most recent of2 resultswithin the time period is included. SODIUM 135 134 - 146 mmol/L 10/05/2024 7:33 AM [facility] POTASSIUM 4.0 3.5 - 5.0 mmol/L 10/05/2024 7:33 AM [facility] CHLORIDE 105 98 - 109 mmol/L 10/05/2024 7:33 AM [facility] CARBON DIOXIDE 20(L) 22 - 32 mmol/L 10/05/2024 7:33 AM [facility] ANION GAP 10 5 - 15 mmol/L 10/05/2024 7:33 AM [facility] BLOOD UREA NITROGEN 8 5 - 23 mg/dL 10/05/2024 7:33 AM [facility] CREATININE 0.64 0.40 - 1.00 mg/dL 10/05/2024 7:33 AM [facility] Comment:METHOD TRACEABLE TO IDVT STANDARD GLUCOSE 111(H) 65 - 99 mg/dL 10/05/2024 7:33 AM [facility] CALCIUM 7.8(L) 8.5 - 10.5 mg/dL 10/05/2024 7:33 AM [facility] TOTAL PROTEIN 6.7 6.0 - 8.0 g/dL 10/05/2024 7:33 AM [facility] ALBUMIN 3.4 3.2 - 5.3 g/dL 10/05/2024 7:33 AM [facility] ALKALINE PHOSPHATASE 114 39 - 130 U/L 10/05/2024 7:33 AM [facility] AST 8 <=41 U/L 10/05/2024 7:33 AM [facility] ALT 5 <=31 U/L 10/05/2024 7:33 AM [facility] BILIRUBIN,TOTAL 0.3 0.3 - 1.2 mg/dL 10/05/2024 7:33 AM [facility] EGFR Non-Race Dependent >90 >=60 ml/min/1.7 3sq.m 10/05/2024 7:33 AM EDT [facility] Comment: Reported eGFR is based on the CKD-EPI 2020 equation that does not use a race coefficient. EGFR not calculated due to patient's gender not being defined. Blood Venous blood / Unknown Venipuncture / Unknown 10/05/2024 6:24 AM EDT 10/05/2024 7:02 AM EDT Kay Levi MD LAB BLOOD ORDERABLES Final Res ult Performing Organization Address City/[facility]/ZIP Co de Phone Number [facility] [address] [place] [address], * Strep B screen (10/04/2024 8:55 PM EDT) CULTURE RESULTS POSITIVE FOR GROUP B STREPTOCOCCUS BY NUCLEIC ACID AMPLIFICATION 10/06/2024 12:59 AM EDT [facility] Swab (Vagina/Rectum) 10/04/2024 8:55 PM EDT 10/04/2024 9:15 PM EDT Narrative [facility] - 10/06/2024 12:59 AM EDT Group B streptococci remain universally susceptible to penicillin, ampicillin, and cefazolin. Resistance to clindamycin can occur. Please contact laboratory within 48 hours if clindamycin susceptibility testing is needed. Evon Clement DO MICROBIOLOGY - GENERAL ORDER SONIA Final Result Performing Organization Address City/[facility]/ZIP Co de Phone Number [facility] [address] [place] [address], * ABO Rh Repeat (10/04/2024 4:48 PM EDT) Only the most recent of2 resultswithin the time period is included. ABO A 10/04/2024 7:34 PM EDT [facility] RH Positive 10/04/2024 7:34 PM EDT [facility] Blood Venous blood / Unknown Venipuncture / Unknown 10/04/2024 4:48 PM EDT 10/04/2024 6:38 PM EDT us Binh Yung MD BLOOD BANK TEST ORDERABLES Fin al Result Performing Organization Address City/[facility]/ZIP Co de Phone Number [facility] [address] [place] [address], [facility] [address] [place] [address], [place] * (ABNORMAL) Urine protein creatinine ratio (10/04/2024 3:40 PM EDT) URINE PROTEIN, RANDOM (MG/L) 140(H) <120 mg/L 10/04/2024 5:09 PM EDT [facility] URINE CREATININE,RDM 28.24 mg/dL 10/04/2024 5:09 PM EDT [facility] U/PRO/FABRICATOR SPECIAL ITEMS RATIO CALC 0.50(H) <=0.20 10/04/2024 5:09 PM EDT [facility] Urine Urine specimen collection, clean catch / Unknown 10/04/2024 3:40 PM EDT 10/04/2024 4:23 PM EDT [facility] - 10/04/2024 5:09 PM EDT Nephrotic Syndrome is associated with ratios >3.5 us Yvon Post MD URINE ORDERABLES Final Result Performing Organization Address City/[facility]/ZIP Co de Phone Number [facility] [address] [place] [address], [place] [phone] * Buprenorphine, urnie (10/04/2024 3:40 PM EDT) BUPRENORPHINE, URINE QUALITATIVE Negative Negative 10/04/2024 5:09 PM EDT [facility] Urine Urine specimen collection, clean catch / Unknown 10/04/2024 3:40 PM EDT 10/04/2024 4:23 PM EDT [facility] - 10/04/2024 5:09 PM EDT Urine Buprenorphine cut of value = 10 ng/mL This report is intended for use in clinical monitoring or management of patients. us Yvon Post MD URINE ORDERABLES Final Result Performing Organization Address City/[facility]/ZIP Co de Phone Number [facility] [address] [place] [address], [place] [phone] * Fentanyl, Urine Qualitative (10/04/2024 3:40 PM EDT) FENTANYL, URINE QUAL. Negative Negative 10/04/2024 5:09 PM EDT [facility] Urine Urine specimen collection, clean catch / Unknown 10/04/2024 3:40 PM EDT 10/04/2024 4:23 PM EDT [facility] - 10/04/2024 5:09 PM EDT Fentanyl screening cutoff = 5ng/ml This report is intended for use in clinical monitoring or management of patients. us Yvon Post MD URINE ORDERABLES Final Result Performing Organization Address [facility]/ZIP Co de Phone Number [facility] [address] [place] [address], [place] [phone] * Drug Screen, Urine (10/04/2024 3:40 PM EDT) AMPHETAMINE/METHAMP Negative Negative 10/04 5:09 PM EDT [facility] Comment:AMPH/METH screening cut off = 1000 ng/mL COCAINE METABOLITE Negative Negative 2024 5:09 PM EDT [facility] Comment:Cocaine screening cu t off value = 300 ng/mL ECSTASY Negative Negative 10/04/2024 5:09 PM EDT [facility] Comment:Ecstasy screening cu t off value = 500 ng/mL METHADONE Negative Negative 10/04/2024 5:09 PM EDT [facility] Comment:Methadone screening cut off value = 300 ng/mL. OPIATES Negative Negative 10/04/2024 5:09 PM EDT [facility] Comment: Opiates screening cut off value = 300 ng/mL This test is used for the detection of codeine, hydrocodone (>1000 ng/mL), morphine and hydromorphone (>900 ng/mL) in urine. OXYCODONE Negative Negative 10/04/2024 5:09 PM EDT [facility] Comment: Oxycodone screening cut off value = 300 ng/mL This test is used for the detection of oxycodone and oxymorphone in urine. PHENCYCLIDINE Negative Negative 10/04/2024 5:09 PM EDT [facility] Comment:Phencyclidine screen ing cut off value = 25 ng/mL CANNABINOIDS Negative Negative 10/04/2024 5:09 PM EDT [facility] Comment:Cannabinoids/THC scr eening cut off value = 50 ng/mL Urine Barbiturates Negative Negative 2024 5:09 PM EDT [facility] Comment:Barbiturates screeni ng cut off value = 200 ng/mL BENZODIAZEPINES Negative Negative 5:09 PM EDT [facility] Comment:Benzodiazepines scre ening cut off value = 200 ng/mL Urine Urine specimen collection, clean catch / Unknown 10/04/2024 3:40 PM EDT 10/04/2024 4:23 PM EDT us Yvon Post MD URINE ORDERABLES Final Result [facility] [address] [place] [address], [place] [phone] * US MFM COMPREHENSIVE ANATOMIC SURVEY (10/04/2024 3:20 PM EDT) Anatomical Region Laterality Modality OB-BUS INFO CONSULTANT Ultrasound 10/04/2024 2:51 PM EDT Narrative 10/04/2024 5:21 PM EDT NAME: BASILIO ALARCON : 1995 SEX: F Accession Number: [id number] ORDERING PHYSICIAN: YVON POST REFERRING PHYSICIAN: LUCÍA LEDESMA Coding ----- --------- Procedures 09906: Ultrasound, uterus, real time with image documentation, [...] EFW (oz) 8 oz EFW by: Hadlock ([id number]) Extended Tibia 47.6 mm 28w 6d 7% Isac Sanitary Plumber 3.0 mm CM 5.2 mm 7% Nicolaides [...] Heart / Thorax 4-chamber view. 3-vessel view. 0-mhhkzk-jsrsbbm view. Interventricular septum. Great vessels. Diaphragm. Abdomen [...] Note Aleena Mills MD - 10/04/2024 NAME: DORIANBASILIO George : 1995 SEX: F Accession Number: [id number] ORDERING PHYSICIAN: YVON POST REFERRING PHYSICIAN: LUCÍA LEDESMA Coding ----- --------- Procedures 33379: Ultrasound, uterus, real time with imagedocumentation, and [...] EFW (oz) 8 oz EFW by: Hadlock ([id number]) Extended Tibia 47.6 mm 28w 6d 7% Isac Sanitary Plumber 3.0 mm CM 5.2 mm 7% Nicolaides [...] Heart / Thorax 4-chamber view. 3-vessel view. 0-gaegqe-lyydxia view.Interventricular septum. Great vessels. Diaphragm. Abdomen Kidneys. [...] thepatient as necessary. us Yvon Post MD [facility] US ORDERABLES Final Resul t * Syphilis Total (Unknown Syphilis Status) (10/04/2024 1:02 PM EDT) [facility] SYPHILIS TOTAL <0.2 <=0.8 AI 10/04/2024 3:16 PM EDT [facility] Blood Venous blood / Unknown Venipuncture / Unknown 10/04/2024 1:02 PM EDT 10/04/2024 1:13 PM EDT Narrative [facility] - 10/04/2024 3:16 PM EDT NON REACTIVE No serologic evidence of infection to Treponema pallidum. Repeat testing may be considered in patients with suspected acute or primary syphilis in 2 to 4 weeks. Kay Levi MD LAB BLOOD ORDERABLES Final Res ult [facility] [address] [place] [address], [place] [phone] * Type and screen(includes indirect reanna) (10/04/2024 1:02 PM EDT) Only the most recent of2 resultswithin the time period is included. [facility] ABO A 10/04/2024 2:03 PM EDT [facility] RH Positive 10/04/2024 2:03 PM EDT [facility] Antibody Screen Negative 10/04/2024 2:03 PM EDT [facility] Blood Venous blood / Unknown Venipuncture / Unknown 10/04/2024 1:02 PM EDT 10/04/2024 1:19 PM EDT Kay Levi MD BLOOD BANK TEST ORDERABLES Paco walter Result - Final [facility] [address] [place] [address], [facility] [address] [place] [address], [place] * (ABNORMAL) CBC and differential (10/03/2024) Neutrophils Absolute (A) 11.90(A) 1.30 - 8.30 10*3/uL MANUALLY TRANSCRIBED RESULTS Auto WBC 15.2(A) 3.3 - 10.0 10*3/mL MANUALLY TRANSCRIBED RESULTS Blood us Lucía R Angel DO LAB BLOOD ORDERABLES Final Resu lt MANUALLY TRANSCRIBED RESULTS * Liver panel (10/03/2024) AST 13 13 - 35 U/L MANUALLY TRANSCRIBED RESULTS Blood Venous blood / Unknown us Lucía R Angel DO LAB BLOOD ORDERABLES Final Resu lt Performing Organization Address [facility]/ZIP Co de Phone Number MANUALLY TRANSCRIBED RESULTS * Basic Metabolic Panel (10/03/2024) Pathologist [facility] BUN 10 4 - 21 mg/dL MANUALLY TRANSCRIBED RESULTS Creatinine 0.8 0.5 - 1.1 mg/dL MANUALLY TRANSCRIBED RESULTS Blood Venous blood / Unknown us Lucía R Angel DO LAB BLOOD ORDERABLES Final Resu lt MANUALLY TRANSCRIBED RESULTS * Chlamydia/GC by PCR Young Swab (08/20/2024) Pathologist [facility] Chlamydia Dna(Pcr) negative Gonorrhoeae Dna(Pcr) negative Swab us Lucía R Angel DO MICROBIOLOGY - GENERAL ORDERABL ES Final Result from Last 3 Months Insurance [employer] Advance Directives * Full Code (Latest Code Status on File) Date Activated Date Inactivated Comments 10/04/2024 12:52 PM 10/05/2024 5:08 PM
--- OUTSIDE RECORDS SUMMARY | 2024-10-24 14:14 | XMS_ITS | Clinical Summary ---
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 Apprentice Name Role Phone Unavailable Primary Care Provider [...] control unspecified ([facility]),Elev ated glucose tolerance test 1 kit Daily [...] 25 025 Discontinued(En tered in error) insulin syringe 29G X 1/2 0.5 mL miscIndication s:Gestational diabetes mellitus (GDM), antepartum, gestational diabetes method of control unspecified ([facility]) Use as instructed 100 each 4 10/04/19 025 Discontinued(En tered in error) Encounters Date Type Department Care Team Description 10/24/2024 1:20 PM ED[place] [address] Gwen Mccormick PA Third trimester ([facility]); 33 weeks gestation of ([facility]) 10/24/2024 Bamboo [place] [address] Gwen Mccormick PA 10/23/2024 [place] [address] Nayeli Randle LPN 10/20/2024 Clinisync Result Encounter NOMS External Department Unsolicited Lucía Ortiz DO 10/19/2024 [place] [phone] Snehal Lamb MA 10/17/2024 1:30 PM ED[place] [address] Lucía Ortiz DO 32 weeks gestation of ([facility]); Third trimester ([facility]); Hypertension affecting in third trimester ([facility]); Diet controlled gestational diabetes mellitus (GDM), antepartum ([facility]); Gestational diabetes mellitus (GDM), antepartum, gestational diabetes method of control unspecified ([facility]); Elevated glucose tolerance test; induced hypertension, antepartum ([facility]) 10/17/2024 Clinisync Result Encounter NOMS External Department Unsolicited Lucía Ortiz, DO 10/10/2024 Clinisync Result Encounter NOMS External Department Unsolicited Lucía Ortiz, DO 10/08/2024 2:20 PM ED[place] [phone] Lucía Ortiz, DO Third trimester ([facility]); 31 weeks gestation of ([facility]); Hypertension affecting in third trimester ([facility]) 10/08/2024 Bamboo [place] [address] Lucía Ortiz, DO 10/04/2024 Clinisync Result Encounter NOMS External Department Unsolicited Lucía Ortiz, DO 10/03/2024 2:20 PM ED[place] [phone] Lucía Ortiz, DO Third trimester ([facility]); Diet controlled gestational diabetes mellitus (GDM), antepartum ([facility]); Gestational diabetes mellitus (GDM), antepartum, gestational diabetes method of control unspecified ([facility]) 10/03/2024 2:00 PM EDT [place] [phone] Size of fetus inconsistent with dates in second trimester ([facility]) 10/03/2024 Clinisync Result Encounter NOMS External Department Unsolicited Lucía Ortiz, DO 10/03/2024 Clinisync Result Encounter NOMS External Department Unsolicited Lucía Ortiz, DO 10/03/2024 [place] [phone] Jane Lang LPN 09/17/2024 1:30 [place] [phone] Gwen Mccormick PA Size of fetus inconsistent with dates in second trimester ([facility]) (Primary Dx); 28 weeks gestation of ([facility]) 09/17/2024 Bamboo [place] [address] Gwen Mccormick PA 09/11/2024 [place] [phone] Lucía Ortiz DO 08/29/2024 1:00 PM EDT Ancillary [place] [phone] Encounter for follow-up ultrasound of anatomy ([facility]) 08/28/2024 [place] [address] Berta Yoder MA 08/20/2024 2:10 PM ED[place] [address] Lucía Ortiz DO Well woman exam with routine gynecological exam; Second trimester ([facility]); 24 weeks gestation of ([facility]); Exposure to STD; Need for maternal serum alpha-protein (MSAFP) screening ([facility]); Encounter for follow-up ultrasound of anatomy ([facility]) 08/20/2024 Clinisync Result Encounter NOMS External Department Unsolicited Lucía Ortiz, 08/20/2024 External Result Encounter NOMS External Department Unsolicited Lucía Ortiz, 08/20/2024 Bamboo [place] [address] Lucía Ortiz DO from Last 3 Months Social History Tobacco [...] (291 lb) 10/24/2024 1:49 PM EDT Height 162.6 cm (5' 4 ) 10/28/2021 12:00 PM EDT Body Mass Index 49.95 10/28/2021 12:00 PM EDT Plan of Treatment Upcoming Encounters Date Type Department Care Team (Late st Contact Info) Description 10/31/2024 1:40 PM EDT Routine NOM[facility] Luis Armando [facility] [address] [place] [address] Lucía Ortiz DO [address] [place] [address] Health Maintenance Due Date Last Done Comments Influenza Vaccine (#1) 2024 11/26/2011, 2003, 03/01/2003 Cervical Cancer Screening 08/20/2029 HPV/Cotest 08/20/2029 Pap Smear 08/20/2029 08/20/2024 Procedures Procedure Name Priority Date/Time Associated Diagnosis Comments POCT URINALYSIS DIPSTICK Routine 10/24/2024 1:50 PM EDT Third trimester ([facility]) [facility] AST Routine 10/20/2024 12:46 PM EDT TBH CREATININE Routine 10/20/2024 12:46 PM EDT ALL BUN Routine 10/20/2024 12:46 PM EDT ALL CBC WITH AUTO DIFF Routine 12:46 PM EDT POCT URINALYSIS DIPSTICK Routine 10/17/2024 1:37 PM EDT 32 weeks gestation of ([facility]) Third trimester ([facility]) US OB BPP W NON-STRESS 10/17/2024 11:04 AM EDT US OB BPP W NON-STRESS 10/10/2024 2:29 PM EDT POCT URINALYSIS DIPSTICK Routine 10/08/2024 3:15 PM EDT Third trimester ([facility]) 31 weeks gestation of ([facility]) MHPT FIBRINOGEN Routine 10/04/2024 8:46 [...] Routine 10/03/2024 2:28 PM EDT Third trimester ([facility]) US OB FOLLOW UP TRANSABDOMINAL APPROACH Routine 10/03/2024 2:16 PM EDT Size of fetus inconsistent with dates in second trimester ([facility]) US OB LIMITED 1+ FETUSES Routine 08/29/2024 1:23 PM EDT Encounter for follow-up ultrasound of anatomy ([facility]) RECURRENT VAGINITIS (HTRX) Routine 08/20/2024 3:53 PM EDT POCT URINALYSIS DIPSTICK Routine 08/20/2024 2:57 PM EDT Second trimester ([facility]) IGP,APTIMA HPV,AGE GDLN Routine 08/20/2024 2:32 PM EDT PAP SMEAR Routine 08/20/2024 12:00 AM EDT POCT URINALYSIS DIPSTICK Routine 07/24/2024 9:46 AM EDT Second trimester ([facility]) from Last 3 Months Results * (ABNORMAL) POCT urinalysis dipstick manually resulted (10/24/2024 1:50 PM EDT) Only the most recent of6 resultswithin the time period is included. Color, [...] OR DERABLES Final Result * TBH CREATININE (10/20/2024 12:46 PM EDT) Only the most recent of3 resultswithin the time period is included. CREATININE 0.83 0.55 - 1.02 mg/dL TBH TBH EGFR-AF MONTSERRATIAN >60 >=60 mL/min/1.7 3m 2 TBH TBH EGFR-NON AF MONTSERRATIAN >60 >=60 mL/min/1.7 3m 2 TBH 10/20/2024 12:4 6 PM EDT 10/20/2024 12:47 PM EDT Narrative CLINISYNC - 10/20/2024 1:16 PM EDT us Lucía Angel DO CLINISYNC Final Result [facility] * [facility]CF AST (10/20/2024 12:46 PM EDT) Only the most recent of3 resultswithin the time period is included. ASPARTATE AMINO TRANSFERASE 20 15 - 37 U/L TB 10/20/2024 12:4 6 PM EDT 10/20/2024 12:47 PM EDT Narrative CLINISYNC - 10/20/2024 1:16 PM EDT us Lucía Angel DO CLINISYNC Final Result Performing Organization Address City/[facility]/ZIP Co de Phone Number [facility] * (ABNORMAL) ALL CBC WITH AUTO DIFF (10/20/2024 12:46 PM EDT) Only the most recent of3 resultswithin the time period is included. TBH WBC 12.3(H) 4.0 - 11.0 10 3/uL TBH TBH RBC 4.80 4.20 - 5.40 10 6/uL TBH TBH HGB 13.3 12.0 - 16.0 g/dL TB TB HCT 39.2 36.0 - 48.0 % TBH TBH MCV 81.7 81.0 - 99.0 fL TBH TBH MCH 27.7 26.7 - 34.0 pg TBH TBH MCHC 33.9 29.9 - 35.2 g/dL TB TBH RDW 14.4 11.0 - 15.0 % [...] Narrative CLINISYNC - 10/20/2024 1:14 PM EDT Lucía Angel DO [facility] * ALL BUN (10/20/2024 12:46 PM EDT) Only the most recent of3 resultswithin the time period is included. BLOOD UREA NITROGEN 13.0 7.0 - 18.0 mg/dL TBH 10/20/2024 12:4 6 PM EDT 10/20/2024 12:47 PM EDT Narrative CLINISYNC - 10/20/2024 1:16 PM EDT Lucía Angel DO [facility] * US OB BPP W NON-STRESS (10/17/2024 11:04 AM EDT) Only the most recent of3 resultswithin the time period is included. Anatomical Region Laterality Modality Other 10/17/2024 11:0 4 AM EDT Narrative 10/17/2024 11:07 [place] [address] Ultrasound Report Signed Patient: DORIAN TOVAR MR#: [id number] : 1995 Acct:[id number] Age/Sex: 29 / F ADM Date: 10/17/24 Loc: [facility] 250-[address]: Lucía Ortiz D.O. Ordering Physician: Lucía Ortiz D.O. Date of Service: 10/17/24 Procedure(s): US OB BPP w non-stress Accession Number(s): [id number] cc: Lucía Ortiz D.O.; Physician,Non-Staff [place] [address] Patient Name: DORIAN TOVAR MRN: [id number] date: 1995 Sex: F Assigned Patient Location: [facility] Current Patient Location: [facility] Accession/Order Number: [id number] Exam Date: 10/17/2024 10:30 Report Date: 10/17/2024 [...] Kee M.D. 10/17/2024 11:04 AM Dictation Location: [place] Electronically authenticated by: [id number] Y Date: 10/17/2024 11:04 Dictated By: Jane Kee M.D. Signed By: 10/17/24 1107 DD/ 1104 TD/TT: Rehab Therapy Manager: Procedure Note Radiology, Radiologist, - 10/17/2024 [place] [address] Ultrasound Report Signed Patient: DORIAN TOVAR JMR#: [id number] : 1995Acct:[id number] Age/Sex: 29 / FADM Date: 10/17/24 Loc: [facility] 250-[address]: Lucía Ortiz D.O. Ordering Physician: Lucía Ortiz D.O. Date of Service: 10/17/24 Procedure(s): US OB BPP w non-stress Accession Number(s): [id number] cc: Lucía Ortiz D.O.; Physician,Non-Staff [place] [address] Patient Name: DORIAN TOVAR MRN: [facility]:[id number] date: 1995 Sex: F Assigned Patient Location: [facility] Current Patient Location: [facility] Accession/Order Number: [id number] Exam Date: 10/17/2024 10:30 Report Date: 10/17/2024 [...] Kee M.D. 10/17/2024 11:04 AM Dictation Location: [place] [address] Electronically authenticated by: [id number] Y Date: 1:04 Dictated By: Jane Kee M.D. Signed By:10/17/24 1107 DD/ 1104 TD/TT: Rehab Therapy Manager: Lucía Angel DO CLINISYNC IMAGING Final Result * [facility] PROTHROMBIN TIME INR W/O COUM [...] EDT Lucía Angel DO [facility] Final Result [facility] * (ABNORMAL) MHPT FIBRINOGEN (10/04/2024 8:46 AM EDT) Only the most recent of2 resultswithin the time period is included. FIBRINOGEN 575(H) 200 - 400 mg/dL TBH 10/04/2024 8:46 AM EDT 10/04/2024 8:50 AM EDT Narrative CLINISYNC - 10/04/2024 9:53 AM EDT us Lucía Angel DO CLINISYNC Final Result [facility] TB * CCF APTT (10/04/2024 8:46 AM EDT) Only the most recent of2 resultswithin the time period is included. PARTIAL THROMBOPLASTIN TIME 26.8 22.3 - 36.2 sec TBH 10/04/2024 8:46 AM EDT 10/04/2024 8:50 AM EDT Narrative CLINISYNC - 10/04/2024 9:53 AM EDT us Lucía Angel DO CLINISYNC Final Result Performing Organization Address [facility] de Phone Number [facility]NC TB * CCF ALT (10/04/2024 8:46 AM EDT) Only the most recent of2 resultswithin the time period is included. ALANINE AMINOTRANSFERASE 14 14 - 59 U/L TB 10/04/2024 8:46 AM EDT 10/04/2024 8:50 AM EDT Narrative CLINISYNC - 10/04/2024 9:33 AM EDT us Lucía Angel DO CLINISYNC Final Result Performing Organization Address [facility] Co de Phone Number [facility] TB * ALL URIC ACID (10/04/2024 8:46 AM EDT) Only the most recent of2 resultswithin the time period is included. URIC ACID 5.4 2.6 - 6.0 mg/dL TBH 10/04/2024 8:46 AM EDT 10/04/2024 8:50 AM EDT Narrative CLINISYNC - 10/04/2024 9:33 AM EDT us Lucía Angel DO CLINISYNC Final Result Performing Organization Address City/[facility] Co de Phone Number CL[facility]ISYNC TBH * ALL LDH (10/04/2024 8:46 AM EDT) LACTATE DEHYDROGENASE 153 81 - 234 U/L TBH 10/04/2024 8:46 AM EDT 10/04/2024 8:50 AM EDT Narrative JELANIISYNC - 10/04/2024 9:35 AM EDT us Lucía Angel DO JELANIISYJOHNNY Final Result Performing Organization Address [facility] Co de Phone Number [facility] * (ABNORMAL) TBH URINE T PROTEIN CREAT RATIO (10/03/2024 5:10 PM EDT) TOTAL PROTEIN URINE RANDOM 28.5(H) <=11.9 mg/dL TBH CREATININE URINE RANDOM 60.71 20.00 - 300.00 mg/dL TBH PROTEIN CREATININE RATIO URINE 0.47 TBH 10/03/2024 5:10 PM EDT 10/03/2024 5:33 PM EDT Narrative CLINISYNC - 10/03/2024 5:50 PM EDT us Lucía Angel DO SHAHZADTN Final Result Performing Organization Address [facility] de Phone Number [facility] * US OB follow up transabdominal [...] II, MD, PHD at 04-Oct-2024 08:06:58 AM [facility] Procedure Note Una Darnell MD - [...] signed by UNA DARNELL II, MD, PHD [id number] 08:06:58 AM [facility] Gwen SAAVEDRA IMG OB US PROCEDURES Final [...] Kahlil Solis MD us Lucía Ortiz DO IM OB US PROCEDURES Final Resul t * RECURRENT VAGINITIS (HTRX) (08/20/2024 3:53 PM EDT) Pathologist [facility] ATOPOBIUM VAGINAE 0 19.961 - 24.689 ppm 08/21/2024 6:26 AM EDT [facility] ATOPOBIUM VAGINAE Not Detected 19.961 - 24.689 ppm 08/21/2024 6:26 AM EDT [facility] BVAB 2,3 (BACTERIAL VAGINOSIS ASSOCIATED BACTERIA 2, 3); MOBILUNCUS SPP 0 19.961 - 24.689 ppm 08/21/2024 6:26 AM EDT [facility] BVAB 2,3 (BACTERIAL VAGINOSIS ASSOCIATED BACTERIA 2, 3); MOBILUNCUS SPP Not Detected 19.961 - 24.689 ppm 08/21/2024 6:26 AM EDT [facility] FORREST ALBICANS, PARAPSILOSIS, TROPICALIS 0 19.961 - 30.770 ppm 08/21/2024 6:26 AM EDT [facility] [place] FORREST ALBICANS, PARAPSILOSIS, TROPICALIS Not Detected 19.961 - 30.770 ppm 08/21/2024 6:26 AM EDT [facility] FORREST GLABRATA 0 23.000 - 32.138 ppm 08/21/2024 6:26 AM EDT [facility] FORREST GLABRATA Not Detected 23.000 - 32.138 ppm 08/21/2024 6:26 AM EDT [facility] FORREST KRUSEI 0 23.000 - 32.271 ppm 08/21/2024 6:26 AM EDT [facility] FORREST KRUSEI Not Detected 23.000 - 32.271 ppm 08/21/2024 6:26 AM EDT [facility] CHLAMYDIA TRACHOMATIS 0 23.000 - 31.467 ppm 08/21/2024 6:26 AM EDT [facility] CHLAMYDIA TRACHOMATIS Not Detected 23.000 - 31.467 ppm 08/21/2024 6:26 AM EDT [facility] GARDNERELLA VAGINALIS 0 19.961 - 24.689 ppm 08/21/2024 6:26 AM EDT [facility] GARDNERELLA VAGINALIS Not Detected 19.961 - 24.689 ppm 08/21/2024 6:26 AM EDT [facility] MEGASPHAERA (TYPES 1, 2) 0 19.961 - 24.689 ppm 08/21/2024 6:26 AM EDT [facility] MEGASPHAERA (TYPES 1, 2) Not Detected 19.961 - 24.689 ppm 08/21/2024 6:26 AM EDT [facility] NEISSERIA GONORRHOEAE 0 23.000 - 32.117 ppm 08/21/2024 6:26 AM EDT [facility] NEISSERIA GONORRHOEAE Not Detected 23.000 - 32.117 ppm 08/21/2024 6:26 AM EDT [facility] TRICHOMONAS VAGINALIS 0 23.000 - 32.119 ppm 08/21/2024 6:26 AM EDT [facility] TRICHOMONAS VAGINALIS Not Detected 23.000 - 32.119 ppm 08/21/2024 6:26 AM EDT [facility] MYCOPLASMA GENITALIUM 0 19.961 - 24.689 ppm 08/21/2024 6:26 AM EDT [facility] MYCOPLASMA GENITALIUM Not Detected 19.961 - 24.689 ppm 08/21/2024 6:26 AM EDT [facility] Tissue 08/20/2024 3:53 PM EDT 08/21/2024 1:25 AM EDT us Lucía Ortiz DO LAB BLOOD ORDERABLES Final Resul t [facility] [address] [place] [address] * IGP,APTIMA HPV,AGE GDLN (08/20/2024 2:32 PM EDT) AGE GDLN ACOG TESTING Note . [facility] Comment: TESTS RESULT FLAG UNITS REF RANGE LAB Clinician Provided Cytology Information Source.............Cervix No. of containers..01 ThinPrep Vial Age Algo ACOG Haydee... 29- FLAG LEGEND: L-Low Normal,H-High Normal,LL-Alert Low,HH-Alert High <-Panic Low,>-Panic High,A-Abnormal,AA-Critical Abnormal Performed at: 01 =G [facility] [place] [address] [place] [address] Glory Schaffer MD, IGP, APTIMA HPV, RFX 16/18,45 Note . [facility] Comment: TESTS RESULT FLAG UNITS REF RANGE LAB DIAGNOSIS: 02 NEGATIVE FOR INTRAEPITHELIAL LESION OR MALIGNANCY. Specimen adequacy: 02 Satisfactory for evaluation. No endocervical component is identified. Performed by: 02 Tai Darling, Professor Of Rhetoric (ASC) . 02 Note: Note 02 The Pap [...] High,A-Abnormal,AA-Critical Abnormal Performed at: 02 WB [facility] [place] [address] [facility] [place] [address] Glory Schaffer MD, HPV APTIMA Negative Negative [facility] Comment: This nucleic acid amplification test detects fourteen high- risk HPV types (16,18,31,33,35,39,45,51,52,56,58,59,66,68) without differentiation. Performed at: =[facility] [id number] Sr. Vendor Management Associate: Glory Schaffer MD, Phone: [phone] Performed at: [address] [id number] Sr. Vendor Management Associate: Glory Schaffer MD, Phone: [phone] 08/20/2024 2:32 PM EDT 08/20/2024 9:44 PM EDT Narrative CLINISYNC - 08/23/2024 3:08 PM EDT BRUSH-SPATULA CERVIX Lucía Angel DO LAB BLOOD ORDERABLES Final Resul t Performing Organization Address [facility] Co de Phone Number [facility] * Pap Smear (08/20/2024 12:00 AM EDT) Swab Cervical swab / Unknown Lucía Angel DO LAB CYTOLOGY ORDERABLES Final Re sult Performing Organization Address City/[facility] Co de Phone Number EXTERNAL LAB from Last 3 Months Insurance [employer]
[2024-10-24 14:45] VITALS: BP 120/81; PULSE 77
--- OUTSIDE RECORDS SUMMARY | 2024-10-24 14:57 | XMS_ITS | CCD ---
Author Organization [facility] Care Team Providers Care Fisher Purse Seine Name Role Phone DR RORO GARNER Attending Unavailable DR RORO GARNER Consulting Unavailable DR RORO GARNER Admitting Unavailable MISC, DR TOPETE Primary Care Unavailable Ann-Marie Romero Primary Care Physician NO FAMILY, PHYSICIAN Primary Care Provider Unava ilMD Presley Gonzales Admit Provider MD Presley Timmons Attending Provider [phone] NONE, XXXX Primary Care Physician Unavailab Hosea Conklin Primary Care Physician Unavail able Presley Timmons Attending Unavailable Presley Timmons Admitting Unavailable NO FAMILY, PHYSICIAN Primary Care Unavailable REY ALAS Primary Care Physician [phone] Sandro, Alva George Attending Unavailable Jagdish Dunn [...] ORTIZ Attending Unavailable MANASA CONROY Referring Unavailable SHAINA MCCORMICK Attending Unavailable ZACK ORTIZ Attending Unavailable ZACK ORTIZ Referring Unavailable SHAINA MCCORMICK Attending Unavailable SHAINA MCCORMICK Referring Unavailable ZACK ORTIZ Attending Unavailable [...] q4hr for headache, 12 tab(s), Refill(s) 0, [id number], 165, cm, 09/15/20 22:47:00 EDT, Height/Length [...] day(s), # 28 cap(s), Refills(s) 0, Pharmacy: [facility] #[id number], 165, cm, 04/18/24 11:46:00 EST, Height/Length Dosing, 124.5, kg, 04/18/24 11:46:00 EST, Weight Dosing Start Date: 04/18/24 Stop Date: 04/25/24 Status: Ordered atogepant 60 MG Oral Tablet [Qulipta] (1 source) Start: 07-21-2023 take 1 tablet by mouth once daily Qulipta 60 mg oral tablet 60 mg = 1 tab(s), Oral, Daily, # 30 tab(s), Refills(s) 3, Pharmacy: [facility]/pharmacy #[id number], 165.1, cm, 07/08/23 12:52:00 EDT, Height/Length [...] day(s), # 14 cap(s), Refills(s) 0, Pharmacy: [facility]/pharmacy #[id number], 165.1, cm, 11/10/21 12:16:00 EDT, Height/Length Dosing, 128, kg, 07/17/21 9:33:00 EDT, Weight Dosing Start Date: 11/10/21 Stop Date: 11/17/21 Status: Ordered ciprofloxacin 500 mg oral tablet (6 sources) Quinolone Antimicrobial Start: 02-17-2022 take 1 tablet by mouth twice daily Cipro 500 mg Tab 500 mg = 1 tab(s), Oral, BID, # 14 tab(s), Refills(s) 0, Pharmacy: [facility]/pharmacy #[id number], 165.1, cm, 02/17/22 16:15:00 EST, Height/Length [...] pain, # 12 caplet(s), Refills(s) 0, Pharmacy: [facility]/pharmacy #[id number], 165, cm, 12/15/20 1:59:00 EDT, Height/Length [...] exceed 8 grams/day/single joint of upper extremities, [facility]/pharmacy #[id number], 165.1, cm, 01/11/23 16:14:00 EST, Height/Length [...] cramping, # 12 cap(s), Refills(s) 0, Pharmacy: [facility]/pharmacy #[id number], 165, cm, 10/17/22 13:07:00 EDT, Height/Length Dosing, 123.3, kg, 10/17/22 13:07:00 EDT, Weight Dosing Start Date: 10/17/22 Status: Ordered Flonase 0.05 mg/inh nasal spray (14 sources) Start: 09-18-2020 take 1 spray(s) nasal route once daily Flonase 0.05 mg/inh nasal spray 1 spray(s), Nasal, Daily, 16 gram, Refill(s) 3, each nostril, [facility]pharmacy #[id number], 165, cm, 09/18/20 9:51:00 EDT, Height/Length Dosing, 116, kg, 09/18/20 9:51:00 EDT, Weight Dosing Start Date: 09/18/20 Status: Ordered fluticasone propionate 0.05 mg/actuat metered dose nasal spray (3 sources) Corticosteroid Start: 09-18-2020 take 1 spray(s) nasal route once daily Flonase 0.05 mg/inh nasal spray 1 spray(s), Nasal, Daily, 16 gram, Refill(s) 3, each nostril, [facility]pharmacy [facility][id number], 165, cm, 09/18/20 9:51:00 EDT, Height/Length [...] antepartum, gestational diabetes method of control unspecified ([facility]) , Elevated glucose tolerance test Apply 1 Pad topically Daily Use four times daily to check FSBS. 150 each 3 10/17/2024 Active labetalol hydrochloride 300 mg oral tablet (12 sources) beta-Adrenergic Mariely Start: 10-08-2024 End: 10-08-2025 take 1 tablet by mouth in the morning, then take 1 tablet by mouth in the evening, then take 1 tablet by mouth at bedtime labetalol (Normodyne) 300 MG tablet Indications: Hypertension affecting in third trimester ([facility]) Take 1 tablet (300 mg) by mouth [...] for 10 day(s), 20 tab(s), Refill(s) 0, [facility]/pharmacy #[id number], 165.1, cm, 07/08/23 12:52:00 EDT, Height/Length Dosing, 127, kg, 07/08/23 12:52:00 EDT, Weight Dosing Start Date: 07/08/23 Stop Date: 07/18/23 Status: Ordered Start: 07-08-2023 take 1 tablet by lencho th every twelve hours [facility] Allergy Relief-D12 5-120 MG 12 hr tablet Take 1 tablet by mouth every 12 (twelve) hours 07/08/2023 Active metroNIDAZOLE 500 mg oral tablet (1 source) Nitroimidazole Antimicrobial Start: 02-17-2022 End: 02-24-2022 take 1 tablet by mouth every eight hours Flagyl 500 mg Tab 500 mg = 1 tab(s), Oral, q8hr, X 7 day(s), # 21 tab(s), Refills(s) 0, Pharmacy: [facility]/pharmacy #[id number], 165.1, cm, 02/17/22 16:15:00 EST, Height/Length [...] BID, # 28 tab(s), Refills(s) 0, Pharmacy: [facility]/pharmacy #[id number], 165, cm, 12/15/20 1:59:00 EDT, Height/Length Dosing, 113, kg, 12/15/20 1:59:00 EDT, Weight Dosing Start Date: 12/15/20 Status: Ordered Start: 10-01-2020 take 1 tablet by lencho th twice daily as needed for pain Naprosyn 500 mg Tab 500 mg = 1 tab(s), Oral, BID, PRN for pain, # 20 tab(s), Refills(s) 0, [id number] 165.1, cm, 11/10/21 12:16:00 EDT, Height/Length Dosing, 128, kg, 07/17/21 9:33:00 EDT, Weight Dosing Start Date: 11/10/21 Status: Ordered phenazopyridine hydrochloride 200 mg oral tablet (1 source) Start: 11-10-2021 End: 11-12-2021 take 1 tablet by mouth three times daily Pyridium 200 mg Tab 200 mg = 1 tab(s), Oral, TID, X 2 day(s), # 6 tab(s), Refills(s) 0, [id number], 165.1, cm, 11/10/21 12:16:00 EDT, Height/Length [...] q6hr, # 14 tab(s), Refills(s) 0, Pharmacy: [facility]/pharmacy #[id number], 165, cm, 06/04/21 14:38:00 EDT, Height/Length [...] day(s), # 15 tab(s), Refills(s) 0, Pharmacy: [facility]/pharmacy #[id number], 165.1, cm, 01/11/23 16:14:00 EST, Height/Length Dosing, 127, kg, 01/11/23 16:14:00 EST, Weight Dosing Start Date: 01/11/23 Stop Date: 01/16/23 Status: Ordered Ventolin HFA 90 mcg/inh Aerosol-Adpt (1 source) Start: 04-18-2024 take 1 puff(s) by inhalation every six hours for wheezing Ventolin HFA 90 mcg/inh Aerosol-Adpt 1 puff(s), Inhalation, q6hr for wheezing, 18 gram, Refill(s) 0, [facility]acy #[id number], 165, cm, 04/18/24 11:46:00 EST, Height/Length Dosing, 124.5, kg, 04/18/24 11:46:00 EST, Weight Dosing Start Date: 04/18/24 Status: Ordered Zofran ODT 4 mg Tab-Dis (20 sources) Start: 10-17-2022 take 1 tablet by mouth every eight hours as needed for nausea Zofran ODT 4 mg Tab-Dis 4 mg = 1 tab(s), Oral, q8hr, PRN Nausea/Vomiting, # 16 tab(s), Refills(s) 0, Pharmacy: [facility]/pharmacy #[id number], 165, cm, 10/17/22 13:07:00 EDT, Height/Length Dosing, 123.3, kg, 10/17/22 13:07:00 EDT, Weight Dosing Start Date: 10/17/22 Status: Ordered Start: 02-17-2022 take 1 tablet by lencho th every six hours as needed for nausea Zofran ODT 4 mg Tab-Dis 4 mg = 1 tab(s), Oral, q6hr, PRN Nausea/Vomiting, # 12 tab(s), Refills(s) 0, Pharmacy: [facility]/pharmacy #[id number], 165.1, cm, 02/17/22 16:15:00 EST, Height/Length Dosing, 122, kg, 02/17/22 16:15:00 EST, Weight Dosing Start Date: 02/17/22 Status: Ordered Start: 02-25-2021 take 1 tablet by lencho th every eight hours Zofran ODT 4 mg Tab-Dis 4 mg = 1 tab(s), Oral, q8hr, # 12 tab(s), Refills(s) 0, Pharmacy: [facility]/pharmacy #[id number], 165, cm, 02/24/21 23:21:00 EST, Height/Length Dosing, 112, kg, 02/24/21 23:21:00 EST, Weight Dosing Start Date: 02/25/21 Status: Ordered Start: 09-16-2020 take 1 tablet by lencho th every eight hours Zofran ODT 4 mg Tab-Dis 4 mg = 1 tab(s), Oral, q8hr, # 10 tab(s), Refills(s) 0, Pharmacy: [facility]/pharmacy #[id number], 165, cm, 09/15/20 22:47:00 EDT, Height/Length [...] meq/ml nasal spray (17 sources) Start: 09-18-2020 [place] Saline Mist 0.65% nasal spray 2 spray(s), Nasal, QID, 1 EA, Refill(s) 4, [id number], 165, cm, 09/18/20 9:51:00 EDT, Height/Length Dosing, 116, kg, 09/18/20 9:51:00 EDT, Weight Dosing Start Date: 09/18/20 Status: Ordered Start: 09-18-2020 [place] Saline Mis t 0.65% nasal spray 2 [...] 4 Chronic Other and delivery including normal (16 sources) Normal ; Translations: [Encounter for supervision [...] [31 weeks gestation of ] 10-08-2024 Episodic Residual codes; unclassified (2 sources) Gestation period, 33 weeks; Translations: [33 weeks gestation of ] 10-24-2024 Episodic Screening and history of mental health [...] Range Facility Urinalysis macro (dipstick) panel (U)on 10-24-2024 Bilirubin, UA Negative Negative - 4(70) +++ mg/dL [facility] Blood, UA Negative Negative - 50 Yossi/mcL [facility] Clarity, UA Clear [facility] Color, UA Yellow [facility] Glucose, UA Negative Negative - 1999(110) ++++ mg/dL [facility] Interpretation and review of laboratory results Abnormal [facility] Ketones, UA Negative Negative - 160(16) ++++ mg/dL [facility] Leukocytes, UA 1+ Negative - 500+++ Wild/mcL [facility] Nitrite, UA Negative Negative - Positive [facility] pH, UA 6 5 - 9 [facility] Protein, UA 1+ Negative - 2000(20) ++++ mg/dL [facility] Spec Grav, UA 1.015 1 - 1.03 [facility] Urobilinogen, UA 1.0 0.2 - 12 mg/dL [facility] ALL CBC WITH AUTO DIFFon BASOPHILS ABSOLUTE AUTO 0.1 N [facility] Basophils/100 WBC (Bld) 0.5 % 0.2 - 2.0 % [facility] Eosinophils/100 WBC (Bld) 2.7 % 0.9 - 7.0 % [facility] Erythrocyte distribution width (RBC) [Ratio] 14.4 % 11.0 - 15.0 % [facility] Hematocrit (Bld) [Volume fraction] 39.2 % 36.0 - 48.0 % [facility] Hemoglobin (Bld) [Mass/Vol] 13.3 g/dL 12.0 - 16.0 g/dL [facility] IMMATURE GRANULOCYTES ABS AUTO 0.04 High [facility] Immature granulocytes/100 WBC (Bld) 0.3 % 0.0 - 0.5 % [facility] Interpretation and review of laboratory results Abnormal [facility] LYMPHOCYTES ABSOLUTE AUTO 2.7 [facility] Lymphocytes/100 WBC (Bld) 22 % 20.5 - 60.0 % [facility] MCH (RBC) [Entitic mass] 27.7 pg 26.7 - 34.0 pg [facility] MCHC (RBC) [Mass/Vol] 33.9 g/dL 29.9 - 35.2 g/dL [facility] MCV (RBC) [Entitic vol] 81.7 fL 81.0 - 99.0 fL [facility] MONOCYTES ABSOLUTE AUTO 0.9 High N [facility] Monocytes/100 WBC (Bld) 7.6 % 1.7 - 12.0 % [facility] NEUTROPHILS ABSOLUTE AUTO 8.2 High [facility] Neutrophils/100 WBC (Bld) 66.9 % 43.0 - 75.0 % [facility] Platelet mean volume (Bld) [Entitic vol] 10 fL 9.5 - 13.5 fL [facility]H EO # 0.3 [facility] PLT 238 [facility] TB RBC 4.8 [facility] TB WBC 12.3 High [facility] US OB BPP W NON-STRESS on 10-17-[address] [address] Ultrasound Report Signed Patient: SABRINA RICHMOND MR#: [id number] : 1995 Acct:[id number] Age/Sex: 29 / F ADM Date: 10/17/24 Loc: [facility] 250-[address]: Zack Ortiz D.O. Ordering Physician: Zack Ortiz D.O. Date of Service: 10/17/24 Procedure(s): US OB BPP w non-stress Accession Number(s): [id number] cc: Zack Ortiz D.O.; Physician,Non-Staff [place] [address] Patient Name: SABRINA RICHMOND MRN: [id number] date: 1995 Sex: F Assigned Patient Location: [facility] Current Patient Location: [facility] Accession/Order Number: [id number] Exam Date: 10/17/2024 10:30 Report Date: 10/17/2024 [...] Kee M.D. 10/17/2024 11:04 AM Dictation Location: [facility] Electronically authenticated by: [id number] Y Date: 10/17/2024 11:04 Dictated By: Jane Kee M.D. Signed By: 10/17/24 1107 DD/ 1104 TD/TT: Primary Montessori Teacher: [facility] Radiology, Radiologist, - 10/17/2024 [place] [address] Ultrasound Report Signed Patient: SABRINA RICHMOND MR#: [id number] : 1995 Acct:[id number] Age/Sex: 29 / F ADM Date: 10/17/24 Loc: [facility] 250-[address]: Zack Ortiz D.O. Ordering Physician: Zack Ortiz D.O. Date of Service: 10/17/24 Procedure(s): US OB BPP w non-stress Accession Number(s): [id number] cc: Zack Ortiz D.O.; Physician,Non-Staff [place] [facility] [place] [id number] Patient Name: SABRINA RICHMOND MRN: [facility]:[id number] date: 1995 Sex: F Assigned Patient Location: [facility] Current Patient Location: [facility] Accession/Order Number: [id number] Exam Date: 10/17/2024 10:30 Report Date: 10/17/2024 [...] Kee M.D. 10/17/2024 11:04 AM Dictation Location: [place] [address] Electronically authenticated by: [id number] Y Date: 10/17/2024 11:04 Dictated By: Jane Kee M.D. Signed By: 10/17/24 1107 DD/ 1104 TD/TT: Primary Montessori Teacher: [facility] Radiology Study observation (narrative) [facility] US OB BPP W NON-STRESS Ordered By: Radiologist Radiology on 10-17-2024 [facility] Work Phone: Urinalysis macro (dipstick) panel (U)on 10-17-2024 Bilirubin, UA Negative Negative - 4(70) +++ mg/dL [facility] Blood, UA Negative Negative - 50 Yossi/mcL [facility] Clarity, UA Clear [facility] Color, UA Yellow [facility] Glucose, UA Negative Negative - 2000(110) ++++ mg/dL [facility] Interpretation and review of laboratory results Abnormal [facility] Ketones, UA Negative Negative - 160(16) ++++ mg/dL [facility] Leukocytes, UA Positive Negative - 500+++ Wild/mcL [facility] Comment on above: 2+ Nitrite, UA Negative Negative - Positive [facility] pH, UA 1 5 - 9 [facility] Protein, UA Positive Negative - 2000(20) ++++ mg/dL [facility] Comment on above: 1+ Spec Grav, UA 1 1 - 1.03 [facility] Urobilinogen, UA 1.0 0.2 - 12 mg/dL [facility] US OB BPP W NON-STRESS on 10-10-2024 [place] [address] Ultrasound Report Signed Patient: SABRINA RICHMOND MR#: [id number] : 1995 Acct:[id number] Age/Sex: 29 / F ADM Date: 10/10/24 Loc: [facility] 250-[address]: Zack Ortiz D.O. Ordering Physician: Zack Ortiz D.O. Date of Service: 10/10/24 Procedure(s): US OB BPP w non-stress Accession Number(s): [id number] cc: Zack Ortiz D.O.; Physician,Non-Staff [place] The [address] [address] Patient Name: SABRINA RICHMOND MRN: [facility]:[id number] date: 1995 Sex: F Assigned Patient Location: [facility] Current Patient Location: [facility] Accession/Order Number: [id number] Exam Date: 10/10/2024 14:02 Report Date: 10/10/2024 14:29 At the request of: ZACK ORTIZ DO Procedure: US OB BPP w non-stress Biophysical profile. Reason for exam: Gestational diabetes COMPARISON: 10/03/2024 TECHNIQUE: Transabdominal imaging of the gravid uterus was obtained. FINDINGS: The cane weigher reports a BPP of 8 out of 8. SCOOTER is normal at 11.7 cm. heart rate 134 bpm. US/US OB BPP w non-stress IMPRESSION: BPP 8 out of 8. Impression dictated by: Kahlil Voss Jr., D.O. 10/10/2024 2:29 PM Dictation Location: [place] [address] Electronically authenticated by: [id number] Y Date: 10/10/2024 14:29 Dictated By: Kahlil Voss M.D. Signed By: 10/10/24 1432 DD/ 1429 TD/TT: Primary Montessori Teacher: [facility] Radiology, Radiologist, MD - 10/10/2024 [place] [address] Ultrasound Report Signed Patient: SABRINA RICHMOND MR#: [id number] : 1995 Acct:[id number] Age/Sex: 29 / F ADM Date: 10/10/24 Loc: [facility] 250-[address]: Zack Ortiz D.O. Ordering Physician: Zack Ortiz D.O. Date of Service: 10/10/24 Procedure(s): US OB BPP w non-stress Accession Number(s): [id number] cc: Zack Ortiz D.O.; Physician,Non-Staff [place] [address] Patient Name: SABRINA RICHMOND MRN: [id number] date: 1995 Sex: F Assigned Patient Location: [facility] Current Patient Location: [facility] Accession/Order Number: [id number] Exam Date: 10/10/2024 14:02 Report Date: 10/10/2024 14:29 At the request of: ZACK ORTIZ DO Procedure: US OB BPP w non-stress Biophysical profile. Reason for exam: Gestational diabetes COMPARISON: 10/03/2024 TECHNIQUE: Transabdominal imaging of the gravid uterus was obtained. FINDINGS: The cane weigher reports a BPP of 8 out of 8. SCOOTER is normal at 11.7 cm. heart rate 134 bpm. US/US OB BPP w non-stress IMPRESSION: BPP 8 out of 8. Impression dictated by: Kahlil Voss Jr., D.O. 10/10/2024 2:29 PM Dictation Location: [place] [address] Electronically authenticated by: [id number] Y Date: 10/10/2024 14:29 Dictated By: Kahlil Voss M.D. Signed By: 10/10/24 1432 DD/ 1429 TD/TT: Primary Montessori Teacher: [facility] Radiology Study observation (narrative) [facility] US OB BPP W NON-STRESS Ordered By: Radiologist Radiology on 10-10-2024 [facility] Work Phone: Urinalysis macro (dipstick) panel (U)on 10-08-2024 Bilirubin, UA Negative Negative - 4(70) +++ mg/dL [facility] Blood, UA Negative Negative - 50 Yossi/mcL [facility] Clarity, UA Clear [facility] Color, UA Yellow [facility] Glucose, UA Negative Negative - 2000(110) ++++ mg/dL [facility] Interpretation and review of laboratory results Abnormal [facility] Ketones, UA Negative Negative - 160(16) ++++ mg/dL [facility] Leukocytes, UA Negative Negative - 500+++ Wild/mcL [facility] Nitrite, UA Negative Negative - Positive [facility] pH, UA 6 5 - 9 [facility] Protein, UA Negative Negative - 2000(20) ++++ mg/dL [facility] Spec Grav, UA 1.03 1 - 1.03 [facility] Urobilinogen, UA 1.0 0.2 - 12 mg/dL [facility] ALL BUNon 10-04-2024 Urea nitrogen [Mass/Vol] 6 mg/dL Low 7.0 - 18.0 mg/dL [facility] ALL URIC ACIDon 10-04-2024 Urate [Mass/Vol] 5.4 mg/dL 2.6 - 6.0 mg/dL [facility] 10-04-2024 ALT [Catalytic activity/Vol] 14 U/L 14 - 59 U/L [facility] 10-04-2024 AST [Catalytic activity/Vol] 14 U/L Low 15 - 37 U/L [facility] No Panel Informationon 10-04 Interpretation and review of laboratory results Abnormal [facility] CREATININEon 10-04-2024 Creatinine [Mass/Vol] 0.75 mg/dL 0.55 - 1.02 mg/dL [facility] GFR/1.73 sq M.predicted CKD-EPI (S/P/Bld) [Vol rate/Area] >60 >=60 mL/min/1.73m 2 [facility] EGFR-NON AF NEPALESE >60 >=60 mL/min/1.73m 2 [facility] ALL URIC ACIDon 10-03-2024 Urate [Mass/Vol] 5.3 mg/dL 2.6 - 6.0 mg/dL [facility] Basic Metabolic Panelon 09-15 Creatinine [Mass/Vol] 0.8 mg/dL 0.5 - 1.1 mg/dL [facility] CBC and differentialon 10-03 Neutrophils (Bld) [#/Vol] 11.9 10*3/uL Abnormal 1.30 - 8.30 10*3/uL [facility] WBC (Bld) [#/Vol] 15.2 10*3/mL Abnormal 3.3 - 10.0 10*3/mL [facility] 10-03-2024 ALT [Catalytic activity/Vol] 14 U/L 14 - 59 U/L [facility] 10-03-2024 Interpretation and review of laboratory results Abnormal [facility] Laboratory - Chemistry and C hemistry - challengeon 10-03-2024 AST [Catalytic activity/Vol] 13 U/L 13 - 35 U/L [facility] Urea nitrogen [Mass/Vol] 10 mg/dL 4 - 21 mg/dL [facility] No Panel Informationon 10-03 [facility] Interpretation and review of laboratory results Abnormal [facility] CREATININEon 10-03-2024 Creatinine [Mass/Vol] 0.84 mg/dL 0.55 - 1.02 mg/dL [facility] GFR/1.73 sq M.predicted CKD-EPI (S/P/Bld) [Vol rate/Area] >60 >=60 mL/min/1.73m 2 [facility] EGFR-NON AF NEPALESE >60 >=60 mL/min/1.73m 2 [facility] US OB BPP W NON-STRESS on 10-03-2024 [place] [address] Ultrasound Report Signed Patient: SABRINA RICHMOND MR#: [id number] : 1995 Acct:[id number] Age/Sex: 29 / F ADM Date: Loc: [facility] Attending Dr: Zack Ortiz D.O. Ordering Physician: Zack Ortiz D.O. Date of Service: 10/03/24 Procedure(s): US OB BPP w non-stress Accession Number(s): [id number] cc: Zack Ortiz D.O.; Physician,Non-Staff [place] [address] [address] Patient Name: SABRINA RICHMOND MRN: [id number] date: 1995 Sex: F Assigned Patient Location: [facility] Current Patient Location: [facility] Accession/Order Number: [id number] Exam Date: 10/03/2024 17:45 Report Date: 10/03/2024 [...] Tan M.D. 10/03/2024 5:46 PM Dictation Location: [place] [address] Electronically authenticated by: [id number] Y Date: 10/03/2024 17:46 Dictated By: Robi Tan D.O. Signed By: 10/03/241747 DD/ 45 TD/TT: Primary Montessori Teacher: [facility] Radiology, Radiologist, MD - 10/03/2024 [place] [address] Ultrasound Report Signed Patient: SABRINA RICHMOND MR#: [id number] : 1995 Acct:[id number] Age/Sex: 29 / F ADM Date: Loc: [facility] 251- Attending Dr: Zack Ortiz D.O. Ordering Physician: Zack Ortiz D.O. Date of Service: 10/03/24 Procedure(s): US OB BPP w non-stress Accession Number(s): [id number] cc: Zack Ortiz D.O.; Physician,Non-Staff [facility] The [address] [address] Patient Name: SABRINA RICHMOND MRN: [facility]:[id number] date: 1995 Sex: F Assigned Patient Location: [facility] Current Patient Location: [facility] Accession/Order Number: [id number] Exam Date: 10/03/2024 17:45 Report Date: 10/03/2024 [...] Tan M.D. 10/03/2024 5:46 PM Dictation Location: [employer] Electronically authenticated by: [id number] Y Date: 10/03/2024 17:46 Dictated By: Robi Tan D.O. Signed By: 10/03/241747 DD/ 45 TD/TT: Primary Montessori Teacher: [facility] Radiology Study observation (narrative) [facility] US OB BPP W NON-STRESS Ordered By: Radiologist Radiology on 10-03-2024 [facility] Work Phone: US OB FOLLOW UP TRANSABDOMIN [...] PHD at 04-Oct-2024 08:06:58 AM [facility] Normal Not Available Comment on above: Order Comment: US OB SCAN FOR GROWTH Estimated Date of Delivery: 12/06/24 Gestational Age as of 09/17/2024: 28w4d Urinalysis macro (dipstick) panel (U)on 10-03-2024 Bilirubin, UA Negative Negative - 4(70) +++ mg/dL [facility] Blood, UA Negative Negative - 50 Yossi/mcL [facility] Clarity, UA Clear [facility] Color, UA Yellow [facility] Glucose, UA Negative Negative - 2000(110) ++++ mg/dL [facility] Ketones, UA Negative Negative - 160(16) ++++ mg/dL [facility] Leukocytes, UA Positive Negative - 500+++ Wild/mcL [facility] Comment on above: 2+ Nitrite, UA Negative Negative - Positive [facility] pH, UA 6 5 - 9 [facility] Protein, UA Negative Negative - 2000(20) ++++ mg/dL [facility] Spec Grav, UA 1.01 1 - 1.03 [facility] Urobilinogen, UA 0.2 0.2 - 12 mg/dL [facility] US OB LIMITED 1+ [...] GDLNon AGE GDLN ACOG TESTING Note . [facility] Comment on above: TESTS RESULT FLAG U NITS REF RANGE LAB Clinician Provided Cytology Information Source.............Cervix No. of containers..01 ThinPrep Vial Age Ryan BARRAZA Haydee... 29 FLAG LEGEND: L-Low Normal,H-High Normal,LL-Alert Low,HH-Alert High <-Panic Low,>-Panic High,A-Abnormal,AA-Critical Abnormal Performed at: 01 =G [address] [address] Glory Schaffer MD, HPV APTIMA Negative Negative [facility] Comment on above: This nucleic acid am plification test detects fourteen high- risk HPV types (16,18,31,33,35,39,45,51,52,56,58,59,66,68) without differentiation. Performed at: =[address] [id number] Talent Management Manager: Glory Schaffer MD, Phone: [phone] Performed at: - [address] [id number] Talent Management Manager: Glory Schaffer MD, Phone: [phone] IGP, APTIMA HPV, RFX 16/18,45 Note . [facility] Comment on above: TESTS RESULT FLAG UN ITS REF RANGE LAB DIAGNOSIS: 02 NEGATIVE FOR INTRAEPITHELIAL LESION OR MALIGNANCY. Specimen adequacy: 02 Satisfactory for evaluation. No endocervical component is identified. Performed by: 02 Tai Darling Field Manager ([place] [facility]) . 02 Note: Note 02 The Pap [...] Low,>-Panic High,A-Abnormal,AA-Critical Abnormal Performed at: [address] [address] Glory Schaffer MD, BRUSH-SPATULA CERVIX [facility] RECURRENT VAGINITIS (HTRX)on 08-21-2024 ATOPOBIUM VAGINAE 0 [facility] ATOPOBIUM VAGINAE Not detected [facility] BVAB 2,3 (BACTERIAL VAGINOSIS ASSOCIATED BACTERIA 2, 3); MOBILUNCUS SPP 0 [facility] BVAB 2,3 (BACTERIAL VAGINOSIS ASSOCIATED BACTERIA 2, 3); MOBILUNCUS SPP Not detected [facility] FORREST ALBICANS, PARAPSILOSIS, TROPICALIS 0 [facility] Healthcare FORREST ALBICANS, PARAPSILOSIS, TROPICALIS Not detected [facility] FORREST GLABRATA 0 [facility] FORREST GLABRATA Not detected [facility] Healthcare FORREST KRUSEI 0 [facility] FORREST KRUSEI Not detected [facility] CHLAMYDIA TRACHOMATIS 0 NOM [facility] CHLAMYDIA TRACHOMATIS Not detected N [facility] GARDNERELLA VAGINALIS 0 NOM S [facility] GARDNERELLA VAGINALIS Not detected N [facility] MEGASPHAERA (TYPES 1, 2) 0 [facility] MEGASPHAERA (TYPES 1, 2) Not detected [facility] MYCOPLASMA GENITALIUM 0 NOM S [facility] MYCOPLASMA GENITALIUM Not detected N [facility] NEISSERIA GONORRHOEAE 0 NOM [facility] NEISSERIA GONORRHOEAE Not detected N [facility] TRICHOMONAS VAGINALIS 0 NOM [facility] TRICHOMONAS VAGINALIS Not detected N [facility] Healthcare [facility] Urinalysis macro (dipstick) panel (U)on 08-20-2024 Bilirubin, UA Negative Negative - 4(70) +++ mg/dL [facility] Blood, UA Negative Negative - 50 Yossi/mcL [facility] Clarity, UA Clear [facility] Color, UA Yellow [facility] Glucose, UA Negative Negative - 1999(110) ++++ mg/dL [facility] Interpretation and review of laboratory results Normal [facility] Ketones, UA Negative Negative - 160(16) ++++ mg/dL [facility] Leukocytes, UA Negative Negative - 500+++ Wild/mcL [facility] Nitrite, UA Negative Negative - Positive [facility] pH, UA 7 5 - 9 [facility] Protein, UA Negative Negative - 1999(20) ++++ mg/dL [facility] Spec Grav, UA 1.015 1 - 1.03 [facility] Urobilinogen, UA 0.2 0.2 - 12 mg/dL [facility] Urinalysis macro (dipstick) panel (U)on 07-24-2024 Bilirubin, UA Negative Negative - 4(70) +++ mg/dL [facility] Blood, UA Negative Negative - 50 Yossi/mcL [facility] Clarity, UA Clear [facility] Color, UA Yellow [facility] Glucose, UA Negative Negative - 1999(110) ++++ mg/dL [facility] Interpretation and review of laboratory results Normal [facility] Ketones, UA Negative Negative - 160(16) ++++ mg/dL [facility] Leukocytes, UA Negative Negative - 500+++ Wild/mcL [facility] Nitrite, UA Negative Negative - Positive [facility] pH, UA 6.5 5 - 9 [facility] Protein, UA Negative Negative - 1999(20) ++++ mg/dL [facility] Spec Grav, UA 1.025 1 - 1.03 [facility] Urobilinogen, UA 0.2 0.2 - 12 mg/dL [facility] US OB 14+ WEEKS ANATOMY SCAN [...] II, MD, PHD at 25-Jul-2024 08:22:22 AM [facility] Normal Not Available Comment on above: Order Comment: US OB ANATOMY SINGLE W US OB CERVICAL LENGTH Estimated Date of Delivery: 12/06/24 Gestational Age as of 06/18/2024: 15w4d Urinalysis macro (dipstick) panel (U)on 06-18-2024 Bilirubin, UA Negative Negative - 4(70) +++ mg/dL [facility] Blood, UA Negative Negative - 50 Yossi/mcL [facility] Clarity, UA Clear [facility] Color, UA Yellow [facility] Glucose, UA Negative Negative - 2000(110) ++++ mg/dL [facility] Interpretation and review of laboratory results Normal [facility] Ketones, UA Negative Negative - 160(16) ++++ mg/dL [facility] Leukocytes, UA Trace Negative - 500+++ Wild/mcL [facility] Nitrite, UA Negative Negative - Positive [facility] pH, UA 7 5 - 9 [facility] Protein, UA Negative Negative - 2000(20) ++++ mg/dL [facility] Spec Grav, UA 1.01 1 - 1.03 [facility] Urobilinogen, UA 0.2 0.2 - 12 mg/dL [facility] TBH DRUG SCREEN RAPID (URINE )on 05-28-2024 AMPHETAMINE SCREEN URINE Negative NEGATIVE [facility] BARBITURATES SCREEN URINE Negative NEGATIVE [facility] BENZODIAZEPINES SCREEN URINE Negative NEGATIVE [facility] BUPRENORPHINE SCREEN URINE Negative NEGATIVE [facility] Comment on above: DRUG [...] 300 ng/mL CANNABINOID SCREEN URINE Negative NEGATIVE [facility] COCAINE SCREEN URINE Negative NEGATIVE [facility] METHADONE SCREEN URINE Negative NEGATIVE NO [facility] METHAMPHETAMINES SCREEN URINE Negative NEGATIVE [facility] OPIATE SCREEN URINE Negative NEGATIVE [facility] OXYCODONE SCREEN URINE Negative NEGATIVE NO [facility] PHENCYCLIDINE SCREEN URINE Negative NEGATIVE [facility] TRICYCLIC ANTIDEPRESSANT URINE Negative NEGATIVE [facility] BOX TESTon 05-24-2024 BOX TEST SENT OUT [facility] BOX1 [facility] BOX2 05/24/24 [facility] ( test) Ql (U)o n 05-22-2024 Interpretation and review of laboratory results Abnormal [facility] Preg Test, Ur Positive Negative [facility] US Pelvis transvaginalon EXAM: US OB [...] II, MD, PHD at 20-May-2024 10:38:05 PM [facility]AG[facility] Una Webber MD - 05/20/2024 [...] II, MD, PHD at 20-May-2024 10:38:05 PM [facility] [place] US Pelvis transvaginalOrdere d By: Una Webber on 05-20-2024 Artaic Work Phone: US OB TRANSVAGINALon 025 US [...] II, MD, PHD at 20-May-2024 10:38:05 PM [facility] Normal Not Available Comment on above: Order Comment: US OB TRANSVAGINAL No LMP recorded. US Pelvis transvaginalon Radiology Study observation (narrative) [facility] Ambulatory Visit Summaryon 0 [...] a day asthma Refills: 2 Pickup at [facility]/pharmacy #[id number] New predniSONE (predniSONE 10 mg Tab) See instructions asthma take 2 tabs by mouth for 3 days, then take 1 tab by mouth for 3 days, then stop Pickup at [facility]/pharmacy #[id number] Unchanged albuterol (Albuterol (Eqv-ProAir HFA) 90 mcg/ inh inhalation aerosol) Inhalation Every 6 hours Unchanged albuterol (Ventolin HFA 90 mcg/ inh Aerosol-Adpt) 1 Puffs Inhalation Every 6 hours as needed for for wheezing Unchanged meclizine (meclizine 25 mg Tab) 1 Tablets By Mouth 3 times a day as needed for for dizziness Unchanged Non-Formulary Medication ( Vitamins) Pharmacy Information [facility]/pharmacy #[id number]: [address] [place], [place] [phone] Allergies No Known Allergies Problems Ongoing - [...] choosing us for your care. Roxanne Ellis [facility] [...] stop, # 9 tab(s), Refills(s) 0, Pharmacy: [facility]/pharmacy #[id number], 165, cm, 04/27/24 9:52:00 EDT, Height/Length [...] hours, # 9 tab(s), Refills(s) 1, Pharmacy: [facility]/pharmacy #[id number], 165, cm, 07/06/23 8:52:00 EDT, Height/Length [...] virus vac (more content not included)... Normal [facility] Comment on above: Result Comment: Elec tronically Signed By: JOAQUÍN RODRIGUEZ\.br\Date and Time Signed: 04/27/24 10:37 EDT ED Clinical Summaryon 2024 ED Clinical Summary ED Clinical Summary [place] [id number] ED Clinical Summary Person Information Name: SABRINA RICHMODN [facility] Age: 28 Years : 1995 Sex: Female Language: Citizen Of [place] PCP: JOAQUÍN RODRIGUEZ Marital Status: Phone: [phone] Visit Id: Visit Reason: Weakness or fatigue; [...] 14:10:02 04/18/2024 14:10:02 04/18/2024 14:10:02 ADDRESS: [address] [facility] [id number] PHYS DOC NOTES: MEDICAL INFORMATION: Prescriptions Given: New Medications [id number], [address] [place], [place] [phone], [phone] amoxicillin (amoxicillin 500 mg Cap) 2 Capsules [...] PATIENT EDUCATION INFORMATION: Instructions: Community-Acquired Pneumonia, Adult, Plsc-cu-Llqi Follow up: With: Address: When: REY ALAS [address] [place] [address] Business (1) In 3 days 04/21/2024 Comments: Call Dr for diagnosis based follow up DIAGNOSIS: Pneumonia Normal [facility] ED Note-Physicianon 04-19-19 ED Note-Physician ED Note-Physician [...] of Problems Differential Diagnosis: [] [facility] Data External documents reviewed: [] My [...] moving forward. Mark Fitzpatrick PA-C had a ocuu-go-detr interaction with the patient. I personally performed [...] day(s), # 28 cap(s), Refills(s) 0, Pharmacy: [facility]/pharmacy #[id number], 165, cm, 04/18/24 11:46:00 EST, Height/Length Dosing, 124.5, kg, 04/18/24 11:46:00 EST, Weight Dosing Influenza A&B Ag Rapid COVID Antigen ([facility]) Disposition Plan Patient Discharge Condition stable Discharge Disposition to home Discharge Prescription List Prescriptions amoxicillin 500 mg Cap, 1000 mg= 2 cap(s), Oral, q12hr Ventolin HFA 90 mcg/inh Aerosol-Adpt, 1 puff(s), Inhalation, q6hr, PRN Follow-up With When Contact Information REY ALAS In 3 days 04/21/2024 EST [address] [place] [address]- Business (1) Additional Instructions: Call Dr for diagnosis based follow up Patient Education Community-Acquired Pneumonia, Adult, Nbvt-gn-Tasy Attestation Patient seen and evaluated by the physician transition assistant. Attending physician was present in the emergency department and supervised care. This visit was performed by both the physician and an APC. I performed all aspects of the MDM as documented. This report was transcribed using voice recognition software. Every effo (more content not included)... Normal [facility] Comment on above: Result Comment: Elec tronically Signed By: Alva Jo M.D.\.br\Date and Time Signed: 04/18/24 18:02 EST\.br\Electronically Co-Signed By: Mark Jackman PA-C\.br\Date and Time Co-Signed: 04/18/24 16:19 EST ED Patient Summaryon 025 ED Patient Summary ED Patient Summary [place] [id number] Patient Discharge Instructions Person Information Name: SABRINA RICHMOND Age: 28 Years Arrival Date: 04/18/2024 11:36:25 Discharge Diagnosis: Pneumonia Primary Care Physician: JOAQUÍN RODRIGUEZ Provider Information Primary Provider: Alva Jo M.D. Advanced Tool And Die Technician:Mark Jackman PA-C The exam and treatment you received in the Emergency Department were for an urgent problem and are not intended as complete care. It is important that you follow up with a doctor, nurse practitioner, or physician???s transition assistant for ongoing care. If your symptoms [...] Instructions: With: Address: When: REY ALAS [address] [facility] [address] [place] [address] Business (1) In 3 days 04/21/2024 Comments: Call Dr for diagnosis based follow up In the event that this physician does not participate in your insurance network, please consult with your insurance company to find a nearby participating provider. Patient Education Materials: Community-Acquired Pneumonia, Adult, Qxlz-xl-Nwne A MESSAGE TO ALL PATIENTS REGARDING OPIOIDS PRESCRIPTION OPIOIDS: WHAT YOU NEED TO KNOW Prescription opioids can be used to help relieve bkmeuoiy-ye-tgxeja pain and are often prescribed following a [...] If you (more content not included)... Normal [facility] Influenza A&B Agon Influenzae A Ag Negative Normal Negative [facility] Comment on above: Performed By: #### 1 [id number] #### [facility] [address] [place] [address] Influenzae B Ag Negative Normal Negative [facility] Comment on above: Result Comment: Test sensitivity and specificity vary for age group, specimen type, antigen types, and prevalence of disease. Test results must be evaluated in conjunction with other clinical data available to the physician. Individuals who received nasally administered Influenza A vaccine may have positive test results up to 3 days after vaccination. Performed By: #### 1 [id number] #### [facility] [address] [place] [address] MICRO OTHER TESTSOrdered By: Mary Sears on 04-18-2024 Influenzae A Ag Negative (04/18/24 12:06 PM) Normal Negative [facility] Man Sero Influenzae B Ag Negative 1 (04/18/24 12:06 PM) Normal Negative [facility] Man Sero Comment on above: Interpretive Data: [...] NEG Ctl Pass (04/18/24 12:06 PM) Normal [facility] Man Sero Rapid COV Int POS Ctl Pass (04/18/24 12:06 PM) Normal [facility] Man Sero SARS-CoV+SARS-CoV-2 (COVID-19) Ag IA.rapid Ql (Resp) Not Detected 2 (04/18/24 12:06 PM) Normal Not Detected [facility] Man Sero Comment on above: Interpretive Data: Gini mccarty [employer] Veritor System for Rapid Detection of SARS-CoV-2 [...] terminated or revoked sooner. Rapid COVID Antigen ([facility])on 04-18-2024 Rapid COV Int NEG Ctl Pass Normal Fis [facility] Comment on above: Performed By: #### 2 [id number] #### [facility] [address] [place] [address] Rapid COV Int POS Ctl Pass Normal Fis her [facility] Comment on above: Performed By: #### 2 [id number] #### [facility] [address] [place] [address] SARS-CoV+SARS-CoV-2 (COVID-19) Ag IA.rapid Ql (Resp) Not detected Normal Not Detected [facility] Comment on above: Result Comment: The [place]??? System for Rapid Detection of SARS-CoV-2 is [...] For in vitro diagnostic use. In the [facility], only for use under an Emergency Use [...] or revoked sooner. Performed By: #### 2 [id number] #### Ellis [facility] [address] [place] [address] MRI Brain w/ + w/o Contrasto n [...] Vueway Contrast amount in ml's: 10 Normal [facility] Ambulatory Visit Summaryon 0 10-10-2023 Ambulatory Visit [...] 2:00 PM EDT With: JOAQUÍN RODRIGUEZ Where: [facility] [address] [place] [address]- You Need to Complete the Following MRI Brain w/ + w/o Contrast, 10/10/23, Routine, Order for Future Visit, Transport Mode: Ambulatory, Reason: Headache, No, No, Intractable migraine with aura Complicated migraine, pp_set_radiology_sub specialty, [facility] Someone Will Contact You Regarding These Appointments [facility] External Ambulatory Referral, Dermatology, [facility], [place], [...] choosing us for your care. Roxanne Ellis [facility] [...] Melanocytic nevi, unspecified) Referral to derm. Ordered: [facility] External Ambulatory Referral 2. Migraine (G43.909: Migraine, [...] Daily, # 30 tab(s), Refills(s) 3, Pharmacy: [facility]/pharmacy #[id number], 165.1, cm, 07/08/23 12:52:00 EDT, Height/Length [...] No K (more content not included)... Normal [facility] Comment on above: Result Comment: Elec tronically Signed By: BISHOP GHOSH, JOAQUÍN\.br\Date and Time Signed: 10/10/23 11:33 EDT Consent for Treatmenton 06-15 Consent for Treatment [id number] #1.00TIFF Normal [facility] Discharge Instructionson Discharge Instructions [id number] 5#1.00TIFF Normal [facility] ED Clinical Summaryon 2023 ED Clinical Summary [place] [id number] ED Clinical Summary Person Information Name: SABRINA RICHMOND [place] Age: 28 Years : 1995 Sex: Female Language: Citizen Of [place] PCP: JOAQUÍN RODRIGUEZ Marital Status: Phone: [phone] Visit Id: Visit Reason: Fever; Sinus Pain/Congestion; [...] 14:32:37 07/08/2023 14:32:37 07/08/2023 14:32:37 ADDRESS: [address] [facility] [id number] PHYS DOC NOTES: MEDICAL INFORMATION: Prescriptions Given: New Medications [facility]/pharmacy #[id number], [address] [place], [place] [phone], [phone] loratadine-pseudoeph edrine (loratadine-pseudoep hedrine 5 mg-120 mg [...] REY ALAS [address] [place] [address] Business (1) In 3 days 07/11/2023 DIAGNOSIS: Sinus headache; Vertigo Normal [facility] ED Note-Physicianon 07-08-19 ED Note-Physician Basic Information [...] for 10 day(s), 20 tab(s), Refill(s) 0, [facility]/pharmacy #[id number], 165.1, cm, 07/08/23 12:52:00 EDT, Height/Length Dosing, 127, kg, 07/08/23 12:52:00 EDT, Weight Dosing meclizine, 25 mg = 1 tab(s), Oral, TID, PRN for dizziness, # 15 tab(s), Refills(s) 0, Pharmacy: [facility]/pharmacy #[id number], 165.1, cm, 07/08/23 12:52:00 EDT, Height/Length [...] PRN Follow-up With When Contact Information REY HERNANDEZIRIS In 3 days 07/11/2023 EDT [address] [place] [address]- Business (1) Additional Instructions: Patient Education Vertigo [...] made to ensure accuracy, however, inadvertently computerized engraver apprentice decorative mistakes may be present. Appropriate healthcare PPE [...] year, 11/07/2019 (more content not included)... Normal [facility] Comment on above: Result Comment: Elec tronically [...] cool or dry air. Medicines ? Take bdzn-ibf-eypolev and prescription medicines only as told by [...] provider. Document Revised: 01/03/2022 Document Reviewed: 01/03/2022 [employer] Patient Education ? 2022 [employer] Neurology Vertigo Vertigo is the feeling [...] for stabil (more content not included)... Normal [facility] ED Patient Summaryon 024 ED Patient Summary [address] [address] Patient Discharge Instructions Person Information Name: SABRINA RICHMOND Age: 28 Years Arrival Date: 07/08/2023 12:47:49 Discharge Diagnosis: Sinus headache; Vertigo Primary Care Physician: JOAQUÍN RODRIGUEZ Provider Information Primary Provider: Jagdish Dunn DO Advanced Tool And Die Technician:Jarrell King PA-C The exam and treatment you received in the Emergency Department were for an urgent problem and are not intended as complete care. It is important that you follow up with a doctor, nurse practitioner, or physician?s transition assistant for ongoing care. If your symptoms [...] REY ALAS [address] [place] [address] [facility] (1) In 3 days 07/11/2023 In the event that this physician does not participate in your insurance network, please consult with your insurance company to find a nearby participating provider. Patient Education Materials: Vertigo; Sinus Pain A MESSAGE TO ALL PATIENTS REGARDING OPIOIDS PRESCRIPTION OPIOIDS: WHAT YOU NEED TO KNOW Prescription opioids can be used to help relieve spyzopxd-fa-qniwxq pain and are often prescribed following a [...] be struggling with addiction, tell your health tire care manager and ask for guidance or call [facility]?S National Helpline at 0-848-119-HELP. l (more content not included)... [facility] Prescriptions/Work Noteson 0 07-08-2023 Prescriptions/Work Notes [id number] 7#1.00TIFF [facility] XR Chest Single Viewon 07-07 XR Chest [...] in mGy = na DAP = na [facility] Ambulatory Visit Summaryon 0 07-06-2023 Ambulatory Visit Summary BASILIO SABRINA Sánchez :1995 Visit Date:07/06/2023 Ambulatory Visit Instructions [...] EDT With: JOAQUÍN RODRIGUEZ Where: [facility] [place] Normal [facility] Office/Clini c Noteon 07-06-2023 Family [...] hours, # 9 tab(s), Refills(s) 1, Pharmacy: [facility]/pharmacy #[id number], 165, cm, 07/06/23 8:52:00 EDT, Height/Length Dosing, 125.8, kg, 2... 4. Non-smoker (Z78.9: Other specified health status) stable Ordered: sumatriptan, 25 mg = 1 tab(s), Oral, Daily, PRN for migraine headache, may repeat dose after 2 hours up to a maximum of 200 mg in 24 hours, # 9 tab(s), Refills(s) 1, Pharmacy: [facility]/pharmacy #[id number], 165, cm, 07/06/23 8:52:00 EDT, Height/Length Dosing, 125.8, kg, 2... Follow-up With When Contact Information CIERSEZWSKI LUNCH WAGON OPERATOR-C, JOAQUÍN, FAM Within 4 weeks Additional Instructions: Patient [...] influenza vir (more content not included)... Normal [facility] Comment on above: Result Comment: Elec tronically [...] these instructions at home: Medicines ? Take fadg-tbl-fdwjoqu and prescription medicines only as told by [...] and dr (more content not included)... Normal [facility] CHEMISTRYOrdered By: SYSTEM SYSTEM on 01-11-2023 Anion gap [Moles/Vol] 10 mmol/L Normal 6 - 16 mEq/L F [facility] Remisol Calcium [Mass/Vol] 8.7 mg/dL Low 8.9 - 11. 1 mg/dL FT Remisol Chloride [Moles/Vol] 102 mmol/L Normal 101 - 1 11 mmol/L [facility] Remisol CO2 [Moles/Vol] 28 mmol/L Normal 21 - 31 mmol/L FT Remisol Creatinine [Mass/Vol] 1.1 mg/dL Normal 0.5 - 1.3 mg/dL [facility] Remisol GFR/1.73 sq M.predicted among non-blacks MDRD (S/P/Bld) [Vol rate/Area] 70 mL/min/1.73 m2 Normal >=59mL/min/1 .73 m2 [facility] Chem S Comment on above: Interpretive Data: C hronic kidney disease could be indicated at eGFR's of less than 60 mL/min/1.73m2. Kidney failure is indicated at less than 15 mL/min/1.73m2. Glucose [Mass/Vol] 93 mg/dL Normal 55 - 199 mg/dL [facility] Remisol Comment on above: Interpretive Data: I f this glucose result represents a fasting glucose, interpretation should refer to the following reference range: 55-99 mg/dL Magnesium [Mass/Vol] 2.3 mg/dL Normal 1.3 - 2 .4 mg/dL [facility] Remisol Potassium [Moles/Vol] 3.5 mmol/L Normal 3.5 - 5.3 mmol/L [facility] Remisol Sodium [Moles/Vol] 136 mmol/L Normal 135 - 145 mmol/L [facility] Urea nitrogen [Mass/Vol] 13 mg/dL Normal 5 - 21 mg/dL [facility] Remisol Urea nitrogen/Creatinine [Mass ratio] 12 mg/mg Normal 10 - 20 [facility] HEMATOLOGYOrdered By: SYSTEM SYSTEM on 01-11-2023 Basophils/100 WBC (Bld) 0.9 % Normal 0.0 - 2.0 % [facility] HemeAutoSS Basophils/Leukocytes Auto (Bld) [Pure # fraction] 0.0 E9/L Normal 0.0 - 0.2 E9/L [facility] HemeAutoSS Eosinophils/100 WBC (Bld) 3.2 % Normal [...] 5.3 E12/L Normal 4.3 - 5.9 E12/L [facility] HemeAutoSS WBC corrected for nucl RBC Auto (Bld) [#/Vol] 4.8 E9/L Normal 4.0 - 11.0 E9/L [facility] HemeAutoSS CHEMISTRYOrdered By: SYSTEM SYSTEM on 01-08-2023 [...] Ag Negative (01/06/23 3:06 PM) Normal Negative [facility] Sero Influenzae B Ag Negative 1 (01/06/23 3:06 PM) Normal Negative [facility] Sero Comment on above: Interpretive Data: T [...] NEG Ctl Pass (01/06/23 3:06 PM) Normal [facility] Sero Rapid COV Int POS Ctl Pass (01/06/23 3:06 PM) Normal [facility] Sero SARS-CoV+SARS-CoV-2 (COVID-19) Ag IA.rapid Ql (Resp) Not Detected 2 (01/06/23 3:06 PM) Normal Not Detected [facility] Man Sero Comment on above: Interpretive Data: Gini mccarty Cubicleitor System for Rapid Detection of SARS-CoV-2 is [...] other viruses or pathogens; and, in the [facility], this test is only authorized [...] mg/dL Normal 8.9 - 11. 1 mg/dL [facility] Chloride [Moles/Vol] 111 mmol/L Normal 101 - 1 11 mmol/L [facility] CO2 [Moles/Vol] 25 mmol/L Normal 21 - 31 mmol/L [facility] Creatinine [Mass/Vol] 0.9 mg/dL Normal 0.5 - 1.3 mg/dL [facility] GFR/1.73 sq M.predicted among non-blacks MDRD (S/P/Bld) [Vol rate/Area] 89 mL/min/1.73 m2 Normal >=59mL/min/1 .73 m2 [facility] Chem S Globulin (S) [Mass/Vol] 3.9 g/dL Normal 1.4 - 4.0 gm/dL [facility] Glucose [Mass/Vol] 96 mg/dL Normal 55 - 199 mg/dL [facility] Lipase [Catalytic activity/Vol] 39 U/L Normal 13 - 58 unit/L [facility] Potassium [Moles/Vol] 4.0 mmol/L Normal 3.5 - 5.3 mmol/L [facility] Protein [Mass/Vol] 7.7 g/dL Normal 6.0 - 7.8 gm/dL [facility] Sodium [Moles/Vol] 140 mmol/L Normal 135 - 145 mmol/L [facility] Urea nitrogen [Mass/Vol] 12 mg/dL Normal 5 - 21 mg/dL [facility] Urea nitrogen/Creatinine [Mass ratio] 13 mg/mg Normal 10 - 20 [facility] HEMATOLOGYOrdered By: SYSTEM SYSTEM on 10-17-2022 Basophils/100 WBC (Bld) 0.5 % Normal 0.0 - 2.0 % [facility] HemeAutoSS Basophils/Leukocytes Auto (Bld) [Pure # fraction] [...] PM) Normal Negative [facility] UA Auto SS Painter.plasma/Painter. RBC (Bld) [Mass ratio] 0-3 /HPF Normal [...] Desc Clean Catch (10/17/22 4:33 PM) Normal [facility] UA Auto SS Urobilinogen Qn (U) [id number] {Juma'U}/dL Normal 0.0 - 1.0 EU/dL [facility] UA Auto SS WBC Auto Ql (U) Negative (10/17/22 4:33 PM) Normal Negative [facility] UA Auto SS WBC LM.HPF (Urine sed) [#/Area] 0-5 /HPF Normal 0-5/HPF [facility] UA Auto SS CHEMISTRYOrdered By: SYSTEM SYSTEM [...] Ql (Bld) Present (02/17/22 4:25 PM) Normal [facility] HemeManSS Erythrocyte distribution width (RBC) [Ratio] 15.5 [...] 75.9 fL Low 80.0 - 100.0 fL [facility] HemeAutoSS Microcytes Ql (Bld) Present (02/17/22 4:25 [...] hCG Ql Negative (02/17/22 4:25 PM) Normal [facility] Sero URINALYSISOrdered By: Pancho Quick on [...] PM) Normal Negative [facility] UA Auto SS Painter.plasma/Painter. RBC (Bld) [Mass ratio] 0-3 /HPF Normal [...] [facility] UA Auto SS Urobilinogen Qn (U) [id number] {Juma'U}/dL Normal 0.0 - 1.0 EU/dL [facility] UA Auto SS WBC Auto Ql (U) Negative (02/17/22 7:01 PM) Normal Negative [facility] UA Auto SS WBC LM.HPF (Urine sed) [#/Area] 0-5 /HPF Normal 0-5/HPF [facility] UA Auto SS SEROLOGYOrdered By: Chio garcia on 11-10-2021 HCG.beta subunit (U) [Moles/Vol] Negative Normal [facility] Man Sero URINALYSISOrdered By: Cailin Sanders on [...] PM) Normal Negative [facility] UA Auto SS Painter.plasma/Painter. RBC (Bld) [Mass ratio] 0-3 /HPF Normal [...] PM) Invalid Interpretation Code 1.005 - 1.030 [facility] UA Auto SS UA Spec Desc Clean Catch (11/10/21 12:40 PM) Normal [facility] UA Auto SS Urobilinogen Qn (U) 0.5220254 {Juma'U}/dL Normal 0.0 - 1.0 EU/dL [facility] UA Auto SS WBC Auto Ql (U) 3+ *ABN* (11/10/21 12:40 PM) Invalid Interpretation Code Negative [facility] UA Auto SS WBC LM.HPF (Urine sed) [#/Area] 16-25 /HPF Invalid Interpretation Code 0-5/HPF [facility] UA Auto SS Basophils Auto (Bld) [#/Vol] Ordered By: PRESLEY TIMMONS on 09-13-2021 Basophils (Bld) [#/Vol] 0.0 10*3/uL 0.0-0.2 [facility] Basophils/100 WBC Auto (Bld) Ordered By: PRESLEY TIMMONS on 09-13-2021 Basophils/100 WBC (Bld) 0.3 % . [facility] Blood hemoglobin measurement (mass/volume)Ordered By: PRESLEY TIMMONS on 09-13-2021 Hemoglobin (Bld) [Mass/Vol] 11.7 g/dL 11.8-15.4 [facility] Blood leukocytes automated c ount (number/volume)Ordered By: PRESLEY TIMMONS on 09-13-2021 WBC (Bld) [#/Vol] 13.1 10*3/uL 4.5-11.0 [facility] Complete Blood Count Auto Di ffon 09-13-2021 Basophils (Bld) [#/Vol] 0.0 10*3/uL Normal 0.0-0.2 [facility] Comment on above: Order Comment: Comme nt Draw at 630 am Result Comment: PERF ORMED BY: [place] [address] PATHOLOGIST LINING MACHINE TENDER SANDY PEREZ M.D. Performed By: #### C BC #### [address] Basophils/100 WBC (Bld) 0.3 % Normal . [facility] Comment on above: Order Comment: Comme nt Draw at 630 am Performed By: #### C BC #### [place] [address] [place] Eosinophils (Bld) [#/Vol] 0.1 10*3/uL Normal 0.0-0.45 [facility] Comment on above: Order Comment: Comme nt Draw at 630 am Performed By: #### C BC #### [address] Eosinophils/100 WBC (Bld) 0.8 % Normal . [facility] Comment on above: Order Comment: Comme nt Draw at 630 am Performed By: #### C BC #### [address] Erythrocyte distribution width (RBC) [Ratio] 15.3 % Normal 11.9-15.3 [facility] Comment on above: Order Comment: Comme nt Draw at 630 am Performed By: #### C BC #### [address] Hematocrit (Bld) [Volume fraction] 35.2 % Normal 34.0-46.4 [facility] Comment on above: Order Comment: Comme nt Draw at 630 am Performed By: #### C BC #### [address] Hemoglobin (Bld) [Mass/Vol] 11.7 g/dL Low 11.8-15.4 [facility] Comment on above: Order Comment: Comme nt Draw at 630 am Performed By: #### C BC #### [place] [address] [place] Lymphocytes (Bld) [#/Vol] 2.4 10*3/uL Normal 1.00-4.8 [facility] Comment on above: Order Comment: Comme nt Draw at 630 am Performed By: #### C BC #### [place] [address] [place] Lymphocytes/100 WBC (Bld) 18.5 % Normal . [facility] Comment on above: Order Comment: Comme nt Draw at 630 am Performed By: #### C BC #### [address] MCH (RBC) [Entitic mass] 27.9 pg Normal 24.7-34.3 [facility] Comment on above: Order Comment: Comme nt Draw at 630 am Performed By: #### C BC #### [address] MCV (RBC) [Entitic vol] 83.6 fL Normal 80-[address] [facility] Comment on above: Order Comment: Comme nt Draw at 630 am Performed By: #### C BC #### [address] Mean Corpuscular HGB Conc 33.3 g/dL Normal 32.0-35.0 [facility] Comment on above: Order Comment: Comme nt Draw at 630 am Performed By: #### C BC #### [address] Monocytes (Bld) [#/Vol] 0.9 10*3/uL High 0.0-0.8 [facility] Comment on above: Order Comment: Comme nt Draw at 630 am Performed By: #### C BC #### [address] Monocytes/100 WBC (Bld) 6.5 % Normal . [facility] Comment on above: Order Comment: Comme nt Draw at 630 am Performed By: #### C BC #### [place] [address] [place] Neutrophils (Bld) [#/Vol] 9.7 10*3/uL High 1.8-7.7 [facility] Comment on above: Order Comment: Comme nt Draw at 630 am Performed By: #### C BC #### [address] Neutrophils/100 WBC (Bld) 73.9 % Normal . [facility] Comment on above: Order Comment: Comme nt Draw at 630 am Performed By: #### C BC #### [address] Nucleated RBC/100 WBC (Bld) [Ratio] 0.1 % Normal 0-0.5 [facility] Comment on above: Order Comment: Comme nt Draw at 630 am Performed By: #### C BC #### [address] Platelet mean volume (Bld) [Entitic vol] 7.2 fL Normal 6.3-10.7 [facility] Comment on above: Order Comment: Comme nt Draw at 630 am Performed By: #### C BC #### [address] Platelets (Bld) [#/Vol] 237 10*3/uL Normal 150-450 [facility] Comment on above: Order Comment: Comme nt Draw at 630 am Performed By: #### C BC #### [address] RBC (Bld) [#/Vol] 4.21 10*6/uL Normal 3.60-5.00 [facility] Comment on above: Order Comment: Comme nt Draw at 630 am Performed By: #### C BC #### [address] WBC (Bld) [#/Vol] 13.1 10*3/uL High 4.5-11.0 [facility] Comment on above: Order Comment: Comme nt Draw at 630 am Performed By: #### C BC #### [address] Eosinophils Auto (Bld) [#/Vo l]Ordered By: PRESLEY TIMMONS on 09-13-2021 Eosinophils (Bld) [#/Vol] 0.1 10*3/uL 0.0-0.45 [facility] Eosinophils/100 WBC Auto (Bl d)Ordered By: PRESLEY TIMMONS on 09-13-2021 Eosinophils/100 WBC (Bld) 0.8 % . [facility] Erythrocyte distribution wid th Auto (RBC) [Ratio]Ordered By: PRESLEY TIMMONS on 09-13-2021 Erythrocyte distribution width (RBC) [Ratio] 15.3 % 11.9-15.3 [facility] Hematocrit Auto (Bld) [Volum e fraction]Ordered By: PRESLEY TIMMONS on 09-13-2021 Hematocrit (Bld) [Volume fraction] 35.2 % 34.0-46.4 [facility] Laboratory - Hematology and Cell countsOrdered By: PRESLEY TIMMONS on 09-13-2021 Nucleated RBC/100 WBC (Bld) [Ratio] 0.1 % 0-0.5 [facility] Lymphocytes Auto (Bld) [#/Vo l]Ordered By: PRESLEY TIMMONS on 09-13-2021 Lymphocytes (Bld) [#/Vol] 2.4 10*3/uL 1.00-4.8 [facility] Lymphocytes/100 WBC Auto (Bl d)Ordered By: PRESLEY TIMMONS on 09-13-2021 Lymphocytes/100 WBC (Bld) 18.5 % . [facility] MCH Auto (RBC) [Entitic mass ]Ordered By: PRESLEY TIMMONS on 09-13-2021 MCH (RBC) [Entitic mass] 27.9 pg 24.7-34.3 [facility] MCHC Auto (RBC) [Mass/Vol]Or dered By: PRESLEY TIMMONS on 09-13-2021 MCHC (RBC) [Mass/Vol] 33.3 g/dL 32.0-35.0 [facility] MCV Auto (RBC) [Entitic vol] Ordered By: PRESLEY TIMMONS on 09-13-2021 MCV (RBC) [Entitic vol] 83.6 fL 80-[address] [facility] Monocytes Auto (Bld) [#/Vol] Ordered By: PRESLEY TIMMONS on 09-13-2021 Monocytes (Bld) [#/Vol] 0.9 10*3/uL 0.0-0.8 [facility] Monocytes/100 WBC Auto (Bld) Ordered By: PRESLEY TIMMONS on 09-13-2021 Monocytes/100 WBC (Bld) 6.5 % . [facility] Neutrophils Auto (Bld) [#/Vo l]Ordered By: PRESLEY TIMMONS on 09-13-2021 Neutrophils (Bld) [#/Vol] 9.7 10*3/uL 1.8-7.7 [facility] Neutrophils/100 WBC Auto (Bl d)Ordered By: PRESLEY TIMMONS on 09-13-2021 Neutrophils/100 WBC (Bld) 73.9 % . [facility] Platelet mean volume Auto (B ld) [Entitic vol]Ordered By: PRESLEY TIMMONS on 09-13-2021 Platelet mean volume (Bld) [Entitic vol] 7.2 fL 6.3-10.7 [facility] Platelets Auto (Bld) [#/Vol] Ordered By: PRESLEY TIMMONS on 09-13-2021 Platelets (Bld) [#/Vol] 237 10*3/uL 150-450 [facility] RBC Auto (Bld) [#/Vol]Ordere d By: PRESLEY TIMMONS on 09-13-2021 RBC (Bld) [#/Vol] 4.21 10*6/uL 3.60-5.00 [facility] Albumin [Mass/volume] in Ser um or PlasmaOrdered By: PRESLEY TIMMONS on 09-12-2021 Albumin [Mass/Vol] 2.3 g/dL 3.2-5.5 [facility] Comprehensive Metabolic Pane brian 09-12-2021 Albumin [Mass/Vol] 2.3 g/dL Low 3.2-5.5 [facility] Comment on above: Performed By: #### C MP #### [facility] [address] Albumin/Globulin [Mass ratio] 0.6 {ratio} Normal [facility] Comment on above: Performed By: #### C MP #### [facility] [address] [place] [id number] [place] ALP [Catalytic activity/Vol] 183 U/L High 32-92 [facility] Comment on above: Performed By: #### C MP #### [facility] [address] [place] [id number] [facility] ALT [Catalytic activity/Vol] 15 U/L Normal 10-60 [facility] Comment on above: Performed By: #### C MP #### [facility] [address] AST [Catalytic activity/Vol] 15 U/L Normal 10-42 [facility] Comment on above: Performed By: #### C MP #### [facility] [address] Bilirubin [Mass/Vol] 0.7 mg/dL Normal 0.3-1.2 [facility] Comment on above: Performed By: #### C MP #### [address] Calcium [Mass/Vol] 8.7 mg/dL Normal 8.2-10.2 [facility] Comment on above: Performed By: #### C MP #### [address] Chloride [Moles/Vol] 102 mmol/L Normal 95-114 [facility] Comment on above: Performed By: #### C MP #### [address] CO2 [Moles/Vol] 22.9 mmol/L Normal 22.0-30.0 [facility] Comment on above: Performed By: #### C MP #### [address] Creatinine [Mass/Vol] 0.69 mg/dL Normal 0.44-1.03 [facility] Comment on above: Performed By: #### C MP #### [place] [address] [place] Creatinine Clr Calc Pharmacy 152.06 [facility] Comment on above: Result Comment: PERF ORMED BY: [place] [address] PATHOLOGIST LINING MACHINE TENDER SANDY PEREZ M.D. Performed By: #### C MP #### [address] Estimated GFR ( Brenda > 60 Normal [facility] Comment on above: Result Comment: GFR estimated reference range: According to KDOQI guidelines, <60 ml/min/1.73m2 is sufficient to diagnose a patient with chronic kidney disease. Performed By: #### C MP #### [address] Estimated GFR (Non- Am > 60 Normal [facility] Comment on above: Performed By: #### C MP #### [address] Globulin (S) [Mass/Vol] 3.7 g/dL Normal [facility] Comment on above: Performed By: #### C MP #### [address] Glucose [Mass/Vol] 97 mg/dL Normal 70-100 [facility] Comment on above: Result Comment: [place] Glucose Reference Range is dependent on time and content of last meal. Glucose of more than 200 mg/dL in a nonstressed, ambulatory subject supports the diagnosis of Diabetes Mellitus. ADA recommended reference range Performed By: #### C MP #### [address] Potassium [Moles/Vol] 3.6 mmol/L Normal 3.5-5.1 [facility] Comment on above: Performed By: #### C MP #### [address] Protein [Mass/Vol] 6.0 g/dL Low 6.1-7.9 [facility] Comment on above: Performed By: #### C MP #### [address] Sodium [Moles/Vol] 136 mmol/L Normal 136-146 [facility] Comment on above: Performed By: #### C MP #### [address] Urea nitrogen [Mass/Vol] 6 mg/dL Low 9-23 [facility] Comment on above: Performed By: #### C MP #### [place] [address] [place] Creatinine and Glomerular fi ltration rate.predicted panel (S/P/Bld)Ordered By: PRESLEY TIMMONS on 09-12-2021 Creatinine [Mass/Vol] 0.69 mg/dL 0.44-1.03 [facility] Estimated glomerular filtrat ion rate (GFR) non- AmericanOrdered By: PRESLEY TIMMONS on 09-12-2021 GFR/1.73 sq M.predicted among non-blacks MDRD (S/P/Bld) [Vol rate/Area] > 60 mL/Min [facility] Globulin Calc (S) [Mass/Vol] Ordered By: PRESLEY TIMMONS on 09-12-2021 Globulin (S) [Mass/Vol] 3.7 g/dL [facility] No Panel InformationOrdered By: PRESLEY TIMMONS on 09-12-2021 Estimated GFR () > 60 mL/Min [facility] Comment on above: GFR estimated refere nce range: According to KDOQI guidelines, <60 ml/min/1.73m2 is sufficient to diagnose a patient with chronic kidney disease. Pharmacy Creatinine Clearance (Chem 152.06 [facility] Protein [Mass/volume] in Ser um or PlasmaOrdered By: PRESLEY TIMMONS on 09-12-2021 Protein [Mass/Vol] 6.0 g/dL 6.1-7.9 [facility] Serum or plasma alanine hutton otransferase measurement without P-5'-P (enzymatic activiOrdered By: PRESLEY TIMMONS on 09-12-2021 ALT No additional P-5'-P [Catalytic activity/Vol] 15 U/L 10-60 [facility] Serum or plasma albumin/glob ulin mass ratioOrdered By: PRESLEY TIMMONS on 09-12-2021 Albumin/Globulin [Mass ratio] 0.6 {ratio} [facility] Serum or plasma alkaline lamont sphatase measurement (enzymatic activity/volume)Ordered By: PRESLEY TIMMONS on 09-12-2021 ALP [Catalytic activity/Vol] 183 U/L 32-92 [facility] Serum or plasma aspartate am inotransferase measurement (enzymatic activity/volume)Ordered By: PRESLEY TIMMONS on 09-12-2021 AST [Catalytic activity/Vol] 15 U/L 10-42 [facility] Serum or plasma calcium carlie urement (mass/volume)Ordered By: PRESLEY TIMMONS on 09-12-2021 Calcium [Mass/Vol] 8.7 mg/dL 8.2-10.2 [facility] Serum or plasma chloride irwin surement (moles/volume)Ordered By: PRESLEY TIMMONS on 09-12-2021 Chloride [Moles/Vol] 102 mmol/L 95-114 [facility] Serum or plasma glucose carlie urement (mass/volume)Ordered By: PRESLEY TIMMONS on 09-12-2021 Glucose [Mass/Vol] 97 mg/dL 70-100 [facility] Comment on above: ADA recommended refe rence range Random Glucose Reference Range is dependent on time and content of last meal. Glucose of more than 200 mg/dL in a nonstressed, ambulatory subject supports the diagnosis of Diabetes Mellitus. Serum or plasma potassium me asurement (moles/volume)Ordered By: PRESLEY TIMMONS on 09-12-2021 Potassium [Moles/Vol] 3.6 mmol/L 3.5-5.1 [facility] Serum or plasma sodium measu rement (moles/volume)Ordered By: PRESLEY TIMMONS on 09-12-2021 Sodium [Moles/Vol] 136 mmol/L 136-146 [facility] Serum or plasma total biliru bin measurement (mass/volume)Ordered By: PRESLEY TIMMONS on 09-12-2021 Bilirubin [Mass/Vol] 0.7 mg/dL 0.3-1.2 [facility] Serum or plasma total carbon dioxide measurement (moles/volume)Ordered By: PRESLEY TIMMONS on 09-12-2021 CO2 [Moles/Vol] 22.9 mmol/L 22.0-30.0 [facility] Serum or plasma urea nitroge n measurement (mass/volume)Ordered By: PRESLEY TIMMONS on 09-12-2021 Urea nitrogen [Mass/Vol] 6 mg/dL 11-06 [facility] Amphetamine Screen Ql (U)Ord ered By: PRESLEY TIMMONS on 09-11-2021 Amphetamines Ql (U) Negative Negative [facility] Barbiturates [Presence] in U rineOrdered By: PRESLEY TIMMONS on 09-11-2021 Barbiturates Ql (U) Negative Negative [facility] Benzodiazepines [Presence] i n UrineOrdered By: PRESLEY SHANELLE on 09-11-2021 Benzodiazepines Ql (U) Negative Negative [facility] Bilirubin Auto test strip Ql (U)Ordered By: PRESLEY TIMMONS on 09-11-2021 Bilirubin Ql (U) Negative Negative [facility] COVID-19 Antigenon 2 COVID-19 Antigen Healthcare [...] developed and its performance characteristic determined by [employer] and validated at [facility]. This test has not been FDA [...] for SARS Antigen by [employer] PERFORMED BY: [facility] [place] [address] PATHOLOGIST LINING MACHINE TENDER SANDY PEREZ M.D. Normal [facility] Comment on above: Performed By: #### C OVID-19 CHANEL, SOFIANEG #### [place] [id number] [place] COVID-19 SOFIAOrdered By: MANJU TIMMONS on 09-11-2021 SARS-CoV+SARS-CoV-2 (COVID-19) Ag IA.rapid Ql (Resp) Negative Negative [facility] Comment on above: This is a duplicate Chanel SARS Antigen (IVET) result to be used for statistical tracking purpose only. Chlamydia trachomatis DNA [P resence] in Specimen by EMMA with probe detectionOrdered By: PRESLEY TIMMONS on 09-11-2021 C. trachomatis DNA EMMA+probe Ql (Unsp spec) Negative Negative [facility] Chlamydia/GC/Trich NAAon Chlamydia Trachomotis, EMMA Negative Normal Negative [facility] Comment on above: Performed By: #### G CCHLAMTRI #### [facility] , Neisseria Gonorrhoeae, EMMA Negative Normal Negative [facility] Comment on above: Performed By: #### G CCHLAMTRI #### [facility] , Trichomonas EMMA Negative Normal Negative [facility] Comment on above: Result Comment: Perf ormed at: =G - [facility] [address] [id number] Talent Management Manager: Glory Schaffer MD, Phone: [phone] PERFORMED BY: [place] [address] PATHOLOGIST LINING MACHINE TENDER SANDY PEREZ M.D. Performed By: #### G CCHLAMTRI #### [facility] , Complete Blood Count Auto Di ffon 09-11-2021 Basophils (Bld) [#/Vol] 0.1 10*3/uL Normal 0.0-0.2 [facility] Comment on above: Result Comment: PERF ORMED BY: [address] [address] PATHOLOGIST LINING MACHINE TENDER SANDY PEREZ M.D. Performed By: #### R AL W RFX #### [facility] , #### CBC #### [facility] [address] [place] [address] [place] Basophils/100 WBC (Bld) 1.1 % Normal . [facility] Comment on above: Performed By: #### R AL W RFX #### [facility] , #### CBC #### [address] Eosinophils (Bld) [#/Vol] 0.2 10*3/uL Normal 0.0-0.45 [facility] Comment on above: Performed By: #### R AL W RFX #### [facility] , #### CBC #### [address] Eosinophils/100 WBC (Bld) 1.7 % Normal . [facility] Comment on above: Performed By: #### R AL W RFX #### [facility] , #### CBC #### [address] Erythrocyte distribution width (RBC) [Ratio] 14.7 % Normal 11.9-15.3 [facility] Comment on above: Performed By: #### R AL W RFX #### [facility] , #### CBC #### [facility] [address] [place] [address] Hematocrit (Bld) [Volume fraction] 37.4 % Normal 34.0-46.4 [facility] Comment on above: Performed By: #### R AL W RFX #### [facility] , #### CBC #### [facility] [address] [place] [address] Hemoglobin (Bld) [Mass/Vol] 12.4 g/dL Normal 11.8-15.4 [facility] Comment on above: Performed By: #### R AL W RFX #### [facility] , #### CBC #### [address] Lymphocytes (Bld) [#/Vol] 2.4 10*3/uL Normal 1.00-4.8 [facility] Comment on above: Performed By: #### R AL W RFX #### [facility] , #### CBC #### [address] Lymphocytes/100 WBC (Bld) 19.6 % Normal . [facility] Comment on above: Performed By: #### R AL W RFX #### [facility] , #### CBC #### [address] MCH (RBC) [Entitic mass] 28.1 pg Normal 24.7-34.3 [facility] Comment on above: Performed By: #### R AL W RFX #### [facility] , #### CBC #### [address] MCV (RBC) [Entitic vol] 84.4 fL Normal 80-[address] [facility] Comment on above: Performed By: #### R AL W RFX #### [facility] , #### CBC #### [facility] [address] [place] [address] Mean Corpuscular HGB Conc 33.2 g/dL Normal 32.0-35.0 [facility] Comment on above: Performed By: #### R AL W RFX #### [facility] , #### CBC #### [facility] [facility] [address] [place] [address] Monocytes (Bld) [#/Vol] 0.8 10*3/uL Normal 0.0-0.8 [facility] Comment on above: Performed By: #### R AL W RFX #### [facility] , #### CBC #### [facility] [address] [place] [address] [place] Monocytes/100 WBC (Bld) 6.6 % Normal . [facility] Comment on above: Performed By: #### R AL W RFX #### [facility] , #### CBC #### [facility] [address] [place] [address] [place] Neutrophils (Bld) [#/Vol] 8.8 10*3/uL High 1.8-7.7 [facility] Comment on above: Performed By: #### R AL W RFX #### [facility] , #### CBC #### [address] Neutrophils/100 WBC (Bld) 71.0 % Normal . [facility] Comment on above: Performed By: #### R AL W RFX #### [facility] , #### CBC #### [facility] [address] [place] [address] [place] Nucleated RBC/100 WBC (Bld) [Ratio] 0.1 % Normal 0-0.5 [facility] Comment on above: Performed By: #### R AL W RFX #### [facility] , #### CBC #### [facility] [address] [place] [address] [place] Platelet mean volume (Bld) [Entitic vol] 7.4 fL Normal 6.3-10.7 [facility] Comment on above: Performed By: #### R AL W RFX #### [facility] , #### CBC #### [facility] [address] [place] [address] [place] Platelets (Bld) [#/Vol] 256 10*3/uL Normal 150-450 [facility] Comment on above: Performed By: #### R AL W RFX #### [facility] , #### CBC #### [facility] [address] RBC (Bld) [#/Vol] 4.43 10*6/uL Normal 3.60-5.00 [facility] Comment on above: Performed By: #### R AL W RFX #### [facility] , #### CBC #### [facility] [address] [place] [address] WBC (Bld) [#/Vol] 12.4 10*3/uL High 4.5-11.0 [facility] Comment on above: Performed By: #### R AL W RFX #### [facility] , #### CBC #### [address] Ketones Auto test strip (U) [Mass/Vol]Ordered By: PRESLEY TIMMONS on 09-11-2021 Ketones (U) [Mass/Vol] Negative Negative [facility] - Drug toxicology Ordered By: PRESLEY TIMMONS on 09-11-2021 Opiates Ql (U) Negative Negative [facility] Neisseria gonorrhoeae DNA [P resence] in Specimen by [facility] with probe detectionOrdered By: PRESLEY TIMMONS on 09-11-2021 N. gonorrhoeae DNA [facility]+probe Ql (Unsp spec) Negative Negative [facility] No Panel InformationOrdered By: PRESLEY TIMMONS on 09-11-2021 SARS Antigen (LFIA) [facility] OB Urine Drug Screen (NO THC )on 09-11-2021 Amphetamine Screen,Urine Negative Normal Negative [facility] Comment on above: Performed By: #### U A, OBUDS #### [address] Barbiturate Screen,Urine Negative Normal Negative [facility] Comment on above: Performed By: #### U A, OBUDS #### [address] Benzodiazepines Screen,Urine Negative Normal Negative [facility] Comment on above: Performed By: #### U A, OBUDS #### [facility] [address] Cocaine Screen,Urine Negative Normal Negative [facility] Comment on above: Performed By: #### U A, OBUDS #### [facility] [address] Opiate Screen,Urine Negative Normal Negative [facility] Comment on above: Performed By: #### U A, OBUDS #### [facility] [address] Phencyclidine Screen, Urine Negative Normal Negative [facility] Comment on above: Result Comment: Thes e are unconfirmed results and should not be used for legal purposes. Drug Cut-Off Concentration: AMPH 1000 ng/mL DANTE 200 ng/mL DONTA 200 ng/mL COCM 300 ng/mL OP 300 ng/mL PCP 25 ng/mL PERFORMED BY: [place] [address] PATHOLOGIST LINING MACHINE TENDER SANDY PEREZ M.D. Performed By: #### U A, OBUDS #### [address] Phencyclidine Screen Ql (U)O rdered By: PRESLEY TIMMONS on 09-11-2021 Phencyclidine Ql (U) Negative Negative [facility] Comment on above: These are unconfirme d results and should not be used for legal purposes. Drug Cut-Off Concentration: AMPH 1000 ng/mL DANTE 200 ng/mL DONTA 200 ng/mL COCM 300 ng/mL OP 300 ng/mL PCP 25 ng/mL Protein Auto test strip (U) [Mass/Vol]Ordered By: PRESLEY TIMMONS on 09-11-2021 Protein (U) [Mass/Vol] Negative Negative [facility] RPR w/rfx to Quant TP Abson 09-11-2021 RPR, Rfx Quant RPR Non-Reactive Normal Non Reactive [facility] Comment on above: Result Comment: Perf ormed at: CB - [facility] [address] [id number] Talent Management Manager: Surya Hazel PhD, Phone: [phone] PERFORMED BY: [place] [address] PATHOLOGIST LINING MACHINE TENDER SANDY PEREZ M.D. Performed By: #### R AL W RFX #### [facility] , #### CBC #### [place] [address] [place] Reagin Ab [Presence] in Seru m by RPROrdered By: PRESLEY TIMMONS on 09-11-2021 Reagin Ab RPR Ql (S) Non-Reactive Non Reactive [facility] Comment on above: Performed at: CB - [facility] [address] [id number] Talent Management Manager: Surya Hazel PhD, Phone: [phone] Chanel Ag Negativeon 09-12-19 Chanel Ag Negative Negative Normal Negative [facility] Comment on above: Result Comment: This is a duplicate Chanel SARS Antigen (IVET) result to be used for statistical tracking purpose only. PERFORMED BY: [place] [address] PATHOLOGIST LINING MACHINE TENDER SANDY PEREZ M.D. Performed By: #### C OVID-19 CHANEL, SOFIANEG #### [address] Trichomonas vaginalis DNA [P resence] in Specimen by [facility] with probe detectionOrdered By: PRESLEY TIMMONS on 09-11-2021 T. vaginalis DNA [facility]+probe Ql (Unsp spec) Negative Negative [facility] Comment on above: Performed at: =G - [facility] [address] [id number] Talent Management Manager: Glory Schaffer MD, Phone: [phone] Urinalysison 09-11-2021 Appearance (U) Clear Normal Clear [facility] Comment on above: Order Comment: Name Collection Type:: Voided Performed By: #### U A, OBUDS #### [place] [address] [place] Bilirubin,Urine Negative Normal Negative [facility] Comment on above: Order Comment: Name Collection Type:: Voided Performed By: #### U A, OBUDS #### [facility] [address] [place] [address] [place] Color (U) Yellow Normal Yellow [facility] Comment on above: Order Comment: Name Collection Type:: Voided Performed By: #### U A, OBUDS #### [facility] [address] [place] [address] [place] Glucose Ql (U) Normal Normal Normal [facility] Comment on above: Order Comment: Name Collection Type:: Voided Performed By: #### U A, OBUDS #### [address] Ketones Ql (U) Negative Normal Negative [facility] Comment on above: Order Comment: Name Collection Type:: Voided Performed By: #### U A, OBUDS #### [place] [address] [place] Leukocyte esterase Test strip Ql (U) Negative Normal Negative [facility] Comment on above: Order Comment: Name Collection Type:: Voided Performed By: #### U A, OBUDS #### [place] [address] [place] Nitrite,Urine Negative Normal Negative [facility] Comment on above: Order Comment: Name Collection Type:: Voided Performed By: #### U A, OBUDS #### [facility] [address] [place] [address] [place] Occult Blood,Urine Negative Normal Negative [facility] Comment on above: Order Comment: Name Collection Type:: Voided Result Comment: PERF ORMED BY: [place] [address] PATHOLOGIST LINING MACHINE TENDER SANDY PEREZ M.D. Performed By: #### U A, OBUDS #### [place] [address] [place] pH (U) 6.0 [pH] Normal 5.0-9.0 [facility] Comment on above: Order Comment: Name Collection Type:: Voided Performed By: #### U A, OBUDS #### [facility] [address] Protein,Urine Negative Normal Negative [facility] Comment on above: Order Comment: Name Collection Type:: Voided Performed By: #### U A, OBUDS #### [facility] [address] Specificy [place],Urine 1.015 Normal 1.001-1.030 [facility] Comment on above: Order Comment: Name Collection Type:: Voided Performed By: #### U A, OBUDS #### [facility] [address] Urobilinogen,Urine Normal Normal Normal [facility] Comment on above: Order Comment: Name Collection Type:: Voided Performed By: #### U A, OBUDS #### [facility] [address] Urine appearanceOrdered By: PRESLEY TIMMONS on 09-11-2021 Appearance (U) Clear Clear [facility] Urine cocaine detectionOrder ed By: PRESLEY TIMMONS on 09-11-2021 Cocaine Ql (U) Negative Negative [facility] Urine colorOrdered By: PRESLEY TIMMONS on 09-11-2021 Color (U) Yellow Yellow [facility] Urine glucose measurement by automated test strip (mass/volume)Ordered By: PRESLEY TIMMONS on 09-11-2021 Glucose Auto test strip (U) [Mass/Vol] Normal mg/dL Normal [facility] Urine hemoglobin detection b y automated test stripOrdered By: PRESLEY TIMMONS on 09-11-2021 Hemoglobin Auto test strip Ql (U) Negative Negative [facility] Urine leukocyte esterase det ection by automated test stripOrdered By: PRESLEY TIMMONS on 09-11-2021 Leukocyte esterase Auto test strip Ql (U) Negative Negative [facility] Urine nitrite detection by a utomated test stripOrdered By: PRESLEY TIMMONS on 09-11-2021 Nitrite Auto test strip Ql (U) Negative Negative [facility] Urobilinogen Auto test strip (U) [Mass/Vol]Ordered By: PRESLEY TIMMONS on 09-11-2021 Urobilinogen (U) [Mass/Vol] Normal mg/dL Normal [facility] pH Auto test strip (U)Ordere d By: PRESLEY TIMMONS on 09-11-2021 pH (U) 1.015 [pH] 1.001-1.030 [facility] pH (U) 6.0 [pH] 5.0-9.0 [facility] CHEMISTRYOrdered By: SYSTEM SYSTEM on 07-02-2021 Glucose 3 Hr post 75 g glucose PO [Mass/Vol] 59 mg/dL Normal 55 - 140 mg/dL [facility] Remisol Glucose 2 Hr post 75 g glucose PO [Mass/Vol] 100 mg/dL Normal 55 - 155 mg/dL [facility] Remisol Glucose 1 Hr post 75 g glucose PO [Mass/Vol] 169 mg/dL Normal 55 - 180 mg/dL [facility] Remisol Glucose post fast [Mass/Vol] 94 mg/dL Normal 55 - 99 mg/dL [facility] Remisol CHEMISTRYOrdered By: Lab ROP User on 07-02-2021 Glucose [Mass/Vol] 89 mg/dL Normal 55 - 99 mg/dL [facility] POC Subsection POC Device SN [id number] Invalid Interpretation Code [facility] POC Subsection POC User ID [id number] Invalid Interpretation Code [facility] POC Subsection POC Username MYNOR GARCIA Invalid Interpretation Code [facility] POC Subsection URINALYSISOrdered By: Binh Gilliam on [...] AM) Normal Negative [facility] UA Auto SS Painter.plasma/Painter. RBC (Bld) [Mass ratio] 0-3 /HPF Normal [...] [facility] UA Auto SS Urobilinogen Qn (U) [id number] {Juma'U}/dL Normal 0.0 - 1.0 EU/dL [facility] [...] 15 [iU]/d Normal 5 - 43 Int._Unit/L [facility] Bilirubin [Mass/Vol] 0.9 mg/dL Normal 0.0 - 1 .1 mg/dL [facility] Calcium [Mass/Vol] 8.6 mg/dL Low 8.9 - 11. 1 mg/dL [facility] Chloride [Moles/Vol] 103 mmol/L Normal 101 - 1 11 mmol/L [facility] CO2 [Moles/Vol] 22 mmol/L Normal 21 - 31 mmol/L [facility] Creatinine [Mass/Vol] 0.6 mg/dL Normal 0.5 - 1.3 mg/dL [facility] GFR/1.73 sq M.predicted among blacks MDRD (S/P/Bld) [Vol rate/Area] mL/min/1.73 m2 Normal >=59mL/min/1 .73 m2 [facility] Chem S GFR/1.73 sq M.predicted among non-blacks MDRD (S/P/Bld) [Vol rate/Area] mL/min/1.73 m2 Normal >=59mL/min/1 .73 m2 [facility] Chem S Globulin (S) [Mass/Vol] 3.8 g/dL Normal 1.4 - 4.0 gm/dL [facility] Glucose [Mass/Vol] 105 mg/dL Normal 55 - 199 mg/dL [facility] Lipase [Catalytic activity/Vol] 28 U/L Normal 13 - 58 unit/L [facility] Potassium [Moles/Vol] 3.3 mmol/L Low 3.5 - 5.3 mmol/L [facility] Protein [Mass/Vol] 6.6 g/dL Normal 6.0 - 7.8 gm/dL [facility] Sodium [Moles/Vol] 134 mmol/L Low 135 - 145 mmol/L [facility] Urea nitrogen [Mass/Vol] 7 mg/dL Normal 5 - 21 mg/dL [facility] Urea nitrogen/Creatinine [Mass ratio] 12 mg/mg Normal 10 - 20 [facility] HEMATOLOGYOrdered By: SYSTEM SYSTEM on 06-04-2021 Basophils/100 WBC (Bld) 0.2 % Normal 0.0 - 2.0 % [facility]eAutoSS Basophils/Leukocytes Auto (Bld) [Pure # fraction] [...] E9/L Normal 150. 0 - 500.0 E9/L [facility] HemeAutoSS RBC (Bld) [#/Vol] 4.3 E12/L Normal 4.3 - 5.9 E12/L [facility] HemeAutoSS WBC corrected for nucl RBC Auto (Bld) [#/Vol] 10.4 E9/L Normal 4.0 - 11.0 E9/L [facility] HemeAutoSS CHEMISTRYOrdered By: SYSTEM SYSTEM on 05-30-2021 Glucose 1 Hr post 75 g glucose PO [Mass/Vol] 199 mg/dL High 55 - 180 mg/dL [facility] Remisol HEMATOLOGYOrdered By: Minna King on 05-30-2021 Hematocrit (Bld) [Volume fraction] 35.0 % Normal 34.0 - 46.0 % [facility] HemeAutoSS Hemoglobin (Bld) [Mass/Vol] 12.3 g/dL Normal 12.0 - 16.0 gm/dL [facility] HemeAutoSS CBC AUTO DIFFon 02-11-2021 BASO # 0.1 103/ul Normal 0.0-0.1 [facility] Comment on above: Performed By: #### C BC #### [facility] [address] [place] [address] Dr. Shola Randolph Basophils/100 WBC (Bld) 0.4 % Normal 0.2-2.0 [facility] Comment on above: Performed By: #### C BC #### [facility] [address] [place] [address] Dr. Shola Randolph EO # 0.5 103/ul Normal 0.0-0.7 [facility] Comment on above: Performed By: #### C BC #### [facility] [address] [place] [address] Dr. Shola Randolph Eosinophils/100 WBC (Bld) 3.9 % Normal 0.9-7.0 [facility] Comment on above: Performed By: #### C BC #### [facility] [address] [place] [address] Dr. Shola Randolph Erythrocyte distribution width (RBC) [Ratio] 13.3 % Normal 11.0-15.0 [facility] Comment on above: Performed By: #### C BC #### [facility] [address] [place] [address] Dr. Shola Randolph Hematocrit (Bld) [Volume fraction] 42.0 % Normal 36.0-48.0 [facility] Comment on above: Performed By: #### C BC #### [facility] [address] [place] [address] Dr. Shola Randolph Hemoglobin (Bld) [Mass/Vol] 13.9 g/dL Normal 12.0-16.0 [facility] Comment on above: Performed By: #### C BC #### [facility] [address] [place] [address] Dr. Shola Randolph IG # 0.04 10e3/ul Critically high 0.00-0.03 [facility] Comment on above: Performed By: #### C BC #### [facility] [address] [place] [address] Dr. Shola Randolph IG % 0.3 % Normal 0.0-0.5 [facility] Comment on above: Performed By: #### C BC #### [facility] [address] [place] [address] Dr. Shola Randolph LYMPH # 2.5 103/ul Normal 1.2-3.8 [facility] Comment on above: Performed By: #### C BC #### [facility] [address] [place] [address] Dr. hSola Randolph Lymphocytes/100 WBC (Bld) 20.2 % Critically low 20.5-60.0 [facility] Comment on above: Performed By: #### C BC #### [facility] [address] [place] [address] Dr. Shola Randolph MANUAL DIFF REQ NO Normal [facility] Comment on above: Performed By: #### C BC #### [facility] [address] [place] [address] Dr. Shola Randolph MCH (RBC) [Entitic mass] 28.7 pg Normal 26.7-34.0 [facility] Comment on above: Performed By: #### C BC #### [facility] [address] [address] [address] Shola Randolph MCHC (RBC) [Mass/Vol] 33.1 g/dL Normal 29.9-35.2 [facility] Comment on above: Performed By: #### C BC #### [facility] [address] [address] [address] Shola Randolph MCV (RBC) [Entitic vol] 86.6 fL Normal 81.0-99.0 [facility] Comment on above: Performed By: #### C BC #### [facility] [address] [address] [address] Shola Randolph MONO # 0.8 103/ul Normal 0.3-0.8 [facility] Comment on above: Performed By: #### C BC #### [facility] [address] [place] [address] Dr. Shola Randolph Monocytes/100 WBC (Bld) 6.5 % Normal 1.7-12.0 [facility] Comment on above: Performed By: #### C BC #### [facility] [address] [address] [address] Shola Randolph NEUT # 8.5 103/ul Critically high 1.4-6.5 [facility] Comment on above: Performed By: #### C BC #### [facility] [address] [place], [place] [id number] Dr. Shola Randolph Neutrophils/100 WBC (Bld) 68.7 % Normal 43.0-75.0 [facility] Comment on above: Performed By: #### C BC #### [facility] [address] [place], [place] [id number] Dr. Shola Randolph Platelet mean volume (Bld) [Entitic vol] 8.4 fL Critically low 9.5-13.5 [facility] Comment on above: Performed By: #### C BC #### [facility] [address] [place] [address] Dr. Shola Randolph PLT 246 103/ul Normal 150-[address] [facility] Comment on above: Performed By: #### C BC #### [facility] [address] [place] [address] Dr. Shola Randolph RBC 4.85 106/ul Normal 4.20-5.40 [facility] Comment on above: Performed By: #### C BC #### [facility] [address] [place] [address] Dr. Shola Randolph WBC 12.4 103/ul Critically high 4.0-11.0 [facility] Comment on above: Performed By: #### C BC #### [facility] [address] [place] [address] Dr. Shola Randolph PROF 14(COMP METB)on 021 Albumin [Mass/Vol] 3.3 g/dL Critically low 3.5-5.0 [facility] Comment on above: Performed By: #### C MP #### [facility] [address] [place] [address] Dr. Shola Randolph Albumin/Globulin [Mass ratio] 0.8 {ratio} Normal [facility] Comment on above: Performed By: #### C MP #### [facility] [address] [place] [address] Dr. Shola Randolph ALP [Catalytic activity/Vol] 76 U/L Normal 38-126 [facility] Comment on above: Performed By: #### C MP #### [facility] [address] [place] [address] Dr. Shola Randolph ALT [Catalytic activity/Vol] 25 U/L Normal 9-52 [facility] Comment on above: Performed By: #### C MP #### [facility] [address] [place] [address] Dr. Shola Randolph Anion gap [Moles/Vol] 12.4 mmol/L Normal [facility] Comment on above: Performed By: #### C MP #### [facility] [address] [place] [address] Dr. Shola Randolph AST [Catalytic activity/Vol] 15 U/L Normal 14-36 [facility] Comment on above: Performed By: #### C MP #### [facility] [address] [place] [address] Dr. Shola Randolph Bilirubin [Mass/Vol] 0.3 mg/dL Normal 0.2-1.3 [facility] Comment on above: Performed By: #### C MP #### [facility] [address] [place] [address] Dr. Shola Randolph Calcium [Mass/Vol] 8.8 mg/dL Normal 8.4-10.2 [facility] Comment on above: Performed By: #### C MP #### [facility] [address] [address] [address] Shola Randolph Chloride [Moles/Vol] 102 mmol/L Normal 98-107 [facility] Comment on above: Performed By: #### C MP #### [facility] [address] [place] [address] Dr. Shola Randolph CO2 [Moles/Vol] 25.5 mmol/L Normal 22.0-30.0 [facility] Comment on above: Performed By: #### C MP #### [facility] [address] [place] [address] Dr. Shola Randolph Creatinine [Mass/Vol] 0.81 mg/dL Normal 0.52-1.04 [facility] Comment on above: Performed By: #### C MP #### [facility] [address] [place] [address] Dr. Shola Randolph EGFR-AF NEPALESE >60 Normal >=60 [facility] Comment on above: Performed By: #### C MP #### [facility] [address] [place] [address] Dr. Shola Randolph EGFR-NON AF NEPALESE >60 Normal >=60 [facility] Comment on above: Performed By: #### C MP #### [facility] [address] [place] [address] Dr. Shola Randolph Globulin (S) [Mass/Vol] 4.4 g/dL Normal [facility] Comment on above: Performed By: #### C MP #### [facility] [address] [place] [address] Dr. Shola Randolph Glucose [Mass/Vol] 88 mg/dL Normal 74-106 [facility] Comment on above: Performed By: #### C MP #### [facility] [address] [address] [address] Shola Randolph Potassium [Moles/Vol] 3.9 mmol/L Normal 3.4-5.0 [facility] Comment on above: Performed By: #### C MP #### [facility] [address] [address] [address] Shola Randolph Protein [Mass/Vol] 7.7 g/dL Normal 6.1-8.2 [facility] Comment on above: Performed By: #### C MP #### [facility] [address] [address] [address] Shola Randolph Sodium [Moles/Vol] 136 mmol/L Critically low 137-145 [facility] Comment on above: Performed By: #### C MP #### [facility] [address] [address] [address] Shola Randolph Urea nitrogen [Mass/Vol] 9.0 mg/dL Normal 7.0-17.0 [facility] Comment on above: Performed By: #### C MP #### [facility] [address] [address] [address] Shola Randolph Urea nitrogen/Creatinine [Mass ratio] 11.1 mg/mg Normal [facility] Comment on above: Performed By: #### C MP #### [facility] [address] [address] [address] Shola Randolph Vital Signs Date Time Vital Sign Value Performing Clinician Facility 10-24-2024 13:49-0400 Body mass index (BMI) [Ratio] 49.95 kg/m2 Shaina SAAVEDRA Work Phone: [facility] 10-24-2024 13:49-0400 Body weight 132 kg Shaina SAAVEDRA Work Phone: [facility] 10-24-2024 13:49-0400 Diastolic blood pressure 92 mm[Hg] Shaina SAAVEDRA Work Phone: [facility] 10-24-2024 13:49-0400 Systolic blood pressure 142 mm[Hg] Shaina Anny PA Work Phone: [facility] 10-17-2024 13:30-0400 Body mass index (BMI) [Ratio] 49.33 kg/m2 Zack Angel DO Work Phone: [facility] 10-17-2024 13:30-0400 Body weight 130.36 kg Zack Angel DO Work Phone: [facility] 10-17-2024 13:30-0400 Diastolic blood pressure 82 mm[Hg] Zack Angel DO Work Phone: [facility] 10-17-2024 13:30-0400 Systolic blood pressure 130 mm[Hg] Zack Angel DO Work Phone: [facility] 10-08-2024 15:05-0400 Body mass index (BMI) [Ratio] 49.33 kg/m2 Zack Angel DO Work Phone: [facility] 10-08-2024 15:05-0400 Body weight 130.36 kg Zack Angel DO Work Phone: [facility] 10-08-2024 15:05-0400 Diastolic blood pressure 100 mm[Hg] Zack Angel DO Work Phone: [facility] 10-08-2024 15:05-0400 Systolic blood pressure 142 mm[Hg] Zack Angel DO Work Phone: [facility] 10-03-2024 14:26-0400 Body mass index (BMI) [Ratio] 50.98 kg/m2 Zack Angel DO Work Phone: [facility] 10-03-2024 14:26-0400 Body weight 134.72 kg Zack Angel DO Work Phone: [facility] 10-03-2024 14:26-0400 Diastolic blood pressure 100 mm[Hg] Zack Angel DO Work Phone: [facility] 10-03-2024 14:26-0400 Systolic blood pressure 154 mm[Hg] Zack Angel DO Work Phone: [facility] 09-17-2024 13:18-0400 Body mass index (BMI) [Ratio] 50.64 kg/m2 Shaina Mccormick PA Work Phone: [facility] 09-17-2024 13:18-0400 Body weight 133.81 kg Shaina Mccormick PA Work Phone: [facility] 09-17-2024 13:18-0400 Diastolic blood pressure 70 mm[Hg] Shaina Mccormick PA Work Phone: [facility] 09-17-2024 13:18-0400 Systolic blood pressure 118 mm[Hg] Shaina Mccormick PA Work Phone: [facility] 08-21-2024 09:16-0400 Body temperature 97.5 [degF] Yixue Virk DDS Work Phone: [facility] [place] 08-21-2024 09:16-0400 Diastolic blood pressure 90 mm[Hg] Yixue Virk DDS Work Phone: [facility] [place] 08-21-2024 09:16-0400 Heart rate 86 /min Yixue Virk DDS Work Phone: [facility] [place] 08-21-2024 09:16-0400 Systolic blood pressure 134 mm[Hg] Yixue Virk DDS Work Phone: [facility] [place] 08-20-2024 14:57-0400 Body mass index (BMI) [Ratio] 48.58 kg/m2 Zack Angel DO Work Phone: [facility] 08-20-2024 14:57-0400 Body weight 128.37 kg Zack Angel DO Work Phone: [facility] 08-20-2024 14:57-0400 Diastolic blood pressure 74 mm[Hg] Zack Angel DO Work Phone: [facility] 08-20-2024 14:57-0400 Systolic blood pressure 122 mm[Hg] Zack Angel DO Work Phone: [facility] 08-15-2024 12:56-0400 Body temperature 98.1 [degF] Bishnu Virk DDS Work Phone: [facility] [place] 08-15-2024 12:56-0400 Diastolic blood pressure 96 mm[Hg] Bishnu Virk DDS Work Phone: [facility] [place] 08-15-2024 12:56-0400 Heart rate 79 /min Yieverette Virk DDS Work Phone: [facility] [place] 08-15-2024 12:56-0400 Systolic blood pressure 138 mm[Hg] Bishnu Virk DDS Work Phone: [facility] [place] 07-23-2024 15:23-0400 Body mass index (BMI) [Ratio] 47.38 kg/m2 Shaina Mccormick PA Work Phone: [facility] 07-23-2024 15:23-0400 Body weight 125.19 kg Shaina Mccormick PA Work Phone: [facility] 07-23-2024 15:23-0400 Diastolic blood pressure 78 mm[Hg] Shaina Anny PA Work Phone: [facility] 07-23-2024 15:23-0400 Systolic blood pressure 124 mm[Hg] Shaina Mccormick PA Work Phone: [facility] 04-18-2024 14:08-0500 Diastolic blood pressure 96 mm[Hg] [facility] 04-18-2024 14:08-0500 Heart rate 85 /min [facility] 04-18-2024 14:08-0500 Respiratory rate 20 /min [facility] 04-18-2024 14:08-0500 SaO2% (BldA) [Mass fraction] 99 % [facility] 04-18-2024 14:08-0500 Systolic blood pressure 136 mm[Hg] [facility] 04-18-2024 11:41-0500 Body temperature 98.06 [degF] [facility] 04-18-2024 11:41-0500 Diastolic blood pressure 94 mm[Hg] [facility] 04-18-2024 11:41-0500 Heart rate 106 /min [facility] 04-18-2024 11:41-0500 Respiratory rate 22 /min [facility] 04-18-2024 11:41-0500 SaO2% (BldA) [Mass fraction] 98 % [facility] 04-18-2024 11:41-0500 Systolic blood pressure 144 mm[Hg] [facility] 10-10-2023 10:13-0400 Blood Pressure Location REY ALAS [facility] 10-10-2023 10:13-0400 Body temperature 98.06 [degF] REY ALAS [facility] 10-10-2023 10:13-0400 Diastolic blood pressure 74 mm[Hg] REY ALAS [facility] 10-10-2023 10:13-0400 Heart rate 80 /min REY ALAS [facility] 10-10-2023 10:13-0400 Respiratory rate 15 /min REY ALAS [facility] 10-10-2023 10:13-0400 SaO2% (BldA) [Mass fraction] 98 % REY ALAS [facility] 10-10-2023 10:13-0400 Systolic blood pressure 122 mm[Hg] REY ALAS [facility] 07-08-2023 13:59-0400 Heart rate 107 /min Jagidsh Shaun [facility] 07-08-2023 13:59-0400 Respiratory rate 14 /min Jagdish Shaun [facility] 07-08-2023 13:59-0400 SaO2% (BldA) [Mass fraction] 98 % Jagdish Shaun [facility] 07-08-2023 12:49-0400 Body temperature 97.7 [degF] Jagdish Shaun [facility] 07-08-2023 12:49-0400 Diastolic blood pressure 94 mm[Hg] Jagdish Shaun [facility] 07-08-2023 12:49-0400 Heart rate 120 /min Jagdish Shaun [facility] 07-08-2023 12:49-0400 Respiratory rate 15 /min Jagdish Shaun [facility] 07-08-2023 12:49-0400 SaO2% (BldA) [Mass fraction] 97 % Jagdish Dunn [facility] 07-08-2023 12:49-0400 Systolic blood pressure 134 mm[Hg] Jagdish Shaun [facility] 07-06-2023 08:45-0400 Blood Pressure Location REY ALAS [facility] 07-06-2023 08:45-0400 Diastolic blood pressure 86 mm[Hg] REY ALAS [facility] 07-06-2023 08:45-0400 Heart rate 78 /min REY ALAS [facility] 07-06-2023 08:45-0400 SaO2% (BldA) [Mass fraction] 99 % REY ALAS [facility] 07-06-2023 08:45-0400 Systolic blood pressure 126 mm[Hg] REY ALAS [facility] 01-11-2023 19:48-0500 Diastolic blood pressure 96 mm[Hg] Jagdish Shaun [facility] 01-11-2023 19:48-0500 Heart rate 84 /min Jagdish Shaun [facility] 01-11-2023 19:48-0500 Mean blood pressure 108 mm[Hg] Jagdish Shaun [facility] 01-11-2023 19:48-0500 Respiratory rate 13 /min Jagdish Shaun [facility] 01-11-2023 19:48-0500 SaO2% (BldA) [Mass fraction] 97 % Jagdish Shaun [facility] 01-11-2023 19:48-0500 Systolic blood pressure 131 mm[Hg] Jagdish Shaun [facility] 01-11-2023 19:30-0500 Heart rate 85 /min Jagdish Shaun [facility] 01-11-2023 19:30-0500 Respiratory rate 17 /min Jagdish Shaun [facility] 01-11-2023 19:30-0500 SaO2% (BldA) [Mass fraction] 97 % Jagdish Shaun [facility] 01-11-2023 19:00-0500 Diastolic blood pressure 95 mm[Hg] Jagdish Shaun [facility] 01-11-2023 19:00-0500 Heart rate 87 /min Jagdish Shaun [facility] 01-11-2023 19:00-0500 Mean blood pressure 107 mm[Hg] Jagdish Dunn [facility] 01-11-2023 19:00-0500 Respiratory rate 11 /min Jagdish Dunn [facility] 01-11-2023 18:00-0500 Diastolic blood pressure 94 mm[Hg] Jagdish Dunn [facility] 01-11-2023 18:00-0500 Systolic blood pressure 135 mm[Hg] Jagdish Dunn [facility] 01-11-2023 16:10-0500 Body temperature 98.06 [degF] Jagdish Dunn [facility] 01-11-2023 16:10-0500 Heart rate 110 /min Jagdish Dunn [facility] 01-11-2023 16:10-0500 Respiratory rate 18 /min Jagdish Dunn [facility] 01-08-2023 14:21-0500 Body temperature 98.6 [degF] [facility] 01-08-2023 14:21-0500 Diastolic blood pressure 75 mm[Hg] [facility] 01-08-2023 14:21-0500 Heart rate 76 /min [facility] 01-08-2023 14:21-0500 Respiratory rate 18 /min [facility] 01-08-2023 14:21-0500 SaO2% (BldA) [Mass fraction] 97 % [facility] 01-08-2023 14:21-0500 Systolic blood pressure 116 mm[Hg] [facility] 01-08-2023 12:45-0500 Body temperature 98.24 [degF] [facility] 01-08-2023 12:45-0500 Diastolic blood pressure 79 mm[Hg] [facility] 01-08-2023 12:45-0500 Heart rate 110 /min [facility] 01-08-2023 12:45-0500 Respiratory rate 24 /min [facility] 01-08-2023 12:45-0500 SaO2% (BldA) [Mass fraction] 100 % [facility] 01-08-2023 12:45-0500 Systolic blood pressure 117 mm[Hg] [facility] 01-06-2023 16:45-0500 Diastolic blood pressure 87 mm[Hg] Jesus Sheetse [facility] 01-06-2023 16:45-0500 Heart rate 98 /min Jesus Sheetse [facility] 01-06-2023 16:45-0500 Mean blood pressure 97 mm[Hg] Jesus Armen [facility] 01-06-2023 16:45-0500 Respiratory rate 20 /min Jesus Armen [facility] 01-06-2023 16:45-0500 SaO2% (BldA) [Mass fraction] 97 % Jesus Armen [facility] 01-06-2023 16:45-0500 Systolic blood pressure 118 mm[Hg] Jesus Armen [facility] 01-06-2023 16:15-0500 Diastolic blood pressure 85 mm[Hg] Jesus Armen [facility] 01-06-2023 16:15-0500 Heart rate 98 /min Jesus Armen [facility] 01-06-2023 16:15-0500 Mean blood pressure 99 mm[Hg] Jesus Armen [facility] 01-06-2023 16:15-0500 Respiratory rate 18 /min Jesus Sheetse [facility] 01-06-2023 16:15-0500 SaO2% (BldA) [Mass fraction] 96 % Jesus Sheetse [facility] 01-06-2023 16:15-0500 Systolic blood pressure 127 mm[Hg] Jesus Sheetse [facility] 01-06-2023 15:45-0500 Diastolic blood pressure 87 mm[Hg] Jesus Sheetse [facility] 01-06-2023 15:45-0500 Heart rate 98 /min Jesus Sheetse [facility] 01-06-2023 15:45-0500 Mean blood pressure 102 mm[Hg] Jesus Sheetse [facility] 01-06-2023 15:45-0500 Respiratory rate 18 /min Jesus Sheetse [facility] 01-06-2023 15:45-0500 SaO2% (BldA) [Mass fraction] 97 % Jesus Sheetse [facility] 01-06-2023 15:45-0500 Systolic blood pressure 131 mm[Hg] Jesus Sheetse [facility] 01-06-2023 15:15-0500 Heart rate 114 /min Jesus Sheetse [facility] 01-06-2023 14:48-0500 Body temperature 102.02 [degF] Jesus Sheetse [facility] 01-06-2023 14:48-0500 Heart rate 115 /min Jesus Sheetse [facility] 10-17-2022 17:02-0400 Diastolic blood pressure 69 mm[Hg] Jagdish Shaun [facility] 10-17-2022 17:02-0400 Heart rate 66 /min Jagdish Shaun [facility] 10-17-2022 17:02-0400 Mean blood pressure 79 mm[Hg] Jagdish Shaun [facility] 10-17-2022 17:02-0400 Respiratory rate 18 /min Jagdish Shaun [facility] 10-17-2022 17:02-0400 SaO2% (BldA) [Mass fraction] 98 % Jagdish Shaun [facility] 10-17-2022 17:02-0400 Systolic blood pressure 100 mm[Hg] Jagdish Shaun [facility] 10-17-2022 16:43-0400 Hourly Rounding Jagdish Shaun [facility] 10-17-2022 16:43-0400 Promise to Return Jagdish Shaun [facility] 10-17-2022 16:42-0400 Diastolic blood pressure 65 mm[Hg] Jagdish Shaun [facility] 10-17-2022 16:42-0400 Heart rate 62 /min Jagdish Shaun [facility] 10-17-2022 16:42-0400 Mean blood pressure 80 mm[Hg] Jagdish Shaun [facility] 10-17-2022 16:42-0400 Respiratory rate 18 /min Jagdish Shaun [facility] 10-17-2022 16:42-0400 SaO2% (BldA) [Mass fraction] 99 % Jagdish Shaun [facility] 10-17-2022 16:42-0400 Systolic blood pressure 111 mm[Hg] Jagdish Shaun [facility] 10-17-2022 15:43-0400 Diastolic blood pressure 69 mm[Hg] Jagdish Shaun [facility] 10-17-2022 15:43-0400 Heart rate 68 /min Jagdish Shaun [facility] 10-17-2022 15:43-0400 Hourly Rounding Jagdish Shaun [facility] 10-17-2022 15:43-0400 Mean blood pressure 83 mm[Hg] Jagdish Shaun [facility] 10-17-2022 15:43-0400 Promise to Return Jagdish Shaun [facility] 10-17-2022 15:43-0400 Respiratory rate 18 /min Jagdish Shaun [facility] 10-17-2022 15:43-0400 SaO2% (BldA) [Mass fraction] 100 % Jagdish Shaun [facility] 10-17-2022 15:43-0400 Systolic blood pressure 111 mm[Hg] Jagdish Shaun [facility] 10-17-2022 14:49-0400 Hourly Rounding Jagdish Shaun [facility] 10-17-2022 14:49-0400 Promise to Return Jagdish Shaun [facility] 10-17-2022 13:04-0400 Body temperature 98.06 [degF] Jagdish Shaun [facility] 10-17-2022 13:04-0400 Heart rate 93 /min Jagdish Shaun [facility] 02-17-2022 21:00-0500 Diastolic blood pressure 91 mm[Hg] Jagdish Shaun [facility] 02-17-2022 21:00-0500 Heart rate 86 /min Jagdish Shaun [facility] 02-17-2022 21:00-0500 Mean blood pressure 106 mm[Hg] Jagdish Shaun [facility] 02-17-2022 21:00-0500 Respiratory rate 20 /min Jagdish Shaun [facility] 02-17-2022 21:00-0500 SaO2% (BldA) [Mass fraction] 98 % Jagdish Shaun [facility] 02-17-2022 21:00-0500 Systolic blood pressure 136 mm[Hg] Jagdish Shaun [facility] 02-17-2022 20:00-0500 Diastolic blood pressure 81 mm[Hg] Jagdish Shaun [facility] 02-17-2022 20:00-0500 Heart rate 91 /min Jagdish Shaun [facility] 02-17-2022 20:00-0500 Mean blood pressure 96 mm[Hg] Jagdish Shaun [facility] 02-17-2022 20:00-0500 Respiratory rate 16 /min Jagdish Shaun [facility] 02-17-2022 20:00-0500 Systolic blood pressure 125 mm[Hg] Jagdish Shaun [facility] 02-17-2022 19:44-0500 Diastolic blood pressure 98 mm[Hg] Jagdish Shaun [facility] 02-17-2022 19:44-0500 Heart rate 99 /min Jagdish Shaun [facility] 02-17-2022 19:44-0500 Mean blood pressure 112 mm[Hg] Jagdish Dunn [facility] 02-17-2022 19:44-0500 Respiratory rate 19 /min Jagdish Dunn [facility] 02-17-2022 19:44-0500 SaO2% (BldA) [Mass fraction] 97 % Jagdish Dunn [facility] 02-17-2022 19:44-0500 Systolic blood pressure 140 mm[Hg] Jagdish Dunn [facility] 02-17-2022 16:14-0500 Body temperature 98.96 [degF] Jagdish Dunn [facility] 02-17-2022 16:14-0500 Heart rate 112 /min Jagdish Dunn [facility] 11-10-2021 12:13-0400 Body temperature 97.88 [degF] Jesus Ayers [facility] 11-10-2021 12:13-0400 Diastolic blood pressure 88 mm[Hg] Jesus Ayers [facility] 11-10-2021 12:13-0400 Heart rate 93 /min Jesus Sheetse [facility] 11-10-2021 12:13-0400 Respiratory rate 16 /min Jesus Ayers [facility] 11-10-2021 12:13-0400 SaO2% (BldA) [Mass fraction] 99 % Jesus Ayers [facility] 11-10-2021 12:13-0400 Systolic blood pressure 128 mm[Hg] Jesus Sheetse [facility] 09-14-2021 16:00-0400 Diastolic blood pressure 98 mm[Hg] PHYSICIAN NO [facility] 09-14-2021 16:00-0400 Heart rate 106 /min PHYSICIAN NO [facility] 09-14-2021 16:00-0400 Respiratory rate 16 /min PHYSICIAN NO [facility] 09-14-2021 16:00-0400 SaO2% (BldA) [Mass fraction] 97 % PHYSICIAN NO [facility] 09-14-2021 16:00-0400 Systolic blood pressure 138 mm[Hg] PHYSICIAN NO [facility] 09-14-2021 08:00-0400 Body temperature 97.3 [degF] PHYSICIAN NO [facility] 09-11-2021 21:30-0400 Body height 165.1 cm PHYSICIAN NO [facility] 09-11-2021 21:30-0400 Body weight 111.13 kg PHYSICIAN NO [facility] 07-17-2021 11:18-0400 Diastolic blood pressure 80 mm[Hg] Jagdish Dunn [facility] 07-17-2021 11:18-0400 Heart rate 82 /min Jagdish Dunn [facility] 07-17-2021 11:18-0400 Respiratory rate 82 /min Jagdish Dunn [facility] 07-17-2021 11:18-0400 SaO2% (BldA) [Mass fraction] 99 % Jagdish Dunn [facility] 07-17-2021 11:18-0400 Systolic blood pressure 131 mm[Hg] Jagdish Dunn [facility] 07-17-2021 09:28-0400 Body temperature 97.88 [degF] Jagdish Dunn [facility] 07-17-2021 09:28-0400 Diastolic blood pressure 98 mm[Hg] Jagdish Dunn [facility] 07-17-2021 09:28-0400 Heart rate 85 /min Jagdish Dunn [facility] 07-17-2021 09:28-0400 Respiratory rate 18 /min Jagdish Dunn [facility] 07-17-2021 09:28-0400 SaO2% (BldA) [Mass fraction] 98 % Jagdish Dunn [facility] 07-17-2021 09:28-0400 Systolic blood pressure 145 mm[Hg] Jagdish Dunn [facility] 06-13-2021 12:30-0400 Hourly Rounding Una Foote [facility] Comment on above: Result Comment: Pt eats her entire lunch without nausea; states the protonix took her nausea away. 06-13-2021 10:45-0400 Blood Pressure Location Una Foote [facility] 06-13-2021 10:45-0400 Diastolic blood pressure 77 mm[Hg] Una Qamar [facility] 06-13-2021 10:45-0400 Heart rate 81 /min Una Qamar [facility] 06-13-2021 10:45-0400 Mean blood pressure 92 mm[Hg] Una Foote [facility] 06-13-2021 10:45-0400 Respiratory rate 20 /min Una Qamar [facility] 06-13-2021 10:45-0400 Systolic blood pressure 122 mm[Hg] Una Qamar [facility] 06-13-2021 10:06-0400 Body temperature 98.06 [degF] Una Foote [facility] 06-13-2021 10:06-0400 Diastolic blood pressure 79 mm[Hg] Una Foote [facility] 06-13-2021 10:06-0400 Heart rate 83 /min Una Foote [facility] 06-13-2021 10:06-0400 Mean blood pressure 96 mm[Hg] Una Foote [facility] 06-13-2021 10:06-0400 Respiratory rate 20 /min Una Foote [facility] 06-13-2021 10:06-0400 Systolic blood pressure 131 mm[Hg] Una Foote [facility] 06-13-2021 10:00-0400 Blood Pressure Location Una Foote [facility] 06-04-2021 16:17-0400 Diastolic blood pressure 77 mm[Hg] [facility] 06-04-2021 16:17-0400 Heart rate 92 /min [facility] 06-04-2021 16:17-0400 Mean blood pressure 90 mm[Hg] [facility] 06-04-2021 16:17-0400 Respiratory rate 15 /min [facility] 06-04-2021 16:17-0400 SaO2% (BldA) [Mass fraction] 97 % [facility] 06-04-2021 16:17-0400 Systolic blood pressure 117 mm[Hg] [facility] 06-04-2021 15:07-0400 Diastolic blood pressure 86 mm[Hg] [facility] 06-04-2021 15:07-0400 Heart rate 99 /min [facility] 06-04-2021 15:07-0400 Mean blood pressure 106 mm[Hg] [facility] 06-04-2021 15:07-0400 Respiratory rate 17 /min [facility] 06-04-2021 15:07-0400 SaO2% (BldA) [Mass fraction] 100 % [facility] 06-04-2021 15:07-0400 Systolic blood pressure 146 mm[Hg] [facility] 06-04-2021 14:34-0400 Body temperature 98.6 [degF] [facility] 06-04-2021 14:34-0400 Diastolic blood pressure 87 mm[Hg] [facility] 06-04-2021 14:34-0400 Heart rate 105 /min [facility] 06-04-2021 14:34-0400 Mean blood pressure 108 mm[Hg] [facility] 06-04-2021 14:34-0400 Respiratory rate 18 /min [facility] 06-04-2021 14:34-0400 SaO2% (BldA) [Mass fraction] 96 % [facility] 06-04-2021 14:34-0400 Systolic blood pressure 149 mm[Hg] [facility] 05-13-2021 12:49-0400 Body temperature 97.7 [degF] Ariadne Murray [facility] 05-13-2021 12:49-0400 Diastolic blood pressure 70 mm[Hg] Ariadne Murray [facility] 05-13-2021 12:49-0400 Heart rate 88 /min Ariadne Murray [facility] 05-13-2021 12:49-0400 SaO2% (BldA) [Mass fraction] 98 % Ariadne Murray [facility] 05-13-2021 12:49-0400 Systolic blood pressure 110 mm[Hg] Ariadne Murray [facility] Encounters Encounter Date Encounter Type Care Provider Facility Start: 10-24-2024 End: 10-24-2024 Bamboo flowsheet Shaina SAAVEDRA Work Phone: [facility] Start: 10-24-2024 End: 10-24-2024 Bamboo flowsheet Shaina SAAVEDRA Work Phone: [facility] Start: 10-24-2024 End: 10-24-2024 flow sheet Shaina SAAVEDRA Work Phone: [facility] Comment on above: Third trimester preg perez ([facility]); 33 weeks gestation of ([facility]) Start: 10-20-2024 End: 10-20-2024 Clinisync Result Encounter Zack Angel DO Work Phone: [facility] External Department Unsolicited Start: 10-20-2024 End: 10-20-2024 Clinisync Result Encounter Zack Angel DO Work Phone: [facility] External [facility] Unsolicited Start: 10-18-2024 End: 10-18-2024 Documentation procedure Krista Cruz RN Work Phone: [facility] Start: 10-17-2024 End: 10-17-2024 Clinisync Result Encounter Zack Angel DO Work Phone: [facility] External Department Unsolicited Start: 10-17-2024 End: 10-17-2024 Clinisync Result Encounter Zack Angel DO Work Phone: [facility] External Department Unsolicited Start: 10-17-2024 End: 10-17-2024 flow sheet Zack Angel DO Work Phone: [facility] Comment on above: 32 weeks gestation o f ([facility]); Third trimester ([facility]); Hypertension affecting in third trimester ([facility]); Diet controlled gestational diabetes mellitus (GDM), antepartum ([facility]); Gestational diabetes mellitus (GDM), antepartum, gestational diabetes method of control unspecified ([facility]); Elevated glucose tolerance test; induced hypertension, antepartum ([facility]) Start: 10-17-2024 End: 10-17-2024 ambulatory ZACK ANGEL Not Available Start: 10-11-2024 End: 10-11-2024 Chart abstracting Scanning Provider External [facility] Start: 10-10-2024 End: 10-10-2024 Clinisync Result Encounter Zack Angel DO Work Phone: [facility] External Department Unsolicited Start: 10-10-2024 End: 10-10-2024 Clinisync Result Encounter Zack Angel DO Work Phone: [facility] External Department Unsolicited Start: 10-08-2024 End: 10-08-2024 ambulatory ZACK ANGEL Not Available Start: 10-08-2024 End: 10-08-2024 flow sheet Zack Angel DO Work Phone: [facility] Comment on above: Third trimester preg perez ([facility]); 31 weeks gestation of ([facility]); Hypertension affecting in third trimester ([facility]) Start: 10-08-2024 End: 10-08-2024 Bamboo flowsheet Zack Angel DO Work Phone: [facility] Start: 10-08-2024 End: 10-08-2024 Bamboo flowsheet Zack Angel DO Work Phone: [facility] Start: 10-04-2024 End: 10-04-2024 Clinisync Result Encounter Zack Angel DO Work Phone: [facility] External Department Unsolicited Start: 10-04-2024 End: 10-04-2024 Clinisync Result Encounter Zack Angel DO Work Phone: [facility] External Department Unsolicited Start: 10-03-2024 End: 10-03-2024 flow sheet Zack Angel DO Work Phone: [facility] Comment on above: Third trimester preg perez ([facility]); Diet controlled gestational diabetes mellitus (GDM), antepartum ([facility]); Gestational diabetes mellitus (GDM), antepartum, gestational diabetes method of control unspecified ([facility]) Start: 10-03-2024 End: 10-03-2024 Clinisync Result Encounter Zack Angel DO Work Phone: [facility] External Department Unsolicited Start: 10-03-2024 End: 10-03-2024 Clinisync Result Encounter Zack Angel DO Work Phone: [facility] External Department Unsolicited Start: 10-03-2024 End: 10-03-2024 ambulatory ZACK ANGEL Not Available Start: 09-17-2024 End: 09-17-2024 Bamboo flowsheet Shaina SAAVEDRA Work Phone: [facility] Start: 09-17-2024 End: 09-17-2024 Bamboo flowsheet Sahina SAAVEDRA Work Phone: [facility] Start: 09-17-2024 End: 09-17-2024 flow sheet Shaina SAAVEDRA Work Phone: [facility] Comment on above: Size of fetus incons istent with dates in second trimester ([facility]) (Primary Dx); 28 weeks gestation of ([facility]) Start: 09-17-2024 End: 09-17-2024 ambulatory SHAINA MCCORMICK Not Available Start: 08-29-2024 End: 08-29-2024 ambulatory ZACK ANGEL Not Available Start: 08-21-2024 End: 08-21-2024 Encounter identifier Yixjono Virk DDS Work Phone: [facility] Start: 08-20-2024 End: 08-20-2024 ambulatory ZACK JOHNSO Not Available Start: 08-20-2024 End: 08-20-2024 Patient encounter procedure Zack Angel DO Work Phone: [facility] Start: 08-20-2024 End: 08-20-2024 Periodic preventive med est patient 18-39 yrs Zack Johnso DO Work Phone: [facility] Comment on above: Well woman exam with routine gynecological exam; Second trimester ([facility]); 24 weeks gestation of ([facility]); Exposure to STD; Need for maternal serum alpha-protein (MSAFP) screening ([facility]); Encounter for follow-up ultrasound of anatomy ([facility]) Start: 08-20-2024 End: 08-20-2024 Bamboo flowsheet Zack Angel DO Work Phone: [facility] Start: 08-20-2024 End: 08-23-2024 Bamboo flowsheet Zack Angel DO Work Phone: [facility] Start: 08-20-2024 End: 08-23-2024 Clinisync Result Encounter Zack Johnso DO Work Phone: [facility] External Department Unsolicited Start: 08-20-2024 End: 08-21-2024 External Result Encounter Zack Johnso DO Work Phone: [facility] External Department Unsolicited Start: 08-15-2024 End: 08-15-2024 Encounter identifier Bishnu Virk DDS Work Phone: [facility] Start: 08-15-2024 End: 08-15-2024 comprehensive oral evaluation - new or established patient Bishnu Virk DDS Work Phone: [facility] Start: 08-01-2024 ambulatory Bishnu Virk DDS [facility] Start: 07-23-2024 End: 07-23-2024 ambulatory SHAINA MCCORMICK Not Available Start: 07-23-2024 End: 07-23-2024 flow sheet Shaina [place] PA Work Phone: [facility] Comment [...] [id number] Start: 05-18-2024 End: 05-18-2024 ambulatory ZACK ORTIZ Not Available Start: 04-27-2024 End: 04-27-2024 ambulatory LUNCH WAGON OPERATOR-C REY Martin ALAS Facility:[facility] Start: 04-25-2024 ambulatory LUNCH WAGON OPERATOR-C REY R BISHOP Facility:[facility] Start: 04-18-2024 End: 04-18-2024 Emergency department patient visit Alva Ríosfrancis [facility] Start: 11-07-2023 ambulatory LUNCH WAGON OPERATOR-C REY ALAS Facility:[facility] Start: 10-19-2023 End: 10-19-2023 ambulatory LUNCH WAGON OPERATOR-C REY R BISHOP Facility:[facility] Start: 10-19-2023 End: 10-19-2023 Patient encounter procedure REY ALAS [facility] Start: 10-10-2023 End: 10-10-2023 ambulatory LUNCH WAGON OPERATOR-C REY Martin ALAS Facility:[facility] Start: 10-10-2023 End: 10-10-2023 Patient encounter procedure REY ALAS [facility] Start: 07-25-2023 End: 07-25-2023 ambulatory LUNCH WAGON OPERATOR-C REY Martin ALAS Facility:[facility] Start: 07-25-2023 End: 07-25-2023 Patient encounter procedure REY ALAS [facility] Start: 07-08-2023 End: 07-08-2023 Emergency department patient visit Jagdish Dunn [facility] Start: 07-06-2023 End: 07-06-2023 ambulatory LUNCH WAGON OPERATOR-C REY R BISHOP Facility:[facility] Start: 07-06-2023 End: 07-06-2023 Patient encounter procedure REY ALAS [facility] [place] Start: 01-14-2023 End: 01-14-2023 Patient encounter procedure Ricarda Garcia [facility] Start: 01-11-2023 End: 01-11-2023 Emergency department patient visit Jagdish Dunn [facility] Start: 01-08-2023 End: 01-08-2023 Emergency department patient visit Alva Jo [facility] Start: 01-06-2023 End: 01-06-2023 Emergency department patient visit Jesus Ayers [facility] Start: 10-17-2022 End: 10-17-2022 Emergency department patient visit Jagdish Dunn [facility] Start: 02-17-2022 End: 02-17-2022 Emergency department patient visit Jagdish Dunn [facility] Start: 11-10-2021 End: 11-10-2021 Emergency department patient visit Jesus Ayers [facility] Start: 09-11-2021 End: 09-14-2021 Evaluation and management of inpatient Presley Timmons Facility:[facility] Start: 09-11-2021 End: 09-14-2021 Evaluation and management of inpatient PHYSICIAN NO [facility] Start: 08-14-2021 End: 09-14-2021 Pre-admission assessment Presley Timmons [facility] Start: 08-12-2021 End: 08-12-2021 Lab Drop off Presley J Paulaphong [facility] Start: 07-17-2021 End: 07-17-2021 Emergency department patient visit Jagdish Dunn [facility] Start: 07-02-2021 End: 07-02-2021 Patient encounter procedure Jennifer SUERO [facility] Start: 06-14-2021 End: 07-15-2021 Pre-admission assessment Una Foote [facility] Start: 06-13-2021 End: 06-13-2021 OB Triage Una Foote [facility] Start: 06-04-2021 End: 06-04-2021 Emergency department patient visit Alva Jo [facility] Start: 05-30-2021 End: 05-30-2021 Patient encounter procedure Presley Timmons [facility] Start: 2021 End: 06-14-2021 Pre-admission assessment Presley Timmons [facility] Start: 05-13-2021 End: 05-13-2021 Patient encounter procedure Ariadne Murray [facility] Start: 02-11-2021 End: 02-11-[address] RORO GARNER Facility: Procedures Date Procedure Procedure Detail Performing Clinician Start: 10-24-2024 Urnls dip stick/tabl et rgnt non-auto w/o micrscp Shaina Mccormick PA Work Phone: Start: 10-20-2024 ALL CBC WITH AUTO DIFF Zack Angel DO Work Phone: Start: 10-17-2024 Urnls dip stick/tabl et rgnt [...] Work Phone: Start: 10-03-2024 TBH CREATININE Zack Shaver zio DO Work Phone: Start: 10-03-2024 Urnls dip stick/tabl et rgnt non-auto w/o micrscp Shaina Mccormick PA Work Phone: Start: 10-03-2024 Basic metabolic pane l calcium total Zack Ortiz DO Work Phone: Start: 10-03-2024 CBC W Auto Different ial panel - Blood Zack Ortiz DO Work Phone: Start: 10-03-2024 Hepatic function panel Zack Ortiz DO Work Phone: Start: 08-21-2024 End: 08-21-2024 Documentation of current medications Bishnu Virk DDS Work Phone: Start: 08-21-2024 End: 08-21-2024 extraction, erupted tooth or exposed root (elevation and/or forceps removal) Bishnu Virk DDS Work Phone: Start: 08-21-2024 End: 08-21-2024 nutritional counseling for control of dental disease Bishnu Virk DDS Work Phone: Start: 08-21-2024 End: 08-21-2024 oral hygiene instructions Bishnu Virk DDS Work Phone: Start: 08-20-2024 RECURRENT VAGINITIS (HTRX) Zack Ortiz DO Work Phone: Start: 08-20-2024 Urnls dip stick/tabl et rgnt non-auto w/o micrscp Zack Ortiz DO Work Phone: Start: 08-20-2024 IGP,APTIMA HPV,AGE GDLN Zackphong Johnso DO Work Phone: Start: 08-20-2024 Microscopic observat ion [Identifier] in Cervix by Cyto stain Shaina SAAVEDRA Work Phone: Start: 08-15-2024 End: 08-15-2024 bitewings - three radiographic images Yieverette Virk DDS Work Phone: Start: 08-15-2024 End: 08-15-2024 Documentation of current medications Bishnu Virk DDS Work Phone: Start: 08-15-2024 End: 08-15-2024 oral hygiene instructions Yieverette Virk DDS Work Phone: Start: 08-15-2024 End: 08-15-2024 panoramic radiographic image Yieverette Ko DS Work Phone: Start: 07-24-2024 Urnls dip stick/tabl et rgnt non-auto w/o micrscp Shaina SAAVEDRA Work Phone: Start: 06-18-2024 Urnls dip stick/tabl et rgnt non-auto w/o micrscp Zack Angel DO Work Phone: Start: 2024 [facility] DRUG SCREEN RAPI D (URINE) Zack Nagel DO Work Phone: Start: 05-24-2024 BOX TEST Minekey DO Work Phone: Start: 05-22-2024 Urine test visual color cmprsn meths Zack Angel DO Work Phone: Sameera Murray denies Ariadne Murray SARS Antigen (LFIA) PHYSICIA N NO FAMILY Plan of Treatment Date Care Activity Detail Author Start: 09-14-2031 DTaP,Tdap and Td Vac cines (3 - Td or Tdap) DTaP,Tdap and Td Vaccines (3 - Td or Tdap) [facility] Start: 08-20-2029 Screening for malign ant neoplasm of cervix [facility] Start: 08-21-2027 Screening for malign ant neoplasm of cervix Pap Smear [facility] Start: 10-04-2025 Adult BMI Screening Adult BMI Screen ing [facility] Start: 10-31-2024 End: 10-31-2024 Patient encounter procedure 10/31/2024 1:40 PM EDT Routine GREG MANZANO [address] [place] [address] Zack Ortiz DO [address] [place] [address] GREG [place] Start: 10-24-2024 End: 10-24-2024 Patient encounter procedure GREG MANZANO Comment on above: Arrived Start: 10-18-2024 End: 10-18-2024 ambulatory 10/18/2024 1:30 PM EDT Support Visit Maternal- Medicine at [facility] [address] [place] [id number] Krista Cruz RN [address] [facility], [address] [place] [id number] Laura Weaver LD [facility]- Medicine at [facility] Start: 10-17-2024 End: 10-17-2025 Alanine aminotransferase [Enzymatic activity/volume] in Serum or Plasma ALT Lab Routine induced hypertension, antepartum ([facility]) Expected: 10/17/2024 (Approximate), Expires: 10/17/2025 [facility] Comment on above: Expected: 10/17/2024 (Approximate), Expires: 10/17/2025 Start: 10-17-2024 End: 10-17-2025 Aspartate aminotransferase [Enzymatic activity/volume] in Serum or Plasma AST Lab Routine induced hypertension, antepartum ([facility]) Expected: 10/17/2024 (Approximate), Expires: 10/17/2025 [facility] Comment on above: Expected: 10/17/2024 (Approximate), Expires: 10/17/2025 Start: 10-17-2024 End: 10-17-2025 CBC W Auto Differential panel - Blood CBC and differential Lab Routine induced hypertension, antepartum ([facility]) Expected: 10/17/2024 (Approximate), Expires: 10/17/2025 [facility] Comment on above: Expected: 10/17/2024 (Approximate), Expires: 10/17/2025 Start: 10-17-2024 End: 10-17-2025 Creatinine [Mass/volume] in Serum or Plasma Creatinine Lab Routine induced hypertension, antepartum ([facility]) Expected: 10/17/2024 (Approximate), Expires: 10/17/2025 [facility] Work Phone: Comment on above: Expected: 10/17/2024 (Approximate), Expires: 10/17/2025 Start: 10-17-2024 End: 10-17-2025 Urea nitrogen [Mass/volume] in Serum or Plasma BUN Lab Routine induced hypertension, antepartum ([facility]) Expected: 10/17/2024, Expires: 10/17/2025 [facility] Comment on above: Expected: 10/17/2024 , Expires: 10/17/2025 Start: 10-17-2024 End: 02-16-2025 US for US OB follow up transabdominal approach Imaging Routine Hypertension affecting in third trimester ([facility]) Diet controlled gestational diabetes mellitus (GDM), antepartum ([facility]) induced hypertension, antepartum ([facility]) Expected: 10/17/2024, Expires: 02/16/2025 [facility] Comment on above: Expected: 10/17/2024 , Expires: 02/16/2025 Start: 10-17-2024 End: 10-17-2024 Patient encounter procedure 10/17/2024 1:30 PM EDT Routine GREG MANZANO [address] [place] [id number] Zack Ortiz DO [address] [place] [place] [address] GREG MANZANO Start: 10-15-2024 COVID-19 Vaccine ( season) COVID-19 Vaccine ( season) [facility] Start: 10-15-2024 Influenza vaccination N [facility] Start: 10-03-2024 End: 04-05-2025 US biophysical profile w non stress test US biophysical profile w non stress test Imaging Routine Gestational diabetes mellitus (GDM), antepartum, gestational diabetes method of control unspecified ([facility]) Expected: 10/03/2024 (Approximate), Expires: 04/05/2025 [facility] Work Phone: Comment on above: Expected: 10/03/2024 (Approximate), Expires: 04/05/2025 Start: 09-20-2024 End: 09-20-2024 US for US OB limited 1+ fetuses Imaging Routine Encounter for follow-up ultrasound of anatomy ([facility]) Expected: 09/20/2024, Expires: 09/20/2024 [facility] Work Phone: Comment on above: Expected: 09/20/2024 , Expires: 09/20/2024 Start: 09-17-2024 End: 01-17-2025 US for US OB follow up transabdominal approach Imaging Routine Size of fetus inconsistent with dates in second trimester ([facility]) Expected: 09/17/2024, Expires: 01/17/2025 [facility] Work Phone: Comment on above: Expected: 09/17/2024 , Expires: 01/17/2025 Start: 09-17-2024 End: 09-17-2024 Patient encounter procedure [facility] Comment on above: Arrived Start: 09-05-2024 [facility]rina [facility] Work Phone: Start: 08-29-2024 End: 08-29-2024 Professional / ancillary services management 08/29/2024 1:00 PM EDT Ancillary Procedure [facility] [address] [place] [address] [facility] Start: 08-21-2024 [facility] Work Phone: Start: 08-20-2024 End: 08-20-2024 Patient encounter procedure 08/20/2024 2:10 PM EDT Routine [facility] [address] [place] [address] Zack Ortiz DO [address] [place], [place] [id number] [facility] Start: 08-15-2024 [facility] Work Phone: Start: 07-23-2024 End: 07-23-2024 Patient encounter procedure 07/23/2024 2:30 PM EDT Routine [facility] [address] [place] [address] Shaina Mccormick PA [address] [place] [address] [facility] Start: 07-23-2024 End: 08-22-2024 Alpha fetoprotein, maternal Alpha fetoprotein, maternal Lab Routine Need for maternal serum alpha-protein (MSAFP) screening Expected: 07/23/2024 (Approximate), Expires: 08/22/2024 [facility] Work Phone: Comment on above: Expected: 07/23/2024 (Approximate), Expires: 08/22/2024 Start: 07-23-2024 End: 07-23-2024 Professional / ancillary services management 07/23/2024 1:30 PM EDT Ancillary Procedure [facility] [address] [place] [address] [facility] Start: 06-18-2024 End: 09-18-2024 US for US OB 14+ weeks anatomy scan Imaging Routine Screening, , for anatomic survey Expected: 06/18/2024, Expires: 09/18/2024 [facility] Work Phone: Comment on above: Expected: 06/18/2024 , Expires: 09/18/2024 Start: 06-18-2024 End: 06-18-2024 Patient encounter procedure [facility] Comment on above: Arrived Start: 2024 Screening for malign ant neoplasm of cervix [facility] Start: 05-18-2024 End: 05-18-2025 ABO/Rh ABO/Rh Lab Routine Missed menses , unspecified gestational age Expected: 05/18/2024 (Approximate), Expires: 05/18/2025 [facility] Comment on above: Expected: 05/18/2024 (Approximate), Expires: 05/18/2025 Start: 05-18-2024 End: 05-18-2025 Blood type and Indirect antibody screen panel - Blood Type and screen Lab Routine Missed menses , unspecified gestational age Expected: 05/18/2024 (Approximate), Expires: 05/18/2025 [facility] Work Phone: Comment on above: Expected: 05/18/2024 (Approximate), Expires: 05/18/2025 Start: 05-18-2024 End: 05-18-2025 Drugs of abuse panel - Urine by Screen method Rapid drug screen, urine Lab Routine , unspecified gestational age Encounter for supervision of normal first in first trimester Expected: 05/18/2024 (Approximate), Expires: 05/18/2025 [facility] Comment on above: Expected: 05/18/2024 (Approximate), Expires: 05/18/2025 Start: 10-16-2023 COVID-19 Vaccine ( season) COVID-19 Vaccine ( season) [facility] Start: 09-14-2021 [facility] Work Phone: Start: 09-12-2021 Hospital admission [facility] Work Phone: Start: 09-11-2021 Delivery of Products of Conception, External Approach Delivery of Products of Conception, External Approach [facility] Start: 09-11-2021 Division of Female Perineum, External Approach Division of Female Perineum, External Approach [facility] Start: 09-11-2021 Drainage of Amniotic Fluid, Therapeutic from Products of Conception, Via Natural or Artificial Opening Drainage of Amniotic Fluid, Therapeutic from Products of Conception, Via Natural or Artificial Opening [facility] Start: 05-28-2015 Screening for malign ant neoplasm of cervix Pap Smear [facility] Start: 2012 Adult BMI Follow Up Plan Adult BMI Follow Up Plan [facility] Start: 2006 Depression Screening Depression Scre ening [facility] Start: 2006 Tobacco Screening Tobacco Screening [facility] Bacteria identified in Urine by Culture Urine culture Microbiology Routine Missed menses Ordered: 05/18/2024 [facility] Comment on above: Ordered: 05/18/2024 CBC W Auto Different ial panel - Blood CBC and differential Lab Routine Missed menses , unspecified gestational age Ordered: 05/18/2024 [facility] Comment on above: Ordered: 05/18/2024 CHLAMYDIA TRACHOMATI S (GENITO/STI) CHLAMYDIA TRACHOMATIS (GENITO/STI) Lab Routine Exposure to STD Ordered: 08/20/2024 [facility] Comment on above: Ordered: 08/20/2024 Cytology Cervical or vaginal smear or scraping study Pap Smear Pathology and Cytology Routine Well woman exam with routine gynecological exam Ordered: 08/20/2024 [facility] Comment on above: Ordered: 08/20/2024 Hemoglobin A1c/Hemoglobin.total in Blood Hemoglobin A1c Lab Routine Missed menses , unspecified gestational age Ordered: 05/18/2024 [facility] Comment on above: Ordered: 05/18/2024 Hepatitis B virus breaux rface Ag [Presence] in Serum or Plasma by Immunoassay Hepatitis B surface antigen Lab Routine Missed menses , unspecified gestational age Ordered: 05/18/2024 [facility] Comment on above: Ordered: 05/18/2024 Hepatitis C virus Ab [Presence] in Serum or Plasma by Immunoassay Hepatitis C antibody Lab Routine Missed menses , unspecified gestational age Ordered: 05/18/2024 [facility] Comment on above: Ordered: 05/18/2024 HIV-1/HIV-2 antigen/antibody combination immunoassay HIV-1 and HIV-2 antibodies Lab Routine Missed menses , unspecified gestational age Ordered: 05/18/2024 [facility] Comment on above: Ordered: 05/18/2024 Human papilloma viru s DNA [Presence] in Unspecified specimen by Probe with amplification HPV DNA probe, amplified Microbiology Routine Well woman exam with routine gynecological exam Ordered: 08/20/2024 [facility] Comment on above: Ordered: 08/20/2024 Neisseria gonorrhoea e DNA [Presence] in Unspecified specimen by EMMA with probe detection Neisseria gonorrhea DNA probe, direct Lab Routine Exposure to STD Ordered: 08/20/2024 [facility] Comment on above: Ordered: 08/20/2024 Patient Education Post- Di jelani Instructions ([facility]) [facility] Work Phone: Patient referral [facility] Work Phone: Reagin Ab [Presence] in Serum by RPR RPR Lab Routine Missed menses , unspecified gestational age Ordered: 05/18/2024 [facility] Comment on above: Ordered: 05/18/2024 Rubella antibody, IgG Rubella an tibody, IgG Lab Routine Missed menses , unspecified gestational age Ordered: 05/18/2024 [facility] Comment on above: Ordered: 05/18/2024 SURESWAB(R) ADVANCED VAGINITIS PLUS, TMA SURESWAB(R) ADVANCED VAGINITIS PLUS, TMA Pathology and Cytology Routine Exposure to STD Ordered: 08/20/2024 [facility] Comment on above: Ordered: 08/20/2024 Immunizations Immunization Date Immunization Notes Care Provider Sivakumar raines 09-13-2021 tetanus toxoid, reduced diphtheria toxoid, and acellular pertussis vaccine, adsorbed PHYSICIAN ALEXIS [facility] 10-09-2020 SARS-CoV-2 (COVID-19 ) [id number] vaccine Ricarda Garcia [facility] Comment on above: Result Comment: 2022: TPVAL 09-29-2020 tetanus toxoid, reduced diphtheria toxoid, and acellular pertussis vaccine, adsorbed; Translations: [Boostrix (Tdap)] Ariadne Murray [facility] Comment on above: Result Comment: (L) deltoid Result Comment: (L) deltoid 11-26-2011 influenza virus vaccine, unspecified formulation Ricarda Jose [facility] 02-12-2004 influenza virus vaccine, unspecified formulation Ricarda Garcia [facility] 03-01-2003 influenza virus vaccine, unspecified formulation Ricarda Garcia [facility] 12-17-1996 varicella virus vaccine Ricarda Garcia [facility] 10-19-1995 DTaP, unspecified formulation Ricarda Garcia [facility] 10-19-1995 haemophilus influenzae type b vaccine, PRP-T conjugate Ricarda Garcia [facility] 06-21-1995 measles, mumps and rubella virus vaccine Ricarda Garcia [facility] 03-09-1995 hepatitis B vaccine, pediatric or pediatric/adolescent dosage Ricarda Garcia [facility] 1994 DTaP, unspecified formulation Ricarda Garcia [facility] 1994 haemophilus influenzae type b vaccine, PRP-T conjugate Ricarda Garcia [facility] 1994 poliovirus vaccine, unspecified formulation Ricarda Garcia [facility] 1994 DTaP, unspecified formulation Ricarda Garcia [facility] 1994 haemophilus influenzae type b vaccine, PRP-T conjugate Ricarda Garcia [facility] 1994 hepatitis B vaccine, pediatric or pediatric/adolescent dosage Ricarda Garcia [facility] 1994 poliovirus vaccine, unspecified formulation Ricarda Garcia [facility] 1994 DTaP, unspecified formulation Ricarda Garcia [facility] 1994 haemophilus influenzae type b vaccine, PRP-T conjugate Ricarda Garcia [facility] 1994 hepatitis B vaccine, pediatric or pediatric/adolescent dosage Ricarda Garcia [facility] 1994 poliovirus vaccine, unspecified formulation Ricarda Garcia [facility] NEGATED: Highlighted row has not occurred!10-04-2024 tetanus toxoid, reduced diphtheria toxoid, and acellular pertussis vaccine, adsorbed Scanning [facility] NEGATED: Highlighted row has not occurred!07-06-2023 influenza virus vaccine, unspecified formulation REY ALAS [facility] [place] Payers Date Payer Category Payer Private Health Insurance [facility] MEDICAID [id number] 2024 Medicaid HMO [employer] [id number] 2024 Medicaid MEDICAID [facility] [id number] 2024 Medicaid [id number] 2024 Blue Cross [facility] Other ANTHEM [id number] 2023 Blue Cross Blue [employer] ld Managed Care - PPO ANTHEM [id number] 2021 Self-pay 2021 Unknown [id number] 2021 Blue Cross Blue Shield [id number] 2021 Unknown [id number] 1994 Unknown [id number] 2.840.1.890626.3.579.2. 593 1994 Unknown [id number] 2.840.1.773624.3.579.2 1994 Unknown [id number] 2.16840.1.244542.3.579.2 1994 Unknown [id number] 2.16840.1.598275.3.579.2. 72 1994 Unknown [id number] 2.16840.1.692779.3.579.2 72 1994 Unknown [id number] 2.16840.1.230131.3.579.2. 72 1994 Unknown [id number] 2.16840.1.061183.3.579.2 72 1994 Unknown [id number] 2.16840.1.483664.3.579.2. 727 1994 Unknown [id number] 2.16840.1.693993.3.579.2. 72 1994 Unknown [id number] 2.16.840.1.429198.3.579.2. 72 1994 Unknown [id number] 2.16.840.1.430577.3.579.2. 1994 Unknown [id number] 2.16.840.1.318012.3.579.2. 716 1994 Unknown [id number] 2.16840.1.545600.3.579.2. 1258 1994 Unknown [id number] 2.16.840.1.791203.3.579.2. 1258 1994 Unknown [id number] 2.16840.1.391767.3.579.2. 1258 1994 Unknown [id number] 2.16840.1.958667.3.579.2. 1258 1994 Unknown [id number] 2.16840.1.371826.3.579.2. 1258 1994 Unknown [id number] 2.16840.1.752170.3.579.2. 1258 1994 Unknown [id number] 2.16840.1.336979.3.579.2. 1258 1994 Unknown [id number] 2.16840.1.936768.3.579.2. 1258 1994 Unknown [id number] 2.16840.1.248584.3.579.2. 1258 1994 Unknown [id number] 2.16840.1.726508.3.579.2. 1258 1994 Unknown [id number] 2.16840.1.998752.3.579.2. 1258 1994 Unknown [id number] 2.16840.1.363794.3.579.2. 1258 1959 Unknown [id number] Unknown [id number] 2.16840.1.330618.3.579.2. 531 Social History Date Type Detail Facility Start: 10-03-2020 End: 07-06-2023 Tobacco smoking status Never smoked tobacco (finding) [facility] Tobacco smoking status Never [facility] Start: 07-25-2018 End: 08-15-2015 Sex Assigned At Female [facility] Start: 1995 Sex Assigned At Female [facility] Start: 08-15-2024 End: 08-21-2024 Tobacco smoking status ILIS Tobacco smoking consumption unknown [facility] Start: 03-15-2024 [facility] Start: 05-17-2024 Gender identity Identifies as female gender (finding) [facility] Start: 05-17-2024 Sexual orientation Bisexual (finding) [facility] Start: 08-15-2024 Alcohol intake Alcohol Use Details [facility] Sexual Orientation Straight or heterosexu al [facility] Work Phone: Start: 07-25-2018 History of Social function [facility] Start: 1995 Sex assigned at Not on file [facility] Start: 09-17-2014 Sex Female (finding) [facility] Medical Equipment Procedure Code Equipment Code Equipment Origin al Text Equipment Identifier Dates 1 strip by In Vi tro route Daily Use in the morning prior to breakfast, 1 hour after each meal for a total of 4times daily. [id number] Start: 06-18-2024 End: 07-18-2024 1 each by In Vit ro route Daily Use to check FSBS four times daily [id number] Start: 06-18-2024 End: 07-18-2024 Use as instructed [id number] Start: 10-03-2024 End: 10-03-2024 1 strip by In Vi tro route Daily Use in the morning prior to breakfast, 1 hour after each meal for a total of 4times daily. [id number] Start: 10-17-2024 End: 11-16-2024 1 each by In Vit ro route Daily Use to check FSBS four times daily [id number] Start: 10-17-2024 End: 11-16-2024 Goals Date Patient Goal Desired Activity /State Functional Status Date Assessment Result Facility 04-18-2024 Functional Status N/A [facility] 10-10-2023 Functional Status N/A [facility] 07-08-2023 Functional Status N/A [facility] 07-06-2023 Functional Status N/A [facility] 01-11-2023 Functional Status N/A [facility] 01-08-2023 Functional Status N/A [facility] 01-06-2023 Functional Status N/A [facility] 10-17-2022 Functional Status N/A [facility] 02-17-2022 Functional Status N/A [facility] 11-10-2021 Functional Status N/A [facility] 09-14-2021 Functional status Patient at Baseline [facility] Work Phone: Mental Status Date Assessment Result Facility 09-14-2021 Cognitive function Cognitive Sta tus Patient at Baseline [facility] Work Phone: Clinical Notes 05-13-2021 to 10-24-2024 KERI Velasquez - 10/24/2024 1:20 PM Tanvir Cruz RN - 10/18/2024 2:29 PM Shannon Lang LPN - 10/17/2024 1:30 PM Eyal Randle LPN - 10/08/2024 2:20 PM EDT Note Date & Type Note Facility 10-24-2024 History of Present illness Narrative Reason for [...] Vitals: Estimated body mass index is 49.95 kg/m as calculated from the following: Height as of 10/28/21: 5' 4 . Weight as of this encounter: 291 lb. BP: (!) 142/92 No LMP recorded. Patient is . ASSESSMENT & PLAN ICD-10-CM 1. Third trimester ([facility]) Z34.93 POCT urinalysis dipstick manually resulted 2. 33 weeks gestation of ([facility]) Z3A.33 Return OB: Patient presents today for [...] of: KERI Velasquez documented in this encounter [facility] 10-18-2024 History of Present illness Narrative Summary: MFM Missed Diabetes GDM Education Class Missed/no show (for) Diabetes Education GDM class this afternoon. documented in this encounter [facility] 10-17-2024 History of Present illness Narrative Reason [...] of 4times daily. Blood Glucose Monitoring Suppl ([employer] Glucometer) w/Device kit 1 kit, Does not [...] nursing note reviewed. Exam conducted with a tipping machine operator present. Vitals: Estimated body mass index is 49.33 kg/m as calculated from the following: Height as of 10/28/21: 5' 4 . Weight as of this encounter: 287 lb 6.4 oz. BP: 130/82 No LMP recorded. Patient is . ASSESSMENT & PLAN ICD-10-CM 1. 32 weeks gestation of ([facility]) Z3A.32 POCT urinalysis dipstick manually resulted 2. Third trimester ([facility]) Z34.93 POCT urinalysis dipstick manually resulted 3. Hypertension affecting in third trimester ([facility]) O16.3 US OB follow up transabdominal approach 4. Diet controlled gestational diabetes mellitus (GDM), antepartum ([facility]) O24.410 US OB follow up transabdominal approach 5. Gestational diabetes mellitus (GDM), antepartum, gestational diabetes method of control unspecified ([facility]) O24.419 Lancets Ultra Thin misc Alcohol [...] Glucometer) w/Device kit 7. induced hypertension, antepartum ([facility]) O13.9 Creatinine CBC and differential ALT [...] Zack Ortiz DO documented in this encounter [facility] 10-08-2024 History of Present illness Narrative Reason for Appointment: Patient ID: Sabrina Richmond is a 29 y.o. female who presents for Routine Visit Patient presents today for Return OB appointment. MEDICATIONS Current Outpatient Medications Medication Instructions ALBUTEROL IN Alcohol Swabs (Alcohol Prep Pad) 70 % pads 1 Pad, Topical, Daily, Use four times daily to check FSBS. Blood Glucose Monitoring Suppl ([employer] Glucometer) w/Device kit 1 kit, Does not [...] nursing note reviewed. Exam conducted with a tipping machine operator present. Vitals: Estimated body mass index is 49.33 kg/m as calculated from the following: Height as of 10/28/22: 5' 4 . Weight as of this encounter: 287 lb 6.4 oz. BP: (!) 142/100 No LMP recorded. Patient is . ASSESSMENT & PLAN ICD-10-CM 1. Third trimester ([facility]) Z34.93 Urine dip 2. 31 weeks gestation of ([facility]) Z3A.31 Urine dip Patient was seen at [facility] last week. Patient left AMA and was advised that it is recommended that she return to [facility] until delivery as instructed. Patient declines and would like to continue locally at this time. Informed patient that if she experiences any symptoms then she is to return to [facility] to be monitored. Patient declines and will increase BP meds to Labetalol 300mg TID. Patient aware that she needs to continue her NST/BPPs and weekly office visits. Patient voiced that she has changed her diet and her diabetes is now under control. Documented by Nayeli Randle LPN on behalf of: Zack Ortiz DO documented in this encounter [facility] 10-03-2024 History of Present illness Narrative Reason for Appointment: Patient ID: Sabrina Richmond is a 29 y.o. female who presents for Weight Management Patient presents today for Return OB appointment. MEDICATIONS Current Outpatient Medications Medication Instructions ALBUTEROL IN Alcohol Swabs (Alcohol Prep Pad) 70 % pads 1 Pad, Topical, Daily, Use four times daily to check FSBS. Blood Glucose Monitoring Suppl ([employer] Glucometer) w/Device kit 1 kit, Does not [...] nursing note reviewed. Exam conducted with a tipping machine operator present. Vitals: Estimated body mass index is 50.98 kg/m as calculated from the following: Height as of 10/28/21: 5' 4 . Weight as of this encounter: 297 lb. BP: (!) 154/100 No LMP recorded. Patient is . ASSESSMENT & PLAN ICD-10-CM 1. Third trimester ([facility]) Z34.93 POCT urinalysis dipstick manually resulted 2. Diet controlled gestational diabetes mellitus (GDM), antepartum ([facility]) O24.410 Return OB: Patient presents today [...] Zack Ortiz DO documented in this encounter [facility] 09-17-2024 History of Present illness Narrative Reason [...] PLAN ICD-10-CM 1. 28 weeks gestation of ([facility]) Z3A.28 Return OB: Patient presents today [...] of: KERI Velasquez documented in this encounter [facility] 08-21-2024 History of Presen t illness Narrative Encounter Date ext [facility] Work Phone: [phone] History of Present illness Narrative* Berta YoderUBALDO - 08/20/2024 2:10 PM EDT Reason for Appointment: Patient ID: Sabrina Richmond is a 29 y.o. female who presents for Routine Visit Patient presents today for Return OB appointment. MEDICATIONS Current Outpatient Medications Medication Instructions ALBUTEROL IN Alcohol Swabs (Alcohol Prep Pad) 70 % pads 1 Pad, Topical, Daily, Use four times daily to check FSBS. Blood Glucose Monitoring Suppl ([employer] Glucometer) w/Device kit 1 kit, Does not [...] nursing note reviewed. Exam conducted with a tipping machine operator present. Vitals: Estimated body mass index is 47.38 kg/m as calculated from the following: Height as of 10/28/21: 5' 4 . Weight as of 07/23/24: 276 lb. BP: No LMP recorded. Patient is . ASSESSMENT & PLAN ICD-10-CM 1. Well woman exam with routine gynecological exam Z01.419 Pap Smear HPV DNA probe, amplified 2. Second trimester ([facility]) Z34.92 POCT urinalysis dipstick manually resulted 3. 24 weeks gestation of ([facility]) Z3A.24 4. Exposure to STD Z20.2 SURESWAB(R) ADVANCED VAGINITIS PLUS, TMA CHLAMYDIA TRACHOMATIS (GENITO/STI) Neisseria gonorrhea DNA probe, direct 5. Need for maternal serum alpha-protein (MSAFP) screening ([facility]) Z36.1 6. Encounter for follow-up ultrasound of anatomy ([facility]) Z36.2 US OB limited 1+ fetuses [...] by Berta Yoder MA on behalf of: shaina Mccormick pac [facility] Hospital[facility]ttgnhqhsf12-82-4675 History of Present illness Narrative* Encounter Date Complaint History Of Prese nt Illness DL DL [facility] Work Phone: [phone] History of Present illness Narrative* KERI Velasquez [...] nursing note reviewed. Exam conducted with a tipping machine operator present. Vitals: Estimated body mass index [...] of: Manasa Conroy NP documented [facility] HospitalSxrmufndjw75-16-8988 History of Present illness Narrative* Manasa Conroy [...] nursing note reviewed. Exam conducted with a tipping machine operator present. Vitals: Estimated body mass index [...] of: Zack Ortiz DO documented in [facility] HospitalEoddgjdxgf32-30-5394 History of Present illness Narrative* Snehal Lamb [...] or undercooked meat, and stay away from [facility]. Patient has also been advised to not [...] by: Snehal Lamb MA documented in this encounterTexas [facility] HospitalWempsgclpo02-09-1295 Hospital Discharge instructions Patient Education 04/18/2024 14:10:03 Community-Acquired Pneumonia, Adult, Toxr-dm-Adwy Community-Acquired Pneumonia, Adult Pneumonia is an infection [...] Follow these instructions at home: Medicines Take lgrs-ewi-dzsvzzl and prescription medicines only as told by [...] cannot use soap and water, use hand coal screener. Contact a doctor if: You have a [...] provider. Document Revised: 03/31/2022 Document Reviewed: 03/31/2022 [employer] Patient Education 2023 [employer]. Follow Up Care 04/18/2024 11:38:41 With:REY ALAS Address: [address] [place] [address] [place], [place] [id number] Business (1) When:04/21/2024 13:47:32 Comments:Call Dr for diagnosis based follow up [facility] 03-05-2025 NoteED Patient Education Note Infectious Disease [...] these instructions at home: Medicines ??? Take yyzb-prq-zircmif and prescription medicines only as told by [...] cannot use soap and water, use hand coal screener. Contact a doctor if: ??? You have [...] lungs. ??? Community-acquired pneumonia (more content not included)...[facility]03-05-2025 Evaluation + Plan noteExtracted from: Title:ED Note Author:Derick MS III, James Merida Date:04/18/24 Pneumonia (J18.9: Pneumonia, unspecified organism) Orders: albuterol, 1 puff(s), Inhalation, q6hr for wheezing, 18 gram, Refill(s) 0, [facility]/pharmacy #[id number], 165, cm, 04/18/24 11:46:00 EST, Height/Length Dosing, 124.5, kg, 04/18/24 11:46:00 EST, Weight Dosing amoxicillin, 1,000 mg = 2 cap(s), Oral, q12hr, X 7 day(s), # 28 cap(s), Refills(s) 0, Pharmacy: [facility]/pharmacy #[id number], 165, cm, 04/18/24 11:46:00 EST, Height/Length Dosing, 124.5, kg, 04/18/24 11:46:00 EST, Weight Dosing Influenza A&B Ag Rapid COVID Antigen ([facility]) [facility] 05-24-2024 Hospital Discharge instructions Patient Education 07/08/2023 [...] if you feel dizzy. General instructions Take hbdj-drf-dilotsl and prescription medicines only as told by [...] provider. Document Revised: 12/31/2020 Document Reviewed: 12/31/2020 [employer] Patient Education 2022 [employer] 07/08/2023 14:32:37 Sinus Pain Sinus Pain Sinus [...] to cool or dry air. Medicines Take kumx-ygo-gzgsrbk and prescription medicines only as told by [...] provider. Document Revised: 01/03/2022 Document Reviewed: 01/03/2022 [employer] Patient Education 2022 [employer]. Follow Up Care 07/08/2023 12:48:51 With:REY ALAS Address: [address] [place] [id number] Business (1) When:07/11/2023 14:12:36 [facility]05-24-2024 Evaluation + Plan noteExtracted from: Title:ED Note Author:Jarrell King PA-C te:07/08/23 Sinus headache (R51.9: Heada rowan, unspecified) Vertigo (R42: Dizziness and giddiness) Orders: ketorolac, 60 mg = 2 mL, Injection, IntraMuscular, Once, Stop date 07/08/23 13:55:00 EDT, STAT, Start date 07/08/23 13:55:00 EDT, 07/08/23 13:55:00 EDT loratadine-pseudoephedrine, 1 tab(s), Oral, q12hr for 10 day(s), 20 tab(s), Refill(s) 0, [facility]/pharmacy #[id number], 165.1, cm, 07/08/23 12:52:00 EDT, Height/Length Dosing, 127, kg, 07/08/23 12:52:00 EDT, Weight Dosing meclizine, 25 mg = 1 tab(s), Oral, TID, PRN for dizziness, # 15 tab(s), Refills(s) 0, Pharmacy: [facility]/pharmacy #[id number], 165.1, cm, 07/08/23 12:52:00 EDT, Height/Length Dosing, 127, kg, 07/08/23 12:52:00 EDT, Weight Dosing meclizine, 25 mg = 2 tab(s), Tab, Oral, Once, Stop date 07/08/23 13:02:00 EDT, STAT, Start date 07/08/23 13:02:00 EDT, 07/08/23 13:02:00 EDT XR Chest Single View Future Appointments Appointment Date:07/25/2023 08:40:00 AM Scheduled Provider:JOAQUÍN RODRIGUEZ Location:[facility] Appointment Type:[facility]05-22-2024 Hospital Discharge instructions Patient Education [...] Follow these instructions at home: Medicines Take nwcu-nft-qcsuzjz and prescription medicines only as told by [...] for Headache and Migraine Patients (CHAMP): headachemigraine.org [place] Migraine Foundation: americanmigrainefoundation.org National Headache Foundation: headaches.org [...] Document Reviewed: 03/19/2020 [employer] Patient Education 2022 [employer]. Follow Up Care 06/28/2023 15:15:45 With:JOAQUÍN RODRIGUEZ FAM Address: When:4 weeks [facility] [place] 11-28-2023 Hospital Discharge instructions Patient Education 01/11/2023 19:37:18 Cervical Sprain, Lqxc-sc-Wxng Cervical Sprain A cervical sprain is also [...] Follow these instructions at home: Medicines Take stbg-srr-kphumgl and prescription medicines only as told by your doctor. Ask your doctor if the medicine prescribed to you: ?Requires you to avoid driving or using heavy machinery. ?Can cause trouble pooping (constipation). You may need to take these actions to prevent or treat trouble pooping: ?Drink enough fluid to keep your pee (urine) pale yellow. ?Take nsfh-wzm-mkrdejl or prescription medicines. ?Eat foods that are [...] provider. Document Revised: 05/10/2022 Document Reviewed: 10/10/2019 [employer] Patient Education 2022 [employer]. Follow Up Care 01/11/2023 15:55:53 With:CROW LYLES DO, FAM Address: When:1 to 2 days Comments:Call today to schedule your follow up [facility]11-25-2023 Hospital Discharge instructions Patient Education 01/08/2023 18:29:49 [...] if you feel dizzy. General instructions Take tcwx-col-fdzegdj and prescription medicines only as told by [...] provider. Document Revised: 12/31/2020 Document Reviewed: 12/31/2020 [employer] Patient Education 2022 [employer]. 01/08/2023 18:29:49 General Headache Without Cause General [...] help with your condition: Managing pain Take nfgg-ynx-yosckzs and prescription medicines only as told by [...] provider. Document Revised: 07/01/2021 Document Reviewed: 07/01/2021 [employer] Patient Education 2022 [employer]. Follow Up Care 01/08/2023 12:35:43 With:Terrell HAN Address: [facility] [address], [address] [place], [facility] Business (1) When:01/11/2023 18:19:03 Comments:Return to the emergency room if your headache recurs, fever, vomiting, vision change or any new symptoms. [facility]11-25-2023 Evaluation + Plan noteExtracted from: Title:ED Note [...] or Brain w/o Contrast Extra SST Tube [facility]11-23-2023 Hospital Discharge instructions Follow Up Care 01/06/2023 14:44:33 With:[employer] Address: [place] [address] [employer] (1) When:01/09/2023 17:03:00 With:XXXX NONE Address: [place] When:Within 3 Day(s) [facility]11-23-2023 Evaluation + Plan noteExtracted from: Title:ED Note [...] Tube Influenza A&B Ag Rapid COVID Antigen ([facility]) [facility]09-03-2023 Hospital Discharge instructions Patient Education 10/17/2022 17:28:51 [...] younger than 2 years. Live in a fpc. Travel on cruise ships. What are the [...] and water are not available, use hand coal screener. Make sure that all people in your household wash their hands well and often. Take hlxv-vuw-luqsbmg and prescription medicines only as told by [...] and water are not available, use hand coal screener. This information is not intended to replace advice given to you by your health care provider. Make sure you discuss any questions you have with your health care provider. Document Revised: 11/30/2021 Document Reviewed: 11/30/2021 [employer] Patient Education 2022 [employer]. Follow Up Care 10/17/2022 13:03:17 With:ROOSEVELT FRANK Address: [facility] [address] [address] [facility] (1) When:10/20/2022 17:25:20 Comments:Call the office of [...] weakness, or any new or worsening symptoms. [facility]09-03-2023 Evaluation + Plan noteExtracted from: Title:ED Note [...] was discharged home. Jagdish Dunn DO, WILFREDO [facility]01-04-2023 Hospital Discharge instructions Patient Education 02/17/2022 21:17:10 [...] if you start to feel better. Take itby-vxm-xamdkkv and prescription medicines only as told by [...] 03/10/2005 Document Revised: 08/03/2018 Document Reviewed: 08/03/2018 [employer] Patient Education 2020 [employer]. 02/17/2022 21:17:10 Nausea and Vomiting, Adult Nausea [...] water added (diluted fruit juice). Eat bland, jepn-vw-ogahir foods in small amounts as you are able. These foods include bananas, applesauce, rice, lean meats, toast, and crackers. Avoid fluids that contain a lot of sugar or caffeine, such as energy drinks, sports drinks, and soda. Avoid alcohol. Avoid spicy or fatty foods. General instructions Take leig-rex-hxticop and prescription medicines only as told by your health care provider. Drink enough fluid to keep your urine pale yellow. Wash your hands often using soap and water. If soap and water are not available, use hand coal screener. Make sure that all people in your [...] eating and drinking to prevent dehydration. Take vulu-jhp-xnkhjis and prescription medicines only as told by [...] 01/31/2006 Document Revised: 05/25/2019 Document Reviewed: 07/11/2018 [employer] Patient Education 2020 [employer]. 02/17/2022 21:17:10 Abdominal Pain, Adult Abdominal Pain, [...] Follow these instructions at home: Medicines Take bzys-ffs-ulzpzdg and prescription medicines only as told by [...] Watch your condition for any changes. Take idvj-mfe-crsudcm and prescription medicines only as told by [...] 11/10/2005 Document Revised: 06/11/2019 Document Reviewed: 06/11/2019 [employer] Patient Education 2020 [employer]. Follow Up Care 02/17/2022 15:51:20 With:Hosea John Address: [address] [place] [address]- When:02/20/2022 21:03:18 Comments:Return to the emergency room if your pain gets worse, vomiting, fever or any new symptoms [facility]01-04-2023 Evaluation + Plan noteExtracted from: Title:ED Note [...] Reflex Addendum by Sandro Ramirez As polina on February 17, 2022 21:20:50 EST The care of the patient was transitioned to ga upon shift change to follow-up with CT [...] count. Will discharge patient home with Cipro Flagiker and Zofran. The patient will follow up with her primary care. She is instructed to return to the emergency room if her pain gets worse, fever, vomiting recurs or any new symptoms. The findings and the care of plan were discussed with patient and her mother and they are both in agreement. Additional diagnosis: Enteritis [facility]09-27-2022 Hospital Discharge instructions Patient Education 11/10/2021 13:29:03 [...] Treatment for this condition includes: Antibiotic medicine. Xqlq-ifl-bbqoncz medicines to treat discomfort. Drinking enough water [...] Follow these instructions at home: Medicines Take gqnp-nwg-hgpfvju and prescription medicines only as told by [...] 11/10/2005 Document Revised: 01/18/2019 Document Reviewed: 08/10/2018 [employer] Patient Education [employer] Follow Up Care 11/10/2021 12:07:08 With:Horacio Link Address: [address], [address] [place] [address]- [facility] (1) When:11/13/2021 13:20:06 [facility]09-27-2022 Evaluation + Plan note Diagnostic Tests Pending * Urine Culture 11/10/21 [facility]08-01-2022 Progress note Author Radha Orona [facility] September 14, 2021 10:31am Note Date/Time September 14, 2021 10: 31am [facility] [address] [place] [address] 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 Progress Note Signed Patient: Sabrina Richmond MR#: [id number] : 1995 Acct:[id number] Age/Sex: 26 / F Adm Date: 2 Loc: Room: 8L8912-4 Type: ADM IN Attending Dr: Presley Timmons [...] and bottle feeding well; no nursing well [place] feeding status: breast and bottle feeding OB [...] % (Auto) 73.9, Lymph % (Auto) 18.5, [place] % (Auto) 6.5, Eos % (Auto) 0.8, Baso % (Auto) 0.3, Neut # (Auto) 9.7 H, Lymph # (Auto) 2.4, [place] # (Auto) 0.9 H, Eos # (Auto) [...] 6 weeks Documented By: Radha Orona DO 09/14/2108 14 Signed By: <Electronically signed by Radha Orona DO> 09/14/21 1031 [facility] Work Phone: 1(844) 652-494407-31-2022 Progress note Author PRESLEY TIMMONS [facility] September 13, 2021 8:54am Note Date/Time September 13, 2021 8:54 am [facility] [address] [place] [address] 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 Progress Note Signed Patient: Sabrina Richmond MR#: [id number] : 1995 Acct:[id number] Age/Sex: 26 / F Adm Date: 2 Loc: Room: [address] [place] [address] Type: ADM IN Attending Dr: Presley Timmons [...] comments: no complaints baby status: doing well [place] feeding status: exclusively breast feeding OB - [...] signed by MD PRESLEY TIMMONS> 09/13/21 0854 [facility] Work Phone: 1(515) 398-283107-30-2022 [facility] Evaluation + Plan note Diagnostic Tests Pending * Group B Streptococcus colonization by PCR 08/12/21 [facility]06-03-2022 Hospital Discharge instructions Patient Education 07/17/2021 11:06:59 [...] exercise. Managing pain, stiffness, and swelling Take gdmg-iip-fmbnbok and prescription medicines only as told by [...] 01/31/2006 Document Revised: 01/13/2018 Document Reviewed: 03/02/2017 [employer] Patient Education 2020 [employer]. Follow Up Care 07/17/2021 09:19:46 With:Presley Timmons MD Address: When:07/20/2021 [facility]04-30-2022 Evaluation + Plan note Diagnostic Tests Pending * Urine Culture 06/13/21 [facility]04-30-2022 Hospital Discharge instructions Follow Up Care 06/13/2021 09:58:45 With:Presley Timmons Address:Unknown When:06/24/2021 Comments:Call for any problems.Call for fever > 100.5 FCall for severe abdominal painCall physician for heavy vaginal bleedinCall physician if symptoms worsenReturn for decreased movementReturn if ruptured membranes or vaginalKeep next scheduled appt [facility]04-21-2022 Hospital Discharge instructions Patient Education 06/04/2021 16:07:19 [...] water added (diluted fruit juice). Eat bland, crdv-bo-flhbnk foods in small amounts as you are able. These foods include bananas, applesauce, rice, lean meats, toast, and crackers. Avoid fluids that contain a lot of sugar or caffeine, such as energy drinks, sports drinks, and soda. Avoid alcohol. Avoid spicy or fatty foods. General instructions Take cwou-xhh-iftxbtm and prescription medicines only as told by your health care provider. Drink enough fluid to keep your urine pale yellow. Wash your hands often using soap and water. If soap and water are not available, use hand coal screener. Make sure that all people in your [...] eating and drinking to prevent dehydration. Take thdy-iju-jrbinac and prescription medicines only as told by [...] 01/31/2006 Document Revised: 05/25/2019 Document Reviewed: 07/11/2018 [employer] Patient Education 2020 [employer]. Follow Up Care 06/04/2021 14:33:50 With:Ann-Marie Nick Address: [address] [place] [address] [phone] Business (1) When:06/07/2021 16:06:44 [facility]04-21-2022 Evaluation + Plan noteExtracted from: Title:ED Note [...] q6hr, # 14 tab(s), Refills(s) 0, Pharmacy: [facility]/pharmacy #[id number], 165, cm, 06/04/21 14:38:00 EDT, Height/Length Dosing, 123, kg, 06/04/21 14:38:00 EDT, Weight Dosing Sodium Chloride 0.9% intravenous solution, 1,000 mL, Soln-IV, IV, Once, Stop date 06/04/21 14:53:00 EDT, STAT, Start date 06/04/21 14:53:00 EDT, mL/hr, Infuse over 61, minute(s) Automated Diff CBC w/ Auto Diff Comprehensive Metabolic Panel eGFR Extra Blue Tube Lipase Level UA With Cult Reflex [facility]03-30-2022 Hospital Discharge instructions Patient Education 05/13/2021 13:28:47 [...] 10/28/2004 Document Revised: 02/17/2017 Document Reviewed: 05/01/2016 [employer] Patient Education 2020 [employer]. 05/13/2021 13:28:44 Rapid Strep Test Rapid Strep [...] 03/10/2005 Document Revised: 05/25/2019 Document Reviewed: 10/04/2017 [employer] Patient Education 2019 [employer] Follow Up Care 05/13/2021 12:18:07 With:Ann-Marie Romero NP, FAM Address: [address] [place] [address] [address] [place] [address] [phone] When: Unknown [facility] Consult note* Clinical Note Date No Information [facility] Work Phone: Discharge summary* Clinical Note Date No Information [facility] Work Phone: Evaluation + Plan note No data available for this section [facility] Evaluation + Plan note Future Appointments Appointment Date:01/14/2023 01:40:00 PM Scheduled Provider:Ricarda Anthony Location:[facility] Appointment Type:FM [facility] Future Appointments Appointment Date:07/25/2023 08:40:00 AM Scheduled Provider:JOAQUÍN RODRIGUEZ Location:[facility] Appointment Type: Open [facility] Evaluation + Plan note Future Appointments Appointment Date:10/12/2023 08:00:00 AM Scheduled Provider: [facility] Appointment Type:MRI Brain () Appointment Date:11/07/2023 02:00:00 PM Scheduled Provider:JOAQUÍN RODRIGUEZ Location:[facility] Appointment Type: [facility] Scheduled Tests Radiology* MRI Brain w/ + w/o Contrast 10/12/23 [facility] Evaluation + Plan note Future Appointments Appointment Date:11/07/2023 02:00:00 PM Scheduled Provider:JOAQUÍN RODRIGUEZ Location:[facility] Appointment Type: Open [facility] Evaluation note* Diagnosis Onset Date Resolution Status 40 weeks gestation of acute Status post vaginal delivery [facility] Work Phone: Evaluation note* Diagnosis Missed [...] (HHS-HCC) Encounter for follow-up ultrasound of anatomy ([facility]) documented [facility] this encounter [facility] Type Assessment Date No Information [facility] Work Phone: Evaluation note* Diagnosis Size of fetus inconsistent with dates in second trimester (HHS-HCC)- Primary 28 weeks gestation of ([facility]) documented in this encounter [facility]* Diagnosis Third trimester (HHS-HCC) state, incidental 31 weeks gestation of (HHS-HCC) Hypertension affecting in third trimester (HHS-HCC) documented [facility] this encounter [facility]* Diagnosis Third trimester (HHS-HCC) state, incidental Diet controlled gestational diabetes mellitus (GDM), antepartum ([facility]) Gestational diabetes mellitus (GDM), antepartum, gestational diabetes method of control unspecified ([facility]) documented in this encounter [facility]* Diagnosis 32 weeks gestation of (HHS-HCC) Third trimester (HHS-HCC) state, incidental Hypertension affecting in third trimester (HHS-HCC) Diet controlled gestational diabetes mellitus (GDM), antepartum (HHS-HCC) Gestational diabetes mellitus (GDM), antepartum, gestational diabetes method of control unspecified ([facility]) Elevated glucose tolerance test Impaired glucose tolerance test induced hypertension, antepartum ([facility]) Transient hypertension of , antepartum documented in this encounter [facility]* Diagnosis Third trimester (HHS-HCC) state, incidental 33 weeks gestation of ([facility]) documented in this encounter [facility] Healthcare[facility] and physical note* Clinical Note Date No Information [facility] Work Phone: History of Past illness Narrative* Condition Effective Dates (start - stop) O utcome No Information [facility] Work Phone: Hospital Discharge instructions No data available for this section [facility] Date Instruction Additional Infor mation No Information [facility] Work Phone: InstructionsNot on filedocumented in this encounter [facility]Not on filedocumented in this encounter [facility] No data available for this section [facility]* Clinical Note Date No Information [facility] Work Phone: Reason for referral (narrative) Referred by: JOAQUÍN RODRIGUEZ [facility] [place] Reason for referral (narrative)* Reason For Referral No Information [facility] Work Phone: Review of systems Narrative - Reported* System Pos/Neg Findings No Information [facility] Work Phone: Summary Purpose Family History Family [...] DATE CREATED AUTHOR AUTHOR'S ORGANIZ ATION 02/24/2022 [facility] DATE CREATED AUTHOR AUTHOR'S ORGANIZ ATION 04/20/2024 [facility] DATE CREATED AUTHOR AUTHOR'S ORGANIZ ATION 04/30/2024 [facility] DATE CREATED AUTHOR AUTHOR'S ORGANIZ ATION 08/26/2024 [facility] DATE CREATED AUTHOR AUTHOR'S ORGANIZ ATION 10/19/2024 [facility] d[facility] Specialists EPIC Care Team (unrecognized sect [...] BE BASED ON THE PRIMARY CLINICAL RECORDS. [employer] [facility]. provides no warranty or guarantee of the accuracy or completeness of information in this document.
== END 2024-10-24 15:10 | disposition home or self-care (01) ==
LOC: US 14:12 → FBC 14:14
PROVIDERS: Visit Provider Obstetrics & Gynecology
DX: O16.3 Unspecified maternal hypertension, third trimester (principal); O24.410 Gestational diabetes mellitus in pregnancy, diet controlled; Z3A.31 31 weeks gestation of pregnancy; O13.3 Gestational [pregnancy-induced] hypertension without significant proteinuria, third trimester
CPT/HCPCS: 76816; 76818

== ENCOUNTER 2024-10-27 12:53 | Outpatient (OUT) | payer BC, OTHER, SELFPAY ==
--- OUTSIDE RECORDS SUMMARY | 2024-08-21 05:03 | XMS_ITS | Continuity of Care Document ---
Author Organization [facility] Address [address] [place] [address] Phone Care Team Providers Care Day Treatment Clinician/Art Therapist Name Role Phone Bishnu Virk DDS Unavailable [...] Procedure Date Nutrit Couns For Control Of [place] Dis Aug Extract; Erupted Th/exposted Rt 025 Oral Hygiene Instruction Panoramic Film Bitewings-three Films Oral Hygiene Instruction Comp Oral Eval New/estab Patient 2024 Intraoral-periapical 1st Film [id number]-[id number]-[id number] Additional Jul Bitewig-single Film Oral Hygiene Instruction Limited Oral Eval Extract; Erupted Th/exposted Rt 025 Advance Directives Directive Yes / No Effective Date File Name No Information Encounters Encounter Description Practice Location Reason(s) For Visit Diagnoses Date Provider Providers Copied on Encounter [facility], [address] [place], [place], [id number], [place] tel:[phone] [facility] Dental Clinic ext (chief complaint) Encounter for screening for dental disorders Moose JAIMES Yixue. [address] [place] [address], [address], [place]. tel:[phone] [facility], [address] [place], [place], [id number], [place] tel:[phone] Dental Clinic DL (chief complaint) Encounter for screening for dental disorders Moose JAIMES Yixjono. [address] [place], [address], . tel:[phone] [facility], [address] [place], [place], [id number], [place] tel:[phone] [facility] Dental Clinic Dental ER (chief complaint) Encounter for screening for dental disorders Moose TREJOS Yixjono. [address] [place], [address], [place]. tel:[phone] Family History Family Member Type Diagnosis Age At Onset No Information Payers Payer name Insurance type Covered green party ID Authoriza tion(s) D [employer] [facility] [id number] D Medicaid [facility] [id number] Social History Type Description Quantity Date Captured [...]
--- OUTSIDE RECORDS SUMMARY | 2024-10-17 13:30 | XMS_ITS | Encounter Summary ---
Author Organization [facility] Address [address] [place] [address] Care Team Providers Care Science Teacher Name Role Phone Unavailable Primary Care Provider Unavailabl e Reason for Visit * Reason Comments Routine Visit Encounter Details Date Type Department Care Team (Late Contact Info) Description 10/17/2024 1:30 PM EDT Routine [facility] [place] [address] [place] [phone] Zack Ortiz DO [address] [place] [address] 32 weeks gestation of (HHS-HCC); Third trimester [...] nursing note reviewed. Exam conducted with a librarian assistant present. Vitals: Estimated body mass index is 49.33 kg/m?? as calculated from the following: Height as of 10/28/21: 5' 4 . Weight as of this encounter: 287 lb 6.4 oz. BP: 130/82 No LMP recorded. Patient is . ASSESSMENT & PLAN ICD-10-CM 1. 32 weeks gestation of ([facility]) Z3A.32 POCT urinalysis dipstick manually resulted 2. Third trimester ([facility]) Z34.93 POCT urinalysis dipstick manually resulted 3. Hypertension affecting in third trimester ([facility]) O16.3 US OB follow up transabdominal approach 4. Diet controlled gestational diabetes mellitus (GDM), antepartum ([facility]) O24.410 US OB follow up transabdominal approach 5. Gestational diabetes mellitus (GDM), antepartum, gestational diabetes method of control unspecified ([facility]) O24.419 Lancets Ultra Thin misc Alcohol [...] EDT Routine [facility] Armando [facility] [address] [place] [phone] Zack Ortiz DO [address] [place] [address] Scheduled Orders Name Type Priority Associated Diagnoses Orde r Schedule Creatinine Lab Routine induced hypertension, antepartum (HHS-HCC) Expected: 10/17/2024 (Approximate), Expires: 10/17/2025 CBC and differential Lab Routine induced hypertension, antepartum ([facility]HS-HCC) Expected: 10/17/2024 (Approximate), Expires: 10/17/2025 ALT Lab Routine induced hypertension, antepartum (HHS-HCC) Expected: 10/17/2024 (Approximate), Expires: 10/17/2025 AST Lab Routine induced hypertension, antepartum ([facility]) Expected: 10/17/2024 (Approximate), Expires: 10/17/2025 BUN Lab Routine induced hypertension, antepartum ([facility]HS-HCC) Expected: 10/17/2024, Expires: 10/17/2025 OB follow up transabdominal approach Imaging Routine Hypertension affecting in third trimester ([facility]) Diet controlled gestational diabetes mellitus (GDM), antepartum ([facility]) induced hypertension, antepartum (HHS-HCC) Expected: 10/17/2024, Expires: 02/16/2025 documented as of this encounter Procedures Procedure Name Priority Date/Time Associated Diagnosis Comments POCT URINALYSIS DIPSTICK Routine 10/17/2024 1:37 PM EDT 32 weeks gestation of ([facility]) Third trimester ([facility]) documented in this encounter Results * [...] Visit Diagnoses Diagnosis 32 weeks gestation of ([facility]) Third trimester ([facility]) state, incidental Hypertension affecting in third trimester ([facility]) Diet controlled gestational diabetes mellitus (GDM), antepartum ([facility]) Gestational diabetes mellitus (GDM), antepartum, gestational diabetes method of control unspecified ([facility]) Elevated glucose tolerance test Impaired glucose tolerance test induced hypertension, antepartum ([facility]) Transient hypertension of , antepartum documented in this encounter
--- OUTSIDE RECORDS SUMMARY | 2024-10-24 13:20 | XMS_ITS | Encounter Summary ---
Author Organization [facility] Address [address] [place] [address] Care Team Providers Care Manager Of Hospital Name Role Phone Unavailable Primary Care Provider Unavailabl e Reason for Visit * Reason Comments Routine Visit Encounter Details Date Type Department Care Team ([facility] Contact Info) Description 10/24/2024 1:20 PM EDT Routine GREG MANZANO [address] [address] [place], [phone] Gwen Mccormick PA [address] [place], [facility]11 Third trimester ([facility] 33 weeks gestation of ([facility]) Social History Tobacco Use Types [...] documented in this encounter Progress Notes * KERI Velasquez - 10/24/2024 1:20 PM EDT Reason for Appointment: Patient ID: [...] reviewed. Vitals: Estimated body mass index is 49.95 kg/m?? as calculated from the following: Height as of 10/28/21: 5' 4 . Weight as of this encounter: 291 lb. BP: (!) 142/92 No LMP recorded. Patient is . ASSESSMENT & PLAN ICD-10-CM 1. Third trimester ([facility]) Z34.93 POCT urinalysis dipstick manually resulted 2. 33 weeks gestation of ([facility]) Z3A.33 Return OB: Patient presents today for a routine obstetrics appointment. Patient is currently 33w6d . Patient states she is doing well but has complaints of being tired due to current . Patient has verbalizes frequent movement. labor precautions was discussed/given and patient was instructed to perform kick counts three times a day. Patient noncompliant with following MFM, states does not want to go back there. Patient encouraged to take BP medications on time. BP today 142/92 Orders Placed This Encounter Procedures POCT urinalysis dipstick manually resulted Follow Up: Patient is to return to office in 1 week for routine OB appointment. Documented by KERI Velasquez on behalf of: KERI Velasquez documented in this encounter Plan of Treatment Upcoming Encounters Date Type Department Care Team (Late st Contact Info) Description 10/31/2024 1:40 PM EDT Routine [facility] Luis Armando OBGYN [address] [place] [address] [place] [address] Zack Ortiz, DO [address] [place] [address] [place] [address] documented as of this encounter Procedures Procedure Name Priority Date/Time Associated Diagnosis Comments POCT URINALYSIS DIPSTICK Routine 10/24/2024 1:50 PM EDT Third trimester ([facility]) documented in this encounter Results * [...] this encounter Visit Diagnoses Diagnosis Third trimester ([facility]) state, incidental 33 weeks gestation of ([facility]) documented in this encounter
--- OUTSIDE RECORDS SUMMARY | 2024-10-27 12:55 | XMS_ITS | Encounter Summary ---
Author Organization [facility] Address [address] [place] [address] Care Team Providers Care Motorboat Mechanic Inboard/Outboard Name Role Phone Unavailable Primary Care Provider Unavailabl e Encounter Details Date Type Department Care Team (Late st Contact Info) Description 10/24/2024 Clinisync Result Encounter [facility] External Department Unsolicited Lucía Ortiz DO [address], [facility] Social History Tobacco Use Types Packs/Day Years [...] [facility] Luis Armando [facility]BG[facility] [address] [place] [phone] Lucía Ortiz DO [address] [address] documented as of this encounter Procedures Procedure Name Priority Date/Time Associated Diagnosis Comments US OB BPP W NON-STRESS 10/24/2024 3:49 PM EDT documented in this encounter Results * US OB BPP W NON-STRESS (10/24/2024 3:49 PM EDT) Anatomical Region Laterality Modality Other 10/24/2024 3:49 PM EDT Narrative 10/24/2024 3:51 [place] [address] Ultrasound Report Signed Patient: DORIAN RICHMOND MR#: [id number] : 1995 Acct:[id number] Age/Sex: 29 / F ADM Date: 10/24/24 Loc: US Attending Dr: Lucía Ortiz D.O. Ordering Physician: Lucía Ortiz D.O. Date of Service: 10/24/24 Procedure(s): US OB BPP w non-stress Accession Number(s): [id number] cc: Lucía Ortiz D.O.; Physician,Non-Staff M.DNathalia The [place] [id number] Patient Name: DORIAN RICHMOND MRN: [id number] date: 1995 Sex: F Assigned Patient Location: [facility] Current Patient Location: Accession/Order Number: [id number] Exam Date: 10/24/2024 14:16 Report Date: 10/24/2024 15:49 At the request of: LUCÍA ORTIZ DO Procedure: US OB BPP w non-stress Biophysical profile. Reason for exam: Gestational diabetes COMPARISON: 10/03/2024 TECHNIQUE: Transabdominal imaging of the gravid uterus was obtained. FINDINGS: The inverted block operator reports a BPP of 8 out of 8. SCOOTER is normal at 10.0 cm. heart rate 131 bpm. US/US OB BPP w non-stress IMPRESSION: BPP 8 out of 8. Impression dictated by: Kahlil Voss Jr., D.O. 10/24/2024 3:49 PM Dictation Location: [place] [address] Electronically authenticated by: [id number] Y Date: 10/24/2024 15:49 Dictated By: Kahlil Voss M.D. Signed By: 10/24/24 1551 DD/ 1549 TD/TT: Oxyacetylene Torch Operator: Procedure Note Radiology, Radiologist, - 10/24/2024 [place] [address] Ultrasound Report Signed Patient: DORIAN RICHMOND JMR#: [id number] : 1995Acct:[id number] Age/Sex: 29 / FADM Date: 10/24/24 Loc: US Attending Dr: Lucía Ortiz D.O. Ordering Physician: Lucía Ortiz D.O. Date of Service: 10/24/24 Procedure(s): US OB BPP w non-stress Accession Number(s): [id number] cc: Lucía Ortiz D.O.; Physician,Non-Staff [place] The [place] [address] Patient Name: DORIAN RICHMOND MRN: [id number] date: 1995 Sex: F Assigned Patient Location: [facility] Current Patient Location: Accession/Order Number: [id number] Exam Date: 10/24/2024 14:16 Report Date: 10/24/2024 15:49 At the request of: LUCÍA ORTIZ DO Procedure: US OB BPP w non-stress Biophysical profile. Reason for exam: Gestational diabetes COMPARISON: 10/03/2024 TECHNIQUE: Transabdominal imaging of the gravid uterus was obtained. FINDINGS: The inverted block operator reports a BPP of 8 out of 8. SCOOTER is normal at10.0 cm. heart rate 131 bpm. US/US OB BPP w non-stress IMPRESSION: BPP 8 out of 8. Impression dictated by: Kahlil Voss Jr., D.O. 10/24/2024 3:49 PM Dictation Location: [place] [address] Electronically authenticated by: [id number] Y Date: 5:49 Dictated By: Kahlil Voss M.D. Signed By:10/24/24 1551 DD/ 1549 TD/TT: Oxyacetylene Torch Operator: us Lucía Ortiz DO [facility] Final Result documented in this encounter Visit Diagnoses Not on filedocumented in this encounter
--- OUTSIDE RECORDS SUMMARY | 2024-10-27 12:55 | XMS_ITS | Encounter Summary ---
Author Organization [facility] Address [address] [place] [address] Care Team Providers Care Bruise Trimmer Name Role Phone Unavailable Primary Care Provider Unavailabl e Encounter Details Date Type Department Care Team (Late st Contact Info) Description 10/23/2024 Telephone [facility] Luis Armando [facility] [address] [place] [address] [place] [phone] Nayeli Randle LPN Social History Tobacco Use [...] 10/23/24 @ 1:15pm Spoke with Tati at [facility] option #3 in regards to patient [...] [facility] Armando [facility] [address] [place] [phone] Zack Ortiz DO [address] [address] documented as of this encounter Visit Diagnoses Not on filedocumented in this encounter
--- OUTSIDE RECORDS SUMMARY | 2024-10-27 12:55 | XMS_ITS | Encounter Summary ---
Author Organization [facility] Address [address] [place] [address] Care Team Providers Care Staffing Associate Name Role Phone Unavailable Primary Care Provider Unavailabl e Encounter Details Date Type Department Care Team (Late Contact Info) Description 10/24/2024 Bamboo flowsheet GREG MANZANO [address] [facility] [place] [address] Gwen Mccormick PA [address] [place], [facility]11 Social History Tobacco Use Types Packs/Day [...] Department Care Team (Late Contact Info) Description 10/31/2024 1:40 PM EDT Routine NOMAldo MANZANO [address] [facility] [place] [address] Zack Ortiz DO [address], [place] [address] documented as of this encounter Visit Diagnoses Not on filedocumented in this encounter
--- OUTSIDE RECORDS SUMMARY | 2024-10-27 12:55 | XMS_ITS | Encounter Summary ---
Author Organization [facility] Address [address] [place] [address] Care Team Providers Care Education Associate Name Role Phone Unavailable Primary Care Provider Unavailabl e Encounter Details Date Type Department Care Team (Late st Contact Info) Description 10/20/2024 Clinisync Result Encounter [facility]S External Department Unsolicited Zack Ortiz DO [address], [facility]11 Social History Tobacco Use Types Packs/Day Years [...] [facility] Luis Armando OBGYTyra [address] [place] [phone] Zack Ortiz DO [address] [place] [address] documented as of this encounter Procedures Procedure [...] DO [facility] Final Result Performing Organization Address [facility]/ZIP Co de Phone Number [facility] * [facility] CREATININE (10/20/2024 12:46 PM EDT) CREATININE 0.83 0.55 - 1.02 mg/dL [facility] EGFR-AF BERMUDIAN >60 >=60 mL/min/1.7 3m 2 [facility] EGFR-NON AF BERMUDIAN >60 >=60 mL/min/1.7 3m 2 [facility] 10/20/2024 12:4 6 PM EDT 10/20/2024 12:47 PM EDT Narrative [facility] - 10/20/2024 1:16 PM EDT us Zack Angel DO [facility] Final Result [facility] * ALL BUN (10/20/2024 12:46 PM [...] DO [facility] Final Result Performing Organization Address City/State/[facility] Co de Phone Number [facility] TB documented in this encounter Visit Diagnoses Not on filedocumented in this encounter
--- OUTSIDE RECORDS SUMMARY | 2024-10-27 12:56 | XMS_ITS | Encounter Summary ---
Author Organization [facility] Address [address] [place] [address] Care Team Providers Care Alley Cleaner Name Role Phone Unavailable Primary Care Provider Unavailabl e Encounter Details Date Type Department Care Team (Late st Contact Info) Description 10/24/2024 Clinisync Result Encounter [facility] External Department Unsolicited Lucía Ortiz DO [address], [facility]11 Social History Tobacco Use Types Packs/Day Years [...] [facility] Luis Armando [facility]BG[facility] [address] [place] [phone] Lucía Ortiz DO [address] [address] documented as of this encounter Procedures Procedure Name Priority Date/Time Associated Diagnosis Comments US OB GROWTH 10/24/2024 3:57 PM EDT documented in this encounter Results * US OB GROWTH (10/24/2024 3:57 PM EDT) Anatomical Region Laterality Modality Other 10/24/2024 3:57 PM EDT Narrative 10/24/2024 3:59 [place] [address] Ultrasound Report Signed Patient: DORIAN RICHMOND MR#: [id number] : 1995 Acct:[id number] Age/Sex: 29 / F ADM Date: 10/24/24 Loc: US Attending Dr: Lucía Ortiz D.O. Ordering Physician: Lucía Ortiz D.O. Date of Service: 10/24/24 Procedure(s): US OB growth Accession Number(s): [id number] cc: Lucía Ortiz D.O.; Physician,Non-Staff M.DNathalia The [place] [id number] Patient Name: DORIAN RICHMOND MRN: [id number] date: 1995 Sex: F Assigned Patient Location: [facility] Current Patient Location: Accession/Order Number: [id number] Exam Date: 10/24/2024 14:16 Report Date: 10/24/2024 15:57 At the request of: LUCÍA ORTIZ DO Procedure: US OB growth Growth ultrasound. Reason for exam: Gestational diabetes mellitus. COMPARISON: None. TECHNIQUE: Transabdominal imaging of the gravid uterus was obtained. FINDINGS: Single live intrauterine 31 weeks 0 days by anatomic measurements. Please note that head circumference and abdominal circumference are less than 3rd percentile. Estimated weight is 1739 g also less than 3rd percentile. heart rate is noted at 131 bpm. SCOOTER is 10.0 cm. presentation is breech at time of scanning. US/US OB growth IMPRESSION: Single live intrauterine 31 weeks 0 days by anatomic measurements. Head circumference, abdominal circumference and weight are all less than 3rd percentile. Correlation with correct dating is recommended. Symmetrical IUGR cannot BE excluded. Impression dictated by: Kahlil Voss Jr., D.O. 10/24/2024 3:57 PM Dictation Location: [place] [address] Electronically authenticated by: [id number] Y Date: 10/24/2024 15:57 Dictated By: Kahlil Voss M.D. Signed By: 10/24/24 1559 DD/ 1557 TD/TT: Lab Intern: Procedure Note Radiology, Radiologist, MD - 10/24/2024 [place] [address] Ultrasound Report Signed Patient: DORIAN RICHMOND JMR#: [id number] : 1995Acct:[id number] Age/Sex: 29 / FADM Date: 10/24/24 Loc: US Attending Dr: Lucía Ortiz D.O. Ordering Physician: Lucía Ortiz D.O. Date of Service: 10/24/24 Procedure(s): US OB growth Accession Number(s): [id number] cc: Lucía Ortiz D.O.; Physician,Non-Staff [place] [facility] [place] [id number] Patient Name: DORIAN RICHMOND MRN: [id number] date: 1995 Sex: F Assigned Patient Location: [facility] Current Patient Location: Accession/Order Number: [id number] Exam Date: 10/24/2024 14:16 Report Date: 10/24/2024 15:57 At the request of: LUCÍA ORTIZ DO Procedure: US OB growth Growth ultrasound. Reason for exam: Gestational diabetes mellitus. COMPARISON: None. TECHNIQUE: Transabdominal imaging of the gravid uterus was obtained. FINDINGS: Single live intrauterine 31 weeks 0 days by anatomic measurements. Please note that head circumference and abdominalcircumference are less than 3rd percentile. Estimated weight is 1739 g also lessthan 3rd percentile. heart rate is noted at 131 bpm. SCOOTER is 10.0 cm. presentation is breech at time of scanning. US/US OB growth IMPRESSION: Single live intrauterine 31 weeks 0 days by anatomic measurements. Head circumference, abdominal circumference and fetalweight are all less than 3rd percentile. Correlation with correct dating is recommended. Symmetrical IUGR cannot BE excluded. Impression dictated by: Kahlil Voss Jr., D.O. 10/24/2024 3:57 PM Dictation Location: [employer] Electronically authenticated by: [id number] Y Date: 5:57 Dictated By: Kahlil Voss M.D. Signed By:10/24/24 1559 DD/ 1557 TD/TT: Lab Intern: us Lucía Angel DO [facility] Final Result documented in this encounter Visit Diagnoses Not on filedocumented in this encounter
--- OUTSIDE RECORDS SUMMARY | 2024-10-27 12:56 | XMS_ITS | Encounter Summary ---
Author Organization [facility] Address [address] [place] [address] Care Team Providers Care Clinical Programmer Name Role Phone Unavailable Primary Care Provider Unavailabl e Encounter Details Date Type Department Care Team (Late Contact Info) Description 05/31/2024 Abstract GREG MANZANO [facility] [place] [address] Zack Ortiz DO [facility] [address], [facility] AT [...] 10/31/2024 1:40 PM EDT Routine GREG MANZANO [facility] [place] [address] Zack Ortiz DO [address] [address] documented as of this encounter Visit Diagnoses Not on filedocumented in this encounter
--- OUTSIDE RECORDS SUMMARY | 2024-10-27 12:56 | XMS_ITS | Patient Health Record ---
Author Organization [facility] Address [address] [facility] [address] Care Team Providers Care Doctor Of Audiology Name Role Phone Maliha Matos Primary Care Provider [phone] Reason For Referral No Information Plan Of Treatment No Information Insurance Providers Payer Name Payer Address Payer Phone Subscriber Number Group Number Insured Name Patient Relationship to Insured Coverage Start Date Coverage End Date ANTHEM Primary [address] [place] [phone] [id number] JOSÉ MIGUEL KOLB Spouse - patient is the spouse of the insured 3
--- OUTSIDE RECORDS SUMMARY | 2024-10-27 12:56 | XMS_ITS | Encounter Summary ---
Author Organization [facility] Address [address] [place] [address] Care Team Providers Care Desktop Support Specialist Name Role Phone Unavailable Primary Care Provider Unavailabl e Encounter Details Date Type Department Care Team (Late Contact Info) Description 08/28/2024 Orders Only [facility] Luis Armando MANZANO [address] [place] [id number] Berta Yoder [place] [address] [place] [address] Social History Tobacco Use Types Packs/Day Years [...] Routine [facility] Luis Armando MANZANO [address] [place] [address] Zack Ortiz DO [address] [place], [place] [id number] documented as of this encounter Procedures Procedure [...]
--- OUTSIDE RECORDS SUMMARY | 2024-10-27 12:56 | XMS_ITS | Clinical Summary ---
Author Organization [facility] Address [id number] [address] [place] [address] Care Team Providers Care Laborer Sawmill Name Role Phone Unavailable Primary Care Provider [...] Team Description 10/22/2024 Telephone Maternal- Medicine at [facility] [address] [place] [address] Meka Younger LPN 10/18/2024 Documentation Maternal- Medicine at [facility] [address] [place] [address] Krista Cruz, RN 10/11/2024 Abstract Maternal- Medicine at [facility] [address] [place] [address] External, Scanning Provider 10/04/2024 2:31 PM EDT - 10/04/2024 11:59 PM EDT Hospital Encounter [facility] - [facility] Imaging [address] [place] [address] Discharge Disposition: Home 10/04/2024 12:23 PM EDT - 10/05/2024 3:01 PM EDT Hospital Encounter [facility] - GEN 3 Antepartum [address] [place] [phone] Binh Yung MD Discharge Disposition: Left Against [...] RATIO Routine 10/04/2024 3 :40 PM EDT [facility] Routine 10/04/2024 3:20 [...] - 99 mg/dL 10/05/2024 12:00 PM EDT [facility] arterial/capilla ry 10/05/2024 11:55 AM EDT 10/05/2024 12:00 PM EDT us Binh Yung MD POINT OF CARE TEST ORDERABLES Final Result [facility] [address] [place] [address], [place] * LDH (10/05/2024 6:24 AM EDT) Only the most recent of3 resultswithin the time period is included. Pathologist [facility] LDH 138 100 - 235 U/L 10/05/2024 7:33 AM EDT [facility] Blood Venous blood / Unknown Venipuncture / Unknown 10/05/2024 6:24 AM EDT 10/05/2024 7:02 AM EDT us Kay Levi MD LAB BLOOD ORDERABLES Final Res ult [facility] [address] [place] [address], [place] [phone] * (ABNORMAL) CBC without diff (10/05/2024 6:24 AM EDT) Only the most recent of3 resultswithin the time period is included. WBC 14.8(H) 4 - 11 x10E9/L 10/05/2024 7:13 AM EDT [facility] RBC Count 4.69 3.8 - 5.2 X10E12/L 10/05/2024 7:13 AM EDT [facility] Hemoglobin 12.8 11.7 - 15.5 g/dL 10/05/2024 7:13 AM EDT [facility] Hematocrit 37.5 35 - 47 % 10/05/2024 7:13 AM EDT [facility] MCV 80 80 - 100 fL 10/05/2024 7:13 AM EDT [facility] MCH 27.2 27 - 34 pg 10/05/2024 7:13 AM EDT [facility] MCHC 34.0 32 - 36 g/dL 10/05/2024 7:13 AM EDT [facility] RDW 15.0 11.5 - 15 % 10/05/2024 7:13 AM EDT [facility] Platelet Count 276 150 - 450 X10E9/L 10/05/2024 7:13 AM EDT [facility] MPV 8.0 7 - 12 fL 10/05/2024 7:13 AM EDT [facility] Blood Venous blood / Unknown Venipuncture / Unknown 10/05/2024 6:24 AM EDT 10/05/2024 7:02 AM EDT us Kay Levi MD LAB BLOOD ORDERABLES Final Res ult Performing Organization Address City/[facility]/ZIP Co de Phone Number [facility] [address] [place] [address], [place] [phone] * Uric acid (10/05/2024 6:24 AM EDT) Only the most recent of3 resultswithin the time period is included. URIC ACID 6.4 2.6 - 7.2 mg/dL 10/05/2024 7:33 AM EDT [facility] Blood Venous blood / Unknown Venipuncture / Unknown 10/05/2024 6:24 AM EDT 10/05/2024 7:02 AM EDT us Kay Levi MD LAB BLOOD ORDERABLES Final Res ult [facility] [address] [place] [address], [place] [phone] * (ABNORMAL) Comprehensive metabolic panel (10/05/2024 6:24 AM EDT) Only the most recent of2 resultswithin the time period is included. SODIUM 135 134 - 146 mmol/L 10/05/2024 7:33 AM [facility] POTASSIUM 4.0 3.5 - 5.0 mmol/L 10/05/2024 7:33 AM [facility] CHLORIDE 105 98 - 109 mmol/L 10/05/2024 7:33 AM [facility] CARBON DIOXIDE 20(L) 22 - 32 mmol/L 10/05/2024 7:33 AM [facility] ANION GAP 10 5 - 15 mmol/L 10/05/2024 7:33 AM [facility] BLOOD UREA NITROGEN 8 5 - 23 mg/dL 10/05/2024 7:33 AM [facility] CREATININE 0.64 0.40 - 1.00 mg/dL 10/05/2024 7:33 AM [facility] Comment:METHOD TRACEABLE TO IDSD STANDARD GLUCOSE 111(H) 65 - 99 mg/dL 10/05/2024 7:33 AM [facility] CALCIUM 7.8(L) 8.5 - 10.5 mg/dL 10/05/2024 7:33 AM [facility] TOTAL PROTEIN 6.7 6.0 - 8.0 g/dL 10/05/2024 7:33 AM [facility] ALBUMIN 3.4 3.2 - 5.3 g/dL 10/05/2024 7:33 AM [facility] ALKALINE PHOSPHATASE 114 39 - 130 U/L 10/05/2024 7:33 AM [facility] AST 8 <=41 U/L 10/05/2024 7:33 AM [facility] ALT 5 <=31 U/L 10/05/2024 7:33 AM [facility] BILIRUBIN,TOTAL 0.3 0.3 - 1.2 mg/dL 10/05/2024 7:33 AM [facility] EGFR Non-Race Dependent >90 >=60 ml/min/1.7 3sq.m 10/05/2024 7:33 AM EDT [facility] Comment: Reported eGFR is based on the CKD-EPI 2020 equation that does not use a race coefficient. EGFR not calculated due to patient's gender not being defined. Blood Venous blood / Unknown Venipuncture / Unknown 10/05/2024 6:24 AM EDT 10/05/2024 7:02 AM EDT Kay Levi MD LAB BLOOD ORDERABLES Final Res ult Performing Organization Address City/[facility]/ZIP Co de Phone Number [facility] [address] [place] [address], * Strep B screen (10/04/2024 8:55 PM EDT) CULTURE RESULTS POSITIVE FOR GROUP B STREPTOCOCCUS BY NUCLEIC ACID AMPLIFICATION 10/06/2024 12:59 AM EDT [facility] Swab (Vagina/Rectum) 10/04/2024 8:55 PM EDT 10/04/2024 9:15 PM EDT Narrative [facility] - 10/06/2024 12:59 AM EDT Group B streptococci remain universally susceptible to penicillin, ampicillin, and cefazolin. Resistance to clindamycin can occur. Please contact laboratory within 48 hours if clindamycin susceptibility testing is needed. Evon Clement DO MICROBIOLOGY - GENERAL ORDER SONIA Final Result Performing Organization Address City/[facility]/ZIP Co de Phone Number [facility] [address] [place] [address], * ABO Rh Repeat (10/04/2024 4:48 PM EDT) Only the most recent of2 resultswithin the time period is included. ABO A 10/04/2024 7:34 PM EDT [facility] RH Positive 10/04/2024 7:34 PM EDT [facility] Blood Venous blood / Unknown Venipuncture / Unknown 10/04/2024 4:48 PM EDT 10/04/2024 6:38 PM EDT us Binh Yung MD BLOOD BANK TEST ORDERABLES Fin al Result Performing Organization Address City/[facility]/ZIP Co de Phone Number [facility] [place] [address] [place] [address], [facility] [address] [place] [address], [place] * (ABNORMAL) Urine protein creatinine ratio (10/04/2024 3:40 PM EDT) URINE PROTEIN, RANDOM (MG/L) 140(H) <120 mg/L 10/04/2024 5:09 PM EDT [facility] URINE CREATININE,RDM 28.24 mg/dL 10/04/2024 5:09 PM EDT [facility] U/PRO/TENTERING MACHINE OFF BEARER RATIO CALC 0.50(H) <=0.20 10/04/2024 5:09 PM EDT [facility] Urine Urine specimen collection, clean catch / Unknown 10/04/2024 3:40 PM EDT 10/04/2024 4:23 PM EDT [facility] - 10/04/2024 5:09 PM EDT Nephrotic Syndrome is associated with ratios >3.5 us Yvon Post MD URINE ORDERABLES Final Result Performing Organization Address City/[facility]/ZIP Co de Phone Number [facility] [address] [place] [address], [place] [phone] * Buprenorphine, urnie (10/04/2024 3:40 PM EDT) BUPRENORPHINE, URINE QUALITATIVE Negative Negative 10/04/2024 5:09 PM EDT [facility] Urine Urine specimen collection, clean catch / Unknown 10/04/2024 3:40 PM EDT 10/04/2024 4:23 PM EDT [facility] - 10/04/2024 5:09 PM EDT Urine Buprenorphine cut of value = 10 ng/mL This report is intended for use in clinical monitoring or management of patients. us Yvon Post MD URINE ORDERABLES Final Result Performing Organization Address City/[facility]/ZIP Co de Phone Number [facility] [address] [place] [address], [place] [phone] * Fentanyl, Urine Qualitative (10/04/2024 3:40 PM EDT) FENTANYL, URINE QUAL. Negative Negative 10/04/2024 5:09 PM EDT [facility] Urine Urine specimen collection, clean catch / Unknown 10/04/2024 3:40 PM EDT 10/04/2024 4:23 PM EDT [facility] - 10/04/2024 5:09 PM EDT Fentanyl screening cutoff = 5ng/ml This report is intended for use in clinical monitoring or management of patients. us Yvon Post MD URINE ORDERABLES Final Result Performing Organization Address [facility]/ZIP Co de Phone Number [facility] [address] [place] [address], [place] [phone] * Drug Screen, Urine (10/04/2024 3:40 PM EDT) AMPHETAMINE/METHAMP Negative Negative 10/04 5:09 PM EDT [facility] Comment:AMPH/METH screening cut off = 1000 ng/mL COCAINE METABOLITE Negative Negative 2024 5:09 PM EDT [facility] Comment:Cocaine screening cu t off value = 300 ng/mL ECSTASY Negative Negative 10/04/2024 5:09 PM EDT [facility] Comment:Ecstasy screening cu t off value = 500 ng/mL METHADONE Negative Negative 10/04/2024 5:09 PM EDT [facility] Comment:Methadone screening cut off value = 300 ng/mL. OPIATES Negative Negative 10/04/2024 5:09 PM EDT [facility] Comment: Opiates screening cut off value = 300 ng/mL This test is used for the detection of codeine, hydrocodone (>1000 ng/mL), morphine and hydromorphone (>900 ng/mL) in urine. OXYCODONE Negative Negative 10/04/2024 5:09 PM EDT [facility] Comment: Oxycodone screening cut off value = 300 ng/mL This test is used for the detection of oxycodone and oxymorphone in urine. PHENCYCLIDINE Negative Negative 10/04/2024 5:09 PM EDT [facility] Comment:Phencyclidine screen ing cut off value = 25 ng/mL CANNABINOIDS Negative Negative 10/04/2024 5:09 PM EDT [facility] Comment:Cannabinoids/THC scr eening cut off value = 50 ng/mL Urine Barbiturates Negative Negative 2024 5:09 PM EDT [facility] Comment:Barbiturates screeni ng cut off value = 200 ng/mL BENZODIAZEPINES Negative Negative 5:09 PM EDT [facility] Comment:Benzodiazepines scre ening cut off value = 200 ng/mL Urine Urine specimen collection, clean catch / Unknown 10/04/2024 3:40 PM EDT 10/04/2024 4:23 PM EDT us Yvon Post MD URINE ORDERABLES Final Result [facility] [address] [place] [address], [place] [phone] * US MFM COMPREHENSIVE ANATOMIC SURVEY (10/04/2024 3:20 PM EDT) Anatomical Region Laterality Modality OB-BUTCHER APPRENTICE Ultrasound 10/04/2024 2:51 PM EDT Narrative 10/04/2024 5:21 PM EDT NAME: BASILIO ALARCON : 1995 SEX: F Accession Number: [id number] ORDERING PHYSICIAN: YVON POST REFERRING PHYSICIAN: LUCÍA LEDESMA Coding ----- --------- Procedures 31297: Ultrasound, uterus, real time with image documentation, [...] EFW (oz) 8 oz EFW by: Hadlock ([id number]) Extended Tibia 47.6 mm 28w 6d 7% Isac Bioassayist 3.0 mm CM 5.2 mm 7% Nicolaides [...] Heart / Thorax 4-chamber view. 3-vessel view. 6-megdxb-umfhflh view. Interventricular septum. Great vessels. Diaphragm. Abdomen [...] George : 1995 SEX: F Accession Number: [id number] ORDERING PHYSICIAN: YVON POST REFERRING PHYSICIAN: LUCÍA LEDESMA Coding ----- --------- Procedures [id number]: Ultrasound, uterus, real time with imagedocumentation, and [...] EFW (oz) 8 oz EFW by: Hadlock ([id number]) Extended Tibia 47.6 mm 28w 6d 7% Isac Bioassayist 3.0 mm CM 5.2 mm 7% Nicolaides [...] Heart / Thorax 4-chamber view. 3-vessel view. 8-kfgxci-yezolfo view.Interventricular septum. Great vessels. Diaphragm. Abdomen Kidneys. [...] thepatient as necessary. us Yvon Post MD [facility] US ORDERABLES Final Resul t * Syphilis Total (Unknown Syphilis Status) (10/04/2024 1:02 PM EDT) [facility] SYPHILIS TOTAL <0.2 <=0.8 AI 10/04/2024 3:16 PM EDT [facility] Blood Venous blood / Unknown Venipuncture / Unknown 10/04/2024 1:02 PM EDT 10/04/2024 1:13 PM EDT Narrative [facility] - 10/04/2024 3:16 PM EDT NON REACTIVE No serologic evidence of infection to Treponema pallidum. Repeat testing may be considered in patients with suspected acute or primary syphilis in 2 to 4 weeks. Kay Levi MD LAB BLOOD ORDERABLES Final Res ult [facility] [address] [place] [address], [place] [phone] * Type and screen(includes indirect reanna) (10/04/2024 1:02 PM EDT) Only the most recent of2 resultswithin the time period is included. [facility] ABO A 10/04/2024 2:03 PM EDT [facility] RH Positive 10/04/2024 2:03 PM EDT [facility] Antibody Screen Negative 10/04/2024 2:03 PM EDT [facility] Blood Venous blood / Unknown Venipuncture / Unknown 10/04/2024 1:02 PM EDT 10/04/2024 1:19 PM EDT Kay Levi MD BLOOD BANK TEST ORDERABLES Paco walter Result - Final [facility] [address] [place] [address], [facility] [address] [place] [address], [place] * (ABNORMAL) CBC and differential (10/03/2024) [...] ORDERABLES Final Resu lt Performing Organization Address [facility]/ZIP Co de Phone Number MANUALLY TRANSCRIBED RESULTS * Basic Metabolic Panel (10/03/2024) Pathologist [facility] BUN 10 4 - 21 mg/dL MANUALLY TRANSCRIBED RESULTS Creatinine 0.8 0.5 - 1.1 mg/dL MANUALLY TRANSCRIBED RESULTS Blood Venous blood / Unknown us Lucía R Angel DO LAB BLOOD ORDERABLES Final Resu lt MANUALLY TRANSCRIBED RESULTS * Chlamydia/GC by PCR Young Swab (08/20/2024) Pathologist [facility] Chlamydia Dna(Pcr) negative Gonorrhoeae Dna(Pcr) negative Swab us Lucía R Angel DO MICROBIOLOGY - GENERAL ORDERABL ES Final Result from Last 3 Months Insurance [employer] Advance Directives * Full Code (Latest Code Status on File) Date Activated Date Inactivated Comments 10/04/2024 12:52 PM 10/05/2024 5:08 PM
--- OUTSIDE RECORDS SUMMARY | 2024-10-27 12:56 | XMS_ITS | Encounter Summary ---
Author Organization [facility] Address [id number] [address] [place] [address] Care Team Providers Care Acid Supervisor Name Role Phone Unavailable Primary Care Provider Unavailabl e Encounter Details Date Type Department Care Team (Late st Contact Info) Description 10/22/2024 Telephone Maternal- Medicine at [facility] [address] [place] [address] Meka Younger LPN Social History [...]
--- OUTSIDE RECORDS SUMMARY | 2024-10-27 12:56 | XMS_ITS | Encounter Summary ---
Author Organization [facility] Address [address] [place] [address] Care Team Providers Care Loss Prevention Supervisor Name Role Phone Unavailable Primary Care Provider Unavailabl e Encounter Details Date Type Department Care Team (Late st Contact Info) Description 10/17/2024 Clinisync Result Encounter [facility] External Department Unsolicited Lucía Ortiz DO [address], [facility]11 Social History Tobacco Use Types Packs/Day Years [...] [facility] Luis Armando OBGYN [address] [place] [id number] Lucía Ortiz DO [address] [place] [address] documented as of this encounter Procedures Procedure Name Priority Date/Time Associated Diagnosis Comments US OB BPP W NON-STRESS 10/17/2024 11:04 AM EDT documented in this encounter Results * US OB BPP W NON-STRESS (10/17/2024 11:04 AM EDT) Anatomical Region Laterality Modality Other 10/17/2024 11:0 4 AM EDT Narrative 10/17/2024 11:[place] [address] Ultrasound Report Signed Patient: DORIAN RICHMOND MR#: [id number] : 1995 Acct:[id number] Age/Sex: 29 / F ADM Date: 10/17/24 Loc: [facility] 250-[address]: Lucía Ortiz D.O. Ordering Physician: Lucía Ortiz D.O. Date of Service: 10/17/24 Procedure(s): US OB BPP w non-stress Accession Number(s): [id number] cc: Lucía Ortiz D.O.; Physician,Non-Staff M.DNathalia [address] [place] [address] Patient Name: DORIAN RICHMOND MRN: [id number] date: 1995 Sex: F Assigned Patient Location: [facility] Current Patient Location: [facility] Accession/Order Number: [id number] Exam Date: 10/17/2024 10:30 Report Date: 10/17/2024 [...] Kee M.D. 10/17/2024 11:04 AM Dictation Location: [place] [address] Electronically authenticated by: [id number] Y Date: 10/17/2024 11:04 Dictated By: Jane Kee M.D. Signed By: 10/17/24 1107 DD/ 1104 TD/TT: [employer]cher[employer] Supervisor: Procedure Note Radiology, Radiologist, MD - 10/17/2024 [place] [address] Ultrasound Report Signed Patient: DORIAN RICHMOND JMR#: [id number] : 1995Acct:[id number] Age/Sex: 29 / FADM Date: 10/17/24 Loc: [facility] 250-[address]: Lucía Ortiz D.O. Ordering Physician: Lucía Ortiz D.O. Date of Service: 10/17/24 Procedure(s): US OB BPP w non-stress Accession Number(s): [id number] cc: Lucía Ortiz D.O.; Physician,Non-Staff [place] The [place] [id number] Patient Name: DORIAN RICHMOND MRN: [id number] date: 1995 Sex: F Assigned Patient Location: [facility] Current Patient Location: [facility] Accession/Order Number: [id number] Exam Date: 10/17/2024 10:30 Report Date: 10/17/2024 [...] Kee M.D. 10/17/2024 11:04 AM Dictation Location: [place] [address] Electronically authenticated by: [id number] Y Date: 1:04 Dictated By: Jane Kee M.D. Signed By:10/17/24 1107 DD/ 1104 TD/TT: [employer] Supervisor: us Lucía Angel DO [facility] Final Result documented in this encounter Visit Diagnoses Not on filedocumented in this encounter
--- OUTSIDE RECORDS SUMMARY | 2024-10-27 12:56 | XMS_ITS | Clinical Summary ---
Author Organization [facility] Healthcare Address [address] [place] [address] Care Team Providers Care Mechanical Expert Name Role Phone Unavailable Primary Care Provider [...] gestational diabetes method of control unspecified ([facility]),Elev ated glucose tolerance test 1 kit Daily [...] antepartum, gestational diabetes method of control unspecified ([facility]) Use as instructed 100 each 4 10/04/19 025 Discontinued(En tered in error) Encounters Date Type Department Care Team Description 10/24/2024 1:20 PM EDT Routine [facility] [address] [place] [address] Gwen Mccormick PA Third trimester ([facility]); 33 weeks gestation of ([facility]) 10/24/2024 Clinisync Result Encounter NOMS External Department Unsolicited Lucía Ortiz, DO 10/24/2024 Clinisync Result Encounter NOMS External Department Unsolicited Lucía Ortiz, DO 10/24/2024 Bamboo flowsheet [facility] Armando [address] [place] [address] Gwen Mccormick PA 10/23/2024 Telephone [facility] [address] [place] [address] Nayeli Randle LPN 10/20/2024 Clinisync Result Encounter NOMS External Department Unsolicited Lucía Ortiz, DO 10/19/2024 Abstract [facility] Armando [address] [place] [address] Snehal Lamb MA 10/17/2024 1:30 PM EDT Routine [facility] Armando [address] [place] [address] Lucía Ortiz, DO 32 weeks gestation of ([facility]); Third trimester ([facility]); Hypertension affecting in third trimester ([facility]); Diet controlled gestational diabetes mellitus (GDM), antepartum ([facility]); Gestational diabetes mellitus (GDM), antepartum, gestational diabetes method of control unspecified ([facility]); Elevated glucose tolerance test; induced hypertension, antepartum ([facility]) 10/17/2024 Clinisync Result Encounter NOMS External Department Unsolicited Angel, Lucía, DO 10/10/2024 Clinisync Result Encounter NOMS External Department Unsolicited Angel, Lucía, DO 10/08/2024 2:20 PM ED[place] [address] Lucía Ortiz, DO Third trimester ([facility]); 31 weeks gestation of ([facility]); Hypertension affecting in third trimester ([facility]) 10/08/2024 Bamboo [place] [address] Lucía Ortiz, DO 10/04/2024 Clinisync Result Encounter NOMS External Department Unsolicited AngelLucía, DO 10/03/2024 2:20 PM EDT [place] [address] Lucía Ortiz, DO Third trimester ([facility]); Diet controlled gestational diabetes mellitus (GDM), antepartum ([facility]); Gestational diabetes mellitus (GDM), antepartum, gestational diabetes method of control unspecified ([facility]) 10/03/2024 2:00 PM EDT Ancillary [place] [address] Size of fetus inconsistent with dates in second trimester ([facility]) 10/03/2024 Clinisync Result Encounter NOMS External Department Unsolicited AngelGilliany, DO 10/03/2024 Clinisync Result Encounter NOMS External Department Unsolicited AngelGilliany, DO 10/03/[address] [place] [place] [address] Jane Lang LPN 09/17/2024 1:30 PM EDT Routine [facility] [place] [phone] Gwen Mccormick PA Size of fetus inconsistent with dates in second trimester ([facility]) (Primary Dx); 28 weeks gestation of ([facility]) 09/17/2024 Bamboo flowsheet [facility] [place] [address] Gwen Mccormick PA 09/11/2024 [place] [address] Lucía Ortiz, 08/29/2024 1:00 PM EDT Ancillary [place] [phone] Encounter for follow-up ultrasound of anatomy ([facility]) 08/28/2024 [place] [address] Berta Yoder MA 08/20/2024 2:10 PM EDT [place] [address] uLcía Ortiz, Well woman exam with routine gynecological exam; Second trimester ([facility]); 24 weeks gestation of ([facility]); Exposure to STD; Need for maternal serum alpha-protein (MSAFP) screening ([facility]); Encounter for follow-up ultrasound of anatomy ([facility]) 08/20/2024 Clinisync Result Encounter NOMS External Department Unsolicited Lucía Ortiz, 08/20/2024 External Result Encounter NOMS External Department Unsolicited Lucía Ortiz, 08/20/2024 Bamboo flowsheet [facility] [place] [address] Lucía Ortiz DO from Last 3 Months [...] 1:40 PM EDT Routine [facility]ando [address] [place] [address] Lucía Ortiz DO [address] [place] [address] Health Maintenance Due Date Last Done Comments Influenza Vaccine (#1) 2024 11/26/2011, 2003, 03/01/2003 Cervical Cancer Screening 08/20/2029 HPV/Cotest 08/20/2029 Pap Smear 08/20/2029 08/20/2024 Procedures Procedure Name Priority Date/Time Associated Diagnosis Comments US OB GROWTH 10/24/2024 3:57 PM EDT US OB BPP W NON-STRESS 10/24/2024 3:49 PM EDT POCT URINALYSIS DIPSTICK Routine 10/24/2024 1:50 PM EDT Third trimester ([facility]) [facility] AST Routine 10/20/2024 12:46 PM EDT TBH CREATININE Routine 10/20/2024 12:46 PM EDT ALL BUN Routine 10/20/2024 12:46 PM EDT ALL CBC WITH AUTO DIFF Routine 12:46 PM EDT POCT URINALYSIS DIPSTICK Routine 10/17/2024 1:37 PM EDT 32 weeks gestation of ([facility]) Third trimester ([facility]) US OB BPP W NON-STRESS 10/17/2024 11:04 AM EDT US OB BPP W NON-STRESS 10/10/2024 2:29 PM EDT POCT URINALYSIS DIPSTICK Routine 10/08/2024 3:15 PM EDT Third trimester ([facility]) 31 weeks gestation of ([facility]) MHPT FIBRINOGEN Routine 10/04/2024 8:46 AM EDT [...] Routine 10/03/2024 2:28 PM EDT Third trimester ([facility]) US OB FOLLOW UP TRANSABDOMINAL APPROACH Routine 10/03/2024 2:16 PM EDT Size of fetus inconsistent with dates in second trimester ([facility]) US OB LIMITED 1+ FETUSES Routine 08/29/2024 1:23 PM EDT Encounter for follow-up ultrasound of anatomy ([facility]) RECURRENT VAGINITIS (HTRX) Routine 08/20/2024 3:53 PM EDT POCT URINALYSIS DIPSTICK Routine 08/20/2024 2:57 PM EDT Second trimester ([facility]) IGP,APTIMA HPV,AGE GDLN Routine 08/20/2024 2:32 PM EDT PAP SMEAR Routine 08/20/2024 12:00 AM EDT from Last 3 Months Results * US OB GROWTH (10/24/2024 3:57 PM EDT) Anatomical Region Laterality Modality Other 10/24/2024 3:57 PM EDT Narrative 10/24/2024 3:59 [place] [address] Ultrasound Report Signed Patient: DORIAN TOVAR MR#: [id number] : 1995 Acct:[id number] Age/Sex: 29 / F ADM Date: 10/24/24 Loc: US Attending Dr: Lucía Ortiz D.O. Ordering Physician: Lucía Ortiz D.O. Date of Service: 10/24/24 Procedure(s): US OB growth Accession Number(s): [id number] cc: Lucía Ortiz D.O.; Physician,Non-Staff M.DNathalia The [address] [address] Patient Name: DORIAN TOVAR MRN: [id number] date: 1995 Sex: F Assigned Patient Location: [facility] Current Patient Location: Accession/Order Number: [id number] Exam Date: 10/24/2024 14:16 Report Date: 10/24/2024 [...] Jr., D.O. 10/24/2024 3:57 PM Dictation Location: [facility] Electronically authenticated by: [id number] Y Date: 10/24/2024 15:57 Dictated By: Kahlil Voss M.D. Signed By: 10/24/24 1559 DD/ 1557 TD/TT: Lining Machine Tender: Procedure Note Radiology, Radiologist, MD - 10/24/2024 [place] [address] Ultrasound Report Signed Patient: DORIAN TOVAR JMR#: [id number] : 1995Acct:[id number] Age/Sex: 29 / FADM Date: 10/24/24 Loc: US Attending Dr: Lucía Ortiz D.O. Ordering Physician: Lucía Ortiz D.O. Date of Service: 10/24/24 Procedure(s): US OB growth Accession Number(s): [id number] cc: Lucía Ortiz D.O.; Physician,Non-Staff James The [address] [address] Patient Name: DORIAN TOVAR MRN: [id number] date: 1995 Sex: F Assigned Patient Location: [facility] Current Patient Location: Accession/Order Number: [id number] Exam Date: 10/24/2024 14:16 Report Date: 10/24/2024 [...] Jr., D.O. 10/24/2024 3:57 PM Dictation Location: [facility] Electronically authenticated by: [id number] Y Date: 5:57 Dictated By: Kahlil Voss M.D. Signed By:10/24/24 1559 DD/ 1557 TD/TT: Lining Machine Tender: us Lucía Ortiz DO [facility]AG[facility] Final Result * US OB BPP W NON-STRESS (10/24/2024 3:49 PM EDT) Only the most recent of4 resultswithin the time period is included. Anatomical Region Laterality Modality Other 10/24/2024 3:49 PM EDT Narrative 10/24/2024 3:51 [place] [address] Ultrasound Report Signed Patient: DORIAN TOVAR MR#: [id number] : 1995 Acct:[id number] Age/Sex: 29 / F ADM Date: 10/24/24 Loc: US Attending Dr: Lucía Ortiz D.O. Ordering Physician: Lucía Ortiz D.O. Date of Service: 10/24/24 Procedure(s): US OB BPP w non-stress Accession Number(s): [id number] cc: Lucía Ortiz D.O.; Physician,Non-Staff James The [address] [address] Patient Name: DORIAN TOVAR MRN: [id number] date: 1995 Sex: F Assigned Patient Location: [facility] Current Patient Location: Accession/Order Number: [id number] Exam Date: 10/24/2024 14:16 Report Date: 10/24/2024 15:49 At the request of: LUCÍA ORTIZ DO Procedure: US OB BPP w non-stress Biophysical profile. Reason for exam: Gestational diabetes COMPARISON: 10/03/2024 TECHNIQUE: Transabdominal imaging of the gravid uterus was obtained. FINDINGS: The professor of rhetoric reports a BPP of 8 out of 8. SCOOTER is normal at 10.0 cm. heart rate 131 bpm. US/US OB BPP w non-stress IMPRESSION: BPP 8 out of 8. Impression dictated by: Kahlil Voss Jr., D.O. 10/24/2024 3:49 PM Dictation Location: [place] [address] Electronically authenticated by: [id number] Y Date: 10/24/2024 15:49 Dictated By: Kahlil Voss M.D. Signed By: 10/24/24 1551 DD/ 1549 TD/TT: Lining Machine Tender: Procedure Note Radiology, Radiologist, MD - 10/24/2024 The [place] [id number] Ultrasound Report Signed Patient: DORIAN TOVAR JMR#: [id number] : 1995Acct:[id number] Age/Sex: 29 / FADM Date: 10/24/24 Loc: US Attending Dr: Lucía Ortiz D.O. Ordering Physician: Lucía Ortiz D.O. Date of Service: 10/24/24 Procedure(s): US OB BPP w non-stress Accession Number(s): [id number] cc: Lucía Ortiz D.O.; Physician,Non-Staff James [address] [address] Patient Name: DORIAN TOVAR MRN: [id number] date: 1995 Sex: F Assigned Patient Location: [facility] Current Patient Location: Accession/Order Number: [id number] Exam Date: 10/24/2024 14:16 Report Date: 10/24/2024 15:49 At the request of: LUCÍA ORTIZ DO Procedure: US OB BPP w non-stress Biophysical profile. Reason for exam: Gestational diabetes COMPARISON: 10/03/2024 TECHNIQUE: Transabdominal imaging of the gravid uterus was obtained. FINDINGS: The professor of rhetoric reports a BPP of 8 out of 8. SCOOTER is normal at10.0 cm. heart rate 131 bpm. US/US OB BPP w non-stress IMPRESSION: BPP 8 out of 8. Impression dictated by: Kahlil Voss Jr., D.O. 10/24/2024 3:49 PM Dictation Location: [place] [address] Electronically authenticated by: [id number] Y Date: 5:49 Dictated By: Kahlil Voss M.D. Signed By:10/24/24 1551 DD/ 1549 TD/TT: Lining Machine Tender: us Lucía Ortiz DO [facility] Final Result * (ABNORMAL) POCT urinalysis dipstick manually resulted (10/24/2024 1:50 PM EDT) Only the most recent of5 [...] TEST ENTER/EDIT OR DERABLES Final Result * TB CREATININE (10/20/2024 12:46 PM EDT) Only the most recent of3 resultswithin the time period is included. CREATININE 0.83 0.55 - 1.02 mg/dL TB TB EGFR-AF SOMALI >60 >=60 mL/min/1.7 3m 2 TBH TB EGFR-NON AF SOMALI >60 >=60 mL/min/1.7 3m 2 TBH 10/20/2024 12:4 6 PM EDT 10/20/2024 12:47 PM EDT Narrative CLINISYNC - 10/20/2024 1:16 PM EDT Lucía Angel DO CLINISYNC Final Result [facility], [facility] * [facility] AST (10/20/2024 12:46 PM EDT) Only the most recent of3 resultswithin the time period is included. ASPARTATE AMINO TRANSFERASE 20 15 - 37 U/L TB 10/20/2024 12:4 6 PM EDT 10/20/2024 12:47 PM EDT Narrative CLINISYNC - 10/20/2024 1:16 PM EDT Lucía Angel DO CLINISYNC Final Result [facility] * (ABNORMAL) ALL CBC WITH AUTO [...] CLINISYNC - 10/20/2024 1:14 PM EDT Lucía Ortiz DO CLINISYNC Final Result Performing Organization Address [facility] Co de Phone Number [facility] * ALL BUN (10/20/2024 12:46 PM EDT) Only the most recent of3 resultswithin the time period is included. BLOOD UREA NITROGEN 13.0 7.0 - 18.0 mg/dL TB 10/20/2024 12:4 6 PM EDT 10/20/2024 12:47 PM EDT Narrative CLINISYNC - 10/20/2024 1:16 PM EDT [facility] Angel DO CLINISYNC Final Result Performing Organization Address [facility] de Phone Number [facility] * SRMCOH PROTHROMBIN TIME INR W/O [...] DO CLINISYNC Final Result Performing Organization Address [facility] de Phone Number [facility] * (ABNORMAL) MHPT FIBRINOGEN (10/04/2024 8:46 AM EDT) Only the most recent of2 resultswithin the time period is included. FIBRINOGEN 575(H) 200 - 400 mg/dL TB [...] DO CLINISYNC Final Result Performing Organization Address [facility] de Phone Number [facility] * CCF ALT (10/04/2024 8:46 AM EDT) Only the most recent of2 resultswithin the time period is included. ALANINE AMINOTRANSFERASE 14 14 - 59 U/L TB 10/04/2024 8:46 AM EDT 10/04/2024 8:50 AM EDT Narrative CLINISYNC - 10/04/2024 9:33 AM EDT us Lucía Angel DO CLINISYNC Final Result Performing Organization Address [facility] de Phone Number [facility] * ALL URIC ACID (10/04/2024 8:46 AM EDT) Only the most recent of2 resultswithin the time period is included. URIC ACID 5.4 2.6 - 6.0 mg/dL TB 10/04/2024 8:46 AM EDT 10/04/2024 8:50 AM EDT Narrative CLINISYNC - 10/04/2024 9:33 AM EDT us Lucía Angel DO CLINISYNC Final Result Performing Organization Address City/[facility] Co de Phone Number [facility] TB * ALL LDH (10/04/2024 8:46 AM EDT) LACTATE DEHYDROGENASE 153 81 - 234 U/L TBH 10/04/2024 8:46 AM EDT 10/04/2024 8:50 AM EDT Narrative CLINISYNC - 10/04/2024 9:35 AM EDT us Lucía Angel DO JELANIISYJOHNNY Final Result Performing Organization Address [facility] Co de Phone Number [facility] * (ABNORMAL) TBH URINE T PROTEIN CREAT RATIO (10/03/2024 5:10 PM EDT) TOTAL PROTEIN URINE RANDOM 28.5(H) <=11.9 mg/dL TBH CREATININE URINE RANDOM 60.71 20.00 - 300.00 mg/dL TBH PROTEIN CREATININE RATIO URINE 0.47 TBH 10/03/2024 5:10 PM EDT 10/03/2024 5:33 PM EDT Narrative CLINISYNC - 10/03/2024 5:50 PM EDT us Lucíaphong Ortiz DO SHAHZADNH Final Result Performing Organization Address [facility] de Phone Number [facility] * US OB follow up transabdominal [...] II, MD, PHD at 04-Oct-2024 08:06:58 AM [facility] Procedure Note Una Webber MD - [...] signed by UNA WEBBER II, MD, PHD [id number] 08:06:58 AM [facility] us Gwen SAAVEDRA IMG OB US [...] Kahlil Solis MD us Lucía Ortiz DO [facility] OB US PROCEDURES Final Resul t * RECURRENT VAGINITIS (HTRX) (08/20/2024 3:53 PM EDT) Pathologist [facility] ATOPOBIUM VAGINAE 0 19.961 - 24.689 ppm 08/21/2024 6:26 AM EDT [facility] ATOPOBIUM VAGINAE Not Detected 19.961 - 24.689 ppm 08/21/2024 6:26 AM EDT [facility] BVAB 2,3 (BACTERIAL VAGINOSIS ASSOCIATED BACTERIA 2, 3); MOBILUNCUS SPP 0 19.961 - 24.689 ppm 08/21/2024 6:26 AM EDT [facility] BVAB 2,3 (BACTERIAL VAGINOSIS ASSOCIATED BACTERIA 2, 3); MOBILUNCUS SPP Not Detected 19.961 - 24.689 ppm 08/21/2024 6:26 AM EDT [facility] FORREST ALBICANS, PARAPSILOSIS, TROPICALIS 0 19.961 - 30.770 ppm 08/21/2024 6:26 AM EDT [facility] [place] FORREST ALBICANS, PARAPSILOSIS, TROPICALIS Not Detected 19.961 - 30.770 ppm 08/21/2024 6:26 AM EDT [facility] [place] FORREST GLABRATA 0 23.000 - 32.138 ppm 08/21/2024 6:26 AM EDT [facility] [place] FORREST GLABRATA Not Detected 23.000 - 32.138 ppm 08/21/2024 6:26 AM EDT [facility] [place] FORREST KRUSEI 0 23.000 - 32.271 ppm 08/21/2024 6:26 AM EDT [facility] [place] FORREST KRUSEI Not Detected 23.000 - 32.271 ppm 08/21/2024 6:26 AM EDT [facility] [place] CHLAMYDIA TRACHOMATIS 0 23.000 - 31.467 ppm 08/21/2024 6:26 AM EDT [facility] [place] CHLAMYDIA TRACHOMATIS Not Detected 23.000 - 31.467 ppm 08/21/2024 6:26 AM EDT [facility] [place] GARDNERELLA VAGINALIS 0 19.961 - 24.689 ppm 08/21/2024 6:26 AM EDT [facility] [place] GARDNERELLA VAGINALIS Not Detected 19.961 - 24.689 ppm 08/21/2024 6:26 AM EDT [facility] [place] MEGASPHAERA (TYPES 1, 2) 0 19.961 - 24.689 ppm 08/21/2024 6:26 AM EDT [facility] [place] MEGASPHAERA (TYPES 1, 2) Not Detected 19.961 - 24.689 ppm 08/21/2024 6:26 AM EDT [facility] [place] NEISSERIA GONORRHOEAE 0 23.000 - 32.117 ppm 08/21/2024 6:26 AM EDT [facility] [place] NEISSERIA GONORRHOEAE Not Detected 23.000 - 32.117 ppm 08/21/2024 6:26 AM EDT [facility] [place] TRICHOMONAS VAGINALIS 0 23.000 - 32.119 ppm 08/21/2024 6:26 AM EDT [facility] [place] TRICHOMONAS VAGINALIS Not Detected 23.000 - 32.119 ppm 08/21/2024 6:26 AM EDT [facility] MYCOPLASMA GENITALIUM 0 19.961 - 24.689 ppm 08/21/2024 6:26 AM EDT [facility] MYCOPLASMA GENITALIUM Not Detected 19.961 - 24.689 ppm 08/21/2024 6:26 AM EDT [facility] Tissue 08/20/2024 3:53 PM EDT 08/21/2024 1:25 AM EDT us Lucía Ortiz DO LAB BLOOD ORDERABLES Final Resul t [facility] [address] [place] [address] * IGP,APTIMA HPV,AGE GDLN (08/20/2024 2:32 PM EDT) AGE GDLN ACOG TESTING Note . [facility] Comment: TESTS RESULT FLAG UNITS REF RANGE LAB Clinician Provided Cytology Information Source.............Cervix No. of containers..01 ThinPrep Vial Age Algo ACOG Haydee... 30-65 FLAG LEGEND: L-Low Normal,H-High Normal,LL-Alert Low,HH-Alert High <-Panic Low,>-Panic High,A-Abnormal,AA-Critical Abnormal Performed at: 01 =G [facility] [address] [facility] [place] [address] Glory Schaffer MD, IGP, APTIMA HPV, RFX 16/18,45 Note . [facility] Comment: TESTS RESULT FLAG UNITS REF RANGE LAB DIAGNOSIS: 02 NEGATIVE FOR INTRAEPITHELIAL LESION OR MALIGNANCY. Specimen adequacy: 02 Satisfactory for evaluation. No endocervical component is identified. Performed by: 02 Tai Darling, Equipment Washer (ASC) . 02 Note: Note 02 The [...] High,A-Abnormal,AA-Critical Abnormal Performed at: 02 WB [facility] [place] [address] [place] [address] Glory Schaffer MD, HPV APTIMA Negative Negative [facility] Comment: This nucleic acid amplification test detects fourteen high- risk HPV types (16,18,31,33,35,39,45,51,52,56,58,59,66,68) without differentiation. Performed at: =[address] [id number] Funeral Service Apprentice: Glory Schaffer MD, Phone: [phone] Performed at: [address] [id number] Funeral Service Apprentice: Glory Schaffer MD, Phone: [phone] 08/20/2024 2:32 PM EDT 08/20/2024 9:44 PM EDT Narrative CLINISYNC - 08/23/2024 3:08 PM EDT BRUSH-SPATULA CERVIX Lucía Angel DO LAB BLOOD ORDERABLES Final Resul t Performing Organization Address [facility]/ZIP Co de Phone Number [facility] * Pap Smear (08/20/2024 12:00 AM EDT) Swab Cervical swab / Unknown Lucía Angel DO LAB CYTOLOGY ORDERABLES Final Re sult Performing Organization Address City/[facility] Co de Phone Number EXTERNAL LAB from Last 3 Months Insurance Member Subscriber Plan / Payer (Ef fective 2021-Present) Name:Dorian Tovar Relation to Subscriber:Spouse Name:Yohan Salgado Date of :1993 (Home) Address: [address] [place], [place] [id number] Payer ID:Not on file Type:Not on file Address: [facility] [id number] [place] [phone] [employer]
--- OUTSIDE RECORDS SUMMARY | 2024-10-27 12:56 | XMS_ITS | Encounter Summary ---
Author Organization [facility] Address [address] [place] [address] Care Team Providers Care Recording Clerk Name Role Phone Unavailable Primary Care Provider Unavailabl e Encounter Details Date Type Department Care Team (Late st Contact Info) Description 10/19/2024 Abstract [facility] MANZANO [address] [place] [address] Snehal Lamb MA Social History Tobacco [...] 1:40 PM EDT Routine GREG MANZANO [address] [place] [address] Zack Ortiz DO [address] [place], [place] [id number] documented as of this encounter Visit Diagnoses Not on filedocumented in this encounter
--- OUTSIDE RECORDS SUMMARY | 2024-10-27 12:56 | XMS_ITS | CCD ---
Author Organization [facility] Care Team Providers Care Loss Prevention Coordinator Name Role Phone DR RORO GARNER Attending [...] ORTIZ Attending Unavailable ZACK ORTIZ Attending Unavailable ANGEL, ZACK Attending Unavailable GWEN MCCORMICK Attending Unavailable Medications Current Medications Medication Drug Class(es) Dates Sig (Normalized) Sig (Original) acetaminophen 325 mg / butalbital 50 mg / caffeine 40 mg oral tablet (17 sources) Barbiturate, Central Nervous System Stimulant, Methylxanthine Start: 09-16-2020 take 1 tablet by mouth every four hours for headache APAP/butalbital/ caffeine 325 mg-50 mg-40 mg Tab 1 tab(s), Oral, q4hr for headache, 12 tab(s), Refill(s) 0, [facility]/pharmacy #[id number], 165, cm, 09/15/20 22:47:00 EDT, Height/Length [...] # 28 cap(s), Refills(s) 0, Pharmacy: [facility]/pharmacy #[id number], 165, cm, 04/18/24 11:46:00 EST, Height/Length Dosing, 124.5, kg, 04/18/24 11:46:00 EST, Weight Dosing Start Date: 04/18/24 Stop Date: 04/25/24 Status: Ordered atogepant 60 MG Oral Tablet [Qulipta] (1 source) Start: 07-21-2023 take 1 tablet by mouth once daily Qulipta 60 mg oral tablet 60 mg = 1 tab(s), Oral, Daily, # 30 tab(s), Refills(s) 3, Pharmacy: [facility]/pharmacy #[id number], 165.1, cm, 07/08/23 12:52:00 EDT, Height/Length [...] # 14 cap(s), Refills(s) 0, Pharmacy: [facility]/pharmacy #[id number], 165.1, cm, 11/10/21 12:16:00 EDT, Height/Length Dosing, 128, kg, 07/17/21 9:33:00 EDT, Weight Dosing Start Date: 11/10/21 Stop Date: 11/17/21 Status: Ordered ciprofloxacin 500 mg oral tablet (6 sources) Quinolone Antimicrobial Start: 02-17-2022 take 1 tablet by mouth twice daily Cipro 500 mg Tab 500 mg = 1 tab(s), Oral, BID, # 14 tab(s), Refills(s) 0, Pharmacy: [facility]/pharmacy #[id number], 165.1, cm, 02/17/22 16:15:00 EST, Height/Length [...] # 12 caplet(s), Refills(s) 0, Pharmacy: [facility]/pharmacy #[id number], 165, cm, 12/15/20 1:59:00 EDT, Height/Length [...] 8 grams/day/single joint of upper extremities, [facility]/pharmacy #[id number], 165.1, cm, 01/11/23 16:14:00 EST, Height/Length [...] # 12 cap(s), Refills(s) 0, Pharmacy: [facility]/pharmacy #[id number], 165, cm, 10/17/22 13:07:00 EDT, Height/Length Dosing, 123.3, kg, 10/17/22 13:07:00 EDT, Weight Dosing Start Date: 10/17/22 Status: Ordered Flonase 0.05 mg/inh nasal spray (14 sources) Start: 09-18-2020 take 1 spray(s) nasal route once daily Flonase 0.05 mg/inh nasal spray 1 spray(s), Nasal, Daily, 16 gram, Refill(s) 3, each nostril, [facility]/pharmacy #[id number], 165, cm, 09/18/20 9:51:00 EDT, Height/Length Dosing, 116, kg, 09/18/20 9:51:00 EDT, Weight Dosing Start Date: 09/18/20 Status: Ordered fluticasone propionate 0.05 mg/actuat metered dose nasal spray (3 sources) Corticosteroid Start: 09-18-2020 take 1 spray(s) nasal route once daily Flonase 0.05 mg/inh nasal spray 1 spray(s), Nasal, Daily, 16 gram, Refill(s) 3, each nostril, [facility]/pharmacy #[id number], 165, cm, 09/18/20 9:51:00 EDT, Height/Length [...] antepartum, gestational diabetes method of control unspecified ([facility]) , Elevated glucose tolerance test Apply 1 Pad topically Daily Use four times daily to check FSBS. 150 each 3 10/17/2024 Active labetalol hydrochloride 300 mg oral tablet (14 sources) beta-Adrenergic Mariely Start: 10-08-2024 End: 10-08-2025 take 1 tablet by mouth in the morning, then take 1 tablet by mouth in the evening, then take 1 tablet by mouth at bedtime labetalol (Normodyne) 300 MG tablet Indications: Hypertension affecting in third trimester ([facility]) Take 1 tablet (300 mg) by mouth [...] 10 day(s), 20 tab(s), Refill(s) 0, [facility]/pharmacy #[id number], 165.1, cm, 07/08/23 12:52:00 EDT, Height/Length [...] # 21 tab(s), Refills(s) 0, Pharmacy: [facility]/pharmacy #[id number], 165.1, cm, 02/17/22 16:15:00 EST, Height/Length [...] # 28 tab(s), Refills(s) 0, Pharmacy: [facility]/pharmacy #[id number], 165, cm, 12/15/20 1:59:00 EDT, Height/Length Dosing, 113, kg, 12/15/20 1:59:00 EDT, Weight Dosing Start Date: 12/15/20 Status: Ordered Start: 10-01-2020 take 1 tablet by lencho th twice daily as needed for pain Naprosyn 500 mg Tab 500 mg = 1 tab(s), Oral, BID, PRN for pain, # 20 tab(s), Refills(s) 0, Pharmacy: [facility]/pharmacy #[id number], 165.1, cm, 11/10/21 12:16:00 EDT, Height/Length Dosing, 128, kg, 07/17/21 9:33:00 EDT, Weight Dosing Start Date: 11/10/21 Status: Ordered phenazopyridine hydrochloride 200 mg oral tablet (1 source) Start: 11-10-2021 End: 11-12-2021 take 1 tablet by mouth three times daily Pyridium 200 mg Tab 200 mg = 1 tab(s), Oral, TID, X 2 day(s), # 6 tab(s), Refills(s) 0, [id number] 165.1, cm, 11/10/21 12:16:00 EDT, [...] # 14 tab(s), Refills(s) 0, Pharmacy: [facility]/pharmacy #[id number], 165, cm, 06/04/21 14:38:00 EDT, Height/Length [...] # 15 tab(s), Refills(s) 0, Pharmacy: [facility]/pharmacy #[id number], 165.1, cm, 01/11/23 16:14:00 EST, Height/Length Dosing, 127, kg, 01/11/23 16:14:00 EST, Weight Dosing Start Date: 01/11/23 Stop Date: 01/16/23 Status: Ordered Ventolin HFA 90 mcg/inh Aerosol-Adpt (1 source) Start: 04-18-2024 take 1 puff(s) by inhalation every six hours for wheezing Ventolin HFA 90 mcg/inh Aerosol-Adpt 1 puff(s), Inhalation, q6hr for wheezing, 18 gram, Refill(s) 0, [facility]/pharmacy #[id number], 165, cm, 04/18/24 11:46:00 EST, Height/Length Dosing, 124.5, kg, 04/18/24 11:46:00 EST, Weight Dosing Start Date: 04/18/24 Status: Ordered Zofran ODT 4 mg Tab-Dis (20 sources) Start: 10-17-2022 take 1 tablet by mouth every eight hours as needed for nausea Zofran ODT 4 mg Tab-Dis 4 mg = 1 tab(s), Oral, q8hr, PRN Nausea/Vomiting, # 16 tab(s), Refills(s) 0, Pharmacy: [facility]/pharmacy #[id number], 165, cm, 10/17/22 13:07:00 EDT, Height/Length Dosing, 123.3, kg, 10/17/22 13:07:00 EDT, Weight Dosing Start Date: 10/17/22 Status: Ordered Start: 02-17-2022 take 1 tablet by lencho th every six hours as needed for nausea Zofran ODT 4 mg Tab-Dis 4 mg = 1 tab(s), Oral, q6hr, PRN Nausea/Vomiting, # 12 tab(s), Refills(s) 0, Pharmacy: [facility]/pharmacy #[id number], 165.1, cm, 02/17/22 16:15:00 EST, Height/Length Dosing, 122, kg, 02/17/22 16:15:00 EST, Weight Dosing Start Date: 02/17/22 Status: Ordered Start: 02-25-2021 take 1 tablet by lencho th every eight hours Zofran ODT 4 mg Tab-Dis 4 mg = 1 tab(s), Oral, q8hr, # 12 tab(s), Refills(s) 0, Pharmacy: [facility]/pharmacy #[id number], 165, cm, 02/24/21 23:21:00 EST, Height/Length Dosing, 112, kg, 02/24/21 23:21:00 EST, Weight Dosing Start Date: 02/25/21 Status: Ordered Start: 09-16-2020 take 1 tablet by lencho th every eight hours Zofran ODT 4 mg Tab-Dis 4 mg = 1 tab(s), Oral, q8hr, # 10 tab(s), Refills(s) 0, Pharmacy: [facility]/pharmacy #[id number], 165, cm, 09/15/20 22:47:00 EDT, Height/Length [...] meq/ml nasal spray (17 sources) Start: 09-18-2020 [place] Saline Mist 0.65% nasal spray 2 spray(s), Nasal, QID, 1 EA, Refill(s) 4, [id number], 165, cm, 09/18/20 9:51:00 EDT, Height/Length Dosing, 116, kg, 09/18/20 9:51:00 EDT, Weight Dosing Start Date: 09/18/20 Status: Ordered Start: 09-18-2020 [place] Saline Mis t 0.65% nasal spray 2 [...] Facility US OB BPP W NON-STRESS on 10-24-2024 [place] [address] Ultrasound Report Signed Patient: SABRINA RICHMOND MR#: [id number] : 1995 Acct:[id number] Age/Sex: 29 / F ADM Date: 10/24/24 Loc: US Attending Dr: Zack Ortiz D.O. Ordering Physician: Zack Ortiz D.O. Date of Service: 10/24/24 Procedure(s): US OB BPP w non-stress Accession Number(s): [id number] cc: Zack Ortiz D.O.; Physician,Non-Staff M.Maxwell [facility] [place] [address] Patient Name: SABRINA RICHMOND MRN: [facility]:[id number] date: 1995 Sex: F Assigned Patient Location: [facility] Current Patient Location: Accession/Order Number: [id number] Exam Date: 10/24/2024 14:16 Report Date: 10/24/2024 15:49 At the request of: ZACK ORTIZ DO Procedure: US OB BPP w non-stress Biophysical profile. Reason for exam: Gestational diabetes COMPARISON: 10/03/2024 TECHNIQUE: Transabdominal imaging of the gravid uterus was obtained. FINDINGS: The dye weigher reports a BPP of 8 out of 8. SCOOTER is normal at 10.0 cm. heart rate 131 bpm. US/US OB BPP w non-stress IMPRESSION: BPP 8 out of 8. Impression dictated by: Kahlil Voss Jr., D.O. 10/24/2024 3:49 PM Dictation Location: [place] [address] Electronically authenticated by: [id number] Y Date: 10/24/2024 15:49 Dictated By: Kahlil Voss M.D. Signed By: 10/24/24 1551 DD/ 1549 TD/TT: Web Applications Developer: [facility] Radiology, Radiologist, MD - 10/24/2024 [place] [address] Ultrasound Report Signed Patient: SABRINA RICHMOND MR#: [id number] : 1995 Acct:[id number] Age/Sex: 29 / F ADM Date: 10/24/24 Loc: US Attending Dr: Zack Ortiz D.O. Ordering Physician: Zack Ortiz D.O. Date of Service: 10/24/24 Procedure(s): US OB BPP w non-stress Accession Number(s): [id number] cc: Zack Ortiz D.O.; Physician,Non-Staff James [facility] [place] [address] Patient Name: SABRINA RICHMOND MRN: [id number] date: 1995 Sex: F Assigned Patient Location: [facility] Current Patient Location: Accession/Order Number: [id number] Exam Date: 10/24/2024 14:16 Report Date: 10/24/2024 15:49 At the request of: ZACK ORTIZ DO Procedure: US OB BPP w non-stress Biophysical profile. Reason for exam: Gestational diabetes COMPARISON: 10/03/2024 TECHNIQUE: Transabdominal imaging of the gravid uterus was obtained. FINDINGS: The dye weigher reports a BPP of 8 out of 8. SCOOTER is normal at 10.0 cm. heart rate 131 bpm. US/US OB BPP w non-stress IMPRESSION: BPP 8 out of 8. Impression dictated by: Kahlil Voss Jr., D.O. 10/24/2024 3:49 PM Dictation Location: [place] [address] Electronically authenticated by: [id number] Y Date: 10/24/2024 15:49 Dictated By: Kahlil Voss M.D. Signed By: 10/24/24 1551 DD/ 1549 TD/TT: Web Applications Developer: [facility] Radiology Study observation (narrative) [facility] US OB BPP W NON-STRESS Ordered By: Radiologist Radiology on 10-24-2024 [facility] Work Phone: US OB GROWTHon 10-24-2024 [place] [address] Ultrasound Report Signed Patient: SABRINA RICHMOND MR#: [id number] : 1995 Acct:[id number] Age/Sex: 29 / F ADM Date: 10/24/24 Loc: US Attending Dr: Zack Ortiz D.O. Ordering Physician: Zack Ortiz D.O. Date of Service: 10/24/24 Procedure(s): US OB growth Accession Number(s): [id number] cc: Zack Ortiz D.O.; Physician,Non-Staff MJanak [place] [id number] Patient Name: SABRINA RICHMOND MRN: [facility]:[id number] date: 1995 Sex: F Assigned Patient Location: [facility] Current Patient Location: Accession/Order Number: [id number] Exam Date: 10/24/2024 14:16 Report Date: 10/24/2024 15:57 At the request of: ZACK ORTIZ DO Procedure: US OB growth Growth [...] Jr., D.O. 10/24/2024 3:57 PM Dictation Location: [place] [address] Electronically authenticated by: [id number] Y Date: 10/24/2024 15:57 Dictated By: Kahlil Voss M.D. Signed By: 10/24/24 1559 DD/ 1557 TD/TT: Web Applications Developer: [facility] Radiology, Radiologist, MD - 10/24/[address] [address] Ultrasound Report Signed Patient: SABRINA RICHMOND MR#: [id number] : 1995 Acct:[id number] Age/Sex: 29 / F ADM Date: 10/24/24 Loc: US Attending Dr: Zack Ortiz D.O. Ordering Physician: Zack Ortiz D.O. Date of Service: 10/24/24 Procedure(s): US OB growth Accession Number(s): [id number] cc: Zack Ortiz D.O.; Physician,Non-Staff James The [place] [id number] Patient Name: SABRINA RICHMOND MRN: [id number] date: 1995 Sex: F Assigned Patient Location: [facility] Current Patient Location: Accession/Order Number: [id number] Exam Date: 10/24/2024 14:16 Report Date: 10/24/2024 15:57 At the request of: ZACK ORTIZ DO Procedure: US OB growth Growth [...] Jr., D.O. 10/24/2024 3:57 PM Dictation Location: [place] [address] Electronically authenticated by: [id number] Y Date: 10/24/2024 15:57 Dictated By: Kahlil Voss M.D. Signed By: 10/24/24 1559 DD/ 1557 TD/TT: Web Applications Developer: [facility] Radiology Study observation (narrative) [facility] US OB GROWTHOrdered By: Brunilda ologmike Radiology on 10-24-2024 [facility] Work Phone: Urinalysis macro (dipstick) panel (U)on 10-24-2024 Bilirubin, UA Negative Negative - 4(70) +++ mg/dL [facility] Blood, UA Negative Negative - 50 Yossi/mcL [facility] Clarity, UA Clear [facility] Color, UA Yellow [facility] Glucose, UA Negative Negative - 2000(110) ++++ mg/dL [facility] Interpretation and review of laboratory results Abnormal [facility] Ketones, UA Negative Negative - 160(16) ++++ mg/dL [facility] Leukocytes, UA 1+ Negative - 500+++ Wild/mcL [facility] Nitrite, UA Negative Negative - Positive [facility] pH, UA 6 5 - 9 [facility] Protein, UA 1+ Negative - 1999(20) ++++ mg/dL [facility] Spec Grav, UA 1.015 1 - 1.03 [facility] Urobilinogen, UA 1.0 0.2 - 12 mg/dL [facility] ALL CBC WITH AUTO DIFFon BASOPHILS ABSOLUTE AUTO 0.1 N [facility] Basophils/100 WBC (Bld) 0.5 % 0.2 - 2.0 % [facility] Eosinophils/100 WBC (Bld) 2.7 % 0.9 - 7.0 % [facility] Erythrocyte distribution width (RBC) [Ratio] 14.4 % 11.0 - 15.0 % [facility] Hematocrit (Bld) [Volume fraction] 39.2 % 36.0 - 48.0 % [facility] Hemoglobin (Bld) [Mass/Vol] 13.3 g/dL 12.0 - 16.0 g/dL [facility] IMMATURE GRANULOCYTES ABS AUTO 0.04 High [facility] Immature granulocytes/100 WBC (Bld) 0.3 % 0.0 - 0.5 % [facility] Interpretation and review of laboratory results Abnormal [facility] LYMPHOCYTES ABSOLUTE AUTO 2.7 [facility] Lymphocytes/100 WBC (Bld) 22 % 20.5 - 60.0 % [facility] MCH (RBC) [Entitic mass] 27.7 pg 26.7 - 34.0 pg [facility] MCHC (RBC) [Mass/Vol] 33.9 g/dL 29.9 - 35.2 g/dL [facility] MCV (RBC) [Entitic vol] 81.7 fL 81.0 - 99.0 fL [facility] MONOCYTES ABSOLUTE AUTO 0.9 High N [facility] Monocytes/100 WBC (Bld) 7.6 % 1.7 - 12.0 % [facility] NEUTROPHILS ABSOLUTE AUTO 8.2 High [facility] Neutrophils/100 WBC (Bld) 66.9 % 43.0 - 75.0 % [facility] Platelet mean volume (Bld) [Entitic vol] 10 fL 9.5 - 13.5 fL [facility] EO # 0.3 [facility] PLT 238 [facility] RBC 4.8 [facility] WBC 12.3 High [facility] US OB BPP W NON-STRESS on 10-17-2024 [place] [address] Ultrasound Report Signed Patient: SABRINA RICHMOND MR#: [id number] : 1995 Acct:[id number] Age/Sex: 29 / F ADM Date: 10/17/24 Loc: [facility] 250-[address]: Zack Ortiz D.O. Ordering Physician: Zack Ortiz D.O. Date of Service: 10/17/24 Procedure(s): US OB BPP w non-stress Accession Number(s): [id number] cc: Zack Ortiz D.O.; Physician,Non-Staff M.DNathalia [facility] [place] [address] Patient Name: SABRINA RICHMNOD MRN: [id number] date: 1995 Sex: F Assigned Patient Location: [facility] Current Patient Location: [facility] Accession/Order Number: [id number] Exam Date: 10/17/2024 10:30 Report Date: 10/17/2024 [...] Kee M.D. 10/17/2024 11:04 AM Dictation Location: [place] [address] Electronically authenticated by: [id number] Y Date: 10/17/2024 11:04 Dictated By: Jane Kee M.D. Signed By: 10/17/24 1107 DD/ 1104 TD/TT: Web Applications Developer: [facility] Radiology, Radiologist, MD - 10/17/2024 [place] [address] Ultrasound Report Signed Patient: SABRINA RICHMOND MR#: [id number] : 1995 Acct:[id number] Age/Sex: 29 / F ADM Date: 10/17/24 Loc: [facility] 250-[address]: Zack Ortiz D.O. Ordering Physician: Zack Ortiz D.O. Date of Service: 10/17/24 Procedure(s): US OB BPP w non-stress Accession Number(s): [id number] cc: Zack Ortiz D.O.; Physician,Non-Staff James The [place] [id number] Patient Name: SABRINA RICHMOND MRN: [facility]:[id number] date: 1995 Sex: F Assigned Patient Location: [facility] Current Patient Location: [facility] Accession/Order Number: [id number] Exam Date: 10/17/2024 10:30 Report Date: 10/17/2024 [...] This is in low-normal range. Total score: 8/ US/US OB BPP w non-stress IMPRESSION: NORMAL BIOPHYSICAL PROFILE Impression dictated by: Jane Kee M.D. 10/17/2024 11:04 AM Dictation Location: [place] Electronically authenticated by: [id number] Y Date: 10/17/2024 11:04 Dictated By: Jane Kee M.D. Signed By: 10/17/24 1107 DD/ 1104 TD/TT: Web Applications Developer: [facility] Radiology Study observation (narrative) [facility] OB BPP W NON-STRESS Ordered By: Radiologist Radiology on 10-17-2024 [facility] Work Phone: Urinalysis macro (dipstick) panel (U)on 10-17-2024 Bilirubin, UA Negative Negative - 4(70) +++ mg/dL [facility] Blood, UA Negative Negative - 50 Yossi/mcL [facility] Clarity, UA Clear [facility] Color, UA Yellow [facility] Glucose, UA Negative Negative - 1999(110) ++++ mg/dL [facility] Interpretation and review of laboratory results Abnormal [facility] Ketones, UA Negative Negative - 160(16) ++++ mg/dL [facility] Leukocytes, UA Positive Negative - 500+++ Wild/mcL [facility] Comment on above: 2+ Nitrite, UA Negative Negative - Positive [facility] pH, UA 1 5 - 9 [facility] Protein, UA Positive Negative - 2000(20) ++++ mg/dL [facility] Comment on above: 1+ Spec Grav, UA 1 1 - 1.03 [facility] Urobilinogen, UA 1.0 0.2 - 12 mg/dL [facility] US OB BPP W NON-STRESS on 10-10-[address] [address] Ultrasound Report Signed Patient: SABRINA RICHMOND MR#: [id number] : 1995 Acct:[id number] Age/Sex: 29 / F ADM Date: 10/10/24 Loc: [facility] 250-[address]: Zack Ortiz D.O. Ordering Physician: Zack Ortiz D.O. Date of Service: 10/10/24 Procedure(s): US OB BPP w non-stress Accession Number(s): [id number] cc: Zack Ortiz D.O.; Physician,Non-Staff [place] [id number] Patient Name: SABRINA RICHMOND MRN: [id number] date: 1995 Sex: F Assigned Patient Location: [facility] Current Patient Location: [facility] Accession/Order Number: [id number] Exam Date: 10/10/2024 14:02 Report Date: 10/10/2024 14:29 At the request of: ZACK ORTIZ DO Procedure: US OB BPP w non-stress Biophysical profile. Reason for exam: Gestational diabetes COMPARISON: 10/03/2024 TECHNIQUE: Transabdominal imaging of the gravid uterus was obtained. FINDINGS: The dye weigher reports a BPP of 8 out of 8. SCOOTER is normal at 11.7 cm. heart rate 134 bpm. US/US OB BPP w non-stress IMPRESSION: BPP 8 out of 8. Impression dictated by: Kahlil Voss Jr., D.O. 10/10/2024 2:29 PM Dictation Location: [place] [address] Electronically authenticated by: [id number] Y Date: 10/10/2024 14:29 Dictated By: Kahlil Voss M.D. Signed By: 10/10/24 1432 DD/ 1429 TD/TT: Web Applications Developer: [facility] Radiology, Radiologist, - 10/10/[address] [address] Ultrasound Report Signed Patient: SABRINA RICHMOND MR#: [id number] : 1995 Acct:[id number] Age/Sex: 29 / F ADM Date: 10/10/24 Loc: [facility] 250-[address]: Zack Ortiz D.O. Ordering Physician: Zack Ortiz D.O. Date of Service: 10/10/24 Procedure(s): US OB BPP w non-stress Accession Number(s): [id number] cc: Zack Ortiz D.O.; Physician,Non-Staff James [facility] [place] [id number] Patient Name: SABRINA RICHMOND MRN: [id number] date: 1995 Sex: F Assigned Patient Location: [facility] Current Patient Location: [facility] Accession/Order Number: [id number] Exam Date: 10/10/2024 14:02 Report Date: 10/10/2024 14:29 At the request of: ZACK ORTIZ DO Procedure: US OB BPP w non-stress Biophysical profile. Reason for exam: Gestational diabetes COMPARISON: 10/03/2024 TECHNIQUE: Transabdominal imaging of the gravid uterus was obtained. FINDINGS: The dye weigher reports a BPP of 8 out of 8. SCOOTER is normal at 11.7 cm. heart rate 134 bpm. US/US OB BPP w non-stress IMPRESSION: BPP 8 out of 8. Impression dictated by: Kahlil Voss Jr., D.O. 10/10/2024 2:29 PM Dictation Location: [place] [address] Electronically authenticated by: [id number] Y Date: 10/10/2024 14:29 Dictated By: Kahlil Voss M.D. Signed By: 10/10/24 1432 DD/ 1429 TD/TT: Web Applications Developer: [facility] Radiology Study observation (narrative) [facility] US OB BPP W NON-STRESS Ordered By: Radiologist Radiology on 10-10-2024 [facility] Work Phone: Urinalysis macro (dipstick) panel (U)on 10-08-2024 Bilirubin, UA Negative Negative - 4(70) +++ mg/dL [facility] Blood, UA Negative Negative - 50 Yossi/mcL [facility] Clarity, UA Clear [facility] Color, UA Yellow [facility] Glucose, UA Negative Negative - 1999(110) ++++ mg/dL [facility] Interpretation and review of laboratory results Abnormal [facility] Ketones, UA Negative Negative - 160(16) ++++ mg/dL [facility] Leukocytes, UA Negative Negative - 500+++ Wild/mcL [facility] Nitrite, UA Negative Negative - Positive [facility] pH, UA 6 5 - 9 [facility] Protein, UA Negative Negative - 1999(20) ++++ mg/dL [facility] Spec Grav, UA 1.03 1 - 1.03 [facility] Urobilinogen, UA 1.0 0.2 - 12 mg/dL [facility] ALL BUNon 10-04-2024 Urea nitrogen [Mass/Vol] 6 mg/dL Low 7.0 - 18.0 mg/dL [facility] ALL URIC ACIDon 10-04-2024 Urate [Mass/Vol] 5.4 mg/dL 2.6 - 6.0 mg/dL [facility] 10-04-2024 ALT [Catalytic activity/Vol] 14 U/L 14 - 59 U/L [facility] 10-04-2024 AST [Catalytic activity/Vol] 14 U/L Low 15 - 37 U/L [facility] No Panel Informationon 10-04 Interpretation and review of laboratory results Abnormal [facility] CREATININEon 10-04-2024 Creatinine [Mass/Vol] 0.75 mg/dL 0.55 - 1.02 mg/dL [facility] GFR/1.73 sq M.predicted CKD-EPI (S/P/Bld) [Vol rate/Area] >60 >=60 mL/min/1.73m 2 [facility] EGFR-NON AF [place] >60 >=60 mL/min/1.73m 2 [facility] ALL URIC ACIDon 10-03-2024 Urate [Mass/Vol] 5.3 mg/dL 2.6 - 6.0 mg/dL [facility] [facility] Basic Metabolic Panelon 09-15 Creatinine [Mass/Vol] 0.8 mg/dL 0.5 - 1.1 mg/dL [facility] CBC and differentialon 10-03 Neutrophils (Bld) [#/Vol] 11.9 10*3/uL Abnormal 1.30 - 8.30 10*3/uL [facility] WBC (Bld) [#/Vol] 15.2 10*3/mL Abnormal 3.3 - 10.0 10*3/mL [facility] 10-03-2024 ALT [Catalytic activity/Vol] 14 U/L 14 - 59 U/L [facility] 10-03-2024 Interpretation and review of laboratory results Abnormal [facility] Laboratory - Chemistry and C hemistry - challengeon 10-03-2024 AST [Catalytic activity/Vol] 13 U/L 13 - 35 U/L [facility] Urea nitrogen [Mass/Vol] 10 mg/dL 4 - 21 mg/dL [facility] No Panel Informationon 10-03 [facility] Interpretation and review of laboratory results Abnormal [facility] CREATININEon 10-03-2024 Creatinine [Mass/Vol] 0.84 mg/dL 0.55 - 1.02 mg/dL [facility] GFR/1.73 sq M.predicted CKD-EPI (S/P/Bld) [Vol rate/Area] >60 >=60 mL/min/1.73m 2 [facility] EGFR-NON AF MONTSERRATIAN >60 >=60 mL/min/1.73m 2 [facility] US OB BPP W NON-STRESS on 10-03-2024 [place] [address] Ultrasound Report Signed Patient: SABRINA RICHMOND MR#: [id number] : 1995 Acct:[id number] Age/Sex: 29 / F ADM Date: Loc: [facility] 251-[address]: Zack Ortiz D.O. Ordering Physician: Zack Ortiz D.O. Date of Service: 10/03/24 Procedure(s): US OB BPP w non-stress Accession Number(s): [id number] cc: Zack Ortiz D.O.; Physician,Non-Staff [place] [id number] Patient Name: SABRINA RICHMOND MRN: [facility]:[id number] date: 1995 Sex: F Assigned Patient Location: [facility] Current Patient Location: [facility] Accession/Order Number: [id number] Exam Date: 10/03/2024 17:45 Report Date: 10/03/2024 [...] 10/03/2024 5:46 PM Dictation Location: [place] [address] Electronically authenticated by: [id number] Y Date: 10/03/2024 17:46 Dictated By: Robi Tan D.O. Signed By: 10/03/241747 DD/ 45 TD/TT: Web Applications Developer: [facility] Radiology, Radiologist, MD - 10/03/2024 The [place] [id number] Ultrasound Report Signed Patient: SABRINA RICHMOND MR#: [id number] : 1995 Acct:[id number] Age/Sex: 29 / F ADM Date: Loc: [facility] 251-[address]: Zack Ortiz D.O. Ordering Physician: Zack Ortiz D.O. Date of Service: 10/03/24 Procedure(s): US OB BPP w non-stress Accession Number(s): [id number] cc: Zack Ortiz D.O.; Physician,Non-Staff [place] [address] Patient Name: SABRINA RICHMOND MRN: [id number] date: 1995 Sex: F Assigned Patient Location: [facility] Current Patient Location: [facility] Accession/Order Number: [id number] Exam Date: 10/03/2024 17:45 Report Date: 10/03/2024 [...] 10/03/2024 5:46 PM Dictation Location: [place] [address] Electronically authenticated by: [id number] Y Date: 10/03/2024 17:46 Dictated By: Robi Tan D.O. Signed By: 10/03/241747 DD/ 45 TD/TT: Web Applications Developer: [facility] Radiology Study observation (narrative) [facility] US OB BPP W NON-STRESS Ordered By: Radiologist Radiology on 10-03-2024 [facility] Work Phone: US OB [...] at 04-Oct-2024 08:06:58 AM [facility] Normal Not Available Comment on above: Order Comment: US OB SCAN FOR GROWTH Estimated Date of Delivery: 12/06/24 Gestational Age as of 09/17/2024: 28w4d Urinalysis macro (dipstick) panel (U)on 10-03-2024 Bilirubin, UA Negative Negative - 4(70) +++ mg/dL [facility] Blood, UA Negative Negative - 50 Yossi/mcL [facility] Clarity, UA Clear [facility] Color, UA Yellow [facility] Glucose, UA Negative Negative - 2000(110) ++++ mg/dL [facility] Ketones, UA Negative Negative - 160(16) ++++ mg/dL [facility] Leukocytes, UA Positive Negative - 500+++ Wild/mcL [facility] Comment on above: 2+ Nitrite, UA Negative Negative - Positive [facility] pH, UA 6 5 - 9 [facility] Protein, UA Negative Negative - 2000(20) ++++ mg/dL [facility] Spec Grav, UA 1.01 1 - 1.03 [facility] Urobilinogen, UA 0.2 0.2 - 12 mg/dL [facility] US OB LIMITED 1+ FETUSESon 0 08-29-2024 [...] GDLNon AGE GDLN ACOG TESTING Note . [facility] Comment on above: TESTS RESULT FLAG UN ITS REF RANGE LAB Clinician Provided Cytology Information Source.............Cervix No. of containers..01 ThinPrep Vial Age Algo ACOG Haydee... FLAG LEGEND: L-Low Normal,H-High Normal,LL-Alert Low,HH-Alert High <-Panic Low,>-Panic High,A-Abnormal,AA-Critical Abnormal Performed at: 01 =[address] [id number] Glory Schaffer MD, HPV APTIMA Negative Negative [facility] Comment on above: This nucleic acid am plification test detects fourteen high- risk HPV types (16,18,31,33,35,39,45,51,52,56,58,59,66,68) without differentiation. Performed at: =[address] [id number] Melter Operator: Glory Schaffer MD, Phone: [phone] Performed at: [address] [id number] Melter Operator: Glory Schaffer MD, Phone: [phone] IGP, APTIMA HPV, RFX 16/18,45 Note . [facility] Comment on above: TESTS RESULT FLAG UN ITS REF RANGE LAB DIAGNOSIS: 02 NEGATIVE FOR INTRAEPITHELIAL LESION OR MALIGNANCY. Specimen adequacy: 02 Satisfactory for evaluation. No endocervical component is identified. Performed by: 02 Tai Darling, Inside Plant Supervisor (ASCP) . 02 Note: Note 02 The [...] High,A-Abnormal,AA-Critical Abnormal Performed at: 02 [address] [facility] [address] [facility] [address] Glory Schaffer MD, BRUSH-SPATULA CERVIX [facility] RECURRENT VAGINITIS (HTRX)on 08-21-2024 ATOPOBIUM VAGINAE 0 [facility] ATOPOBIUM VAGINAE Not detected [facility] BVAB 2,3 (BACTERIAL VAGINOSIS ASSOCIATED BACTERIA 2, 3); MOBILUNCUS SPP 0 [facility] BVAB 2,3 (BACTERIAL VAGINOSIS ASSOCIATED BACTERIA 2, 3); MOBILUNCUS SPP Not detected [facility] FORREST ALBICANS, PARAPSILOSIS, TROPICALIS 0 [facility] FORREST ALBICANS, PARAPSILOSIS, TROPICALIS Not detected [facility] FORREST GLABRATA 0 [facility] FORREST GLABRATA Not detected [facility] FORREST KRUSEI 0 [facility] FORREST KRUSEI Not detected [facility] CHLAMYDIA TRACHOMATIS 0 [facility] CHLAMYDIA TRACHOMATIS Not detected N [facility] GARDNERELLA VAGINALIS 0 [facility] GARDNERELLA VAGINALIS Not detected N [facility] MEGASPHAERA (TYPES 1, 2) 0 [facility] MEGASPHAERA (TYPES 1, 2) Not detected [facility] MYCOPLASMA GENITALIUM 0 [facility] MYCOPLASMA GENITALIUM Not detected N [facility] NEISSERIA GONORRHOEAE 0 [facility] NEISSERIA GONORRHOEAE Not detected N [facility] TRICHOMONAS VAGINALIS 0 [facility] TRICHOMONAS VAGINALIS Not detected N [facility] Urinalysis macro (dipstick) panel (U)on 08-20-2024 Bilirubin, UA Negative Negative - 4(70) +++ mg/dL [facility] Blood, UA Negative Negative - 50 Yossi/mcL [facility] Clarity, UA Clear [facility] Color, UA Yellow [facility] Glucose, UA Negative Negative - 1999(110) ++++ mg/dL [facility] Interpretation and review of laboratory results Normal [facility] Ketones, UA Negative Negative - 160(16) ++++ mg/dL [facility] Leukocytes, UA Negative Negative - 500+++ Wild/mcL [facility] Nitrite, UA Negative Negative - Positive [facility] pH, UA 7 5 - 9 [facility] Protein, UA Negative Negative - 1999(20) ++++ mg/dL [facility] Spec Grav, UA 1.015 1 - 1.03 [facility] Urobilinogen, UA 0.2 0.2 - 12 mg/dL [facility] Urinalysis macro (dipstick) panel (U)on 07-24-2024 Bilirubin, UA Negative Negative - 4(70) +++ mg/dL [facility] Blood, UA Negative Negative - 50 Yossi/mcL [facility] Clarity, UA Clear [facility] Color, UA Yellow [facility] Glucose, UA Negative Negative - 2000(110) ++++ mg/dL [facility] Interpretation and review of laboratory results Normal [facility] Ketones, UA Negative Negative - 160(16) ++++ mg/dL [facility] Leukocytes, UA Negative Negative - 500+++ Wild/mcL [facility] Nitrite, UA Negative Negative - Positive [facility] pH, UA 6.5 5 - 9 [facility] Protein, UA Negative Negative - 1999(20) ++++ mg/dL [facility] Spec Grav, UA 1.025 1 - 1.03 [facility] Urobilinogen, UA 0.2 0.2 - 12 mg/dL [facility] US OB 14+ WEEKS ANATOMY SCAN on [...] II, MD, PHD at 25-Jul-2024 08:22:22 AM [facility] Normal Not Available Comment on above: Order Comment: US OB ANATOMY SINGLE W US OB CERVICAL LENGTH Estimated Date of Delivery: 12/06/24 Gestational Age as of 06/18/2024: 15w4d Urinalysis macro (dipstick) panel (U)on 06-18-2024 Bilirubin, UA Negative Negative - 4(70) +++ mg/dL [facility] Blood, UA Negative Negative - 50 Yossi/mcL [facility] Clarity, UA Clear [facility] Color, UA Yellow [facility] Glucose, UA Negative Negative - 2000(110) ++++ mg/dL [facility] Interpretation and review of laboratory results Normal [facility] Ketones, UA Negative Negative - 160(16) ++++ mg/dL [facility] Leukocytes, UA Trace Negative - 500+++ Wild/mcL [facility] Nitrite, UA Negative Negative - Positive [facility] pH, UA 7 5 - 9 [facility] Protein, UA Negative Negative - 2000(20) ++++ mg/dL [facility] Spec Grav, UA 1.01 1 - 1.03 [facility] Urobilinogen, UA 0.2 0.2 - 12 mg/dL [facility] DRUG SCREEN RAPID (URINE )on 05-28-2024 AMPHETAMINE SCREEN URINE Negative NEGATIVE [facility] BARBITURATES SCREEN URINE Negative NEGATIVE [facility] BENZODIAZEPINES SCREEN URINE Negative NEGATIVE [facility] BUPRENORPHINE SCREEN URINE Negative NEGATIVE [facility] Comment on above: DRUG [...] 300 ng/mL CANNABINOID SCREEN URINE Negative NEGATIVE [facility] COCAINE SCREEN URINE Negative NEGATIVE [facility] METHADONE SCREEN URINE Negative NEGATIVE NO [facility] METHAMPHETAMINES SCREEN URINE Negative NEGATIVE [facility] OPIATE SCREEN URINE Negative NEGATIVE [facility] OXYCODONE SCREEN URINE Negative NEGATIVE NO [facility] PHENCYCLIDINE SCREEN URINE Negative NEGATIVE [facility] TRICYCLIC ANTIDEPRESSANT URINE Negative NEGATIVE [facility] BOX TESTon 05-24-2024 BOX TEST SENT OUT [facility] BOX1 [facility] BOX2 05/24/24 [facility] HCG ( test) Ql (U)o n 05-22-2024 Interpretation and review of laboratory results Abnormal [facility] Preg Test, Ur Positive Negative [facility] US Pelvis transvaginalon EXAM: US [...] II, MD, PHD at 20-May-2024 10:38:05 PM [facility] Una Webber MD - 05/20/2024 EXAM: [...] II, MD, PHD at 20-May-2024 10:38:05 PM [facility] US Pelvis transvaginalOrdere d By: Una Webber on 05-20-2024 [facility] Work Phone: US OB TRANSVAGINALon 025 US [...] II, MD, PHD at 20-May-2024 10:38:05 PM [facility] Normal Not Available Comment on above: Order Comment: US OB TRANSVAGINAL No LMP recorded. US Pelvis transvaginalon Radiology Study observation (narrative) [facility] Ambulatory Visit Summaryon 0 [...] day asthma Refills: 2 Pickup at [facility]/pharmacy #[id number] New predniSONE (predniSONE 10 mg Tab) See instructions asthma take 2 tabs by mouth for 3 days, then take 1 tab by mouth for 3 days, then stop Pickup at [facility]/pharmacy #[id number] Unchanged albuterol (Albuterol (Eqv-ProAir HFA) 90 mcg/ inh inhalation aerosol) Inhalation Every 6 hours Unchanged albuterol (Ventolin HFA 90 mcg/ inh Aerosol-Adpt) 1 Puffs Inhalation Every 6 hours as needed for for wheezing Unchanged meclizine (meclizine 25 mg Tab) 1 Tablets By Mouth 3 times a day as needed for for dizziness Unchanged Non-Formulary Medication ( Vitamins) Pharmacy Information [facility]/pharmacy #[id number]: [address] [place], [place] [phone] Allergies No Known Allergies Problems Ongoing - [...] choosing us for your care. Normal [facility] Family Medicine Office/Clini c Noteon 04-27-2024 [...] mL, Inhalation, QID, 30 EA, Refill(s) 2, [facility]/pharmacy #[id number], 165, cm, 04/27/24 9:52:00 EDT, Height/Length Dosing, 126, kg, 04/27/24 9:52:00 EDT, Weight Dosing predniSONE, See Instructions, take 2 tabs by mouth for 3 days, then take 1 tab by mouth for 3 days, then stop, # 9 tab(s), Refills(s) 0, Pharmacy: [facility]/pharmacy #[id number], 165, cm, 04/27/24 9:52:00 EDT, Height/Length [...] # 9 tab(s), Refills(s) 1, Pharmacy: [facility]/pharmacy #[id number], 165, cm, 07/06/23 8:52:00 EDT, Height/Length [...] virus vac (more content not included)... Normal [facility] Comment on above: Result Comment: Elec tronically Signed By: JOAQUÍN RODRIGUEZ\.br\Date and Time Signed: 04/27/24 10:37 EDT ED Clinical Summaryon 2024 ED Clinical Summary ED Clinical Summary [place] [id number] ED Clinical Summary Person Information Name: SABRINA RICHMOND [facility] Age: 28 Years : 1995 Sex: Female Language: Hebrew PCP: JOAQUÍN RODRIGUEZ Marital Status: Phone: [phone] Visit Id: Visit Reason: Weakness or fatigue; [...] 14:10:02 04/18/2024 14:10:02 04/18/2024 14:10:02 ADDRESS: [address] [place] [phone] PHYS DOC NOTES: MEDICAL INFORMATION: Prescriptions Given: New Medications [id number], [address] [place], [place] [phone], [phone] amoxicillin (amoxicillin 500 mg Cap) 2 Capsules [...] PATIENT EDUCATION INFORMATION: Instructions: Community-Acquired Pneumonia, Adult, Ktyn-vt-Frqf Follow up: With: Address: When: REY ALAS [address] [place] [address] Business (1) In 3 days 04/21/2024 Comments: Call Dr for diagnosis based follow up DIAGNOSIS: Pneumonia Normal [facility] ED Note-Physicianon 04-19-19 ED Note-Physician ED [...] and Complexity of Problems Differential Diagnosis: [] [facility] Data External documents reviewed: [] My EKG [...] understanding and agreeable to plan moving forward. IMark PA-C had a eoif-ld-xdte interaction with the patient. I personally performed a physical exam and medical decision making. I have verified the documentation by the student as accurately representing the information obtained. Shared decision making: [] Code status: [] Assessment/Plan Pneumonia (J18.9: Pneumonia, unspecified organism) Orders: albuterol, 1 puff(s), Inhalation, q6hr for wheezing, 18 gram, Refill(s) 0, [facility]/pharmacy #[id number], 165, cm, 04/18/24 11:46:00 EST, Height/Length Dosing, 124.5, kg, 04/18/24 11:46:00 EST, Weight Dosing amoxicillin, 1,000 mg = 2 cap(s), Oral, q12hr, X 7 day(s), # 28 cap(s), Refills(s) 0, Pharmacy: [facility]/pharmacy #[id number], 165, cm, 04/18/24 11:46:00 EST, Height/Length Dosing, 124.5, kg, 04/18/24 11:46:00 EST, Weight Dosing Influenza A&B Ag Rapid COVID Antigen ([facility] Disposition Plan Patient Discharge Condition stable Discharge Disposition to home Discharge Prescription List Prescriptions amoxicillin 500 mg Cap, 1000 mg= 2 cap(s), Oral, q12hr Ventolin HFA 90 mcg/inh Aerosol-Adpt, 1 puff(s), Inhalation, q6hr, PRN Follow-up With When Contact Information REY ALAS In 3 days 04/21/2024 EST [address] [place] [address]- Business (1) Additional Instructions: Call Dr for diagnosis based follow up Patient Education Community-Acquired Pneumonia, Adult, Qesz-qs-Rtmp Attestation Patient seen and evaluated by the physician commercial lines account assistant. Attending physician was present in the emergency department and supervised care. This visit was performed by both the physician and an APC. I performed all aspects of the MDM as documented. This report was transcribed using voice recognition software. Every effo (more content not included)... Normal [facility] Comment on above: Result Comment: Elec tronically Signed By: Alva Jo M.D.\.br\Date and Time Signed: 04/18/24 18:02 EST\.br\Electronically Co-Signed By: Mark Jackman PA-C\.br\Date and Time Co-Signed: 04/18/24 16:19 EST ED Patient Summaryon 025 ED Patient Summary ED Patient Summary [place] [id number] Patient Discharge Instructions Person Information Name: SABRINA RICHMOND Age: 28 Years Arrival Date: 04/18/2024 11:36:25 Discharge Diagnosis: Pneumonia Primary Care Physician: JOAQUÍN RODRIGUEZ Provider Information Primary Provider: Alva Jo M.D. [employer] Worker:Mark Jackman PA-C The exam and treatment you received in the Emergency Department were for an urgent problem and are not intended as complete care. It is important that you follow up with a doctor, nurse practitioner, or physician???s commercial lines account assistant for ongoing care. If your symptoms become worse or you do not improve as expected and you are unable to reach your usual health care provider, you should return to the Emergency Department. We are available 24 hours a day. BASILIOLYNDAH Princess has been given the following list of patient education materials, prescriptions and follow-up instructions: Follow-up Instructions: With: Address: When: REY ALAS [address] [place] [address] Business (1) In 3 days 04/21/2024 Comments: Call for diagnosis based follow up In the event that this physician does not participate in your insurance network, please consult with your insurance company to find a nearby participating provider. Patient Education Materials: Community-Acquired Pneumonia, Adult, Wqia-yz-Owuz A MESSAGE TO ALL PATIENTS REGARDING OPIOIDS PRESCRIPTION OPIOIDS: WHAT YOU NEED TO KNOW Prescription opioids can be used to help relieve ipygauvd-ao-ssbyfa pain and are often prescribed following a [...] If you (more content not included)... Normal [facility] Influenza A&B Agon Influenzae A Ag Negative Normal Negative [facility] Comment on above: Performed By: #### 1 [id number] #### [facility] [address] [place] [address] Influenzae B Ag Negative Normal Negative [facility] Comment on above: Result Comment: Test sensitivity and specificity vary for age group, specimen type, antigen types, and prevalence of disease. Test results must be evaluated in conjunction with other clinical data available to the physician. Individuals who received nasally administered Influenza A vaccine may have positive test results up to 3 days after vaccination. Performed By: #### 1 [id number] #### [facility] [address] [place] [address] MICRO OTHER TESTSOrdered By: Mary Sears on 04-18-2024 Influenzae A Ag Negative (04/18/24 12:06 PM) Normal Negative [facility] Influenzae B Ag Negative 1 (04/18/24 12:06 PM) Normal Negative [facility] Comment on above: Interpretive Data: [...] NEG Ctl Pass (04/18/24 12:06 PM) Normal [facility] Rapid COV Int POS Ctl Pass (04/18/24 12:06 PM) Normal [facility] Sero SARS-CoV+SARS-CoV-2 (COVID-19) Ag IA.rapid Ql (Resp) Not Detected 2 (04/18/24 12:06 PM) Normal Not Detected [facility] Comment on above: Interpretive Data: Gini he Glass Veritor System for Rapid Detection of SARS-CoV-2 [...] COV Int NEG Ctl Pass Normal [facility] Comment on above: Performed By: #### 2 [id number] #### [facility] [address] [place] [address] Rapid COV Int POS Ctl Pass Normal [facility] Comment on above: Performed By: #### 2 [id number] #### [facility] [address] [place] [address] SARS-CoV+SARS-CoV-2 (COVID-19) Ag IA.rapid Ql (Resp) Not detected Normal Not Detected [facility] Comment on above: Result Comment: The Ener1??? System for Rapid Detection of SARS-CoV-2 is [...] or revoked sooner. Performed By: #### 2 [id number] #### [facility] [address] [place] [address] MRI Brain w/ + w/o Contrasto n [...] Signature): 10/23/2023 10:27 am Signed by: Carlos Miarnda MD Transcribed by: MARY JANE Technologist: KARY Technical Comments [employer] Contrast amount in ml's: 10 Normal [facility] Ambulatory Visit Summaryon 0 10-10-2023 Ambulatory [...] 2:00 PM EDT With: JOAQUÍN RODRIGUEZ Where: [facility] [address] [place] [address]- You Need to Complete the Following MRI Brain w/ + w/o Contrast, 10/10/23, Routine, Order for Future Visit, Transport Mode: Ambulatory, Reason: Headache, No, No, Intractable migraine with aura Complicated migraine, pp_set_radiology_sub specialty, [facility] Someone Will Contact You Regarding These Appointments [facility] External Ambulatory Referral, Dermatology, [facility], 10/10/23 10:54:00 EDT, [facility] Medications What How [...] choosing us for your care. Roxanne [facility] Medicine Office/Clini c Noteon 10-10-2023 [...] Melanocytic nevi, unspecified) Referral to derm. Ordered: [facility] External Ambulatory Referral 2. Migraine (G43.909: Migraine, [...] # 30 tab(s), Refills(s) 3, Pharmacy: [facility]/pharmacy #6173, 165.1, cm, 07/08/23 12:52:00 EDT, Height/Length [...] No K (more content not included)... Normal [facility] Comment on above: Result Comment: Elec tronically Signed By: JOAQUÍN RODRIGUEZ\.br\Date and Time Signed: 10/10/23 11:33 EDT Consent for Treatmenton 06-15 Consent for Treatment [id number] #1.00TIFF Normal [facility] Discharge Instructionson Discharge Instructions [id number] 5#1.00TIFF Normal [facility] ED Clinical Summaryon 2023 ED Clinical Summary [place] [id number] ED Clinical Summary Person Information Name: SABRINA RICHMOND [facility] Age: 28 Years : 1995 Sex: Female Language: Hebrew PCP: JOAQUÍN RODRIGUEZ Marital Status: Phone: [phone] Visit Id: Visit Reason: Fever; Sinus Pain/Congestion; [...] 14:32:37 07/08/2023 14:32:37 07/08/2023 14:32:37 AD[address]ESS: [address] [facility] [id number] PHYS DOC NOTES: MEDICAL INFORMATION: Prescriptions Given: New Medications [facility]/pharmacy #[id number], [address] [place], [place] [id number], [phone] loratadine-pseudoeph edrine (loratadine-pseudoep hedrine 5 mg-120 mg [...] REY ALAS [address] [place] [address] Offermobi (1) In 3 days 07/11/2023 DIAGNOSIS: Sinus headache; Vertigo Normal [facility] ED Note-Physicianon 07-08-19 ED Note-Physician Basic [...] 10 day(s), 20 tab(s), Refill(s) 0, [facility]/pharmacy #[id number], 165.1, cm, 07/08/23 12:52:00 EDT, Height/Length Dosing, 127, kg, 07/08/23 12:52:00 EDT, Weight Dosing meclizine, 25 mg = 1 tab(s), Oral, TID, PRN for dizziness, # 15 tab(s), Refills(s) 0, Pharmacy: [facility]/pharmacy #[id number], 165.1, cm, 07/08/23 12:52:00 EDT, Height/Length [...] 07/11/2023 EDT [address] [place] [address]- Business (1) Additional Instructions: Patient Education Vertigo [...] made to ensure accuracy, however, inadvertently computerized circuit clerk mistakes may be present. Appropriate healthcare PPE [...] year, 11/07/2019 (more content not included)... [facility] Comment on above: Result Comment: Elec [...] cool or dry air. Medicines ? Take ayco-nyl-bfeifmi and prescription medicines only as told by [...] provider. Document Revised: 01/03/2022 Document Reviewed: 01/03/2022 [employer] Patient Education ? 2022 [employer] Neurology Vertigo Vertigo is the feeling [...] for stabil (more content not included)... Normal [facility] ED Patient Summaryon 024 ED Patient Summary [address] [address] Patient Discharge Instructions Person Information Name: SABRINA RICHMOND Age: 28 Years Arrival Date: 07/08/2023 12:47:49 Discharge Diagnosis: Sinus headache; Vertigo Primary Care Physician: JOAQUÍN RODRIGUEZ Provider Information Primary Provider: Jagdish Dunn DO [employer] Worker:Jarrell King PA-C The exam and treatment you received in the Emergency Department were for an urgent problem and are not intended as complete care. It is important that you follow up with a doctor, nurse practitioner, or physician?s commercial lines account assistant for ongoing care. If your symptoms become worse or you do not improve as expected and you are unable to reach your usual health care provider, you should return to the Emergency Department. We are available 24 hours a day. BASILIOLYNDADoris Sánchez has been given the following list of patient education materials, prescriptions and follow-up instructions: Follow-up Instructions: With: Address: When: REY ALAS [address] [place] [address] Business (1) In 3 days 07/11/2023 In the event that this physician does not participate in your insurance network, please consult with your insurance company to find a nearby participating provider. Patient Education Materials: Vertigo; Sinus Pain A MESSAGE TO ALL PATIENTS REGARDING OPIOIDS PRESCRIPTION OPIOIDS: WHAT YOU NEED TO KNOW Prescription opioids can be used to help relieve jqdwgtvh-bc-vobinz pain and are often prescribed following a [...] be struggling with addiction, tell your health urgent care technician and ask for guidance or call [facility]?S National Helpline at 6-533-035-HELP. v (more content not included)... [facility] Prescriptions/Work Noteson 0 07-08-2023 Prescriptions/Work Notes [id number]#[id number] [facility] XR Chest Single Viewon 07-07 XR [...] JANE Technologist: LAUREEN Technical Comments Radiation Dose: Kar in mGy = na DAP = na [facility] Ambulatory Visit Summaryon 0 07-06-2023 Ambulatory Visit Summary BASILIOLYNDADoris Sánchez :1995 Visit Date:07/06/2023 Ambulatory Visit Instructions [...] 8:40 AM EDT With: JOAQUÍN RODRIGUEZ Where: [facility] Office/Clini c Noteon 07-06-2023 [...] # 9 tab(s), Refills(s) 1, Pharmacy: [facility]/pharmacy #[id number], 165, cm, 07/06/23 8:52:00 EDT, Height/Length Dosing, 125.8, kg, 06/15... 4. Non-smoker (Z78.9: Other specified health status) stable Ordered: sumatriptan, 25 mg = 1 tab(s), Oral, Daily, PRN for migraine headache, may repeat dose after 2 hours up to a maximum of 200 mg in 24 hours, # 9 tab(s), Refills(s) 1, Pharmacy: [facility]/pharmacy #[id number], 165, cm, 07/06/23 8:52:00 EDT, Height/Length [...] influenza vir (more content not included)... [facility] Comment on above: Result Comment: Elec trohiroally Signed By: JOAQUÍN RODRIGUEZ\.tricia\Date and Time Signed: 07/06/23 10:09 EDT Patient [...] these instructions at home: Medicines ? Take hucp-uqv-qsxhfis and prescription medicines only as told by [...] and dr (more content not included)... Normal [facility] CHEMISTRYOrdered By: SYSTEM SYSTEM on 01-11-2023 Anion gap [Moles/Vol] 10 mmol/L Normal 6 - 16 mEq/L F C Remisol Calcium [Mass/Vol] 8.7 mg/dL Low 8.9 - 11. 1 mg/dL [facility] Remisol Chloride [Moles/Vol] 102 mmol/L Normal 101 - 1 11 mmol/L [facility] CO2 [Moles/Vol] 28 mmol/L Normal 21 - 31 mmol/L [facility] Creatinine [Mass/Vol] 1.1 mg/dL Normal 0.5 - 1.3 mg/dL [facility] Remisol GFR/1.73 sq M.predicted among non-blacks MDRD (S/P/Bld) [Vol rate/Area] 70 mL/min/1.73 m2 Normal >=59mL/min/1 .73 m2 [facility] Chem S Comment on above: Interpretive Data: C hronic kidney disease could be indicated at eGFR's of less than 60 mL/min/1.73m2. Kidney failure is indicated at less than 15 mL/min/1.73m2. Glucose [Mass/Vol] 93 mg/dL Normal 55 - 199 mg/dL [facility] Comment on above: Interpretive Data: I [...] 39.2 % Normal 34.0 - 46.0 % [facility] HemeAutoSS Hemoglobin (Bld) [Mass/Vol] 12.8 g/dL Normal [...] Ag Negative (01/06/23 3:06 PM) Normal Negative [facility] Man Sero Influenzae B Ag Negative 1 (01/06/23 3:06 PM) Normal Negative [facility] Man Sero Comment on above: Interpretive Data: [...] NEG Ctl Pass (01/06/23 3:06 PM) Normal [facility] Man Sero Rapid COV Int POS Ctl Pass (01/06/23 3:06 PM) Normal [facility] Sero SARS-CoV+SARS-CoV-2 (COVID-19) Ag IA.rapid Ql (Resp) Not Detected 2 (01/06/23 3:06 PM) Normal Not Detected [facility] Man Sero Comment on above: Interpretive Data: Gini bibiana Glass Veritor System for Rapid Detection of SARS-CoV-2 [...] other viruses or pathogens; and, in the [facility], this test is only authorized [...] 89 mL/min/1.73 m2 Normal >=59mL/min/1 .73 m2 [facility] Chem S Globulin (S) [Mass/Vol] 3.9 g/dL [...] PM) Normal Negative [facility] UA Auto SS [place].plasma/[place]. RBC (Bld) [Mass ratio] 0-3 /HPF Normal [...] [facility] UA Auto SS Urobilinogen Qn (U) 0.9826926 {Juma'U}/dL Normal 0.0 - 1.0 EU/dL [facility] [...] rate/Area] mL/min/1.73 m2 Normal >=59mL/min/1 .73 m2 [facility] Chem S GFR/1.73 sq M.predicted among non-blacks MDRD (S/P/Bld) [Vol rate/Area] mL/min/1.73 m2 Normal >=59mL/min/1 .73 m2 [facility] Chem S Globulin (S) [Mass/Vol] 3.9 g/dL [...] 6.8 fL Normal 6.4 - 10.8 fL [facility] HemeAutoSS Platelets (Bld) [#/Vol] 322.0 E9/L Normal 150. 0 - 500.0 E9/L [facility] HemeAutoSS RBC (Bld) [#/Vol] 5.3 E12/L Normal 4.3 - 5.9 E12/L [facility] HemeAutoSS WBC corrected for nucl RBC Auto (Bld) [#/Vol] 14.2 E9/L High 4.0 - 11.0 E9/L [facility] HemeAutoSS HEMATOLOGYOrdered By: SYSTEM SYSTEM on 02-17-2022 [...] PM) Normal Negative [facility] UA Auto SS [place].plasma/[place]. RBC (Bld) [Mass ratio] 0-3 /HPF Normal [...] [facility] UA Auto SS Urobilinogen Qn (U) 0.8187649 {Juma'U}/dL Normal 0.0 - 1.0 EU/dL [facility] UA Auto SS WBC Auto Ql (U) Negative (02/17/22 7:01 PM) Normal Negative [facility] UA Auto SS WBC LM.HPF (Urine sed) [#/Area] 0-5 /HPF Normal 0-5/HPF [facility] UA Auto SS SEROLOGYOrdered By: Chio garcia on 11-10-2021 HCG.beta subunit (U) [Moles/Vol] Negative Normal [facility] Man Sero URINALYSISOrdered By: Cailin Sanders on [...] PM) Normal Negative [facility] UA Auto SS [place].plasma/[place]. RBC (Bld) [Mass ratio] 0-3 /HPF Normal 0-3/HPF [facility] UA A uto SS Nitrite Ql (U) Negative (11/10/21 12:40 PM) Normal Negative [facility]A Auto SS pH (U) 6.5 *NA* (11/10/21 12:40 PM) Invalid Interpretation Code 5.0 - 9.0 [facility] UA Auto SS Protein (U) [Mass/Vol] Negative (11/10/21 12:40 PM) Normal Negative [facility] Auto SS Specific gravity (U) [Rel density] 1.010 *NA* (11/10/21 12:40 PM) Invalid Interpretation Code 1.005 - 1.030 [facility] UA Auto SS UA Spec Desc Clean Catch (11/10/21 12:40 PM) Normal [facility] UA Auto SS Urobilinogen Qn (U) 0.7347272 {Juma'U}/dL Normal 0.0 - 1.0 EU/dL [facility] UA Auto SS WBC Auto Ql (U) 3+ *ABN* (11/10/21 12:40 PM) Invalid Interpretation Code Negative [facility] UA Auto SS WBC LM.HPF (Urine sed) [#/Area] 16-25 /HPF Invalid Interpretation Code 0-5/HPF [facility] UA Auto SS Basophils Auto (Bld) [#/Vol] Ordered By: PRESLEY TIMMONS on 09-13-2021 Basophils (Bld) [#/Vol] 0.0 10*3/uL 0.0-0.2 [facility] Basophils/100 WBC Auto (Bld) Ordered By: PRESLEY TIMMONS on 09-13-2021 Basophils/100 WBC (Bld) 0.3 % . [facility] Blood hemoglobin measurement (mass/volume)Ordered By: PRESLEY TIMMONS on 09-13-2021 Hemoglobin (Bld) [Mass/Vol] 11.7 g/dL 11.8-15.4 [facility] Blood leukocytes automated c ount (number/volume)Ordered By: PRESLEY TIMMONS on 09-13-2021 WBC (Bld) [#/Vol] 13.1 10*3/uL 4.5-11.0 [facility] Complete Blood Count Auto Di ffon 09-13-2021 Basophils (Bld) [#/Vol] 0.0 10*3/uL Normal 0.0-0.2 [facility] Comment on above: Order Comment: Comme nt Draw at 630 am Result Comment: PERF ORMED BY: [place] [address] PATHOLOGIST SOFTBALL CORE MOLDER SANDY PEREZ M.D. Performed By: #### C BC #### [address] Basophils/100 WBC (Bld) 0.3 % Normal . [facility] Comment on above: Order Comment: Comme nt Draw at 630 am Performed By: #### C BC #### [address] Eosinophils (Bld) [#/Vol] 0.1 10*3/uL Normal 0.0-0.45 [facility] Comment on above: Order Comment: Comme nt Draw at 630 am Performed By: #### C BC #### [address] Eosinophils/100 WBC (Bld) 0.8 % Normal . [facility] Comment on above: Order Comment: Comme nt Draw at 630 am Performed By: #### C BC #### [address] Erythrocyte distribution width (RBC) [Ratio] 15.3 % Normal 11.9-15.3 [facility] Comment on above: Order Comment: Comme nt Draw at 630 am Performed By: #### C BC #### [address] Hematocrit (Bld) [Volume fraction] 35.2 % Normal 34.0-46.4 [facility] Comment on above: Order Comment: Comme nt Draw at 630 am Performed By: #### C BC #### [address] Hemoglobin (Bld) [Mass/Vol] 11.7 g/dL Low 11.8-15.4 [facility] Comment on above: Order Comment: Comme nt Draw at 630 am Performed By: #### C BC #### [address] Lymphocytes (Bld) [#/Vol] 2.4 10*3/uL Normal 1.00-4.8 [facility] Comment on above: Order Comment: Comme nt Draw at 630 am Performed By: #### C BC #### [address] Lymphocytes/100 WBC (Bld) 18.5 % Normal . [facility] Comment on above: Order Comment: Comme nt Draw at 630 am Performed By: #### C BC #### [address] MCH (RBC) [Entitic mass] 27.9 pg Normal 24.7-34.3 [facility] Comment on above: Order Comment: Comme nt Draw at 630 am Performed By: #### C BC #### [address] MCV (RBC) [Entitic vol] 83.6 fL Normal 80-100 [facility] Comment on above: Order Comment: Comme nt Draw at 630 am Performed By: #### C BC #### [address] Mean Corpuscular HGB Conc 33.3 g/dL Normal 32.0-35.0 [facility] Comment on above: Order Comment: Comme nt Draw at 630 am Performed By: #### C BC #### [address] Monocytes (Bld) [#/Vol] 0.9 10*3/uL High 0.0-0.8 [facility] Comment on above: Order Comment: Comme nt Draw at 630 am Performed By: #### C BC #### [address] Monocytes/100 WBC (Bld) 6.5 % Normal . [facility] Comment on above: Order Comment: Comme nt Draw at 630 am Performed By: #### C BC #### [address] Neutrophils (Bld) [#/Vol] 9.7 10*3/uL High 1.8-7.7 [facility] Comment on above: Order Comment: Comme nt Draw at 630 am Performed By: #### C BC #### [facility] [address] [place] [address] [place] Neutrophils/100 WBC (Bld) 73.9 % Normal . [facility] Comment on above: Order Comment: Comme nt Draw at 630 am Performed By: #### C BC #### [facility] [address] [place] [address] [place] Nucleated RBC/100 WBC (Bld) [Ratio] 0.1 % Normal 0-0.5 [facility] Comment on above: Order Comment: Comme nt Draw at 630 am Performed By: #### C BC #### [address] Platelet mean volume (Bld) [Entitic vol] 7.2 fL Normal 6.3-10.7 [facility] Comment on above: Order Comment: Comme nt Draw at 630 am Performed By: #### C BC #### [place] [address] [place] Platelets (Bld) [#/Vol] 237 10*3/uL Normal 150-450 [facility] Comment on above: Order Comment: Comme nt Draw at 630 am Performed By: #### C BC #### [facility] [address] [place] [address] [place] RBC (Bld) [#/Vol] 4.21 10*6/uL Normal 3.60-5.00 [facility] Comment on above: Order Comment: Comme nt Draw at 630 am Performed By: #### C BC #### [facility] [address] [place] [address] [place] WBC (Bld) [#/Vol] 13.1 10*3/uL High 4.5-11.0 [facility] Comment on above: Order Comment: Comme nt Draw at 630 am Performed By: #### C BC #### [address] [place] [address] [facility] Eosinophils Auto (Bld) [#/Vo l]Ordered By: PRESLEY TIMMONS on 09-13-2021 Eosinophils (Bld) [#/Vol] 0.1 10*3/uL 0.0-0.45 [facility] Eosinophils/100 WBC Auto (Bl d)Ordered By: PRESLEY TIMMONS on 09-13-2021 Eosinophils/100 WBC (Bld) 0.8 % . [facility] Erythrocyte distribution wid th Auto (RBC) [Ratio]Ordered By: PRESLEY TIMMONS on 09-13-2021 Erythrocyte distribution width (RBC) [Ratio] 15.3 % 11.9-15.3 [facility] Hematocrit Auto (Bld) [Volum e fraction]Ordered By: PRESLEY TIMMONS on 09-13-2021 Hematocrit (Bld) [Volume fraction] 35.2 % 34.0-46.4 [facility] Laboratory - Hematology and Cell countsOrdered By: PRESLEY TIMMONS on 09-13-2021 Nucleated RBC/100 WBC (Bld) [Ratio] 0.1 % 0-0.5 [facility] Lymphocytes Auto (Bld) [#/Vo l]Ordered By: PRESLEY TIMMONS on 09-13-2021 Lymphocytes (Bld) [#/Vol] 2.4 10*3/uL 1.00-4.8 [facility] Lymphocytes/100 WBC Auto (Bl d)Ordered By: PRESLEY TIMMONS on 09-13-2021 Lymphocytes/100 WBC (Bld) 18.5 % . [facility] MCH Auto (RBC) [Entitic mass ]Ordered By: PRESLEY TIMMONS on 09-13-2021 MCH (RBC) [Entitic mass] 27.9 pg 24.7-34.3 [facility] MCHC Auto (RBC) [Mass/Vol]Or dered By: PRESLEY TIMMONS on 09-13-2021 MCHC (RBC) [Mass/Vol] 33.3 g/dL 32.0-35.0 [facility] MCV Auto (RBC) [Entitic vol] Ordered By: PRESLEY TIMMONS on 09-13-2021 MCV (RBC) [Entitic vol] 83.6 fL 80-100 [facility] Monocytes Auto (Bld) [#/Vol] Ordered By: PRESLEY TIMMONS on 09-13-2021 Monocytes (Bld) [#/Vol] 0.9 10*3/uL 0.0-0.8 [facility] Monocytes/100 WBC Auto (Bld) Ordered By: PRESLEY TIMMONS on 09-13-2021 Monocytes/100 WBC (Bld) 6.5 % . [facility] Neutrophils Auto (Bld) [#/Vo l]Ordered By: PRESLEY TIMMONS on 09-13-2021 Neutrophils (Bld) [#/Vol] 9.7 10*3/uL 1.8-7.7 [facility] Neutrophils/100 WBC Auto (Bl d)Ordered By: PRESLEY TIMMONS on 09-13-2021 Neutrophils/100 WBC (Bld) 73.9 % . [facility] Platelet mean volume Auto (B ld) [Entitic vol]Ordered By: PRESLEY TIMMONS on 09-13-2021 Platelet mean volume (Bld) [Entitic vol] 7.2 fL 6.3-10.7 [facility] Platelets Auto (Bld) [#/Vol] Ordered By: PRESLEY TIMMONS on 09-13-2021 Platelets (Bld) [#/Vol] 237 10*3/uL 150-450 [facility] RBC Auto (Bld) [#/Vol]Ordere d By: PRESLEY TIMMONS on 09-13-2021 RBC (Bld) [#/Vol] 4.21 10*6/uL 3.60-5.00 [facility] Albumin [Mass/volume] in Ser um or PlasmaOrdered By: PRESLEY TIMMONS on 09-12-2021 Albumin [Mass/Vol] 2.3 g/dL 3.2-5.5 [facility] Comprehensive Metabolic Pane brian 09-12-2021 Albumin [Mass/Vol] 2.3 g/dL Low 3.2-5.5 [facility] Comment on above: Performed By: #### C MP #### [address] Albumin/Globulin [Mass ratio] 0.6 {ratio} Normal [facility] Comment on above: Performed By: #### C MP #### [facility] [address] [place] [address] ALP [Catalytic activity/Vol] 183 U/L High 32-92 [facility] Comment on above: Performed By: #### C MP #### [address] ALT [Catalytic activity/Vol] 15 U/L Normal 10-60 [facility] Comment on above: Performed By: #### C MP #### [address] AST [Catalytic activity/Vol] 15 U/L Normal 10-42 [facility] Comment on above: Performed By: #### C MP #### [facility] [address] [place] [address] Bilirubin [Mass/Vol] 0.7 mg/dL Normal 0.3-1.[address] [facility] Comment on above: Performed By: #### C MP #### [address] Calcium [Mass/Vol] 8.7 mg/dL Normal 8.2-10.2 [facility] Comment on above: Performed By: #### C MP #### [address] Chloride [Moles/Vol] 102 mmol/L Normal 95-[address] [facility] Comment on above: Performed By: #### C MP #### [address] CO2 [Moles/Vol] 22.9 mmol/L Normal 22.0-30.0 [facility] Comment on above: Performed By: #### C MP #### [facility] [address] [place] [address] Creatinine [Mass/Vol] 0.69 mg/dL Normal 0.44-1.03 [facility] Comment on above: Performed By: #### C MP #### [facility] [address] [place] [address] [place] Creatinine Clr Calc Pharmacy 152.06 [facility] Comment on above: Result Comment: PERF ORMED BY: [place] [address] PATHOLOGIST SOFTBALL CORE MOLDER SANDY PEREZ M.D. Performed By: #### C MP #### [address] Estimated GFR ( Brenda > 60 [facility] Comment on above: Result Comment: GFR estimated reference range: According to KDOQI guidelines, <60 ml/min/1.73m2 is sufficient to diagnose a patient with chronic kidney disease. Performed By: #### C MP #### [address] Estimated GFR (Non- Am > 60 [facility] Comment on above: Performed By: #### C MP #### [address] Globulin (S) [Mass/Vol] 3.7 g/dL Normal [facility] Comment on above: Performed By: #### C MP #### [address] Glucose [Mass/Vol] 97 mg/dL Normal 70-100 [facility] Comment on above: Result Comment: [place] Glucose Reference Range is dependent on time and content of last meal. Glucose of more than 200 mg/dL in a nonstressed, ambulatory subject supports the diagnosis of Diabetes Mellitus. ADA recommended reference range Performed By: #### C MP #### [address] Potassium [Moles/Vol] 3.6 mmol/L Normal 3.5-5.1 [facility] Comment on above: Performed By: #### C MP #### [address] Protein [Mass/Vol] 6.0 g/dL Low 6.1-7.9 [facility] Comment on above: Performed By: #### C MP #### [address] Sodium [Moles/Vol] 136 mmol/L Normal 136-146 [facility] Comment on above: Performed By: #### C MP #### [facility] [address] [place] [address] [place] Urea nitrogen [Mass/Vol] 6 mg/dL Low 9- [facility] Comment on above: Performed By: #### C MP #### [facility] [address] [place] [address] [place] Creatinine and Glomerular fi ltration rate.predicted panel (S/P/Bld)Ordered By: PRESLEY TIMMONS on 09-12-2021 Creatinine [Mass/Vol] 0.69 mg/dL 0.44-1.03 [facility] Estimated glomerular filtrat ion rate (GFR) non- AmericanOrdered By: PRESLEY TIMMONS on 09-12-2021 GFR/1.73 sq M.predicted among non-blacks MDRD (S/P/Bld) [Vol rate/Area] > 60 mL/Min [facility] Globulin Calc (S) [Mass/Vol] Ordered By: PRESLEY TIMMONS on 09-12-2021 Globulin (S) [Mass/Vol] 3.7 g/dL [facility] No Panel InformationOrdered By: PRESLEY TIMMONS on 09-12-2021 Estimated GFR () > 60 mL/Min [facility] Comment on above: GFR estimated refere nce range: According to KDOQI guidelines, <60 ml/min/1.73m2 is sufficient to diagnose a patient with chronic kidney disease. Pharmacy Creatinine Clearance (Chem 152.06 [facility] Protein [Mass/volume] in Ser um or PlasmaOrdered By: PRESLEY TIMMONS on 09-12-2021 Protein [Mass/Vol] 6.0 g/dL 6.1-7.9 [facility] Serum or plasma alanine hutton otransferase measurement without P-5'-P (enzymatic activiOrdered By: PRESLEY TIMMONS on 09-12-2021 ALT No additional P-5'-P [Catalytic activity/Vol] 15 U/L 10-60 [facility] Serum or plasma albumin/glob ulin mass ratioOrdered By: PRESLEY TIMMONS on 09-12-2021 Albumin/Globulin [Mass ratio] 0.6 {ratio} [facility] Serum or plasma alkaline lamont sphatase measurement (enzymatic activity/volume)Ordered By: PRESLEY TIMMONS on 09-12-2021 ALP [Catalytic activity/Vol] 183 U/L 32-92 [facility] Serum or plasma aspartate am inotransferase measurement (enzymatic activity/volume)Ordered By: PRESLEY TIMMONS on 09-12-2021 AST [Catalytic activity/Vol] 15 U/L 10-42 [facility] Serum or plasma calcium carlie urement (mass/volume)Ordered By: PRESLEY TIMMONS on 09-12-2021 Calcium [Mass/Vol] 8.7 mg/dL 8.2-10.2 [facility] Serum or plasma chloride irwin surement (moles/volume)Ordered By: PRESLEY TIMMONS on 09-12-2021 Chloride [Moles/Vol] 102 mmol/L 95-[address] [facility] Serum or plasma glucose carlie urement (mass/volume)Ordered By: PRESLEY TIMMONS on 09-12-2021 Glucose [Mass/Vol] 97 mg/dL 70-100 [facility] Comment on above: ADA recommended refe rence range Random Glucose Reference Range is dependent on time and content of last meal. Glucose of more than 200 mg/dL in a nonstressed, ambulatory subject supports the diagnosis of Diabetes Mellitus. Serum or plasma potassium me asurement (moles/volume)Ordered By: PRESLEY TIMMONS on 09-12-2021 Potassium [Moles/Vol] 3.6 mmol/L 3.5-5.1 [facility] Serum or plasma sodium measu rement (moles/volume)Ordered By: PRESLEY TIMMONS on 09-12-2021 Sodium [Moles/Vol] 136 mmol/L 136-146 [facility] Serum or plasma total biliru bin measurement (mass/volume)Ordered By: PRESLEY TIMMONS on 09-12-2021 Bilirubin [Mass/Vol] 0.7 mg/dL 0.3-1.[address] [facility] Serum or plasma total carbon dioxide measurement (moles/volume)Ordered By: PRESLEY TIMMONS on 09-12-2021 CO2 [Moles/Vol] 22.9 mmol/L 22.0-30.0 [facility] Serum or plasma urea nitroge n measurement (mass/volume)Ordered By: PRESLEY TIMMONS on 09-12-2021 Urea nitrogen [Mass/Vol] 6 mg/dL 9-23 [facility] Amphetamine Screen Ql (U)Ord ered By: PRESLEY TIMMONS on 09-11-2021 Amphetamines Ql (U) Negative Negative [facility] Barbiturates [Presence] in U rineOrdered By: PRESLEY TIMMONS on 09-11-2021 Barbiturates Ql (U) Negative Negative [facility] Benzodiazepines [Presence] i n UrineOrdered By: PRESLEY TIMMONS on 09-11-2021 Benzodiazepines Ql (U) Negative Negative [facility] Bilirubin Auto test strip Ql (U)Ordered By: PRESLEY TIMMONS on 09-11-2021 Bilirubin Ql (U) Negative Negative [facility] COVID-19 Antigenon 2 COVID-19 Antigen Healthcare [...] signs and symptoms consistent with COVID-19. The [place] SARS Antigen IVET does not differentiate between SARS-CoV and SARS-CoV-2. This test was developed and its performance characteristic determined by [employer] and validated at [facility]. This test has not been FDA cleared [...] for SARS Antigen by IVET PERFORMED BY: [place] [address] PATHOLOGIST SOFTBALL CORE MOLDER SANDY PEREZ M.D. Normal [facility] Comment on above: Performed By: #### C OVID-19 CHANLE, SOFIANEG #### [address] COVID-19 SOFIAOrdered By: TRICIA TIMMONS on 09-11-2021 SARS-CoV+SARS-CoV-2 (COVID-19) Ag IA.rapid Ql (Resp) Negative Negative [facility] Comment on above: This is a duplicate Chanel SARS Antigen (IVET) result to be used for statistical tracking purpose only. Chlamydia trachomatis DNA [P resence] in Specimen by EMMA with probe detectionOrdered By: PRESLEY TIMMONS on 09-11-2021 C. trachomatis DNA EMMA+probe Ql (Unsp spec) Negative Negative [facility] Chlamydia/GC/Trich NAAon Chlamydia Trachomotis, EMMA Negative Normal Negative [facility] Comment on above: Performed By: #### G CCHLAMTRI #### [facility] , Neisseria Gonorrhoeae, EMMA Negative Normal Negative [facility] Comment on above: Performed By: #### G CCHLAMTRI #### [facility] , Trichomonas EMMA Negative Normal Negative [facility] Comment on above: Result Comment: Perf ormed at: =G - [facility] [address] [place] [id number] Melter Operator: Glory Schaffer MD, Phone: [phone] PERFORMED BY: [address] [address] PATHOLOGIST SOFTBALL CORE MOLDER SANDY PEREZ M.D. Performed By: #### G CCHLAMTRI #### [facility] , Complete Blood Count Auto Di ffon 09-11-2021 Basophils (Bld) [#/Vol] 0.1 10*3/uL Normal 0.0-0.2 [facility] Comment on above: Result Comment: PERF ORMED BY: [place] [address] PATHOLOGIST SOFTBALL CORE MOLDER SANDY PEREZ M.D. Performed By: #### R SD W RFX #### [facility] , #### CBC #### [facility] [address] [place] [address] Basophils/100 WBC (Bld) 1.1 % Normal . [facility] Comment on above: Performed By: #### R SD W RFX #### [facility] , #### CBC #### [place] [address] [place] Eosinophils (Bld) [#/Vol] 0.2 10*3/uL Normal 0.0-0.45 [facility] Comment on above: Performed By: #### R SD W RFX #### [facility] , #### CBC #### [facility] [address] [place] [address] Eosinophils/100 WBC (Bld) 1.7 % Normal . [facility] Comment on above: Performed By: #### R SD W RFX #### [facility] , #### CBC #### [facility] [address] [place] [address] Erythrocyte distribution width (RBC) [Ratio] 14.7 % Normal 11.9-15.3 [facility] Comment on above: Performed By: #### R SD W RFX #### [facility] , #### CBC #### [facility] [address] [place] [address] Hematocrit (Bld) [Volume fraction] 37.4 % Normal 34.0-46.4 [facility] Comment on above: Performed By: #### R SD W RFX #### [facility] , #### CBC #### [facility] [address] [place] [address] Hemoglobin (Bld) [Mass/Vol] 12.4 g/dL Normal 11.8-15.4 [facility] Comment on above: Performed By: #### R SD W RFX #### [facility] , #### CBC #### [address] Lymphocytes (Bld) [#/Vol] 2.4 10*3/uL Normal 1.00-4.8 [facility] Comment on above: Performed By: #### R SD W RFX #### [facility] , #### CBC #### [address] Lymphocytes/100 WBC (Bld) 19.6 % Normal . [facility] Comment on above: Performed By: #### R SD W RFX #### [facility] , #### CBC #### [facility] [address] [place] [address] MCH (RBC) [Entitic mass] 28.1 pg Normal 24.7-34.3 [facility] Comment on above: Performed By: #### R SD W RFX #### [facility] , #### CBC #### [facility] [address] [place] [address] MCV (RBC) [Entitic vol] 84.4 fL Normal 80-100 [facility] Comment on above: Performed By: #### R SD W RFX #### [facility] , #### CBC #### [facility] [address] [place] [address] Mean Corpuscular HGB Conc 33.2 g/dL Normal 32.0-35.0 [facility] Comment on above: Performed By: #### R SD W RFX #### [facility] , #### CBC #### [facility] [address] [place] [address] [place] Monocytes (Bld) [#/Vol] 0.8 10*3/uL Normal 0.0-0.8 [facility] Comment on above: Performed By: #### R SD W RFX #### [facility] , #### CBC #### [facility] [address] Monocytes/100 WBC (Bld) 6.6 % Normal . [facility] Comment on above: Performed By: #### R SD W RFX #### [facility] , #### CBC #### [facility] [address] [place] [address] [place] Neutrophils (Bld) [#/Vol] 8.8 10*3/uL High 1.8-7.7 [facility] Comment on above: Performed By: #### R SD W RFX #### [facility] , #### CBC #### [facility] [address] [place] [address] Neutrophils/100 WBC (Bld) 71.0 % Normal . [facility] Comment on above: Performed By: #### R SD W RFX #### [facility] , #### CBC #### [facility] [address] [place] [address] [place] Nucleated RBC/100 WBC (Bld) [Ratio] 0.1 % Normal 0-0.5 [facility] Comment on above: Performed By: #### R SD W RFX #### [facility] , #### CBC #### [facility] [address] [place] [address] Platelet mean volume (Bld) [Entitic vol] 7.4 fL Normal 6.3-10.7 [facility] Comment on above: Performed By: #### R SD W RFX #### [facility] , #### CBC #### [facility] [address] Platelets (Bld) [#/Vol] 256 10*3/uL Normal 150-450 [facility] Comment on above: Performed By: #### R SD W RFX #### [facility] , #### CBC #### [facility] [address] RBC (Bld) [#/Vol] 4.43 10*6/uL Normal 3.60-5.00 [facility] Comment on above: Performed By: #### R SD W RFX #### [facility] , #### CBC #### [facility] [address] [place] [address] WBC (Bld) [#/Vol] 12.4 10*3/uL High 4.5-11.0 [facility] Comment on above: Performed By: #### R SD W RFX #### [facility] , #### CBC #### [facility] [address] [place] [address] Ketones Auto test strip (U) [Mass/Vol]Ordered By: PRESLEY TIMMONS on 09-11-2021 Ketones (U) [Mass/Vol] Negative Negative [facility] - Drug toxicology Ordered By: PRESLEY TIMMONS on 09-11-2021 Opiates Ql (U) Negative Negative [facility] Neisseria gonorrhoeae DNA [P resence] in Specimen by EM[facility] with probe detectionOrdered By: PRESLEY TIMMONS on 09-11-2021 N. gonorrhoeae DNA EMMA+probe Ql (Unsp spec) Negative Negative [facility] No Panel InformationOrdered By: PRESLEY TIMMONS on 09-11-2021 SARS Antigen (LFIA) [facility] OB Urine Drug Screen (NO THC )on 09-11-2021 Amphetamine Screen,Urine Negative Normal Negative [facility] Comment on above: Performed By: #### U A, OBUDS #### [facility] [address] [place] [address] [place] Barbiturate Screen,Urine Negative Normal Negative [facility] Comment on above: Performed By: #### U A, OBUDS #### [facility] [address] [place] [address] [place] Benzodiazepines Screen,Urine Negative Normal Negative [facility] Comment on above: Performed By: #### U A, OBUDS #### [facility] [address] [place] [address] [place] Cocaine Screen,Urine Negative Normal Negative [facility] Comment on above: Performed By: #### U A, OBUDS #### [place] [address] [place] Opiate Screen,Urine Negative Normal Negative [facility] Comment on above: Performed By: #### U A, OBUDS #### [address] Phencyclidine Screen, Urine Negative Normal Negative [facility] Comment on above: Result Comment: Thes e are unconfirmed results and should not be used for legal purposes. Drug Cut-Off Concentration: AMPH 1000 ng/mL DANTE 200 ng/mL DONTA 200 ng/mL COCM 300 ng/mL OP 300 ng/mL PCP 25 ng/mL PERFORMED BY: [place] [address] PATHOLOGIST SOFTBALL CORE MOLDER SANDY PEREZ M.D. Performed By: #### U A, OBUDS #### [address] Phencyclidine Screen Ql (U)O rdered By: PRESLEY TIMMONS on 09-11-2021 Phencyclidine Ql (U) Negative Negative [facility] [place] [facility] Comment on above: These are unconfirme d results and should not be used for legal purposes. Drug Cut-Off Concentration: AMPH 1000 ng/mL DANTE 200 ng/mL DONTA 200 ng/mL COCM 300 ng/mL OP 300 ng/mL PCP 25 ng/mL Protein Auto test strip (U) [Mass/Vol]Ordered By: PRESLEY TIMMONS on 09-11-2021 Protein (U) [Mass/Vol] Negative Negative [facility] RPR w/rfx to Quant TP Abson 09-11-2021 RPR, Rfx Quant RPR Non-Reactive Normal Non Reactive [facility] Comment on above: Result Comment: Perf ormed at: - [facility] [address] [id number] Melter Operator: Surya Hazel PhD, Phone: [phone] PERFORMED BY: [place] [address] PATHOLOGIST SOFTBALL CORE MOLDER SANDY PEREZ M.D. Performed By: #### R SD W RFX #### [facility] , #### CBC #### [facility] [address] [place] [address] [place] Reagin Ab [Presence] in Seru m by RPROrdered By: PRESLEY TIMMONS on 09-11-2021 Reagin Ab RPR Ql (S) Non-Reactive Non Reactive [facility] Comment on above: Performed at: [employer] [facility] [place] [employer] [address] [id number] Melter Operator: Surya Hazel PhD, Phone: [phone] Chanel Ag Negativeon 09-12-19 22 Chanel Ag Negative Negative Normal Negative [facility] Comment on above: Result Comment: This is a duplicate Chanel SARS Antigen (IVET) result to be used for statistical tracking purpose only. PERFORMED BY: [place] [address] PATHOLOGIST SOFTBALL CORE MOLDER SANDY PEREZ M.D. Performed By: #### C OVID-19 CHANEL, SOFIANEG #### [facility] [address] [place] [address] [place] Trichomonas vaginalis DNA [P resence] in Specimen by [facility] with probe detectionOrdered By: PRESLEY TIMMONS on 09-11-2021 T. vaginalis DNA [facility]MA+probe Ql (Unsp spec) Negative Negative [facility] Comment on above: Performed at: =G - L [address] [place], [place] [id number] Melter Operator: Glory Schaffer MD, Phone: [phone] Urinalysison 09-11-2021 Appearance (U) Clear Normal Clear [facility] Comment on above: Order Comment: Name Collection Type:: Voided Performed By: #### U A, OBUDS #### [facility] [address] [place] [id number] [place] Bilirubin,Urine Negative Normal Negative [facility] Comment on above: Order Comment: Name Collection Type:: Voided Performed By: #### U A, OBUDS #### [facility] [address] [place] [address] [place] Color (U) Yellow Normal Yellow [facility] Comment on above: Order Comment: Name Collection Type:: Voided Performed By: #### U A, OBUDS #### [facility] [address] [place] [address] [place] Glucose Ql (U) Normal Normal Normal [facility] Comment on above: Order Comment: Name Collection Type:: Voided Performed By: #### U A, OBUDS #### [facility] [address] [place] [address] [place] Ketones Ql (U) Negative Normal Negative [facility] Comment on above: Order Comment: Name Collection Type:: Voided Performed By: #### U A, OBUDS #### [facility] [address] [place] [id number] [place] Leukocyte esterase Test strip Ql (U) Negative Normal Negative [facility] Comment on above: Order Comment: Name Collection Type:: Voided Performed By: #### U A, OBUDS #### [facility] [address] [place] [id number] [place] Nitrite,Urine Negative Normal Negative [facility] Comment on above: Order Comment: Name Collection Type:: Voided Performed By: #### U A, OBUDS #### [facility] [address] [place], [place] [address] [place] Occult Blood,Urine Negative Normal Negative [facility] Comment on above: Order Comment: Name Collection Type:: Voided Result Comment: PERF ORMED BY: [place] [address] PATHOLOGIST SOFTBALL CORE MOLDER SANDY PEREZ M.D. Performed By: #### U A, OBUDS #### [facility] [address] [place] [address] pH (U) 6.0 [pH] Normal 5.0-9.0 [facility] Comment on above: Order Comment: Name Collection Type:: Voided Performed By: #### U A, OBUDS #### [address] Protein,Urine Negative Normal Negative [facility] Comment on above: Order Comment: Name Collection Type:: Voided Performed By: #### U A, OBUDS #### [address] Specificy [place],Urine 1.015 Normal 1.001-1.030 [facility] Comment on above: Order Comment: Name Collection Type:: Voided Performed By: #### U A, OBUDS #### [place] [address] [place] Urobilinogen,Urine Normal Normal Normal [facility] Comment on above: Order Comment: Name Collection Type:: Voided Performed By: #### U A, OBUDS #### [facility] [address] [place] [address] Urine appearanceOrdered By: PRESLEY TIMMONS on 09-11-2021 Appearance (U) Clear Clear [facility] Urine cocaine detectionOrder ed By: PRESLEY TIMMONS on 09-11-2021 Cocaine Ql (U) Negative Negative [facility] Urine colorOrdered By: PRESLEY TIMMONS on 09-11-2021 Color (U) Yellow Yellow [facility] Urine glucose measurement by automated test strip (mass/volume)Ordered By: PRESLEY TIMMONS on 09-11-2021 Glucose Auto test strip (U) [Mass/Vol] Normal mg/dL Normal [facility] Urine hemoglobin detection b y automated test stripOrdered By: PRESLEY TIMMONS on 09-11-2021 Hemoglobin Auto test strip Ql (U) Negative Negative [facility] Urine leukocyte esterase det ection by automated test stripOrdered By: PRESLEY TIMMONS on 09-11-2021 Leukocyte esterase Auto test strip Ql (U) Negative Negative [facility] Urine nitrite detection by a utomated test stripOrdered By: PRESLEY TIMMONS on 09-11-2021 Nitrite Auto test strip Ql (U) Negative Negative [facility] Urobilinogen Auto test strip (U) [Mass/Vol]Ordered By: PRESLEY TIMMONS on 09-11-2021 Urobilinogen (U) [Mass/Vol] Normal mg/dL Normal [facility] pH Auto test strip (U)Ordere d By: PRESLEY TIMMONS on 09-11-2021 pH (U) 1.015 [pH] 1.001-1.030 [facility] pH (U) 6.0 [pH] 5.0-9.0 [facility] CHEMISTRYOrdered By: SYSTEM SYSTEM on 07-02-2021 Glucose 3 Hr post 75 g glucose PO [Mass/Vol] 59 mg/dL Normal 55 - 140 mg/dL [facility] Remisol Glucose 2 Hr post 75 g glucose PO [Mass/Vol] 100 mg/dL Normal 55 - 155 mg/dL [facility] Remisol Glucose 1 Hr post 75 g glucose PO [Mass/Vol] 169 mg/dL Normal 55 - 180 mg/dL [facility] Remisol Glucose post fast [Mass/Vol] 94 mg/dL Normal 55 - 99 mg/dL [facility] Remisol CHEMISTRYOrdered By: Lab ROP User on 07-02-2021 Glucose [Mass/Vol] 89 mg/dL Normal 55 - 99 mg/dL [facility] POC Subsection POC Device SN [id number] Invalid Interpretation Code [facility] POC Subsection POC User ID [id number] Invalid Interpretation Code [facility] POC Subsection POC Username MYNOR GARCIA Invalid Interpretation Code [facility] POC Subsection URINALYSISOrdered By: Binh Gilliam on 06-13-2021 Bacteria LM Ql (Urine sed) 2+ /HPF Invalid Interpretation Code Trace/HPF [facility] UA Auto SS Bilirubin Ql (U) Negative (06/13/21 10:00 AM) Normal Negative [facility] UA Auto SS Clarity (U) Clear (06/13/21 [...] AM) Normal Negative [facility] UA Auto SS [place].plasma/[place]. RBC (Bld) [Mass ratio] 0-3 /HPF Normal 0-3/HPF [facility] UA A uto SS Mucus Ql (Urine sed) 3+ (06/13/21 10:00 AM) Normal [facility] UA Auto SS Nitrite Ql (U) Negative (06/13/21 10:00 AM) Normal Negative [facility] UA Auto SS pH (U) 6.5 *NA* (06/13/21 10:00 AM) Invalid Interpretation Code 5.0 - 9.0 [facility] UA Auto SS Protein (U) [Mass/Vol] Negative (06/13/21 10:00 AM) Normal Negative [facility] UA Auto SS Specific gravity (U) [Rel density] 1.015 *NA* (06/13/21 10:00 AM) Invalid Interpretation Code 1.005 - 1.030 [facility] UA Auto SS UA Spec Desc Random Urine (06/13/21 10:00 AM) Normal [facility] UA Auto SS Urobilinogen Qn (U) [id number] {Juma'U}/dL Normal 0.0 - 1.0 EU/dL [facility] UA Auto SS WBC Auto Ql (U) Negative (06/13/21 10:00 AM) Normal Negative [facility] UA Auto SS WBC LM.HPF (Urine sed) [#/Area] 0-5 /HPF Normal 0-5/HPF [facility] UA Auto SS CHEMISTRYOrdered By: SYSTEM SYSTEM on 06-04-2021 Albumin [Mass/Vol] 2.8 g/dL Low 3.3 - 5.0 gm/dL [facility] Remisol Albumin/Globulin [Mass ratio] 0.7 {ratio} Low 1.1 - 2.2 [facility] Remisol ALP [Catalytic activity/Vol] 84 [iU]/d Normal 21 - 98 Int._Unit/L [facility] Remisol ALT No additional P-5'-P [Catalytic activity/Vol] 10 [iU]/d Normal 6 - 46 Int._Unit/L [facility] Remisol Anion gap [Moles/Vol] 12 mmol/L Normal 6 - 16 mEq/L [facility] Remisol AST [Catalytic activity/Vol] 15 [iU]/d Normal [...] rate/Area] mL/min/1.73 m2 Normal >=59mL/min/1 .73 m2 [facility] Chem S GFR/1.73 sq M.predicted among non-blacks MDRD (S/P/Bld) [Vol rate/Area] mL/min/1.73 m2 Normal >=59mL/min/1 .73 m2 [facility] Chem S Globulin (S) [Mass/Vol] 3.8 g/dL [...] 29.3 pg Normal 27.0 - 34.0 pg FT HemeAutoSS MCHC (RBC) [Mass/Vol] 34.6 g/dL Normal [...] 4.3 E12/L Normal 4.3 - 5.9 E12/L [facility] HemeAutoSS WBC corrected for nucl RBC Auto (Bld) [#/Vol] 10.4 E9/L Normal 4.0 - 11.0 E9/L [facility] HemeAutoSS CHEMISTRYOrdered By: Kanjoya SYSTEM on 05-30-2021 Glucose 1 Hr post 75 g glucose PO [Mass/Vol] 199 mg/dL High 55 - 180 mg/dL [facility] Remisol HEMATOLOGYOrdered By: Minna King on 05-30-2021 Hematocrit (Bld) [Volume fraction] 35.0 % Normal 34.0 - 46.0 % [facility] HemeAutoSS Hemoglobin (Bld) [Mass/Vol] 12.3 g/dL Normal 12.0 - 16.0 gm/dL [facility] HemeAutoSS CBC AUTO DIFFon 02-11-2021 BASO # 0.1 103/ul Normal 0.0-0.1 [facility] Comment on above: Performed By: #### C BC #### [facility] [address] [place] [address] Dr. Shola Randolph Basophils/100 WBC (Bld) 0.4 % Normal 0.2-2.0 [facility] Comment on above: Performed By: #### C BC #### [facility] [address] [place] [address] Dr. Shola Randolph EO # 0.5 103/ul Normal 0.0-0.7 [facility] Comment on above: Performed By: #### C BC #### [facility] [address] [place] [address] Dr. Shola Randolph Eosinophils/100 WBC (Bld) 3.9 % Normal 0.9-7.0 [facility] Comment on above: Performed By: #### C BC #### [facility] [address] [place] [address] Dr. Shola Randolph Erythrocyte distribution width (RBC) [Ratio] 13.3 % Normal 11.0-15.0 [facility] Comment on above: Performed By: #### C BC #### [facility] [address] [place] [address] Dr. Shola Randolph Hematocrit (Bld) [Volume fraction] 42.0 % Normal 36.0-48.0 [facility] Comment on above: Performed By: #### C BC #### [facility] [address] [place] [address] Dr. Shola Randolph Hemoglobin (Bld) [Mass/Vol] 13.9 g/dL Normal 12.0-16.0 [facility] Comment on above: Performed By: #### C BC #### [facility] [address] [place] [address] Dr. Shola Randolph IG # 0.04 10e3/ul Critically high 0.00-0.03 [facility] Comment on above: Performed By: #### C BC #### [facility] [address] [place] [address] Dr. Shola Randolph IG % 0.3 % Normal 0.0-0.5 [facility] Comment on above: Performed By: #### C BC #### [facility] [address] [place] [address] Dr. Shola Randolph LYMPH # 2.5 103/ul Normal 1.2-3.8 [facility] Comment on above: Performed By: #### C BC #### [facility] [address] [place] [address] Dr. Shola Randolph Lymphocytes/100 WBC (Bld) 20.2 % Critically low 20.5-60.0 [facility] Comment on above: Performed By: #### C BC #### [facility] [address] [place] [address] Dr. Shola Randolph MANUAL DIFF REQ NO Normal [facility] Comment on above: Performed By: #### C BC #### [facility] [address] [place] [address] Dr. Shola Randolph MCH (RBC) [Entitic mass] 28.7 pg Normal 26.7-34.0 [facility] Comment on above: Performed By: #### C BC #### [facility] [address] [place] [address] Dr. Shola Randolph MCHC (RBC) [Mass/Vol] 33.1 g/dL Normal 29.9-35.2 [facility] Comment on above: Performed By: #### C BC #### [facility] [address] [place] [address] Dr. Shola Randolph MCV (RBC) [Entitic vol] 86.6 fL Normal 81.0-99.0 [facility] Comment on above: Performed By: #### C BC #### [facility] [address] [place] [address] Dr. Shola Randolph MONO # 0.8 103/ul Normal 0.3-0.8 [facility] Comment on above: Performed By: #### C BC #### [facility] [address] [place] [address] Dr. Shola Randolph Monocytes/100 WBC (Bld) 6.5 % Normal 1.7-12.0 [facility] Comment on above: Performed By: #### C BC #### [facility] [address] [place] [address] Dr. Shola Randolph NEUT # 8.5 103/ul Critically high 1.4-6.5 [facility] Comment on above: Performed By: #### C BC #### [facility] [address] [place] [address] Dr. Shola Randolph Neutrophils/100 WBC (Bld) 68.7 % Normal 43.0-75.0 [facility] Comment on above: Performed By: #### C BC #### [facility] [address] [place] [address] Dr. Shola Randolph Platelet mean volume (Bld) [Entitic vol] 8.4 fL Critically low 9.5-13.5 [facility] Comment on above: Performed By: #### C BC #### [facility] [address] [place] [address] Dr. Shola Randolph PLT 246 103/ul Normal 150-450 [facility] Comment on above: Performed By: #### C BC #### [facility] [address] [place] [address] Dr. Shola Randolph RBC 4.85 106/ul Normal 4.20-5.40 [facility] Comment on above: Performed By: #### C BC #### [facility] [address] [place] [address] Dr. Shola Randolph WBC 12.4 103/ul Critically high 4.0-11.0 [facility] Comment on above: Performed By: #### C BC #### [facility] [address] [place] [address] Dr. Shola Randolph PROF 14(COMP METB)on 021 Albumin [Mass/Vol] 3.3 g/dL Critically low 3.5-5.0 [facility] Comment on above: Performed By: #### C MP #### [facility] [address] [place] [address] Dr. Shola Randolph Albumin/Globulin [Mass ratio] 0.8 {ratio} Normal [facility] Comment on above: Performed By: #### C MP #### [facility] [address] [place] [address] Dr. Shola Randolph ALP [Catalytic activity/Vol] 76 U/L Normal 38-126 [facility] Comment on above: Performed By: #### C MP #### [facility] [address] [place] [address] Dr. Shola Randolph ALT [Catalytic activity/Vol] 25 U/L Normal 9-52 [facility] Comment on above: Performed By: #### C MP #### [facility] [address] [place] [address] Dr. Shola Randolph Anion gap [Moles/Vol] 12.4 mmol/L Normal Th e [facility] Comment on above: Performed By: #### C MP #### [facility] [address] [place] [address] Dr. Shola Randolph AST [Catalytic activity/Vol] 15 U/L Normal 14-36 [facility] Comment on above: Performed By: #### C MP #### [facility] [address] [address] [address] Shola Randolph Bilirubin [Mass/Vol] 0.3 mg/dL Normal 0.2-1.3 [facility] Comment on above: Performed By: #### C MP #### [facility] [address] [address] [address] Shola Randolph Calcium [Mass/Vol] 8.8 mg/dL Normal 8.4-10.2 [facility] Comment on above: Performed By: #### C MP #### [facility] [address] [place] [address] Dr. Shola Randolph Chloride [Moles/Vol] 102 mmol/L Normal 98-107 [facility] Comment on above: Performed By: #### C MP #### [facility] [address] [address] [address] Shola Randolph CO2 [Moles/Vol] 25.5 mmol/L Normal 22.0-30.0 [facility] Comment on above: Performed By: #### C MP #### [facility] [address] [address] [address] Shola Randolph Creatinine [Mass/Vol] 0.81 mg/dL Normal 0.52-1.04 [facility] Comment on above: Performed By: #### C MP #### [facility] [address] [address] [address] Shola Randolph EGFR-AF MONTSERRATIAN >60 Normal >=60 [facility] Comment on above: Performed By: #### C MP #### [facility] [address] [place] [address] Dr. Shola Randolph EGFR-NON AF MONTSERRATIAN >60 Normal >=60 [facility] Comment on above: Performed By: #### C MP #### [facility] [address] [address] [address] Shola Randolph Globulin (S) [Mass/Vol] 4.4 g/dL Normal [facility] Comment on above: Performed By: #### C MP #### [facility] [address] [address] [address] Shola Randolph Glucose [Mass/Vol] 88 mg/dL Normal 74-106 [facility] Comment on above: Performed By: #### C MP #### [facility] [address] [place] [address] Dr. Shola Randolph Potassium [Moles/Vol] 3.9 mmol/L Normal 3.4-5.0 [facility] Comment on above: Performed By: #### C MP #### [facility] [address] [place] [address] Dr. Shola Randolph Protein [Mass/Vol] 7.7 g/dL Normal 6.1-8.2 [facility] Comment on above: Performed By: #### C MP #### [facility] [address] [place] [address] Dr. Shola Randolph Sodium [Moles/Vol] 136 mmol/L Critically low 137-145 [facility] Comment on above: Performed By: #### C MP #### [facility] [address] [place] [address] Dr. Shola Randolph Urea nitrogen [Mass/Vol] 9.0 mg/dL Normal 7.0-17.0 [facility] Comment on above: Performed By: #### C MP #### [facility] [address] [place] [address] Dr. Shola Randolph Urea nitrogen/Creatinine [Mass ratio] 11.1 mg/mg Normal [facility] Comment on above: Performed By: #### C MP #### [facility] [address] [place] [address] Dr. Shola Randolph Vital Signs Date Time Vital Sign Value Performing Clinician Facility 10-24-2024 13:49-0400 Body mass index (BMI) [Ratio] 49.95 kg/m2 Gwen SAAVEDRA Work Phone: [facility] 10-24-2024 13:49-0400 Body weight 132 kg Gwen Anny SAAVEDRA Work Phone: [facility] 10-24-2024 13:49-0400 Diastolic blood pressure 92 mm[Hg] Gwen Anny SAAVEDRA Work Phone: [facility] 10-24-2024 13:49-0400 Systolic blood pressure 142 mm[Hg] Gwen Bedollaey PA Work Phone: [facility] 10-17-2024 13:30-0400 Body mass index (BMI) [Ratio] 49.33 kg/m2 Zack Angel DO Work Phone: [facility] 10-17-2024 13:30-0400 Body weight 130.36 kg Zack Angel DO Work Phone: [facility] 10-17-2024 13:30-0400 Diastolic blood pressure 82 mm[Hg] Zack Angel DO Work Phone: [facility] 10-17-2024 13:30-0400 Systolic blood pressure 130 mm[Hg] Zack Angel DO Work Phone: [facility] 10-08-2024 15:05-0400 Body mass index (BMI) [Ratio] 49.33 kg/m2 Zack Angel DO Work Phone: [facility] 10-08-2024 15:05-0400 Body weight 130.36 kg Zack Angel DO Work Phone: [facility] 10-08-2024 15:05-0400 Diastolic blood pressure 100 mm[Hg] Zack Angel DO Work Phone: [facility] 10-08-2024 15:05-0400 Systolic blood pressure 142 mm[Hg] Zack Angel DO Work Phone: [facility] 10-03-2024 14:26-0400 Body mass index (BMI) [Ratio] 50.98 kg/m2 Zack Angel DO Work Phone: [facility] 10-03-2024 14:26-0400 Body weight 134.72 kg Zack Angel DO Work Phone: [facility] 10-03-2024 14:26-0400 Diastolic blood pressure 100 mm[Hg] Zack Angel DO Work Phone: [facility] 10-03-2024 14:26-0400 Systolic blood pressure 154 mm[Hg] Zack Angel DO Work Phone: [facility] 09-17-2024 13:18-0400 Body mass index (BMI) [Ratio] 50.64 kg/m2 Gwen Anny PA Work Phone: [facility] 09-17-2024 13:18-0400 Body weight 133.81 kg Gwen Arbon PA Work Phone: [facility] 09-17-2024 13:18-0400 Diastolic blood pressure 70 mm[Hg] Gwen Arbon PA Work Phone: [facility] 09-17-2024 13:18-0400 Systolic blood pressure 118 mm[Hg] Gwen Anny PA Work Phone: [facility] 08-21-2024 09:16-0400 Body temperature 97.5 [degF] Yixue Virk DDS Work Phone: [facility] 08-21-2024 09:16-0400 Diastolic blood pressure 90 mm[Hg] Yixue Virk DDS Work Phone: [facility] 08-21-2024 09:16-0400 Heart rate 86 /min Yixue Virk DDS Work Phone: [facility] 08-21-2024 09:16-0400 Systolic blood pressure 134 mm[Hg] Yixue Virk DDS Work Phone: [facility] 08-20-2024 14:57-0400 Body mass index (BMI) [Ratio] 48.58 kg/m2 Zack Angel DO Work Phone: [facility] 08-20-2024 14:57-0400 Body weight 128.37 kg Zack Angel DO Work Phone: [facility] 08-20-2024 14:57-0400 Diastolic blood pressure 74 mm[Hg] Zack Angel DO Work Phone: [facility] 08-20-2024 14:57-0400 Systolic blood pressure 122 mm[Hg] Zack Angel DO Work Phone: [facility] 08-15-2024 12:56-0400 Body temperature 98.1 [degF] Yixue Virk DDS Work Phone: [facility] 08-15-2024 12:56-0400 Diastolic blood pressure 96 mm[Hg] Yixue Virk DDS Work Phone: [facility] 08-15-2024 12:56-0400 Heart rate 79 /min Yixue Virk DDS Work Phone: [facility] 08-15-2024 12:56-0400 Systolic blood pressure 138 mm[Hg] Yixue Virk DDS Work Phone: [facility] 07-23-2024 15:23-0400 Body mass index (BMI) [Ratio] 47.38 kg/m2 Gwen SAAVEDRA Work Phone: [facility] 07-23-2024 15:23-0400 Body weight 125.19 kg Gwen SAAVEDRA Work Phone: [facility] 07-23-2024 15:23-0400 Diastolic blood pressure 78 mm[Hg] Gwen SAAVEDRA Work Phone: [facility] 07-23-2024 15:23-0400 Systolic blood pressure 124 mm[Hg] Gwen SAAVEDRA Work Phone: [facility] 04-18-2024 14:08-0500 Diastolic blood pressure 96 mm[Hg] [facility] 04-18-2024 14:08-0500 Heart rate 85 /min [facility] 04-18-2024 14:08-0500 Respiratory rate 20 /min [facility] 04-18-2024 14:08-0500 SaO2% (BldA) [Mass fraction] 99 % [facility] 04-18-2024 14:08-0500 Systolic blood pressure 136 mm[Hg] [facility] 04-18-2024 11:41-0500 Body temperature 98.06 [degF] [facility] 04-18-2024 11:41-0500 Diastolic blood pressure 94 mm[Hg] [facility] 04-18-2024 11:41-0500 Heart rate 106 /min [facility] 04-18-2024 11:41-0500 Respiratory rate 22 /min [facility] 04-18-2024 11:41-0500 SaO2% (BldA) [Mass fraction] 98 % [facility] 04-18-2024 11:41-0500 Systolic blood pressure 144 mm[Hg] [facility] 10-10-2023 10:13-0400 Blood Pressure Location REY ALAS [facility] 10-10-2023 10:13-0400 Body temperature 98.06 [degF] [facility] 10-10-2023 10:13-0400 Diastolic blood pressure 74 mm[Hg] RE[facility] AL[facility] 10-10-2023 10:13-0400 Heart rate 80 /min RE[facility] AL[facility] 10-10-2023 10:13-0400 Respiratory rate 15 /min RE[facility] AL[facility] 10-10-2023 10:13-0400 SaO2% (BldA) [Mass fraction] 98 % [facility] AL[facility] 10-10-2023 10:13-0400 Systolic blood pressure 122 mm[Hg] [facility] AL[facility] 07-08-2023 13:59-0400 Heart rate 107 /min Jagdish Shaun [facility] 07-08-2023 13:59-0400 Respiratory rate 14 /min Jagdish Shaun [facility] 07-08-2023 13:59-0400 SaO2% (BldA) [Mass fraction] 98 % Jagdish Shaun [facility] 07-08-2023 12:49-0400 Body temperature 97.7 [degF] Jagdish Shaun [facility] 07-08-2023 12:49-0400 Diastolic blood pressure 94 mm[Hg] Jagdish Shaun [facility] 07-08-2023 12:49-0400 Heart rate 120 /min Jagdish Shaun [facility] 07-08-2023 12:49-0400 Respiratory rate 15 /min Jagdish Shaun [facility] 07-08-2023 12:49-0400 SaO2% (BldA) [Mass fraction] 97 % Jagdish Shaun [facility] 07-08-2023 12:49-0400 Systolic blood pressure 134 mm[Hg] Jagdish Shaun [facility] 07-06-2023 08:45-0400 Blood Pressure Location REY ALAS [facility] 07-06-2023 08:45-0400 Diastolic blood pressure 86 mm[Hg] REY BISHOP [facility] 07-06-2023 08:45-0400 Heart rate 78 /min REY LINDSAYPASCUAL [facility] 07-06-2023 08:45-0400 SaO2% (BldA) [Mass fraction] 99 % REY LINDSAYANABELVLAD [facility] 07-06-2023 08:45-0400 Systolic blood pressure 126 mm[Hg] REY BISHOP [facility] 01-11-2023 19:48-0500 Diastolic blood pressure 96 mm[Hg] Jagdish Shaun [facility] 01-11-2023 19:48-0500 Heart rate 84 /min Jagdish Shaun [facility] 01-11-2023 19:48-0500 Mean blood pressure 108 mm[Hg] Jagdish Shaun [facility] 01-11-2023 19:48-0500 Respiratory rate 13 /min Jagdish Shaun [facility] 01-11-2023 19:48-0500 SaO2% (BldA) [Mass fraction] 97 % Jagdish Shaun [facility] 01-11-2023 19:48-0500 Systolic blood pressure 131 mm[Hg] Jagdish Shaun [facility] 01-11-2023 19:30-0500 Heart rate 85 /min Jagdish Shaun [facility] 01-11-2023 19:30-0500 Respiratory rate 17 /min Jagdish Shaun [facility] 01-11-2023 19:30-0500 SaO2% (BldA) [Mass fraction] 97 % Jagdish Shaun [facility] 01-11-2023 19:00-0500 Diastolic blood pressure 95 mm[Hg] Jagdish Shaun [facility] 01-11-2023 19:00-0500 Heart rate 87 /min Jagdish Shaun [facility] 01-11-2023 19:00-0500 Mean blood pressure 107 mm[Hg] Jagdish Shaun [facility] 01-11-2023 19:00-0500 Respiratory rate 11 /min Jagdish Shaun [facility] 01-11-2023 18:00-0500 Diastolic blood pressure 94 mm[Hg] Jagdish Shaun [facility] 01-11-2023 18:00-0500 Systolic blood pressure 135 mm[Hg] Jagdish Shaun [facility] 01-11-2023 16:10-0500 Body temperature 98.06 [degF] [facility]dish Shaun [facility] 01-11-2023 16:10-0500 Heart rate 110 /min Jagdish Shaun [facility] 01-11-2023 16:10-0500 Respiratory rate 18 /min Jagdish Shaun [facility] 01-08-2023 14:21-0500 Body temperature 98.6 [degF] [facility] 01-08-2023 14:21-0500 Diastolic blood pressure 75 mm[Hg] [facility] 01-08-2023 14:21-0500 Heart rate 76 /min [facility] 01-08-2023 14:21-0500 Respiratory rate 18 /min [facility] 01-08-2023 14:21-0500 SaO2% (BldA) [Mass fraction] 97 % [facility] 01-08-2023 14:21-0500 Systolic blood pressure 116 mm[Hg] [facility] 01-08-2023 12:45-0500 Body temperature 98.24 [degF] [facility] 01-08-2023 12:45-0500 Diastolic blood pressure 79 mm[Hg] [facility] 01-08-2023 12:45-0500 Heart rate 110 /min [facility] 01-08-2023 12:45-0500 Respiratory rate 24 /min [facility] 01-08-2023 12:45-0500 SaO2% (BldA) [Mass fraction] 100 % [facility] 01-08-2023 12:45-0500 Systolic blood pressure 117 mm[Hg] [facility] 01-06-2023 16:45-0500 Diastolic blood pressure 87 mm[Hg] Jesus Sheetse [facility] 01-06-2023 16:45-0500 Heart rate 98 /min Jesus Sheetse [facility] 01-06-2023 16:45-0500 Mean blood pressure 97 mm[Hg] Jesus Sheetse [facility] 01-06-2023 16:45-0500 Respiratory rate 20 /min Jesus Sheetse [facility] 01-06-2023 16:45-0500 SaO2% (BldA) [Mass fraction] 97 % Jesus Sheetse [facility] 01-06-2023 16:45-0500 Systolic blood pressure 118 mm[Hg] Jesus Armen [facility] 01-06-2023 16:15-0500 Diastolic blood pressure 85 mm[Hg] Jesus Sheetse [facility] 01-06-2023 16:15-0500 Heart rate 98 /min Jesus Armen [facility] 01-06-2023 16:15-0500 Mean blood pressure 99 mm[Hg] Jesus Armen [facility] 01-06-2023 16:15-0500 Respiratory rate 18 /min Jesus Armen [facility] 01-06-2023 16:15-0500 SaO2% (BldA) [Mass fraction] 96 % Jesus Armen [facility] 01-06-2023 16:15-0500 Systolic blood pressure 127 mm[Hg] Jesus Armen [facility] 01-06-2023 15:45-0500 Diastolic blood pressure 87 mm[Hg] Jesus Armen [facility] 01-06-2023 15:45-0500 Heart rate 98 /min Jesus Sheetse [facility] 01-06-2023 15:45-0500 Mean blood pressure 102 mm[Hg] Jesus Sheetse [facility] 01-06-2023 15:45-0500 Respiratory rate 18 /min Jesus Armen [facility] 01-06-2023 15:45-0500 SaO2% (BldA) [Mass fraction] 97 % Jesus Armen [facility] 01-06-2023 15:45-0500 Systolic blood pressure 131 mm[Hg] Jesus Armen [facility] 01-06-2023 15:15-0500 Heart rate 114 /min Jesus Ayers [facility] 01-06-2023 14:48-0500 Body temperature 102.02 [degF] Jesus Ayers [facility] 01-06-2023 14:48-0500 Heart rate 115 /min Jesus Ayers [facility] 10-17-2022 17:02-0400 Diastolic blood pressure 69 mm[Hg] Jagdish Dunn [facility] 10-17-2022 17:02-0400 Heart rate 66 /min Jagdish Shaun [facility] 10-17-2022 17:02-0400 Mean blood pressure 79 mm[Hg] Jagdish Dunn [facility] 10-17-2022 17:02-0400 Respiratory rate 18 /min Jagdish Shaun [facility] 10-17-2022 17:02-0400 SaO2% (BldA) [Mass fraction] 98 % Jagdish Shaun [facility] 10-17-2022 17:02-0400 Systolic blood pressure 100 mm[Hg] Jagdish Dunn [facility] 10-17-2022 16:43-0400 Hourly Rounding Jagdish Dunn [facility] 10-17-2022 16:43-0400 Promise to Return Jagdishmiguel ángel Dunn [facility] 10-17-2022 16:42-0400 Diastolic blood pressure 65 mm[Hg] Jagdish Shaun [facility] 10-17-2022 16:42-0400 Heart rate 62 /min Jagdish Dunn [facility] 10-17-2022 16:42-0400 Mean blood pressure 80 mm[Hg] Jagdish Shaun [facility] 10-17-2022 16:42-0400 Respiratory rate 18 /min Jagdish Shaun [facility] 10-17-2022 16:42-0400 SaO2% (BldA) [Mass fraction] 99 % Jagdish Shaun [facility] 10-17-2022 16:42-0400 Systolic blood pressure 111 mm[Hg] Jagdish Shaun [facility] 10-17-2022 15:43-0400 Diastolic blood pressure 69 mm[Hg] Jagdish Shaun [facility] 10-17-2022 15:43-0400 Heart rate 68 /min Jagdish Shaun [facility] 10-17-2022 15:43-0400 Hourly Rounding Jagdish Shaun [facility] 10-17-2022 15:43-0400 Mean blood pressure 83 mm[Hg] Jagdish Shaun [facility] 10-17-2022 15:43-0400 Promise to Return Jagdish Shaun [facility] 10-17-2022 15:43-0400 Respiratory rate 18 /min Jagdish Shaun [facility] 10-17-2022 15:43-0400 SaO2% (BldA) [Mass fraction] 100 % Jagdish Shaun [facility] 10-17-2022 15:43-0400 Systolic blood pressure 111 mm[Hg] Jagdish Shaun [facility] 10-17-2022 14:49-0400 Hourly Rounding Jagdish Shaun [facility] 10-17-2022 14:49-0400 Promise to Return Jagdishmiguel ángel Dunn [facility] 10-17-2022 13:04-0400 Body temperature 98.06 [degF] Jagdish Shaun [facility] 10-17-2022 13:04-0400 Heart rate 93 /min Jagdish Shaun [facility] 02-17-2022 21:00-0500 Diastolic blood pressure 91 mm[Hg] Jagdish Shaun [facility] 02-17-2022 21:00-0500 Heart rate 86 /min Jagdish Shaun [facility] 02-17-2022 21:00-0500 Mean blood pressure 106 mm[Hg] Jagdish Shaun [facility] 02-17-2022 21:00-0500 Respiratory rate 20 /min Jagdish Shaun [facility] 02-17-2022 21:00-0500 SaO2% (BldA) [Mass fraction] 98 % Jagdish Shaun [facility] 02-17-2022 21:00-0500 Systolic blood pressure 136 mm[Hg] Jagdish Shaun [facility] 02-17-2022 20:00-0500 Diastolic blood pressure 81 mm[Hg] Jagdish Shaun [facility] 02-17-2022 20:00-0500 Heart rate 91 /min Jagdish Shaun [facility] 02-17-2022 20:00-0500 Mean blood pressure 96 mm[Hg] Jagdish Shaun [facility] 02-17-2022 20:00-0500 Respiratory rate 16 /min Jagdish Shaun [facility] 02-17-2022 20:00-0500 Systolic blood pressure 125 mm[Hg] Jagdish Dunn [facility] 02-17-2022 19:44-0500 Diastolic blood pressure 98 mm[Hg] Jagdish Dunn [facility] 02-17-2022 19:44-0500 Heart rate 99 /min Jagdish Dunn [facility] 02-17-2022 19:44-0500 Mean blood pressure 112 mm[Hg] Jagdish Dnun [facility] 02-17-2022 19:44-0500 Respiratory rate 19 /min Jagdish Dunn [facility] 02-17-2022 19:44-0500 SaO2% (BldA) [Mass fraction] 97 % Jagdish Dunn [facility] 02-17-2022 19:44-0500 Systolic blood pressure 140 mm[Hg] Jagdish Dunn [facility] 02-17-2022 16:14-0500 Body temperature 98.96 [degF] Jagdish Dunn [facility] 02-17-2022 16:14-0500 Heart rate 112 /min Jagdish Dunn [facility] 11-10-2021 12:13-0400 Body temperature 97.88 [degF] Jesus Ayers [facility] 11-10-2021 12:13-0400 Diastolic blood pressure 88 mm[Hg] Jesus Armen [facility] 11-10-2021 12:13-0400 Heart rate 93 /min Jesus Ayers [facility] 11-10-2021 12:13-0400 Respiratory rate 16 /min Jesus Ayers [facility] 11-10-2021 12:13-0400 SaO2% (BldA) [Mass fraction] 99 % Jesus Ayers [facility] 11-10-2021 12:13-0400 Systolic blood pressure 128 mm[Hg] Jesus Ayers [facility] 09-14-2021 16:00-0400 Diastolic blood pressure 98 mm[Hg] PHYSICIAN NO [facility] 09-14-2021 16:00-0400 Heart rate 106 /min PHYSICIAN NO [facility] 09-14-2021 16:00-0400 Respiratory rate 16 /min PHYSICIAN NO [facility] 09-14-2021 16:00-0400 SaO2% (BldA) [Mass fraction] 97 % PHYSICIAN NO [facility] 09-14-2021 16:00-0400 Systolic blood pressure 138 mm[Hg] PHYSICIAN NO [facility] 09-14-2021 08:00-0400 Body temperature 97.3 [degF] PHYSICIAN NO [facility] 09-11-2021 21:30-0400 Body height 165.1 cm PHYSICIAN NO [facility] 09-11-2021 21:30-0400 Body weight 111.13 kg PHYSICIAN NO [facility] 07-17-2021 11:18-0400 Diastolic blood pressure 80 mm[Hg] Jagdish Dunn [facility] 07-17-2021 11:18-0400 Heart rate 82 /min Jagdish Dunn [facility] 07-17-2021 11:18-0400 Respiratory rate 82 /min Jagdish Dunn [facility] 07-17-2021 11:18-0400 SaO2% (BldA) [Mass fraction] 99 % Jagdish Dunn [facility] 07-17-2021 11:18-0400 Systolic blood pressure 131 mm[Hg] Jagdish Dunn [facility] 07-17-2021 09:28-0400 Body temperature 97.88 [degF] Jagdish Dunn [facility] 07-17-2021 09:28-0400 Diastolic blood pressure 98 mm[Hg] Jagdish Dunn [facility] 07-17-2021 09:28-0400 Heart rate 85 /min Jagdish Dunn [facility] 07-17-2021 09:28-0400 Respiratory rate 18 /min Jagdish Dunn [facility] 07-17-2021 09:28-0400 SaO2% (BldA) [Mass fraction] 98 % Jagdish Dunn [facility] 07-17-2021 09:28-0400 Systolic blood pressure 145 mm[Hg] Jagdish Dunn [facility] 06-13-2021 12:30-0400 Hourly Rounding Una Foote [facility] Comment on above: Result Comment: Pt eats her entire lunch without nausea; states the protonix took her nausea away. 06-13-2021 10:45-0400 Blood Pressure Location Un[facility] Foote [facility] 06-13-2021 10:45-0400 Diastolic blood pressure 77 mm[Hg] Un[facility] Foote [facility] 06-13-2021 10:45-0400 Heart rate 81 /min Una Foote [facility] 06-13-2021 10:45-0400 Mean blood pressure 92 mm[Hg] [facility] Foot[facility] 06-13-2021 10:45-0400 Respiratory rate 20 /min [facility] Foot[facility] 06-13-2021 10:45-0400 Systolic blood pressure 122 mm[Hg] [facility] 06-13-2021 10:06-0400 Body temperature 98.06 [degF] [facility] Foot[facility] 06-13-2021 10:06-0400 Diastolic blood pressure 79 mm[Hg] [facility] Foot[facility] 06-13-2021 10:06-0400 Heart rate 83 /min Una Foote [facility] 06-13-2021 10:06-0400 Mean blood pressure 96 mm[Hg] [facility] Foote [facility] 06-13-2021 10:06-0400 Respiratory rate 20 /min Una Foote [facility] 06-13-2021 10:06-0400 Systolic blood pressure 131 mm[Hg] [facility] Foot[facility] 06-13-2021 10:00-0400 Blood Pressure Location Un[facility] Foote [facility] 06-04-2021 16:17-0400 Diastolic blood pressure 77 mm[Hg] [facility] 06-04-2021 16:17-0400 Heart rate 92 /min [facility] 06-04-2021 16:17-0400 Mean blood pressure 90 mm[Hg] [facility] 06-04-2021 16:17-0400 Respiratory rate 15 /min [facility] 06-04-2021 16:17-0400 SaO2% (BldA) [Mass fraction] 97 % [facility] 06-04-2021 16:17-0400 Systolic blood pressure 117 mm[Hg] [facility] 06-04-2021 15:07-0400 Diastolic blood pressure 86 mm[Hg] [facility] 06-04-2021 15:07-0400 Heart rate 99 /min [facility] 06-04-2021 15:07-0400 Mean blood pressure 106 mm[Hg] [facility] 06-04-2021 15:07-0400 Respiratory rate 17 /min [facility] 06-04-2021 15:07-0400 SaO2% (BldA) [Mass fraction] 100 % [facility] 06-04-2021 15:07-0400 Systolic blood pressure 146 mm[Hg] [facility] 06-04-2021 14:34-0400 Body temperature 98.6 [degF] [facility] 06-04-2021 14:34-0400 Diastolic blood pressure 87 mm[Hg] [facility] 06-04-2021 14:34-0400 Heart rate 105 /min [facility] 06-04-2021 14:34-0400 Mean blood pressure 108 mm[Hg] [facility] 06-04-2021 14:34-0400 Respiratory rate 18 /min [facility] 06-04-2021 14:34-0400 SaO2% (BldA) [Mass fraction] 96 % [facility] 06-04-2021 14:34-0400 Systolic blood pressure 149 mm[Hg] [facility] 05-13-2021 12:49-0400 Body temperature 97.7 [degF] Ariadne Murray [facility] 05-13-2021 12:49-0400 Diastolic blood pressure 70 mm[Hg] Ariadne Murray [facility] 05-13-2021 12:49-0400 Heart rate 88 /min Ariadne Murray [facility] 05-13-2021 12:49-0400 SaO2% (BldA) [Mass fraction] 98 % Ariadne Murray [facility] 05-13-2021 12:49-0400 Systolic blood pressure 110 mm[Hg] Ariadne Murray [facility] Encounters Encounter Date Encounter Type Care Provider Facility Start: 10-24-2024 End: 10-24-2024 Bamboo flowsheet Gwen SAAVEDRA Work Phone: [facility] Start: 10-24-2024 End: 10-24-2024 Bamboo flowsheet Gwen SAAVEDRA Work Phone: [facility] Start: 10-24-2024 End: 10-24-2024 Clinisync Result Encounter Zack Angel DO Work Phone: [facility] External Department Unsolicited Start: 10-24-2024 End: 10-24-2024 flow sheet Gwen SAAVEDRA Work Phone: [facility] Comment on above: Third trimester preg perez ([facility]); 33 weeks gestation of ([facility]) Start: 10-24-2024 End: 10-24-2024 ambulatory GWEN MCCORMICK Not Available Start: 10-20-2024 End: 10-20-2024 Clinisync Result Encounter Zack Angel DO Work Phone: [facility] Department Unsolicited Start: 10-20-2024 End: 10-20-2024 Clinisync Result Encounter Zack Angel DO Work Phone: [facility] Department Unsolicited Start: 10-18-2024 End: 10-18-2024 Documentation procedure Krista Cruz RN Work Phone: [facility] Start: 10-17-2024 End: 10-17-2024 Clinisync Result Encounter Zack Angel DO Work Phone: [facility] External Department Unsolicited Start: 10-17-2024 End: 10-17-2024 Clinisync Result Encounter Zack Angel DO Work Phone: [facility] External Department Unsolicited Start: 10-17-2024 End: 10-17-2024 flow sheet Zack Angel DO Work Phone: GREG [facility]O Comment on above: 32 weeks gestation o f ([facility]); Third trimester ([facility]); Hypertension affecting in third trimester ([facility]); Diet controlled gestational diabetes mellitus (GDM), antepartum ([facility]); Gestational diabetes mellitus (GDM), antepartum, gestational diabetes method of control unspecified ([facility]); Elevated glucose tolerance test; induced hypertension, antepartum ([facility]) Start: 10-17-2024 End: 10-17-2024 ambulatory ZACK ANGEL Not Available Start: 10-11-2024 End: 10-11-2024 Chart abstracting Scanning Provider External [facility] Start: 10-10-2024 End: 10-10-2024 Clinisync Result Encounter Zack Angel DO Work Phone: [facility] Unsolicited Start: 10-10-2024 End: 10-10-2024 Clinisync Result Encounter Zack Angel DO Work Phone: [facility] External Department Unsolicited Start: 10-08-2024 End: 10-08-2024 ambulatory ZACK ANGEL Not Available Start: 10-08-2024 End: 10-08-2024 flow sheet Zack Angel DO Work Phone: GREG [facility] Comment on above: Third trimester preg perez ([facility]); 31 weeks gestation of ([facility]); Hypertension affecting in third trimester ([facility]) Start: 10-08-2024 End: 10-08-2024 Bamboo flowsheet Zack Angel DO Work Phone: [facility] Start: 10-08-2024 End: 10-08-2024 Bamboo flowsheet Zack Angel DO Work Phone: [facility] Start: 10-04-2024 End: 10-04-2024 Clinisync Result Encounter Zack Angel DO Work Phone: [facility] External Department Unsolicited Start: 10-04-2024 End: 10-04-2024 Clinisync Result Encounter Zack Angel DO Work Phone: [facility] External Department Unsolicited Start: 10-03-2024 End: 10-03-2024 flow sheet Zack Angel DO Work Phone: [facility] Comment on above: Third trimester preg perez ([facility]); Diet controlled gestational diabetes mellitus (GDM), antepartum ([facility]); Gestational diabetes mellitus (GDM), antepartum, gestational diabetes method of control unspecified ([facility]) Start: 10-03-2024 End: 10-03-2024 Clinisync Result Encounter Zack Angel DO Work Phone: [facility] Department Unsolicited Start: 10-03-2024 End: 10-03-2024 Clinisync Result Encounter Zack Angel DO Work Phone: [facility] External Department Unsolicited Start: 10-03-2024 End: 10-03-2024 ambulatory ZACK ANGEL Not Available Start: 09-17-2024 End: 09-17-2024 Bamboo flowsheet Gwen SAAVEDRA Work Phone: [facility] Start: 09-17-2024 End: 09-17-2024 Bamboo flowsheet Gwen SAAVEDRA Work Phone: [facility] Start: 09-17-2024 End: 09-17-2024 flow sheet Gwen SAAVEDRA Work Phone: [facility] Comment on above: Size of fetus incons istent with dates in second trimester ([facility]) (Primary Dx); 28 weeks gestation of ([facility]) Start: 09-17-2024 End: 09-17-2024 ambulatory GWEN MCCORMICK Not Available Start: 08-29-2024 End: 08-29-2024 ambulatory ZACK ANGEL Not Available Start: 08-21-2024 End: 08-21-2024 Encounter identifier Yieverette Virk DDS Work Phone: [facility] Start: 08-20-2024 End: 08-20-2024 ambulatory ZACK ANGEL Not Available Start: 08-20-2024 End: 08-20-2024 Patient encounter procedure Zack Angel DO Work Phone: [facility] Start: 08-20-2024 End: 08-20-2024 Periodic preventive med est patient 18-39 yrs Zack Angel DO Work Phone: [facility] Comment on above: Well woman exam with routine gynecological exam; Second trimester ([facility]); 24 weeks gestation of ([facility]); Exposure to STD; Need for maternal serum alpha-protein (MSAFP) screening ([facility]); Encounter for follow-up ultrasound of anatomy ([facility]) Start: 08-20-2024 End: 08-20-2024 Bamboo flowsheet Zack [...] established patient Bishnu Virk DDS Work Phone: [facility] Start: 08-01-2024 ambulatory Bishnu Virk DDS [facility] Start: 07-23-2024 End: 07-23-2024 ambulatory GWEN [...] Not Available Start: 04-27-2024 End: 04-27-2024 ambulatory PATROL LADY-C REY ALAS Facility:[facility] Start: 04-25-2024 ambulatory PATROL LADY-C REY ALAS Facility:[facility] Start: 04-18-2024 End: 04-18-2024 Emergency department patient visit Alva Jo [facility] Start: 11-07-2023 ambulatory PATROL LADY-C REY ALAS Facility:[facility] Start: 10-19-2023 End: 10-19-2023 ambulatory PATROL LADY-C REY ALAS [place] Start: 10-19-2023 End: 10-19-2023 Patient encounter procedure REY ALAS [facility] Start: 10-10-2023 End: 10-10-2023 ambulatory PATROL LADY-C REY ALAS Facility:[facility] Start: 10-10-2023 End: 10-10-2023 Patient encounter procedure REY ALAS [facility] [place] Start: 07-25-2023 End: 07-25-2023 ambulatory PATROL LADY-C REY ALAS Facility:[facility] Start: 07-25-2023 End: 07-25-2023 Patient encounter procedure REY ALAS [facility] Start: 07-08-2023 End: 07-08-2023 Emergency department patient visit Jagdish Dunn [facility] Start: 07-06-2023 End: 07-06-2023 ambulatory PATROL LADY-C REY ALAS Facility:[facility] Start: 07-06-2023 End: 07-06-2023 Patient encounter procedure REY ALAS [facility] Start: 01-14-2023 End: 01-14-2023 Patient encounter procedure Ricarda Garcia [facility] Start: 01-11-2023 End: 01-11-2023 Emergency department patient visit Jagdish Dunn [facility] Start: 01-08-2023 End: 01-08-2023 Emergency department patient visit Alva Jo [facility] Start: 01-06-2023 End: 01-06-2023 Emergency department patient visit Jesus Ayers [facility] Start: 10-17-2022 End: 10-17-2022 Emergency department patient visit Jagdish Dunn [facility] Start: 02-17-2022 End: 02-17-2022 Emergency department patient visit Jagdish Dunn [facility] Start: 11-10-2021 End: 11-10-2021 Emergency department patient visit Jesus Ayers [facility] Start: 09-11-2021 End: 09-14-2021 Evaluation and management of inpatient Presley Paulaphong Facility:[facility] Start: 09-11-2021 End: 09-14-2021 Evaluation and management of inpatient PHYSICIAN NO [facility] Start: 08-14-2021 End: 09-14-2021 Pre-admission assessment Presley J Paulaphong [facility] Start: 08-12-2021 End: 08-12-2021 Lab Drop off Presleyrachel Timmons [facility] Start: 07-17-2021 End: 07-17-2021 Emergency department patient visit Jagdish Dunn [facility] Start: 07-02-2021 End: 07-02-2021 Patient encounter procedure Jennifer SUERO [facility] Start: 06-14-2021 End: 07-15-2021 Pre-admission assessment Una Foote [facility] Start: 06-13-2021 End: 06-13-2021 OB Triage Una Foote [facility] Start: 06-04-2021 End: 06-04-2021 Emergency department patient visit Alva Jo [facility] Start: 05-30-2021 End: 05-30-2021 Patient encounter procedure Presley Timmons [facility] Start: 2021 End: 06-14-2021 Pre-admission assessment Presley Timmons [facility] Start: 05-13-2021 End: 05-13-2021 Patient encounter procedure Ariadne Díazler [facility] Start: 02-11-2021 End: 02-11-[address] RORO GARNER Facility: Procedures Date Procedure Procedure Detail Performing Clinician Start: 10-24-2024 US OB GROWTH Zack Fazi o DO Work Phone: Start: 10-24-2024 US OB BPP W NON-STRESS Zack Angel DO Work Phone: Start: 10-24-2024 Urnls dip stick/tabl et rgnt non-auto w/o micrscp Gwen SAAVEDRA Work Phone: Start: 10-20-2024 ALL CBC WITH [...] Start: 08-20-2024 RECURRENT VAGINITIS (HTRX) Zack Ortiz [employer] Work Phone: Start: 08-20-2024 Urnls dip stick/tabl et rgnt non-auto w/o micrscp Zack Ortiz DO Work Phone: Start: 08-20-2024 IGP,APTIMA HPV,AGE GDLN Zack Angel [employer] Work Phone: Start: 08-20-2024 Microscopic observat ion [...] micrscp Zack Ortiz DO Work Phone: Start: 2024 [facility] DRUG SCREEN RAPI D (URINE) Zack Ortiz DO Work Phone: Start: 05-24-2024 BOX TEST Zack awad DO Work Phone: Start: 05-22-2024 Urine test visual color cmprsn meths Zack Ortiz DO Work Phone: Cholecystectomy Ariadne Murray denies Ariadne Murray SARS Antigen (LFIA) PHYSICIA N NO FAMILY Plan of Treatment Date Care Activity Detail Author Start: 09-14-2031 DTaP,Tdap and Td Vac cines (3 - Td or Tdap) DTaP,Tdap and Td Vaccines (3 - Td or Tdap) [facility] Start: 08-20-2029 Screening for malign ant neoplasm of cervix [facility] Start: 08-21-2027 Screening for malign ant neoplasm of cervix Pap Smear [facility] Start: 10-04-2025 Adult BMI Screening Adult BMI Screen ing [facility] Start: 10-31-2024 End: 10-31-2024 Patient encounter procedure 10/31/2024 1:40 PM EDT Routine GREG MANZANO [address] [place] [address] Zack Ortiz DO [address] [address] GREG MANZANO Start: 10-24-2024 End: 10-24-2024 Patient encounter procedure GREG MANZANO Comment on above: Arrived Start: 10-18-2024 End: 10-18-2024 ambulatory 10/18/2024 1:30 PM EDT Support Visit [facility] [address] [place] [address] Krista Cruz RN [address] [facility], [address] [place] [id number] Laura Weaver LD [facility] Start: 10-17-2024 End: 10-17-2025 Alanine aminotransferase [Enzymatic activity/volume] in Serum or Plasma ALT Lab Routine induced hypertension, antepartum ([facility]) Expected: 10/17/2024 (Approximate), Expires: 10/17/2025 [facility] Comment on above: Expected: 10/17/2024 (Approximate), Expires: 10/17/2025 Start: 10-17-2024 End: 10-17-2025 Aspartate aminotransferase [Enzymatic activity/volume] in Serum or Plasma AST Lab Routine induced hypertension, antepartum ([facility]) Expected: 10/17/2024 (Approximate), Expires: 10/17/2025 [facility] Comment on above: Expected: 10/17/2024 (Approximate), Expires: 10/17/2025 Start: 10-17-2024 End: 10-17-2025 CBC W Auto Differential panel - Blood CBC and differential Lab Routine induced hypertension, antepartum ([facility]) Expected: 10/17/2024 (Approximate), Expires: 10/17/2025 [facility] [employer] Comment on above: Expected: 10/17/2024 (Approximate), Expires: 10/17/2025 Start: 10-17-2024 End: 10-17-2025 Creatinine [Mass/volume] in Serum or Plasma Creatinine Lab Routine induced hypertension, antepartum ([facility]) Expected: 10/17/2024 (Approximate), Expires: 10/17/2025 [facility] Work Phone: Comment on above: Expected: 10/17/2024 (Approximate), Expires: 10/17/2025 Start: 10-17-2024 End: 10-17-2025 Urea nitrogen [Mass/volume] in Serum or Plasma BUN Lab Routine induced hypertension, antepartum ([facility]) Expected: 10/17/2024, Expires: 10/17/2025 [facility] Comment on above: Expected: 10/17/2024 , Expires: 10/17/2025 Start: 10-17-2024 End: 02-16-2025 US for US OB follow up transabdominal approach Imaging Routine Hypertension affecting in third trimester ([facility]) Diet controlled gestational diabetes mellitus (GDM), antepartum ([facility]) induced hypertension, antepartum ([facility]) Expected: 10/17/2024, Expires: 02/16/2025 [facility] Comment on above: Expected: 10/17/2024 , Expires: 02/16/2025 Start: 10-17-2024 End: 10-17-2024 Patient encounter procedure 10/17/2024 1:30 PM EDT [facility] [address] [place] [id number] Zack Ortiz DO [address] [facility] [address] [place] [address] [facility] Start: 10-15-2024 COVID-19 Vaccine ( season) COVID-19 Vaccine ( season) [facility] Start: 10-15-2024 Influenza vaccination [facility] Start: 10-03-2024 End: 04-05-2025 US biophysical profile w non stress test US biophysical profile w non stress test Imaging Routine Gestational diabetes mellitus (GDM), antepartum, gestational diabetes method of control unspecified ([facility]) Expected: 10/03/2024 (Approximate), Expires: 04/05/2025 [facility] Work Phone: Comment on above: Expected: 10/03/2024 (Approximate), Expires: 04/05/2025 Start: 09-20-2024 End: 09-20-2024 US for US OB limited 1+ fetuses Imaging Routine Encounter for follow-up ultrasound of anatomy ([facility]) Expected: 09/20/2024, Expires: 09/20/2024 [facility] Work Phone: Comment on above: Expected: 09/20/2024 , Expires: 09/20/2024 Start: 09-17-2024 End: 01-17-2025 US for US OB follow up transabdominal approach Imaging Routine Size of fetus inconsistent with dates in second trimester ([facility]) Expected: 09/17/2024, Expires: 01/17/2025 [facility] Work Phone: Comment on above: Expected: 09/17/2024 , Expires: 01/17/2025 Start: 09-17-2024 End: 09-17-2024 Patient encounter procedure [facility] Comment on above: Arrived Start: 09-05-2024 Sabrina Richmond [facility] Work Phone: Start: 08-29-2024 End: 08-29-2024 Professional / ancillary services management 08/29/2024 1:00 PM EDT Ancillary Procedure [facility] [address] [facility] [place] [address] [facility] Start: 08-21-2024 [facility] Work Phone: Start: 08-20-2024 End: 08-20-2024 Patient encounter procedure 08/20/2024 2:10 PM EDT Routine [facility] [address] [facility] [place] [address] Zack Ortiz DO [address], [place] [id number] [facility] Start: 08-15-2024 [facility] Work Phone: Start: 07-23-2024 End: 07-23-2024 Patient encounter procedure 07/23/2024 2:30 PM EDT Routine [facility] [address] [place] [address] Gwen Mccormick PA [address] [place], [place] [id number] [facility] Start: 07-23-2024 End: 08-22-2024 Alpha fetoprotein, maternal Alpha fetoprotein, maternal Lab Routine Need for maternal serum alpha-protein (MSAFP) screening Expected: 07/23/2024 (Approximate), Expires: 08/22/2024 [facility] Work Phone: Comment on above: Expected: 07/23/2024 (Approximate), Expires: 08/22/2024 Start: 07-23-2024 End: 07-23-2024 Professional / ancillary services management 07/23/2024 1:30 PM EDT Ancillary Procedure [facility] [address] [address] [facility] Start: 06-18-2024 End: 09-18-2024 US for US OB 14+ weeks anatomy scan Imaging Routine Screening, , for anatomic survey Expected: 06/18/2024, Expires: 09/18/2024 [facility] Work Phone: Comment on above: Expected: 06/18/2024 , Expires: 09/18/2024 Start: 06-18-2024 End: 06-18-2024 Patient encounter procedure [facility] Comment on above: Arrived Start: 2024 Screening for malign ant neoplasm of cervix [facility] Start: 05-18-2024 End: 05-18-2025 ABO/Rh ABO/Rh Lab Routine Missed menses , unspecified gestational age Expected: 05/18/2024 (Approximate), Expires: 05/18/2025 [facility] Comment on above: Expected: 05/18/2024 (Approximate), Expires: 05/18/2025 Start: 05-18-2024 End: 05-18-2025 Blood type and Indirect antibody screen panel - Blood Type and screen Lab Routine Missed menses , unspecified gestational age Expected: 05/18/2024 (Approximate), Expires: 05/18/2025 [facility] Work Phone: Comment on above: Expected: 05/18/2024 (Approximate), Expires: 05/18/2025 Start: 05-18-2024 End: 05-18-2025 Drugs of abuse panel - Urine by Screen method Rapid drug screen, urine Lab Routine , unspecified gestational age Encounter for supervision of normal first in first trimester Expected: 05/18/2024 (Approximate), Expires: 05/18/2025 [facility] Comment on above: Expected: 05/18/2024 (Approximate), Expires: 05/18/2025 Start: 10-16-2023 COVID-19 Vaccine () COVID-19 Vaccine () [facility] Start: 09-14-2021 [facility] Work Phone: Start: 09-12-2021 Hospital admission [facility] Work Phone: Start: 09-11-2021 Delivery of Products of Conception, External Approach Delivery of Products of Conception, External Approach [facility] Start: 09-11-2021 Division of Female Perineum, External Approach Division of Female Perineum, External Approach [facility] Start: 09-11-2021 Drainage of Amniotic Fluid, Therapeutic from Products of Conception, Via Natural or Artificial Opening Drainage of Amniotic Fluid, Therapeutic from Products of Conception, Via Natural or Artificial Opening [facility] Start: 05-28-2015 Screening for malign ant neoplasm of cervix Pap Smear [facility] Start: 2012 Adult BMI Follow Up Plan Adult BMI Follow Up Plan [facility] Start: 2006 Depression Screening Depression Scre ening [facility] Start: 2006 Tobacco Screening Tobacco Screening [facility] Bacteria identified in Urine by Culture Urine culture Microbiology Routine Missed menses Ordered: 05/18/2024 [facility] Comment on above: Ordered: 05/18/2024 CBC W Auto Different ial panel - Blood CBC and differential Lab Routine Missed menses , unspecified gestational age Ordered: 05/18/2024 [facility] Comment on above: Ordered: 05/18/2024 CHLAMYDIA TRACHOMATI S (GENITO/STI) CHLAMYDIA TRACHOMATIS (GENITO/STI) Lab Routine Exposure to STD Ordered: 08/20/2024 [facility] Comment on above: Ordered: 08/20/2024 Cytology Cervical or vaginal smear or scraping study Pap Smear Pathology and Cytology Routine Well woman exam with routine gynecological exam Ordered: 08/20/2024 [facility] Comment on above: Ordered: 08/20/2024 Hemoglobin A1c/Hemoglobin.total in Blood Hemoglobin A1c Lab Routine Missed menses , unspecified gestational age Ordered: 05/18/2024 [facility] Comment on above: Ordered: 05/18/2024 Hepatitis B virus breaux rface Ag [Presence] in Serum or Plasma by Immunoassay Hepatitis B surface antigen Lab Routine Missed menses , unspecified gestational age Ordered: 05/18/2024 [facility] Comment on above: Ordered: 05/18/2024 Hepatitis C virus Ab [Presence] in Serum or Plasma by Immunoassay Hepatitis C antibody Lab Routine Missed menses , unspecified gestational age Ordered: 05/18/2024 [facility] Comment on above: Ordered: 05/18/2024 HIV-1/HIV-2 antigen/antibody combination immunoassay HIV-1 and HIV-2 antibodies Lab Routine Missed menses , unspecified gestational age Ordered: 05/18/2024 [facility] Comment on above: Ordered: 05/18/2024 Human papilloma viru s DNA [Presence] in Unspecified specimen by Probe with amplification HPV DNA probe, amplified Microbiology Routine Well woman exam with routine gynecological exam Ordered: 08/20/2024 [facility] Comment on above: Ordered: 08/20/2024 Neisseria gonorrhoea e DNA [Presence] in Unspecified specimen by EMMA with probe detection Neisseria gonorrhea DNA probe, direct Lab Routine Exposure to STD Ordered: 08/20/2024 [facility] Comment on above: Ordered: 08/20/2024 Patient Education Post- Di jelani Instructions [place] [facility] Work Phone: Patient referral [facility] Work Phone: Reagin Ab [Presence] in Serum by RPR RPR Lab Routine Missed menses , unspecified gestational age Ordered: 05/18/2024 [facility] Comment on above: Ordered: 05/18/2024 Rubella antibody, IgG Rubella an tibody, IgG Lab Routine Missed menses , unspecified gestational age Ordered: 05/18/2024 [facility] Comment on above: Ordered: 05/18/2024 SURESWAB(R) ADVANCED VAGINITIS PLUS, TMA SURESWAB(R) ADVANCED VAGINITIS PLUS, TMA Pathology and Cytology Routine Exposure to STD Ordered: 08/20/2024 [facility] Comment on above: Ordered: 08/20/2024 Immunizations Immunization Date Immunization Notes Care Provider Sivakumar raines 09-13-2021 tetanus toxoid, reduced diphtheria toxoid, and acellular pertussis vaccine, adsorbed PHYSICIAN ALEXIS [facility] 10-09-2020 SARS-CoV-2 (COVID-19 ) [id number] vaccine Ricarda Garcia [facility] Comment on above: Result Comment: 2022: TPVAL 09-29-2020 tetanus toxoid, reduced diphtheria toxoid, and acellular pertussis vaccine, adsorbed; Translations: [Boostrix (Tdap)] Ariadne Murray [facility] Comment on above: Result Comment: (L) deltoid Result Comment: (L) deltoid 11-26-2011 influenza virus vaccine, unspecified formulation Ricarda Garcia [facility] 02-12-2004 influenza virus vaccine, unspecified formulation Ricarda Garcia [facility] 03-01-2003 influenza virus vaccine, unspecified formulation Ricarda Garcai [facility] 12-17-1996 varicella virus vaccine Ricarda Garcia [facility] 10-19-1995 DTaP, unspecified formulation Ricarda Garcia [facility] 10-19-1995 haemophilus influenzae type b vaccine, PRP-T conjugate Ricarda Garcia [facility] 06-21-1995 measles, mumps and rubella virus vaccine Ricarda Garcia [facility] 03-09-1995 hepatitis B vaccine, pediatric or pediatric/adolescent dosage Ricarda Garcia [facility] 1994 DTaP, unspecified formulation Ricarda Garcia [facility] 1994 haemophilus influenzae type b vaccine, PRP-T conjugate Ricarda Garcia [facility] 1994 poliovirus vaccine, unspecified formulation Ricarda Garcia [facility] 1994 DTaP, unspecified formulation Ricarda Garcia [facility] 1994 haemophilus influenzae type b vaccine, PRP-T conjugate Ricarda Garcia [facility] 1994 hepatitis B vaccine, pediatric or pediatric/adolescent dosage Ricarda Garcia [facility] 1994 poliovirus vaccine, unspecified formulation Ricarda Garcia [facility] 1994 DTaP, unspecified formulation Ricarda Garcia [facility] 1994 haemophilus influenzae type b vaccine, PRP-T conjugate Ricarda Garcia [facility] 1994 hepatitis B vaccine, pediatric or pediatric/adolescent dosage Ricarda Garcia [facility] 1994 poliovirus vaccine, unspecified formulation Ricarda Garcia [facility] NEGATED: Highlighted row has not occurred!10-04-2024 tetanus toxoid, reduced diphtheria toxoid, and acellular pertussis vaccine, adsorbed Scanning External [facility] NEGATED: Highlighted row has not occurred!07-06-2023 influenza virus vaccine, unspecified formulation REY ALAS [facility] [place] Payers Date Payer Category Payer Private Health Insurance [employer]ICA[employer] [id number] 2024 Medicaid HMO [employer] [id number] 2024 [place]ID [place] [id number] 2024 Medicaid [id number] 2024 Blue Cross Blue Shie ld Managed Care - Other ANTHEM [id number] 2023 Blue Cross Blue Shie ld Managed Care - PPO ANTHEM [id number] 2021 Self-pay 2021 Unknown [id number] 2021 Blue Cross Blue Shield 1.2.8 [id number] 2021 Unknown [id number] 1994 Unknown [id number] 2.16.840.1.190491.3.579.2. 593 1994 Unknown [id number] 2.16.840.1.081018.3.579.2. 1994 Unknown [id number] 2.16.840.1.743783.3.579.2. 1994 Unknown [id number] 2.16.840.1.177411.3.579.2. 1994 Unknown [id number] 2.16.840.1.011514.3.579.2. 1994 Unknown [id number] 2.16.840.1.117258.3.579.2. 1994 Unknown [id number] 2.16.840.1.622936.3.579.2. 1994 Unknown [id number] 2.16.840.1.444692.3.579.2. 1994 Unknown [id number] 2.16840.1.126920.3.579.2. 1994 Unknown [id number] 2.16.840.1.647412.3.579.2. 1994 Unknown [id number] 2.16.840.1.554304.3.579.2. 1994 Unknown [id number] 2.16.840.1.197598.3.579.2. 1994 Unknown [id number] 2.16.840.1.975728.3.579.2. 1258 1994 Unknown [id number] 2.16.840.1.089045.3.579.2. 1258 1994 Unknown [id number] 2.16.840.1.158034.3.579.2. 1258 1994 Unknown [id number] 2.16.840.1.355500.3.579.2. 1258 1994 Unknown [id number] 2.16.840.1.388755.3.579.2. 1258 1994 Unknown [id number] 2.16.840.1.046504.3.579.2. 9 1994 Unknown [id number] 2.16.840.1.802197.3.579.2. 1258 1994 Unknown [id number] 2.16.840.1.705451.3.579.2. 1258 1994 Unknown [id number] 2.16.840.1.856393.3.579.2. 1258 1994 Unknown [id number] 2.16.840.1.567142.3.579.2. 1258 1994 Unknown [id number] 2.16.840.1.794014.3.579.2. 1258 1994 Unknown [id number] 2.16.840.1.522788.3.579.2. 1258 1994 Unknown [id number] 2.16.840.1.227740.3.579.2. 9 1959 Unknown [id number] Unknown [id number] 2.16.840.1.027327.3.579.2. 531 Social History Date Type Detail Facility Start: 10-03-2020 End: 07-06-2023 Tobacco smoking status Never smoked tobacco (finding) [facility] Tobacco smoking status Never [facility] Start: 07-25-2018 End: 08-15-2015 Sex Assigned At Female [facility] Start: 1995 Sex Assigned At Female [facility] Start: 08-15-2024 End: 08-21-2024 Tobacco smoking status NHIS Tobacco smoking consumption unknown [facility] Start: 03-15-2024 [facility] Start: 05-17-2024 Gender identity Identifies as female gender (finding) [facility] Start: 05-17-2024 Sexual orientation Bisexual (finding) [facility] Start: 08-15-2024 Alcohol intake Alcohol Use Details [facility] Sexual Orientation Straight or heterosexu al [facility] Work Phone: Start: 07-25-2018 History of Social function [facility] Start: 1995 Sex assigned at Not on file [facility] Start: 09-17-2014 Sex Female (finding) [facility] Medical Equipment Procedure Code Equipment Code Equipment Origin al Text Equipment Identifier Dates 1 strip by In Vi tro route Daily Use in the morning prior to breakfast, 1 hour after each meal for a total of 4times daily. [id number] Start: 06-18-2024 End: 07-18-2024 1 each by In Vit ro route Daily Use to check FSBS four times daily [id number] Start: 06-18-2024 End: 07-18-2024 Use as instructed [id number] Start: 10-03-2024 End: 10-03-2024 1 strip by In Vi tro route Daily Use in the morning prior to breakfast, 1 hour after each meal for a total of 4times daily. [id number] Start: 10-17-2024 End: 11-16-2024 1 each by In Vit ro route Daily Use to check FSBS four times daily [id number] Start: 10-17-2024 End: 11-16-2024 Goals Date Patient Goal Desired Activity /State Functional Status Date Assessment Result Facility 04-18-2024 Functional Status N/A [facility] 10-10-2023 Functional Status N/A [facility] 07-08-2023 Functional Status N/A [facility] 07-06-2023 Functional Status N/A [facility] 01-11-2023 Functional Status N/A [facility] 01-08-2023 Functional Status N/A [facility] 01-06-2023 Functional Status N/A [facility] 10-17-2022 Functional Status N/A [facility] 02-17-2022 Functional Status N/A [facility] 11-10-2021 Functional Status N/A [facility] 09-14-2021 Functional status Patient at [facility] Work Phone: Mental Status Date Assessment Result Facility 09-14-2021 Cognitive function Cognitive Sta tus Patient at Baseline [facility] Work Phone: Clinical Notes 05-13-2021 to 10-24-2024 KERI Velasquez - 10/24/2024 1:20 PM Tanvir Cruz RN - 10/18/2024 2:29 PM Shannon Lang LPN - 10/17/2024 1:30 PM Eyal Randle, [employer] - 10/08/2024 2:20 PM EDT Note Date [...] ASSESSMENT & PLAN ICD-10-CM 1. Third trimester ([facility]) Z34.93 POCT urinalysis dipstick manually resulted 2. 33 weeks gestation of ([facility]) Z3A.33 Return OB: Patient presents today [...] of: KERI Velasquez documented in this encounter [facility] 10-18-2024 History of Present illness Narrative Summary: MFM Missed Diabetes GDM Education Class Missed/no show (for) Diabetes Education GDM class this afternoon. documented in this encounter [facility] 10-17-2024 History of Present illness Narrative [...] nursing note reviewed. Exam conducted with a manager library present. Vitals: Estimated body mass index is 49.33 kg/m as calculated from the following: Height as of 10/28/21: 5' 4 . Weight as of this encounter: 287 lb 6.4 oz. BP: 130/82 No LMP recorded. Patient is . ASSESSMENT & PLAN ICD-10-CM 1. 32 weeks gestation of ([facility]) Z3A.32 POCT urinalysis dipstick manually resulted 2. Third trimester ([facility]) Z34.93 POCT urinalysis dipstick manually resulted 3. Hypertension affecting in third trimester ([facility]) O16.3 US OB follow up transabdominal approach 4. Diet controlled gestational diabetes mellitus (GDM), antepartum ([facility]) O24.410 US OB follow up transabdominal approach 5. Gestational diabetes mellitus (GDM), antepartum, gestational diabetes method of control unspecified ([facility]) O24.419 Lancets Ultra Thin misc Alcohol [...] Glucometer) w/Device kit 7. induced hypertension, antepartum ([facility]) O13.9 Creatinine CBC and differential ALT [...] Zack Ortiz DO documented in this encounter [facility] 10-08-2024 History of Present [...] nursing note reviewed. Exam conducted with a manager library present. Vitals: Estimated body mass index is 49.33 kg/m as calculated from the following: Height as of 10/28/21: 5' 4 . Weight as of this encounter: 287 lb 6.4 oz. BP: (!) 142/100 No LMP recorded. Patient is . ASSESSMENT & PLAN ICD-10-CM 1. Third trimester ([facility]) Z34.93 Urine dip 2. 31 weeks gestation of ([facility]) Z3A.31 Urine dip Patient was seen at [facility] last week. Patient left AMA and was advised that it is recommended that she return to [facility] until delivery as instructed. Patient declines and would like to continue locally at this time. Informed patient that if she experiences any symptoms then she is to return to [facility] to be monitored. Patient declines and will increase BP meds to Labetalol 300mg TID. Patient aware that she needs to continue her NST/BPPs and weekly office visits. Patient voiced that she has changed her diet and her diabetes is now under control. Documented by Nayeli Randle LPN on behalf of: Zack Ortiz DO documented in this encounter [facility] 10-03-2024 History of Present [...] nursing note reviewed. Exam conducted with a manager library present. Vitals: Estimated body mass index is 50.98 kg/m as calculated from the following: Height as of 22: 5' 4 . Weight as of this encounter: 297 lb. BP: (!) 154/100 No LMP recorded. Patient is . ASSESSMENT & PLAN ICD-10-CM 1. Third trimester ([facility]) Z34.93 POCT urinalysis dipstick manually resulted 2. Diet controlled gestational diabetes mellitus (GDM), antepartum ([facility]) O24.410 Return OB: Patient presents today [...] on insulin. Pt to be referred to [facility] for diabetic ed and insulin prescription. Pt to start NST/BPP pt bp elevated, pt being sent to [facility] for obs. Orders Placed This Encounter Procedures POCT urinalysis dipstick manually resulted Follow Up: Patient is to return to office in 2 week for routine OB appointment. Documented by Jane Lang LPN on behalf of: Zack Ortiz DO documented in this encounter [facility] 09-17-2024 History of Present [...] to check FSBS. Blood Glucose Monitoring Suppl ([employer] Glucometer) w/Device kit 1 kit, Does not [...] PLAN ICD-10-CM 1. 28 weeks gestation of ([facility]) Z3A.28 Return OB: Patient presents today for [...] of: KERI Velasquez documented in this encounter [facility] 08-21-2024 History of Presen t illness Narrative Encounter Date ext [facility] Work Phone: 1(475) 272-413207-07-2025 History of Present illness Narrative* Berta Yoder [...] nursing note reviewed. Exam conducted with a manager library present. Vitals: Estimated body mass index is 47.38 kg/m as calculated from the following: Height as of 10/28/21: 5' 4 . Weight as of 07/23/24: 276 lb. BP: No LMP recorded. Patient is . ASSESSMENT & PLAN ICD-10-CM 1. Well woman exam with routine gynecological exam Z01.419 Pap Smear HPV DNA probe, amplified 2. Second trimester ([facility]) Z34.92 POCT urinalysis dipstick manually resulted 3. 24 weeks gestation of ([facility]) Z3A.24 4. Exposure to STD Z20.2 SURESWAB(R) ADVANCED VAGINITIS PLUS, TMA CHLAMYDIA TRACHOMATIS (GENITO/STI) Neisseria gonorrhea DNA probe, direct 5. Need for maternal serum alpha-protein (MSAFP) screening ([facility]) Z36.1 6. Encounter for follow-up ultrasound of anatomy ([facility]) Z36.2 US OB limited 1+ fetuses [...] behalf of: alexandra Velasquez documented in [facility] [id number] History of Present illness Narrative* Encounter Date Complaint History Of Prese nt Illness DL DL [facility] Work Phone: 1(591) 651-392406-09-2025 History of Present illness Narrative* KERI Velasquez [...] to check FSBS. Blood Glucose Monitoring Suppl ([employer] Glucometer) w/Device kit 1 kit, Does not [...] nursing note reviewed. Exam conducted with a manager library present. Vitals: Estimated body mass index is [...] of: Manasa Conroy NP documented in this encounterPutnam [facility] [id number] History of Present illness Narrative* Manasa Conroy [...] nursing note reviewed. Exam conducted with a manager library present. Vitals: Estimated body mass index is [...] of: Zack Ortiz DO documented in this encounterPutnam County Memorial [id number] History of Present illness Narrative* Snehal Lamb [...] meat, and stay away from [facility]. Patient has also been advised to not [...] by: Snehal Lamb MA documented in this encounterPutnam County Memorial [id number] Hospital Discharge instructions Patient Education 04/18/2024 14:10:03 Community-Acquired Pneumonia, Adult, Dptd-qb-Ryxe Community-Acquired Pneumonia, Adult Pneumonia is an infection [...] Follow these instructions at home: Medicines Take xtii-llg-plvhzoq and prescription medicines only as told by [...] cannot use soap and water, use hand exceptional student education teacher. Contact a doctor if: You have a [...] provider. Document Revised: 03/31/2022 Document Reviewed: 03/31/2022 [employer] Patient Education 2023 [employer]. Follow Up Care 04/18/2024 11:38:41 With:REY ALAS Address: [address] [place] [address] [address] [place] [address]- Business (1) When:04/21/2024 13:47:32 Comments:Call for diagnosis based follow up [facility] 03-05-2025 NoteED Patient Education Note Infectious [...] these instructions at home: Medicines ??? Take opld-bgz-lozlcho and prescription medicines only as told by [...] cannot use soap and water, use hand exceptional student education teacher. Contact a doctor if: ??? You have [...] lungs. ??? Community-acquired pneumonia (more content not included)...[facility]03-05-2025 Evaluation + Plan noteExtracted from: Title:ED Note Author:Derick MS III, James [place] Date:04/18/24 Pneumonia (J18.9: Pneumonia, unspecified organism) Orders: albuterol, 1 puff(s), Inhalation, q6hr for wheezing, 18 gram, Refill(s) 0, [facility]/pharmacy #[id number], 165, cm, 04/18/24 11:46:00 EST, Height/Length Dosing, 124.5, kg, 04/18/24 11:46:00 EST, Weight Dosing amoxicillin, 1,000 mg = 2 cap(s), Oral, q12hr, X 7 day(s), # 28 cap(s), Refills(s) 0, Pharmacy: [facility]/pharmacy #[id number], 165, cm, 04/18/24 11:46:00 EST, Height/Length Dosing, 124.5, kg, 04/18/24 11:46:00 EST, Weight Dosing Influenza A&B Ag Rapid COVID Antigen [place] [facility] 05-24-2024 Hospital Discharge instructions Patient Education [...] if you feel dizzy. General instructions Take kbes-ehn-kltvtav and prescription medicines only as told by [...] provider. Document Revised: 12/31/2020 Document Reviewed: 12/31/2020 [employer] Patient Education 2022 [employer]. 07/08/2023 14:32:37 Sinus Pain Sinus Pain Sinus [...] to cool or dry air. Medicines Take mnzp-nrw-jehsuvd and prescription medicines only as told by [...] provider. Document Revised: 01/03/2022 Document Reviewed: 01/03/2022 [employer] Patient Education 2022 [employer]. Follow Up Care 07/08/2023 12:48:51 With:REY ALAS Address: [address] [place] [address] [place] [id number] Business (1) When:07/11/2023 14:12:36 [facility]05-24-2024 Evaluation + Plan noteExtracted from: Title:ED Note Author:Jarrell King PA-C te:07/08/23 Sinus headache (R51.9: Heada rowan, unspecified) Vertigo (R42: Dizziness and giddiness) Orders: ketorolac, 60 mg = 2 mL, Injection, IntraMuscular, Once, Stop date 07/08/23 13:55:00 EDT, STAT, Start date 07/08/23 13:55:00 EDT, 07/08/23 13:55:00 EDT loratadine-pseudoephedrine, 1 tab(s), Oral, q12hr for 10 day(s), 20 tab(s), Refill(s) 0, [facility]/pharmacy #[id number], 165.1, cm, 07/08/23 12:52:00 EDT, Height/Length Dosing, 127, kg, 07/08/23 12:52:00 EDT, Weight Dosing meclizine, 25 mg = 1 tab(s), Oral, TID, PRN for dizziness, # 15 tab(s), Refills(s) 0, Pharmacy: [facility]/pharmacy #[id number], 165.1, cm, 07/08/23 12:52:00 EDT, Height/Length Dosing, 127, kg, 07/08/23 12:52:00 EDT, Weight Dosing meclizine, 25 mg = 2 tab(s), Tab, Oral, Once, Stop date 07/08/23 13:02:00 EDT, STAT, Start date 07/08/23 13:02:00 EDT, 07/08/23 13:02:00 EDT XR Chest Single View Future Appointments Appointment Date:07/25/2023 08:40:00 AM Scheduled Provider:JOAQUÍN RODRIGUEZ Location:[facility] Appointment Type:[facility]05-22-2024 Hospital Discharge instructions Patient Education 07/06/2023 [...] Follow these instructions at home: Medicines Take hssv-suk-ylkptzp and prescription medicines only as told by [...] for Headache and Migraine Patients (CHAMP): headachemigraine.org [place] Migraine Foundation: americanmigrainefoundation.org National Headache Foundation: headaches.org [...] provider. Document Revised: 03/19/2020 Document Reviewed: 03/19/2020 [employer] Patient Education 2022 [employer]. Follow Up Care 06/28/2023 15:15:45 With:JOAQUÍN RODRIGUEZ FAM Address: When:4 weeks [facility] [place] 11-28-2023 Hospital Discharge instructions Patient Education 01/11/2023 19:37:18 Cervical Sprain, Jutm-cx-Oxmo Cervical Sprain A cervical sprain is also [...] Follow these instructions at home: Medicines Take nmtm-pvd-edebuad and prescription medicines only as told by your doctor. Ask your doctor if the medicine prescribed to you: ?Requires you to avoid driving or using heavy machinery. ?Can cause trouble pooping (constipation). You may need to take these actions to prevent or treat trouble pooping: ?Drink enough fluid to keep your pee (urine) pale yellow. ?Take dvtn-lpi-bhsfjke or prescription medicines. ?Eat foods that are [...] provider. Document Revised: 05/10/2022 Document Reviewed: 10/10/2019 [employer] Patient Education 2022 [employer]. Follow Up Care 01/11/2023 15:55:53 With:CROW LYLES DO, FAM Address: When:1 to 2 days Comments:Call today to schedule your follow up [facility]11-25-2023 Hospital Discharge instructions Patient Education 01/08/2023 [...] if you feel dizzy. General instructions Take ckgs-pbh-yxcdsar and prescription medicines only as told by [...] provider. Document Revised: 12/31/2020 Document Reviewed: 12/31/2020 [employer] Patient Education 2022 [employer]. 01/08/2023 18:29:49 General Headache Without Cause General [...] help with your condition: Managing pain Take ygng-fie-skmjlkw and prescription medicines only as told by [...] provider. Document Revised: 07/01/2021 Document Reviewed: 07/01/2021 [employer] Patient Education 2022 [employer]. Follow Up Care 01/08/2023 12:35:43 With:Terrell HAN Address: [address] [place] [address] Business (1) When:01/11/2023 18:19:03 Comments:Return to the emergency room if your headache recurs, fever, vomiting, vision change or any new symptoms. [facility]11-25-2023 Evaluation + Plan noteExtracted from: Title:ED [...] or Brain w/o Contrast Extra SST Tube [facility]11-23-2023 Hospital Discharge instructions Follow Up Care 01/06/2023 14:44:33 With:[employer] [facility] Address: [address] [place] [address]- Business (1) When:01/09/2023 17:03:00 With:XXXX NONE Address: [place] When:Within 3 Day(s) [facility]11-23-2023 Evaluation + Plan noteExtracted from: Title:ED [...] Tube Influenza A&B Ag Rapid COVID Antigen ([facility] [facility]09-03-2023 Hospital Discharge instructions Patient Education 10/17/2022 [...] younger than 2 years. Live in a shelter. Travel on cruise ships. What are the [...] and water are not available, use hand exceptional student education teacher. Make sure that all people in your household wash their hands well and often. Take phbz-wax-eksjjgz and prescription medicines only as told by [...] and water are not available, use hand exceptional student education teacher. This information is not intended to replace advice given to you by your health care provider. Make sure you discuss any questions you have with your health care provider. Document Revised: 11/30/2021 Document Reviewed: 11/30/2021 [employer] Patient Education 2022 [employer]. Follow Up Care 10/17/2022 13:03:17 With:ROOSEVELT FRANK Address: [facility] [place] [id number] [facility] (1) When:10/20/2022 17:25:20 Comments:Call the [...] weakness, or any new or worsening symptoms. [facility]09-03-2023 Evaluation + Plan noteExtracted from: Title:ED [...] was discharged home. Jagdish Dunn DO, WILFREDO [facility]01-04-2023 Hospital Discharge instructions Patient Education 02/17/2022 [...] if you start to feel better. Take jbxh-swd-oyahoyi and prescription medicines only as told by [...] 03/10/2005 Document Revised: 08/03/2018 Document Reviewed: 08/03/2018 [employer] Patient Education 2020 [employer]. 02/17/2022 21:17:10 Nausea and Vomiting, Adult Nausea [...] water added (diluted fruit juice). Eat bland, lfhv-ab-bupcxl foods in small amounts as you are able. These foods include bananas, applesauce, rice, lean meats, toast, and crackers. Avoid fluids that contain a lot of sugar or caffeine, such as energy drinks, sports drinks, and soda. Avoid alcohol. Avoid spicy or fatty foods. General instructions Take tuve-tla-lxenjlk and prescription medicines only as told by your health care provider. Drink enough fluid to keep your urine pale yellow. Wash your hands often using soap and water. If soap and water are not available, use hand exceptional student education teacher. Make sure that all people in your [...] eating and drinking to prevent dehydration. Take yvnx-wmn-vejdcmd and prescription medicines only as told by [...] 01/31/2006 Document Revised: 05/25/2019 Document Reviewed: 07/11/2018 [employer] Patient Education 2020 [employer]. 02/17/2022 21:17:10 Abdominal Pain, Adult Abdominal Pain, [...] Follow these instructions at home: Medicines Take gtxn-kmg-oedefxr and prescription medicines only as told by [...] Watch your condition for any changes. Take ixrv-yte-davpjzh and prescription medicines only as told by [...] 11/10/2005 Document Revised: 06/11/2019 Document Reviewed: 06/11/2019 [employer] Patient Education 2019 [employer] Follow Up Care 02/17/2022 15:51:20 With:Hosea John Address: [address] [place] [address]- When:02/20/2022 21:03:18 Comments:Return to the emergency room if your pain gets worse, vomiting, fever or any new symptoms [facility]01-04-2023 Evaluation + Plan noteExtracted from: Title:ED Note Author:Jagdish Dunn DONathalia Date: Abdominal pain, acute (R10.9 : Unspecified [...] care of the patient was transitioned to nv upon shift change to follow-up with CT [...] are both in agreement. Additional diagnosis: Enteritis [facility]09-27-2022 Hospital Discharge instructions Patient Education 11/10/2021 [...] Treatment for this condition includes: Antibiotic medicine. Qucc-jkg-attgdfn medicines to treat discomfort. Drinking enough water [...] Follow these instructions at home: Medicines Take yosr-uyl-adhmgac and prescription medicines only as told by [...] 11/10/2005 Document Revised: 01/18/2019 Document Reviewed: 08/10/2018 [employer] Patient Education 2020 [email or web address] Follow Up Care 11/10/2021 12:07:08 With:Horacio Puma Address: Alisha Forde, [address] [facility] [place] [address]- Business (1) When:11/13/2021 13:20:06 [facility]09-27-2022 Evaluation + Plan note Diagnostic Tests Pending * Urine Culture 11/10/21 [facility]08-01-2022 Progress note Author Radha Orona [facility] September 14, 2021 10:31am Note Date/Time September 14, 2021 10: 31am [facility] [address] [place] [address] COTTON SAMPLER Progress Note Signed Patient: Sabrina Richmond MR#: [id number] : 1995 Acct:[id number] Age/Sex: 26 / F Adm Date: 2 Loc: Room: [address] [place] [address] Type: ADM IN Attending Dr: Presley Timmons [...] % (Auto) 73.9, Lymph % (Auto) 18.5, [place] % (Auto) 6.5, Eos % (Auto) 0.8, Baso % (Auto) 0.3, Neut # (Auto) 9.7 H, Lymph # (Auto) 2.4, [place] # (Auto) 0.9 H, Eos # (Auto) [...] signed by Radha Orona DO> 09/14/21 1031 [facility] Work Phone: 1(824) 905-751707-31-2022 Progress note Author PRESLEY TIMMONS [facility] September 13, 2021 8:54am Note Date/Time September 13, 2021 8:54 am [facility] [address] [place] [address] COTTON SAMPLER Progress Note Signed Patient: Sabrina Richmond MR#: [id number] : 1995 Acct:[id number] Age/Sex: 26 / F Adm Date: 2 Loc: Room: [address] [place] [address] Type: ADM IN Attending Dr: Presley Timmons [...] comments: no complaints baby status: doing well [place] feeding status: exclusively breast feeding OB - [...] care Documented By: PRESLEY TIMMONS MD 09/13/21 0647 Signed By: <Electronically signed by MD PRESLEY TIMMONS> 09/13/21 0854 [facility] Work Phone: 1(514) 610-494807-30-2022 [facility] Evaluation + Plan note Diagnostic Tests Pending * Group B Streptococcus colonization by PCR 08/12/21 [facility]06-03-2022 Hospital Discharge instructions Patient Education 07/17/2021 [...] exercise. Managing pain, stiffness, and swelling Take nnkq-noz-tfmudgp and prescription medicines only as told by [...] 01/31/2006 Document Revised: 01/13/2018 Document Reviewed: 03/02/2017 [employer] Patient Education 2020 [employer]. Follow Up Care 07/17/2021 09:19:46 With:Presley Timmons MD Address: When:07/20/2021 [facility]04-30-2022 Evaluation + Plan note Diagnostic Tests Pending * Urine Culture 06/13/21 [facility]04-30-2022 Hospital Discharge instructions Follow Up Care 06/13/2021 09:58:45 With:Presley Timmons Address:Unknown When:06/24/2021 Comments:Call for any problems.Call for fever > 100.5 FCall for severe abdominal painCall physician for heavy vaginal bleedinCall physician if symptoms worsenReturn for decreased movementReturn if ruptured membranes or vaginalKeep next scheduled appt [facility]04-21-2022 Hospital Discharge instructions Patient Education 06/04/2021 [...] water added (diluted fruit juice). Eat bland, xfrb-mn-qgeacb foods in small amounts as you are able. These foods include bananas, applesauce, rice, lean meats, toast, and crackers. Avoid fluids that contain a lot of sugar or caffeine, such as energy drinks, sports drinks, and soda. Avoid alcohol. Avoid spicy or fatty foods. General instructions Take kquq-pgw-xmqropj and prescription medicines only as told by your health care provider. Drink enough fluid to keep your urine pale yellow. Wash your hands often using soap and water. If soap and water are not available, use hand exceptional student education teacher. Make sure that all people in your [...] eating and drinking to prevent dehydration. Take nkkr-slq-ygrdewa and prescription medicines only as told by [...] 01/31/2006 Document Revised: 05/25/2019 Document Reviewed: 07/11/2018 [employer] Patient Education 2020 [employer] Follow Up Care 06/04/2021 14:33:50 With:Ann-Marie Romero Address: [address] [place] [phone] Business (1) When:06/07/2021 16:06:44 [facility]04-21-2022 Evaluation + Plan noteExtracted from: Title:ED [...] # 14 tab(s), Refills(s) 0, Pharmacy: [facility]/pharmacy #[id number], 165, cm, 06/04/21 14:38:00 EDT, Height/Length Dosing, 123, kg, 06/04/21 14:38:00 EDT, Weight Dosing Sodium Chloride 0.9% intravenous solution, 1,000 mL, Soln-IV, IV, Once, Stop date 06/04/21 14:53:00 EDT, STAT, Start date 06/04/21 14:53:00 EDT, mL/hr, Infuse over 61, minute(s) Automated Diff CBC w/ Auto Diff Comprehensive Metabolic Panel eGFR Extra Blue Tube Lipase Level UA With Cult Reflex [facility]03-30-2022 Hospital Discharge instructions Patient Education 05/13/2021 [...] 10/28/2004 Document Revised: 02/17/2017 Document Reviewed: 05/01/2016 [employer] Patient Education 2020 [employer]. 05/13/2021 13:28:44 Rapid Strep Test Rapid Strep [...] 03/10/2005 Document Revised: 05/25/2019 Document Reviewed: 10/04/2017 [employer] Patient Education 2020 [employer]. Follow Up Care 05/13/2021 12:18:07 With:Nick DOMINGO, Ann-Marie Salazar [facility] Address: [facility] [place] [address] [phone] When: Unknown [facility] Consult note* Clinical Note Date No Information [facility] Work Phone: Discharge summary* Clinical Note Date No Information [facility] Work Phone: Evaluation + Plan note No data available for this section [facility] Evaluation + Plan note Future Appointments Appointment Date:01/14/2023 01:40:00 PM Scheduled Provider:Ricarda Anthony Location:[facility] Appointment Type[facility] Future App[facility]ments Appointment Date:07/25/2023 08:40:00 AM Scheduled Provider:JOAQUÍN RODRIGUEZ Location:[facility] Appointment Type: Open [facility] Evaluation + Plan note Future Appointments Appointment Date:10/12/2023 08:00:00 AM Scheduled Provider[facility] Brain () Appointment Date:11/07/2023 02:00:00 PM Scheduled Provider:JOAQUÍN RODRIGUEZ Location:[facility] Appointment Type:[facility] Future Scheduled Tests Radiology* MRI Brain w/ + w/o Contrast 10/12/23 [facility] Evaluation + Plan note Future Appointments Appointment Date:11/07/2023 02:00:00 PM Scheduled Provider:JOAQUÍN RODRIGUEZ Location:[facility] Appointment Type: Open [facility] evaluation note* Diagnosis Onset Date Resolution Status 40 weeks gestation of acute Status post vaginal delivery acute [facility] Work Phone: Evqfzcooqw note* Diagnosis Missed menses Missed menses , [...] (HHS-HCC) Encounter for follow-up ultrasound of anatomy ([facility]) [facility] Type Assessment Date No Information [facility] Work Phone: Evaluation note* Diagnosis Size [...] gestational diabetes method of control unspecified (HHS-HCC) Elevated glucose tolerance test Impaired glucose tolerance test induced hypertension, antepartum (HHS-HCC) Transient hypertension of , antepartum [facility]* Diagnosis Third trimester (HHS-HCC) state, incidental 33 weeks gestation of (HHS-HCC) documented [facility] this encounter [facility]* Clinical Note Date No Information [facility] Work Phone: History of Past illness Narrative* Condition Effective Dates (start - stop) O utcome No Information [facility] Work Phone: Hospital Discharge instructions No data available for this section [facility] Date Instruction Additional Infor mation No Information [facility] Work Phone: InstructionsNot on filedocumented in this encounter [facility]Not on filedocumented in this encounter [facility] No data available for this section [facility] Clinical Note Date No Information [facility] Work Phone: Reason for referral (narrative) Referred by: JOAQUÍN RODRIGUEZ-[facility] [place] Reason for referral (narrative)* Reason For Referral No Information [facility] Work Phone: Review of systems Narrative - Reported* System Pos/Neg Findings No Information [facility] Work Phone: Summary Purpose Family History [...] and content) DATE CREATED AUTHOR 02/16/[address] [facility] DATE CREATED AUTHOR AUTHOR'S ORGANIZ ATION 02/24/2022 [facility] DATE CREATED AUTHOR AUTHOR'S ORGANIZ ATION 04/20/2024 [facility] DATE CREATED AUTHOR AUTHOR'S ORGANIZ ATION 04/30/2024 [facility] DATE CREATED AUTHOR AUTHOR'S ORGANIZ ATION 08/26/2024 [facility] DATE CREATED AUTHOR AUTHOR'S ORGANIZ ATION 10/26/2024 [facility] Specialists EPIC Care Team (unrecognized sect ion [...] BE BASED ON THE PRIMARY CLINICAL RECORDS. [facility] [employer] [facility]. provides no warranty or guarantee of the accuracy or completeness of information in this document.
--- OUTSIDE RECORDS SUMMARY | 2024-10-27 12:56 | XMS_ITS | Encounter Summary ---
Author Organization [facility] Address [id number] [address] [place] [address] Care Team Providers Care Office Professionals Name Role Phone Unavailable Primary Care Provider Unavailabl e Encounter Details Date Type Department Care Team (Late st Contact Info) Description 10/18/2024 Documentation [facility]- [facility] at [place] [address] [place] [phone] Krista Cruz RN [address] [address] Social History Tobacco Use Types Packs/Day Years [...]
--- OUTSIDE RECORDS SUMMARY | 2024-10-27 12:56 | XMS_ITS | Encounter Summary ---
Author Organization [facility] Address [address] [place] [address] Care Team Providers Care Assistant Offset Press Operator Name Role Phone Unavailable Primary Care Provider Unavailabl e Encounter Details Date Type Department Care Team (Late Contact Info) Description 05/31/2024 Abstract GREG MANZANO [facility] [place] [address] Zack Ortiz DO [facility] [address], [facility] Social History Tobacco Use Types Packs/Day [...] 10/31/2024 1:40 PM EDT Routine GREG MANZANO [facility] [place] [address] Zack Ortiz DO [address] [place] [address] documented as of this encounter Visit Diagnoses Not on filedocumented in this encounter
[2024-10-27 13:31] VITALS: BP 125/79; PULSE 73
--- NOTE | 2024-10-27 13:41 | US_ITS ---
[place] [id number] Patient Name: DORIAN RICHMOND MRN: [id number] date: 1995 Sex: F Assigned Patient Location: [facility] Current Patient Location: [facility] Accession/Order Number: [id number] Exam Date: 10/27/2024 13:45 Report Date: 10/27/2024 14:42 At the request of: LUCÍA LEDESMA DO Procedure: US OB BPP w non-stress Ultrasound biophysical profile HISTORY: Gestational diabetes Adequate breathing movement, gross body movement, tone and amniotic fluid volume for total score of 8 out of 8. The amniotic fluid index is 12.0cm within normal limits. The heart rate 138 bpm. US/US OB BPP w non-stress IMPRESSION: Adequate ultrasound biophysical profile Impression dictated by: Robi Tan M.D. 10/27/2024 2:42 PM Dictation Location: [place] [address] Electronically authenticated by: [id number] Y Date: 10/27/2024 14:42
--- NOTE | 2024-10-27 13:41 | US_ITS ---
[address] [address] Patient Name: DORIAN RICHMOND MRN: [id number] date: 1995 Sex: F Assigned Patient Location: [facility] Current Patient Location: [facility] Accession/Order Number: [id number] Exam Date: 10/27/2024 13:45 Report Date: 10/27/2024 14:41 At the request of: LUCÍA LEDESMA DO Procedure: US OB placenta Limited ultrasound HISTORY: Gestational diabetes. Assessment of the placenta. Fetus is in breech presentation with longitudinal lie. The amniotic fluid measures 12.0 cm within normal limits. Largest pocket measures up to 3.7 cm. The placenta is in the anterior position. A grade 2 placenta appearance.. heart rate 138 bpm. Somatic motion identified. Gestational age 34 weeks 2 days with estimated delivery 12/06/2024. US/US OB placenta IMPRESSION: Grade 2 to borderline grade 3 placental appearance. Impression dictated by: Robi Tan M.D. 10/27/2024 2:41 PM Dictation Location: [place] Electronically authenticated by: [id number] Y Date: 10/27/2024 14:41
== END 2024-10-27 16:02 | disposition home or self-care (01) ==
LOC: FBCO 12:53 → FBC 12:54
PROVIDERS: Visit Provider Obstetrics & Gynecology
DX: O24.419 Gestational diabetes mellitus in pregnancy, unspecified control (principal); O36.5930 Maternal care for other known or suspected poor fetal growth, third trimester, not applicable or unspecified; O14.93 Unspecified pre-eclampsia, third trimester; Z3A.34 34 weeks gestation of pregnancy
CPT/HCPCS: 59025; 76815; 76818; 76820